=== PATIENT | female | born 1975 | race Caucasian/White ===

== ENCOUNTER 2022-02-08 08:26 | Outpatient (REF) | payer OTHER, SELFPAY ==
--- NOTE | 2022-02-08 08:31 | EMG_ITS ---
Bilateral median and ulnar motor and sensory studies were performed. Bilateral radial and sensory studies were performed and paraspinal muscles were tested. IMPRESSION: 1. Moderately severe bilateral median neuropathy across carpal tunnel. 2. Mild bilateral ulnar neuropathy across cubital tunnel. MD LIZ Shelton/JARAD / [id number]
== END 2022-02-08 08:27 | disposition home or self-care (01) ==
LOC: HO.NEURO 08:26
PROVIDERS: Visit Provider Internal Medicine
DX: G56.03 Carpal tunnel syndrome, bilateral upper limbs (principal)
CPT/HCPCS: 95886; 95911

== ENCOUNTER → 2022-04-05 11:00 | Outpatient (BNVA) | payer OTHER, SELFPAY | PROVIDERS: PCP Internal Medicine; Visit Provider Counselor Mental Health | DX: F98.8 Other specified behavioral and emotional disorders with onset usually occurring in childhood and adolescence (principal); F41.9 Anxiety disorder, unspecified; F32.A Depression, unspecified; E66.01 Morbid (severe) obesity due to excess calories | CPT/HCPCS: 90791 ==

== ENCOUNTER → 2022-04-19 14:49 | Outpatient (BNVA) | payer OTHER, SELFPAY | PROVIDERS: PCP Internal Medicine; Visit Provider Dietitian, Registered | DX: E66.01 Morbid (severe) obesity due to excess calories (principal); Z68.43 Body mass index [BMI] 50.0-59.9, adult | CPT/HCPCS: 97802 ==

== ENCOUNTER 2022-04-26 08:46 | Outpatient (REF) | payer OTHER, SELFPAY ==
--- NOTE | ~2022-04-26 | XR_ITS ---
EXAMINATION: XR CHEST CLINICAL INFORMATION: Preoperative evaluation. COMPARISON: 11/05/2017. TECHNIQUE: 2 views of the chest were obtained. FINDINGS: No significant abnormality is noted involving the heart, lungs, mediastinum, bony thorax or soft tissues. XR/XR chest 2V IMPRESSION: No acute cardiopulmonary findings. Stable chest x-ray compared to 11/05/2017.
--- NOTE | 2022-04-26 09:13 | ECG_ITS ---
Test Reason : z01.818 Blood Pressure : / mmHG Vent. Rate : 110 BPM Atrial Rate : 110 BPM P-R Int : 158 ms QRS Dur : 098 ms QT Int : 338 ms P-R-T Axes : 069 -33 068 degrees QTc Int : 457 ms Sinus tachycardia Left axis deviation Abnormal ECG When compared with ECG of 30-APR-2018 08:25, QRS axis Shifted left Heart rate has increased Referred By: Nina Beverly Electronically Signed By:ALBINO BOWLES
[2022-04-26 09:14] LABS: MANUAL DIFF FLAG NO
[2022-04-26 09:49] LABS: Basophils Absolute Auto 0.1 X10*3/uL (0.0-0.2); Basophils Percent Auto 0.5 % (0-2); Eosinophils Absolute Auto 0.3 X10*3/uL (0.0-0.4); Hematocrit 39.3 % (37.0-47.0); Hemoglobin 12.6 g/dl (12.0-16.0); Imm Gran Abs Auto 0.22 X10*3/uL (0.00-0.03); Imm Gran Pct Auto 1.5 % (0.0-0.4); Lymphocytes Absolute Auto 3.5 X10*3/uL (1.2-4.9); Lymphocytes Percent Auto 23.7 % (20-40); Mean Corpuscular HGB Conc 32.1 g/dl (31.0-35.0); Mean Corpuscular Hemoglobin 28.3 pg (27.0-33.0); Mean Corpuscular Volume 88.1 fL (80.0-98.0); Mean Platelet Volume 9.5 fL (9.4-12.3); Monocytes Absolute Auto 0.8 X10*3/uL (0.1-1.2); Monocytes Percent Auto 5.7 % (2-11); Neutrophils Absolute Auto 9.7 x10*3/uL (2.0-8.3); Neutrophils Percent Auto 66.6 % (45-73); Platelet Count 434 X10*3/uL (160-400); Red Blood Count 4.46 X10*6/uL (4.20-5.50); Red Cell Distribution Width 13.8 % (11.0-16.0); White Blood Count 14.6 X10*3/uL (4.8-10.8)
[2022-04-26 10:06] LABS: Estimated Average Glucose 235 mg/dL; Hemoglobin A1c % 9.8 %
[2022-04-26 10:10] LABS: Alanine Aminotransferase 18 U/L (0-31); Albumin Level 4.1 g/dL (3.5-5.0); Alkaline Phosphatase 111 U/L (39-117); Anion Gap 17 (12-20); Aspartate Amino Transferase 21 U/L (5-31); Bilirubin Total 0.9 mg/dL (0.0-1.0); Blood Urea Nitrogen 14 mg/dL (9-16); C Reactive Protein 3.94 mg/dL (< or = 0.50); Calcium 9.3 mg/dL (8.4-10.2); Carbon Dioxide 24 mmol/L (22-29); Chloride 97 mmol/L (96-108); Cholesterol 115 mg/dL; Estimated Glomerular Filt Rate > 60; Glucose Random 248 mg/dL (60-115); HDL Cholesterol 34 mg/dL; Iron 73 mcg/dL (30-160); LDL Cholesterol Calculated 64 mg/dl; Percent Iron Saturation 29 % (15-50); Potassium 4.3 mmol/L (3.3-5.1); Sodium 134 mmol/L (135-145); Total Iron Binding Capacity 252 mcg/dL (228-428); Total Protein 8.1 g/dL (6.5-8.0); Triglycerides 86 mg/dL; Unsaturated Iron Binding 179 ug/dL
[2022-04-26 10:38] LABS: Folate 13.5 ng/mL (> or = 4.0); Vitamin B12 356 pg/mL (200-900)
[2022-04-26 10:39] LABS: Ferritin 266 ng/mL (10-250); TSH reflex Free T4 1.12 uIU/mL (0.32-4.0); Vitamin D 25-OH Total 16.5 ng/mL (>30)
[2022-04-26 11:17] LABS: Insulin 22 uU/mL (2-29)
[2022-04-27 13:31] LABS: Calcium (PTHI) 9.3 mg/dL (8.6-10.2); PTHI 57 pg/mL (16-77)
[2022-04-30 14:06] LABS: Vitamin B1 <6 nmol/L (8-30)
[2022-04-30 19:21] LABS: Zinc 60 mcg/dL (60-130)
[2022-05-01 17:22] LABS: Vitamin A 26 mcg/dL (38-98)
== END 2022-04-26 08:47 | disposition home or self-care (01) ==
LOC: HO.LAB 08:46
PROVIDERS: PCP Internal Medicine; Visit Provider Physician Assistant
DX: Z01.818 Encounter for other preprocedural examination (principal); E11.9 Type 2 diabetes mellitus without complications; E66.01 Morbid (severe) obesity due to excess calories; E78.5 Hyperlipidemia, unspecified; G47.33 Obstructive sleep apnea (adult) (pediatric); I10 Essential (primary) hypertension; K21.9 Gastro-esophageal reflux disease without esophagitis; Z99.89 Dependence on other enabling machines and devices
CPT/HCPCS: 36415; 71046; 80053; 80061; 82306; 82607; 82728; 82746; 83036; 83525; 83540; 83970; 84425; 84443; 84590; 84630; 85025; 86140; 93005

== ENCOUNTER 2022-05-08 15:55 | Outpatient (REF) | payer OTHER, SELFPAY ==
[2022-05-10 13:03] LABS: H Pylori Breath Test Negative (Negative)
== END 2022-05-08 15:56 | disposition home or self-care (01) ==
LOC: HO.LNP 15:55
PROVIDERS: Visit Provider Physician Assistant
DX: Z01.818 Encounter for other preprocedural examination (principal)
CPT/HCPCS: 83013

== ENCOUNTER → 2022-05-09 07:21 | Outpatient (REF) | payer OTHER, SELFPAY ==
--- NOTE | 2022-05-09 07:24 | CA_ITS ---
Transthoracic Echocardiogram Patient (Last, First, Middle): Julia López, Gender: Female Date of : 1975 Age: 46 Procedure Date: 05/09/2022 Procedure Type: Transthoracic Echocardiogram Location: OP Height: 175.26 cm Weight: 160.57 kg BSA: 2.63 m2 Heart Rate: bpm BP: 115 / 70 mmHg Remnants Cutter: TO Referring MD: Nina Beverly PA-C [employer]: Chad Cheney MD Symptoms: R94.31 - Abnormal electrocardiogram [ECG] [EKG] Study Quality: Technically Difficult/Contrast ECG Rhythm: Sinus Conclusions: - 1. Normal LV systolic function with impaired relaxation filling pattern next 2. Mildly dilated left atrium 3. Mild mitral and calcification with normal cardiac valvular Doppler 4. Normal RV systolic pressure 5. No gross pericardial effusion Findings Procedure Information Contrast agent, definity, is being given per protocol without apparent complications. The quality of the study was technically difficult. The study quality is limited by patients body habitus. Left Ventricle Normal left ventricular size and systolic function. There is mildly increased left ventricular wall thickness. The visually estimated ejection fraction is between 60-65%. Spectral Doppler is indicative of an impaired relaxation filling pattern. E/E prime ratio is between 8 and 15 consistent with indeterminate filling pressures. Right Ventricle Normal right ventricular cavity size and systolic function. Atria The left atrium is mildly dilated. Interatrial shunt cannot be excluded. The right atrium is normal in size. Aortic Valve The aortic valve was not well visualized. The aortic valve structure and function is likely normal. There is no aortic valve stenosis. There is no aortic valve regurgitation. Mitral Valve There is mild anterior and posterior mitral leaflet thickening. There is mild mitral annular calcification. There is trace mitral valve regurgitation. There is no mitral valve stenosis. Pulmonic Valve The pulmonic valve was not well visualized. Tricuspid Valve Likely normal tricuspid valve structure and function. There is mild tricuspid valve regurgitation. The right ventricular systolic pressure is normal. The right ventricular systolic pressure is 27 mmHg. Normal right atrial pressure. There is no evidence of pulmonary hypertension. Great Vessels All visible segments of the aorta are normal in size. The pulmonary artery was not well visualized. Venous The inferior vena cava is normal in size and collapses greater than 50% with inspiration. Pericardium/Pleural There is no evidence of pericardial effusion. Prior Study Comparison No significant change compared to prior study dated: 04/30/2018. Measurements 2D Linear Measurements IVSd: 1.19 0.6-0.9/0.6-1.0 cm LVIDd: 4.92 3.9-5.3/4.2-5.9 cm LVIDd Index: 1.87 2.4-3.2/2.2-3.1 cm/m2 LVIDs: 3.34 2.0-3.6 cm LVPWd: 1.21 0.7-1.1 cm LA Diam: 3.50 2.7-3.8/3.0-4.0 cm LAIDs Index: 1.33 1.5-2.3 cm/m2 LV Mass: 284.05 67-162/88-224 g LV Mass Index: 108.00 43-95/49-115 g/m2 LVOT Diam: 2.20 3.0+(-)1.3 cm 2D Systolic Function EF 4C: 65.80 >55% EF 2C: 60.60 >55% EF BiP: 62.30 >55% Mitral Valve MV Pk E: 0.85 MV PK A: 0.97 MV Decel Time: 106.00 E/A: 0.90 E'Lateral: 8.92 E'Medial: 6.20 E/E' Med: 13.60 E/E' Lat: 9.50 PHT: 31.00 MVA PHT: 7.10 Decel [place]: 7.96 Aortic Valve AoV Pk Surjit: 1.35 AoV Mn Surjit: 1.01 AoV VTI: 0.25 AoV Pk Grad: 7.00 Aov Mn Grad: 4.00 HOMER Cont.VTI: 2.74 LVOT LVOT Pk Surjit: 1.05 LVOT Mn Surjit: 0.75 LVOT VTI: 0.18 LVOT Pk Grad: 4.00 LVOT Mn Grad: 3.00 LVOT Diam: 2.20 LVOT Area: 3.80 Diastolic Function MV Pk E: 0.85 MV Pk A: 0.97 E/A: 0.90 E'Medial: 6.20 E/E' Med: 13.60 E' Laterial: 8.92 E/E' Lat: 9.50 Right Ventricle TAPSE (mm): 20.70 TVS' Surjit: 13.60 Tricuspid Valve TR Pk Surjit: 2.43 TR Pk Grad: 24.00 RA Press: 3.00 RVSP: 27.00 Great Vessels Aorta Sinus of Valsalva: 3.57 2.0-3.5 cm Ao Asc: 3.20 2.1-3.4 cm Updated in Other Vendor System with Status of Final Chda Cheney MD electronically signed on 05/09/2022 5:30:32 PM with status of Final
== END ==
LOC: HO.CARD 07:21
PROVIDERS: Visit Provider Physician Assistant
DX: R94.31 Abnormal electrocardiogram [ECG] [EKG] (principal); I10 Essential (primary) hypertension
CPT/HCPCS: 36415; 83013; 93306; Q9957

== ENCOUNTER → 2022-05-16 14:35 | Outpatient (BNVA) | payer OTHER, SELFPAY | PROVIDERS: PCP Internal Medicine; Visit Provider Dietitian, Registered | DX: E66.01 Morbid (severe) obesity due to excess calories (principal); Z68.43 Body mass index [BMI] 50.0-59.9, adult | CPT/HCPCS: 97803 ==

== ENCOUNTER → 2022-05-22 07:57 | Outpatient (REF) | payer OTHER, SELFPAY ==
--- NOTE | ~2022-05-22 | NM_ITS ---
Lexiscan Myocardial perfusion study Indication: Preoperative cardiovascular evaluation Technique: The patient was brought in for a Lexiscan perfusion study on 05/22/2022 and was injected 0.4 mg of Lexiscan intravenously. Within a minute of this injection 45 mCi of sestamibi was given intravenously. Images were obtained using the SPECT gamma camera interlaced with the gating device. Images were obtained in supine position. Resting perfusion study was performed on 05/23/2022. Patient was administered 45 mCi of sestamibi intravenously at rest. Images were then obtained in supine position. Images were processed with the software and compared side to side in short axis, horizontal long axis and vertical long axis views. Total DLP 222mGy-cm. Findings: Raw acquisition reviewed. The stress perfusion study showed no significant perfusion abnormality. Both uncorrected as well as CT attenuation corrected images were reviewed. The gated study shows normal LV systolic function with calculated LVEF of 53%. LV cavity is normal in size. The gated study shows normal wall thickening and contraction of segments. Resting study shows no significant perfusion abnormality. Gating at rest reveals normal wall motion with ejection fraction at 60%. The findings are consistent with no reversible or fixed perfusion abnormality. NM/NM cardiolite stress test Impression: 1. Myocardial perfusion imaging study shows normal myocardial perfusion. No clear evidence of any ischemia or infarction. 2. Gated LVEF is 53% during stress and 60% during rest. 3. Transient ischemic dilatation not present. EKG component of the test reported separately.
--- NOTE | 2022-05-22 08:00 | CA_ITS ---
Acquisition Time: 2022-05-22 08:08:23 Total Exercise Time: 00:02:00 Test Indications: Abnormal ECG Medications: ATORVASTATIN BUPROPION DULAGUTIDE LISINOPRIL APRIMILTANT Protocol: LEXISCAN Max HR: 123 BPM 70% of Pred: 175 BPM Max BP: 124/078 mmHG Max Work Load: 1.0 METS Pharmacological stress test with Lexiscan injection, while sitting and kicking her legs, without anginal symptoms, without arrythmia, with normotensive response to injection, with nondiagnostic EKG for ischemia. In recovery she reported lightheadedness that was treated with Aminophylline 75mg IVP to reverse Lexiscan with resolution of symptom. Nuclear images pending. Test reviewed with Dr Prado. Referred By: Nina Beverly Overread By: SRUTHI WETZEL
== END ==
LOC: HO.CARD 07:57
PROVIDERS: Visit Provider Physician Assistant
DX: R94.31 Abnormal electrocardiogram [ECG] [EKG] (principal); E66.01 Morbid (severe) obesity due to excess calories; E11.9 Type 2 diabetes mellitus without complications; E78.5 Hyperlipidemia, unspecified; G47.33 Obstructive sleep apnea (adult) (pediatric); I10 Essential (primary) hypertension; K21.9 Gastro-esophageal reflux disease without esophagitis; Z99.89 Dependence on other enabling machines and devices
CPT/HCPCS: 78452; 93017; A9500; J0280; J2785

== ENCOUNTER → 2022-05-24 14:05 | Outpatient (BNVA) | payer OTHER, SELFPAY | PROVIDERS: PCP Internal Medicine; Referring Provider Internal Medicine; Visit Provider Internal Medicine Cardiovascular Disease | DX: Z01.810 Encounter for preprocedural cardiovascular examination (principal); R94.31 Abnormal electrocardiogram [ECG] [EKG] | CPT/HCPCS: 93005 ==

== ENCOUNTER → 2022-08-20 14:42 | Outpatient (BNVA) | payer OTHER, SELFPAY | PROVIDERS: PCP Internal Medicine; Visit Provider Physician Assistant | DX: Z98.84 Bariatric surgery status (principal) ==

== ENCOUNTER → 2022-09-20 16:30 | Outpatient (BNVA) | payer OTHER, SELFPAY | PROVIDERS: PCP Internal Medicine; Visit Provider Physician Assistant | DX: Z13.89 Encounter for screening for other disorder (principal) ==

== ENCOUNTER 2022-11-12 10:21 | Outpatient (REF) | payer OTHER, SELFPAY ==
--- NOTE | ~2022-11-12 | US_ITS ---
EXAMINATION: US COMPLETE ABDOMEN WITH LIVER ELASTOGRAPHY CLINICAL INFORMATION: Encounter for other preprocedural examination. COMPARISON: None available. TECHNIQUE: Real-time imaging of the abdominal viscera. Noninvasive ultrasound liver fibrosis assessment is performed using Jeff ElastPQ point quantification shear wave elastography (2D-SWE) with a C5-2 MHz transducer. Multiple elastography samples are obtained. FINDINGS: PANCREAS: The visualized pancreatic head and body have a slightly lobulated contour and are echogenic. The remainder of the pancreas is obscured from visualization by the overlying bowel gas. ABDOMINAL AORTA: The proximal, middle, and distal aortic segments are normal in caliber. INFERIOR VENA CAVA: Visualized portions are normal. LIVER: The liver demonstrates normal size, contour and increased echogenicity. No focal lesion or intrahepatic biliary duct dilatation. The right lobe measures 14.3 cm in length. The left lobe measures 10.7 cm in length. Portal flow is hepatopedal. Shear wave liver elastography median stiffness is 1.96 m/s (reference: normal median stiffness is 1.3 m/s or less). IQR/median stiffness to assess sampling precision is 0.02 (reference: good quality data set is IQR/median stiffness of 0.15 or less). GALLBLADDER: The gallbladder has been surgically removed. COMMON BILE DUCT: Normal in caliber measuring 0.5 cm in diameter. RIGHT KIDNEY: Normal. No hydronephrosis. No renal calculi or focal parenchymal lesions. The kidney measures 13.2 cm in maximum dimension. LEFT KIDNEY: Normal. No hydronephrosis. No renal calculi or focal parenchymal lesions. The kidney measures 11.8 cm in maximum dimension. SPLEEN: Normal. The spleen measures 13.1 cm in maximum dimension. FREE FLUID: None. US/US abdomen comp w elastography IMPRESSION: 1. Mild hepatic steatosis without focal lesion. 2. Cholecystectomy. 3. Liver elastography: Median liver stiffness measures 1.96 m/s corresponding to cACLD (suggestive). REFERENCE: Society of Radiologists in Ultrasound Liver Stiffness Thresholds (2020): LIVER STIFFNESS THRESHOLDS: *Liver Stiffness equal or less than 1.3 m/s: High probability of being normal. *Liver Stiffness less than 1.7 m/s: In the absence of other known clinical signs, rules out compensated advanced chronic liver disease. *Liver Stiffness 1.7-2.1 m/s: Suggestive of compensated advanced chronic liver disease but need further test for confirmation. *Liver Stiffness over 2.1 m/s: Rules in compensated advanced chronic liver disease. *Liver Stiffness over 2.4 m/s: Suggestive of clinically significant portal hypertension. QUALITY OF DATA SET: *IQR/Median value equal or less than 0.15 implies a quality data set. *IQR/Median value over 0.15 implies a poor quality data set. SIGNIFICANT CHANGE FROM PRIOR EXAM: Significant change if liver stiffness measurement is 10% or greater from prior exam. OTHER CONSIDERATIONS: The stage of liver fibrosis may be overestimated in the setting of acute hepatitis, liver inflammation, elevated liver function tests, hepatic vascular congestion, obstructive cholestasis, non-fasting state, and infiltrative diseases such as amyloidosis and lymphoma. In some patients with NAFLD, the liver stiffness thresholds for compensated advanced chronic liver disease may be lower. In causes other than viral hepatitis and NAFLD, liver stiffness thresholds are not well established.
== END 2022-11-12 10:22 | disposition home or self-care (01) ==
LOC: HO.US 10:21
PROVIDERS: PCP Internal Medicine; Visit Provider Physician Assistant
DX: Z01.818 Encounter for other preprocedural examination (principal); E66.01 Morbid (severe) obesity due to excess calories; I10 Essential (primary) hypertension; K21.9 Gastro-esophageal reflux disease without esophagitis
CPT/HCPCS: 76705; 76981

== ENCOUNTER 2022-11-13 13:00 | Outpatient (REF) | payer OTHER, SELFPAY ==
[2022-11-13 13:58] LABS: Estimated Average Glucose 166 mg/dL; Hemoglobin A1c % 7.4 %
== END 2022-11-13 13:01 | disposition home or self-care (01) ==
LOC: HO.LAB 13:00
PROVIDERS: PCP Internal Medicine; Visit Provider Physician Assistant
DX: E11.319 Type 2 diabetes mellitus with unspecified diabetic retinopathy without macular edema (principal); E66.01 Morbid (severe) obesity due to excess calories
CPT/HCPCS: 36415; 82947; 83036

== ENCOUNTER → 2022-11-26 09:30 | Outpatient (BNVA) | payer OTHER, SELFPAY | PROVIDERS: PCP Internal Medicine; Visit Provider Counselor Mental Health | DX: Z13.89 Encounter for screening for other disorder (principal) ==

== ENCOUNTER → 2022-12-03 09:00 | Outpatient (BNVA) | payer OTHER, SELFPAY | PROVIDERS: PCP Internal Medicine; Visit Provider Counselor Mental Health | DX: Z13.89 Encounter for screening for other disorder (principal) ==

== ENCOUNTER 2022-12-04 10:27 | Outpatient (REF) | payer OTHER, SELFPAY ==
--- NOTE | ~2022-12-04 | FL_ITS ---
PROCEDURE: XR FLUOROSCOPY UPPER GI WITH AIR CLINICAL INFORMATION: Obesity. Preop COMPARISON: None available. TECHNIQUE: Routine upper GI air-contrast study was performed in upright and lying position. FINDINGS: Following oral administration of thick barium and effervescent granules in upright view there is normal propagation of bolus from the oral cavity through the pharynx, esophagus into stomach without any evidence of obstruction, narrowing or stricture. On placing patient supine and prone lying the course, caliber and peristalsis of the stomach is normal. There are increased secretions in the stomach likely secondary to hyperacidity. There is a large gastroesophageal reflux without hiatal hernia. FLUOROSCOPY TIME: 1.4 minutes DOSE AREA PRODUCT: 46.442 uGy-m2 (microgray-meter squared) FL/FL upper GI w air IMPRESSION: Large gastroesophageal reflux without hiatal hernia.
== END 2022-12-04 10:28 | disposition home or self-care (01) ==
LOC: HO.XRAY 10:27
PROVIDERS: PCP Internal Medicine; Visit Provider Physician Assistant
DX: Z01.818 Encounter for other preprocedural examination (principal); E66.01 Morbid (severe) obesity due to excess calories; K21.9 Gastro-esophageal reflux disease without esophagitis; Z99.89 Dependence on other enabling machines and devices
CPT/HCPCS: 74246

== ENCOUNTER → 2022-12-10 10:05 | Outpatient (BNVA) | payer OTHER, SELFPAY | PROVIDERS: PCP Internal Medicine; Referring Provider Internal Medicine; Visit Provider Physician Assistant | DX: E11.319 Type 2 diabetes mellitus with unspecified diabetic retinopathy without macular edema (principal); E66.01 Morbid (severe) obesity due to excess calories; E11.9 Type 2 diabetes mellitus without complications ==

== ENCOUNTER → 2022-12-11 09:59 | Outpatient (BNVA) | payer OTHER, SELFPAY | PROVIDERS: PCP Internal Medicine; Visit Provider Surgery | DX: E11.319 Type 2 diabetes mellitus with unspecified diabetic retinopathy without macular edema (principal); E66.01 Morbid (severe) obesity due to excess calories; E11.9 Type 2 diabetes mellitus without complications ==

== ENCOUNTER → 2022-12-17 09:00 | Outpatient (BNVA) | payer OTHER, SELFPAY | PROVIDERS: PCP Internal Medicine; Visit Provider Counselor Mental Health ==

== ENCOUNTER → 2022-12-21 08:59 | Outpatient (BNVA) | payer OTHER, SELFPAY | PROVIDERS: PCP Internal Medicine; Visit Provider Surgery ==

== ENCOUNTER → 2022-12-24 09:00 | Outpatient (BNVA) | payer OTHER, SELFPAY | PROVIDERS: PCP Internal Medicine; Visit Provider Physician Assistant | DX: E11.319 Type 2 diabetes mellitus with unspecified diabetic retinopathy without macular edema (principal); E66.01 Morbid (severe) obesity due to excess calories; E11.9 Type 2 diabetes mellitus without complications ==

== ENCOUNTER → 2023-01-01 10:35 | Outpatient (BNVA) | payer OTHER, SELFPAY | PROVIDERS: PCP Internal Medicine; Visit Provider Surgery | DX: E11.319 Type 2 diabetes mellitus with unspecified diabetic retinopathy without macular edema (principal); E66.01 Morbid (severe) obesity due to excess calories; E11.9 Type 2 diabetes mellitus without complications; I10 Essential (primary) hypertension; E78.5 Hyperlipidemia, unspecified; G47.33 Obstructive sleep apnea (adult) (pediatric); Z99.89 Dependence on other enabling machines and devices; K21.9 Gastro-esophageal reflux disease without esophagitis ==

== ENCOUNTER → 2023-01-07 09:00 | Outpatient (BNVA) | payer OTHER, SELFPAY | PROVIDERS: PCP Internal Medicine; Visit Provider Counselor Mental Health | DX: F98.8 Other specified behavioral and emotional disorders with onset usually occurring in childhood and adolescence (principal); E66.01 Morbid (severe) obesity due to excess calories; F43.23 Adjustment disorder with mixed anxiety and depressed mood ==

== ENCOUNTER 2023-01-09 06:07 | Day surgery (SDC) | payer OTHER, SELFPAY ==
[2022-12-28 14:33] VITALS: BMI 46.5
[2023-01-01 10:22] LABS: MANUAL DIFF FLAG NO
[2023-01-01 10:55] LABS: Basophils Absolute Auto 0.1 X10*3/uL (0.0-0.2); Basophils Percent Auto 0.6 % (0-2); Eosinophils Absolute Auto 0.2 X10*3/uL (0.0-0.4); Hematocrit 44.1 % (37.0-47.0); Hemoglobin 13.8 g/dl (12.0-16.0); Imm Gran Abs Auto 0.09 X10*3/uL (0.00-0.03); Imm Gran Pct Auto 0.8 % (0.0-0.4); Lymphocytes Absolute Auto 2.8 X10*3/uL (1.2-4.9); Lymphocytes Percent Auto 25.1 % (20-40); Mean Corpuscular HGB Conc 31.3 g/dl (31.0-35.0); Mean Corpuscular Hemoglobin 27.1 pg (27.0-33.0); Mean Corpuscular Volume 86.6 fL (80.0-98.0); Mean Platelet Volume 9.2 fL (9.4-12.3); Monocytes Absolute Auto 0.6 X10*3/uL (0.1-1.2); Monocytes Percent Auto 5.5 % (2-11); Neutrophils Absolute Auto 7.4 x10*3/uL (2.0-8.3); Platelet Count 376 X10*3/uL (160-400); Red Blood Count 5.09 X10*6/uL (4.20-5.50); Red Cell Distribution Width 14.3 % (11.0-16.0); White Blood Count 11.3 X10*3/uL (4.8-10.8)
[2023-01-01 10:56] LABS: INTERNATIONAL NORM RATIO 1.1 (0.9-1.1); Prothrombin Time 12.9 SEC (10.0-13.1)
[2023-01-01 11:39] LABS: Estimated Average Glucose 148 mg/dL; Hemoglobin A1c % 6.8 %
[2023-01-01 12:31] LABS: Ferritin 192 ng/mL (10-250); TSH reflex Free T4 1.39 uIU/mL (0.32-4.0); Vitamin B12 505 pg/mL (200-900); Vitamin D 25-OH Total 23.8 ng/mL (>30)
[2023-01-01 12:43] LABS: Alanine Aminotransferase 14 U/L (0-31); Alkaline Phosphatase 85 U/L (39-117); Anion Gap 14 (12-20); Aspartate Amino Transferase 18 U/L (5-31); Bilirubin Total 0.9 mg/dL (0.0-1.0); Blood Urea Nitrogen 13 mg/dL (9-16); C Reactive Protein 2.54 mg/dL (< or = 0.50); Carbon Dioxide 28 mmol/L (22-29); Chloride 99 mmol/L (96-108); Cholesterol 101 mg/dL; Creatinine Clr Calc Pharmacy 134.3; Estimated Glomerular Filt Rate > 60; Glucose Random 141 mg/dL (60-115); HDL Cholesterol 34 mg/dL; LDL Cholesterol Calculated 53 mg/dl; Potassium 4.7 mmol/L (3.3-5.1); Sodium 136 mmol/L (135-145); Total Protein 7.9 g/dL (6.5-8.0); Triglycerides 73 mg/dL
[2023-01-02 13:39] LABS: Calcium (PTHI) 9.9 mg/dL (8.6-10.2); PTHI 32 pg/mL (16-77)
[2023-01-05 06:23] LABS: Zinc 84 mcg/dL (60-130)
[2023-01-05 15:34] LABS: Vitamin B1 <6 nmol/L (8-30)
[2023-01-06 22:19] LABS: Vitamin A 32 mcg/dL (38-98)
--- NOTE | 2023-01-08 10:00 | HO.ANESPROP2 ---
Documented by User: Brittani Reese NP 01/08/23 10:03 HPI - Anesthesia Eval Consult details Narrative: 47yo F for Gastrectomy Sleeve-EGD, Poss diaphragmatic hernia, Poss ventral hernia,Poss open. 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) Abnormal ECG (Acute) Preop cardiovascular exam (Acute) Diabetic retinopathy (Acute) Past Medical History Medical History (Updated 01/08/23 @ 10:01 by Brittani Reese NP) ADHD Anxiety and depression Diabetes mellitus Diabetic retinopathy GERD (gastroesophageal reflux disease) HTN (hypertension) with goal to be determined Hyperlipidemia Morbid obesity SOLE on CPAP Family History Family History Mother Diabetes Heart problem Father Hypertension Diabetes Surgical History Surgical History History of cholecystectomy Social History Social History Are you a primary primary care sales representative to a significant other at home: No Do you presently have visiting nurse or other home services: No Alcohol intake: never Patient Tobacco Use Status: Never used Tobacco Use of substances other than those prescribed or required for medical reasons: No Have you been hit, kicked, punched, or otherwise hurt by someone within the past year? If so, by whom?: No Are you DNR?: No Advance Directives: No Advance Directives Information Provided: Yes Advance Directives on File: No Recently lost weight without trying: No Nutrition Risks: No Nutritional Risk Patient : No FDLMP: unknown : No Poor oral hygiene: No Meds Allergies Allergy/AdvReac Type Severity Reaction Status Date / Time Penicillins Allergy Intermediate Shortness Verified 01/01/23 10:40 of Breath pt states no food allergies Allergy Unknown Unknown Uncoded 12/17/22 11:03 Home Medications Medication Instructions Recorded Confirmed Last Taken Type apremilast 30 mg tablet (Otezla) 30 mg PO BID 03/09/22 01/01/23 Unknown History bupropion HCl 300 mg 24 hr tablet, 300 mg PO DAILY 03/09/22 01/01/23 Unknown History extended release gabapentin 300 mg capsule 300 mg PO TID 03/09/22 01/01/23 Unknown History lisinopril 10 mg tablet 10 mg PO DAILY 03/09/22 01/01/23 Unknown History atorvastatin 40 mg tablet 40 mg PO DAILY 05/24/22 01/01/23 Unknown History dulaglutide 4.5 mg/0.5 mL mg subcut 05/24/22 12/24/22 Unknown History subcutaneous pen injector (Trulicity) fluoxetine 20 mg capsule 20 mg PO DAILY 05/24/22 01/01/23 Unknown History lorazepam 1 mg tablet 1 mg PO DAILY PRN Anxiety 05/24/22 01/01/23 Unknown History lisdexamfetamine 70 mg capsule 70 mg PO DAILY 11/12/22 01/01/23 Unknown History (Vyvanse) empagliflozin 10 mg tablet 10 mg PO DAILY 11/13/22 12/28/22 Unknown History (Jardiance) insulin regular hum U-500 conc 500 See Rx Instructions subcut .COMPLEX 12/24/22 01/01/23 Unknown History unit/mL(3 mL) subcut pen (Humulin R U-500 (Conc) Insulin Kwikpen) albuterol sulfate 90 mcg/actuation 2 puff inhalation QID PRN 12/28/22 01/01/23 Unknown History aerosol inhaler Shortness Of Breath Or Wheezing melatonin 10 mg tablet 10 mg PO BEDTIME PRN Insomnia 12/28/22 01/01/23 Unknown History Exam Exam Date and Time: January 08, 2023 1000 Height,Weight and Vital Signs: Height 5 ft 9 in Weight 142.882 kg Pertinent Lab Results Pertinent Lab Results: Laboratory Tests 01/01/23 01/01/23 01/01/23 10:20 10:20 10:20 WBC 11.3 H RBC 5.09 Hgb 13.8 Hct 44.1 MCV 86.6 MCH 27.1 MCHC 31.3 RDW 14.3 Plt Count 376 MPV 9.2 L Immature Gran % (Auto) 0.8 H Neut % (Auto) 66.0 Lymph % (Auto) 25.1 [place] % (Auto) 5.5 Eos % (Auto) 2.0 Baso % (Auto) 0.6 Lymph # (Auto) 2.8 [place] # (Auto) 0.6 Eos # (Auto) 0.2 Baso # (Auto) 0.1 Abs Immat Gran (auto) 0.09 H Absolute Neuts (auto) 7.4 Absolute Nucleated RBC 0.000 Nucleated RBC % (auto) 0.0 PT 12.9 INR 1.1 APTT 35.0 Sodium 136 Potassium 4.7 Chloride 99 Carbon Dioxide 28 Anion Gap 14 BUN 13 Creatinine 0.80 Estim Creat Clear Calc 134.3 Estimated GFR > 60 Random Glucose 141 H Estimat Average Glucose Hemoglobin A1c % Calcium 10.0 D Ferritin 192 Total Bilirubin 0.9 AST 18 ALT 14 Alkaline Phosphatase 85 C-Reactive Protein 2.54 H Total Protein 7.9 Albumin 4.0 Triglycerides 73 Cholesterol 101 LDL Cholesterol, Calc 53 HDL Cholesterol 34 Vitamin A Vitamin B1 Vitamin B12 505 25-OH Vitamin D Total 23.8 TSH 1.39 PTH Intact Calcium (PTH Intact) Zinc Blood Type Antibody Screen 01/01/23 01/01/23 01/01/23 10:20 10:20 10:20 WBC RBC Hgb Hct MCV MCH MCHC RDW Plt Count MPV Immature Gran % (Auto) Neut % (Auto) Lymph % (Auto) [place] % (Auto) Eos % (Auto) Baso % (Auto) Lymph # (Auto) [place] # (Auto) Eos # (Auto) Baso # (Auto) Abs Immat Gran (auto) Absolute Neuts (auto) Absolute Nucleated RBC Nucleated RBC % (auto) PT INR APTT Sodium Potassium Chloride Carbon Dioxide Anion Gap BUN Creatinine Estim Creat Clear Calc Estimated GFR Random Glucose Estimat Average Glucose 148 Hemoglobin A1c % 6.8 Calcium Ferritin Total Bilirubin AST ALT Alkaline Phosphatase C-Reactive Protein Total Protein Albumin Triglycerides Cholesterol LDL Cholesterol, Calc HDL Cholesterol Vitamin A 32 L Vitamin B1 <6 L Vitamin B12 25-OH Vitamin D Total TSH PTH Intact 32 Calcium (PTH Intact) 9.9 Zinc Blood Type Antibody Screen 01/01/23 01/01/23 10:20 10:22 WBC RBC Hgb Hct MCV MCH MCHC RDW Plt Count MPV Immature Gran % (Auto) Neut % (Auto) Lymph % (Auto) [place] % (Auto) Eos % (Auto) Baso % (Auto) Lymph # (Auto) [place] # (Auto) Eos # (Auto) Baso # (Auto) Abs Immat Gran (auto) Absolute Neuts (auto) Absolute Nucleated RBC Nucleated RBC % (auto) PT INR APTT Sodium Potassium Chloride Carbon Dioxide Anion Gap BUN Creatinine Estim Creat Clear Calc Estimated GFR Random Glucose Estimat Average Glucose Hemoglobin A1c % Calcium Ferritin Total Bilirubin AST ALT Alkaline Phosphatase C-Reactive Protein Total Protein Albumin Triglycerides Cholesterol LDL Cholesterol, Calc HDL Cholesterol Vitamin A Vitamin B1 Vitamin B12 25-OH Vitamin D Total TSH PTH Intact Calcium (PTH Intact) Zinc 84 Blood Type O Positive Antibody Screen NEGATIVE Narrative Narrative: EKG 05/2022 ?Sinus tachycardia 100 beats per minute, left axis deviation, QTC 471 milliseconds. ECHO 05/2022 Conclusions: - 1. Normal LV systolic function with impaired relaxation filling pattern next 2. Mildly dilated left atrium ? 3. Mild mitral and calcification with normal cardiac valvular? ? Doppler? 4. Normal RV systolic pressure ? 5. No gross pericardial effusion ? NM cardiolite stress test 05/2022 Impression: ? 1.? Myocardial perfusion imaging study shows normal myocardial perfusion. No clear evidence of any ischemia or infarction. 2.? Gated LVEF is 53% during stress and 60% during rest. 3. Transient ischemic dilatation not present. ? EKG component of the test reported separately. Assessment and Plan Assessment Anesthesia Assessment: Chart Reviewed Documented by User: Ranjit Wiley MD 01/09/23 08:24 [facility] Past Medical History Medical History (Updated 01/08/23 @ 10:01 by Brittani Reese NP) ADHD Anxiety and depression Diabetes mellitus Diabetic retinopathy GERD (gastroesophageal reflux disease) HTN (hypertension) with goal to be determined Hyperlipidemia Morbid obesity SOLE on CPAP Patient : No Family History Family History Mother Diabetes Heart problem Father Hypertension Diabetes Family history of problems with anesthesia: No Surgical History Surgical History History of cholecystectomy History of Problems with Anesthesia: No Social History Social History Are you a primary primary care sales representative to a significant other at home: No Do you presently have visiting nurse or other home services: No Alcohol intake: never Patient Tobacco Use Status: Never used Tobacco Use of substances other than those prescribed or required for medical reasons: No Have you been hit, kicked, punched, or otherwise hurt by someone within the past year? If so, by whom?: No Are you DNR?: No Advance Directives: No Advance Directives Information Provided: Yes Advance Directives on File: No Recently lost weight without trying: No Nutrition Risks: No Nutritional Risk Patient : No FDLMP: unknown : No Poor oral hygiene: No Meds Allergies Allergy/AdvReac Type Severity Reaction Status Date / Time Penicillins Allergy Intermediate Shortness Verified 01/01/23 10:40 of Breath pt states no food allergies Allergy Unknown Unknown Uncoded 12/17/22 11:03 Home Medications Medication Instructions Recorded Confirmed Last Taken Type apremilast 30 mg tablet (Otezla) 30 mg PO BID 03/09/22 01/01/23 Unknown History bupropion HCl 300 mg 24 hr tablet, 300 mg PO DAILY 03/09/22 01/01/23 Unknown History extended release gabapentin 300 mg capsule 300 mg PO TID 03/09/22 01/01/23 Unknown History lisinopril 10 mg tablet 10 mg PO DAILY 03/09/22 01/01/23 Unknown History atorvastatin 40 mg tablet 40 mg PO DAILY 05/24/22 01/01/23 Unknown History dulaglutide 4.5 mg/0.5 mL mg subcut 05/24/22 12/24/22 Unknown History subcutaneous pen injector (Trulicity) fluoxetine 20 mg capsule 20 mg PO DAILY 05/24/22 01/01/23 Unknown History lorazepam 1 mg tablet 1 mg PO DAILY PRN Anxiety 05/24/22 01/01/23 Unknown History lisdexamfetamine 70 mg capsule 70 mg PO DAILY 11/12/22 01/01/23 Unknown History (Vyvanse) empagliflozin 10 mg tablet 10 mg PO DAILY 11/13/22 12/28/22 Unknown History (Jardiance) insulin regular hum U-500 conc 500 See Rx Instructions subcut .COMPLEX 12/24/22 01/01/23 Unknown History unit/mL(3 mL) subcut pen (Humulin R U-500 (Conc) Insulin Kwikpen) albuterol sulfate 90 mcg/actuation 2 puff inhalation QID PRN 12/28/22 01/01/23 Unknown History aerosol inhaler Shortness Of Breath Or Wheezing melatonin 10 mg tablet 10 mg PO BEDTIME PRN Insomnia 12/28/22 01/01/23 Unknown History Exam Airway Mallampati Class: I TM Dist: >3cm Neck ROM: Full Heart: ok Lungs: ok Assessment and Plan Assessment Anesthesia Assessment: Anesthesia Plan Discussed Final Anesthetic Review Family History of Problems with Anesthesia: No History of Problems with Anesthesia: No NPO: Yes ASA Class: III Final Preanesthetic Review: No Changes in Pt Med Stat, Meds/Allgs Chart Reviewed, Consent Obtained/Reviewed and Anes Risks/Benef Reviewed Patient Risk: High Procedure Risk: Intermediate Anesthetic Plan Anesthetic Plan: GA and Agree w/ Assess. and Plan Disposition: Standard PACU
[2023-01-08 14:49] LABS: COVID-19 Test Negative (Negative); IDNOW Serial# 9DB6401D
--- NOTE | 2023-01-08 16:52 | MHC.SHP ---
Pre-Procedural Eval Section A Date of Service: 01/08/23 The patient is an INPATIENT: Yes The History & Physical has been completed within 30 days and I have reviewed it.: Yes Section B Chief Complaint: Morbid (severe) obesity due to excess calories Allergies: Allergies Allergy/AdvReac Type Severity Reaction Status Date / Time Penicillins Allergy Intermediate Shortness Verified 01/01/23 10:40 of Breath pt states no food allergies Allergy Unknown Unknown Uncoded 12/17/22 11:03 Plan I have reviewed the history and physical and performed a pertinent physical examination on my patient. No changes have occurred unless specified. Time Spent With Patient Time: Total time managing care of this patient today ____ minutes.
--- NOTE | 2023-01-08 16:53 | P.OP_ITS ---
Operative Note Operative Note Date of Service: 01/09/23 Narrative: Preop diagnosis: [Morbid obesity, obstructive sleep apnea, type 2 diabetes, hypertension, NAFLD, hyperlipidemia] Postop diagnosis: [Metastatic adenocarcinoma to the liver, possibly biliary primary to the live; left upper quadrant adhesive disease/scar tissue;, GERD and gastritis were noted on EGD] Procedure: [Diagnostic laparoscopy, lysis of adhesions, intraoperative EGD with biopsies] Surgeon: Darci Sanders MD Assist: [Katlin Pineda PA-C] Anesthesia: [GET, Marcaine, 0.5% with epi] Estimated blood loss: [3cc] Specimen: [1) liver nodules from the left lobe of the liver; EGD biopsies: Antrum and gastric body] Intraoperative findings: [1) 3 separate left liver lobe nodules ranging in size from 3-6 mm were encountered and biopsied. Frozen section demonstrated adenocarcinoma, possibly consistent with biliary primary; extensive left upper quadrant adhesions were noted requiring lysis of adhesions for 27 minutes] Indications: [The patient is a 47-year-old woman with a longstanding struggle with obesity that has been refractory to medical management. She presented to the surgical weight loss program with a BMI of 55.1/373.9 and reports her heaviest weight is 404 lb. She presented with the aforementioned comorbidities with an interest in bariatric surgery. After reviewing options and providing Education resulted in affective weight loss, the patient wanted to proceed with a laparoscopic sleeve gastrectomy, possible hiatal hernia repair, intraoperative upper endoscopy and possible ventral hernia repair. We reviewed the inherent risks of this procedure which include, but are not limited to: Bleeding that could require another operation or blood transfusion; the inherent risks of transfusion reaction infectious disease from blood transfusions; the risk of staple line leaks that could cause sepsis, multi-system organ failure and ; the risk of mesenteric or deep vein thrombosis of the lower extremities that could cause a fatal pulmonary embolism was reviewed; the risk of GERD that could require conversion to gastric bypass was discussed; the risk of recurrent hiatal hernia, especially in the setting of weight regain was reviewed. The risk of weight regain if maladaptive eating and sedentary behavior continue was discussed. The importance of proper diet and increased activity to augment surgical weight loss and the fact that no operation would result in weight loss of poor dietary decisions and sedentary behavior are resumed were discussed at length and apparently understood. The patient had the option of having an senior power plant operator present and declined this option.] Procedure: [The patient was identified in the preoperative holding area and again an operating suite 6. The patient denied interval change to her history and was placed supine on the table after confirming her identity. She was induced in general endotracheal anesthesia administered with excellent effect. A footboard was utilized and appropriate time-out performed. She was widely prepped and draped in the usual manner using chlorprep. Preemptive local was used at all trocar insertion sites. I began in the patient's left upper quadrant after raising a skin wheal, made a stab incision and placed a Veress needle without incident. An appropriate drop test was performed and a pneumoperitoneum was obtained with carbon dioxide to 15 mmHg. Preemptive local was again used in the epigastrium and the 5 mm 0 degree scope used over an Optiview trocar to access the abdomen without incident. The Veress needle was examined and it missed extensive adhesions in the left upper quadrant. Addit ional 5 mm ports to facilitate lysis of adhesions was performed over 27 minutes to demonstrate the patient's anatomy. The remaining 5 mm ports were placed without incident and the epigastric port upsized to a 12 mm. Patient was then positioned in reverse Trendelenburg and the abdomen examined. In the left lobe of the liver, a 6 mm hard, exophytic growth was noted. A smaller satellite lesion approximately 3 mm and is separate 3 mm nodule by the falciform ligament were all noted. A small 3 mm nodule was also noted in the right lobe of the liver. Given their gross morphology, concern for malignancy/neoplasia was raised and biopsies were performed with frozen section. During the time frame, dissection was begun at the esophageal fat pad which was freed up to demonstrate In communication with Dr. Lebron, the frozen section demonstrated adenocarcinoma was concerning for possible biliary primary. Given this, the bariatric procedure was aborted and the patient was returned to neutral position and the 12 mm trocar closed with a suture Passer and 0 Polysorb suture. At this point I broke scrub to perform an on-table EGD to assess for gastroesophageal or duodenal etiology to the adenocarcinoma. The Olympus 160 gastroscope was inserted per os manually without difficulty under direct vision. Bilious drainage was noted in the stomach. Z-line was at about 38 cm and irregular consistent with GERD but no hiatal hernias noted. Scope was advanced around the 2nd portion of the duodenum and the NPO Will was identified and photographed in grossly appeared normal as did the duodenum and duodenal bulb. Gastritis was noted in the antrum and body and biopsies were performed with cold forceps to assess for significant pathology. After retro flexing to examine the lesser curve, anterior, posterior gastric wall in fundus, the scope was returned to neutral, used to assess for hemostasis and the stomach deflated. The scope was then withdrawn and the remaining esophagus appeared grossly normal. Patient tolerated the procedures well and was sent to PACU in stable condition. All sponge needle instrument counts were correct x2 CEA and CA 19 9 were ordered in PACU. At the patient's request, I contacted her ex-, Corbin at [phone] to brief him a on the operation as the patient requested. Corbin noted that he was present with the patient's father in the hospital and I met with them an a consultation room; I explained the unexpected findings and need to determine a primary. His questions answered and plan to determine the primary was discussed and apparently understood.]
[2023-01-09] VITALS (13 sets, daily range): BP systolic 112–134; BP diastolic 61–73; PULSE 78–101; RESP 16; TEMP 36.3–36.6; O2SAT 97–100
[2023-01-09 06:30] LABS: UPreg QC Valid YES; Urine Pregnancy NEGATIVE (NEGATIVE)
[2023-01-09] MEDS: Aprepitant 32 MG/4.4 ML VIAL IVPUSH (06:50)
[2023-01-09] MEDS: Lactated Ringers 1,000 ML 150 ML IVCONT (06:52)
[2023-01-09 07:01] LABS: Glucose, Whole Blood 142 mg/dL (60-115)
--- NOTE | 2023-01-09 11:33 | PM.EVENT ---
Event Note Date of Service: 01/09/23 Event Note: I met with the patient in PACU and explained the unexpected findings of several small adenocarcinoma in her left liver lobe and 1 in the right. I explained that when an unexpected malignancy is encountered we do not recommend bariatric surgery but rather finding the primary malignancy since finding the cancer earlier increases the risk of survival and cure. Patient's questions seemed to be satisfactorily answered and she believes that she will be more comfortable at home. Explained about pain management and diet. I also explained that, occasionally additional testing on biopsies is required which may take longer than 1 week. She seemed understand and is cleared for discharge home. Time Spent With Patient Time: Total time managing care of this patient today ____ minutes.
[2023-01-09 11:35] LABS: Carcinoembryonic Antigen < 1.73 ng/mL
[2023-01-11 12:08] LABS: Carbohydrate Antigen 19-9 14 U/mL (<34)
== END 2023-01-09 13:05 | disposition home or self-care (01) ==
LOC: HO.SSS 06:07 → HO.SSSA 10:32 → HO.SSS 15:26
PROVIDERS: Nurse Practitioner; Physician Assistant Surgical; PCP Internal Medicine; Visit Provider Surgery
PROC: (CPT 43845; principal; 2023-01-09 07:30)
DX: E66.01 Morbid (severe) obesity due to excess calories (principal); Z68.42 Body mass index [BMI] 45.0-49.9, adult; Z53.09 Procedure and treatment not carried out because of other contraindication; D13.4 Benign neoplasm of liver; K56.50 Intestinal adhesions [bands], unspecified as to partial versus complete obstruction; K29.50 Unspecified chronic gastritis without bleeding; E78.5 Hyperlipidemia, unspecified; G47.33 Obstructive sleep apnea (adult) (pediatric); I10 Essential (primary) hypertension; E11.319 Type 2 diabetes mellitus with unspecified diabetic retinopathy without macular edema; K21.9 Gastro-esophageal reflux disease without esophagitis; K76.0 Fatty (change of) liver, not elsewhere classified; K29.70 Gastritis, unspecified, without bleeding; Z79.4 Long term (current) use of insulin; Z99.89 Dependence on other enabling machines and devices; Z88.0 Allergy status to penicillin; Z79.899 Other long term (current) drug therapy; Z90.49 Acquired absence of other specified parts of digestive tract; Z20.822 Contact with and (suspected) exposure to COVID-19
CPT/HCPCS: 43775; 47379; 43239; 49329; 36415; 80053; 80061; 81025; 82306; 82378; 82607; 82728; 82947; 83036; 83970; 84425; 84443; 84590; 84630; 85025; 85610; 85730; 86140; 86301; 86850; 86900; 86901; 87635; 88161; 88305; 88307; 88313; 88331; 88333; 88341; 88342; 88360; C9145; J0131; J1170; J1956; J2250; J2405; J3010

== ENCOUNTER → 2023-01-14 09:00 | Outpatient (BNVA) | payer OTHER, SELFPAY | PROVIDERS: PCP Internal Medicine; Visit Provider Counselor Mental Health | DX: F98.8 Other specified behavioral and emotional disorders with onset usually occurring in childhood and adolescence (principal); E66.01 Morbid (severe) obesity due to excess calories; F43.23 Adjustment disorder with mixed anxiety and depressed mood ==

== ENCOUNTER → 2023-01-17 11:10 | Outpatient (BNVA) | payer OTHER, SELFPAY | PROVIDERS: PCP Internal Medicine; Visit Provider Surgery ==

== ENCOUNTER → 2023-01-28 10:00 | Outpatient (BNVA) | payer OTHER, SELFPAY | PROVIDERS: PCP Internal Medicine; Visit Provider Counselor Mental Health | DX: F90.2 Attention-deficit hyperactivity disorder, combined type (principal); F43.20 Adjustment disorder, unspecified ==

== ENCOUNTER → 2023-02-04 10:00 | Outpatient (BNVA) | payer OTHER, SELFPAY | PROVIDERS: PCP Internal Medicine; Visit Provider Counselor Mental Health | DX: F98.8 Other specified behavioral and emotional disorders with onset usually occurring in childhood and adolescence (principal); E66.01 Morbid (severe) obesity due to excess calories; F43.23 Adjustment disorder with mixed anxiety and depressed mood ==

== ENCOUNTER 2023-02-11 11:10 | Outpatient (AMB) | payer OTHER, SELFPAY ==
--- NOTE | 2023-02-11 11:14 | A.OFFWM_ITS ---
Intake Intake Visit Reasons: VIDEO f/u Allergies Penicillins Allergy (Intermediate, Verified 01/17/23 11:40) Shortness of Breath pt states no food allergies Allergy (Unknown, Uncoded 01/14/23 10:21) Unknown [facility] Medical History (Updated 01/17/23 @ 17:15 by Cata Rinaldi MD) Adenocarcinoma determined by biopsy of liver ADHD Anxiety and depression Diabetes mellitus Diabetic retinopathy GERD (gastroesophageal reflux disease) HTN (hypertension) with goal to be determined Hyperlipidemia Morbid obesity SOLE on CPAP Surgical History History of cholecystectomy Family History Mother Diabetes Heart problem Father Hypertension Maternal Grandmother Primary cancer of bone marrow Maternal Grandfather Prostate cancer Social History Are you a primary interior plant caretaker to a significant other at home: No Do you presently have visiting nurse or other home services: No Alcohol intake: never Patient Tobacco Use Status: Never used Tobacco Behavioral Health Assessment Weight Management Therapy Therapy Notes Details -PT presents for a f/up counseling session as part of mental health support at weight management program. -PT reports she is reconsidering her decision about getting bariatric surgery. INTERVENTIONS: cognitive processing therapy. Processed doubts and factors around decision for not getting surgery. validatd and normalized feelings. Explored options and encouraged PT to share her concerns and ask about options to [facility]- Provider. RESPONSE: Engaged, involved. PLAN: continue sessions every 1-2 weeks. Presenting Concerns Referral Source MH provider from [facility]. Reason for referral Continue counseling support as part of weight-loss surgery process and due to current MH challenges. Precipitating Event Pt reports she has been adjusting to several losses in past years. In June, her dog passed and since then its been hard to cope with grief Sx. She also was w/out ADHD meds for a short period of time, then medication had to be changed and she's adjusting to a new medication. 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 We will support client with 3 main goals: 1) improve organization methods, 2)develop/engage in exercise rout ine at least 3-4 times per week and 3) Grief/adjusting to life changes. Telehealth Telehealth Location of provider rendering services: other ([facility], [place], [place]) Location of patient: address on file Patient Identification confirmed using: Name, : Yes Telehealth method: video Patient verbally consented to treatment: Yes Patient verbally consented to billing insurance company: Yes Patient informed of any privacy concerns related to visit: Yes Minutes spent on Phone/Video with Pt.: 60 Coding Level of Care Code Established Pt Tele Psytx >53 mins ([id number]) Patient Type Established Diagnoses ADHD F90.2 Attention deficit-hyperactivity disorder type: combined inattentive- hyperactive Adjustment disorder F43.22 Adjustment disorder type: with anxious mood Time Spent (min) 60
== END 2023-02-11 12:06 | disposition home or self-care (01) ==
LOC: HO.HBST 11:10
PROVIDERS: PCP Internal Medicine; Visit Provider Counselor Mental Health
DX: F90.2 Attention-deficit hyperactivity disorder, combined type (principal); F43.22 Adjustment disorder with anxiety
CPT/HCPCS: 90837

== ENCOUNTER → 2023-02-11 11:10 | Outpatient (BNVA) | payer OTHER, SELFPAY | PROVIDERS: PCP Internal Medicine; Visit Provider Counselor Mental Health | DX: F98.8 Other specified behavioral and emotional disorders with onset usually occurring in childhood and adolescence (principal); E66.01 Morbid (severe) obesity due to excess calories; F43.23 Adjustment disorder with mixed anxiety and depressed mood ==

== ENCOUNTER 2023-02-18 09:00 | Outpatient (AMB) | payer SELFPAY ==
--- NOTE | 2023-02-18 13:03 | MHC.WMTHER ---
Intake Intake Visit Reasons: VIDEO f/u Allergies Penicillins Allergy (Intermediate, Verified 01/17/23 11:40) Shortness of Breath pt states no food allergies Allergy (Unknown, Uncoded 01/14/23 10:21) Unknown [facility] Medical History (Updated 01/17/23 @ 17:15 by Cata Rinaldi MD) Adenocarcinoma determined by biopsy of liver ADHD Anxiety and depression Diabetes mellitus Diabetic retinopathy GERD (gastroesophageal reflux disease) HTN (hypertension) with goal to be determined Hyperlipidemia Morbid obesity SOLE on CPAP Surgical History History of cholecystectomy Family History Mother Diabetes Heart problem Father Hypertension Maternal Grandmother Primary cancer of bone marrow Maternal Grandfather Prostate cancer Social History Are you a primary director of healthcare systems to a significant other at home: No Do you presently have visiting nurse or other home services: No Alcohol intake: never Patient Tobacco Use Status: Never used Tobacco Behavioral Health Assessment Weight Management Therapy Therapy Notes Details -PT presents for a f/up counseling session as part of mental health support at weight management program. -PT reports she has been stressed and overwhelmed.. INTERVENTIONS: cognitive processing therapy. Discussed functioning and sources of stress. Problem solving strategies. Validated and normalized feelings. PT RESPONSE: Active, engaged. PT responded well to interventions. PLAN: continue sessions every 1-2 weeks. Presenting Concerns Referral Source MH provider from [facility]. Reason for referral Continue counseling support as part of weight-loss surgery process and due to current MH challenges. Precipitating Event Pt reports she has been adjusting to several losses in past years. In June, her dog passed and since then its been hard to cope with grief Sx. She also was w/out ADHD meds for a short period of time, then medication had to be changed and she's adjusting to a new medication. Assessment & Plan Assessment & Plan (1) ADHD: Code(s): F90.9 - Attention-deficit hyperactivity disorder, unspecified type Qualifiers: Attention deficit-hyperactivity disorder type: combined inattentive-hyperactive Qualified Code(s): F90.2 - Attention-deficit hyperactivity disorder, combined type (2) Adjustment disorder: Code(s): F43.20 - Adjustment disorder, unspecified Plan Pt will continue with weekly counseling sessions. We will support client with 3 main goals: 1) improve organization methods, 2)develop/engage in exercise routine at least 3-4 times per week and 3) Grief/adjusting to life changes. Telehealth Telehealth Location of provider rendering services: other ([facility], [place], [place]) Location of patient: address on file Patient Identification confirmed using: Name, : Yes Telehealth method: video Patient verbally consented to treatment: Yes Patient verbally consented to billing insurance company: Yes Patient informed of any privacy concerns related to visit: Yes Minutes spent on Phone/Video with Pt.: 45 Coding Level of Care Code Established Pt Tele Psytx 45 mins ([id number]) Patient Type Established Diagnoses ADHD F90.2 Attention deficit-hyperactivity disorder type: combined inattentive-hyperactive Adjustment disorder F43.20 Time Spent (min) 45 Comment 9:15-10:00am
== END 2023-02-18 13:02 | disposition home or self-care (01) ==
LOC: HO.HBST 10:45
PROVIDERS: PCP Internal Medicine; Visit Provider Counselor Mental Health
DX: F90.2 Attention-deficit hyperactivity disorder, combined type (principal); F43.20 Adjustment disorder, unspecified
CPT/HCPCS: 90834

== ENCOUNTER → 2023-02-18 09:00 | Outpatient (BNVA) | payer SELFPAY | PROVIDERS: PCP Internal Medicine; Visit Provider Counselor Mental Health | DX: F98.8 Other specified behavioral and emotional disorders with onset usually occurring in childhood and adolescence (principal); E66.01 Morbid (severe) obesity due to excess calories; F43.23 Adjustment disorder with mixed anxiety and depressed mood ==

== ENCOUNTER 2023-03-11 09:00 | Outpatient (AMB) | payer OTHER, SELFPAY ==
--- NOTE | 2023-03-13 10:21 | A.OFFWM_ITS ---
Intake Intake Visit Reasons: VIDEO f/u Allergies Penicillins Allergy (Intermediate, Verified 01/17/23 11:40) Shortness of Breath pt states no food allergies Allergy (Unknown, Uncoded 01/14/23 10:21) Unknown [facility] Medical History (Updated 01/17/23 @ 17:15 by Cata Rinaldi MD) Adenocarcinoma determined by biopsy of liver ADHD Anxiety and depression Diabetes mellitus Diabetic retinopathy GERD (gastroesophageal reflux disease) HTN (hypertension) with goal to be determined Hyperlipidemia Morbid obesity SOLE on CPAP Surgical History History of cholecystectomy Family History Mother Diabetes Heart problem Father Hypertension Maternal Grandmother Primary cancer of bone marrow Maternal Grandfather Prostate cancer Social History Are you a primary chronic care nurse to a significant other at home: No Do you presently have visiting nurse or other home services: No Alcohol intake: never Patient Tobacco Use Status: Never used Tobacco Behavioral Health Assessment Weight Management Therapy Therapy Notes Details -PT presents for a f/up counseling session -PT reports she has gained some weight and since has been out of WM-meal plan has had sugar spikes and other illness-related symptoms have been bothering her. INTERVENTIONS: Reflective listening, processed struggles/triggers. Gently confront behaviors/consequences and barriers to remain consistent. Created a coping plan and identified ways how seh can start again engaging in behaviors that will lead to achieve personal/health goals. CBT-based interventions were used. PT RESPONSE: Active, engaged, cooperative. PLAN: Pt continues feeling unsure about if bariatric surgery is the right move for her, but after she resolves insurance issues she will set up a f/up jase with [facility]-provider and discuss fears/options and create a plan. Presenting Concerns Referral Source MH provider from [facility]. Reason for referral Continue counseling support as part of weight-loss surgery process and due to current MH challenges. Precipitating Event Pt reports she has been adjusting to several losses in past years. In June, her dog passed and since then its been hard to cope with grief Sx. She also was w/out ADHD meds for a short period of time, then medication had to be changed and she's adjusting to a new medication. Assessment & Plan Assessment & Plan (1) ADHD: Code(s): F90.9 - Attention-deficit hyperactivity disorder, unspecified type Qualifiers: Attention deficit-hyperactivity disorder type: combined inattentive- hyperactive Qualified Code(s): F90.2 - Attention-deficit hyperactivity disorder, combined type (2) Adjustment disorder: Code(s): F43.20 - Adjustment disorder, unspecified Plan Pt will continue with weekly counseling sessions. We will support client with 3 main goals: 1) improve organization methods, 2)develop/engage in exercise routine at least 3-4 times per week and 3) Grief/adjusting to life changes. Telehealth Telehealth Location of provider rendering services: other ([facility], [place], [place]) Location of patient: address on file Patient Identification confirmed using: Name, : Yes Telehealth method: video Patient verbally consented to treatment: Yes Patient verbally consented to billing insurance company: Yes Patient informed of any privacy concerns related to visit: Yes Minutes spent on Phone/Video with Pt.: 45 Coding Level of Care Code Established Pt Tele Psytx 45 mins ([id number]) Patient Type Established Diagnoses ADHD F90.2 Attention deficit-hyperactivity disorder type: combined inattentive- hyperactive Adjustment disorder F43.20 Time Spent (min) 45 Comment 9:30-10:15AM.
== END 2023-03-13 10:29 | disposition home or self-care (01) ==
LOC: HO.HBST 12:04
PROVIDERS: PCP Internal Medicine; Visit Provider Counselor Mental Health
DX: F90.2 Attention-deficit hyperactivity disorder, combined type (principal); F43.20 Adjustment disorder, unspecified
CPT/HCPCS: 90834

== ENCOUNTER → 2023-03-11 09:00 | Outpatient (BNVA) | payer OTHER, SELFPAY | PROVIDERS: PCP Internal Medicine; Visit Provider Counselor Mental Health | DX: F98.8 Other specified behavioral and emotional disorders with onset usually occurring in childhood and adolescence (principal); E66.01 Morbid (severe) obesity due to excess calories; F43.23 Adjustment disorder with mixed anxiety and depressed mood ==

== ENCOUNTER 2023-03-18 09:12 | Outpatient (AMB) | payer OTHER, SELFPAY ==
--- NOTE | 2023-03-18 09:43 | A.OFFWM_ITS ---
Intake Intake Visit Reasons: VIDEO f/u Allergies Penicillins Allergy (Intermediate, Verified 03/19/23 09:55) Shortness of Breath pt states no food allergies Allergy (Unknown, Uncoded 01/14/23 10:21) Unknown [facility] Medical History (Updated 01/17/23 @ 17:15 by Cata Rinaldi MD) Adenocarcinoma determined by biopsy of liver Diabetic retinopathy Anxiety and depression GERD (gastroesophageal reflux disease) OSLE on CPAP ADHD Hyperlipidemia HTN (hypertension) with goal to be determined Diabetes mellitus Morbid obesity Surgical History History of cholecystectomy Family History Mother Diabetes Heart problem Father Hypertension Maternal Grandmother Primary cancer of bone marrow Maternal Grandfather Prostate cancer Social History Are you a primary child adolescent care to a significant other at home: No Do you presently have visiting nurse or other home services: No Alcohol intake: never Patient Tobacco Use Status: Never used Tobacco Behavioral Health Assessment Weight Management Therapy Therapy Notes Details PT presents for a f/up. PT reports been doing better with her health, sleeping better. INTERVENTION: Active listening, processed health challenges, needs and progress. Gently reflect/challenge on goals for weight-loss. Provided support with sx management. RESPONSE: Engaged, cooperative. Presenting Concerns Referral Source MH provider from [facility]. Reason for referral Continue counseling support as part of weight-loss surgery process and due to current MH challenges. Precipitating Event Pt reports she has been adjusting to several losses in past years. In June, her dog passed and since then its been hard to cope with grief Sx. She also was w/out ADHD meds for a short period of time, then medication had to be changed and she's adjusting to a new medication. Assessment & Plan Assessment & Plan (1) ADHD: Code(s): F90.9 - Attention-deficit hyperactivity disorder, unspecified type Qualifiers: Attention deficit-hyperactivity disorder type: combined inattentive- hyperactive Qualified Code(s): F90.2 - Attention-deficit hyperactivity disorder, combined type (2) Adjustment disorder: Code(s): F43.20 - Adjustment disorder, unspecified Plan Pt will continue with weekly counseling sessions. We will support client with 3 main goals: 1) improve organization methods, 2)develop/engage in exercise routine at least 3-4 times per week and 3) Grief/adjusting to life changes. Telehealth Telehealth Location of provider rendering services: other (Home office, [place], [place]) Location of patient: address on file Patient Identification confirmed using: Name, : Yes Telehealth method: video Patient verbally consented to treatment: Yes Patient verbally consented to billing insurance company: Yes Patient informed of any privacy concerns related to visit: Yes Minutes spent on Phone/Video with Pt.: 60 Coding Level of Care Code Established Pt Tele Psytx >53 mins ([id number]) Patient Type Established Diagnoses Attention deficit hyperactivity disorder (ADHD), combined type F90.2 Attention deficit-hyperactivity disorder type: combined inattentive- hyperactive Adjustment disorder F43.20 Time Spent (min) 60 Comment 9:00-10:00AM
== END 2023-03-18 11:12 | disposition home or self-care (01) ==
LOC: HO.HBST 09:12
PROVIDERS: PCP Internal Medicine; Visit Provider Counselor Mental Health
DX: F90.2 Attention-deficit hyperactivity disorder, combined type (principal); F43.20 Adjustment disorder, unspecified
CPT/HCPCS: 90837

== ENCOUNTER → 2023-03-18 09:12 | Outpatient (BNVA) | payer OTHER, SELFPAY | PROVIDERS: PCP Internal Medicine; Visit Provider Counselor Mental Health | DX: F98.8 Other specified behavioral and emotional disorders with onset usually occurring in childhood and adolescence (principal); E66.01 Morbid (severe) obesity due to excess calories; F43.23 Adjustment disorder with mixed anxiety and depressed mood ==

== ENCOUNTER 2023-03-19 09:49 | Outpatient (AMB) | payer OTHER, SELFPAY ==
--- NOTE | 2023-03-19 09:52 | A.OFFVIS_ITS ---
Intake Vital Signs 03/19/23 09:58 Height 5 ft 9 in Weight 337 lb 11.971 oz BMI 49.9 BP 112/60 Blood Pressure Location Lt brachial Position Sitting Pulse 94 Pulse Source Pulse Oximeter Intake Visit Reasons: f/u Type 2 DM Intake Note: Patient present today to follow up on Type 2 Diabetes Mellitus. 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 Random Glucose:231 mg/dl HgA1C: 6.8% 01/01/23 Candy Department Manager Required: No Accompanied by: Self / Same As Patient Allergies Penicillins Allergy (Intermediate, Verified 03/19/23 09:55) Shortness of Breath pt states no food allergies Allergy (Unknown, Uncoded 01/14/23 10:21) Unknown Medication List - Last Reconciled 03/19/23 by Jean Esparza MD acetaminophen 480 mg (15 mL) PO Q6H PRN albuterol sulfate 90 mcg/actuation 2 puffs inhalation QID PRN apremilast (Otezla) 30 mg PO BID atorvastatin 40 mg PO DAILY blood-glucose sensor (Xplore MobilityStyle Alexei 3 Sensor device) As directed change every 14 days bupropion HCl 300 mg PO DAILY dulaglutide (Trulicity) 4.5 mg subcut QWEEK fluoxetine 20 mg PO DAILY gabapentin 300 mg PO TID insulin regular hum U-500 conc (Humulin R U-500 (Conc) Insulin Kwikpen) 0 units am, 10 units pm subcutaneously if over 200; lisdexamfetamine (Vyvanse) 70 mg PO DAILY lisinopril 10 mg PO DAILY lorazepam 1 mg PO DAILY PRN melatonin 10 mg PO BEDTIME PRN HPI HPI Comments History of Present Illness Details 47 YO F who is seen in consultation for T2DM at the request of PCP. Initially diagnosed with T2DM in 2003 . previously saw endo at [facility] up to 2 yrs ago Was initially started on treatment with metformin .Was tolerated it . Took Jardiance in past and tolerated Current regimen Trulicity 4.5 mg Qwkly not taking for 2 mos Humulin U-500 insulin 20 units in AM, 20 units before dinner . Jardiance 10 mg not taking Per the CGM Alexei CGMS is active 84 % of time . Avg glucose is 205 . Variability of 39.9 The patient's blood sugars were in target 45% of the time, above target 55% of the time, and below target 0% of the time Rare Hypoglycemia Family history of T2DM in mother, sister , aunts . Has eyes checked yearly, last eye exam 1 mo ago ago , has retinopathy gets injections . Has neuropathy, not sees podiatry. Denies nephropathy, on KRISTAL/ARB. Has HLD, on statin. Denies CAD. Had diabetes education at [facility] . Going for bariatric surgery here at [facility] Medical History (Updated 01/17/23 @ 17:15 by Cata Rinaldi MD) Adenocarcinoma determined by biopsy of liver ADHD Anxiety and depression Diabetes mellitus Diabetic retinopathy GERD (gastroesophageal reflux disease) HTN (hypertension) with goal to be determined Hyperlipidemia Morbid obesity SOLE on CPAP Surgical History History of cholecystectomy Family History Mother Diabetes Heart problem Father Hypertension Maternal Grandmother Primary cancer of bone marrow Maternal Grandfather Prostate cancer Social History Are you a primary care program director to a significant other at home: No Do you presently have visiting nurse or other home services: No Alcohol intake: never Patient Tobacco Use Status: Never used Tobacco Physical Exam Vital Signs: Last Vital Signs Pulse 94 03/19/23 09:58 BP 102/60 03/19/23 09:58 BMI result Body Mass Index 49.9 Absence of Cushingoid features. Absence of acromegalic features. Neck exam reveals nl size thyroid about 15 gms. No thyroid nodules palpable. No carotid bruits present. Lungs CTA. Heart S1 S2, Reg R/R. No M/R/ G. Skin exam reveals absence of vitiligo or acanthosis nigricans. Abdominal exam reveals Soft NT/ND with NA BS. No organomegaly present. Neck Other: . Extrem Other: Visual exam of foot performed. No ulcerations or open lesions. No onchomycosis, no callouses.Pulses 2 + distally Sensation intact to monofilament exam. Vibratory sensation sensed is decreased with 128 Hz tuning fork Assessment & Plan Assessment & Plan (1) Diabetes mellitus: Code(s): E11.9 - Type 2 diabetes mellitus without complications Plan: This is a 47-year-old female with a history of type 2 diabetes being treated with Trulicity and U-500 insulin we will appears to be poor glycemic control and known microvascular complications namely retinopathy Plan is resume the Jardiance 10 mg q.d.. Will also switch Trulicity to Mounjaro 2.5 mg Q weekly and titrate as tolerated. Went over side effects of Mounjaro including but not limited to nausea, vomiting risk pancreatitis She may proceed ahead with bariatric surgery I will alert me if she does or if she experiences significant hypoglycemia so I can adjust the U-500 insulin Mounjaro 2.5 mg samples given the patient lot number [id number] . Jardiance 10 mg samples given the patient lot number [id number] expiration 05/2025 Medications: New empagliflozin (Jardiance) 10 mg PO DAILY 30 tabs 5RF tirzepatide (Mounjaro) 2.5 mg (0.5 mL) subcut QWEEK 4 weeks 2 mL 0RF Changed From insulin regular hum U-500 conc (Humulin R U-500 (Conc) Insulin Kwikpen) 0 units am, 10 units pm subcutaneously if over 200; To insulin regular hum U-500 conc (Humulin R U-500 (Conc) Insulin Kwikpen) 20 units am, 20 units pm subcutaneously if over 200; 6 mL 5RF Coding Level of Care Code Est Pt Level 4 (09237) Diagnoses Diabetes mellitus E11.9
[2023-03-19 09:58] VITALS: BP 112/60; PULSE 94; BMI 49.9
== END 2023-03-19 10:30 | disposition home or self-care (01) ==
PROVIDERS: PCP Internal Medicine; Visit Provider Internal Medicine Endocrinology, Diabetes & Metabolism
DX: E11.9 Type 2 diabetes mellitus without complications (principal)
CPT/HCPCS: 99214

== ENCOUNTER → 2023-03-19 09:49 | Outpatient (BNVA) | payer OTHER, SELFPAY | PROVIDERS: Visit Provider Internal Medicine Endocrinology, Diabetes & Metabolism ==

== ENCOUNTER 2023-04-09 11:44 | Outpatient (REF) | payer OTHER, SELFPAY ==
--- NOTE | ~2023-04-09 | MM_ITS ---
EXAMINATION: MM SCREENING DIGITAL BREAST TOMOSYNTHESIS, BILATERAL CLINICAL INFORMATION: Screening. Asymptomatic. COMPARISON: Mammography: None. Baseline exam. TECHNIQUE: Digital breast tomosynthesis is performed in both the craniocaudal and mediolateral oblique views along with computer-aided detection (CAD). Synthesized 2D images are generated from the tomosynthesis. FINDINGS: There are scattered areas of fibroglandular density (ACR BI-RADS breast composition Category b). There are bilateral benign vascular calcifications noted. There is a focus of grouped punctate calcifications in the upper slightly inner right breast, for which magnification views recommended. No additional suspicious calcifications. No suspicious masses or areas of architectural distortion. MM/MM tomosynthesis screening BI IMPRESSION: Focus of grouped calcifications right breast upper slightly inner quadrant as detailed, for which magnification views recommended. ASSESSMENT: BI-RADS BI-RADS 0 - Incomplete: Needs additional Imaging. RECOMMENDATION: 1. Additional views of the right breast 2. Radiology department staff will contact the patient for additional imaging. Additional Imaging required This examination should not preclude the clinical evaluation of a suspicious palpable abnormality.
== END 2023-04-09 11:45 | disposition home or self-care (01) ==
LOC: HO.MAMMO 11:44
PROVIDERS: Absent Provider Internal Medicine Medical Oncology; PCP Internal Medicine; Visit Provider Internal Medicine
DX: Z12.31 Encounter for screening mammogram for malignant neoplasm of breast (principal)
CPT/HCPCS: 77063; 77067

== ENCOUNTER → 2023-04-09 11:50 | Outpatient (BNV) | payer OTHER, SELFPAY | PROVIDERS: Absent Provider Internal Medicine Medical Oncology; PCP Internal Medicine; Visit Provider Radiology Diagnostic Radiology | DX: Z12.31 Encounter for screening mammogram for malignant neoplasm of breast (principal) | CPT/HCPCS: 77063; 77067 ==

== ENCOUNTER 2023-04-24 09:15 | Outpatient (AMB) | payer OTHER, SELFPAY ==
--- NOTE | 2023-04-24 09:11 | MHC.WMTHER ---
Intake Intake Visit Reasons: VIDEO F/U Allergies Penicillins Allergy (Intermediate, Verified 03/19/23 09:55) Shortness of Breath pt states no food allergies Allergy (Unknown, Uncoded 01/14/23 10:21) Unknown [facility] Medical History (Updated 04/16/23 @ 11:19 by [employer] [place]) Adenocarcinoma determined by biopsy of liver Diabetic retinopathy Anxiety and depression GERD (gastroesophageal reflux disease) SOLE on CPAP ADHD Hyperlipidemia HTN (hypertension) with goal to be determined Diabetes mellitus Morbid obesity Surgical History History of cholecystectomy Family History Mother Diabetes Heart problem Father Hypertension Maternal Grandmother Primary cancer of bone marrow Maternal Grandfather Prostate cancer Social History Are you a primary insurance healthcare representative to a significant other at home: No Do you presently have visiting nurse or other home services: No Alcohol intake: never Patient Tobacco Use Status: Never used Tobacco Behavioral Health Assessment Weight Management Therapy Therapy Notes Details PT presents for a f/up. Last jase 1 month ago. PT reports she started the gym yesterday, she continues going trough medical exams and testing. . INTERVENTION: Active listening. Processed ongoing stressors at work and with health. Worked in stress management and provided with constructive feedback for addressing issues. Used CBT approach. RESPONSE: Pt was active and engaged in session. PLAN: f/up in about 2 weeks for counseling. PT will schedule jase with [facility] provider after getting CTscan done, as the results might change her plans. Presenting Concerns Referral Source MH provider from [facility]. Reason for referral Continue counseling support as part of weight-loss surgery process and due to current MH challenges. Precipitating Event Pt reports she has been adjusting to several losses in past years. In June, her dog passed and since then its been hard to cope with grief Sx. She also was w/out ADHD meds for a short period of time, then medication had to be changed and she's adjusting to a new medication. Assessment & Plan Assessment & Plan (1) ADHD: Code(s): F90.9 - Attention-deficit hyperactivity disorder, unspecified type Qualifiers: Attention deficit-hyperactivity disorder type: combined inattentive-hyperactive Qualified Code(s): F90.2 - Attention-deficit hyperactivity disorder, combined type (2) Adjustment disorder: Code(s): F43.20 - Adjustment disorder, unspecified Plan Pt will continue with bi-weekly counseling sessions. We will support client with 3 main goals: 1) improve organization methods, 2)develop/engage in exercise routine at least 3-4 times per week and 3) Grief/adjusting to life changes. Telehealth Telehealth Location of provider rendering services: other ([place] office, [place], [place]) Location of patient: address on file Patient Identification confirmed using: Name, : Yes Telehealth method: video Patient verbally consented to treatment: Yes Patient verbally consented to billing insurance company: Yes Patient informed of any privacy concerns related to visit: Yes Minutes spent on Phone/Video with Pt.: 60 Coding Level of Care Code Established Pt Tele Psytx >53 mins (42820) Patient Type Established Diagnoses Attention deficit hyperactivity disorder (ADHD), combined type F90.2 Attention deficit-hyperactivity disorder type: combined inattentive-hyperactive Adjustment disorder F43.20 Time Spent (min) 60
== END 2023-04-24 13:59 | disposition home or self-care (01) ==
LOC: HO.HBST 09:15
PROVIDERS: PCP Internal Medicine; Visit Provider Counselor Mental Health
DX: F90.2 Attention-deficit hyperactivity disorder, combined type (principal); F43.20 Adjustment disorder, unspecified
CPT/HCPCS: 90837

== ENCOUNTER → 2023-04-24 09:15 | Outpatient (BNVA) | payer OTHER, SELFPAY | PROVIDERS: PCP Internal Medicine; Visit Provider Counselor Mental Health ==

== ENCOUNTER 2023-04-30 14:21 | Outpatient (REF) | payer OTHER, SELFPAY ==
--- NOTE | ~2023-04-30 | MM_ITS ---
EXAMINATION: MM DIAGNOSTIC DIGITAL MAMMOGRAPHY, RIGHT CLINICAL INFORMATION: Evaluate calcifications seen on baseline screening exam 04/09/2023. COMPARISON: Mammography: 04/09/2023 TECHNIQUE: Digital mammography is performed in the following views: 2-D spot magnification right CC, right ML, and second right ML projections. FINDINGS: There are scattered areas of fibroglandular density (ACR BI-RADS breast composition Category b). There is a central group of loosely grouped round and punctate calcifications just superior and medial to the nipple line. There is mild pleomorphism although they are predominantly rounded and punctate. A few linear forms are identified. There is no layering, casting, or branching forms. Anterior to this, in the superior and lateral right breast, anterior one third, there is a larger group of calcifications which have similar morphology as the smaller group. This group could potentially lie within a segmental distribution. These calcifications are indeterminant, and 2 site stereotactic biopsy is recommended. MM/MM added views RT IMPRESSION: 2 groups of calcifications as detailed in the right breast, one group is slightly medial and one group slightly anterior and lateral, for which 2 site stereotactic biopsy is recommended. Findings and recommendations discussed with the patient in detail, who appears to understand. ASSESSMENT: BI-RADS BI-RADS 4 - Suspicious finding RECOMMENDATION: Biopsy recommended
== END 2023-04-30 14:22 | disposition home or self-care (01) ==
LOC: HO.MAMMO 14:21
PROVIDERS: PCP Internal Medicine; Visit Provider Internal Medicine
DX: R92.1 Mammographic calcification found on diagnostic imaging of breast (principal)
CPT/HCPCS: 77065

== ENCOUNTER 2023-05-08 08:26 | Outpatient (AMB) | payer OTHER, SELFPAY ==
[2023-05-08 08:32] VITALS: BP 124/59; PULSE 97; BMI 49.5
--- NOTE | 2023-05-08 08:32 | A.OFFVIS_ITS ---
Intake Vital Signs 05/08/23 08:32 Height 5 ft 9 in Weight 335 lb BMI 49.5 BP 124/59 L Blood Pressure Location Lt brachial Position Sitting Pulse 97 Intake Visit Reasons: RT breast st bx X2 calcifications Intake Note: This patient presents for an assessment for right breast stereotactic biopsy consultation for calcifications , 2 sites. Patient c/o; reports no change in breast shape or size, denies breast pain or tenderness. Contracts Paralegal Required: No Accompanied by: Self / Same As Patient Allergies Penicillins Allergy (Intermediate, Verified 05/08/23 08:39) Shortness of Breath pt states no food allergies Allergy (Unknown, Uncoded 05/08/23 08:39) Unknown HPI RT breast st bx X2 calcifications HPI Details 47-year-old female, referred for right b reast calcifications. She had undergone screening mammogram last month showing these calcifications on the left breast so she was recalled for diagnostic mammogram and the showed this loosely grouped round and punctate calcifications just superior and medial to the nipple line. Anterior to this is another area in the superior lateral right breast, anterior 1/3 with a larger group of calcifications. These 2 areas calcifications are considered to be indeterminate so stereotactic biopsy of both sites have been recommended by the radiologist. She had otherwise denies any is palpable breast masses, or nipple or skin changes Her menarche was at the age of 13. She has never been . She on Mirena so she does not have any periods She had undergone an attempt at sleeve gastrectomy last January,. However, she says that there was note of a liver lesion seen at that time so the procedure was aborted. Biopsies of this liver lesion eventually turned out to be benign. [facility] Medical History (Updated 05/07/23 @ 13:43 by Ryan Prescott MD) Breast calcification, right Adenocarcinoma determined by biopsy of liver Diabetic retinopathy Anxiety and depression GERD (gastroesophageal reflux disease) SOLE on CPAP ADHD Hyperlipidemia HTN (hypertension) with goal to be determined Diabetes mellitus Morbid obesity Surgical History History of cholecystectomy Family History Mother Diabetes Heart problem Father Hypertension Maternal Grandmother Primary cancer of bone marrow Maternal Grandfather Prostate cancer Social History Are you a primary child care lead teacher to a significant other at home: No Do you presently have visiting nurse or other home services: No Alcohol intake: never Patient Tobacco Use Status: Never used Tobacco Female Reproductive History Menstrual Age of Menarche: 13 Total pregnancies: 0 Review of Systems Const Denies chills and Denies fever(s) Card Denies chest pain, Denies dyspnea and Denies dyspnea on exertion Resp Denies cough, Denies dyspnea and Denies dyspnea on exertion GI Denies hematochezia and Denies change in bowel habits Denies hematuria Musc Denies back pain and Denies limited range of motion Neuro Denies focal weakness and Denies convulsions Psych Denies depression and Denies mood swings Physical Exam Vital Signs: Last Vital Signs Pulse 97 05/08/23 08:32 BP 124/59 L 05/08/23 08:32 BMI result Body Mass Index 49.5 Const Other: Very morbidly obese General: comfortable and no acute distress Orientation/consciousness: patient oriented x3 Neck Neck: Yes no lymphadenopathy Chest Other: No palpable breast masses, no nipple or skin changes, no axillary lymphadenopathy Resp Auscultation: clear to auscultation bilaterally Cardio Rhythm: regular rhythm GI Palpation (GI): Soft to palpation, nontender and no guarding Neuro General: patient oriented x3 Assessment & Plan Assessment & Plan (1) Breast calcification, right: Code(s): R92.1 - Mammographic calcification found on diagnostic imaging of breast Plan: She has this 2 areas of calcification on the right breast considered indeterminate and stereotactic biopsy of both areas have been recommended by the radiologist. She understands the technique of this procedure. I will see her again in the office next week to discuss the path report. Orders: Orders MM stereotactic biopsy RT 05/07/23 R92.1 - Mammographic calcification found on diagnostic imaging of breast MM stereotactic biopsy ea add 05/07/23 R92.1 - Mammographic calcification found on diagnostic imaging of breast Coding Level of Care Code New Pt Level 3 (01369) Diagnoses Breast calcification, right R92.1
== END 2023-05-08 08:58 | disposition home or self-care (01) ==
PROVIDERS: PCP Internal Medicine; Referring Provider Internal Medicine; Visit Provider Surgery
DX: R92.1 Mammographic calcification found on diagnostic imaging of breast (principal)
CPT/HCPCS: 99203

== ENCOUNTER 2023-05-08 09:03 | Outpatient (REF) | payer OTHER, SELFPAY ==
--- NOTE | ~2023-05-08 | MM_ITS ---
EXAMINATION: STEREOTACTIC TOMOSYNTHESIS-GUIDED VACUUM-ASSISTED 2 SITE BREAST BIOPSY, RIGHT SPECIMEN RADIOGRAPH, RIGHT POST PROCEDURE DIGITAL MAMMOGRAM, RIGHT CLINICAL INFORMATION: 2 site stereotactic biopsy right breast for moderately suspicious group of calcifications central slightly upper slightly lateral group of calcifications (SITE B), and more anterior upper outer group of mildly suspicious loosely grouped calcifications (SITE A). COMPARISON: Correlation made with 04/30/2023 mammography and 04/09/2023 mammography. TECHNIQUE/PROCEDURE: Informed consent was obtained from the patient after discussion of the benefits, risks, and alternatives to biopsy today. Patient appeared to understand. Gave opportunity for questions. Patient signed consent form. BIOPSY TABLE: Fair Observer Affirm Prone Biopsy System. SITE A: More anterior right upper outer group of calcifications. LESION: Grouped calcifications. LOCAL ANESTHESIA: 3 mL 1% lidocaine; 7 mL 1% lidocaine with epinephrine. DERMATOTOMY: Single skin adrian dermatotomy performed. NEEDLE: Suros Eviva 9-gauge vacuum assisted core biopsy device. APPROACH: craniocaudal. TARGETING: Combination of digital breast tomosynthesis and stereotactic digital mammography used for targeting. CORES: 7. CLIP: Top hat-shaped. SPECIMEN RADIOGRAPH: Specimen radiograph is taken in separate room using digital mammography. Numerous index calcifications are in the excised cores. SITE B: More posterior right breast slightly upper slightly medial calcifications. LESION: Grouped calcifications. LOCAL ANESTHESIA: 3 mL 1% lidocaine; 7 mL 1% lidocaine with epinephrine. DERMATOTOMY: Single skin adrian dermatotomy performed. NEEDLE: Suros Eviva 9-gauge vacuum assisted core biopsy device. APPROACH: craniocaudal. TARGETING: Combination of digital breast tomosynthesis and stereotactic digital mammography used for targeting. CORES: 5. CLIP: Buckle-shaped. SPECIMEN RADIOGRAPH: Specimen radiograph is taken in separate room using digital mammography. Numerous index calcifications are in the excised cores. Nearly all calcifications were excised. POST PROCEDURE UNILATERAL DIGITAL MAMMOGRAM: The post biopsy mammogram is performed in separate room using separate digital mammography equipment from the biopsy procedure. Right CC and ML views are obtained. There are scattered areas of fibroglandular density (breast composition category: b). Both biopsy clip markers are in expected and accurate position. No evidence of clip migration. The calcifications are markedly decreased at the biopsy sites. No hematoma or complication evident. The patient tolerated the 2 site biopsy procedure well. No immediate complications. Home instructions reviewed with the patient. Final pathology results are pending. MM/MM stereotactic biopsy ea add IMPRESSION: 1. Digital tomosynthesis-guided core biopsy 2 site right breast with dual clip placement. See details above. 2. Specimen radiograph taken and post procedure mammogram. There is satisfactory and accurate positioning of both the top hat-shaped (site A) and buckle-shaped (site B) biopsy clips. No evidence of clip migration. 3. Final pathology results pending for both sites. An addendum report will be issued with pathology on both sites.
--- NOTE | ~2023-05-08 | MM_ITS ---
EXAMINATION: STEREOTACTIC TOMOSYNTHESIS-GUIDED VACUUM-ASSISTED 2 SITE BREAST BIOPSY, RIGHT SPECIMEN RADIOGRAPH, RIGHT POST PROCEDURE DIGITAL MAMMOGRAM, RIGHT CLINICAL INFORMATION: 2 site stereotactic biopsy right breast for moderately suspicious group of calcifications central slightly upper slightly lateral group of calcifications (SITE B), and more anterior upper outer group of mildly suspicious loosely grouped calcifications (SITE A). COMPARISON: Correlation made with 04/30/2023 mammography and 04/09/2023 mammography. TECHNIQUE/PROCEDURE: Informed consent was obtained from the patient after discussion of the benefits, risks, and alternatives to biopsy today. Patient appeared to understand. Gave opportunity for questions. Patient signed consent form. BIOPSY TABLE: CEDU Affirm Prone Biopsy System. SITE A: More anterior right upper outer group of calcifications. LESION: Grouped calcifications. LOCAL ANESTHESIA: 3 mL 1% lidocaine; 7 mL 1% lidocaine with epinephrine. DERMATOTOMY: Single skin adrian dermatotomy performed. NEEDLE: Suros Eviva 9-gauge vacuum assisted core biopsy device. APPROACH: craniocaudal. TARGETING: Combination of digital breast tomosynthesis and stereotactic digital mammography used for targeting. CORES: 7. CLIP: Top hat-shaped. SPECIMEN RADIOGRAPH: Specimen radiograph is taken in separate room using digital mammography. Numerous index calcifications are in the excised cores. SITE B: More posterior right breast slightly upper slightly medial calcifications. LESION: Grouped calcifications. LOCAL ANESTHESIA: 3 mL 1% lidocaine; 7 mL 1% lidocaine with epinephrine. DERMATOTOMY: Single skin adrian dermatotomy performed. NEEDLE: Suros Eviva 9-gauge vacuum assisted core biopsy device. APPROACH: craniocaudal. TARGETING: Combination of digital breast tomosynthesis and stereotactic digital mammography used for targeting. CORES: 5. CLIP: Buckle-shaped. SPECIMEN RADIOGRAPH: Specimen radiograph is taken in separate room using digital mammography. Numerous index calcifications are in the excised cores. Nearly all calcifications were excised. POST PROCEDURE UNILATERAL DIGITAL MAMMOGRAM: The post biopsy mammogram is performed in separate room using separate digital mammography equipment from the biopsy procedure. Right CC and ML views are obtained. There are scattered areas of fibroglandular density (breast composition category: b). Both biopsy clip markers are in expected and accurate position. No evidence of clip migration. The calcifications are markedly decreased at the biopsy sites. No hematoma or complication evident. The patient tolerated the 2 site biopsy procedure well. No immediate complications. Home instructions reviewed with the patient. Final pathology results are pending. MM/MM stereotactic biopsy RT IMPRESSION: 1. Digital tomosynthesis-guided core biopsy 2 site right breast with dual clip placement. See details above. 2. Specimen radiograph taken and post procedure mammogram. There is satisfactory and accurate positioning of both the top hat-shaped (site A) and buckle-shaped (site B) biopsy clips. No evidence of clip migration. 3. Final pathology results pending for both sites. An addendum report will be issued with pathology on both sites.
[2023-05-08] MEDS: Sodium Bicarbonate 8.4% 50 MEQ/50 ML VIAL 6 MEQ SUBCUT (11:23)
[2023-05-08] MEDS: Lidocaine HCl 1 % 20 ML VIAL 8 ML SUBCUT (11:24)
[2023-05-08] MEDS: Lidocaine HCl 1% PF/Epi 1:200,000 30 ML VIAL 36 ML SUBCUT (11:26)
== END 2023-05-08 09:04 | disposition home or self-care (01) ==
LOC: HO.MAMMO 09:03
PROVIDERS: Absent Provider Internal Medicine Medical Oncology; PCP Internal Medicine; Visit Provider Surgery
DX: R92.1 Mammographic calcification found on diagnostic imaging of breast (principal)
CPT/HCPCS: 19081; 19082; 88305; A4648

== ENCOUNTER → 2023-05-08 10:00 | Outpatient (BNV) | payer OTHER, SELFPAY | PROVIDERS: Absent Provider Internal Medicine Medical Oncology; PCP Internal Medicine; Visit Provider Radiology Diagnostic Radiology | DX: R92.1 Mammographic calcification found on diagnostic imaging of breast (principal) | CPT/HCPCS: 19081; 19082 ==

== ENCOUNTER 2023-05-20 09:00 | Outpatient (AMB) | payer OTHER, SELFPAY ==
--- NOTE | 2023-05-20 09:10 | MHC.WMTHER ---
Intake Intake Visit Reasons: VIDEO BH F/U Allergies Penicillins Allergy (Intermediate, Verified 05/08/23 08:39) Shortness of Breath pt states no food allergies Allergy (Unknown, Uncoded 05/08/23 08:39) Unknown [facility] Medical History (Updated 05/07/23 @ 13:43 by Ryan Prescott MD) Breast calcification, right Adenocarcinoma determined by biopsy of liver Diabetic retinopathy Anxiety and depression GERD (gastroesophageal reflux disease) SOLE on CPAP ADHD Hyperlipidemia HTN (hypertension) with goal to be determined Diabetes mellitus Morbid obesity Surgical History History of cholecystectomy Family History Mother Diabetes Heart problem Father Hypertension Maternal Grandmother Primary cancer of bone marrow Maternal Grandfather Prostate cancer Social History Are you a primary outdoor emergency care technician to a significant other at home: No Do you presently have visiting nurse or other home services: No Alcohol intake: never Patient Tobacco Use Status: Never used Tobacco Female Reproductive History Menstrual Age of Menarche: 13 Behavioral Health Assessment Weight Management Therapy Therapy Notes Details Pt presents for a follow up. Pt reports been stressed due to situations in personal life impacting her attention and overall functioning. INTERVENTIONS: Processed sources of stress, challenges with attention and other triggering events. Validated and normalized feelings. Provided with FOCUS method for ADHD Sx/management. Worked on Sx management. Supported with decision making. RESPONSE: Engaged and active. Pt responded well to intervention. PLAN: Pt is considering get back on track for bariatric surgery. F/up in a month sfter upcoming trip. Then every 2 weeks. Assessment & Plan Assessment & Plan (1) ADHD: Code(s): F90.9 - Attention-deficit hyperactivity disorder, unspecified type Qualifiers: Attention deficit-hyperactivity disorder type: combined inattentive-hyperactive Qualified Code(s): F90.2 - Attention-deficit hyperactivity disorder, combined type (2) Adjustment disorder: Code(s): F43.20 - Adjustment disorder, unspecified Plan Pt will continue with bi-weekly counseling sessions. We will support client with 3 main goals: 1) improve organization methods, 2)develop/engage in exercise routine at least 3-4 times per week and 3) Grief/adjusting to life changes. Telehealth Telehealth Location of provider rendering services: other (Home office, [place], [place]) Location of patient: address on file Patient Identification confirmed using: Name, : Yes Telehealth method: video Patient verbally consented to treatment: Yes Patient verbally consented to billing insurance company: Yes Patient informed of any privacy concerns related to visit: Yes Minutes spent on Phone/Video with Pt.: 60 Coding Level of Care Code Established Pt Tele Psytx >53 mins (36705) Patient Type Established Diagnoses Attention deficit hyperactivity disorder (ADHD), combined type F90.2 Attention deficit-hyperactivity disorder type: combined inattentive-hyperactive Adjustment disorder F43.20 Time Spent (min) 60
== END 2023-05-20 10:00 | disposition home or self-care (01) ==
LOC: HO.HBST 09:12
PROVIDERS: PCP Internal Medicine; Visit Provider Counselor Mental Health
DX: F90.2 Attention-deficit hyperactivity disorder, combined type (principal); F43.20 Adjustment disorder, unspecified
CPT/HCPCS: 90837

== ENCOUNTER → 2023-05-20 09:00 | Outpatient (BNVA) | payer OTHER, SELFPAY | PROVIDERS: PCP Internal Medicine; Visit Provider Counselor Mental Health ==

== ENCOUNTER 2023-06-24 09:00 | Outpatient (AMB) | payer OTHER, SELFPAY ==
--- NOTE | 2023-06-24 10:13 | A.OFFWM_ITS ---
Intake Intake Visit Reasons: VIDEO BH F/U Allergies Penicillins Allergy (Intermediate, Verified 05/08/23 08:39) Shortness of Breath pt states no food allergies Allergy (Unknown, Uncoded 05/08/23 08:39) Unknown [facility] Medical History (Updated 05/07/23 @ 13:43 by Ryan Prescott MD) Breast calcification, right Adenocarcinoma determined by biopsy of liver Diabetic retinopathy Anxiety and depression GERD (gastroesophageal reflux disease) SOLE on CPAP ADHD Hyperlipidemia HTN (hypertension) with goal to be determined Diabetes mellitus Morbid obesity Surgical History History of cholecystectomy Family History Mother Diabetes Heart problem Father Hypertension Maternal Grandmother Primary cancer of bone marrow Maternal Grandfather Prostate cancer Social History Are you a primary family member caretaker to a significant other at home: No Do you presently have visiting nurse or other home services: No Alcohol intake: never Patient Tobacco Use Status: Never used Tobacco Female Reproductive History Menstrual Age of Menarche: 13 Behavioral Health Assessment Weight Management Therapy Therapy Notes Details PT presents for F/up. PT has decided to continue with WMP. INTERVENTIONS: Active listening, discussed functioning and some challenges she has been dealing with around her weight and body image. Processed triggering events and responses (thoughts/feelings). Talk therapy, worked in decision making. Feedback provided. RESPONSE: Active, engaged. Pt showed insight. PLAN: Client will continue receiving support with body image challenges and to pursue weight-loss goals. She will request an Joyce with Dr. Sanders to move forward with Surgical weight-loss program. Assessment & Plan Assessment & Plan (1) ADHD: Code(s): F90.9 - Attention-deficit hyperactivity disorder, unspecified type Qualifiers: Attention deficit-hyperactivity disorder type: combined inattentive- hyperactive Qualified Code(s): F90.2 - Attention-deficit hyperactivity disorder, combined type (2) Adjustment disorder: Code(s): F43.20 - Adjustment disorder, unspecified Plan Pt will continue with bi-weekly counseling sessions. We will support client with 3 main goals: 1) improve organization methods, 2)develop/engage in exercise routine at least 3-4 times per week and 3) Grief/adjusting to life changes. Next joyce in 2 weeks. 07/08/23 at 9am, via telehealth. Telehealth Telehealth Location of provider rendering services: other (Home office, [place], [place]) Location of patient: address on file Patient Identification confirmed using: Name, : Yes Telehealth method: video Patient verbally consented to treatment: Yes Patient verbally consented to billing insurance company: Yes Patient informed of any privacy concerns related to visit: No Minutes spent on Phone/Video with Pt.: 60 Coding Level of Care Code Established Pt Tele Psytx >53 mins (30807) Patient Type Established Diagnoses Attention deficit hyperactivity disorder (ADHD), combined type F90.2 Attention deficit-hyperactivity disorder type: combined inattentive- hyperactive Adjustment disorder F43.20 Time Spent (min) 60
== END 2023-06-24 10:00 | disposition home or self-care (01) ==
LOC: HO.HBST 09:28
PROVIDERS: PCP Internal Medicine; Visit Provider Counselor Mental Health
DX: F90.2 Attention-deficit hyperactivity disorder, combined type (principal); F43.20 Adjustment disorder, unspecified
CPT/HCPCS: 90837

== ENCOUNTER → 2023-06-24 09:00 | Outpatient (BNVA) | payer OTHER, SELFPAY | PROVIDERS: PCP Internal Medicine; Visit Provider Counselor Mental Health ==

== ENCOUNTER 2023-07-02 10:19 | Outpatient (AMB) | payer OTHER, SELFPAY ==
--- NOTE | 2023-07-02 10:24 | A.OFFVIS_ITS ---
Intake Vital Signs 07/02/23 10:27 Height 5 ft 9 in Weight 335 lb 8.697 oz BMI 49.5 BP 114/74 Blood Pressure Location Rt brachial Position Sitting Pulse 93 Pulse Source Pulse Oximeter Intake Visit Reasons: f/u Type2 DM-CONFIRMED Intake Note: Patient present today to follow up on Type 2 Diabetes Mellitus. Patient receives DME supplies: Pharmacy Last Diabetic Eye exam: 09/11/2022 Last Podiatry Visit: Does not see a [facility] Random Glucose: 177 mg/dl HgA1C: 7.9% Occupational Therapy Specialist Required: No Accompanied by: Self / Same As Patient Allergies Penicillins Allergy (Intermediate, Verified 07/02/23 10:27) Shortness of Breath pt states no food allergies Allergy (Unknown, Uncoded 07/02/23 10:27) Unknown HPI HPI Comments History of Present Illness Details 48 YO F who is seen in consultation for T2DM at the request of PCP. Initially diagnosed with T2DM in 2003 . previously saw endo at [facility] up to 2 yrs ago Was initially started on treatment with metformin .Was tolerated it . Took Jardiance in past and tolerated Current regimen Mounjaro 2.5 mg Qwkly Humulin U-500 insulin 20 units in AM, 20 units before dinner not taking . Jardiance 10 mg Unfortunately, the patient did not bring her sensor or glucometer to the follow-up appointment Rare Hypoglycemia Family history of T2DM in mother, sister , aunts . Has eyes checked yearly, last eye exam 11/2022 , has retinopathy gets injections . Has neuropathy, not sees podiatry. Denies nephropathy, on KRISTAL/ARB. Has HLD, on statin. Denies CAD. Had diabetes education at [facility] . Going for bariatric surgery here at [facility] Medical History (Updated 05/07/23 @ 13:43 by Ryan Prescott MD) Breast calcification, right Adenocarcinoma determined by biopsy of liver Diabetic retinopathy Anxiety and depression GERD (gastroesophageal reflux disease) SOLE on CPAP ADHD Hyperlipidemia HTN (hypertension) with goal to be determined Diabetes mellitus Morbid obesity Surgical History History of cholecystectomy Family History Mother Diabetes Heart problem Father Hypertension Maternal Grandmother Primary cancer of bone marrow Maternal Grandfather Prostate cancer Social History Are you a primary career development coordinator/teacher to a significant other at home: No Do you presently have visiting nurse or other home services: No Alcohol intake: never Patient Tobacco Use Status: Never used Tobacco Female Reproductive History Menstrual Age of Menarche: 13 Physical Exam Vital Signs: Last Vital Signs Pulse 93 07/02/23 10:27 BP 114/74 07/02/23 10:27 BMI result Body Mass Index 49.5 Absence of Cushingoid features. Absence of acromegalic features. Neck exam reveals nl size thyroid about 15 gms. No thyroid nodules palpable. No carotid bruits present. Lungs CTA. Heart S1 S2, Reg R/R. No M/R/ G. Skin exam reveals absence of vitiligo or acanthosis nigricans. Abdominal exam reveals Soft NT/ND with NA BS. No organomegaly present. Neck Other: . Extrem Other: Visual exam of foot performed. No ulcerations or open lesions. No onchomycosis, no callouses.Pulses 2 + distally Sensation intact to monofilament exam. Vibratory sensation sensed is decreased with 128 Hz tuning fork Results AMB Hemoglobin A1c AMB Hemoglobin A1c 7.9 % Last Edit by ANN Vinson on 07/02/23 10:49 Results Reviewed Results Reviewed: Laboratory Last Values Glucose (Clinic) 177 mg/dL (60-115) H 07/02/23 10:34 Hgb A1c (Clinic) 7.9 % (4.0-6.0) H 07/02/23 10:37 Assessment & Plan Assessment & Plan (1) Diabetes mellitus: Code(s): E11.9 - Type 2 diabetes mellitus without complications Plan: This is a 48-year-old female with a history of type 2 diabetes being treated with Trulicity and U-500 insulin we will appears to be fair glycemic control and known microvascular complications namely retinopathy Plan is To increase the Mounjaro to 5 mg Qwkly She may proceed ahead with bariatric surgery I will alert me if she does or if she experiences significant hypoglycemia so I can adjust the U-500 insulin Orders: Orders AMB Hemoglobin A1c Today E11.9 - Type 2 diabetes mellitus without complications Medications: New tirzepatide (Mounjaro) 5 mg (0.5 mL) subcut QWEEK 2 mL 5RF Discontinued tirzepatide (Mounjaro) Discontinued Reason: Doctor's Order 2.5 mg (0.5 mL) subcut QWEEK 2 mL 0RF Coding Level of Care Code Est Pt Level 4 (95132) Diagnoses Diabetes mellitus E11.9
[2023-07-02 10:27] VITALS: BP 114/74; PULSE 93; BMI 49.5
[2023-07-02 10:40] LABS: Glucose, Whole Blood 177 mg/dL (60-115)
== END 2023-07-02 10:48 | disposition home or self-care (01) ==
PROVIDERS: PCP Internal Medicine; Visit Provider Internal Medicine Endocrinology, Diabetes & Metabolism
DX: E11.9 Type 2 diabetes mellitus without complications (principal)
CPT/HCPCS: 99214

== ENCOUNTER → 2023-07-02 10:19 | Outpatient (BNVA) | payer OTHER, SELFPAY | PROVIDERS: PCP Internal Medicine; Visit Provider Internal Medicine Endocrinology, Diabetes & Metabolism | DX: E11.9 Type 2 diabetes mellitus without complications (principal); Z79.4 Long term (current) use of insulin | CPT/HCPCS: 82947; 83036 ==

== ENCOUNTER 2023-07-08 09:00 | Outpatient (AMB) | payer OTHER, SELFPAY ==
--- NOTE | 2023-07-08 09:20 | MHC.WMTHER ---
Intake Intake Visit Reasons: VIDEO BH F/U Allergies Penicillins Allergy (Intermediate, Verified 07/02/23 10:27) Shortness of Breath pt states no food allergies Allergy (Unknown, Uncoded 07/02/23 10:27) Unknown [facility] Medical History (Updated 05/07/23 @ 13:43 by Ryan Prescott MD) Breast calcification, right Adenocarcinoma determined by biopsy of liver Diabetic retinopathy Anxiety and depression GERD (gastroesophageal reflux disease) SOLE on CPAP ADHD Hyperlipidemia HTN (hypertension) with goal to be determined Diabetes mellitus Morbid obesity Surgical History History of cholecystectomy Family History Mother Diabetes Heart problem Father Hypertension Maternal Grandmother Primary cancer of bone marrow Maternal Grandfather Prostate cancer Social History Are you a primary senior care specialist to a significant other at home: No Do you presently have visiting nurse or other home services: No Alcohol intake: never Patient Tobacco Use Status: Never used Tobacco Female Reproductive History Menstrual Age of Menarche: 13 Behavioral Health Assessment Weight Management Therapy Therapy Notes Details Pt presents for a F/up. INTERVENTIONS: Discussed functioning and routine. Processed recent sources of stress and concentration challenges. Used CBT-based interventions for Sx management. Provided constructive feedback around avoidance of certain anxiety-triggering events. RESPONSE: Active. Pt responded well to interventions. PLAN: f/up again in about 2 weeks. Next jase: 07/22 at 9am - VIDEO. Assessment & Plan Assessment & Plan (1) ADHD: Code(s): F90.9 - Attention-deficit hyperactivity disorder, unspecified type Qualifiers: Attention deficit-hyperactivity disorder type: combined inattentive-hyperactive Qualified Code(s): F90.2 - Attention-deficit hyperactivity disorder, combined type (2) Adjustment disorder: Code(s): F43.20 - Adjustment disorder, unspecified Plan Pt will continue with bi-weekly counseling sessions. We will support client with 3 main goals: 1) improve organization methods, 2)develop/engage in exercise routine at least 3-4 times per week and 3) Grief/adjusting to life changes. Next jase in 2 weeks. 07/22/23 at 9am, via telehealth. Telehealth Telehealth Location of provider rendering services: other (Home office, [place], [place]) Location of patient: address on file Patient Identification confirmed using: Name, : Yes Telehealth method: video Patient verbally consented to treatment: Yes Patient verbally consented to billing insurance company: Yes Patient informed of any privacy concerns related to visit: No Minutes spent on Phone/Video with Pt.: 60 Coding Level of Care Code Established Pt Tele Psytx >53 mins (40165) Patient Type Established Diagnoses Attention deficit hyperactivity disorder (ADHD), combined type F90.2 Attention deficit-hyperactivity disorder type: combined inattentive-hyperactive Adjustment disorder F43.20
== END 2023-07-08 10:00 | disposition home or self-care (01) ==
LOC: HO.HBST 09:23
PROVIDERS: PCP Internal Medicine; Visit Provider Counselor Mental Health
DX: F90.2 Attention-deficit hyperactivity disorder, combined type (principal); F43.20 Adjustment disorder, unspecified
CPT/HCPCS: 90837

== ENCOUNTER → 2023-07-08 09:00 | Outpatient (BNVA) | payer OTHER, SELFPAY | PROVIDERS: PCP Internal Medicine; Visit Provider Counselor Mental Health ==

== ENCOUNTER 2023-07-22 09:00 | Outpatient (AMB) | payer OTHER, SELFPAY ==
--- NOTE | 2023-07-22 09:29 | A.OFFWM_ITS ---
Intake Intake Visit Reasons: VIDEO BH F/U Allergies Penicillins Allergy (Intermediate, Verified 07/02/23 10:27) Shortness of Breath pt states no food allergies Allergy (Unknown, Uncoded 07/02/23 10:27) Unknown [facility] Medical History (Updated 05/07/23 @ 13:43 by Ryan Prescott MD) Breast calcification, right Adenocarcinoma determined by biopsy of liver Diabetic retinopathy Anxiety and depression GERD (gastroesophageal reflux disease) SOLE on CPAP ADHD Hyperlipidemia HTN (hypertension) with goal to be determined Diabetes mellitus Morbid obesity Surgical History History of cholecystectomy Family History Mother Diabetes Heart problem Father Hypertension Maternal Grandmother Primary cancer of bone marrow Maternal Grandfather Prostate cancer Social History Are you a primary spiritual care coordinator to a significant other at home: No Do you presently have visiting nurse or other home services: No Alcohol intake: never Patient Tobacco Use Status: Never used Tobacco Female Reproductive History Menstrual Age of Menarche: 13 Behavioral Health Assessment Weight Management Therapy Therapy Notes Details Pt presents for a F/up. 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 INTERVENTIONS: -Processed upsetting events. Completed A BC analysis (Identified triggers and responses), reviewed consequences to responses and explored possible methods to have different responses to use when same events happen. -Processed other personal events, valida stewart and normalized feelings. worked in stress management. - Used CBT strategies. Assessment & Plan Assessment & Plan (1) ADHD: Code(s): F90.9 - Attention-deficit hyperactivity disorder, unspecified type Qualifiers: Attention deficit-hyperactivity disorder type: combined inattentive- hyperactive Qualified Code(s): F90.2 - Attention-deficit hyperactivity disorder, combined type (2) Adjustment disorder: Code(s): F43.20 - Adjustment disorder, unspecified Plan Pt will continue with bi-weekly counseling sessions. We will support client with 3 main goals: 1) improve organization methods, 2)develop/engage in exercise routine at least 3-4 times per week and 3) Grief/adjusting to life changes. Next jase in 2 weeks. 08/07/2023 at 9am, via telehealth. Telehealth Telehealth Location of provider rendering services: other ([place] office, [place], [place]) Location of patient: address on file Patient Identification confirmed using: Name, : Yes Telehealth method: video Patient verbally consented to treatment: Yes Patient verbally consented to billing insurance company: Yes Patient informed of any privacy concerns related to visit: No Minutes spent on Phone/Video with Pt.: 60 Coding Level of Care Code Established Pt Tele Psytx >53 mins ([id number]) Patient Type Established Diagnoses Attention deficit hyperactivity disorder (ADHD), combined type F90.2 Attention deficit-hyperactivity disorder type: combined inattentive- hyperactive Adjustment disorder F43.20 Time Spent (min) 60
== END 2023-07-22 10:00 | disposition home or self-care (01) ==
LOC: HO.HBST 09:39
PROVIDERS: PCP Internal Medicine; Visit Provider Counselor Mental Health
DX: F90.2 Attention-deficit hyperactivity disorder, combined type (principal); F43.20 Adjustment disorder, unspecified
CPT/HCPCS: 90837

== ENCOUNTER → 2023-07-22 09:00 | Outpatient (BNVA) | payer OTHER, SELFPAY | PROVIDERS: PCP Internal Medicine; Visit Provider Counselor Mental Health ==

== ENCOUNTER 2023-08-07 09:00 | Outpatient (AMB) | payer OTHER, SELFPAY ==
--- NOTE | 2023-08-07 09:21 | MHC.WMTHER ---
Intake Intake Visit Reasons: VIDEO BH F/U Allergies Penicillins Allergy (Intermediate, Verified 08/12/23 14:00) Shortness of Breath pt states no food allergies Allergy (Unknown, Uncoded 08/12/23 14:00) Unknown [facility] Medical History (Updated 08/12/23 @ 14:08 by Charles Walsh MD) Asthma Insomnia Neuropathy Breast calcification, right Adenocarcinoma determined by biopsy of liver Diabetic retinopathy Anxiety and depression GERD (gastroesophageal reflux disease) SOLE on CPAP ADHD Hyperlipidemia HTN (hypertension) with goal to be determined Diabetes mellitus Morbid obesity Surgical History History of cholecystectomy Family History Mother Diabetes Heart problem Father Hypertension Maternal Grandmother Primary cancer of bone marrow Maternal Grandfather Prostate cancer Social History Are you a primary pet care worker to a significant other at home: No Do you presently have visiting nurse or other home services: No Alcohol intake: never Patient Tobacco Use Status: Never used Tobacco Female Reproductive History Menstrual Age of Menarche: 13 Behavioral Health Assessment Weight Management Therapy Therapy Notes Details PT presents for a follow up. INTERVENTION Discussed how patient managed holidays and family pressure around eating and interpersonal changes. Reflected on family dynamics, personal boundaries and setting limits around her commitment with weight-loss journey. Used CBT based interventions for cognitive restructuring and behavioral modification. RESPONSE: PT was open and active in session. Presenting Concerns Referral Source MH provider from [facility]. Reason for referral Continue counseling support as part of weight-loss surgery process and due to current MH challenges. Precipitating Event Pt reports she has been adjusting to several losses in past years. In June, her dog passed and since then its been hard to cope with grief Sx. She also was w/out ADHD meds for a short period of time, then medication had to be changed and she's adjusting to a new medication. Assessment & Plan Assessment & Plan (1) ADHD: Code(s): F90.9 - Attention-deficit hyperactivity disorder, unspecified type Qualifiers: Attention deficit-hyperactivity disorder type: combined inattentive-hyperactive Qualified Code(s): F90.2 - Attention-deficit hyperactivity disorder, combined type (2) Adjustment disorder: Code(s): F43.20 - Adjustment disorder, unspecified Plan Keep jase with Dr Marcano next week 08/12. Will f/up with in 2 weeks. 08/21 at 9am. Telehealth Telehealth Location of provider rendering services: other Location of patient: address on file Patient Identification confirmed using: Name, : Yes Telehealth method: video Patient verbally consented to treatment: Yes Patient verbally consented to billing insurance company: Yes Patient informed of any privacy concerns related to visit: No Minutes spent on Phone/Video with Pt.: 45 Coding Level of Care Code Established Pt Psytx 45 mins (93117) Patient Type Established Diagnoses Attention deficit hyperactivity disorder (ADHD), combined type F90.2 Attention deficit-hyperactivity disorder type: combined inattentive-hyperactive Adjustment disorder F43.20 Time Spent (min) 45
== END 2023-08-28 09:20 | disposition home or self-care (01) ==
LOC: HO.HBST 09:19
PROVIDERS: PCP Internal Medicine; Visit Provider Counselor Mental Health
DX: F90.2 Attention-deficit hyperactivity disorder, combined type (principal); F43.20 Adjustment disorder, unspecified
CPT/HCPCS: 90834

== ENCOUNTER → 2023-08-07 09:00 | Outpatient (BNVA) | payer OTHER, SELFPAY | PROVIDERS: PCP Internal Medicine; Visit Provider Counselor Mental Health ==

== ENCOUNTER 2023-08-12 08:35 | Outpatient (AMB) | payer OTHER, SELFPAY ==
--- NOTE | 2023-08-12 14:00 | MHC.OFFVISWM ---
Intake Intake Visit Reasons: TV Consult/Transfer Dr. Sanders Allergies Penicillins Allergy (Intermediate, Verified 08/12/23 14:00) Shortness of Breath pt states no food allergies Allergy (Unknown, Uncoded 08/12/23 14:00) Unknown Medication List - Last Reconciled 08/12/23 by Charles Walsh MD albuterol sulfate 90 mcg/actuation 2 puffs inhalation QID PRN atorvastatin 40 mg PO DAILY blood-glucose sensor (LetsgofordinnerStyle Alexei 3 Sensor device) USE DIRECTED AND CHANGE EVERY 14 DAYS bupropion HCl 300 mg PO DAILY cholecalciferol (vitamin D3) 125 mcg PO DAILY empagliflozin (Jardiance) 10 mg PO DAILY fluoxetine 20 mg PO DAILY gabapentin 300 mg PO TID insulin regular hum U-500 conc (Humulin R U-500 (Conc) Insulin Kwikpen) 20 units am, 20 units pm subcutaneously if over 200; lisdexamfetamine (Vyvanse) 70 mg PO DAILY lisinopril 10 mg PO DAILY lorazepam 1 mg PO DAILY PRN melatonin 10 mg PO BEDTIME PRN thiamine HCl (vitamin B1) 100 mg PO DAILY tirzepatide (Mounjaro) 5 mg (0.5 mL) subcut QWEEK vitamin A palmitate 10,000 units PO DAILY HPI TV Consult/Transfer Dr. Sanders HPI Details Start time: 1.30pm, End time: 2.30pm ?I spent 55 minutes speaking with the patient on the phone plus an additional 5 minutes reviewing and updating records for a total of 60 minutes [facility] Medical History (Updated 08/12/23 @ 14:08 by Charles Walsh MD) Asthma Insomnia Neuropathy Breast calcification, right Adenocarcinoma determined by biopsy of liver Diabetic retinopathy Anxiety and depression GERD (gastroesophageal reflux disease) SOLE on CPAP ADHD Hyperlipidemia HTN (hypertension) with goal to be determined Diabetes mellitus Morbid obesity Surgical History History of cholecystectomy Family History Mother Diabetes Heart problem Father Hypertension Maternal Grandmother Primary cancer of bone marrow Maternal Grandfather Prostate cancer Social History Are you a primary daycare provider to a significant other at home: No Do you presently have visiting nurse or other home services: No Alcohol intake: never Patient Tobacco Use Status: Never used Tobacco Female Reproductive History Menstrual Age of Menarche: 13 Assessment & Plan Assessment & Plan (1) Morbid obesity: Code(s): E66.01 - Morbid (severe) obesity due to excess calories Plan: Extensive review of multiple records. I will order the CT of the abdomen/pelvis/chest since the patient is waiting by Dr. Rinaldi's office since January to be done. 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 I will order the CT of the abdomen/pelvis/chest since the patient is waiting by Dr. Rinaldi's office since January to be done. Once this is done I will be able to give further recommendations Orders: Orders CT chest w IV con Today D13.4 - Benign neoplasm of liver CT abdomen pelvis w IV con Today D13.4 - Benign neoplasm of liver Medications: New vitamin A palmitate 10,000 units PO DAILY 90 caps 0RF E50.9 - Vitamin A deficiency, unspecified cholecalciferol (vitamin D3) 125 mcg PO DAILY 90 caps 0RF E55.9 - Vitamin D deficiency, unspecified thiamine HCl (vitamin B1) 100 mg PO DAILY 90 tabs 0RF E51.9 - Thiamine deficiency, unspecified Telehealth Telehealth Location of provider rendering services: practice address Location of patient: address on file Patient Identification confirmed using: Name, : Yes Telehealth method: voice only Patient verbally consented to treatment: Yes Patient verbally consented to billing insurance company: Yes Patient informed of any privacy concerns related to visit: Yes Minutes spent on Phone/Video with Pt.: 60 Coding Level of Care Code Tele Est Pt Level 5 (52684) Diagnoses Morbid obesity E66.01 Bile duct adenoma D13.4 Time Spent (min) 60
== END 2023-08-12 14:30 | disposition home or self-care (01) ==
LOC: HO.HBS 08:36
PROVIDERS: PCP Internal Medicine; Visit Provider Surgery
DX: E66.01 Morbid (severe) obesity due to excess calories (principal); D13.4 Benign neoplasm of liver
CPT/HCPCS: 99443

== ENCOUNTER → 2023-08-12 08:35 | Outpatient (BNVA) | payer OTHER, SELFPAY | PROVIDERS: PCP Internal Medicine; Visit Provider Surgery ==

== ENCOUNTER 2023-08-21 09:00 | Outpatient (AMB) | payer OTHER, SELFPAY ==
--- NOTE | 2023-08-21 09:49 | A.OFFWM_ITS ---
Intake Intake Visit Reasons: VIDEO BH F/U Allergies Penicillins Allergy (Intermediate, Verified 08/12/23 14:00) Shortness of Breath pt states no food allergies Allergy (Unknown, Uncoded 08/12/23 14:00) Unknown [facility] Medical History (Updated 08/12/23 @ 14:08 by Charles Walsh MD) Asthma Insomnia Neuropathy Breast calcification, right Adenocarcinoma determined by biopsy of liver Diabetic retinopathy Anxiety and depression GERD (gastroesophageal reflux disease) SOLE on CPAP ADHD Hyperlipidemia HTN (hypertension) with goal to be determined Diabetes mellitus Morbid obesity Surgical History History of cholecystectomy Family History Mother Diabetes Heart problem Father Hypertension Maternal Grandmother Primary cancer of bone marrow Maternal Grandfather Prostate cancer Social History Are you a primary patient care associate to a significant other at home: No Do you presently have visiting nurse or other home services: No Alcohol intake: never Patient Tobacco Use Status: Never used Tobacco Female Reproductive History Menstrual Age of Menarche: 13 Behavioral Health Assessment Weight Management Therapy Therapy Notes Details PT presents for a follow up. Processed her last encounter with surgeon and triggered feelings. PT reports she has been dealing with mixed feelings around the long-term changes she needs to make. Cognitive processing therapy and CBT-based interventions were used for addressing symptoms and presenting concerns. PT was active in session and responded well to interventions. today its our last visit, patient has been encouraged to seek counseling services outside to continue treatment. She has been cleared for bariatric surgery, and will be seen again if provider recommends pre-op and/or 4-6 weeks post op for support. Assessment & Plan Assessment & Plan (1) ADHD: Code(s): F90.9 - Attention-deficit hyperactivity disorder, unspecified type Qualifiers: Attention deficit-hyperactivity disorder type: combined inattentive- hyperactive Qualified Code(s): F90.2 - Attention-deficit hyperactivity disorder, combined type (2) Adjustment disorder: Code(s): F43.20 - Adjustment disorder, unspecified Plan Continue counseling services with outside provider. Will meet with me again 4-6 weeks post-op if moves forward with surgery. Telehealth Telehealth Location of provider rendering services: other Location of patient: address on file Patient Identification confirmed using: Name, : Yes Telehealth method: video Patient verbally consented to treatment: Yes Patient verbally consented to billing insurance company: Yes Patient informed of any privacy concerns related to visit: No Minutes spent on Phone/Video with Pt.: 60 Coding Level of Care Code Established Pt Tele Psytx >53 mins (70944) Patient Type Established Diagnoses Attention deficit hyperactivity disorder (ADHD), combined type F90.2 Attention deficit-hyperactivity disorder type: combined inattentive- hyperactive Adjustment disorder F43.20 Time Spent (min) 60
== END 2023-08-21 10:00 | disposition home or self-care (01) ==
LOC: HO.HBST 09:40
PROVIDERS: PCP Internal Medicine; Visit Provider Counselor Mental Health
DX: F90.2 Attention-deficit hyperactivity disorder, combined type (principal); F43.20 Adjustment disorder, unspecified
CPT/HCPCS: 90837

== ENCOUNTER → 2023-08-21 09:00 | Outpatient (BNVA) | payer OTHER, SELFPAY | PROVIDERS: PCP Internal Medicine; Visit Provider Counselor Mental Health ==

== ENCOUNTER 2023-09-03 09:52 | Outpatient (REF) | payer OTHER, SELFPAY ==
--- NOTE | ~2023-09-03 | CT_ITS ---
EXAMINATION: CT CHEST, ABDOMEN AND PELVIS WITH CONTRAST CLINICAL INFORMATION: Benign neoplasm of liver. COMPARISON: Abdominal ultrasound dated 11/12/2022. TECHNIQUE: Multidetector volumetric imaging was performed from the thoracic inlet through the pubic symphysis following administration of 85 mL of Omnipaque 350 intravenous contrast. Sagittal and coronal reformatted images were obtained on the technologist workstation. This CT examination was performed using dose optimization techniques as appropriate, variously including the following: *Automated exposure control. *Adjustment of mA and/or kV according to patient size (this includes techniques or standardized protocols for targeted exams where dose is matched to indication/reason for exam, i.e., extremities or head). *Use of iterative reconstruction technique. DLP: 1668 mGy-cm. FINDINGS: CHEST: LUNGS: The lungs are clear with no evidence of inflammation or nodules. MEDIASTINUM: The mediastinum is normal. Central vascular structures are unremarkable. There are mild coronary artery atherosclerotic calcifications. There are shotty, nonpathologically enlarged mediastinal lymph nodes. There is no sizable hilar or mediastinal lymphadenopathy. PERICARDIUM/PLEURA: There is no significant effusion. No pleural mass or thickening. CHEST WALL/AXILLA: Unremarkable. ABDOMEN/PELVIS: LIVER, GALLBLADDER, BILIARY TREE: The liver is normal in size, shape, and attenuation. No focal hepatic lesion or biliary ductal dilatation is present. The gallbladder is surgically absent. PANCREAS: Unremarkable. SPLEEN: Unremarkable. ADRENAL GLANDS: Unremarkable. KIDNEYS AND URETERS: The kidneys are normal in size, shape, and attenuation. No hydronephrosis or hydroureter or calculi seen. No perinephric stranding. BLADDER: Unremarkable. GASTROINTESTINAL TRACT: The small and large bowel are unremarkable. The appendix is unremarkable. ABDOMINAL WALL: No significant hernia is demonstrated. LYMPH NODES: Normal. VASCULAR: Unremarkable. PELVIC VISCERA: The uterus and adnexa are unremarkable. An intrauterine device is noted. OSSEOUS STRUCTURES: There is multi-level very mild thoracolumbar spondylosis. Very mild degenerative disc disease is seen at L5-S1. No acute or aggressive osseous abnormality is seen. CT/CT abdomen pelvis w IV con IMPRESSION: No significant abnormality.
[2023-09-03] MEDS: iohexoL 350 MG/ML 100 ML INFUS..BTL IV (12:36)
[2023-09-03] MEDS: Barium Sulfate Oral (Vanilla) 450 ML ORAL.SUSP 900 ML PO (12:38)
== END 2023-09-03 09:53 | disposition home or self-care (01) ==
LOC: HO.CT 09:52
PROVIDERS: PCP Internal Medicine; Visit Provider Surgery
DX: D13.4 Benign neoplasm of liver (principal)
CPT/HCPCS: 71260; 74177; Q9967

== ENCOUNTER 2024-04-14 08:00 | Outpatient (AMB) | payer OTHER, SELFPAY ==
--- NOTE | 2024-04-14 08:41 | A.OFFWM_ITS ---
Intake Intake Visit Reasons: VIDEO OP Therapy Allergies Penicillins Allergy (Intermediate, Verified 04/20/24 13:01) Shortness of Breath pt states no food allergies Allergy (Unknown, Uncoded 04/20/24 13:01) Unknown [facility] Medical History (Updated 04/28/24 @ 08:39 by Perri Bolanos [facility]) Asthma Insomnia Neuropathy Breast calcification, right Adenocarcinoma determined by biopsy of liver Diabetic retinopathy Anxiety and depression GERD (gastroesophageal reflux disease) SOLE on CPAP ADHD Hyperlipidemia HTN (hypertension) with goal to be determined Diabetes mellitus Morbid obesity Surgical History History of cholecystectomy Family History Mother Diabetes Heart problem Father Hypertension Maternal Grandmother Primary cancer of bone marrow Maternal Grandfather Prostate cancer Social History Are you a primary manager home healthcare to a significant other at home: No Do you presently have visiting nurse or other home services: No Alcohol intake: never Patient Tobacco Use Status: Never used Tobacco Female Reproductive History Menstrual Age of Menarche: 13 Behavioral Health Assessment Weight Management Therapy Therapy Notes Details PT is a 48 year old who presents to re-establish care with this provider. She was seen before as part of surgical weight loss program, now interested in only counseling services. PT has a history of ADHD, anxiety with panic attacks, and depression. Currently sees a prescriber, Manuelito CLAROS, who currently prescribed with Vyvanze 70mg, Lorazepam 1mg (1 as needed), Prozac 20mg and Wellbutrin 300mg. PT reports she has been dealing with increased Sx of ADHD as the medication has been in shortage and this is impacting her functioning in personal life and at work. On the other hand, she has been transitioning to live alone after buying a home, while also waiting for her to move to the [place], which has been a very stressful process [place]. On the other hand, client has been dealing with medical concerns as she transitioned to a new health insurance and was not able to see her providers on time which lead her to not getting refills for medications on time. Today we focused on completing initial assessment, identifying goals and needs. We discussed informed consent, notice for private practices, HIPPA and confidentiality terms. [place] a [place] basis [place] [facility] [place]. Presenting Concerns Referral Source Self-referred. Reason for referral Continue behavioral health services. Living Situation Current Living Situation Own At risk of losing current housing? No Satisfied with current living situation? No Comments PT lives alone. Social History Family history and relationship PT is , previously after being for 15 years. She has no children. She has 2 siblings. Family is in [place] Parental/Familial bulb grader obligations None. Developmental history and status PT has an adult diagnosis of ADHD. Social support Friends, family, ex- and current . Community support unknown Restoration/Spirituality Advent Cultural/Ethnic information . Born and raised in [place]. [place] in [place] since [place]. Legal Involvement and History Current or historical involvement with the legal system? None Education Highest grade completed Two master's degree, Education and Mental Health Preferred learning style Verbal, Written, Learn by doing and Visual Currently enrolled in educational program? No Interested in further educational program? 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 No Meaningful activities Crafts, Traveling, journal. Financial Situation Describe current financial situation Comfortable and Occasional struggle Financial assistance? None Service Service? No Mental Health and Addiction Treatment Current/Past substance abuse? No Current/Past addictive behavior concerns? No Psychiatric history Pt reports she was diagnosed with ADHD in 2013. She went trough psych testing and has been on Medication since then. She was in therapy [facility] for a while but stopped after a year. She sees a prescriber on a regular basis. Pt denies hx of being hospitalized for mental health, and/or any self-harm/other-harm behavior issues. Medical and Physical Health Summary0 Additional Medical History not covered in history Medical issues reported: psoriasis, diabetes, sleep apnea, neuropathy. Sexual History concerns None reported. Physical exam in the last year? Yes Pain Screening Current pain? Yes Pain in the last few months? Yes Comments back pain and foot pain. Medications Is the patient compliant with medications? Yes Does the patient have Hearn Guardian in place? Not applicable Does the patient use complimentary health approaches? Yes Trauma/Abuse History History of trauma? No Assessment & Plan Assessment & Plan (1) ADHD: Code(s): F90.9 - Attention-deficit hyperactivity disorder, unspecified type Qualifiers: Attention deficit-hyperactivity disorder type: combined inattentive- hyperactive Qualified Code(s): F90.2 - Attention-deficit hyperactivity disorder, combined type (2) Panic disorder: Code(s): F41.0 - Panic disorder [episodic paroxysmal anxiety] (3) Depression, unspecified: Code(s): F32.A - Depression, unspecified Qualifiers: Depression Type: unspecified Qualified Code(s): F32.A - Depression, unspecified Plan PT will continue counseling on a bi-weekly basis with this provider to continue mental health services. Next jase we will complete [place] plan and PHQ-9 will be implemented. Next jase: 04/28/24 at 8am. Telehealth. Telehealth Telehealth Telehealth Platform: [facility] Location of provider rendering services: other ([place] [address]) Location of patient: address on file Patient Identification confirmed using: Name, : Yes Telehealth method: video Patient verbally consented to treatment: Yes Patient verbally consented to billing insurance company: Yes Patient informed of any privacy concerns related to visit: No Minutes spent on Phone/Video with Pt.: 70 (start time: 8:00am, End time:9:10am ) Coding Level of Care Code New Pt Tele Psy Diag Casi (64495) Patient Type New Diagnoses Attention deficit hyperactivity disorder (ADHD), combined type F90.2 Attention deficit-hyperactivity disorder type: combined inattentive- hyperactive Panic disorder F41.0 Depression, unspecified depression type F32.A Depression Type: unspecified Time Spent (min) 70 Comment start time: 8:00am, End time:9:10am
== END 2024-04-14 09:00 | disposition home or self-care (01) ==
LOC: HO.HOP 08:38
PROVIDERS: PCP Internal Medicine; Visit Provider Counselor Mental Health
DX: F90.2 Attention-deficit hyperactivity disorder, combined type (principal); F41.0 Panic disorder [episodic paroxysmal anxiety]; F32.A Depression, unspecified
CPT/HCPCS: 90791

== ENCOUNTER → 2024-04-14 08:00 | Outpatient (BNVA) | payer OTHER, SELFPAY | PROVIDERS: PCP Internal Medicine; Visit Provider Counselor Mental Health ==

== ENCOUNTER 2024-04-20 12:42 | Outpatient (AMB) | payer OTHER, SELFPAY ==
--- NOTE | 2024-04-20 12:53 | MHC.OFFVIS ---
Vital Signs 04/20/24 12:54 Height 5 ft 9 in Weight 353 lb 2.888 oz BMI 52.1 Intake Visit Reasons: follow up Intake Note: Patient present today to follow up on Type 2 Diabetes Mellitus. Last Diabetic Eye exam: Within the year Last Podiatry Visit: Does not see a Chaser Tar Random Glucose: 82 mg/dl HgA1C: 9.4% 04/20/24 Interior Assemblies Developer Prover Required: No Accompanied by: Self / Same As Patient Allergies Penicillins Allergy (Intermediate, Verified 04/20/24 13:01) Shortness of Breath pt states no food allergies Allergy (Unknown, Uncoded 04/20/24 13:01) Unknown Medication List - Last Reconciled 04/20/24 by Jean Esparza MD albuterol sulfate 90 mcg/actuation 2 puffs inhalation QID PRN atorvastatin 40 mg PO DAILY blood-glucose sensor ([employer] Alexei 3 Sensor device) USE DIRECTED AND CHANGE EVERY 14 DAYS bupropion HCl XL 300 mg PO DAILY cholecalciferol (vitamin D3) 125 mcg PO DAILY empagliflozin (Jardiance) 10 mg PO DAILY fluoxetine 20 mg PO DAILY gabapentin 300 mg PO TID insulin regular hum U-500 conc (Humulin R U-500 (Conc) Insulin Kwikpen) 20 units am, 20 units pm subcutaneously if over 200; lisdexamfetamine (Vyvanse) 70 mg PO DAILY lisinopril 10 mg PO DAILY lorazepam 1 mg PO DAILY PRN melatonin 10 mg PO BEDTIME PRN minoxidil 2.5 mg PO DAILY thiamine HCl (vitamin B1) 100 mg PO DAILY tirzepatide (Mounjaro) 5 mg (0.5 mL) subcut QWEEK vitamin A palmitate 10,000 units PO DAILY HPI Comments Details: 48 YO F who is seen in consultation for T2DM at the request of PCP. Initially diagnosed with T2DM in 2003 . previously saw endo at [facility] up to 2 yrs ago Was initially started on treatment with metformin .Was tolerated it . Took Jardiance in past and tolerated Current regimen Mounjaro 5 mg Qwkly not taking Humulin U-500 insulin 20 units in AM, 20 units before dinner not taking . Jardiance 10 mg Alexei download shows she is using the sensor 58% of the time. Average glucose is 224 with G mi of 8.7% and variability 24.3%. 22% in target range with 44% hyperglycemia 34% very hyperglycemic and no hypoglycemia. Patent shows persistent hyperglycemia throughout the day No Hypoglycemia Family history of T2DM in mother, sister , aunts . Has eyes checked yearly, last eye exam 11/2022 , Needs to make appt has retinopathy gets injections . Has neuropathy, not sees podiatry. Denies nephropathy, on KRISTAL/ARB. Has HLD, on statin. Denies CAD. Had diabetes education at [facility] . Going for bariatric surgery here at [facility] Medical History (Updated 08/12/23 @ 14:08 by Charles Walsh MD) Asthma Insomnia Neuropathy Breast calcification, right Adenocarcinoma determined by biopsy of liver Diabetic retinopathy Anxiety and depression GERD (gastroesophageal reflux disease) SOLE on CPAP ADHD Hyperlipidemia HTN (hypertension) with goal to be determined Diabetes mellitus Morbid obesity Surgical History History of cholecystectomy Family History Mother Diabetes Heart problem Father Hypertension Maternal Grandmother Primary cancer of bone marrow Maternal Grandfather Prostate cancer Social History Are you a primary pulmonary care nurse to a significant other at home: No Do you presently have visiting nurse or other home services: No Alcohol intake: never Patient Tobacco Use Status: Never used Tobacco Female Reproductive History Menstrual Age of Menarche: 13 Physical Exam Vital Signs: BMI result Body Mass Index 52.1 Absence of Cushingoid features. Absence of acromegalic features. Neck exam reveals nl size thyroid about 15 gms. No thyroid nodules palpable. No carotid bruits present. Lungs CTA. Heart S1 S2, Reg R/R. No M/R/ G. Skin exam reveals absence of vitiligo or acanthosis nigricans. Abdominal exam reveals Soft NT/ND with NA BS. No organomegaly present. Neck Other: . Extrem Other: Visual exam of foot performed. No ulcerations or open lesions. No onchomycosis, no callouses.Pulses 2 + distally Sensation intact to monofilament exam. Vibratory sensation sensed is decreased with 128 Hz tuning fork Results AMB Hemoglobin A1c AMB Hemoglobin A1c 9.4 % Last Edit by ANN Vinson on 04/20/24 13:23 Results Reviewed Results Reviewed: Laboratory Last Values Glucose (Clinic) 82 mg/dL (60-115) 04/20/24 13:10 Hgb A1c (Clinic) 9.4 % (4.0-6.0) H 04/20/24 13:22 Assessment & Plan Assessment & Plan (1) Diabetes mellitus: Code(s): E11.9 - Type 2 diabetes mellitus without complications Category: Medical Plan: This is a 48-year-old female with a history of type 2 diabetes being treated with Trulicity and U-500 insulin we will appears to be fair glycemic control and known microvascular complications namely retinopathy Plan is To resume the Mounjaro and U 500 insulin at previous dosages. Patient was told to call if she was not given access to either medication. I explained to her the correlation of poor glycemic control to development and progression complications. Will check lipid profile microalbumin to creatinine ratio. We will have her follow up with Nimo Vaughan NP in 4 weeks Orders: Orders Lipid Panel Today E11.9 - Type 2 diabetes mellitus without complications Microalbumin, Random (w Creat) Today E11.9 - Type 2 diabetes mellitus without complications AMB Hemoglobin A1c Today E11.9 - Type 2 diabetes mellitus without complications Medications: Refilled insulin regular hum U-500 conc (Humulin R U-500 (Conc) Insulin Kwikpen) 20 units am, 20 units pm subcutaneously if over 200; 6 mL 5RF empagliflozin (Jardiance) 10 mg PO DAILY 30 tabs 5RF tirzepatide (Mounjaro) 5 mg (0.5 mL) subcut QWEEK 2 mL 5RF Coding Level of Care Code Est Pt Level 4 (84933) Diagnoses Diabetes mellitus E11.9
[2024-04-20 12:54] VITALS: BMI 52.1
[2024-04-20 13:16] LABS: Glucose, Whole Blood 82 mg/dL (60-115)
== END 2024-04-20 13:23 | disposition home or self-care (01) ==
PROVIDERS: PCP Internal Medicine; Visit Provider Internal Medicine Endocrinology, Diabetes & Metabolism
DX: E11.9 Type 2 diabetes mellitus without complications (principal)
CPT/HCPCS: 99214

== ENCOUNTER → 2024-04-20 12:42 | Outpatient (BNVA) | payer OTHER, SELFPAY | PROVIDERS: PCP Internal Medicine; Visit Provider Internal Medicine Endocrinology, Diabetes & Metabolism | DX: E11.9 Type 2 diabetes mellitus without complications (principal); Z79.4 Long term (current) use of insulin | CPT/HCPCS: 82947; 83036 ==

== ENCOUNTER → 2024-04-28 08:08 | Outpatient (AMB) | payer OTHER, SELFPAY ==
--- NOTE | 2024-04-28 08:44 | A.OFFWM_ITS ---
Intake Intake Visit Reasons: VIDEO OP Therapy Allergies Penicillins Allergy (Intermediate, Verified 04/20/24 13:01) Shortness of Breath pt states no food allergies Allergy (Unknown, Uncoded 04/20/24 13:01) Unknown [facility] Medical History (Updated 04/28/24 @ 08:39 by Perri Bolanos [facility]) Asthma Insomnia Neuropathy Breast calcification, right Adenocarcinoma determined by biopsy of liver Diabetic retinopathy Anxiety and depression GERD (gastroesophageal reflux disease) SOLE on CPAP ADHD Hyperlipidemia HTN (hypertension) with goal to be determined Diabetes mellitus Morbid obesity Surgical History History of cholecystectomy Family History Mother Diabetes Heart problem Father Hypertension Maternal Grandmother Primary cancer of bone marrow Maternal Grandfather Prostate cancer Social History Are you a primary skin care consultant to a significant other at home: No Do you presently have visiting nurse or other home services: No Alcohol intake: never Patient Tobacco Use Status: Never used Tobacco Female Reproductive History Menstrual Age of Menarche: 13 Behavioral Health Assessment Weight Management Therapy Therapy Notes Details PT presents for a second visit via Telehealth. Today we continued with information gathering for CA and Tx plan was formulated. PT was open, active and engaged. We processed progress since last session regarding phone calls, medication and med appointments she had to coordinate. Also discussed Sx management. Plan: continue with bi-weekly sessions. Treatment Plan Date: 04/28/2024 Safety concerns: None. Problem 1: ADHD Symptoms Impacting Work and Personal Life Description: The client is experiencing symptoms of ADHD that are affecting both their work performance and personal life. This includes difficulties with concentration, organization, and managing time effectively. Goal 1: Increase the ability to manage symptoms of ADHD so that functioning is not impaired. Objective: Client will develop and implement strategies to improve concentration and organizational skills. Measurability: Client reports a 50% reduction in ADHD symptoms affecting daily functioning as measured by self-report scales and therapist observations. Interventions: - Utilize Cognitive Behavioral Therapy ( CBT) techniques to help the client identify and challenge negative thoughts related to their ability to manage tasks. This will include homework assignments where the client tracks their thoughts and behaviors related to task management. - Implement Mindfulness-Based Cognitive Therapy (MBCT) practices to help the client stay present and focused during tasks. This will involve guided mindfulness exercises during sessions and the recommendation to practice mindfulness techniques daily. - Apply Solution-Focused Brief Therapy ( SFBT) to set specific, achievable goals for task completion. The client will work with the therapist to outline steps and strategies to accomplish these goals, with a focus on leveraging existing strengths. Problem 2: Increase in Anxiety and Panic Symptoms Description: The client is experiencing heightened anxiety and panic symptoms, which are contributing to overall distress and impacting daily life. Goal 2: Manage sources of stress by implementing a variety of anxiety management techniques. Objective: Client will identify and practice anxiety management techniques to reduce overall anxiety levels. Measurability: Client reports a 40% reduction in anxiety and panic symptoms as measured by self-report scales and therapist observations. Interventions - Apply Mindfulness-Based Stress Reducti on (MBSR) techniques to help the client manage anxiety. This will include teaching the client specific mindfulness practices and encouraging daily practice to build resilience against stress. -Use Person-Centered Therapy (PCTh) to p rovide a supportive environment where the client can explore their feelings and experiences related to anxiety. This will help the client gain insight and develop self-compassion, which can reduce anxiety. Frecuency of Treatment: Every 2 weeks. Questionnaires PHQ-9 Over the last 2 weeks, how often have you been bothered by any of the following problems? 1. Little interest or pleasure in doing things: several days 2. Feeling down, depressed, or hopeless: several days 3. Trouble falling or staying asleep, or sleeping too much: several days 4. Feeling tired or having little energy: several days 5. Poor appetite or overeating: several days 6. Feeling bad about yourself - or that you are a failure or have let yourself or your family down: several days 7. Trouble concentrating on things, such as reading the newspaper or watching television: nearly every day 8. Moving or speaking so slowly that other people could have noticed. Or the opposite - being so fidgety or restless that you have been moving around a lot more than usual: not at all 9. Thoughts that you would be better off or of hurting yourself in some way: not at all Total score: 9 Depression Screening Interpretation: Positive Depression Screening Done: Yes [id number] - PHQ-9 Billing: Yes Source: Developed by Drs. Jean Retana, Emilia Valenzuela, Fernando Dick and colleagues, with an educational judy from [employer]. Assessment & Plan Assessment & Plan (1) ADHD: Code(s): F90.9 - Attention-deficit hyperactivity disorder, unspecified type Qualifiers: Attention deficit-hyperactivity disorder type: combined inattentive- hyperactive Qualified Code(s): F90.2 - Attention-deficit hyperactivity disorder, combined type (2) Panic disorder: Code(s): F41.0 - Panic disorder [episodic paroxysmal anxiety] (3) Depression, unspecified: Code(s): F32.A - Depression, unspecified Plan Bi-weekly sessions Next jase: 05/12 at 8am, telehealth. Telehealth Telehealth Telehealth Platform: Backchat Location of provider rendering services: other ([place] [address]) Location of patient: address on file Patient Identification confirmed using: Name, : Yes Telehealth method: video Patient verbally consented to treatment: Yes Patient verbally consented to billing insurance company: Yes Patient informed of any privacy concerns related to visit: No Minutes spent on Phone/Video with Pt.: 60 (start time: 8:00am, End time:9:00am ) Coding Level of Care Code Established Pt Tele Psytx >53 mins (35433) Patient Type Established Diagnoses Attention deficit hyperactivity disorder (ADHD), combined type F90.2 Attention deficit-hyperactivity disorder type: combined inattentive- hyperactive Panic disorder F41.0 Depression, unspecified F32.A Time Spent (min) 60
== END ==
LOC: HO.HOP 08:08
PROVIDERS: PCP Internal Medicine; Visit Provider Counselor Mental Health
DX: F90.2 Attention-deficit hyperactivity disorder, combined type (principal); F41.0 Panic disorder [episodic paroxysmal anxiety]; F32.A Depression, unspecified
CPT/HCPCS: 90837

== ENCOUNTER → 2024-04-28 08:08 | Outpatient (BNVA) | payer OTHER, SELFPAY | PROVIDERS: PCP Internal Medicine; Visit Provider Counselor Mental Health ==

== ENCOUNTER → 2024-05-12 08:00 | Outpatient (AMB) | payer OTHER, SELFPAY ==
--- NOTE | 2024-05-12 08:00 | A.OFFWM_ITS ---
Intake Intake Visit Reasons: VIDEO OP Therapy Allergies Penicillins Allergy (Intermediate, Verified 04/20/24 13:01) Shortness of Breath pt states no food allergies Allergy (Unknown, Uncoded 04/20/24 13:01) Unknown [facility] Medical History (Updated 04/28/24 @ 08:39 by Perri Bolanos [facility]) Asthma Insomnia Neuropathy Breast calcification, right Adenocarcinoma determined by biopsy of liver Diabetic retinopathy Anxiety and depression GERD (gastroesophageal reflux disease) SOLE on CPAP ADHD Hyperlipidemia HTN (hypertension) with goal to be determined Diabetes mellitus Morbid obesity Surgical History History of cholecystectomy Family History Mother Diabetes Heart problem Father Hypertension Maternal Grandmother Primary cancer of bone marrow Maternal Grandfather Prostate cancer Social History Are you a primary career services assistant to a significant other at home: No Do you presently have visiting nurse or other home services: No Alcohol intake: never Patient Tobacco Use Status: Never used Tobacco Female Reproductive History Menstrual Age of Menarche: 13 Behavioral Health Assessment Weight Management Therapy Therapy Notes Details Subjective: PT reports feeling stressed due to some worries around her sister's health and recent new work-related stress. PT dealing with mild panic-like Sx Objective: PT presents for a follow up visit via Telehealth. Processed sources of stress and reflected on Sx triggered and current responses. Reflective listening and CPT implemented for Sx management. Assessment/Response: * Mental status: stressed * Risk reported/identified: None PT was open and active and responded well to modalities used. Plan: F/up in 2 weeks. Assessment & Plan Assessment & Plan (1) ADHD: Code(s): F90.9 - Attention-deficit hyperactivity disorder, unspecified type Qualifiers: Attention deficit-hyperactivity disorder type: combined inattentive- hyperactive Qualified Code(s): F90.2 - Attention-deficit hyperactivity disorder, combined type (2) Panic disorder: Code(s): F41.0 - Panic disorder [episodic paroxysmal anxiety] (3) Depression, unspecified: Code(s): F32.A - Depression, unspecified Plan Bi-weekly sessions Next jase: 05/26/24 at 8am, telehealth. Telehealth Telehealth Telehealth Platform: [employer]Pl[employer] Location of provider rendering services: other ([place] [address]) Location of patient: address on file Patient Identification confirmed using: Name, : Yes Telehealth method: video Patient verbally consented to treatment: Yes Patient verbally consented to billing insurance company: Yes Patient informed of any privacy concerns related to visit: Yes Minutes spent on Phone/Video with Pt.: 75 Coding Level of Care Code Established Pt Psytx >53 mins (92408) Patient Type Established Diagnoses Attention deficit hyperactivity disorder (ADHD), combined type F90.2 Attention deficit-hyperactivity disorder type: combined inattentive- hyperactive Panic disorder F41.0 Depression, unspecified F32.A Time Spent (min) 75 Comment Start time: 8:00am, End time: 9:15am.
== END ==
LOC: HO.HOP 08:12
PROVIDERS: PCP Internal Medicine; Visit Provider Counselor Mental Health
DX: F90.2 Attention-deficit hyperactivity disorder, combined type (principal); F41.0 Panic disorder [episodic paroxysmal anxiety]; F32.A Depression, unspecified
CPT/HCPCS: 90837

== ENCOUNTER → 2024-05-12 08:00 | Outpatient (BNVA) | payer OTHER, SELFPAY | PROVIDERS: PCP Internal Medicine; Visit Provider Counselor Mental Health ==

== ENCOUNTER 2024-05-25 12:52 | Outpatient (REF) | payer OTHER, SELFPAY ==
--- NOTE | ~2024-05-25 | MM_ITS ---
EXAMINATION: MM DIAGNOSTIC DIGITAL BREAST TOMOSYNTHESIS, BILATERAL CLINICAL INFORMATION: Six-month follow-up for histologically benign calcifications after biopsy; 2 site stereotactic biopsy 05/08/2023 right breast for benign histology group of calcifications central slightly upper slightly lateral aspect (buckle shaped clip), and right more anterior upper outer group of benign histology loosely grouped calcifications (top hat shaped clip). COMPARISON: Mammography: 04/30/2023, 04/09/2023. -Stereotactic biopsy 2 sites microcalcifications right breast 05/08/2023. (Benign) TECHNIQUE: Digital breast tomosynthesis is performed in both the craniocaudal and mediolateral oblique views along with computer-aided detection (CAD). Synthesized 2D images are generated from the tomosynthesis. In addition to standard views, 2-D spot magnification right CC x3, and right ML and 1 views were obtained. In addition, added full-field 3-D right MLO view was also obtained. FINDINGS: There are scattered areas of fibroglandular density (ACR BI-RADS breast composition Category b). Buckle shaped biopsy clip noted right breast central, slightly upper, slightly lateral region with a few scattered residual punctate calcifications. No aggressive changes or new calcifications. Top hat shaped biopsy clip noted right breast, anterior, upper outer region with a few scattered residual punctate calcifications. No aggressive changes are new calcifications. There are vascular calcifications. There are no suspicious masses, suspicious grouped calcifications, or areas of architectural distortion in either breast. The parenchymal pattern is stable from prior exams. There is no skin or axillary abnormality. MM/MM tomosynthesis diagnostic BI IMPRESSION: -There are no findings suspicious for malignancy in either breast. -2 site post stereotactic biopsy right breast shows stable scattered residual punctate calcifications with no new calcifications or aggressive changes. Findings are benign. -Recommend the patient resume routine annual screening mammography. ASSESSMENT: BI-RADS BI-RADS 2 - Benign Findings RECOMMENDATION: 1 year F/U Results were provided to the patient at time of visit by the technologist. This patient's information was entered into a reminder system with a target due date for their next mammogram. Electronically signed by: Lorenzo Rueda MD 05/25/2024 04:09 PM EDT
== END 2024-05-25 12:53 | disposition home or self-care (01) ==
LOC: HO.MAMMO 12:52
PROVIDERS: PCP Internal Medicine; Visit Provider Surgery
DX: R92.1 Mammographic calcification found on diagnostic imaging of breast (principal)
CPT/HCPCS: 77062; 77066

== ENCOUNTER → 2024-05-25 13:00 | Outpatient (BNV) | payer OTHER, SELFPAY | PROVIDERS: PCP Internal Medicine; Visit Provider Radiology Diagnostic Radiology | DX: R92.1 Mammographic calcification found on diagnostic imaging of breast (principal) | CPT/HCPCS: 77062; 77066 ==

== ENCOUNTER 2024-05-26 08:27 | Outpatient (AMB) | payer OTHER, SELFPAY ==
--- NOTE | 2024-05-26 08:30 | A.OFFWM_ITS ---
Intake Intake Visit Reasons: VIDEO OP Therapy Allergies Penicillins Allergy (Intermediate, Verified 05/26/24 10:01) Shortness of Breath pt states no food allergies Allergy (Unknown, Uncoded 05/26/24 10:01) Unknown [facility] Medical History Type 2 diabetes mellitus with retinopathy Asthma Insomnia Neuropathy Breast calcification, right Adenocarcinoma determined by biopsy of liver Diabetic retinopathy Anxiety and depression GERD (gastroesophageal reflux disease) SOLE on CPAP ADHD Hyperlipidemia HTN (hypertension) with goal to be determined Diabetes mellitus Morbid obesity Surgical History History of cholecystectomy Family History Mother Diabetes Heart problem Father Hypertension Maternal Grandmother Primary cancer of bone marrow Maternal Grandfather Prostate cancer Social History Are you a primary landcare facilitator to a significant other at home: No Do you presently have visiting nurse or other home services: No Alcohol intake: never Patient Tobacco Use Status: Never used Tobacco Female Reproductive History Menstrual Age of Menarche: 13 Behavioral Health Assessment Weight Management Therapy Therapy Notes Details Subjective: PT reports doing better this week. Denies recent Panic attacks and still dealing with preoccupation for her sister's health. Objective: PT presents for a F/up visit via Telehealth . CBT-based interventions implemented in today's session Discussed functioning and challenges. Worked in sx management. Reflective listening, Validation of feelings, constructive feedback provided. Assessment/Response: * Mental status:Stressed but not depressed. Good functioning. * Risk reported/identified: None. Active, engaged. PT responded well to interventions. Assessment & Plan Assessment & Plan (1) ADHD: Code(s): F90.9 - Attention-deficit hyperactivity disorder, unspecified type Qualifiers: Attention deficit-hyperactivity disorder type: combined inattentive- hyperactive Qualified Code(s): F90.2 - Attention-deficit hyperactivity disorder, combined type (2) Panic disorder: Code(s): F41.0 - Panic disorder [episodic paroxysmal anxiety] (3) Depression, unspecified: Code(s): F32.A - Depression, unspecified Plan Bi-weekly sessions Next jase: 06/09/24 at 8am, telehealth. Telehealth Telehealth Telehealth Platform: Networker Location of provider rendering services: other Location of patient: address on file Patient Identification confirmed using: Name, : Yes Telehealth method: voice only Patient verbally consented to treatment: Yes Patient verbally consented to billing insurance company: Yes Patient informed of any privacy concerns related to visit: Yes Minutes spent on Phone/Video with Pt.: 50 Coding Level of Care Code Established Pt Tele Psytx 45 mins (16810) Patient Type Established Diagnoses Attention deficit hyperactivity disorder (ADHD), combined type F90.2 Attention deficit-hyperactivity disorder type: combined inattentive- hyperactive Panic disorder F41.0 Depression, unspecified F32.A Time Spent (min) 50 Comment Start time: 8:10am, End time: 9:00am.
== END 2024-05-26 09:00 | disposition home or self-care (01) ==
LOC: HO.HOP 08:27
PROVIDERS: PCP Internal Medicine; Visit Provider Counselor Mental Health
DX: F90.2 Attention-deficit hyperactivity disorder, combined type (principal); F41.0 Panic disorder [episodic paroxysmal anxiety]; F32.A Depression, unspecified
CPT/HCPCS: 90834

== ENCOUNTER → 2024-05-26 08:27 | Outpatient (BNVA) | payer OTHER, SELFPAY | PROVIDERS: PCP Internal Medicine; Visit Provider Counselor Mental Health | DX: E11.319 Type 2 diabetes mellitus with unspecified diabetic retinopathy without macular edema (principal); E11.40 Type 2 diabetes mellitus with diabetic neuropathy, unspecified | CPT/HCPCS: 82947 ==

== ENCOUNTER 2024-05-26 09:59 | Outpatient (AMB) | payer OTHER, SELFPAY ==
--- NOTE | 2024-05-26 08:01 | A.OFFVIS_ITS ---
Vital Signs 05/26/24 10:02 Height 5 ft 9 in Weight 348 lb 5.286 oz BMI 51.4 BP 128/78 Blood Pressure Location Rt brachial Position Sitting Pulse 84 Pulse Source Pulse Oximeter Intake Visit Reasons: T2DM/UNABLE TO LVM Intake Note: Patient present today to follow up on Type 2 Diabetes Mellitus. Last Diabetic Eye exam: 2023 Last Podiatry Visit: Does not see a Investment Advisor Most Recent HgA1C: 9.4% 04/20/24 Random Glucose: 205 mg/dL, Today Scientific Programmer Analyst Required: No Accompanied by: Self / Same As Patient Allergies Penicillins Allergy (Intermediate, Verified 05/26/24 10:01) Shortness of Breath pt states no food allergies Allergy (Unknown, Uncoded 05/26/24 10:01) Unknown HPI Comments Details: 48 YO F who is seen in f/u for T2DM. She was last seen by Dr. Esparza on 04/20/24 at which time Mounjaro and Humulin U500 insulin were restarted. Hemoglobin A1c 04/20/2024 9.4%, 06/2023 7.9%. She will be seeing the bariatric clinic in July. She has gone through all of the preliminary work towards getting approved for bariatric in the past which was held off due to a liver workup. The workup was negative for cancer and she is ready to pursue bariatric surgery Initially diagnosed with T2DM in 2003. Was previously followed at [facility] endocrine up until . Was initially started on treatment with metformin. Current regimen: Mounjaro 5 mg Qwkly Humulin U-500 insulin 20 units in AM, 20 units before dinner . Jardiance 10 mg She reports she is only taking the insulin a few times per week as she is afraid she might go low and has had some hypoglycemia in the past on the U 500 insulin. She gives an example of taking the 20 units with a glucose of 230 and then dropping low afterwards Freestyle alexei sensor 3 average glucose: 191 14 day continuous glucose sensor report reviewed Glucose Management indicator 7.9 % TIme in ranges: Four % very high (above 250) 59 % high (181-250) 37 % in range (70-180] 0 % low (69-55) 0 % very low (below 54) 17% was Glucose variability (target <36%) Interpretation of CGMS [ ] Family history of T2DM in mother, sister, aunts. Has eyes checked yearly, last eye exam 11/2022, Needs to make appt, has contact info, has retinopathy gets injections. Has neuropathy, complaints of intermittent numbness and tingling in feet. On gabapentin. Had increased sympoms and pain off gabapentin. Denies cramping lower extremities. Does not see podiatry. No nephropathy, on KRISTAL. Last microalbumin 06/2019 20.0 01/2023 eGFR>60 Has HLD, on statin no lipid profile in EHR Denies CAD. Had diabetes education at [facility]. Going for bariatric surgery here at [facility] Medical History Type 2 diabetes mellitus with retinopathy Asthma Insomnia Neuropathy Breast calcification, right Adenocarcinoma determined by biopsy of liver Diabetic retinopathy Anxiety and depression GERD (gastroesophageal reflux disease) SOLE on CPAP ADHD Hyperlipidemia HTN (hypertension) with goal to be determined Diabetes mellitus Morbid obesity Surgical History History of cholecystectomy Family History Mother Diabetes Heart problem Father Hypertension Maternal Grandmother Primary cancer of bone marrow Maternal Grandfather Prostate cancer Social History Are you a primary landcare officer to a significant other at home: No Do you presently have visiting nurse or other home services: No Alcohol intake: never Patient Tobacco Use Status: Never used Tobacco Female Reproductive History Menstrual Age of Menarche: 13 Physical Exam Vital Signs: Last Vital Signs Pulse 84 05/26/24 10:02 BP 128/78 05/26/24 10:02 BMI result Body Mass Index 51.4 Const Other: obese.Absence of Cushingoid features. Absence of acromegalic features. Neck exam reveals nl size thyroid about 15 gms. No thyroid nodules palpable. Heart S1 S2, Reg R/R. No M/R G. Skin exam reveals absence of vitiligo or acanthosis nigricans. Visual exam of foot performed. No ulcerations or open lesions. No inter digit m aceration or fissuring. No onychomycosis, mild callous left 5th toe, skin try Sensation diminished to monofilament exam. Vibratory sensation is diminished with 128 Hz tuning fork. Office Procedures Glucose Monitoring Details Details: See [facility] [address] - Glucose monitoring, continuous-physician I&R Procedure code (CPT) selection complete Assessment & Plan Assessment & Plan (1) Type 2 diabetes mellitus with retinopathy: Code(s): E11.319 - Type 2 diabetes mellitus with unspecified diabetic retinopathy without macular edema Category: Medical Plan: 48-year-old type 2 diabetic with a retinopathy and neuropathy with poorly controlled diabetes. Freestyle Alexei 3 sensor shows a GME my of 7.9% which is down substantially from her previous over 14% when she had stopped all medications. She is fearful of U500 causing lows and is only taking this a few times per week. We will increase Mounjaro to 7.5 mg in a prescription was sent for this and also Tresiba U 220 units to be taken once daily. She was advised that when she starts a bariatric diet, if her sugars are well-controlled she may need to stop the insulin 2 days prior and see how her numbers run. She was counseled to achieve an average of 154 glucose. She will schedule an eye examination as she is overdue and has retinopathy. She declined podiatry. She was asked to have fasting blood work and urine test. Orders: Orders Comprehensive Met. Panel Today E11.319 - Type 2 diabetes mellitus with unspecified diabetic retinopathy without macular edema AMB Glucose Monitoring Today E11.319 - Type 2 diabetes mellitus with unspecified diabetic retinopathy without macular edema Medications: New tirzepatide (Mounjaro) 7.5 mg (0.5 mL) subcut QWEEK 28 days 2 mL 6RF insulin degludec (Tresiba FlexTouch U-200 insulin) 20 units (0.1 mL) subcut MONIK LY 30 days 3 mL 6RF Discontinued insulin regular hum U-500 conc (Humulin R U-500 (Conc) Insulin Kwikpen) Discontinued Reason: Doctor's Order 20 units am, 20 units pm subcutaneously if over 200; 6 mL 5RF tirzepatide (Mounjaro) Discontinued Reason: Doctor's Order 5 mg (0.5 mL) subcut QWEEK 2 mL 5RF Patient Instructions: The patient was counseled to always carry a source of sugar and on the rule of 15's: Take 3 glucose tablets and repeat again in 15 minutes if blood sugar is not in normal range. Continue to repeat every 15 minutes until blood sugar is normal. The patient was counseled to achieve a target A1C of 7% (154 avg). Fasting blood sugars should be 90-130 in the morning and less than 180 two hours after meals. Reviewed the relationship between poor diabetic control and the development of complications. Coding Level of Care Code Est Pt Level 5 (63520) Diagnoses Type 2 diabetes mellitus with retinopathy E11.319 CPT Codes Details - CPT: 31220 - Glucose monitoring, continuous-physician I&R ([id number]) Time Spent (min) 57 Comment Time spent reviewing labs/provider notes, glucose,sensor reports, face to face, chart doc
[2024-05-26 10:02] VITALS: BP 128/78; PULSE 84; BMI 51.4
[2024-05-26 10:11] LABS: Glucose, Whole Blood 205 mg/dL (60-115)
== END 2024-05-26 10:39 | disposition home or self-care (01) ==
PROVIDERS: PCP Internal Medicine; Visit Provider Nurse Practitioner Adult Health
DX: E11.319 Type 2 diabetes mellitus with unspecified diabetic retinopathy without macular edema (principal)
CPT/HCPCS: 95251; 99215; 99417

== ENCOUNTER → 2024-06-09 08:15 | Outpatient (AMB) | payer OTHER, SELFPAY ==
--- NOTE | 2024-06-09 08:00 | A.OFFWM_ITS ---
Intake Intake Visit Reasons: VIDEO OP Therapy Allergies Penicillins Allergy (Intermediate, Verified 05/26/24 10:01) Shortness of Breath pt states no food allergies Allergy (Unknown, Uncoded 05/26/24 10:01) Unknown PFSH Medical History Type 2 diabetes mellitus with retinopathy Asthma Insomnia Neuropathy Breast calcification, right Adenocarcinoma determined by biopsy of liver Diabetic retinopathy Anxiety and depression GERD (gastroesophageal reflux disease) SOLE on CPAP ADHD Hyperlipidemia HTN (hypertension) with goal to be determined Diabetes mellitus Morbid obesity Surgical History History of cholecystectomy Family History Mother Diabetes Heart problem Father Hypertension Maternal Grandmother Primary cancer of bone marrow Maternal Grandfather Prostate cancer Social History Are you a primary ocular care aide to a significant other at home: No Do you presently have visiting nurse or other home services: No Alcohol intake: never Patient Tobacco Use Status: Never used Tobacco Female Reproductive History Menstrual Age of Menarche: 13 Behavioral Health Assessment Weight Management Therapy Therapy Notes Details Subjective: PT presents dealing with conflicted feelings around interpersonal relationships. Some anxiety/stress due to family events. Objective: PT presents for a follow up visit via Telehealth. Active and reflective listening to process concerns and triggering events. CBT/CPT implemented for Sx management. Constructive feedback provided for decision making and problem solving. Assessment/Response: * Mental status: Alert, open, active, engaged. Anxious but good functioning. * Risk reported/identified: None. PT Showed insight and responded well to interventions. Modality was appropriate to current needs. Plan: Continue with bi-weekly sessions. Assessment & Plan Assessment & Plan (1) ADHD: Code(s): F90.9 - Attention-deficit hyperactivity disorder, unspecified type Qualifiers: Attention deficit-hyperactivity disorder type: combined inattentive- hyperactive Qualified Code(s): F90.2 - Attention-deficit hyperactivity disorder, combined type (2) Panic disorder: Code(s): F41.0 - Panic disorder [episodic paroxysmal anxiety] (3) Depression, unspecified: Code(s): F32.A - Depression, unspecified Plan Bi-weekly sessions Next jase: 06/23/24 at 8am, telehealth. Telehealth Telehealth Telehealth Platform: [employer] Location of provider rendering services: other ([place] [address]) Location of patient: address on file Patient Identification confirmed using: Name, : Yes Telehealth method: video Patient verbally consented to treatment: Yes Patient verbally consented to billing insurance company: Yes Patient informed of any privacy concerns related to visit: Yes Minutes spent on Phone/Video with Pt.: 60 Coding Level of Care Code Established Pt Tele Psytx >53 mins (08389) Patient Type Established Diagnoses Attention deficit hyperactivity disorder (ADHD), combined type F90.2 Attention deficit-hyperactivity disorder type: combined inattentive- hyperactive Panic disorder F41.0 Depression, unspecified F32.A Time Spent (min) 60
== END ==
LOC: HO.HOP 08:15
PROVIDERS: PCP Internal Medicine; Visit Provider Counselor Mental Health
DX: F90.2 Attention-deficit hyperactivity disorder, combined type (principal); F41.0 Panic disorder [episodic paroxysmal anxiety]; F32.A Depression, unspecified
CPT/HCPCS: 90837

== ENCOUNTER → 2024-06-23 08:13 | Outpatient (BNVA) | payer OTHER, SELFPAY | PROVIDERS: PCP Internal Medicine; Visit Provider Counselor Mental Health ==

== ENCOUNTER → 2024-06-23 08:13 | Outpatient (AMB) | payer OTHER, SELFPAY ==
--- NOTE | 2024-06-23 08:00 | A.OFFWM_ITS ---
Intake Intake Visit Reasons: VIDEO OP Therapy Allergies Penicillins Allergy (Intermediate, Verified 05/26/24 10:01) Shortness of Breath pt states no food allergies Allergy (Unknown, Uncoded 05/26/24 10:01) Unknown PFS Medical History Type 2 diabetes mellitus with retinopathy Asthma Insomnia Neuropathy Breast calcification, right Adenocarcinoma determined by biopsy of liver Diabetic retinopathy Anxiety and depression GERD (gastroesophageal reflux disease) SOLE on CPAP ADHD Hyperlipidemia HTN (hypertension) with goal to be determined Diabetes mellitus Morbid obesity Surgical History History of cholecystectomy Family History Mother Diabetes Heart problem Father Hypertension Maternal Grandmother Primary cancer of bone marrow Maternal Grandfather Prostate cancer Social History Are you a primary career development manager to a significant other at home: No Do you presently have visiting nurse or other home services: No Alcohol intake: never Patient Tobacco Use Status: Never used Tobacco Female Reproductive History Menstrual Age of Menarche: 13 Behavioral Health Assessment Weight Management Therapy Therapy Notes Details Subjective: Patient reports feeling stressed and worn-out due to her current workload. She describes feeling overwhelmed by responsibilities and pressures at work. On a positive note, the patient expresses happiness and excitement about her receiving good news and soon being able to join her in the [place]. This brings a sense of relief and catarino amidst the current stressors. Objective: PT presents for a follow up visit via Telehealth. . Patient appears engaged during the session but visibly fatigued, reflecting the stress from her workload. The patient demonstrates a mix of emotions, with moments of tension when discussing work and moments of happiness when sharing the news about her . Engaged in reflective listening to process work-related stress and explore emotional reactions to her 's situation. Explored stress management techniques, including setting boundaries at work, prioritizing tasks, and using relaxation techniques to cope with workload stress. Assessment/Response: * Mental status: anxious. mild functioning issues. * Risk reported/identified: WNL The patient is aware of the need for balance but seems to be struggling to manage her stress effectively. Assessment & Plan Assessment & Plan (1) ADHD: Code(s): F90.9 - Attention-deficit hyperactivity disorder, unspecified type Qualifiers: Attention deficit-hyperactivity disorder type: combined inattentive- hyperactive Qualified Code(s): F90.2 - Attention-deficit hyperactivity disorder, combined type (2) Panic disorder: Code(s): F41.0 - Panic disorder [episodic paroxysmal anxiety] (3) Depression, unspecified: Code(s): F32.A - Depression, unspecified Plan Encourage the patient to focus on self-care and managing expectations, especially with her 's upcoming arrival. Follow-up in 2 weeks to assess progress in stress management and discuss additional coping strategies. Next jase: 07/07/2024 at 8am, telehealth. Telehealth Telehealth Telehealth Platform: [employer] Location of provider rendering services: other ([place] [address]) Location of patient: address on file Patient Identification confirmed using: Name, : Yes Telehealth method: video Patient verbally consented to treatment: Yes Patient verbally consented to billing insurance company: Yes Patient informed of any privacy concerns related to visit: Yes Minutes spent on Phone/Video with Pt.: 60 Coding Level of Care Code Established Pt Tele Psytx >53 mins (91180) Patient Type Established Diagnoses Attention deficit hyperactivity disorder (ADHD), combined type F90.2 Attention deficit-hyperactivity disorder type: combined inattentive- hyperactive Panic disorder F41.0 Depression, unspecified F32.A Time Spent (min) 60
== END ==
LOC: HO.HOP 08:14
PROVIDERS: PCP Internal Medicine; Visit Provider Counselor Mental Health
DX: F90.2 Attention-deficit hyperactivity disorder, combined type (principal); F41.0 Panic disorder [episodic paroxysmal anxiety]; F32.A Depression, unspecified
CPT/HCPCS: 90837

== ENCOUNTER 2024-07-07 08:10 | Outpatient (AMB) | payer OTHER, SELFPAY ==
--- NOTE | 2024-07-07 08:05 | A.OFFWM_ITS ---
Intake Intake Visit Reasons: VIDEO OP Therapy Allergies Penicillins Allergy (Intermediate, Verified 05/26/24 10:01) Shortness of Breath pt states no food allergies Allergy (Unknown, Uncoded 05/26/24 10:01) Unknown [facility] Medical History Type 2 diabetes mellitus with retinopathy Asthma Insomnia Neuropathy Breast calcification, right Adenocarcinoma determined by biopsy of liver Diabetic retinopathy Anxiety and depression GERD (gastroesophageal reflux disease) SOLE on CPAP ADHD Hyperlipidemia HTN (hypertension) with goal to be determined Diabetes mellitus Morbid obesity Surgical History History of cholecystectomy Family History Mother Diabetes Heart problem Father Hypertension Maternal Grandmother Primary cancer of bone marrow Maternal Grandfather Prostate cancer Social History Are you a primary critical care paramedic to a significant other at home: No Do you presently have visiting nurse or other home services: No Alcohol intake: never Patient Tobacco Use Status: Never used Tobacco Female Reproductive History Menstrual Age of Menarche: 13 Behavioral Health Assessment Weight Management Therapy Therapy Notes Details Subjective: Client reports feeling [place] baja (low mood), experiencing a mix of tiredness and low motivation. She describes symptoms resembling burnout, feeling emotionally drained and lacking energy. The client expresses difficulty in finding the motivation to engage in daily activities and feels overwhelmed by her current state. Objective: Client presented for a follow-up session via Telehealth. Active listening was used to validate her emotional state and explore underlying thoughts contributing to her low mood. Cognitive Behavioral Therapy (CBT) techniques were applied to identify and challenge negative thinking patterns, such as feelings of inadequacy and self-doubt. Psychoeducation was provided on recognizing burnout symptoms and the importance of self-compassion in recovery. Assessment/Response: * Mental status: Client is oriented x3, alert, and presenting with low mood and fatigue. Reports mild functioning difficulties related to motivation and energy levels. * Risk reported/identified: Client is engaged in the session and responsive to interventions, though she continues to struggle with feelings of burnout and low mood. Assessment & Plan Assessment & Plan (1) ADHD: Code(s): F90.9 - Attention-deficit hyperactivity disorder, unspecified type Qualifiers: Attention deficit-hyperactivity disorder type: combined inattentive- hyperactive Qualified Code(s): F90.2 - Attention-deficit hyperactivity disorder, combined type (2) Panic disorder: Code(s): F41.0 - Panic disorder [episodic paroxysmal anxiety] (3) Depression, unspecified: Code(s): F32.A - Depression, unspecified Plan Continue using CBT to address negative thought patterns contributing to low mood and burnout. Introduce strategies for improving motivation, such as small, achievable goals and self-compassion practices. Encourage self-care routines to help mitigate burnout. Next jase: 07/21/2024 at 8am, telehealth. Telehealth Telehealth Telehealth Platform: [employer] Location of provider rendering services: other Location of patient: address on file Patient Identification confirmed using: Name, : Yes Telehealth method: video Patient verbally consented to treatment: Yes Patient verbally consented to billing insurance company: Yes Patient informed of any privacy concerns related to visit: Yes Minutes spent on Phone/Video with Pt.: 60 Coding Level of Care Code Established Pt Tele Psytx >53 mins (60096) Patient Type Established Diagnoses Attention deficit hyperactivity disorder (ADHD), combined type F90.2 Attention deficit-hyperactivity disorder type: combined inattentive- hyperactive Panic disorder F41.0 Depression, unspecified F32.A Time Spent (min) 60
--- OUTSIDE RECORDS SUMMARY | 2024-07-07 08:13 | XMS_ITS | Continuity of Care Document ---
Author Organization [facility] Address [address] [place] [address], [address] [place] [address]- Care Team Providers Care Mechanical Lead Name Role Phone John Campbell MD, Braulio Primary Care Phys ician [place] [facility] [place] Date(s): 07/31/23 - 08/30/23 [facility] [address], [address] [place] [address]- Allergies, Adverse Reactions, Alerts Substance Reaction Severity Status penicillins ?reaction Active Medications 14 day marisela reader 14 day marisela reader, See Instructions, # 1 each, Refills 0, Tot. Refills 0, Maintenance, E11.9: Fortesting glucose levels: [facility] [id number], 04/13/20 12:21:00 EDT, Compound, 175, cm, 04/13/20 8:36:00 EDT, Height Start Date: 04/13/20 Status: Ordered 14 day marisela sensor 14 day marisela sensor, See Instructions, # 2 each, Refills 11, Tot. Refills 11, Maintenance, E 11.9: for testing glucose lev els. [facility] [id number], 05/31/21 15:14:00 EDT, Compound, 175, cm, 04/03/21 16:27:00 EDT, Height Start Date: 05/31/21 Status: Ordered Adderall XR By Mouth, Daily in AM, 0 Refills, Maintenance, 07/23/16 9:32:41 Start Date: 07/23/16 Status: Ordered atorvastatin 40 mg oral tablet 1 tablet = 40 mg, By Mouth, Daily, 0 Refills, Maintenance, 04/13/20 8:44:00 EDT Start Date: 9/9/20 Status: Ordered Biotin = 5,000 mcg, By Mouth, 2 times a day, 0 Refills, Maintenance, 06/10/14 9:29:20 Start Date: 06/10/14 Status: Ordered clobetasol 0.05% topical cream 1 applicator, Topically, 2 times a day, 0 Refills, Maintenance, 05/17/16 11:15:05 Start Date: 05/17/16 Status: Ordered Fluoxetine By Mouth, 0 Refills, Maintenance, 04/13/20 8:43:00 EDT Start Date: 04/13/20 Status: Ordered folic acid 1 mg oral tablet = 1,000 mcg, By Mouth, 2 times a day, 0 Refills, Maintenance, 06/10/14 9:28:34 Start Date: 06/10/14 Status: Ordered freestyle precision renny test strips freestyle precision renny test strips, See Instructions, # 150 each, Refills 11, Tot. Refills 11, Maintenance, to check sugars 4x a day when sensor fails. E 11.9, 08/24/20 10:54:00 EST, Supply, 175, cm, 04/13/20 8:36:00 EDT, Height Start Date: 08/24/20 Status: Ordered HumuLIN R KwikPen (Concentrated) human recombinant 500 units/mL subcutaneous solution See Instructions, take upto 50 units 2x a day E 11.9 Max daily dose 120 units (allow room for titration), # 35 mL, 11 Refills, Maintenance, 04/03/21 16:57:00 EDT, [facility], 175, cm, 04/03/21 16:27:00 EDT, Height Start Date: 04/03/21 Status: Ordered Humulin R U-500 (Concentrated) Subcutaneous Infusion, 0 Refills, Maintenance, 05/17/16 11:17:43 Start Date: 05/17/16 Status: Ordered ibuprofen 800 mg oral tablet 800 mg, 1, tablet, By Mouth, 3 times a day, Refills 0, Maintenance, 09/05/17 8:31:48 Start Date: 09/05/17 Status: Ordered Liletta 52 mg intrauteral device 1 each = 52 mg, Intrauterine, Once, # 1 each, 0 Refills, Soft Stop, 07/18/16 15:22:09, Please call patient at [phone] to obtain insurance information; Needs device shipped by 07/27/16; Any questions, call office at [phone], opt 1 (attn: Solange) Start Date: 07/18/16 Status: Ordered lisinopril 10 mg oral tablet 10 mg, 1, tablet, By Mouth, Daily, Refills 0, Maintenance, 05/17/16 11:14:48 Start Date: 05/17/16 Status: Ordered LORazepam 1 mg oral tablet 1 tablet = 1 mg, By Mouth, 3 times a day, 0 Refills, Maintenance, 05/17/16 11:15:32 Start Date: 05/17/16 Status: Ordered Melatonin 5 mg oral tablet = 10 mg, By Mouth, Daily at bedtime, PRN for insomnia, # 60 tablet, 0 Refills, Maintenance, 06/10/14 9:29:58, Tablet Start Date: 06/10/14 Status: Ordered Pen [place], 31 G x 8 mm BD Ultra Fine III See Instructions, # 100 each, Refills 11, Tot. Refills 11, Maintenance, Use to inject with insulin up to 3 times a day, E11.9, 08/24/20 10:51:00 EST, Supply, 175, cm, 04/13/20 8:36:00 EDT, Height Start Date: 08/24/20 Status: Ordered Trulicity Pen 1.5 mg/0.5 mL subcutaneous solution See Instructions, INJECT 1.5 MG SUBCUTANEOUSLY EVERY WEEK, # 2 mL, 5 Refills, Maintenance, 228:34:00 EST, [facility], 175, cm, 04/03/21 16:27:00 EDT, Height Start Date: 09/08/21 Status: Ordered Vitamin D3 2000 intl units oral tablet 1 tablet = 2,000 International_Units, By Mouth, 2 times a day, 0 Refills, Maintenance, 06/10/14 9:29:02 Start Date: 06/10/14 Status: Ordered Wellbutrin XL 150 mg/24 hours oral tablet, extended release 1 tablet = 150 mg, By Mouth, Every 24 hours, 0 Refills, Maintenance, 06/14/15 14:14:56 Start Date: 06/14/15 Status: Ordered Wellbutrin XL 300 mg/24 hours oral tablet, extended release 1 tablet = 300 mg, By Mouth, Every 24 hours, 0 Refills, Maintenance, 06/14/15 14:14:48 Start Date: 06/14/15 Status: Ordered Problem List Condition Confirmation Course Effective Dates Status H ealth Status Informant Diabetes Confirmed Active Morbid obesity with BMI of 50.0-59.9, adult Confirmed Active Oligomenorrhea Confirmed Active Severe obesity Confirmed Active Social History Social History Type Response Smoking Status Never smoker entered on: 06/14/16 Sex Patient Care team information Care Team Personnel Name: Braulio Carbajal MD Position: [facility] Outreach Member Role: PCP Address: Address: [address] [place] [id number]- Name: Facundo Fisher MD Position: [facility] Renal MD Member Role: Lifetime Consulting Physician Address: Address: [address] [place] [address], [address] [place] [address]- Care Team Related Persons Name: MARICHUY EVANS Address: home [address] [place] [id number]
--- OUTSIDE RECORDS SUMMARY | 2024-07-07 08:13 | XMS_ITS | Continuity of Care Document ---
[facility] Address [address], [place] [address]- Care Team Providers Care Gin Inspector Name Role Phone John Campbell MD, Braulio Primary Care Phys ician Encounter [facility] [place] Date(s): 07/10/23 - 07/17/23 [facility] [address] [place], [place] [address] Attending Physician: Shaun Hennessy MD Referring Physician: Hilario Brown Allergies, Adverse Reactions, Alerts Substance Reaction Severity Status penicillins ?reaction Active Medications 14 day marisela reader 14 day marisela reader, See Instructions, # 1 each, Refills 0, Tot. Refills 0, Maintenance, E11.9: Fortesting glucose levels: [facility] [id number], 04/13/20 12:21:00 EDT, Compound, 175, cm, 04/13/20 8:36:00 EDT, Height Start Date: 04/13/20 Status: Ordered 14 day marisela sensor 14 day marisela sensor, See Instructions, # 2 each, Refills 11, Tot. Refills 11, Maintenance, E 11.9: for testing glucose lev els. [facility] [id number], 05/31/21 15:14:00 EDT, Compound, 175, cm, 04/03/21 16:27:00 EDT, Height Start Date: 05/31/21 Status: Ordered Adderall XR By Mouth, Daily in AM, 0 Refills, Maintenance, 07/23/16 9:32:41 Start Date: 07/23/16 Status: Ordered atorvastatin 40 mg oral tablet 1 tablet = 40 mg, By Mouth, Daily, 0 Refills, Maintenance, 09/09/20 8:44:00 EDT Start Date: 04/13/20 Status: Ordered Biotin = 5,000 mcg, By [...] mL, 11 Refills, Maintenance, 04/03/21 16:57:00 EDT, [facility], 175, cm, 04/03/21 16:27:00 [...] Stop, 07/18/16 15:22:09, Please call patient at [phone] to obtain insurance information; Needs device shipped by 07/27/16; Any questions, call office at [phone], opt 1 (attn: Solange) Start Date: 07/18/16 [...] Tablet Start Date: 06/10/14 Status: Ordered Pen [place], 31 G x 8 mm BD Ultra [...] WEEK, # 2 mL, 5 Refills, Maintenance, :34:00 EST, [facility], 175, cm, 04/03/21 16:27:00 [...] Oligomenorrhea Confirmed Active Severe obesity Confirmed Active Vital Signs Most recent to oldest [Reference Range]: 1 Height 175 cm (07/10/23 5:03 PM) Weight 151.81 kg (07/10/23 5:03 PM) Pulse Rate [55-90 bpm] 98 bpm *H* (07/10/23 5:03 PM) Body Mass Index [18.5-24.99 kg/m2] 49.57 kg/m2 *>HHI* (07/10/23 5:03 PM) Blood Pressure [90-138/55-84 mm Hg] 141/ 77mm Hg *H* (07/10/23 5:03 PM) Blood pressure sites Arm, left (07/10/23 5:03 PM) Weight Obtained Via Standing scale (07/10/23 5:03 PM) Social History Social History Type Response Smoking Status Never smoker entered on: 06/14/16 Sex Patient Care team information Care Team Personnel Name: Braulio Carbajal MD Position: [facility] Outreach Member Role: PCP Address: Address: [address] [place] [address]- Name: Facundo Fisher MD Position: [facility] Renal MD Member Role: Lifetime Consulting Physician Address: Address: [address] [place] [address], [address] [place] [address]- Care Team Related Persons Name: MARICHUY EVANS Address: home [address] [place] [id number]
--- OUTSIDE RECORDS SUMMARY | 2024-07-07 08:13 | XMS_ITS | Continuity of Care Document ---
Author Organization [facility] Address [address], [address] [address]- Care Team Providers Care Steel Erector Name Role Phone John Campbell MD, Braulio Primary Care Phys ician Encounter [facility] [place] Date(s): 07/10/23 - 08/09/23 [facility] [address], [address] [place] [address]- Attending Physician: Stephen Moffett Admitting Physician: AdmStephen saucedo Referring Physician: Admtr ArBrayan Allergies, Adverse Reactions, Alerts Substance Reaction Severity Status penicillins ?reaction Active Medications 14 day marisela reader 14 day marisela reader, See Instructions, # 1 each, Refills 0, Tot. Refills 0, Maintenance, E11.9: Fortesting glucose levels: [facility] [id number], 04/13/20 12:21:00 EDT, Compound, 175, cm, 04/13/20 8:36:00 EDT, Height Start Date: 04/13/20 Status: Ordered 14 day marisela sensor 14 day marisela sensor, See Instructions, # 2 each, Refills 11, Tot. Refills 11, Maintenance, E 11.9: for testing glucose lev els. [facility] [id number], 05/31/21 15:14:00 EDT, Compound, 175, cm, 04/03/21 16:27:00 EDT, Height Start Date: 05/31/21 Status: Ordered Adderall XR By Mouth, Daily in AM, 0 Refills, Maintenance, 07/23/16 9:32:41 Start Date: 07/23/16 Status: Ordered atorvastatin 40 mg oral tablet 1 tablet = 40 mg, By Mouth, Daily, 0 Refills, Maintenance, 04/13/20 8:44:00 EDT Start Date: 04/13/20 Status: Ordered [...] mL, 11 Refills, Maintenance, 04/03/21 16:57:00 EDT, [facility], 175, cm, 04/03/21 16:27:00 [...] Stop, 07/18/16 15:22:09, Please call patient at [phone] to obtain insurance information; Needs device shipped by 07/27/16; Any questions, call office at [phone], opt 1 (attn: Solange) Start Date: 07/18/16 [...] Tablet Start Date: 06/10/14 Status: Ordered Pen [place], 31 G x 8 mm BD Ultra [...] 2 mL, 5 Refills, Maintenance, 228:34:00 EST, [facility], 175, cm, 04/03/21 16:27:00 [...] Team Personnel Name: Braulio Carbajal MD Position: [facility] Outreach Member Role: PCP Address: Address: [address] [place] [address]- Name: Facundo Fisher MD Position: [facility] Renal MD Member Role: Lifetime Consulting Physician Address: Address: [address] [place] [address], [address] [place] [address]- Care Team Related Persons Name: MARICHUY EVANS Address: home [address] [place] [id number]
== END 2024-07-07 14:30 | disposition home or self-care (01) ==
LOC: HO.HOP 08:11
PROVIDERS: PCP Internal Medicine; Visit Provider Counselor Mental Health
DX: F90.2 Attention-deficit hyperactivity disorder, combined type (principal); F41.0 Panic disorder [episodic paroxysmal anxiety]; F32.A Depression, unspecified
CPT/HCPCS: 90837

== ENCOUNTER → 2024-07-21 08:16 | Outpatient (AMB) | payer OTHER, SELFPAY ==
--- NOTE | 2024-07-21 08:00 | A.OFFWM_ITS ---
Intake Intake Visit Reasons: VIDEO OP Therapy Allergies Penicillins Allergy (Intermediate, Verified 05/26/24 10:01) Shortness of Breath pt states no food allergies Allergy (Unknown, Uncoded 05/26/24 10:01) Unknown [facility] Medical History Type 2 diabetes mellitus with retinopathy Asthma Insomnia Neuropathy Breast calcification, right Adenocarcinoma determined by biopsy of liver Diabetic retinopathy Anxiety and depression GERD (gastroesophageal reflux disease) SOLE on CPAP ADHD Hyperlipidemia HTN (hypertension) with goal to be determined Diabetes mellitus Morbid obesity Surgical History History of cholecystectomy Family History Mother Diabetes Heart problem Father Hypertension Maternal Grandmother Primary cancer of bone marrow Maternal Grandfather Prostate cancer Social History Are you a primary progressive care nurse to a significant other at home: No Do you presently have visiting nurse or other home services: No Alcohol intake: never Patient Tobacco Use Status: Never used Tobacco Female Reproductive History Menstrual Age of Menarche: 13 Behavioral Health Assessment Weight Management Therapy Therapy Notes Details Subjective: PT reports she continues feeling tired and now more stressed. Mood is better. Feeling guilty as she missed an important work-related commitment yesterday, which is a sign of high stress. Continue dealing with work-related stress also, not feeling heard, valued. On the other hand, she has been connecting more with her spiritual practices as self-care. Objective: PT presents for a follow up counseling visit via Telehealth. . Supportive listening, processed functioning, feelings, Sx and challenges. 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 Used CPT for personal challenges and to use variety of coping skills and spiritual practices for stress-management. Assessment/Response: * Mental status: mild functioning issues due to stress. Alert, oriented X3. Anxiety, low mood. * Risk reported/identified: None. Assessment & Plan Assessment & Plan (1) ADHD: Code(s): F90.9 - Attention-deficit hyperactivity disorder, unspecified type Qualifiers: Attention deficit-hyperactivity disorder type: combined inattentive- hyperactive Qualified Code(s): F90.2 - Attention-deficit hyperactivity disorder, combined type (2) Panic disorder: Code(s): F41.0 - Panic disorder [episodic paroxysmal anxiety] (3) Depression, unspecified: Code(s): F32.A - Depression, unspecified Plan * PT will complete a DAIANA to complete a form for weight management at another facility. * Continue bi-weekly sessions. * Next jase: 08/04/2024 at 8am, Telehealth. Telehealth Telehealth Telehealth Platform: [employer] Location of provider rendering services: other Location of patient: address on file Patient Identification confirmed using: Name, : Yes Telehealth method: video Patient verbally consented to treatment: Yes Patient verbally consented to billing insurance company: Yes Patient informed of any privacy concerns related to visit: Yes Minutes spent on Phone/Video with Pt.: 60 Coding Level of Care Code Established Pt Tele Psytx >53 mins ([id number]) Patient Type Established Diagnoses Attention deficit hyperactivity disorder (ADHD), combined type F90.2 Attention deficit-hyperactivity disorder type: combined inattentive- hyperactive Panic disorder F41.0 Depression, unspecified F32.A Time Spent (min) 60 Comment Start time: 8:00 am - End time: 9:00 am.
== END ==
LOC: HO.HOP 08:16
PROVIDERS: PCP Internal Medicine; Visit Provider Counselor Mental Health
DX: F90.2 Attention-deficit hyperactivity disorder, combined type (principal); F41.0 Panic disorder [episodic paroxysmal anxiety]; F32.A Depression, unspecified
CPT/HCPCS: 90837

== ENCOUNTER 2024-08-04 08:27 | Outpatient (AMB) | payer OTHER, SELFPAY ==
--- NOTE | 2024-08-04 08:00 | A.OFFWM_ITS ---
Intake Intake Visit Reasons: VIDEO OP Therapy Allergies Penicillins Allergy (Intermediate, Verified 05/26/24 10:01) Shortness of Breath pt states no food allergies Allergy (Unknown, Uncoded 05/26/24 10:01) Unknown [facility] Medical History Type 2 diabetes mellitus with retinopathy Asthma Insomnia Neuropathy Breast calcification, right Adenocarcinoma determined by biopsy of liver Diabetic retinopathy Anxiety and depression GERD (gastroesophageal reflux disease) SOLE on CPAP ADHD Hyperlipidemia HTN (hypertension) with goal to be determined Diabetes mellitus Morbid obesity Surgical History History of cholecystectomy Family History Mother Diabetes Heart problem Father Hypertension Maternal Grandmother Primary cancer of bone marrow Maternal Grandfather Prostate cancer Social History Are you a primary special needs caregiver to a significant other at home: No Do you presently have visiting nurse or other home services: No Alcohol intake: never Patient Tobacco Use Status: Never used Tobacco Female Reproductive History Menstrual Age of Menarche: 13 Behavioral Health Assessment Weight Management Therapy Therapy Notes Details Subjective: PT reports she has been very anxious.She has been using Ativan couple times in the last 3 weeks. Feeling triggered by finances and upcoming changes in the work-place. Objective: PT presents for a telehealth F/up counseling visit. . Discussed overall functioning and processed triggers. Explored and identified the patient's negative thought patterns related to finances and workplace changes. We worked on challenging automatic thoughts of catastrophizing and [id number] thinking by reframing them into more balanced, realistic perspectives. Focused on developing healthy coping mechanisms to manage anxiety, such as limiting reliance on Ativan and using alternative strategies like journaling, physical exercise, and reaching out for support when feeling overwhelmed. Discussed strategies for managing stress related to financial concerns and upcoming workplace changes, including setting small, manageable goals and utilizing problem-solving techniques to address these stressors in a productive way. Assessment/Response: * Mental status: Anxious and stressed. Alert, oriented X3. Moderate functioning issues due to stress and attenbtion issues affecting personal life and work performance. * Risk reported/identified: None PT was open and active in session and responded well to modalities used. Assessment & Plan Assessment & Plan (1) ADHD: Code(s): F90.9 - Attention-deficit hyperactivity disorder, unspecified type Qualifiers: Attention deficit-hyperactivity disorder type: combined inattentive- hyperactive Qualified Code(s): F90.2 - Attention-deficit hyperactivity disorder, combined type (2) Panic disorder: Code(s): F41.0 - Panic disorder [episodic paroxysmal anxiety] (3) Depression, unspecified: Code(s): F32.A - Depression, unspecified Plan * Continue bi-weekly sessions. * PT agreed to utilize suggested techniques. * Next jase: 08/18/2024 at 8am, Telehealth. Telehealth Telehealth Telehealth Platform: [employer] Location of provider rendering services: other Location of patient: address on file Patient Identification confirmed using: Name, : Yes Telehealth method: video Patient verbally consented to treatment: Yes Patient verbally consented to billing insurance company: Yes Patient informed of any privacy concerns related to visit: Yes Minutes spent on Phone/Video with Pt.: 70 Coding Level of Care Code Established Pt Tele Psytx >53 mins ([id number]) Patient Type Established Diagnoses Attention deficit hyperactivity disorder (ADHD), combined type F90.2 Attention deficit-hyperactivity disorder type: combined inattentive- hyperactive Panic disorder F41.0 Depression, unspecified F32.A Time Spent (min) 70
--- OUTSIDE RECORDS SUMMARY | 2024-08-04 08:31 | XMS_ITS | Continuity of Care Document ---
Author Organization [facility] Address [address] [place] [address] Phone [phone] Social History Type Date Description Comments Sex Unknown Medical Devices Description No Information Available Encounters Description No Information Available Assessments Description No Information Available Plan of Treatment No Information Available Functional Status Description No Information Available Mental Status Description No Information Available Referrals Description No Information Available
--- OUTSIDE RECORDS SUMMARY | 2024-08-04 08:31 | XMS_ITS ---
Author Name [facility] Organization Unknown History of Medication Use Medication Directions Dispensed Refills Start Date End Date Stat Jardiance 10 mg tablet 07/09/2024 08/04/9999 active Trulicity 4.5 mg/0.5 mL subcutaneous pen injector 07/09/2024 08/04/9999 active fluoxetine 20 mg capsule 07/09/2024 08/04/9999 active bupropion HCl XL 300 mg 24 hr tablet, extended release 07/09/2024 08/04/9999 active lisinopril 10 mg tablet 07/09/2024 08/04/9999 active Mounjaro 5 mg/0.5 mL subcutaneous pen injector 07/09/2024 08/04/9999 active vitamin d3 125 mcg (5000 ut) caps 07/09/2024 08/04/9999 active Mounjaro 7.5 mg/0.5 mL subcutaneous pen injector 07/09/2024 08/04/9999 active Humulin R U-500 (Conc) Insulin Kwikpen 500 unit/mL (3 mL) subcutaneous 07/09/2024 08/04/9999 activ e vitamin A 3,000 mcg (10,000 unit) capsule 07/09/2024 08/04/9999 active minoxidil 2.5 mg tablet 07/09/2024 08/04/9999 active Tresiba FlexTouch U-200 insulin 200 unit/mL (3 mL) subcutaneous pen 07/09/2024 08/04/9999 active ibuprofen 800 mg tablet TAKE 1 TABLET BY MOUTH EVERY 6 HOURS FOR PAIN 07/09/2024 08/04/9999 active gabapentin 300 mg capsule 07/09/2024 08/04/9999 active atorvastatin 40 mg tablet 07/09/2024 08/04/9999 active Vyvanse 70 mg capsule 07/09/2024 08/04/9999 active clindamycin HCl 300 mg capsule TAKE 1 CAPSULE BY MOUTH EVERY 6 HOURS UNTIL GONE 07/09/2024 08/04/9999 active dextroamphetamine-am phetamine ER 25 mg 24hr capsule,extend release 07/09/2024 08/04/9999 active meloxicam 15 mg tablet 06/21/2024 08/04/9999 active meloxicam 15 mg tablet Take 1 tablet every day by oral route. 06/21/2024 08/04/9999 active Problems Problem Status Onset Date Problem Type Date of Resoluti on Source Osteoarthritis of left hip joint active 2024-07-07 ProblemAct [facility] Lateral epicondylitis active 2024-06-18 ProblemAct [facility]
== END 2024-08-04 09:00 | disposition home or self-care (01) ==
LOC: HO.HOP 08:27
PROVIDERS: PCP Internal Medicine; Visit Provider Counselor Mental Health
DX: F90.2 Attention-deficit hyperactivity disorder, combined type (principal); F41.0 Panic disorder [episodic paroxysmal anxiety]; F32.A Depression, unspecified
CPT/HCPCS: 90837

== ENCOUNTER 2024-08-18 08:13 | Outpatient (AMB) | payer OTHER, SELFPAY ==
--- NOTE | 2024-08-18 08:00 | MHC.WMTHER ---
Intake Intake Visit Reasons: VIDEO OP Therapy Allergies Penicillins Allergy (Intermediate, Verified 05/26/24 10:01) Shortness of Breath pt states no food allergies Allergy (Unknown, Uncoded 05/26/24 10:01) Unknown [facility] Medical History Type 2 diabetes mellitus with retinopathy Asthma Insomnia Neuropathy Breast calcification, right Adenocarcinoma determined by biopsy of liver Diabetic retinopathy Anxiety and depression GERD (gastroesophageal reflux disease) SOLE on CPAP ADHD Hyperlipidemia HTN (hypertension) with goal to be determined Diabetes mellitus Morbid obesity Surgical History History of cholecystectomy Family History Mother Diabetes Heart problem Father Hypertension Maternal Grandmother Primary cancer of bone marrow Maternal Grandfather Prostate cancer Social History Are you a primary child care centre director to a significant other at home: No Do you presently have visiting nurse or other home services: No Alcohol intake: never Patient Tobacco Use Status: Never used Tobacco Female Reproductive History Menstrual Age of Menarche: 13 Behavioral Health Assessment Weight Management Therapy Therapy Notes Details Subjective: PT presents feeling better in general. She continues moving forward with her weight-loss goals. PT today disclosed trauma-related events in childhood and Sx related as an adult. Objective: PT presents for a f/up visit via Telehealth. . Discussed functioning, routine and challenges. Used CPT tecniques to process trauma and responses. Also reflected on behavioral patterns around eating and influence in unhealthy eating choices. Behav. modification tecniques used for eating behavior and decision making. Reviewed coping skills to implement in discussed situations. Assessment/Response: Mental status: WNL Risk reported/identified: None Pt open, active and engaged. PT responded well to interventions. Assessment & Plan Assessment & Plan (1) ADHD: Code(s): F90.9 - Attention-deficit hyperactivity disorder, unspecified type Qualifiers: Attention deficit-hyperactivity disorder type: combined inattentive-hyperactive Qualified Code(s): F90.2 - Attention-deficit hyperactivity disorder, combined type (2) Panic disorder: Code(s): F41.0 - Panic disorder [episodic paroxysmal anxiety] (3) Depression, unspecified: Code(s): F32.A - Depression, unspecified Plan Continue bi-weekly sessions. Next jase: 09/01/2024 at 8am, Telehealth. Telehealth Telehealth Telehealth Platform: [employer] Location of provider rendering services: other Location of patient: address on file Patient Identification confirmed using: Name, : Yes Telehealth method: video Patient verbally consented to treatment: Yes Patient verbally consented to billing insurance company: Yes Patient informed of any privacy concerns related to visit: Yes Minutes spent on Phone/Video with Pt.: 60 Coding Level of Care Code Established Pt Tele Psytx >53 mins (93025) Patient Type Established Diagnoses Attention deficit hyperactivity disorder (ADHD), combined type F90.2 Attention deficit-hyperactivity disorder type: combined inattentive-hyperactive Panic disorder F41.0 Depression, unspecified F32.A
--- OUTSIDE RECORDS SUMMARY | 2024-08-18 08:22 | XMS_ITS | Continuity of Care Document ---
Author Organization [facility] Address [address] [place] [address] Phone [phone] Social History Type Date Description Comments Sex Unknown Medical Devices Description No Information Available Encounters Description No Information Available Assessments Description No Information Available Plan of Treatment No Information Available Functional Status Description No Information Available Mental Status Description No Information Available Referrals Description No Information Available
== END 2024-08-18 11:05 | disposition home or self-care (01) ==
LOC: HO.HOP 08:13
PROVIDERS: PCP Internal Medicine; Visit Provider Counselor Mental Health
DX: F90.2 Attention-deficit hyperactivity disorder, combined type (principal); F41.0 Panic disorder [episodic paroxysmal anxiety]; F32.A Depression, unspecified
CPT/HCPCS: 90837

== ENCOUNTER 2024-09-01 08:13 | Outpatient (AMB) | payer OTHER, SELFPAY ==
--- NOTE | 2024-09-01 08:00 | A.OFFWM_ITS ---
Intake Intake Visit Reasons: VIDEO OP Therapy Allergies Penicillins Allergy (Intermediate, Verified 05/26/24 10:01) Shortness of Breath pt states no food allergies Allergy (Unknown, Uncoded 05/26/24 10:01) Unknown [facility] Medical History Type 2 diabetes mellitus with retinopathy Asthma Insomnia Neuropathy Breast calcification, right Adenocarcinoma determined by biopsy of liver Diabetic retinopathy Anxiety and depression GERD (gastroesophageal reflux disease) SOLE on CPAP ADHD Hyperlipidemia HTN (hypertension) with goal to be determined Diabetes mellitus Morbid obesity Surgical History History of cholecystectomy Family History Mother Diabetes Heart problem Father Hypertension Maternal Grandmother Primary cancer of bone marrow Maternal Grandfather Prostate cancer Social History Are you a primary physician assistant primary care to a significant other at home: No Do you presently have visiting nurse or other home services: No Alcohol intake: never Patient Tobacco Use Status: Never used Tobacco Female Reproductive History Menstrual Age of Menarche: 13 Behavioral Health Assessment Weight Management Therapy Therapy Notes Details Subjective: The patient reports being unwell, initially starting with bronchitis and now developing pneumonia. She is also assisting her sister with medical concerns. Additionally, the patient expresses feeling conflicted due to ongoing communication issues with her family and patterns she does not resonate with. Objective: The patient presents for a follow-up visit via Telehealth. * Reflective listening was used to explore stressors and internal conflict. * We focused on family dynamics, reviewed generational and systemic patterns, and reflected on her responses, including identifying factors within and outside of her control. * [place] setting and clear, direct communication were reinforced as the patient has been actively attempting these strategies. * Cognitive Behavioral Therapy (CBT) was utilized for symptom management. Assessment/Response: * Mental status: The patient appears stressed and unwell but is functioning well. * Risk reported/identified: none The patient was active, engaged, and responded positively to the interventions provided. Assessment & Plan Assessment & Plan (1) ADHD: Code(s): F90.9 - Attention-deficit hyperactivity disorder, unspecified type Qualifiers: Attention deficit-hyperactivity disorder type: combined inattentive- hyperactive Qualified Code(s): F90.2 - Attention-deficit hyperactivity disorder, combined type (2) Panic disorder: Code(s): F41.0 - Panic disorder [episodic paroxysmal anxiety] (3) Depression, unspecified: Code(s): F32.A - Depression, unspecified Plan * Continue bi-weekly sessions. * Next jase: 09/15/2024 at 8am, Telehealth. Telehealth Telehealth Telehealth Platform: [employer] Location of provider rendering services: other Location of patient: address on file Patient Identification confirmed using: Name, : Yes Telehealth method: video Patient verbally consented to treatment: Yes Patient verbally consented to billing insurance company: Yes Patient informed of any privacy concerns related to visit: Yes Minutes spent on Phone/Video with Pt.: 60 Coding Level of Care Code Established Pt Tele Psytx >53 mins (28166) Patient Type Established Diagnoses Attention deficit hyperactivity disorder (ADHD), combined type F90.2 Attention deficit-hyperactivity disorder type: combined inattentive- hyperactive Panic disorder F41.0 Depression, unspecified F32.A Time Spent (min) 60
--- OUTSIDE RECORDS SUMMARY | 2024-09-01 08:27 | XMS_ITS | Clinical Summary ---
Author Organization [facility] Address [address] [place] [address] Phone Care Team Providers Care Baseball Glove Shaper Name Role Phone Braulio Carbajal Primary Care Provide r Allergies Active Allergy Reactions Criticality Noted Date Comments Penicillins 11/11/2012 Medications Medication Sig Dispensed Refills Start Date End Date Status FREESTYLE LANCETS MISC Use to test blood sugar 4 times a day.DX-250.00 12/30/2013 Active blood sugar diagnostic (FreeStyle Lite Strips) test strip Use to test blood sugar 4 times a day.DX-250.00 12/30/2013 Active blood-glucose meter kit Use to check blood sugar 4 times a day.DX-250.00 02/15/2014 Active NON FORMULARY Take 1 capsule by mouth 1 (one) time each day if needed (stomach cramps). 03/03/2014 Active atorvastatin (LIPITOR) 20 mg tablet Take 1 tablet (20 mg total) by mouth at bedtime. 03/03/2014 Active biotin 1 mg tablet Take by mouth. Ac tive cholecalciferol, vitamin D3, 75 mcg (3,000 unit) tablet Take by mouth. A ctive amphetamine-dextroa mphetamine (ADDERALL) 20 mg tablet Take 2 tablets (40 mg total) by mouth 1 (one) time each day. In afternoon in addition to 20mg xr In am Max Daily Amount: 40 mg Active diphenoxylate-atrop ine (LOMOTIL) 2.5-0.025 mg per tablet Take 1 tablet by mouth if needed for diarrhea. 02/15/2014 Active fluticasone propionate (FLONASE) 50 mcg/actuation nasal spray Administer 1 spray into affected nostril(s) 1 (one) time each day. 12/11/2012 Active insulin glargine (LANTUS) 100 unit/mL injection Inject 40 Units under the skin at bedtime. Active insulin lispro (HumaLOG U-100 Insulin) 100 unit/mL injection Inject 20 Units under the skin 3 (three) times a day before meals. 10/23/2014 Active LORazepam (ATIVAN) 1 mg tablet Take 1 tablet (1 mg total) by mouth every 6 (six) hours if needed. Max Daily Amount: 4 mg Active metFORMIN XR (GLUCOPHAGE-XR) 500 mg 24 hr tablet Take 1 tablet (500 mg total) by mouth 2 (two) times a day. 07/06/2014 Active omeprazole (PriLOSEC) [address] capsule Take 1 capsule (20 mg total) by mouth 1 (one) time each day. 11/11/2012 Active ondansetron (ZOFRAN) 4 mg tablet Take 1 tablet (4 mg total) by mouth every 6 (six) hours if needed for nausea. 02/15/2014 Active sertraline (ZOLOFT) 100 mg tablet Take 1 tablet (100 mg total) by mouth 2 (two) times a day. 06/28/2014 Active ergocalciferol (VITAMIN D-2) 1,250 mcg (50,000 unit) capsule Take 1 capsule (50,000 Units total) by mouth 1 (one) time per week. 12 each 07/24/2024 07/24/2025 Active Active Problems Problem Noted Date Diagnosed Date Class 3 severe obesity with serious comorbidity and body mass index (BMI) of 50.0 to 59.9 in adult 07/20/2024 HTN (hypertension) 05/22/2024 IBS (irritable bowel syndrome) 05/22/2024 ADHD (attention deficit hype ractivity disorder), combined type 08/16/2014 Sleep apnea 06/28/2014 Morbid obesity 08/11/2013 Overview (05/22/2024): BMI 52.25 on 06/05/13. Condition not found 06/05/2013 Overview (05/22/2024): Diabetes mellitus type II, uncontrolled Depression 04/05/2012 Encounters Date Type Department Care Team Description 07/20/2024 9:00 AM EST Consult Bariatric Surgery - [address] [place] [phone] Class 3 severe obesity with serious comorbidity and body mass index (BMI) of 50.0 to 59.9 in adult, unspecified obesity type ([facility]) (Primary Dx) 07/20/2024 8:35 AM EST Lab Draw Station - 175 [facility] [address] [place] [phone] Morbid obesity ([facility]) 07/08/2024 1:00 PM EST Office Visit Bariatric Surgery - [address] [place] [phone] Gosia Stoner MD Morbid obesity ([facility]) (Primary Dx); Sleep apnea, unspecified type from Last 3 Months Immunizations Name Administration Dates Next Due Tdap Tetanus diptheria acell ular pertussis (Boostrix; Adacel) 7yo and older 12/11/2012 Surgical History Surgery Date Site/Laterality Comments CHOLECYSTECTOMY 1999 PROCEDURE: HISTORICAL CHOLECYSTECTOMY Medical History Medical History Date Comments HTN (hypertension) 2011 DX:HTN (hyper tension) DM (diabetes mellitus) ([facility]) 2006 DX:DM (diabetes mellitus) ([facility]) IBS (irritable bowel syndrome) 1994 D X:IBS (irritable bowel syndrome) Depression 04/2012 DX:Depression Esophageal reflux DX:Esophageal reflux ADHD (attention deficit hype ractivity disorder), combined type 08/16/2014 DX:ADHD (attention deficit hyperactivity disorder), combined type Family History Medical History Relation Name Comments Asthma Father smoker Hypertension Father Colon cancer Maternal Grandfather Other cancer Maternal Grandmother bone Diabetes Mother Heart attack Paternal Grandfather Heart failure Paternal Grandfather Hypertension Paternal Grandfather Cataracts Paternal Grandmother Blindness Neg Hx Glaucoma Neg Hx Macular degeneration Neg Hx Strabismus Neg Hx Relation Name Status Comments Father Alive HTN Maternal Grandfather Maternal Grandmother Mother Alive Diabetes Paternal Grandfather Paternal Grandmother Alive Social History Tobacco Use Types Packs/Day Years Used Date Smoking Tobacco: Never Smokeless Tobacco: Never Alcohol Use Standard Drinks/Week Comments No 0 (1 standard drink = 0.6 oz pur e alcohol) Sex and Gender Information Value Date Recorded Sex Assigned at Female 07/01/2024 1:41 PM EST Gender Identity Female 07/01/2024 1:41 PM EST Sexual Orientation Not on file Job Start Date Occupation Industry Not on file Not on file Not on file Obstetrics History Last Filed Vital Signs Vital Sign Reading Time Taken Comments Blood Pressure 148/83 07/08/2024 1:01 PM EST Pulse 101 07/08/2024 1:01 PM EST Temperature 36.7 ??C (98.1 ??F) 07/08/2024 1:01 PM ES T Respiratory Rate - - Oxygen Saturation - - Inhaled Oxygen Concentration - - Weight 156 kg (345 lb) 07/20/2024 9:38 AM EST Height 175.3 cm (5' 9 ) 07/08/2024 1:01 PM EST Body Mass Index 50.95 07/08/2024 1:01 PM EST Plan of Treatment Health Maintenance Due Date Last Done Comments Breast Cancer Screening 1976 Diabetes: Annual Foot Exam 1986 Diabetes: Annual Retina Eye Exam 1986 Hepatitis B Vaccines (1 of 3 - 19+ 3-dose series) 1995 Cervical Cancer Screening: Pap Smear 1997 Colorectal Cancer Screening: Colonoscopy 07/03/2022 Depression Screening 07/03/2022 Hepatitis C Screening 07/03/2022 Social Influencers of Health Screening 07/03/2022 COVID-19 Vaccine ( season) 2024 07/13/2021, 09/22/2020, 09/06/2020, Additional history exists Diabetes: Annual Urine Albumin-Creatinine Ratio (uACR) 07/08/2024 02/26/2014 Diabetes: Blood Sugar Control Test (HGBA1C) 01/18/2025 07/20/2024, 02/26/2014 Diabetes: Annual GFR (Glomerular Filtration Rate) 07/20/2025 07/20/2024, 02/26/2014 Hypertension/CHF/CAD Annual BMP Blood Test 07/20/2025 07/20/2024, 02/26/2014 Cholesterol Screening (Lipid Panel) 07/20/2029 07/20/2024, 01/01/2023, 02/26/2014 DTaP,Tdap,and Td Vaccines (3 - Td or Tdap) 03/15/2032 03/15/2022, 12/11/2012 HIV Screening Completed 01/24/2022 Influenza Vaccine Completed 05/31/2024, , 07/14/2022, Additional history exists HIB Vaccines Aged Out No longer eligi ble based on patient's age to complete this topic HPV Vaccines Aged Out No longer eligi ble based on patient's age to complete this topic Hepatitis A Vaccines Aged Out No long er eligible based on patient's age to complete this topic IPV Vaccines Aged Out No longer eligi ble based on patient's age to complete this topic MMR Vaccines Aged Out No longer eligi ble based on patient's age to complete this topic Meningococcal ACWY Vaccine Aged Out N o longer eligible based on patient's age to complete this topic Pneumococcal Vaccine: Pediatrics (0 to 5 Years) and At-Risk Patients (6 to 64 Years) Aged Out No longer eligible based on patient's age to complete this topic RSV Immunization Patients Under 20 months Aged Out No longer eligible based on patient's age to complete this topic Varicella Vaccines Aged Out No longer eligible based on patient's age to complete this topic Procedures Procedure Name Priority Date/Time Associated Diagnosis Comments CBC WITH AUTO DIFFERENTIAL Routine 07/20/2024 8:33 AM EST Morbid obesity (CMS/HCC) VITAMIN D 25 HYDROXY Routine 07/20/2024 8:33 AM EST Morbid obesity (CMS/HCC) VITAMIN B12 Routine 07/20/2024 8:33 AM EST Morbid obesity (CMS/HCC) VITAMIN B1 Routine 07/20/2024 8:33 AM EST Morbid obesity (CMS/HCC) URIC ACID Routine 07/20/2024 8:33 AM EST Morbid obesity (CMS/HCC) THYROID STIMULATING HORMONE Routine 07/20/2024 8:33 AM EST Morbid obesity (CMS/HCC) MAGNESIUM Routine 07/20/2024 8:33 AM EST Morbid obesity (CMS/HCC) LIPID PANEL WITH REFLEX TO DIRECT LDL Routine 07/20/2024 8:33 AM EST Morbid obesity (CMS/HCC) IRON AND TIBC Routine 07/20/2024 8:33 AM EST Morbid obesity (CMS/HCC) INSULIN, FASTING Routine 07/20/2024 8:33 AM EST Morbid obesity (CMS/HCC) HEMOGLOBIN A1C Routine 07/20/2024 8:33 AM EST Morbid obesity (CMS/HCC) HELICOBACTER PYLORI BREATH TEST Routine 07/20/2024 8:33 AM EST Morbid obesity (CMS/HCC) FOLATE Routine 07/20/2024 8:33 AM EST Morbid obesity (CMS/HCC) FERRITIN Routine 07/20/2024 8:33 AM EST Morbid obesity (CMS/HCC) CORTISOL Routine 07/20/2024 8:33 AM EST Morbid obesity (CMS/HCC) COMPREHENSIVE METABOLIC PANEL Routine 07/20/2024 8:33 AM EST Morbid obesity (CMS/HCC) CBC AND DIFFERENTIAL Routine 07/20/2024 8:33 AM EST Morbid obesity (CMS/HCC) NICOTINE AND COTININE Routine 07/20/2024 8:33 AM EST Morbid obesity (CMS/HCC) HM URINE ALBUMIN CREATININE RATIO Routine 02/26/2014 from Last 3 Months or Most Recently Relevant to Health Maintenance Results * (ABNORMAL) Lipid panel with reflex to direct LDL (07/20/2024 8:33 AM EST) Cholesterol 179 0 - 200 mg/dL LAB CHEMISTRY METHOD 07/20/2024 11:[address] [facility] Triglycerides 89 0 - 150 mg/dL LAB CHEMISTRY METHOD 07/20/2024 11:[address] [facility] HDL 53 >=40 mg/dL LAB CHEMISTRY METHOD 07/20/2024 11:[address] [facility] LDL Calculated 108(H) 0 - 100 mg/dL LAB CHEMISTRY METHOD 07/20/2024 11:24 AM [facility] VLDL Cholesterol Francisco J 17.8 mg/dL LAB CHEMISTRY METHOD 07/20/2024 11:[address] [facility] Non HDL Chol. (LDL+VLDL) 126 <145 mg/dL LAB CHEMISTRY METHOD 07/20/2024 11:24 AM [facility] Chol/HDL Ratio 3.4 0.0 - 4.4 LAB CHEMISTRY METHOD 07/20/2024 11:24 AM [facility] Blood Venous blood specimen / Unknown Venipuncture / Unknown 07/20/2024 8:33 AM EST 07/20/2024 8:33 AM EST Gosia Stoner MD LAB BLOOD ORDER JIMENA [facility] [address] [place] [address], * Nicotine and cotinine (07/20/2024 8:33 AM EST) Nicotine <2.0 <2.0 ng/mL 07/23/2024 6:05 AM EST [facility] Cotinine <2.0 <2.0 ng/mL 07/23/2024 6:05 AM EST [facility] Comment: ?Additional Reference Ranges: ? Active Tobacco ? Passive ? Abstinence ?User ?Exposure ?? 2 Weeks and more ? Nicotine ?30 - 50 ??ng/mL ?<2 ng/mL ?<2 ng/mL Cotinine ?? 200 - 800 ng/mL ?<8 ng/mL ?<2 ng/mL Reference Ranges from: ??Clin. Chem.; ??[id number] (2002) Direct any interpretive questions to the toxicology laboratory. This is for medical use only, it is not intended for forensic use. If applicable, any drug confirmation testing reported here was developed and the performance characteristics determined by [facility]. This confirmation testing has not been cleared or approved by the FDA. The laboratory is regulated under CLIA as qualified to perform high-complexity testing. This test is used for patient testing purposes. It should not be regarded as investigational or for research. Test performed at [facility], [address] [place], [place] ??[address] ? [phone] Vida Aguilar MD, PhD - Commercial Title Examiner Blood Venous blood specimen / Unknown Venipuncture / Unknown 07/20/2024 8:33 AM EST 07/20/2024 8:33 AM EST Gosia Stoner MD LAB BLOOD ORDER JIMENA [facility] [address] [place] [address] * (ABNORMAL) CBC auto differential (07/20/2024 8:33 AM EST) [facility] Signature WBC 9.5 4.8 - 10.8 K/[facility] LAB HEMETOLOGY METHOD 07/20/2024 10:07 AM EST [facility] RBC 4.80 3.80 - 4.80 /[facility] LAB HEMETOLOGY METHOD 07/20/2024 10:07 AM [facility] Hemoglobin 13.5 11.5 - 16.0 g/dL LAB HEMETOLOGY METHOD 07/20/2024 10:07 AM [facility] Hematocrit 43.1 35.0 - 47.0 % LAB HEMETOLOGY METHOD 07/20/2024 10:07 AM [facility] MCV 89.2 79.0 - 98.0 FL LAB HEMETOLOGY METHOD 07/20/2024 10:07 AM [facility] MCH 28.0 27.0 - 32.0 pcg LAB HEMETOLOGY METHOD 07/20/2024 10:07 AM [facility] MCHC 31.3(L) 32.0 - 37.0 g/dL LAB HEMETOLOGY METHOD 07/20/2024 10:07 AM [facility] RDW 14.3 11.0 - 15.0 % LAB HEMETOLOGY METHOD 07/20/2024 10:07 AM [facility] Platelets 370 130 - 400 K/[facility] LAB HEMETOLOGY METHOD 07/20/2024 10:07 AM [facility] MPV 9.2 7.0 - 11.0 FL LAB HEMETOLOGY METHOD 07/20/2024 10:07 AM [facility] NRBC 0.0 <1.0 % LAB HEMETOLOGY METHOD 07/20/2024 10:07 AM [facility] NRBC Absolute 0.00 <0.10 K/[facility] LAB HEMETOLOGY METHOD 07/20/2024 10:07 AM [facility] Neutrophils Relative 55.9 % LAB HEMETOLOGY METHOD 07/20/2024 10:07 AM [facility] Lymphocytes Relative 32.1 % LAB HEMETOLOGY METHOD 07/20/2024 10:07 AM [facility] Monocytes Relative 6.9 % LAB HEMETOLOGY METHOD 07/20/2024 10:[address] [facility] Eosinophils Relative 2.8 % LAB HEMETOLOGY METHOD 07/20/2024 10:07 AM [facility] Basophils Relative 0.7 % LAB HEMETOLOGY METHOD 07/20/2024 10:07 AM [facility] Immature Granulocytes Relative 1.6 % LAB HEMETOLOGY METHOD 07/20/2024 10:[address] [facility] Neutrophils Absolute 5.31 1.50 - 7.00 K/mcL LAB HEMETOLOGY METHOD 07/20/2024 10:07 AM [facility] Lymphocytes Absolute 3.06 1.00 - 5.00 K/mcL LAB HEMETOLOGY METHOD 07/20/2024 10:07 AM [facility] Monocytes Absolute 0.66 0.20 - 1.00 K/mcL LAB HEMETOLOGY METHOD 07/20/2024 10:[address] [facility] Eosinophils Absolute 0.27 0.00 - 0.50 K/mcL LAB HEMETOLOGY METHOD 07/20/2024 10:07 AM [facility] Basophils Absolute 0.07 0.00 - 0.20 K/mcL LAB HEMETOLOGY METHOD 07/20/2024 10:07 AM [facility] Immature Granulocytes Absolute 0.15(H) 0.00 - 0.03 K/mcL LAB HEMETOLOGY METHOD 07/20/2024 10:07 AM [facility] Blood Venous blood specimen / Unknown Venipuncture / Unknown 07/20/2024 8:33 AM EST 07/20/2024 8:33 AM EST Gosia Stoner MD LAB BLOOD ORDER JIMENA [facility]) [facility] [address] [place] [address], [place] [phone] * (ABNORMAL) Iron and TIBC (07/20/2024 8:33 AM EST) Iron 52 40 - 150 mcg/dL LAB CHEMISTRY METHOD 07/20/2024 11:[address] [facility] TIBC 244(L) 250 - 450 mcg/dL LAB CHEMISTRY METHOD 07/20/2024 11:[address] [facility] Iron Saturation 21 15 - 50 % LAB CHEMISTRY METHOD 07/20/2024 11:[address] [facility] Blood Venous blood specimen / Unknown Venipuncture / Unknown 07/20/2024 8:33 AM EST 07/20/2024 8:33 AM EST Gosia Stoner MD LAB BLOOD ORDER JIMENA Performing Organization Address City/[facility]/ZIP Co de Phone Number [facility] [address] [place] [address], [place] [phone] * (ABNORMAL) Insulin, fasting (07/20/2024 8:33 AM EST) Pathologist [facility] Insulin 33.8(H) 3.0 - 25.0 mcIU/mL LAB CHEMISTRY METHOD 07/20/2024 10:[address] [facility] Blood Venous blood specimen / Unknown Venipuncture / Unknown 07/20/2024 8:33 AM EST 07/20/2024 8:[address] [facility] - 07/20/2024 10:40 AM EST Insulin reference range based on fasting status. ??Insulin values vary in non- fasting individuals. Gosia Stoner MD LAB BLOOD ORDER JIMENA [facility] [address] [place] [address], [place] [phone] * Helicobacter pylori breath test (07/20/2024 8:33 AM EST) Pathologist [facility] H Pylori Breath Test Negative Negative LAB CHEMISTRY METHOD 07/20/2024 2:[address] [facility] Breath Oral cavity structure / Unknown Non-blood Collection / Unknown 07/20/2024 8:33 AM EST 07/20/2024 8:33 AM EST Gosia Stoner MD LAB BODY FLUIDS AND STOOLS ORDERABLES Performing Organization Address City/[facility]/ZIP Co de Phone Number [facility] [address] [place] [address], [place] [phone] * (ABNORMAL) Vitamin D 25 hydroxy (07/20/2024 8:33 AM EST) [facility] Vit D, 25-Hydroxy 14.2(L) 30.0 - 80.0 ng/mL LAB CHEMISTRY METHOD 07/20/2024 10:[address] [facility] Blood Venous blood specimen / Unknown Venipuncture / Unknown 07/20/2024 8:33 AM EST 07/20/2024 8:33 AM EST Gosia Stoner MD LAB BLOOD ORDER JIMENA Performing Organization Address City/[facility]/[place]UST Co de Phone Number [facility] [address] [place] [address], [place] [phone] * (ABNORMAL) Uric acid (07/20/2024 8:33 AM EST) [facility] Uric Acid 2.2(L) 3.1 - 7.8 mg/dL LAB CHEMISTRY METHOD 07/20/2024 11:[address] [facility] Blood Venous blood specimen / Unknown Venipuncture / Unknown 07/20/2024 8:33 AM EST 07/20/2024 8:33 AM EST Gosia Stoner MD LAB BLOOD ORDER JIMENA [facility] [address] [place] [address], * Thyroid stimulating hormone (07/20/2024 8:33 AM EST) [facility] TSH 1.99 0.40 - 4.00 mcIU/mL LAB CHEMISTRY METHOD 07/20/2024 10:[address] [facility] Blood Venous blood specimen / Unknown Venipuncture / Unknown 07/20/2024 8:33 AM EST 07/20/2024 8:33 AM EST Gosia Stoner MD LAB BLOOD ORDER JIMENA Performing Organization Address [facility]/[place]UST Co de Phone Number [facility] [address] [place] [address], * Vitamin B1 (07/20/2024 8:33 AM EST) [facility] Vitamin B1 Whole Blood 57 38 - 122 ug/L 07/23/2024 8:04 AM EST [facility] Comment: This test was developed and the performance characteristics determined by [facility]. It has not been cleared or approved by the FDA. The laboratory is regulated under CLIA as qualified to perform high-complexity testing. This test is used for patient testing purposes. It should not be regarded as investigational or for research. Test performed at [facility], [address] , [place], [place] ??[address] ? [phone] Vida Aguilar MD, PhD - Commercial Title Examiner Blood Venous blood specimen / Unknown Venipuncture / Unknown 07/20/2024 8:33 AM EST 07/20/2024 8:33 AM EST Gosia Stoner MD LAB BLOOD ORDER JIMENA Performing Organization Address City/[facility]/ZIP Co de Phone Number [facility] [address] [place] [address] * Magnesium (07/20/2024 8:33 AM EST) Magnesium 2.2 1.9 - 2.6 mg/dL LAB CHEMISTRY METHOD 07/20/2024 10:[address] [facility] Blood Venous blood specimen / Unknown Venipuncture / Unknown 07/20/2024 8:33 AM EST 07/20/2024 8:33 AM EST Gosia Stoner MD LAB BLOOD ORDER JIMENA [facility] [address] [place] [address], [place] [phone] * (ABNORMAL) Hemoglobin A1c (07/20/2024 8:33 AM EST) [facility] Hemoglobin A1C 7.9(H) <6.5 % LAB CHEMISTRY METHOD 07/20/2024 2:[address] [facility] Mean Bld Glu Estim. 180 mg/dL LAB CHEMISTRY METHOD 07/20/2024 2:[address] [facility] Blood Venous blood specimen / Unknown Venipuncture / Unknown 07/20/2024 8:33 AM EST 07/20/2024 8:33 AM EST Gosia Stoner MD LAB BLOOD ORDER JIMENA [facility] [address] [place] [address], [place] [phone] * Folate (07/20/2024 8:33 AM EST) Pathologist [facility] Folate 8.2 2.8 - 17.0 ng/ml LAB CHEMISTRY METHOD 07/20/2024 11:[address] [facility] Blood Venous blood specimen / Unknown Venipuncture / Unknown 07/20/2024 8:33 AM EST 07/20/2024 8:33 AM EST Gosia Stoner MD LAB BLOOD ORDER JIMENA Performing Organization Address City/[facility]/ZIP Co de Phone Number [facility] [address] [place] [address], [place] [phone] * Ferritin (07/20/2024 8:33 AM EST) Ferritin 113 8 - 252 ng/mL LAB CHEMISTRY METHOD 07/20/2024 11:[address] [facility] Blood Venous blood specimen / Unknown Venipuncture / Unknown 07/20/2024 8:33 AM EST 07/20/2024 8:33 AM EST Gosia Stoner MD LAB BLOOD ORDER JIMENA Performing Organization Address City/[facility]/[place] Co de Phone Number [facility] [address] [place] [address], * Vitamin B12 (07/20/2024 8:33 AM EST) [facility] Vitamin B-12 391 250 - 900 pcg/mL LAB CHEMISTRY METHOD 07/20/2024 11:[address] [facility] Blood Venous blood specimen / Unknown Venipuncture / Unknown 07/20/2024 8:33 AM EST 07/20/2024 8:33 AM EST Gosia Stoner MD LAB BLOOD ORDER JIMENA Performing Organization Address City/[facility]/ZIP Co de Phone Number [facility] [address] [place] [address], [place] [phone] * Cortisol (07/20/2024 8:33 AM EST) Cortisol 15.1 mcg/dL LAB CHEMISTRY METHOD 07/20/2024 10:[address] [facility] Blood Venous blood specimen / Unknown Venipuncture / Unknown 07/20/2024 8:33 AM EST 07/20/2024 8:33 AM EST [facility] - 07/20/2024 10:40 AM EST CORTISOL REFERENCE RANGE ?? 8 AM SPEC: ??5.0-23.0 mcg/dL ?? 4 PM SPEC: ??3.0-16.0 mcg/dL ?? 8 PM SPEC: ??<5.0 mcg/dL Gosia Stoner MD LAB BLOOD ORDER JIMENA [facility] [address] [place] [address], * (ABNORMAL) Comprehensive metabolic panel (07/20/2024 8:33 AM EST) Sodium 136 133 - 145 mmol/L LAB CHEMISTRY METHOD 07/20/2024 11:24 AM [facility] Potassium 4.5 3.5 - 5.5 mmol/L LAB CHEMISTRY METHOD 07/20/2024 11:24 AM [facility] Chloride 100 96 - 110 mmol/L LAB CHEMISTRY METHOD 07/20/2024 11:24 AM [facility] CO2 25 21 - 32 mmol/L LAB CHEMISTRY METHOD 07/20/2024 11:24 AM [facility] Anion Gap 11 3 - 11 LAB CHEMISTRY METHOD 07/20/2024 11:24 AM [facility] Glucose 148(H) 70 - 100 mg/dL LAB CHEMISTRY METHOD 07/20/2024 11:24 AM [facility] BUN 15 5 - 25 mg/dL LAB CHEMISTRY METHOD 07/20/2024 11:24 AM [facility] Creatinine 0.71 0.50 - 1.10 mg/dL LAB CHEMISTRY METHOD 07/20/2024 11:24 AM [facility] eGFR 105 >=60 mL/min/1. 73m2 LAB CHEMISTRY METHOD 07/20/2024 11:24 AM [facility] Comment:Calculation based on the??Chronic Kidney Disease Epidemiology Collaboration (CKD-EPI) equation refit??without adjustment for race. BUN/Creatinine Ratio 21.1 LAB CHEMISTRY METHOD 07/20/2024 11:24 AM [facility] Calcium 9.7 8.5 - 10.5 mg/dL LAB CHEMISTRY METHOD 07/20/2024 11:24 AM [facility] AST (SGOT) 16 10 - 42 unit/L LAB CHEMISTRY METHOD 07/20/2024 11:24 AM [facility] ALT (SGPT) 29 10 - 60 unit/L LAB CHEMISTRY METHOD 07/20/2024 11:24 AM [facility] Alkaline Phosphatase 124(H) 42 - 121 unit/L LAB CHEMISTRY METHOD 07/20/2024 11:24 AM [facility] Total Protein 7.7 6.0 - 8.0 g/dL LAB CHEMISTRY METHOD 07/20/2024 11:24 AM [facility] Albumin 3.6 3.2 - 5.0 g/dL LAB CHEMISTRY METHOD 07/20/2024 11:24 AM [facility] [facility] Total Bilirubin 0.4 0.0 - 1.4 mg/dL LAB CHEMISTRY METHOD 07/20/2024 11:24 AM [facility] Blood Venous blood specimen / Unknown Venipuncture / Unknown 07/20/2024 8:33 AM EST 07/20/2024 8:33 AM EST Gosia Stoner MD LAB BLOOD ORDER [facility] [address] [place] [address], * Urine Albumin Creatinine Ratio (02/26/2014) Urine Albumin Creatinine Ratio Abstracted Historical Provider MD ROMÁN Kimball from Last 3 Months or Most Recently Relevant to Health Maintenance Care Teams Baseball Glove Shaper Relationship Specialty Start Date End Date Braulio Carbajal [address], [place] PCP - General Internal Medicine 03/20/22
--- OUTSIDE RECORDS SUMMARY | 2024-09-01 08:27 | XMS_ITS | Clinical Summary ---
Author Organization 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 Name Role Phone Unavailable Primary Care Provider Unavailabl e Allergies Active Allergy Reactions Criticality Noted Date Comments Penicillins Unknown 07/26/2022 Medications nitrofurantoin, macrocrystal-monoh ydrate, (Macrobid) 100 MG capsuleIndications :Frequency of urination,Cystitis 1 capsule 2 times a day x 5 days 10 capsule 07/26/20 22 Active phenazopyridine (Pyridium) 100 MG tabletIndications: Frequency of urination,Cystitis 1 tab 3 times a day x 2 days 6 tablet 07/26/20 22 Active dulaglutide (Trulicity) 1.5 MG/0.5ML solution pen-injectorIndica tions:Type 2 diabetes mellitus without complication, unspecified whether halfway insulin use ([facility]) Inject 1.5 mg under the skin 1 (one) time per week. 4 pen 11 08/17/19 23 Active albuterol 108 (90 Base) MCG/ACT inhalerIndications :Cough variant asthma Inhale 2 puffs every 4 (four) hours if needed for wheezing. 18 g 08/17/19 23 Active empagliflozin (Jardiance) 10 MGIndications:Type 2 diabetes mellitus with diabetic polyneuropathy, with long-term current use of insulin (CMS/HCC) TAKE 1 TABLET BY MOUTH EVERY DAY 90 tablet 03/01/20 23 Active dulaglutide (Trulicity) 4.5 MG/0.5ML solution pen-injector INJECT 4.5 MG SUBCUTANEOUSLY EVERY WEEK 2 mL 04/04/20 23 Active Continuous Blood Gluc Sensor (FreeStyle Alexei 2 Sensor) misc 1 Units 3 times daily. 1 each 3 03/28/20 23 Active lisinopril 10 MG tabletIndications: Primary hypertension TAKE 1 TABLET (10 MG) BY MOUTH IN THE MORNING. 90 tablet 3 08/30/19 24 Active atorvastatin (Lipitor) 40 MG tabletIndications: Mixed hyperlipidemia TAKE 1 TABLET (40 MG) BY MOUTH IN THE MORNING. 90 tablet 3 08/30/19 24 Active gabapentin (Neurontin) 300 MG capsule TAKE ONE CAPSULE BY MOUTH THREE TIMES A DAY 90 capsule 3 03/17/20 24 Active Active Problems No known active problems Social History Tobacco Use Types Packs/Day Years Used Date Smoking Tobacco: Never Passive Smoke Exposure: Never Smokeless Tobacco: Never Tobacco Cessation:Counseling Given: Not Answered Alcohol Use Standard Drinks/Week Comments Never 0 (1 standard drink = 0.6 oz pur e alcohol) Housing Stability Answer Date Recorded What is your housing situation today? I have lara pederson 05/22/[address] you li ve. Do you have problems with any of the following? None of the above 05/22/2023 Food Insecurity Answer Date Recorded Within the past 12 months, y ou worried that your food would run out before you got money to buy more: Never True 05/22/2023 Within the past 12 months,th e food you bought just didn't last and you didn't have enough money to get more: Never True Transportation Answer Date Recorded In the past 12 months, has l ack of transportation kept you from medical appts, meetings, work or from getting things needed for daily living? No 05/22/2023 Utilities Answer Date Recorded In the past 12 months, has t he [employer], gas, oil or water [employer] threatened to shut off services in your home? No 05/22/2023 Comments Unknown Sex and Gender Information Value Date Recorded Sex Assigned at Female 06/04/2022 10:29 AM EDT Legal Sex Female 10:29 AM EDT Gender Identity Female 06/04/2022 10:29 AM EDT Sexual Orientation Straight 06/04/2022 10 :29 AM EDT Last Filed Vital Signs Vital Sign Reading Time Taken Comments Blood Pressure 102/69 08/17/2022 1:59 PM EST Pulse 98 08/17/2022 1:59 PM EST Temperature 37 ??C (98.6 ??F) 08/17/2022 1:59 PM EST Respiratory Rate 20 08/17/2022 1:59 PM EST Oxygen Saturation 98% 08/17/2022 1:59 PM EST Inhaled Oxygen Concentration - - Weight 157 kg (346 lb) 08/17/2022 1:59 PM EST Height 175.3 cm (5' 9 ) 08/17/2022 1:59 PM EST Body Mass Index 51.1 08/17/2022 1:59 PM EST Plan of Treatment Health Maintenance Due Date Last Done Comments CT Colonography 1976 Colonoscopy 1976 Colorectal Cancer Screening 1976 Depression Screening 1976 FIT DNA/Cologuard 1976 FIT 1976 FOBT 1976 Sigmoidoscopy 1976 Alcohol/Substance Use Screening 1988 Family Planning (PISQ) 1991 Hepatitis B Vaccines (1 of 3 - 19+ 3-dose series) 1995 Pap Smear 1997 Cervical Cancer Screening 2006 HPV/Cotest 2006 Tobacco Screening 08/17/2023 08/17/2022 COVID-19 Vaccine ( season) 2024 07/13/2021, 09/22/2020, 09/06/2020, Additional history exists Influenza Vaccine (#1) 2024 , 07/14/2022, 07/13/2021, Additional history exists SDOH Screening 05/02/2024 05/02/2023 Mammogram 05/25/2026 05/25/2024, 04/06, 04/09/2023 Zoster Vaccines (1 of 2) 2026 Lipid Panel 01/02/2028 01/01/2023, 01/04, 02/24/2020 DTaP/Tdap/Td Vaccines (4 - Td or Tdap) 03/15/2032 03/15/2022, 12/11/2012, 08/05/2012 RSV Patients and Patients Aged 60 years or older (1 - 1-dose 75+ series) 2051 HIV Screening Completed 01/24/2022 Hepatitis C Screening Completed 01/24/2022 HIB Vaccines Aged Out No longer eligi [...] patient's age to complete this topic Meningococcal Vaccine Aged Out No gianna sumaya eligible based on patient's age to complete this topic Pneumococcal Vaccine: Pediatrics (0 to 5 Years) and At-Risk Patients (6 to 64 Years) Aged Out No longer eligible based on patient's age to complete this topic RSV under 20 months Aged Out No longe r eligible based on patient's age to complete this topic Rotavirus Vaccines Aged Out No longer eligible based on patient's age to complete this topic Procedures Procedure Name Priority Date/Time Associated Diagnosis Comments BI MAMMOGRAM DIAGNOSTIC TOMOSYNTHESIS BILATERAL Routine 05/25/2024 1:00 PM EDT LIPID PANEL, STANDARD Routine 01/01/2023 10:20 AM EDT Type 2 diabetes mellitus without complication, unspecified whether halfway insulin use (CMS/HCC) ZZZ HISTORICAL HEPATITIS C AB W/REFL TO HCV RNA, QN, PCR Routine 01/24/2022 8:19 AM EDT HIV 1/2 ANTIGEN/ANTIBODY, FOURTH GENERATION W/RFL Routine 01/24/2022 8:19 AM EDT from Last 3 Months or Most Recently Relevant to Health Maintenance Results * BI Mammogram Diagnostic Tomosynthesis Bilateral (05/25/2024 1:00 PM EDT) Anatomical Region Laterality Modality Breast Bilateral Mammography 05/25/2024 1:00 PM EDT Narrative 05/25/2024 4:12 PM EDT ? [facility] ? [address] ?[place] [address] ? Mammography Report ? Signed ? Patient: López,Glorymar ?MR#: [id number] ?? [id number] ? : 1975 ?Acct:[id number] ? Age/Sex: 48 / F ?ADM Date: 10/21/24 ? Loc: HO.MAMMO ? Attending Dr: Ryan Prescott MD ? Ordering Physician: Ryan Prescott MD ?Results: 2Ben ?? ign Findings ? Date of Service: 05/25/24 ?Follow Up: 1 Year From Orig ?? inal Mammogram ? Procedure(s): MM tomosynthesis diagnostic BI ?? Accession Number(s): [id number] ? cc: Braulio Carbajal MD; Ryan Prescott MD ? EXAMINATION: ?? MM DIAGNOSTIC DIGITAL BREAST TOMOSYNTHESIS, BILATERAL ? CLINICAL INFORMATION: ? Six-month follow-up for histologically benign calcifications after ?? biopsy; 2 site stereotactic biopsy 05/08/2023 right breast for benign ?? histology group of calcifications central slightly upper slightly ?? lateral aspect (buckle shaped clip), and right more anterior upper ?? outer group of benign histology loosely grouped calcifications (top hat ?? shaped clip). ? COMPARISON: ?? Mammography: 04/30/2023, 04/09/2023. ?? -Stereotactic biopsy 2 sites microcalcifications right breast ?? 05/08/2023. (Benign) ? TECHNIQUE: ?? Digital breast tomosynthesis is performed in both the craniocaudal and ?? mediolateral oblique views along with computer-aided detection (CAD). ?? Synthesized 2D images are generated from the tomosynthesis. In addition ?? to standard views, 2-D spot magnification right CC x3, and right ML and ?? 1 views were obtained. In addition, added full-field 3-D right MLO view ?? was also obtained. ? FINDINGS: ?? There are scattered areas of fibroglandular density (ACR BI-RADS breast ?? composition Category b). ? Buckle shaped biopsy clip noted right breast central, slightly upper, ?? slightly lateral region with a few scattered residual punctate ?? calcifications. No aggressive changes or new calcifications. ? Top hat shaped biopsy clip noted right breast, anterior, upper outer ?? region with a few scattered residual punctate calcifications. No ?? aggressive changes are new calcifications. ? There are vascular calcifications. There are no suspicious masses, ?? suspicious grouped calcifications, or areas of architectural distortion ?? in either breast. The parenchymal pattern is stable from prior exams. ?? There is no skin or axillary abnormality. ? MM/MM tomosynthesis diagnostic BI ?? IMPRESSION: ?? -There are no findings suspicious for malignancy in either breast. ? -2 site post stereotactic biopsy right breast shows stable scattered ?? residual punctate calcifications with no new calcifications or ?? aggressive changes. Findings are benign. ? -Recommend the patient resume routine annual screening mammography. ? ASSESSMENT: ? BI-RADS BI-RADS 2 - Benign Findings ? RECOMMENDATION: ?? 1 year F/U ? Results were provided to the patient at time of visit by the ?? technologist. ? This patient's information was entered into a reminder system with a ?? target due date for their next mammogram. ? Electronically signed by: ??Lorenzo Rueda MD ??05/25/2024 04:09 PM EDT RP ? Dictated By: ?Lorenzo Rueda MD ? Signed By: ?<Electronically signed by Lorenzo Rueda MD in OV> ?05/25/24 1609 ? DD/ 1300 ? TD/TT: 05/25/24 1350 ? 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 Procedure Note Tari, Dave - 05/25/2024 [place] [facility] [address] [place] [address] Mammography Report Signed Patient: Julia LópezMR#: [id number] : 1975Acct:[id number] Age/Sex: 48 / FADM Date: 05/25/24 Loc: HO.MAMMO Attending Dr: Ryan Prescott MD Ordering Physician: Ryan Prescottesults: 2Ben ign Findings Date of Service: 05/25/24Follow Up: 1 Year From Orig inal Mammogram Procedure(s): MM tomosynthesis diagnostic BI Accession Number(s): [id number] cc: Braulio Carbajal MD; Ryan Prescott MD EXAMINATION: MM DIAGNOSTIC DIGITAL BREAST TOMOSYNTHESIS, BILATERAL CLINICAL INFORMATION: Six-month follow-up for histologically benign calcifications after biopsy; 2 site stereotactic biopsy 05/08/2023 right breast for benign histology group of calcifications central slightly upper slightly lateral aspect (buckle shaped clip), and right more anterior upper outer group of benign histology loosely grouped calcifications (top hat shaped clip). COMPARISON: Mammography: 04/30/2023, 04/09/2023. -Stereotactic biopsy 2 sites microcalcifications right breast 05/08/2023. (Benign) TECHNIQUE: Digital breast tomosynthesis is performed in both the craniocaudal and mediolateral oblique views along with computer-aided detection (CAD). Synthesized 2D images are generated from the tomosynthesis. In addition to standard views, 2-D spot magnification right CC x3, and right ML and 1 views were obtained. In addition, added full-field 3-D right MLO view was also obtained. FINDINGS: There are scattered areas of fibroglandular density (ACR BI-RADS breast composition Category b). Buckle shaped biopsy clip noted right breast central, slightly upper, slightly lateral region with a few scattered residual punctate calcifications. No aggressive changes or new calcifications. Top hat shaped biopsy clip noted right breast, anterior, upper outer region with a few scattered residual punctate calcifications. No aggressive changes are new calcifications. There are vascular calcifications. There are no suspicious masses, suspicious grouped calcifications, or areas of architectural distortion in either breast. The parenchymal pattern is stable from prior exams. There is no skin or axillary abnormality. MM/MM tomosynthesis diagnostic BI IMPRESSION: -There are no findings suspicious for malignancy in either breast. -2 site post stereotactic biopsy right breast shows stable scattered residual punctate calcifications with no new calcifications or aggressive changes. Findings are benign. -Recommend the patient resume routine annual screening mammography. ASSESSMENT: BI-RADS BI-RADS 2 - Benign Findings RECOMMENDATION: 1 year F/U Results were provided to the patient at time of visit by the technologist. This patient's information was entered into a reminder system with a target due date for their next mammogram. 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: [facility] External Provider IMG BI PROCEDURES Edited Result - Final * Lipid Panel, Standard (01/01/2023 10:20 AM EDT) Triglycerides 73 mg/dL [facility] Comment:Desirable Triglyceri de: less than 150 mg/dLBorderline High Triglyceride 150-199 mg/dLHigh Triglyceride: 200-499 mg/dLVery High Triglyceride: greater than or equal to 5OO mg/dL Cholesterol 101 mg/dL [facility] Comment:Desirable Cholestero l: less than 200 mg/dLBorderline High Cholesterol: 200-239 mg/dLHigh Cholesterol: greater than 239 mg/dL LDL Cholesterol Calculated 53 mg/dl [facility] Comment:Desirable LDL: less than 100 mg/dLNear Optimal/Above Optimal LDL: 110- 129 mg/dLBorderline High LDL: 130-159 mg/dLHigh LDL: 160-189 mg/dLVery High LDL: greater than or equal to 190 mg/dL HDL Cholesterol 34 mg/dL [facility] Comment:Desirable HDL: great er than 40 mg/dL Note: This HDL assay may give artificially low results in patients with liver disease. 01/01/2023 10:2 0 AM EDT 01/01/2023 10:20 AM EDT [facility] External Provider LAB BLO OD ORDERABLES Final Result [facility] [address] [place] [address] [phone] * HEPATITIS C AB W/REFL TO HCV RNA, QN, PCR (01/24/2022 8:19 AM EDT) HEPATITIS C ANTIBODY NON-REACT SÁNCHEZ NON-REACT SÁNCHEZ [facility] INDEX 0.02 <1.00 [facility] Comment: ?? HCV antibody was non-reactive. There is no laboratory ?? evidence of HCV infection. ?? In most cases, no further action is required. However, if recent HCV exposure is suspected, a test for HCV RNA (test code 47606) is suggested. ?? For additional information please refer to http://[employer]/faq/SQO67o1 (This link is being provided for informational/ educational purposes only.) ?? 01/24/2022 8:19 AM EDT Braulio Campbell MD HISTORICAL/NON ORD ERABLE LABS Final Result Performing Organization Address City/[facility] Co de Phone Number [facility] [address] * HIV 1/2 ANTIGEN/ANTIBODY,FOURTH GENERATION W/RFL (01/24/2022 8:19 AM EDT) HIV-1/2 ANTIGEN AND ANTIBODIES, 4TH GENERATION W/ REFLEX NON-REACT SÁNCHEZ NON-REACT SÁNCHEZ [facility] Comment: HIV-1 antigen and HIV-1/HIV-2 antibodies were not detected. There is no laboratory evidence of HIV infection. ?? PLEASE NOTE: This information has been disclosed to you from records whose confidentiality may be protected by state law. ??If your state requires such protection, then the state law prohibits you from making any further disclosure of the information without the specific written consent of the person to whom it pertains, or as otherwise permitted by law. A general authorization for the release of medical or other information is NOT sufficient for this purpose. ? For additional information please refer to http://education.[employer]/faq/QVW414 (This link is being provided for informational/ educational purposes only.) ? The performance of this assay has not been clinically validated in patients less than 2 years old. ?? 01/24/2022 8:19 AM EDT Braulio Campbell MD LAB BLOOD ORDERABL ES Final Result [facility] [address] from Last 3 Months or Most Recently Relevant to Health Maintenance Insurance [employer] [place] [id number]
--- OUTSIDE RECORDS SUMMARY | 2024-09-01 08:27 | XMS_ITS | Data Portability ---
Author Organization [place] - [facility],, ADRIANA LARA MD Address [address] [address] Assessment No assessment recorded. Plan of Treatment Reminders Order Date Submit Date Provider Last Modified By Organization Details Last Modified Time Details Appointments None recorded. Lab pap test, thinprep, cervical 2014 015 [facility], Cytopathology Service, [address] [place] [address], [id number], 5 12:26:29 chlamydia sp, culture, unspecifi ed specimen [email or web address], [address] [place], [address], 5 08:24:20 NG DNA, PCR, genital 2014 015 [facility], Cytopathology Service, [address] [place] [address], [address], 5 08:24:20 test, urine 2014 015 [email or web address] 1 In-Office Order, Internal Use Only DO Not Attach Compendium DO Not Attach Compendium, Do Not Delete/merge, [id number] 5 11:43:08 pap test, thinprep, cervical 2018 019 [facility], Cytopathology Service, [address] [place] [address], [address], 9 04:32:23 fecal occult blood, stool 2018 019 [email or web address] In-Office Order, Internal Use Only DO Not Attach Compendium DO Not Attach Compendium, Do Not Delete/merge, [id number] 9 07:31:20 pap test, thinprep, cervical 2019 020 [email or web address] [facility], Cyt[facility] Service, [address] [place] [address], [id number], 0 08:59:10 fecal occult blood, stool 2019 020 [email or web address] In-Office Order, Internal Use Only DO Not Attach Compendium DO Not Attach Compendium, Do Not Delete/merge, [id number] 0 08:59:10 pap test, thinprep, cervical 2020 021 [email or web address] [facility], Cytopathology Service, [address] [place] [address], [address], 1 07:14:16 fecal occult blood, stool 2020 021 [email or web address] 1 In-Office Order, Internal Use Only DO Not Attach Compendium DO Not Attach Compendium, Do Not Delete/merge, [id number] 1 13:58:54 pap test, thinprep, cervical 2021 022 [email or web address] [facility], Cytopathology Service, [address] [place] [address], [address], 2 07:36:24 fecal occult blood, stool 2021 022 [email or web address] In-Office Order, Internal Use Only DO Not Attach Compendium DO Not Attach Compendium, Do Not Delete/merge, [id number] 2 11:34:07 Referral None recorded. Procedures None recorded. Surgeries None recorded. Imaging MAMMO, screening , digital, bilateral 2018 [facility], [address], [address], [place], [address], 0 07:25:26 MAMMO, screening , digital, bilateral 2019 020 [facility] (Mammography), [address], [place], [address], 1 07:41:40 MAMMO, screening , digital, bilateral 2020 021 [facility] Orders, [address], [address], [place], [address], 2 07:36:18 MAMMO, screening , digital, bilateral 2021 022 [facility] Orders, [address], [address], [place], [address], 4 07:16:34 Medication Orders None recorded. Patient TargetsNo targets recorded. Patient Instructions Encounter Date Encounter Id Patient Instructions Last Modified By Organization Details Last Modified Time 12/07/2014 [id number] She is here for annual exam. Her latest A1C was 10, in 06/18,? ? ? the [facility] infertility referred her to endocrinology in 06/18, she was given instructions for rescue insulin doses when her sugars are high, she is doing that now, she had an A1C drawn on 11/25/14 but has not received the results yet. She is aware that she is taking medication that she should not be taking if she becomes , is advised to use condoms until her A1C is improved and her meds are changed around to be safe in . Menses have been irregular every 4 to 6 weeks, no [id number] no for 6 weeks, check u preg, is negative. She appears to be doing well. She is advised to get 1500 mg of calcium daily into her diet and supplements combined. There is a health benefit with adequate vitamin D supplementation to at least 400 units daily, daily aerobic exercise of 30 minutes, and stress reduction. Monthly self breast exam was taught, and stressed, and is advised to call if she discovers any new mass in the breast. ? ? ? Seat belt use for herself and passengers are advised. There are significant health benefits of becoming and remainig fit, with an optimal BMI. There is a potential reduction in chronic discomfort, diminished risks of hypertension, diabetes, and heart disease with the proper weight management. With a recommended BMI there can be improved mobility as she ages. Strategies to reach and maintain her target weight were discussed in detail. Not available 12/07/2014 11:43:09 09/01/2018 [id number] She is here for annual exam. She has not been here since 2014. She was seeing [facility] but they gave up on theat and put in a Mirena 2 years ago. No menses. Her diabetes has been Bad. In 07/2016 she started a process to do bariatric surgery at [facility]. She went through all the counseling ,etc, but things fell through the cracks. She is considering going back again. she had weighted more than 400 pounds last year, she lost some weight this past year with diet and exercise but still weighs 366 pounds today. _ note from 2014: She is here for annual exam. Her latest A1C was 10, in 06/18, the [facility] infertility referred her to endocrinology in 06/18, she was given instructions for rescue insulin doses when her sugars are high, she is doing that now, she had an A1C drawn on 11/25/14 but has not received the results yet. She has scant red blood in vaginal vault. She was unaware she had any spotting. She is advised to call if this recurs. She will need to check manually in the shower. Pap is taken. She appears to be doing well. Advised to follow up with her records tech about her diabetes. She is going back to talk about weight loss surgery, also. She is advised to get 1500 mg of calcium daily into her diet and supplements combined. We discussed the benefits of adequate vitamin D supplementation to at least 400 units daily, daily aerobic exercise of 30 minutes, and stress reduction. Monthly self breast exam was taught, and stressed, and is advised to call if she discovers any new mass in the breast. Seat belt use for herself and passengers advised. The significant health benefits of becoming and remainig fit, with an optimal BMI, were also discussed. We discussed the potential reduction in chronic discomfort, the diminished risks of hypertension, diabetes, and heart disease with the proper weight management, and improved mobility as she ages. Strategies to reach and maintain her target weight wer discussed in detail, all questions answered. Not available 09/01/2018 10:07:54 09/08/2019 [id number] She is here for annual exam, her weight is stable at 367 pounds. Her was in the ICU for 4 weeks due to sepsis, he is better now though. She had a Mirena placed 3 years ago, no menses. note form 2019: She is here for annual exam. She has not been here since 2014. She was seeing [facility] but they gave up on theat and put in a Mirena 2 years ago. No menses. Her diabetes has been Bad. In 07/2016 she started a process to do bariatric surgery at [facility]. She went through all the counseling ,etc, but things fell through the cracks. She is considering going back again. she had weighted more than 400 pounds last year, she lost some weight this past year with diet and exercise but still weighs 366 pounds today. She appears to be doing well. Weight management issues discussed. She will get the date of IUD insertion at [facility] for us so that we know when it needs to be changed. She is advised to get 1500 mg of calcium daily into her diet and supplements combined. There is a health benefit with adequate vitamin D supplementation to at least 400 units daily, daily aerobic exercise of 30 minutes, and stress reduction. Monthly self breast exam was taught, and stressed, and is advised to call if she discovers any new mass in the breast. Seat belt use for herself and passengers are advised. There are significant health benefits of becoming and remainig fit, with an optimal BMI. There is a potential reduction in chronic discomfort, diminished risks of hypertension, diabetes, and heart disease with the proper weight management. With a recommended BMI there can be improved mobility as she ages. Strategies to reach and maintain her target weight were discussed in detail. [email or web address] Not available 09/08/2019 15:23:23 04/04/2021 [id number] learning about healthy weight rebecca Not available 04/04/2021 13:58:54 She is here for annual exam, weight is 391 pounds, BMI is 58.6. She had a Mirena inserted 08/2016. No menses. Her mother earlier this year due to natural causes, in [place], she is still grieving. She and her are , she wanted to go to couples counseling but he would only go in [place] and they could not find a [place] counselor. Note from 2019: She is here for annual exam, her weight is stable at 367 pounds. Her was in the ICU for 4 weeks due to sepsis, he is better now though. She had a Mirena placed 3 years ago, no menses. Note from 2019: She is here for annual exam. She has not been here since 2014. She was seeing [facility] infertility but they gave up on theat and put in a Mirena 2 years ago. No menses. Her diabetes has been Bad. In 07/2016 she started a process to do bariatric surgery at [facility]. She went through all the counseling ,etc, but things fell through the cracks. She is considering going back again. she had weighted more than 400 pounds last year, she lost some weight this past year with diet and exercise but still weighs 366 pounds today. She appears to be doing well. She and I discussed having her go back to [facility] to get back into their weight loss program, that would be a positive step forward for her, she agrees to do this. IUD is good until 08/2022. She is advised to get 1500 mg of calcium daily into her diet and supplements combined. We discussed the benefits of adequate vitamin D supplementation to at least 400 units daily, daily aerobic exercise of 30 minutes, and stress reduction. Monthly self breast exam was taught, and stressed, and is advised to call if she discovers any new mass in the breast. [email or web address] Not available 04/04/2021 14:00:20 04/17/2022 [id number] learning about healthy weight Not available 04/17/2022 10:59:33 Her weight is do wn to 357, with diet and exercise. She has bakc problems and will likely need surgery. No menses due to Mirena, placed in 08/2016, now good for 8 years. Note from 2020: She is here for annual exam, weight is 391 pounds, BMI is 58.6. She had a Mirena inserted 08/2016. No menses. Her mother earlier this year due to natural causes, in [place], she is still grieving. She and her are , she wanted to go to couples counseling but he would only go in [place] and they could not find a [place] speaking counselor. She appears to be doing well. She is overdue for mammo, she agrees to go. She is advised to get 1500 mg of calcium daily into her diet and supplements combined. We discussed the benefits of adequate vitamin D supplementation to at least 400 units daily, daily aerobic exercise of 30 minutes, and stress reduction. Monthly self breast exam was taught, and stressed, and is advised to call if she discovers any new mass in the breast. Not available 04/17/2022 10:59:31 Reason for Referral None Reported. Results Created Date Observation Date Name Description Value Unit Range Abnormal Flag Note LastModifiedBy Organization Detail LastModifiedTime 04/04/20 21 04/04/2021 fecal occul t blood , stool Occult Blood negati ve Not Available In-Office Order Internal Use Only DO Not Attach Compendium DO Not Attach Compendium, Do Not Delete/merge, [id number] 04/04/2021 13:36:07 02/04/09/08/2019 fecal occul t blood , stool Occult Blood negati ve Not Available In-Office Order Internal Use Only DO Not Attach Compendium DO Not Attach Compendium, Do Not Delete/merge, [id number] 09/08/2019 15:00:26 09/01/19 19 09/01/2018 fecal occul t blood , stool Occult Blood negati ve Not Available In-Office Order Internal Use Only DO Not Attach Compendium DO Not Attach Compendium, Do Not Delete/merge, [id number] 09/01/2018 09:30:38 12/08/19 15 12/07/2014 pregn marshal test, urine HCG negati ve Not Available In-Office Order Internal Use Only DO Not Attach Compendium DO Not Attach Compendium, Do Not Delete/merge, [id number] 12/07/2014 10:52:47 12/08/19 15 12/07/2014 gener al5ca se [id number] RESUL TS OF GEN-P ROBE APTIM A COMBO 2 ASSAY Chlam ydia: NEGAT SÁNCHEZ N. gonor rhoea e: NEGAT SÁNCHEZ GENANIRANJAN RIOS M.D., Patho logis t (Case elect martin sy chuy d 12 09 2014) CL[facility] INFOR MATIO N: LPS NEG SOURC E: ThinP rep Pap for CT/GC Gross Descr iptio n: ThinP rep Vial Recei joanne. Physi JAYSON Russ N /#[phone]/[phone] [id number] Cytop athol ogy servi carlos provi ded by [facility] at the above addre ss. Not Available [facility], Cytopathology Service [address] [facility], [place], [address], 12/09/2014 15:06:31 12/08/19 15 12/07/2014 pap, LB [id number] ThinP rep Pap, Image d: NEGAT SÁNCHEZ FOR SQUAM OUS INTRA EPITH ELIAL LESIO N AND MALMAIA CARD . Tonie Bejarano ams, CT( CP) (Case elect martin sy chuy d 12 14 2014) ADEQU ACY: Satis facto ry. Endoc ervic al/tr ansfo rmati on zone compo nent prese nt. SOURC E: ThinP rep Pap, Cervi jose, Image d CLINI JO[facility] INFOR MATIO N: HPV If Diagn osis of ASCUS . lps neg. * Cytop athol ogy servi carlos provi ded by [facility] at the above addre ss. Not Available [facility], Cytopathology Service [address] [place] [address], [address], 12/14/2014 12:26:29 09/01/19 19 09/01/2018 pap, LB [id number] ThinP rep Pap, Image d: NEGAT SÁNCHEZ FOR SQUAM OUS INTRA EPITH ELIAL LESIO N AND MALIG STEPHIE . Raya finnegan , CT( CP) (Case elect martin sy chuy d 09 02 2018) ADEQU ACY: Satis facto ry Endoc ervic al/tr ansfo rmati on zone compo nent absen t. SOURC E: ThinP rep Pap HPV IF ASCUS , Cervi jose, Image d CLINI JOSE INFOR MATIO N: HPV If Diagn osis of ASCUS . LPS 5 NEG, Z12.4 Not Available [facility], Cytopathology Service [address] [place] [address], [address], 09/02/2018 17:26:28 09/08/19 20 09/08/2019 pap, LB [id number] ThinP rep Pap, Image d: NEGAT SÁNCHEZ FOR SQUAM OUS INTRA EPITH ELIAL LESIO N AND MALIG STEPHIE . Latoya Perez a , CT( CP) (Case elect martin sy chuy d 09 10 2019) ADEQU ACY: Satis facto ry Endoc ervic al/tr ansfo rmati on zone compo nent absen t. SOURC E: ThinP rep Pap HPV IF ASCUS , Cervi jose, Image d CLINI JOSE INFOR MATIO N: HPV If Diagn osis of ASCUS . LPS NEG [Z12. 4] Not Available [facility], Cytopathology Service [address] [place], [address], 09/10/2019 13:06:44 04/04/20 21 04/04/2021 PAP1C ASE [id number] ThinP rep Pap, Image d: NEGAT SÁNCHEZ FOR SQUAM OUS INTRA EPITH ELIAL LESIO N AND MALIG STEPHIE . Raya Shah hers , CT( CP) (Case elect martin sy chuy d 04 12 2021) ADEQU ACY: Satis facto ry Endoc ervic al/tr ansfo rmati on zone compo nent absen t. SOURC E: ThinP rep Pap HPV IF ASCUS , Cervi jose, Image d CLINI JO[facility] INFOR MATIO N: HPV If Diagn osis of ASCUS . LPS 0 NEG [Z12. 4] Not Available [facility] Cytopathology Service [address] [place] [address], [address], 04/12/2021 13:55:52 04/17/2004/17/2022 PAP1C ASE [id number] ThinP rep Pap, Image d: NEGAT SÁNCHEZ FOR SQUAM OUS INTRA EPITH ELIAL LESIO N AND MALIG STEPHIE . Una Martinez il , CT( CP) (Case elect martin sy chuy d 04 22 2022) ADEQU ACY: Satis facto ry Endoc ervic al/tr ansfo rmati on zone compo nent absen t. SOURC E: ThinP rep Pap HPV IF Ascus : Refle x 16 and 18, Cervi jose, Image d CLINI [facility] INFOR MATIO N: HPV If Diagn osis of ASCUS . LMP No perio ds on IUD, LPS neg. [z01. 419] Not Available [facility], Cytopathology Service [address] [place] [address], [address], 04/23/2022 08:11:00 04/17/2004/17/2022 fecal occul t blood , stool Occult Blood negati ve Not Available In-Office Order Internal Use Only DO Not Attach Compendium DO Not Attach Compendium, Do Not Delete/merge, [id number] 04/17/2022 10:29:09 Result Notes None recorded. Problems Name Problem SNOMED Code Status Onset Date Resolution Date Notes Provider Name and Address Organization Details Recorded Time Candidal vulvovaginiti s 48769824 Active Not Available [facility] 3 03:01:06 Irritable bowel syndrome 17976247 Active Not Available [facility] 3 03:01:06 Obesity 181996115 Active Not Available [facility] 3 03:01:06 Oligoovulator y dysfunctional uterine bleeding 366762848 Active Adriana Lara MD [address], [place], [address] , [place] - [facility], 5 11:43:08 Uncontrolled type 2 diabetes mellitus 288915963 Active Not Available [facility] 3 03:01:06 Primary female infertility 2485982 Active Not Available [facility] 3 03:01:06 Pruritus of vulva 61267491 Active Not Available [facility] 3 03:01:06 Pain in pelvis 28066513 Active Adriana Lara MD [address], [place], [address] , [place] - [facility], 4 15:07:42 Glycosuria 50712255 Active Adriana Lara MD [address], [place], [address] , [place] - [facility], 4 15:07:42 Problem Notes None recorded. Procedures Surgical History Date Name Laterality Status Provider Name and Address Organization Details Recorded Time 04/05/20 20 Most Recent Mammogram completed Yashira Alonso [place] - [facility], 04/17/2022 10:36:13 08/05/19 Cholecystectomy completed Taryn Beasley [place] - [facility], 11/10/2012 13:22:27 Imaging Results None recorded. Procedure Notes None recorded. Medical Equipment None Reported. Allergies Allergen ID Allergen Name Allergen Category Reaction Reaction Severity Criticality Documentation Date Start Date Code Code System Note Provider Name and Address Organization Details Recorded Time [address] [facility] environma nt,medica tion rash Not available Not available 09/08/2019 97224 RxNorm Yashira Celeste [place] [facility], 0 14:53:01 7561 Product containin g penicilli n and antibioti c (product) medicatio n rash Not available Not available 11/10/2012 43616 05 SNOMED Taryn Beasley [place] [facility] in [facility], 3 13:11:08 Medications Name Sig Start Date Stop Date Status Note LastModified by Organization Details LastModified Time fluconazol e tab 100mg active Not Available Not Available Not Available novolog inj 100/ml 09/01 completed Not Available Not Available Not Available tramadol hcl tab 50mg active Not Available Not Available Not Available clobetasol lot 0.05% active Not Available Not Available No t Available compound drug triamcinol on oin 0.1% active Not Available Not Available Not Available triamcinol one /cerave moistur APPLY DAILY FROM NECT DOWN AFTER SHOWERS NOT TO BE USED ON FACE 09/01 completed Not Available Not Available Not Available fluconazol e tab 150mg active Not Available Not Available Not Available freestyle mis lite 09/01 completed Not Available Not Available Not Available methylphen id tab 54mg er active Not Available Not Available Not Available sertraline tab 100mg active Not Available Not Available No t Available methylphen id cap 10mg active Not Available Not Available Not Available januvia tab 100mg active Not Available Not Available No t Available naproxen tab 500mg active Not Available Not Available No t Available dexmethylp h tab 10mg active Not Available Not Available N ot Available lantus inj 100/ml 09/01 completed Not Available Not Available Not Available triamcinol on oin 0.1% active Not Available Not Available Not Available omeprazole cap 20mg active Not Available Not Available Not Available methylphen id tab 18mg er active Not Available Not Available Not Available diphen/atr op tab 2.5mg active Not Available Not Available Not Available losartan/h ct tab 100-12.5 active Not Available Not Available Not Available freestyle margarita lite 09/01 completed Not Available Not Available Not Available methylphen id tab 36mg er active Not Available Not Available Not Available lorazepam tab 1mg 09/01 completed Not Available Not Available Not Available cyclobenza ricardo 10 mg tablet TAKE 1 TABLET BY MOUTH THREE TIMES DAILY active Not Available Not Available No t Available Mirena 21 mcg/24 hr (up to 8 years) 52 mg intrauteri ne device Take by intrauter ine route. 2016 active Not Available Not Available Not Avai lable biotin 10 mg tablet 09/08 completed Not Available Not Available Not Available insulin syringe U-100 with needle 1 mL 30 gauge x 12/18 USE BY SUBCUTANE OUS ROUTE EVERY BEDTIME active Not Available Not Available No t Available fluconazol e 100 mg tablet TAKE 1 TABLET A SINGLE DOSE. REPEAT ONCE A WEEK 3 WEEKS TOTAL active Not Available Not Available No t Available atorvastat in 40 mg tablet TAKE 1 TABLET BY MOUTH EVERY DAY active Not Available Not Available No t Available metformin 500 mg tablet TAKE 2 TABLET BY MOUTH 2 TIMES A DAY,X30 DAYS 09/01 completed Not Available Not Available Not Available Vitamin B-2 100 mg tablet TOME DANIE TABLETA POR VIA ORAL DOS VECES AL LA NENA active Not Available Not Available No t Available prednisone 10 mg tablet TAKE 1 TABLET BY MOUTH EVERY DAY 04/17 completed Not Available Not Available Not Available nabumetone 750 mg tablet TAKE 1 TABLET BY MOUTH TWICE DAILY 09/01 completed Not Available Not Available Not Available Humulin R U-500 (Concentra stewart) Insulin 500 unit/mL subcutaneo us soln INJECT 30U (0.06 ML) BY SUBCUTANE OUS ROUTE 3 TIMES DAILY WITH MEALS active Not Available Not Available No t Available ibuprofen 800 mg tablet TAKE 1 TABLET BY MOUTH 3 TIMES A DAY WITH FOOD 09/01 completed Not Available Not Available Not Available tizanidine 4 mg tablet TAKE 1 TABLET EVERY 8 HOURS NEEDED NOT TO EXCEED 3 DOSES IN 24 HOURS 09/08 completed Not Available Not Available Not Available fluconazol e 150 mg tablet TAKE 1 TABLET A SINGLE DOSE active Not Available Not Available No t Available benzonatat e 200 mg capsule TAKE 1 CAPSULE BY MOUTH THREE TIMES DAILY FOR 10 DAYS 04/04 completed Not Available Not Available Not Available hydrocodon e 5 mg-acetami nophen 325 mg tablet 09/01 completed Not Available Not Available Not Available meloxicam 15 mg tablet active Not Available Not Available Not Available hydroquino ne 4 % topical cream APPLY TO DARK SPOTS 2 TIMES DAILY active Not Available Not Available No t Available ondansetro n HCl 4 mg tablet TAKE 1 TABLET BY MOUTH EVERY 6 HOURS NEEDED FOR NAUSEA active Not Available Not Available No t Available dextroamph etamine-am phetamine 10 mg tablet 09/08 completed Not Available Not Available Not Available sertraline 100 mg tablet TK 1 T PO D 09/08 completed Not Available Not Available Not Available clobetasol 0.05 % topical cream APPLY TOPICALLY 2 TIMES A DAY 09/08 completed Not Available Not Available Not Available Lantus U-100 Insulin 100 unit/mL subcutaneo us solution INJECT 30 UNITS INTO THE SKIN AT BEDTIME INCREASE BY 2 UNITS NIGHTLY UP TO 50 UNITS UNTIL SUG 09/01 completed Not Available Not Available Not Available diphenoxyl ate-atropi ne 2.5 mg-0.025 mg tablet TAKE 1 TABLET BY MOUTH NEEDED FOR DIARRHEA active Not Available Not Available No t Available triamcinol one acetonide 0.5 % topical ointment 04/04 completed Not Available Not Available Not Available methylphen idate ER 54 mg tablet,ext ended release 24 hr TOME DANIE TABLETA POR VIA ORAL TODOS LOS ORTEZ active Not Available Not Available No t Available tretinoin 0.05 % topical cream active Not Available Not Available Not Available sulfametho xazole 800 mg-trimeth oprim 160 mg tablet 09/08 completed Not Available Not Available Not Available tramadol 50 mg tablet TAKE 1 TABLET BY MOUTH EVERY 8 HOURS NEEDED FOR PAIN 04/17 completed Not Available Not Available Not Available triamcinol one acetonide 0.1 % topical cream active Not Available Not Available Not Available dexmethylp henidate 10 mg tablet TAKE 1 TABLET BY MOUTH EVERY DAY AT 4PM WITH FOOD active Not Available Not Available No t Available oxycodone- acetaminop hen 5 mg-325 mg tablet TOME 1 TABLETA CADA 8 HORAS 04/17 completed Not Available Not Available Not Available terbinafin e HCl 250 mg tablet 04/04 completed Not Available Not Available Not Available vitamin A 3,000 mcg (10,000 unit) capsule TAKE 3 CAPSULES BY MOUTH EVERY DAY 09/01 completed Not Available Not Available Not Available dextroamph etamine-am phetamine ER 20 mg 24hr capsule,ex tend release TK 1 C PO BID WITH FOOD active Not Available Not Available No t Available Humalog U-100 Insulin 100 unit/mL subcutaneo us solution INJECT 20 UNITS SUBCUTANE OUSLY 3 TIMES A DAY BEFORE MEALS 09/01 completed Not Available Not Available Not Available benzonatat e 100 mg capsule TAKE 1 CAPSULE BY MOUTH THREE TIMES DAILY FOR 10 DAYS 04/04 completed Not Available Not Available Not Available hyoscyamin e 0.125 mg disintegra ting tablet Place 1 tablet every 4 hours by sublingua l route. 09/01 completed Not Available Not Available Not Available cephalexin 500 mg capsule 09/08 completed Not Available Not Available Not Available triamcinol one acetonide 0.1 % topical ointment APPLY THIN FILM TWICE DAILY NEEDED FOR ITCHING active Not Available Not Available No t Available lisinopril 10 mg tablet TAKE 1 TABLET BY MOUTH EVERY DAY active Not Available Not Available No t Available Concerta 36 mg tablet,ext ended release Take 1 tablet every day by oral route. active Not Available Not Available No t Available betamethas one dipropiona te 0.05 % topical cream 09/08 completed Not Available Not Available Not Available gabapentin 300 mg capsule TOME 1 CAPSULA JANNIE VECES AL LA NENA active Not Available Not Available No t Available omeprazole 20 mg capsule,de layed release TOME DANIE CAPSULA POR VIA ORAL TODOS LOS ORTEZ active Not Available Not Available No t Available hydrochlor othiazide 25 mg tablet TAKE 1 TABLET BY MOUTH EVERY DAY IN THE MORNING 09/08 completed Not Available Not Available Not Available ergocalcif edilberto (vitamin D2) 1,250 mcg (50,000 unit) capsule 04/04 completed Not Available Not Available Not Available lorazepam 1 mg tablet TAKE 1 TABLET BY MOUTH EVERY DAY NEEDED FOR PANIC ATTACKS active Not Available Not Available No t Available ibuprofen 600 mg tablet TAKE 1 TABLET BY MOUTH EVERY 8 HOURS NEEDED 09/08 completed Not Available Not Available Not Available albuterol sulfate HFA 90 mcg/actuat ion aerosol inhaler INHALE 1 TO 2 PUFFS BY MOUTH EVERY 4 HOURS NEEDED FOR WHEEZING 04/04 completed Not Available Not Available Not Available dextroamph etamine-am phetamine ER 30 mg 24hr capsule,ex tend release active Not Available Not Available Not Available methylphen idate ER 18 mg tablet,ext ended release 24 hr TOME DANIE TABLETA POR VIA ORAL TODOS LOS ORTEZ active Not Available Not Available No t Available fluoxetine 20 mg capsule TK ONE C PO QAM active Not Available Not Available No t Available metformin ER 500 mg tablet,ext ended release 24 hr TAKE 2 TABLETS BY ORAL ROUTE 2 TIMES EVERY DAY WITH A MEAL 09/08 completed Not Available Not Available Not Available doxycyclin e hyclate 100 mg tablet TAKE 1 TABLET BY MOUTH TWICE DAILY FOR 10 DAYS 04/04 completed Not Available Not Available Not Available ipratropiu m bromide 21 mcg (0.03 %) nasal spray active Not Available Not Available Not Available naproxen 500 mg tablet TAKE 1 TABLET TWICE DAILY AFTER MEALS NEEDED. 09/08 completed Not Available Not Available Not Available Amphetamin e Salt Combo 10 mg tablet TAKE 1/2-1 TABLET BY MOUTH EVERY DAY AT 3 PM 09/01 completed Not Available Not Available Not Available dextroamph etamine-am phetamine ER 25 mg 24hr capsule,ex tend release TAKE 2 CAPSULES BY MOUTH EVERY MORNING active Not Available Not Available No t Available atomoxetin e 40 mg capsule 09/08 completed Not Available Not Available Not Available Novolog FlexPen U-100 Insulin aspart 100 unit/mL (3 mL) subcutaneo us INJECT UP TO 150 UNITS DIRECTED 09/01 completed Not Available Not Available Not Available ciclopirox 1 % shampoo active Not Available Not Available Not Available clobetasol 0.05 % lotion APPLY ON LESION DIRECTED active Not Available Not Available No t Available bupropion HCl XL 300 mg 24 hr tablet, extended release TAKE 1 TABLET BY MOUTH EVERY DAY IN THE MORNING active Not Available Not Available No t Available bupropion HCl XL 150 mg 24 hr tablet, extended release TK 1 T PO QAM 04/04 completed Not Available Not Available Not Available methylphen idate CD 10 mg biphasic 30-70 capsule,ex tended release TOME DANIE CAPSULA POR VIA ORAL TODOS LOS ORTEZ POR 7 ORTEZ THEN TOME 2 CAPSULAS POR VIA ORAL TODOS LOS active Not Available Not Available No t Available fluocinolo ne 0.01 % scalp oil and shower cap active Not Available Not Available Not Available losartan 100 mg-hydroch lorothiazi de 12.5 mg tablet TOME DANIE TABLETA POR VIA ORAL TODOS LOS ORTEZ active Not Available Not Available No t Available insulin admin supplies 09/01 completed Not Available Not Available Not Available folic acid 09/08 completed Not Available Not Available Not Available Kenalog active Not Available Not Avail able Not Available Lantus U-100 Insulin 09/01 completed 60 units PM Not Available Not Available Not Available BD Ultra-Fine Short Pen Needle 31 gauge x 5/16 USE TO INJECT WITH INSULIN UP TO 3 TIMES DAILY active Not Available Not Available No t Available Januvia 100 mg tablet TOME DANIE TABLETA POR VIA ORAL TODOS LOS ORTEZ active Not Available Not Available No t Available FreeStyle Lite Meter kit USE TO CHECK BLOOD SUGAR 4 TIMES A DAY.DX-25 0.00 09/01 completed Not Available Not Available Not Available Lantus Solostar U-100 Insulin 100 unit/mL (3 mL) subcutaneo us pen INJECT 60 UNIT BY SUBCUTANE OUS ROUTE EVERY BEDTIME PER INSULIN PROTOCOL E11.9 09/08 completed Not Available Not Available Not Available Humalog KwikPen (U-100) Insulin 100 unit/mL subcutaneo us INJECT 15-40 UNITS PER SLIDING SCALE 3 TIMES A DAY WITH MEALS 09/01 completed Not Available Not Available Not Available blood pressure test kit-large cuff Check blood pressure on arm as directed ONCE DAILY active Not Available Not Available No t Available BD Ultra-Fine Sheri Pen Needle 32 gauge x 5/32 USE TO GIVE INSULIN 3X A DAY. E 11.9 active Not Available Not Available No t Available dexmethylp henidate ER 40 mg capsule,ex tended release -50 TAKE 1 CAPSULE BY MOUTH EVERY DAY WITH FOOD 09/01 completed Not Available Not Available Not Available Vitamin B-1 (mononitra te) 100 mg tablet TAKE 1 TABLET BY MOUTH EVERY DAY 09/01 completed Not Available Not Available Not Available vit D3-folic acid-vit B2-B6-B12 2,000 unit-800 mcg-0.32 mg tablet 04/04 completed Not Available Not Available Not Available BD Insulin Syringe Ultra-Fine 1 mL 31 gauge x 5/16 USE BY SUBCUTANE OUS ROUTE EVERY BEDTIME active Not Available Not Available No t Available Belviq 10 mg tablet TAKE 1 TABLET BY MOUTH TWICE A DAY 09/01 completed Not Available Not Available Not Available Otezla 30 mg tablet Take 1 tablet twice a day by oral route. active Not Available Not Available No t Available Trulicity 1.5 mg/0.5 mL subcutaneo us pen injector INJECT 1.5MG UNDER THE SKIN EVERY WEEK active Not Available Not Available No t Available Trulicity 0.75 mg/0.5 mL subcutaneo us pen injector INJECT 0.75MG Q WEEK. SAME DAY Q WEEK. active Not Available Not Available No t Available FreeStyle Precision Matthew Strips TEST CUATRO VECES AL LA NENA active Not Available Not Available No t Available Humulin R U-500 (Conc) Insulin Kwikpen 500 unit/mL (3 mL) subcutaneo us INJECT 10 TO 35 UNITS THREE TIMES DAILY BEFORE MEALS PER SLIDING SCALE active Not Available Not Available No t Available baclofen 5 mg tablet TAKE 1 TABLET BY MOUTH THREE TIMES DAILY FOR 5 DAYS 04/17 completed Not Available Not Available Not Available Afluria Quad 8404-1315 (PF) 60 mcg (15 mcg x 4)/0.5 mL IM syringe active Not Available Not Available N ot Available FreeStyle Alexei 14 Day Vanderwagen FOR TESTING GLUCOSE LEVELS active Not Available Not Available No t Available FreeStyle Alexei 14 Day Sensor kit FOR TESTING GLUCOSE LEVELS active Not Available Not Available No t Available ID NOW COVID-19 Test Kit TEST DIRECTED active Not Available Not Available No t Available Trulicity 3 mg/0.5 mL subcutaneo us pen injector active Not Available Not Available Not Available Trulicity 4.5 mg/0.5 mL subcutaneo us pen injector active Not Available Not Available Not Available Vitals Date Recorded Body height Heart rate Body mass index (BMI) Body weight Systolic blood pressure Diastolic blood pressure Provider Name and Address Organization Details Last Updated DateTime 9 175.26 cm 95 /min 54.2 kg/m2 242015. 68 g 122 mm[Hg] 65 mm[Hg] Taryn Beasley MA - [facility] in [facility], 9 09:12:36 Date Recorded Body weight Body mass index (BMI) Body height Heart rate Systolic blood pressure Diastolic blood pressure Provider Name and Address Organization Details Last Updated DateTime 0 311752. 12 g 55 kg/m2 173.99 cm 110 /min 132 mm[Hg] 77 mm[Hg] Yashira Alonso MA - [facility] in [facility], 0 14:53:44 Date Recorded Body height Body temperature Body mass index (BMI) Body weight Heart rate Systolic blood pressure Diastolic blood pressure Provider Name and Address Organization Details Last Updated DateTime 1 173.99 cm 97.2 [degF] 58.6 kg/m2 908446. 34 g 104 /min 141 mm[Hg] 75 mm[Hg] Yashira Alonso MA - [facility] in [facility], 1 13:34:29 Date Recorded Body weight Body mass index (BMI) Body height Body temperature Heart rate Systolic blood pressure Diastolic blood pressure Provider Name and Address Organization Details Last Updated DateTime 2 699882. 19 g 54.3 kg/m2 172.72 cm 98.1 [degF] 93 /min 142 mm[Hg] 79 mm[Hg] Yashira Alonso MA - [facility] in [facility], 2 10:33:37 Date Recorded Body weight Heart rate Body mass index (BMI) Body height Systolic blood pressure Diastolic blood pressure Provider Name and Address Organization Details Last Updated DateTime 5 710794. 1769 g 103 /min 54.6 kg/m2 175.26 cm 119 mm[Hg] 71 mm[Hg] Yashira Alonso MA - [facility], 5 10:17:20 Social History Question Answer Notes LastModified by Organizat ion Details LastModified Time Tobacco Smoking Status Never [facility]oker Not Available [facility]07/2020 03:19:40 What Is Your Level Of Alcohol Consumption? None [id number] Information not available 06/07/2020 What Is Your Level Of Caffeine Consumption? Occasional [id number] Information not available 06/07/2020 In The 14 Days Before Symptom Onset, Have You Had Close Contact With A Laboratory-confir med COVID-19 While That Case Was Ill? No Information not available 04/04/2021 In The 14 Days Before Symptom Onset, Have You Had Close Contact With A Person Who Is Under Investigation For COVID-19 While That Person Was Ill? No Information not available 04/04/2021 Have You Been To An Area Known To Be High Risk For COVID-19? No Information not available 04/04/2021 Are You Currently Employed? Yes Information not available 04/04/2021 What Type Of Diet Are You Following? REGULAR [id number] Information not available 06/07/2020 Which Illicit Or Recreational Drugs Have You Used? None [id number] Information not available 06/07/2020 Do You Reside In Or Have You Traveled To An Area Where Ebola Virus Transmission Is Active? No [id number] Information not available 06/07/2020 Do You Or Have You Ever Used E-cigarettes Or Vape? Never Used Electronic Cigarettes [id number] Information not available 06/07/2020 Education Post Graduate Information not available 11/10/2012 What Is The Highest Grade Or Level Of School You Have Completed Or The Highest Degree You Have Received? [id number] Information not available 04/04/2021 Who Is Your Employer? [employer] 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 0 Information no t available 09/01/2018 Are There Any Guns Present In Your Home? No Information not available 04/04/2021 High Number Of Sexual Partners No Information not available 09/01/2018 To Which Gender Do You Self-identify? Female Information not available 09/01/2018 Marital Status Informatio n not available 11/10/2012 What Was The Date Of Your Most Recent Tobacco Screening? 04/04/2021 Information not available 04/04/2021 What Is Your Relationship Status? Information not available 04/04/2021 Are You Sexually Active? Yes [id number] Information not available 06/07/2020 Do You Or Have You Ever Used Smokeless Tobacco? Never Used Smokeless Tobacco [id number] Information not available 06/07/2020 How Much Tobacco Do You Smoke? No [id number] Information not available 06/07/2020 General Stress Level Medium Information not available 09/08/2019 Do You Feel Stressed (tense, Restless, Nervous, Or Anxious, Or Unable To Sleep At Night)? [id number] Information not available 04/04/2021 Do You Use Any Illicit Or Recreational Drugs? No Information not available 04/04/2021 Have You Recently (within The Last 12 Weeks, Or During A Current ) Traveled To Or Lived In A Zika-affected Area? No Information not available 09/01/2018 Do You Or Have You Ever Used Any Other Forms Of Tobacco Or Nicotine? No Information not available 04/04/2021 Sex: Female Functional Status Question Answer Note LastModified by Organization D etails LastModified Time What is your exercise level? None [id number] Information not available 06/07/2020 Mental Status None recorded. Family History Relationship Description Onset Age of this Age Resolved Age Notes LastModified by Organization Details LastModified Time Mother Diabetes mellitus previo usly record ed as Diabet es Not available 12/07/2014 10:23:46 Sister Diabetes mellitus previo usly record ed as Diabet es Not available 12/07/2014 10:23:46 Maternal Grandmother Diabetes mellitus previo usly record ed as Diabet es Not available 12/07/2014 10:23:46 Father Heart disease previo usly record ed as Heart Proble m Not available 12/07/2014 10:23:46 Father Hypertensive disorder previo usly record ed as Hypert ension Not available 12/07/2014 10:23:46 Notes:mother in jul 2020...natural causes. Medical History Condition Response Anesthesia complications N High Blood Pressure N Candidate for MyRisk panel N Kidney or Bladder Problems N Thyroid Problems N Depression Y Lung Disease N GI Problems Y Defects or Inherited Disease N Anemia N History of Ovarian Cancer N History of Breast Cancer N DON exposure N BRCA testing in past N Osteopenia N Psychiatric Illness N Anxiety Disorder Y Diabetes Y Arthritis N Headaches or Migraines Y Infertility Y Asthma Y History of Cancer N Endometriosis N Hepatitis N Heart Disease N Hypertension N Osteoporosis N Gynecological History Statement/Question Response Dysmenorrhea N Flow Light Frequency of Cycle (Q days) 30 Menses Monthly Y Duration of Flow (days) Age at Menarche 13 Current Control Method IUD Most Recent Mammogram 04/05/2020 Obstetrics History GPAL:G 0 P 0 0 0 0 Immunizations Vaccine Type Date Status Note Provider Nam e and Address Organization Details Recorded Time influenza nasal, unspecified formulation 2 completed Adriana Lara MD [address], [place], [address], [place] Orozco in [facility], 11/10/2012 13:43:51 Tdap 3 completed [place] Sexton in [facility], 12/11/2012 15:22:23 Influenza, split virus, quadrivalent, preservative 9 completed KEERTHI Sexton in [facility], 09/01/2018 09:26:24 COVID-19, mRNA, LNP-S, PF, 100 mcg/0.5mL dose or 50 mcg/0.25mL dose 1 completed [place] Ramos in [facility], 04/04/2021 13:38:30 Influenza, split virus, quadrivalent, preservative 1 completed [place]I Ramos in [facility], 04/17/2022 10:34:55 Past Encounters Encounter ID Performer Location Encounter Start Date Encounter Closed Date Diagnosis/Indication Diagnosis SNOMED-CT Code Diagnosis ICD10 Code Diagnosis Note [id number] Yashira LARA MD [address] [place] [id number] 11/10/2012 12:51:19 11/11/2012 08:37:47 [id number] MD ADRIANA Dickson MD [address] [place] [id number] 12/11/2012 15:08:24 12/12/2012 16:10:03 [id number] Taryn LARA MD [address] [place] [id number] 08/21/2013 13:33:26 08/21/2013 15:51:36 Pain in pelvis 19550985 Acute lowe r urinary tract infection 748522161 Glycosuria 50026367 [id number] Taryn Beasley ADRIANA LARA MD [address] [place] [address],[place] [id number] 11/13/2013 09:28:08 11/13/2013 13:10:39 Specialized medical examination [id number] ADRIANA LARA MD [address] [place] [address],[place] [id number] 12/07/2014 10:02:59 12/07/2014 13:34:46 Specialized medical examination 57047998 Venereal d isease screening 861170111 Oligoovula tory dysfunctional uterine bleeding [id number] MD ADRIANA Dickson MD [address] [place] [address],[place] [id number] 09/01/2018 09:04:26 09/01/2018 12:06:59 Specialized medical examination 63028955 Z01.419 Screening for malignant neoplasm of rectum 929267484 Z12.12 Screening mammography 24 936187 Z12.31 [id number] MD ADRIANA Dickson MD [address] [place] [address],[place] [address] 09/08/2019 14:46:50 09/08/2019 15:34:18 Specialized medical examination 76308272 Z01.419 Screening for malignant neoplasm of rectum 232145773 Z12.12 Screening mammography 24 682086 Z12.31 [id number] MD ADRIANA Dickson MD [address] [place] [address],[place] [id number] 04/04/2021 13:29:45 04/04/2021 14:48:20 Specialized medical examination 17573516 Z01.419 Screening for malignant neoplasm of rectum 405040226 Z12.12 Screening mammography 24 816775 Z12.31 [id number] MD ADRIANA Dickson MD [address] [place] [address],[place] [id number] 04/17/2022 10:28:03 04/17/2022 11:34:15 Specialized medical examination 49214491 Z01.419 Screening for malignant neoplasm of rectum 353711263 Z12.12 Screening mammography 24 416425 Z12.31 Health Concerns Section Related Observation LastModified by Organization Detai ls LastModified Time None Recorded Concern Status LastModified by Organization Details LastModified Time None Recorded Advance Directives Directive None Recorded Payers Encounter Date Sequence Insurance Name Policy Number Policy Fountain Covered Member ID Fountain Member ID Guarantor Name 12/07/2014 1 [facility] [id number] Glorymar López [id number] Glorymar López Colon 09/01/2018 1 [facility] [id number] Glorymar López [id number] Glorymar López Colon 09/08/2019 1 [facility] [id number] Glorymar López [id number] Glorymar López Colon 04/04/2021 1 [facility] [id number] Glorymar López [id number] Glorymar López Colon 04/17/2022 1 [facility] [id number] Glorymar López [id number] Glorymar López Colon Notes Date Note Type Note Provider Name and Address Organization Details Recorded Time 09/01/2018 text/html She is here for annual exam. She has not been here since 2014. She was seeing [facility] but they gave up on theat and put in a Mirena 2 years ago. No menses. Her diabetes has been Bad. In 07/2016 she started a process to do bariatric surgery at [facility]. She went through all the counseling ,etc, but things fell through the cracks. She is considering going back again. she had weighted more than 400 pounds last year, she lost some weight this past year with diet and exercise but still weighs 366 pounds today. _ note from 2014: She is here for annual exam. Her latest A1C was 10, in 06/18, the [facility] referred her to endocrinology in 06/18, she was given instructions for rescue insulin doses when her sugars are high, she is doing that now, she had an A1C drawn on 11/25/14 but has not received the results yet. Adriana Lara MD [address], [place], [address], [place] - [facility], 09/01/2018 10:08:27 09/08/2019 text/html She is here for annual exam, her weight is stable at 367 pounds. Her was in the ICU for 4 weeks due to sepsis, he is better now though. She had a Mirena placed 3 years ago, no menses. note form 2019: She is here for annual exam. She has not been here since 2014. She was seeing [facility] infertility but they gave up on theat and put in a Mirena 2 years ago. No menses. Her diabetes has been Bad. In 07/2016 she started a process to do bariatric surgery at [facility]. She went through all the counseling ,etc, but things fell through the cracks. She is considering going back again. she had weighted more than 400 pounds last year, she lost some weight this past year with diet and exercise but still weighs 366 pounds today. Adriana Lara MD [address], [place], [address], [place] - [facility], 09/08/2019 15:23:49 04/04/2021 text/html She is here for annual exam, weight is 391 pounds, BMI is 58.6. She had a Mirena inserted 08/2016. No menses. Her mother earlier this year due to natural causes, in [place], she is still grieving. She and her are , she wanted to go to couples counseling but he would only go in [place] and they could not find a [place] counselor. Note from 2020: She is here for annual exam, her weight is stable at 367 pounds. Her was in the ICU for 4 weeks due to sepsis, he is better now though. She had a Mirena placed 3 years ago, no menses. __ Note from 2019: She is here for annual exam. She has not been here since 2014. She was seeing [facility] infertility but they gave up on theat and put in a Mirena 2 years ago. No menses.Her diabetes has been Bad. In 07/2016 she started a process to do bariatric surgery at [facility]. She went through all the counseling ,etc, but things fell through the cracks. She is considering going back again. she had weighted more than 400 pounds last year, she lost some weight this past year with diet and exercise but still weighs 366 pounds today. Adriana Lara MD [address], [place], [address], [place] - [facility], 04/04/2021 14:00:40 04/17/2022 text/html Her weight is down to 357, with diet and exercise. She has bakc problems and will likely need surgery. No menses due to Mirena, placed in 08/2016, now good for 8 years. Note from 2020: She is here for annual exam, weight is 391 pounds, BMI is 58.6. She had a Mirena inserted 08/2016. No menses.Her mother earlier this year due to natural causes, in [place], she is still grieving.She and her are , she wanted to go to couples counseling but he would only go in [place] and they could not find a [place] speaking counselor. Adriana Lara MD [address], [place], [address], [place] - [facility], 04/17/2022 11:00:04 OBGyn Episode No OBEpisode recorded.
--- OUTSIDE RECORDS SUMMARY | 2024-09-01 08:27 | XMS_ITS ---
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 Role Phone Shiv Morgan Unavailable [phone] ALLERGIES, ADVERSE REACTIONS, ALERTS Substance Code Code System Type Reaction Severity Status Start Date End Date Penicillins RxNorm Drug allergy () 0 MEDICATIONS Medication Code Code System Start Date Stop Date Route Dosage Directions Fill Instructions atorvastatin calcium RxNorm 08/30/19 24 doxycycline hyclate 5748138 RxNorm 08/19/19 25 oral 1 albuterol sulfate 066045 RxNorm 08/19/19 25 inhalation 3 Zithromax 505703 RxNorm 5 oral 1 minoxidil RxNorm 4 benzonatate 943417 RxNorm 5 oral 1 lisinopril RxNorm 08/30/19 24 gabapentin RxNorm 03/17/20 24 fluoxetine HCl RxNorm 05/04/20 24 bupropion HCl RxNorm 05/04/20 24 Vyvanse RxNorm 04/14/20 24 Jardiance RxNorm 04/20/20 24 Tresiba FlexTouch U-200 RxNorm 024 Mounjaro RxNorm 04/20/20 24 PROBLEMS Problem Name Code Code System Start Date End Date Stat us Essential (primary) hypertension 21713111 [facility] Active Pure hypercholesterolemia, unspecified 30294271 [facility] Active Other specified diabetes mellitus 19834670 [facility] Active Depression, unspecified 03655713 [facility] Active Anxiety disorder, unspecified 50061474 [facility] Active Attention-deficit hyperactivity disorder, unspecified type 828235358 [facility] Active Pain, unspecified 63689478 [facility] Ac tive Pain, not elsewhere classified 87749843 [facility] Active Lateral epicondylitis, right elbow 722077019722844 [facility] 06/04/2024 Active Acute cough 90643209 [facility] 08/13/2024 Active Acute bronchitis, unspecified 65658684 [facility] 08/13/2024 Active Acute upper respiratory infection, unspecified 780960504 [facility] 08/19/2024 Activ e Nasal congestion 92194106 [facility] 08/19/2024 Act tanner Acute bronchospasm 81501056295478 [facility] 08/19/2024 Active Unspecified bacterial pneumonia 50219337 [facility] 08/19/2024 Active ENCOUNTERS Encounter Diagnosis Code Code System Date Stat us Nasal congestion 41496134 [facility] 08/13/2024 Active Acute cough 12536120 [facility] 08/13/2024 Active Acute bronchitis, unspecified 22590978 [facility] 08/13/19 Active IMMUNIZATIONS * None VITAL SIGNS Code Code System Vitals Name Date Value and Un its 8462-4 [facility] Blood Pressure-Diastolic 08/13/2024 83 mmHg 8480-6 [facility] Blood Pressure-Systolic 08/13/2024 1 25 mmHg 8867-4 [facility] Heart Rate 08/13/2024 106 /min 9279-1 [facility] Respiratory Rate 08/13/2024 18 /min 8310-5 [facility] Body Temperature 08/13/2024 98.3 F 23275-4 [facility] Oxygen Saturation 08/13/2024 98 % SOCIAL HISTORY * None PROCEDURES * None MEDICAL EQUIPMENT * Patient has no history of implantable devices ASSESSMENT * None TREATMENT PLAN Type Description Date MEDICATION Take 250 mg tablet 08/13/2024 MEDICATION Take 100 mg capsule 08/13/2024 APPOINTMENT If not feeling smita r in 3 day(s), please see your primary care physician. If you do not have a primary care physician, please return to this clinic. 08/13/2024 Lab Tests None GOALS * None HEALTH CONCERNS * No Health Concerns FUNCTIONAL AND COGNITIVE STATUS * None CONSULTATION NOTES * None DISCHARGE SUMMARY NOTES * None HISTORY AND PHYSICAL NOTES * Reason for visit - Illness Patient: HENNY HAYES, Sex: F (ID# [id number]) Date of : 1975 (49 years) Visit on 08/13/2024 (Log# [id number]) Historian: Self History of Present Illness: Complaint: The patient presents with a chief complaint of constant (but worse at times) cough of the chest since 9 days ago. It has the following quality: productive of sputum. Context - Initial History: The patient reports it was not the result of an injury. The patient alsoreports congestion, nasal discharge, and nasal congestion as abnormal symptoms related to the complaint. Review of Systems: The patient complains of the following recent symptoms: ENT and Mouth: nasal congestion nasal discharge Respiratory: congestion cough: See HPI Allergies: Penicillins: Drug allergy. Medications: atorvastatin calcium: atorvastatin calcium 40 mg tablet; Total Qty: 90 (ninety) Tablet; 0 refill(s); LACI; minoxidil: minoxidil 2.5 mg tablet; Total Qty: 90 (ninety) Tablet; 0 refill(s); LACI; lisinopril: lisinopril 10 mg tablet; Total Qty: 90 (ninety) Each; 0 refill(s); LACI; gabapentin: gabapentin 300 mg capsule; Total Qty: 90 (ninety) Capsule; 0 refill(s); LACI; fluoxetine HCl: fluoxetine HCl 20 mg capsule; Total Qty: 90 (ninety) Each; 0 refill(s); LACI; bupropion HCl: bupropion HCl 300 mg Tablet, Extended Release 24 hr; Total Qty: 90 (ninety) Each; 0 refill(s); LACI; Vyvanse: Vyvanse 70 mg capsule; Total Qty: 60 (sixty) Capsule; 0 refill(s); LACI; Jardiance: Jardiance 10 mg tablet; Total Qty: 30 (thirty) Tablet; 0 refill(s); LACI; Tresiba FlexTouch U-200: Tresiba FlexTouch U-200 200 unit/mL (3 mL) Insulin Pen; Total Qty: 9 (nine) Milliliter; 0 refill(s); LACI; Mounjaro: Mounjaro 5 mg/0.5 mL Pen Injector; Total Qty: 2 (two) Milliliter; 0 refill(s); LACI; Problem List: Essential (primary) hypertension (status Active) Pure hypercholesterolemia, unspecified (status Active) Other specified diabetes mellitus (status Active) Depression, unspecified (status Active) Anxiety disorder, unspecified (status Active) Attention-deficit hyperactivity disorder, unspecified type (status Active) Pain, unspecified (status Active) Pain, not elsewhere classified (status Active) Lateral epicondylitis, right elbow (status Active) Surgeries: patient specifies no surgeries Social History: Tobacco Use: denies Alcohol: denies Street / Unprescribed Drugs: denies Vitals: 05:12 PM (08/13/2024)Temperature: 98.3 ?F, Pulse: 106 BPM, BP: 125/83, Respirations: 18/min, O2 Saturation: 98%, O2 Delivery: RAFirst entered 08/13/2024 17:12 by Eliceo Davis Physical Exam: The following exam elements were documented to be abnormal: Respiratory: abnormal breath sounds on auscultation. Lung sounds: normal volume of breath sounds, vesicular breath sounds, no rales, rhonchi noted, mildrhonchi, diffusely over bilateral lung osborne, no rubs, no wheezing. The following exam elements were documented to be normal: Cardiovascular: S1, S2 noted, normal rate, regular rhythm, and no murmurs, rubs, gallop, or extra heart sounds. ENT: tympanic membranes normal bilaterally. ENT: oropharynx and tonsils without swelling, erythema, lesion, exudate. General: well developed, well nourished, and in no apparent distress. Lymph: no cervical lymphadenopathy. Respiratory: breathing effort and rate are grossly normal, speaks in full sentences. Respiratory: no increased work of breathing. Diagnoses: Nasal congestion (R09.81) Acute cough (R05.1) Acute bronchitis, unspecified (J20.9) Medication Orders: Prescribed: Zithromax 250 mg tablet; Take 1 tablet (oral) as directed on dose pack; Total Qty: 6 (six) tablet; 0 refill(s); Substitutions allowed; Earliest Fill Date: 08/13/2024ePrescribed at 5:20 PMon 08/13/2024 by IDALMIS Robledo-CPrescription sent to [facility]/pharmacy #[id number] (P: [phone] F: [phone]) [address] [place] [address], [address] Prescribed: benzonatate 100 mg capsule; Take 1 capsule (oral) 3 times per day for 7 days (PRN - Cough); Total Qty: 21 (twenty-one) capsule; 0 refill(s); Substitutions allowed; Earliest Fill Date: 08/13/2024ePrescribed at 5:20 PM on 08/13/2024 by CHANTALE RobledoCPrescription sent to [facility]/pharmacy #[id number] (P: [phone] F: [phone]) [address] [place], [address] Discharge Instructions: Nonallergic Rhinitis Cough, Adult Acute Bronchitis, Adult Plan: If not feeling better in 3 day(s), please see your primary care physician. If you do not have a primary care physician, please return to this clinic. Patient Fit for duty without restrictions. Visit discharged at 08/13/2024 5:21:30 PM by Shiv Morgan PA-C Signed electronically by Shiv Morgan PA-C on 08/13/2024 5:21:30 PM IMAGING NOTES * None LABORATORY REPORT NARRATIVE NOTES * None PATHOLOGY REPORT NARRATIVE NOTES * None PROGRESS NOTES * None
--- OUTSIDE RECORDS SUMMARY | 2024-09-01 08:27 | XMS_ITS | Data Portability ---
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 PLAN: I discussed the treatment options with the patient includin. Living with the symptoms. 2. Continued non-operative management. 3. Surgical intervention. I had a nice discussion with the patient today. I reviewed the diagnosis and prognosis of lateral epicondylitis (AKA Tennis Elbow). I explained that the first-line treatment of lateral epicondylitis is appropriate physiotherapy including epicondylar muscle strengthening exercises, mobilization, stretching, and deep friction massage. I provided the patient with a handout demonstrate these exercises. I would ask that these exercises are done at least five times per day. I am recommending prescription strength NSAID therapy to decrease the pain and inflammation associated with this condition. A prescription was sent today for Meloxicam 15 mg daily for 30 days with 2 refills. If further anti-inflammatory medication is desired, I encouraged the patient to discuss this with their primary care provider. The patient was educated today on proper use of pain medications, including alternating anti? ? ? inflammatories with antipyretics for synergistic pain relief as needed, in addition to medication limits and taking medications with food to avoid GI upset. the patient confirmed that they will discontinue taking the medication immediately if they experience any side effect and will inform the office as well. I am also recommending a prescription for outpatient physical or occupational therapy for this condition. This prescription was provided today. If first-line treatment with physiotherapy, NSAIDs, and bracing fails, a PRP injection can be considered but does incur an out of pocket expense to the patient. I explained the process by which this is done. Current evidence and my personal experience dictates that corticosteroid injections should not be used for this diagnosis as significant rebound pain and worse 1 year outcomes are a known problem with corticosteroids for lateral epicondylitis. I also explained that the natural history studies show that most cases of lateral epicondylitis resolve within 1 to 2 years if left alone entirely. In my practice, I will only offer surgery if no improvement or if symptoms worsen after 6 months to 1 year of appropriate and dedicated nonoperative treatment course exhausting therapy, tennis elbow counterforce bracing, NSAIDs, and PRP injections. I did also explain that there is some uncertainty regarding the efficacy of the surgical procedures and that there are significant risks that must be considered with any surgery. The patient demonstrated excellent understanding of this and stated that they were in agreement with the treatment plan as outlined above. I also provided them with a packet of written information on the diagnosis, prognosis, and management of this pathology. The patient may return to see me in clinic in 3 months for repeat clinical evaluation. At the conclusion of the office visit, the patient verbally acknowledged that I answered all questions satisfactorily. Thank you for this consultation ? ? ? Not available 06/18/2024 14:12:59 07/07/2024 07/07/2024 49-year-old fema le with left hip pain. History, examination and x-rays are consistent with osteoarthritis. After discussion regarding treatment options she declines the offer of physical therapy but wishes to trial an intra-articular injection of cortisone. She will be referred to interventional radiology for said injection. Follow-up in 4 months. Follow-up sooner if she fails to get satisfactory relief from this injection. If she gets no relief at all I will recommend an MRI to evaluate for avascular necrosis. This patient was seen and evaluated by Radha Gonzalez MS, PA-C in indirect conjunction with [facility] provider Clark Andino MD. He agrees with history, physical examination, tests/diagnostic imaging, and treatment plan. This document was generated using voice recognition software. As a result, there may be unintended spelling, grammatical and/or textual errors. Not available 07/07/2024 11:07:22 Plan of Treatment Reminders Order Date Submit Date Provider Last Modified By Organization Details Last Modified Time Details Appointments FOLLOW UP 2024 08:30A M Humble Avina MD Not available Not available Not available FOLLOW UP 2024 11:15A M RADHA GONZALEZ PA-C Not available Not available Not available Lab None recorded. 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 2023 024 [email or web address] Not available 06/18/2024 14:29:59 Procedures injection , hip, fluoro guidance (PROC) - Hip Cortisone Injection , Fluorosco py guided, please contact patient directly to scheduleD iagnosis: Left hip pain.Ultr asound or x-ray guided intra-art icular injection of steroid and short and/or long-acti ng anestheti c to femoral-a cetabular joint.P lease document pre and post procedure pain levels (0-10 scale). 2023 024 [email or web address] [facility], [address], [address], [place], [address], 08/13/2024 15:48:51 Surgeries None recorded. Imaging XR, elbow, 3 or more view 2023 024 [facility], [address], [address], [place], [address], 06/19/2024 16:54:16 XR, hip, unilatera l, 2 or 3 view 2023 024 [email or web address] [facility], [address], [address], [place], [address], 07/07/2024 11:51:40 Medication Orders meloxicam 15 mg tablet 2023 024 [facility], [address] [place] [address], [place], [address], 06/18/2024 14:11:51 Patient TargetsNo targets recorded. Patient Instructions Encounter Date Encounter Id Patient Instructions Last Modified By Organization Details Last Modified Time 06/18/2024 [id number] tennis elbow: exercises Not available 06/18/2024 14:11:37 Imaging: {{RIGHT* LEFT}} elbow three view radiographs including AP, oblique, and lateral views were ordered by me, obtained today, reviewed with the patient, and independently interpreted by me as demonstrating a concentrically reduced ulnohumeral joint and radiocapitellar joint without any evidence of fracture, dislocation, arthritis, calcification, joint effusion, or other acute osseous abnormalities. Essentially normal radiographic series of the {{RIGHT* LEFT}} elbow. Not available 06/18/2024 13:55:08 07/07/2024 [id number] {{2 3 4* 5 6 7 8 9} } view X-ray study obtained during today's office encounter show evidence of {{mild* moderate se pearl}} {{right left* bilat eral}} {{hip* knee}} osteoarthritis. There is joint space narrowing, subchondral sclerosis and marginal osteophytosis. Kellgren-Richi grade {{0 1 2* 3 4}}. No evidence of acute fracture or osteolytic findings. 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 Referring Physician: Oscar Avina, Orthopedic Surgery, Encounter Date: 06/18/2024 Problems Name Problem SNOMED Code Status Onset Date Resolution Date Notes Provider Name and Address Organization Details Recorded Time Lateral epicondyli tis 402782230 Active 2023 Oscar Avina MD [address], [place], [address] , [place] [facility] 14:10:53 Lateral epicondyli tis 678388166 Active 2023 Oscar Avina MD [address], [place], [address] , [place] [facility] 4 14:11:09 Osteoarthr itis of left hip joint 0133703272745 08 Active 2023 RADHA GONZALEZ PA-C [address], [place], [address] , [place] [facility] 4 11:06:02 Problem Notes None recorded. Medical Equipment None Reported. Medications Name Sig Start Date Stop Date Status Note LastModified by Organization Details LastModified Time vitamin d3 125 mcg (5000 ut) caps active Not Available Not Available Not Available vitamin d3 5,000 unit softg active Not Available Not Available Not Available b-1 100 mg tabs active Not Available Not Available Not Available atorvastatin 40 mg tablet active Not Available Not Available Not Available clindamycin HCl 300 mg capsule TAKE 1 CAPSULE BY MOUTH EVERY 6 HOURS UNTIL GONE active Not Available Not Available No t Available ibuprofen 800 mg tablet TAKE 1 TABLET BY MOUTH EVERY 6 HOURS FOR PAIN active Not Available Not Available No t Available meloxicam 15 mg tablet Take 1 tablet every day by oral route. 2023 active Not Available Not Available Not Avai lable minoxidil 2.5 mg tablet active Not Available Not Available No t Available vitamin A 3,000 mcg (10,000 unit) capsule active Not Available Not Available Not Available lisinopril 10 mg tablet active Not Available Not Available No t Available gabapentin 300 mg capsule active Not Available Not Available N ot Available fluoxetine 20 mg capsule active Not Available Not Available N ot Available dextroamphetam ine-amphetamin e ER 25 mg 24hr capsule,extend release active Not Available Not Available Not Available bupropion HCl XL 300 mg 24 hr tablet, extended release active Not Available Not Available Not Available Vyvanse 70 mg capsule active Not Available Not Available Not Available Jardiance 10 mg tablet active Not Available Not Available No t Available Tresiba FlexTouch U-200 insulin 200 unit/mL (3 mL) subcutaneous pen active Not Available Not Available Not Available Humulin R U-500 (Conc) Insulin Kwikpen 500 unit/mL (3 mL) subcutaneous active Not Available Not Available Not Available Trulicity 4.5 mg/0.5 mL subcutaneous pen injector active Not Available Not Available Not Available Mounjaro 7.5 mg/0.5 mL subcutaneous pen injector active Not Available Not Available Not Available Mounjaro 5 mg/0.5 mL subcutaneous pen injector active Not Available Not Available Not Available FreeStyle Alexei 3 Sensor device active Not Available Not Available Not Available Vitals None Recorded Social History None recorded. Functional Status None recorded. Mental Status None recorded. Family History Nothing Reported. Medical History No medical history recorded. Gynecological HistoryNo gynecological history recorded. Obstetrics History GPAL:G 0 P 0 0 0 0 Past Encounters Encounter ID Performer Location Encounter Start Date Encounter Closed Date Diagnosis/Indication Diagnosis SNOMED-CT Code Diagnosis ICD10 Code Diagnosis Note [id number] Oscar Avina MD [facility] [address] [facility] [place] [address] 06/18/2024 13:20:00 06/18/2024 14:16:30 Pain in elbow 54519262 M25.521 Lateral epicondylitis 20 6385179 M77.10 [id number] Clark Andino MD [facility] [address] [place] [address] 07/07/2024 10:17:23 07/07/2024 11:04:15 Hip pain 68290222 M25.552 Osteoarthr itis of left hip joint 0546731148 50967 M16.12 Health Concerns Section Related Observation LastModified by Organization Detai ls LastModified Time None Recorded Concern Status LastModified by Organization Details LastModified Time None Recorded Advance Directives Directive None Recorded Payers Encounter Date Sequence Insurance Name Policy Number Policy Fountain Covered Member ID Fountain Member ID Guarantor Name 06/18/2024 1 [employer] [id number] Glorymar López Colon [id number] Glorymar López-Col on 07/07/2024 1 [employer] [id number] Glorymar López Colon [id number] Glorymar López-Col on Notes Date Note Type Note Provider Name and Address Organization Details Recorded Time 06/18/2024 text/html Patient is a 49-year-old woman presenting with 1 month history of worsening right lateral elbow pain. She is previously seen by an outside urgent care was told she had tendinitis. She was primarily with off work in terms of treatment she has done topical lidocaine, topical diclofenac as well as ibuprofen with mild relief. She also has a band has been doing home exercises. She presents for evaluation regarding lateral condyle lightest and lateral pain. 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 She is nsmhc-arxa-frccdyxl . Oscar Avina MD [address], [place], [address], [place] [facility] 06/18/2024 14:13:14 07/07/2024 text/html 49-year-old fema le with chief complaint of left hip pain. She reports the onset of her symptoms nearly 1 year ago. There was no specific injury accident or trauma though she does report an incidental fall. She localizes her pain to the groin. This is the first that she is having it formally evaluated by orthopedics. She has known arthritis of the knees and has undergone cortisone injections to them in the past. She has an ongoing lateral epicondylitis for which she is taking meloxicam. She states that that is ineffective at treating her left hip pain. She states that she is recently incapable of crossing her legs and has difficulty getting socks and shoes on and off such that she has been wearing slide on footwear. There is no involvement of the midline of her lumbar spine nor any pain that radiates down the leg. RADHA GONZALEZ PA-C [address], [place], [address], [place] [facility] 07/07/2024 11:07:40 OBGyn Episode No OBEpisode recorded.
--- OUTSIDE RECORDS SUMMARY | 2024-09-01 08:28 | XMS_ITS | Clinical Summary ---
Author Organization [facility] Address [address] [place] [address] Care Team Providers Care Center Consultant Name Role Phone Braulio Lopez MD Primary Care Provider [phone] Allergies Active Allergy Reactions Criticality Noted Date Comments Penicillins 06/21/2015 Other reaction(s): ?reaction Medications Medication Sig Dispensed Refills Start Date End Date Status HUMALOG KWIKPEN 100 UNIT/ML injection 0 06/08/2015 Active LANTUS SOLOSTAR 100 UNIT/ML injection 0 06/08/2015 Active ADDERALL XR, 20MG, 20 MG 24 hr capsule 0 04/28/2015 Activ e insulin aspart (NovoLOG FLEXPEN) injection 100 units/mL Inject under the skin. 0 Active metFORMIN (GLUCOPHAGE) tablet 500 mg Take by mouth. 0 Active LORazepam (ATIVAN) 1 MG tablet Take by mouth. 0 Active buPROPion (WELLBUTRIN XL) 150 MG 24 hr tablet Take by mouth. 0 Activ e Lorcaserin HCl (BELVIQ) 10 MG TABS Take by mouth. 0 12/09/2014 A ctive clobetasol (TEMOVATE) 0.05 % cream Apply topically 2 (two) times a day. 60 g 1 06/21/2015 Active Otezla 30 MG TABS 0 11/22/2021 Active atorvastatin (LIPITOR) tablet 20 mg Take 1 tablet by mouth every night at bedtime. 0 03/03/2014 Active glucose monitoring kit (FREESTYLE) monitoring kit Use to check blood sugar 4 times a day.DX-250.00 0 02/15/2014 Active Cholecalciferol 75 MCG (3000 UT) TABS Take by mouth. 0 Ac tive Continuous Blood Gluc Sensor (FreeStyle Alexei 14 Day Sensor) MISC 0 10/19/2021 Active diphenoxylate-atropi ne (LOMOTIL) 2.5-0.025 MG per tablet Take 1 tablet by mouth. 0 02/15/2014 Active Trulicity 1.5 MG/0.5ML subcutaneous pen-injector 0 10/19/2021 Active fluticasone (FLONASE) 50 MCG/ACT nasal spray spray or apply 50 mcg inside Nose. 0 12/11/2012 Active glucose blood (FREESTYLE LITE) test strip Use to test blood sugar 4 times a day.DX-250.00 0 12/30/2013 Active Lancets (freestyle) lancets Use to test blood sugar 4 times a day.DX-250.00 0 12/30/2013 Active omeprazole (PriLOSEC) 20 MG capsule Take 1 capsule by mouth daily. 0 11/11/2012 Active ondansetron (ZOFRAN) 4 MG tablet Take 4 mg by mouth. 0 02/15/2014 Acti ve triamcinolone (KENALOG) 0.1 % cream Triamcinolone 0.1% cream 80gms with Cerave cream. Apply daily from neck down after showers. Not to be used on the face. 0 08/21/2013 Active HumuLIN R U-500 KWIKPEN 500 UNIT/ML SOPN 0 01/15/2022 Active FLUoxetine (PROzac) 10 MG capsule Take 10 mg by mouth daily. 0 Active baclofen (LIORESAL) 5 MG tablet TAKE 1 TABLET BY MOUTH THREE TIMES DAILY FOR 5 DAYS 0 01/17/2022 Active Blood Pressure Monitoring (Omron 3 Series BP Monitor) JUAN Check blood pressure on arm as directed ONCE DAILY 0 01/15/2022 Active cyclobenzaprine (FLEXERIL) 10 MG tablet Take 10 mg by mouth 3 (three) times a day. 0 02/01/2022 Active folic acid (FOLVITE) tablet 1 mg Take 1,000 mcg by mouth. 0 06/10/2014 Active ibuprofen 800 MG tablet Take 800 mg by mouth. 0 09/05/2017 Active levonorgestrel (MIRENA) 20 MCG/DAY IUD 52 mg by Intrauterine route. 0 07/18/2016 Active lisinopril (PRINIVIL,ZESTRIL) tablet 10 mg Take 10 mg by mouth. 0 05/17/2016 Ac tive Melatonin 5 MG TABS Take 10 mg by mouth. 0 06/10/2014 Active gabapentin (NEURONTIN) 300 MG capsule TOME 1 CAPSULA JANNIE VECES AL LA NENA 0 02/20/2022 Active Active Problems Problem Noted Date Diagnosed Date Lumbar radiculopathy 03/20/2022 Spinal stenosis of lumbar re gion with neurogenic claudication 03/12/2022 History of diabetes mellitus 03/12/2022 Left leg weakness 03/12/2022 Family History Medical History Relation Name Comments Arthritis Father Heart disease Father Hyperlipidemia Father Hypertension Father Arthritis Mother Cancer Mother Diabetes Mother Heart disease Mother Hyperlipidemia Mother Hypertension Mother Blood Clots Sister Clotting disorder Sister Diabetes Sister Heart disease Sister Hypertension Sister Relation Name Status Comments Father Mother Sister Social History Tobacco Use Types Packs/Day Years Used Date Smoking Tobacco: Never Smokeless Tobacco: Never Alcohol Use Standard Drinks/Week Comments No 0 (1 standard drink = 0.6 oz pur e alcohol) Sex and Gender Information Value Date Recorded Sex Assigned at Female 12/07/2021 3:54 PM EDT Gender Identity Female 12/07/2021 3:54 PM EDT Sexual Orientation Not on file Job Start Date Occupation Industry Not on file Not on file Not on file Last Filed Vital Signs Vital Sign Reading Time Taken Comments Blood Pressure 139/86 03/20/2022 1:14 PM EDT Pulse 112 03/20/2022 1:14 PM EDT Temperature 36.8 ??C (98.2 ??F) 03/20/2022 1:14 PM ED T Respiratory Rate 13 06/21/2015 9:06 AM EST Oxygen Saturation 97% 03/20/2022 1:14 PM EDT Inhaled Oxygen Concentration - - Weight 168.7 kg (372 lb) 03/20/2022 1:14 PM EDT Height 175.3 cm (5' 9 ) 03/20/2022 1:14 PM EDT Body Mass Index 54.93 03/20/2022 1:14 PM EDT Plan of Treatment Health Maintenance Due Date Last Done Comments Hepatitis B Vaccines (1 of 3 - 3-dose series) 1975 Hepatitis C Screening 1975 COVID-19 Vaccine (#1) 1976 Depression Screening 1988 BMI Counseling 1994 Preventative Health Evaluation 1994 Cervical Cancer Screening (P ap Smear) 1997 Colon Cancer Screening (Colonoscopy) 2021 DTap / Tdap / Td (2 - Td or Tdap) 12/11/2022 013 Influenza Vaccine (#1) 2024 Pneumococcal Vaccine Aged Out No long er eligible based on patient's age to complete this topic RSV Ped < 20 months Aged Out No longe r eligible based on patient's age to complete this topic Care Teams Center Consultant Relationship Specialty Start Date End Date Braulio Lopez MD [address] [place] [id number] PCP - General Internal Medicine 03/20/22
--- OUTSIDE RECORDS SUMMARY | 2024-09-01 08:28 | XMS_ITS | Encounter Summary ---
Author Organization [facility] Address [address] [place] [address] [address] [address] Care Team Providers Care Yardage Control Operator Name Role Phone Braulio Carbajal MD Primary Care Prov ider Reason for Visit * Reason Comments Med Refill Encounter Details Date Type Department Care Team (Late st Contact Info) Description 10/29/2022 Refill [facility] [address], [place] [id number] Braulio Carbajal MD [address] [place] [address] Social History Tobacco Use Types Packs/Day Years Used Date Smoking Tobacco: Never Passive Smoke Exposure: Never Smokeless Tobacco: Never Alcohol Use Standard Drinks/Week Comments Never 0 (1 standard drink = 0.6 oz pur e alcohol) Comments Unknown Sex and Gender Information Value Date Recorded Sex Assigned at Female 06/04/2022 10:29 AM EDT Legal Sex Female 10:29 AM EDT Gender Identity Female 06/04/2022 10:29 AM EDT Sexual Orientation Straight 06/04/2022 10 :29 AM EDT documented as of this encounter Plan of Treatment Not on file documented as of this encounter Visit Diagnoses Not on filedocumented in this encounter Care Teams Yardage Control Operator Relationship Specialty Start Date End Date Braulio Carbajal MD [address] [place] [address] PCP - General Internal Medicine 12/14/19 04/28/24 documented as of this encounter
--- OUTSIDE RECORDS SUMMARY | 2024-09-01 08:28 | XMS_ITS | Encounter Summary ---
Author Organization [facility] Address [address] [place] [address] Care Team Providers Care Pharmacy Technology Instructor Name Role Phone Braulio Carbajal MD Primary Care Prov ider Reason for Visit * Reason Onset Date Comments Med Refill 02/28/2023 Encounter Details Date Type Department Care Team ([facility] st Contact Info) Description 02/28/2023 Refill [facility] [address] [place] [address] Braulio Carbajal MD [address] [place] [address] Social History Tobacco Use Types Packs/Day Years [...] on filedocumented in this encounter Care Teams Pharmacy Technology Instructor Relationship Specialty Start Date End Date Braulio Carbajal MD [address] [place] [address] PCP - General Internal Medicine 12/14/19 04/28/24 documented as of this encounter
--- OUTSIDE RECORDS SUMMARY | 2024-09-01 08:28 | XMS_ITS | Clinical Summary ---
Author Organization [facility] Address [address] [place] [address] Care Team Providers Care Switchman Supervisor Name Role Phone Braulio Lopez Primary Care Provider [phone] Allergies Active Allergy Reactions Criticality Noted Date Comments Penicillins 06/21/2015 Other reaction(s): ?reaction Other reaction(s): ?reaction Medications amphetamine-dextr oamphetamine XR (Adderall XR) 20 MG 24 hr capsule Take 40 mg by mouth 1 (one) time each day in the morning 6 Active atorvastatin (LIPITOR) 40 MG tablet Take 40 mg by mouth 1 (one) time each day 2 Active FLUoxetine (PROzac) 20 MG tablet Take 20 mg by mouth 1 (one) time each day 0 Active insulin regular (HumuLIN R) 500 UNIT/ML CONCENTRATED injection Inject 60 Units under the skin twice a day 6 Active lisinopril 10 MG tablet Take 10 mg by mouth 1 (one) time each day 2 Active LORazepam (ATIVAN) 1 MG tablet Take 1 mg by mouth 3 (three) times a day if needed 2 Active Trulicity 4.5 MG/0.5ML solution pen-injector Inject 4.5 mg under the skin every 7 (seven) days 2 Active buPROPion XL (WELLBUTRIN XL) 150 MG 24 hr tablet Take 150 mg by mouth 1 (one) time each day 5 Active gabapentin (NEURONTIN) 300 MG capsule Take 300 mg by mouth in the morning and 300 mg in the evening and 300 mg before bedtime. Active Otezla 30 MG tablet Take 30 mg by mouth twice a day Active Active Problems Problem Noted Date Diagnosed Date Obstructive sleep apnea syndrome 06/30/2023 Intrauterine contraceptive device in situ 2021 Pseudohyponatremia 04/26/2022 Hypertension 04/24/2022 Psoriasis 04/24/2022 Diabetes mellitus, not otherwise specified 04/24 Proteinuria, not otherwise specified 04/24/2022 Spinal stenosis of lumbar re gion with neurogenic claudication 03/12/2022 06/30/2023 Social History Tobacco Use Types Packs/Day Years Used Date Smoking Tobacco: Never Smokeless Tobacco: Never Tobacco Cessation:Counseling Given: Not Answered Alcohol Use Standard Drinks/Week Comments Never 0 (1 standard drink = 0.6 oz pur e alcohol) Comments Unknown Sex and Gender Information Value Date Recorded Sex Assigned at Not on file Legal Sex Female 2:52 PM EDT Gender Identity Not on file Sexual Orientation Not on file Last Filed Vital Signs Vital Sign Reading Time Taken Comments Blood Pressure 116/76 04/26/2022 8:01 AM EDT Pulse 112 04/26/2022 8:01 AM EDT Temperature - - Respiratory Rate - - Oxygen Saturation 96% 04/26/2022 8:01 AM EDT Inhaled Oxygen Concentration - - Weight 164 kg (361 lb 3.2 oz) 04/26/2022 8:01 AM EDT Height 175.3 cm (5' 9 ) 04/26/2022 8:01 AM EDT Body Mass Index 53.34 04/26/2022 8:01 AM EDT Plan of Treatment Health Maintenance Due Date Last Done Comments Hepatitis B Vaccine (1 of 3 - 19+ 3-dose series) 1995 Diabetes: Hemoglobin A1C 02/01/2022 Diabetes: Ophthalmology Exam 02/01/2022 Diabetes: Pedal Pulse Checked 02/01/2022 Diabetes: Sensory Foot Exam 02/01/2022 Diabetes: Visual Foot Exam 02/01/2022 Influenza Vaccine (#1) 2024 Pneumococcal Vaccine: Pediat rics (0 to 5 Years) and At-Risk Patients (6 to 64 Years) Aged Out No longer eligible b ased on patient's age to complete this topic Care Teams Switchman Supervisor Relationship Specialty Start Date End Date Braulio Lopez PCP - General Internal Medicine 02/01/22
--- OUTSIDE RECORDS SUMMARY | 2024-09-01 08:29 | XMS_ITS ---
Author Organization [facility] Address [address] [place] [address] Care Team Providers Care High School Mathematics Teacher Name Role Phone Shiv Morgan Unavailable [phone] ALLERGIES, ADVERSE REACTIONS, ALERTS Substance Code Code System Type Reaction Severity Status Start Date End Date Penicillins RxNorm Drug allergy () 0 MEDICATIONS Medication Code Code System Start Date Stop Date Route Dosage Directions Fill Instructions atorvastatin calcium RxNorm 08/30/19 24 doxycycline hyclate 2865725 RxNorm 08/19/19 25 oral 1 albuterol sulfate 535629 RxNorm 08/19/19 25 inhalation 3 Zithromax 964260 RxNorm 5 oral 1 minoxidil RxNorm 4 benzonatate 870725 RxNorm 5 oral 1 lisinopril RxNorm 08/30/19 24 gabapentin RxNorm 03/17/20 24 fluoxetine HCl RxNorm 05/04/20 24 bupropion HCl RxNorm 05/04/20 24 Vyvanse RxNorm 04/14/20 24 Jardiance RxNorm 04/20/20 24 Tresiba FlexTouch U-200 RxNorm 024 Mounjaro RxNorm 04/20/20 24 PROBLEMS Problem Name Code Code System Start Date End Date Stat us Essential (primary) hypertension 89012811 [facility] Active Pure hypercholesterolemia, unspecified 45611138 [facility] Active Other specified diabetes mellitus 52518112 [facility] Active Depression, unspecified 75138151 [facility] Active Anxiety disorder, unspecified 86893858 [facility] Active Attention-deficit hyperactivity disorder, unspecified type 761013104 [facility] Active Pain, unspecified 24810929 [facility] Ac tive Pain, not elsewhere classified 58882634 [facility] Active Lateral epicondylitis, right elbow 043947895161765 [facility] 06/04/2024 Active Acute cough 07635542 [facility] 08/13/2024 Active Acute bronchitis, unspecified 21252484 [facility] 08/13/2024 Active Acute upper respiratory infection, unspecified 083491905 [facility] 08/19/2024 Activ e Nasal congestion 78002018 [facility] 08/19/2024 Act tanner Acute bronchospasm 40062070490684 [facility] 08/19/2024 Active Unspecified bacterial [facility] 43709741 [facility] Active ENCOUNTERS Encounter Diagnosis Code Code System Date Stat us Acute upper respiratory infe ction, unspecified 791488627 [facility] 08/19/2024 Active Nasal congestion 23009805 [facility] 08/19/2024 [facility] Ac tive Unspecified bacterial pneumonia 47691947 [facility] Active IMMUNIZATIONS * None VITAL SIGNS Code Code System Vitals Name Date Value and Un its 8462-4 [facility] Blood Pressure-Diastolic 08/19/2024 73 mmHg 8480-6 [facility] Blood Pressure-Systolic 08/19/2024 1 07 mmHg 8867-4 [facility] Heart Rate 08/19/2024 103 /min 9279-1 [facility] Respiratory Rate 08/19/2024 20 /min 8310-5 [facility] Body Temperature 08/19/2024 97.7 F 41482-4 [facility] Oxygen Saturation 08/19/2024 96 % SOCIAL HISTORY * None PROCEDURES * None RESULTS Test Code Code System Description Result Value Date Ref erence Range [facility] RSV negative 08/19/2024 negative MEDICAL EQUIPMENT * Patient has no history of implantable devices ASSESSMENT * None TREATMENT PLAN Type Description Date MEDICATION Take 2.5 mg /3 mL (0.083 %) Solu tion for Nebulization 08/19/2024 MEDICATION Take 100 mg capsule 08/19/2024 APPOINTMENT If not feeling smita r in 3 day(s), please see your primary care physician. If you do not have a primary care physician, please return to this clinic. 08/19/2024 Labs Tests Test Name Code Code System Date Nakia 2 RSV Antigen IRINA 29193 CPT 08/19 GOALS * None HEALTH CONCERNS * No Health Concerns FUNCTIONAL AND COGNITIVE STATUS * None CONSULTATION NOTES * None DISCHARGE SUMMARY NOTES * None HISTORY AND PHYSICAL NOTES * Reason for visit - Illness Patient: HENNY HAYES, Sex: F (ID# [id number]) Date of : 1975 (49 years) Visit on 08/19/2024 (Log# [id number]) Historian: Self Triage Notes: Pt reports they completed treatment, symptoms persist. History of Present Illness: 49-year-old female with stable asthma for many years reports persistent cough and occasional wheeze. Finished a Z-Williams 2 days ago and reports she was initially feeling better after the first day or 2 on the antibiotic. However her symptoms of cough have resumed. She has no fever, chest pain, or shortness of breath. She reports her symptoms feel more like an asthma exacerbation. 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 Complaint: Patient came in for a follow-up of constant (but worse at times) cough of the chest which was originally seen on 08/13/2024. Original Onset was 9 days ago. It has the following quality: nonproductive. The patient also reports congestion and nasal discharge as abnormal symptoms related to the complaint. Context - Initial History: The patient reports it was not the result of an injury. Review of Systems: The patient complains of the following recent symptoms: ENT and Mouth: nasal discharge Respiratory: congestion cough: See HPI Allergies: Penicillins: Drug allergy. Medications: atorvastatin calcium: atorvastatin calcium 40 mg tablet; Total Qty: 90 (ninety) Tablet; 0 refill(s); LACI; Zithromax: Zithromax 250 mg tablet; Take 1 tablet (oral) as directed on dose pack; Total Qty: 6 (six) tablet; 0 refill(s); Substitutions allowed; Earliest Fill Date: 08/13/2024 minoxidil: minoxidil 2.5 mg tablet; Total Qty: 90 (ninety) Tablet; 0 refill(s); LACI; benzonatate: benzonatate 100 mg capsule; Take 1 capsule (oral) 3 times per day for 7 days (PRN - Cough); Total Qty: 21 (twenty-one) capsule; 0 refill(s); Substitutions allowed; Earliest Fill Date: 08/13/2024 lisinopril: lisinopril 10 mg tablet; Total Qty: [...] Active) Lateral epicondylitis, right elbow (status Active) Nasal congestion (status Active) Acute cough (status Active) Acute bronchitis, unspecified (status Active) Surgeries: patient specifies no surgeries Social History: Tobacco Use: denies Alcohol: denies Street / Unprescribed Drugs: denies Vitals: 10:32 AM (08/19/2024)Temperature: 97.7 ?F, Pulse: 103 BPM, BP: 107/73, Respirations: 20/min, O2 Saturation: 96%, O2 Delivery: RAFirst entered 08/19/2024 10:32 by Eliceo Davis Physical Exam: The following exam elements were documented to be normal: Cardiovascular: S1, S2 noted, normal rate, regular rhythm, and no murmurs, rubs, gallop, or extra heart sounds. ENT: oropharynx and tonsils without swelling, erythema, lesion, exudate. ENT: tympanic membranes normal bilaterally. General: well developed, well nourished, and in no apparent distress. Lymph: no cervical lymphadenopathy. Respiratory: breathing effort and rate are grossly normal, speaks in full sentences. Respiratory: no increased work of breathing. Respiratory: lungs clear to auscultation bilaterally with good air movement, no stridor, crackles, rubs, or wheezing. Labs: Nakia 2 RSV Antigen IRINA Code(s): 37343 Results RSV: negative Wilb Nakia 1 ([id number]), [id number]: 1234Notes: Walk Away Mode Ordered 08/19/2024 10:41 by Shiv Morgan Completed 08/19/2024 10:43 by Eliceo Davis Reviewed 08/19/2024 11:07 by Shiv Morgan X-Rays: Study: Chest 2 views, frontal/lateral Code(s): 32175 Shielding: Transport: Ordered: 08/19/2024 10:41 by Shiv Morgan Completed: 08/19/2024 10:54 by Shiv Morgan In-Clinic Reading: infiltrate seen, linear pattern, right middle lobe. no atelectasis, normal diaphragm, no effusion, normal hilum, no pleural thickening, no pulmonary edema, no cardiomegaly, no masses, normal ribs, normal vertebrae, Readin08/19/2024 10:55 by Shiv Morgan Radiologist Impression: History: Cough-Chest: The patient presents with a chief complaint of constant (but worse at times) cough of the chest since 9 days ago. It has the following quality: nonproductive. Context - Initial History: The patient reports it was not the result of an injury. The patientalso reports congestion and nasal discharge as abnormal symptoms related to the complaint.ExaminationDescription: Chest xray, frontal and lateral viewsComparisons:None provided. FindingsThe cardiomediastinal silhouette is unremarkable.There are peribronchial markings in both lungs consistent with br onchial inflammation. No pleural effusion is noted. There is no pneumothorax present. The soft tissues and bones are unremarkable for age. IMPRESSION:There are peribronchial markings in both lungs consistent with bronchial inflammation. Over Read Generated: 08/19/2024 10:53 by Teleradiologist Specialist Over Read Received: 08/19/2024 10:53 Over Read Reviewed: 08/19/2024 12:51 by Shiv Morgan Diagnoses: Acute upper respiratory infection, unspecified (J06.9) Nasal congestion (R09.81) Acute bronchospasm (J98.01) Unspecified bacterial pneumonia (J15.9) Medication Orders: Prescribed: albuterol sulfate 2.5 mg /3 mL (0.083 %) Solution for Nebulization; Take 3 mL (inhalation) every 4 hours for 7 Days (PRN - shortness of breath or wheezing); Total Qty: 150 (one hundred and fifty) milliliter; 0 refill(s); Substitutions allowed; Earliest Fill Date: 08/19/2024ePrescribed at 11:07 AM on 08/19/2024 by IDALMIS Robledo-CPrescription sent to [facility]acy #[id number] (P: [phone] F: [phone]) [address] [place], [address] Prescribed: doxycycline hyclate 100 mg capsule; Take 1 capsule (oral) 2 times per day for 10 days; Total Qty: 20 (twenty) capsule; 0 refill(s); Substitutions allowed; Earliest Fill Date: 08/19/2024ePrescribed at 11:07 AM on 08/19/2024 by IDALMIS Robledo-[id number] (P: [phone] F: [phone]) [address] [place], [address] Discharge Instructions: Cough, Adult Nonallergic Rhinitis Bronchospasm, Adult Plan: If not feeling better in 3 day(s), please see your primary care physician. If you do not have a primary care physician, please return to this clinic. Patient Fit for duty without restrictions as of 08/24/2024. Visit discharged at 08/19/2024 11:08:41 AM by Shiv Morgan PA-C Signed electronically by Shiv Morgan PA-C on 08/19/2024 11:08:41 AM IMAGING NOTES * /Eastern History: Cough-Chest: The patient presents with a chief complaint of constant (but worse at times) cough of the chest since 9 days ago. It has the following quality: nonproductive. Context - Initial History: The patient reports it was not the result of an injury. The patient also reports congestionand nasal discharge as abnormal symptoms related to the complaint.ExaminationDescription: Chest xray, frontal and lateral viewsComparisons:None provided. FindingsThe cardiomediastinal silhouette is unremarkable.There are peribronchial markings in both lungs consistent with bronchial inflammation. No pleural effusion is noted. There is no pneumothorax present. The soft tissues and bones are unremarkable for age. IMPRESSION:There are peribronchial markings in both lungs consistent with bronchial inflammation. LABORATORY REPORT NARRATIVE NOTES * None PATHOLOGY REPORT NARRATIVE NOTES * None PROGRESS NOTES * None
--- OUTSIDE RECORDS SUMMARY | 2024-09-01 08:29 | XMS_ITS | Encounter Summary ---
Author Organization [employer] Address [address] [facility] [address] [place] [address] Care Team Providers Care Technology Intern Name Role Phone Braulio Carbajal MD Primary Care Prov ider Encounter Details Date Type Department Care Team (Late st Contact Info) Description 08/17/2022 Orders Only [facility] [address] [place] [address] Braulio Carbajal MD [address] [place] [address] Type 2 diabetes mellitus without complication, unspecified whether care home insulin use ([facility]) (Primary Dx) Social History Tobacco Use Types Packs/Day Years [...] Orientation Straight 06/04/2022 10 :29 AM EDT COVID-19 Exposure Response Date Recorded In the last 10 days, have yo u been in contact with someone who was confirmed or suspected to have Coronavirus/COVID-19? No / Unsure 08/17/2022 1:42 PM EST documented as of this encounter Plan of Treatment Not on file documented as of this encounter Procedures Procedure Name Priority Date/Time Associated Diagnosis Comments CA 19-9 Routine 01/09/2023 10:38 AM EDT Type 2 diabetes mellitus without complication, unspecified whether shingle trimmer insulin use (CMS/HCC) HEMATOXYLIN AND EOSIN STAIN Routine 01/09/2023 8:38 AM EDT Type 2 diabetes mellitus without complication, unspecified whether care home insulin use (CMS/HCC) COVID-19 ID NOW (DUPREE) Routine 01/08/2023 2:18 PM EDT Type 2 diabetes mellitus without complication, unspecified whether shingle trimmer insulin use (CMS/HCC) TYPE AND SCREEN Routine 01/01/2023 10:22 AM EDT Type 2 diabetes mellitus without complication, unspecified whether care home insulin use (CMS/HCC) VITAMIN D,25-OH,TOTAL,IA Routine 01/01/2023 10:20 AM EDT Type 2 diabetes mellitus without complication, unspecified whether shingle trimmer insulin use (CMS/HCC) TSH W/REFLEX TO FT4 Routine 01/01/2023 1 0:20 AM EDT Type 2 diabetes mellitus without complication, unspecified whether shingle trimmer insulin use (CMS/HCC) CBC WITH AUTO DIFFERENTIAL Routine 01/01/2023 10:20 AM EDT Type 2 diabetes mellitus without complication, unspecified whether care home insulin use (CMS/HCC) ZINC Routine 01/01/2023 10:20 AM EDT Type 2 diabetes mellitus without complication, unspecified whether care home insulin use (CMS/HCC) VITAMIN A Routine 01/01/2023 10:20 AM EDT Type 2 diabetes mellitus without complication, unspecified whether care home insulin use (CMS/HCC) APTT Routine 01/01/2023 10:20 AM EDT Type 2 diabetes mellitus without complication, unspecified whether shingle trimmer insulin use (CMS/HCC) PROTHROMBIN TIME-INR Routine 01/01/2023 10:20 AM EDT Type 2 diabetes mellitus without complication, unspecified whether shingle trimmer insulin use (CMS/HCC) C-REACTIVE PROTEIN Routine 01/01/2023 10 :20 AM EDT Type 2 diabetes mellitus without complication, unspecified whether care home insulin use (CMS/HCC) VITAMIN B1 Routine 01/01/2023 10:20 AM EDT Type 2 diabetes mellitus without complication, unspecified whether care home insulin use (CMS/HCC) PTH, INTACT WITHOUT CALCIUM Routine 01/01/2023 10:20 AM EDT Type 2 diabetes mellitus without complication, unspecified whether care home insulin use (CMS/HCC) HEMOGLOBIN A1C Routine 01/01/2023 10:20 AM EDT Type 2 diabetes mellitus without complication, unspecified whether shingle trimmer insulin use (CMS/HCC) FERRITIN Routine 01/01/2023 10:20 AM EDT Type 2 diabetes mellitus without complication, unspecified whether care home insulin use (CMS/HCC) VITAMIN B12 Routine 01/01/2023 10:20 AM EDT Type 2 diabetes mellitus without complication, unspecified whether care home insulin use (CMS/HCC) LIPID PANEL, STANDARD Routine 01/01/2023 10:20 AM EDT Type 2 diabetes mellitus without complication, unspecified whether shingle trimmer insulin use (CMS/HCC) COMPREHENSIVE METABOLIC PANEL Routine 01/01/2023 10:20 AM EDT Type 2 diabetes mellitus without complication, unspecified whether care home insulin use (CMS/HCC) GLUCOSE, WHOLE BLOOD Routine 11/13/2022 1:31 PM EDT Type 2 diabetes mellitus without complication, unspecified whether shingle trimmer insulin use (CMS/HCC) HEMOGLOBIN A1C Routine 11/13/2022 1:14 PM EDT Type 2 diabetes mellitus without complication, unspecified whether care home insulin use (CMS/HCC) documented in this encounter Results * CA 19-9 (01/09/2023 10:38 AM EDT) CA 19-9 14 <34 U/mL [facility] Comment:The CA19-9 result ma y be increased on average 14% - 20%,relative to results previously obtained with this methoddue to a recent calibrator adjustment made in Octobery the reagent optical manager. In the low range for thisassay (< 34 U/mL), this increase may be greater than 20%.Serially monitored results should always be used inconjunction with other diagnostic procedures, includingclinical evaluation.This test was performed using the Siemenschemiluminescent method. Values obtained fromdifferent assay methods cannot be usedinterchangeably. CA 19-9 levels, regardless ofvalue, should not be interpreted as absoluteevidence of the presence or absence of disease.THIS TEST WAS PERFORMED AT:[facility] [place] [id number] LONDONO MD 01/09/2023 10:3 8 AM EDT 01/09/2023 10:42 AM EDT [facility] External Provider LAB BLO OD ORDERABLES Final Result [facility] [address] [place] [phone] * Hematoxylin and Eosin Stain (01/09/2023 8:38 AM EDT) 01/09/2023 8:38 AM EDT 01/09/2023 8:53 AM EDT Narrative [facility] - 01/14/2023 1:28 PM EDT ----- ------- Name: Julia López ? Age/Sex: 47/F ? : 1975 Unit#: [id number] ?? Attend Dr: Darci Sanders MD ?Re01/09/23 ?Status: DEP SDC ? Location: HO.SSS ?Disch: ? ----- ------- SPEC : [id number] ? RECD: 01/09/23 ? STATUS: ??SOUT ? REQ NUM: [id number] ? PUSHPA: 01/09/23 ? SUBM DR: Darci Sanders MD ? ENTERED: ??01/09/23 ?SP TYPE: Surgical ? OTHR DR: Braulio Carbajal MD ORDERED: ??HE Stain/8, Frozen Section/2, Gross Micro L4/2, Gross Micro L5/2, TP W/FS, IHC/4, ?Add. immunos/2, CK7, Haley-3, H. pylori/2, Ki-67/3 ? Diagnosis ?? A. ??Liver, left lobe, mass, biopsy: ??Bile duct adenoma; negative for malignancy. ? B. ??Liver, left lobe, nodule, biopsy: ??Bile duct adenoma; negative for malignancy. ? C. ??Stomach, body, biopsy: ??Oxyntic mucosa with mild chronic inactive inflammation; no ?? Helicobacter organisms seen. ? D. ??Stomach, antrum, biopsy: ??Antral-type and oxyntic mucosa with mild chronic inactive ?? inflammation; no Helicobacter organisms seen. ?Clinical History Pre-Op Dx: ??Morbid (severe) obesity due to excess calories Post-Op Dx: Liver mass, adenocarcinoma ?Microscopic Description A-D. ??Microscopic sections reviewed. ??Sections from the liver lesions have fibrous tissue and hepatic parenchyma with focal proliferations of small somewhat irregularly- shaped glands comprised of benign-appearing epithelium. ??By immunohistochemistry, the lesional cells are reactive with CK7 and non-immunoreactive with GATA3; the proliferation index is quite low by Ki-67 immunostaining. ??Immunostain for H.pylori is nonreactive in C and D. ? Material Received ?? A: Mass left liver lobe ?? B: Left liver lobe nodule ?? C: Gastric body ?? D: Gastric antrum ? Gross Description Received in 4 parts. Part A: ??Received in formalin labeled Mass left liver lobe is a glistening, semitranslucent, rubbery, camp-pink, irregular tissue fragment measuring 0.35 x 0.25 x 0.2 cm. A touch prep is made and the specimen is submitted in toto for frozen section. ??The frozen section residue is submitted labeled AFS. The intraoperative diagnosis is reported to Dr. Sanders as Neoplastic tissue, favor well- differentiated adenocarcinoma by Dr. Lebron. ? CONTINUED ON NEXT PAGE ----- ------- Name: Julia López ? Age/Sex: 47/F ? : 1975 Unit#: [id number] ?? Attend Dr: Darci Sanders MD ?Re01/09/23 ?Status: DEP SDC ? Location: HO.SSS ?Disch: ? ----- ------- SPEC : [id number] ? RECD: 01/09/23 ? STATUS: ??SOUT ? REQ NUM: [id number] ? PUSHPA: 01/09/23 ? SUBM DR: Darci Sanders MD ? ENTERED: ??01/09/23 ?SP TYPE: Surgical ? OTHR DR: Braulio Carbajal MD ORDERED: ??HE Stain/8, Frozen Section/2, Gross Micro L4/2, Gross Micro L5/2, TP W/FS, IHC/4, ?Add. immunos/2, CK7, Haley-3, H. pylori/2, Ki-67/3 ? Gross Description ?(Continued) Part B: ??Received in formalin labeled ?left liver lobe nodule? is a 0.8 x 0.5 x 0.25 cm irregular portion of camp-white and camp-brown hepatic parenchyma with a 0.5 x 0.3 x 0.2 cm rubbery, pearly, camp, white-pink nodular focus suspicious for tumor. ??The specimen is bisected and entirely submitted in cassettes B1 and B2. Part C: ??Received in formalin labeled ?gastric body? are 3 glistening, semitranslucent, rubbery, camp-pink irregular tissue fragments each measuring 0.3 cm in greatest dimension which are submitted in toto in a single cassette labeled C. Part D: ??Received in formalin labeled ?gastric antrum? are 3 glistening, semitranslucent, soft, camp-pink irregular tissue fragments each measuring 0.3 cm in greatest dimension which are submitted in toto in a single cassette labeled D. CEDS This case was reviewed intradepartmentally; results were communicated to Drs. Sanders and Gentry via secure text on 01/14/2023. Special studies ordered and performed: Immunostains for H. pylori on C1 and D1. Immunostains for Ki67 on A1 and B2. ??Immunostains for CK7 and GATA3 on B2. Copies To: ?? Braulio Carbajal MD ?? [address] ?? [place] [address] ?? [phone] ?? Darci Sanders MD ?? [address] [place] [address], [address] ?? [place] [address] ?? [phone] ----- ------- Signed (signature on file) Shaun Lebron MD 01/14/23 1328 ? ----- ------- ? END OF REPORT ? us [facility] External Provider LAB BLO OD ORDERABLES Final Result [facility] [address] [place] [phone] * COVID-19 ID NOW ([employer]) (01/08/2023 2:18 PM EDT) IDNOW SERIAL# [id number] [facility] COVID-19 TEST Negative Negative [facility] COVID-19 NOTE See Note [facility] Comment: Results are for the identification of SARS-CoV2 RNA. TheSARS-CoV2 RNA is generally detectable in respiratory samplesduring the acute phase of infection. Positive results areindicative of the presence of SARS-CoV-2 RNA; clinicalcorrelation with patient history and other diagnosticinformation is necessary to determine patient infectionstatus. Positive results do not rule out bacterial infectionor co- infection with other viruses.Testing facilities within the [facility] and itsterritories are required to report all positive results tothe appropriate public health authorities.Negative results should be treated as presumptive and, ifinconsistent with clinical signs and symptoms or necessaryfor patient management, should be tested with differentauthorized or cleared molecular tests. Negative results donot preclude SARS-CoV2 RNA infection and should not be usedas the sole basis for patient management decisions. Negativeresults should be considered in the context of a patient'srecent exposures, history and the presence of clinical signsand symptoms consistent with COVID-19.This test has been authorized by the FDA under an EmergencyUse Authorization (EUA) for use by authorized laboratories.Testing performed on the [facility] ID NOW utilizing NAAT. 01/08/2023 2:18 PM EDT 01/08/2023 2:32 PM EDT [facility] Exter nal Provider LAB MOLECULAR DIAGNOSTICS ORDERABLES Final Result Performing Organization Address [facility]/ZIP Co de Phone Number [facility] [address] [place] [phone] * Type and screen (01/01/2023 10:22 AM EDT) Blood Type OP [facility] Antibody Screen NEGATIVE [facility] 01/01/2023 10:2 2 AM EDT 01/01/2023 11:04 AM EDT Narrative [facility] - 01/01/2023 11:55 AM EDT Spec expiration changed by JAMESON on 01/01/23Reason: For SURGERYNURSING:Call Blood Bank (ext. [phone]) to band patient on admission.Type and Screen in effect until 2300 on 01/09/23Witnessed by EDELMIRA [facility] External Provider LAB BLO OD BANK TEST ORDERABLES Final Result Performing Organization Address [facility] Co de Phone Number [facility] [address] [place] [phone] * (ABNORMAL) Vitamin A (01/01/2023 10:20 AM EDT) Vitamin A (Retinol) 32(A) 38 - 98 mcg/dL [facility] Comment:Vitamin supplementat ion within 24 hours prior toblood draw may affect the accuracy of the results.This test was developed and its analytical performancecharacteristics have been determined by [employer] [place]. It hasnot been cleared or approved by the U.S. Food and DrugAdministration. This assay has been validated pursuantto the CLIA regulations and is used for clinicalpurposes.THIS TEST WAS PERFORMED AT:[employer] [id number] [place] [address]VWRQOCHNICOLA BARRY MD,PHD 01/01/2023 10:2 0 AM EDT 01/01/2023 10:20 AM EDT [facility] External Provider LAB BLO OD ORDERABLES Final Result Performing Organization Address [facility] Co de Phone Number [facility] [address] [place] [phone] * (ABNORMAL) Vitamin B1 (01/01/2023 10:20 AM EDT) Vitamin B1 <6(A) 8 - 30 nmol/L [facility] Comment:Vitamin supplementat ion within 24 hours prior toblood draw may affect the accuracy of the results.This test was developed and its analytical performancecharacteristics have been determined by [employer] [place], [place]. It hasnot been cleared or approved by the U.S. Food and DrugAdministration. This assay has been validated pursuantto the CLIA regulations and is used for clinicalpurposes.THIS TEST WAS PERFORMED AT:[employer]/[id number] [place] [address]JXXRFITNICOLA BARRY MD,PHD 01/01/2023 10:2 0 AM EDT 01/01/2023 10:20 AM EDT [facility] External Provider LAB BLO OD ORDERABLES Final Result Performing Organization Address [facility] Co de Phone Number [facility] [address] [place] [phone] * Zinc (01/01/2023 10:20 AM EDT) Zinc 84 60 - 130 mcg/dL [facility] Comment:This test was develo ped and its analytical performancecharacteristics have been determined by [employer] [place], [place]. It hasnot been cleared or approved by the U.S. Food and DrugAdministration. This assay has been validated pursuantto the CLIA regulations and is used for clinicalpurposes.THIS TEST WAS PERFORMED AT:[employer] [place] [address]AWAWTMGNICOLA BARRY MD,PHD 01/01/2023 10:2 0 AM EDT 01/01/2023 10:20 AM EDT [facility] External Provider LAB BLO OD ORDERABLES Final Result Performing Organization Address [facility] Co de Phone Number [facility] [address] [place] [address] [phone] * PTH, Intact Without Calcium (01/01/2023 10:20 AM EDT) PTHI 32 16 - 77 pg/mL [facility] Comment:Interpretive Guide I ntact PTH Calcium -------Normal Parathyroid Normal NormalHypoparathyroidism Low or Low Normal LowHyperparathyroidism Primary Normal or High High Secondary High Normal or Low Tertiary High HighNon-Parathyroid Hypercalcemia Low or Low Normal High Calcium (PTHI) 9.9 8.6 - 10.2 mg/dL [facility] Comment:THIS TEST WAS PERFOR MED AT:[employer] [address] [id number] LONDONO MD 01/01/2023 10:2 0 AM EDT 01/01/2023 10:20 AM EDT [facility] External Provider LAB BLO OD ORDERABLES Final Result Performing Organization Address [facility]/ZIP Co de Phone Number [facility] [address] [place] [phone] * Lipid Panel, Standard (01/01/2023 10:20 AM EDT) Triglycerides 73 mg/dL [facility] Comment:Desirable Triglyceri de: less than 150 mg/dLBorderline High Triglyceride 150-199 mg/dLHigh Triglyceride: 200-499 mg/dLVery High Triglyceride: greater than or equal to 5OO mg/dL Cholesterol 101 mg/dL [facility] Comment:Desirable Cholestero l: less than 200 mg/dLBorderline High Cholesterol: 200-239 mg/dLHigh Cholesterol: greater than 239 mg/dL LDL Cholesterol Calculated 53 mg/dl [facility] Comment:Desirable LDL: less than 100 mg/dLNear Optimal/Above Optimal LDL: 110- 129 mg/dLBorderline High LDL: 130-159 mg/dLHigh LDL: 160-189 mg/dLVery High LDL: greater than or equal to 190 mg/dL HDL Cholesterol 34 mg/dL [facility] Comment:Desirable HDL: great er than 40 mg/dL Note: This HDL assay may give artificially low results in patients with liver disease. 01/01/2023 10:2 0 AM EDT 01/01/2023 10:20 AM EDT [facility] External Provider LAB BLO OD ORDERABLES Final Result Performing Organization Address City/[facility]/ZIP Co de Phone Number [facility] [address] [place] [phone] * (ABNORMAL) C-reactive Protein (01/01/2023 10:20 AM EDT) C Reactive Protein 2.54(H) < or = 0.50 mg/dL [facility] 01/01/2023 10:2 0 AM EDT 01/01/2023 10:20 AM EDT [facility] External Provider LAB BLO OD ORDERABLES Final Result [facility] [address] [place] [phone] * (ABNORMAL) Comprehensive Metabolic Panel (01/01/2023 10:20 AM EDT) Sodium 136 135 - 145 mmol/L [facility] Potassium 4.7 3.3 - 5.1 mmol/L [facility] Chloride 99 96 - 108 mmol/L [facility] Carbon Dioxide 28 22 - 29 mmol/L [facility] Anion Gap 14 12 - 20 [facility] Urea Nitrogen (BUN) 13 9 - 16 mg/dL [facility] Creatinine, Serum 0.80 0.5 - 1.4 mg/dL [facility] Creatinine Clr Calc Pharmacy 134.3 [facility] Comment:Provided height and weight: 175.26 cm,142.882 kg.eGFR (calculated from the MDRD study equation) and eCrCl(calculated from the Cockcroft-Gault equation) are based ondifferent parameters and may not yield comparable results.If eCrCl result is absurd, please check patient'sheight/weight. Estimated Glomerular Filt Rate >60 [facility] Comment:NOTE: For -Am erican individuals, multiply the result by 1.210.Chronic Kidney Disease: Estimated GFR < 60 mL/min/1.17j5Ptxckj Kidney Disease: Estimated GFR < 15 mL/min/1.73m2 Glucose 141(H) 60 - 115 mg/dL [facility] Calcium 10.0 8.4 - 10.2 mg/dL [facility] Bilirubin, Total 0.9 0.0 - 1.0 mg/dL [facility] Aspartate Amino Transferase 18 5 - 31 U/L [facility] Alanine Aminotransferase 14 0 - 31 U/L [facility] Total Protein 7.9 6.5 - 8.0 g/dL [facility] Albumin Level 4.0 3.5 - 5.0 g/dL [facility] Alkaline Phosphatase 85 39 - 117 U/L [facility] 01/01/2023 10:2 0 AM EDT 01/01/2023 10:20 AM EDT [facility] External Provider LAB BLO OD ORDERABLES Final Result Performing Organization Address [facility]/ZIP Co de Phone Number [facility] [address] [place] [phone] * TSH W/Reflex to FT4 (01/01/2023 10:20 AM EDT) TSH reflex Free T4 1.39 0.32 - 4.0 uIU/mL [facility] 01/01/2023 10:2 0 AM EDT 01/01/2023 10:20 AM EDT [facility] External Provider LAB BLO OD ORDERABLES Final Result Performing Organization Address [facility] de Phone Number [facility] [address] [place] [phone] * Vitamin D, 25-Hydroxy, Total, Immunoassay (01/01/2023 10:20 AM EDT) Vitamin D 25-OH Total 23.8 >30 ng/mL [facility] Comment:Health Based Referen ce Values*< 20 ng/mL Zrentfqdh15-00 ng/mL Insufficient> 30 ng/mL Sufficient*Nay HASTINGS. N Engl J Med. 2007;357:266-280Care must be taken in interpreting Vitamin D results fromdifferent laboratories and methodologies. Published datademonstrated that results from patients undergoinghemodialysis may show a negative bias when tested withvarious automated 25-OH vitamin D assays when compared toLC-MS/MS.When testing samples from patients whose predominant form ofVitamin D is Vitamin D2, such as patients receiving VitaminD2 supplementation, results that are subtherapeutic shouldbe confirmed with another method such as LC-MS/MS. 01/01/2023 10:2 0 AM EDT 01/01/2023 10:20 AM EDT [facility] External Provider LAB BLO OD ORDERABLES Final Result Performing Organization Address [facility] Co de Phone Number [facility] [address] [place] [phone] * Vitamin B12 (01/01/2023 10:20 AM EDT) Vitamin B12 505 200 - 900 pg/mL [facility] Comment:NORMAL 200-900 PG/ML INDETERMINATE 160-199 PG/ML DEFICIENT < 160 PG/ML 01/01/2023 10:2 0 AM EDT 01/01/2023 10:20 AM EDT [facility] External Provider LAB BLO OD ORDERABLES Final Result Performing Organization Address [facility] Co de Phone Number [facility] [address] [place] [phone] * Ferritin (01/01/2023 10:20 AM EDT) Ferritin 192 10 - 250 ng/mL [facility] 01/01/2023 10:2 0 AM EDT 01/01/2023 10:20 AM EDT [facility] External Provider LAB BLO OD ORDERABLES Final Result Performing Organization Address [facility] Co de Phone Number [facility] [address] [place] [phone] * Hemoglobin A1c (01/01/2023 10:20 AM EDT) Hemoglobin A1c 6.8 % [facility] Comment:Hemoglobin A1C Refer ence Range Adults: 4.8 - 6.0 % Non diabetic: < 6.0 % Goal: < 7.0 %Additional Action Suggested: > 8.0 %Note: Hemoglobin A1c results are invalid for patients with abnormal amounts of HbF. Blood transfusions may impact the HbA1c concentration in the patient sample. Estimated Average Glucose 148 mg/dL [facility] Comment:eAG = Estimated ave rage glucose which is %A1C expressed asaverage glucose, using the formula of the T7F-PeodbuxAilpvlr Glucose study (ADAG), Diabetes Care, Vol.31,#8,2007 01/01/2023 10:2 0 AM EDT 01/01/2023 10:20 AM EDT [facility] External Provider LAB BLO OD ORDERABLES Final Result Performing Organization Address [facility] de Phone Number [facility] [address] [place] [phone] * APTT (01/01/2023 10:20 AM EDT) Partial Thromboplastin Time 35.0 26.0 - 36.4 SEC [facility] 01/01/2023 10:2 0 AM EDT 01/01/2023 10:20 AM EDT [facility] External Provider LAB BLO OD ORDERABLES Final Result Performing Organization Address [facility] de Phone Number [facility] [address] [place] [phone] * Prothrombin Time-INR (01/01/2023 10:20 AM EDT) Prothrombin Time 12.9 10.0 - 13.1 SEC [facility] INTERNATIONAL NORM RATIO 1.1 0.9 - 1.1 [facility] Comment:INTERNATIONAL NORMAL IZED RATIO (INR) REFERENCE RANGES Reference RangeFor patients not on anticoagulant therapy: 0.9 - 1.1INR ranges for oral anticoagulanttherapy:For prevention and treatment of venous thrombosis and pulmonary embolism: 2.0 - 3.0For acute myocardial infarction with aspirin therapy: 2.0 - 3.0For acute myocardial infarction without aspirin therapy: 3.0 - 4.0For patients with mechanical prosthetic heart valves: 2.5 - 3.5 01/01/2023 10:2 0 AM EDT 01/01/2023 10:20 AM EDT us [facility] External Provider LAB BLO OD ORDERABLES Final Result [facility] [address] [place] [address] [phone] * (ABNORMAL) CBC auto differential (01/01/2023 10:20 AM EDT) White Blood Count 11.3(H) 4.8 - 10.8 X10*3/uL [facility] Red Blood Count 5.09 4.20 - 5.50 X10*6/uL [facility] Hemoglobin 13.8 12.0 - 16.0 g/dl [facility] Hematocrit 44.1 37.0 - 47.0 % [facility] Mean Corpuscular Volume 86.6 80.0 - 98.0 fL [facility] Mean Corpuscular Hemoglobin 27.1 27.0 - 33.0 pg [facility] Mean Corpuscular HGB Conc 31.3 31.0 - 35.0 g/dl [facility] Red Cell Distribution Width 14.3 11.0 - 16.0 % [facility] Platelet Count 376 160 - 400 X10*3/uL [facility] Mean Platelet Volume 9.2(L) 9.4 - 12.3 fL [facility] Neutrophils Percent Auto 66.0 45 - 73 % [facility] Imm Gran Pct Auto 0.8(H) 0.0 - 0.4 % [facility] Lymphocytes Percent Auto 25.1 20 - 40 % [facility] Monocytes Percent Auto 5.5 2 - 11 % [facility] Eosinophils Percent Auto 2.0 0 - 4 % [facility] Basophils Percent Auto 0.6 0 - 2 % [facility] NRBC Pct Auto 0.0 0.0 - 0.2 /100WBC [facility] Neutrophils Absolute Auto 7.4 2.0 - 8.3 x10*3/uL [facility] Imm Gran Abs Auto 0.09(H) 0.00 - 0.03 X10*3/uL [facility] Lymphocytes Absolute Auto 2.8 1.2 - 4.9 X10*3/uL [facility] Monocytes Absolute Auto 0.6 0.1 - 1.2 X10*3/uL [facility] Eosinophils Absolute Auto 0.2 0.0 - 0.4 X10*3/uL [facility] Basophils Absolute Auto 0.1 0.0 - 0.2 X10*3/uL [facility] NRBC Abs Auto 0.000 0.0 - 0.012 X10*3/uL [facility] 01/01/2023 10:2 0 AM EDT 01/01/2023 10:20 AM EDT [facility] External Provider LAB BLO OD ORDERABLES Final Result Performing Organization Address [facility]/ZIP Co de Phone Number [facility] [address] [place] [address] [phone] * (ABNORMAL) Glucose, Whole Blood (11/13/2022 1:31 PM EDT) Glucose, Whole Blood 196(H) 60 - 115 mg/dL [facility] Comment:METER #: [id number] 5Testing performed in the Endocrinology Department [address] , [address], [facility]. 11/13/2022 1:31 PM EDT 11/13/2022 1:34 PM EDT [facility] External Provider LAB BLO OD ORDERABLES Final Result Performing Organization Address [facility]/ZIP Co de Phone Number [facility] [address] [place] [address] [phone] * Hemoglobin A1c (11/13/2022 1:14 PM EDT) Hemoglobin A1c 7.4 % [facility] Comment:Hemoglobin A1C Refer ence Range Adults: 4.8 - 6.0 % Non diabetic: < 6.0 % Goal: < 7.0 %Additional Action Suggested: > 8.0 %Note: Hemoglobin A1c results are invalid for patients with abnormal amounts of HbF. Blood transfusions may impact the HbA1c concentration in the patient sample. 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
--- OUTSIDE RECORDS SUMMARY | 2024-09-01 08:29 | XMS_ITS | Encounter Summary ---
Author Organization [employer] Address [address] [facility] 7 [place] [address] Care Team Providers Care Advertiser Name Role Phone Braulio Carbajal MD Primary Care Prov ider Reason for Visit * Reason Onset Date Comments Med Refill 02/28/2023 Encounter Details Date Type Department Care Team (Late st Contact Info) Description 02/28/2023 Refill [facility] [address] [place] [address] Braulio Carbajal MD [address] [place] [phone] Mixed hyperlipidemia; Primary hypertension; Type 2 diabetes mellitus with diabetic polyneuropathy, with long-term current use of insulin (CMS/HCC) Social History Tobacco Use Types Packs/Day Years [...] documented as of this encounter Visit Diagnoses Diagnosis Mixed hyperlipidemia Primary hypertension Unspecified essential hypertension Type 2 diabetes mellitus with diabetic polyneuropathy, with long-term current use of insulin (CMS/HCC) documented in this encounter Care Teams Advertiser Relationship Specialty Start Date End Date Braulio Carbajal MD [address] [place] [phone] PCP - General Internal Medicine 12/14/19 04/28/24 documented as of this encounter
--- OUTSIDE RECORDS SUMMARY | 2024-09-01 08:29 | XMS_ITS | Encounter Summary ---
Author Organization [facility] Address [address] [place] [address] [address], [place] [address] Care Team Providers Care Loan Services Professional Name Role Phone Braulio Carbajal MD Primary Care Prov ider Reason for Visit * Reason Comments Med Refill Encounter Details Date Type Department Care Team (Late st Contact Info) Description 10/29/2022 Refill [facility] [address] [place], [place] [phone] Braulio Carbajal MD [address] [place] [address] Social History Tobacco Use Types Packs/Day Years [...] on filedocumented in this encounter Care Teams Loan Services Professional Relationship Specialty Start Date End Date Braulio Carbajal MD [address] [place] [address] PCP - General Internal Medicine 12/14/19 04/28/24 documented as of this encounter
== END 2024-09-01 10:08 | disposition home or self-care (01) ==
LOC: HO.HOP 08:13
PROVIDERS: PCP Internal Medicine; Visit Provider Counselor Mental Health
DX: F90.2 Attention-deficit hyperactivity disorder, combined type (principal); F41.0 Panic disorder [episodic paroxysmal anxiety]; F32.A Depression, unspecified
CPT/HCPCS: 90837

== ENCOUNTER 2024-09-15 08:12 | Outpatient (AMB) | payer OTHER, SELFPAY ==
--- NOTE | 2024-09-15 08:12 | MHC.WMTHER ---
Intake Intake Visit Reasons: VIDEO OP Therapy Allergies Penicillins Allergy (Intermediate, Verified 05/26/24 10:01) Shortness of Breath pt states no food allergies Allergy (Unknown, Uncoded 05/26/24 10:01) Unknown [facility] Medical History Type 2 diabetes mellitus with retinopathy Asthma Insomnia Neuropathy Breast calcification, right Adenocarcinoma determined by biopsy of liver Diabetic retinopathy Anxiety and depression GERD (gastroesophageal reflux disease) SOLE on CPAP ADHD Hyperlipidemia HTN (hypertension) with goal to be determined Diabetes mellitus Morbid obesity Surgical History History of cholecystectomy Family History Mother Diabetes Heart problem Father Hypertension Maternal Grandmother Primary cancer of bone marrow Maternal Grandfather Prostate cancer Social History Are you a primary memory care director to a significant other at home: No Do you presently have visiting nurse or other home services: No Alcohol intake: never Patient Tobacco Use Status: Never used Tobacco Female Reproductive History Menstrual Age of Menarche: 13 Behavioral Health Assessment Weight Management Therapy Therapy Notes Details Subjective: Doing better at work. Continue working towards weight-loss goals and planning for weight-loss surgery. PT reports she is working on meal planning and prevent skipping meals. Family situation is also better. Objective: PT presents for a f/up visit via Telehealth. Discussed functioning and routine Worked on organization and self-care Used CBT, reflective listening and interpersonal approach used while Constructive feedback provided. Assessment/Response: Mental status: WNL, good functioning. Risk reported/identified: None PT stable and active. She responded well to interventions. Assessment & Plan Assessment & Plan (1) ADHD: Code(s): F90.9 - Attention-deficit hyperactivity disorder, unspecified type Qualifiers: Attention deficit-hyperactivity disorder type: combined inattentive-hyperactive Qualified Code(s): F90.2 - Attention-deficit hyperactivity disorder, combined type (2) Panic disorder: Code(s): F41.0 - Panic disorder [episodic paroxysmal anxiety] (3) Depression, unspecified: Code(s): F32.A - Depression, unspecified Plan Continue bi-weekly sessions. Next jase: 09/29/2024 at 10am, Telehealth. Telehealth Telehealth Telehealth Platform: [employer] Location of provider rendering services: other Location of patient: address on file Patient Identification confirmed using: Name, : Yes Telehealth method: video Patient verbally consented to treatment: Yes Patient verbally consented to billing insurance company: Yes Patient informed of any privacy concerns related to visit: Yes Minutes spent on Phone/Video with Pt.: 60 Coding Level of Care Code Established Pt Tele Psytx >53 mins (03652) Patient Type Established Diagnoses Attention deficit hyperactivity disorder (ADHD), combined type F90.2 Attention deficit-hyperactivity disorder type: combined inattentive-hyperactive Panic disorder F41.0 Depression, unspecified F32.A Time Spent (min) 60
== END 2024-09-15 09:30 | disposition home or self-care (01) ==
LOC: HO.HOP 08:12
PROVIDERS: PCP Internal Medicine; Visit Provider Counselor Mental Health
DX: F90.2 Attention-deficit hyperactivity disorder, combined type (principal); F41.0 Panic disorder [episodic paroxysmal anxiety]; F32.A Depression, unspecified
CPT/HCPCS: 90837

== ENCOUNTER → 2024-09-15 08:12 | Outpatient (BNVA) | payer OTHER, SELFPAY | PROVIDERS: PCP Internal Medicine; Visit Provider Counselor Mental Health ==

== ENCOUNTER 2024-09-29 10:08 | Outpatient (AMB) | payer OTHER, SELFPAY ==
--- NOTE | 2024-09-29 10:00 | MHC.WMTHER ---
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 liver Diabetic retinopathy Anxiety and depression GERD (gastroesophageal reflux disease) SOLE on CPAP ADHD Hyperlipidemia HTN (hypertension) with goal to be determined Diabetes mellitus Morbid obesity Surgical History History of cholecystectomy Family History Mother Diabetes Heart problem Father Hypertension Maternal Grandmother Primary cancer of bone marrow Maternal Grandfather Prostate cancer Social History Are you a primary home care physical therapist to a significant other at home: No Do you presently have visiting nurse or other home services: No Alcohol intake: never Patient Tobacco Use Status: Never used Tobacco Female Reproductive History Menstrual Age of Menarche: 13 Behavioral Health Assessment Weight Management Therapy Therapy Notes Details Subjective: The patient presents feeling down and disappointed, emotions triggered by ongoing dynamics at her full-time job. She reports becoming more aware of her tendency to be self-critical and harsh on herself, which contributes to her feelings of being brought down. 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 Objective: The patient presents for a follow-up visit via telehealth. Reflective listening was employed to process the patient's functioning and challenges. CBT-based interventions were utilized to address burnout symptoms and to support symptom management, mindset shifts, negative self-talk, and coping skills. Assessment/Response: Mental status: Mild depressive symptoms, attentional issues, low motivation, mild functional impairment, and fatigue. Risk reported/identified: None. The patient responded well to the interventions. Despite experiencing active symptoms of depression, the patient is aware of her triggers, and no immediate risk concerns are present. Assessment & Plan Assessment & Plan (1) ADHD: Code(s): F90.9 - Attention-deficit hyperactivity disorder, unspecified type Qualifiers: Attention deficit-hyperactivity disorder type: combined inattentive-hyperactive Qualified Code(s): F90.2 - Attention-deficit hyperactivity disorder, combined type (2) Panic disorder: Code(s): F41.0 - Panic disorder [episodic paroxysmal anxiety] (3) Depression, unspecified: Code(s): F32.A - Depression, unspecified Plan Continue bi-weekly sessions. Next jase: 10/13/2024 at 8am, Telehealth. Telehealth Telehealth Telehealth Platform: [facility] Location of provider rendering services: practice address Location of patient: address on file Patient Identification confirmed using: Name, : Yes Telehealth method: video Patient verbally consented to treatment: Yes Patient verbally consented to billing insurance company: Yes Patient informed of any privacy concerns related to visit: Yes Minutes spent on Phone/Video with Pt.: 60 Coding Level of Care Code Established Pt Tele Psytx >53 mins (45285) Patient Type Established Diagnoses Attention deficit hyperactivity disorder (ADHD), combined type F90.2 Attention deficit-hyperactivity disorder type: combined inattentive-hyperactive Panic disorder F41.0 Depression, unspecified F32.A Time Spent (min) 60
--- OUTSIDE RECORDS SUMMARY | 2024-09-29 11:52 | XMS_ITS | Clinical Summary ---
Author Organization [facility] Address [address] [place] [address] Care Team Providers Care Family Service Center Director Name Role Phone Braulio Lopez Primary Care Provider [phone] Allergies Active Allergy Reactions Criticality Noted Date [...] age to complete this topic Care Teams Family Service Center Director Relationship Specialty Start Date End Date Braulio Lopez PCP - General Internal Medicine 02/01/22
--- OUTSIDE RECORDS SUMMARY | 2024-09-29 11:52 | XMS_ITS | Data Portability ---
Author Organization [place] [facility] [place] Address [address] [place] [phone] Care Team Providers Care Solar Development Engineer Name Role Phone JAVIER LANGLEY Referring Provider [phone] Assessment Encounter Date Assessment Date Assessment LastModified by Organization Details LastModified Time 06/18/2024 06/18/2024 IMPRESSION: 49-year-old klxit-ohpa-dwiaakh t woman with RIGHT lateral epicondylitis. PLAN: [...] Gonzalez MS, PA-C in indirect conjunction with [facility] provider Clark Andino MD. He agrees with history, physical examination, tests/diagnostic imaging, and treatment plan. This document was generated using voice recognition software. As a result, there may be unintended spelling, grammatical and/or textual errors. Not available 07/07/2024 11:07:22 Plan of Treatment Reminders Order Date Submit Date Provider Last Modified By Organization Details Last Modified Time Details Appointments FOLLOW UP 2024 08:45A M Humble Avina MD Not available Not [...] scale). 2023 024 [email or web address] [facility], [address], [place], [address], 08/13/2024 15:48:51 Surgeries None recorded. Imaging XR, hip, unilatera l, 2 or 3 view 2023 024 [email or web address] [facility], [address], [address], [place], [address], 07/07/2024 11:51:40 XR, elbow, 3 or more view 2023 024 [facility], [address], [address], [place], [address], 06/19/2024 16:54:16 Medication Orders meloxicam 15 mg tablet 2023 024 [facility], [address] [place] [address], [place], [address], 06/18/2024 14:11:51 Patient TargetsNo targets recorded. Patient Instructions Encounter Date Encounter Id Patient Instructions Last Modified By Organization Details Last Modified Time 06/18/2024 [id number] tennis elbow: exercises Not available 06/18/2024 14:11:37 [...] LEFT}} elbow. Not available 06/18/2024 13:55:08 07/07/2024 [id number] {{2 3 4* 5 6 7 8 [...] Organization Details Recorded Time Lateral epicondyli tis 302741827 Active 2023 Oscar Avina MD [address], [place], [address] , [place] [facility], P 14:10:53 Lateral epicondyli tis 405282688 Active 2023 Oscar Avina MD [address], [place], [address] , [place] [facility], P 4 14:11:09 Osteoarthr itis of left hip joint 6417942739116 08 Active 2023 RADHA GONZALEZ PA-C [address], [place], [address] , [place] [facility], P 4 11:06:02 Problem Notes None recorded. [...] SNOMED-CT Code Diagnosis ICD10 Code Diagnosis Note [id number] Oscar Avina MD [facility] [address] [facility] [address] [place] [address] 06/18/2024 13:20:00 06/18/2024 14:16:30 Pain in elbow 47369661 M25.521 Lateral epicondylitis 20 0383198 M77.10 [id number] Clark Andino MD [facility] [address] [place] [address] 07/07/2024 10:17:23 07/07/2024 11:04:15 Hip pain 63438804 M25.552 Osteoarthr itis of left hip joint 1494417412 86011 M16.12 Health Concerns Section Related Observation LastModified by Organization Detai ls LastModified Time None Recorded Concern Status LastModified by Organization Details LastModified Time None Recorded Advance Directives Directive None Recorded Payers Encounter Date Sequence Insurance Name Policy Number Policy Fountain Covered Member ID Fountain Member ID Guarantor Name 06/18/2024 1 [employer] [id number] Glorymar López Colon [id number] Glorymar López-Col on 07/07/2024 1 [employer] [id number] Glorymar López Colon [id number] Glorymar López-Col on Notes Date Note Type [...] 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 She is [id number] . Oscar Avina MD [address], [place], [address], [place] [facility], [facility] 06/18/2024 14:13:14 07/07/2024 text/html 49-year-old fema [...] RADHA GONZALEZ PA-C [address], [place], [address], [place] [facility], [facility] 07/07/2024 11:07:40 OBGyn Episode No OBEpisode recorded.
--- OUTSIDE RECORDS SUMMARY | 2024-09-29 11:52 | XMS_ITS | Clinical Summary ---
Author Organization [facility] Address [address] [place] [address] Care Team Providers Care Hadoop Java Developer Name Role Phone Braulio Lopez MD Primary Care Provider [phone] Allergies Active Allergy Reactions Criticality Noted Date [...] age to complete this topic Care Teams Hadoop Java Developer Relationship Specialty Start Date End Date Braulio Lopez MD [address] [place] [phone] PCP - General Internal Medicine 03/20/22
--- OUTSIDE RECORDS SUMMARY | 2024-09-29 11:52 | XMS_ITS | Encounter Summary ---
Author Organization [employer] [facility] Address [address] [place] [address] [address] Care Team Providers Care Desk Interviewer Name Role Phone Braulio Carbajal MD Primary Care Prov ider Reason for Visit * Reason Comments Med Refill Encounter Details Date Type Department Care Team (Late st Contact Info) Description 10/29/2022 Refill [facility] [address] [place], [place] [phone] Braulio Carbajal MD [address] [place] [address] Social History Tobacco Use Types Packs/Day Years [...] on filedocumented in this encounter Care Teams Desk Interviewer Relationship Specialty Start Date End Date Braulio Carbajal MD [address] [place] [address] PCP - General Internal Medicine 12/14/19 04/28/24 documented as of this encounter
--- OUTSIDE RECORDS SUMMARY | 2024-09-29 11:52 | XMS_ITS | Clinical Summary ---
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 [facility] ? [address] ?[place] [address] ? Mammography Report ? Signed ? Patient: López,Glorymar ?MR#: [id number] ?? [id number] ? : 1975 ?Acct:[id number] ? Age/Sex: 48 / F ?ADM Date: 10/21/24 ? Loc: HO.MAMMO ? Attending Dr: Ryan Prescott MD ? Ordering Physician: Ryan Prescott MD ?Results: 2Ben ?? ign Findings ? Date of Service: 05/25/24 ?Follow Up: 1 Year From Orig ?? inal Mammogram ? Procedure(s): MM tomosynthesis diagnostic BI ?? Accession Number(s): [id number] ? cc: Braulio Carbajal MD; Ryan Prescott [...] DD/ 1300 ? TD/TT: 05/25/24 1350 ? [facility] Supervisor: ? Procedure Note Tari, Image - 05/25/2024 [place] [facility]'[address] [place] [address] Mammography Report Signed Patient: Julia LópezMR#: [id number] : 1975Acct:[id number] Age/Sex: 48 / FADM Date: 05/25/24 Loc: HO.MAMMO Attending Dr: Ryan Prescott MD Ordering Physician: Ryan Prescottults: 2Ben ign Findings Date of Service: 05/25/24Follow Up: 1 Year From Orig inal Mammogram Procedure(s): MM tomosynthesis diagnostic BI Accession Number(s): [id number] cc: Braulio Carbajal MD; Ryan Prescott MD [...] 05/25/24 1609 DD/ 1300 TD/TT: 05/25/24 1350 [facility] Supervisor: [facility] External Provider IMG BI PROCEDURES Edited Result - Final * Lipid Panel, Standard (01/01/2023 10:20 AM EDT) Triglycerides 73 mg/dL [facility] Comment:Desirable Triglyceri de: less than 150 mg/dLBorderline High Triglyceride 150-199 mg/dLHigh Triglyceride: 200-499 mg/dLVery High Triglyceride: greater than or equal to 5OO mg/dL Cholesterol 101 mg/dL [facility] Comment:Desirable Cholestero l: less than 200 mg/dLBorderline High Cholesterol: 200-239 mg/dLHigh Cholesterol: greater than 239 mg/dL LDL Cholesterol Calculated 53 mg/dl [facility] Comment:Desirable LDL: less than 100 mg/dLNear Optimal/Above Optimal LDL: 110- 129 mg/dLBorderline High LDL: 130-159 mg/dLHigh LDL: 160-189 mg/dLVery High LDL: greater than or equal to 190 mg/dL HDL Cholesterol 34 mg/dL [facility] Comment:Desirable HDL: great er than 40 mg/dL Note: This HDL assay may give artificially low results in patients with liver disease. 01/01/2023 10:2 0 AM EDT 01/01/2023 10:20 AM EDT [facility] External Provider LAB BLO OD ORDERABLES Final Result [facility] [address] [place] [address] [phone] * HEPATITIS C AB W/REFL TO HCV RNA, QN, PCR (01/24/2022 8:19 AM EDT) HEPATITIS C ANTIBODY NON-REACT SÁNCHEZ NON-REACT SÁNCHEZ [facility] INDEX 0.02 <1.00 [facility] Comment: ?? HCV antibody was non-reactive. There is no laboratory ?? evidence of HCV infection. ?? In most cases, no further action is required. However, if recent HCV exposure is suspected, a test for HCV RNA (test code 60209) is suggested. ?? For additional information please refer to http://[employer].Flytenow/faq/BXF56z3 (This link is being provided for informational/ educational purposes only.) ?? 01/24/2022 8:19 AM EDT Braulio Campbell MD HISTORICAL/NON ORD ERABLE LABS Final Result Performing Organization Address City/[facility]/ZIP Co de Phone Number [facility] [address] * HIV 1/2 ANTIGEN/ANTIBODY,FOURTH GENERATION W/RFL (01/24/2022 8:19 AM EDT) HIV-1/2 ANTIGEN AND ANTIBODIES, 4TH GENERATION W/ REFLEX NON-REACT SÁNCHEZ NON-REACT SÁNCHEZ [facility] Comment: HIV-1 antigen and HIV-1/HIV-2 [...] ? For additional information please refer to http://[email or web address].Values of n/faq/WIW546 (This link is being provided for informational/ educational purposes only.) ? The performance of this assay has not been clinically validated in patients less than 2 years old. ?? 01/24/2022 8:19 AM EDT us Braulio Campbell MD LAB BLOOD ORDERABL ES Final Result [facility] [address] from Last 3 Months or Most Recently Relevant to Health Maintenance Insurance [employer] [place] [phone]
--- OUTSIDE RECORDS SUMMARY | 2024-09-29 11:52 | XMS_ITS | Clinical Summary ---
Author Organization 175 [facility] Address [address] [place] [address] Phone Care Team Providers Care Pipe Stress Engineer Name Role Phone Braulio Carbajal Primary Care Provide r Allergies Active Allergy Reactions Criticality Noted Date Comments Penicillins 11/11/2012 Medications FREESTYLE LANCETS MISC Use to test blood sugar 4 times a day.DX-250.00 4 Active blood sugar diagnostic (FreeStyle Lite Strips) test strip Use to test blood sugar 4 times a day.DX-250.00 4 Active blood-glucose meter kit Use to check blood sugar 4 times a day.DX-250.00 4 Active NON FORMULARY Take 1 capsule by mouth 1 (one) time each day if needed (stomach cramps). 4 Active atorvastatin (LIPITOR) 20 mg tablet Take 1 tablet (20 mg total) by mouth at bedtime. 4 Active biotin 1 mg tablet Take by mouth. Activ e cholecalciferol , vitamin D3, 75 mcg (3,000 unit) tablet Take by mouth. Ac tive amphetamine-dex troamphetamine (ADDERALL) 20 mg tablet Take 2 tablets (40 mg total) by mouth 1 (one) time each day. In afternoon in addition to 20mg xr In am Max Daily Amount: 40 mg Active diphenoxylate-a tropine (LOMOTIL) 2.5-0.025 mg per tablet Take 1 tablet by mouth if needed for diarrhea. 4 Active fluticasone propionate (FLONASE) 50 mcg/actuation nasal spray Administer 1 spray into affected nostril(s) 1 (one) time each day. 3 Active insulin glargine (LANTUS) 100 unit/mL injection Inject 40 Units under the skin at bedtime. Active insulin lispro (HumaLOG U-100 Insulin) 100 unit/mL injection Inject 20 Units under the skin 3 (three) times a day before meals. 5 Active LORazepam (ATIVAN) 1 mg tablet Take 1 tablet (1 mg total) by mouth every 6 (six) hours if needed. Max Daily Amount: 4 mg Active metFORMIN XR (GLUCOPHAGE-XR) 500 mg 24 hr tablet Take 1 tablet (500 mg total) by mouth 2 (two) times a day. 4 Active omeprazole (PriLOSEC) [address] capsule Take 1 capsule (20 mg total) by mouth 1 (one) time each day. 3 Active ondansetron (ZOFRAN) 4 mg tablet Take 1 tablet (4 mg total) by mouth every 6 (six) hours if needed for nausea. 4 Active sertraline (ZOLOFT) 100 mg tablet Take 1 tablet (100 mg total) by mouth 2 (two) times a day. 4 Active ergocalciferol (VITAMIN D-2) 1,250 mcg (50,000 unit) capsule Take 1 capsule (50,000 Units total) by mouth 1 (one) time per week. 12 each 4 07/24/20 25 Active Active Problems Problem Noted Date Diagnosed [...] Encounters Date Type Department Care Team Description 09/14/2024 9:30 AM EST Nutrition Bariatric Surgery - [address] [phone] Class 3 severe obesity with serious comorbidity and body mass index (BMI) of 50.0 to 59.9 in adult, unspecified obesity type (CMS/HCC) (Primary Dx) 07/20/2024 9:00 AM EST Consult Bariatric Surgery - [address] [place] [address] Class 3 severe obesity with serious comorbidity and body mass index (BMI) of 50.0 to 59.9 in adult, unspecified obesity type (CMS/HCC) (Primary Dx) 07/20/2024 8:35 AM EST Lab Draw Station - [address] [place] [address] [address] [place] [address] Morbid obesity (CMS/HCC) 07/08/2024 1:00 PM EST Office Visit Bariatric Surgery - [address] [phone] Gosia Stoner MD Morbid obesity (CMS/HCC) (Primary Dx); Sleep apnea, unspecified type from Last 3 Months Immunizations Name Administration Dates Next Due Tdap Tetanus diptheria acell ular pertussis (Boostrix; Adacel) 7yo and older 12/11/2012 Surgical History Surgery Date Site/Laterality Comments CHOLECYSTECTOMY 1999 PROCEDURE: HISTORICAL CHOLECYSTECTOMY Medical History Medical History Date Comments HTN (hypertension) 2011 DX:HTN (hyper tension) DM (diabetes mellitus) (CMS/HCC) 2006 DX:DM (diabetes mellitus) ([facility]) IBS (irritable bowel syndrome) 1993 D X:IBS (irritable bowel syndrome) Depression 04/2012 [...] Assigned at Female 07/01/2024 1:41 PM EST Legal Sex Female 1:01 PM EST Gender Identity Female 07/01/2024 1:41 PM EST Sexual Orientation Not on file Obstetrics History Last Filed Vital Signs Vital Sign Reading Time Taken Comments Blood Pressure 148/83 07/08/2024 1:01 PM EST Pulse 101 07/08/2024 1:01 PM EST Temperature 36.7 ??C (98.1 ??F) 07/08/2024 1:01 PM ES T Respiratory Rate - - Oxygen Saturation - - Inhaled Oxygen Concentration - - Weight 157 kg (346 lb) 09/14/2024 9:22 AM EST Height 175.3 cm (5' 9 ) 07/08/2024 1:01 PM EST Body Mass Index 51.1 07/08/2024 1:01 PM EST Plan of Treatment Upcoming Encounters Date Type Department Care Team (Late st Contact Info) Description 10/12/2024 10:00 AM EDT Nutrition Bariatric Surgery - [place] 175 [facility] [address] [place] [phone] Prema Wallis, RD [address] [address] Health Maintenance Due Date Last Done Comments [...] 07/20/2029 07/20/2024, 01/01/2023, 02/26/2014 DTaP,Tdap,and Td Vaccines (4 - Td or Tdap) 03/15/2032 03/15/2022, 12/11/2012, 08/05/2012 HIV Screening Completed 01/24/2022 Influenza Vaccine Completed [...] patient's age to complete this topic Meningococcal B Vacine Aged Out No lo nger eligible based on patient's age to complete [...] 8:33 AM EST Morbid obesity (CMS/HCC) INSULIN, TOTAL Routine 07/20/2024 8:33 AM EST Morbid obesity [...] mg/dL LAB CHEMISTRY METHOD 07/20/2024 11:24 AM [facility] Triglycerides 89 0 - 150 mg/dL LAB CHEMISTRY METHOD 07/20/2024 11:24 AM [facility] HDL 53 >=40 mg/dL LAB CHEMISTRY METHOD 07/20/2024 11:24 AM [facility] LDL Calculated 108(H) 0 - 100 mg/dL LAB CHEMISTRY METHOD 07/20/2024 11:24 AM [facility] VLDL Cholesterol Francisco J 17.8 mg/dL LAB CHEMISTRY METHOD 07/20/2024 11:24 AM [facility] Non HDL Chol. (LDL+VLDL) 126 <145 mg/dL LAB CHEMISTRY METHOD 07/20/2024 11:24 AM [facility] Chol/HDL Ratio 3.4 0.0 - 4.4 LAB CHEMISTRY METHOD 07/20/2024 11:24 AM [facility] Blood Venous blood specimen / Unknown Venipuncture / Unknown 07/20/2024 8:33 AM EST 07/20/2024 8:33 AM EST us Gosia Stoner MD LAB BLOOD ORDERABLES Fi nal Result [facility] [address] [place] [address], * Nicotine and cotinine (07/20/2024 8:33 AM EST) [facility] Signature Nicotine <2.0 <2.0 ng/mL 07/23/2024 6:05 AM EST [facility] Cotinine <2.0 <2.0 ng/mL 07/23/2024 6:05 AM EST [facility] Comment: ?Additional Reference Ranges: ? Active Tobacco ? Passive ? Abstinence ?User ?Exposure ?? 2 Weeks and more ? Nicotine ?30 - 50 ??ng/mL ?<2 ng/mL ?<2 ng/mL Cotinine ?? 200 - 800 ng/mL ?<8 ng/mL ?<2 ng/mL Reference Ranges from: ??Clin. Chem.; ??[id number] (2002) Direct any interpretive questions to the toxicology laboratory. This is for medical use only, it is not intended for forensic use. If applicable, any drug confirmation testing reported here was developed and the performance characteristics determined by [facility]. This confirmation testing has not been cleared or approved by the FDA. The laboratory is regulated under CLIA as qualified to perform high-complexity testing. This test is used for patient testing purposes. It should not be regarded as investigational or for research. Test performed at [facility], [facility] [address] [place], [place] ??[address] ? [phone] Vida Aguilar MD, PhD - Developer Support Engineer Blood Venous blood specimen / Unknown Venipuncture / Unknown 07/20/2024 8:33 AM EST 07/20/2024 8:33 AM EST us Gosia Stoner MD LAB BLOOD ORDERABLES Fi nal Result [place] [address] * (ABNORMAL) CBC auto differential (07/20/2024 8:33 AM EST) WBC 9.5 4.8 - 10.8 K/mcL LAB HEMETOLOGY METHOD 07/20/2024 10:07 AM [facility] RBC 4.80 3.80 - 4.80 M/mcL LAB HEMETOLOGY METHOD 07/20/2024 10:07 AM [facility] Hemoglobin 13.5 11.5 - 16.0 g/dL LAB HEMETOLOGY METHOD 07/20/2024 10:07 AM [facility] Hematocrit 43.1 35.0 - 47.0 % LAB HEMETOLOGY METHOD 07/20/2024 10:07 AM [facility] MCV 89.2 79.0 - 98.0 FL LAB HEMETOLOGY METHOD 07/20/2024 10:07 AM [facility] MCH 28.0 27.0 - 32.0 pcg LAB HEMETOLOGY METHOD 07/20/2024 10:07 AM [facility] MCHC 31.3(L) 32.0 - 37.0 g/dL LAB HEMETOLOGY METHOD 07/20/2024 10:07 AM [facility] RDW 14.3 11.0 - 15.0 % LAB HEMETOLOGY METHOD 07/20/2024 10:07 AM [facility] Platelets 370 130 - 400 K/mcL LAB HEMETOLOGY METHOD 07/20/2024 10:07 AM [facility] MPV 9.2 7.0 - 11.0 FL LAB HEMETOLOGY METHOD 07/20/2024 10:07 AM [facility] NRBC 0.0 <1.0 % LAB HEMETOLOGY METHOD 07/20/2024 10:07 AM [facility] NRBC Absolute 0.00 <0.10 K/mcL LAB HEMETOLOGY METHOD 07/20/2024 10:07 AM [facility] Neutrophils Relative 55.9 % LAB HEMETOLOGY METHOD 07/20/2024 10:07 AM [facility] Lymphocytes Relative 32.1 % LAB HEMETOLOGY METHOD 07/20/2024 10:07 AM [facility] Monocytes Relative 6.9 % LAB HEMETOLOGY METHOD 07/20/2024 10:07 AM [facility] Eosinophils Relative 2.8 % LAB HEMETOLOGY METHOD 07/20/2024 10:07 AM [facility] Basophils Relative 0.7 % LAB HEMETOLOGY METHOD 07/20/2024 10:07 AM [facility] Immature Granulocytes Relative 1.6 % LAB HEMETOLOGY METHOD 07/20/2024 10:07 AM [facility] Neutrophils Absolute 5.31 1.50 - 7.00 K/mcL LAB HEMETOLOGY METHOD 07/20/2024 10:07 AM [facility] Lymphocytes Absolute 3.06 1.00 - 5.00 K/mcL LAB HEMETOLOGY METHOD 07/20/2024 10:07 AM [facility] Monocytes Absolute 0.66 0.20 - 1.00 K/mcL LAB HEMETOLOGY METHOD 07/20/2024 10:07 AM [facility] Eosinophils Absolute 0.27 0.00 - 0.50 K/mcL LAB HEMETOLOGY METHOD 07/20/2024 10:07 AM EST [facility] Basophils Absolute 0.07 0.00 - 0.20 K/[facility] LAB HEMETOLOGY METHOD 07/20/2024 10:07 AM [facility] Immature Granulocytes Absolute 0.15(H) 0.00 - 0.03 K/[facility] LAB HEMETOLOGY METHOD 07/20/2024 10:07 AM EST [facility] Blood Venous blood specimen / Unknown Venipuncture / Unknown 07/20/2024 8:33 AM EST 07/20/2024 8:33 AM EST us Gosia Stoner MD LAB BLOOD ORDERABLES Fi nal Result Performing Organization Address [facility]/ZIP Co de Phone Number [facility] [address] [place] [address], [place] [phone] * (ABNORMAL) Iron and TIBC (07/20/2024 8:33 AM EST) Iron 52 40 - 150 mcg/dL LAB CHEMISTRY METHOD 07/20/2024 11:24 AM [facility] TIBC 244(L) 250 - 450 mcg/dL LAB CHEMISTRY METHOD 07/20/2024 11:24 AM [facility] Iron Saturation 21 15 - 50 % LAB CHEMISTRY METHOD 07/20/2024 11:24 AM [facility] Blood Venous blood specimen / Unknown Venipuncture / Unknown 07/20/2024 8:33 AM EST 07/20/2024 8:33 AM EST us Gosia Stoner MD LAB BLOOD ORDERABLES Fi nal Result Performing Organization Address [facility]/ZIP Co de Phone Number [facility] [address] [place] [address], [place] [phone] * (ABNORMAL) Insulin, fasting (07/20/2024 8:33 AM EST) Pathologist [facility] Insulin 33.8(H) 3.0 - 25.0 mcIU/mL LAB CHEMISTRY METHOD 07/20/2024 10:40 AM EST [facility] Blood Venous blood specimen / Unknown Venipuncture / Unknown 07/20/2024 8:33 AM EST 07/20/2024 8:33 AM EST Narrative [facility] - 07/20/2024 10:40 AM EST Insulin reference range based on fasting status. ??Insulin values vary in non- fasting individuals. us Gosia Stoner MD LAB BLOOD ORDERABLES Fi nal Result Performing Organization Address City/[facility]/ZIP Co de Phone Number [facility] [address] [place] [address], [place] [phone] * Helicobacter pylori breath test (07/20/2024 8:33 AM EST) [facility] H Pylori Breath Test Negative Negative LAB CHEMISTRY METHOD 07/20/2024 2:18 PM EST [facility] Breath Oral cavity structure / Unknown Non-blood Collection / Unknown 07/20/2024 8:33 AM EST 07/20/2024 8:33 AM EST us Gosia Stoner MD LAB BODY FLUIDS AND STO OLS ORDERABLES Final Result [facility] [address] [place] [address], [place] [phone] * (ABNORMAL) Vitamin D 25 hydroxy (07/20/2024 8:33 AM EST) [facility] Vit D, 25-Hydroxy 14.2(L) 30.0 - 80.0 ng/mL LAB CHEMISTRY METHOD 07/20/2024 10:38 AM EST [facility] Blood Venous blood specimen / Unknown Venipuncture / Unknown 07/20/2024 8:33 AM EST 07/20/2024 8:33 AM EST us Gosia Stoner MD LAB BLOOD ORDERABLES Fi nal Result Performing Organization Address [facility]/ZIP Co de Phone Number [facility] [address] [place] [address], [place] [phone] * (ABNORMAL) Uric acid (07/20/2024 8:33 AM EST) Uric Acid 2.2(L) 3.1 - 7.8 mg/dL LAB CHEMISTRY METHOD 07/20/2024 11:24 AM EST [facility] Blood Venous blood specimen / Unknown Venipuncture / Unknown 07/20/2024 8:33 AM EST 07/20/2024 8:33 AM EST us Gosia Stoner MD LAB BLOOD ORDERABLES Fi nal Result Performing Organization Address [facility]/ZIP Nh de Phone Number [facility] [address] [place] [address], [place] [phone] * Thyroid stimulating hormone (07/20/2024 8:33 AM EST) Pathologist [facility] TSH 1.99 0.40 - 4.00 mcIU/mL LAB CHEMISTRY METHOD 07/20/2024 10:38 AM EST [facility] Blood Venous blood specimen / Unknown Venipuncture / Unknown 07/20/2024 8:33 AM EST 07/20/2024 8:33 AM EST us Gosia Stoner MD LAB BLOOD ORDERABLES Fi nal Result Performing Organization Address City/[facility]/ZIP Co de Phone Number [facility] [address] [place] [address], [place] [phone] * Vitamin B1 (07/20/2024 8:33 AM EST) [facility] Vitamin B1 Whole Blood 57 38 - 122 ug/L 07/23/2024 8:04 AM EST [facility] Comment: This test was developed and the performance characteristics determined by [facility]. It has not been cleared or approved by the FDA. The laboratory is regulated under CLIA as qualified to perform high-complexity testing. This test is used for patient testing purposes. It should not be regarded as investigational or for research. Test performed at [facility], [address] , [place], [place] ??[address] ? [phone] Vida Aguilar MD, PhD - Developer Support Engineer Blood Venous blood specimen / Unknown Venipuncture / Unknown 07/20/2024 8:33 AM EST 07/20/2024 8:33 AM EST us Gosia Stoner MD LAB BLOOD ORDERABLES Fi nal Result [facility] [address] [place] [address] * Magnesium (07/20/2024 8:33 AM EST) [facility] Magnesium 2.2 1.9 - 2.6 mg/dL LAB CHEMISTRY METHOD 07/20/2024 10:41 AM EST [facility] Blood Venous blood specimen / Unknown Venipuncture / Unknown 07/20/2024 8:33 AM EST 07/20/2024 8:33 AM EST us Gosia Stoner MD LAB BLOOD ORDERABLES Fi nal Result [facility] [address] [place] [address], * (ABNORMAL) Hemoglobin A1c (07/20/2024 8:33 AM EST) [facility] Hemoglobin A1C 7.9(H) <6.5 % LAB CHEMISTRY METHOD 07/20/2024 2:41 PM EST [facility] Mean Bld Glu Estim. 180 mg/dL LAB CHEMISTRY METHOD 07/20/2024 2:41 PM EST [facility] Blood Venous blood specimen / Unknown Venipuncture / Unknown 07/20/2024 8:33 AM EST 07/20/2024 8:33 AM EST us Gosia Stoner MD LAB BLOOD ORDERABLES Fi nal Result [facility] [address] [place] [address], [place] [phone] * Folate (07/20/2024 8:33 AM EST) Folate 8.2 2.8 - 17.0 ng/ml LAB CHEMISTRY METHOD 07/20/2024 11:24 AM EST [facility] Blood Venous blood specimen / Unknown Venipuncture / Unknown 07/20/2024 8:33 AM EST 07/20/2024 8:33 AM EST us Gosia Stoner MD LAB BLOOD ORDERABLES Fi nal Result Performing Organization Address City/[facility]/ZIP Co de Phone Number [facility] [address] [place] [address], [place] [phone] * Ferritin (07/20/2024 8:33 AM EST) Ferritin 113 8 - 252 ng/mL LAB CHEMISTRY METHOD 07/20/2024 11:24 AM EST [facility] Blood Venous blood specimen / Unknown Venipuncture / Unknown 07/20/2024 8:33 AM EST 07/20/2024 8:33 AM EST us Gosia Stoner MD LAB BLOOD ORDERABLES Fi nal Result [facility] [address] [place] [address], [place] [phone] * Vitamin B12 (07/20/2024 8:33 AM EST) [facility] Vitamin B-12 391 250 - 900 pcg/mL LAB CHEMISTRY METHOD 07/20/2024 11:24 AM EST [facility] Blood Venous blood specimen / Unknown Venipuncture / Unknown 07/20/2024 8:33 AM EST 07/20/2024 8:33 AM EST Gosia Stoner MD LAB BLOOD ORDERABLES Fi nal Result [facility] [address] [place] [address], [place] [phone] * Cortisol (07/20/2024 8:33 AM EST) [facility] Cortisol 15.1 mcg/dL LAB CHEMISTRY METHOD 07/20/2024 10:40 AM EST [facility] Blood Venous blood specimen / Unknown Venipuncture / Unknown 07/20/2024 8:33 AM EST 07/20/2024 8:33 AM EST Narrative [facility] - 07/20/2024 10:40 AM EST CORTISOL REFERENCE RANGE ?? 8 AM SPEC: ??5.0-23.0 mcg/dL ?? 4 PM SPEC: ??3.0-16.0 mcg/dL ?? 8 PM SPEC: ??<5.0 mcg/dL Gosia Stoner MD LAB BLOOD ORDERABLES Fi nal Result [facility] [address] [place] [address], [place] [phone] * (ABNORMAL) Comprehensive metabolic panel (07/20/2024 8:33 AM EST) [facility] Sodium 136 133 - 145 mmol/L LAB CHEMISTRY METHOD 07/20/2024 11:24 AM [facility] Potassium 4.5 3.5 - 5.5 mmol/L LAB CHEMISTRY METHOD 07/20/2024 11:24 AM [facility] Chloride 100 96 - 110 mmol/L LAB CHEMISTRY METHOD 07/20/2024 11:24 AM [facility] CO2 25 21 - 32 mmol/L LAB CHEMISTRY METHOD 07/20/2024 11:24 AM [facility] Anion Gap 11 3 - 11 LAB CHEMISTRY METHOD 07/20/2024 11:24 AM [facility] Glucose 148(H) 70 - 100 mg/dL LAB CHEMISTRY METHOD 07/20/2024 11:24 AM [facility] BUN 15 5 - 25 mg/dL LAB CHEMISTRY METHOD 07/20/2024 11:24 AM [facility] Creatinine 0.71 0.50 - 1.10 mg/dL LAB CHEMISTRY METHOD 07/20/2024 11:24 AM [facility] eGFR 105 >=60 mL/min/1. 73m2 LAB CHEMISTRY METHOD 07/20/2024 11:24 AM [facility] Comment:Calculation based on the??Chronic Kidney Disease Epidemiology Collaboration (CKD-EPI) equation refit??without adjustment for race. BUN/Creatinine Ratio 21.1 LAB CHEMISTRY METHOD 07/20/2024 11:24 AM [facility] Calcium 9.7 8.5 - 10.5 mg/dL LAB CHEMISTRY METHOD 07/20/2024 11:24 AM [facility] AST (SGOT) 16 10 - 42 unit/L LAB CHEMISTRY METHOD 07/20/2024 11:24 AM [facility] ALT (SGPT) 29 10 - 60 unit/L LAB CHEMISTRY METHOD 07/20/2024 11:24 AM [facility] Alkaline Phosphatase 124(H) 42 - 121 unit/L LAB CHEMISTRY METHOD 07/20/2024 11:24 AM EST [facility] Total Protein 7.7 6.0 - 8.0 g/dL LAB CHEMISTRY METHOD 07/20/2024 11:24 AM EST [facility] Albumin 3.6 3.2 - 5.0 g/dL LAB CHEMISTRY METHOD 07/20/2024 11:24 AM EST [facility] Total Bilirubin 0.4 0.0 - 1.4 mg/dL LAB CHEMISTRY METHOD 07/20/2024 11:24 AM EST [facility] Blood Venous blood specimen / Unknown Venipuncture / Unknown 07/20/2024 8:33 AM EST 07/20/2024 8:33 AM EST Gosia Stoner MD LAB BLOOD ORDERABLES Fi nal Result [facility] [address] [place] [address], * Urine Albumin Creatinine Ratio (02/26/2014) Urine Albumin Creatinine Ratio Abstracted Historical Provider HEALTH MAINTENANCE Final Result from Last 3 Months or Most Recently Relevant to Health Maintenance Insurance [employer] Care Teams Pipe Stress Engineer Relationship Specialty Start Date End Date Braulio Carbajal [address], [place] PCP - General Internal Medicine 03/20/22
--- OUTSIDE RECORDS SUMMARY | 2024-09-29 11:52 | XMS_ITS ---
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 Name Role Phone Jeremy Saldivar [phone] ALLERGIES, ADVERSE REACTIONS, ALERTS Substance Code Code System Type Reaction Severity Status Start Date End Date Penicillins RxNorm Drug allergy () 0 MEDICATIONS Medication Code Code System Start Date Stop Date Route Dosage Directions Fill Instructions atorvastatin calcium RxNorm 08/30/19 24 doxycycline hyclate 0973562 RxNorm 08/19/19 25 oral 1 ipratropium-al buterol 9230301 RxNorm 5 inhalation 3 albuterol sulfate 141217 RxNorm 08/19/19 25 inhalation 3 prednisone 739248 RxNorm 5 oral 2 Zithromax 883558 RxNorm 5 oral 1 minoxidil RxNorm 4 benzonatate 257655 RxNorm 5 oral 1 lisinopril RxNorm 08/30/19 24 gabapentin RxNorm 03/17/20 24 albuterol sulfate 0867665 RxNorm 5 inhalation 2 fluoxetine HCl RxNorm 05/04/20 24 bupropion HCl RxNorm 05/04/20 24 Vyvanse RxNorm 04/14/20 24 Jardiance RxNorm 04/20/20 24 Tresiba FlexTouch U-200 RxNorm 024 Mounjaro RxNorm 04/20/20 24 PROBLEMS Problem Name Code Code System Start Date End Date Stat Essential (primary) hypertension 90821267 [facility] Active Pure hypercholesterolemia, unspecified 89203970 [facility] Active Other specified diabetes mellitus 06251604 [facility] Active Depression, unspecified 86952022 [facility] Active Anxiety disorder, unspecified 59092436 [facility] Active Attention-deficit hyperactivity disorder, unspecified type 658765254 [facility] Active Pain, unspecified 31235854 [facility] Ac tive Pain, not elsewhere classified 70041792 [facility] Active Lateral epicondylitis, right elbow 414533985625727 [facility] 06/04/2024 Active Acute cough 33703345 [facility] 08/13/2024 Active Acute bronchitis, unspecified 71844558 [facility] 08/13/2024 Active Acute upper respiratory infection, unspecified 843832705 [facility] 08/19/2024 Activ e Nasal congestion 77900734 [facility] 08/19/2024 Act tanner Acute bronchospasm 40716745531982 [facility] 08/19/2024 Active Unspecified bacterial pneumonia 73255394 [facility] 08/19/2024 Active Subacute cough 12053525 [facility] 09/07/[address] [facility] Active ENCOUNTERS Encounter Diagnosis Code Code System Date Stat us Subacute cough 86931022 [facility] 09/07/2024 [facility]65486382 [facility] Active Essential (primary) hypertension 78399936 [facility] 09/07 Active IMMUNIZATIONS * None VITAL SIGNS Code Code System Vitals Name Date Value and Un its 8462-4 [facility] Blood Pressure-Diastolic 09/07/2024 104 mmHg 8480-6 [facility] Blood Pressure-Systolic 09/07/2024 1 51 mmHg 8867-4 [facility] Heart Rate 09/07/2024 94 /min 9279-1 [facility] Respiratory Rate 09/07/2024 20 /min 8310-5 [facility] Body Temperature 09/07/2024 97.9 F 23264-8 [facility] Oxygen Saturation 09/07/2024 94 % SOCIAL HISTORY * None PROCEDURES * None MEDICAL EQUIPMENT * Patient has no history of implantable devices ASSESSMENT Assessment Take the prednisone as presc ribed.Use the albuterol nebulizer or inhaler every 4-6 hours as needed for cough/wheezing.The cough can sometimes take a few weeks to resolve.If you develop a fever or worsening symptoms please be reevaluated.If the cough does not resolve after 8 weeks please see your primary care doctor TREATMENT PLAN Type Description Date MEDICATION Take 90 mcg/actuation HFA Aeroso l Inhaler 09/07/2024 MEDICATION Take 0.5 mg-3 mg(2.5 mg base)/3 mL Solution for Nebulization 09/07/2024 MEDICATION Take 20 mg tablet 09/07/2024 APPOINTMENT If not feeling smita r in 3 day(s), please see your primary care physician. If you do not have a primary care physician, please return to this clinic. 09/07/2024 Lab Tests None GOALS * None HEALTH CONCERNS * No Health Concerns FUNCTIONAL AND COGNITIVE STATUS * None CONSULTATION NOTES * None DISCHARGE SUMMARY NOTES * None HISTORY AND PHYSICAL NOTES * Reason for visit - Illness Patient: HENNY CLARK, Sex: F (ID# [id number]) Date of : 1975 (49 years) Visit on 09/07/2024 (Log# [id number]) Historian: Self Triage Notes: Pt reports they completed treatment, symptoms persist. 09/07/2024 pt reports exact same thing, pt reports taking otc medicine with no help History of Present Illness: Patient here for repeat evaluation. Patient was previously evaluated for a persistent cough after reportedly being treated with azithromycin for pneumonia. She had an x-ray here that demonstrated bronchitis. Based on review of the note it seems there is clinical concern for pneumonia and therefore she was switched to doxycycline. She states she continues to have cough. She feels that she is having wheezing. No fevers chills sweats nausea vomiting diarrhea or muscle aches. Complaint: Patient came in for a follow-up of cough of the chest which was originally seen on 08/13/2024. Original Onset was 9 days ago. Their last follow-up visit for this was on 08/19/2024. It has the following quality: nonproductive. The patient also reports congestion and nasal congestion as abnormal symptoms related to the complaint. Context - Initial History: The patient reports it was not the result of an injury. Review of Systems: The patient complains of the following recent symptoms: ENT and Mouth: nasal congestion Respiratory: congestion cough: See HPI The patient denies the following recent symptoms: Constitutional: denies fever, chills Respiratory: denies wheeze, shortness of breath Allergies: Penicillins: Drug allergy. Medications: atorvastatin calcium: atorvastatin calcium 40 mg tablet; Total Qty: 90 (ninety) Tablet; 0 refill(s); LACI; doxycycline hyclate: doxycycline hyclate 100 mg capsule; Take 1 capsule (oral) 2 times per day for 10 days; Total Qty: 20 (twenty) capsule; 0 refill(s); Substitutions allowed; Earliest Fill Date: 08/19/2024 albuterol sulfate: albuterol sulfate 2.5 mg /3 mL (0.083 %) Solution for Nebulization; Take 3 mL (inhalation) every 4 hours for 7 days (PRN - shortness of breath or wheezing); Total Qty: 150 (one hundred and fifty) milliliter; 0 refill(s); Substitutions allowed; Earliest Fill Date: 08/19/2024 Zithromax: Zithromax 250 mg tablet; Take 1 [...] Active) Lateral epicondylitis, right elbow (status Active) Acute cough (status Active) Acute bronchitis, unspecified (status Active) Acute upper respiratory infection, unspecified (status Active) Nasal congestion (status Active) Acute bronchospasm (status Active) Unspecified bacterial pneumonia (status Active) Surgeries: patient specifies no surgeries Social History: Tobacco Use: denies Alcohol: denies Street / Unprescribed Drugs: denies Vitals: 02:16 PM (09/07/2024)Temperature: 97.9 ?F, Pulse: 94 BPM, BP: 157/107, Respirations: 20/min, O2 Saturation: 94%, O2 Delivery: RAFirst entered 09/07/2024 14:16 by Ike FongLast edited 09/07/2024 14:19 by Ike Fong 02:19 PM (09/07/2024)BP: 151/104First entered 09/07/2024 14:19 by Ike Irvin Physical Exam: The following exam elements were documented to be normal: General: well developed, well nourished, and in no apparent distress. General: Well appearing, no acute distress HEENT: - NC/AT - no conjunctival injection or scleral icterus CV: RRR, no mgr Lungs: Minor expiratory wheezing MSK: Moving all extremities Neuro: Awake and alert x3, no focal deficits Diagnoses: Subacute cough (R05.2) Wheezing (R06.2) Essential (primary) hypertension (I10) Medication Orders: Prescribed: albuterol sulfate 90 mcg/actuation HFA Aerosol Inhaler; Take 2 puff (inhalation) every 4 to 6 hours for 14 Days (PRN - shortness of breath or wheezing); Total Qty: 1 (one) Unspecified; 0 refill(s); Substitutions allowed; Earliest Fill Date: 09/07/2024ePrescribed at 2:28 PM on 09/07/2024y IDALMIS Shell-CPrescription [id number] (P: [phone] F: [phone]) [address] [place] [address] Prescribed: ipratropium-albuterol 0.5 mg-3 mg(2.5 mg base)/3 mL Solution for Nebulization; Take 3 mL (inhalation) every 4 hours for 15 days (PRN - Wheezing); Total Qty: 1 (one) unspecified; 0 refill(s); Substitutions allowed; Earliest Fill Date: 09/07/2024ePrescribed at 2:28 PM on 09/07/2024 by IDALMIS Shell- CPrescription [id number] (P: [phone] F: [phone]) [address] [place] [address] Prescribed: prednisone 20 mg tablet; Take 2 tablet (oral) daily for 5 days; Total Qty: 10 (ten) tablet; 0 refill(s); Substitutions allowed; Earliest Fill Date: 09/07/2024ePrescribed at 2:28 PM on 09/07/2024 by CHANTALE Shell CPrescription sent to [id number] (P: [phone] F: [phone]) [address] [place] [address] Plan: If not feeling better in 3 day(s), please see your primary care physician. If you do not have a primary care physician, please return to this clinic. Take the prednisone as prescribed. Use the albuterol nebulizer or inhaler every 4-6 hours as needed for cough/wheezing. The cough can sometimes take a few weeks to resolve. If you develop a fever or worsening symptoms please be reevaluated. If the cough does not resolve after 8 weeks please see your primary care doctor Medical Decision Making Notes: Patient likely with persistent cough in the setting of a viral bronchitis/reactive airways. Patienthas a nebulizer at home but no solution. Will send DuoNeb, albuterol inhaler that she can use when out and about if needed, and prednisone. Patient noted to be hypertensive today. Discussed need for ongoing blood pressure observations given the increase at today's visit. Will continue her current medications as at her prior visits it was more well-controlled. Visit discharged at 09/07/2024 2:28:42 PM by Jeremy Saldivar PA-C Signed electronically by Jeremy Saldivar PA-C on 09/07/2024 4:00:08 PM IMAGING NOTES * None LABORATORY REPORT NARRATIVE NOTES * None PATHOLOGY REPORT NARRATIVE NOTES * None PROGRESS NOTES * None
--- OUTSIDE RECORDS SUMMARY | 2024-09-29 11:52 | XMS_ITS | Data Portability ---
Author Organization [place] - [facility],, ADRIANA LARA MD Address [address] [address] Assessment No assessment recorded. Plan of Treatment Reminders Order Date Submit Date Provider Last Modified By Organization Details Last Modified Time Details Appointments None recorded. Lab pap test, thinprep, cervical 2021 022 [email or web address] [facility], Cytopathology Service, [address] [place] [address], [address], 2 07:36:24 fecal occult blood, stool 2021 022 [email or web address] In-Office Order, Internal Use Only DO Not Attach Compendium DO Not Attach Compendium, Do Not Delete/merge, [id number] 2 11:34:07 pap test, thinprep, cervical 2020 021 [email or web address] [facility], Cytopathology Service, [address] [place] [address], [address], 1 07:14:16 fecal occult blood, stool 2020 021 [email or web address] 1 In-Office Order, Internal Use Only DO Not Attach Compendium DO Not Attach Compendium, Do Not Delete/merge, [id number] 1 13:58:54 pap test, thinprep, cervical 2019 020 [email or web address] [facility], Cytopathology Service, [address] [place] [address], [address], 0 08:59:10 fecal occult blood, stool 2019 020 [email or web address] In-Office Order, Internal Use Only DO Not Attach Compendium DO Not Attach Compendium, Do Not Delete/merge, [id number] 0 08:59:10 pap test, thinprep, cervical 2018 019 [facility] Pathology [facility], Cytopathology Service, [address] [place] [address], [address], 9 04:32:23 fecal occult blood, stool 2018 019 [email or web address] In-Office Order, Internal Use Only DO Not Attach Compendium DO Not Attach Compendium, Do Not Delete/merge, [id number] 9 07:31:20 pap test, thinprep, cervical 2014 015 [facility] Path[facility], Cytopathology Service, [address] [place] [address], [address], 5 12:26:29 chlamydia sp, culture, unspecifi ed specimen 2014 015 [facility] Path[facility], Cytopathology Service, [address] [place] [address], [address], 5 08:24:20 NG DNA, PCR, genital 2014 015 [facility] Pathology [facility], Cytopathology Service, [address] [place] [address], [address], 5 08:24:20 test, urine 2014 015 [email or web address] 1 In-Office Order, Internal Use Only DO Not Attach Compendium DO Not Attach Compendium, Do Not Delete/merge, [id number] 5 11:43:08 Referral None recorded. Procedures None recorded. Surgeries None recorded. Imaging MAMMO, screening , digital, bilateral 2021 022 [facility] Orders, [address], [address], [place], [address], 4 07:16:34 MAMMO, screening , digital, bilateral 2020 021 [facility] Orders, [address], [address], [place], [address], 2 07:36:18 MAMMO, screening , digital, bilateral 2019 020 [facility] (Mammography), [address] [facility], [place], [address], 1 07:41:40 MAMMO, screening , digital, bilateral 2018 019 [facility] Orders, [address], [place], [address], 0 07:25:26 Medication Orders None recorded. Patient TargetsNo targets recorded. Patient Instructions Encounter Date Encounter Id Patient Instructions Last Modified By Organization Details Last Modified Time 12/07/2014 [id number] She is here for annual exam. Her [...] irregular every 4 to 6 weeks, no [id number] no for 6 weeks, check u preg, [...] in detail. Not available 12/07/2014 11:43:09 09/01/2018 [id number] She is here for annual exam. She has not been here since 2014. She was [place] [facility] [place] but they gave up on theat and put in a Mirena 2 years ago. No menses. Her diabetes has been Bad. In 07/2016 she started a process to do bariatric surgery at [facility]. She went through all the counseling [...] latest A1C was 10, in 06/18, the [facility] [place] referred her to endocrinology in 06/18, [...] well. Advised to follow up with her archives specialist about her diabetes. She is going back [...] questions answered. Not available 09/01/2018 10:07:54 09/08/2019 [id number] She is here for annual exam, her weight is stable at 367 pounds. Her was in the ICU for 4 weeks due to sepsis, he is better now though. She had a Mirena placed 3 years ago, no menses. note form 2019: She is here for annual exam. She has not been here since 2014. She was seeing [facility] [place] but they gave up on theat and put in a Mirena 2 years ago. No menses. Her diabetes has been Bad. In 07/2016 she started a process to do bariatric surgery at [facility]. She went through all the counseling [...] get the date of IUD insertion at [facility] [place] us so that we know when [...] detail. rebecca Not available 09/08/2019 15:23:23 04/04/2021 [id number] learning about healthy weight rebecca Not available 04/04/2021 13:58:54 She is here for annual exam, weight is 391 pounds, BMI is 58.6. She had a Mirena inserted 08/2016. No menses. Her mother earlier this year due to natural causes, in [place], she is still grieving. She and her are , she wanted to go to couples counseling but he would only go in [place] and they could not find a holy cross [place] speaking counselor. Note from 2019: She is [...] a process to do bariatric surgery at [facility]. She went through all the counseling ,etc, but things fell through the cracks. She is considering going back again. she had weighted more than 400 pounds last year, she lost some weight this past year with diet and exercise but still weighs 366 pounds today. She appears to be doing well. She and I discussed having her go back to [facility] to get back into their weight [...] breast. [email or web address] Not available 04/04/2021 14:00:20 04/17/2022 [id number] learning about healthy weight Not available 04/17/2022 [...] this year due to natural causes, in [place], she is still grieving. She and her are , she wanted to go to couples counseling but he would only go in [place] and they could not find a holy cross [place] speaking counselor. She appears to be doing [...] DO Not Attach Compendium, Do Not Delete/merge, [id number] 04/04/2021 13:36:07 02/04/09/08/2019 fecal occul t blood , stool Occult Blood negati ve Not Available In-Office Order Internal Use Only DO Not Attach Compendium DO Not Attach Compendium, Do Not Delete/merge, [id number] 09/08/2019 15:00:26 09/01/19 19 09/01/2018 fecal occul t blood , stool Occult Blood negati ve Not Available In-Office Order Internal Use Only DO Not Attach Compendium DO Not Attach Compendium, Do Not Delete/merge, [id number] 09/01/2018 09:30:38 12/08/19 15 12/07/2014 pregn marshal test, urine HCG negati ve Not Available In-Office Order Internal Use Only DO Not Attach Compendium DO Not Attach Compendium, Do Not Delete/merge, [id number] 12/07/2014 10:52:47 12/08/19 15 12/07/2014 gener al5ca se [email or web address] RESUL TS OF GEN-P ROBE APTIM A COMBO 2 ASSAY Chlam ydia: NEGAT SÁNCHEZ N. gonor rhoea e: NEGAT SÁNCHEZ GENANIRANJAN RIOS M.D., Patho logis t (Case elect martin sy chuy d 12 09 2014) [facility] MATIO N: LPS NEG SOURC E: ThinP rep Pap for CT/GC Gross Descr iptio n: ThinP rep Vial Recei joanne. Physi JAYSON Russ N /#[phone]/2 [id number] [phone] Cytop athol ogy servi carlos provi ded by [facility] at the above addre ss. Not Available [facility], Cytopathology Service [address] [facility], [place], [address], 12/09/2014 15:06:31 12/08/19 15 12/07/2014 pap, LB [email or web address] ThinP rep Pap, Image d: NEGAT SÁNCHEZ [...] at the above addre ss. Not Available [facility], Cytopathology Service [address] [place] [address], [address], 12/14/2014 12:26:29 09/01/19 19 09/01/2018 pap, LB [email or web address] ThinP rep Pap, Image d: NEGAT SÁNCHEZ [...] . LPS 5 NEG, Z12.4 Not Available [facility], Cytopathology Service [address] [place] [address], [address], 09/02/2018 17:26:28 09/08/19 20 09/08/2019 pap, LB [email or web address] ThinP rep Pap, Image d: NEGAT SÁNCHEZ [...] . LPS NEG [Z12. 4] Not Available [facility], Cytopathology Service [address] [place], [address], 09/10/2019 13:06:44 04/04/20 21 04/04/2021 PAP1C ASE [email or web address] ThinP rep Pap, Image d: NEGAT SÁNCHEZ [...] LPS 0 NEG [Z12. 4] Not Available [facility], Cytopathology Service [address] [place] [address], [address], 04/12/2021 13:55:52 04/17/2004/17/2022 PAP1C ASE [email or web address] ThinP rep Pap, Image d: NEGAT SÁNCHEZ [...] IUD, LPS neg. [z01. 419] Not Available [facility], Cytopathology Service [address] [place] [address], [address], 04/23/2022 08:11:00 04/17/2004/17/2022 fecal occul t blood , stool Occult Blood negati ve Not Available In-Office Order Internal Use Only DO Not Attach Compendium DO Not Attach Compendium, Do Not Delete/merge, [id number] 04/17/2022 10:29:09 Result Notes None recorded. Problems Name Problem SNOMED Code Status Onset Date Resolution Date Notes Provider Name and Address Organization Details Recorded Time Candidal vulvovaginiti s 62939239 Active Not Available [facility] 3 03:01:06 Irritable bowel syndrome 24437301 Active Not Available [facility] 3 03:01:06 Obesity 932430034 Active Not Available [facility] 3 03:01:06 Oligoovulator y dysfunctional uterine bleeding 483328210 Active Adriana Lara MD [address], [place], [address] , [place] - [facility], 5 11:43:08 Uncontrolled type 2 diabetes mellitus 023164935 Active Not Available [facility] 3 03:01:06 Primary female infertility 9262701 Active Not Available [facility] 3 03:01:06 Pruritus of vulva 58795429 Active Not Available [facility] 3 03:01:06 Pain in pelvis 76260442 Active Adriana Lara MD [address], [place], [address] , [place] - [facility], 4 15:07:42 Glycosuria 96745514 Active Adriana Lara MD [address], [place], [address] , [place] - [facility], 4 15:07:42 Problem Notes None recorded. Procedures Surgical History Date Name Laterality Status Provider Name and Address Organization Details Recorded Time 04/05/20 20 Most Recent Mammogram completed Yashira Alonso [place] - [facility], 04/17/2022 10:36:13 08/05/19 Cholecystectomy completed Taryn Beasley [place] - [facility], 11/10/2012 13:22:27 Imaging Results None recorded. Procedure Notes None recorded. Medical Equipment None Reported. Allergies Allergen ID Allergen Name Allergen Category Reaction Reaction Severity Criticality Documentation Date Start Date Code Code System Note Provider Name and Address Organization Details Recorded Time 72390 [facility] environnc nt,medica tion rash Not available Not available 09/08/2019 27287 RxNorm Yashira Celeste [place] [facility] in [facility], 0 14:53:01 7561 Product containin g penicilli n (product) medicatio n rash Not available Not available 11/10/2012 44983 8001 SNOMED Taryn Beasley [place] - [place] in [facility], 3 13:11:08 Medications Name Sig Start Date [...] henidate ER 40 mg capsule,ex tended release [id number] -50 TAKE 1 CAPSULE BY MOUTH EVERY [...] Available Not Available Not Available Afluria Quad [id number] (PF) 60 mcg (15 mcg x 4)/0.5 mL IM syringe active Not Available Not Available N ot Available FreeStyle Alexei 14 Day Maxie FOR TESTING GLUCOSE LEVELS active Not Available [...] 9 175.26 cm 95 /min 54.2 kg/m2 967903. 68 g 122 mm[Hg] 65 mm[Hg] Taryn Beasley [place] - [place] in [facility], 9 09:12:36 Date Recorded Body weight Body mass index (BMI) Body height Heart rate Systolic blood pressure Diastolic blood pressure Provider Name and Address Organization Details Last Updated DateTime 0 912733. 12 g 55 kg/m2 173.99 cm 110 /min 132 mm[Hg] 77 mm[Hg] Yashira Orozco in [facility], 0 14:53:44 Date Recorded Body height Body temperature Body mass index (BMI) Body weight Heart rate Systolic blood pressure Diastolic blood pressure Provider Name and Address Organization Details Last Updated DateTime 1 173.99 cm 97.2 [degF] 58.6 kg/m2 214742. 34 g 104 /min 141 mm[Hg] 75 mm[Hg] Yashira Orozco in [facility], 1 13:34:29 Date Recorded Body weight Body mass index (BMI) Body height Body temperature Heart rate Systolic blood pressure Diastolic blood pressure Provider Name and Address Organization Details Last Updated DateTime 2 107463. 19 g 54.3 kg/m2 172.72 cm 98.1 [degF] 93 /min 142 mm[Hg] 79 mm[Hg] Yashira Alonso [place] - [place] in [facility], 2 10:33:37 Date Recorded Body weight Heart rate Body mass index (BMI) Body height Systolic blood pressure Diastolic blood pressure Provider Name and Address Organization Details Last Updated DateTime 5 301462. 1769 g 103 /min 54.6 kg/m2 175.26 cm 119 mm[Hg] 71 mm[Hg] Yashira Alonso [place] - [place] [facility], 5 10:17:20 Social History Question Answer Notes LastModified by Organizat ion Details LastModified Time Tobacco Smoking Status Never Smoker Not Available [employer] 06/07/2020 03:19:40 What Is Your Level Of Alcohol Consumption? None [id number] Information not available 06/07/2020 What Is Your Level Of Caffeine Consumption? Occasional [id number] Information not available 06/07/2020 In The 14 [...] Type Of Diet Are You Following? REGULAR [id number] Information not available 06/07/2020 Which Illicit Or Recreational Drugs Have You Used? None [id number] Information not available 06/07/2020 Do You Reside In Or Have You Traveled To An Area Where Ebola Virus Transmission Is Active? No [id number] Information not available 06/07/2020 Do You Or Have You Ever Used E-cigarettes Or Vape? Never Used Electronic Cigarettes [id number] Information not available 06/07/2020 Education Post Graduate Information not available 11/10/2012 What Is The Highest Grade Or Level Of School You Have Completed Or The Highest Degree You Have Received? [id number] Information not available 04/04/2021 Who Is Your Employer? [employer] 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 Yes [id number] Information not available 06/07/2020 Do You Or Have You Ever Used Smokeless Tobacco? Never Used Smokeless Tobacco [id number] Information not available 06/07/2020 How Much Tobacco Do You Smoke? No [id number] Information not available 06/07/2020 General Stress Level Medium Information not available 09/08/2019 Do You Feel Stressed (tense, Restless, Nervous, Or Anxious, Or Unable To Sleep At Night)? [id number] Information not available 04/04/2021 Do You Use Any Illicit Or Recreational Drugs? No Information not available 04/04/2021 Have You Recently (within The Last 12 Weeks, Or During A Current ) Traveled To Or Lived In A Zika-affected Area? No [email or web address] Information not available 09/01/2018 Do You Or Have You Ever Used Any Other Forms Of Tobacco Or Nicotine? No Information not available 04/04/2021 Sex: Female Functional Status Question Answer Note LastModified by Organization D etails LastModified Time What is your exercise level? None [id number] Information not available 06/07/2020 Mental Status None [...] Pressure N Candidate for MyRisk panel N Thyroid Problems N Kidney or Bladder Problems N GI Problems Y Lung Disease N Depression Y Defects or Inherited Disease N History of Ovarian Cancer N Anemia N History of Breast Cancer N DON [...] MD [address], [place], [address], [place] Orozco in [facility], 11/10/2012 13:43:51 Tdap 3 completed [place] Sexton in [facility], 12/11/2012 15:22:23 Influenza, split virus, quadrivalent, preservative 9 completed [place] Sexton in [facility], 09/01/2018 09:26:24 COVID-19, mRNA, LNP-S, PF, 100 mcg/0.5mL dose or 50 mcg/0.25mL dose 1 completed [place] Ramos in [facility], 04/04/2021 13:38:30 Influenza, split virus, quadrivalent, preservative 1 completed [place] Ramos in [facility], 04/17/2022 10:34:55 Past Encounters Encounter ID Performer Location Encounter Start Date Encounter Closed Date Diagnosis/Indication Diagnosis SNOMED-CT Code Diagnosis ICD10 Code Diagnosis Note [id number] Yashira LARA MD [address] [place] [address] 11/10/2012 12:51:19 11/11/2012 08:37:47 [id number] MD ADRIANA Dickson MD [address] [place] [address] 12/11/2012 15:08:24 12/12/2012 16:10:03 [id number] Taryn LARA MD [address] [place] [address] 08/21/2013 13:33:26 08/21/2013 15:51:36 Pain in pelvis 95101282 Acute lowe r urinary tract infection 627876589 Glycosuria 75481763 [id number] Taryn Beasley ADRIANA LARA MD [address] [place] [address],[place] [address] 11/13/2013 09:28:08 11/13/2013 13:10:39 Specialized medical examination 07316539 [id number] ADRIANA LARA MD [address] [place] [address],[place] [address] 12/07/2014 10:02:59 12/07/2014 13:34:46 Specialized medical examination 10433197 Venereal d isease screening 941358832 Oligoovula tory dysfunctional uterine bleeding 015328147 [id number] MD ADRIANA Dickson MD [address] [place] [address],[place] [address] 09/01/2018 09:04:26 09/01/2018 12:06:59 Specialized medical examination 55011021 Z01.419 Screening for malignant neoplasm of rectum 000906099 Z12.12 Screening mammography 24 749125 Z12.31 [id number] MD ADRIANA Dickson MD [address] [place] [address],[place] [address] 09/08/2019 14:46:50 09/08/2019 15:34:18 Specialized medical examination 82857557 Z01.419 Screening for malignant neoplasm of rectum 885888567 Z12.12 Screening mammography 24 442358 Z12.31 [id number] MD ADRIANA Dickson MD [address] [place] [address],[place] [address] 04/04/2021 13:29:45 04/04/2021 14:48:20 Specialized medical examination 22351335 Z01.419 Screening for malignant neoplasm of rectum 249107672 Z12.12 Screening mammography 24 895504 Z12.31 [id number] MD ADRIANA Dickson MD [address] [place] [address],[place] [address] 04/17/2022 10:28:03 04/17/2022 11:34:15 Specialized medical examination 30037126 Z01.419 Screening for malignant neoplasm of rectum 549676051 Z12.12 Screening mammography 24 913421 Z12.31 Health Concerns Section Related Observation LastModified by Organization Detai ls LastModified Time None Recorded Concern Status LastModified by Organization Details LastModified Time None Recorded Advance Directives Directive None Recorded Payers Encounter Date Sequence Insurance Name Policy Number Policy Fountain Covered Member ID Fountain Member ID Guarantor Name 12/07/2014 1 [facility] [id number] Glorymar López [id number] Glorymar López Colon 09/01/2018 1 [facility] [id number] Glorymar López [id number] Glorymar López Colon 09/08/2019 1 [facility] [id number] Glorymar López [id number] Glorymar López Colon 04/04/2021 1 [facility] [id number] Glorymar López [id number] Glorymar López Colon 04/17/2022 1 [facility] [id number] Glorymar López [id number] Glorymar López Colon Notes Date Note Type Note Provider Name and Address Organization Details Recorded Time 09/01/2018 text/html She is here for annual exam. She has not been here since 2014. She was seeing [facility] [place] but they gave up on theat and put in a Mirena 2 years ago. No menses. Her diabetes has been Bad. In 07/2016 she started a process to do bariatric surgery at [facility]. She went through all the counseling [...] latest A1C was 10, in 06/18, the [facility] [place] referred her to endocrinology in 06/18, she was given instructions for rescue insulin doses when her sugars are high, she is doing that now, she had an A1C drawn on 11/25/14 but has not received the results yet. Adriana Lara MD [address], [place], [address], [place] - [facility], 09/01/2018 10:08:27 09/08/2019 text/html She is [...] a process to do bariatric surgery at [facility]. She went through all the counseling ,etc, but things fell through the cracks. She is considering going back again. she had weighted more than 400 pounds last year, she lost some weight this past year with diet and exercise but still weighs 366 pounds today. Adriana Lara MD [address] [facility],[address], [place], [address], [place] [facility], 09/08/2019 15:23:49 04/04/2021 text/html She is here for annual exam, weight is 391 pounds, BMI is 58.6. She had a Mirena inserted 08/2016. No menses. Her mother earlier this year due to natural causes, in [place], she is still grieving. She and her are , she wanted to go to couples counseling but he would only go in [place] and they could not find a holy cross [place] speaking counselor. Note from 2020: She is [...] a process to do bariatric surgery at [facility]. She went through all the counseling ,etc, but things fell through the cracks. She is considering going back again. she had weighted more than 400 pounds last year, she lost some weight this past year with diet and exercise but still weighs 366 pounds today. Adriana Lara MD [address], [place], [address], [place] [facility], 04/04/2021 14:00:40 04/17/2022 text/html Her weight [...] this year due to natural causes, in [place], she is still grieving.She and her are , she wanted to go to couples counseling but he would only go in [place] and they could not find a holy cross [place] speaking counselor. Adriana Lara MD [address], [place], [address], [place] [facility], 04/17/2022 11:00:04 OBGyn Episode No OBEpisode recorded.
--- OUTSIDE RECORDS SUMMARY | 2024-09-29 11:52 | XMS_ITS | Encounter Summary ---
Author Organization [facility] Address [address] [place] [address] Care Team Providers Care Typewriter Mechanic Name Role Phone Braulio Carbajal Primary Care Provide r Encounter Details Date Type Department Care Team (Late st Contact Info) Description 09/14/2024 9:30 AM EST Nutrition Bariatric Surgery - [address] [phone] Prema Wallis, RD [address] [phone] Class 3 severe obesity with serious comorbidity and body mass index (BMI) of 50.0 to 59.9 in adult, unspecified obesity type (CMS/HCC) (Primary Dx) Social History Tobacco Use Types [...] PM EST Sexual Orientation Not on file documented as of this encounter Last Filed Vital Signs Vital Sign Reading Time Taken Comments Blood Pressure - - Pulse - - Temperature - - Respiratory Rate - - Oxygen Saturation - - Inhaled Oxygen Concentration - - Weight 157 kg (346 lb) 09/14/2024 9:22 AM EST Height - - Body Mass Index 51.1 07/08/2024 1:01 PM EST documented in this encounter Progress Notes * Prema Wallis RD - 09/14/2024 9:30 AM EST Patient-created Goals: -Swap out more protein for breads in meal plan (eggs, shakes, cottage cheese) Prema Wallis RDN Bariatric Dietitian [facility] [email or web address] [phone] F [phone] [place] [address] [address] * Prema Wallis RD - 09/14/2024 9:30 AM EST NUTRITION FOLLOW-UP NOTE: Patient Name: Julia Segura Date of : 1975 Date of Service: 09/14/2024 SURGEON: Gosia Stoner MD DESIRED SURGERY: Gastric Sleeve CHIEF COMPLAINT: Obesity HISTORY: Julia Segura is a 49 y.o. female who presents for nutrition visit for Pre-op bariatric surgery 2nd Ht Readings from Last 1 Encounters: 07/08/24 1.753 m (69 ) Wt today: Wt Readings from Last 5 Encounters: 09/14/24 157 kg (346 lb) 07/20/24 156 kg (345 lb) 07/08/24 158 kg (349 lb) 03/20/22 (!) 169 kg (372 lb) 03/12/22 (!) 167 kg (369 lb) Body mass index is 51.1 kg/m??. Wt at initial: 349 Wt change since initial: -3 EBW = current - wt at BMI of 25: 346 170 = 176 Challenges: traveling to [place] and been since Changes since last visit: using chat GPT for diet plan. Cut down on soda EATING HABITS/DIET RECALL: Breakfast: eggs, wheat toast, protein shakes, cottage cheese Lunch: salads, soups , veggies, protein Snacks: fruit, nuts Dinner: protein and veggies Beverages: water, Dines out: No Exercise: been ill Reasons pt cannot exercise: none Nutrition diagnosis: Class Class IV obesity related to Undesirable Food Choices and Inadequate Physical Activity as evidenced by A BMI 51.1 Patient-created Goals: -Swap out more protein for breads in meal plan (eggs, shakes, cottage cheese) Literature Provided: Build a healthy plate, Goal sheets, and RD contact information Interventions: Discuss the importance of eating at least 3 meals/day and the impact on metabolism and Discussed the importance of drinking enough water Nutrition assessment: Pt is 49 y.o. Female with h/o has a past medical history of ADHD (attention deficit hyperactivity disorder), combined type (08/16/2014), Depression (04/2012), DM (diabetes mellitus) ([facility]) (2006), Esophageal reflux, HTN (hypertension) (2011), and IBS (irritable bowel syndrome) (1993). She has no past medical history of Amblyopia, unspecified, Bronchitis, not specified as acute or chronic, Macular degeneration (senile) of retina, unspecified, Nevus, non-neoplastic, Personal historyof malignant melanoma of skin, Retinal detachment with retinal defect, unspecified, Unspecified disorder of thyroid, Unspecified glaucoma(365.9), or Unspecified malignant neoplasm of skin of other and unspecified parts of face. Obesity class IV Stage of change/Barriers to understanding: Pt is motivated to make changes to diet and lifestyle and No barriers to understanding Concerns regarding considerations for bariatric surgery: Program requirements not met at this time Monitoring/Evaluation: Monitor weight, Monitor progress toward nutrition goals, and Monitor compliance with program overall Patient nutritionally ready for surgery: Yes RD to see patient for follow-up nutrition visit in 1 month Visit Time: The total time of this visit was 30 minutes of which we spent 30minutes (>50% of the time spent)in direct [id number] consultation for counseling, reviewing medical record and/or coordinating the plan as described above. Prema Wallis RD NUTRITION SERVICES documented in this encounter Plan of Treatment Upcoming Encounters Date Type Department Care Team ([facility] Contact Info) Description 10/12/2024 10:00 AM EDT Nutrition Bariatric Surgery - [address] [place] [phone] Prema [address]is [address] [phone] documented as of this encounter Visit Diagnoses Diagnosis Class 3 severe obesity with serious comorbidity and body mass index (BMI) of 50.0 to 59.9 in adult, unspecified obesity type (CMS/HCC)- Primary documented in this encounter Care Teams Typewriter Mechanic Relationship Specialty Start Date End Date Braulio Carbajal [address] [place] [address] PCP - General Internal Medicine 03/20/22 documented as of this encounter
--- OUTSIDE RECORDS SUMMARY | 2024-09-29 11:53 | XMS_ITS | Encounter Summary ---
Author Organization [employer] Address [address] [facility] [address] [place] [address] Care Team Providers Care Oiler Bander Name Role Phone Braulio Carbajal MD Primary Care Prov ider Reason for Visit * Reason Onset Date Comments Med Refill 02/28/2023 Encounter Details Date Type Department Care Team (Late st Contact Info) Description 02/28/2023 Refill [facility] MEDICINE [address] [place] [address] Braulio Carbajal MD [address] [place] [phone] Mixed hyperlipidemia; Primary hypertension; Type 2 diabetes [...] (CMS/HCC) documented in this encounter Care Teams Oiler Bander Relationship Specialty Start Date End Date Braulio Carbajal MD [address] [place] [id number] PCP - General Internal Medicine 12/14/19 04/28/24 documented as of this encounter
--- OUTSIDE RECORDS SUMMARY | 2024-09-29 11:53 | XMS_ITS | Encounter Summary ---
Author Organization [facility] Address [address] [place] [address] [address], [place] [address] Care Team Providers Care Lab Clerk Name Role Phone Braulio Carbajal MD Primary Care Prov ider Reason for Visit * Reason Comments Med Refill Encounter Details Date Type Department Care Team (Late st Contact Info) Description 10/29/2022 Refill [facility] MEDICINE [address] [place], [place] [phone] Braulio Carbajal MD [address] [place] [address] Social History Tobacco Use Types Packs/Day Years [...] on filedocumented in this encounter Care Teams Lab Clerk Relationship Specialty Start Date End Date Brualio Carbajal MD [address] [place] [address] PCP - General Internal Medicine 12/14/19 04/28/24 documented as of this encounter
--- OUTSIDE RECORDS SUMMARY | 2024-09-29 11:53 | XMS_ITS | Encounter Summary ---
Author Organization [facility] [facility] Address [address] [place] [address] Care Team Providers Care Kaiawhina Name Role Phone Braulio Carbajal MD Primary Care Prov ider Reason for Visit * Reason Onset Date Comments Med Refill 02/28/2023 Encounter Details Date Type Department Care Team ([facility] st Contact Info) Description 02/28/2023 Refill [facility] PEDS [address] [place] [address] Braulio Carbajal MD [address] [place] [address] Social History Tobacco Use Types Packs/Day Years [...] on filedocumented in this encounter Care Teams Kaiawhina Relationship Specialty Start Date End Date Braulio Carbajal MD [address] [place] [address] PCP - General Internal Medicine 12/14/19 04/28/24 documented as of this encounter
--- OUTSIDE RECORDS SUMMARY | 2024-09-29 11:53 | XMS_ITS | Encounter Summary ---
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 ([facility]) (Primary Dx) Social History Tobacco [...] 2 diabetes mellitus without complication, unspecified whether senior care insulin use (CMS/HCC) HEMATOXYLIN AND EOSIN STAIN Routine 01/09/2023 8:38 AM EDT Type 2 diabetes mellitus without complication, unspecified whether senior care insulin use (CMS/HCC) COVID-19 ID NOW (DUPREE) Routine 01/08/2023 2:18 PM EDT Type 2 diabetes mellitus without complication, 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 (CMS/HCC) TYPE AND SCREEN Routine 01/01/2023 10:22 AM EDT Type 2 diabetes mellitus without complication, unspecified whether senior care insulin use (CMS/HCC) VITAMIN D,25-OH,TOTAL,IA Routine 01/01/2023 10:20 AM EDT Type 2 diabetes mellitus without complication, unspecified whether senior care insulin use (CMS/HCC) TSH W/REFLEX TO FT4 Routine 01/01/2023 1 0:20 AM EDT Type 2 diabetes mellitus without complication, 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 (CMS/HCC) CBC WITH AUTO DIFFERENTIAL Routine 01/01/2023 10:20 AM EDT Type 2 diabetes mellitus without complication, unspecified whether senior care insulin use (CMS/HCC) ZINC Routine 01/01/2023 10:20 AM EDT Type 2 diabetes mellitus without complication, unspecified whether senior care insulin use (CMS/HCC) VITAMIN A Routine 01/01/2023 10:20 AM EDT Type 2 diabetes mellitus without complication, unspecified whether senior care insulin use (CMS/HCC) APTT Routine 01/01/2023 10:20 AM EDT Type 2 diabetes mellitus without complication, unspecified whether senior care insulin use (CMS/HCC) PROTHROMBIN TIME-INR Routine 01/01/2023 10:20 AM EDT Type 2 diabetes mellitus without complication, unspecified whether senior care insulin use (CMS/HCC) C-REACTIVE PROTEIN Routine 01/01/2023 10 :20 AM EDT Type 2 diabetes mellitus without complication, unspecified whether senior care insulin use (CMS/HCC) VITAMIN B1 Routine 01/01/2023 10:20 AM EDT Type 2 diabetes mellitus without complication, 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 (CMS/HCC) PTH, INTACT WITHOUT CALCIUM Routine 01/01/2023 10:20 AM EDT Type 2 diabetes mellitus without complication, unspecified whether senior care insulin use (CMS/HCC) HEMOGLOBIN A1C Routine 01/01/2023 10:20 AM EDT Type 2 diabetes mellitus without complication, 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 (CMS/HCC) FERRITIN Routine 01/01/2023 10:20 AM EDT Type 2 diabetes mellitus without complication, unspecified whether senior care insulin use (CMS/HCC) VITAMIN B12 Routine 01/01/2023 10:20 AM EDT Type 2 diabetes mellitus without complication, 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 (CMS/HCC) LIPID PANEL, STANDARD Routine 01/01/2023 10:20 AM EDT Type 2 diabetes mellitus without complication, unspecified whether senior care insulin use (CMS/HCC) COMPREHENSIVE METABOLIC PANEL Routine 01/01/2023 10:20 AM EDT Type 2 diabetes mellitus without complication, unspecified whether senior care insulin use (CMS/HCC) GLUCOSE, WHOLE BLOOD Routine 11/13/2022 1:31 PM EDT Type 2 diabetes mellitus without complication, unspecified whether senior care insulin use (CMS/HCC) HEMOGLOBIN A1C Routine 11/13/2022 1:14 PM EDT Type 2 diabetes mellitus without complication, unspecified whether senior care insulin use (CMS/HCC) documented in this encounter Results * CA 19-9 (01/09/2023 10:38 AM EDT) CA 19-9 14 <34 U/mL [facility] Comment:The CA19-9 result ma y be increased on average 14% - 20%,relative to results previously obtained with this methoddue to a recent calibrator adjustment made in Octobery the reagent lipcoat sprayer. In the low range for thisassay (< [...] or absence of disease.THIS TEST WAS PERFORMED AT:[employer] [place] [id number] LONDONO MD 01/09/2023 10:3 8 AM EDT 01/09/2023 10:42 AM EDT [facility] External Provider LAB BLO OD ORDERABLES Final Result [facility] [address] [place] [phone] * Hematoxylin and Eosin Stain (01/09/2023 8:38 AM EDT) 01/09/2023 8:38 AM EDT 01/09/2023 8:53 AM EDT Narrative [facility] - 01/14/2023 1:28 PM EDT ----- ------- Name: Julia López ? Age/Sex: 47/F ? : 1975 Unit#: [id number] ?? Attend Dr: Darci Sanders MD ?Re01/09/23 ?Status: DEP SDC ? Location: HO.SSS ?Disch: ? ----- ------- SPEC : [id number] ? RECD: 01/09/23 ? STATUS: ??SOUT ? REQ NUM: [id number] ? PUSHPA: 01/09/23 ? SUBM DR: Darci [...] ? Age/Sex: 47/F ? : 1975 Unit#: [id number] ?? Attend Dr: Darci Sanders MD ?Re01/09/23 ?Status: DEP SDC ? Location: HO.SSS ?Disch: ? ----- ------- SPEC : [id number] ? RECD: 01/09/23 ? STATUS: ??SOUT ? REQ NUM: [id number] ? PUSHPA: 01/09/23 ? SUBM DR: Darci [...] ?? [address] ?? [place] [address] ?? [phone] ?? Darci Sanders MD ?? [address] [place] [address], [address] ?? [place] [address] ?? [phone] ----- ------- Signed (signature on file) Shaun Lebron MD 01/14/23 1328 ? ----- ------- ? END OF REPORT ? us [facility] External Provider LAB BLO OD ORDERABLES Final Result [facility] [address] [place] [phone] [phone] * COVID-19 ID NOW ([employer]) (01/08/2023 2:18 PM EDT) IDNOW SERIAL# [id number] [facility] COVID-19 TEST Negative Negative [facility] COVID-19 NOTE See Note [facility] Comment: Results are for the identification of SARS-CoV2 RNA. TheSARS-CoV2 RNA is generally detectable in respiratory samplesduring the acute phase of infection. Positive results areindicative of the presence of SARS-CoV-2 RNA; clinicalcorrelation with patient history and other diagnosticinformation is necessary to determine patient infectionstatus. Positive results do not rule out bacterial infectionor co- infection with other viruses.Testing facilities within the [facility] and itsterritories are required to report [...] 2:18 PM EDT 01/08/2023 2:32 PM EDT [facility] Exter nal Provider LAB MOLECULAR DIAGNOSTICS ORDERABLES Final Result Performing Organization Address [facility]/ZIP Co de Phone Number [facility] [address] [place] [phone] * Type and screen (01/01/2023 10:22 AM EDT) Blood Type OP [facility] Antibody Screen NEGATIVE [facility] 01/01/2023 10:2 2 AM EDT 01/01/2023 11:04 AM EDT Narrative [facility] - 01/01/2023 11:55 AM EDT Spec expiration changed by JAMESON on 01/01/23Reason: For SURGERYNURSING:Call Blood Bank (ext. [phone]) to band patient on admission.Type and Screen in effect until 2300 on 01/09/23Witnessed by EDELMIRA [facility] External Provider LAB BLO OD BANK TEST ORDERABLES Final Result Performing Organization Address [facility] Co de Phone Number [facility] [address] [place] [phone] * (ABNORMAL) Vitamin A (01/01/2023 10:20 AM EDT) Vitamin A (Retinol) 32(A) 38 - 98 mcg/dL [facility] Comment:Vitamin supplementat ion within 24 hours prior toblood draw may affect the accuracy of the results.This test was developed and its analytical performancecharacteristics have been determined by [employer] [place]. It hasnot been cleared or approved by the U.S. Food and DrugAdministration. This assay has been validated pursuantto the CLIA regulations and is used for clinicalpurposes.THIS TEST WAS PERFORMED AT:[employer] [id number] [place] [address]LCYWWSCNICOLA BARRY MD,PHD 01/01/2023 10:2 0 AM EDT 01/01/2023 10:20 AM EDT [facility] External Provider LAB BLO OD ORDERABLES Final Result Performing Organization Address [facility] Co de Phone Number [facility] [address] [place] [phone] * (ABNORMAL) Vitamin B1 (01/01/2023 10:20 AM EDT) Vitamin B1 <6(A) 8 - 30 nmol/L [facility] Comment:Vitamin supplementat ion within 24 hours prior toblood draw may affect the accuracy of the results.This test was developed and its analytical performancecharacteristics have been determined by [employer] [place], [place]. It hasnot been cleared or approved by the U.S. Food and DrugAdministration. This assay has been validated pursuantto the CLIA regulations and is used for clinicalpurposes.THIS TEST WAS PERFORMED AT:[employer] [place] [address]KIZXMKCNICOLA BARRY MD,PHD 01/01/2023 10:2 0 AM EDT 01/01/2023 10:20 AM EDT [facility] External Provider LAB BLO OD ORDERABLES Final Result Performing Organization Address [facility] Co de Phone Number [facility] [address] [place] [phone] * Zinc (01/01/2023 10:20 AM EDT) Zinc 84 60 - 130 mcg/dL [facility] Comment:This test was develo ped and its analytical performancecharacteristics have been determined by [employer] [place], [place]. It hasnot been cleared or approved by the U.S. Food and DrugAdministration. This assay has been validated pursuantto the CLIA regulations and is used for clinicalpurposes.THIS TEST WAS PERFORMED AT:[employer]/[facility] [place] [address]DWGXTRANICOLA BARRY MD,PHD 01/01/2023 10:2 0 AM EDT 01/01/2023 10:20 AM EDT [facility] External Provider LAB BLO OD ORDERABLES Final Result Performing Organization Address [facility] Co de Phone Number [facility] [address] [place] [phone] * PTH, Intact Without Calcium (01/01/2023 10:20 AM EDT) PTHI 32 16 - 77 pg/mL [facility] Comment:Interpretive Guide I ntact PTH Calcium -------Normal Parathyroid Normal NormalHypoparathyroidism Low or Low Normal LowHyperparathyroidism Primary Normal or High High Secondary High Normal or Low Tertiary High HighNon-Parathyroid Hypercalcemia Low or Low Normal High Calcium (PTHI) 9.9 8.6 - 10.2 mg/dL [facility] Comment:THIS TEST WAS PERFOR MED AT:[employer] [address] [id number] LONDONO MD 01/01/2023 10:2 0 AM EDT 01/01/2023 10:20 AM EDT [facility] External Provider LAB BLO OD ORDERABLES Final Result Performing Organization Address [facility]/ZIP Co de Phone Number [facility] [address] [place] [phone] * Lipid Panel, Standard (01/01/2023 10:20 AM EDT) Triglycerides 73 mg/dL [facility] Comment:Desirable Triglyceri de: less than 150 mg/dLBorderline High Triglyceride 150-199 mg/dLHigh Triglyceride: 200-499 mg/dLVery High Triglyceride: greater than or equal to 5OO mg/dL Cholesterol 101 mg/dL [facility] Comment:Desirable Cholestero l: less than 200 mg/dLBorderline High Cholesterol: 200-239 mg/dLHigh Cholesterol: greater than 239 mg/dL LDL Cholesterol Calculated 53 mg/dl [facility] Comment:Desirable LDL: less than 100 mg/dLNear Optimal/Above Optimal LDL: 110- 129 mg/dLBorderline High LDL: 130-159 mg/dLHigh LDL: 160-189 mg/dLVery High LDL: greater than or equal to 190 mg/dL HDL Cholesterol 34 mg/dL [facility] Comment:Desirable HDL: great er than 40 mg/dL Note: This HDL assay may give artificially low results in patients with liver disease. 01/01/2023 10:2 0 AM EDT 01/01/2023 10:20 AM EDT [facility] External Provider LAB BLO OD ORDERABLES Final Result Performing Organization Address City/[facility]/ZIP Co de Phone Number [facility] [address] [place] [phone] * (ABNORMAL) C-reactive Protein (01/01/2023 10:20 AM EDT) C Reactive Protein 2.54(H) < or = 0.50 mg/dL [facility] 01/01/2023 10:2 0 AM EDT 01/01/2023 10:20 AM EDT [facility] External Provider LAB BLO OD ORDERABLES Final Result [facility] [address] [place] [phone] * (ABNORMAL) Comprehensive Metabolic Panel (01/01/2023 10:20 AM EDT) Sodium 136 135 - 145 mmol/L [facility] Potassium 4.7 3.3 - 5.1 mmol/L [facility] Chloride 99 96 - 108 mmol/L [facility] Carbon Dioxide 28 22 - 29 mmol/L [facility] Anion Gap 14 12 - 20 [facility] Urea Nitrogen (BUN) 13 9 - 16 mg/dL [facility] Creatinine, Serum 0.80 0.5 - 1.4 mg/dL [facility] Creatinine Clr Calc Pharmacy 134.3 [facility] Comment:Provided height and weight: 175.26 cm,142.882 kg.eGFR (calculated from the MDRD study equation) and eCrCl(calculated from the Cockcroft-Gault equation) are based ondifferent parameters and may not yield comparable results.If eCrCl result is absurd, please check patient'sheight/weight. Estimated Glomerular Filt Rate >60 [facility] Comment:NOTE: For -Am erican individuals, multiply the result by 1.210.Chronic Kidney Disease: Estimated GFR < 60 mL/min/1.25o0Tnylqi Kidney Disease: Estimated GFR < 15 mL/min/1.73m2 Glucose 141(H) 60 - 115 mg/dL [facility] Calcium 10.0 8.4 - 10.2 mg/dL [facility] Bilirubin, Total 0.9 0.0 - 1.0 mg/dL [facility] Aspartate Amino Transferase 18 5 - 31 U/L [facility] Alanine Aminotransferase 14 0 - 31 U/L [facility] Total Protein 7.9 6.5 - 8.0 g/dL [facility] Albumin Level 4.0 3.5 - 5.0 g/dL [facility] Alkaline Phosphatase 85 39 - 117 U/L [facility] 01/01/2023 10:2 0 AM EDT 01/01/2023 10:20 AM EDT [facility] External Provider LAB BLO OD ORDERABLES Final Result Performing Organization Address [facility]/ZIP Co de Phone Number [facility] [address] [place] [phone] * TSH W/Reflex to FT4 (01/01/2023 10:20 AM EDT) TSH reflex Free T4 1.39 0.32 - 4.0 uIU/mL [facility] 01/01/2023 10:2 0 AM EDT 01/01/2023 10:20 AM EDT [facility] External Provider LAB BLO OD ORDERABLES Final Result Performing Organization Address [facility] de Phone Number [facility] [address] [place] [phone] * Vitamin D, 25-Hydroxy, Total, Immunoassay (01/01/2023 10:20 AM EDT) Vitamin D 25-OH Total 23.8 >30 ng/mL [facility] Comment:Health Based Referen ce Values*< 20 ng/mL Dksaiegve82-67 ng/mL Insufficient> 30 ng/mL Sufficient*Nay HASTINGS. N [...] 0 AM EDT 01/01/2023 10:20 AM EDT [facility] External Provider LAB BLO OD ORDERABLES Final Result Performing Organization Address [facility] Co de Phone Number [facility] [address] [place] [phone] * Vitamin B12 (01/01/2023 10:20 AM EDT) Vitamin B12 505 200 - 900 pg/mL [facility] Comment:NORMAL 200-900 PG/ML INDETERMINATE 160-199 PG/ML DEFICIENT < 160 PG/ML 01/01/2023 10:2 0 AM EDT 01/01/2023 10:20 AM EDT [facility] External Provider LAB BLO OD ORDERABLES Final Result Performing Organization Address [facility] Co de Phone Number [facility] [address] [place] [phone] * Ferritin (01/01/2023 10:20 AM EDT) Ferritin 192 10 - 250 ng/mL [facility] 01/01/2023 10:2 0 AM EDT 01/01/2023 10:20 AM EDT [facility] External Provider LAB BLO OD ORDERABLES Final Result Performing Organization Address [facility] Co de Phone Number [facility] [address] [place] [phone] * Hemoglobin A1c (01/01/2023 10:20 AM EDT) Hemoglobin A1c 6.8 % [facility] Comment:Hemoglobin A1C Refer ence Range Adults: 4.8 - 6.0 % Non diabetic: < 6.0 % Goal: < 7.0 %Additional Action Suggested: > 8.0 %Note: Hemoglobin A1c results are invalid for patients with abnormal amounts of HbF. Blood transfusions may impact the HbA1c concentration in the patient sample. Estimated Average Glucose 148 mg/dL [facility] Comment:eAG = Estimated ave rage glucose which is %A1C expressed asaverage glucose, using the formula of the W0V-HmbsuokTmumnhk Glucose study (ADAG), Diabetes Care, Vol.31,#8,2007 01/01/2023 10:2 0 AM EDT 01/01/2023 10:20 AM EDT [facility] External Provider LAB BLO OD ORDERABLES Final Result Performing Organization Address [facility] de Phone Number [facility] [address] [place] [phone] * APTT (01/01/2023 10:20 AM EDT) Partial Thromboplastin Time 35.0 26.0 - 36.4 SEC [facility] 01/01/2023 10:2 0 AM EDT 01/01/2023 10:20 AM EDT [facility] External Provider LAB BLO OD ORDERABLES Final Result Performing Organization Address [facility] de Phone Number [facility] [address] [place] [phone] * Prothrombin Time-INR (01/01/2023 10:20 AM EDT) Prothrombin Time 12.9 10.0 - 13.1 SEC [facility] INTERNATIONAL NORM RATIO 1.1 0.9 - 1.1 [facility] Comment:INTERNATIONAL NORMAL IZED RATIO (INR) REFERENCE [...] AM EDT 01/01/2023 10:20 AM EDT us [facility] External Provider LAB BLO OD ORDERABLES Final Result [facility] [address] [place] [phone] * (ABNORMAL) CBC auto differential (01/01/2023 10:20 AM EDT) White Blood Count 11.3(H) 4.8 - 10.8 X10*3/uL [facility] Red Blood Count 5.09 4.20 - 5.50 X10*6/uL [facility] Hemoglobin 13.8 12.0 - 16.0 g/dl [facility] Hematocrit 44.1 37.0 - 47.0 % [facility] Mean Corpuscular Volume 86.6 80.0 - 98.0 fL [facility] Mean Corpuscular Hemoglobin 27.1 27.0 - 33.0 pg [facility] Mean Corpuscular HGB Conc 31.3 31.0 - 35.0 g/dl [facility] Red Cell Distribution Width 14.3 11.0 - 16.0 % [facility] Platelet Count 376 160 - 400 X10*3/uL [facility] Mean Platelet Volume 9.2(L) 9.4 - 12.3 fL [facility] Neutrophils Percent Auto 66.0 45 - 73 % [facility] Imm Gran Pct Auto 0.8(H) 0.0 - 0.4 % [facility] Lymphocytes Percent Auto 25.1 20 - 40 % [facility] Monocytes Percent Auto 5.5 2 - 11 % [facility] Eosinophils Percent Auto 2.0 0 - 4 % [facility] Basophils Percent Auto 0.6 0 - 2 % [facility] NRBC Pct Auto 0.0 0.0 - 0.2 /100WBC [facility] Neutrophils Absolute Auto 7.4 2.0 - 8.3 x10*3/uL [facility] Imm Gran Abs Auto 0.09(H) 0.00 - 0.03 X10*3/uL [facility] Lymphocytes Absolute Auto 2.8 1.2 - 4.9 X10*3/uL [facility] Monocytes Absolute Auto 0.6 0.1 - 1.2 X10*3/uL [facility] Eosinophils Absolute Auto 0.2 0.0 - 0.4 X10*3/uL [facility] Basophils Absolute Auto 0.1 0.0 - 0.2 X10*3/uL [facility] NRBC Abs Auto 0.000 0.0 - 0.012 X10*3/uL [facility] 01/01/2023 10:2 0 AM EDT 01/01/2023 10:20 AM EDT [facility] External Provider LAB BLO OD ORDERABLES Final Result Performing Organization Address [facility]/ZIP Co de Phone Number [facility] [address] [place] [phone] * (ABNORMAL) Glucose, Whole Blood (11/13/2022 1:31 PM EDT) Glucose, Whole Blood 196(H) 60 - 115 mg/dL [facility] Comment:METER #: [id number] 5Testing performed in the Endocrinology Department [address] , [address], [facility]. 11/13/2022 1:31 PM EDT 11/13/2022 1:34 PM EDT [facility] External Provider LAB BLO OD ORDERABLES Final Result Performing Organization Address [facility]/ZIP Co de Phone Number [facility] [address] [place] [phone] * Hemoglobin A1c (11/13/2022 1:14 PM EDT) Hemoglobin A1c 7.4 % [facility] Comment:Hemoglobin A1C Refer ence Range Adults: 4.8 - 6.0 % Non diabetic: < 6.0 % Goal: < 7.0 %Additional Action Suggested: > 8.0 %Note: Hemoglobin A1c results are invalid for patients with abnormal amounts of HbF. Blood transfusions may impact the HbA1c concentration in the patient sample. Estimated Average Glucose 166 mg/dL [facility] Comment:eAG = Estimated ave rage glucose which is %A1C expressed asaverage glucose, using the formula of the D9P-XyfrfdqKrsphjf Glucose study (ADAG), Diabetes Care, Vol.31,#8,2007 11/13/2022 1:14 PM EDT 11/13/2022 1:14 PM EDT us [facility] External Provider LAB BLO OD ORDERABLES Final Result [facility] [address] [place] [phone] documented in this encounter Visit Diagnoses Diagnosis Type 2 diabetes mellitus without complication, unspecified whether senior care insulin use ([facility])- Primary documented in this encounter Care Teams [employer] Relationship Specialty Start Date End Date Braulio Carbajal MD [address] [place] [phone] PCP - General Internal Medicine 12/14/19 04/28/24 documented as of this encounter
--- OUTSIDE RECORDS SUMMARY | 2024-09-29 11:53 | XMS_ITS | Continuity of Care Document ---
Author Organization [facility] Address [address] [facility] [address] [place] [address] Phone [phone] Social History Type Date Description Comments Sex Unknown Medical Devices Description No Information Available Encounters Description No Information Available Assessments Description No Information Available Plan of Treatment No Information Available Functional Status Description No Information Available Mental Status Description No Information Available Referrals Description No Information Available
== END 2024-09-29 11:28 | disposition home or self-care (01) ==
LOC: HO.HOP 10:08
PROVIDERS: PCP Internal Medicine; Visit Provider Counselor Mental Health
DX: F90.2 Attention-deficit hyperactivity disorder, combined type (principal); F41.0 Panic disorder [episodic paroxysmal anxiety]; F32.A Depression, unspecified
CPT/HCPCS: 90837

== ENCOUNTER → 2024-09-29 10:08 | Outpatient (BNVA) | payer OTHER, SELFPAY | PROVIDERS: PCP Internal Medicine; Visit Provider Counselor Mental Health ==

== ENCOUNTER 2024-10-13 08:11 | Outpatient (AMB) | payer OTHER, SELFPAY ==
--- NOTE | 2024-10-13 08:00 | MHC.WMTHER ---
Intake Intake Visit Reasons: VIDEO OP Therapy Allergies Penicillins Allergy (Intermediate, Verified 05/26/24 10:01) Shortness of Breath pt states no food allergies Allergy (Unknown, Uncoded 05/26/24 10:01) Unknown [facility] Medical History Type 2 diabetes mellitus with retinopathy Asthma Insomnia Neuropathy Breast calcification, right Adenocarcinoma determined by biopsy of liver Diabetic retinopathy Anxiety and depression GERD (gastroesophageal reflux disease) SOLE on CPAP ADHD Hyperlipidemia HTN (hypertension) with goal to be determined Diabetes mellitus Morbid obesity Surgical History History of cholecystectomy Family History Mother Diabetes Heart problem Father Hypertension Maternal Grandmother Primary cancer of bone marrow Maternal Grandfather Prostate cancer Social History Are you a primary animal care taker to a significant other at home: No Do you presently have visiting nurse or other home services: No Alcohol intake: never Patient Tobacco Use Status: Never used Tobacco Female Reproductive History Menstrual Age of Menarche: 13 Behavioral Health Assessment Weight Management Therapy Therapy Notes Details Subjective: The patient reports feeling generally better, but continues to experience overwhelming feelings related to her current job. 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 She has been participating in crafting classes and volunteering, which are helping her emotionally. However, she has noticed an increase in procrastination regarding self-care tasks, such as calling providers to set or change appointments and accessing services, especially with changes in her insurance. Objective: The patient presents for a follow-up visit via Telehealth. Reflective listening was utilized to process functioning, progress, and needs. We discussed recent events and scenarios that triggered stress, exploring how she has been managing them and identifying different coping strategies. A gentle challenge to her thinking and mindset was incorporated, with a focus on things she can control rather than those beyond her control. The importance of assertiveness and boundary-setting at work for her mental health was reinforced. Talk therapy and Cognitive Processing Therapy (CPT) were implemented in today's session. Assessment/Response: Mental Status: The patient demonstrates more energy and less fatigue overall. She appears euthymic, though with mild anxiety. Denies recent panic symptoms. She is oriented to person, place, and time (X3) and is alert. The patient reports occasional brain fog, during which she experiences difficulty maintaining her thoughts and may momentarily lose her train of thought. Risk Reported/Identified: Within normal limits (WNL). No suicidal or homicidal ideation reported. Assessment & Plan Assessment & Plan (1) ADHD: Code(s): F90.9 - Attention-deficit hyperactivity disorder, unspecified type Qualifiers: Attention deficit-hyperactivity disorder type: combined inattentive-hyperactive Qualified Code(s): F90.2 - Attention-deficit hyperactivity disorder, combined type (2) Panic disorder: Code(s): F41.0 - Panic disorder [episodic paroxysmal anxiety] (3) Depression, unspecified: Code(s): F32.A - Depression, unspecified Plan Continue bi-weekly sessions to monitor progress and address ongoing concerns. Next appointment: 10/27/24 at 8:00 AM via Telehealth. Telehealth Telehealth Telehealth Platform: [facility] Location of provider rendering services: practice address Location of patient: address on file Patient Identification confirmed using: Name, : Yes Telehealth method: video Patient verbally consented to treatment: Yes Patient verbally consented to billing insurance company: Yes Patient informed of any privacy concerns related to visit: Yes Minutes spent on Phone/Video with Pt.: 75 Coding Level of Care Code Established Pt Tele Psytx >53 mins (34008) Patient Type Established Diagnoses Attention deficit hyperactivity disorder (ADHD), combined type F90.2 Attention deficit-hyperactivity disorder type: combined inattentive-hyperactive Panic disorder F41.0 Depression, unspecified F32.A Time Spent (min) 75 Comment Start time: 8:00am, End time: 9:15am.
--- OUTSIDE RECORDS SUMMARY | 2024-10-13 08:39 | XMS_ITS | Encounter Summary ---
Author Organization [facility] Address [address] [place] [address] Care Team Providers Care Call Center Dispatcher Name Role Phone Braulio Carbajal Primary Care Provide r Encounter Details Date Type Department Care Team (Late st Contact Info) Description 09/14/2024 9:30 AM EST Nutrition Bariatric Surgery - [address] [phone] Prema Wallis, RD [address] [phone] Class 3 severe obesity with serious comorbidity [...] cottage cheese) Prema Wallis RDN Bariatric Dietitian [facility] [email or web address] [phone] F [phone] [place] [address] [address] * Prema Wallis [address] - [...] [phone] = 176 Challenges: traveling to [place] and been since Changes since last visit: [...] type (08/16/2014), Depression (04/2012), DM (diabetes mellitus) (CMS/HCC) (2006), Esophageal reflux, HTN (hypertension) (2011), and [...] 30minutes (>50% of the time spent)in direct [id number]-[id number] consultation for counseling, reviewing medical record and/or coordinating the plan as described above. Prema Wallis RD NUTRITION SERVICES documented in this encounter Plan of Treatment Not on file documented as of this encounter Visit Diagnoses Diagnosis Class 3 severe obesity with serious comorbidity and body mass index (BMI) of 50.0 to 59.9 in adult, unspecified obesity type ([facility])- Primary documented in this encounter Care Teams Call Center Dispatcher Relationship Specialty Start Date End Date Braulio Carbajal [address] [place], [place] PCP - General Internal Medicine 03/20/22 documented as of this encounter
--- OUTSIDE RECORDS SUMMARY | 2024-10-13 08:39 | XMS_ITS | Clinical Summary ---
Author Organization 175 [facility] Address [address] [place] [address] Phone Care Team Providers Care Material Expediter Name Role Phone Braulio Carbajal Primary Care [...] 9:30 AM EST Nutrition Bariatric Surgery - [address] [place] [phone] Class 3 severe obesity with serious comorbidity and body mass index (BMI) of 50.0 to 59.9 in adult, unspecified obesity type (CMS/HCC) (Primary Dx) 07/20/2024 9:00 AM EST Consult Bariatric Surgery - [place] 175 [facility] [address] [place] [phone] Class 3 severe obesity with serious comorbidity and body mass index (BMI) of 50.0 to 59.9 in adult, unspecified obesity type (CMS/HCC) (Primary Dx) 07/20/2024 8:35 AM EST Lab Draw Station - 175 [facility] [address] [place] [phone] Morbid obesity (CMS/HCC) from Last 3 Months Immunizations Name Administration Dates Next Due Tdap Tetanus diptheria acell ular pertussis (Boostrix; Adacel) 7yo and older 12/11/2012 Surgical History Surgery Date Site/Laterality Comments CHOLECYSTECTOMY 2000 PROCEDURE: HISTORICAL CHOLECYSTECTOMY Medical History Medical History Date Comments HTN (hypertension) 2011 DX:HTN (hyper tension) DM (diabetes mellitus) (CMS/HCC) 2006 DX:DM (diabetes mellitus) ([facility]) IBS (irritable bowel syndrome) 1993 D X:IBS [...] LAB CHEMISTRY METHOD 07/20/2024 11:24 AM EST [facility] Triglycerides 89 0 - 150 mg/dL LAB CHEMISTRY METHOD 07/20/2024 11:24 AM [facility] HDL 53 >=40 mg/dL LAB CHEMISTRY METHOD 07/20/2024 11:24 AM [facility] LDL Calculated 108(H) 0 - 100 mg/dL LAB CHEMISTRY METHOD 07/20/2024 11:24 AM [facility] VLDL Cholesterol Francisco J 17.8 mg/dL LAB CHEMISTRY METHOD 07/20/2024 11:24 AM [facility] Non HDL Chol. (LDL+VLDL) 126 <145 mg/dL LAB CHEMISTRY METHOD 07/20/2024 11:24 AM [facility] Chol/HDL Ratio 3.4 0.0 - 4.4 LAB CHEMISTRY METHOD 07/20/2024 11:24 AM [facility] Blood Venous blood specimen / Unknown Venipuncture / Unknown 07/20/2024 8:33 AM EST 07/20/2024 8:33 AM EST Gosia Stoner MD LAB BLOOD ORDERABLES Fi nal Result [facility] [address] [place] [address], * Nicotine and cotinine (07/20/2024 8:33 AM [...] ?<2 ng/mL Reference Ranges from: ??Clin. Chem.; ??[id number] (2001) Direct any interpretive questions to the toxicology laboratory. This is for medical use only, it is not intended for forensic use. If applicable, any drug confirmation testing reported here was developed and the performance characteristics determined by [facility]. This confirmation testing has not been cleared or approved by the FDA. The laboratory is regulated under CLIA as qualified to perform high-complexity testing. This test is used for patient testing purposes. It should not be regarded as investigational or for research. Test performed at [facility], [address], [place], [place] ??[address] ? [phone] Vida Aguilar MD, PhD - Soft Work Wrapper Layer And Examiner Blood Venous blood specimen / Unknown Venipuncture / Unknown 07/20/2024 8:33 AM EST 07/20/2024 8:33 AM EST us Gosia Stoner MD LAB BLOOD ORDERABLES Fi nal Result [facility] [address] [place], [place] [id number] * (ABNORMAL) CBC auto differential (07/20/2024 8:33 AM EST) [facility] WBC 9.5 4.8 - 10.8 K/mcL LAB HEMETOLOGY METHOD 07/20/2024 10:07 AM [facility] RBC 4.80 3.80 - 4.80 M/mcL LAB HEMETOLOGY METHOD 07/20/2024 10:07 AM [facility] Hemoglobin 13.5 11.5 - 16.0 g/dL LAB HEMETOLOGY METHOD 07/20/2024 10:07 AM [facility] Hematocrit 43.1 35.0 - 47.0 % LAB HEMETOLOGY METHOD 07/20/2024 10:07 AM [facility] MCV 89.2 79.0 - 98.0 FL LAB HEMETOLOGY METHOD 07/20/2024 10:07 AM [facility] MCH 28.0 27.0 - 32.0 pcg LAB HEMETOLOGY METHOD 07/20/2024 10:07 AM [facility] MCHC 31.3(L) 32.0 - 37.0 g/dL LAB HEMETOLOGY METHOD 07/20/2024 10:07 AM [facility] RDW 14.3 11.0 - 15.0 % LAB HEMETOLOGY METHOD 07/20/2024 10:07 AM [facility] Platelets 370 130 - 400 K/mcL LAB HEMETOLOGY METHOD 07/20/2024 10:07 AM [facility] MPV 9.2 7.0 - 11.0 FL LAB HEMETOLOGY METHOD 07/20/2024 10:07 AM [facility] NRBC 0.0 <1.0 % LAB HEMETOLOGY METHOD 07/20/2024 10:07 AM [facility] NRBC Absolute 0.00 <0.10 K/mcL LAB HEMETOLOGY METHOD 07/20/2024 10:07 AM [facility] Neutrophils Relative 55.9 % LAB HEMETOLOGY METHOD 07/20/2024 10:07 AM [facility] Lymphocytes Relative 32.1 % LAB HEMETOLOGY METHOD 07/20/2024 10:07 AM [facility] Monocytes Relative 6.9 % LAB HEMETOLOGY METHOD 07/20/2024 10:07 AM [facility] Eosinophils Relative 2.8 % LAB HEMETOLOGY METHOD 07/20/2024 10:07 AM [facility] Basophils Relative 0.7 % LAB HEMETOLOGY METHOD 07/20/2024 10:07 AM [facility] Immature Granulocytes Relative 1.6 % LAB HEMETOLOGY METHOD 07/20/2024 10:07 AM [facility] Neutrophils Absolute 5.31 1.50 - 7.00 K/mcL LAB HEMETOLOGY METHOD 07/20/2024 10:07 AM [facility] Lymphocytes Absolute 3.06 1.00 - 5.00 K/mcL LAB HEMETOLOGY METHOD 07/20/2024 10:07 AM [facility] Monocytes Absolute 0.66 0.20 - 1.00 K/mcL LAB HEMETOLOGY METHOD 07/20/2024 10:07 AM [facility] Eosinophils Absolute 0.27 0.00 - 0.50 K/mcL LAB HEMETOLOGY METHOD 07/20/2024 10:07 AM [facility] Basophils Absolute 0.07 0.00 - 0.20 K/mcL LAB HEMETOLOGY METHOD 07/20/2024 10:07 AM [facility] Immature Granulocytes Absolute 0.15(H) 0.00 - 0.03 K/mcL LAB HEMETOLOGY METHOD 07/20/2024 10:07 AM [facility] Blood Venous blood specimen / Unknown Venipuncture / Unknown 07/20/2024 8:33 AM EST 07/20/2024 8:33 AM EST us Gosia Stoner MD LAB BLOOD ORDERABLES Fi nal Result Performing Organization Address [facility] Co de Phone Number [facility] [address] [place] [address], [place] [phone] * (ABNORMAL) Iron and TIBC (07/20/2024 8:33 AM EST) Iron 52 40 - 150 mcg/dL LAB CHEMISTRY METHOD 07/20/2024 11:24 AM EST [facility] TIBC 244(L) 250 - 450 mcg/dL LAB CHEMISTRY METHOD 07/20/2024 11:24 AM EST [facility] Iron Saturation 21 15 - 50 % LAB CHEMISTRY METHOD 07/20/2024 11:24 AM EST [facility] Blood Venous blood specimen / Unknown Venipuncture / Unknown 07/20/2024 8:33 AM EST 07/20/2024 8:33 AM EST us Gosia Stonre MD LAB BLOOD ORDERABLES Fi nal Result Performing Organization Address [facility] de Phone Number [facility] [address] [place] [address], [place] [phone] * (ABNORMAL) Insulin, fasting (07/20/2024 8:33 AM EST) Insulin 33.8(H) 3.0 - 25.0 mcIU/mL LAB CHEMISTRY METHOD 07/20/2024 10:40 AM EST [facility] Blood Venous blood specimen / Unknown Venipuncture / Unknown 07/20/2024 8:33 AM EST 07/20/2024 8:33 AM EST Narrative [facility] - 07/20/2024 10:40 AM EST Insulin reference range based on fasting status. ??Insulin values vary in non- fasting individuals. us Gosia Stoner MD LAB BLOOD ORDERABLES Fi nal Result Performing Organization Address City/[facility]/ZIP Co de Phone Number [facility] [address] [place] [address], [place] [phone] * Helicobacter pylori breath test (07/20/2024 8:33 AM EST) Pathologist [facility] H Pylori Breath Test Negative Negative LAB CHEMISTRY METHOD 07/20/2024 2:18 PM EST [facility] Breath Oral cavity structure / Unknown Non-blood Collection / Unknown 07/20/2024 8:33 AM EST 07/20/2024 8:33 AM EST us Gosia Stoner MD LAB BODY FLUIDS AND STO OLS ORDERABLES Final Result Performing Organization Address [facility] Co de Phone Number [facility] [address] [place] [address], [place] [phone] * (ABNORMAL) Vitamin D 25 hydroxy (07/20/2024 8:33 AM EST) [facility] Vit D, 25-Hydroxy 14.2(L) 30.0 - 80.0 ng/mL LAB CHEMISTRY METHOD 07/20/2024 10:38 AM EST [facility] Blood Venous blood specimen / Unknown Venipuncture / Unknown 07/20/2024 8:33 AM EST 07/20/2024 8:33 AM EST us Gosia Stoner MD LAB BLOOD ORDERABLES Fi nal Result Performing Organization Address City/[facility]/ZIP Co de Phone Number [facility] [address] [place] [address], [place] [phone] * (ABNORMAL) Uric acid (07/20/2024 8:33 AM EST) [facility] Uric Acid 2.2(L) 3.1 - 7.8 mg/dL LAB CHEMISTRY METHOD 07/20/2024 11:24 AM EST [facility] Blood Venous blood specimen / Unknown Venipuncture / Unknown 07/20/2024 8:33 AM EST 07/20/2024 8:33 AM EST us Gosai Stoner MD LAB BLOOD ORDERABLES Fi nal Result Performing Organization Address [facility] Co de Phone Number [facility] [address] [place] [address], [place] [phone] * Thyroid stimulating hormone (07/20/2024 8:33 AM EST) Pathologist [facility] TSH 1.99 0.40 - 4.00 mcIU/mL LAB CHEMISTRY METHOD 07/20/2024 10:38 AM EST [facility] Blood Venous blood specimen / Unknown Venipuncture / Unknown 07/20/2024 8:33 AM EST 07/20/2024 8:33 AM EST us Gosia Stoner MD LAB BLOOD ORDERABLES Fi nal Result Performing Organization Address [facility] de Phone Number [facility] [address] [place] [address], [place] [phone] * Vitamin B1 (07/20/2024 8:33 AM EST) Pathologist [facility] Vitamin B1 Whole Blood 57 38 - 122 ug/L 07/23/2024 8:04 AM EST [facility] Comment: This test was developed and the performance characteristics determined by [facility]. It has not been cleared or approved by the FDA. The laboratory is regulated under CLIA as qualified to perform high-complexity testing. This test is used for patient testing purposes. It should not be regarded as investigational or for research. Test performed at [facility], [address] , [place], [place] ??[address] ? [phone] Vida Aguilar MD, PhD - Soft Work Wrapper Layer And Examiner Blood Venous blood specimen / Unknown Venipuncture / Unknown 07/20/2024 8:33 AM EST 07/20/2024 8:33 AM EST us Gosia Stoner MD LAB BLOOD ORDERABLES Fi nal Result [facility] [address] [place] [address] * Magnesium (07/20/2024 8:33 AM EST) Pathologist [facility] Magnesium 2.2 1.9 - 2.6 mg/dL LAB CHEMISTRY METHOD 07/20/2024 10:41 AM EST [facility] Blood Venous blood specimen / Unknown Venipuncture / Unknown 07/20/2024 8:33 AM EST 07/20/2024 8:33 AM EST us Gosia Stoner MD LAB BLOOD ORDERABLES Fi nal Result Performing Organization Address [facility] Co de Phone Number [facility] [address] [place] [address], [place] [phone] * (ABNORMAL) Hemoglobin A1c (07/20/2024 8:33 AM EST) [facility] Hemoglobin A1C 7.9(H) <6.5 % LAB CHEMISTRY METHOD 07/20/2024 2:41 PM EST [facility] Mean Bld Glu Estim. 180 mg/dL LAB CHEMISTRY METHOD 07/20/2024 2:41 PM EST [facility] Blood Venous blood specimen / Unknown Venipuncture / Unknown 07/20/2024 8:33 AM EST 07/20/2024 8:33 AM EST us Gosia Stoner MD LAB BLOOD ORDERABLES Fi nal Result Performing Organization Address City/[facility]/ZIP Co de Phone Number [facility] [address] [place] [address], [place] [phone] * Folate (07/20/2024 8:33 AM EST) Folate 8.2 2.8 - 17.0 ng/ml LAB CHEMISTRY METHOD 07/20/2024 11:24 AM EST [facility] Blood Venous blood specimen / Unknown Venipuncture / Unknown 07/20/2024 8:33 AM EST 07/20/2024 8:33 AM EST us Gosia Stoner MD LAB BLOOD ORDERABLES Fi nal Result [facility] [address] [place] [address], [place] [phone] * Ferritin (07/20/2024 8:33 AM EST) [facility] Ferritin 113 8 - 252 ng/mL LAB CHEMISTRY METHOD 07/20/2024 11:24 AM EST [facility] Blood Venous blood specimen / Unknown Venipuncture / Unknown 07/20/2024 8:33 AM EST 07/20/2024 8:33 AM EST us Gosia Stoner MD LAB BLOOD ORDERABLES Fi nal Result [facility] [address] [place] [address], [place] [phone] * Vitamin B12 (07/20/2024 8:33 AM EST) Pathologist [facility] Vitamin B-12 391 250 - 900 pcg/mL LAB CHEMISTRY METHOD 07/20/2024 11:24 AM EST [facility] Blood Venous blood specimen / Unknown Venipuncture / Unknown 07/20/2024 8:33 AM EST 07/20/2024 8:33 AM EST us Gosia Stoner MD LAB BLOOD ORDERABLES Fi nal Result Performing Organization Address [facility]/ZIP Co de Phone Number [facility] [address] [place] [address], * Cortisol (07/20/2024 8:33 AM EST) Cortisol 15.1 mcg/dL LAB CHEMISTRY METHOD 07/20/2024 10:40 AM EST [facility] Blood Venous blood specimen / Unknown Venipuncture / Unknown 07/20/2024 8:33 AM EST 07/20/2024 8:33 AM EST [facility] - 07/20/2024 10:40 AM EST CORTISOL REFERENCE RANGE ?? 8 AM SPEC: ??5.0-23.0 mcg/dL ?? 4 PM SPEC: ??3.0-16.0 mcg/dL ?? 8 PM SPEC: ??<5.0 mcg/dL Gosia Stoner MD LAB BLOOD ORDERABLES Fi nal Result Performing Organization Address [facility] Co de Phone Number [facility] [address] [place] [address], * (ABNORMAL) Comprehensive metabolic panel (07/20/2024 8:33 AM EST) Pathologist [facility] Sodium 136 133 - 145 mmol/L LAB CHEMISTRY METHOD 07/20/2024 11:24 AM [facility] Potassium 4.5 3.5 - 5.5 mmol/L LAB CHEMISTRY METHOD 07/20/2024 11:24 AM [facility] Chloride 100 96 - 110 mmol/L LAB CHEMISTRY METHOD 07/20/2024 11:24 AM [facility] CO2 25 21 - 32 mmol/L LAB CHEMISTRY METHOD 07/20/2024 11:24 AM [facility] Anion Gap 11 3 - 11 LAB CHEMISTRY METHOD 07/20/2024 11:24 AM [facility] Glucose 148(H) 70 - 100 mg/dL LAB CHEMISTRY METHOD 07/20/2024 11:24 AM [facility] BUN 15 5 - 25 mg/dL LAB CHEMISTRY METHOD 07/20/2024 11:24 AM [facility] Creatinine 0.71 0.50 - 1.10 mg/dL LAB CHEMISTRY METHOD 07/20/2024 11:24 AM [facility] eGFR 105 >=60 mL/min/1. 73m2 LAB CHEMISTRY METHOD 07/20/2024 11:24 AM [facility] Comment:Calculation based on the??Chronic Kidney Disease Epidemiology Collaboration (CKD-EPI) equation refit??without adjustment for race. BUN/Creatinine Ratio 21.1 LAB CHEMISTRY METHOD 07/20/2024 11:24 AM [facility] Calcium 9.7 8.5 - 10.5 mg/dL LAB CHEMISTRY METHOD 07/20/2024 11:24 AM [facility] AST (SGOT) 16 10 - 42 unit/L LAB CHEMISTRY METHOD 07/20/2024 11:24 AM [facility] ALT (SGPT) 29 10 - 60 unit/L LAB CHEMISTRY METHOD 07/20/2024 11:24 AM [facility] Alkaline Phosphatase 124(H) 42 - 121 unit/L LAB CHEMISTRY METHOD 07/20/2024 11:24 AM [facility] Total Protein 7.7 6.0 - 8.0 g/dL LAB CHEMISTRY METHOD 07/20/2024 11:24 AM [facility] Albumin 3.6 3.2 - 5.0 g/dL LAB CHEMISTRY METHOD 07/20/2024 11:24 AM [facility] Total Bilirubin 0.4 0.0 - 1.4 mg/dL LAB CHEMISTRY METHOD 07/20/2024 11:24 AM [facility] Blood Venous blood specimen / Unknown Venipuncture / Unknown 07/20/2024 8:33 AM EST 07/20/2024 8:33 AM EST Gosia Stoner MD LAB BLOOD ORDERABLES Fi nal Result [facility] ([facility]) [facility] [address] [place] [address], [place] [phone] * HM Urine Albumin Creatinine Ratio (02/26/2014) Urine Albumin Creatinine Ratio Abstracted Historical Provider HEALTH MAINTENANCE Final Result from Last 3 Months or Most Recently Relevant to Health Maintenance Insurance [employer] Care Teams Material Expediter Relationship Specialty Start Date End Date Braulio Carbajal [address] [place] [address] PCP - General Internal Medicine 03/20/22
--- OUTSIDE RECORDS SUMMARY | 2024-10-13 08:40 | XMS_ITS | Data Portability ---
Author Organization [place] [facility] Patel AONE [place] Address [address] [place] [id number] Care Team Providers Care Senior Controller Name Role Phone JAVIER LANGLEY Referring Provider [phone] Assessment Encounter Date Assessment Date Assessment LastModified by Organization Details LastModified Time 06/18/2024 06/18/2024 IMPRESSION: 49-year-old [id number] t woman with RIGHT lateral epicondylitis. PLAN: [...] Gonzalez MS, PA-C in indirect [facility] Clark Andino MD. He [...] scale). 2023 024 [email or web address] [facility], [address], [address], [place], [address], 08/13/2024 15:48:51 Surgeries None recorded. Imaging XR, hip, unilatera l, 2 or 3 view 2023 024 [email or web address] [facility], [address], [address], [place], [address], 07/07/2024 11:51:40 XR, elbow, 3 or more view 2023 024 [facility], [address], [address], [place], [address], 06/19/2024 16:54:16 Medication Orders meloxicam 15 mg tablet 2023 024 [facility], [address] [place] [address], [place], [address], 06/18/2024 14:11:51 Patient TargetsNo targets recorded. Patient Instructions Encounter Date Encounter Id Patient Instructions Last Modified By Organization Details Last Modified Time 06/18/2024 [id number] tennis elbow: exercises Not available 06/18/2024 14:11:37 [...] LEFT}} elbow. Not available 06/18/2024 13:55:08 07/07/2024 [id number] {{2 3 4* 5 6 7 8 [...] Organization Details Recorded Time Lateral epicondyli tis 767614366 Active 2023 Oscar Avina MD [address], [place], [address] , [place] [facility] 14:10:53 Lateral epicondyli tis 628543175 Active 2023 Oscar Avina MD [address], [place], [address] , [place] [facility] 4 14:11:09 Osteoarthr itis of left hip joint 8011880758482 08 Active 2023 RADHA GONZALEZ PA-C [address], [place], [address] , [place] [facility] 4 11:06:02 Problem Notes None recorded. [...] SNOMED-CT Code Diagnosis ICD10 Code Diagnosis Note [id number] Oscar Avina MD [facility] [address] [place] [address] 06/18/2024 13:20:00 06/18/2024 14:16:30 Pain in elbow 70908519 M25.521 Lateral epicondylitis 20 0963246 M77.10 [id number] Clark Andino MD [facility] [address] [place] [address] 07/07/2024 10:17:23 07/07/2024 11:04:15 Hip pain 85894726 M25.552 Osteoarthr itis of left hip joint [id number] 81040 M16.12 Health Concerns Section Related Observation LastModified by Organization Detai ls LastModified Time None Recorded Concern Status LastModified by Organization Details LastModified Time None Recorded Advance Directives Directive None Recorded Payers Encounter Date Sequence Insurance Name Policy Number Policy Fountain Covered Member ID Fountain Member ID Guarantor Name 06/18/2024 1 [employer] [id number] Glorymar López Colon [id number] Glorymar López-Col on 07/07/2024 1 [employer] [id number] Glorymar López Colon [id number] Glorymar López-Col on Notes Date Note Type [...] 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 She is [id number] . Oscar Avina MD [address], [place], [address], [place] [facility] 06/18/2024 14:13:14 07/07/2024 text/html 49-year-old fema [...] RADHA GONZALEZ PA-C [address], [place], [address], [place] [facility] 07/07/2024 11:07:40 OBGyn Episode No OBEpisode recorded.
--- OUTSIDE RECORDS SUMMARY | 2024-10-13 08:40 | XMS_ITS | Data Portability ---
Author Organization [place] - [facility],, ADRIANA LARA MD Address [address] [address] Assessment No assessment recorded. Plan of Treatment Reminders Order Date Submit Date Provider Last Modified By Organization Details Last Modified Time Details Appointments None recorded. Lab pap test, thinprep, cervical 2021 022 [email or web address] [facility], Cytopathology Service, [address] [place] [address], [address], 2 07:36:24 fecal occult blood, stool 2021 022 [email or web address] In-Office Order, Internal Use Only DO Not Attach Compendium DO Not Attach Compendium, Do Not Delete/merge, [id number] 2 11:34:07 pap test, thinprep, cervical 2020 021 [email or web address] [facility], Cytopathology Service, [address] [place] [address], [address], 1 07:14:16 fecal occult blood, stool 2020 021 [email or web address] 1 In-Office Order, Internal Use Only DO Not Attach Compendium DO Not Attach Compendium, Do Not Delete/merge, [id number] 1 13:58:54 pap test, thinprep, cervical 2019 020 [email or web address] [facility], Cytopathology Service, [address] [place] [address], [address], 0 08:59:10 fecal occult blood, stool 2019 020 [email or web address] In-Office Order, Internal Use Only DO Not Attach Compendium DO Not Attach Compendium, Do Not Delete/merge, [id number] 0 08:59:10 pap test, thinprep, cervical 2018 019 [facility], Cytopathology Service, [address] [place] [address], [address], 9 04:32:23 fecal occult blood, stool 2018 019 [email or web address] In-Office Order, Internal Use Only DO Not Attach Compendium DO Not Attach Compendium, Do Not Delete/merge, [id number] 9 07:31:20 pap test, thinprep, cervical 2014 015 [facility], Cytopathology Service, [address] [place] [address], [address], 5 12:26:29 chlamydia sp, culture, unspecifi ed specimen 2014 015 [facility], Cytopathology Service, [address] [place] [address], [address], 5 08:24:20 NG DNA, PCR, genital 2014 015 [facility], Cytopathology Service, [address] [place] [address], [address], 5 08:24:20 test, urine 2014 015 [email or web address] 1 In-Office Order, Internal Use Only DO Not Attach Compendium DO Not Attach Compendium, Do Not Delete/merge, [id number] 5 11:43:08 Referral None recorded. Procedures None recorded. Surgeries None recorded. Imaging MAMMO, screening , digital, bilateral 2021 022 [facility] Orders, [address], [address], [place], [address], 4 07:16:34 MAMMO, screening , digital, bilateral 2020 021 [facility] Orders, [address], [address], [place], [address], 2 07:36:18 MAMMO, screening , digital, bilateral 2019 020 [facility] (Mammography), [address] [facility], [place], [address], 1 07:41:40 MAMMO, screening , digital, bilateral 2018 019 [facility] Imaging Orders, [address], [place], [address], 0 07:25:26 Medication Orders None recorded. Patient TargetsNo targets recorded. Patient Instructions Encounter Date Encounter Id Patient Instructions Last Modified By Organization Details Last Modified Time 12/07/2014 [id number] She is here for annual exam. Her [...] irregular every 4 to 6 weeks, no [id number] no for 6 weeks, check u preg, [...] in detail. Not available 12/07/2014 11:43:09 09/01/2018 [id number] She is here for annual exam. She has not been here since 2014. She was seeing [facility] infertility but they gave up on theat and put in a Mirena 2 years ago. No menses. Her diabetes has been Bad. In 07/2016 she started a process to do bariatric surgery at [facility]. She went through all the counseling [...] latest A1C was 10, in 06/18, the [facility] infertility referred her to [...] well. 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 She is going back [...] questions answered. Not available 09/01/2018 10:07:54 09/08/2019 [id number] She is here for annual exam, her weight is stable at 367 pounds. Her was in the ICU for 4 weeks due to sepsis, he is better now though. She had a Mirena placed 3 years ago, no menses. note form 2019: She is here for annual exam. She has not been here since 2014. She was seeing [facility] infertility but they gave up on theat and put in a Mirena 2 years ago. No menses. Her diabetes has been Bad. In 07/2016 she started a process to do bariatric surgery at [facility]. She went through all the counseling [...] get the date of IUD insertion at [facility] for us so that [...] detail. rebecca Not available 09/08/2019 15:23:23 04/04/2021 [id number] learning about healthy weight rebecca Not available 04/04/2021 13:58:54 She is here for annual exam, weight is 391 pounds, BMI is 58.6. She had a Mirena inserted 08/2016. No menses. Her mother earlier this year due to natural causes, in [place], she is still grieving. She and her are , she wanted to go to couples counseling but he would only go in [place] and they could not find a kong[place] Hungarian speaking counselor. Note from 2019: She is [...] a process to do bariatric surgery at [facility]. She went through all the counseling ,etc, but things fell through the cracks. She is considering going back again. she had weighted more than 400 pounds last year, she lost some weight this past year with diet and exercise but still weighs 366 pounds today. She appears to be doing well. She and I discussed having her go back to [facility] to get back into their weight [...] breast. [email or web address] Not available 04/04/2021 14:00:20 04/17/2022 [id number] learning about healthy weight Not available 04/17/2022 [...] this year due to natural causes, in [place], she is still grieving. She and her are , she wanted to go to couples counseling but he would only go in [place] and they could not find a kong[place] Hungarian speaking counselor. She appears to be doing [...] DO Not Attach Compendium, Do Not Delete/merge, [id number] 04/04/2021 13:36:07 02/04/09/08/2019 fecal occul t blood , stool Occult Blood negati ve Not Available In-Office Order Internal Use Only DO Not Attach Compendium DO Not Attach Compendium, Do Not Delete/merge, [id number] 09/08/2019 15:00:26 09/01/19 19 09/01/2018 fecal occul t blood , stool Occult Blood negati ve Not Available In-Office Order Internal Use Only DO Not Attach Compendium DO Not Attach Compendium, Do Not Delete/merge, [id number] 09/01/2018 09:30:38 12/08/19 15 12/07/2014 pregn marshal test, urine HCG negati ve Not Available In-Office Order Internal Use Only DO Not Attach Compendium DO Not Attach Compendium, Do Not Delete/merge, [id number] 12/07/2014 10:52:47 12/08/19 15 12/07/2014 gener al5ca se [email or web address] RESUL TS OF GEN-P ROBE APTIM A COMBO 2 ASSAY Chlam ydia: NEGAT SÁNCHEZ N. gonor rhoea e: NEGAT SÁNCHEZ GENANIRANJAN RIOS M.D., Patho logis t (Case elect martin sy chuy d 12 09 2014) [facility] INFOR MATIO N: LPS NEG SOURC E: ThinP rep Pap for CT/GC Gross Descr iptio n: ThinP rep Vial Recei joanne. Physi JAYSON Russ N /#[phone]/2 [id number] [phone] Cytop athol ogy servi carlos provi ded by [facility] at the above addre ss. Not Available [facility], Cytopathology Service [address] [facility], [place], [address], 12/09/2014 15:06:31 12/08/19 15 12/07/2014 pap, LB [id number] ThinP rep Pap, Image d: NEGAT SÁNCHEZ [...] at the above addre ss. Not Available [facility], Cytopathology Service [address] [place] [address], [address], 12/14/2014 12:26:29 09/01/19 19 09/01/2018 pap, LB [id number] ThinP rep Pap, Image d: NEGAT SÁNCHEZ [...] . LPS 5 NEG, Z12.4 Not Available [facility], Cytopathology Service [address] [place] [address], [address], 09/02/2018 17:26:28 09/08/19 20 09/08/2019 pap, LB [id number] ThinP rep Pap, Image d: NEGAT SÁNCHEZ [...] . LPS NEG [Z12. 4] Not Available [facility], Cytopathology Service [address] [place], [address], 09/10/2019 13:06:44 04/04/20 21 04/04/2021 PAP1C ASE [id number] ThinP rep Pap, Image d: NEGAT SÁNCHEZ [...] LPS 0 NEG [Z12. 4] Not Available [facility], Cytopathology Service [address] [place] [address], [address], 04/12/2021 13:55:52 04/17/2004/17/2022 PAP1C ASE [email or web address] ThinP rep Pap, Image d: NEGAT SÁNCHEZ [...] IUD, LPS neg. [z01. 419] Not Available [facility], Cytopathology Service [address] [place] [address], [address], 04/23/2022 08:11:00 04/17/2004/17/2022 fecal occul t blood , stool Occult Blood negati ve Not Available In-Office Order Internal Use Only DO Not Attach Compendium DO Not Attach Compendium, Do Not Delete/merge, [id number] 04/17/2022 10:29:09 Result Notes None recorded. Problems Name Problem SNOMED Code Status Onset Date Resolution Date Notes Provider Name and Address Organization Details Recorded Time Candidal vulvovaginiti s 36235148 Active Not Available [facility] 3 03:01:06 Irritable bowel syndrome 75047561 Active Not Available [facility] 3 03:01:06 Obesity 285771214 Active Not Available [facility] 3 03:01:06 Oligoovulator y dysfunctional uterine bleeding 290100311 Active Adriana Lara MD [address], [place], [address] , [place] - [facility], 5 11:43:08 Uncontrolled type 2 diabetes mellitus 892117803 Active Not Available [facility] 3 03:01:06 Primary female infertility 0557967 Active Not Available [facility] 3 03:01:06 Pruritus of vulva 59464896 Active Not Available [facility] 3 03:01:06 Pain in pelvis 78874011 Active Adriana Lara MD [address], [place], [address] , [place] - [facility], 4 15:07:42 Glycosuria 74893929 Active Adriana Lara MD [address], [place], [address] , [place] - [facility], 4 15:07:42 Problem Notes None recorded. Procedures Surgical History Date Name Laterality Status Provider Name and Address Organization Details Recorded Time 04/05/20 20 Most Recent Mammogram completed Yashira Alonso [place] - [facility], 04/17/2022 10:36:13 08/05/19 Cholecystectomy completed Taryn Beasley [place] - [facility], 11/10/2012 13:22:27 Imaging Results None recorded. Procedure Notes None recorded. Medical Equipment None Reported. Allergies Allergen ID Allergen Name Allergen Category Reaction Reaction Severity Criticality Documentation Date Start Date Code Code System Note Provider Name and Address Organization Details Recorded Time 04817 [facility] environfl nt,medica tion rash Not available Not available 09/08/2019 00558 RxNorm Yashira Celeste [place] [facility] in [facility], 0 14:53:01 7561 Product containin g penicilli n (product) medicatio n rash Not available Not available 11/10/2012 79524 8001 SNOMED Taryn Beasley [place] - Ernesto in [facility], 3 13:11:08 Medications Name Sig Start Date [...] henidate ER 40 mg capsule,ex tended release [id number] -50 TAKE 1 CAPSULE BY MOUTH EVERY [...] Available Not Available Not Available Afluria Quad [id number] (PF) 60 mcg (15 mcg x 4)/0.5 mL IM syringe active Not Available Not Available N ot Available FreeStyle Alexei 14 Day [place] FOR TESTING GLUCOSE LEVELS active Not Available [...] 9 175.26 cm 95 /min 54.2 kg/m2 011320. 68 g 122 mm[Hg] 65 mm[Hg] Taryn Beasley [place] - [facility] in [facility], 9 09:12:36 Date Recorded Body weight Body mass index (BMI) Body height Heart rate Systolic blood pressure Diastolic blood pressure Provider Name and Address Organization Details Last Updated DateTime 0 206779. 12 g 55 kg/m2 173.99 cm 110 /min 132 mm[Hg] 77 mm[Hg] Yashira Orozco in [facility], 0 14:53:44 Date Recorded Body height Body temperature Body mass index (BMI) Body weight Heart rate Systolic blood pressure Diastolic blood pressure Provider Name and Address Organization Details Last Updated DateTime 1 173.99 cm 97.2 [degF] 58.6 kg/m2 918619. 34 g 104 /min 141 mm[Hg] 75 mm[Hg] Yashira Orozco in [facility], 1 13:34:29 Date Recorded Body weight Body mass index (BMI) Body height Body temperature Heart rate Systolic blood pressure Diastolic blood pressure Provider Name and Address Organization Details Last Updated DateTime 2 298896. 19 g 54.3 kg/m2 172.72 cm 98.1 [degF] 93 /min 142 mm[Hg] 79 mm[Hg] Yashira Alonso [place] - [place] in [facility], 2 10:33:37 Date Recorded Body weight Heart rate Body mass index (BMI) Body height Systolic blood pressure Diastolic blood pressure Provider Name and Address Organization Details Last Updated DateTime 5 606343. 1769 g 103 /min 54.6 kg/m2 175.26 cm 119 mm[Hg] 71 mm[Hg] Yashira Alonso [place] - [place] in [facility], 5 10:17:20 Social History Question Answer Notes LastModified by Organizat ion Details LastModified Time Tobacco Smoking Status Never Smoker Not Available [employer] 06/07/2020 03:19:40 What Is Your Level Of Alcohol Consumption? None [id number] Information not available 06/07/2020 What Is Your Level Of Caffeine Consumption? Occasional [id number] Information not available 06/07/2020 In The 14 [...] Type Of Diet Are You Following? REGULAR [id number] Information not available 06/07/2020 Which Illicit Or Recreational Drugs Have You Used? None [id number] Information not available 06/07/2020 Do You Reside In Or Have You Traveled To An Area Where Ebola Virus Transmission Is Active? No [id number] Information not available 06/07/2020 Do You Or Have You Ever Used E-cigarettes Or Vape? Never Used Electronic Cigarettes [id number] Information not available 06/07/2020 Education Post Graduate Information not available 11/10/2012 What Is The Highest Grade Or Level Of School You Have Completed Or The Highest Degree You Have Received? [id number] Information not available 04/04/2021 Who Is Your Employer? [employer] 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 Yes [id number] Information not available 06/07/2020 Do You Or Have You Ever Used Smokeless Tobacco? Never Used Smokeless Tobacco [id number] Information not available 06/07/2020 How Much Tobacco Do You Smoke? No [id number] Information not available 06/07/2020 General Stress Level Medium Information not available 09/08/2019 Do You Feel Stressed (tense, Restless, Nervous, Or Anxious, Or Unable To Sleep At Night)? [id number] Information not available 04/04/2021 Do You Use Any Illicit Or Recreational Drugs? No Information not available 04/04/2021 Have You Recently (within The Last 12 Weeks, Or During A Current ) Traveled To Or Lived In A Zika-affected Area? No [email or web address] Information not available 09/01/2018 Do You Or Have You Ever Used Any Other Forms Of Tobacco Or Nicotine? No Information not available 04/04/2021 Sex: Female Functional Status Question Answer Note LastModified by Organization D etails LastModified Time What is your exercise level? None [id number] Information not available 06/07/2020 Mental Status None [...] MD [address], [place], [address], [place] Orozco in [facility], 11/10/2012 13:43:51 Tdap 3 completed [place] Sexton in [facility], 12/11/2012 15:22:23 Influenza, split virus, quadrivalent, preservative 9 completed [place] Sexton in [facility], 09/01/2018 09:26:24 COVID-19, mRNA, LNP-S, PF, 100 mcg/0.5mL dose or 50 mcg/0.25mL dose 1 completed [place] Ramos in [facility], 04/04/2021 13:38:30 Influenza, split virus, quadrivalent, preservative 1 completed [place] Ramos in [facility], 04/17/2022 10:34:55 Past Encounters Encounter ID Performer Location Encounter Start Date Encounter Closed Date Diagnosis/Indication Diagnosis SNOMED-CT Code Diagnosis ICD10 Code Diagnosis Note [id number] Yashira LARA MD [address] [place] [address] 11/10/2012 12:51:19 11/11/2012 08:37:47 [id number] MD ADRIANA Dickson MD [address] [place] [address] 12/11/2012 15:08:24 12/12/2012 16:10:03 [id number] Taryn LARA MD [address] [place] [address] 08/21/2013 13:33:26 08/21/2013 15:51:36 Pain in pelvis 01104813 Acute lowe r urinary tract infection 844105735 Glycosuria 46019344 [id number] Taryn Beasley ADRIANA LARA MD [address] [place] [address],[place] [address] 11/13/2013 09:28:08 11/13/2013 13:10:39 Specialized medical examination 90375704 [id number] ADRIANA LARA MD [address] [place] [address],[place] [address] 12/07/2014 10:02:59 12/07/2014 13:34:46 Specialized medical examination 59478717 Venereal d isease screening 361600229 Oligoovula tory dysfunctional uterine bleeding 653817071 [id number] MD ADRIANA Dickson MD [address] [place] [address],[place] [address] 09/01/2018 09:04:26 09/01/2018 12:06:59 Specialized medical examination 76206203 Z01.419 Screening for malignant neoplasm of rectum 102925121 Z12.12 Screening mammography 24 939675 Z12.31 [id number] MD ADRIANA Dickson MD [address] [place] [address],[place] [address] 09/08/2019 14:46:50 09/08/2019 15:34:18 Specialized medical examination 27387589 Z01.419 Screening for malignant neoplasm of rectum 147422448 Z12.12 Screening mammography 24 217408 Z12.31 [id number] MD ADRIANA Dickson MD [address] [place] [address],[place] [address] 04/04/2021 13:29:45 04/04/2021 14:48:20 Specialized medical examination 33375648 Z01.419 Screening for malignant neoplasm of rectum 385406159 Z12.12 Screening mammography 24 084292 Z12.31 [id number] MD ADRIANA Dickson MD [address] [place] [address],[place] [address] 04/17/2022 10:28:03 04/17/2022 11:34:15 Specialized medical examination 31621824 Z01.419 Screening for malignant neoplasm of rectum 676316992 Z12.12 Screening mammography 24 583126 Z12.31 Health Concerns Section Related Observation LastModified by Organization Detai ls LastModified Time None Recorded Concern Status LastModified by Organization Details LastModified Time None Recorded Advance Directives Directive None Recorded Payers Encounter Date Sequence Insurance Name Policy Number Policy Fountain Covered Member ID Fountain Member ID Guarantor Name 12/07/2014 1 [facility] [id number] Glorymar López [id number] Glorymar López Colon 09/01/2018 1 [facility] [id number] Glorymar López [id number] Glorymar López Colon 09/08/2019 1 [facility] [id number] Glorymar López [id number] Glorymar López Colon 04/04/2021 1 [facility] [id number] Glorymar López [id number] Glorymar López Colon 04/17/2022 1 [facility] [id number] Glorymar López [id number] Glorymar López Colon Notes Date Note Type Note Provider Name and Address Organization Details Recorded Time 09/01/2018 text/html She is here for annual exam. She has not been here since 2014. She was seeing [facility] infertility but they gave up on theat and put in a Mirena 2 years ago. No menses. Her diabetes has been Bad. In 07/2016 she started a process to do bariatric surgery at [facility]. She went through all the counseling [...] latest A1C was 10, in 06/18, the [facility] infertility referred her to endocrinology in 06/18, she was given instructions for rescue insulin doses when her sugars are high, she is doing that now, she had an A1C drawn on 11/25/14 but has not received the results yet. Adriana Lara MD [address], [place], [address], [place] - [facility], 09/01/2018 10:08:27 09/08/2019 text/html [...] a process to do bariatric surgery at [facility]. She went through all the counseling ,etc, but things fell through the cracks. She is considering going back again. she had weighted more than 400 pounds last year, she lost some weight this past year with diet and exercise but still weighs 366 pounds today. Adriana Lara MD [address], [place], [address], [place] - [facility], 09/08/2019 15:23:49 04/04/2021 text/html She is here for annual exam, weight is 391 pounds, BMI is 58.6. She had a Mirena inserted 08/2016. No menses. Her mother earlier this year due to natural causes, in [place], she is still grieving. She and her are , she wanted to go to couples counseling but he would only go in [place] and they could not find a [place] Hungarian speaking counselor. Note from 2020: She is [...] a process to do bariatric surgery at [facility]. She went through all the counseling ,etc, but things fell through the cracks. She is considering going back again. she had weighted more than 400 pounds last year, she lost some weight this past year with diet and exercise but still weighs 366 pounds today. Adriana Lara MD [address], [place], [address], [place] - [facility], 04/04/2021 14:00:40 04/17/2022 text/html [...] this year due to natural causes, in [place], she is still grieving.She and her are , she wanted to go to couples counseling but he would only go in [place] and they could not find a [place] Hungarian speaking counselor. Adriana Lara MD [address], [place], [address], [place] - [facility], 04/17/2022 11:00:04 OBGyn Episode No OBEpisode recorded.
--- OUTSIDE RECORDS SUMMARY | 2024-10-13 08:40 | XMS_ITS | Clinical Summary ---
Author Organization [facility] Address [address] [place] [address] 7[address] [place] [address] Care Team Providers Care Copy Cutter Name Role Phone Unavailable Primary Care Provider [...] 2 diabetes mellitus without complication, unspecified whether joint terminal attack controller insulin use ([facility]) Inject 1.5 mg under the skin 1 [...] the past 12 months, has t he [employer], gas, oil or water [employer] threatened to shut off services in your [...] diabetes mellitus without complication, unspecified whether senior living insulin use (CMS/HCC) ZZZ HISTORICAL HEPATITIS C [...] EDT Narrative 05/25/2024 4:12 PM EDT ? [facility] [place] ? [address] ?[place] [address] ? Mammography Report ? Signed ? Patient: López,Glorymar ?MR#: [id number] ?? [id number] ? : 1975 ?Acct:[id number] ? Age/Sex: 48 / F ?ADM Date: 10/21/24 ? Loc: HO.MAMMO ? Attending Dr: Ryan Prescott MD ? Ordering Physician: Ryan Prescott MD ?Results: 2Ben ?? ign Findings ? Date of Service: 05/25/24 ?Follow Up: 1 Year From Orig ?? inal Mammogram ? Procedure(s): MM tomosynthesis diagnostic BI ?? Accession Number(s): [id number] ? cc: Braulio Carbajal MD; Ryan Prescott [...] DD/ 1300 ? TD/TT: 05/25/24 1350 ? Gunner Mate: ? Procedure Note Tari, Image - 05/25/2024 [facility] [place] [address] Mammography Report Signed Patient: Julia LópezMR#: [id number] : 1975Acct:[id number] Age/Sex: 48 / FADM Date: 05/25/24 Loc: HO.MAMMO Attending Dr: Ryan Prescott MD Ordering Physician: Ryan Prescottults: 2Ben ign Findings Date of Service: 05/25/24Follow Up: 1 Year From Orig inal Mammogram Procedure(s): MM tomosynthesis diagnostic BI Accession Number(s): [id number] cc: Braulio Carbajal MD; Ryan Prescott MD [...] 05/25/24 1609 DD/ 1300 TD/TT: 05/25/24 1350 Gunner Mate: [facility] External Provider IMG BI PROCEDURES Edited Result - Final * Lipid Panel, Standard (01/01/2023 10:20 AM EDT) Triglycerides 73 mg/dL [facility] Comment:Desirable Triglyceri de: less than 150 mg/dLBorderline High Triglyceride 150-199 mg/dLHigh Triglyceride: 200-499 mg/dLVery High Triglyceride: greater than or equal to 5OO mg/dL Cholesterol 101 mg/dL [facility] Comment:Desirable Cholestero l: less than 200 mg/dLBorderline High Cholesterol: 200-239 mg/dLHigh Cholesterol: greater than 239 mg/dL LDL Cholesterol Calculated 53 mg/dl [facility] Comment:Desirable LDL: less than 100 mg/dLNear Optimal/Above Optimal LDL: 110- 129 mg/dLBorderline High LDL: 130-159 mg/dLHigh LDL: 160-189 mg/dLVery High LDL: greater than or equal to 190 mg/dL HDL Cholesterol 34 mg/dL [facility] Comment:Desirable HDL: great er than 40 mg/dL Note: This HDL assay may give artificially low results in patients with liver disease. 01/01/2023 10:2 0 AM EDT 01/01/2023 10:20 AM EDT [facility] External Provider LAB BLO OD ORDERABLES Final Result [facility] [address] [place] [address] [phone] * HEPATITIS C AB W/REFL TO HCV RNA, QN, PCR (01/24/2022 8:19 AM EDT) HEPATITIS C ANTIBODY NON-REACT SÁNCHEZ NON-REACT SÁNCHEZ [facility] INDEX 0.02 <1.00 [facility] Comment: ?? HCV antibody was non-reactive. There is no laboratory ?? evidence of HCV infection. ?? In most cases, no further action is required. However, if recent HCV exposure is suspected, a test for HCV RNA (test code 97776) is suggested. ?? For additional information please refer to http://[employer]/faq/HET72i7 (This link is being provided for informational/ educational purposes only.) ?? 01/24/2022 8:19 AM EDT Braulio Campbell MD HISTORICAL/NON ORD ERABLE LABS Final Result Performing Organization Address City/[facility]/ZIP Co de Phone Number [facility] [address] * HIV 1/2 ANTIGEN/ANTIBODY,FOURTH GENERATION W/RFL (01/24/2022 8:19 AM EDT) HIV-1/2 ANTIGEN AND ANTIBODIES, 4TH GENERATION W/ REFLEX NON-REACT SÁNCHEZ NON-REACT SÁNCHEZ [facility] Comment: HIV-1 antigen and HIV-1/HIV-2 [...] ? For additional information please refer to http://education.[employer]/faq/UFU427 (This link is being provided for informational/ educational purposes only.) ? The performance of this assay has not been clinically validated in patients less than 2 years old. ?? 01/24/2022 8:19 AM EDT us Braulio Campbell MD LAB BLOOD ORDERABL ES Final Result [facility] [address] from Last 3 Months or Most Recently Relevant to Health Maintenance Insurance [employer] [place] [phone]
--- OUTSIDE RECORDS SUMMARY | 2024-10-13 08:41 | XMS_ITS | Encounter Summary ---
Author Organization [employer] Address [address] [facility] 7 [place] [address] Care Team Providers Care Systems Engineering Manager Name Role Phone Braulio Carbajal MD Primary Care Prov ider Reason for Visit * Reason Onset Date Comments Med Refill 02/28/2023 Encounter Details Date Type Department Care Team (Late st Contact Info) Description 02/28/2023 Refill [facility] [address] [place] [address] Braulio Carbajal MD [address] [place] [address] Mixed hyperlipidemia; Primary hypertension; Type 2 diabetes [...] (CMS/HCC) documented in this encounter Care Teams Systems Engineering Manager Relationship Specialty Start Date End Date Braulio Carbajal MD [address] [place] [address] PCP - General Internal Medicine 12/14/19 04/28/24 documented as of this encounter
--- OUTSIDE RECORDS SUMMARY | 2024-10-13 08:41 | XMS_ITS | Clinical Summary ---
Author Organization [facility] Address [address] [place] [address] Care Team Providers Care Cardiac Monitor Name Role Phone Braulio Lopez MD Primary Care Provider [phone] Allergies Active Allergy Reactions Criticality Noted Date [...] age to complete this topic Care Teams Cardiac Monitor Relationship Specialty Start Date End Date Braulio Lopez MD [address] [place] [phone] PCP - General Internal Medicine 03/20/22
--- OUTSIDE RECORDS SUMMARY | 2024-10-13 08:41 | XMS_ITS | Encounter Summary ---
Author Organization [facility] Address [address] [place] [address] Care Team Providers Care Desktop Support Engineer Name Role Phone Braulio Carbajal MD Primary Care Prov ider Reason for Visit * Reason Onset Date Comments Med Refill 02/28/2023 Encounter Details Date Type Department Care Team ([facility] st Contact Info) Description 02/28/2023 Refill [facility] [address] [place] [address] Braulio Carbajal MD [address] [place] [address] Social History Tobacco Use Types Packs/Day Years [...] on filedocumented in this encounter Care Teams Desktop Support Engineer Relationship Specialty Start Date End Date Braulio Carbajal MD [address] [place] [address] PCP - General Internal Medicine 12/14/19 04/28/24 documented as of this encounter
--- OUTSIDE RECORDS SUMMARY | 2024-10-13 08:41 | XMS_ITS | Clinical Summary ---
Author Organization [facility] Address [address] [place] [address] Care Team Providers Care Hand Wrapper Operator Name Role Phone Braulio Lopez Primary Care Provider [phone] Allergies Active Allergy Reactions Criticality Noted Date [...] age to complete this topic Care Teams Hand Wrapper Operator Relationship Specialty Start Date End Date Braulio Lopez PCP - General Internal Medicine 02/01/22
--- OUTSIDE RECORDS SUMMARY | 2024-10-13 08:41 | XMS_ITS | Continuity of Care Document ---
Author Organization [facility] Address [address] [facility] [address] [place] [address] Phone [phone] Social History Type Date Description Comments Sex Unknown Medical Devices Description No Information Available Encounters Description No Information Available Assessments Description No Information Available Plan of Treatment No Information Available Functional Status Description No Information Available Mental Status Description No Information Available Referrals Description No Information Available
--- OUTSIDE RECORDS SUMMARY | 2024-10-13 08:41 | XMS_ITS | Encounter Summary ---
Author Organization [facility] Address [address] [place] [address] [address] [address] Care Team Providers Care Van Helper Name Role Phone Braulio Carbajal MD Primary Care Prov ider Reason for Visit * Reason Comments Med Refill Encounter Details Date Type Department Care Team (Late st Contact Info) Description 10/29/2022 Refill [facility] MEDICINE [address] [place], [place] [phone] Braulio Carbajal MD [address] [place] [address] Social History Tobacco Use Types Packs/Day Years [...] on filedocumented in this encounter Care Teams Van Helper Relationship Specialty Start Date End Date Braulio Carbajal MD [address] [place] [address] PCP - General Internal Medicine 12/14/19 04/28/24 documented as of this encounter
--- OUTSIDE RECORDS SUMMARY | 2024-10-13 08:41 | XMS_ITS | Encounter Summary ---
Author Organization [facility] Address [address] [place] [address] [address] [address] Care Team Providers Care Cement Mason Helper Name Role Phone Braulio Carbajal MD Primary Care Prov ider Reason for Visit * Reason Comments Med Refill Encounter Details Date Type Department Care Team (Late st Contact Info) Description 10/29/2022 Refill [facility] MED[facility] [address] [place], [place] [phone] Braulio Carbajal MD [address] [place] [address] Social History Tobacco Use Types Packs/Day Years [...] on filedocumented in this encounter Care Teams Cement Mason Helper Relationship Specialty Start Date End Date Braulio Carbajal MD [address] [place] [address] PCP - General Internal Medicine 12/14/19 04/28/24 documented as of this encounter
--- OUTSIDE RECORDS SUMMARY | 2024-10-13 08:41 | XMS_ITS | Encounter Summary ---
Author Organization [employer] Address [address] [facility] [address] [place] [address] Care Team Providers Care Unemployment Inspector Name Role Phone Braulio Carbajal MD Primary Care Prov ider Encounter Details Date Type Department Care Team (Late st Contact Info) Description 08/17/2022 Orders Only [facility] [address] [place] [address] Braulio Carbajal MD [address] [place] [address] Type 2 diabetes mellitus without complication, unspecified whether manager intermediate insulin use ([facility]) (Primary Dx) Social History [...] 2 diabetes mellitus without complication, unspecified whether skilled nursing insulin use (CMS/HCC) HEMATOXYLIN AND EOSIN STAIN Routine 01/09/2023 8:38 AM EDT Type 2 diabetes mellitus without complication, unspecified whether manager intermediate insulin use (CMS/HCC) COVID-19 ID NOW (DUPREE) Routine 01/08/2023 2:18 PM EDT Type 2 diabetes mellitus without complication, unspecified whether manager intermediate insulin use (CMS/HCC) TYPE AND SCREEN Routine 01/01/2023 10:22 AM EDT Type 2 diabetes mellitus without complication, unspecified whether manager intermediate insulin use (CMS/HCC) VITAMIN D,25-OH,TOTAL,IA Routine 01/01/2023 10:20 AM EDT Type 2 diabetes mellitus without complication, unspecified whether skilled nursing insulin use (CMS/HCC) TSH W/REFLEX TO FT4 Routine 01/01/2023 1 0:20 AM EDT Type 2 diabetes mellitus without complication, unspecified whether manager intermediate insulin use (CMS/HCC) CBC WITH AUTO DIFFERENTIAL Routine 01/01/2023 10:20 AM EDT Type 2 diabetes mellitus without complication, unspecified whether manager intermediate insulin use (CMS/HCC) ZINC Routine 01/01/2023 10:20 AM EDT Type 2 diabetes mellitus without complication, unspecified whether skilled nursing insulin use (CMS/HCC) VITAMIN A Routine 01/01/2023 10:20 AM EDT Type 2 diabetes mellitus without complication, unspecified whether skilled nursing insulin use (CMS/HCC) APTT Routine 01/01/2023 10:20 AM EDT Type 2 diabetes mellitus without complication, unspecified whether skilled nursing insulin use (CMS/HCC) PROTHROMBIN TIME-INR Routine 01/01/2023 10:20 AM EDT Type 2 diabetes mellitus without complication, unspecified whether skilled nursing insulin use (CMS/HCC) C-REACTIVE PROTEIN Routine 01/01/2023 10 :20 AM EDT Type 2 diabetes mellitus without complication, unspecified whether skilled nursing insulin use (CMS/HCC) VITAMIN B1 Routine 01/01/2023 10:20 AM EDT Type 2 diabetes mellitus without complication, unspecified whether skilled nursing insulin use (CMS/HCC) PTH, INTACT WITHOUT CALCIUM Routine 01/01/2023 10:20 AM EDT Type 2 diabetes mellitus without complication, unspecified whether manager intermediate insulin use (CMS/HCC) HEMOGLOBIN A1C Routine 01/01/2023 10:20 AM EDT Type 2 diabetes mellitus without complication, unspecified whether skilled nursing insulin use (CMS/HCC) FERRITIN Routine 01/01/2023 10:20 AM EDT Type 2 diabetes mellitus without complication, unspecified whether skilled nursing insulin use (CMS/HCC) VITAMIN B12 Routine 01/01/2023 10:20 AM EDT Type 2 diabetes mellitus without complication, unspecified whether skilled nursing insulin use (CMS/HCC) LIPID PANEL, STANDARD Routine 01/01/2023 10:20 AM EDT Type 2 diabetes mellitus without complication, unspecified whether manager intermediate insulin use (CMS/HCC) COMPREHENSIVE METABOLIC PANEL Routine 01/01/2023 10:20 AM EDT Type 2 diabetes mellitus without complication, unspecified whether skilled nursing insulin use (CMS/HCC) GLUCOSE, WHOLE BLOOD Routine 11/13/2022 1:31 PM EDT Type 2 diabetes mellitus without complication, unspecified whether manager intermediate insulin use (CMS/HCC) HEMOGLOBIN A1C Routine 11/13/2022 1:14 PM EDT Type 2 diabetes mellitus without complication, unspecified whether manager intermediate insulin use (CMS/HCC) documented in this encounter Results * CA 19-9 (01/09/2023 10:38 AM EDT) CA 19-9 14 <34 U/mL [facility] Comment:The CA19-9 result ma y be increased on average 14% - 20%,relative to results previously obtained with this methoddue to a recent calibrator adjustment made in Octobery the reagent telephone maintainer. In the low range for thisassay (< [...] or absence of disease.THIS TEST WAS PERFORMED AT:[email or web address] [place] [id number] LONDONO MD 01/09/2023 10:3 8 AM EDT 01/09/2023 10:42 AM EDT [facility] External Provider LAB BLO OD ORDERABLES Final Result [facility] [address] [place] [phone] * Hematoxylin and Eosin Stain (01/09/2023 8:38 AM EDT) 01/09/2023 8:38 AM EDT 01/09/2023 8:53 AM EDT Narrative [facility] - 01/14/2023 1:28 PM EDT ----- ------- Name: Julia López ? Age/Sex: 47/F ? : 1975 Unit#: [id number] ?? Attend Dr: Darci Sanders MD ?Re01/09/23 ?Status: DEP SDC ? Location: HO.SSS ?Disch: ? ----- ------- SPEC : [id number] ? RECD: 01/09/23 ? STATUS: ??SOUT ? REQ NUM: [id number] ? PUSHPA: 01/09/23 ? SUBM DR: Darci [...] ? Age/Sex: 47/F ? : 1975 Unit#: [id number] ?? Attend Dr: Darci Sanders MD ?Re01/09/23 ?Status: DEP SDC ? Location: HO.SSS ?Disch: ? ----- ------- SPEC : [id number] ? RECD: 01/09/23 ? STATUS: ??SOUT ? REQ NUM: [id number] ? PUSHPA: 01/09/23 ? SUBM DR: Darci [...] ?? [address] ?? [place] [address] ?? [phone] ?? Darci Sanders MD ?? [address] [place] [address], [address] ?? [place] [address] ?? [phone] ----- ------- Signed (signature on file) Shaun Lebron MD 01/14/23 1328 ? ----- ------- ? END OF REPORT ? us [facility] External Provider LAB BLO OD ORDERABLES Final Result [facility] [address] [place] [address] [phone] * COVID-19 ID NOW ([employer]oc[employer]) (01/08/2023 2:18 PM EDT) IDNOW SERIAL# [id number] [facility] COVID-19 TEST Negative Negative [facility] COVID-19 NOTE See Note [facility] Comment: Results are for the identification of SARS-CoV2 RNA. TheSARS-CoV2 RNA is generally detectable in respiratory samplesduring the acute phase of infection. Positive results areindicative of the presence of SARS-CoV-2 RNA; clinicalcorrelation with patient history and other diagnosticinformation is necessary to determine patient infectionstatus. Positive results do not rule out bacterial infectionor co- infection with other viruses.Testing facilities within the [facility] and itsterritories are required to report [...] 2:18 PM EDT 01/08/2023 2:32 PM EDT [facility] Exter nal Provider LAB MOLECULAR DIAGNOSTICS ORDERABLES Final Result Performing Organization Address [facility]/ZIP Co de Phone Number [facility] [address] [place] [phone] * Type and screen (01/01/2023 10:22 AM EDT) Blood Type OP [facility] Antibody Screen NEGATIVE [facility] 01/01/2023 10:2 2 AM EDT 01/01/2023 11:04 AM EDT Narrative [facility] - 01/01/2023 11:55 AM EDT Spec expiration changed by JAMESON on 01/01/23Reason: For SURGERYNURSING:Call Blood Bank (ext. [phone]) to band patient on admission.Type and Screen in effect until 2300 on 01/09/23Witnessed by EDELMIRA [facility] External Provider LAB BLO OD BANK TEST ORDERABLES Final Result Performing Organization Address [facility] Co de Phone Number [facility] [address] [place] [phone] * (ABNORMAL) Vitamin A (01/01/2023 10:20 AM EDT) Vitamin A (Retinol) 32(A) 38 - 98 mcg/dL [facility] Comment:Vitamin supplementat ion within 24 hours prior toblood draw may affect the accuracy of the results.This test was developed and its analytical performancecharacteristics have been determined by [employer] [place]. It hasnot been cleared or approved by the U.S. Food and DrugAdministration. This assay has been validated pursuantto the CLIA regulations and is used for clinicalpurposes.THIS TEST WAS PERFORMED AT:[employer] [id number] [place] [address]KDHZPSLNICOLA BARRY MD,PHD 01/01/2023 10:2 0 AM EDT 01/01/2023 10:20 AM EDT [facility] External Provider LAB BLO OD ORDERABLES Final Result Performing Organization Address [facility] Co de Phone Number [facility] [address] [place] [phone] * (ABNORMAL) Vitamin B1 (01/01/2023 10:20 AM EDT) Vitamin B1 <6(A) 8 - 30 nmol/L [facility] Comment:Vitamin supplementat ion within 24 hours prior toblood draw may affect the accuracy of the results.This test was developed and its analytical performancecharacteristics have been determined by [employer] [place], [place]. It hasnot been cleared or approved by the U.S. Food and DrugAdministration. This assay has been validated pursuantto the CLIA regulations and is used for clinicalpurposes.THIS TEST WAS PERFORMED AT:[employer]/[id number] [place] [address]BVFMTFVNICOLA BARRY MD,PHD 01/01/2023 10:2 0 AM EDT 01/01/2023 10:20 AM EDT [facility] External Provider LAB BLO OD ORDERABLES Final Result Performing Organization Address [facility] Co de Phone Number [facility] [address] [place] [phone] * Zinc (01/01/2023 10:20 AM EDT) Zinc 84 60 - 130 mcg/dL [facility] Comment:This test was develo ped and its analytical performancecharacteristics have been determined by [employer] [place], [place]. It hasnot been cleared or approved by the U.S. Food and DrugAdministration. This assay has been validated pursuantto the CLIA regulations and is used for clinicalpurposes.THIS TEST WAS PERFORMED AT:[employer] [place] [address]UEJNUZSNICOLA BARRY MD,PHD 01/01/2023 10:2 0 AM EDT 01/01/2023 10:20 AM EDT [facility] External Provider LAB BLO OD ORDERABLES Final Result Performing Organization Address [facility] Co de Phone Number [facility] [address] [place] [address] [phone] * PTH, Intact Without Calcium (01/01/2023 10:20 AM EDT) PTHI 32 16 - 77 pg/mL [facility] Comment:Interpretive Guide I ntact PTH Calcium -------Normal Parathyroid Normal NormalHypoparathyroidism Low or Low Normal LowHyperparathyroidism Primary Normal or High High Secondary High Normal or Low Tertiary High HighNon-Parathyroid Hypercalcemia Low or Low Normal High Calcium (PTHI) 9.9 8.6 - 10.2 mg/dL [facility] Comment:THIS TEST WAS PERFOR MED AT:[employer] [address] [id number] LONDONO MD 01/01/2023 10:2 0 AM EDT 01/01/2023 10:20 AM EDT [facility] External Provider LAB BLO OD ORDERABLES Final Result Performing Organization Address [facility]/ZIP Co de Phone Number [facility] [address] [place] [phone] * Lipid Panel, Standard (01/01/2023 10:20 AM EDT) Triglycerides 73 mg/dL [facility] Comment:Desirable Triglyceri de: less than 150 mg/dLBorderline High Triglyceride 150-199 mg/dLHigh Triglyceride: 200-499 mg/dLVery High Triglyceride: greater than or equal to 5OO mg/dL Cholesterol 101 mg/dL [facility] Comment:Desirable Cholestero l: less than 200 mg/dLBorderline High Cholesterol: 200-239 mg/dLHigh Cholesterol: greater than 239 mg/dL LDL Cholesterol Calculated 53 mg/dl [facility] Comment:Desirable LDL: less than 100 mg/dLNear Optimal/Above Optimal LDL: 110- 129 mg/dLBorderline High LDL: 130-159 mg/dLHigh LDL: 160-189 mg/dLVery High LDL: greater than or equal to 190 mg/dL HDL Cholesterol 34 mg/dL [facility] Comment:Desirable HDL: great er than 40 mg/dL Note: This HDL assay may give artificially low results in patients with liver disease. 01/01/2023 10:2 0 AM EDT 01/01/2023 10:20 AM EDT [facility] External Provider LAB BLO OD ORDERABLES Final Result Performing Organization Address City/[facility]/ZIP Co de Phone Number [facility] [address] [place] [phone] * (ABNORMAL) C-reactive Protein (01/01/2023 10:20 AM EDT) C Reactive Protein 2.54(H) < or = 0.50 mg/dL [facility] 01/01/2023 10:2 0 AM EDT 01/01/2023 10:20 AM EDT [facility] External Provider LAB BLO OD ORDERABLES Final Result [facility] [address] [place] [phone] * (ABNORMAL) Comprehensive Metabolic Panel (01/01/2023 10:20 AM EDT) Sodium 136 135 - 145 mmol/L [facility] Potassium 4.7 3.3 - 5.1 mmol/L [facility] Chloride 99 96 - 108 mmol/L [facility] Carbon Dioxide 28 22 - 29 mmol/L [facility] Anion Gap 14 12 - 20 [facility] Urea Nitrogen (BUN) 13 9 - 16 mg/dL [facility] Creatinine, Serum 0.80 0.5 - 1.4 mg/dL [facility] Creatinine Clr Calc Pharmacy 134.3 [facility] Comment:Provided height and weight: 175.26 cm,142.882 kg.eGFR (calculated from the MDRD study equation) and eCrCl(calculated from the Cockcroft-Gault equation) are based ondifferent parameters and may not yield comparable results.If eCrCl result is absurd, please check patient'sheight/weight. Estimated Glomerular Filt Rate >60 [facility] Comment:NOTE: For -Am erican individuals, multiply the result by 1.210.Chronic Kidney Disease: Estimated GFR < 60 mL/min/1.04q5Tktxmb Kidney Disease: Estimated GFR < 15 mL/min/1.73m2 Glucose 141(H) 60 - 115 mg/dL [facility] Calcium 10.0 8.4 - 10.2 mg/dL [facility] Bilirubin, Total 0.9 0.0 - 1.0 mg/dL [facility] Aspartate Amino Transferase 18 5 - 31 U/L [facility] Alanine Aminotransferase 14 0 - 31 U/L [facility] Total Protein 7.9 6.5 - 8.0 g/dL [facility] Albumin Level 4.0 3.5 - 5.0 g/dL [facility] Alkaline Phosphatase 85 39 - 117 U/L [facility] 01/01/2023 10:2 0 AM EDT 01/01/2023 10:20 AM EDT [facility] External Provider LAB BLO OD ORDERABLES Final Result Performing Organization Address [facility]/ZIP Co de Phone Number [facility] [address] [place] [phone] * TSH W/Reflex to FT4 (01/01/2023 10:20 AM EDT) TSH reflex Free T4 1.39 0.32 - 4.0 uIU/mL [facility] 01/01/2023 10:2 0 AM EDT 01/01/2023 10:20 AM EDT [facility] External Provider LAB BLO OD ORDERABLES Final Result Performing Organization Address [facility] de Phone Number [facility] [address] [place] [phone] * Vitamin D, 25-Hydroxy, Total, Immunoassay (01/01/2023 10:20 AM EDT) Vitamin D 25-OH Total 23.8 >30 ng/mL [facility] Comment:Health Based Referen ce Values*< 20 ng/mL Nrhxfjlra58-61 ng/mL Insufficient> 30 ng/mL Sufficient*Nay HASTINGS. N [...] 0 AM EDT 01/01/2023 10:20 AM EDT [facility] External Provider LAB BLO OD ORDERABLES Final Result Performing Organization Address [facility] Co de Phone Number [facility] [address] [place] [phone] * Vitamin B12 (01/01/2023 10:20 AM EDT) Vitamin B12 505 200 - 900 pg/mL [facility] Comment:NORMAL 200-900 PG/ML INDETERMINATE 160-199 PG/ML DEFICIENT < 160 PG/ML 01/01/2023 10:2 0 AM EDT 01/01/2023 10:20 AM EDT [facility] External Provider LAB BLO OD ORDERABLES Final Result Performing Organization Address [facility] Co de Phone Number [facility] [address] [place] [phone] * Ferritin (01/01/2023 10:20 AM EDT) Ferritin 192 10 - 250 ng/mL [facility] 01/01/2023 10:2 0 AM EDT 01/01/2023 10:20 AM EDT [facility] External Provider LAB BLO OD ORDERABLES Final Result Performing Organization Address [facility] Co de Phone Number [facility] [address] [place] [phone] * Hemoglobin A1c (01/01/2023 10:20 AM EDT) Hemoglobin A1c 6.8 % [facility] Comment:Hemoglobin A1C Refer ence Range Adults: 4.8 - 6.0 % Non diabetic: < 6.0 % Goal: < 7.0 %Additional Action Suggested: > 8.0 %Note: Hemoglobin A1c results are invalid for patients with abnormal amounts of HbF. Blood transfusions may impact the HbA1c concentration in the patient sample. Estimated Average Glucose 148 mg/dL [facility] Comment:eAG = Estimated ave rage glucose which is %A1C expressed asaverage glucose, using the formula of the E7V-FxumsbyZsbxcql Glucose study (ADAG), Diabetes Care, Vol.31,#8,2007 01/01/2023 10:2 0 AM EDT 01/01/2023 10:20 AM EDT [facility] External Provider LAB BLO OD ORDERABLES Final Result Performing Organization Address [facility] de Phone Number [facility] [address] [place] [phone] * APTT (01/01/2023 10:20 AM EDT) Partial Thromboplastin Time 35.0 26.0 - 36.4 SEC [facility] 01/01/2023 10:2 0 AM EDT 01/01/2023 10:20 AM EDT [facility] External Provider LAB BLO OD ORDERABLES Final Result Performing Organization Address [facility] de Phone Number [facility] [address] [place] [phone] * Prothrombin Time-INR (01/01/2023 10:20 AM EDT) Prothrombin Time 12.9 10.0 - 13.1 SEC [facility] INTERNATIONAL NORM RATIO 1.1 0.9 - 1.1 [facility] Comment:INTERNATIONAL NORMAL IZED RATIO (INR) [...] AM EDT 01/01/2023 10:20 AM EDT us [facility] External Provider LAB BLO OD ORDERABLES Final Result [facility] [address] [place] [phone] * (ABNORMAL) CBC auto differential (01/01/2023 10:20 AM EDT) White Blood Count 11.3(H) 4.8 - 10.8 X10*3/uL [facility] Red Blood Count 5.09 4.20 - 5.50 X10*6/uL [facility] Hemoglobin 13.8 12.0 - 16.0 g/dl [facility] Hematocrit 44.1 37.0 - 47.0 % [facility] Mean Corpuscular Volume 86.6 80.0 - 98.0 fL [facility] Mean Corpuscular Hemoglobin 27.1 27.0 - 33.0 pg [facility] Mean Corpuscular HGB Conc 31.3 31.0 - 35.0 g/dl [facility] Red Cell Distribution Width 14.3 11.0 - 16.0 % [facility] Platelet Count 376 160 - 400 X10*3/uL [facility] Mean Platelet Volume 9.2(L) 9.4 - 12.3 fL [facility] Neutrophils Percent Auto 66.0 45 - 73 % [facility] Imm Gran Pct Auto 0.8(H) 0.0 - 0.4 % [facility] Lymphocytes Percent Auto 25.1 20 - 40 % [facility] Monocytes Percent Auto 5.5 2 - 11 % [facility] Eosinophils Percent Auto 2.0 0 - 4 % [facility] Basophils Percent Auto 0.6 0 - 2 % [facility] NRBC Pct Auto 0.0 0.0 - 0.2 /100WBC [facility] Neutrophils Absolute Auto 7.4 2.0 - 8.3 x10*3/uL [facility] Imm Gran Abs Auto 0.09(H) 0.00 - 0.03 X10*3/uL [facility] Lymphocytes Absolute Auto 2.8 1.2 - 4.9 X10*3/uL [facility] Monocytes Absolute Auto 0.6 0.1 - 1.2 X10*3/uL [facility] Eosinophils Absolute Auto 0.2 0.0 - 0.4 X10*3/uL [facility] Basophils Absolute Auto 0.1 0.0 - 0.2 X10*3/uL [facility] NRBC Abs Auto 0.000 0.0 - 0.012 X10*3/uL [facility] 01/01/2023 10:2 0 AM EDT 01/01/2023 10:20 AM EDT [facility] External Provider LAB BLO OD ORDERABLES Final Result Performing Organization Address [facility]/ZIP Co de Phone Number [facility] [address] [place] [phone] * (ABNORMAL) Glucose, Whole Blood (11/13/2022 1:31 PM EDT) Glucose, Whole Blood 196(H) 60 - 115 mg/dL [facility] Comment:METER #: [id number] 5Testing performed in the Endocrinology Department [address] , [address], [facility]. 11/13/2022 1:31 PM EDT 11/13/2022 1:34 PM EDT [facility] External Provider LAB BLO OD ORDERABLES Final Result Performing Organization Address [facility]/ZIP Co de Phone Number [facility] [address] [place] [phone] * Hemoglobin A1c (11/13/2022 1:14 PM EDT) Hemoglobin A1c 7.4 % [facility] Comment:Hemoglobin A1C Refer ence Range Adults: 4.8 - 6.0 % Non diabetic: < 6.0 % Goal: < 7.0 %Additional Action Suggested: > 8.0 %Note: Hemoglobin A1c results are invalid for patients with abnormal amounts of HbF. Blood transfusions may impact the HbA1c concentration in the patient sample. Estimated Average Glucose 166 mg/dL [facility] Comment:eAG = Estimated ave rage glucose which is %A1C expressed asaverage glucose, using the formula of the Z2T-ThfageuKsjkpds Glucose study (ADAG), Diabetes Care, Vol.31,#8,2007 11/13/2022 1:14 PM EDT 11/13/2022 1:14 PM EDT us [facility] External Provider LAB BLO OD ORDERABLES Final Result [facility] [address] [place] [phone] documented in this encounter Visit Diagnoses Diagnosis Type 2 diabetes mellitus without complication, unspecified whether skilled nursing insulin use ([facility])- Primary documented in this encounter Care Teams Unemployment Inspector Relationship Specialty Start Date End Date Braulio Carbajal MD [address] [place] [phone] PCP - General Internal Medicine 12/14/19 04/28/24 documented as of this encounter
== END 2024-10-13 09:39 | disposition home or self-care (01) ==
LOC: HO.HOP 08:11
PROVIDERS: PCP Internal Medicine; Visit Provider Counselor Mental Health
DX: F90.2 Attention-deficit hyperactivity disorder, combined type (principal); F41.0 Panic disorder [episodic paroxysmal anxiety]; F32.A Depression, unspecified
CPT/HCPCS: 90837

== ENCOUNTER 2024-10-27 08:11 | Outpatient (AMB) | payer OTHER, SELFPAY ==
--- NOTE | 2024-10-27 08:00 | A.OFFWM_ITS ---
Intake Intake Visit Reasons: VIDEO OP Therapy Allergies Penicillins Allergy (Intermediate, Verified 05/26/24 10:01) Shortness of Breath pt states no food allergies Allergy (Unknown, Uncoded 05/26/24 10:01) Unknown [facility] Medical History Type 2 diabetes mellitus with retinopathy Asthma Insomnia Neuropathy Breast calcification, right Adenocarcinoma determined by biopsy of liver Diabetic retinopathy Anxiety and depression GERD (gastroesophageal reflux disease) SOLE on CPAP ADHD Hyperlipidemia HTN (hypertension) with goal to be determined Diabetes mellitus Morbid obesity Surgical History History of cholecystectomy Family History Mother Diabetes Heart problem Father Hypertension Maternal Grandmother Primary cancer of bone marrow Maternal Grandfather Prostate cancer Social History Are you a primary healthcare management consultant to a significant other at home: No Do you presently have visiting nurse or other home services: No Alcohol intake: never Patient Tobacco Use Status: Never used Tobacco Female Reproductive History Menstrual Age of Menarche: 13 Behavioral Health Assessment Weight Management Therapy Therapy Notes Details Subjective: The patient reports feeling somehow defeated after a work meeting yesterday. She mentions feeling overwhelmed by the situation but is working on managing her emotions. Her family is doing well and is handling the stress surrounding her 's immigration process effectively. Objective: The patient presents for a follow-up visit via Telehealth. . Discussed functioning and processed latest events with work-related stress. Used CBT techniques to challenge negative thought patterns related to work stress and feelings of defeat. Identified and replaced unhelpful thoughts with more balanced perspectives. Explored mindfulness techniques to manage emotional reactions and improve present-moment awareness. Also supported with improving personal boundaries and ways to increase engagement in hobbies and pleasant activities as a way to be accountable with personal boundaries. Assessment/Response: * Mental Status: The patient is oriented to time, place, and person, with appropriate mood and affect. She reports mild anxiety related to work stress, but no signs of acute distress. Her cognitive functions appear intact, and her coping strategies are improving. * Risk Reported/Identified: None. Assessment & Plan Assessment & Plan (1) ADHD: Code(s): F90.9 - Attention-deficit hyperactivity disorder, unspecified type Qualifiers: Attention deficit-hyperactivity disorder type: combined inattentive- hyperactive Qualified Code(s): F90.2 - Attention-deficit hyperactivity disorder, combined type (2) Panic disorder: Code(s): F41.0 - Panic disorder [episodic paroxysmal anxiety] (3) Depression, unspecified: Code(s): F32.A - Depression, unspecified Plan Continue bi-weekly sessions, with ongoing focus on utilizing CBT techniques to address negative thought patterns and enhance emotional regulation. Encourage further engagement in pleasant activities and social interactions. Next jase: 11/10/2024 at 8am, Telehealth Telehealth Telehealth Telehealth Platform: [employer] Location of provider rendering services: practice address Location of patient: address on file Patient Identification confirmed using: Name, : Yes Telehealth method: video Patient verbally consented to treatment: Yes Patient verbally consented to billing insurance company: Yes Patient informed of any privacy concerns related to visit: Yes Minutes spent on Phone/Video with Pt.: 65 Coding Level of Care Code Established Pt Tele Psytx >53 mins (99102) Patient Type Established Diagnoses Attention deficit hyperactivity disorder (ADHD), combined type F90.2 Attention deficit-hyperactivity disorder type: combined inattentive- hyperactive Panic disorder F41.0 Depression, unspecified F32.A Time Spent (min) 65
--- OUTSIDE RECORDS SUMMARY | 2024-10-27 08:33 | XMS_ITS | Encounter Summary ---
Author Organization [employer] Address [address] [facility] [address] [place] [address] Care Team Providers Care Gum Dipper Name Role Phone Unavailable Primary Care Provider Unavailabl e Reason for Visit * Reason Comments Med Refill Encounter Details Date Type Department Care Team ([facility] st Contact Info) Description 10/13/2024 Refill [facility] MED & PEDS [address] [place] [address] Braulio Carbajal MD [address] [place] [address] Primary hypertension Social History Tobacco Use Types Packs/Day Years [...] the past 12 months, has t he [employer] gas, oil or water company threatened to shut off services in your [...] as of this encounter Visit Diagnoses Diagnosis Primary hypertension Unspecified essential hypertension documented in this encounter
--- OUTSIDE RECORDS SUMMARY | 2024-10-27 08:33 | XMS_ITS | Clinical Summary ---
Author Organization [address] [facility] Address [address] [place] [address] Phone Care Team Providers Care Graduation Coach Name Role Phone Braulio Carbajal Primary Care [...] 9:30 AM EST Nutrition Bariatric Surgery - [address] [place] [address] Class 3 severe obesity with serious comorbidity and body mass index (BMI) of 50.0 to 59.9 in adult, unspecified obesity type ([facility]) (Primary Dx) from Last 3 Months Immunizations Name Administration Dates Next Due Tdap Tetanus diptheria acell ular pertussis (Boostrix; Adacel) 7yo and older 12/11/2012 Surgical History Surgery Date Site/Laterality Comments CHOLECYSTECTOMY 1999 PROCEDURE: HISTORICAL CHOLECYSTECTOMY Medical History Medical History Date Comments HTN (hypertension) 2011 DX:HTN (hyper tension) DM (diabetes mellitus) (CMS/[facility]) 2006 DX:DM (diabetes mellitus) ([facility]) IBS (irritable bowel syndrome) 1993 D X:IBS [...] [employer] of Health Screening 07/03/2022 COVID-19 Vaccine () 04/05/2024 07/13/2021, 09/22/2020, 09/06/2020, Additional history exists Diabetes: [...] Procedure Name Priority Date/Time Associated Diagnosis Comments COMPREHENSIVE METABOLIC PANEL Routine 07/20/2024 8:33 AM [...] LAB CHEMISTRY METHOD 07/20/2024 11:24 AM EST [facility] Triglycerides 89 0 - 150 mg/dL LAB CHEMISTRY METHOD 07/20/2024 11:24 AM EST [facility] HDL 53 >=40 mg/dL LAB CHEMISTRY METHOD 07/20/2024 11:24 AM EST [facility] LDL Calculated 108(H) 0 - 100 mg/dL LAB CHEMISTRY METHOD 07/20/2024 11:24 AM EST [facility] VLDL Cholesterol Francisco J 17.8 mg/dL LAB CHEMISTRY METHOD 07/20/2024 11:24 AM [facility] Non HDL Chol. (LDL+VLDL) 126 <145 [...] ORDERABLES Fi nal Result Performing Organization Address [facility] Co de Phone Number [facility] [address] [place] [address], [place] [phone] * (ABNORMAL) Hemoglobin A1c (07/20/2024 8:33 AM EST) Hemoglobin A1C 7.9(H) <6.5 % LAB CHEMISTRY METHOD 07/20/2024 2:41 PM EST [facility] Mean Bld Glu Estim. 180 mg/dL LAB CHEMISTRY METHOD 07/20/2024 2:41 PM [facility] Blood Venous blood specimen / Unknown Venipuncture / Unknown 07/20/2024 8:33 AM EST 07/20/2024 8:33 AM EST us Gosia Stoner MD LAB BLOOD ORDERABLES Fi nal Result Performing Organization Address [facility]/ZIP Co de Phone Number [facility] [address] [place] [address], [place] [phone] * (ABNORMAL) Comprehensive metabolic panel (07/20/2024 8:33 [...] LAB CHEMISTRY METHOD 07/20/2024 11:24 AM EST [facility] Total Protein 7.7 6.0 - 8.0 g/dL LAB CHEMISTRY METHOD 07/20/2024 11:24 AM EST [facility] Albumin 3.6 3.2 - 5.0 g/dL LAB CHEMISTRY METHOD 07/20/2024 11:24 AM [facility] Total Bilirubin 0.4 0.0 - 1.4 mg/dL LAB CHEMISTRY METHOD 07/20/2024 11:24 AM EST [facility] Blood Venous blood specimen / Unknown Venipuncture / Unknown 07/20/2024 8:33 AM EST 07/20/2024 8:33 AM EST oGsia Stoner MD LAB BLOOD ORDERABLES Fi nal Result [facility] [address] [place] [address], * Urine Albumin Creatinine Ratio (02/26/2014) Urine Albumin Creatinine Ratio Abstracted Historical Provider HEALTH MAINTENANCE Final Result from Last 3 Months or Most Recently Relevant to Health Maintenance Insurance [employer] Care Teams Graduation Coach Relationship Specialty Start Date End Date Braulio Carbajal [address] [place], [place] PCP - General Internal Medicine 03/20/22
--- OUTSIDE RECORDS SUMMARY | 2024-10-27 08:33 | XMS_ITS | Encounter Summary ---
Author Organization [employer] Address [address] [facility] [address] [place] [address] Care Team Providers Care Vice President Of Customer Service Name Role Phone Unavailable Primary Care Provider Unavailabl e Reason for Visit * Reason Comments Med Refill Encounter Details Date Type Department Care Team ([facility] st Contact Info) Description 10/19/2024 Refill [facility] MED & PEDS [address] [place] [address] Braulio Carbajal MD [address] [place] [address] Social History Tobacco Use Types Packs/Day Years [...] the past 12 months, has t he electric, gas, oil or water company threatened to [...]
--- OUTSIDE RECORDS SUMMARY | 2024-10-27 08:34 | XMS_ITS | Clinical Summary ---
Author Organization [facility] Address [address] [place] [address] Care Team Providers Care Fur Scraper Name Role Phone Braulio Lopez Primary Care Provider [phone] Allergies Active Allergy Reactions Criticality Noted Date [...] age to complete this topic Care Teams Fur Scraper Relationship Specialty Start Date End Date Braulio Lopez PCP - General Internal Medicine 02/01/22
--- OUTSIDE RECORDS SUMMARY | 2024-10-27 08:34 | XMS_ITS | Continuity of Care Document ---
Author Organization [facility] Address [address] [facility] [address] [place] [address] Phone [phone] Social History Type Date Description Comments Sex Unknown Medical Devices Description No Information Available Encounters Description No Information Available Assessments Description No Information Available Plan of Treatment No Information Available Functional Status Description No Information Available Mental Status Description No Information Available Referrals Description No Information Available
--- OUTSIDE RECORDS SUMMARY | 2024-10-27 08:34 | XMS_ITS | Encounter Summary ---
Author Organization [employer] Address [address] [facility] [address] [place] [address] Care Team Providers Care Wire Chief Name Role Phone Braulio Carbajal MD Primary Care Prov ider Reason for Visit * Reason Onset Date Comments Med Refill 02/28/2023 Encounter Details Date Type Department Care Team (Late st Contact Info) Description 02/28/2023 Refill [facility] MEDICINE [address] [place] [address] Braulio Carbajal MD [address] [place] [id number] Mixed hyperlipidemia; Primary hypertension; Type 2 diabetes [...] (CMS/HCC) documented in this encounter Care Teams Wire Chief Relationship Specialty Start Date End Date Braulio Carbajal MD [address] [place] [id number] PCP - General Internal Medicine 12/14/19 04/28/24 documented as of this encounter
--- OUTSIDE RECORDS SUMMARY | 2024-10-27 08:34 | XMS_ITS | Encounter Summary ---
Author Organization [facility] Address [address] [place] [address] [address], [place] [address] Care Team Providers Care Construction Equipment Operator Name Role Phone Braulio Carbajal MD Primary Care Prov ider Reason for Visit * Reason Comments Med Refill Encounter Details Date Type Department Care Team (Late st Contact Info) Description 10/29/2022 Refill [facility] MEDICINE [address] [place], [place] [phone] Braulio Carbajal MD [address] [place] [address] Social History Tobacco Use Types Packs/Day Years [...] on filedocumented in this encounter Care Teams Construction Equipment Operator Relationship Specialty Start Date End Date Braulio Carbajal MD [address] [place] [address] PCP - General Internal Medicine 12/14/19 04/28/24 documented as of this encounter
--- OUTSIDE RECORDS SUMMARY | 2024-10-27 08:34 | XMS_ITS | Data Portability ---
Author Organization [place] - [facility] in [facility],, ADRIANA LARA MD Address [address] [address] Assessment No assessment recorded. Plan of Treatment Reminders Order Date Submit Date Provider Last Modified By Organization Details Last Modified Time Details Appointments None recorded. Lab pap test, thinprep, cervical 2021 022 [email or web address] [facility], Cytopathology Service, [address] [place] [address], [address], 2 07:36:24 fecal occult blood, stool 2021 022 [email or web address] In-Office Order, Internal Use Only DO Not Attach Compendium DO Not Attach Compendium, Do Not Delete/merge, [id number] 2 11:34:07 pap test, thinprep, cervical 2020 021 [email or web address] [facility], Cytopathology Service, [address] [place] [address], [address], 1 07:14:16 fecal occult blood, stool 2020 021 [email or web address] 1 In-Office Order, Internal Use Only DO Not Attach Compendium DO Not Attach Compendium, Do Not Delete/merge, [id number] 1 13:58:54 pap test, thinprep, cervical 2019 020 [email or web address] [facility], Cytopathology Service, [address] [place] [address], [address], 0 08:59:10 fecal occult blood, stool 2019 020 [email or web address] In-Office Order, Internal Use Only DO Not Attach Compendium DO Not Attach Compendium, Do Not Delete/merge, [id number] 0 08:59:10 pap test, thinprep, cervical 2018 019 [facility], Cytopathology Service, [address] [place] [address], [address], 9 04:32:23 fecal occult blood, stool 2018 019 [email or web address] In-Office Order, Internal Use Only DO Not Attach Compendium DO Not Attach Compendium, Do Not Delete/merge, [id number] 9 07:31:20 pap test, thinprep, cervical 2014 015 [facility], Cytopathology Service, [address] [place] [address], [address], 5 12:26:29 chlamydia sp, culture, unspecifi ed specimen 2014 015 [facility], Cytopathology Service, [address] [place] [address], [address], 5 08:24:20 NG DNA, PCR, genital 2014 015 [facility], Cytopathology Service, [address] [place] [address], [address], 5 08:24:20 test, urine 2014 015 [email or web address] 1 In-Office Order, Internal Use Only DO Not Attach Compendium DO Not Attach Compendium, Do Not Delete/merge, [id number] 5 11:43:08 Referral None recorded. Procedures None recorded. Surgeries None recorded. Imaging MAMMO, screening , digital, bilateral 2021 022 [facility] Orders, [address], [address], [place], [address], 4 07:16:34 MAMMO, screening , digital, bilateral 2020 021 [facility] Orders, [address], [address], [place], [address], 2 07:36:18 MAMMO, screening , digital, bilateral 2019 020 [facility] (Mammography), [address], [place], [address], 1 07:41:40 MAMMO, screening , digital, bilateral 2018 019 [facility] Orders, [address], [place], [address], 0 07:25:26 Medication Orders None recorded. Patient TargetsNo targets recorded. Patient Instructions Encounter Date Encounter Id Patient Instructions Last Modified By Organization Details Last Modified Time 12/07/2014 [id number] She is here for annual exam. Her [...] irregular every 4 to 6 weeks, no [id number] no for 6 weeks, check u preg, [...] in detail. Not available 12/07/2014 11:43:09 09/01/2018 [id number] She is here for annual exam. She has not been here since 2014. She was seeing [facility] infertility but they gave up on theat and put in a Mirena 2 years ago. No menses. Her diabetes has been Bad. In 07/2016 she started a process to do bariatric surgery at [facility]. She went through all the counseling ,etc, but things fell through the cracks. She is considering going back again. she had weighted more than 400 pounds last year, she lost some weight this past year with diet and exercise but still weighs 366 pounds today. _ note from 2014: She is here for annual exam. Her latest A1C was 10, in 06/18, the [facility] infertility referred her to endocrinology in 06/18, [...] well. Advised to follow up with her staff forester about her diabetes. She is going back [...] questions answered. Not available 09/01/2018 10:07:54 09/08/2019 [id number] She is here for annual exam, her weight is stable at 367 pounds. Her was in the ICU for 4 weeks due to sepsis, he is better now though. She had a Mirena placed 3 years ago, no menses. note form 2019: She is here for annual exam. She has not been here since 2014. She was seeing [facility] infertility but they gave up on theat and put in a Mirena 2 years ago. No menses. Her diabetes has been Bad. In 07/2016 she started a process to do bariatric surgery at [facility]. She went through all the counseling ,etc, [...] get the date of IUD insertion at [facility] for us so that we know when [...] detail. rebecca Not available 09/08/2019 15:23:23 04/04/2021 [id number] learning about healthy weight rebecca Not available 04/04/2021 13:58:54 She is here for annual exam, weight is 391 pounds, BMI is 58.6. She had a Mirena inserted 08/2016. No menses. Her mother earlier this year due to natural causes, in [place], she is still grieving. She and her are , she wanted to go to couples counseling but he would only go in [place] and they could not find a grindstone [place] speaking counselor. Note from 2019: She is [...] a process to do bariatric surgery at [facility]. She went through all the counseling ,etc, but things fell through the cracks. She is considering going back again. she had weighted more than 400 pounds last year, she lost some weight this past year with diet and exercise but still weighs 366 pounds today. She appears to be doing well. She and I discussed having her go back to [facility] to get back into their weight loss [...] breast. [email or web address] Not available 04/04/2021 14:00:20 04/17/2022 [id number] learning about healthy weight Not available 04/17/2022 [...] this year due to natural causes, in [place], she is still grieving. She and her are , she wanted to go to couples counseling but he would only go in [place] and they could not find a grindstone [place] speaking counselor. She appears to be doing [...] DO Not Attach Compendium, Do Not Delete/merge, [id number] 04/04/2021 13:36:07 02/04/09/08/2019 fecal occul t blood , stool Occult Blood negati ve Not Available In-Office Order Internal Use Only DO Not Attach Compendium DO Not Attach Compendium, Do Not Delete/merge, [id number] 09/08/2019 15:00:26 09/01/19 19 09/01/2018 fecal occul t blood , stool Occult Blood negati ve Not Available In-Office Order Internal Use Only DO Not Attach Compendium DO Not Attach Compendium, Do Not Delete/merge, [id number] 09/01/2018 09:30:38 12/08/19 15 12/07/2014 pregn marshal test, urine HCG negati ve Not Available In-Office Order Internal Use Only DO Not Attach Compendium DO Not Attach Compendium, Do Not Delete/merge, [id number] 12/07/2014 10:52:47 12/08/19 15 12/07/2014 gener al5ca se [email or web address] RESUL TS OF GEN-P ROBE APTIM A COMBO 2 ASSAY Chlam ydia: NEGAT SÁNCHEZ N. gonor rhoea e: NEGAT SÁNCHEZ GENANIRANJAN RIOS M.D., Patho logis t (Case elect martin sy chuy d 12 09 2014) CL[facility] INFOR MATIO N: LPS NEG SOURC E: ThinP rep Pap for CT/GC Gross Descr iptio n: ThinP rep Vial Recei joanne. Physi JAYSON Russ N /#[phone]/2 [phone] Cytop athol ogy servi carlos provi ded by [facility] at the above addre ss. Not Available [facility], Cytopathology Service [address], [place], [address], 12/09/2014 15:06:31 12/08/19 15 12/07/2014 pap, LB [email or web address] ThinP rep Pap, Image d: NEGAT SÁNCHEZ [...] at the above addre ss. Not Available [facility], Cytopathology Service [address] [place] [address], [address], 12/14/2014 12:26:29 09/01/19 19 09/01/2018 pap, LB [email or web address] ThinP rep Pap, Image d: NEGAT SÁNCHEZ [...] . LPS 5 NEG, Z12.4 Not Available [facility], Cytopathology Service [address] [place] [address], [address], 09/02/2018 17:26:28 09/08/19 20 09/08/2019 pap, LB [email or web address] ThinP rep Pap, Image d: NEGAT SÁNCHEZ [...] . LPS NEG [Z12. 4] Not Available [facility], Cytopathology Service [address] [place], [address], 09/10/2019 13:06:44 04/04/20 21 04/04/2021 PAP1C ASE [id number] ThinP rep Pap, Image d: NEGAT SÁNCHEZ [...] LPS 0 NEG [Z12. 4] Not Available [facility], Cytopathology Service [address] [place] [address], [address], 04/12/2021 13:55:52 04/17/2004/17/2022 PAP1C ASE [id number] ThinP rep Pap, Image d: NEGAT SÁNCHEZ [...] IUD, LPS neg. [z01. 419] Not Available [facility], Cytopathology Service [address] [place] [address], [address], 04/23/2022 08:11:00 04/17/2004/17/2022 fecal occul t blood , stool Occult Blood negati ve Not Available In-Office Order Internal Use Only DO Not Attach Compendium DO Not Attach Compendium, Do Not Delete/merge, [id number] 04/17/2022 10:29:09 Result Notes None recorded. Problems Name Problem SNOMED Code Status Onset Date Resolution Date Notes Provider Name and Address Organization Details Recorded Time Candidal vulvovaginiti s 43613209 Active Not Available [facility] 3 03:01:06 Irritable bowel syndrome 03636668 Active Not Available [facility] 3 03:01:06 Obesity 092987171 Active Not Available [facility] 3 03:01:06 Oligoovulator y dysfunctional uterine bleeding 406603135 Active Adriana Lara MD [address], [place], [address] , [place] - [facility], 5 11:43:08 Uncontrolled type 2 diabetes mellitus 668301174 Active Not Available [facility] 3 03:01:06 Primary female infertility 4439627 Active Not Available [facility] 3 03:01:06 Pruritus of vulva 07954126 Active Not Available [facility] 3 03:01:06 Pain in pelvis 90971826 Active Adriana Lara MD [address], [place], [address] , [place] - [facility], 4 15:07:42 Glycosuria 75459434 Active Adriana Lara MD [address], [place], [address] , [place] [facility], 4 15:07:42 Problem Notes None recorded. Procedures Surgical History Date Name Laterality Status Provider Name and Address Organization Details Recorded Time 04/05/20 20 Most Recent Mammogram completed Yashira Alonso [place] - [facility], 04/17/2022 10:36:13 08/05/19 Cholecystectomy completed Taryn Beasley [place] - [facility], 11/10/2012 13:22:27 Imaging Results None recorded. Procedure Notes None recorded. Medical Equipment None Reported. Allergies Allergen ID Allergen Name Allergen Category Reaction Reaction Severity Criticality Documentation Date Start Date Code Code System Note Provider Name and Address Organization Details Recorded Time 25981 [facility] environct nt,medica tion rash Not available Not available 09/08/2019 45974 RxNorm Yashira Celeste [place] [facility] in [facility], 0 14:53:01 7561 Product containin g penicilli n (product) medicatio n rash Not available Not available 11/10/2012 62862 8001 SNOMED Taryn Beasley [place] - [place] in [facility], 3 13:11:08 Medications Name Sig Start Date [...] henidate ER 40 mg capsule,ex tended release iplfflik19 -50 TAKE 1 CAPSULE BY MOUTH EVERY [...] Available Not Available Not Available Afluria Quad 8129-2060 (PF) 60 mcg (15 mcg x 4)/0.5 mL IM syringe active Not Available Not Available N ot Available FreeStyle Laexei 14 Day [place] FOR TESTING GLUCOSE LEVELS active Not Available [...] 9 175.26 cm 95 /min 54.2 kg/m2 072767. 68 g 122 mm[Hg] 65 mm[Hg] Taryn Beasley [place] - [place] in [facility], 9 09:12:36 Date Recorded Body weight Body mass index (BMI) Body height Heart rate Systolic blood pressure Diastolic blood pressure Provider Name and Address Organization Details Last Updated DateTime 0 804642. 12 g 55 kg/m2 173.99 cm 110 /min 132 mm[Hg] 77 mm[Hg] Yashira Orozco in [facility], 0 14:53:44 Date Recorded Body height Body temperature Body mass index (BMI) Body weight Heart rate Systolic blood pressure Diastolic blood pressure Provider Name and Address Organization Details Last Updated DateTime 1 173.99 cm 97.2 [degF] 58.6 kg/m2 479441. 34 g 104 /min 141 mm[Hg] 75 mm[Hg] Yashira Orozco in [facility], 1 13:34:29 Date Recorded Body weight Body mass index (BMI) Body height Body temperature Heart rate Systolic blood pressure Diastolic blood pressure Provider Name and Address Organization Details Last Updated DateTime 2 367800. 19 g 54.3 kg/m2 172.72 cm 98.1 [degF] 93 /min 142 mm[Hg] 79 mm[Hg] Yashira Alonso [place] - [place] in [facility], 2 10:33:37 Date Recorded Body weight Heart rate Body mass index (BMI) Body height Systolic blood pressure Diastolic blood pressure Provider Name and Address Organization Details Last Updated DateTime 5 299627. 1769 g 103 /min 54.6 kg/m2 175.26 cm 119 mm[Hg] 71 mm[Hg] Yashira Alonso [place] - [place] in [facility], 5 10:17:20 Social History Question Answer Notes LastModified by Organizat ion Details LastModified Time Tobacco Smoking Status Never Smoker Not Available [facility] 06/07/2020 03:19:40 What Is Your Level Of Alcohol Consumption? None [id number] Information not available 06/07/2020 What Is Your Level Of Caffeine Consumption? Occasional [id number] Information not available 06/07/2020 In The 14 [...] Type Of Diet Are You Following? REGULAR [id number] Information not available 06/07/2020 Which Illicit Or Recreational Drugs Have You Used? None [id number] Information not available 06/07/2020 Do You Reside In Or Have You Traveled To An Area Where Ebola Virus Transmission Is Active? No [id number] Information not available 06/07/2020 Do You Or Have You Ever Used E-cigarettes Or Vape? Never Used Electronic Cigarettes [id number] Information not available 06/07/2020 Education Post Graduate Information not available 11/10/2012 What Is The Highest Grade Or Level Of School You Have Completed Or The Highest Degree You Have Received? [id number] Information not available 04/04/2021 Who Is Your Employer? [employer] 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 Yes [id number] Information not available 06/07/2020 Do You Or Have You Ever Used Smokeless Tobacco? Never Used Smokeless Tobacco [id number] Information not available 06/07/2020 How Much Tobacco Do You Smoke? No [id number] Information not available 06/07/2020 General Stress Level Medium Information not available 09/08/2019 Do You Feel Stressed (tense, Restless, Nervous, Or Anxious, Or Unable To Sleep At Night)? [id number] Information not available 04/04/2021 Do You Use Any Illicit Or Recreational Drugs? No Information not available 04/04/2021 Have You Recently (within The Last 12 Weeks, Or During A Current ) Traveled To Or Lived In A Zika-affected Area? No [employer] Information not available 09/01/2018 Do You Or Have You Ever Used Any Other Forms Of Tobacco Or Nicotine? No Information not available 04/04/2021 Sex: Female Functional Status Question Answer Note LastModified by Organization D etails LastModified Time What is your exercise level? None [id number] Information not available 06/07/2020 Mental Status None [...] MD [address], [place], [address], [place] Orozco in [facility], 11/10/2012 13:43:51 Tdap 3 completed [place] Sexton in [facility], 12/11/2012 15:22:23 Influenza, split virus, quadrivalent, preservative 9 completed [place] Sexton in [facility], 09/01/2018 09:26:24 COVID-19, mRNA, LNP-S, PF, 100 mcg/0.5mL dose or 50 mcg/0.25mL dose 1 completed [place] Ramos in [facility], 04/04/2021 13:38:30 Influenza, split virus, quadrivalent, preservative 1 completed [place] in [facility], 04/17/2022 10:34:55 Past Encounters Encounter ID Performer Location Encounter Start Date Encounter Closed Date Diagnosis/Indication Diagnosis SNOMED-CT Code Diagnosis ICD10 Code Diagnosis Note [id number] Yashira LARA MD [address] [place] [address] 11/10/2012 12:51:19 11/11/2012 08:37:47 [id number] MD ADRIANA Dickson MD [address] [place] [address] 12/11/2012 15:08:24 12/12/2012 16:10:03 [id number] Taryn LARA MD [address] [place] [address] 08/21/2013 13:33:26 08/21/2013 15:51:36 Pain in pelvis 36498107 Acute lowe r urinary tract infection 269906869 Glycosuria 03955831 [id number] Taryn Beasley ADRIANA LARA MD [address] [place] [address],[place] [address] 11/13/2013 09:28:08 11/13/2013 13:10:39 Specialized medical examination 51431250 [id number] ADRIANA LARA MD [address] [place] [address],[place] [address] 12/07/2014 10:02:59 12/07/2014 13:34:46 Specialized medical examination 25703664 Venereal d isease screening 958136360 Oligoovula tory dysfunctional uterine bleeding 803421104 [id number] MD ADRIANA Dickson MD [address] [place] [address],[place] [address] 09/01/2018 09:04:26 09/01/2018 12:06:59 Specialized medical examination 05620796 Z01.419 Screening for malignant neoplasm of rectum 716586778 Z12.12 Screening mammography 24 798304 Z12.31 [id number] MD ADRIANA Dickson MD [address] [place] [address],[place] [address] 09/08/2019 14:46:50 09/08/2019 15:34:18 Specialized medical examination 03189696 Z01.419 Screening for malignant neoplasm of rectum 427212887 Z12.12 Screening mammography 24 053098 Z12.31 [id number] MD ADRIANA Dickson MD [address] [place] [address],[place] [address] 04/04/2021 13:29:45 04/04/2021 14:48:20 Specialized medical examination 52467469 Z01.419 Screening for malignant neoplasm of rectum 365367668 Z12.12 Screening mammography 24 300284 Z12.31 [id number] MD ADRIANA Dickson MD [address] [place] [address],[place] [address] 04/17/2022 10:28:03 04/17/2022 11:34:15 Specialized medical examination 32407179 Z01.419 Screening for malignant neoplasm of rectum 688575459 Z12.12 Screening mammography 24 273571 Z12.31 Health Concerns Section Related Observation LastModified by Organization Detai ls LastModified Time None Recorded Concern Status LastModified by Organization Details LastModified Time None Recorded Advance Directives Directive None Recorded Payers Encounter Date Sequence Insurance Name Policy Number Policy Fountain Covered Member ID Fountain Member ID Guarantor Name 12/07/2014 1 [facility] [id number] Glorymar López [id number] Glorymar López Colon 09/01/2018 1 [facility] [id number] Glorymar López [id number] Glorymar López Colon 09/08/2019 1 [facility] [id number] Glorymar López [id number] Glorymar López Colon 04/04/2021 1 [facility] [id number] Glorymar López [id number] Glorymar López Colon 04/17/2022 1 [facility] [id number] Glorymar López [id number] Glorymar López Colon Notes Date Note Type Note Provider Name and Address Organization Details Recorded Time 09/01/2018 text/html She is here for annual exam. She has not been here since 2014. She was seeing [facility] infertility but they gave up on theat and put in a Mirena 2 years ago. No menses. Her diabetes has been Bad. In 07/2016 she started a process to do bariatric surgery at [facility]. She went through all the counseling ,etc, but things fell through the cracks. She is considering going back again. she had weighted more than 400 pounds last year, she lost some weight this past year with diet and exercise but still weighs 366 pounds today. _ note from 2014: She is here for annual exam. Her latest A1C was 10, in 06/18, the [facility] infertility referred her to endocrinology in 06/18, she was given instructions for rescue insulin doses when her sugars are high, she is doing that now, she had an A1C drawn on 11/25/14 but has not received the results yet. Adriana Lara MD [address], [place], [address], [place] - [facility], 09/01/2018 10:08:27 09/08/2019 text/html She is here [...] a process to do bariatric surgery at [facility]. She went through all the counseling ,etc, but things fell through the cracks. She is considering going back again. she had weighted more than 400 pounds last year, she lost some weight this past year with diet and exercise but still weighs 366 pounds today. Adriana Lara MD [address], [place], [address], [place] [facility], 09/08/2019 15:23:49 04/04/2021 text/html She is here for annual exam, weight is 391 pounds, BMI is 58.6. She had a Mirena inserted 08/2016. No menses. Her mother earlier this year due to natural causes, in [place], she is still grieving. She and her are , she wanted to go to couples counseling but he would only go in [place] and they could not find a grindstone [place] speaking counselor. Note from 2020: She is [...] a process to do bariatric surgery at [facility]. She went through all the counseling ,etc, but things fell through the cracks. She is considering going back again. she had weighted more than 400 pounds last year, she lost some weight this past year with diet and exercise but still weighs 366 pounds today. Adriana Lara MD [address], [place], [address], [place] [facility], 04/04/2021 14:00:40 04/17/2022 text/html Her weight is [...] this year due to natural causes, in [place], she is still grieving.She and her are , she wanted to go to couples counseling but he would only go in [place] and they could not find a grindstone [place] speaking counselor. Adriana Lara MD [address], [place], [address], [place] [facility], 04/17/2022 11:00:04 OBGyn Episode No OBEpisode recorded.
--- OUTSIDE RECORDS SUMMARY | 2024-10-27 08:34 | XMS_ITS | Encounter Summary ---
Author Organization [facility] Address [address] [place] [address] Care Team Providers Care Loom Changer Name Role Phone Braulio Carbajal MD Primary Care Prov ider Reason for Visit * Reason Onset Date Comments Med Refill 02/28/2023 Encounter Details Date Type Department Care Team ([facility] st Contact Info) Description 02/28/2023 Refill [facility] [address] [place] [address] Braulio Carbajal MD [address] [place] [address] Social History Tobacco Use Types Packs/Day Years [...] on filedocumented in this encounter Care Teams Loom Changer Relationship Specialty Start Date End Date Braulio Carbajal MD [address] [place] [address] PCP - General Internal Medicine 12/14/19 04/28/24 documented as of this encounter
--- OUTSIDE RECORDS SUMMARY | 2024-10-27 08:34 | XMS_ITS | Encounter Summary ---
Author Organization [employer] [facility] Address [address] [place] [address] [address] [address] Care Team Providers Care Clinical Lab Scientist Name Role Phone Braulio Carbajal MD Primary Care Prov ider Reason for Visit * Reason Comments Med Refill Encounter Details Date Type Department Care Team (Late st Contact Info) Description 10/29/2022 Refill [facility] [address] [place], [place] [id number] Braulio Carbajal MD [address] [place] [address] Social History Tobacco Use Types Packs/Day Years [...] on filedocumented in this encounter Care Teams Clinical Lab Scientist Relationship Specialty Start Date End Date Braulio Carbajal MD [address] [place] [address] PCP - General Internal Medicine 12/14/19 04/28/24 documented as of this encounter
--- OUTSIDE RECORDS SUMMARY | 2024-10-27 08:34 | XMS_ITS | Data Portability ---
Author Organization [place] [facility] Address [address] [place] [id number] Care Team Providers Care Store Clerk Cashier Name Role Phone JAVIER LANGLEY Referring Provider [phone] Assessment Encounter Date Assessment Date Assessment LastModified by Organization Details LastModified Time 06/18/2024 06/18/2024 IMPRESSION: 49-year-old hnrwb-[id number] t woman with RIGHT lateral epicondylitis. PLAN: [...] Gonzalez MS, PA-C in indirect conjunction with [facility] provider Clark Andino MD. He agrees with history, physical examination, tests/diagnostic imaging, and treatment plan. This document was generated using voice recognition software. As a result, there may be unintended spelling, grammatical and/or textual errors. Not available 07/07/2024 11:07:22 Plan of Treatment Reminders Order Date Submit Date Provider Last Modified By Organization Details Last Modified Time Details Appointments FOLLOW UP 2024 11:15A M RADHA GONZALEZ [...] scale). 2023 024 [email or web address] [facility], [address], [address], [place], [address], 08/13/2024 15:48:51 Surgeries None recorded. Imaging XR, hip, unilatera l, 2 or 3 view 2023 024 [email or web address] [facility], [address], [address], [place], [address], 07/07/2024 11:51:40 XR, elbow, 3 or more view 2023 024 [facility], [address], [address], [place], [address], 06/19/2024 16:54:16 Medication Orders meloxicam 15 mg tablet [address] [facility], [address], [place], [address], 06/18/2024 14:11:51 Patient TargetsNo targets recorded. Patient Instructions Encounter Date Encounter Id Patient Instructions Last Modified By Organization Details Last Modified Time 06/18/2024 [id number] tennis elbow: exercises Not available 06/18/2024 14:11:37 [...] LEFT}} elbow. Not available 06/18/2024 13:55:08 07/07/2024 [id number] {{2 3 4* 5 6 7 8 [...] and deep friction massage. Referring Physician: Oscar vAina, Orthopedic Surgery, Encounter Date: 06/18/2024 Problems Name Problem SNOMED Code Status Onset Date Resolution Date Notes Provider Name and Address Organization Details Recorded Time Lateral epicondyli tis 824598597 Active [address], [place], [address] , [place] [facility], [facility] 4 14:10:53 Lateral epicondyli tis 057705199 Active [address], [place], [address] , [place] [facility], [facility] 4 14:11:09 Osteoarthr itis of left hip joint 3390275514617 08 Active 12/03/ 2024 RADHA GONZALEZ PA-C [address], [place], [address] , [place] [facility] 4 11:06:02 Problem Notes None recorded. [...] active Not Available Not Available Not Available doxycycline hyclate 100 mg capsule TAKE 1 CAPSULE BY MOUTH TWICE A DAY FOR 10 DAYS active Not Available Not Available No t Available ipratropium 0.5 mg-albuterol 3 mg (2.5 mg base)/3 mL nebulization soln TAKE 3 ML (INHALATI ON) EVERY 4 HOURS ( NEEDED FOR WHEEZING) FOR 15 DAYS active Not Available Not Available No t Available clindamycin HCl 300 mg capsule TAKE 1 CAPSULE BY MOUTH EVERY 6 HOURS UNTIL GONE active Not Available Not Available No t Available albuterol sulfate 2.5 mg/3 mL (0.083 %) solution for nebulization TAKE 3 ML (INHALATI ON) EVERY 4 HOURS (SHORTNES S OF BREATH OR WHEEZING) FOR 7 DAYS active Not Available Not Available No t Available azithromycin 250 mg tablet TAKE 2 TABLETS BY MOUTH TODAY, THEN TAKE 1 TABLET DAILY FOR 4 DAYS DIRECTED active Not Available Not Available No t Available ibuprofen 800 mg tablet TAKE 1 TABLET BY MOUTH EVERY 6 HOURS FOR PAIN active Not Available Not Available No t Available meloxicam 15 mg tablet Take 1 tablet every day by oral route. 2023 active Not Available Not Available Not Avai lable prednisone 20 mg tablet TAKE 2 TABLETS BY MOUTH DAILY FOR 5 DAYS active Not Available Not Available No t Available minoxidil 2.5 mg tablet active Not Available Not Available No t Available vitamin A 3,000 mcg (10,000 unit) capsule active Not Available Not Available Not Available benzonatate 100 mg capsule TAKE 1 CAPSULE BY MOUTH THREE TIMES A DAY NEEDED FOR COUGH FOR 7 DAYS active Not Available Not Available No t Available lisinopril 10 mg tablet active Not Available Not Available No t Available gabapentin 300 mg capsule active Not Available Not Available N ot Available ergocalciferol (vitamin D2) 1,250 mcg (50,000 unit) capsule active Not Available Not Available Not Available albuterol sulfate HFA 90 mcg/actuation aerosol inhaler TAKE 2 PUFF (INHALATI ON) EVERY 4 TO 6 HOURS (SHORTNES S OF BREATH OR WHEEZING) FOR 14 DAYS active Not Available Not Available No t Available fluoxetine 20 mg capsule active Not [...] SNOMED-CT Code Diagnosis ICD10 Code Diagnosis Note [id number] Oscar Avina MD [facility] [address] [place] [address] 06/18/2024 13:20:00 06/18/2024 14:16:30 Pain in elbow 04282473 M25.521 Lateral epicondylitis 20 6804054 M77.10 [id number] Clark Andino MD [facility] [address] [place] [address] 07/07/2024 10:17:23 07/07/2024 11:04:15 Hip pain 93921536 M25.552 Osteoarthr itis of left hip joint 1489222250 86906 M16.12 Health Concerns Section Related Observation LastModified by Organization Detai ls LastModified Time None Recorded Concern Status LastModified by Organization Details LastModified Time None Recorded Advance Directives Directive None Recorded Payers Encounter Date Sequence Insurance Name Policy Number Policy Fountain Covered Member ID Fountain Member ID Guarantor Name 06/18/2024 1 [employer] [id number] Glorymar López Colon [id number] Glorymar López-Col on 07/07/2024 1 [employer] [id number] Glorymar López Colon [id number] Glorymar López-Col on Notes Date Note Type [...] 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 She is [id number]-[id number] . Oscar Avina MD [address], [place], [address], [place] [facility] 06/18/2024 14:13:14 07/07/2024 text/html 49-year-old fema [...] RADHA GONZALEZ PA-C [address], [place], [address], [place] [facility], [facility] 07/07/2024 11:07:40 OBGyn Episode No OBEpisode recorded.
--- OUTSIDE RECORDS SUMMARY | 2024-10-27 08:35 | XMS_ITS | Clinical Summary ---
Author Organization [facility] Address [address] [place] [address] [address] [place] [address] Care Team Providers Care Heel Seat Sander Name Role Phone Unavailable Primary Care Provider [...] 2 diabetes mellitus without complication, unspecified whether buttermaker insulin use ([facility]) Inject 1.5 mg under the skin 1 [...] Active Active Problems No known active problems Encounters Date Type Department Care Team Description 10/19/2024 Refill [facility] [address] [place] [address] Braulio Carbajal MD 10/13/2024 Refill [facility] [address] [place] [address] Braulio Carbajal MD Primary hypertension from Last 3 Months Social History Tobacco Use Types Packs/Day Years Used Date Smoking Tobacco: Never Passive Smoke Exposure: Never Smokeless Tobacco: Never Tobacco Cessation:Counseling Given: Not Answered Alcohol Use Standard Drinks/Week Comments Never 0 (1 standard drink = 0.6 oz pur e alcohol) Housing Stability Answer Date Recorded What is your housing situation today? I have larakianna pederson 05/22/[address] you [...] SDOH Screening 05/02/2024 05/02/2023 Mammogram 05/25/2026 05/25/2024, /01/2023, 04/09/2023 Zoster Vaccines (1 of 2) 2026 [...] 2 diabetes mellitus without complication, unspecified whether mcfp insulin use (CMS/HCC) ZZZ HISTORICAL HEPATITIS C [...] EDT Narrative 05/25/2024 4:12 PM EDT ? [facility] ? [address] ?[place] [address] ? Mammography Report ? Signed ? Patient: López,Glorymar ?MR#: [id number] ?? [id number] ? : 1975 ?Acct:[id number] ? Age/Sex: 48 / F ?ADM Date: 05/25/24 ? Loc: HO.MAMMO ? Attending Dr: Ryan Prescott MD ? Ordering Physician: Ryan Prescott MD ?Results: 2Ben ?? ign Findings ? Date of Service: 05/25/24 ?Follow Up: 1 Year From Orig ?? inal Mammogram ? Procedure(s): MM tomosynthesis diagnostic BI ?? Accession Number(s): [id number] ? cc: Braulio Carbajal MD; Ryan Prescott [...] DD/ 1300 ? TD/TT: 05/25/24 1350 ? Journey Lineman: ? Procedure Note Donotuseinterpreter, Image - 05/25/2024 [facility] [address] [place] [address] Mammography Report Signed Patient: Julia LópezMR#: [id number] : 1975Acct:[id number] Age/Sex: 48 / FADM Date: 05/25/24 Loc: HO.MAMMO Attending Dr: Ryan Prescott MD Ordering Physician: Ryan Prescott MDResults: 2Ben ign Findings Date of Service: 05/25/24Follow Up: 1 Year From Orig inal Mammogram Procedure(s): MM tomosynthesis diagnostic BI Accession Number(s): [id number] cc: Braulio Carbajal MD; Ryan Prescott MD [...] 05/25/24 1609 DD/ 1300 TD/TT: 05/25/24 1350 Journey Lineman: [facility] External Provider IMG BI PROCEDURES Edited Result - Final * Lipid Panel, Standard (01/01/2023 10:20 AM EDT) Triglycerides 73 mg/dL [facility] Comment:Desirable Triglyceri de: less than 150 mg/dLBorderline High Triglyceride 150-199 mg/dLHigh Triglyceride: 200-499 mg/dLVery High Triglyceride: greater than or equal to 5OO mg/dL Cholesterol 101 mg/dL [facility] Comment:Desirable Cholestero l: less than 200 mg/dLBorderline High Cholesterol: 200-239 mg/dLHigh Cholesterol: greater than 239 mg/dL LDL Cholesterol Calculated 53 mg/dl [facility] Comment:Desirable LDL: less than 100 mg/dLNear Optimal/Above Optimal LDL: 110- 129 mg/dLBorderline High LDL: 130-159 mg/dLHigh LDL: 160-189 mg/dLVery High LDL: greater than or equal to 190 mg/dL HDL Cholesterol 34 mg/dL [facility] Comment:Desirable HDL: great er than 40 mg/dL Note: This HDL assay may give artificially low results in patients with liver disease. 01/01/2023 10:2 0 AM EDT 01/01/2023 10:20 AM EDT [facility] External Provider LAB BLO OD ORDERABLES Final Result Performing Organization Address City/[facility]/ZIP Co de Phone Number [facility] [address] [place] [address] [phone] * HEPATITIS C AB W/REFL TO HCV RNA, QN, PCR (01/24/2022 8:19 AM EDT) HEPATITIS C ANTIBODY NON-REACT S[place]NCHEZ NON-REACT SÁNCHEZ [facility] INDEX 0.02 <1.00 [facility] Comment: ?? HCV antibody was non-reactive. There is no laboratory ?? evidence of HCV infection. ?? In most cases, no further action is required. However, if recent HCV exposure is suspected, a test for HCV RNA (test code 76167) is suggested. ?? For additional information please refer to http://education.swabr/faq/FML24c8 (This link is being provided for informational/ educational purposes only.) ?? 01/24/2022 8:19 AM EDT Braulio Campbell MD HISTORICAL/NON ORD ERABLE LABS Final Result Performing Organization Address City/[facility]/ZIP Co de Phone Number [facility] [address] * HIV 1/2 ANTIGEN/ANTIBODY,FOURTH GENERATION W/RFL (01/24/2022 8:19 AM EDT) HIV-1/2 ANTIGEN AND ANTIBODIES, 4TH GENERATION W/ REFLEX NON-REACT SÁNCHEZ NON-REACT SÁNCHEZ [facility] Comment: HIV-1 antigen and HIV-1/HIV-2 [...] ? For additional information please refer to http://education.swabr/faq/VRR634 (This link is being provided for informational/ educational purposes only.) ? The performance of this assay has not been clinically validated in patients less than 2 years old. ?? 01/24/2022 8:19 AM EDT Braulio Campbell MD LAB BLOOD ORDERABL ES Final Result Performing Organization Address City/State/[facility] Co va Phone [facility] [address] from Last 3 Months or Most Recently Relevant to Health Maintenance Insurance GENERIC COMMERCIAL
--- OUTSIDE RECORDS SUMMARY | 2024-10-27 08:35 | XMS_ITS | Encounter Summary ---
Author Organization [employer] Address [address] [facility] 7t [place] [address] Care Team Providers Care Associate Publisher Name Role Phone Braulio Carbajal MD Primary Care Prov ider Encounter Details Date Type Department Care Team (Late st Contact Info) Description 08/17/2022 Orders Only [facility] [address] [place] [address] Braulio Carbajal MD [address] [place] [address] Type 2 diabetes mellitus without complication, unspecified whether predatory animal exterminator insulin use ([facility]) (Primary Dx) Social History [...] 2 diabetes mellitus without complication, unspecified whether predatory animal exterminator insulin use (CMS/HCC) COVID-19 ID NOW (DUPREE) Routine 01/08/2023 2:18 PM EDT Type 2 diabetes mellitus without complication, unspecified whether predatory animal exterminator insulin use (CMS/HCC) TYPE AND SCREEN Routine 01/01/2023 10:22 AM EDT Type 2 diabetes mellitus without complication, unspecified whether predatory animal exterminator insulin use (CMS/HCC) VITAMIN D,25-OH,TOTAL,IA Routine 01/01/2023 10:20 AM EDT Type 2 diabetes mellitus without complication, unspecified whether skilled nursing insulin use (CMS/HCC) TSH W/REFLEX TO FT4 Routine 01/01/2023 1 0:20 AM EDT Type 2 diabetes mellitus without complication, unspecified whether predatory animal exterminator insulin use (CMS/HCC) CBC WITH AUTO DIFFERENTIAL Routine 01/01/2023 10:20 AM EDT Type 2 diabetes mellitus without complication, unspecified whether predatory animal exterminator insulin use (CMS/HCC) ZINC Routine 01/01/2023 10:20 [...] 2 diabetes mellitus without complication, unspecified whether predatory animal exterminator insulin use (CMS/HCC) HEMOGLOBIN A1C Routine 01/01/2023 [...] 2 diabetes mellitus without complication, unspecified whether predatory animal exterminator insulin use (CMS/HCC) COMPREHENSIVE METABOLIC PANEL Routine 01/01/2023 10:20 AM EDT Type 2 diabetes mellitus without complication, unspecified whether skilled nursing insulin use (CMS/HCC) GLUCOSE, WHOLE BLOOD Routine 11/13/2022 1:31 PM EDT Type 2 diabetes mellitus without complication, unspecified whether predatory animal exterminator insulin use (CMS/HCC) HEMOGLOBIN A1C Routine 11/13/2022 1:14 PM EDT Type 2 diabetes mellitus without complication, unspecified whether predatory animal exterminator insulin use (CMS/HCC) documented in this encounter Results * CA 19-9 (01/09/2023 10:38 AM EDT) CA 19-9 14 <34 U/mL [facility] Comment:The CA19-9 result ma y be increased on average 14% - 20%,relative to results previously obtained with this methoddue to a recent calibrator adjustment made in Octobery the reagent senior principal software engineer. In the low range for thisassay (< [...] or absence of disease.THIS TEST WAS PERFORMED AT:[employer] [place] [id number] LONDONO MD 01/09/2023 10:3 8 AM EDT 01/09/2023 10:42 AM EDT [facility] External Provider LAB BLO OD ORDERABLES Final Result [facility] [address] [place] [phone] * Hematoxylin and Eosin Stain (01/09/2023 8:38 AM EDT) 01/09/2023 8:38 AM EDT 01/09/2023 8:53 AM EDT Narrative [facility] - 01/14/2023 1:28 PM EDT ----- ------- Name: Julia López ? Age/Sex: 47/F ? : 1975 Unit#: [id number] ?? Attend Dr: Darci Sanders MD ?Re01/09/23 ?Status: DEP SDC ? Location: HO.SSS ?Disch: ? ----- ------- SPEC : [id number] ? RECD: 01/09/23 ? STATUS: ??SOUT ? REQ NUM: [id number] ? PUSHPA: 01/09/23 ? SUBM DR: Darci [...] ? Age/Sex: 47/F ? : 1975 Unit#: [id number] ?? Attend Dr: Darci Sanders MD ?Re01/09/23 ?Status: DEP SDC ? Location: HO.SSS ?Disch: ? ----- ------- SPEC : [id number] ? RECD: 01/09/23 ? STATUS: ??SOUT ? REQ NUM: [id number] ? PUSHPA: 01/09/23 ? SUBM DR: Darci [...] ?? [address] ?? [place] [address] ?? [phone] ?? Darci Sanders MD ?? [address] [place] [address], 3[address] Floor ?? [place] [address] ?? [phone] ----- ------- Signed (signature on file) Shaun Lebron MD 01/14/23 1328 ? ----- ------- ? END OF REPORT ? us [facility] External Provider LAB BLO OD ORDERABLES Final Result [facility] [address] [place] [phone] * COVID-19 ID NOW (Your Survival) (01/08/2023 2:18 PM EDT) IDNOW SERIAL# [id number] [facility] COVID-19 TEST Negative Negative [facility] COVID-19 NOTE See Note [facility] Comment: Results are for the identification of SARS-CoV2 RNA. TheSARS-CoV2 RNA is generally detectable in respiratory samplesduring the acute phase of infection. Positive results areindicative of the presence of SARS-CoV-2 RNA; clinicalcorrelation with patient history and other diagnosticinformation is necessary to determine patient infectionstatus. Positive results do not rule out bacterial infectionor co- infection with other viruses.Testing facilities within the [facility] and itsterritories are required to report all [...] 2:18 PM EDT 01/08/2023 2:32 PM EDT [facility] Exter nal Provider LAB MOLECULAR DIAGNOSTICS ORDERABLES Final Result Performing Organization Address [facility]/ZIP Co de Phone Number [facility] [address] [place] [phone] * Type and screen (01/01/2023 10:22 AM EDT) Blood Type OP [facility] Antibody Screen NEGATIVE [facility] 01/01/2023 10:2 2 AM EDT 01/01/2023 11:04 AM EDT Narrative [facility] - 01/01/2023 11:55 AM EDT Spec expiration changed by JAMESON on 01/01/23Reason: For SURGERYNURSING:Call Blood Bank (ext. [phone]) to band patient on admission.Type and Screen in effect until 2300 on 01/09/23Witnessed by EDELMIRA [facility] External Provider LAB BLO OD BANK TEST ORDERABLES Final Result Performing Organization Address [facility] Co de Phone Number [facility] [address] [place] [phone] * (ABNORMAL) Vitamin A (01/01/2023 10:20 AM EDT) Vitamin A (Retinol) 32(A) 38 - 98 mcg/dL [facility] Comment:Vitamin supplementat ion within 24 hours prior toblood draw may affect the accuracy of the results.This test was developed and its analytical performancecharacteristics have been determined by [employer] [place]. It hasnot been cleared or approved by the U.S. Food and DrugAdministration. This assay has been validated pursuantto the CLIA regulations and is used for clinicalpurposes.THIS TEST WAS PERFORMED AT:[employer] [id number] [place] [phone] BARRY MD,PHD 01/01/2023 10:2 0 AM EDT 01/01/2023 10:20 AM EDT [facility] External Provider LAB BLO OD ORDERABLES Final Result Performing Organization Address [facility] Co de Phone Number [facility] [address] [place] [phone] * (ABNORMAL) Vitamin B1 (01/01/2023 10:20 AM EDT) Vitamin B1 <6(A) 8 - 30 nmol/L [facility] Comment:Vitamin supplementat ion within 24 hours prior toblood draw may affect the accuracy of the results.This test was developed and its analytical performancecharacteristics have been determined by [employer] [place], [place]. It hasnot been cleared or approved by the U.S. Food and DrugAdministration. This assay has been validated pursuantto the CLIA regulations and is used for clinicalpurposes.THIS TEST WAS PERFORMED AT:[id number] [place] [address]RGFKUBPNICOLA BARRY MD,PHD 01/01/2023 10:2 0 AM EDT 01/01/2023 10:20 AM EDT [facility] External Provider LAB BLO OD ORDERABLES Final Result Performing Organization Address [facility] Co de Phone Number [facility] [address] [place] [phone] * Zinc (01/01/2023 10:20 AM EDT) Zinc 84 60 - 130 mcg/dL [facility] Comment:This test was develo ped and its analytical performancecharacteristics have been determined by [employer] [place]. It hasnot been cleared or approved by the U.S. Food and DrugAdministration. This assay has been validated pursuantto the CLIA regulations and is used for clinicalpurposes.THIS TEST WAS PERFORMED AT:[employer]/[facility] [place] [address]JMWCWLNNICLOA BARRY MD,PHD 01/01/2023 10:2 0 AM EDT 01/01/2023 10:20 AM EDT [facility] External Provider LAB BLO OD ORDERABLES Final Result Performing Organization Address [facility] Co de Phone Number [facility] [address] [place] [phone] [phone] * PTH, Intact Without Calcium (01/01/2023 [...] CENTER LABS Comment:THIS TEST WAS PERFOR MED AT:[employer] [address] [id number] LONDONO MD 01/01/2023 10:2 0 AM EDT 01/01/2023 10:20 AM EDT [facility] External Provider LAB BLO OD ORDERABLES Final Result Performing Organization Address [facility]/ZIP Co de Phone Number [facility] [address] [place] [phone] * Lipid Panel, Standard (01/01/2023 10:20 AM EDT) Triglycerides 73 mg/dL [facility] Comment:Desirable Triglyceri de: less than [...] to 190 mg/dL HDL Cholesterol 34 mg/dL [facility] Comment:Desirable HDL: great er than 40 mg/dL Note: This HDL assay may give artificially low results in patients with liver disease. 01/01/2023 10:2 0 AM EDT 01/01/2023 10:20 AM EDT [facility] External Provider LAB BLO OD ORDERABLES Final Result Performing Organization Address City/[facility]/ZIP Co de Phone Number [facility] [address] [place] [phone] * (ABNORMAL) C-reactive Protein (01/01/2023 10:20 AM EDT) C Reactive Protein 2.54(H) < or = 0.50 mg/dL [facility] 01/01/2023 10:2 0 AM EDT 01/01/2023 10:20 AM EDT [facility] External Provider LAB BLO OD ORDERABLES Final Result [facility] [address] [place] [phone] * (ABNORMAL) Comprehensive Metabolic Panel (01/01/2023 [...] 1.210.Chronic Kidney Disease: Estimated GFR < 60 mL/min/1.21h7Iudvnz Kidney Disease: Estimated GFR < 15 mL/min/1.73m2 [...] 0 AM EDT 01/01/2023 10:20 AM EDT [facility] External Provider LAB BLO OD ORDERABLES Final Result Performing Organization Address [facility]/ZIP Co de Phone Number [facility] [address] [place] [phone] * TSH W/Reflex to FT4 (01/01/2023 10:20 AM EDT) TSH reflex Free T4 1.39 0.32 - 4.0 uIU/mL [facility] 01/01/2023 10:2 0 AM EDT 01/01/2023 10:20 AM EDT [facility] External Provider LAB BLO OD ORDERABLES Final Result Performing Organization Address [facility] de Phone Number [facility] [address] [place] [phone] * Vitamin D, 25-Hydroxy, Total, Immunoassay (01/01/2023 10:20 AM EDT) Vitamin D 25-OH Total 23.8 >30 ng/mL [facility] Comment:Health Based Referen ce Values*< 20 ng/mL Rdooaucoa98-29 ng/mL Insufficient> 30 ng/mL Sufficient*Nay HASTINGS. N [...] 0 AM EDT 01/01/2023 10:20 AM EDT [facility] External Provider LAB BLO OD ORDERABLES Final Result Performing Organization Address [facility] Co de Phone Number [facility] [address] [place] [phone] * Vitamin B12 (01/01/2023 10:20 AM EDT) Vitamin B12 505 200 - 900 pg/mL [facility] Comment:NORMAL 200-900 PG/ML INDETERMINATE 160-199 PG/ML DEFICIENT < 160 PG/ML 01/01/2023 10:2 0 AM EDT 01/01/2023 10:20 AM EDT [facility] External Provider LAB BLO OD ORDERABLES Final Result Performing Organization Address [facility] Co de Phone Number [facility] [address] [place] [phone] * Ferritin (01/01/2023 10:20 AM EDT) Ferritin 192 10 - 250 ng/mL [facility] 01/01/2023 10:2 0 AM EDT 01/01/2023 10:20 AM EDT [facility] External Provider LAB BLO OD ORDERABLES Final Result Performing Organization Address [facility] Co de Phone Number [facility] [address] [place] [phone] * Hemoglobin A1c (01/01/2023 10:20 AM EDT) Hemoglobin A1c 6.8 % [facility] Comment:Hemoglobin A1C Refer ence Range [...] asaverage glucose, using the formula of the R4O-OpdezgxMcqxczz Glucose study (ADAG), Diabetes Care, Vol.31,#8,2007 01/01/2023 10:2 0 AM EDT 01/01/2023 10:20 AM EDT [facility] External Provider LAB BLO OD ORDERABLES Final Result Performing Organization Address [facility] de Phone Number [facility] [address] [place] [phone] * APTT (01/01/2023 10:20 AM EDT) Partial Thromboplastin Time 35.0 26.0 - 36.4 SEC [facility] 01/01/2023 10:2 0 AM EDT 01/01/2023 10:20 AM EDT [facility] External Provider LAB BLO OD ORDERABLES Final Result Performing Organization Address [facility] de Phone Number [facility] [address] [place] [phone] * Prothrombin Time-INR (01/01/2023 10:20 AM [...] AM EDT 01/01/2023 10:20 AM EDT us [facility] External Provider LAB BLO OD ORDERABLES Final Result [facility] [address] [place] [phone] * (ABNORMAL) CBC auto [...] 0 AM EDT 01/01/2023 10:20 AM EDT [facility] External Provider LAB BLO OD ORDERABLES Final Result Performing Organization Address [facility]/ZIP Co de Phone Number [facility] [address] [place] [phone] * (ABNORMAL) Glucose, Whole Blood (11/13/2022 1:31 PM EDT) Glucose, Whole Blood 196(H) 60 - 115 mg/dL [facility] Comment:METER #: [id number] 5Testing performed in the Endocrinology Department [address] , [address], [facility]. 11/13/2022 1:31 PM EDT 11/13/2022 1:34 PM EDT [facility] External Provider LAB BLO OD ORDERABLES Final Result Performing Organization Address [facility]/ZIP Co de Phone Number [facility] [address] [place] [phone] * Hemoglobin A1c (11/13/2022 1:14 PM EDT) Hemoglobin A1c 7.4 % [facility] Comment:Hemoglobin A1C Refer ence Range [...] asaverage glucose, using the formula of the E9E-JedboqsKxlilkz Glucose study (ADAG), Diabetes Care, Vol.31,#8,2007 11/13/2022 1:14 PM EDT 11/13/2022 1:14 PM EDT us [facility] External Provider LAB BLO OD ORDERABLES Final Result [facility] [address] [place] [phone] documented in this encounter Visit Diagnoses Diagnosis Type 2 diabetes mellitus without complication, unspecified whether skilled nursing insulin use ([facility])- Primary documented in this encounter Care Teams Associate Publisher Relationship Specialty Start Date End Date Braulio Carbajal MD [address] [place] [phone] PCP - General Internal Medicine 12/14/19 04/28/24 documented as of this encounter
== END 2024-10-27 09:39 | disposition home or self-care (01) ==
LOC: HO.HOP 08:11
PROVIDERS: PCP Internal Medicine; Visit Provider Counselor Mental Health
DX: F90.2 Attention-deficit hyperactivity disorder, combined type (principal); F41.0 Panic disorder [episodic paroxysmal anxiety]; F32.A Depression, unspecified
CPT/HCPCS: 90837

== ENCOUNTER → 2024-10-27 08:11 | Outpatient (BNVA) | payer OTHER, SELFPAY | PROVIDERS: PCP Internal Medicine; Visit Provider Counselor Mental Health ==

== ENCOUNTER 2024-11-03 07:41 | Outpatient (REF) | payer OTHER, SELFPAY ==
--- OUTSIDE RECORDS SUMMARY | 2024-11-03 07:46 | XMS_ITS | Encounter Summary ---
Author Organization [employer] Address [address] [facility] 7t [place] [address] Care Team Providers Care Panel Raiser Operator Name Role Phone Unavailable Primary Care Provider Unavailabl e Reason for Visit * Reason Comments Med Refill Encounter Details Date Type Department Care Team ([facility] st Contact Info) Description 11/02/2024 Refill [facility] MED [facility] PEDS [address] [place] [address] Braulio Carbajal MD [address] [place] [address] Social History Tobacco Use Types Packs/Day Years [...]
--- OUTSIDE RECORDS SUMMARY | 2024-11-03 07:46 | XMS_ITS | Clinical Summary ---
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 ([facility]) Inject 1.5 mg under the skin 1 [...] Encounters Date Type Department Care Team Description 11/02/2024 Refill [facility] MED & PEDS [address] [place] [address] Braulio Carbajal MD 10/19/2024 Refill [facility] P[facility] [address] [place] [address] Braulio Carbajal MD 10/13/2024 Refill [facility] PED[facility] [address] [place] [address] Braulio Carbajal MD Primary hypertension from Last [...] unspecified whether senior care insulin use (CMS/HCC) ZZZ HISTORICAL HEPATITIS C [...] EDT Narrative 05/25/2024 4:12 PM EDT ? [facility] ? [address] ?[place] [address] ? Mammography Report ? Signed ? Patient: López,Glorymar ?MR#: [id number] ?? [id number] ? : 1975 ?Acct:[id number] ? Age/Sex: 48 / F ?ADM Date: 05/25/ ? Loc: HO.MAMMO ? Attending Dr: Ryan Prescott MD ? Ordering Physician: Ryan Prescott MD ?Results: 2Ben ?? ign Findings ? Date of Service: 05/25/ ?Follow Up: 1 Year From Orig ?? inal Mammogram ? Procedure(s): MM tomosynthesis diagnostic BI ?? Accession Number(s): [id number] ? cc: Braulio Carbajal MD; Ryan Prescott [...] DD/ 1300 ? TD/TT: 05/25/24 1350 ? Rn Hematology: ? Procedure Note Donfayewilmaerickter, Image - 05/25/2024 [facility] [address] [place] [address] Mammography Report Signed Patient: Yana López#: [id number] : 1975Acct:[id number] Age/Sex: 48 / FADM Date: 05/25/24 Loc: HO.MAMMO Attending Dr: Ryan Presctot MD Ordering Physician: Ryan Prescott MDResults: 2Ben ign Findings Date of Service: 05/25/24Follow Up: 1 Year From Orig inal Mammogram Procedure(s): MM tomosynthesis diagnostic BI Accession Number(s): [id number] cc: Braulio Carbajal MD; Ryan Prescott MD [...] 05/25/24 1609 DD/ 1300 TD/TT: 05/25/24 1350 Rn Hematology: [facility] External Provider IMG BI PROCEDURES Edited Result - Final * Lipid Panel, Standard (01/01/2023 10:20 AM EDT) Triglycerides 73 mg/dL [facility] Comment:Desirable Triglyceri de: less than 150 mg/dLBorderline High Triglyceride 150-199 mg/dLHigh Triglyceride: 200-499 mg/dLVery High Triglyceride: greater than or equal to 5OO mg/dL Cholesterol 101 mg/dL [facility] Comment:Desirable Cholestero l: less than 200 mg/dLBorderline High Cholesterol: 200-239 mg/dLHigh Cholesterol: greater than 239 mg/dL LDL Cholesterol Calculated 53 mg/dl [facility] Comment:Desirable LDL: less than 100 mg/dLNear Optimal/Above Optimal LDL: 110- 129 mg/dLBorderline High LDL: 130-159 mg/dLHigh LDL: 160-189 mg/dLVery High LDL: greater than or equal to 190 mg/dL HDL Cholesterol 34 mg/dL [facility] Comment:Desirable HDL: great er than 40 mg/dL Note: This HDL assay may give artificially low results in patients with liver disease. 01/01/2023 10:2 0 AM EDT 01/01/2023 10:20 AM EDT [facility] External Provider LAB BLO OD ORDERABLES Final Result Performing Organization Address [facility] Co de Phone Number [facility] [address] [place] [phone] * HEPATITIS C AB W/REFL TO HCV RNA, QN, PCR (01/24/2022 8:19 AM EDT) HEPATITIS C ANTIBODY NON-REACT [facility] NON-REACT [facility] INDEX 0.02 <1.00 [facility] Comment: ?? HCV antibody was non-reactive. There is no laboratory ?? evidence of HCV infection. ?? In most cases, no further action is required. However, if recent HCV exposure is suspected, a test for HCV RNA (test code 44610) is suggested. ?? For additional information please refer to http://education.[email or web address]/faq/DGK79u7 (This link is being provided for informational/ educational purposes only.) ?? 01/24/2022 8:19 AM EDT Braulio Campbell MD HISTORICAL/NON ORD ERABLE LABS Final Result Performing Organization Address City/[facility] Co de Phone Number [facility] [address] * HIV 1/2 ANTIGEN/ANTIBODY,FOURTH GENERATION W/RFL (01/24/2022 8:19 AM EDT) HIV-1/2 ANTIGEN AND ANTIBODIES, 4TH GENERATION W/ REFLEX NON-REACT [facility] NON-REACT [facility] Comment: HIV-1 antigen and HIV-1/HIV-2 [...] ? For additional information please refer to http://education.[email or web address]/faq/XFY087 (This link is being provided for informational/ educational purposes only.) ? The performance of this assay has not been clinically validated in patients less than 2 years old. ?? 01/24/2022 8:19 AM EDT Braulio Campbell MD LAB BLOOD ORDERABL ES Final Result [facility] [address] from Last 3 Months or Most Recently Relevant to Health Maintenance Insurance [employer]
--- OUTSIDE RECORDS SUMMARY | 2024-11-03 07:46 | XMS_ITS | Encounter Summary ---
Author Organization [email or web address] Address [address] [facility] 7t [place] [address] Care Team Providers Care House Moving Supervisor Name Role Phone Unavailable Primary Care Provider Unavailabl e Reason for Visit * Reason Comments Med Refill Encounter Details Date Type Department Care Team ([facility] st Contact Info) Description 10/13/2024 Refill [facility] & PEDS [address] [place] [address] Braulio Carbajal MD [address] [place] [address] Primary hypertension Social History Tobacco Use Types [...] the past 12 months, has t he [employer], gas, oil or water company threatened to [...]
--- OUTSIDE RECORDS SUMMARY | 2024-11-03 07:46 | XMS_ITS | Data Portability ---
Author Organization [place] [facility] [place] Address [address] [place] [id number] Care Team Providers Care Pmp Project Manager Name Role Phone JAVIER LANGLEY Referring Provider [phone] Assessment Encounter Date Assessment Date Assessment LastModified by Organization Details LastModified Time 06/18/2024 06/18/2024 IMPRESSION: 49-year-old [id number] t woman with RIGHT lateral epicondylitis. PLAN: [...] Gonzalez MS, PA-C in indirect conjunction with [facility] provider Clark Andino MD. He agrees with [...] scale). 2023 024 [email or web address] [facility], [address], [address], [place], [address], 08/13/2024 15:48:51 Surgeries None recorded. Imaging XR, hip, unilatera l, 2 or 3 view 2023 024 [email or web address] [facility], [address], [address], [place], [address], 07/07/2024 11:51:40 XR, elbow, 3 or more view 2023 024 [facility], [address], [address], [place], [address], 06/19/2024 16:54:16 Medication Orders meloxicam 15 mg tablet 2023 024 [facility], [address], [place], [address], 06/18/2024 14:11:51 Patient TargetsNo targets recorded. Patient Instructions Encounter Date Encounter Id Patient Instructions Last Modified By Organization Details Last Modified Time 06/18/2024 [id number] tennis elbow: exercises Not available 06/18/2024 14:11:37 [...] LEFT}} elbow. Not available 06/18/2024 13:55:08 07/07/2024 [id number] {{2 3 4* 5 6 7 8 [...] Organization Details Recorded Time Lateral epicondyli tis 422629997 Active [address], [place], [address] , [place] [facility], P 4 14:10:53 Lateral epicondyli tis 067720687 Active [address], [place], [address] , [place] [facility], P 4 14:11:09 Osteoarthr itis of left hip joint [id number] 08 Active 12/03/ 2024 RADHA GONZALEZ PA-C [address], [place], [address] , [place] [facility], P 4 11:06:02 Problem Notes None recorded. [...] SNOMED-CT Code Diagnosis ICD10 Code Diagnosis Note [id number] Ocsar Avina MD [facility] [address] [facility] [place] [address] 06/18/2024 13:20:00 06/18/2024 14:16:30 Pain in elbow 14041544 M25.521 Lateral epicondylitis 20 3743118 M77.10 [id number] Clark Andino MD [facility] [address] [facility] [address] [place] [address] 07/07/2024 10:17:23 07/07/2024 11:04:15 Hip pain 00499442 M25.552 Osteoarthr itis of left hip joint [id number] 91499 M16.12 Health Concerns Section Related Observation LastModified by Organization Detai ls LastModified Time None Recorded Concern Status LastModified by Organization Details LastModified Time None Recorded Advance Directives Directive None Recorded Payers Encounter Date Sequence Insurance Name Policy Number Policy Fountain Covered Member ID Fountain Member ID Guarantor Name 06/18/2024 1 [employer] [id number] Glorymar López Colon [id number] Glorymar López-Col on 07/07/2024 1 [employer] [id number] Glorymar López Colon [id number] Glorymar López-Col on Notes Date Note Type [...] 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 She is [id number] . Oscar Avina MD [address], [place], [address], [place] [facility], P 06/18/2024 14:13:14 07/07/2024 text/html 49-year-old fema [...] RADHA GONZALEZ PA-C [address], [place], [address], [place] [facility], P 07/07/2024 11:07:40 OBGyn Episode No OBEpisode recorded.
--- OUTSIDE RECORDS SUMMARY | 2024-11-03 07:46 | XMS_ITS | Clinical Summary ---
Author Organization [facility] Address [address] [place] [address] Phone Care Team Providers Care Chemical Process Analyst Name Role Phone Braulio Carbajal Primary Care [...] 9:30 AM EST Nutrition Bariatric Surgery - [address] [place] [address] Class 3 severe obesity with serious comorbidity and body mass index (BMI) of 50.0 to 59.9 in adult, unspecified obesity type ([facility]) (Primary Dx) from Last 3 Months Immunizations Name Administration Dates Next Due Tdap Tetanus diptheria acell ular pertussis (Boostrix; Adacel) 7yo and older 12/11/2012 Surgical History Surgery Date Site/Laterality Comments CHOLECYSTECTOMY 1999 PROCEDURE: HISTORICAL CHOLECYSTECTOMY Medical History Medical History Date Comments HTN (hypertension) 2011 DX:HTN (hyper tension) DM (diabetes mellitus) (CMS/[facility]) 2006 DX:DM (diabetes mellitus) ([facility]) IBS (irritable bowel syndrome) 1993 D X:IBS [...] mg/dL LAB CHEMISTRY METHOD 07/20/2024 11:24 AM [facility] Non HDL Chol. (LDL+VLDL) 126 <145 mg/dL LAB CHEMISTRY METHOD 07/20/2024 11:24 AM [facility] Chol/HDL Ratio 3.4 0.0 - 4.4 LAB CHEMISTRY METHOD 07/20/2024 11:24 AM [facility] Blood Venous blood specimen / Unknown Venipuncture / Unknown 07/20/2024 8:33 AM EST 07/20/2024 8:33 AM EST us Gosia Stoner MD LAB BLOOD ORDERABLES Fi nal Result Performing Organization Address [facility] Co de Phone Number [facility] [address] [place] [address], [place] [phone] * (ABNORMAL) Hemoglobin A1c (07/20/2024 8:33 AM EST) Hemoglobin A1C 7.9(H) <6.5 % LAB CHEMISTRY METHOD 07/20/2024 2:41 PM EST [facility] Mean Bld Glu Estim. 180 mg/dL LAB CHEMISTRY METHOD 07/20/2024 2:41 PM [facility] Blood Venous blood specimen / Unknown Venipuncture / Unknown 07/20/2024 8:33 AM EST 07/20/2024 8:33 AM EST us Gosia Stoner MD LAB BLOOD ORDERABLES Fi nal Result Performing Organization Address [facility]/ZIP Co de Phone Number [facility] [address] [place] [address], [place] [phone] * (ABNORMAL) Comprehensive metabolic panel (07/20/2024 8:33 AM EST) Sodium 136 133 - 145 mmol/L LAB CHEMISTRY METHOD 07/20/2024 11:24 AM [facility] Potassium 4.5 3.5 - 5.5 mmol/L LAB CHEMISTRY METHOD 07/20/2024 11:24 AM [facility] Chloride 100 96 - 110 mmol/L LAB CHEMISTRY METHOD 07/20/2024 11:24 AM [facility] CO2 25 21 - 32 mmol/L LAB CHEMISTRY METHOD 07/20/2024 11:24 AM [facility] Anion Gap 11 3 - 11 LAB CHEMISTRY METHOD 07/20/2024 11:24 AM [facility] Glucose 148(H) 70 - 100 mg/dL LAB CHEMISTRY METHOD 07/20/2024 11:24 AM [facility] BUN 15 5 - 25 mg/dL LAB CHEMISTRY METHOD 07/20/2024 11:24 AM [facility] Creatinine 0.71 0.50 - 1.10 mg/dL LAB CHEMISTRY METHOD 07/20/2024 11:24 AM [facility] eGFR 105 >=60 mL/min/1. 73m2 LAB CHEMISTRY METHOD 07/20/2024 11:24 AM [facility] Comment:Calculation based on the??Chronic Kidney Disease Epidemiology Collaboration (CKD-EPI) equation refit??without adjustment for race. BUN/Creatinine Ratio 21.1 LAB CHEMISTRY METHOD 07/20/2024 11:24 AM [facility] Calcium 9.7 8.5 - 10.5 mg/dL LAB CHEMISTRY METHOD 07/20/2024 11:24 AM [facility] AST (SGOT) 16 10 - 42 unit/L LAB CHEMISTRY METHOD 07/20/2024 11:24 AM [facility] ALT (SGPT) 29 10 - 60 unit/L LAB CHEMISTRY METHOD 07/20/2024 11:24 AM [facility] Alkaline Phosphatase 124(H) 42 - 121 unit/L LAB CHEMISTRY METHOD 07/20/2024 11:24 AM EST [facility] Total Protein 7.7 6.0 - 8.0 g/dL LAB CHEMISTRY METHOD 07/20/2024 11:24 AM EST [facility] Albumin 3.6 3.2 - 5.0 g/dL LAB CHEMISTRY METHOD 07/20/2024 11:24 AM [facility] Total Bilirubin 0.4 0.0 - 1.4 mg/dL LAB CHEMISTRY METHOD 07/20/2024 11:24 AM EST [facility] Blood Venous blood specimen / Unknown Venipuncture / Unknown 07/20/2024 8:33 AM EST 07/20/2024 8:33 AM EST Gosia Stoner MD LAB BLOOD ORDERABLES Fi nal Result [facility] [address] [place] [address], * Urine Albumin Creatinine Ratio (02/26/2014) Urine Albumin Creatinine Ratio Abstracted Historical Provider HEALTH MAINTENANCE Final Result from Last 3 Months or Most Recently Relevant to Health Maintenance Insurance [employer] Care Teams Chemical Process Analyst Relationship Specialty Start Date End Date Braulio Carbajal [address] [place], [place] PCP - General Internal Medicine 03/20/22
--- OUTSIDE RECORDS SUMMARY | 2024-11-03 07:46 | XMS_ITS | Data Portability ---
Author Organization [place] - [facility],, ADRIANA LARA MD Address [address] [address] Assessment No assessment recorded. Plan of Treatment Reminders Order Date Submit Date Provider Last Modified By Organization Details Last Modified Time Details Appointments None recorded. Lab pap test, thinprep, cervical 2021 022 [email or web address] [facility], Cytopathology Service, [address] [place] [address], [address], 2 07:36:24 fecal occult blood, stool 2021 022 [email or web address] In-Office Order, Internal Use Only DO Not Attach Compendium DO Not Attach Compendium, Do Not Delete/merge, [id number] 2 11:34:07 pap test, thinprep, cervical 2020 021 [email or web address] [facility], Cytopathology Service, [address] [place] [address], [address], 1 07:14:16 fecal occult blood, stool 2020 021 [email or web address] 1 In-Office Order, Internal Use Only DO Not Attach Compendium DO Not Attach Compendium, Do Not Delete/merge, [id number] 1 13:58:54 pap test, thinprep, cervical 2019 020 [email or web address] [facility], Cytopathology Service, [address] [place] [address], [address], 0 08:59:10 fecal occult blood, stool 2019 020 [email or web address] In-Office Order, Internal Use Only DO Not Attach Compendium DO Not Attach Compendium, Do Not Delete/merge, [id number] 0 08:59:10 pap test, thinprep, cervical 2018 019 [facility], Cytopathology Service, [address] [place] [address], [address], 9 04:32:23 fecal occult blood, stool 2018 019 [email or web address] In-Office Order, Internal Use Only DO Not Attach Compendium DO Not Attach Compendium, Do Not Delete/merge, [id number] 9 07:31:20 pap test, thinprep, cervical 2014 015 [facility], Cytopathology Service, [address] [place] [address], [address], 5 12:26:29 chlamydia sp, culture, unspecifi ed specimen 2014 015 [facility], Cytopathology Service, [address] [place] [address], [address], 5 08:24:20 NG DNA, PCR, genital 2014 015 [facility], Cytopathology Service, [address] [place] [address], [address], 5 08:24:20 test, urine 2014 015 [email or web address] 1 In-Office Order, Internal Use Only DO Not Attach Compendium DO Not Attach Compendium, Do Not Delete/merge, [id number] 5 11:43:08 Referral None recorded. Procedures None recorded. Surgeries None recorded. Imaging MAMMO, screening , digital, bilateral 2021 022 [facility] Orders, [address], [address], [place], [address], 4 07:16:34 MAMMO, screening , digital, bilateral 2020 021 [facility] Orders, [address], [place], [address], 2 07:36:18 MAMMO, screening , digital, bilateral 2019 020 [facility] (Mammography), [address] [facility], [place], [address], 1 07:41:40 MAMMO, screening , digital, bilateral 2018 019 [facility] Orders, [address], [place], [address], 0 07:25:26 Medication Orders None recorded. Patient TargetsNo targets recorded. Patient Instructions Encounter Date Encounter Id Patient Instructions Last Modified By Organization Details Last Modified Time 12/07/2014 [id number] She is here for annual exam. Her [...] irregular every 4 to 6 weeks, no l3vsjif no for 6 weeks, check u preg, [...] in detail. Not available 12/07/2014 11:43:09 09/01/2018 [id number] She is here for annual exam. She has not been here since 2014. She was seeing [facility] infertility but they gave up on theat and put in a Mirena 2 years ago. No menses. Her diabetes has been Bad. In 07/2016 she started a process to do bariatric surgery at [facility]. She went through all the counseling ,etc, but things fell through the cracks. She is considering going back again. she had weighted more than 400 pounds last year, she lost some weight this past year with diet and exercise but still weighs 366 pounds today. _ note from 2014: She is here for annual exam. Her latest A1C was 10, in 06/18, the [facility] infertility referred her to endocrinology in 06/18, [...] well. Advised to follow up with her rotor pilot about her diabetes. She is going back [...] questions answered. Not available 09/01/2018 10:07:54 09/08/2019 [id number] She is here for annual exam, her weight is stable at 367 pounds. Her was in the ICU for 4 weeks due to sepsis, he is better now though. She had a Mirena placed 3 years ago, no menses. note form 2019: She is here for annual exam. She has not been here since 2014. She was seeing [facility] infertility but they gave up on theat and put in a Mirena 2 years ago. No menses. Her diabetes has been Bad. In 07/2016 she started a process to do bariatric surgery at [facility]. She went through all the counseling ,etc, [...] get the date of IUD insertion at [facility] for us so that we know when [...] detail. rebecca Not available 09/08/2019 15:23:23 04/04/2021 [id number] learning about healthy weight rebecca Not available 04/04/2021 13:58:54 She is here for annual exam, weight is 391 pounds, BMI is 58.6. She had a Mirena inserted 08/2016. No menses. Her mother earlier this year due to natural causes, in [place], she is still grieving. She and her are , she wanted to go to couples counseling but he would only go in [place] and they could not find a [place] speaking counselor. Note from 2019: She is [...] a process to do bariatric surgery at [facility]. She went through all the counseling ,etc, but things fell through the cracks. She is considering going back again. she had weighted more than 400 pounds last year, she lost some weight this past year with diet and exercise but still weighs 366 pounds today. She appears to be doing well. She and I discussed having her go back to [facility] to get back into their weight loss [...] breast. [email or web address] Not available 04/04/2021 14:00:20 04/17/2022 [id number] learning about healthy weight Not available 04/17/2022 [...] this year due to natural causes, in [place], she is still grieving. She and her are , she wanted to go to couples counseling but he would only go in [place] and they could not find a [place] speaking counselor. She appears to be doing [...] DO Not Attach Compendium, Do Not Delete/merge, [id number] 04/04/2021 13:36:07 02/04/09/08/2019 fecal occul t blood , stool Occult Blood negati ve Not Available In-Office Order Internal Use Only DO Not Attach Compendium DO Not Attach Compendium, Do Not Delete/merge, [id number] 09/08/2019 15:00:26 09/01/19 19 09/01/2018 fecal occul t blood , stool Occult Blood negati ve Not Available In-Office Order Internal Use Only DO Not Attach Compendium DO Not Attach Compendium, Do Not Delete/merge, [id number] 09/01/2018 09:30:38 12/08/19 15 12/07/2014 pregn marshal test, urine HCG negati ve Not Available In-Office Order Internal Use Only DO Not Attach Compendium DO Not Attach Compendium, Do Not Delete/merge, [id number] 12/07/2014 10:52:47 12/08/19 15 12/07/2014 gener al5ca se [id number] RESUL TS OF GEN-P ROBE APTIM A COMBO 2 ASSAY Chlam ydia: NEGAT SÁNCHEZ N. gonor rhoea e: NEGAT SÁNCHEZ GENANIRANJAN RIOS M.D., Patho logis t (Case elect martin sy chuy d 12 09 2014) [facility] INFOR MATIO N: LPS NEG SOURC E: ThinP rep Pap for CT/GC Gross Descr iptio n: ThinP rep Vial Recei joanne. Physi JAYSON Russ N /#(21 1) [phone]/2 [id number] [phone] Cytop athol ogy servi carlos provi ded by [facility] at the above addre ss. Not Available [facility], Cytopathology Service [address] [facility], [place], [address], 12/09/2014 15:06:31 12/08/19 15 12/07/2014 pap, LB [id number] ThinP rep Pap, Image d: NEGAT SÁNCHEZ [...] at the above addre ss. Not Available [facility], Cytopathology Service [address] [place] [address], [address], 12/14/2014 12:26:29 09/01/19 19 09/01/2018 pap, LB [id number] ThinP rep Pap, Image d: NEGAT SÁNCHEZ [...] . LPS 5 NEG, Z12.4 Not Available [facility], Cytopathology Service [address] [place] [address], [address], 09/02/2018 17:26:28 09/08/19 20 09/08/2019 pap, LB [id number] ThinP rep Pap, Image d: NEGAT SÁNCHEZ [...] . LPS NEG [Z12. 4] Not Available [facility], Cytopathology Service [address] [place], [address], 09/10/2019 13:06:44 04/04/20 21 04/04/2021 PAP1C ASE [id number] ThinP rep Pap, Image d: NEGAT SÁNCHEZ [...] LPS 0 NEG [Z12. 4] Not Available [facility], Cytopathology Service [address] [place] [address], [address], 04/12/2021 13:55:52 04/17/2004/17/2022 PAP1C ASE [id number] ThinP rep Pap, Image d: NEGAT SÁNCHEZ [...] IUD, LPS neg. [z01. 419] Not Available [facility], Cytopathology Service [address] [place] [address], [address], 04/23/2022 08:11:00 04/17/2004/17/2022 fecal occul t blood , stool Occult Blood negati ve Not Available In-Office Order Internal Use Only DO Not Attach Compendium DO Not Attach Compendium, Do Not Delete/merge, [id number] 04/17/2022 10:29:09 Result Notes None recorded. Problems Name Problem SNOMED Code Status Onset Date Resolution Date Notes Provider Name and Address Organization Details Recorded Time Candidal vulvovaginiti s 50779634 Active Not Available [facility] 3 03:01:06 Irritable bowel syndrome 04586124 Active Not Available [facility] 3 03:01:06 Obesity 703307454 Active Not Available [facility] 3 03:01:06 Oligoovulator y dysfunctional uterine bleeding 425064713 Active Adriana Lara MD [address], [place], [address] , [place] - [facility], 5 11:43:08 Uncontrolled type 2 diabetes mellitus 964214011 Active Not Available [facility] 3 03:01:06 Primary female infertility 0829262 Active Not Available [facility] 3 03:01:06 Pruritus of vulva 66812091 Active Not Available [facility] 3 03:01:06 Pain in pelvis 80969400 Active Adriana Lara MD [address], [place], [address] , [place] - [facility], 4 15:07:42 Glycosuria 91511825 Active Adriana Lara MD [address], [place], [address] , [place] - [facility], 4 15:07:42 Problem Notes None recorded. Procedures Surgical History Date Name Laterality Status Provider Name and Address Organization Details Recorded Time 04/05/20 20 Most Recent Mammogram completed Yashira Alonso [place] - [facility], 04/17/2022 10:36:13 08/05/19 Cholecystectomy completed Taryn Beasley [place] - [facility], 11/10/2012 13:22:27 Imaging Results None recorded. Procedure Notes None recorded. Medical Equipment None Reported. Allergies Allergen ID Allergen Name Allergen Category Reaction Reaction Severity Criticality Documentation Date Start Date Code Code System Note Provider Name and Address Organization Details Recorded Time 23863 [facility] environor nt,medica tion rash Not available Not available 09/08/2019 83813 RxNorm Yashira Celeste [place] [facility] in [facility], 0 14:53:01 7561 Product containin g penicilli n (product) medicatio n rash Not available Not available 11/10/2012 52746 8001 SNOMED Taryn Beasley [place] - Ernesto in [facility], 3 13:11:08 Medications Name Sig Start [...] henidate ER 40 mg capsule,ex tended release fvnvbete50 -50 TAKE 1 CAPSULE BY MOUTH EVERY [...] Available Not Available Not Available Afluria Quad [id number] (PF) 60 mcg (15 mcg x 4)/0.5 mL IM syringe active Not Available Not Available N ot Available FreeStyle Alexei 14 Day [place] FOR TESTING GLUCOSE LEVELS active Not Available [...] 9 175.26 cm 95 /min 54.2 kg/m2 214071. 68 g 122 mm[Hg] 65 mm[Hg] Taryn Beasley [place] - [place] in [facility], 9 09:12:36 Date Recorded Body weight Body mass index (BMI) Body height Heart rate Systolic blood pressure Diastolic blood pressure Provider Name and Address Organization Details Last Updated DateTime 0 706729. 12 g 55 kg/m2 173.99 cm 110 /min 132 mm[Hg] 77 mm[Hg] Yashira Orozco in [facility], 0 14:53:44 Date Recorded Body height Body temperature Body mass index (BMI) Body weight Heart rate Systolic blood pressure Diastolic blood pressure Provider Name and Address Organization Details Last Updated DateTime 1 173.99 cm 97.2 [degF] 58.6 kg/m2 430769. 34 g 104 /min 141 mm[Hg] 75 mm[Hg] Yashira Orozco in [facility], 1 13:34:29 Date Recorded Body weight Body mass index (BMI) Body height Body temperature Heart rate Systolic blood pressure Diastolic blood pressure Provider Name and Address Organization Details Last Updated DateTime 2 513910. 19 g 54.3 kg/m2 172.72 cm 98.1 [degF] 93 /min 142 mm[Hg] 79 mm[Hg] Yashira Alonso [place] - [place] in [facility], 2 10:33:37 Date Recorded Body weight Heart rate Body mass index (BMI) Body height Systolic blood pressure Diastolic blood pressure Provider Name and Address Organization Details Last Updated DateTime 5 523775. 1769 g 103 /min 54.6 kg/m2 175.26 cm 119 mm[Hg] 71 mm[Hg] Yashira Alonso [place] - [place] in [facility], 5 10:17:20 Social History Question Answer Notes LastModified by Organizat ion Details LastModified Time Tobacco Smoking Status Never Smoker Not Available [employer] 06/07/2020 03:19:40 What Is Your Level Of Alcohol Consumption? None [id number] Information not available 06/07/2020 What Is Your Level Of Caffeine Consumption? Occasional [id number] Information not available 06/07/2020 In The 14 [...] Type Of Diet Are You Following? REGULAR [id number] Information not available 06/07/2020 Which Illicit Or Recreational Drugs Have You Used? None [id number] Information not available 06/07/2020 Do You Reside In Or Have You Traveled To An Area Where Ebola Virus Transmission Is Active? No [id number] Information not available 06/07/2020 Do You Or Have You Ever Used E-cigarettes Or Vape? Never Used Electronic Cigarettes [id number] Information not available 06/07/2020 Education Post Graduate Information not available 11/10/2012 What Is The Highest Grade Or Level Of School You Have Completed Or The Highest Degree You Have Received? CX35193-3 Information not available 04/04/2021 Who Is Your Employer? [employer] 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 Yes [id number] Information not available 06/07/2020 Do You Or Have You Ever Used Smokeless Tobacco? Never Used Smokeless Tobacco [id number] Information not available 06/07/2020 How Much Tobacco Do You Smoke? No [id number] Information not available 06/07/2020 General Stress Level Medium Information not available 09/08/2019 Do You Feel Stressed (tense, Restless, Nervous, Or Anxious, Or Unable To Sleep At Night)? HE34529-1 Information not available 04/04/2021 Do You Use Any Illicit Or Recreational Drugs? No Information not available 04/04/2021 Have You Recently (within The Last 12 Weeks, Or During A Current ) Traveled To Or Lived In A Zika-affected Area? No [employer] Information not available 09/01/2018 Do You Or Have You Ever Used Any Other Forms Of Tobacco Or Nicotine? No Information not available 04/04/2021 Sex: Female Functional Status Question Answer Note LastModified by Organization D etails LastModified Time What is your exercise level? None [id number] Information not available 06/07/2020 Mental Status None [...] MD [address], [place], [address], [place] Orozco in [facility], 11/10/2012 13:43:51 Tdap 3 completed [place] Sexton in [facility], 12/11/2012 15:22:23 Influenza, split virus, quadrivalent, preservative 9 completed [place] Sexton in [facility], 09/01/2018 09:26:24 COVID-19, mRNA, LNP-S, PF, 100 mcg/0.5mL dose or 50 mcg/0.25mL dose 1 completed [place] Ramos in [facility], 04/04/2021 13:38:30 Influenza, split virus, quadrivalent, preservative 1 completed [place] Ramos in [facility], 04/17/2022 10:34:55 Past Encounters Encounter ID Performer Location Encounter Start Date Encounter Closed Date Diagnosis/Indication Diagnosis SNOMED-CT Code Diagnosis ICD10 Code Diagnosis Note [id number] Yashira LARA MD [address] [place] [address] 11/10/2012 12:51:19 11/11/2012 08:37:47 [id number] MD ADRIANA Dickson MD [address] [place] [address] 12/11/2012 15:08:24 12/12/2012 16:10:03 [id number] Taryn LARA MD [address] [place] [address] 08/21/2013 13:33:26 08/21/2013 15:51:36 Pain in pelvis 23738428 Acute lowe r urinary tract infection 375341573 Glycosuria 61610617 [id number] Tayrn Beasley ADRIANA LARA MD [address] [place] [address],[place] [address] 11/13/2013 09:28:08 11/13/2013 13:10:39 Specialized medical examination 15513516 [id number] ADRIANA LARA MD [address] [place] [address],[place] [address] 12/07/2014 10:02:59 12/07/2014 13:34:46 Specialized medical examination 45894986 Venereal d isease screening 151338392 Oligoovula tory dysfunctional uterine bleeding 562963409 [id number] MD ADRIANA Dickson MD [address] [place] [address],[place] [address] 09/01/2018 09:04:26 09/01/2018 12:06:59 Specialized medical examination 81834202 Z01.419 Screening for malignant neoplasm of rectum 067939506 Z12.12 Screening mammography 24 598759 Z12.31 [id number] MD ADRIANA Dickson MD [address] [place] [address],[place] [address] 09/08/2019 14:46:50 09/08/2019 15:34:18 Specialized medical examination 23369631 Z01.419 Screening for malignant neoplasm of rectum 292688442 Z12.12 Screening mammography 24 384286 Z12.31 [id number] MD ADRIANA Dickson MD [address] [place] [address],[place] [address] 04/04/2021 13:29:45 04/04/2021 14:48:20 Specialized medical examination 76404978 Z01.419 Screening for malignant neoplasm of rectum 970259809 Z12.12 Screening mammography 24 254350 Z12.31 [id number] MD ADRIANA Dickson MD [address] [place] [address],[place] [address] 04/17/2022 10:28:03 04/17/2022 11:34:15 Specialized medical examination 58890903 Z01.419 Screening for malignant neoplasm of rectum 504219827 Z12.12 Screening mammography 24 461571 Z12.31 Health Concerns Section Related Observation LastModified by Organization Detai ls LastModified Time None Recorded Concern Status LastModified by Organization Details LastModified Time None Recorded Advance Directives Directive None Recorded Payers Encounter Date Sequence Insurance Name Policy Number Policy Fountain Covered Member ID Fountain Member ID Guarantor Name 12/07/2014 1 [facility] [id number] Glorymar López [id number] Glorymar López Colon 09/01/2018 1 [facility] [id number] Glorymar López [id number] Glorymar López Colon 09/08/2019 1 [facility] [id number] Glorymar López [id number] Glorymar López Colon 04/04/2021 1 [facility] [id number] Glorymar López [id number] Glorymar López Colon 04/17/2022 1 [facility] [id number] Glorymar López [id number] Glorymar López Colon Notes Date Note Type Note Provider Name and Address Organization Details Recorded Time 09/01/2018 text/html She is here for annual exam. She has not been here since 2014. She was seeing [facility] infertility but they gave up on theat and put in a Mirena 2 years ago. No menses. Her diabetes has been Bad. In 07/2016 she started a process to do bariatric surgery at [facility]. She went through all the counseling ,etc, but things fell through the cracks. She is considering going back again. she had weighted more than 400 pounds last year, she lost some weight this past year with diet and exercise but still weighs 366 pounds today. _ note from 2014: She is here for annual exam. Her latest A1C was 10, in 06/18, the [facility] infertility referred her to endocrinology in 06/18, she was given instructions for rescue insulin doses when her sugars are high, she is doing that now, she had an A1C drawn on 11/25/14 but has not received the results yet. Adriana Lara MD [address], [place], [address], [place] - [facility], 09/01/2018 10:08:27 09/08/2019 text/html She [...] a process to do bariatric surgery at [facility]. She went through all the counseling ,etc, but things fell through the cracks. She is considering going back again. she had weighted more than 400 pounds last year, she lost some weight this past year with diet and exercise but still weighs 366 pounds today. Adriana Lara MD [address], [place], [address], [place] - [facility], 09/08/2019 15:23:49 04/04/2021 text/html She is here for annual exam, weight is 391 pounds, BMI is 58.6. She had a Mirena inserted 08/2016. No menses. Her mother earlier this year due to natural causes, in [place], she is still grieving. She and her are , she wanted to go to couples counseling but he would only go in [place] and they could not find a [place] speaking counselor. Note from 2020: She is [...] a process to do bariatric surgery at [facility]. She went through all the counseling ,etc, but things fell through the cracks. She is considering going back again. she had weighted more than 400 pounds last year, she lost some weight this past year with diet and exercise but still weighs 366 pounds today. Adriana Lara MD [address], [place], [address], [place] - [facility], 04/04/2021 14:00:40 04/17/2022 text/html Her [...] this year due to natural causes, in [place], she is still grieving.She and her are , she wanted to go to couples counseling but he would only go in [place] and they could not find a [place] speaking counselor. Adriana Lara MD [address], [place], [address], [place] - [facility], 04/17/2022 11:00:04 OBGyn Episode No OBEpisode recorded.
--- OUTSIDE RECORDS SUMMARY | 2024-11-03 07:46 | XMS_ITS | Encounter Summary ---
Author Organization [employer] Address [address] [facility] [address] [place] [address] Care Team Providers Care Local Coordinator Name Role Phone Unavailable Primary Care Provider Unavailabl e Reason for Visit * Reason Comments Med Refill Encounter Details Date Type Department Care Team ([facility] st Contact Info) Description 10/19/2024 Refill [facility] PEDS [address] [place] [address] Braulio Carbajal MD [address] [place] [address] Social History Tobacco Use Types Packs/Day Years [...]
--- OUTSIDE RECORDS SUMMARY | 2024-11-03 07:47 | XMS_ITS | Clinical Summary ---
Author Organization [facility] Address [address] [place] [address] Care Team Providers Care Food Processing Plant Manager Name Role Phone Braulio Lopez MD Primary Care Provider [phone] Allergies Active Allergy Reactions Criticality Noted Date [...] age to complete this topic Care Teams Food Processing Plant Manager Relationship Specialty Start Date End Date Braulio Lopez MD [address] [place] [phone] PCP - General Internal Medicine 03/20/22
--- OUTSIDE RECORDS SUMMARY | 2024-11-03 07:47 | XMS_ITS | Encounter Summary ---
Author Organization [facility] Address [address] [place] [address] [address] [address] Care Team Providers Care Outer Diameter Grinder Tool Name Role Phone Braulio Carbajal MD Primary Care Prov ider Reason for Visit * Reason Comments Med Refill Encounter Details Date Type Department Care Team (Late st Contact Info) Description 10/29/2022 Refill [facility] [address] [place], [place] [phone] Braulio Carbajal MD [address] [place] [address] Social History Tobacco Use Types Packs/Day Years [...] on filedocumented in this encounter Care Teams Outer Diameter Grinder Tool Relationship Specialty Start Date End Date Braulio Carbajal MD [address] [place] [address] PCP - General Internal Medicine 12/14/19 04/28/24 documented as of this encounter
--- OUTSIDE RECORDS SUMMARY | 2024-11-03 07:47 | XMS_ITS | Clinical Summary ---
Author Organization [facility] Address [address] [place] [id number] Care Team Providers Care Frame Fixer Name Role Phone Braulio Lopez Primary Care Provider [phone] Allergies Active Allergy Reactions Criticality Noted Date [...] Diabetes: Visual Foot Exam 02/01/2022 Influenza Vaccine (Season Ended) 2025 Pneumococcal Vaccine: Pediat rics (0 to 5 Years) and At-Risk Patients (6 to 64 Years) Aged Out No longer eligible b ased on patient's age to complete this topic Care Teams Frame Fixer Relationship Specialty Start Date End Date Braulio Lopez PCP - General Internal Medicine 02/01/22
--- OUTSIDE RECORDS SUMMARY | 2024-11-03 07:47 | XMS_ITS | Continuity of Care Document ---
Author Organization [facility] Address [address] [place] [address] Phone [phone] Social History Type Date Description Comments Sex Unknown Medical Devices Description No Information Available Encounters Description No Information Available Assessments Description No Information Available Plan of Treatment No Information Available Functional Status Description No Information Available Mental Status Description No Information Available Referrals Description No Information Available
--- OUTSIDE RECORDS SUMMARY | 2024-11-03 07:47 | XMS_ITS | Encounter Summary ---
Author Organization [facility] Address [address] [place] [address] [address] [address] Care Team Providers Care Family Service Worker Name Role Phone Braulio Carbajal MD Primary Care Prov ider Reason for Visit * Reason Comments Med Refill Encounter Details Date Type Department Care Team (Late st Contact Info) Description 10/29/2022 Refill [facility] [address] [place], [place] [phone] Braulio Carbajal MD [address] [place] [address] Social History Tobacco Use Types Packs/Day Years [...] on filedocumented in this encounter Care Teams Family Service Worker Relationship Specialty Start Date End Date Braulio Carbajal MD [address] [place] [address] PCP - General Internal Medicine 12/14/19 04/28/24 documented as of this encounter
--- OUTSIDE RECORDS SUMMARY | 2024-11-03 07:47 | XMS_ITS | Encounter Summary ---
Author Organization [employer] Address [address] [facility] 7 [place] [address] Care Team Providers Care Sap Bpc Architect Name Role Phone Braulio Carbajal MD Primary Care Prov ider Reason for Visit * Reason Onset Date Comments Med Refill 02/28/2023 Encounter Details Date Type Department Care Team (Late st Contact Info) Description 02/28/2023 Refill [facility] [address] [place] [address] Braulio Carbajal MD [address] [place] [phone] Mixed hyperlipidemia; Primary hypertension; Type 2 diabetes [...] (CMS/HCC) documented in this encounter Care Teams Sap Bpc Architect Relationship Specialty Start Date End Date Braulio Carbajal MD [address] [place] [id number] PCP - General Internal Medicine 12/14/19 04/28/24 documented as of this encounter
--- OUTSIDE RECORDS SUMMARY | 2024-11-03 07:47 | XMS_ITS | Encounter Summary ---
Author Organization [facility] Address [address] [place] [address] Care Team Providers Care Student Services Vice President Name Role Phone Braulio Carbajal MD Primary Care Prov ider Reason for Visit * Reason Onset Date Comments Med Refill 02/28/2023 Encounter Details Date Type Department Care Team ([facility] st Contact Info) Description 02/28/2023 Refill [facility] P[facility]S [address] [place] [address] Braulio Carbajal MD [address] [place] [address] Social History Tobacco Use Types Packs/Day Years [...] on filedocumented in this encounter Care Teams Student Services Vice President Relationship Specialty Start Date End Date Braulio Carbajal MD [address] [place] [address] PCP - General Internal Medicine 12/14/19 04/28/24 documented as of this encounter
--- OUTSIDE RECORDS SUMMARY | 2024-11-03 07:47 | XMS_ITS | Encounter Summary ---
Author Organization [employer] Address [address] [facility] [address] [place] [address] Care Team Providers Care Rack Worker Name Role Phone Barulio Carbajal MD Primary Care Prov ider Encounter Details Date Type Department Care Team (Late st Contact Info) Description 08/17/2022 Orders Only [facility] MEDICINE [address] [place] [address] Braulio Carbajal MD [address] [place] [address] Type 2 diabetes mellitus without complication, unspecified whether exterminator insulin use ([facility]) (Primary Dx) Social History Tobacco [...] 2 diabetes mellitus without complication, unspecified whether exterminator insulin use (CMS/HCC) HEMATOXYLIN AND EOSIN STAIN Routine 01/09/2023 8:38 AM EDT Type 2 diabetes mellitus without complication, unspecified whether retirement insulin use (CMS/HCC) COVID-19 ID NOW (DUPREE) Routine 01/08/2023 2:18 PM EDT Type 2 diabetes mellitus without complication, unspecified whether retirement insulin use (CMS/HCC) TYPE AND SCREEN Routine 01/01/2023 10:22 AM EDT Type 2 diabetes mellitus without complication, unspecified whether exterminator insulin use (CMS/HCC) VITAMIN D,25-OH,TOTAL,IA Routine 01/01/2023 10:20 AM EDT Type 2 diabetes mellitus without complication, unspecified whether retirement insulin use (CMS/HCC) TSH W/REFLEX TO FT4 Routine 01/01/2023 1 0:20 AM EDT Type 2 diabetes mellitus without complication, unspecified whether retirement insulin use (CMS/HCC) CBC WITH AUTO DIFFERENTIAL Routine 01/01/2023 10:20 AM EDT Type 2 diabetes mellitus without complication, unspecified whether retirement insulin use (CMS/HCC) ZINC Routine 01/01/2023 10:20 AM EDT Type 2 diabetes mellitus without complication, unspecified whether exterminator insulin use (CMS/HCC) VITAMIN A Routine 01/01/2023 10:20 AM EDT Type 2 diabetes mellitus without complication, unspecified whether exterminator insulin use (CMS/HCC) APTT Routine 01/01/2023 10:20 AM EDT Type 2 diabetes mellitus without complication, unspecified whether exterminator insulin use (CMS/HCC) PROTHROMBIN TIME-INR Routine 01/01/2023 10:20 AM EDT Type 2 diabetes mellitus without complication, unspecified whether retirement insulin use (CMS/HCC) C-REACTIVE PROTEIN Routine 01/01/2023 10 :20 AM EDT Type 2 diabetes mellitus without complication, unspecified whether retirement insulin use (CMS/HCC) VITAMIN B1 Routine 01/01/2023 10:20 AM EDT Type 2 diabetes mellitus without complication, unspecified whether exterminator insulin use (CMS/HCC) PTH, INTACT WITHOUT CALCIUM Routine 01/01/2023 10:20 AM EDT Type 2 diabetes mellitus without complication, unspecified whether exterminator insulin use (CMS/HCC) HEMOGLOBIN A1C Routine 01/01/2023 10:20 AM EDT Type 2 diabetes mellitus without complication, unspecified whether retirement insulin use (CMS/HCC) FERRITIN Routine 01/01/2023 10:20 AM EDT Type 2 diabetes mellitus without complication, unspecified whether retirement insulin use (CMS/HCC) VITAMIN B12 Routine 01/01/2023 10:20 AM EDT Type 2 diabetes mellitus without complication, unspecified whether exterminator insulin use (CMS/HCC) LIPID PANEL, STANDARD Routine 01/01/2023 10:20 AM EDT Type 2 diabetes mellitus without complication, unspecified whether exterminator insulin use (CMS/HCC) COMPREHENSIVE METABOLIC PANEL Routine 01/01/2023 10:20 AM EDT Type 2 diabetes mellitus without complication, unspecified whether exterminator insulin use (CMS/HCC) GLUCOSE, WHOLE BLOOD Routine 11/13/2022 1:31 PM EDT Type 2 diabetes mellitus without complication, unspecified whether retirement insulin use (CMS/HCC) HEMOGLOBIN A1C Routine 11/13/2022 1:14 PM EDT Type 2 diabetes mellitus without complication, unspecified whether retirement insulin use (CMS/HCC) documented in this encounter Results * CA 19-9 (01/09/2023 10:38 AM EDT) CA 19-9 14 <34 U/mL [facility] Comment:The CA19-9 result ma y be increased on average 14% - 20%,relative to results previously obtained with this methoddue to a recent calibrator adjustment made in Octobery the reagent head school custodian. In the low range for thisassay (< [...] or absence of disease.THIS TEST WAS PERFORMED AT:[employer] [place] [id number] LONDONO MD 01/09/2023 10:3 8 AM EDT 01/09/2023 10:42 AM EDT [facility] External Provider LAB BLO OD ORDERABLES Final Result [facility] [address] [place] [phone] * Hematoxylin and Eosin Stain (01/09/2023 8:38 AM EDT) 01/09/2023 8:38 AM EDT 01/09/2023 8:53 AM EDT Narrative [facility] - 01/14/2023 1:28 PM EDT ----- ------- Name: Julia López ? Age/Sex: 47/F ? : 1975 Unit#: [id number] ?? Attend Dr: Darci Sanders MD ?Re01/09/23 ?Status: DEP SDC ? Location: HO.SSS ?Disch: ? ----- ------- SPEC : [id number] ? RECD: 01/09/23 ? STATUS: ??SOUT ? REQ NUM: [id number] ? PUSHPA: 01/09/23 ? SUBM DR: Darci [...] ? Age/Sex: 47/F ? : 1975 Unit#: [id number] ?? Attend Dr: Darci Sanders MD ?Re01/09/23 ?Status: DEP SDC ? Location: HO.SSS ?Disch: ? ----- ------- SPEC : [id number] ? RECD: 01/09/23 ? STATUS: ??SOUT ? REQ NUM: [id number] ? PUSHPA: 01/09/23 ? SUBM DR: Darci [...] ?? [address] ?? [place] [address] ?? [phone] ?? Darci Sanders MD ?? [address] [place] [address], [address] ?? [place] [address] ?? [phone] ----- ------- Signed (signature on file) Shaun Lebron MD 01/14/23 1328 ? ----- ------- ? END OF REPORT ? us [facility] External Provider LAB BLO OD ORDERABLES Final Result [facility] [address] [place] [address] [phone] * COVID-19 ID NOW ([employer]) (01/08/2023 2:18 PM EDT) IDNOW SERIAL# [id number] [facility] COVID-19 TEST Negative Negative [facility] COVID-19 NOTE See Note [facility] Comment: Results are for the identification of SARS-CoV2 RNA. TheSARS-CoV2 RNA is generally detectable in respiratory samplesduring the acute phase of infection. Positive results areindicative of the presence of SARS-CoV-2 RNA; clinicalcorrelation with patient history and other diagnosticinformation is necessary to determine patient infectionstatus. Positive results do not rule out bacterial infectionor co- infection with other viruses.Testing facilities within the [facility] and itsterritories are required to report [...] 2:18 PM EDT 01/08/2023 2:32 PM EDT [facility] Exter nal Provider LAB MOLECULAR DIAGNOSTICS ORDERABLES Final Result Performing Organization Address [facility]/ZIP Co de Phone Number [facility] [address] [place] [phone] * Type and screen (01/01/2023 10:22 AM EDT) Blood Type OP [facility] Antibody Screen NEGATIVE [facility] 01/01/2023 10:2 2 AM EDT 01/01/2023 11:04 AM EDT Narrative [facility] - 01/01/2023 11:55 AM EDT Spec expiration changed by JAMESON on 01/01/23Reason: For SURGERYNURSING:Call Blood Bank (ext. [phone]) to band patient on admission.Type and Screen in effect until 2300 on 01/09/23Witnessed by EDELMIRA [facility] External Provider LAB BLO OD BANK TEST ORDERABLES Final Result Performing Organization Address [facility] Co de Phone Number [facility] [address] [place] [phone] * (ABNORMAL) Vitamin A (01/01/2023 10:20 AM EDT) Vitamin A (Retinol) 32(A) 38 - 98 mcg/dL [facility] Comment:Vitamin supplementat ion within 24 hours prior toblood draw may affect the accuracy of the results.This test was developed and its analytical performancecharacteristics have been determined by [employer] [place], [place]. It hasnot been cleared or approved by the U.S. Food and DrugAdministration. This assay has been validated pursuantto the CLIA regulations and is used for clinicalpurposes.THIS TEST WAS PERFORMED AT:[employer] [id number] [place] [address]FOMPNQRNICOLA BARRY MD,PHD 01/01/2023 10:2 0 AM EDT 01/01/2023 10:20 AM EDT [facility] External Provider LAB BLO OD ORDERABLES Final Result Performing Organization Address [facility] Co de Phone Number [facility] [address] [place] [phone] * (ABNORMAL) Vitamin B1 (01/01/2023 10:20 AM EDT) Vitamin B1 <6(A) 8 - 30 nmol/L [facility] Comment:Vitamin supplementat ion within 24 hours prior toblood draw may affect the accuracy of the results.This test was developed and its analytical performancecharacteristics have been determined by [employer] [place], [place]. It hasnot been cleared or approved by the U.S. Food and DrugAdministration. This assay has been validated pursuantto the CLIA regulations and is used for clinicalpurposes.THIS TEST WAS PERFORMED AT:[employer] [id number] [place] [address]WZKIZXNNICOLA BARRY MD,PHD 01/01/2023 10:2 0 AM EDT 01/01/2023 10:20 AM EDT [facility] External Provider LAB BLO OD ORDERABLES Final Result Performing Organization Address [facility] Co de Phone Number [facility] [address] [place] [phone] * Zinc (01/01/2023 10:20 AM EDT) Zinc 84 60 - 130 mcg/dL [facility] Comment:This test was develo ped and its analytical performancecharacteristics have been determined by [employer] [place], [place]. It hasnot been cleared or approved by the U.S. Food and DrugAdministration. This assay has been validated pursuantto the CLIA regulations and is used for clinicalpurposes.THIS TEST WAS PERFORMED AT:[id number] [place] [address]BZPVHOONICOLA BARRY MD,PHD 01/01/2023 10:2 0 AM EDT 01/01/2023 10:20 AM EDT [facility] External Provider LAB BLO OD ORDERABLES Final Result Performing Organization Address [facility] Co de Phone Number [facility] [address] [place] [address] [phone] * PTH, Intact Without Calcium (01/01/2023 10:20 AM EDT) PTHI 32 16 - 77 pg/mL [facility] Comment:Interpretive Guide I ntact PTH Calcium -------Normal Parathyroid Normal NormalHypoparathyroidism Low or Low Normal LowHyperparathyroidism Primary Normal or High High Secondary High Normal or Low Tertiary High HighNon-Parathyroid Hypercalcemia Low or Low Normal High Calcium (PTHI) 9.9 8.6 - 10.2 mg/dL [facility] Comment:THIS TEST WAS PERFOR MED AT:[employer] [address] [id number] LONDONO MD 01/01/2023 10:2 0 AM EDT 01/01/2023 10:20 AM EDT [facility] External Provider LAB BLO OD ORDERABLES Final Result Performing Organization Address [facility]/ZIP Co de Phone Number [facility] [address] [place] [phone] * Lipid Panel, Standard (01/01/2023 10:20 AM EDT) Triglycerides 73 mg/dL [facility] Comment:Desirable Triglyceri de: less than 150 mg/dLBorderline High Triglyceride 150-199 mg/dLHigh Triglyceride: 200-499 mg/dLVery High Triglyceride: greater than or equal to 5OO mg/dL Cholesterol 101 mg/dL [facility] Comment:Desirable Cholestero l: less than 200 mg/dLBorderline High Cholesterol: 200-239 mg/dLHigh Cholesterol: greater than 239 mg/dL LDL Cholesterol Calculated 53 mg/dl [facility] Comment:Desirable LDL: less than 100 mg/dLNear Optimal/Above Optimal LDL: 110- 129 mg/dLBorderline High LDL: 130-159 mg/dLHigh LDL: 160-189 mg/dLVery High LDL: greater than or equal to 190 mg/dL HDL Cholesterol 34 mg/dL [facility] Comment:Desirable HDL: great er than 40 mg/dL Note: This HDL assay may give artificially low results in patients with liver disease. 01/01/2023 10:2 0 AM EDT 01/01/2023 10:20 AM EDT [facility] External Provider LAB BLO OD ORDERABLES Final Result Performing Organization Address City/[facility]/ZIP Co de Phone Number [facility] [address] [place] [phone] * (ABNORMAL) C-reactive Protein (01/01/2023 10:20 AM EDT) C Reactive Protein 2.54(H) < or = 0.50 mg/dL [facility] 01/01/2023 10:2 0 AM EDT 01/01/2023 10:20 AM EDT [facility] External Provider LAB BLO OD ORDERABLES Final Result [facility] [address] [place] [phone] * (ABNORMAL) Comprehensive Metabolic Panel (01/01/2023 10:20 AM EDT) Sodium 136 135 - 145 mmol/L [facility] Potassium 4.7 3.3 - 5.1 mmol/L [facility] Chloride 99 96 - 108 mmol/L [facility] Carbon Dioxide 28 22 - 29 mmol/L [facility] Anion Gap 14 12 - 20 [facility] Urea Nitrogen (BUN) 13 9 - 16 mg/dL [facility] Creatinine, Serum 0.80 0.5 - 1.4 mg/dL [facility] Creatinine Clr Calc Pharmacy 134.3 [facility] Comment:Provided height and weight: 175.26 cm,142.882 kg.eGFR (calculated from the MDRD study equation) and eCrCl(calculated from the Cockcroft-Gault equation) are based ondifferent parameters and may not yield comparable results.If eCrCl result is absurd, please check patient'sheight/weight. Estimated Glomerular Filt Rate >60 [facility] Comment:NOTE: For -Am erican individuals, multiply the result by 1.210.Chronic Kidney Disease: Estimated GFR < 60 mL/min/1.82y3Vvbzan Kidney Disease: Estimated GFR < 15 mL/min/1.73m2 Glucose 141(H) 60 - 115 mg/dL [facility] Calcium 10.0 8.4 - 10.2 mg/dL [facility] Bilirubin, Total 0.9 0.0 - 1.0 mg/dL [facility] Aspartate Amino Transferase 18 5 - 31 U/L [facility] Alanine Aminotransferase 14 0 - 31 U/L [facility] Total Protein 7.9 6.5 - 8.0 g/dL [facility] Albumin Level 4.0 3.5 - 5.0 g/dL [facility] Alkaline Phosphatase 85 39 - 117 U/L [facility] 01/01/2023 10:2 0 AM EDT 01/01/2023 10:20 AM EDT [facility] External Provider LAB BLO OD ORDERABLES Final Result Performing Organization Address [facility]/ZIP Co de Phone Number [facility] [address] [place] [phone] * TSH W/Reflex to FT4 (01/01/2023 10:20 AM EDT) TSH reflex Free T4 1.39 0.32 - 4.0 uIU/mL [facility] 01/01/2023 10:2 0 AM EDT 01/01/2023 10:20 AM EDT [facility] External Provider LAB BLO OD ORDERABLES Final Result Performing Organization Address [facility] de Phone Number [facility] [address] [place] [phone] * Vitamin D, 25-Hydroxy, Total, Immunoassay (01/01/2023 10:20 AM EDT) Vitamin D 25-OH Total 23.8 >30 ng/mL [facility] Comment:Health Based Referen ce Values*< 20 ng/mL Oltypfirn20-39 ng/mL Insufficient> 30 ng/mL Sufficient*Nay HASTINGS. N [...] 0 AM EDT 01/01/2023 10:20 AM EDT [facility] External Provider LAB BLO OD ORDERABLES Final Result Performing Organization Address [facility] Co de Phone Number [facility] [address] [place] [phone] * Vitamin B12 (01/01/2023 10:20 AM EDT) Vitamin B12 505 200 - 900 pg/mL [facility] Comment:NORMAL 200-900 PG/ML INDETERMINATE 160-199 PG/ML DEFICIENT < 160 PG/ML 01/01/2023 10:2 0 AM EDT 01/01/2023 10:20 AM EDT [facility] External Provider LAB BLO OD ORDERABLES Final Result Performing Organization Address [facility] Co de Phone Number [facility] [address] [place] [phone] * Ferritin (01/01/2023 10:20 AM EDT) Ferritin 192 10 - 250 ng/mL [facility] 01/01/2023 10:2 0 AM EDT 01/01/2023 10:20 AM EDT [facility] External Provider LAB BLO OD ORDERABLES Final Result Performing Organization Address [facility] Co de Phone Number [facility] [address] [place] [phone] * Hemoglobin A1c (01/01/2023 10:20 AM EDT) Hemoglobin A1c 6.8 % [facility] Comment:Hemoglobin A1C Refer ence Range Adults: 4.8 - 6.0 % Non diabetic: < 6.0 % Goal: < 7.0 %Additional Action Suggested: > 8.0 %Note: Hemoglobin A1c results are invalid for patients with abnormal amounts of HbF. Blood transfusions may impact the HbA1c concentration in the patient sample. Estimated Average Glucose 148 mg/dL [facility] Comment:eAG = Estimated ave rage glucose which is %A1C expressed asaverage glucose, using the formula of the T5W-TbdqeeiLwcxqpq Glucose study (ADAG), Diabetes Care, Vol.31,#8,2007 01/01/2023 10:2 0 AM EDT 01/01/2023 10:20 AM EDT [facility] External Provider LAB BLO OD ORDERABLES Final Result Performing Organization Address [facility] de Phone Number [facility] [address] [place] [phone] * APTT (01/01/2023 10:20 AM EDT) Partial Thromboplastin Time 35.0 26.0 - 36.4 SEC [facility] 01/01/2023 10:2 0 AM EDT 01/01/2023 10:20 AM EDT [facility] External Provider LAB BLO OD ORDERABLES Final Result Performing Organization Address [facility] de Phone Number [facility] [address] [place] [phone] * Prothrombin Time-INR (01/01/2023 10:20 AM EDT) Prothrombin Time 12.9 10.0 - 13.1 SEC [facility] INTERNATIONAL NORM RATIO 1.1 0.9 - 1.1 [facility] Comment:INTERNATIONAL NORMAL IZED RATIO (INR) [...] AM EDT 01/01/2023 10:20 AM EDT us [facility] External Provider LAB BLO OD ORDERABLES Final Result [facility] [address] [place] [phone] * (ABNORMAL) CBC auto differential (01/01/2023 10:20 AM EDT) White Blood Count 11.3(H) 4.8 - 10.8 X10*3/uL [facility] Red Blood Count 5.09 4.20 - 5.50 X10*6/uL [facility] Hemoglobin 13.8 12.0 - 16.0 g/dl [facility] Hematocrit 44.1 37.0 - 47.0 % [facility] Mean Corpuscular Volume 86.6 80.0 - 98.0 fL [facility] Mean Corpuscular Hemoglobin 27.1 27.0 - 33.0 pg [facility] Mean Corpuscular HGB Conc 31.3 31.0 - 35.0 g/dl [facility] Red Cell Distribution Width 14.3 11.0 - 16.0 % [facility] Platelet Count 376 160 - 400 X10*3/uL [facility] Mean Platelet Volume 9.2(L) 9.4 - 12.3 fL [facility] Neutrophils Percent Auto 66.0 45 - 73 % [facility] Imm Gran Pct Auto 0.8(H) 0.0 - 0.4 % [facility] Lymphocytes Percent Auto 25.1 20 - 40 % [facility] Monocytes Percent Auto 5.5 2 - 11 % [facility] Eosinophils Percent Auto 2.0 0 - 4 % [facility] Basophils Percent Auto 0.6 0 - 2 % [facility] NRBC Pct Auto 0.0 0.0 - 0.2 /100WBC [facility] Neutrophils Absolute Auto 7.4 2.0 - 8.3 x10*3/uL [facility] Imm Gran Abs Auto 0.09(H) 0.00 - 0.03 X10*3/uL [facility] Lymphocytes Absolute Auto 2.8 1.2 - 4.9 X10*3/uL [facility] Monocytes Absolute Auto 0.6 0.1 - 1.2 X10*3/uL [facility] Eosinophils Absolute Auto 0.2 0.0 - 0.4 X10*3/uL [facility] Basophils Absolute Auto 0.1 0.0 - 0.2 X10*3/uL [facility] NRBC Abs Auto 0.000 0.0 - 0.012 X10*3/uL [facility] 01/01/2023 10:2 0 AM EDT 01/01/2023 10:20 AM EDT [facility] External Provider LAB BLO OD ORDERABLES Final Result Performing Organization Address [facility]/ZIP Co de Phone Number [facility] [address] [place] [phone] * (ABNORMAL) Glucose, Whole Blood (11/13/2022 1:31 PM EDT) Glucose, Whole Blood 196(H) 60 - 115 mg/dL [facility] Comment:METER #: [id number] 5Testing performed in the Endocrinology Department [address] , [address], [facility]. 11/13/2022 1:31 PM EDT 11/13/2022 1:34 PM EDT [facility] External Provider LAB BLO OD ORDERABLES Final Result Performing Organization Address [facility]/ZIP Co de Phone Number [facility] [address] [place] [phone] * Hemoglobin A1c (11/13/2022 1:14 PM EDT) Hemoglobin A1c 7.4 % [facility] Comment:Hemoglobin A1C Refer ence Range Adults: 4.8 - 6.0 % Non diabetic: < 6.0 % Goal: < 7.0 %Additional Action Suggested: > 8.0 %Note: Hemoglobin A1c results are invalid for patients with abnormal amounts of HbF. Blood transfusions may impact the HbA1c concentration in the patient sample. Estimated Average Glucose 166 mg/dL [facility] Comment:eAG = Estimated ave rage glucose which is %A1C expressed asaverage glucose, using the formula of the I7O-VqqvjzdRpqpurb Glucose study (ADAG), Diabetes Care, Vol.31,#8,2007 11/13/2022 1:14 PM EDT 11/13/2022 1:14 PM EDT us [facility] External Provider LAB BLO OD ORDERABLES Final Result [facility] [address] [place] [phone] documented in this encounter Visit Diagnoses Diagnosis Type 2 diabetes mellitus without complication, unspecified whether retirement insulin use ([facility])- Primary documented in this encounter Care Teams Rack Worker Relationship Specialty Start Date End Date Braulio Carbajal MD [address] [place] [phone] PCP - General Internal Medicine 12/14/19 04/28/24 documented as of this encounter
[2024-11-03 10:01] LABS: Alanine Aminotransferase 18 U/L (0-31); Albumin Level 3.6 g/dL (3.5-5.0); Alkaline Phosphatase 142 U/L (39-117); Anion Gap 9 (12-20); Aspartate Amino Transferase 17 U/L (5-31); Bilirubin Total 0.3 mg/dL (0.0-1.0); Blood Urea Nitrogen 15 mg/dL (9-16); Calcium 8.9 mg/dL (8.4-10.2); Carbon Dioxide 27 mmol/L (22-29); Chloride 106 mmol/L (96-108); Cholesterol 108 mg/dL (<200); Estimated Glomerular Filt Rate > 60; Glucose Random 199 mg/dL (60-115); HDL Cholesterol 38 mg/dL (>40); LDL Cholesterol Calculated 53 mg/dL (<100); Potassium 3.7 mmol/L (3.3-5.1); Sodium 138 mmol/L (135-145); Total Protein 6.9 g/dL (6.5-8.0); Triglycerides 89 mg/dL (<150)
[2024-11-03 10:23] LABS: Creatinine Urine 113.22 mg/dL; Microalbum/Creatinine Ratio Ur 23.8 ug/mg cr (<30)
== END 2024-11-03 07:42 | disposition home or self-care (01) ==
LOC: HO.10HDL 07:41
PROVIDERS: Visit Provider Internal Medicine Endocrinology, Diabetes & Metabolism
DX: E11.9 Type 2 diabetes mellitus without complications (principal); E11.319 Type 2 diabetes mellitus with unspecified diabetic retinopathy without macular edema
CPT/HCPCS: 36415; 80053; 80061; 82043; 82570; 82947; 83036

== ENCOUNTER 2024-11-03 07:48 | Outpatient (AMB) | payer OTHER, SELFPAY ==
--- OUTSIDE RECORDS SUMMARY | 2024-11-03 07:51 | XMS_ITS | Continuity of Care Document ---
Author Organization [facility] Address [address] [place] [address] Phone [phone] Social History Type Date Description Comments Sex Unknown Medical Devices Description No Information Available Encounters Description No Information Available Assessments Description No Information Available Plan of Treatment No Information Available Functional Status Description No Information Available Mental Status Description No Information Available Referrals Description No Information Available
--- NOTE | 2024-11-03 07:59 | MHC.OFFVIS ---
Vital Signs 11/03/24 08:02 Height 5 ft 9 in Weight 354 lb 0.998 oz BMI 52.3 BP 104/74 Blood Pressure Location Rt radial Position Sitting Pulse 94 Pulse Source Pulse Oximeter Pulse Oximetry (%) 98 Oxygen Delivery Method Room Air Intake Visit Reasons: follow up, Diabetes Mellitus Intake Note: Patient present today to follow up on Type 2 Diabetes Mellitus. Last Diabetic Eye exam: 11/02/24, [facility] Last Podiatry Visit: Does not see a Area Coordinator Random Glucose: 200 mg/dl HgA1C: 8.9% 11/03/2024 Skinning Machine Feeder Required: No Accompanied by: Self / Same As Patient Allergies Penicillins Allergy (Intermediate, Verified 11/03/24 08:04) Shortness of Breath pt states no food allergies Allergy (Unknown, Uncoded 11/03/24 08:04) Unknown Medication List - Last Reconciled 11/03/24 by Jean Esparza MD albuterol sulfate 90 mcg/actuation 2 puffs inhalation QID PRN atorvastatin 40 mg PO DAILY blood-glucose sensor (U2opia Mobileyle Alexei 3 Sensor device) USE DIRECTED AND CHANGE EVERY 14 DAYS bupropion HCl XL 300 mg PO DAILY cholecalciferol (vitamin D3) 125 mcg PO DAILY empagliflozin (Jardiance) 10 mg PO DAILY fluoxetine 20 mg PO DAILY gabapentin 300 mg PO TID insulin degludec (Tresiba FlexTouch U-200 insulin) 20 units (0.1 mL) subcut DAILY 30 days lisdexamfetamine (Vyvanse) 70 mg PO DAILY lisinopril 10 mg PO DAILY lorazepam 1 mg PO DAILY PRN melatonin 10 mg PO BEDTIME PRN minoxidil 2.5 mg PO DAILY thiamine HCl (vitamin B1) 100 mg PO DAILY tirzepatide (Mounjaro) 7.5 mg (0.5 mL) subcut QWEEK 28 days vitamin A palmitate 10,000 units PO DAILY HPI Comments Details: 49 YO F who is seen in consultation for T2DM . The patient last saw Nimo Faith NP on 04/20/24 Initially diagnosed with T2DM in 2003 . previously saw endo at [facility] up to 2 yrs ago Was initially started on treatment with metformin .Was tolerated it . Took Jardiance in past and tolerated Current regimen Mounjaro 7.5 mg Qwkly on 6 mos Tresiba 20 units . Jardiance 10 mg Alexei download shows she is using the sensor 35% of the time. Average glucose is 171 with G mi of 7.4% and variability 26.9%. 63% in target range with 31% hyperglycemia 6% very hyperglycemic and no hypoglycemia. Patent shows persistent hyperglycemia throughout the day No Hypoglycemia Family history of T2DM in mother, sister , aunts . Has eyes checked yearly, last eye exam yesterday , t has retinopathy gets injections . Has neuropathy, not sees podiatry. Denies nephropathy, on KRISTAL/ARB. Has HLD, on statin. Denies CAD. Had diabetes education at [facility] . Awaiting bariatric surgery here at [facility] Medical History Type 2 diabetes mellitus with retinopathy Asthma Insomnia Neuropathy Breast calcification, right Adenocarcinoma determined by biopsy of liver Diabetic retinopathy Anxiety and depression GERD (gastroesophageal reflux disease) SOLE on CPAP ADHD Hyperlipidemia HTN (hypertension) with goal to be determined Diabetes mellitus Morbid obesity Surgical History Hx of LASIK History of cholecystectomy Family History Mother Diabetes Heart problem Father Hypertension Maternal Grandmother Primary cancer of bone marrow Maternal Grandfather Prostate cancer Social History Are you a primary neurocritical care physician to a significant other at home: No Do you presently have visiting nurse or other home services: No Alcohol intake: never Patient Tobacco Use Status: Never used Tobacco Female Reproductive History Menstrual Age of Menarche: 13 Physical Exam Vital Signs: Last Vital Signs Pulse 94 11/03/24 08:02 BP 104/74 11/03/24 08:02 Pulse Ox 98 11/03/24 08:02 Oxygen Delivery Method Room Air 11/03/24 08:02 BMI result Body Mass Index 52.3 Absence of Cushingoid features. Absence of acromegalic features. Neck exam reveals nl size thyroid about 15 gms. No thyroid nodules palpable. No carotid bruits present. Lungs CTA. Heart S1 S2, Reg R/R. No M/R/ G. Skin exam reveals absence of vitiligo or acanthosis nigricans. Abdominal exam reveals Soft NT/ND with NA BS. No organomegaly present. Neck Other: . Extrem Other: Visual exam of foot performed. No ulcerations or open lesions. No onchomycosis, no callouses.Pulses 2 + distally Sensation intact to monofilament exam. Vibratory sensation sensed is decreased with 128 Hz tuning fork Results AMB Hemoglobin A1c AMB Hemoglobin A1c 8.9 % Last Edit by ANN Vinson on 11/03/24 08:25 Assessment & Plan Assessment & Plan (1) Diabetes mellitus: Code(s): E11.9 - Type 2 diabetes mellitus without complications Category: Medical Plan: This is a 49-year-old female with a history of type 2 diabetes being treated with Mounjaro, Jardiance and Tresiba will appears to be improved but not optimal glycemic control and known microvascular complications namely retinopathy Plan is To increase Mounjaro to 10 mg Qwkly. May need addition of prandial insulin oe we have more data from Alexei. I told the patient to wear the Alexei all the time. . I explained to her the correlation of poor glycemic control to development and progression complications. Will check lipid profile microalbumin to creatinine ratio when available. We will have her follow up with Nimo Vaughan NP in 2 weeks Medications: New lisinopril 10 mg PO DAILY 30 tabs 1RF tirzepatide (Mounjaro) 10 mg (0.5 mL) subcut QWEEK 2 mL 5RF Changed From gabapentin 300 mg PO TID To gabapentin 300 mg PO TID 30 days 90 caps 1RF Coding Level of Care Code Est Pt Level 4 (28222) Diagnoses Diabetes mellitus E11.9
[2024-11-03 08:02] VITALS: BP 104/74; PULSE 94; O2SAT 98; BMI 52.3
[2024-11-03 08:22] LABS: Glucose, Whole Blood 200 mg/dL (60-115)
== END 2024-11-03 08:25 | disposition home or self-care (01) ==
LOC: HO.ENCR 07:49
PROVIDERS: PCP Internal Medicine; Visit Provider Internal Medicine Endocrinology, Diabetes & Metabolism
DX: E11.319 Type 2 diabetes mellitus with unspecified diabetic retinopathy without macular edema (principal)
CPT/HCPCS: 99214

== ENCOUNTER 2024-11-10 08:13 | Outpatient (AMB) | payer OTHER, SELFPAY ==
--- NOTE | 2024-11-10 08:00 | MHC.WMTHER ---
Intake Intake Visit Reasons: VIDEO OP Therapy Allergies Penicillins Allergy (Intermediate, Verified 12/15/24 08:34) Shortness of Breath pt states no food allergies Allergy (Unknown, Uncoded 12/15/24 08:34) Unknown [facility] Medical History (Updated 11/17/24 @ 12:28 by IDALMIS Cortes) Type 2 diabetes mellitus with retinopathy Asthma Insomnia Neuropathy Breast calcification, right Adenocarcinoma determined by biopsy of liver Diabetic retinopathy Anxiety and depression GERD (gastroesophageal reflux disease) SOLE on CPAP ADHD Hyperlipidemia HTN (hypertension) with goal to be determined Diabetes mellitus Morbid obesity Surgical History Hx of LASIK History of cholecystectomy Family History Mother Diabetes Heart problem Father Hypertension Maternal Grandmother Primary cancer of bone marrow Maternal Grandfather Prostate cancer Social History Are you a primary child care development specialist to a significant other at home: No Do you presently have visiting nurse or other home services: No Alcohol intake: never Patient Tobacco Use Status: Never used Tobacco Female Reproductive History Menstrual Age of Menarche: 13 Behavioral Health Assessment Weight Management Therapy Therapy Notes Details Subjective: PT presents feeling upset about recent situations with and ongoing challenges with her health insurance accessing care due to limited in-network providers and eye issues requiring painful treatment. On the other hand she has been stressed due to financial reasons, and has realized that she procrastinate this task due to anxiety this triggers on her. Objective: PT presents for a f/up visit via Telehealth. . Explored emotional impact of relationship stress; supported use of assertive communication. Validated frustration with healthcare access; provided psychoeducation on systemic barriers. Introduced grounding and breathing techniques to manage anxiety. Identified avoidance patterns related to financial stress; initiated small task planning. Used cognitive restructuring to challenge unhelpful thoughts fueling procrastination. Supported care coordination by identifying next steps for navigating insurance and treatment access. Assessment/Response: Mental status: stressed, some frustration, mild functioning issues. But was alert, oriented X3. Risk reported/identified: None. Assessment & Plan Assessment & Plan (1) ADHD: Code(s): F90.9 - Attention-deficit hyperactivity disorder, unspecified type Qualifiers: Attention deficit-hyperactivity disorder type: combined inattentive-hyperactive Qualified Code(s): F90.2 - Attention-deficit hyperactivity disorder, combined type (2) Panic disorder: Code(s): F41.0 - Panic disorder [episodic paroxysmal anxiety] (3) Depression, unspecified: Code(s): F32.A - Depression, unspecified Plan Continue bi-weekly sessions. Next jase: 11/25/2024 - Telehealth Telehealth Telehealth Telehealth Platform: [employer] Location of provider rendering services: other Location of patient: address on file Patient Identification confirmed using: Name, : Yes Telehealth method: video Patient verbally consented to treatment: Yes Patient verbally consented to billing insurance company: Yes Patient informed of any privacy concerns related to visit: Yes Minutes spent on Phone/Video with Pt.: 60 Coding Level of Care Code Established Pt Tele Psytx >53 mins (19479) Patient Type Established Diagnoses Attention deficit hyperactivity disorder (ADHD), combined type F90.2 Attention deficit-hyperactivity disorder type: combined inattentive-hyperactive Panic disorder F41.0 Depression, unspecified F32.A Time Spent (min) 60
--- OUTSIDE RECORDS SUMMARY | 2024-11-10 08:25 | XMS_ITS | Encounter Summary ---
Author Organization [employer] Address [address] [facility] 7[address] [place] [address] Care Team Providers Care Referral And Information Aide Name Role Phone Unavailable Primary Care Provider Unavailabl e Reason for Visit * Reason Comments Med Refill Encounter Details Date Type Department Care Team ([facility] st Contact Info) Description 10/19/2024 Refill [facility] MED & PEDS [address] [place] [address] Braulio Carbajal MD [address] [place] [address] Social History Tobacco Use Types Packs/Day Years [...]
--- OUTSIDE RECORDS SUMMARY | 2024-11-10 08:25 | XMS_ITS | Clinical Summary ---
Author Organization [address] [facility] Address [address] [place] [address] Phone Care Team Providers Care Vp Treasurer Name Role Phone Braulio Carbajal Primary Care [...] 9:30 AM EST Nutrition Bariatric Surgery - [address] [place] [address] Class 3 severe obesity with serious comorbidity and body mass index (BMI) of 50.0 to 59.9 in adult, unspecified obesity type ([facility]) (Primary Dx) from Last 3 Months Immunizations Name Administration Dates Next Due Tdap Tetanus diptheria acell ular pertussis (Boostrix; Adacel) 7yo and older 12/11/2012 Surgical History Surgery Date Site/Laterality Comments CHOLECYSTECTOMY 1999 PROCEDURE: HISTORICAL CHOLECYSTECTOMY Medical History Medical History Date Comments HTN (hypertension) 2011 DX:HTN (hyper tension) DM (diabetes mellitus) ([facility]) 2006 DX:DM (diabetes mellitus) ([facility]) IBS (irritable bowel syndrome) 1993 D X:IBS [...] age to complete this topic Meningococcal B Vaccine Aged Out No l onger eligible based on patient's age to complete [...] LAB CHEMISTRY METHOD 07/20/2024 11:24 AM EST [facility] Triglycerides 89 0 - 150 mg/dL LAB CHEMISTRY METHOD 07/20/2024 11:24 AM EST [facility] HDL 53 >=40 mg/dL LAB CHEMISTRY METHOD 07/20/2024 11:24 AM EST [facility] LDL Calculated 108(H) 0 - 100 mg/dL LAB CHEMISTRY METHOD 07/20/2024 11:24 AM EST [facility] VLDL Cholesterol Francisco J [...] ORDERABLES Fi nal Result Performing Organization Address [facility] Co de Phone Number [facility] [address] [place] [address], [place] [phone] * (ABNORMAL) Hemoglobin A1c (07/20/2024 8:33 AM EST) Hemoglobin A1C 7.9(H) <6.5 % LAB CHEMISTRY METHOD 07/20/2024 2:41 PM EST [facility] Mean Bld Glu Estim. 180 mg/dL LAB CHEMISTRY METHOD 07/20/2024 2:41 PM [facility] Blood Venous blood specimen / Unknown Venipuncture / Unknown 07/20/2024 8:33 AM EST 07/20/2024 8:33 AM EST us Gosia Stoner MD LAB BLOOD ORDERABLES Fi nal Result Performing Organization Address [facility]/ZIP Co de Phone Number [facility] [address] [place] [address], [place] [phone] * (ABNORMAL) Comprehensive metabolic panel (07/20/2024 8:33 [...] LAB CHEMISTRY METHOD 07/20/2024 11:24 AM EST [facility] Total Protein 7.7 6.0 - 8.0 g/dL LAB CHEMISTRY METHOD 07/20/2024 11:24 AM EST [facility] Albumin 3.6 3.2 - 5.0 g/dL LAB CHEMISTRY METHOD 07/20/2024 11:24 AM [facility] Total Bilirubin 0.4 0.0 - 1.4 mg/dL LAB CHEMISTRY METHOD 07/20/2024 11:24 AM EST [facility] Blood Venous blood specimen / Unknown Venipuncture / Unknown 07/20/2024 8:33 AM EST 07/20/2024 8:33 AM EST Gosia Stoner MD LAB BLOOD ORDERABLES Fi nal Result [facility] [address] [place] [address], * Urine Albumin Creatinine Ratio (02/26/2014) Urine Albumin Creatinine Ratio Abstracted Historical Provider HEALTH MAINTENANCE Final Result from Last 3 Months or Most Recently Relevant to Health Maintenance Insurance [employer] Care Teams Vp Treasurer Relationship Specialty Start Date End Date Braulio Carbajal [address] [place], [place] PCP - General Internal Medicine 03/20/22
--- OUTSIDE RECORDS SUMMARY | 2024-11-10 08:25 | XMS_ITS | Encounter Summary ---
Author Organization [employer] Address [address] [facility] 7[address] [place] [address] Care Team Providers Care Refinery Operator Vapor Recovery Unit Name Role Phone Unavailable Primary Care Provider Unavailabl e Reason for Visit * Reason Comments Med Refill Encounter Details Date Type Department Care Team ([facility] st Contact Info) Description 10/13/2024 Refill [facility] MED & PEDS [address] [place] [address] Braulio Carbajal MD [address] [place] [address] Primary hypertension Social History Tobacco Use Types [...] the past 12 months, has t he [employer], gas, oil or water company threatened to [...]
--- OUTSIDE RECORDS SUMMARY | 2024-11-10 08:26 | XMS_ITS | Clinical Summary ---
Author Organization [facility] Address [address] [place] [address] 7t [place] [address] Care Team Providers Care Ballistics Laboratory Gunsmith Name Role Phone Unavailable Primary Care Provider [...] 2 diabetes mellitus without complication, unspecified whether rodent exterminator insulin use ([facility]) Inject 1.5 mg under the skin 1 [...] Encounters Date Type Department Care Team Description 11/03/2024 Orders Only GENERIC EXTERNAL DATA DEPARTMENT Provider, Generic External Data 11/02/2024 Refill [facility] [address] [place] [address] Braulio Carbajal MD 10/19/2024 Refill [facility] [address] [place] [address] Braulio Carbajal MD 10/13/2024 Refill [facility] [address] [place] [address] Braulio Carbajal MD Primary hypertension from Last [...] Procedure Name Priority Date/Time Associated Diagnosis Comments GLUCOSE, WHOLE BLOOD Routine 11/03/2024 8:13 AM EDT BI MAMMOGRAM DIAGNOSTIC TOMOSYNTHESIS BILATERAL Routine 05/25/2024 1:00 PM EDT LIPID PANEL, STANDARD Routine 01/01/2023 10:20 AM EDT Type 2 diabetes mellitus without complication, unspecified whether longterm insulin use (CMS/HCC) ZZZ HISTORICAL HEPATITIS C AB W/REFL TO HCV RNA, QN, PCR Routine 01/24/2022 8:19 AM EDT HIV 1/2 ANTIGEN/ANTIBODY, FOURTH GENERATION W/RFL Routine 01/24/2022 8:19 AM EDT from Last 3 Months or Most Recently Relevant to Health Maintenance Results * (ABNORMAL) Glucose, Whole Blood (11/03/2024 8:13 AM EDT) Glucose, Whole Blood 200(H) 60 - 115 mg/dL [facility] Comment:METER #: [id number] 5Testing performed in the Endocrinology Department [address] , [address], [place]. 11/03/2024 8:13 AM EDT 11/03/2024 8:21 AM EDT us Generic External Data Provider LAB BLOOD ORDERAB LES Final Result Performing Organization Address City/State/[facility] Co de Phone Number [facility] [address] [place] [address] [phone] * BI Mammogram Diagnostic Tomosynthesis Bilateral (05/25/2024 1:00 PM EDT) Anatomical Region Laterality Modality Breast Bilateral Mammography 05/25/2024 1:00 PM EDT Narrative 05/25/2024 4:12 PM EDT ? [facility] [place] ? [address] [facility] ?[place] [address] ? Mammography Report ? Signed ? Patient: López,Glorymar ?MR#: [id number] ?? [id number] ? : 1975 ?Acct:[id number] ? Age/Sex: 48 / F ?ADM Date: 10/21/24 ? Loc: HO.MAMMO ? Attending Dr: Ryan Prescott MD ? Ordering Physician: Ryan Prescott MD ?Results: 2Ben ?? ign Findings ? Date of Service: 05/25/24 ?Follow Up: 1 Year From Orig ?? inal Mammogram ? Procedure(s): MM tomosynthesis diagnostic BI ?? Accession Number(s): [id number] ? cc: Braulio Carbajal MD; Ryan Prescott [...] DD/ 1300 ? TD/TT: 05/25/24 1350 ? Probation Manager: ? Procedure Note Dave Marc - 05/25/2024 [facility] [address] [place] [address] Mammography Report Signed Patient: Yana López#: [id number] : 1975Acct:[id number] Age/Sex: 48 / FADM Date: 05/25/24 Loc: [facility] Attending Dr: Ryan Prescott MD Ordering Physician: Ryan Prescott MDResults: 2Ben ign Findings Date of Service: 05/25/24Follow Up: 1 Year From Orig inal Mammogram Procedure(s): MM tomosynthesis diagnostic BI Accession Number(s): [id number] cc: Braulio Carbajal MD; Ryan Prescott MD [...] 05/25/24 1609 DD/ 1300 TD/TT: 05/25/24 1350 Probation Manager: [facility] External Provider IMG BI PROCEDURES Edited Result - Final * Lipid Panel, Standard (01/01/2023 10:20 AM EDT) Triglycerides 73 mg/dL [facility] Comment:Desirable Triglyceri de: less than 150 mg/dLBorderline High Triglyceride 150-199 mg/dLHigh Triglyceride: 200-499 mg/dLVery High Triglyceride: greater than or equal to 5OO mg/dL Cholesterol 101 mg/dL [facility] Comment:Desirable Cholestero l: less than 200 mg/dLBorderline High Cholesterol: 200-239 mg/dLHigh Cholesterol: greater than 239 mg/dL LDL Cholesterol Calculated 53 mg/dl [facility] Comment:Desirable LDL: less than 100 mg/dLNear Optimal/Above Optimal LDL: 110- 129 mg/dLBorderline High LDL: 130-159 mg/dLHigh LDL: 160-189 mg/dLVery High LDL: greater than or equal to 190 mg/dL HDL Cholesterol 34 mg/dL [facility] Comment:Desirable HDL: great er than 40 mg/dL Note: This HDL assay may give artificially low results in patients with liver disease. 01/01/2023 10:2 0 AM EDT 01/01/2023 10:20 AM EDT [facility] External Provider LAB BLO OD ORDERABLES Final Result [facility] [address] [place] [address] [phone] * HEPATITIS C AB W/REFL TO HCV RNA, QN, PCR (01/24/2022 8:19 AM EDT) HEPATITIS C ANTIBODY NON-REACT S[place]NC[place]Z NON-REACT [facility] [facility] INDEX 0.02 <1.00 [facility] Comment: ?? HCV antibody was non-reactive. There is no laboratory ?? evidence of HCV infection. ?? In most cases, no further action is required. However, if recent HCV exposure is suspected, a test for HCV RNA (test code 36661) is suggested. ?? For additional information please refer to [email or web address]/RJJ44n1 (This link is being provided for informational/ educational purposes only.) ?? 01/24/2022 8:19 AM EDT Braulio Campbell MD HISTORICAL/NON ORD ERABLE LABS Final Result Performing Organization Address [facility] Co de Phone Number [facility] [address] * HIV 1/2 ANTIGEN/ANTIBODY,FOURTH GENERATION W/RFL (01/24/2022 8:19 AM EDT) HIV-1/2 ANTIGEN AND ANTIBODIES, 4TH GENERATION W/ REFLEX NON-REACT S[place]NC[place]Z NON-REACT S[place]NC[place]Z [facility] Comment: HIV-1 antigen and HIV-1/HIV-2 [...] ? For additional information please refer to [email or web address]/TCP983 (This link is being provided for informational/ educational purposes only.) ? The performance of this assay has not been clinically validated in patients less than 2 years old. ?? 01/24/2022 8:19 AM EDT Braulio Campbell MD LAB BLOOD ORDERABL ES Final Result Performing Organization Address [facility]/ZIP Co de Phone Number [facility] [address] from Last 3 Months or Most Recently Relevant to Health Maintenance Insurance [employer] MD [place]AY[place] [id number]
--- OUTSIDE RECORDS SUMMARY | 2024-11-10 08:26 | XMS_ITS | Encounter Summary ---
Author Organization [employer] [facility] Address [address] [place] [address] [address], [place] [address] Care Team Providers Care Railways Assistant Name Role Phone Braulio Carbajal MD Primary Care Prov ider Reason for Visit * Reason Comments Med Refill Encounter Details Date Type Department Care Team (Late st Contact Info) Description 10/29/2022 Refill [facility] [address] [place], [place] [phone] Braulio Carbajal MD [address] [place] [address] Social History Tobacco Use Types Packs/Day Years [...] on filedocumented in this encounter Care Teams Railways Assistant Relationship Specialty Start Date End Date Braulio Carbajal MD [address] [place] [address] PCP - General Internal Medicine 12/14/19 04/28/24 documented as of this encounter
--- OUTSIDE RECORDS SUMMARY | 2024-11-10 08:26 | XMS_ITS | Data Portability ---
Author Organization [place] - [facility],, ADRIANA LARA MD Address [address] [address] Assessment No assessment recorded. Plan of Treatment Reminders Order Date Submit Date Provider Last Modified By Organization Details Last Modified Time Details Appointments None recorded. Lab pap test, thinprep, cervical 2021 022 [email or web address] [facility], Cytopathology Service, [address] [place] [address], [address], 2 07:36:24 fecal occult blood, stool 2021 022 [email or web address] In-Office Order, Internal Use Only DO Not Attach Compendium DO Not Attach Compendium, Do Not Delete/merge, [id number] 2 11:34:07 pap test, thinprep, cervical 2020 021 [email or web address] [facility], Cytopathology Service, [address] [place] [address], [address], 1 07:14:16 fecal occult blood, stool 2020 021 [email or web address] 1 In-Office Order, Internal Use Only DO Not Attach Compendium DO Not Attach Compendium, Do Not Delete/merge, [id number] 1 13:58:54 pap test, thinprep, cervical 2019 020 [email or web address] [facility], Cytopathology Service, [address] [place] [address], [address], 0 08:59:10 fecal occult blood, stool 2019 020 [email or web address] In-Office Order, Internal Use Only DO Not Attach Compendium DO Not Attach Compendium, Do Not Delete/merge, [id number] 0 08:59:10 pap test, thinprep, cervical 2018 019 [facility], Cytopathology Service, [address] [place] [address], [address], 9 04:32:23 fecal occult blood, stool 2018 019 [email or web address] In-Office Order, Internal Use Only DO Not Attach Compendium DO Not Attach Compendium, Do Not Delete/merge, [id number] 9 07:31:20 pap test, thinprep, cervical 2014 015 [facility], Cytopathology Service, [address] [place] [address], [address], 5 12:26:29 chlamydia sp, culture, unspecifi ed specimen 2014 015 [facility], Cytopathology Service, [address] [place] [address], [address], 5 08:24:20 NG DNA, PCR, genital 2014 015 [facility] Pathology [facility], Cytopathology Service, [address] [place] [address], [address], 5 08:24:20 test, urine 2014 015 [email or web address] 1 In-Office Order, Internal Use Only DO Not Attach Compendium DO Not Attach Compendium, Do Not Delete/merge, [id number] 5 11:43:08 Referral None recorded. Procedures None recorded. Surgeries None recorded. Imaging MAMMO, screening , digital, bilateral 2021 022 [facility] Orders, [address], [address], [place], [address], 4 07:16:34 MAMMO, screening , digital, bilateral 2020 021 [facility] Orders, [address], [address], [place], [address], 2 07:36:18 MAMMO, screening , digital, bilateral 2019 020 [facility] (Mammography), [address] [facility], [place], [address], 1 07:41:40 MAMMO, screening , digital, bilateral 2018 019 [facility] Orders, [address], [place], [address], 0 07:25:26 Medication Orders None recorded. Patient TargetsNo targets recorded. Patient Instructions Encounter Date Encounter Id Patient Instructions Last Modified By Organization Details Last Modified Time 12/07/2014 [id number] She is here for annual exam. Her [...] irregular every 4 to 6 weeks, no i4bexga no for 6 weeks, check u preg, [...] in detail. Not available 12/07/2014 11:43:09 09/01/2018 [id number] She is here for annual exam. She has not been here since 2014. She was seeing [facility] infertility but they gave up on theat and put in a Mirena 2 years ago. No menses. Her diabetes has been Bad. In 07/2016 she started a process to do bariatric surgery at [facility]. She went through all the counseling [...] latest A1C was 10, in 06/18, the [facility] infertility referred her to endocrinology in 06/18, [...] well. Advised to follow up with her bar attendant about her diabetes. She is going back [...] questions answered. Not available 09/01/2018 10:07:54 09/08/2019 [id number] She is here for annual exam, her weight is stable at 367 pounds. Her was in the ICU for 4 weeks due to sepsis, he is better now though. She had a Mirena placed 3 years ago, no menses. note form 2019: She is here for annual exam. She has not been here since 2014. She was seeing [facility] infertility but they gave up on theat and put in a Mirena 2 years ago. No menses. Her diabetes has been Bad. In 07/2016 she started a process to do bariatric surgery at [facility]. She went through all the counseling [...] get the date of IUD insertion at [facility] for us so that we know when [...] detail. rebecca Not available 09/08/2019 15:23:23 04/04/2021 [id number] learning about healthy weight rebecca Not available 04/04/2021 13:58:54 She is here for annual exam, weight is 391 pounds, BMI is 58.6. She had a Mirena inserted 08/2016. No menses. Her mother earlier this year due to natural causes, in [place], she is still grieving. She and her are , she wanted to go to couples counseling but he would only go in Irish and they could not find a tlingit & haida Irish speaking counselor. Note from 2019: She is [...] a process to do bariatric surgery at [facility]. She went through all the counseling ,etc, but things fell through the cracks. She is considering going back again. she had weighted more than 400 pounds last year, she lost some weight this past year with diet and exercise but still weighs 366 pounds today. She appears to be doing well. She and I discussed having her go back to [facility] to get back into their weight [...] breast. [email or web address] Not available 04/04/2021 14:00:20 04/17/2022 [id number] learning about healthy weight Not available 04/17/2022 [...] this year due to natural causes, in [place], she is still grieving. She and her are , she wanted to go to couples counseling but he would only go in Irish and they could not find a tlingit & haida Irish speaking counselor. She appears to be doing [...] DO Not Attach Compendium, Do Not Delete/merge, [id number] 04/04/2021 13:36:07 02/04/09/08/2019 fecal occul t blood , stool Occult Blood negati ve Not Available In-Office Order Internal Use Only DO Not Attach Compendium DO Not Attach Compendium, Do Not Delete/merge, [id number] 09/08/2019 15:00:26 09/01/19 19 09/01/2018 fecal occul t blood , stool Occult Blood negati ve Not Available In-Office Order Internal Use Only DO Not Attach Compendium DO Not Attach Compendium, Do Not Delete/merge, [id number] 09/01/2018 09:30:38 12/08/19 15 12/07/2014 pregn marshal test, urine HCG negati ve Not Available In-Office Order Internal Use Only DO Not Attach Compendium DO Not Attach Compendium, Do Not Delete/merge, [id number] 12/07/2014 10:52:47 12/08/19 15 12/07/2014 gener al5ca se [id number] RESUL TS OF GEN-P ROBE APTIM A COMBO 2 ASSAY Chlam ydia: NEGAT SÁNCHEZ N. gonor rhoea e: NEGAT SÁNCHEZ GENANIRANJAN RIOS M.D., Patho logis t (Case elect martin sy chuy d 12 09 2014) CLIN[facility] INFOR MATIO N: LPS NEG SOURC E: ThinP rep Pap for CT/GC Gross Descr iptio n: ThinP rep Vial Recei joanne. Physi JAYSON Russ N /#[phone]/2 [phone] Cytop athol ogy servi carlos provi ded by [facility] at the above addre ss. Not Available [facility], Cytopathology Service [address] [facility], [place], [address], 12/09/2014 15:06:31 12/08/19 15 12/07/2014 pap, LB [id number] ThinP rep Pap, Image d: NEGAT SÁNCHEZ [...] at the above addre ss. Not Available [facility], Cytopathology Service [address] [place] [address], [address], 12/14/2014 12:26:29 09/01/19 19 09/01/2018 pap, LB [id number] ThinP rep Pap, Image d: NEGAT SÁNCHEZ [...] . LPS 5 NEG, Z12.4 Not Available [facility], Cytopathology Service [address] [place] [address], [address], 09/02/2018 17:26:28 09/08/19 20 09/08/2019 pap, LB [id number] ThinP rep Pap, Image d: NEGAT SÁNCHEZ [...] . LPS NEG [Z12. 4] Not Available [facility], Cytopathology Service [address] [place], [address], 09/10/2019 13:06:44 04/04/20 21 04/04/2021 PAP1C ASE [id number] ThinP rep Pap, Image d: NEGAT SÁNCHEZ [...] LPS 0 NEG [Z12. 4] Not Available [facility], Cytopathology Service [address] [place] [address], [address], 04/12/2021 13:55:52 04/17/2004/17/2022 PAP1C ASE [id number] ThinP rep Pap, Image d: NEGAT SÁNCHEZ [...] IUD, LPS neg. [z01. 419] Not Available [facility], Cytopathology Service [address] [place] [address], [address], 04/23/2022 08:11:00 04/17/2004/17/2022 fecal occul t blood , stool Occult Blood negati ve Not Available In-Office Order Internal Use Only DO Not Attach Compendium DO Not Attach Compendium, Do Not Delete/merge, [id number] 04/17/2022 10:29:09 Result Notes None recorded. Problems Name Problem SNOMED Code Status Onset Date Resolution Date Notes Provider Name and Address Organization Details Recorded Time Candidal vulvovaginiti s 45908701 Active Not Available [facility] 3 03:01:06 Irritable bowel syndrome 11009558 Active Not Available [facility] 3 03:01:06 Obesity 087823134 Active Not Available [facility] 3 03:01:06 Oligoovulator y dysfunctional uterine bleeding 642991063 Active Adriana Lara MD [address], [place], [address] , [place] - [facility], 5 11:43:08 Uncontrolled type 2 diabetes mellitus 510287816 Active Not Available [facility] 3 03:01:06 Primary female infertility 9685278 Active Not Available [facility] 3 03:01:06 Pruritus of vulva 87851376 Active Not Available [facility] 3 03:01:06 Pain in pelvis 08821424 Active Adriana Lara MD [address], [place], [address] , [place] - [facility], 4 15:07:42 Glycosuria 33330840 Active Adriana Lara MD [address], [place], [address] , [place] - [facility], 4 15:07:42 Problem Notes None recorded. Procedures Surgical History Date Name Laterality Status Provider Name and Address Organization Details Recorded Time 04/05/20 20 Most Recent Mammogram completed Yashira Alonso [place] - [facility], 04/17/2022 10:36:13 08/05/19 Cholecystectomy completed Taryn Beasley [place] - [facility], 11/10/2012 13:22:27 Imaging Results None recorded. Procedure Notes None recorded. Medical Equipment None Reported. Allergies Allergen ID Allergen Name Allergen Category Reaction Reaction Severity Criticality Documentation Date Start Date Code Code System Note Provider Name and Address Organization Details Recorded Time 08052 [facility] environfl nt,medica tion rash Not available Not available 09/08/2019 89667 RxNorm Yashira Celeste [place] - [place] in [facility], 0 14:53:01 7561 Product containin g penicilli n (product) medicatio n rash Not available Not available 11/10/2012 34809 8001 SNOMED Taryn Beasley [place] - [place] in [facility], 3 13:11:08 Medications Name [...] completed Not Available Not Available Not Available freestyle [...] Available Not Available Humulin R U-500 (Concentra stewrat) Insulin 500 unit/mL subcutaneo us soln INJECT [...] henidate ER 40 mg capsule,ex tended release vjlewsaq47 -50 TAKE 1 CAPSULE BY MOUTH EVERY [...] Available Not Available Not Available Afluria Quad 1975-9660 (PF) 60 mcg (15 mcg x 4)/0.5 mL IM syringe active Not Available Not Available N ot Available FreeStyle Alexei 14 Day [place] FOR TESTING GLUCOSE LEVELS active Not Available [...] 9 175.26 cm 95 /min 54.2 kg/m2 532268. 68 g 122 mm[Hg] 65 mm[Hg] Taryn Beasley [place] - [place] in [facility], 9 09:12:36 Date Recorded Body weight Body mass index (BMI) Body height Heart rate Systolic blood pressure Diastolic blood pressure Provider Name and Address Organization Details Last Updated DateTime 0 206674. 12 g 55 kg/m2 173.99 cm 110 /min 132 mm[Hg] 77 mm[Hg] Yashira Orozco in [facility], 0 14:53:44 Date Recorded Body height Body temperature Body mass index (BMI) Body weight Heart rate Systolic blood pressure Diastolic blood pressure Provider Name and Address Organization Details Last Updated DateTime 1 173.99 cm 97.2 [degF] 58.6 kg/m2 914188. 34 g 104 /min 141 mm[Hg] 75 mm[Hg] Yashira Orozco in [facility], 1 13:34:29 Date Recorded Body weight Body mass index (BMI) Body height Body temperature Heart rate Systolic blood pressure Diastolic blood pressure Provider Name and Address Organization Details Last Updated DateTime 2 562821. 19 g 54.3 kg/m2 172.72 cm 98.1 [degF] 93 /min 142 mm[Hg] 79 mm[Hg] Yashira Alonso [place] - [facility], 2 10:33:37 Date Recorded Body weight Heart rate Body mass index (BMI) Body height Systolic blood pressure Diastolic blood pressure Provider Name and Address Organization Details Last Updated DateTime 5 846936. 1769 g 103 /min 54.6 kg/m2 175.26 cm 119 mm[Hg] 71 mm[Hg] Yashira Alonso [place] - [place] in [facility], 5 10:17:20 Social History Question Answer Notes LastModified by Organizat ion Details LastModified Time Tobacco Smoking Status Never Smoker Not Available [employer] 06/07/2020 03:19:40 What Is Your Level Of Alcohol Consumption? None [id number] Information not available 06/07/2020 What Is Your Level Of Caffeine Consumption? Occasional [id number] Information not available 06/07/2020 In The 14 [...] Type Of Diet Are You Following? REGULAR [id number] Information not available 06/07/2020 Which Illicit Or Recreational Drugs Have You Used? None [id number] Information not available 06/07/2020 Do You Reside In Or Have You Traveled To An Area Where Ebola Virus Transmission Is Active? No [id number] Information not available 06/07/2020 Do You Or Have You Ever Used E-cigarettes Or Vape? Never Used Electronic Cigarettes [id number] Information not available 06/07/2020 Education Post Graduate Information not available 11/10/2012 What Is The Highest Grade Or Level Of School You Have Completed Or The Highest Degree You Have Received? [id number] Information not available 04/04/2021 Who Is Your Employer? [employer] 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 Yes [id number] Information not available 06/07/2020 Do You Or Have You Ever Used Smokeless Tobacco? Never Used Smokeless Tobacco [id number] Information not available 06/07/2020 How Much Tobacco Do You Smoke? No [id number] Information not available 06/07/2020 General Stress Level Medium Information not available 09/08/2019 Do You Feel Stressed (tense, Restless, Nervous, Or Anxious, Or Unable To Sleep At Night)? [id number] Information not available 04/04/2021 Do You Use Any Illicit Or Recreational Drugs? No Information not available 04/04/2021 Have You Recently (within The Last 12 Weeks, Or During A Current ) Traveled To Or Lived In A Zika-affected Area? No [employer] Information not available 09/01/2018 Do You Or Have You Ever Used Any Other Forms Of Tobacco Or Nicotine? No Information not available 04/04/2021 Sex: Female Functional Status Question Answer Note LastModified by Organization D etails LastModified Time What is your exercise level? None [id number] Information not available 06/07/2020 Mental Status None [...] Problems N Kidney or Bladder Problems N Depression Y GI Problems Y Lung Disease N Defects or Inherited Disease N Anemia N [...] MD [address], [place], [address], [place] Orozco in [facility], 11/10/2012 13:43:51 Tdap 3 completed [place] Sexton in [facility], 12/11/2012 15:22:23 Influenza, split virus, quadrivalent, preservative 9 completed [place] Sexton in [facility], 09/01/2018 09:26:24 COVID-19, mRNA, LNP-S, PF, 100 mcg/0.5mL dose or 50 mcg/0.25mL dose 1 completed [place] Ramos in [facility], 04/04/2021 13:38:30 Influenza, split virus, quadrivalent, preservative 1 completed [place] Ramos in [facility], 04/17/2022 10:34:55 Past Encounters Encounter ID Performer Location Encounter Start Date Encounter Closed Date Diagnosis/Indication Diagnosis SNOMED-CT Code Diagnosis ICD10 Code Diagnosis Note [id number] Yashira LARA MD [address] [place] [address] 11/10/2012 12:51:19 11/11/2012 08:37:47 [id number] MD ADRIANA Dickson MD [address] [place] [address] 12/11/2012 15:08:24 12/12/2012 16:10:03 [id number] Taryn LARA MD [address] [place] [address] 08/21/2013 13:33:26 08/21/2013 15:51:36 Pain in pelvis 15923256 Acute lowe r urinary tract infection 980258661 Glycosuria 00728402 [id number] Taryn Beasley ADRIANA LARA MD [address] [place] [address],[place] [address] 11/13/2013 09:28:08 11/13/2013 13:10:39 Specialized medical examination 74457995 [id number] ADRIANA LARA MD [address] [place] [address],[place] [address] 12/07/2014 10:02:59 12/07/2014 13:34:46 Specialized medical examination 01576274 Venereal d isease screening 020064973 Oligoovula tory dysfunctional uterine bleeding 513927901 [id number] MD ADRIANA Dickson MD [address] [place] [address],[place] [address] 09/01/2018 09:04:26 09/01/2018 12:06:59 Specialized medical examination 52527526 Z01.419 Screening for malignant neoplasm of rectum 801273244 Z12.12 Screening mammography 24 181529 Z12.31 [id number] MD ADRIANA Dickson MD [address] [place] [address],[place] [address] 09/08/2019 14:46:50 09/08/2019 15:34:18 Specialized medical examination 84743321 Z01.419 Screening for malignant neoplasm of rectum 463640119 Z12.12 Screening mammography 24 368908 Z12.31 [id number] MD ADRIANA Dickson MD [address] [place] [address],[place] [address] 04/04/2021 13:29:45 04/04/2021 14:48:20 Specialized medical examination 78078711 Z01.419 Screening for malignant neoplasm of rectum 506565554 Z12.12 Screening mammography 24 080238 Z12.31 [id number] MD ADRIANA Dickson MD [address] [place] [address],[place] [address] 04/17/2022 10:28:03 04/17/2022 11:34:15 Specialized medical examination 85460403 Z01.419 Screening for malignant neoplasm of rectum 309914319 Z12.12 Screening mammography 24 694233 Z12.31 Health Concerns Section Related Observation LastModified by Organization Detai ls LastModified Time None Recorded Concern Status LastModified by Organization Details LastModified Time None Recorded Advance Directives Directive None Recorded Payers Encounter Date Sequence Insurance Name Policy Number Policy Fountain Covered Member ID Fountain Member ID Guarantor Name 12/07/2014 1 [facility] [id number] Glorymar López [id number] Glorymar López Colon 09/01/2018 1 [facility] [id number] Glorymar López [id number] Glorymar López Colon 09/08/2019 1 [facility] [id number] Glorymar López [id number] Glorymar López Colon 04/04/2021 1 [facility] [id number] Glorymar López [id number] Glorymar López Colon 04/17/2022 1 [facility] [id number] Glorymar López [id number] Glorymar López Colon Notes Date Note Type Note Provider Name and Address Organization Details Recorded Time 09/01/2018 text/html She is here for annual exam. She has not been here since 2014. She was seeing [facility] infertility but they gave up on theat and put in a Mirena 2 years ago. No menses. Her diabetes has been Bad. In 07/2016 she started a process to do bariatric surgery at [facility]. She went through all the counseling [...] latest A1C was 10, in 06/18, the [facility] infertility referred her to endocrinology in 06/18, she was given instructions for rescue insulin doses when her sugars are high, she is doing that now, she had an A1C drawn on 11/25/14 but has not received the results yet. Adriana Lara MD [address], [place], [address], [place] - [facility], 09/01/2018 10:08:27 09/08/2019 text/html She is [...] a process to do bariatric surgery at [facility]. She went through all the counseling ,etc, but things fell through the cracks. She is considering going back again. she had weighted more than 400 pounds last year, she lost some weight this past year with diet and exercise but still weighs 366 pounds today. Adriana Lara MD [address], [place], [address], [place] - [facility], 09/08/2019 15:23:49 04/04/2021 text/html She is here for annual exam, weight is 391 pounds, BMI is 58.6. She had a Mirena inserted 08/2016. No menses. Her mother earlier this year due to natural causes, in [place], she is still grieving. She and her are , she wanted to go to couples counseling but he would only go in Irish and they could not find a tlingit & haida Irish speaking counselor. Note from 2020: She is [...] a process to do bariatric surgery at [facility]. She went through all the counseling ,etc, but things fell through the cracks. She is considering going back again. she had weighted more than 400 pounds last year, she lost some weight this past year with diet and exercise but still weighs 366 pounds today. Adriana Lara MD [address], [place], [address], [place] - [facility], 04/04/2021 14:00:40 04/17/2022 text/html Her weight [...] this year due to natural causes, in [place], she is still grieving.She and her are , she wanted to go to couples counseling but he would only go in Irish and they could not find a tlingit & haida Irish speaking counselor. Adriana Lara MD [address], [place], [address], [place] - [facility], 04/17/2022 11:00:04 OBGyn Episode No OBEpisode recorded.
--- OUTSIDE RECORDS SUMMARY | 2024-11-10 08:26 | XMS_ITS | Encounter Summary ---
Author Organization [employer] Address [address] [place] [address] Care Team Providers Care Director Pharmaceutical Name Role Phone Unavailable Primary Care Provider Unavailabl e Reason for Visit * Reason Comments Med Refill Encounter Details Date Type Department Care Team ([facility] st Contact Info) Description 11/02/2024 Refill [facility] [address] [place] [address] Braulio Carbajal MD [address] [place] [address] Social History Tobacco Use Types Packs/Day Years [...]
--- OUTSIDE RECORDS SUMMARY | 2024-11-10 08:26 | XMS_ITS | Clinical Summary ---
Author Organization [facility] Facility Address [address] [place] [id number] Care Team Providers Care Glass Grinder Name Role Phone Braulio Lopez Primary Care Provider [phone] Allergies Active Allergy Reactions Criticality Noted Date [...] age to complete this topic Care Teams Glass Grinder Relationship Specialty Start Date End Date Braulio Lopez PCP - General Internal Medicine 02/01/22
--- OUTSIDE RECORDS SUMMARY | 2024-11-10 08:26 | XMS_ITS | Encounter Summary ---
Author Organization [employer] Address [address] [facility] [address] [place] [address] Care Team Providers Care Personal Loan Specialist Name Role Phone Braulio Carbajal MD Primary Care Prov ider Encounter Details Date Type Department Care Team (Late st Contact Info) Description 08/17/2022 Orders Only [facility] [address] [place] [address] Braulio Carbajal MD [address] [place] [address] Type 2 diabetes mellitus without complication, unspecified whether salvage determiner insulin use ([facility]) (Primary Dx) Social History Tobacco [...] 2 diabetes mellitus without complication, unspecified whether salvage determiner insulin use (CMS/HCC) HEMATOXYLIN AND EOSIN STAIN Routine 01/09/2023 8:38 AM EDT Type 2 diabetes mellitus without complication, unspecified whether senior living insulin use (CMS/HCC) COVID-19 ID NOW (DUPREE) Routine 01/08/2023 2:18 PM EDT Type 2 diabetes mellitus without complication, unspecified whether senior living insulin use (CMS/HCC) TYPE AND SCREEN Routine 01/01/2023 10:22 AM EDT Type 2 diabetes mellitus without complication, unspecified whether salvage determiner insulin use (CMS/HCC) VITAMIN D,25-OH,TOTAL,IA Routine 01/01/2023 10:20 AM EDT Type 2 diabetes mellitus without complication, unspecified whether senior living insulin use (CMS/HCC) TSH W/REFLEX TO FT4 Routine 01/01/2023 1 0:20 AM EDT Type 2 diabetes mellitus without complication, unspecified whether senior living insulin use (CMS/HCC) CBC WITH AUTO DIFFERENTIAL Routine 01/01/2023 10:20 AM EDT Type 2 diabetes mellitus without complication, unspecified whether senior living insulin use (CMS/HCC) ZINC Routine 01/01/2023 10:20 AM EDT Type 2 diabetes mellitus without complication, unspecified whether salvage determiner insulin use (CMS/HCC) VITAMIN A Routine 01/01/2023 10:20 AM EDT Type 2 diabetes mellitus without complication, unspecified whether salvage determiner insulin use (CMS/HCC) APTT Routine 01/01/2023 10:20 AM EDT Type 2 diabetes mellitus without complication, unspecified whether salvage determiner insulin use (CMS/HCC) PROTHROMBIN TIME-INR Routine 01/01/2023 10:20 AM EDT Type 2 diabetes mellitus without complication, unspecified whether senior living insulin use (CMS/HCC) C-REACTIVE PROTEIN Routine 01/01/2023 10 :20 AM EDT Type 2 diabetes mellitus without complication, unspecified whether senior living insulin use (CMS/HCC) VITAMIN B1 Routine 01/01/2023 10:20 AM EDT Type 2 diabetes mellitus without complication, unspecified whether salvage determiner insulin use (CMS/HCC) PTH, INTACT WITHOUT CALCIUM Routine 01/01/2023 10:20 AM EDT Type 2 diabetes mellitus without complication, unspecified whether salvage determiner insulin use (CMS/HCC) HEMOGLOBIN A1C Routine 01/01/2023 10:20 AM EDT Type 2 diabetes mellitus without complication, unspecified whether senior living insulin use (CMS/HCC) FERRITIN Routine 01/01/2023 10:20 AM EDT Type 2 diabetes mellitus without complication, unspecified whether senior living insulin use (CMS/HCC) VITAMIN B12 Routine 01/01/2023 10:20 AM EDT Type 2 diabetes mellitus without complication, unspecified whether salvage determiner insulin use (CMS/HCC) LIPID PANEL, STANDARD Routine 01/01/2023 10:20 AM EDT Type 2 diabetes mellitus without complication, unspecified whether salvage determiner insulin use (CMS/HCC) COMPREHENSIVE METABOLIC PANEL Routine 01/01/2023 10:20 AM EDT Type 2 diabetes mellitus without complication, unspecified whether salvage determiner insulin use (CMS/HCC) GLUCOSE, WHOLE BLOOD Routine 11/13/2022 1:31 PM EDT Type 2 diabetes mellitus without complication, unspecified whether senior living insulin use (CMS/HCC) HEMOGLOBIN A1C Routine 11/13/2022 1:14 PM EDT Type 2 diabetes mellitus without complication, unspecified whether senior living insulin use (CMS/HCC) documented in this encounter Results * CA 19-9 (01/09/2023 10:38 AM EDT) CA 19-9 14 <34 U/mL [facility] Comment:The CA19-9 result ma y be increased on average 14% - 20%,relative to results previously obtained with this methoddue to a recent calibrator adjustment made in Octobery the reagent 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 In the low range for thisassay (< [...] or absence of disease.THIS TEST WAS PERFORMED AT:[employer] [place] [id number] LONDONO MD 01/09/2023 10:3 8 AM EDT 01/09/2023 10:42 AM EDT [facility] External Provider LAB BLO OD ORDERABLES Final Result [facility] [address] [place] [phone] * Hematoxylin and Eosin Stain (01/09/2023 8:38 AM EDT) 01/09/2023 8:38 AM EDT 01/09/2023 8:53 AM EDT Narrative [facility] - 01/14/2023 1:28 PM EDT ----- ------- Name: Julia López ? Age/Sex: 47/F ? : 1975 Unit#: [id number] ?? Attend Dr: Darci Sanders MD ?Re01/09/23 ?Status: DEP SDC ? Location: HO.SSS ?Disch: ? ----- ------- SPEC : [id number] ? RECD: 01/09/23 ? STATUS: ??SOUT ? REQ NUM: [id number] ? PUSHPA: 01/09/23 ? SUBM DR: Darci [...] ? Age/Sex: 47/F ? : 1975 Unit#: [id number] ?? Attend Dr: Darci Sanders MD ?Re01/09/23 ?Status: DEP SDC ? Location: HO.SSS ?Disch: ? ----- ------- SPEC : [id number] ? RECD: 01/09/23 ? STATUS: ??SOUT ? REQ NUM: [id number] ? PUSHPA: 01/09/23 ? SUBM DR: Darci [...] ?? [address] ?? [place] [address] ?? [phone] ?? Darci Sanders MD ?? [address] [place] [address], [address] ?? [place] [address] ?? [phone] ----- ------- Signed (signature on file) Shaun Lebron MD 01/14/23 1328 ? ----- ------- ? END OF REPORT ? [facility] External Provider LAB BLO OD ORDERABLES Final Result [facility] [address] [place] [address] [phone] * COVID-19 ID NOW ([employer]) (01/08/2023 2:18 PM EDT) IDNOW SERIAL# [id number] [facility] COVID-19 TEST Negative Negative [facility] COVID-19 NOTE See Note [facility] Comment: Results are for the identification of SARS-CoV2 RNA. TheSARS-CoV2 RNA is generally detectable in respiratory samplesduring the acute phase of infection. Positive results areindicative of the presence of SARS-CoV-2 RNA; clinicalcorrelation with patient history and other diagnosticinformation is necessary to determine patient infectionstatus. Positive results do not rule out bacterial infectionor co- infection with other viruses.Testing facilities within the [facility] and itsterritories are required to report [...] 2:18 PM EDT 01/08/2023 2:32 PM EDT [facility] Exter nal Provider LAB MOLECULAR DIAGNOSTICS ORDERABLES Final Result Performing Organization Address [facility]/ZIP Co de Phone Number [facility] [address] [place] [phone] * Type and screen (01/01/2023 10:22 AM EDT) Blood Type OP [facility] Antibody Screen NEGATIVE [facility] 01/01/2023 10:2 2 AM EDT 01/01/2023 11:04 AM EDT Narrative [facility] - 01/01/2023 11:55 AM EDT Spec expiration changed by JAMESON on 01/01/23Reason: For SURGERYNURSING:Call Blood Bank (ext. [phone]) to band patient on admission.Type and Screen in effect until 2300 on 01/09/23Witnessed by EDELMIRA [facility] External Provider LAB BLO OD BANK TEST ORDERABLES Final Result Performing Organization Address [facility] Co de Phone Number [facility] [address] [place] [phone] * (ABNORMAL) Vitamin A (01/01/2023 10:20 AM EDT) Vitamin A (Retinol) 32(A) 38 - 98 mcg/dL [facility] Comment:Vitamin supplementat ion within 24 hours prior toblood draw may affect the accuracy of the results.This test was developed and its analytical performancecharacteristics have been determined by [employer] [place]. It hasnot been cleared or approved by the U.S. Food and DrugAdministration. This assay has been validated pursuantto the CLIA regulations and is used for clinicalpurposes.THIS TEST WAS PERFORMED AT:[email or web address] [place] [address]UNAOKTVNICOLA BARRY MD,PHD 01/01/2023 10:2 0 AM EDT 01/01/2023 10:20 AM EDT [facility] External Provider LAB BLO OD ORDERABLES Final Result Performing Organization Address [facility] Co de Phone Number [facility] [address] [place] [phone] * (ABNORMAL) Vitamin B1 (01/01/2023 10:20 AM EDT) Vitamin B1 <6(A) 8 - 30 nmol/L [facility] Comment:Vitamin supplementat ion within 24 hours prior toblood draw may affect the accuracy of the results.This test was developed and its analytical performancecharacteristics have been determined by [employer] [place], [place]. It hasnot been cleared or approved by the U.S. Food and DrugAdministration. This assay has been validated pursuantto the CLIA regulations and is used for clinicalpurposes.THIS TEST WAS PERFORMED AT:[email or web address] [place] [address]WVQFSEYNICOLA BARRY MD,PHD 01/01/2023 10:2 0 AM EDT 01/01/2023 10:20 AM EDT [facility] External Provider LAB BLO OD ORDERABLES Final Result Performing Organization Address [facility] Co de Phone Number [facility] [address] [place] [phone] * Zinc (01/01/2023 10:20 AM EDT) Zinc 84 60 - 130 mcg/dL [facility] Comment:This test was develo ped and its analytical performancecharacteristics have been determined by [employer] [place], [place]. It hasnot been cleared or approved by the U.S. Food and DrugAdministration. This assay has been validated pursuantto the CLIA regulations and is used for clinicalpurposes.THIS TEST WAS PERFORMED AT:[email or web address] [email or web address] [place] [address]UNLOHNINICOLA BARRY MD,PHD 01/01/2023 10:2 0 AM EDT 01/01/2023 10:20 AM EDT [facility] External Provider LAB BLO OD ORDERABLES Final Result Performing Organization Address [facility] Co de Phone Number [facility] [address] [place] [address] [phone] * PTH, Intact Without Calcium (01/01/2023 10:20 AM EDT) PTHI 32 16 - 77 pg/mL [facility] Comment:Interpretive Guide I ntact PTH Calcium -------Normal Parathyroid Normal NormalHypoparathyroidism Low or Low Normal LowHyperparathyroidism Primary Normal or High High Secondary High Normal or Low Tertiary High HighNon-Parathyroid Hypercalcemia Low or Low Normal High Calcium (PTHI) 9.9 8.6 - 10.2 mg/dL [facility] Comment:THIS TEST WAS PERFOR MED AT:[email or web address] [address] [id number] LONDONO MD 01/01/2023 10:2 0 AM EDT 01/01/2023 10:20 AM EDT [facility] External Provider LAB BLO OD ORDERABLES Final Result Performing Organization Address [facility]/ZIP Co de Phone Number [facility] [address] [place] [phone] * Lipid Panel, Standard (01/01/2023 10:20 AM EDT) Triglycerides 73 mg/dL [facility] Comment:Desirable Triglyceri de: less than 150 mg/dLBorderline High Triglyceride 150-199 mg/dLHigh Triglyceride: 200-499 mg/dLVery High Triglyceride: greater than or equal to 5OO mg/dL Cholesterol 101 mg/dL [facility] Comment:Desirable Cholestero l: less than 200 mg/dLBorderline High Cholesterol: 200-239 mg/dLHigh Cholesterol: greater than 239 mg/dL LDL Cholesterol Calculated 53 mg/dl [facility] Comment:Desirable LDL: less than 100 mg/dLNear Optimal/Above Optimal LDL: 110- 129 mg/dLBorderline High LDL: 130-159 mg/dLHigh LDL: 160-189 mg/dLVery High LDL: greater than or equal to 190 mg/dL HDL Cholesterol 34 mg/dL [facility] Comment:Desirable HDL: great er than 40 mg/dL Note: This HDL assay may give artificially low results in patients with liver disease. 01/01/2023 10:2 0 AM EDT 01/01/2023 10:20 AM EDT [facility] External Provider LAB BLO OD ORDERABLES Final Result Performing Organization Address [facility]/ZIP Co de Phone Number [facility] [address] [place] [phone] * (ABNORMAL) C-reactive Protein (01/01/2023 10:20 AM EDT) C Reactive Protein 2.54(H) < or = 0.50 mg/dL [facility] 01/01/2023 10:2 0 AM EDT 01/01/2023 10:20 AM EDT [facility] External Provider LAB BLO OD ORDERABLES Final Result [facility] [address] [place] [phone] * (ABNORMAL) Comprehensive Metabolic Panel (01/01/2023 10:20 AM EDT) Sodium 136 135 - 145 mmol/L [facility] Potassium 4.7 3.3 - 5.1 mmol/L [facility] Chloride 99 96 - 108 mmol/L [facility] Carbon Dioxide 28 22 - 29 mmol/L [facility] Anion Gap 14 12 - 20 [facility] Urea Nitrogen (BUN) 13 9 - 16 mg/dL [facility] Creatinine, Serum 0.80 0.5 - 1.4 mg/dL [facility] Creatinine Clr Calc Pharmacy 134.3 [facility] Comment:Provided height and weight: 175.26 cm,142.882 kg.eGFR (calculated from the MDRD study equation) and eCrCl(calculated from the Cockcroft-Gault equation) are based ondifferent parameters and may not yield comparable results.If eCrCl result is absurd, please check patient'sheight/weight. Estimated Glomerular Filt Rate >60 [facility] Comment:NOTE: For -Am erican individuals, multiply the result by 1.210.Chronic Kidney Disease: Estimated GFR < 60 mL/min/1.80w6Bcavul Kidney Disease: Estimated GFR < 15 mL/min/1.73m2 Glucose 141(H) 60 - 115 mg/dL [facility] Calcium 10.0 8.4 - 10.2 mg/dL [facility] Bilirubin, Total 0.9 0.0 - 1.0 mg/dL [facility] Aspartate Amino Transferase 18 5 - 31 U/L [facility] Alanine Aminotransferase 14 0 - 31 U/L [facility] Total Protein 7.9 6.5 - 8.0 g/dL [facility] Albumin Level 4.0 3.5 - 5.0 g/dL [facility] Alkaline Phosphatase 85 39 - 117 U/L [facility] 01/01/2023 10:2 0 AM EDT 01/01/2023 10:20 AM EDT [facility] External Provider LAB BLO OD ORDERABLES Final Result Performing Organization Address [facility]/ZIP Co de Phone Number [facility] [address] [place] [phone] * TSH W/Reflex to FT4 (01/01/2023 10:20 AM EDT) TSH reflex Free T4 1.39 0.32 - 4.0 uIU/mL [facility] 01/01/2023 10:2 0 AM EDT 01/01/2023 10:20 AM EDT [facility] External Provider LAB BLO OD ORDERABLES Final Result Performing Organization Address [facility] de Phone Number [facility] [address] [place] [phone] * Vitamin D, 25-Hydroxy, Total, Immunoassay (01/01/2023 10:20 AM EDT) Vitamin D 25-OH Total 23.8 >30 ng/mL [facility] Comment:Health Based Referen ce Values*< 20 ng/mL Mfcldoqnv28-17 ng/mL Insufficient> 30 ng/mL Sufficient*Nay HASTINGS. N [...] 0 AM EDT 01/01/2023 10:20 AM EDT [facility] External Provider LAB BLO OD ORDERABLES Final Result Performing Organization Address [facility] Co de Phone Number [facility] [address] [place] [phone] * Vitamin B12 (01/01/2023 10:20 AM EDT) Vitamin B12 505 200 - 900 pg/mL [facility] Comment:NORMAL 200-900 PG/ML INDETERMINATE 160-199 PG/ML DEFICIENT < 160 PG/ML 01/01/2023 10:2 0 AM EDT 01/01/2023 10:20 AM EDT [facility] External Provider LAB BLO OD ORDERABLES Final Result Performing Organization Address [facility] Co de Phone Number [facility] [address] [place] [phone] * Ferritin (01/01/2023 10:20 AM EDT) Ferritin 192 10 - 250 ng/mL [facility] 01/01/2023 10:2 0 AM EDT 01/01/2023 10:20 AM EDT [facility] External Provider LAB BLO OD ORDERABLES Final Result Performing Organization Address [facility] Co de Phone Number [facility] [address] [place] [phone] * Hemoglobin A1c (01/01/2023 10:20 AM EDT) Hemoglobin A1c 6.8 % [facility] Comment:Hemoglobin A1C Refer ence Range Adults: 4.8 - 6.0 % Non diabetic: < 6.0 % Goal: < 7.0 %Additional Action Suggested: > 8.0 %Note: Hemoglobin A1c results are invalid for patients with abnormal amounts of HbF. Blood transfusions may impact the HbA1c concentration in the patient sample. Estimated Average Glucose 148 mg/dL [facility] Comment:eAG = Estimated ave rage glucose which is %A1C expressed asaverage glucose, using the formula of the B8F-TasumlsTqspzra Glucose study (ADAG), Diabetes Care, Vol.31,#8,2007 01/01/2023 10:2 0 AM EDT 01/01/2023 10:20 AM EDT [facility] External Provider LAB BLO OD ORDERABLES Final Result Performing Organization Address [facility] de Phone Number [facility] [address] [place] [phone] * APTT (01/01/2023 10:20 AM EDT) Partial Thromboplastin Time 35.0 26.0 - 36.4 SEC [facility] 01/01/2023 10:2 0 AM EDT 01/01/2023 10:20 AM EDT [facility] External Provider LAB BLO OD ORDERABLES Final Result Performing Organization Address [facility] de Phone Number [facility] [address] [place] [phone] * Prothrombin Time-INR (01/01/2023 10:20 AM EDT) Prothrombin Time 12.9 10.0 - 13.1 SEC [facility] INTERNATIONAL NORM RATIO 1.1 0.9 - 1.1 [facility] Comment:INTERNATIONAL NORMAL IZED RATIO (INR) [...] AM EDT 01/01/2023 10:20 AM EDT [facility] External Provider LAB BLO OD ORDERABLES Final Result [facility] [address] [place] [phone] * (ABNORMAL) CBC auto differential (01/01/2023 10:20 AM EDT) White Blood Count 11.3(H) 4.8 - 10.8 X10*3/uL [facility] Red Blood Count 5.09 4.20 - 5.50 X10*6/uL [facility] Hemoglobin 13.8 12.0 - 16.0 g/dl [facility] Hematocrit 44.1 37.0 - 47.0 % [facility] Mean Corpuscular Volume 86.6 80.0 - 98.0 fL [facility] Mean Corpuscular Hemoglobin 27.1 27.0 - 33.0 pg [facility] Mean Corpuscular HGB Conc 31.3 31.0 - 35.0 g/dl [facility] Red Cell Distribution Width 14.3 11.0 - 16.0 % [facility] Platelet Count 376 160 - 400 X10*3/uL [facility] Mean Platelet Volume 9.2(L) 9.4 - 12.3 fL [facility] Neutrophils Percent Auto 66.0 45 - 73 % [facility] Imm Gran Pct Auto 0.8(H) 0.0 - 0.4 % [facility] Lymphocytes Percent Auto 25.1 20 - 40 % [facility] Monocytes Percent Auto 5.5 2 - 11 % [facility] Eosinophils Percent Auto 2.0 0 - 4 % [facility] Basophils Percent Auto 0.6 0 - 2 % [facility] NRBC Pct Auto 0.0 0.0 - 0.2 /100WBC [facility] Neutrophils Absolute Auto 7.4 2.0 - 8.3 x10*3/uL [facility] Imm Gran Abs Auto 0.09(H) 0.00 - 0.03 X10*3/uL [facility] Lymphocytes Absolute Auto 2.8 1.2 - 4.9 X10*3/uL [facility] Monocytes Absolute Auto 0.6 0.1 - 1.2 X10*3/uL [facility] Eosinophils Absolute Auto 0.2 0.0 - 0.4 X10*3/uL [facility] Basophils Absolute Auto 0.1 0.0 - 0.2 X10*3/uL [facility] NRBC Abs Auto 0.000 0.0 - 0.012 X10*3/uL [facility] 01/01/2023 10:2 0 AM EDT 01/01/2023 10:20 AM EDT [facility] External Provider LAB BLO OD ORDERABLES Final Result Performing Organization Address [facility]/ZIP Co de Phone Number [facility] [address] [place] [phone] * (ABNORMAL) Glucose, Whole Blood (11/13/2022 1:31 PM EDT) Glucose, Whole Blood 196(H) 60 - 115 mg/dL [facility] Comment:METER #: [id number] 5Testing performed in the Endocrinology Department [address] , [address], [facility]. 11/13/2022 1:31 PM EDT 11/13/2022 1:34 PM EDT [facility] External Provider LAB BLO OD ORDERABLES Final Result Performing Organization Address [facility]/ZIP Co de Phone Number [facility] [address] [place] [phone] * Hemoglobin A1c (11/13/2022 1:14 PM EDT) Hemoglobin A1c 7.4 % [facility] Comment:Hemoglobin A1C Refer ence Range Adults: 4.8 - 6.0 % Non diabetic: < 6.0 % Goal: < 7.0 %Additional Action Suggested: > 8.0 %Note: Hemoglobin A1c results are invalid for patients with abnormal amounts of HbF. Blood transfusions may impact the HbA1c concentration in the patient sample. Estimated Average Glucose 166 mg/dL [facility] Comment:eAG = Estimated ave rage glucose which is %A1C expressed asaverage glucose, using the formula of the K6P-TnttdwlArguhjm Glucose study (ADAG), Diabetes Care, Vol.31,#8,2007 11/13/2022 1:14 PM EDT 11/13/2022 1:14 PM EDT [facility] External Provider LAB BLO OD ORDERABLES Final Result [facility] [address] [place] [phone] documented in this encounter Visit Diagnoses Diagnosis Type 2 diabetes mellitus without complication, unspecified whether senior living insulin use ([facility])- Primary documented in this encounter Care Teams Personal Loan Specialist Relationship Specialty Start Date End Date Braulio Carbajal MD [address] [place] [phone] PCP - General Internal Medicine 12/14/19 04/28/24 documented as of this encounter
--- OUTSIDE RECORDS SUMMARY | 2024-11-10 08:26 | XMS_ITS | Data Portability ---
Author Organization [place] [facility] [place] Address [address] [place] [address] Care Team Providers Care Manager Science Name Role Phone JAVIER LANGLEY Referring Provider [phone] Assessment Encounter Date Assessment Date Assessment LastModified by Organization Details LastModified Time 06/18/2024 06/18/2024 IMPRESSION: 49-year-old [id number] woman with RIGHT lateral epicondylitis. PLAN: [...] Gonzalez MS, PA-C in indirect conjunction with [facility] provider Clark Andino MD. He [...] scale). 2023 024 [email or web address] [facility], [address], [address], [place], [address], 08/13/2024 15:48:51 Surgeries None recorded. Imaging XR, hip, unilatera l, 2 or 3 view 2023 024 [email or web address] [facility], [address], [address], [place], [address], 07/07/2024 11:51:40 XR, elbow, 3 or more view 2023 024 [facility], [address], [address], [place], [address], 06/19/2024 16:54:16 Medication Orders meloxicam 15 mg tablet 2023 024 [facility], [address], [place], [address], 06/18/2024 14:11:51 Patient TargetsNo targets recorded. Patient Instructions Encounter Date Encounter Id Patient Instructions Last Modified By Organization Details Last Modified Time 06/18/2024 [id number] tennis elbow: exercises Not available 06/18/2024 14:11:37 [...] LEFT}} elbow. Not available 06/18/2024 13:55:08 07/07/2024 [id number] {{2 3 4* 5 6 7 8 [...] Organization Details Recorded Time Lateral epicondyli tis 969172697 Active [address], [place], [address] , [place] [facility], P 4 14:10:53 Lateral epicondyli tis 472417021 Active [address], [place], [address] , [place] [facility], P 4 14:11:09 Osteoarthr itis of left hip joint 7232999751494 08 Active 12/03/ 2024 RADHA GONZALEZ PA-C [address], [place], [address] , [place] [facility], P 4 11:06:02 Problem Notes None recorded. [...] SNOMED-CT Code Diagnosis ICD10 Code Diagnosis Note [id number] Oscar Avina MD [facility] [address] [facility] [place] [address] 06/18/2024 13:20:00 06/18/2024 14:16:30 Pain in elbow 32559407 M25.521 Lateral epicondylitis 20 2732170 M77.10 [id number] Clark Andino MD Critical access hospital [address] [facility] [address] [place] [address] 07/07/2024 10:17:23 07/07/2024 11:04:15 Hip pain 13498723 M25.552 Osteoarthr itis of left hip joint [id number] 67772 M16.12 Health Concerns Section Related Observation LastModified by Organization Detai ls LastModified Time None Recorded Concern Status LastModified by Organization Details LastModified Time None Recorded Advance Directives Directive None Recorded Payers Encounter Date Sequence Insurance Name Policy Number Policy Fountain Covered Member ID Fountain Member ID Guarantor Name 06/18/2024 1 [employer] [id number] Glorymar López Colon [id number] Glorymar López-Col on 07/07/2024 1 [employer] [id number] Glorymar López Colon [id number] Glorymar López-Col on Notes Date Note Type [...] 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 She is [id number] . Oscar Avina MD [address], [place], [address], [place] [facility] 06/18/2024 14:13:14 07/07/2024 text/html 49-year-old fema [...] RADHA GONZALEZ PA-C [address], [place], [address], [place] [facility], [facility] 07/07/2024 11:07:40 OBGyn Episode No OBEpisode recorded.
--- OUTSIDE RECORDS SUMMARY | 2024-11-10 08:26 | XMS_ITS | Encounter Summary ---
Author Organization [employer] Address [address] [facility] 7 [place] [address] Care Team Providers Care Director Manufacturing Engineering Name Role Phone Braulio Carbajal MD Primary Care Prov ider Reason for Visit * Reason Onset Date Comments Med Refill 02/28/2023 Encounter Details Date Type Department Care Team (Late st Contact Info) Description 02/28/2023 Refill [facility] [address] [place] [address] Braulio Carbajal MD [address] [place] [address] Mixed hyperlipidemia; Primary hypertension; Type 2 diabetes [...] (CMS/HCC) documented in this encounter Care Teams Director Manufacturing Engineering Relationship Specialty Start Date End Date Braulio Carbajal MD [address] [place] [address] PCP - General Internal Medicine 12/14/19 04/28/24 documented as of this encounter
--- OUTSIDE RECORDS SUMMARY | 2024-11-10 08:26 | XMS_ITS | Continuity of Care Document ---
Author Organization [facility] Address [address] [facility] [address] [place] [address] Phone [phone] Social History Type Date Description Comments Sex Unknown Medical Devices Description No Information Available Encounters Description No Information Available Assessments Description No Information Available Plan of Treatment No Information Available Functional Status Description No Information Available Mental Status Description No Information Available Referrals Description No Information Available
--- OUTSIDE RECORDS SUMMARY | 2024-11-10 08:26 | XMS_ITS | Encounter Summary ---
Author Organization [facility] Address [address] [place] [address] Care Team Providers Care Field Operator Name Role Phone Braulio Carbajal MD Primary Care Prov ider Reason for Visit * Reason Onset Date Comments Med Refill 02/28/2023 Encounter Details Date Type Department Care Team ([facility] st Contact Info) Description 02/28/2023 Refill [facility] [address] [place] [address] Braulio Carbajal MD [address] [place] [address] Social History Tobacco Use Types Packs/Day Years [...] on filedocumented in this encounter Care Teams Field Operator Relationship Specialty Start Date End Date Braulio Carbajal MD [address] [place] [address] PCP - General Internal Medicine 12/14/19 04/28/24 documented as of this encounter
--- OUTSIDE RECORDS SUMMARY | 2024-11-10 08:26 | XMS_ITS | Encounter Summary ---
Author Organization [employer] [facility] Address [address] [place] [address] [address], [place] [address] Care Team Providers Care Stone Sawyer Name Role Phone Braulio Carbajal MD Primary Care Prov ider Reason for Visit * Reason Comments Med Refill Encounter Details Date Type Department Care Team (Late st Contact Info) Description 10/29/2022 Refill [facility] [address] [place], [place] [phone] Braulio Carbajal MD [address] [place] [address] Social History Tobacco Use Types Packs/Day Years [...] on filedocumented in this encounter Care Teams Stone Sawyer Relationship Specialty Start Date End Date Braulio Carbajal MD [address] [place] [address] PCP - General Internal Medicine 12/14/19 04/28/24 documented as of this encounter
--- OUTSIDE RECORDS SUMMARY | 2024-11-10 08:26 | XMS_ITS | Clinical Summary ---
Author Organization [facility] Address [address] [place] [address] Care Team Providers Care Commercial Designer Name Role Phone Braulio Lopez MD Primary Care Provider [phone] Allergies Active Allergy Reactions Criticality Noted Date [...] age to complete this topic Care Teams Commercial Designer Relationship Specialty Start Date End Date Braulio Lopez MD [address] [place] [address] PCP - General Internal Medicine 03/20/22
== END 2024-11-10 09:21 | disposition home or self-care (01) ==
LOC: HO.HOP 08:13
PROVIDERS: PCP Internal Medicine; Visit Provider Counselor Mental Health
DX: F90.2 Attention-deficit hyperactivity disorder, combined type (principal); F41.0 Panic disorder [episodic paroxysmal anxiety]; F32.A Depression, unspecified
CPT/HCPCS: 90837

== ENCOUNTER → 2024-11-10 08:13 | Outpatient (BNVA) | payer OTHER, SELFPAY | PROVIDERS: PCP Internal Medicine; Visit Provider Counselor Mental Health ==

== ENCOUNTER 2024-11-17 11:26 | Outpatient (AMB) | payer OTHER, SELFPAY ==
--- NOTE | 2024-11-17 11:29 | MHC.OFFVIS ---
Vital Signs 11/17/24 11:32 Height 5 ft 9 in Weight 350 lb 5.032 oz BMI 51.7 BP 104/76 Blood Pressure Location Rt radial Position Sitting Pulse 105 H Pulse Source Pulse Oximeter Pulse Oximetry (%) 98 Oxygen Delivery Method Room Air Intake Visit Reasons: T2DM Intake Note: Patient present today to follow up on Type 2 Diabetes Mellitus. Last Diabetic Eye exam: 11/02/24[facility] Last Podiatry Visit: Does not see a Mixologist Random Glucose: 239 mg/dl HgA1C: 8.9% 11/03/2024 Supervisor Machine Workers Required: No Accompanied by: Self / Same As Patient Allergies Penicillins Allergy (Intermediate, Verified 11/17/24 11:32) Shortness of Breath pt states no food allergies Allergy (Unknown, Uncoded 11/17/24 11:32) Unknown Medication List - Last Reconciled 11/17/24 by IDALMIS Cortes albuterol sulfate 90 mcg/actuation 2 puffs inhalation QID PRN atorvastatin 40 mg PO DAILY blood-glucose sensor ([employer] Alexei 3 Plus Sensor device) Apply 1 new sensor every 15 days as directed to monitor blood glucose continuously. bupropion HCl XL 300 mg PO DAILY cholecalciferol (vitamin D3) 125 mcg PO DAILY empagliflozin (Jardiance) 10 mg PO DAILY fluoxetine 20 mg PO DAILY gabapentin 300 mg PO TID 30 days insulin degludec (Tresiba FlexTouch U-200 insulin) 20 units (0.1 mL) subcut DAILY 30 days lisdexamfetamine (Vyvanse) 70 mg PO DAILY lisinopril 10 mg PO DAILY lorazepam 1 mg PO DAILY PRN melatonin 10 mg PO BEDTIME PRN minoxidil 2.5 mg PO DAILY thiamine HCl (vitamin B1) 100 mg PO DAILY tirzepatide (Mounjaro) 12.5 mg (0.5 mL) subcut QWEEK vitamin A palmitate 10,000 units PO DAILY HPI Comments Details: This is a 49-year-old female with a past medical history of type 2 diabetes, hyperlipidemia, morbid obesity, hypertension, spinal stenosis, ADHD, SOLE on CPAP, anxiety with depression and asthma presenting for diabetic management. She was diagnosed with type 2 diabetes in 2003. Current medications: Mounjaro 10 mg weekly, Tresiba 20 units every evening, Jardiance 10 mg daily. Past medications: Metformin discontinued due to GI side effects. Reviewed Alexei 3+ data Average glucose 177 CGM active 86% G ID 7.5% Glucose variability 21.8% Very high 7% High 30% Target range 63% 0% hypoglycemia. She has postprandial and overnight hyperglycemia. Denies side effects on medications. Denies hypoglycemia. She is trying to follow a lower carbohydrate diet. She is awaiting weight loss surgery at [facility]. She has to establish care with a primary care provider 1st. [facility] does not take her insurance anymore. She has an appointment with the primary care provider, but it does not until February, and she is anxious to be seen sooner. I provided her with the contact information for [facility] in [place], but I advised I can not see her in primary care due to a conflict of interest since I see here in endocrinology. Complications: She has retinopathy and neuropathy. ROS: Constitutional: No unexplained weight loss, fever, chills or night sweats. Eyes: No vision changes, blurry vision, double vision, eye pain Respiratory: No shortness of breath, cough or sputum production. Cardiovascular: No chest pain, palpitations or pedal edema Gastrointestinal: No anorexia, nausea, vomiting or diarrhea. No abdominal pain Genitourinary: No dysuria, hematuria, urinary frequency. Skin: No rash Endocrine: No cold or heat intolerance. No polyuria or polydipsia. Physical exam: Constitutional: Alert, in no distress. Head: Normocephalic. Neck: Supple, Full range of motion. No lymphadenopathy. Respiratory: Clear to auscultation. Cardiovascular: S1 S2 regular. No murmurs. Extremities: Warm and well perfused. No clubbing, cyanosis or edema. 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 Diabetic retinopathy Anxiety and depression GERD (gastroesophageal reflux disease) SOLE on CPAP ADHD Hyperlipidemia HTN (hypertension) with goal to be determined Diabetes mellitus Morbid obesity Surgical History Hx of LASIK History of cholecystectomy Family History Mother Diabetes Heart problem Father Hypertension Maternal Grandmother Primary cancer of bone marrow Maternal Grandfather Prostate cancer Social History Are you a primary long term care pharmacist to a significant other at home: No Do you presently have visiting nurse or other home services: No Alcohol intake: never Patient Tobacco Use Status: Never used Tobacco Female Reproductive History Menstrual Age of Menarche: 13 Physical Exam Vital Signs: Last Vital Signs Pulse 105 H 11/17/24 11:32 BP 104/76 11/17/24 11:32 Pulse Ox 98 11/17/24 11:32 Oxygen Delivery Method Room Air 11/17/24 11:32 BMI result Body Mass Index 51.7 Office Procedures Glucose Monitoring Details Details: see hpi 34668 - Glucose monitoring, continuous-physician I&R Procedure code (CPT) selection complete Results Reviewed Results Reviewed: Laboratory Last Values Glucose (Clinic) 239 mg/dL (60-115) H 11/17/24 11:39 Laboratory Tests 01/01/23 01/14/23 11/03/24 10:20 11:01 07:45 Plt Count 349 Creatinine 0.70 Estimated GFR > 60 Hgb A1c (Clinic) AST 17 ALT 18 Triglycerides 89 Cholesterol 108 LDL Cholesterol, Calc 53 HDL Cholesterol 38 L Vitamin B12 505 TSH 1.39 Urine Creatinine 113.22 Urine Microalbumin 27.0 Microalb/Creat Ratio 23.8 11/03/24 08:25 Plt Count Creatinine Estimated GFR Hgb A1c (Clinic) 8.9 H AST ALT Triglycerides Cholesterol LDL Cholesterol, Calc HDL Cholesterol Vitamin B12 TSH Urine Creatinine Urine Microalbumin Microalb/Creat Ratio Assessment & Plan Assessment & Plan (1) Type 2 diabetes mellitus with retinopathy: Code(s): E11.319 - Type 2 diabetes mellitus with unspecified diabetic retinopathy without macular edema Category: Medical Qualifiers: Diabetes mellitus shelter insulin use: with shelter use Plan This is a 49-year-old female with type 2 diabetes with improving glycemic control. Increase Mounjaro to 12.5 mg weekly. Continue Jardiance 10 mg daily. Continue Tresiba 20 units every evening. Diabetic diet reviewed. She is awaiting weight loss surgery at [facility]. See HPI. Reviewed treatment of hypoglycemia. Complications of diabetes reviewed with the patient. Follow up in 4 weeks for type 2 diabetes. Orders: Orders AMB Glucose Monitoring Today E11.9 - Type 2 diabetes mellitus without complications Medications: New tirzepatide (Mounjaro) 12.5 mg (0.5 mL) subcut QWEEK 2 mL 2RF blood-glucose sensor ([employer] Alexei 3 Plus Sensor device) Apply 1 new sensor every 15 days as directed to monitor blood glucose continuously. 2 ea 11RF E11.319 - Type 2 diabetes mellitus with unspecified diabetic retinopathy without macular edema Refilled empagliflozin (Jardiance) 10 mg PO DAILY 90 tabs 1RF Discontinued tirzepatide (Mounjaro) Discontinued Reason: Doctor's Order 10 mg (0.5 mL) subcut QWEEK 2 mL 5RF blood-glucose sensor (FreeStyle Alexei 3 Sensor device) Discontinued Reason: Doctor's Order USE DIRECTED AND CHANGE EVERY 14 DAYS 6 ea 4RF Patient Instructions: [phone] [facility] in [place]. You can request a new patient visit, but I cannot see you for primary care because I see you in endocrinology, and it is a conflict of interest. Increase Monjaro to 12.5 mg weekly Continue Jaridance 10 mg daily Continue Tresiba 20 units every evening Coding Level of Care Code Est Pt Level 4 (59519) Diagnoses Type 2 diabetes mellitus with retinopathy E11.319 Diabetes mellitus shelter insulin use: with director long term care use CPT Codes Details - CPT: 79839 - Glucose monitoring, continuous-physician I&R ([id number])
[2024-11-17 11:32] VITALS: BP 104/76; PULSE 105; O2SAT 98; BMI 51.7
[2024-11-17 11:43] LABS: Glucose, Whole Blood 239 mg/dL (60-115)
--- OUTSIDE RECORDS SUMMARY | 2024-11-17 14:11 | XMS_ITS | Clinical Summary ---
Author Organization [email or web address] [facility] Address [address] [place] [address] 7t [place] [address] Care Team Providers Care Nursing Education Consultant Name Role Phone Unavailable Primary Care Provider [...] 2 diabetes mellitus without complication, unspecified whether rat exterminator insulin use ([facility]) Inject 1.5 mg under the [...] Encounters Date Type Department Care Team Description 11/17/2024 Orders Only GENERIC EXTERNAL DATA DEPARTMENT Provider, Generic External Data 11/03/2024 Orders Only GENERIC EXTERNAL DATA DEPARTMENT Provider, Generic External Data 11/02/2024 Refill [facility] & P[facility]S [address] [place] [address] Braulio Carbajal MD 10/19/2024 Refill [facility] [address] [place] [address] Braulio Carbajal MD 10/13/2024 Refill [facility] [address] [place] [address] Braulio Carbajal MD Primary hypertension from Last [...] Additional history exists Influenza Vaccine (#1) 2024 3, 07/14/2022, 07/13/2021, Additional history exists SDOH Screening [...] Associated Diagnosis Comments GLUCOSE, WHOLE BLOOD Routine 11/17/2024 11:39 AM EDT GLUCOSE, WHOLE BLOOD Routine 11/03/2024 8:13 AM EDT BI MAMMOGRAM DIAGNOSTIC TOMOSYNTHESIS BILATERAL Routine 05/25/2024 1:00 PM EDT LIPID PANEL, STANDARD Routine 01/01/2023 10:20 AM EDT Type 2 diabetes mellitus without complication, unspecified whether shelter insulin use ([facility]) ZZZ HISTORICAL HEPATITIS C AB W/REFL TO HCV RNA, QN, PCR Routine 01/24/2022 8:19 AM EDT HIV 1/2 ANTIGEN/ANTIBODY, FOURTH GENERATION W/RFL Routine 01/24/2022 8:19 AM EDT from Last 3 Months or Most Recently Relevant to Health Maintenance Results * (ABNORMAL) Glucose, Whole Blood (11/17/2024 11:39 AM EDT) Only the most recent of2 resultswithin the time period is included. Glucose, Whole Blood 239(H) 60 - 115 mg/dL [facility] Comment:METER #: [id number] Testing performed in the Endocrinology Department [address] , [address], [place]. 11/17/2024 11:3 9 AM EDT 11/17/2024 11:43 AM EDT us Generic External Data Provider LAB BLOOD ORDERAB LES Final Result [facility] [address] [place] [phone] * BI Mammogram Diagnostic Tomosynthesis Bilateral (05/25/2024 1:00 PM EDT) Anatomical Region Laterality Modality Breast Bilateral Mammography 05/25/2024 1:00 PM EDT Narrative 05/25/2024 4:12 PM EDT ? [facility] [place] ? [address] [facility] ?[place] [address] ? Mammography Report ? Signed ? Patient: López,Glorymar ?MR#: [id number] ?? [id number] ? : 1975 ?Acct:[id number] ? Age/Sex: 48 / F ?ADM Date: 10/21/24 ? Loc: HO.MAMMO ? Attending Dr: Ryan Prescott MD ? Ordering Physician: Ryan Prescott MD ?Results: 2Ben ?? ign Findings ? Date of Service: 05/25/24 ?Follow Up: 1 Year From Orig ?? inal Mammogram ? Procedure(s): MM tomosynthesis diagnostic BI ?? Accession Number(s): [id number] ? cc: Braulio Carbajal MD; Ryan Prescott [...] DD/ 1300 ? TD/TT: 05/25/24 1350 ? Shoemaker Apprentice: ? Procedure Note Tari, Image - 05/25/2024 [facility] [address] [place] [address] [place] [address] Mammography Report Signed Patient: Yana López#: [id number] : 1975Acct:[id number] Age/Sex: 48 / FADM Date: 05/25/24 Loc: HO.MAMMO Attending Dr: Ryan Prescott MD Ordering Physician: Ryan Prescott MDResults: 2Ben ign Findings Date of Service: 05/25/24Follow Up: 1 Year From Orig inal Mammogram Procedure(s): MM tomosynthesis diagnostic BI Accession Number(s): [id number] cc: Braulio Carbajal MD; Ryan Prescott MD [...] 05/25/24 1609 DD/ 1300 TD/TT: 05/25/24 1350 Shoemaker Apprentice: [facility] External Provider IMG BI PROCEDURES Edited Result - Final * Lipid Panel, Standard (01/01/2023 10:20 AM EDT) Triglycerides 73 mg/dL [facility] Comment:Desirable Triglyceri de: less than 150 mg/dLBorderline High Triglyceride 150-199 mg/dLHigh Triglyceride: 200-499 mg/dLVery High Triglyceride: greater than or equal to 5OO mg/dL Cholesterol 101 mg/dL [facility] Comment:Desirable Cholestero l: less than 200 mg/dLBorderline High Cholesterol: 200-239 mg/dLHigh Cholesterol: greater than 239 mg/dL LDL Cholesterol Calculated 53 mg/dl [facility] Comment:Desirable LDL: less than 100 mg/dLNear Optimal/Above Optimal LDL: 110- 129 mg/dLBorderline High LDL: 130-159 mg/dLHigh LDL: 160-189 mg/dLVery High LDL: greater than or equal to 190 mg/dL HDL Cholesterol 34 mg/dL [facility] Comment:Desirable HDL: great er than 40 mg/dL Note: This HDL assay may give artificially low results in patients with liver disease. 01/01/2023 10:2 0 AM EDT 01/01/2023 10:20 AM EDT [facility] External Provider LAB BLO OD ORDERABLES Final Result [facility] [address] [place] [phone] * HEPATITIS C AB W/REFL TO HCV RNA, QN, PCR (01/24/2022 8:19 AM EDT) HEPATITIS C ANTIBODY NON-REACT SÁNCHEZ NON-REACT SÁNCHEZ [facility] INDEX 0.02 <1.00 [facility] Comment: ?? HCV antibody was non-reactive. There is no laboratory ?? evidence of HCV infection. ?? In most cases, no further action is required. However, if recent HCV exposure is suspected, a test for HCV RNA (test code 00290) is suggested. ?? For additional information please refer to [email or web address] (This link is being provided for informational/ educational purposes only.) ?? 01/24/2022 8:19 AM EDT Braulio Campbell MD HISTORICAL/NON ORD ERABLE LABS Final Result [facility] [address] * HIV 1/2 ANTIGEN/ANTIBODY,FOURTH GENERATION W/RFL (01/24/2022 8:19 AM EDT) HIV-1/2 ANTIGEN AND ANTIBODIES, 4TH GENERATION W/ REFLEX NON-REACT SÁNCHEZ NON-REACT SÁNCHEZ [facility] Comment: HIV-1 antigen and HIV-1/HIV-2 [...] ? For additional information please refer to [email or web address] (This link is being provided for informational/ educational purposes only.) ? The performance of this assay has not been clinically validated in patients less than 2 years old. ?? 01/24/2022 8:19 AM EDT us Braulio Campbell MD LAB BLOOD ORDERABL ES Final Result [facility] [address] [place] [address], from Last 3 Months or Most Recently Relevant to Health Maintenance Insurance [employer]IC COMMERCIAL MD TAYLA [id number]
--- OUTSIDE RECORDS SUMMARY | 2024-11-17 14:11 | XMS_ITS | Clinical Summary ---
Author Organization 175 [facility] Address [address] [place] [address] Phone Care Team Providers Care Oracle Applications Developer Name Role Phone Braulio Carbajal Primary Care [...] type 08/16/2014 Sleep apnea 06/28/2014 Morbid obesity ([facility] V24, [facility] V28) 2013 Overview (05/22/2024): BMI 52.25 on 06/05/13. Condition not found 06/05/2013 Overview (05/22/2024): Diabetes mellitus type II, uncontrolled Depression 04/05/2012 Encounters Date Type Department Care Team Description 09/14/2024 9:30 AM EST Nutrition Bariatric Surgery - [address] [place] [address] Class 3 severe obesity with serious comorbidity and body mass index (BMI) of 50.0 to 59.9 in adult, unspecified obesity type ([facility] V24, [facility] V28) (Primary Dx) from Last 3 Months Immunizations Name Administration Dates Next Due Tdap Tetanus diptheria acell ular pertussis (Boostrix; Adacel) 7yo and older 12/11/2012 Surgical History Surgery Date Site/Laterality Comments CHOLECYSTECTOMY 1999 PROCEDURE: HISTORICAL CHOLECYSTECTOMY Medical History Medical History Date Comments HTN (hypertension) 2011 DX:HTN (hyper tension) DM (diabetes mellitus) ([facility] V24, [facility] V28) 2006 DX:DM (diabetes mellitus) (H CC) IBS (irritable bowel syndrome) 1993 D X:IBS [...] Routine 07/20/2024 8:33 AM EST Morbid obesity ([facility] V24, [facility] V28) HEMOGLOBIN A1C Routine 07/20/2024 8:33 AM EST Morbid obesity ([facility] V24, [facility] V28) LIPID PANEL WITH REFLEX TO DIRECT LDL Routine 07/20/2024 8:33 AM EST Morbid obesity ([facility] V24, [facility] V28) HM URINE ALBUMIN CREATININE RATIO Routine 02/26/2014 from Last 3 Months or Most Recently Relevant to Health Maintenance Results * (ABNORMAL) Lipid panel with reflex to direct LDL (07/20/2024 8:33 AM EST) Cholesterol 179 0 - 200 mg/dL LAB CHEMISTRY METHOD 07/20/2024 11:24 AM EST [facility] Triglycerides 89 0 - 150 mg/dL LAB CHEMISTRY METHOD 07/20/2024 11:24 AM EST [facility] HDL 53 >=40 mg/dL LAB CHEMISTRY METHOD 07/20/2024 11:24 AM EST [facility] LDL Calculated 108(H) 0 - 100 mg/dL LAB CHEMISTRY METHOD 07/20/2024 11:24 AM EST [facility] VLDL Cholesterol Francisco J 17.8 mg/dL LAB CHEMISTRY METHOD 07/20/2024 11:24 AM [facility] Non HDL Chol. (LDL+VLDL) 126 <145 mg/dL LAB CHEMISTRY METHOD 07/20/2024 11:24 AM EST [facility] Chol/HDL Ratio 3.4 0.0 - 4.4 LAB CHEMISTRY METHOD 07/20/2024 11:24 AM [facility] Blood Venous blood specimen / Unknown Venipuncture / Unknown 07/20/2024 8:33 AM EST 07/20/2024 8:33 AM EST us Gosia Stoner MD LAB BLOOD ORDERABLES Fi nal Result Performing Organization Address City/[facility]/ZIP Co de Phone Number [facility] [address] [place] [address], * (ABNORMAL) Hemoglobin A1c (07/20/2024 8:33 AM EST) Hemoglobin A1C 7.9(H) <6.5 % LAB CHEMISTRY METHOD 07/20/2024 2:41 PM EST [facility] Mean Bld Glu Estim. 180 mg/dL LAB CHEMISTRY METHOD 07/20/2024 2:41 PM EST [facility] Blood Venous blood specimen / Unknown Venipuncture / Unknown 07/20/2024 8:33 AM EST 07/20/2024 8:33 AM EST us Gosia Stoner MD LAB BLOOD ORDERABLES Fi nal Result [facility] [address] [place] [address], * (ABNORMAL) Comprehensive metabolic panel (07/20/2024 8:33 AM EST) Sodium 136 133 - 145 mmol/L LAB CHEMISTRY METHOD 07/20/2024 11:24 AM [facility] Potassium 4.5 3.5 - 5.5 mmol/L LAB CHEMISTRY METHOD 07/20/2024 11:24 AM [facility] Chloride 100 96 - 110 mmol/L LAB CHEMISTRY METHOD 07/20/2024 11:24 AM [facility] CO2 25 21 - 32 mmol/L LAB CHEMISTRY METHOD 07/20/2024 11:24 AM [facility] Anion Gap 11 3 - 11 LAB CHEMISTRY METHOD 07/20/2024 11:24 AM [facility] Glucose 148(H) 70 - 100 mg/dL LAB CHEMISTRY METHOD 07/20/2024 11:24 AM [facility] BUN 15 5 - 25 mg/dL LAB CHEMISTRY METHOD 07/20/2024 11:24 AM [facility] Creatinine 0.71 0.50 - 1.10 mg/dL LAB CHEMISTRY METHOD 07/20/2024 11:24 AM [facility] eGFR 105 >=60 mL/min/1. 73m2 LAB CHEMISTRY METHOD 07/20/2024 11:24 AM [facility] Comment:Calculation based on the??Chronic Kidney Disease Epidemiology Collaboration (CKD-EPI) equation refit??without adjustment for race. BUN/Creatinine Ratio 21.1 LAB CHEMISTRY METHOD 07/20/2024 11:24 AM [facility] Calcium 9.7 8.5 - 10.5 mg/dL LAB CHEMISTRY METHOD 07/20/2024 11:24 AM [facility] AST (SGOT) 16 10 - 42 unit/L LAB CHEMISTRY METHOD 07/20/2024 11:24 AM [facility] ALT (SGPT) 29 10 - 60 unit/L LAB CHEMISTRY METHOD 07/20/2024 11:24 AM EST [facility] Alkaline Phosphatase 124(H) 42 - 121 unit/L LAB CHEMISTRY METHOD 07/20/2024 11:24 AM [facility] Total Protein 7.7 6.0 - 8.0 g/dL LAB CHEMISTRY METHOD 07/20/2024 11:24 AM EST [facility] Albumin 3.6 3.2 - 5.0 g/dL LAB CHEMISTRY METHOD 07/20/2024 11:24 AM [facility] Total Bilirubin 0.4 0.0 - 1.4 mg/dL LAB CHEMISTRY METHOD 07/20/2024 11:24 AM [facility] Blood Venous blood specimen / Unknown Venipuncture / Unknown 07/20/2024 8:33 AM EST 07/20/2024 8:33 AM EST Gosia Stoner MD LAB BLOOD ORDERABLES Fi nal Result [facility] [address] [place] [address], * Urine Albumin Creatinine Ratio (02/26/2014) Urine Albumin Creatinine Ratio Abstracted Historical Provider HEALTH MAINTENANCE Final Result from Last 3 Months or Most Recently Relevant to Health Maintenance Insurance [employer] Care Teams Oracle Applications Developer Relationship Specialty Start Date End Date Braulio Carbajal [address] [place], [place] PCP - General Internal Medicine 03/20/22
--- OUTSIDE RECORDS SUMMARY | 2024-11-17 14:11 | XMS_ITS | Encounter Summary ---
Author Organization [employer] Address [address] [facility] [address] [place] [address] Care Team Providers Care Press And Blow Machine Tender Name Role Phone Unavailable Primary Care Provider Unavailabl e Reason for Visit * Reason Comments Med Refill Encounter Details Date Type Department Care Team ([facility] st Contact Info) Description 10/13/2024 Refill [facility] [address] [place] [address] Braulio Carbajal MD [address] [place] [address] Primary hypertension Social History Tobacco Use Types [...] the past 12 months, has t he [employer] gas, oil or water company threatened to [...]
--- OUTSIDE RECORDS SUMMARY | 2024-11-17 14:11 | XMS_ITS | Clinical Summary ---
Author Organization [facility] Address [address] [place] [address] Care Team Providers Care Electrician Deck Name Role Phone Braulio Lopez MD Primary Care Provider [phone] Allergies Active Allergy Reactions Criticality Noted Date [...] age to complete this topic Care Teams Electrician Deck Relationship Specialty Start Date End Date Braulio Lopez MD [address] [place] [phone] PCP - General Internal Medicine 03/20/22
--- OUTSIDE RECORDS SUMMARY | 2024-11-17 14:11 | XMS_ITS | Encounter Summary ---
Author Organization [employer] Address [address] [facility] 7t [place] [address] Care Team Providers Care Cloth Desizing Range Operator Chief Name Role Phone Braulio Carbajal MD Primary Care Prov ider Encounter Details Date Type Department Care Team (Late st Contact Info) Description 08/17/2022 Orders Only [facility] MEDICINE [address] [place] [address] Braulio Carbajal MD [address] [place] [address] Type 2 diabetes mellitus without complication, unspecified whether salvage determiner insulin use ([facility]) (Primary Dx) Social History Tobacco Use Types [...] unspecified whether salvage determiner insulin use (CMS/HCC) COVID-19 ID NOW (DUPREE) Routine 01/08/2023 2:18 PM EDT Type 2 diabetes mellitus without complication, unspecified whether salvage determiner insulin use (CMS/HCC) TYPE AND SCREEN Routine [...] unspecified whether salvage determiner insulin use (CMS/HCC) CBC WITH AUTO DIFFERENTIAL Routine 01/01/2023 10:20 AM EDT Type 2 diabetes mellitus without complication, unspecified whether salvage determiner insulin use (CMS/HCC) ZINC Routine 01/01/2023 10:20 [...] unspecified whether senior care insulin use (CMS/HCC) PTH, INTACT WITHOUT CALCIUM Routine 01/01/2023 10:20 AM EDT Type 2 diabetes mellitus without complication, unspecified whether salvage determiner insulin use (CMS/HCC) HEMOGLOBIN A1C Routine 01/01/2023 10:20 AM EDT Type 2 diabetes mellitus without complication, unspecified whether senior care insulin use (CMS/HCC) FERRITIN Routine 01/01/2023 10:20 AM EDT Type 2 diabetes mellitus without complication, unspecified whether senior care insulin use (CMS/HCC) VITAMIN B12 Routine 01/01/2023 10:20 AM EDT Type 2 diabetes mellitus without complication, unspecified whether senior care insulin use (CMS/HCC) LIPID PANEL, STANDARD Routine [...] determiner insulin use (CMS/HCC) HEMOGLOBIN A1C Routine 11/13/2022 1:14 PM EDT Type 2 diabetes mellitus without complication, unspecified whether salvage determiner insulin use (CMS/HCC) documented in this encounter Results * CA 19-9 (01/09/2023 10:38 AM EDT) CA 19-9 14 <34 U/mL [facility] Comment:The CA19-9 result ma y be increased on average 14% - 20%,relative to results previously obtained with this methoddue to a recent calibrator adjustment made in Octobery the reagent drill press operator for metal. In the low range for thisassay (< [...] or absence of disease.THIS TEST WAS PERFORMED AT:[employer] [place] [id number] LONDONO MD 01/09/2023 10:3 8 AM EDT 01/09/2023 10:42 AM EDT [facility] External Provider LAB BLO OD ORDERABLES Final Result [facility] [address] [place] [phone] * Hematoxylin and Eosin Stain (01/09/2023 8:38 AM EDT) 01/09/2023 8:38 AM EDT 01/09/2023 8:53 AM EDT Narrative [facility] - 01/14/2023 1:28 PM EDT ----- ------- Name: Julia López ? Age/Sex: 47/F ? : 1975 Unit#: [id number] ?? Attend Dr: Darci Sanders MD ?Re01/09/23 ?Status: DEP SDC ? Location: HO.SSS ?Disch: ? ----- ------- SPEC : [id number] ? RECD: 01/09/23 ? STATUS: ??SOUT ? REQ NUM: [id number] ? PUSHPA: 01/09/23 ? SUBM DR: Darci [...] ? Age/Sex: 47/F ? : 1975 Unit#: [id number] ?? Attend Dr: Darci Sanders MD ?Re01/09/23 ?Status: DEP SDC ? Location: HO.SSS ?Disch: ? ----- ------- SPEC : [id number] ? RECD: 01/09/23 ? STATUS: ??SOUT ? REQ NUM: [id number] ? PUSHPA: 01/09/23 ? SUBM DR: Darci [...] ?? [address] ?? [place] [address] ?? [phone] ?? Darci Sanders MD ?? [address] [place] [address], 3[address] Floor ?? [place] [address] ?? [phone] ----- ------- Signed (signature on file) Shaun Lebron MD 01/14/23 1328 ? ----- ------- ? END OF REPORT ? us [facility] External Provider LAB BLO OD ORDERABLES Final Result [facility] [address] [place] [address] [phone] * COVID-19 ID NOW ([employer]) (01/08/2023 2:18 PM EDT) IDNOW SERIAL# [id number] [facility] COVID-19 TEST Negative Negative [facility] COVID-19 NOTE See Note [facility] Comment: Results are for the identification of SARS-CoV2 RNA. TheSARS-CoV2 RNA is generally detectable in respiratory samplesduring the acute phase of infection. Positive results areindicative of the presence of SARS-CoV-2 RNA; clinicalcorrelation with patient history and other diagnosticinformation is necessary to determine patient infectionstatus. Positive results do not rule out bacterial infectionor co- infection with other viruses.Testing facilities within the [facility] and itsterritories are required to report all [...] 2:18 PM EDT 01/08/2023 2:32 PM EDT [facility] Exter nal Provider LAB MOLECULAR DIAGNOSTICS ORDERABLES Final Result Performing Organization Address [facility]/ZIP Co de Phone Number [facility] [address] [place] [phone] * Type and screen (01/01/2023 10:22 AM EDT) Blood Type OP [facility] Antibody Screen NEGATIVE [facility] 01/01/2023 10:2 2 AM EDT 01/01/2023 11:04 AM EDT Narrative [facility] - 01/01/2023 11:55 AM EDT Spec expiration changed by JAMESON on 01/01/23Reason: For SURGERYNURSING:Call Blood Bank (ext. [phone]) to band patient on admission.Type and Screen in effect until 2300 on 01/09/23Witnessed by EDELMIRA [facility] External Provider LAB BLO OD BANK TEST ORDERABLES Final Result Performing Organization Address [facility] Co de Phone Number [facility] [address] [place] [phone] * (ABNORMAL) Vitamin A (01/01/2023 10:20 AM EDT) Vitamin A (Retinol) 32(A) 38 - 98 mcg/dL [facility] Comment:Vitamin supplementat ion within 24 hours prior toblood draw may affect the accuracy of the results.This test was developed and its analytical performancecharacteristics have been determined by [facility] [place]. It hasnot been cleared or approved by the U.S. Food and DrugAdministration. This assay has been validated pursuantto the CLIA regulations and is used for clinicalpurposes.THIS TEST WAS PERFORMED AT:[employer] [id number] [place] [address]QILCPLYNICOLA BARRY MD,PHD 01/01/2023 10:2 0 AM EDT 01/01/2023 10:20 AM EDT [facility] External Provider LAB BLO OD ORDERABLES Final Result Performing Organization Address [facility] Co de Phone Number [facility] [address] [place] [phone] * (ABNORMAL) Vitamin B1 (01/01/2023 10:20 AM EDT) Vitamin B1 <6(A) 8 - 30 nmol/L [facility] Comment:Vitamin supplementat ion within 24 hours prior toblood draw may affect the accuracy of the results.This test was developed and its analytical performancecharacteristics have been determined by [employer] [place], [place]. It hasnot been cleared or approved by the U.S. Food and DrugAdministration. This assay has been validated pursuantto the CLIA regulations and is used for clinicalpurposes.THIS TEST WAS PERFORMED AT:[employer] [id number] [place] [address]TUYFAYXNICOLA BARRY MD,PHD 01/01/2023 10:2 0 AM EDT 01/01/2023 10:20 AM EDT [facility] External Provider LAB BLO OD ORDERABLES Final Result Performing Organization Address [facility] Co de Phone Number [facility] [address] [place] [phone] * Zinc (01/01/2023 10:20 AM EDT) Zinc 84 60 - 130 mcg/dL [facility] Comment:This test was develo ped and its analytical performancecharacteristics have been determined by [facility] [place], [place]. It hasnot been cleared or approved by the U.S. Food and DrugAdministration. This assay has been validated pursuantto the CLIA regulations and is used for clinicalpurposes.THIS TEST WAS PERFORMED AT:[id number] [place] [address]YHCYRUUNICOLA BARRY MD,PHD 01/01/2023 10:2 0 AM EDT 01/01/2023 10:20 AM EDT [facility] External Provider LAB BLO OD ORDERABLES Final Result Performing Organization Address [facility] Co de Phone Number [facility] [address] [place] [phone] [phone] * PTH, Intact Without Calcium (01/01/2023 10:20 AM EDT) PTHI 32 16 - 77 pg/mL [facility] Comment:Interpretive Guide I ntact PTH Calcium -------Normal Parathyroid Normal NormalHypoparathyroidism Low or Low Normal LowHyperparathyroidism Primary Normal or High High Secondary High Normal or Low Tertiary High HighNon-Parathyroid Hypercalcemia Low or Low Normal High Calcium (PTHI) 9.9 8.6 - 10.2 mg/dL [facility] Comment:THIS TEST WAS PERFOR MED AT:[employer] [address] [address]EOTPQNALINI LONODNO MD 01/01/2023 10:2 0 AM EDT 01/01/2023 10:20 AM EDT [facility] External Provider LAB BLO OD ORDERABLES Final Result Performing Organization Address [facility]/ZIP Co de Phone Number [facility] [address] [place] [phone] * Lipid Panel, Standard (01/01/2023 10:20 AM EDT) Triglycerides 73 mg/dL [facility] Comment:Desirable Triglyceri de: less than 150 mg/dLBorderline High Triglyceride 150-199 mg/dLHigh Triglyceride: 200-499 mg/dLVery High Triglyceride: greater than or equal to 5OO mg/dL Cholesterol 101 mg/dL [facility] Comment:Desirable Cholestero l: less than 200 mg/dLBorderline High Cholesterol: 200-239 mg/dLHigh Cholesterol: greater than 239 mg/dL LDL Cholesterol Calculated 53 mg/dl [facility] Comment:Desirable LDL: less than 100 mg/dLNear Optimal/Above Optimal LDL: 110- 129 mg/dLBorderline High LDL: 130-159 mg/dLHigh LDL: 160-189 mg/dLVery High LDL: greater than or equal to 190 mg/dL HDL Cholesterol 34 mg/dL [facility] Comment:Desirable HDL: great er than 40 mg/dL Note: This HDL assay may give artificially low results in patients with liver disease. 01/01/2023 10:2 0 AM EDT 01/01/2023 10:20 AM EDT [facility] External Provider LAB BLO OD ORDERABLES Final Result Performing Organization Address City/[facility]/ZIP Co de Phone Number [facility] [address] [place] [phone] * (ABNORMAL) C-reactive Protein (01/01/2023 10:20 AM EDT) C Reactive Protein 2.54(H) < or = 0.50 mg/dL [facility] 01/01/2023 10:2 0 AM EDT 01/01/2023 10:20 AM EDT [facility] External Provider LAB BLO OD ORDERABLES Final Result [facility] [address] [place] [phone] * (ABNORMAL) Comprehensive Metabolic Panel (01/01/2023 10:20 AM EDT) Sodium 136 135 - 145 mmol/L [facility] Potassium 4.7 3.3 - 5.1 mmol/L [facility] Chloride 99 96 - 108 mmol/L [facility] Carbon Dioxide 28 22 - 29 mmol/L [facility] Anion Gap 14 12 - 20 [facility] Urea Nitrogen (BUN) 13 9 - 16 mg/dL [facility] Creatinine, Serum 0.80 0.5 - 1.4 mg/dL [facility] Creatinine Clr Calc Pharmacy 134.3 [facility] Comment:Provided height and weight: 175.26 cm,142.882 kg.eGFR (calculated from the MDRD study equation) and eCrCl(calculated from the Cockcroft-Gault equation) are based ondifferent parameters and may not yield comparable results.If eCrCl result is absurd, please check patient'sheight/weight. Estimated Glomerular Filt Rate >60 [facility] Comment:NOTE: For -Am erican individuals, multiply the result by 1.210.Chronic Kidney Disease: Estimated GFR < 60 mL/min/1.15y8Ttofep Kidney Disease: Estimated GFR < 15 mL/min/1.73m2 Glucose 141(H) 60 - 115 mg/dL [facility] Calcium 10.0 8.4 - 10.2 mg/dL [facility] Bilirubin, Total 0.9 0.0 - 1.0 mg/dL [facility] Aspartate Amino Transferase 18 5 - 31 U/L [facility] Alanine Aminotransferase 14 0 - 31 U/L [facility] Total Protein 7.9 6.5 - 8.0 g/dL [facility] Albumin Level 4.0 3.5 - 5.0 g/dL [facility] Alkaline Phosphatase 85 39 - 117 U/L [facility] 01/01/2023 10:2 0 AM EDT 01/01/2023 10:20 AM EDT [facility] External Provider LAB BLO OD ORDERABLES Final Result Performing Organization Address [facility]/ZIP Co de Phone Number [facility] [address] [place] [phone] * TSH W/Reflex to FT4 (01/01/2023 10:20 AM EDT) TSH reflex Free T4 1.39 0.32 - 4.0 uIU/mL [facility] 01/01/2023 10:2 0 AM EDT 01/01/2023 10:20 AM EDT [facility] External Provider LAB BLO OD ORDERABLES Final Result Performing Organization Address [facility] de Phone Number [facility] [address] [place] [phone] * Vitamin D, 25-Hydroxy, Total, Immunoassay (01/01/2023 10:20 AM EDT) Vitamin D 25-OH Total 23.8 >30 ng/mL [facility] Comment:Health Based Referen ce Values*< 20 ng/mL Qsdaroqjy32-33 ng/mL Insufficient> 30 ng/mL Sufficient*Nay HASTINGS. N [...] 0 AM EDT 01/01/2023 10:20 AM EDT [facility] External Provider LAB BLO OD ORDERABLES Final Result Performing Organization Address [facility] Co de Phone Number [facility] [address] [place] [phone] * Vitamin B12 (01/01/2023 10:20 AM EDT) Vitamin B12 505 200 - 900 pg/mL [facility] Comment:NORMAL 200-900 PG/ML INDETERMINATE 160-199 PG/ML DEFICIENT < 160 PG/ML 01/01/2023 10:2 0 AM EDT 01/01/2023 10:20 AM EDT [facility] External Provider LAB BLO OD ORDERABLES Final Result Performing Organization Address [facility] Co de Phone Number [facility] [address] [place] [phone] * Ferritin (01/01/2023 10:20 AM EDT) Ferritin 192 10 - 250 ng/mL [facility] 01/01/2023 10:2 0 AM EDT 01/01/2023 10:20 AM EDT [facility] External Provider LAB BLO OD ORDERABLES Final Result Performing Organization Address [facility] Co de Phone Number [facility] [address] [place] [phone] * Hemoglobin A1c (01/01/2023 10:20 AM EDT) Hemoglobin A1c 6.8 % [facility] Comment:Hemoglobin A1C Refer ence Range Adults: 4.8 - 6.0 % Non diabetic: < 6.0 % Goal: < 7.0 %Additional Action Suggested: > 8.0 %Note: Hemoglobin A1c results are invalid for patients with abnormal amounts of HbF. Blood transfusions may impact the HbA1c concentration in the patient sample. Estimated Average Glucose 148 mg/dL [facility] Comment:eAG = Estimated ave rage glucose which is %A1C expressed asaverage glucose, using the formula of the X0M-MqwjmtnJepkogp Glucose study (ADAG), Diabetes Care, Vol.31,#8,2007 01/01/2023 10:2 0 AM EDT 01/01/2023 10:20 AM EDT [facility] External Provider LAB BLO OD ORDERABLES Final Result Performing Organization Address [facility] de Phone Number [facility] [address] [place] [phone] * APTT (01/01/2023 10:20 AM EDT) Partial Thromboplastin Time 35.0 26.0 - 36.4 SEC [facility] 01/01/2023 10:2 0 AM EDT 01/01/2023 10:20 AM EDT [facility] External Provider LAB BLO OD ORDERABLES Final Result Performing Organization Address [facility] de Phone Number [facility] [address] [place] [phone] * Prothrombin Time-INR (01/01/2023 10:20 AM EDT) Prothrombin Time 12.9 10.0 - 13.1 SEC [facility] INTERNATIONAL NORM RATIO 1.1 0.9 - 1.1 [facility] Comment:INTERNATIONAL NORMAL IZED RATIO (INR) REFERENCE [...] AM EDT 01/01/2023 10:20 AM EDT us [facility] External Provider LAB BLO OD ORDERABLES Final Result [facility] [address] [place] [phone] * (ABNORMAL) CBC auto differential (01/01/2023 10:20 AM EDT) White Blood Count 11.3(H) 4.8 - 10.8 X10*3/uL [facility] Red Blood Count 5.09 4.20 - 5.50 X10*6/uL [facility] Hemoglobin 13.8 12.0 - 16.0 g/dl [facility] Hematocrit 44.1 37.0 - 47.0 % [facility] Mean Corpuscular Volume 86.6 80.0 - 98.0 fL [facility] Mean Corpuscular Hemoglobin 27.1 27.0 - 33.0 pg [facility] Mean Corpuscular HGB Conc 31.3 31.0 - 35.0 g/dl [facility] Red Cell Distribution Width 14.3 11.0 - 16.0 % [facility] Platelet Count 376 160 - 400 X10*3/uL [facility] Mean Platelet Volume 9.2(L) 9.4 - 12.3 fL [facility] Neutrophils Percent Auto 66.0 45 - 73 % [facility] Imm Gran Pct Auto 0.8(H) 0.0 - 0.4 % [facility] Lymphocytes Percent Auto 25.1 20 - 40 % [facility] Monocytes Percent Auto 5.5 2 - 11 % [facility] Eosinophils Percent Auto 2.0 0 - 4 % [facility] Basophils Percent Auto 0.6 0 - 2 % [facility] NRBC Pct Auto 0.0 0.0 - 0.2 /100WBC [facility] Neutrophils Absolute Auto 7.4 2.0 - 8.3 x10*3/uL [facility] Imm Gran Abs Auto 0.09(H) 0.00 - 0.03 X10*3/uL [facility] Lymphocytes Absolute Auto 2.8 1.2 - 4.9 X10*3/uL [facility] Monocytes Absolute Auto 0.6 0.1 - 1.2 X10*3/uL [facility] Eosinophils Absolute Auto 0.2 0.0 - 0.4 X10*3/uL [facility] Basophils Absolute Auto 0.1 0.0 - 0.2 X10*3/uL [facility] NRBC Abs Auto 0.000 0.0 - 0.012 X10*3/uL [facility] 01/01/2023 10:2 0 AM EDT 01/01/2023 10:20 AM EDT [facility] External Provider LAB BLO OD ORDERABLES Final Result Performing Organization Address [facility]/ZIP Co de Phone Number [facility] [address] [place] [phone] * (ABNORMAL) Glucose, Whole Blood (11/13/2022 1:31 PM EDT) Glucose, Whole Blood 196(H) 60 - 115 mg/dL [facility] Comment:METER #: [id number] 5Testing performed in the Endocrinology Department [address] , [address], [facility]. 11/13/2022 1:31 PM EDT 11/13/2022 1:34 PM EDT [facility] External Provider LAB BLO OD ORDERABLES Final Result Performing Organization Address [facility]/ZIP Co de Phone Number [facility] [address] [place] [phone] * Hemoglobin A1c (11/13/2022 1:14 PM EDT) Hemoglobin A1c 7.4 % [facility] Comment:Hemoglobin A1C Refer ence Range Adults: 4.8 - 6.0 % Non diabetic: < 6.0 % Goal: < 7.0 %Additional Action Suggested: > 8.0 %Note: Hemoglobin A1c results are invalid for patients with abnormal amounts of HbF. Blood transfusions may impact the HbA1c concentration in the patient sample. Estimated Average Glucose 166 mg/dL [facility] Comment:eAG = Estimated ave rage glucose which is %A1C expressed asaverage glucose, using the formula of the J8V-RqjxlwlZereaqn Glucose study (ADAG), Diabetes Care, Vol.31,#8,2007 11/13/2022 1:14 PM EDT 11/13/2022 1:14 PM EDT us [facility] External Provider LAB BLO OD ORDERABLES Final Result [facility] [address] [place] [phone] documented in this encounter Visit Diagnoses Diagnosis Type 2 diabetes mellitus without complication, unspecified whether senior care insulin use ([facility])- Primary documented in this encounter Care Teams Cloth Desizing Range Operator Chief Relationship Specialty Start Date End Date Braulio Carbajal MD [address] [place] [phone] PCP - General Internal Medicine 12/14/19 04/28/24 documented as of this encounter
--- OUTSIDE RECORDS SUMMARY | 2024-11-17 14:11 | XMS_ITS | Encounter Summary ---
Author Organization [facility] Address [address] [facility] [address]t [place] [address] Care Team Providers Care Book Author Name Role Phone Unavailable Primary Care Provider Unavailabl e Reason for Visit * Reason Comments Med Refill Encounter Details Date Type Department Care Team ([facility] st Contact Info) Description 10/19/2024 Refill [facility] CH[facility] MED & PEDS [address] [place] [address] Braulio Carbajal MD [address] [place] [address] Social History Tobacco Use Types Packs/Day Years [...]
--- OUTSIDE RECORDS SUMMARY | 2024-11-17 14:11 | XMS_ITS | Encounter Summary ---
Author Organization [employer] Address [address] [facility] [address] [place] [address] Care Team Providers Care Geothermal System Installer Name Role Phone Braulio Carbajal MD Primary Care Prov ider Reason for Visit * Reason Onset Date Comments Med Refill 02/28/2023 Encounter Details Date Type Department Care Team (Late st Contact Info) Description 02/28/[address] [facility] MEDICINE [address] [place] [address] Braulio Carbajal MD [address] [place] [phone] Mixed hyperlipidemia; Primary hypertension; Type 2 diabetes [...] (CMS/HCC) documented in this encounter Care Teams Geothermal System Installer Relationship Specialty Start Date End Date Braulio Carbajal MD [address] [place] [phone] PCP - General Internal Medicine 12/14/19 04/28/24 documented as of this encounter
--- OUTSIDE RECORDS SUMMARY | 2024-11-17 14:11 | XMS_ITS | Continuity of Care Document ---
Author Organization [facility] Address [address] [place] [address] Phone [phone] Social History Type Date Description Comments Sex Unknown Medical Devices Description No Information Available Encounters Description No Information Available Assessments Description No Information Available Plan of Treatment No Information Available Functional Status Description No Information Available Mental Status Description No Information Available Referrals Description No Information Available
--- OUTSIDE RECORDS SUMMARY | 2024-11-17 14:11 | XMS_ITS | Encounter Summary ---
Author Organization [employer] Address [address] [facility] [address] [place] [address] Care Team Providers Care Medtronics Technician Name Role Phone Unavailable Primary Care Provider Unavailabl e Reason for Visit * Reason Comments Med Refill Encounter Details Date Type Department Care Team ([facility] st Contact Info) Description 11/02/[address] [facility] CHC MED & PEDS [address] [place] [address] Braulio Carbajal MD [address] [place] [address] Social History Tobacco Use Types Packs/Day Years [...]
--- OUTSIDE RECORDS SUMMARY | 2024-11-17 14:11 | XMS_ITS | Encounter Summary ---
Author Organization Event [employer] [facility] Address [address] [facility] 7t [place] [address] Care Team Providers Care Life Skills Consultant Name Role Phone Unavailable Primary Care Provider Unavailabl e Encounter Details Date Type Department Care Team ([facility] st Contact Info) Description 11/17/2024 Orders Only GENERIC EXTERNAL DATA DEPARTMENT Provider, Generic External Data Social History Tobacco Use Types Packs/Day Years Used Date Smoking Tobacco: Never Passive Smoke Exposure: Never Smokeless Tobacco: Never Alcohol Use Standard Drinks/Week Comments Never 0 (1 standard drink = 0.6 oz pur e alcohol) Housing Stability Answer Date Recorded What is your housing situation today? I have lara dacia 05/22/[address] you li [...] WHOLE BLOOD Routine 11/17/2024 11:39 AM EDT documented in this encounter Results * (ABNORMAL) Glucose, Whole Blood (11/17/2024 11:39 AM EDT) Glucose, Whole Blood 239(H) 60 - 115 mg/dL [facility] Comment:METER #: [id number] Testing performed in the Endocrinology Department [address] , [address], [place]. 11/17/2024 11:3 9 AM EDT 11/17/2024 11:43 AM EDT us Generic External Data Provider LAB BLOOD ORDERAB LES Final Result [facility] [address] [place] [address] [phone] documented in this encounter Visit Diagnoses Not on filedocumented in this encounter
--- OUTSIDE RECORDS SUMMARY | 2024-11-17 14:11 | XMS_ITS | Encounter Summary ---
Author Organization [employer] [facility] Address [address] [place] [address] [address], [place] [address] Care Team Providers Care Perfusionist Name Role Phone Braulio Carbajal MD Primary Care Prov ider Reason for Visit * Reason Comments Med Refill Encounter Details Date Type Department Care Team (Late st Contact Info) Description 10/29/2022 Refill [facility] [address] [place], [place] [phone] Braulio Carbajal MD [address] [place] [address] Social History Tobacco Use Types Packs/Day Years [...] on filedocumented in this encounter Care Teams Perfusionist Relationship Specialty Start Date End Date Braulio Carbajal MD [address] [place] [address] PCP - General Internal Medicine 12/14/19 04/28/24 documented as of this encounter
--- OUTSIDE RECORDS SUMMARY | 2024-11-17 14:11 | XMS_ITS | Encounter Summary ---
Author Organization [employer] [facility] Address [address] [place] [address] Care Team Providers Care Staking Press Operator Name Role Phone Braulio Carbajal MD Primary Care Prov ider Reason for Visit * Reason Onset Date Comments Med Refill 02/28/2023 Encounter Details Date Type Department Care Team ([facility] st Contact Info) Description 02/28/2023 Refill [facility] CHC MED & PEDS [address] [place] [address] Braulio Carbajal MD [address] [place] [address] Social History Tobacco Use Types Packs/Day Years [...] on filedocumented in this encounter Care Teams Staking Press Operator Relationship Specialty Start Date End Date Braulio Carbajal MD [address] [place] [address] PCP - General Internal Medicine 12/14/19 04/28/24 documented as of this encounter
--- OUTSIDE RECORDS SUMMARY | 2024-11-17 14:11 | XMS_ITS | Clinical Summary ---
Author Organization [facility] Address [address] [place] [address] Care Team Providers Care Public Transit Trolley Driver Name Role Phone Braulio Lopez Primary Care Provider [phone] Allergies Active Allergy Reactions Criticality Noted Date [...] Influenza Vaccine (Season Ended) 2025 Pneumococcal Vaccine: Peds ( 0 to 5 Years) and At-Risk Patients (6 to 49 Years) Aged Out No longer eligible b ased on patient's age to complete this topic Care Teams Public Transit Trolley Driver Relationship Specialty Start Date End Date Braulio Lopez PCP - General Internal Medicine 02/01/22
--- OUTSIDE RECORDS SUMMARY | 2024-11-17 14:11 | XMS_ITS | Encounter Summary ---
Author Organization [employer] [facility] Address [address] [place] [address] [address] [address] Care Team Providers Care Frame Hand Name Role Phone Braulio Carbajal MD Primary Care Prov ider Reason for Visit * Reason Comments Med Refill Encounter Details Date Type Department Care Team (Late st Contact Info) Description 10/29/2022 Refill [facility] [address] [place], [place] [phone] Braulio Carbajal MD [address] [place] [address] Social History Tobacco Use Types Packs/Day Years [...] on filedocumented in this encounter Care Teams Frame Hand Relationship Specialty Start Date End Date Braulio Carbajal MD [address] [place] [address] PCP - General Internal Medicine 12/14/19 04/28/24 documented as of this encounter
== END 2024-11-17 12:13 | disposition home or self-care (01) ==
LOC: HO.ENCR 11:26
PROVIDERS: PCP Internal Medicine; Visit Provider Physician Assistant Medical
DX: E11.319 Type 2 diabetes mellitus with unspecified diabetic retinopathy without macular edema (principal)

== ENCOUNTER → 2024-11-17 11:26 | Outpatient (BNVA) | payer OTHER, SELFPAY | PROVIDERS: PCP Internal Medicine; Visit Provider Physician Assistant Medical | DX: E11.319 Type 2 diabetes mellitus with unspecified diabetic retinopathy without macular edema (principal); E78.5 Hyperlipidemia, unspecified; E66.01 Morbid (severe) obesity due to excess calories; I10 Essential (primary) hypertension; Z68.43 Body mass index [BMI] 50.0-59.9, adult | CPT/HCPCS: 82947 ==

== ENCOUNTER → 2024-11-25 08:17 | Outpatient (AMB) | payer OTHER, SELFPAY ==
--- NOTE | 2024-11-25 08:00 | A.OFFWM_ITS ---
Intake Intake Visit Reasons: VIDEO OP Therapy Allergies Penicillins Allergy (Intermediate, Verified 11/17/24 11:32) Shortness of Breath pt states no food allergies Allergy (Unknown, Uncoded 11/17/24 11:32) Unknown [facility] Medical History (Updated 11/17/24 @ 12:28 by IDALMIS Cortes) Type 2 diabetes mellitus with retinopathy Asthma Insomnia Neuropathy Breast calcification, right Adenocarcinoma determined by biopsy of liver Diabetic retinopathy Anxiety and depression GERD (gastroesophageal reflux disease) SOLE on CPAP ADHD Hyperlipidemia HTN (hypertension) with goal to be determined Diabetes mellitus Morbid obesity Surgical History Hx of LASIK History of cholecystectomy Family History Mother Diabetes Heart problem Father Hypertension Maternal Grandmother Primary cancer of bone marrow Maternal Grandfather Prostate cancer Social History Are you a primary career resource specialist to a significant other at home: No Do you presently have visiting nurse or other home services: No Alcohol intake: never Patient Tobacco Use Status: Never used Tobacco Female Reproductive History Menstrual Age of Menarche: 13 Behavioral Health Assessment Weight Management Therapy Therapy Notes Details Subjective: The patient reports ongoing frustration, which manifests as episodes of anger and irritability. This week, she experienced several emotional triggers, including being denied time off at work, car troubles, and unresolved grief rel ated to multiple significant losses (a cousin and grandmother in 2016, her mother in 2019, and her dog in 2021). She also noted that she is living alone for the first time, which has contributed to feelings of loneliness. The patient explored reasons for difficulty asking for help and expressing emotions, connecting this to past life experiences. She shared that she currently feels isolated and lacks a supportive network. Objective: The patient attended a follow-up session via Telehealth. Interventions during the session included: * Reflective listening * Discussion of daily functioning, current challenges, and needs * Use of Cognitive Processing Therapy (CPT) techniques * Implementation of problem-solving strategies * Validation and normalization of emotional experiences Assessment/Response: * Mental status: The patient appeared tearful and expressed feelings of sadness and loneliness, with symptoms suggestive of depression. * Risk reported/identified: None. Assessment & Plan Assessment & Plan (1) ADHD: Code(s): F90.9 - Attention-deficit hyperactivity disorder, unspecified type Qualifiers: Attention deficit-hyperactivity disorder type: combined inattentive- hyperactive Qualified Code(s): F90.2 - Attention-deficit hyperactivity disorder, combined type (2) Panic disorder: Code(s): F41.0 - Panic disorder [episodic paroxysmal anxiety] (3) Depression, unspecified: Code(s): F32.A - Depression, unspecified Plan The patient will follow up in two weeks, with the next appointment scheduled for December 08, 2024, at 8:00 AM via Telehealth. In the interim, the focus will be on exploring strategies to build social support and process unresolved grief. Interventions will continue to reinforce emotional expression and encourage help-seeking behaviors. The patient?s mood symptoms will be closely monitored, and any changes in emotional state or potential risk will be assessed as needed. Telehealth Telehealth Telehealth Platform: [employer] Location of provider rendering services: practice address Location of patient: address on file Patient Identification confirmed using: Name, : Yes Telehealth method: video Patient verbally consented to treatment: Yes Patient verbally consented to billing insurance company: Yes Patient informed of any privacy concerns related to visit: Yes Minutes spent on Phone/Video with Pt.: 75 Coding Level of Care Code Established Pt Tele Psytx >53 mins ([id number]) Patient Type Established Diagnoses Attention deficit hyperactivity disorder (ADHD), combined type F90.2 Attention deficit-hyperactivity disorder type: combined inattentive- hyperactive Panic disorder F41.0 Depression, unspecified F32.A Time Spent (min) 75 Comment A longer session was medically necessary to address the client's complex symptoms.
--- OUTSIDE RECORDS SUMMARY | 2024-11-25 08:31 | XMS_ITS | Encounter Summary ---
Author Organization [employer] Address [address] [facility] 7t [place] [address] Care Team Providers Care Director Of Undergraduate Admissions Name Role Phone Unavailable Primary Care Provider Unavailabl e Reason for Visit * Reason Comments Med Refill Encounter Details Date Type Department Care Team ([facility] st Contact Info) Description 10/19/2024 Refill [facility] CHC MED & PEDS [address] [place] [address] Braulio Carbajal MD [address] [place] [address] Social History Tobacco Use Types Packs/Day Years [...]
--- OUTSIDE RECORDS SUMMARY | 2024-11-25 08:31 | XMS_ITS | Encounter Summary ---
Author Organization [employer] Address [address] [facility] 7t [place] [address] Care Team Providers Care Marketing Automation Specialist Name Role Phone Unavailable Primary Care Provider Unavailabl e Reason for Visit * Reason Comments Med Refill Encounter Details Date Type Department Care Team ([facility] st Contact Info) Description 10/13/2024 Refill [facility] CHC MED & PEDS [address] [place] [address] Braulio Carbajal MD [address] [place] [address] Primary hypertension Social History Tobacco Use Types [...] the past 12 months, has t he [employer], gas, oil or water company threatened to [...]
--- OUTSIDE RECORDS SUMMARY | 2024-11-25 08:31 | XMS_ITS | Clinical Summary ---
Author Organization [facility] Address [address] [place] [address] Phone Care Team Providers Care Waiter/Waitress Cabin Class Name Role Phone Braulio Carbajal Primary Care [...] type 08/16/2014 Sleep apnea 06/28/2014 Morbid obesity ([facility] V24, [facility] V28) 2013 Overview (05/22/2024): BMI 52.25 on 06/05/13. Condition not found 06/05/2013 Overview (05/22/2024): Diabetes mellitus type II, uncontrolled Depression 04/05/2012 Encounters Date Type Department Care Team Description 09/14/2024 9:30 AM EST Nutrition Bariatric Surgery - [address] [place] [address] Class 3 severe obesity with serious comorbidity and body mass index (BMI) of 50.0 to 59.9 in adult, unspecified obesity type ([facility] V24, [facility] V28) (Primary Dx) from Last 3 Months Immunizations Name Administration Dates Next Due Tdap Tetanus diptheria acell ular pertussis (Boostrix; Adacel) 7yo and older 12/11/2012 Surgical History Surgery Date Site/Laterality Comments CHOLECYSTECTOMY 1999 PROCEDURE: HISTORICAL CHOLECYSTECTOMY Medical History Medical History Date Comments HTN (hypertension) 2011 DX:HTN (hyper tension) DM (diabetes mellitus) ([facility] V24, [facility] V28) 2006 DX:DM (diabetes mellitus) (H CC) [...] Routine 07/20/2024 8:33 AM EST Morbid obesity ([facility]/HCC V24, [facility] V28) HEMOGLOBIN A1C Routine 07/20/2024 8:33 AM EST Morbid obesity ([facility] V24, [facility] V28) LIPID PANEL WITH REFLEX TO DIRECT LDL Routine 07/20/2024 8:33 AM EST Morbid obesity ([facility] V24, [facility] V28) HM URINE ALBUMIN CREATININE RATIO Routine [...] mg/dL LAB CHEMISTRY METHOD 07/20/2024 11:24 AM [facility] Non HDL Chol. (LDL+VLDL) 126 <145 mg/dL LAB CHEMISTRY METHOD 07/20/2024 11:24 AM EST [facility] Chol/HDL Ratio 3.4 0.0 - 4.4 LAB CHEMISTRY METHOD 07/20/2024 11:24 AM [facility] Blood Venous blood specimen / Unknown Venipuncture / Unknown 07/20/2024 8:33 AM EST 07/20/2024 8:33 AM EST us Gosia Stoner MD LAB BLOOD ORDERABLES Fi nal Result Performing Organization Address City/[facility]/ZIP Co de Phone Number [facility] [address] [place] [address], * (ABNORMAL) Hemoglobin A1c (07/20/2024 8:33 AM [...] nal Result [facility] [address] [place] [address], * (ABNORMAL) Comprehensive metabolic panel (07/20/2024 8:33 AM EST) Sodium 136 133 - 145 mmol/L LAB CHEMISTRY METHOD 07/20/2024 11:24 AM [facility] Potassium 4.5 3.5 - 5.5 mmol/L LAB CHEMISTRY METHOD 07/20/2024 11:24 AM [facility] Chloride 100 96 - 110 mmol/L LAB CHEMISTRY METHOD 07/20/2024 11:24 AM [facility] CO2 25 21 - 32 mmol/L LAB CHEMISTRY METHOD 07/20/2024 11:24 AM [facility] Anion Gap 11 3 - 11 LAB CHEMISTRY METHOD 07/20/2024 11:24 AM [facility] Glucose 148(H) 70 - 100 mg/dL LAB CHEMISTRY METHOD 07/20/2024 11:24 AM [facility] BUN 15 5 - 25 mg/dL LAB CHEMISTRY METHOD 07/20/2024 11:24 AM [facility] Creatinine 0.71 0.50 - 1.10 mg/dL LAB CHEMISTRY METHOD 07/20/2024 11:24 AM [facility] eGFR 105 >=60 mL/min/1. 73m2 LAB CHEMISTRY METHOD 07/20/2024 11:24 AM [facility] Comment:Calculation based on the??Chronic Kidney Disease Epidemiology Collaboration (CKD-EPI) equation refit??without adjustment for race. BUN/Creatinine Ratio 21.1 LAB CHEMISTRY METHOD 07/20/2024 11:24 AM [facility] Calcium 9.7 8.5 - 10.5 mg/dL LAB CHEMISTRY METHOD 07/20/2024 11:24 AM [facility] AST (SGOT) 16 10 - 42 unit/L LAB CHEMISTRY METHOD 07/20/2024 11:24 AM [facility] ALT (SGPT) 29 10 - 60 unit/L LAB CHEMISTRY METHOD 07/20/2024 11:24 AM EST [facility] Alkaline Phosphatase 124(H) 42 - 121 unit/L LAB CHEMISTRY METHOD 07/20/2024 11:24 AM [facility] Total Protein 7.7 6.0 - 8.0 g/dL LAB CHEMISTRY METHOD 07/20/2024 11:24 AM EST [facility] Albumin 3.6 3.2 - 5.0 g/dL LAB CHEMISTRY METHOD 07/20/2024 11:24 AM [facility] Total Bilirubin 0.4 0.0 - 1.4 mg/dL LAB CHEMISTRY METHOD 07/20/2024 11:24 AM [facility] Blood Venous blood specimen / Unknown Venipuncture / Unknown 07/20/2024 8:33 AM EST 07/20/2024 8:33 AM EST Gosia Stoner MD LAB BLOOD ORDERABLES Fi nal Result [facility] [address] [place] [address], * Urine Albumin Creatinine Ratio (02/26/2014) Urine Albumin Creatinine Ratio Abstracted Historical Provider HEALTH MAINTENANCE Final Result from Last 3 Months or Most Recently Relevant to Health Maintenance Insurance [employer] Care Teams Waiter/Waitress Cabin Class Relationship Specialty Start Date End Date Braulio Carbajal [address] [place], [place] PCP - General Internal Medicine 03/20/22
--- OUTSIDE RECORDS SUMMARY | 2024-11-25 08:32 | XMS_ITS | Encounter Summary ---
Author Organization [email or web address] [facility] Address [address] [place] [address] [address] [address] Care Team Providers Care Ammunition Officer Name Role Phone Braulio Carbajal MD Primary Care Prov ider Reason for Visit * Reason Comments Med Refill Encounter Details Date Type Department Care Team (Late st Contact Info) Description 10/29/2022 Refill [facility] MEDICINE [address] [place], [place] [phone] Braulio Carbajal MD [address] [place] [address] Social History Tobacco Use Types Packs/Day Years [...] on filedocumented in this encounter Care Teams Ammunition Officer Relationship Specialty Start Date End Date Braulio Carbajal MD [address] [place] [address] PCP - General Internal Medicine 12/14/19 04/28/24 documented as of this encounter
--- OUTSIDE RECORDS SUMMARY | 2024-11-25 08:32 | XMS_ITS | Encounter Summary ---
Author Organization [employer] Address [address] [facility] 7 [place] [address] Care Team Providers Care Mixing Engineer Name Role Phone Braulio Carbajal MD Primary Care Prov ider Reason for Visit * Reason Onset Date Comments Med Refill 02/28/2023 Encounter Details Date Type Department Care Team (Late st Contact Info) Description 02/28/2023 Refill [facility] MEDICINE [address] [place] [address] Braulio Carbajal MD [address] [place] [address] Mixed hyperlipidemia; Primary hypertension; Type 2 diabetes [...] (CMS/HCC) documented in this encounter Care Teams Mixing Engineer Relationship Specialty Start Date End Date Braulio Carbajal MD [address] [place] [address] PCP - General Internal Medicine 12/14/19 04/28/24 documented as of this encounter
--- OUTSIDE RECORDS SUMMARY | 2024-11-25 08:32 | XMS_ITS | Encounter Summary ---
Author Organization [employer] [facility] Address [address] [place] [address], [place] [address] Care Team Providers Care Fine Arts Teacher Name Role Phone Braulio Carbajal MD Primary Care Prov ider Reason for Visit * Reason Comments Med Refill Encounter Details Date Type Department Care Team (Late st Contact Info) Description 10/29/2022 Refill [facility] MEDICINE [address] [place], [place] [phone] Braulio Carbajal MD [address] [place] [address] Social History Tobacco Use Types Packs/Day Years [...] on filedocumented in this encounter Care Teams Fine Arts Teacher Relationship Specialty Start Date End Date Braulio Carbajal MD [address] [place] [address] PCP - General Internal Medicine 12/14/19 04/28/24 documented as of this encounter
--- OUTSIDE RECORDS SUMMARY | 2024-11-25 08:32 | XMS_ITS | Clinical Summary ---
Author Organization [facility] Address [address] [place] [address] Care Team Providers Care Retail Assistant Manager Name Role Phone Braulio Lopez MD Primary Care Provider [phone] Allergies Active Allergy Reactions Criticality Noted Date [...] age to complete this topic Care Teams Retail Assistant Manager Relationship Specialty Start Date End Date Braulio Lopez MD [address] [place] [phone] PCP - General Internal Medicine 03/20/22
--- OUTSIDE RECORDS SUMMARY | 2024-11-25 08:32 | XMS_ITS | Clinical Summary ---
Author Organization [employer] [facility] Address [address] [place] [address] 7t [place] [address] Care Team Providers Care Road Grader Operator Name Role Phone Unavailable Primary Care [...] 2 diabetes mellitus without complication, unspecified whether termite control representative insulin use ([facility]) Inject 1.5 mg under the skin [...] Provider, Generic External Data 11/02/2024 Refill [facility] [address] [place] [address] Braulio Carbajal MD 10/19/2024 Refill [facility] [address] [place] [address] Braulio Carbajal MD 10/13/2024 Refill [facility] [address] [place] [address] Braulio Carbajal MD Primary hypertension from Last [...] 2 diabetes mellitus without complication, unspecified whether alf insulin use ([facility]) ZZZ HISTORICAL HEPATITIS C AB W/REFL TO [...] Whole Blood 239(H) 60 - 115 mg/dL [facility] Comment:METER #: [id number] Testing performed in the Endocrinology Department [address] , [address], [place]. 11/17/2024 11:3 9 AM EDT 11/17/2024 11:43 AM EDT us Generic External Data Provider LAB BLOOD ORDERAB LES Final Result [facility] [address] [place] [address] [phone] * BI Mammogram Diagnostic Tomosynthesis Bilateral (05/25/2024 1:00 PM EDT) Anatomical Region Laterality Modality Breast Bilateral Mammography 05/25/2024 1:00 PM EDT Narrative 05/25/2024 4:12 PM EDT ? [facility] ? [address] [facility] ?[place] [address] ? Mammography Report ? Signed ? Patient: López,Glorymar ?MR#: [id number] ?? [id number] ? : 1975 ?Acct:[id number] ? Age/Sex: 48 / F ?ADM Date: 10/21/24 ? Loc: HO.MAMMO ? Attending Dr: Ryan Prescott MD ? Ordering Physician: Ryan Prescott MD ?Results: 2Ben ?? ign Findings ? Date of Service: 05/25/24 ?Follow Up: 1 Year From Orig ?? inal Mammogram ? Procedure(s): MM tomosynthesis diagnostic BI ?? Accession Number(s): [id number] ? cc: Braulio Carbajal MD; Ryan Prescott [...] DD/ 1300 ? TD/TT: 05/25/24 1350 ? Film Librarian: ? Procedure Note Tari, Image - 05/25/2024 [facility] [address] [place] [address] [place] [address] Mammography Report Signed Patient: Yana López#: [id number] : 1975Acct:[id number] Age/Sex: 48 / FADM Date: 05/25/24 Loc: HO.MAMMO Attending Dr: Ryan Prescott MD Ordering Physician: Ryan Prescott MDResults: 2Ben ign Findings Date of Service: 05/25/24Follow Up: 1 Year From Orig inal Mammogram Procedure(s): MM tomosynthesis diagnostic BI Accession Number(s): [id number] cc: Braulio Carbajal MD; Ryan Prescott MD [...] 05/25/24 1609 DD/ 1300 TD/TT: 05/25/24 1350 Film Librarian: [facility] External Provider IMG BI PROCEDURES Edited Result - Final * Lipid Panel, Standard (01/01/2023 10:20 AM EDT) Triglycerides 73 mg/dL [facility] Comment:Desirable Triglyceri de: less than 150 mg/dLBorderline High Triglyceride 150-199 mg/dLHigh Triglyceride: 200-499 mg/dLVery High Triglyceride: greater than or equal to 5OO mg/dL Cholesterol 101 mg/dL [facility] Comment:Desirable Cholestero l: less than 200 mg/dLBorderline High Cholesterol: 200-239 mg/dLHigh Cholesterol: greater than 239 mg/dL LDL Cholesterol Calculated 53 mg/dl [facility] Comment:Desirable LDL: less than 100 mg/dLNear [...] 0 AM EDT 01/01/2023 10:20 AM EDT [facility] External Provider LAB BLO OD ORDERABLES Final Result [facility] [address] [place] [phone] * HEPATITIS C AB W/REFL TO [...] a test for HCV RNA (test code 86396) is suggested. ?? For additional information please refer to http://Cellrox.Amiato/faq/VFT76w4 (This link is being provided for informational/ educational purposes only.) ?? 01/24/2022 8:19 AM EDT Braulio Campbell MD HISTORICAL/NON ORD ERABLE LABS Final Result [facility] [address] * HIV 1/2 ANTIGEN/ANTIBODY,FOURTH GENERATION W/RFL [...] ? For additional information please refer to http://Cellrox.Amiato/faq/LMR104 (This link is being provided for informational/ educational purposes only.) ? The performance of this assay has not been clinically validated in patients less than 2 years old. ?? 01/24/2022 8:19 AM EDT us Braulio Campbell MD LAB BLOOD ORDERABL ES Final Result [facility] [address] [place] [address], from Last 3 Months or Most Recently Relevant to Health Maintenance Insurance [employer] [place] [phone]
--- OUTSIDE RECORDS SUMMARY | 2024-11-25 08:32 | XMS_ITS | Clinical Summary ---
Author Organization [facility] Address [address] [place] [address] Care Team Providers Care Medical Assistant Per Diem Name Role Phone Braulio Lopez Primary Care Provider [phone] Allergies Active Allergy Reactions Criticality Noted Date [...] age to complete this topic Care Teams Medical Assistant Per Diem Relationship Specialty Start Date End Date Braulio Lopez PCP - General Internal Medicine 02/01/22
--- OUTSIDE RECORDS SUMMARY | 2024-11-25 08:32 | XMS_ITS | Continuity of Care Document ---
Author Organization [facility] Address [address] [address] [place] [address] Phone [phone] Social History Type Date Description Comments Sex Unknown Medical Devices Description No Information Available Encounters Description No Information Available Assessments Description No Information Available Plan of Treatment No Information Available Functional Status Description No Information Available Mental Status Description No Information Available Referrals Description No Information Available
--- OUTSIDE RECORDS SUMMARY | 2024-11-25 08:32 | XMS_ITS | Encounter Summary ---
Author Organization [employer] Address [address] [facility] 7[address] [place] [address] Care Team Providers Care Design Assembler Name Role Phone Unavailable Primary Care Provider Unavailabl e Reason for Visit * Reason Comments Med Refill Encounter Details Date Type Department Care Team ([facility] st Contact Info) Description 11/02/2024 Refill [facility] [address] [place] [address] Braulio Carbajal MD [address] [place] [address] Social History Tobacco Use Types Packs/Day Years [...]
--- OUTSIDE RECORDS SUMMARY | 2024-11-25 08:32 | XMS_ITS | Encounter Summary ---
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 ([facility]) (Primary Dx) Social History [...] 2 diabetes mellitus without complication, unspecified whether usp insulin use (CMS/HCC) HEMATOXYLIN AND EOSIN STAIN Routine 01/09/2023 8:38 AM EDT Type 2 diabetes mellitus without complication, 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 (CMS/HCC) COVID-19 ID NOW (DUPREE) Routine 01/08/2023 2:18 PM EDT Type 2 diabetes mellitus without complication, 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 (CMS/HCC) TYPE AND SCREEN Routine 01/01/2023 10:22 AM EDT Type 2 diabetes mellitus without complication, 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 (CMS/HCC) VITAMIN D,25-OH,TOTAL,IA Routine 01/01/2023 10:20 AM EDT Type 2 diabetes mellitus without complication, unspecified whether usp insulin use (CMS/HCC) TSH W/REFLEX TO FT4 Routine 01/01/2023 1 0:20 AM EDT Type 2 diabetes mellitus without complication, 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 (CMS/HCC) CBC WITH AUTO DIFFERENTIAL Routine 01/01/2023 10:20 AM EDT Type 2 diabetes mellitus without complication, 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 (CMS/HCC) ZINC Routine 01/01/2023 10:20 AM EDT Type 2 diabetes mellitus without complication, unspecified whether usp insulin use (CMS/HCC) VITAMIN A Routine 01/01/2023 10:20 AM EDT Type 2 diabetes mellitus without complication, unspecified whether usp insulin use (CMS/HCC) APTT Routine 01/01/2023 10:20 AM EDT Type 2 diabetes mellitus without complication, unspecified whether usp insulin use (CMS/HCC) PROTHROMBIN TIME-INR Routine 01/01/2023 10:20 AM EDT Type 2 diabetes mellitus without complication, unspecified whether usp insulin use (CMS/HCC) C-REACTIVE PROTEIN Routine 01/01/2023 10 :20 AM EDT Type 2 diabetes mellitus without complication, unspecified whether usp insulin use (CMS/HCC) VITAMIN B1 Routine 01/01/2023 10:20 AM EDT Type 2 diabetes mellitus without complication, unspecified whether usp insulin use (CMS/HCC) PTH, INTACT WITHOUT CALCIUM Routine 01/01/2023 10:20 AM EDT Type 2 diabetes mellitus without complication, 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 (CMS/HCC) HEMOGLOBIN A1C Routine 01/01/2023 10:20 AM EDT Type 2 diabetes mellitus without complication, unspecified whether usp insulin use (CMS/HCC) FERRITIN Routine 01/01/2023 10:20 AM EDT Type 2 diabetes mellitus without complication, unspecified whether usp insulin use (CMS/HCC) VITAMIN B12 Routine 01/01/2023 10:20 AM EDT Type 2 diabetes mellitus without complication, unspecified whether usp insulin use (CMS/HCC) LIPID PANEL, STANDARD Routine 01/01/2023 10:20 AM EDT Type 2 diabetes mellitus without complication, 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 (CMS/HCC) COMPREHENSIVE METABOLIC PANEL Routine 01/01/2023 10:20 AM EDT Type 2 diabetes mellitus without complication, unspecified whether usp insulin use (CMS/HCC) GLUCOSE, WHOLE BLOOD Routine 11/13/2022 1:31 PM EDT Type 2 diabetes mellitus without complication, 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 In the low range for thisassay (< [...] or absence of disease.THIS TEST WAS PERFORMED AT:[employer] [place] [id number] LONDONO MD 01/09/2023 10:3 8 AM EDT 01/09/2023 10:42 AM EDT [facility] External Provider LAB BLO OD ORDERABLES Final Result [facility] [address] [place] [phone] * Hematoxylin and Eosin Stain (01/09/2023 8:38 AM EDT) 01/09/2023 8:38 AM EDT 01/09/2023 8:53 AM EDT Narrative [facility] - 01/14/2023 1:28 PM EDT ----- ------- Name: Julia López ? Age/Sex: 47/F ? : 1975 Unit#: [id number] ?? Attend Dr: Darci Sanders MD ?Re01/09/23 ?Status: DEP SDC ? Location: HO.SSS ?Disch: ? ----- ------- SPEC : [id number] ? RECD: 01/09/23 ? STATUS: ??SOUT ? REQ NUM: [id number] ? PUSHPA: 01/09/23 ? SUBM DR: Darci [...] ? Age/Sex: 47/F ? : 1975 Unit#: [id number] ?? Attend Dr: Darci Sanders MD ?Re01/09/23 ?Status: DEP SDC ? Location: HO.SSS ?Disch: ? ----- ------- SPEC : [id number] ? RECD: 01/09/23 ? STATUS: ??SOUT ? REQ NUM: [id number] ? PUSHPA: 01/09/23 ? SUBM DR: Darci [...] ?? [address] ?? [place] [address] ?? [phone] ?? Darci Sanders MD ?? [address] [place] [address], [address] ?? [place] [address] ?? [phone] ----- ------- Signed (signature on file) Shaun Lebron MD 01/14/23 1328 ? ----- ------- ? END OF REPORT ? us [facility] External Provider LAB BLO OD ORDERABLES Final Result [facility] [address] [place] [address] [phone] * COVID-19 ID NOW ([employer]) (01/08/2023 2:18 PM EDT) IDNOW SERIAL# [id number] [facility] COVID-19 TEST Negative Negative [facility] COVID-19 NOTE See Note [facility] Comment: Results are for the identification of SARS-CoV2 RNA. TheSARS-CoV2 RNA is generally detectable in respiratory samplesduring the acute phase of infection. Positive results areindicative of the presence of SARS-CoV-2 RNA; clinicalcorrelation with patient history and other diagnosticinformation is necessary to determine patient infectionstatus. Positive results do not rule out bacterial infectionor co- infection with other viruses.Testing facilities [facility] the [facility] and itsterritories are required to report [...] 2:18 PM EDT 01/08/2023 2:32 PM EDT [facility] Exter nal Provider LAB MOLECULAR DIAGNOSTICS ORDERABLES Final Result Performing Organization Address [facility]/ZIP Co de Phone Number [facility] [address] [place] [phone] * Type and screen (01/01/2023 10:22 AM EDT) Blood Type OP [facility] Antibody Screen NEGATIVE [facility] 01/01/2023 10:2 2 AM EDT 01/01/2023 11:04 AM EDT Narrative [facility] - 01/01/2023 11:55 AM EDT Spec expiration changed by JAMESON on 01/01/23Reason: For SURGERYNURSING:Call Blood Bank (ext. [phone]) to band patient on admission.Type and Screen in effect until 2300 on 01/09/23Witnessed by EDELMIRA [facility] External Provider LAB BLO OD BANK TEST ORDERABLES Final Result Performing Organization Address [facility] Co de Phone Number [facility] [address] [place] [phone] * (ABNORMAL) Vitamin A (01/01/2023 10:20 AM EDT) Vitamin A (Retinol) 32(A) 38 - 98 mcg/dL [facility] Comment:Vitamin supplementat ion within 24 hours prior toblood draw may affect the accuracy of the results.This test was developed and its analytical performancecharacteristics have been determined by [employer] [place]. It hasnot been cleared or approved by the U.S. Food and DrugAdministration. This assay has been validated pursuantto the CLIA regulations and is used for clinicalpurposes.THIS TEST WAS PERFORMED AT:[employer] [id number] [place] [address]KMPDJVNNICOLA BARRY MD,PHD 01/01/2023 10:2 0 AM EDT 01/01/2023 10:20 AM EDT [facility] External Provider LAB BLO OD ORDERABLES Final Result Performing Organization Address [facility] Co de Phone Number [facility] [address] [place] [phone] * (ABNORMAL) Vitamin B1 (01/01/2023 10:20 AM EDT) Vitamin B1 <6(A) 8 - 30 nmol/L [facility] Comment:Vitamin supplementat ion within 24 hours prior toblood draw may affect the accuracy of the results.This test was developed and its analytical performancecharacteristics have been determined by [employer] [place], [place]. It hasnot been cleared or approved by the U.S. Food and DrugAdministration. This assay has been validated pursuantto the CLIA regulations and is used for clinicalpurposes.THIS TEST WAS PERFORMED AT:[id number] [place] [address]SCGHCPENICOLA BARRY MD,PHD 01/01/2023 10:2 0 AM EDT 01/01/2023 10:20 AM EDT [facility] External Provider LAB BLO OD ORDERABLES Final Result Performing Organization Address [facility] Co de Phone Number [facility] [address] [place] [phone] * Zinc (01/01/2023 10:20 AM EDT) Zinc 84 60 - 130 mcg/dL [facility] Comment:This test was develo ped and its analytical performancecharacteristics have been determined by [employer] [place], [place]. It hasnot been cleared or approved by the U.S. Food and DrugAdministration. This assay has been validated pursuantto the CLIA regulations and is used for clinicalpurposes.THIS TEST WAS PERFORMED AT:[id number] [place] [address]DRXCYFGNICOLA BARRY MD,PHD 01/01/2023 10:2 0 AM EDT 01/01/2023 10:20 AM EDT [facility] External Provider LAB BLO OD ORDERABLES Final Result Performing Organization Address [facility] Co de Phone Number [facility] [address] [place] [address] [phone] * PTH, Intact Without Calcium (01/01/2023 10:20 AM EDT) PTHI 32 16 - 77 pg/mL [facility] Comment:Interpretive Guide I ntact PTH Calcium -------Normal Parathyroid Normal NormalHypoparathyroidism Low or Low Normal LowHyperparathyroidism Primary Normal or High High Secondary High Normal or Low Tertiary High HighNon-Parathyroid Hypercalcemia Low or Low Normal High Calcium (PTHI) 9.9 8.6 - 10.2 mg/dL [facility] Comment:THIS TEST WAS PERFOR MED AT:[employer] [address] [id number] LONDONO MD 01/01/2023 10:2 0 AM EDT 01/01/2023 10:20 AM EDT [facility] External Provider LAB BLO OD ORDERABLES Final Result Performing Organization Address [facility]/ZIP Co de Phone Number [facility] [address] [place] [phone] * Lipid Panel, Standard (01/01/2023 10:20 AM EDT) Triglycerides 73 mg/dL [facility] Comment:Desirable Triglyceri de: less than 150 mg/dLBorderline High Triglyceride 150-199 mg/dLHigh Triglyceride: 200-499 mg/dLVery High Triglyceride: greater than or equal to 5OO mg/dL Cholesterol 101 mg/dL [facility] Comment:Desirable Cholestero l: less than 200 mg/dLBorderline High Cholesterol: 200-239 mg/dLHigh Cholesterol: greater than 239 mg/dL LDL Cholesterol Calculated 53 mg/dl [facility] Comment:Desirable LDL: less than 100 mg/dLNear Optimal/Above Optimal LDL: 110- 129 mg/dLBorderline High LDL: 130-159 mg/dLHigh LDL: 160-189 mg/dLVery High LDL: greater than or equal to 190 mg/dL HDL Cholesterol 34 mg/dL [facility] Comment:Desirable HDL: great er than 40 mg/dL Note: This HDL assay may give artificially low results in patients with liver disease. 01/01/2023 10:2 0 AM EDT 01/01/2023 10:20 AM EDT [facility] External Provider LAB BLO OD ORDERABLES Final Result Performing Organization Address City/[facility]/ZIP Co de Phone Number [facility] [address] [place] [phone] * (ABNORMAL) C-reactive Protein (01/01/2023 10:20 AM EDT) C Reactive Protein 2.54(H) < or = 0.50 mg/dL [facility] 01/01/2023 10:2 0 AM EDT 01/01/2023 10:20 AM EDT [facility] External Provider LAB BLO OD ORDERABLES Final Result [facility] [address] [place] [address] [phone] * (ABNORMAL) Comprehensive Metabolic Panel (01/01/2023 10:20 AM EDT) Sodium 136 135 - 145 mmol/L [facility] Potassium 4.7 3.3 - 5.1 mmol/L [facility] Chloride 99 96 - 108 mmol/L [facility] Carbon Dioxide 28 22 - 29 mmol/L [facility] Anion Gap 14 12 - 20 [facility] Urea Nitrogen (BUN) 13 9 - 16 mg/dL [facility] Creatinine, Serum 0.80 0.5 - 1.4 mg/dL [facility] Creatinine Clr Calc Pharmacy 134.3 [facility] Comment:Provided height and weight: 175.26 cm,142.882 kg.eGFR (calculated from the MDRD study equation) and eCrCl(calculated from the Cockcroft-Gault equation) are based ondifferent parameters and may not yield comparable results.If eCrCl result is absurd, please check patient'sheight/weight. Estimated Glomerular Filt Rate >60 [facility] Comment:NOTE: For -Am erican individuals, multiply the result by 1.210.Chronic Kidney Disease: Estimated GFR < 60 mL/min/1.84w6Uyfemq Kidney Disease: Estimated GFR < 15 mL/min/1.73m2 Glucose 141(H) 60 - 115 mg/dL [facility] Calcium 10.0 8.4 - 10.2 mg/dL [facility] Bilirubin, Total 0.9 0.0 - 1.0 mg/dL [facility] Aspartate Amino Transferase 18 5 - 31 U/L [facility] Alanine Aminotransferase 14 0 - 31 U/L [facility] Total Protein 7.9 6.5 - 8.0 g/dL [facility] Albumin Level 4.0 3.5 - 5.0 g/dL [facility] Alkaline Phosphatase 85 39 - 117 U/L [facility] 01/01/2023 10:2 0 AM EDT 01/01/2023 10:20 AM EDT [facility] External Provider LAB BLO OD ORDERABLES Final Result Performing Organization Address [facility]/ZIP Co de Phone Number [facility] [address] [place] [phone] * TSH W/Reflex to FT4 (01/01/2023 10:20 AM EDT) TSH reflex Free T4 1.39 0.32 - 4.0 uIU/mL [facility] 01/01/2023 10:2 0 AM EDT 01/01/2023 10:20 AM EDT [facility] External Provider LAB BLO OD ORDERABLES Final Result Performing Organization Address [facility] de Phone Number [facility] [address] [place] [phone] * Vitamin D, 25-Hydroxy, Total, Immunoassay (01/01/2023 10:20 AM EDT) Vitamin D 25-OH Total 23.8 >30 ng/mL [facility] Comment:Health Based Referen ce Values*< 20 ng/mL Xcsdhcbbw49-65 ng/mL Insufficient> 30 ng/mL Sufficient*Nay HASTINGS. N [...] 0 AM EDT 01/01/2023 10:20 AM EDT [facility] External Provider LAB BLO OD ORDERABLES Final Result Performing Organization Address [facility] Co de Phone Number [facility] [address] [place] [phone] * Vitamin B12 (01/01/2023 10:20 AM EDT) Vitamin B12 505 200 - 900 pg/mL [facility] Comment:NORMAL 200-900 PG/ML INDETERMINATE 160-199 PG/ML DEFICIENT < 160 PG/ML 01/01/2023 10:2 0 AM EDT 01/01/2023 10:20 AM EDT [facility] External Provider LAB BLO OD ORDERABLES Final Result Performing Organization Address [facility] Co de Phone Number [facility] [address] [place] [phone] * Ferritin (01/01/2023 10:20 AM EDT) Ferritin 192 10 - 250 ng/mL [facility] 01/01/2023 10:2 0 AM EDT 01/01/2023 10:20 AM EDT [facility] External Provider LAB BLO OD ORDERABLES Final Result Performing Organization Address [facility] Co de Phone Number [facility] [address] [place] [phone] * Hemoglobin A1c (01/01/2023 10:20 AM EDT) Hemoglobin A1c 6.8 % [facility] Comment:Hemoglobin A1C Refer ence Range Adults: 4.8 - 6.0 % Non diabetic: < 6.0 % Goal: < 7.0 %Additional Action Suggested: > 8.0 %Note: Hemoglobin A1c results are invalid for patients with abnormal amounts of HbF. Blood transfusions may impact the HbA1c concentration in the patient sample. Estimated Average Glucose 148 mg/dL [facility] Comment:eAG = Estimated ave rage glucose which is %A1C expressed asaverage glucose, using the formula of the I4S-QdlxnfyYqmcelb Glucose study (ADAG), Diabetes Care, Vol.31,#8,2007 01/01/2023 10:2 0 AM EDT 01/01/2023 10:20 AM EDT [facility] External Provider LAB BLO OD ORDERABLES Final Result Performing Organization Address [facility] de Phone Number [facility] [address] [place] [phone] * APTT (01/01/2023 10:20 AM EDT) Partial Thromboplastin Time 35.0 26.0 - 36.4 SEC [facility] 01/01/2023 10:2 0 AM EDT 01/01/2023 10:20 AM EDT [facility] External Provider LAB BLO OD ORDERABLES Final Result Performing Organization Address [facility] de Phone Number [facility] [address] [place] [phone] * Prothrombin Time-INR (01/01/2023 10:20 AM EDT) Prothrombin Time 12.9 10.0 - 13.1 SEC [facility] INTERNATIONAL NORM RATIO 1.1 0.9 - 1.1 [facility] Comment:INTERNATIONAL NORMAL IZED RATIO [...] AM EDT 01/01/2023 10:20 AM EDT us [facility] External Provider LAB BLO OD ORDERABLES Final Result [facility] [address] [place] [phone] [phone] * (ABNORMAL) CBC auto differential (01/01/2023 10:20 AM EDT) White Blood Count 11.3(H) 4.8 - 10.8 X10*3/uL [facility] Red Blood Count 5.09 4.20 - 5.50 X10*6/uL [facility] Hemoglobin 13.8 12.0 - 16.0 g/dl [facility] Hematocrit 44.1 37.0 - 47.0 % [facility] Mean Corpuscular Volume 86.6 80.0 - 98.0 fL [facility] Mean Corpuscular Hemoglobin 27.1 27.0 - 33.0 pg [facility] Mean Corpuscular HGB Conc 31.3 31.0 - 35.0 g/dl [facility] Red Cell Distribution Width 14.3 11.0 - 16.0 % [facility] Platelet Count 376 160 - 400 X10*3/uL [facility] Mean Platelet Volume 9.2(L) 9.4 - 12.3 fL [facility] Neutrophils Percent Auto 66.0 45 - 73 % [facility] Imm Gran Pct Auto 0.8(H) 0.0 - 0.4 % [facility] Lymphocytes Percent Auto 25.1 20 - 40 % [facility] Monocytes Percent Auto 5.5 2 - 11 % [facility] Eosinophils Percent Auto 2.0 0 - 4 % [facility] Basophils Percent Auto 0.6 0 - 2 % [facility] NRBC Pct Auto 0.0 0.0 - 0.2 /100WBC [facility] Neutrophils Absolute Auto 7.4 2.0 - 8.3 x10*3/uL [facility] Imm Gran Abs Auto 0.09(H) 0.00 - 0.03 X10*3/uL [facility] Lymphocytes Absolute Auto 2.8 1.2 - 4.9 X10*3/uL [facility] Monocytes Absolute Auto 0.6 0.1 - 1.2 X10*3/uL [facility] Eosinophils Absolute Auto 0.2 0.0 - 0.4 X10*3/uL [facility] Basophils Absolute Auto 0.1 0.0 - 0.2 X10*3/uL [facility] NRBC Abs Auto 0.000 0.0 - 0.012 X10*3/uL [facility] 01/01/2023 10:2 0 AM EDT 01/01/2023 10:20 AM EDT [facility] External Provider LAB BLO OD ORDERABLES Final Result Performing Organization Address [facility]/ZIP Co de Phone Number [facility] [address] [place] [phone] * (ABNORMAL) Glucose, Whole Blood (11/13/2022 1:31 PM EDT) Glucose, Whole Blood 196(H) 60 - 115 mg/dL [facility] Comment:METER #: [id number] 5Testing performed in the Endocrinology Department [address] , [address], [facility]. 11/13/2022 1:31 PM EDT 11/13/2022 1:34 PM EDT [facility] External Provider LAB BLO OD ORDERABLES Final Result Performing Organization Address [facility]/ZIP Co de Phone Number [facility] [address] [place] [phone] * Hemoglobin A1c (11/13/2022 1:14 PM EDT) Hemoglobin A1c 7.4 % [facility] Comment:Hemoglobin A1C Refer ence Range Adults: 4.8 - 6.0 % Non diabetic: < 6.0 % Goal: < 7.0 %Additional Action Suggested: > 8.0 %Note: Hemoglobin A1c results are invalid for patients with abnormal amounts of HbF. Blood transfusions may impact the HbA1c concentration in the patient sample. Estimated Average Glucose 166 mg/dL [facility] Comment:eAG = Estimated ave rage glucose which is %A1C expressed asaverage glucose, using the formula of the M2O-PqtsxcmSrtreol Glucose study (ADAG), Diabetes Care, Vol.31,#8,2007 11/13/2022 1:14 PM EDT 11/13/2022 1:14 PM EDT us [facility] External Provider LAB BLO OD ORDERABLES Final Result [facility] [address] [place] [phone] documented in this encounter Visit Diagnoses Diagnosis Type 2 diabetes mellitus without complication, unspecified whether usp insulin use ([facility])- Primary documented in this encounter Care Teams Theatrical Agent Relationship Specialty Start Date End Date Braulio Carbajal MD [address] [place] [phone] PCP - General Internal Medicine 12/14/19 04/28/24 documented as of this encounter
--- OUTSIDE RECORDS SUMMARY | 2024-11-25 08:32 | XMS_ITS | Encounter Summary ---
Author Organization [employer] [facility] Address [address] [place] [phone] Care Team Providers Care Blender Conveyor Operator Name Role Phone Braulio Carbajal MD Primary Care Prov ider Reason for Visit * Reason Onset Date Comments Med Refill 02/28/2023 Encounter Details Date Type Department Care Team ([facility] st Contact Info) Description 02/28/2023 Refill [facility] [address] [place] [address] Braulio Carbajal MD [address] [place] [address] Social History Tobacco Use Types Packs/Day Years [...] on filedocumented in this encounter Care Teams Blender Conveyor Operator Relationship Specialty Start Date End Date Braulio Carbajal MD [address] [place] [address] PCP - General Internal Medicine 12/14/19 04/28/24 documented as of this encounter
--- OUTSIDE RECORDS SUMMARY | 2024-11-25 08:32 | XMS_ITS | Data Portability ---
Author Organization [place] - [facility],, ADRIANA LARA MD Address [address] [address] Assessment No assessment recorded. Plan of Treatment Reminders Order Date Submit Date Provider Last Modified By Organization Details Last Modified Time Details Appointments None recorded. Lab pap test, thinprep, cervical 2021 022 [email or web address] [facility], Cytopathology Service, [address] [place] [address], [address], 2 07:36:24 fecal occult blood, stool 2021 022 [email or web address] In-Office Order, Internal Use Only DO Not Attach Compendium DO Not Attach Compendium, Do Not Delete/merge, [id number] 2 11:34:07 pap test, thinprep, cervical 2020 021 [email or web address] [facility], Cytopathology Service, [address] [place] [address], [address], 1 07:14:16 fecal occult blood, stool 2020 021 [email or web address] 1 In-Office Order, Internal Use Only DO Not Attach Compendium DO Not Attach Compendium, Do Not Delete/merge, [id number] 1 13:58:54 pap test, thinprep, cervical 2019 020 [email or web address] [facility], Cytopathology Service, [address] [place] [address], [address], 0 08:59:10 fecal occult blood, stool 2019 020 [email or web address] In-Office Order, Internal Use Only DO Not Attach Compendium DO Not Attach Compendium, Do Not Delete/merge, [id number] 0 08:59:10 pap test, thinprep, cervical 2018 019 [facility], Cytopathology Service, [address] [place] [address], [address], 9 04:32:23 fecal occult blood, stool 2018 019 [email or web address] In-Office Order, Internal Use Only DO Not Attach Compendium DO Not Attach Compendium, Do Not Delete/merge, [id number] 9 07:31:20 pap test, thinprep, cervical 2014 015 [facility], Cytopathology Service, [address] [place] [address], [address], 5 12:26:29 chlamydia sp, culture, unspecifi ed specimen 2014 015 [facility], Cytopathology Service, [address] [place] [address], [address], 5 08:24:20 NG DNA, PCR, genital 2014 015 [facility], Cytopathology Service, [address] [place] [address], [address], 5 08:24:20 test, urine 2014 015 [email or web address] 1 In-Office Order, Internal Use Only DO Not Attach Compendium DO Not Attach Compendium, Do Not Delete/merge, [id number] 5 11:43:08 Referral None recorded. Procedures None recorded. Surgeries None recorded. Imaging MAMMO, screening , digital, bilateral [address] [facility], [address], [address], [place], [address], 4 07:16:34 MAMMO, screening , digital, bilateral [address] [facility] Orders, [address], [address], [place], [address], 2 07:36:18 MAMMO, screening , digital, bilateral 2019 020 [facility] (Mammography), [address], [place], [address], 1 07:41:40 MAMMO, screening , digital, bilateral [address] [facility] Orders, [address], [place], [address], 0 07:25:26 Medication Orders None recorded. Patient TargetsNo targets recorded. Patient Instructions Encounter Date Encounter Id Patient Instructions Last Modified By Organization Details Last Modified Time 12/07/2014 [id number] She is here for annual exam. Her [...] irregular every 4 to 6 weeks, no [id number] no for 6 weeks, check u preg, [...] in detail. Not available 12/07/2014 11:43:09 09/01/2018 [id number] She is here for annual exam. She has not been here since 2014. She was seeing [facility] infertility but they gave up on theat and put in a Mirena 2 years ago. No menses. Her diabetes has been Bad. In 07/2016 she started a process to do bariatric surgery at [facility]. She went through all the counseling [...] latest A1C was 10, in 06/18, the [facility] infertility referred her to [...] well. 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 She is going back [...] questions answered. Not available 09/01/2018 10:07:54 09/08/2019 [id number] She is here for annual exam, her weight is stable at 367 pounds. Her was in the ICU for 4 weeks due to sepsis, he is better now though. She had a Mirena placed 3 years ago, no menses. note form 2019: She is here for annual exam. She has not been here since 2014. She was seeing [facility] infertility but they gave up on theat and put in a Mirena 2 years ago. No menses. Her diabetes has been Bad. In 07/2016 she started a process to do bariatric surgery at [facility]. She went through all the counseling [...] get the date of IUD insertion at [facility] for us so that [...] detail. rebecca Not available 09/08/2019 15:23:23 04/04/2021 [id number] learning about healthy weight rebecca Not available 04/04/2021 13:58:54 She is here for annual exam, weight is 391 pounds, BMI is 58.6. She had a Mirena inserted 08/2016. No menses. Her mother earlier this year due to natural causes, in [place], she is still grieving. She and her are , she wanted to go to couples counseling but he would only go in [place] and they could not find a [place] speaking counselor. Note from 2019: She is [...] a process to do bariatric surgery at [facility]. She went through all the counseling ,etc, but things fell through the cracks. She is considering going back again. she had weighted more than 400 pounds last year, she lost some weight this past year with diet and exercise but still weighs 366 pounds today. She appears to be doing well. She and I discussed having her go back to [facility] to get back into their weight [...] breast. [email or web address] Not available 04/04/2021 14:00:20 04/17/2022 [id number] learning about healthy weight Not available 04/17/2022 [...] this year due to natural causes, in [place], she is still grieving. She and her are , she wanted to go to couples counseling but he would only go in [place] and they could not find a [place] speaking counselor. She appears to be doing [...] DO Not Attach Compendium, Do Not Delete/merge, [id number] 04/04/2021 13:36:07 02/04/09/08/2019 fecal occul t blood , stool Occult Blood negati ve Not Available In-Office Order Internal Use Only DO Not Attach Compendium DO Not Attach Compendium, Do Not Delete/merge, [id number] 09/08/2019 15:00:26 09/01/19 19 09/01/2018 fecal occul t blood , stool Occult Blood negati ve Not Available In-Office Order Internal Use Only DO Not Attach Compendium DO Not Attach Compendium, Do Not Delete/merge, [id number] 09/01/2018 09:30:38 12/08/19 15 12/07/2014 pregn marshal test, urine HCG negati ve Not Available In-Office Order Internal Use Only DO Not Attach Compendium DO Not Attach Compendium, Do Not Delete/merge, [id number] 12/07/2014 10:52:47 12/08/19 15 12/07/2014 gener [email or web address] se [id number] RESUL TS OF GEN-P ROBE APTIM A COMBO 2 ASSAY Chlam ydia: NEGAT SÁNCHEZ N. gonor rhoea e: NEGAT SÁNCHEZ GENANIRANJAN RIOS M.D., Patho logis t (Case elect martin sy chuy d 12 09 2014) [facility] INFOR MATIO N: LPS NEG SOURC E: ThinP rep Pap for CT/GC Gross Descr iptio n: ThinP rep Vial Recei joanne. Physi JAYSON Russ N /#[phone]/2 [phone] Cytop athol ogy servi carlos provi ded by [facility] at the above addre ss. Not Available [facility], Cytopathology Service [address], [place], [address], 12/09/2014 15:06:31 12/08/19 15 12/07/2014 pap, LB [id number] ThinP rep Pap, Image d: NEGAT SÁNCHEZ [...] at the above addre ss. Not Available [facility], Cytopathology Service [address] [place] [address], [address], 12/14/2014 12:26:29 09/01/19 19 09/01/2018 pap, LB [email or web address] ThinP rep Pap, Image d: NEGAT SÁNCHEZ [...] . LPS 5 NEG, Z12.4 Not Available [facility], Cytopathology Service [address] [place] [address], [address], 09/02/2018 17:26:28 09/08/19 20 09/08/2019 pap, LB [email or web address] ThinP rep Pap, Image d: NEGAT SÁNCHEZ [...] . LPS NEG [Z12. 4] Not Available [facility] Cytopathology Service [address] [place], [address], 09/10/2019 13:06:44 04/04/20 21 04/04/2021 PAP1C ASE [id number] ThinP rep Pap, Image d: NEGAT SÁNCHEZ [...] LPS 0 NEG [Z12. 4] Not Available [facility] Cytopathology Service [address] [place] [address], [address], 04/12/2021 13:55:52 04/17/2004/17/2022 PAP1C ASE [email or web address] ThinP rep Pap, Image d: NEGAT SÁNCHEZ [...] IUD, LPS neg. [z01. 419] Not Available [facility], Cytopathology Service [address] [place] [address], [address], 04/23/2022 08:11:00 04/17/2004/17/2022 fecal occul t blood , stool Occult Blood negati ve Not Available In-Office Order Internal Use Only DO Not Attach Compendium DO Not Attach Compendium, Do Not Delete/merge, [id number] 04/17/2022 10:29:09 Result Notes None recorded. Problems Name Problem SNOMED Code Status Onset Date Resolution Date Notes Provider Name and Address Organization Details Recorded Time Candidal vulvovaginiti s 61732752 Active Not Available [facility] 3 03:01:06 Irritable bowel syndrome 97673871 Active Not Available [facility] 3 03:01:06 Obesity 517830247 Active Not Available [facility] 3 03:01:06 Oligoovulator y dysfunctional uterine bleeding 806835866 Active Adriana Lara MD [address], [place], [address] , [place] - [facility], 5 11:43:08 Uncontrolled type 2 diabetes mellitus 970943632 Active Not Available [facility] 3 03:01:06 Primary female infertility 4209288 Active Not Available [facility] 3 03:01:06 Pruritus of vulva 39475284 Active Not Available [facility] 3 03:01:06 Pain in pelvis 04643046 Active Adriana Lara MD [address], [place], [address] , [place] - [facility], 4 15:07:42 Glycosuria 27732013 Active Adriana Lara MD [address], [place], [address] , [place] - [facility], 4 15:07:42 Problem Notes None recorded. Procedures Surgical History Date Name Laterality Status Provider Name and Address Organization Details Recorded Time 04/05/20 20 Most Recent Mammogram completed Yashira Alonso [place] - [facility], 04/17/2022 10:36:13 08/05/19 Cholecystectomy completed Taryn Beasley [place] - [facility], 11/10/2012 13:22:27 Imaging Results None recorded. Procedure Notes None recorded. Medical Equipment None Reported. Allergies Allergen ID Allergen Name Allergen Category Reaction Reaction Severity Criticality Documentation Date Start Date Code Code System Note Provider Name and Address Organization Details Recorded Time [address] [facility] environmn nt,medica tion rash Not available Not available 09/08/2019 30475 RxNorm Yashira Celeste [place] [facility] in [facility], 0 14:53:01 7561 Product containin g penicilli n (product) medicatio n rash Not available Not available 11/10/2012 95241 8001 SNOMED Taryn Beasley [place] - Ernesto in [facility], 3 13:11:08 Medications Name Sig Start Date [...] henidate ER 40 mg capsule,ex tended release [id number] -50 TAKE 1 CAPSULE BY MOUTH EVERY [...] Available Not Available Not Available Afluria Quad 2875-5271 (PF) 60 mcg (15 mcg x 4)/0.5 mL IM syringe active Not Available Not Available N ot Available FreeStyle Alexei 14 Day [place] FOR TESTING GLUCOSE LEVELS active Not Available [...] 9 175.26 cm 95 /min 54.2 kg/m2 822320. 68 g 122 mm[Hg] 65 mm[Hg] Taryn Beasley [place] - [facility] in [facility], 9 09:12:36 Date Recorded Body weight Body mass index (BMI) Body height Heart rate Systolic blood pressure Diastolic blood pressure Provider Name and Address Organization Details Last Updated DateTime 0 857125. 12 g 55 kg/m2 173.99 cm 110 /min 132 mm[Hg] 77 mm[Hg] Yashira Orozco in [facility], 0 14:53:44 Date Recorded Body height Body temperature Body mass index (BMI) Body weight Heart rate Systolic blood pressure Diastolic blood pressure Provider Name and Address Organization Details Last Updated DateTime 1 173.99 cm 97.2 [degF] 58.6 kg/m2 124842. 34 g 104 /min 141 mm[Hg] 75 mm[Hg] Yashira Orozco in [facility], 1 13:34:29 Date Recorded Body weight Body mass index (BMI) Body height Body temperature Heart rate Systolic blood pressure Diastolic blood pressure Provider Name and Address Organization Details Last Updated DateTime 2 324658. 19 g 54.3 kg/m2 172.72 cm 98.1 [degF] 93 /min 142 mm[Hg] 79 mm[Hg] Yashira Alonso [place] - [place] in [facility], 2 10:33:37 Date Recorded Body weight Heart rate Body mass index (BMI) Body height Systolic blood pressure Diastolic blood pressure Provider Name and Address Organization Details Last Updated DateTime 5 657217. 1769 g 103 /min 54.6 kg/m2 175.26 cm 119 mm[Hg] 71 mm[Hg] Yashira Alonso [place] - [place] in [facility], 5 10:17:20 Social History Question Answer Notes LastModified by Organizat ion Details LastModified Time Tobacco Smoking Status Never Smoker Not Available [employer] 06/07/2020 03:19:40 What Is Your Level Of Alcohol Consumption? None [id number] Information not available 06/07/2020 What Is Your Level Of Caffeine Consumption? Occasional [id number] Information not available 06/07/2020 In The 14 [...] Type Of Diet Are You Following? REGULAR [id number] Information not available 06/07/2020 Which Illicit Or Recreational Drugs Have You Used? None [id number] Information not available 06/07/2020 Do You Reside In Or Have You Traveled To An Area Where Ebola Virus Transmission Is Active? No [id number] Information not available 06/07/2020 Do You Or Have You Ever Used E-cigarettes Or Vape? Never Used Electronic Cigarettes [id number] Information not available 06/07/2020 Education Post Graduate Information not available 11/10/2012 What Is The Highest Grade Or Level Of School You Have Completed Or The Highest Degree You Have Received? [id number] Information not available 04/04/2021 Who Is Your Employer? [employer] 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 Yes [id number] Information not available 06/07/2020 Do You Or Have You Ever Used Smokeless Tobacco? Never Used Smokeless Tobacco [id number] Information not available 06/07/2020 How Much Tobacco Do You Smoke? No [id number] Information not available 06/07/2020 General Stress Level Medium Information not available 09/08/2019 Do You Feel Stressed (tense, Restless, Nervous, Or Anxious, Or Unable To Sleep At Night)? [id number] Information not available 04/04/2021 Do You Use Any Illicit Or Recreational Drugs? No Information not available 04/04/2021 Have You Recently (within The Last 12 Weeks, Or During A Current ) Traveled To Or Lived In A Zika-affected Area? No [employer] Information not available 09/01/2018 Do You Or Have You Ever Used Any Other Forms Of Tobacco Or Nicotine? No Information not available 04/04/2021 Sex: Female Functional Status Question Answer Note LastModified by Organization D etails LastModified Time What is your exercise level? None [id number] Information not available 06/07/2020 Mental Status None [...] MD [address], [place], [address], [place] Orozco in [facility], 11/10/2012 13:43:51 Tdap 3 completed [place] Sexton in [facility], 12/11/2012 15:22:23 Influenza, split virus, quadrivalent, preservative 9 completed [place] Sexton in [facility], 09/01/2018 09:26:24 COVID-19, mRNA, LNP-S, PF, 100 mcg/0.5mL dose or 50 mcg/0.25mL dose 1 completed [place] Ramos in [facility], 04/04/2021 13:38:30 Influenza, split virus, quadrivalent, preservative 1 completed [place] Ramos in [facility], 04/17/2022 10:34:55 Past Encounters Encounter ID Performer Location Encounter Start Date Encounter Closed Date Diagnosis/Indication Diagnosis SNOMED-CT Code Diagnosis ICD10 Code Diagnosis Note [id number] Yashira LARA MD [address] [place] [address] 11/10/2012 12:51:19 11/11/2012 08:37:47 [id number] MD ADRINAA Dickson MD [address] [place] [address] 12/11/2012 15:08:24 12/12/2012 16:10:03 [id number] Taryn LARA MD [address] [place] [address] 08/21/2013 13:33:26 08/21/2013 15:51:36 Pain in pelvis 00728062 Acute lowe r urinary tract infection 659177944 Glycosuria 29061491 [id number] Taryn Beasley ADRIANA LARA MD [address] [place] [address],[place] [address] 11/13/2013 09:28:08 11/13/2013 13:10:39 Specialized medical examination 76910009 [id number] ADRIANA LARA MD [address] [place] [address],[place] [id number] 12/07/2014 10:02:59 12/07/2014 13:34:46 Specialized medical examination 66726782 Venereal d isease screening 907814420 Oligoovula tory dysfunctional uterine bleeding 202957107 [id number] MD ADRIANA Dickson MD [address] [place] [address],[place] [address] 09/01/2018 09:04:26 09/01/2018 12:06:59 Specialized medical examination 10419674 Z01.419 Screening for malignant neoplasm of rectum 213937612 Z12.12 Screening mammography 24 126388 Z12.31 [id number] MD ADRIANA Dickson MD [address] [place] [address],[place] [address] 09/08/2019 14:46:50 09/08/2019 15:34:18 Specialized medical examination 94867961 Z01.419 Screening for malignant neoplasm of rectum 782001095 Z12.12 Screening mammography 24 308231 Z12.31 [id number] MD ADRIANA Dickson MD [address] [place] [address],[place] [address] 04/04/2021 13:29:45 04/04/2021 14:48:20 Specialized medical examination 58863091 Z01.419 Screening for malignant neoplasm of rectum 919676978 Z12.12 Screening mammography 24 896942 Z12.31 [id number] MD ADRIANA Dickson MD [address] [place] [address],[place] [address] 04/17/2022 10:28:03 04/17/2022 11:34:15 Specialized medical examination 30816592 Z01.419 Screening for malignant neoplasm of rectum 591472142 Z12.12 Screening mammography 24 766890 Z12.31 Health Concerns Section Related Observation LastModified by Organization Detai ls LastModified Time None Recorded Concern Status LastModified by Organization Details LastModified Time None Recorded Advance Directives Directive None Recorded Payers Encounter Date Sequence Insurance Name Policy Number Policy Fountain Covered Member ID Fountain Member ID Guarantor Name 12/07/2014 1 [facility] [id number] Glorymar López [id number] Glorymar López Colon 09/01/2018 1 [facility] [id number] Glorymar López [id number] Glorymar López Colon 09/08/2019 1 [facility] [id number] Glorymar López [id number] Glorymar López Colon 04/04/2021 1 [facility] [id number] Glorymar López [id number] Glorymar López Colon 04/17/2022 1 [facility] [id number] Glorymar López [id number] Glorymar López Colon Notes Date Note Type Note Provider Name and Address Organization Details Recorded Time 09/01/2018 text/html She is here for annual exam. She has not been here since 2014. She was seeing [facility] infertility but they gave up on theat and put in a Mirena 2 years ago. No menses. Her diabetes has been Bad. In 07/2016 she started a process to do bariatric surgery at [facility]. She went through all the counseling [...] latest A1C was 10, in 06/18, the [facility] infertility referred her to endocrinology in 06/18, she was given instructions for rescue insulin doses when her sugars are high, she is doing that now, she had an A1C drawn on 11/25/14 but has not received the results yet. Adriana Lara MD [address], [place], [address], [place] - [facility], 09/01/2018 10:08:27 09/08/2019 text/html [...] a process to do bariatric surgery at [facility]. She went through all the counseling ,etc, but things fell through the cracks. She is considering going back again. she had weighted more than 400 pounds last year, she lost some weight this past year with diet and exercise but still weighs 366 pounds today. Adriana Lara MD [address], [place], [address], [place] - [facility], 09/08/2019 15:23:49 04/04/2021 text/html She is here for annual exam, weight is 391 pounds, BMI is 58.6. She had a Mirena inserted 08/2016. No menses. Her mother earlier this year due to natural causes, in [place], she is still grieving. She and her are , she wanted to go to couples counseling but he would only go in [place] and they could not find a [place] speaking counselor. Note from 2020: She is [...] a process to do bariatric surgery at [facility]. She went through all the counseling ,etc, but things fell through the cracks. She is considering going back again. she had weighted more than 400 pounds last year, she lost some weight this past year with diet and exercise but still weighs 366 pounds today. Adriana Lara MD [address], [place], [address], [place] - [facility], 04/04/2021 14:00:40 04/17/2022 text/html [...] this year due to natural causes, in [place], she is still grieving.She and her are , she wanted to go to couples counseling but he would only go in [place] and they could not find a [place] speaking counselor. Adriana Lara MD [address], [place], [address], [place] - [facility], 04/17/2022 11:00:04 OBGyn Episode No OBEpisode recorded.
== END ==
LOC: HO.HOP 08:17
PROVIDERS: PCP Internal Medicine; Visit Provider Counselor Mental Health
DX: F90.2 Attention-deficit hyperactivity disorder, combined type (principal); F41.0 Panic disorder [episodic paroxysmal anxiety]; F32.A Depression, unspecified
CPT/HCPCS: 90837

== ENCOUNTER → 2024-11-25 08:17 | Outpatient (BNVA) | payer OTHER, SELFPAY | PROVIDERS: PCP Internal Medicine; Visit Provider Counselor Mental Health ==

== ENCOUNTER 2024-12-15 08:29 | Outpatient (AMB) | payer OTHER, SELFPAY ==
--- NOTE | 2024-12-15 08:31 | MHC.OFFVIS ---
Vital Signs 12/15/24 08:33 Height 5 ft 9 in Weight 344 lb 9.32 oz BMI 50.9 BP 102/72 Blood Pressure Location Rt brachial Position Sitting Pulse 95 Pulse Source Pulse Oximeter Pulse Oximetry (%) 99 Oxygen Delivery Method Room Air Intake Visit Reasons: T2DM Intake Note: Patient present today to follow up on Type 2 Diabetes Mellitus. Last Diabetic Eye exam: 11/02/24[facility] Last Podiatry Visit: Does not see a Roulette Dealer Random Glucose: 139 mg/dl HgA1C: 8.9% 11/03/2024 Lead Manufacturing Engineering Tech Required: No Accompanied by: Self / Same As Patient Allergies Penicillins Allergy (Intermediate, Verified 12/15/24 08:34) Shortness of Breath pt states no food allergies Allergy (Unknown, Uncoded 12/15/24 08:34) Unknown Medication List - Last Reconciled 12/15/24 by IDALMIS Cortes albuterol sulfate 90 mcg/actuation 2 puffs inhalation QID PRN atorvastatin 40 mg PO DAILY blood-glucose sensor (Tiempo Listo Alexei 3 Plus Sensor device) Apply 1 new sensor every 15 days as directed to monitor blood glucose continuously. bupropion HCl XL 300 mg PO DAILY cholecalciferol (vitamin D3) 125 mcg PO DAILY empagliflozin (Jardiance) 10 mg PO DAILY fluoxetine 20 mg PO DAILY gabapentin 300 mg PO TID 30 days insulin degludec (Tresiba FlexTouch U-200 insulin) 15 units subcut DAILY lisdexamfetamine (Vyvanse) 70 mg PO DAILY lisinopril 10 mg PO DAILY lorazepam 1 mg PO DAILY PRN melatonin 10 mg PO BEDTIME PRN minoxidil 2.5 mg PO DAILY thiamine HCl (vitamin B1) 100 mg PO DAILY tirzepatide (Mounjaro) 15 mg (0.5 mL) subcut QWEEK vitamin A palmitate 10,000 units PO DAILY HPI Comments Details: This is a 49-year-old female with a past medical history of type 2 diabetes, hyperlipidemia, morbid obesity, hypertension, spinal stenosis, ADHD, SOLE on CPAP, anxiety with depression and asthma presenting for diabetic management. She was diagnosed with type 2 diabetes in 2003. Current medications: Mounjaro 12.5 mg weekly, Tresiba 20 units every evening, Jardiance 10 mg daily. Past medications: Metformin discontinued due to GI side effects. I reviewed her Alexei 3+ download CGM active 91% Average glucose 157 Glucose management indicator 7.1% Glucose variability 15.7% Very high 0% High 17% Target range 83% 0% hypoglycemia. She has occasional postprandial hyperglycemia in the afternoon and evening. Patient had 1 episode of hypoglycemia. Her CGM alerted her at night that her blood sugar was in the high 60s. She had no symptoms. She did not treat it, and in 5 minutes her blood sugar was 77. She is trying to follow a lower carbohydrate diet. She is awaiting weight loss surgery at [facility]. She has to establish care with a primary care provider 1st, and she is working on this. Since increasing the dose of Mounjaro she has lost about 5-1/2 lb, and she feels a difference with her appetite. She had some nausea the 1st day after increasing the dose, but this resolved. Complications: She has retinopathy and neuropathy. ROS: Constitutional: No unexplained weight loss, fever, chills or night sweats. Eyes: No vision changes, blurry vision, double vision, eye pain Respiratory: No shortness of breath, cough or sputum production. Cardiovascular: No chest pain, palpitations or pedal edema Gastrointestinal: No anorexia, nausea, vomiting or diarrhea. No abdominal pain Genitourinary: No dysuria, hematuria, urinary frequency. Skin: Open wounds Endocrine: No cold or heat intolerance. No polyuria or polydipsia. Physical exam: Constitutional: Alert, in no distress. Head: Normocephalic. Neck: Supple, Full range of motion. No lymphadenopathy. Respiratory: Clear to auscultation. Cardiovascular: S1 S2 regular. No murmurs. Extremities: Warm and well perfused. No clubbing, cyanosis or edema. Psychiatric: Normal mood and affect [facility] Medical History (Updated 11/17/24 @ 12:28 by IDALMIS Cortes) Type 2 diabetes mellitus with retinopathy Asthma Insomnia Neuropathy Breast calcification, right Adenocarcinoma determined by biopsy of liver Diabetic retinopathy Anxiety and depression GERD (gastroesophageal reflux disease) SOLE on CPAP ADHD Hyperlipidemia HTN (hypertension) with goal to be determined Diabetes mellitus Morbid obesity Surgical History Hx of LASIK History of cholecystectomy Family History Mother Diabetes Heart problem Father Hypertension Maternal Grandmother Primary cancer of bone marrow Maternal Grandfather Prostate cancer Social History Are you a primary child day care center worker to a significant other at home: No Do you presently have visiting nurse or other home services: No Alcohol intake: never Patient Tobacco Use Status: Never used Tobacco Female Reproductive History Menstrual Age of Menarche: 13 Physical Exam Vital Signs: Last Vital Signs Pulse 95 12/15/24 08:33 BP 102/72 12/15/24 08:33 Pulse Ox 99 12/15/24 08:33 Oxygen Delivery Method Room Air 12/15/24 08:33 BMI result Body Mass Index 50.9 Office Procedures Glucose Monitoring Details Details: See [facility] [id number] - Glucose monitoring, continuous-physician I&R Procedure code (CPT) selection complete Results Reviewed Results Reviewed: Laboratory Tests 01/01/23 01/14/23 11/03/24 10:20 11:01 07:45 Plt Count 349 Creatinine 0.70 Estimated GFR > 60 Hgb A1c (Clinic) AST 17 ALT 18 Triglycerides 89 Cholesterol 108 LDL Cholesterol, Calc 53 HDL Cholesterol 38 L Vitamin B12 505 TSH 1.39 Urine Creatinine 113.22 Urine Microalbumin 27.0 Microalb/Creat Ratio 23.8 11/03/24 08:25 Plt Count Creatinine Estimated GFR Hgb A1c (Clinic) 8.9 H AST ALT Triglycerides Cholesterol LDL Cholesterol, Calc HDL Cholesterol Vitamin B12 TSH Urine Creatinine Urine Microalbumin Microalb/Creat Ratio Assessment & Plan Assessment & Plan (1) Type 2 diabetes mellitus with retinopathy: Code(s): E11.319 - Type 2 diabetes mellitus with unspecified diabetic retinopathy without macular edema Category: Medical Qualifiers: Diabetes mellitus penitentiary insulin use: with penitentiary use Plan This is a 49-year-old female with type 2 diabetes with improving glycemic control and weight loss after increasing the dose of Mounjaro. Increase Mounjaro to 15 mg weekly. Continue Jardiance 10 mg daily. She would like to try decreasing her insulin. She will decrease Tresiba 15 units every evening. If she has low sugars after adjusting the dose of Mounjaro she can decrease to 10 units every evening. Diabetic diet reviewed. She is awaiting weight loss surgery at [facility]. Reviewed treatment of hypoglycemia. She has glucose tablets. Advised patient that if her CGM alerts to a low sugar and she is asymptomatic she can check a fingerstick to confirm. Complications of diabetes reviewed with the patient. Follow up in 8 weeks for type 2 diabetes. Orders: Orders AMB Glucose Monitoring Today E11.9 - Type 2 diabetes mellitus without complications Medications: New tirzepatide (Mounjaro) 15 mg (0.5 mL) subcut QWEEK 2 mL 3RF Changed From insulin degludec (Tresiba FlexTouch U-200 insulin) 15 units subcut DAILY To insulin degludec (Tresiba FlexTouch U-200 insulin) 15 units (0.075 mL) subcut DAILY 30 days 2.25 mL 5RF Discontinued tirzepatide (Mounjaro) Discontinued Reason: Doctor's Order 12.5 mg (0.5 mL) subcut QWEEK 2 mL 2RF Coding Level of Care Code Est Pt Level 4 (87854) Diagnoses Type 2 diabetes mellitus with retinopathy E11.319 Diabetes mellitus penitentiary insulin use: with terminal supervisor use CPT Codes Details - CPT: 91212 - Glucose monitoring, continuous-physician I&R ([id number])
[2024-12-15 08:33] VITALS: BP 102/72; PULSE 95; O2SAT 99; BMI 50.9
[2024-12-15 08:42] LABS: Glucose, Whole Blood 139 mg/dL (60-115)
--- OUTSIDE RECORDS SUMMARY | 2024-12-15 08:45 | XMS_ITS | Clinical Summary ---
Author Organization [address] [facility] Address [address] [place] [address] Phone Care Team Providers Care Light Air Defense Artillery Crewmember Name Role Phone Braulio Carbajal Primary Care [...] (BMI) of 50.0 to 59.9 in adult ([facility] V24, [facility] V28) 07/20/2024 HTN (hypertension) 05/22/2024 IBS (irritable bowel syndrome) 05/22/2024 ADHD (attention deficit hype ractivity disorder), combined type 08/16/2014 Sleep apnea 06/28/2014 Morbid obesity ([facility] V24, [facility] V28) 2013 Overview (05/22/2024): BMI 52.25 on 06/05/13. Condition not found 06/05/2013 Overview (05/22/2024): Diabetes mellitus type II, uncontrolled Depression 04/05/2012 Immunizations Name Administration Dates Next Due Tdap Tetanus diptheria acell ular pertussis (Boostrix; Adacel) 7yo and older 12/11/2012 Surgical History Surgery Date Site/Laterality Comments CHOLECYSTECTOMY 1999 PROCEDURE: HISTORICAL CHOLECYSTECTOMY Medical History Medical History Date Comments HTN (hypertension) 2011 DX:HTN (hyper tension) DM (diabetes mellitus) ([facility] V24, [facility] V28) 2006 DX:DM [...] Routine 07/20/2024 8:33 AM EST Morbid obesity ([facility] V24, [facility] V28) HEMOGLOBIN A1C Routine 07/20/2024 8:33 AM EST Morbid obesity ([facility] V24, [facility] V28) LIPID PANEL WITH REFLEX TO DIRECT LDL Routine 07/20/2024 8:33 AM EST Morbid obesity ([facility] V24, [facility] V28) URINE ALBUMIN CREATININE RATIO Routine 02/26/2014 from Last 3 Months or Most Recently Relevant to Health Maintenance Results * (ABNORMAL) Lipid panel with reflex to direct LDL (07/20/2024 8:33 AM EST) Cholesterol 179 0 - 200 mg/dL LAB CHEMISTRY METHOD 07/20/2024 11:24 AM EST [facility] Triglycerides 89 0 - 150 mg/dL LAB CHEMISTRY METHOD 07/20/2024 11:24 AM EST [facility] HDL 53 >=40 mg/dL LAB CHEMISTRY METHOD 07/20/2024 11:24 AM EST [facility] LDL Calculated 108(H) 0 - 100 mg/dL LAB CHEMISTRY METHOD 07/20/2024 11:24 AM EST [facility] VLDL Cholesterol Francisco J 17.8 mg/dL LAB CHEMISTRY METHOD 07/20/2024 11:24 AM EST [facility] Non HDL Chol. (LDL+VLDL) 126 <145 mg/dL LAB CHEMISTRY METHOD 07/20/2024 11:24 AM EST [facility] Chol/HDL Ratio 3.4 0.0 - 4.4 LAB CHEMISTRY METHOD 07/20/2024 11:[address] [facility] Blood Venous blood specimen / Unknown Venipuncture / Unknown 07/20/2024 8:33 AM EST 07/20/2024 8:33 AM EST us Gosia Stoner MD LAB BLOOD ORDERABLES Fi nal Result Performing Organization Address City/[facility]/ZIP Co de Phone Number [facility] [address] [place] [address], [place] [phone] * (ABNORMAL) Hemoglobin A1c (07/20/2024 8:33 AM EST) Pathologist [facility] Hemoglobin A1C 7.9(H) <6.5 % LAB CHEMISTRY METHOD 07/20/2024 2:41 PM EST [facility] Mean Bld Glu Estim. 180 mg/dL LAB CHEMISTRY METHOD 07/20/2024 2:[address] [facility] Blood Venous blood specimen / Unknown Venipuncture / Unknown 07/20/2024 8:33 AM EST 07/20/2024 8:33 AM EST us Gosia Stoner MD LAB BLOOD ORDERABLES Fi nal Result [facility] [address] [place] [address], [place] [phone] * (ABNORMAL) Comprehensive metabolic panel (07/20/2024 8:33 AM EST) Sodium 136 133 - 145 mmol/L LAB CHEMISTRY METHOD 07/20/2024 11:24 AM EST [facility] Potassium 4.5 3.5 - 5.5 mmol/L LAB CHEMISTRY METHOD 07/20/2024 11:[address] [facility] Chloride 100 96 - 110 mmol/L LAB CHEMISTRY METHOD 07/20/2024 11:[address] [facility] CO2 25 21 - 32 mmol/L LAB CHEMISTRY METHOD 07/20/2024 11:[address] [facility] Anion Gap 11 3 - 11 LAB CHEMISTRY METHOD 07/20/2024 11:[address] [facility] Glucose 148(H) 70 - 100 mg/dL LAB CHEMISTRY METHOD 07/20/2024 11:[address] [facility] BUN 15 5 - 25 mg/dL LAB CHEMISTRY METHOD 07/20/2024 11:[address] [facility] Creatinine 0.71 0.50 - 1.10 mg/dL LAB CHEMISTRY METHOD 07/20/2024 11:[address] [facility] eGFR 105 >=60 mL/min/1. 73m2 LAB CHEMISTRY METHOD 07/20/2024 11:[address] [facility] Comment:Calculation based on the??Chronic Kidney Disease Epidemiology Collaboration (CKD-EPI) equation refit??without adjustment for race. BUN/Creatinine Ratio 21.1 LAB CHEMISTRY METHOD 07/20/2024 11:[address] [facility] Calcium 9.7 8.5 - 10.5 mg/dL LAB CHEMISTRY METHOD 07/20/2024 11:[address] [facility] AST (SGOT) 16 10 - 42 unit/L LAB CHEMISTRY METHOD 07/20/2024 11:[address] [facility] ALT (SGPT) 29 10 - 60 unit/L LAB CHEMISTRY METHOD 07/20/2024 11:[address] [facility] Alkaline Phosphatase 124(H) 42 - 121 unit/L LAB CHEMISTRY METHOD 07/20/2024 11:[address] [facility] Total Protein 7.7 6.0 - 8.0 g/dL LAB CHEMISTRY METHOD 07/20/2024 11:24 AM EST [facility] Albumin 3.6 3.2 - 5.0 g/dL LAB CHEMISTRY METHOD 07/20/2024 11:24 AM EST [facility] Total Bilirubin 0.4 0.0 - 1.4 mg/dL LAB CHEMISTRY METHOD 07/20/2024 11:24 AM EST [facility] Blood Venous blood specimen / Unknown Venipuncture / Unknown 07/20/2024 8:33 AM EST 07/20/2024 8:33 AM EST Gosia Stoner MD LAB BLOOD ORDERABLES Fi nal Result [facility] [address] [place] [address], * Urine Albumin Creatinine Ratio (02/26/2014) Urine Albumin Creatinine Ratio Abstracted Historical Provider HEALTH MAINTENANCE Final Result from Last 3 Months or Most Recently Relevant to Health Maintenance Insurance [employer] Care Teams Light Air Defense Artillery Crewmember Relationship Specialty Start Date End Date Braulio Carbajal [address] [place], [place] PCP - General Internal Medicine 03/20/22
--- OUTSIDE RECORDS SUMMARY | 2024-12-15 08:45 | XMS_ITS | Encounter Summary ---
Author Organization [facility] Address [address] [facility] [address] [place] [address] Care Team Providers Care Worm Raiser Name Role Phone Unavailable Primary Care Provider Unavailabl e Reason for Visit * Reason Comments Med Refill Encounter Details Date Type Department Care Team ([facility] st Contact Info) Description 10/19/2024 Refill [facility] [address] [place] [address] Braulio Carbajal MD [address] [place] [address] Social History Tobacco Use Types Packs/Day Years [...]
--- OUTSIDE RECORDS SUMMARY | 2024-12-15 08:45 | XMS_ITS | Encounter Summary ---
Author Organization [employer] Address [address] [facility] [address] [place] [address] Care Team Providers Care Personal Lines Appraiser Name Role Phone Unavailable Primary Care Provider Unavailabl e Reason for Visit * Reason Comments Med Refill Encounter Details Date Type Department Care Team ([facility] st Contact Info) Description 10/13/2024 Refill [facility] [address] [place] [address] rBaulio Carbajal MD [address] [place] [address] Primary hypertension Social History Tobacco Use Types [...]
--- OUTSIDE RECORDS SUMMARY | 2024-12-15 08:46 | XMS_ITS | Encounter Summary ---
Author Organization [employer] [facility] Address [address] [place] [address] [address] [address] Care Team Providers Care Kindergarten Teacher Name Role Phone Braulio Carbajal MD Primary Care Prov ider Reason for Visit * Reason Comments Med Refill Encounter Details Date Type Department Care Team (Late st Contact Info) Description 10/29/2022 Refill [facility] [address] [place] [address] Braulio Carbajal MD [address] [place] [address] Social History Tobacco Use Types Packs/Day Years [...] on filedocumented in this encounter Care Teams Kindergarten Teacher Relationship Specialty Start Date End Date Braulio Carbajal MD [address] [place] [address] PCP - General Internal Medicine 12/14/19 04/28/24 documented as of this encounter
--- OUTSIDE RECORDS SUMMARY | 2024-12-15 08:46 | XMS_ITS | Data Portability ---
Author Organization [place] [facility] [place] Address [address] [place] [id number] Care Team Providers Care Tobacco Warehouse Manager Name Role Phone JAVIER LANGLEY Referring Provider [phone] Assessment Encounter Date Assessment Date Assessment LastModified by Organization Details LastModified Time 06/18/2024 06/18/2024 IMPRESSION: 49-year-old [id number] t woman with RIGHT lateral epicondylitis. PLAN: [...] This patient was seen and evaluated by Gerard Gonzalez MS, PA-C in indirect conjunction with [facility] provider Clark Andino MD. He agrees with history, physical examination, tests/diagnostic imaging, and treatment plan. This document was generated using voice recognition software. As a result, there may be unintended spelling, grammatical and/or textual errors. Not available 07/07/2024 11:07:22 Plan of Treatment Reminders Order Date Submit Date Provider Last Modified By Organization Details Last Modified Time Details Appointments None recorded. Lab None recorded. Referral occupationa l therapist referral - tennis elbow RIGHT -epicondyla r muscle strengtheni ng exercises, mobilizatio n, stretching, and deep friction massage. 2023 024 [email or web address] Not available 4 14:29:59 Procedures injection, hip, fluoro guidance (PROC) - Hip Cortisone Injection, Fluoroscopy guided, please contact patient directly to scheduleDia gnosis: Left hip pain.Ultras ound or x-ray guided intra-artic ular injection of steroid and short and/or long-acting anesthetic to femoral-thony tabular joint.Ple ase document pre and post procedure pain levels (0-10 scale). 2023 024 [email or web address] [facility], [address] [place] [address], [address], [place], [address], 5 15:48:51 Surgeries None recorded. Imaging XR, hip, unilateral, 2 or 3 view 2023 024 [email or web address] [facility], [address], [address], [place], [address], 4 11:51:40 XR, elbow, 3 or more view 2023 024 [facility], [address], [address], [place], [address], 4 16:54:16 Medication Orders meloxicam 15 mg tablet 2023 024 [facility], [address] [facility], [place], [address], 4 14:11:51 Patient TargetsNo targets recorded. Patient Instructions Encounter Date Encounter Id Patient Instructions Last Modified By Organization Details Last Modified Time 06/18/2024 [id number] tennis elbow: exercises Not available 06/18/2024 14:11:37 [...] LEFT}} elbow. Not available 06/18/2024 13:55:08 07/07/2024 [id number] {{2 3 4* 5 6 7 8 [...] Organization Details Recorded Time Lateral epicondyli tis 547751896 Active [address], [place], [address] , [place] [facility], P 4 14:10:53 Lateral epicondyli tis 351401313 Active [address], [place], [address] , [place] [facility], P 4 14:11:09 Osteoarthr itis of left hip joint 0706804363941 08 Active [address], [place], [address] , [place] [facility], P 4 11:06:02 Problem Notes None recorded. [...] SNOMED-CT Code Diagnosis ICD10 Code Diagnosis Note [id number] Oscar Avina MD [facility] [address] [place] [address] [phone] 06/18/2024 13:20:00 06/18/2024 14:16:30 Pain of elbow region 04994104 M25.521 Lateral epicondylitis 20 1863161 M77.10 [id number] GERARD GONZALEZ PA-C [address] [place] [phone] 07/07/2024 10:17:23 07/07/2024 11:04:15 Pain of hip region 36832700 M25.552 Osteoarthr itis of left hip joint 2471191818 69176 M16.12 Health Concerns Section Related Observation LastModified by Organization Detai ls LastModified Time None Recorded Concern Status LastModified by Organization Details LastModified Time None Recorded Advance Directives Directive None Recorded Payers Encounter Date Sequence Insurance Name Policy Number Policy Fountain Covered Member ID Fountain Member ID Guarantor Name 06/18/2024 1 [employer] [id number] Glorymar López Colon [id number] Glorymar López-Col on 07/07/2024 1 [employer] [id number] Glorymar López Colon [id number] Glorymar López-Col on Notes Date Note Type [...] 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 She is [id number] . Oscar Avina MD [address], [place], [address], [place] [facility], P 06/18/2024 14:13:14 07/07/2024 text/html 49-year-old fema [...] any pain that radiates down the leg. GERARD GONZALEZ PA-C [address], [place], [address], [place] [facility], P 07/07/2024 11:07:40 OBGyn Episode No OBEpisode recorded.
--- OUTSIDE RECORDS SUMMARY | 2024-12-15 08:46 | XMS_ITS | Encounter Summary ---
Author Organization [employer] Address [address] [facility] [address] [place] [address] Care Team Providers Care Sign Manufacturer Name Role Phone Braulio Carbajal MD Primary Care Prov ider Encounter Details Date Type Department Care Team (Late st Contact Info) Description 08/17/2022 Orders Only [facility] [address] [place] [address] Braulio Carbajal MD [address] [place] [address] Type 2 diabetes mellitus without complication, unspecified whether adjunct faculty for medical terminology insulin use ([facility]) (Primary Dx) Social History Tobacco Use Types [...] 2 diabetes mellitus without complication, unspecified whether custodial insulin use (CMS/HCC) HEMATOXYLIN AND EOSIN STAIN Routine 01/09/2023 8:38 AM EDT Type 2 diabetes mellitus without complication, unspecified whether adjunct faculty for medical terminology insulin use (CMS/HCC) COVID-19 ID NOW (DUPREE) Routine 01/08/2023 2:18 PM EDT Type 2 diabetes mellitus without complication, unspecified whether adjunct faculty for medical terminology insulin use (CMS/HCC) TYPE AND SCREEN Routine 01/01/2023 10:22 AM EDT Type 2 diabetes mellitus without complication, unspecified whether adjunct faculty for medical terminology insulin use (CMS/HCC) VITAMIN D,25-OH,TOTAL,IA Routine 01/01/2023 10:20 AM EDT Type 2 diabetes mellitus without complication, unspecified whether custodial insulin use (CMS/HCC) TSH W/REFLEX TO FT4 Routine 01/01/2023 1 0:20 AM EDT Type 2 diabetes mellitus without complication, unspecified whether adjunct faculty for medical terminology insulin use (CMS/HCC) CBC WITH AUTO DIFFERENTIAL Routine 01/01/2023 10:20 AM EDT Type 2 diabetes mellitus without complication, unspecified whether adjunct faculty for medical terminology insulin use (CMS/HCC) ZINC Routine 01/01/2023 10:20 AM EDT Type 2 diabetes mellitus without complication, unspecified whether adjunct faculty for medical terminology insulin use (CMS/HCC) VITAMIN A Routine 01/01/2023 10:20 AM EDT Type 2 diabetes mellitus without complication, unspecified whether adjunct faculty for medical terminology insulin use (CMS/HCC) APTT Routine 01/01/2023 10:20 AM EDT Type 2 diabetes mellitus without complication, unspecified whether custodial insulin use (CMS/HCC) PROTHROMBIN TIME-INR Routine 01/01/2023 10:20 AM EDT Type 2 diabetes mellitus without complication, unspecified whether custodial insulin use (CMS/HCC) C-REACTIVE PROTEIN Routine 01/01/2023 10 :20 AM EDT Type 2 diabetes mellitus without complication, unspecified whether adjunct faculty for medical terminology insulin use (CMS/HCC) VITAMIN B1 Routine 01/01/2023 10:20 AM EDT Type 2 diabetes mellitus without complication, unspecified whether custodial insulin use (CMS/HCC) PTH, INTACT WITHOUT CALCIUM Routine 01/01/2023 10:20 AM EDT Type 2 diabetes mellitus without complication, unspecified whether adjunct faculty for medical terminology insulin use (CMS/HCC) HEMOGLOBIN A1C Routine 01/01/2023 10:20 AM EDT Type 2 diabetes mellitus without complication, unspecified whether custodial insulin use (CMS/HCC) FERRITIN Routine 01/01/2023 10:20 AM EDT Type 2 diabetes mellitus without complication, unspecified whether adjunct faculty for medical terminology insulin use (CMS/HCC) VITAMIN B12 Routine 01/01/2023 10:20 AM EDT Type 2 diabetes mellitus without complication, unspecified whether custodial insulin use (CMS/HCC) LIPID PANEL, STANDARD Routine 01/01/2023 10:20 AM EDT Type 2 diabetes mellitus without complication, unspecified whether custodial insulin use (CMS/HCC) COMPREHENSIVE METABOLIC PANEL Routine 01/01/2023 10:20 AM EDT Type 2 diabetes mellitus without complication, unspecified whether adjunct faculty for medical terminology insulin use (CMS/HCC) GLUCOSE, WHOLE BLOOD Routine 11/13/2022 1:31 PM EDT Type 2 diabetes mellitus without complication, unspecified whether adjunct faculty for medical terminology insulin use (CMS/HCC) HEMOGLOBIN A1C Routine 11/13/2022 1:14 PM EDT Type 2 diabetes mellitus without complication, unspecified whether custodial insulin use (CMS/HCC) documented in this encounter Results * CA 19-9 (01/09/2023 10:38 AM EDT) CA 19-9 14 <34 U/mL [facility] Comment:The CA19-9 result ma y be increased on average 14% - 20%,relative to results previously obtained with this methoddue to a recent calibrator adjustment made in Octobery the reagent field manager. In the low range for thisassay [...] or absence of disease.THIS TEST WAS PERFORMED AT:[address] [place] [id number] LONDONO MD 01/09/2023 10:3 8 AM EDT 01/09/2023 10:42 AM EDT [facility] External Provider LAB BLO OD ORDERABLES Final Result [facility] [address] [place] [phone] * Hematoxylin and Eosin Stain (01/09/2023 8:38 AM EDT) 01/09/2023 8:38 AM EDT 01/09/2023 8:53 AM EDT Narrative [facility] - 01/14/2023 1:28 PM EDT ----- ------- Name: Julia López ? Age/Sex: 47/F ? : 1975 Unit#: [id number] ?? Attend Dr: Darci Sanders MD ?Re01/09/23 ?Status: DEP SDC ? Location: HO.SSS ?Disch: ? ----- ------- SPEC : [id number] ? RECD: 01/09/23 ? STATUS: ??SOUT ? REQ NUM: [id number] ? PUSHPA: 01/09/23 ? SUBM DR: Darci [...] ? Age/Sex: 47/F ? : 1975 Unit#: [id number] ?? Attend Dr: Darci Sanders MD ?Re01/09/23 ?Status: DEP SDC ? Location: HO.SSS ?Disch: ? ----- ------- SPEC : [id number] ? RECD: 01/09/23 ? STATUS: ??SOUT ? REQ NUM: [id number] ? PUSHPA: 01/09/23 ? SUBM DR: Darci [...] ?? [address] ?? [place] [address] ?? [phone] ?? Darci Sanders MD ?? [address] [place] [address], [address] ?? [place] [address] ?? [phone] ----- ------- Signed (signature on file) Shaun Lebron MD 01/14/23 1328 ? ----- ------- ? END OF REPORT ? us [facility] External Provider LAB BLO OD ORDERABLES Final Result [facility] [address] [place] [address] [phone] * COVID-19 ID NOW (MC10) (01/08/2023 2:18 PM EDT) IDNOW SERIAL# [id number] [facility] COVID-19 TEST Negative Negative [facility] COVID-19 NOTE See Note [facility] Comment: Results are for the identification of SARS-CoV2 RNA. TheSARS-CoV2 RNA is generally detectable in respiratory samplesduring the acute phase of infection. Positive results areindicative of the presence of SARS-CoV-2 RNA; clinicalcorrelation with patient history and other diagnosticinformation is necessary to determine patient infectionstatus. Positive results do not rule out bacterial infectionor co- infection with other viruses.Testing facilities within the [facility] and itsterritories are required to report [...] use by authorized laboratories.Testing performed on the [employer] ID NOW utilizing NAAT. 01/08/2023 2:18 PM EDT 01/08/2023 2:32 PM EDT [facility] Exter nal Provider LAB MOLECULAR DIAGNOSTICS ORDERABLES Final Result Performing Organization Address City/[facility]/ZIP Co de Phone Number [facility] [address] [place] [phone] * Type and screen (01/01/2023 10:22 AM EDT) Blood Type OP [facility] Antibody Screen NEGATIVE [facility] 01/01/2023 10:2 2 AM EDT 01/01/2023 11:04 AM EDT Narrative [facility] - 01/01/2023 11:55 AM EDT Spec expiration changed by JAMESON on 01/01/23Reason: For SURGERYNURSING:Call Blood Bank (ext. [phone]) to band patient on admission.Type and Screen in effect until 2300 on 01/09/23Witnessed by EDELMIRA [facility] External Provider LAB BLO OD BANK TEST ORDERABLES Final Result Performing Organization Address [facility] Co de Phone Number [facility] [address] [place] [phone] * (ABNORMAL) Vitamin A (01/01/2023 10:20 AM EDT) Vitamin A (Retinol) 32(A) 38 - 98 mcg/dL [facility] Comment:Vitamin supplementat ion within 24 hours prior toblood draw may affect the accuracy of the results.This test was developed and its analytical performancecharacteristics have been determined by [employer] [place], [place]. It hasnot been cleared or approved by the U.S. Food and DrugAdministration. This assay has been validated pursuantto the CLIA regulations and is used for clinicalpurposes.THIS TEST WAS PERFORMED AT:[id number] [place] [address]LQOKEBNNICOLA BARRY MD,PHD 01/01/2023 10:2 0 AM EDT 01/01/2023 10:20 AM EDT [facility] External Provider LAB BLO OD ORDERABLES Final Result Performing Organization Address [facility] Co de Phone Number [facility] [address] [place] [phone] * (ABNORMAL) Vitamin B1 (01/01/2023 10:20 AM EDT) Pathologist [facility] Vitamin B1 <6(A) 8 - 30 nmol/L [facility] Comment:Vitamin supplementat ion within 24 hours prior toblood draw may affect the accuracy of the results.This test was developed and its analytical performancecharacteristics have been determined by [employer] [place], [place]. It hasnot been cleared or approved by the U.S. Food and DrugAdministration. This assay has been validated pursuantto the CLIA regulations and is used for clinicalpurposes.THIS TEST WAS PERFORMED AT:[employer]/[id number] [place] [address]TWMLVMKNICOLA BARRY MD,PHD 01/01/2023 10:2 0 AM EDT 01/01/2023 10:20 AM EDT [facility] External Provider LAB BLO OD ORDERABLES Final Result Performing Organization Address [facility] de Phone Number [facility] [address] [place] [phone] * Zinc (01/01/2023 10:20 AM EDT) Zinc 84 60 - 130 mcg/dL [facility] Comment:This test was develo ped and its analytical performancecharacteristics have been determined by [employer] [place], [place]. It hasnot been cleared or approved by the U.S. Food and DrugAdministration. This assay has been validated pursuantto the CLIA regulations and is used for clinicalpurposes.THIS TEST WAS PERFORMED AT:[employer]/[facility] [place] [address]WUGEDIANICOLA BARRY MD,PHD 01/01/2023 10:2 0 AM EDT 01/01/2023 10:20 AM EDT [facility] External Provider LAB BLO OD ORDERABLES Final Result Performing Organization Address [facility]/ZIP Co de Phone Number [facility] [address] [place] [phone] * PTH, Intact Without Calcium (01/01/2023 10:20 AM EDT) PTHI 32 16 - 77 pg/mL [facility] Comment:Interpretive Guide I ntact PTH Calcium -------Normal Parathyroid Normal NormalHypoparathyroidism Low or Low Normal LowHyperparathyroidism Primary Normal or High High Secondary High Normal or Low Tertiary High HighNon-Parathyroid Hypercalcemia Low or Low Normal High Calcium (PTHI) 9.9 8.6 - 10.2 mg/dL [facility] Comment:THIS TEST WAS PERFOR MED AT:[employer] [address] [id number] LONDONO MD 01/01/2023 10:2 0 AM EDT 01/01/2023 10:20 AM EDT [facility] External Provider LAB BLO OD ORDERABLES Final Result Performing Organization Address [facility] Co de Phone Number [facility] [address] [place] [phone] * Lipid Panel, Standard (01/01/2023 10:20 AM EDT) Triglycerides 73 mg/dL [facility] Comment:Desirable Triglyceri de: less than 150 mg/dLBorderline High Triglyceride 150-199 mg/dLHigh Triglyceride: 200-499 mg/dLVery High Triglyceride: greater than or equal to 5OO mg/dL Cholesterol 101 mg/dL [facility] Comment:Desirable Cholestero l: less than 200 mg/dLBorderline High Cholesterol: 200-239 mg/dLHigh Cholesterol: greater than 239 mg/dL LDL Cholesterol Calculated 53 mg/dl [facility] Comment:Desirable LDL: less than 100 mg/dLNear Optimal/Above Optimal LDL: 110- 129 mg/dLBorderline High LDL: 130-159 mg/dLHigh LDL: 160-189 mg/dLVery High LDL: greater than or equal to 190 mg/dL HDL Cholesterol 34 mg/dL [facility] Comment:Desirable HDL: great er than 40 mg/dL Note: This HDL assay may give artificially low results in patients with liver disease. 01/01/2023 10:2 0 AM EDT 01/01/2023 10:20 AM EDT [facility] External Provider LAB BLO OD ORDERABLES Final Result Performing Organization Address [facility]/ZIP Co de Phone Number [facility] [address] [place] [phone] * (ABNORMAL) C-reactive Protein (01/01/2023 10:20 AM EDT) C Reactive Protein 2.54(H) < or = 0.50 mg/dL [facility] 01/01/2023 10:2 0 AM EDT 01/01/2023 10:20 AM EDT [facility] External Provider LAB BLO OD ORDERABLES Final Result [facility] [address] [place] [phone] * (ABNORMAL) Comprehensive Metabolic Panel (01/01/2023 10:20 AM EDT) Sodium 136 135 - 145 mmol/L [facility] Potassium 4.7 3.3 - 5.1 mmol/L [facility] Chloride 99 96 - 108 mmol/L [facility] Carbon Dioxide 28 22 - 29 mmol/L [facility] Anion Gap 14 12 - 20 [facility] Urea Nitrogen (BUN) 13 9 - 16 mg/dL [facility] Creatinine, Serum 0.80 0.5 - 1.4 mg/dL [facility] Creatinine Clr Calc Pharmacy 134.3 [facility] Comment:Provided height and weight: 175.26 cm,142.882 kg.eGFR (calculated from the MDRD study equation) and eCrCl(calculated from the Cockcroft-Gault equation) are based ondifferent parameters and may not yield comparable results.If eCrCl result is absurd, please check patient'sheight/weight. Estimated Glomerular Filt Rate >60 [facility] Comment:NOTE: For -Am erican individuals, multiply the result by 1.210.Chronic Kidney Disease: Estimated GFR < 60 mL/min/1.10o8Lghubr Kidney Disease: Estimated GFR < 15 mL/min/1.73m2 Glucose 141(H) 60 - 115 mg/dL [facility] Calcium 10.0 8.4 - 10.2 mg/dL [facility] Bilirubin, Total 0.9 0.0 - 1.0 mg/dL [facility] Aspartate Amino Transferase 18 5 - 31 U/L [facility] Alanine Aminotransferase 14 0 - 31 U/L [facility] Total Protein 7.9 6.5 - 8.0 g/dL [facility] Albumin Level 4.0 3.5 - 5.0 g/dL [facility] Alkaline Phosphatase 85 39 - 117 U/L [facility] 01/01/2023 10:2 0 AM EDT 01/01/2023 10:20 AM EDT [facility] External Provider LAB BLO OD ORDERABLES Final Result Performing Organization Address [facility] Co de Phone Number [facility] [address] [place] [phone] * TSH W/Reflex to FT4 (01/01/2023 10:20 AM EDT) TSH reflex Free T4 1.39 0.32 - 4.0 uIU/mL [facility] 01/01/2023 10:2 0 AM EDT 01/01/2023 10:20 AM EDT [facility] External Provider LAB BLO OD ORDERABLES Final Result Performing Organization Address [facility] Phone Number [facility] [address] [place] [phone] * Vitamin D, 25-Hydroxy, Total, Immunoassay (01/01/2023 10:20 AM EDT) Vitamin D 25-OH Total 23.8 >30 ng/mL [facility] Comment:Health Based Referen ce Values*< 20 ng/mL Xrdcbxvwj05-25 ng/mL Insufficient> 30 ng/mL Sufficient*Nay HASTINGS. N [...] 0 AM EDT 01/01/2023 10:20 AM EDT [facility] External Provider LAB BLO OD ORDERABLES Final Result Performing Organization Address City/[facility]/ZIP Co de Phone Number [facility] [address] [place] [address] [phone] * Vitamin B12 (01/01/2023 10:20 AM EDT) Vitamin B12 505 200 - 900 pg/mL [facility] Comment:NORMAL 200-900 PG/ML INDETERMINATE 160-199 PG/ML DEFICIENT < 160 PG/ML 01/01/2023 10:2 0 AM EDT 01/01/2023 10:20 AM EDT [facility] External Provider LAB BLO OD ORDERABLES Final Result Performing Organization Address [facility] Co de Phone Number [facility] [address] [place] [phone] * Ferritin (01/01/2023 10:20 AM EDT) Pathologist [facility] Ferritin 192 10 - 250 ng/mL [facility] 01/01/2023 10:2 0 AM EDT 01/01/2023 10:20 AM EDT [facility] External Provider LAB BLO OD ORDERABLES Final Result Performing Organization Address [facility] Co de Phone Number [facility] [address] [place] [address] [phone] * Hemoglobin A1c (01/01/2023 10:20 AM EDT) Hemoglobin A1c 6.8 % [facility] Comment:Hemoglobin A1C Refer ence Range Adults: 4.8 - 6.0 % Non diabetic: < 6.0 % Goal: < 7.0 %Additional Action Suggested: > 8.0 %Note: Hemoglobin A1c results are invalid for patients with abnormal amounts of HbF. Blood transfusions may impact the HbA1c concentration in the patient sample. Estimated Average Glucose 148 mg/dL [facility] Comment:eAG = Estimated ave rage glucose which is %A1C expressed asaverage glucose, using the formula of the R3M-OzzfquqAdvebwl Glucose study (ADAG), Diabetes Care, Vol.31,#8,2007 01/01/2023 10:2 0 AM EDT 01/01/2023 10:20 AM EDT [facility] External Provider LAB BLO OD ORDERABLES Final Result Performing Organization Address [facility] Co de Phone Number [facility] [address] [place] [phone] * APTT (01/01/2023 10:20 AM EDT) Partial Thromboplastin Time 35.0 26.0 - 36.4 SEC [facility] 01/01/2023 10:2 0 AM EDT 01/01/2023 10:20 AM EDT [facility] External Provider LAB BLO OD ORDERABLES Final Result Performing Organization Address [facility] de Phone Number [facility] [address] [place] [phone] * Prothrombin Time-INR (01/01/2023 10:20 AM EDT) Prothrombin Time 12.9 10.0 - 13.1 SEC [facility] INTERNATIONAL NORM RATIO 1.1 0.9 - 1.1 [facility] Comment:INTERNATIONAL NORMAL IZED RATIO (INR) [...] AM EDT 01/01/2023 10:20 AM EDT us [facility] External Provider LAB BLO OD ORDERABLES Final Result [facility] [address] [place], [place] [phone] * (ABNORMAL) CBC auto differential (01/01/2023 10:20 AM EDT) White Blood Count 11.3(H) 4.8 - 10.8 X10*3/uL [facility] Red Blood Count 5.09 4.20 - 5.50 X10*6/uL [facility] Hemoglobin 13.8 12.0 - 16.0 g/dl [facility] Hematocrit 44.1 37.0 - 47.0 % [facility] Mean Corpuscular Volume 86.6 80.0 - 98.0 fL [facility] Mean Corpuscular Hemoglobin 27.1 27.0 - 33.0 pg [facility] Mean Corpuscular HGB Conc 31.3 31.0 - 35.0 g/dl [facility] Red Cell Distribution Width 14.3 11.0 - 16.0 % [facility] Platelet Count 376 160 - 400 X10*3/uL [facility] Mean Platelet Volume 9.2(L) 9.4 - 12.3 fL [facility] Neutrophils Percent Auto 66.0 45 - 73 % [facility] Imm Gran Pct Auto 0.8(H) 0.0 - 0.4 % [facility] Lymphocytes Percent Auto 25.1 20 - 40 % [facility] Monocytes Percent Auto 5.5 2 - 11 % [facility] Eosinophils Percent Auto 2.0 0 - 4 % [facility] Basophils Percent Auto 0.6 0 - 2 % [facility] NRBC Pct Auto 0.0 0.0 - 0.2 /100WBC [facility] Neutrophils Absolute Auto 7.4 2.0 - 8.3 x10*3/uL [facility] Imm Gran Abs Auto 0.09(H) 0.00 - 0.03 X10*3/uL [facility] Lymphocytes Absolute Auto 2.8 1.2 - 4.9 X10*3/uL [facility] Monocytes Absolute Auto 0.6 0.1 - 1.2 X10*3/uL [facility] Eosinophils Absolute Auto 0.2 0.0 - 0.4 X10*3/uL [facility] Basophils Absolute Auto 0.1 0.0 - 0.2 X10*3/uL [facility] NRBC Abs Auto 0.000 0.0 - 0.012 X10*3/uL [facility] 01/01/2023 10:2 0 AM EDT 01/01/2023 10:20 AM EDT [facility] External Provider LAB BLO OD ORDERABLES Final Result Performing Organization Address [facility]/ZIP Co de Phone Number [facility] [address] [place] [phone] * (ABNORMAL) Glucose, Whole Blood (11/13/2022 1:31 PM EDT) Glucose, Whole Blood 196(H) 60 - 115 mg/dL [facility] Comment:METER #: [id number] 5Testing performed in the Endocrinology Department [address] , [address], [facility]. 11/13/2022 1:31 PM EDT 11/13/2022 1:34 PM EDT [facility] External Provider LAB BLO OD ORDERABLES Final Result Performing Organization Address City/[facility]/ZIP Co de Phone Number [facility] [address] [place] [address] [phone] * Hemoglobin A1c (11/13/2022 1:14 PM EDT) Hemoglobin A1c 7.4 % [facility] Comment:Hemoglobin A1C Refer ence Range Adults: 4.8 - 6.0 % Non diabetic: < 6.0 % Goal: < 7.0 %Additional Action Suggested: > 8.0 %Note: Hemoglobin A1c results are invalid for patients with abnormal amounts of HbF. Blood transfusions may impact the HbA1c concentration in the patient sample. Estimated Average Glucose 166 mg/dL [facility] Comment:eAG = Estimated ave rage glucose which is %A1C expressed asaverage glucose, using the formula of the S8T-BljjsshLcyxoyj Glucose study (ADAG), Diabetes Care, Vol.31,#8,2007 11/13/2022 1:14 PM EDT 11/13/2022 1:14 PM EDT us [facility] External Provider LAB BLO OD ORDERABLES Final Result [facility] [address] [place] [phone] documented in this encounter Visit Diagnoses Diagnosis Type 2 diabetes mellitus without complication, unspecified whether adjunct faculty for medical terminology insulin use ([facility])- Primary documented in this encounter Care Teams Sign Manufacturer Relationship Specialty Start Date End Date Braulio Carbajal MD [address] [place] [phone] PCP - General Internal Medicine 12/14/19 04/28/24 documented as of this encounter
--- OUTSIDE RECORDS SUMMARY | 2024-12-15 08:46 | XMS_ITS | Encounter Summary ---
Author Organization [employer] Address [address] [facility] [address] [place] [address] Care Team Providers Care In Home Aide Name Role Phone Braulio Carbajal MD Primary Care Prov ider Reason for Visit * Reason Onset Date Comments Med Refill 02/28/2023 Encounter Details Date Type Department Care Team (Late st Contact Info) Description 02/28/2023 Refill [facility] [address] [place] [address] Braulio Carbajal MD [address] [place] [phone] Mixed hyperlipidemia; Primary hypertension; Type 2 diabetes [...] (CMS/HCC) documented in this encounter Care Teams In Home Aide Relationship Specialty Start Date End Date Braulio Carbajal MD [address] [place] [phone] PCP - General Internal Medicine 12/14/19 04/28/24 documented as of this encounter
--- OUTSIDE RECORDS SUMMARY | 2024-12-15 08:46 | XMS_ITS | Clinical Summary ---
Author Organization [facility] Facility Address [address] [place] [phone] Care Team Providers Care Rod Piler Name Role Phone Braulio Lopez Primary Care Provider [phone] Allergies Active Allergy Reactions Criticality Noted Date [...] age to complete this topic Care Teams Rod Piler Relationship Specialty Start Date End Date Braulio Lopez PCP - General Internal Medicine 02/01/22
--- OUTSIDE RECORDS SUMMARY | 2024-12-15 08:46 | XMS_ITS | Continuity of Care Document ---
Author Organization [facility] Address [address] [place] [address] Phone [phone] Social History Type Date Description Comments Sex Unknown Medical Devices Description No Information Available Encounters Description No Information Available Assessments Description No Information Available Plan of Treatment No Information Available Functional Status Description No Information Available Mental Status Description No Information Available Referrals Description No Information Available
--- OUTSIDE RECORDS SUMMARY | 2024-12-15 08:46 | XMS_ITS | Clinical Summary ---
Author Organization [facility] Address [address] [place] [address] Care Team Providers Care Quality Rep Name Role Phone Braulio Lopez MD Primary Care Provider [phone] Allergies Active Allergy Reactions Criticality Noted Date [...] age to complete this topic Care Teams Quality Rep Relationship Specialty Start Date End Date Braulio Lopez MD [address] [place] [id number] PCP - General Internal Medicine 03/20/22
--- OUTSIDE RECORDS SUMMARY | 2024-12-15 08:46 | XMS_ITS | Encounter Summary ---
Author Organization [employer] Address [address] [place] [address] Care Team Providers Care Handkerchief Presser Name Role Phone Unavailable Primary Care Provider Unavailabl e Reason for Visit * Reason Comments Med Refill Encounter Details Date Type Department Care Team ([facility] st Contact Info) Description 11/02/2024 Refill [facility] [address] [place] [address] Braulio Carbajal MD [address] [place] [address] Social History Tobacco Use Types Packs/Day Years [...]
--- OUTSIDE RECORDS SUMMARY | 2024-12-15 08:46 | XMS_ITS | Encounter Summary ---
Author Organization [facility] Address [address] [place] [address] [address] [address] Care Team Providers Care Public Accountant Name Role Phone Braulio Carbajal MD Primary Care Prov ider Reason for Visit * Reason Onset Date Comments Med Refill 02/28/2023 Encounter Details Date Type Department Care Team (Late st Contact Info) Description 02/28/2023 Refill [facility] [address] [place] [address] Braulio Carbajal MD [address] [place] [address] Social History Tobacco Use Types Packs/Day Years [...] on filedocumented in this encounter Care Teams Public Accountant Relationship Specialty Start Date End Date Braulio Carbajal MD [address] [place] [address] PCP - General Internal Medicine 12/14/19 04/28/24 documented as of this encounter
--- OUTSIDE RECORDS SUMMARY | 2024-12-15 08:46 | XMS_ITS | Data Portability ---
Author Organization [place] - [facility],, ADRIANA LARA MD Address [address] [address] Assessment No assessment recorded. Plan of Treatment Reminders Order Date Submit Date Provider Last Modified By Organization Details Last Modified Time Details Appointments None recorded. Lab pap test, thinprep, cervical 2021 022 [email or web address] [facility], Cytopathology Service, [address] [place] [address], [address], 2 07:36:24 fecal occult blood, stool 2021 022 [email or web address] In-Office Order, Internal Use Only DO Not Attach Compendium DO Not Attach Compendium, Do Not Delete/merge, [id number] 2 11:34:07 pap test, thinprep, cervical 2020 021 [email or web address] [facility], Cytopathology Service, [address] [place] [address], [address], 1 07:14:16 fecal occult blood, stool 2020 021 [email or web address] 1 In-Office Order, Internal Use Only DO Not Attach Compendium DO Not Attach Compendium, Do Not Delete/merge, [id number] 1 13:58:54 pap test, thinprep, cervical 2019 020 [email or web address] [facility], Cytopathology Service, [address] [place] [address], [address], 0 08:59:10 fecal occult blood, stool 2019 020 [email or web address] In-Office Order, Internal Use Only DO Not Attach Compendium DO Not Attach Compendium, Do Not Delete/merge, [id number] 0 08:59:10 pap test, thinprep, cervical 2018 019 [facility], Cytopathology Service, [address] [place] [address], [address], 9 04:32:23 fecal occult blood, stool 2018 019 [email or web address] In-Office Order, Internal Use Only DO Not Attach Compendium DO Not Attach Compendium, Do Not Delete/merge, [id number] 9 07:31:20 pap test, thinprep, cervical 2014 015 [facility], Cytopathology Service, [address] [place] [address], [address], 5 12:26:29 chlamydia sp, culture, unspecifi ed specimen 2014 015 [facility], Cytopathology Service, [address] [place] [address], [address], 5 08:24:20 NG DNA, PCR, genital 2014 015 [facility], Cytopathology Service, [address] [place] [address], [address], 5 08:24:20 test, urine 2014 015 [email or web address] 1 In-Office Order, Internal Use Only DO Not Attach Compendium DO Not Attach Compendium, Do Not Delete/merge, [id number] 5 11:43:08 Referral None recorded. Procedures None recorded. Surgeries None recorded. Imaging MAMMO, screening , digital, bilateral 2021 022 [facility], [address], [address], [place], [address], 4 07:16:34 MAMMO, screening , digital, bilateral 2020 021 [facility] Orders, [address], [address], [place], [address], 2 07:36:18 MAMMO, screening , digital, bilateral 2019 020 [facility] (Mammography), [address] [facility], [place], [address], 1 07:41:40 MAMMO, screening , digital, bilateral 2018 019 [facility] Orders, [address], [address], [place], [address], 0 07:25:26 Medication Orders None recorded. Patient TargetsNo targets recorded. Patient Instructions Encounter Date Encounter Id Patient Instructions Last Modified By Organization Details Last Modified Time 12/07/2014 [id number] She is here for annual exam. Her [...] irregular every 4 to 6 weeks, no [id number] no for 6 weeks, check u preg, [...] in detail. Not available 12/07/2014 11:43:09 09/01/2018 [id number] She is here for annual exam. She has not been here since 2014. She was seeing [facility] but they gave up on theat and put in a Mirena 2 years ago. No menses. Her diabetes has been Bad. In 07/2016 she started a process to do bariatric surgery at [facility]. She went through all the counseling [...] latest A1C was 10, in 06/18, the [facility] referred her to endocrinology in 06/18, [...] well. 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 She is going back [...] questions answered. Not available 09/01/2018 10:07:54 09/08/2019 [id number] She is here for annual exam, her weight is stable at 367 pounds. Her was in the ICU for 4 weeks due to sepsis, he is better now though. She had a Mirena placed 3 years ago, no menses. note form 2019: She is here for annual exam. She has not been here since 2014. She was seeing [facility] but they gave up on theat and put in a Mirena 2 years ago. No menses. Her diabetes has been Bad. In 07/2016 she started a process to do bariatric surgery at [facility]. She went through all the counseling [...] get the date of IUD insertion at [facility] for us so that we know when [...] detail. rebecca Not available 09/08/2019 15:23:23 04/04/2021 [id number] learning about healthy weight rebecca Not available [...] he would only go in [place] and they could not find a [place] speaking counselor. Note from 2019: She is [...] a process to do bariatric surgery at [facility]. She went through all the counseling ,etc, but things fell through the cracks. She is considering going back again. she had weighted more than 400 pounds last year, she lost some weight this past year with diet and exercise but still weighs 366 pounds today. She appears to be doing well. She and I discussed having her go back to [facility] to get back into their weight [...] breast. [email or web address] Not available 04/04/2021 14:00:20 04/17/2022 [id number] learning about healthy weight Not available 04/17/2022 [...] he would only go in [place] and they could not find a [place] speaking counselor. She appears to be doing [...] DO Not Attach Compendium, Do Not Delete/merge, [id number] 04/04/2021 13:36:07 02/04/09/08/2019 fecal occul t blood , stool Occult Blood negati ve Not Available In-Office Order Internal Use Only DO Not Attach Compendium DO Not Attach Compendium, Do Not Delete/merge, [id number] 09/08/2019 15:00:26 09/01/19 19 09/01/2018 fecal occul t blood , stool Occult Blood negati ve Not Available In-Office Order Internal Use Only DO Not Attach Compendium DO Not Attach Compendium, Do Not Delete/merge, [id number] 09/01/2018 09:30:38 12/08/19 15 12/07/2014 pregn marshal test, urine HCG negati ve Not Available In-Office Order Internal Use Only DO Not Attach Compendium DO Not Attach Compendium, Do Not Delete/merge, [id number] 12/07/2014 10:52:47 12/08/19 15 12/07/2014 gener [email or web address] se [email or web address] RESUL TS OF GEN-P ROBE APTIM A COMBO 2 ASSAY Chlam ydia: NEGAT SÁNCHEZ N. gonor rhoea e: NEGAT SÁNCHEZ GENANIRANJAN RIOS M.D., Patho logis t (Case elect martin sy chuy d 12 09 2014) [facility] INFOR MATIO N: LPS NEG SOURC E: ThinP rep Pap for CT/GC Gross Descr iptio n: ThinP rep Vial Recei joanne. Physi JAYSON Russ N /#[phone]/2 [id number] [phone] Cytop athol ogy servi carlos provi ded by [facility] at the above addre ss. Not Available [facility], Cytopathology Service [address] [facility], [place], [address], 12/09/2014 15:06:31 12/08/19 15 12/07/2014 pap, LB [email or web address] ThinP rep Pap, Image d: NEGAT SÁNCHEZ [...] at the above addre ss. Not Available [facility], Cytopathology Service [address] [place] [address], [address], 12/14/2014 12:26:29 09/01/19 19 09/01/2018 pap, LB [email or web address] ThinP rep Pap, Image d: NEGAT SÁNCHEZ [...] . LPS 5 NEG, Z12.4 Not Available [facility], Cytopathology Service [address] [place] [address], [address], 09/02/2018 17:26:28 09/08/19 20 09/08/2019 pap, LB [email or web address] ThinP rep Pap, Image d: NEGAT SÁNCHEZ [...] . LPS NEG [Z12. 4] Not Available [facility], Cytopathology Service [address] [place], [address], 09/10/2019 13:06:44 04/04/20 21 04/04/2021 PAP1C ASE [email or web address] ThinP rep Pap, Image d: NEGAT SÁNCHEZ [...] LPS 0 NEG [Z12. 4] Not Available [facility], Cytopathology Service [address] [place] [address], [address], 04/12/2021 13:55:52 04/17/2004/17/2022 PAP1C ASE [email or web address] ThinP rep Pap, Image d: NEGAT SÁNCHEZ FOR SQUAM OUS INTRA EPITH ELIAL LESIO N AND MALIG STEPHIE . Una Martinez il , CT( CP) (Case elect mratin sy chuy d 04 22 2022) ADEQU [...] IUD, LPS neg. [z01. 419] Not Available [facility], Cytopathology Service [address] [place] [address], [address], 04/23/2022 08:11:00 04/17/2004/17/2022 fecal occul t blood , stool Occult Blood negati ve Not Available In-Office Order Internal Use Only DO Not Attach Compendium DO Not Attach Compendium, Do Not Delete/merge, [id number] 04/17/2022 10:29:09 Result Notes None recorded. Problems Name Problem SNOMED Code Status Onset Date Resolution Date Notes Provider Name and Address Organization Details Recorded Time Candidal vulvovaginiti s 26693089 Active Not Available [facility] 3 03:01:06 Irritable bowel syndrome 92149460 Active Not Available [facility] 3 03:01:06 Obesity 210790284 Active Not Available [facility] 3 03:01:06 Oligoovulator y dysfunctional uterine bleeding 697948420 Active Adriana Lara MD [address], [place], [address] , [place] - [facility], 5 11:43:08 Uncontrolled type 2 diabetes mellitus 230520293 Active Not Available [facility] 3 03:01:06 Primary female infertility 1727159 Active Not Available [facility] 3 03:01:06 Pruritus of vulva 67958778 Active Not Available [facility] 3 03:01:06 Pain in pelvis 98405904 Active Adriana Lara MD [address], [place], [address] , [place] - [facility], 4 15:07:42 Glycosuria 29031619 Active Adriana Lara MD [address], [place], [address] , [place] - [facility], 4 15:07:42 Problem Notes None recorded. Procedures Surgical History Date Name Laterality Status Provider Name and Address Organization Details Recorded Time 04/05/20 20 Most Recent Mammogram completed Yashira Alonso [place] - [facility], 04/17/2022 10:36:13 08/05/19 Cholecystectomy completed Taryn Beasley [place] - [facility], 11/10/2012 13:22:27 Imaging Results None recorded. Procedure Notes None recorded. Medical Equipment None Reported. Allergies Allergen ID Allergen Name Allergen Category Reaction Reaction Severity Criticality Documentation Date Start Date Code Code System Note Provider Name and Address Organization Details Recorded Time 38[address] [facility] environfl nt,medica tion rash Not available Not available 09/08/2019 40566 RxNorm Yashira Celeste [place] [facility] in [facility], 0 14:53:01 7561 Product containin g penicilli n (product) medicatio n rash Not available Not available 11/10/2012 01060 8001 SNOMED Taryn Beasley [place] - [place] in [facility], 3 13:11:08 Medications Name Sig Start [...] t Available Januvia 100 mg tablet TOME ADNIE TABLETA POR VIA ORAL TODOS LOS ORTEZ [...] henidate ER 40 mg capsule,ex tended release [id number] -50 TAKE 1 CAPSULE BY MOUTH EVERY [...] Available Not Available Not Available Afluria Quad 0399-8583 (PF) 60 mcg (15 mcg x 4)/0.5 mL IM syringe active Not Available Not Available N ot Available FreeStyle Alexei 14 Day [place] FOR TESTING GLUCOSE LEVELS active Not Available [...] 9 175.26 cm 95 /min 54.2 kg/m2 025533. 68 g 122 mm[Hg] 65 mm[Hg] Taryn Beasley [place] - [place] in [facility], 9 09:12:36 Date Recorded Body weight Body mass index (BMI) Body height Heart rate Systolic blood pressure Diastolic blood pressure Provider Name and Address Organization Details Last Updated DateTime 0 521577. 12 g 55 kg/m2 173.99 cm 110 /min 132 mm[Hg] 77 mm[Hg] Yashira Orozco in [facility], 0 14:53:44 Date Recorded Body height Body temperature Body mass index (BMI) Body weight Heart rate Systolic blood pressure Diastolic blood pressure Provider Name and Address Organization Details Last Updated DateTime 1 173.99 cm 97.2 [degF] 58.6 kg/m2 648192. 34 g 104 /min 141 mm[Hg] 75 mm[Hg] Yashira Orozco in [facility], 1 13:34:29 Date Recorded Body weight Body mass index (BMI) Body height Body temperature Heart rate Systolic blood pressure Diastolic blood pressure Provider Name and Address Organization Details Last Updated DateTime 2 008447. 19 g 54.3 kg/m2 172.72 cm 98.1 [degF] 93 /min 142 mm[Hg] 79 mm[Hg] Yashira Alonso [place] - [place] in [facility], 2 10:33:37 Date Recorded Body weight Heart rate Body mass index (BMI) Body height Systolic blood pressure Diastolic blood pressure Provider Name and Address Organization Details Last Updated DateTime 5 569761. 1769 g 103 /min 54.6 kg/m2 175.26 cm 119 mm[Hg] 71 mm[Hg] Yashira Alonso [place] - [place] in [facility], 5 10:17:20 Social History Question Answer Notes LastModified by Organizat ion Details LastModified Time Tobacco Smoking Status Never Smoker Not Available [facility] 06/07/2020 03:19:40 What Is Your Level Of Caffeine Consumption? Occasional [id number] Information not available 06/07/2020 In The 14 [...] For COVID-19? No Information not available 04/04/2021 What Type Of Diet Are You Following? REGULAR [id number] Information not available 06/07/2020 Which Illicit Or Recreational Drugs Have You Used? None [id number] Information not available 06/07/2020 Do You Reside In Or Have You Traveled To An Area Where Ebola Virus Transmission Is Active? No [id number] Information not available 06/07/2020 Education Post Graduate Information not available 11/10/2012 What Is The Highest Grade Or Level Of School You Have Completed Or The Highest Degree You Have Received? [id number] Information not available 04/04/2021 Who Is Your Employer? [employer] Information not available 04/17/2022 How Many Days In The Past Year Have You Had A Heavy Drinking Consumption (4+ Female, 5+ Male)? 0 [employer]et[employer] Information no t available 09/01/2018 Are There Any Guns Present In Your Home? No Information not available 04/04/2021 High Number Of Sexual Partners No Information not available 09/01/2018 To Which Gender Do You Self-identify? Female Information not available 09/01/2018 Marital Status [employer] n not available 11/10/2012 What Was The Date Of Your Most Recent Tobacco Screening? 04/04/2021 Information not available 04/04/2021 What Is Your Relationship Status? Information not available 04/04/2021 Are You Sexually Active? Yes [id number] Information not available 06/07/2020 How Much Tobacco Do You Smoke? No [id number] Information not available 06/07/2020 General Stress Level Medium Information not available 09/08/2019 Have You Recently (within The Last 12 Weeks, Or During A Current ) Traveled To Or Lived In A Zika-affected Area? No Information not available 09/01/2018 Sex: Female Functional Status Question Answer Note LastModified by Organizat ion Details LastModified Time Do you use any illicit or recreational drugs? No Information not available 04/04/2021 Do you or have you ever used any other forms of tobacco or nicotine? No Information not available 04/04/2021 What is your level of alcohol consumption? None [id number] Information not available 06/07/2020 Do you or have you ever used smokeless tobacco? Never used smokeless tobacco [id number] Information not available 06/07/2020 Are you currently employed? 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 Never used electronic cigarettes [id number] Information not available 06/07/2020 What is your exercise level? None [id number] Information not available 06/07/2020 Mental Status Question Answer Note LastModified by Organization D etails LastModified Time Do you feel stressed (tense, restless, nervous, or anxious, or unable to sleep at night)? [id number] Information not available 04/04/2021 Family History Relationship Description Onset Age of [...] Adriana Lara MD [address], [place], [address], [place] Orozco in [facility], 11/10/2012 13:43:51 Tdap 3 completed [place] in [facility], 12/11/2012 15:22:23 Influenza, split virus, quadrivalent, preservative 9 completed [place] Sexton in [facility], 09/01/2018 09:26:24 COVID-19, mRNA, LNP-S, PF, 100 mcg/0.5mL dose or 50 mcg/0.25mL dose 1 completed [place] Ramos in [facility], 04/04/2021 13:38:30 Influenza, split virus, quadrivalent, preservative 1 completed [place] Ramos in [facility], 04/17/2022 10:34:55 Past Encounters Encounter ID Performer Location Encounter Start Date Encounter Closed Date Diagnosis/Indication Diagnosis SNOMED-CT Code Diagnosis ICD10 Code Diagnosis Note [id number] MD ADRIANA Dickson MD [address] [place] [address] 11/10/2012 12:51:19 11/11/2012 08:37:47 [id number] MD ADRIANA Dickson MD [address] [place] [address] 12/11/2012 15:08:24 12/12/2012 16:10:03 [id number] MD ADRIANA Dickson MD [address],[place] [address] 08/21/2013 13:33:26 08/21/2013 15:51:36 Pain in pelvis 96422889 Acute lowe r urinary tract infection 281021940 Glycosuria 72522784 [id number] MD ADRIANA Dickson MD [address] [place] [address],[place] [address] 11/13/2013 09:28:08 11/13/2013 13:10:39 Specialized medical examination 67158752 [id number] MD ADRIANA Dickson MD [address] [place] [address],[place] [address] 12/07/2014 10:02:59 12/07/2014 13:34:46 Specialized medical examination 64749919 Venereal d isease screening 981226524 Oligoovula tory dysfunctional uterine bleeding 474708920 [id number] MD ADRIANA Dickson MD [address] [place] [address],[place] [address] 09/01/2018 09:04:26 09/01/2018 12:06:59 Specialized medical examination 23492697 Z01.419 Screening for malignant neoplasm of rectum 653635288 Z12.12 Screening mammography 24 982956 Z12.31 [id number] MD ADRIANA Dickson MD [address] [place] [address],[place] [address] 09/08/2019 14:46:50 09/08/2019 15:34:18 Specialized medical examination 94586982 Z01.419 Screening for malignant neoplasm of rectum 103844878 Z12.12 Screening mammography 24 579909 Z12.31 [id number] MD ADRIANA Dickson MD [address] [place] [address],[place] [address] 04/04/2021 13:29:45 04/04/2021 14:48:20 Specialized medical examination 84474670 Z01.419 Screening for malignant neoplasm of rectum 280462974 Z12.12 Screening mammography 24 190780 Z12.31 [id number] MD ADRIANA Dickson MD [address] [facility] [address] [place] [address] 04/17/2022 10:28:03 04/17/2022 11:34:15 Specialized medical examination 15119878 Z01.419 Screening for malignant neoplasm of rectum 329598858 Z12.12 Screening mammography 24 494517 Z12.31 Health Concerns Section Related Observation LastModified by Organization Detai ls LastModified Time None Recorded Concern Status LastModified by Organization Details LastModified Time None Recorded Advance Directives Directive None Recorded Payers Encounter Date Sequence Insurance Name Policy Number Policy Fountain Covered Member ID Fountain Member ID Guarantor Name 12/07/2014 1 [facility] [id number] Glorymar López [id number] Glorymar López Colon 09/01/2018 1 [facility] [id number] Glorymar López [id number] Glorymar López Colon 09/08/2019 1 [facility] [id number] Glorymar López [id number] Glorymar López Colon 04/04/2021 1 [facility] [id number] Glorymar López [id number] Glorymar López Colon 04/17/2022 1 [facility] [id number] Glorymar López [id number] Glorymar López Colon Notes Date Note Type Note Provider Name and Address Organization Details Recorded Time 09/01/2018 text/html She is here for annual exam. She has not been here since 2014. She was seeing [facility] but they gave up on theat and put in a Mirena 2 years ago. No menses. Her diabetes has been Bad. In 07/2016 she started a process to do bariatric surgery at [facility]. She went through all the counseling [...] latest A1C was 10, in 06/18, the [facility] referred her to endocrinology in 06/18, she was given instructions for rescue insulin doses when her sugars are high, she is doing that now, she had an A1C drawn on 11/25/14 but has not received the results yet. Adriana Lara MD [address] [facility],[address], [place], [address], [place] - [facility], 09/01/2018 10:08:27 09/08/2019 text/html She is [...] a process to do bariatric surgery at [facility]. She went through all the counseling ,etc, but things fell through the cracks. She is considering going back again. she had weighted more than 400 pounds last year, she lost some weight this past year with diet and exercise but still weighs 366 pounds today. Adriana Lara MD [address] [facility],[address], [place], [address], [place] - [facility], 09/08/2019 15:23:49 04/04/2021 text/html She is here for annual exam, weight is 391 pounds, BMI is 58.6. She had a Mirena inserted 08/2016. No menses. Her mother earlier this year due to natural causes, in [place], she is still grieving. She and her are , she wanted to go to couples counseling but he would only go in [place] and they could not find a [place] speaking counselor. Note from 2020: She is here for annual exam, her weight is stable at 367 pounds. Her was in the ICU for 4 weeks due to sepsis, he is better now though. She had a Mirena placed 3 years ago, no menses. __ Note from 2018: She is here for annual exam. She has not been here since 2014. She was seeing [facility] infertility but they gave up on theat and put in a Mirena 2 years ago. No menses.Her diabetes has been Bad. In 07/2016 she started a process to do bariatric surgery at [facility]. She went through all the counseling ,etc, but things fell through the cracks. She is considering going back again. she had weighted more than 400 pounds last year, she lost some weight this past year with diet and exercise but still weighs 366 pounds today. Adriana Lara MD [address], [place], [address], [place] [facility], 04/04/2021 14:00:40 04/17/2022 text/html Her weight [...] he would only go in [place] and they could not find a [place] speaking counselor. Adriana Lara MD [address], [place], [address], [place] - [facility], 04/17/2022 11:00:04 OBGyn Episode No OBEpisode recorded.
--- OUTSIDE RECORDS SUMMARY | 2024-12-15 08:46 | XMS_ITS | Clinical Summary ---
Author Organization [employer] Address [address] [facility] 7t [place] [address] Care Team Providers Care E Merchant Name Role Phone Unavailable Primary Care Provider [...] 2 diabetes mellitus without complication, unspecified whether fdc insulin use ([facility]) Inject 1.5 mg under the [...] Encounters Date Type Department Care Team Description 12/15/2024 Orders Only GENERIC EXTERNAL DATA DEPARTMENT Provider, Generic External Data 11/17/2024 Orders Only GENERIC EXTERNAL DATA DEPARTMENT Provider, Generic External Data 11/03/2024 Orders Only GENERIC EXTERNAL DATA DEPARTMENT Provider, Generic External Data 11/02/2024 Refill [facility] [address] [place] [address] Braulio Carbajal MD 10/19/2024 Refill [facility] [address] [place] [address] Braulio Carbajal MD 10/13/2024 Refill [facility] [address] [place] [address] Braulio Carbajal MD Primary hypertension from Last [...] enough money to get more: Never True 10/ Transportation Answer Date Recorded In the past [...] Associated Diagnosis Comments GLUCOSE, WHOLE BLOOD Routine 12/15/2024 8:38 AM EDT GLUCOSE, WHOLE BLOOD Routine 11/17/2024 11:39 AM EDT GLUCOSE, WHOLE BLOOD Routine 11/03/2024 8:13 AM EDT BI MAMMOGRAM DIAGNOSTIC TOMOSYNTHESIS BILATERAL Routine 05/25/2024 1:00 PM EDT LIPID PANEL, STANDARD Routine 01/01/2023 10:20 AM EDT Type 2 diabetes mellitus without complication, unspecified whether fdc insulin use (CMS/HCC) ZZZ HISTORICAL HEPATITIS C AB W/REFL TO HCV RNA, QN, PCR Routine 01/24/2022 8:19 AM EDT HIV 1/2 ANTIGEN/ANTIBODY, FOURTH GENERATION W/RFL Routine 01/24/2022 8:19 AM EDT from Last 3 Months or Most Recently Relevant to Health Maintenance Results * (ABNORMAL) Glucose, Whole Blood (12/15/2024 8:38 AM EDT) Only the most recent of3 resultswithin the time period is included. Glucose, Whole Blood 139(H) 60 - 115 mg/dL [facility] Comment:METER #: [id number] Testing performed in the Endocrinology Department [address] , [address], [facility]. 12/15/2024 8:38 AM EDT 12/15/2024 8:42 AM EDT us Generic External Data Provider LAB BLOOD ORDERAB LES Final Result [facility] [address] [place] [address] [phone] * BI Mammogram Diagnostic Tomosynthesis Bilateral (05/25/2024 1:00 PM EDT) Anatomical Region Laterality Modality Breast Bilateral Mammography 05/25/2024 1:00 PM EDT Narrative 05/25/2024 4:12 PM EDT ? [facility] ? [address] ?[place] [address] ? Mammography Report ? Signed ? Patient: López,Glorymar ?MR#: [id number] ?? [id number] ? : 1975 ?Acct:[id number] ? Age/Sex: 48 / F ?ADM Date: 10/21/24 ? Loc: HO.MAMMO ? Attending Dr: Ryan Prescott MD ? Ordering Physician: Ryan Prescott MD ?Results: 2Ben ?? ign Findings ? Date of Service: 05/25/24 ?Follow Up: 1 Year From Orig ?? inal Mammogram ? Procedure(s): MM tomosynthesis diagnostic BI ?? Accession Number(s): [id number] ? cc: Braulio Carbajal MD; Ryan Prescott [...] DD/ 1300 ? TD/TT: 05/25/24 1350 ? School Physical Therapist: ? Procedure Note Tari, Dave - 05/25/2024 [facility] [address] [place] [address] Mammography Report Signed Patient: Ava LópezDenisse#: [id number] : 1975Acct:[id number] Age/Sex: 48 / FADM Date: 05/25/24 Loc: HO.MAMMO Attending Dr: Ryan Prescott MD Ordering Physician: Ryan Prescott MDResults: 2Ben ign Findings Date of Service: 05/25/24Follow Up: 1 Year From Orig ina Mammogram Procedure(s): MM tomosynthesis diagnostic BI Accession Number(s): [id number] cc: Braulio Carbajal MD; Ryan Prescott MD [...] 05/25/24 1609 DD/ 1300 TD/TT: 05/25/24 1350 School Physical Therapist: [facility] External Provider IMG BI PROCEDURES Edited Result - Final * Lipid Panel, Standard (01/01/2023 10:20 AM EDT) Triglycerides 73 mg/dL [facility] Comment:Desirable Triglyceri de: less than 150 mg/dLBorderline High Triglyceride 150-199 mg/dLHigh Triglyceride: 200-499 mg/dLVery High Triglyceride: greater than or equal to 5OO mg/dL Cholesterol 101 mg/dL [facility] Comment:Desirable Cholestero l: less than 200 mg/dLBorderline High Cholesterol: 200-239 mg/dLHigh Cholesterol: greater than 239 mg/dL LDL Cholesterol Calculated 53 mg/dl [facility] Comment:Desirable LDL: less than 100 mg/dLNear Optimal/Above Optimal LDL: 110- 129 mg/dLBorderline High LDL: 130-159 mg/dLHigh LDL: 160-189 mg/dLVery High LDL: greater than or equal to 190 mg/dL HDL Cholesterol 34 mg/dL [facility] Comment:Desirable HDL: great er than 40 mg/dL Note: This HDL assay may give artificially low results in patients with liver disease. 01/01/2023 10:2 0 AM EDT 01/01/2023 10:20 AM EDT [facility] External Provider LAB BLO OD ORDERABLES Final Result [facility] [address] [place] [address] [phone] * HEPATITIS C AB W/REFL TO HCV RNA, QN, PCR (01/24/2022 8:19 AM EDT) HEPATITIS C ANTIBODY NON-REACT SÁNCHEZ NON-REACT SÁNCHEZ [facility] INDEX 0.02 <1.00 [facility] Comment: ?? HCV antibody was non-reactive. There is no laboratory ?? evidence of HCV infection. ?? In most cases, no further action is required. However, if recent HCV exposure is suspected, a test for HCV RNA (test code 52702) is suggested. ?? For additional information please refer to http://[employer].NTRglobal/faq/YNN65c9 (This link is being provided for informational/ educational purposes only.) ?? 01/24/2022 8:19 AM EDT Braulio Campbell MD HISTORICAL/NON ORD ERABLE LABS Final Result [facility] [address] * HIV 1/2 ANTIGEN/ANTIBODY,FOURTH GENERATION W/RFL (01/24/2022 8:19 AM EDT) HIV-1/2 ANTIGEN AND ANTIBODIES, 4TH GENERATION W/ REFLEX NON-REACT SÁNCHEZ NON-REACT SÁNCHEZ [facility] Comment: HIV-1 antigen and [...] ? For additional information please refer to http://[employer].NTRglobal/faq/RJH829 (This link is being provided for informational/ educational purposes only.) ? The performance of this assay has not been clinically validated in patients less than 2 years old. ?? 01/24/2022 8:19 AM EDT us Braulio Campbell MD LAB BLOOD ORDERABL ES Final Result [facility] [address] from Last 3 Months or Most Recently Relevant to Health Maintenance Insurance [employer] MD [place]AYLA [id number]
--- OUTSIDE RECORDS SUMMARY | 2024-12-15 08:46 | XMS_ITS | Encounter Summary ---
Author Organization [employer] Address [address] [place] [address] Care Team Providers Care Textile Examiner Name Role Phone Unavailable Primary Care Provider Unavailabl e Encounter Details Date Type Department Care Team ([facility] st Contact Info) Description 12/15/2024 Orders Only GENERIC EXTERNAL DATA [...] WHOLE BLOOD Routine 12/15/2024 8:38 AM EDT documented in this encounter Results * (ABNORMAL) Glucose, Whole Blood (12/15/2024 8:38 AM EDT) Glucose, Whole Blood 139(H) 60 - 115 mg/dL [facility] Comment:METER #: [id number] Testing performed in the Endocrinology Department [address] , [address], [place]. 12/15/2024 8:38 AM EDT 12/15/2024 8:42 AM EDT us Generic External Data Provider LAB BLOOD ORDERAB LES Final Result [facility] [address] [place] [phone] documented in this encounter Visit Diagnoses Not on filedocumented in this encounter
--- OUTSIDE RECORDS SUMMARY | 2024-12-15 08:46 | XMS_ITS | Encounter Summary ---
Author Organization [employer] Address [address] [place] [address] [address], [place] [address] Care Team Providers Care Pbx Technician Name Role Phone Braulio Carbajal MD Primary Care Prov ider Reason for Visit * Reason Comments Med Refill Encounter Details Date Type Department Care Team (Late st Contact Info) Description 10/29/2022 Refill [facility] [address] [place] [address] Braulio Carbajal MD [address] [place] [address] Social History Tobacco Use Types Packs/Day Years [...] on filedocumented in this encounter Care Teams Pbx Technician Relationship Specialty Start Date End Date Braulio Carbajal MD [address] [place] [address] PCP - General Internal Medicine 12/14/19 04/28/24 documented as of this encounter
== END 2024-12-15 08:54 | disposition home or self-care (01) ==
LOC: HO.ENCR 08:30
PROVIDERS: PCP Internal Medicine; Visit Provider Physician Assistant Medical
DX: E11.319 Type 2 diabetes mellitus with unspecified diabetic retinopathy without macular edema (principal)

== ENCOUNTER → 2024-12-15 08:29 | Outpatient (BNVA) | payer OTHER, SELFPAY | PROVIDERS: PCP Internal Medicine; Visit Provider Physician Assistant Medical | DX: E11.319 Type 2 diabetes mellitus with unspecified diabetic retinopathy without macular edema (principal); Z79.4 Long term (current) use of insulin; Z79.84 Long term (current) use of oral hypoglycemic drugs; Z79.899 Other long term (current) drug therapy | CPT/HCPCS: 82947 ==

== ENCOUNTER 2024-12-22 08:12 | Outpatient (AMB) | payer OTHER, SELFPAY ==
--- NOTE | 2024-12-22 08:05 | A.OFFWM_ITS ---
Intake Intake Visit Reasons: VIDEO OP Therapy Allergies Penicillins Allergy (Intermediate, Verified 12/15/24 08:34) Shortness of Breath pt states no food allergies Allergy (Unknown, Uncoded 12/15/24 08:34) Unknown [facility] Medical History (Updated 11/17/24 @ 12:28 by IDALMIS Cortes) Type 2 diabetes mellitus with retinopathy Asthma Insomnia Neuropathy Breast calcification, right Adenocarcinoma determined by biopsy of liver Diabetic retinopathy Anxiety and depression GERD (gastroesophageal reflux disease) SOLE on CPAP ADHD Hyperlipidemia HTN (hypertension) with goal to be determined Diabetes mellitus Morbid obesity Surgical History Hx of LASIK History of cholecystectomy Family History Mother Diabetes Heart problem Father Hypertension Maternal Grandmother Primary cancer of bone marrow Maternal Grandfather Prostate cancer Social History Are you a primary inspector health care facilities to a significant other at home: No Do you presently have visiting nurse or other home services: No Alcohol intake: never Patient Tobacco Use Status: Never used Tobacco Female Reproductive History Menstrual Age of Menarche: 13 Behavioral Health Assessment Weight Management Therapy Therapy Notes Details Subjective: The patient reports ongoing high levels of anxiety, noting regular use of Ativan in the mornings to manage symptoms. A recent immigration-related incident involving her has been a significant stressor, contributing to emotional exhaustion. She described feeling emotionally tired of always being the ?strong, independent woman,? and expressed feelings of loneliness and a lack of support. The patient shared that her prescriber, Manuelito Christensen, has provided FMLA documentation due to burnout symptoms. Objective: Patient presented for a follow-up session via Telehealth. Using a CBT approach, we explored thought patterns linked to the patient's anxiety, including internalized beliefs about needing to remain emotionally strong. Immigration-related stress and caregiving roles were identified as parisi triggers contributing to feelings of inadequacy and isolation. Cognitive restructuring was used to challenge unhelpful thoughts and promote self- compassion. Psychoeducation was provided on chronic stress and avoidance behaviors. We practiced anxiety management techniques (e.g., grounding, thought-stopping, paced breathing) and co-developed a coping plan to reduce reliance on Ativan. The patient was encouraged to identify a support person, and behavioral activation strategies were discussed to increase emotional relief and self- efficacy and to better utilize her FMLA. . Assessment/Response: * Mental status: Mild to moderate impairment in emotional functioning noted. Affect anxious and mood congruent. Patient described herself as emotionally drained and reported difficulty concentrating and managing day-to-day stress. * Risk: No current or historical risk of suicidal ideation, self-harm, or harm to others reported. Insight appears intact; patient is engaged in treatment and motivated to improve functioning and reduce distress. Assessment & Plan Assessment & Plan (1) ADHD: Code(s): F90.9 - Attention-deficit hyperactivity disorder, unspecified type Qualifiers: Attention deficit-hyperactivity disorder type: combined inattentive- hyperactive Qualified Code(s): F90.2 - Attention-deficit hyperactivity disorder, combined type (2) Panic disorder: Code(s): F41.0 - Panic disorder [episodic paroxysmal anxiety] (3) Depression, unspecified: Code(s): F32.A - Depression, unspecified Plan Continue bi-weekly behavioral health sessions to support anxiety management and emotional processing. Homework: Patient will develop a weekly schedule incorporating rest, meaningful activities, and coping strategies discussed in session, utilizing her FMLA time to support mental health recovery. Next appointment scheduled for 01/05/2025 at 8:00 AM via Telehealth. 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
--- OUTSIDE RECORDS SUMMARY | 2024-12-22 08:19 | XMS_ITS | Encounter Summary ---
Author Organization [employer] Address [address] [facility] [address]t [place] [address] Care Team Providers Care Hi Low Truck Driver Name Role Phone Unavailable Primary Care Provider Unavailabl e Reason for Visit * Reason Comments Med Refill Encounter Details Date Type Department Care Team ([facility] st Contact Info) Description 10/19/2024 Refill [facility] [address] [place] [address] Braulio Carbajal MD [address] [place] [address] Social History Tobacco Use Types Packs/Day Years [...]
--- OUTSIDE RECORDS SUMMARY | 2024-12-22 08:19 | XMS_ITS | Encounter Summary ---
Author Organization [employer] Address [address] [facility] [address] [place] [address] Care Team Providers Care Ceramic Tile Installation Helper Name Role Phone Unavailable Primary Care Provider Unavailabl e Reason for Visit * Reason Comments Med Refill Encounter Details Date Type Department Care Team ([facility] st Contact Info) Description 10/13/2024 Refill [facility] [address] [place] [address] Braulio Carbajal MD [address] [place] [address] Primary hypertension Social History Tobacco Use Types [...]
--- OUTSIDE RECORDS SUMMARY | 2024-12-22 08:20 | XMS_ITS | Clinical Summary ---
Author Organization [facility] Address [address] [place] [address] Care Team Providers Care Special Equipment Technician Name Role Phone Braulio Lopez Primary Care Provider [phone] Allergies Active Allergy Reactions Criticality Noted Date [...] age to complete this topic Care Teams Special Equipment Technician Relationship Specialty Start Date End Date Braulio Lopez PCP - General Internal Medicine 02/01/22
--- OUTSIDE RECORDS SUMMARY | 2024-12-22 08:20 | XMS_ITS | Data Portability ---
Author Organization [place] [facility] Address [address] [place] [phone] Care Team Providers Care Take Out Waiter/Waitress Name Role Phone JAVIER LANGLEY Referring Provider [phone] Assessment Encounter Date Assessment Date Assessment LastModified by Organization Details LastModified Time 06/18/2024 06/18/2024 IMPRESSION: 49-year-old [id number] t woman with RIGHT lateral epicondylitis. PLAN: [...] Gonzalez MS, PA-C in indirect conjunction with [facility] provider Clark Andino MD. He agrees [...] scale). 2023 024 [email or web address] [facility], [address] [place] [address], [address], [place], [address], 5 15:48:51 Surgeries None recorded. Imaging XR, hip, unilateral, 2 or 3 view 2023 024 [email or web address] [facility], [address], [address], [place], [address], 4 11:51:40 XR, elbow, 3 or more view 2023 024 [facility], [address], [address], [place], [address], 4 16:54:16 Medication Orders meloxicam 15 mg tablet 2023 024 [facility], [address] [facility], [place], [address], 4 14:11:51 Patient TargetsNo targets recorded. Patient Instructions Encounter Date Encounter Id Patient Instructions Last Modified By Organization Details Last Modified Time 06/18/2024 [id number] tennis elbow: exercises Not available 06/18/2024 14:11:37 [...] LEFT}} elbow. Not available 06/18/2024 13:55:08 07/07/2024 [id number] {{2 3 4* 5 6 7 8 [...] Organization Details Recorded Time Lateral epicondyli tis 541111308 Active [address], [place], [address] , [place] [facility], P 4 14:10:53 Lateral epicondyli tis 756025149 Active [address], [place], [address] , [place] [facility], P 4 14:11:09 Osteoarthr itis of left hip joint 4308510717374 08 Active [address], [place], [address] , [place] [facility], P 4 11:06:02 Problem Notes None recorded. [...] SNOMED-CT Code Diagnosis ICD10 Code Diagnosis Note [id number] Oscar Avina MD [facility] [address] [place] [address] [phone] 06/18/2024 13:20:00 06/18/2024 14:16:30 Pain of elbow region 17999844 M25.521 Lateral epicondylitis 20 7942099 M77.10 [id number] GERARD GONZALEZ PA-C [address] [place] [phone] 07/07/2024 10:17:23 07/07/2024 11:04:15 Pain of hip region 45170637 M25.552 Osteoarthr itis of left hip joint 0430709153 70257 M16.12 Health Concerns Section Related Observation LastModified by Organization Detai ls LastModified Time None Recorded Concern Status LastModified by Organization Details LastModified Time None Recorded Advance Directives Directive None Recorded Payers Encounter Date Sequence Insurance Name Policy Number Policy Fountain Covered Member ID Fountain Member ID Guarantor Name 06/18/2024 1 [employer] [id number] Glorymar López Colon [id number] Glorymar López-Col on 07/07/2024 1 [employer] [id number] Glorymar López Colon [id number] Glorymar López-Col on Notes Date Note Type [...] 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 She is [id number] . Oscar Avina MD [address], [place], [address], [place] [facility], P 06/18/2024 14:13:14 07/07/2024 text/html 49-year-old fema [...] GERARD GONZALEZ PA-C [address], [place], [address], [place] [facility], P 07/07/2024 11:07:40 OBGyn Episode No OBEpisode recorded.
--- OUTSIDE RECORDS SUMMARY | 2024-12-22 08:20 | XMS_ITS | Data Portability ---
Author Organization [place] - [facility],, ADRIANA LARA MD Address [address] [address] Assessment No assessment recorded. Plan of Treatment Reminders Order Date Submit Date Provider Last Modified By Organization Details Last Modified Time Details Appointments None recorded. Lab pap test, thinprep, cervical 2021 022 [email or web address] [facility], Cytopathology Service, [address] [place] [address], [address], 2 07:36:24 fecal occult blood, stool 2021 022 [email or web address] In-Office Order, Internal Use Only DO Not Attach Compendium DO Not Attach Compendium, Do Not Delete/merge, [id number] 2 11:34:07 pap test, thinprep, cervical 2020 021 [email or web address] [facility], Cytopathology Service, [address] [place] [address], [address], 1 07:14:16 fecal occult blood, stool 2020 021 [email or web address] 1 In-Office Order, Internal Use Only DO Not Attach Compendium DO Not Attach Compendium, Do Not Delete/merge, [id number] 1 13:58:54 pap test, thinprep, cervical 2019 020 [email or web address] [facility], Cytopathology Service, [address] [place] [address], [address], 0 08:59:10 fecal occult blood, stool 2019 020 [email or web address] In-Office Order, Internal Use Only DO Not Attach Compendium DO Not Attach Compendium, Do Not Delete/merge, [id number] 0 08:59:10 pap test, thinprep, cervical 2018 019 [facility], Cytopathology Service, [address] [place] [address], [address], 9 04:32:23 fecal occult blood, stool 2018 019 [email or web address] In-Office Order, Internal Use Only DO Not Attach Compendium DO Not Attach Compendium, Do Not Delete/merge, [id number] 9 07:31:20 pap test, thinprep, cervical 2014 015 [facility], Cytopathology Service, [address] [place] [address], [address], 5 12:26:29 chlamydia sp, culture, unspecifi ed specimen 2014 015 [facility], Cytopathology Service, [address] [place] [address], [address], 5 08:24:20 NG DNA, PCR, genital 2014 015 [facility], Cytopathology Service, [address] [place] [address], [address], 5 08:24:20 test, urine 2014 015 [email or web address] 1 In-Office Order, Internal Use Only DO Not Attach Compendium DO Not Attach Compendium, Do Not Delete/merge, [id number] 5 11:43:08 Referral None recorded. Procedures None recorded. Surgeries None recorded. Imaging MAMMO, screening , digital, bilateral 2021 022 [facility], [address], [address], [place], [address], 4 07:16:34 MAMMO, screening , digital, bilateral 2020 021 [facility] Orders, [address], [address], [place], [address], 2 07:36:18 MAMMO, screening , digital, bilateral 2019 020 [facility] (Mammography), [address] [facility], [place], [address], 1 07:41:40 MAMMO, screening , digital, bilateral 2018 019 [facility] Orders, [address], [address], [place], [address], 0 07:25:26 Medication Orders None recorded. Patient TargetsNo targets recorded. Patient Instructions Encounter Date Encounter Id Patient Instructions Last Modified By Organization Details Last Modified Time 12/07/2014 [id number] She is here for annual exam. Her [...] irregular every 4 to 6 weeks, no a1kvuyk no for 6 weeks, check u preg, [...] in detail. Not available 12/07/2014 11:43:09 09/01/2018 [id number] She is here for annual exam. She has not been here since 2014. She was seeing [facility] but they gave up on theat and put in a Mirena 2 years ago. No menses. Her diabetes has been Bad. In 07/2016 she started a process to do bariatric surgery at [facility]. She went through all the counseling [...] latest A1C was 10, in 06/18, the [facility] infertility referred her to endocrinology in 06/18, [...] well. Advised to follow up with her truck caterer about her diabetes. She is going back [...] questions answered. Not available 09/01/2018 10:07:54 09/08/2019 [id number] She is here for annual exam, her weight is stable at 367 pounds. Her was in the ICU for 4 weeks due to sepsis, he is better now though. She had a Mirena placed 3 years ago, no menses. note form 2019: She is here for annual exam. She has not been here since 2014. She was seeing [facility] infertility but they gave up on theat and put in a Mirena 2 years ago. No menses. Her diabetes has been Bad. In 07/2016 she started a process to do bariatric surgery at [facility]. She went through all the counseling [...] get the date of IUD insertion at [facility] for us so that we know when [...] detail. rebecca Not available 09/08/2019 15:23:23 04/04/2021 [id number] learning about healthy weight rebecca Not available 04/04/2021 13:58:54 She is here for annual exam, weight is 391 pounds, BMI is 58.6. She had a Mirena inserted 08/2016. No menses. Her mother earlier this year due to natural causes, in [place], she is still grieving. She and her are , she wanted to go to couples counseling but he would only go in Portuguese and they could not find a ambler Portuguese speaking counselor. Note from 2019: She is [...] a process to do bariatric surgery at [facility]. She went through all the counseling ,etc, but things fell through the cracks. She is considering going back again. she had weighted more than 400 pounds last year, she lost some weight this past year with diet and exercise but still weighs 366 pounds today. She appears to be doing well. She and I discussed having her go back to [facility] to get back into their weight [...] breast. [email or web address] Not available 04/04/2021 14:00:20 04/17/2022 [id number] learning about healthy weight Not available 04/17/2022 [...] this year due to natural causes, in [place], she is still grieving. She and her are , she wanted to go to couples counseling but he would only go in Portuguese and they could not find a ambler Portuguese speaking counselor. She appears to be doing [...] DO Not Attach Compendium, Do Not Delete/merge, [id number] 04/04/2021 13:36:07 02/04/09/08/2019 fecal occul t blood , stool Occult Blood negati ve Not Available In-Office Order Internal Use Only DO Not Attach Compendium DO Not Attach Compendium, Do Not Delete/merge, [id number] 09/08/2019 15:00:26 09/01/19 19 09/01/2018 fecal occul t blood , stool Occult Blood negati ve Not Available In-Office Order Internal Use Only DO Not Attach Compendium DO Not Attach Compendium, Do Not Delete/merge, [id number] 09/01/2018 09:30:38 12/08/19 15 12/07/2014 pregn marshal test, urine HCG negati ve Not Available In-Office Order Internal Use Only DO Not Attach Compendium DO Not Attach Compendium, Do Not Delete/merge, [id number] 12/07/2014 10:52:47 12/08/19 15 12/07/2014 gener [email or web address] se [email or web address] RESUL TS OF GEN-P ROBE APTIM A COMBO 2 ASSAY Chlam ydia: NEGAT SÁNCHEZ N. gonor rhoea e: NEGAT SÁNCHEZ GENANIRANJAN RIOS M.D., Patho logis t (Case elect martin sy chuy d 12 09 2014) [facility] INFOR MATIO N: LPS NEG SOURC E: ThinP rep Pap for CT/GC Gross Descr iptio n: ThinP rep Vial Recei joanne. Physi JAYSON Russ N /#[phone]/2 [id number] [phone] Cytop athol ogy servi carlos provi ded by [facility] at the above addre ss. Not Available [facility], Cytopathology Service [address] [facility], [place], [address], 12/09/2014 15:06:31 12/08/19 15 12/07/2014 pap, LB [email or web address] ThinP rep Pap, Image d: NEGAT SÁNCHEZ [...] at the above addre ss. Not Available [facility], Cytopathology Service [address] [place] [address], [address], 12/14/2014 12:26:29 09/01/19 19 09/01/2018 pap, LB [email or web address] ThinP rep Pap, Image d: NEGAT SÁNCHEZ [...] . LPS 5 NEG, Z12.4 Not Available [facility], Cytopathology Service [address] [place] [address], [address], 09/02/2018 17:26:28 09/08/19 20 09/08/2019 pap, LB [email or web address] ThinP rep Pap, Image d: NEGAT SÁNCHEZ [...] . LPS NEG [Z12. 4] Not Available [facility], Cytopathology Service [address] [place], [address], 09/10/2019 13:06:44 04/04/20 21 04/04/2021 PAP1C ASE [email or web address] ThinP rep Pap, Image d: NEGAT SÁNCHEZ [...] LPS 0 NEG [Z12. 4] Not Available [facility] Cytopathology Service [address] [place] [address], [address], 04/12/2021 13:55:52 04/17/2004/17/2022 PAP1C ASE [email or web address] ThinP rep Pap, Image d: NEGAT SÁNCHEZ [...] IUD, LPS neg. [z01. 419] Not Available [facility], Cytopathology Service [address] [place] [address], [address], 04/23/2022 08:11:00 04/17/2004/17/2022 fecal occul t blood , stool Occult Blood negati ve Not Available In-Office Order Internal Use Only DO Not Attach Compendium DO Not Attach Compendium, Do Not Delete/merge, [id number] 04/17/2022 10:29:09 Result Notes None recorded. Problems Name Problem SNOMED Code Status Onset Date Resolution Date Notes Provider Name and Address Organization Details Recorded Time Candidal vulvovaginiti s 86154084 Active Not Available [facility] 3 03:01:06 Irritable bowel syndrome 99559717 Active Not Available [facility] 3 03:01:06 Obesity 151754321 Active Not Available [facility] 3 03:01:06 Oligoovulator y dysfunctional uterine bleeding 414060762 Active Adriana Lara MD [address], [place], [address] , [place] - [facility], 5 11:43:08 Uncontrolled type 2 diabetes mellitus 869740465 Active Not Available [facility] 3 03:01:06 Primary female infertility 7164177 Active Not Available [facility] 3 03:01:06 Pruritus of vulva 56933364 Active Not Available [facility] 3 03:01:06 Pain in pelvis 59526298 Active Adriana Lara MD [address], [place], [address] , [place] - [facility], 4 15:07:42 Glycosuria 37793339 Active Adriana Lara MD [address], [place], [address] , [place] - [facility], 4 15:07:42 Problem Notes None recorded. Procedures Surgical History Date Name Laterality Status Provider Name and Address Organization Details Recorded Time 04/05/20 20 Most Recent Mammogram completed Yashira Alonso [place] - [facility], 04/17/2022 10:36:13 08/05/19 Cholecystectomy completed Taryn Beasley [place] - [facility], 11/10/2012 13:22:27 Imaging Results None recorded. Procedure Notes None recorded. Medical Equipment None Reported. Allergies Allergen ID Allergen Name Allergen Category Reaction Reaction Severity Criticality Documentation Date Start Date Code Code System Note Provider Name and Address Organization Details Recorded Time 94342 [facility] environma nt,medica tion rash Not available Not available 09/08/2019 75265 RxNorm Yashira Celeste [place] [facility] in [facility], 0 14:53:01 7561 Product containin g penicilli n (product) medicatio n rash Not available Not available 11/10/2012 15753 8001 SNOMED Taryn Beasley [place] - Ernesto in [facility], 3 13:11:08 Medications Name Sig [...] POR VIA ORAL DOS VECES AL LA NNEA active Not Available Not Available No t [...] Available Not Available Not Available Afluria Quad 4999-7290 (PF) 60 mcg (15 mcg x 4)/0.5 mL IM syringe active Not Available Not Available N ot Available FreeStyle Alexei 14 Day [place] FOR TESTING GLUCOSE LEVELS active Not Available [...] 9 175.26 cm 95 /min 54.2 kg/m2 469660. 68 g 122 mm[Hg] 65 mm[Hg] Taryn Beasley [place] - [place] in [facility], 9 09:12:36 Date Recorded Body weight Body mass index (BMI) Body height Heart rate Systolic blood pressure Diastolic blood pressure Provider Name and Address Organization Details Last Updated DateTime 0 176713. 12 g 55 kg/m2 173.99 cm 110 /min 132 mm[Hg] 77 mm[Hg] Yashira Orozco in [facility], 0 14:53:44 Date Recorded Body height Body temperature Body mass index (BMI) Body weight Heart rate Systolic blood pressure Diastolic blood pressure Provider Name and Address Organization Details Last Updated DateTime 1 173.99 cm 97.2 [degF] 58.6 kg/m2 191209. 34 g 104 /min 141 mm[Hg] 75 mm[Hg] Yashira Orozco in [facility], 1 13:34:29 Date Recorded Body weight Body mass index (BMI) Body height Body temperature Heart rate Systolic blood pressure Diastolic blood pressure Provider Name and Address Organization Details Last Updated DateTime 2 218293. 19 g 54.3 kg/m2 172.72 cm 98.1 [degF] 93 /min 142 mm[Hg] 79 mm[Hg] Yashiar Alonso [place] - [place] in [facility], 2 10:33:37 Date Recorded Body weight Heart rate Body mass index (BMI) Body height Systolic blood pressure Diastolic blood pressure Provider Name and Address Organization Details Last Updated DateTime 5 409447. 1769 g 103 /min 54.6 kg/m2 175.26 cm 119 mm[Hg] 71 mm[Hg] Yashira Alonso [place] - [place] in [facility], 5 10:17:20 Social History Question Answer Notes LastModified by Organizat ion Details LastModified Time Tobacco Smoking Status Never Smoker Not Available [facility] 06/07/2020 03:19:40 What Is Your Level Of Caffeine Consumption? Occasional [id number] Information not available 06/07/2020 In The 14 [...] Type Of Diet Are You Following? REGULAR [id number] Information not available 06/07/2020 Which Illicit Or Recreational Drugs Have You Used? None [id number] Information not available 06/07/2020 Do You Reside In Or Have You Traveled To An Area Where Ebola Virus Transmission Is Active? No [id number] Information not available 06/07/2020 Education Post Graduate Information not available 11/10/2012 What Is The Highest Grade Or Level Of School You Have Completed Or The Highest Degree You Have Received? [id number] Information not available 04/04/2021 Who Is Your Employer? [employer] Information not available 04/17/2022 How Many Days In The Past Year Have You Had A Heavy Drinking Consumption (4+ Female, 5+ Male)? 0 [employer] Information no t available 09/01/2018 Are There Any Guns Present In Your Home? No Information not available 04/04/2021 High Number Of Sexual Partners No Information not available 09/01/2018 To Which Gender Do You Self-identify? Female Information not available 09/01/2018 Marital Status Ribbon Informatio n not available 11/10/2012 What Was The Date Of Your Most Recent Tobacco Screening? 04/04/2021 Information not available 04/04/2021 What Is Your Relationship Status? Information not available 04/04/2021 Are You Sexually Active? Yes [id number] Information not available 06/07/2020 How Much Tobacco Do You Smoke? No [id number] Information not available 06/07/2020 General Stress Level [...] is your level of alcohol consumption? None [id number] Information not available 06/07/2020 Do you or have you ever used smokeless tobacco? Never used smokeless tobacco [id number] Information not available 06/07/2020 Are you currently employed? 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 Never used electronic cigarettes [id number] Information not available 06/07/2020 What is your exercise level? None [id number] Information not available 06/07/2020 Mental Status Question Answer Note LastModified by Organization D etails LastModified Time Do you feel stressed (tense, restless, nervous, or anxious, or unable to sleep at night)? [id number] Information not available 04/04/2021 Family History Relationship [...] Lara MD [address], [place], [address], [place] Orozco in [facility], 11/10/2012 13:43:51 Tdap 3 completed [place] Sexton in [facility], 12/11/2012 15:22:23 Influenza, split virus, quadrivalent, preservative 9 completed [place] Sexton in [facility], 09/01/2018 09:26:24 COVID-19, mRNA, LNP-S, PF, 100 mcg/0.5mL dose or 50 mcg/0.25mL dose 1 completed [place] Ramos in [facility], 04/04/2021 13:38:30 Influenza, split virus, quadrivalent, preservative 1 completed [place] Ramos in [facility], 04/17/2022 10:34:55 Past Encounters Encounter ID Performer Location Encounter Start Date Encounter Closed Date Diagnosis/Indication Diagnosis SNOMED-CT Code Diagnosis ICD10 Code Diagnosis Note [id number] MD ADRIANA Dickson MD [address] [place] [address] 11/10/2012 12:51:19 11/11/2012 08:37:47 [id number] MD ADRIANA Dickson MD [address] [place] [address] 12/11/2012 15:08:24 12/12/2012 16:10:03 [id number] MD ADRIANA Dickson MD [address],[place] [address] 08/21/2013 13:33:26 08/21/2013 15:51:36 Pain in pelvis 47179292 Acute lowe r urinary tract infection 168860459 Glycosuria 61869607 [id number] MD ADRIANA Dickson MD [address] [place] [address],[place] [address] 11/13/2013 09:28:08 11/13/2013 13:10:39 Specialized medical examination 73749005 [id number] MD ADRIANA Dickson MD [address] [place] [address],[place] [address] 12/07/2014 10:02:59 12/07/2014 13:34:46 Specialized medical examination 58159481 Venereal d isease screening 054415986 Oligoovula tory dysfunctional uterine bleeding 518817864 [id number] MD ADRIANA Dickson MD [address] [place] [address],[place] [address] 09/01/2018 09:04:26 09/01/2018 12:06:59 Specialized medical examination 61211857 Z01.419 Screening for malignant neoplasm of rectum 137827198 Z12.12 Screening mammography 24 119939 Z12.31 [id number] MD ADRIANA Dickson MD [address] [place] [address],[place] [address] 09/08/2019 14:46:50 09/08/2019 15:34:18 Specialized medical examination 30435987 Z01.419 Screening for malignant neoplasm of rectum 002353521 Z12.12 Screening mammography 24 575457 Z12.31 [id number] MD ADRIANA Dickson MD [address] [place] [address],[place] [address] 04/04/2021 13:29:45 04/04/2021 14:48:20 Specialized medical examination 67965726 Z01.419 Screening for malignant neoplasm of rectum 128315232 Z12.12 Screening mammography 24 880154 Z12.31 [id number] MD ADRIANA Dickson MD [address] [facility] [address] [place] [address] 04/17/2022 10:28:03 04/17/2022 11:34:15 Specialized medical examination 41800999 Z01.419 Screening for malignant neoplasm of rectum 713564774 Z12.12 Screening mammography 24 316883 Z12.31 Health Concerns Section Related Observation LastModified by Organization Detai ls LastModified Time None Recorded Concern Status LastModified by Organization Details LastModified Time None Recorded Advance Directives Directive None Recorded Payers Encounter Date Sequence Insurance Name Policy Number Policy Fountain Covered Member ID Fountain Member ID Guarantor Name 12/07/2014 1 [facility] [id number] Glorymar López [id number] Glorymar López Colon 09/01/2018 1 [facility] [id number] Glorymar López [id number] Glorymar López Colon 09/08/2019 1 [facility] [id number] Glorymar López [id number] Glorymar López Colon 04/04/2021 1 [facility] [id number] Glorymar López [id number] Glorymar López Colon 04/17/2022 1 [facility] [id number] Glorymar López [id number] Glorymar López Colon Notes Date Note Type Note Provider Name and Address Organization Details Recorded Time 09/01/2018 text/html She is here for annual exam. She has not been here since 2014. She was seeing [facility] infertility but they gave up on theat and put in a Mirena 2 years ago. No menses. Her diabetes has been Bad. In 07/2016 she started a process to do bariatric surgery at [facility]. She went through all the counseling [...] latest A1C was 10, in 06/18, the [facility] infertility referred her to endocrinology in 06/18, she was given instructions for rescue insulin doses when her sugars are high, she is doing that now, she had an A1C drawn on 11/25/14 but has not received the results yet. Adriana Lara MD [address] [facility],[address], [place], [address], [place] - [facility], 09/01/2018 10:08:27 09/08/2019 [...] a process to do bariatric surgery at [facility]. She went through all the counseling ,etc, but things fell through the cracks. She is considering going back again. she had weighted more than 400 pounds last year, she lost some weight this past year with diet and exercise but still weighs 366 pounds today. Adriana Lara MD [address] [facility],[address], [place], [address], [place] - [facility], 09/08/2019 15:23:49 04/04/2021 text/html She is here for annual exam, weight is 391 pounds, BMI is 58.6. She had a Mirena inserted 08/2016. No menses. Her mother earlier this year due to natural causes, in [place], she is still grieving. She and her are , she wanted to go to couples counseling but he would only go in Portuguese and they could not find a ambler Portuguese speaking counselor. Note from 2020: She is [...] a process to do bariatric surgery at [facility]. She went through all the counseling ,etc, but things fell through the cracks. She is considering going back again. she had weighted more than 400 pounds last year, she lost some weight this past year with diet and exercise but still weighs 366 pounds today. Adriana Lara MD [address], [place], [address], [place] [facility], 04/04/2021 14:00:40 04/17/2022 [...] this year due to natural causes, in [place], she is still grieving.She and her are , she wanted to go to couples counseling but he would only go in Portuguese and they could not find a ambler Portuguese speaking counselor. Adriana Lara MD [address], [place], [address], [place] [facility], 04/17/2022 11:00:04 OBGyn Episode No OBEpisode recorded.
--- OUTSIDE RECORDS SUMMARY | 2024-12-22 08:20 | XMS_ITS | Encounter Summary ---
Author Organization [facility] Address [address] [place] [address] Care Team Providers Care Ged Tutor Name Role Phone Braulio Carbajal Primary Care Provide r Reason for Visit * Reason Comments Obesity Encounter Details Date Type Department Care Team ([facility] st Contact Info) Description 12/18/2024 8:00 AM EDT Nutrition Bariatric Surgery - [address] [address] Prema Wallis, RD 175 [facility] [place] [address] [place] [phone] Class 3 severe obesity with serious comorbidity and body mass index (BMI) of 50.0 to 59.9 in adult, unspecified obesity type (CMS/HCC V24, CMS/HCC V28) (Primary Dx) Social History Tobacco Use Types [...] Oxygen Concentration - - Weight 157 kg (347 lb) 12/18/2024 8:02 AM EDT Height - - Body Mass Index 51.24 07/08/2024 1:01 PM EST documented in this encounter Progress Notes * Prema Wallis RD - 12/18/2024 8:00 AM EDT Patient-created Goals: -Include protein with every meal/snack -Give yourself rest on first day off to rejuvenate -Mind-fullness -mary-Jeremy La, depression, anxiety, stress, diet and exercise) -Joey Roman (affirmations) Prema Wallis RDN Bariatric Dietitian [facility] [email or web address] W [phone] F [phone] 175 [facility] [address] * Prema Wallis RD - 12/18/2024 8:00 AM EDT NUTRITION FOLLOW-UP NOTE: Patient Name: Julia Segura Date of : 1975 Date of Service: 12/18/2024 SURGEON: Gosia Stoner MD DESIRED SURGERY: Gastric Sleeve -also on [facility] CHIEF COMPLAINT: Obesity HISTORY: Julia Segura is a 49 y.o. female who presents for nutrition visit for Pre-op bariatric surgery 3rd Ht Readings from Last 1 Encounters: 07/08/24 1.753 m (69 ) Wt today: Wt Readings from Last 4 Encounters: 12/18/24 157 kg (347 lb) 09/14/24 157 kg (346 lb) 07/20/24 156 kg (345 lb) 07/08/24 158 kg (349 lb) weight taken in office shows 10 lb discrepancy from scale at home Body mass index is 51.24 kg/m??. Wt at initial: 349 Wt change since initial: -1 EBW = current - wt at BMI of 25: 345 - 170 = 175 Challenges: sick with diarrhea a few days Changes since last visit: EATING HABITS/DIET RECALL: Breakfast: (8 am) coffee with splenda, skim-milk (9:30) eggs, (2-3), sometimes wheat toast, Lunch: (2 pm): broccoli, cheese Snack: apples Dinner: (9 pm): chicken breast, green beans, protein pasta with meat Beverages: water (64 oz) zero sugar Gatorade Dines out: No Exercise: not really (trying to be a little more active Reasons pt cannot exercise: none Nutrition diagnosis: Class Class IV obesity related to Inadequate Physical Activity as evidenced byA BMI 51 Patient-created Goals: -Include protein with every meal/snack -Give yourself rest on first day off to rejuvenate -Mind-fullness -mary-Jeremy La, depression, anxiety, stress, diet and exercise) -Joey Roman (affirmations) Literature Provided: Goal sheets and RD contact information Interventions: Discussed the importance of including protein with each meal and snack Nutrition assessment: Pt is 49 y.o. Female with h/o has a past medical history of ADHD (attention deficit hyperactivity disorder), combined type (08/16/2014), Depression (04/2012), DM (diabetes mellitus) (CMS/HCC V24, CMS/HCC V28) (2006), Esophageal reflux, HTN (hypertension) (2011), and [...] Program requirements not met at this time -psych -PCP Monitoring/Evaluation: Monitor weight, Monitor progress toward nutrition goals, and Monitor compliance with program overall Patient nutritionally ready for surgery: yes RD to see patient for follow-up nutrition visit in 1 month Visit Time: Total time of the visit was spent face to face in medical nutritional therapy was [address] NUTRITION SERVICES documented in this encounter Plan of Treatment Upcoming Encounters Date Type Department Care Team (Late st Contact Info) Description 01/18/2025 11:00 AM EDT Nutrition Bariatric Surgery - [place] 175 [facility] [address] [place] [address] 175 [facility] [address] [place] [address] documented as of this encounter Visit Diagnoses Diagnosis Class 3 severe obesity with serious comorbidity and body mass index (BMI) of 50.0 to 59.9 in adult, unspecified obesity type (CMS/HCC V24, CMS/HCC V28)- Primary documented in this encounter Care Teams Ged Tutor Relationship Specialty Start Date End Date Braulio Carbajal [address] [place] [address] PCP - General Internal Medicine 03/20/22 documented as of this encounter
--- OUTSIDE RECORDS SUMMARY | 2024-12-22 08:20 | XMS_ITS | Clinical Summary ---
Author Organization [facility] Address [address] [place] [address] Care Team Providers Care [employer] Principal Name Role Phone Braulio Lopez MD Primary Care Provider [phone] Allergies Active Allergy Reactions Criticality Noted Date [...] age to complete this topic Care Teams [employer] Principal Relationship Specialty Start Date End Date Braulio Lopez MD [address] [place] [phone] PCP - General Internal Medicine 03/20/22
--- OUTSIDE RECORDS SUMMARY | 2024-12-22 08:20 | XMS_ITS | Encounter Summary ---
Author Organization [employer] Address [address] [facility] [address] [place] [address] Care Team Providers Care Track Patrol Name Role Phone Unavailable Primary Care Provider Unavailabl e Reason for Visit * Reason Comments Med Refill Encounter Details Date Type Department Care Team ([facility] st Contact Info) Description 11/02/2024 Refill [facility] [address] [place] [address] Braulio Carbajal MD [address] [place] [address] Social History Tobacco Use Types Packs/Day Years [...]
--- OUTSIDE RECORDS SUMMARY | 2024-12-22 08:20 | XMS_ITS | Encounter Summary ---
Author Organization [employer] Address [address] [place] [address] Care Team Providers Care Associate Quality Engineer Name Role Phone Braulio Carbajal MD Primary Care Prov ider Reason for Visit * Reason Comments Med Refill Encounter Details Date Type Department Care Team (Late st Contact Info) Description 10/29/2022 Refill [facility] [address] [place], [place] [phone] Braulio Carbajal MD [address] [place] [address] Social History Tobacco Use Types Packs/Day Years [...] on filedocumented in this encounter Care Teams Associate Quality Engineer Relationship Specialty Start Date End Date Braulio Carbajal MD [address] [place] [address] PCP - General Internal Medicine 12/14/19 04/28/24 documented as of this encounter
--- OUTSIDE RECORDS SUMMARY | 2024-12-22 08:20 | XMS_ITS | Clinical Summary ---
Author Organization 175 [facility] Address [address] [place] [address] Phone Care Team Providers Care Employee Health Nurse Name Role Phone Braulio Carbajal Primary Care [...] (BMI) of 50.0 to 59.9 in adult ([facility] V24, [facility] V28) 12/18/2024 Class 3 severe obesity with serious comorbidity and body mass index (BMI) of 50.0 to 59.9 in adult ([facility] V24, [facility] V28) 07/20/2024 HTN (hypertension) 05/22/2024 IBS (irritable bowel syndrome) 05/22/2024 ADHD (attention deficit hype ractivity disorder), combined type 08/16/2014 Sleep apnea 06/28/2014 Morbid obesity ([facility] V24, [facility] V28) 2013 Overview (05/22/2024): BMI 52.25 on 06/05/13. Condition not found 06/05/2013 Overview (05/22/2024): Diabetes mellitus type II, uncontrolled Depression 04/05/2012 Encounters Date Type Department Care Team Description 12/18/2024 8:00 AM EDT Nutrition Bariatric Surgery - [address] [place] [address] Class 3 severe obesity with serious comorbidity and body mass index (BMI) of 50.0 to 59.9 in adult, unspecified obesity type ([facility] V24, [facility] V28) (Primary Dx) from Last 3 Months Immunizations Name Administration Dates Next Due Tdap Tetanus diptheria acell ular pertussis (Boostrix; Adacel) 7yo and older 12/11/2012 Surgical History Surgery Date Site/Laterality Comments CHOLECYSTECTOMY 1999 PROCEDURE: HISTORICAL CHOLECYSTECTOMY Medical History Medical History Date Comments HTN (hypertension) 2011 DX:HTN (hyper tension) DM (diabetes mellitus) ([facility] V24, [facility] V28) 2006 DX:DM (diabetes mellitus) [...] (347 lb) 12/18/2024 8:02 AM EDT Height 175.3 cm (5' 9 ) 07/08/2024 1:01 PM EST Body Mass Index 51.24 07/08/2024 1:01 PM EST Plan of Treatment Upcoming Encounters Date Type Department Care Team (Late st Contact Info) Description 01/18/2025 11:00 AM EDT Nutrition Bariatric Surgery - [address] [address] Prema Wallis, RD [address] [address] Health Maintenance Due Date Last [...] Routine 07/20/2024 8:33 AM EST Morbid obesity (CMS/HCC V24, CMS/[facility] V28) HEMOGLOBIN A1C Routine 07/20/2024 8:33 AM EST Morbid obesity (CMS/HCC V24, CMS/[facility] V28) LIPID PANEL WITH REFLEX TO DIRECT LDL Routine 07/20/2024 8:33 AM EST Morbid obesity (CMS/HCC V24, CMS/[facility] V28) URINE ALBUMIN CREATININE RATIO [...] 11:24 AM EST [facility] Non HDL Chol. (LDL+VLDL) 126 <145 mg/dL LAB CHEMISTRY METHOD 07/20/2024 11:24 AM EST [facility] Chol/HDL Ratio 3.4 0.0 - 4.4 LAB CHEMISTRY METHOD 07/20/2024 11:24 AM EST [facility] Blood Venous blood specimen / Unknown Venipuncture / Unknown 07/20/2024 8:33 AM EST 07/20/2024 8:33 AM EST us Gosia Stoner MD LAB BLOOD ORDERABLES Fi nal Result [facility] [address] [place] [address], * (ABNORMAL) Hemoglobin A1c (07/20/2024 8:33 AM EST) Hemoglobin A1C 7.9(H) <6.5 % LAB CHEMISTRY METHOD 07/20/2024 2:41 PM [facility] Mean Bld Glu Estim. 180 mg/dL LAB CHEMISTRY METHOD 07/20/2024 2:41 PM [facility] Blood Venous blood specimen / Unknown Venipuncture / Unknown 07/20/2024 8:33 AM EST 07/20/2024 8:33 AM EST us Gosia Stoner MD LAB BLOOD ORDERABLES Fi nal Result [facility] [address] [place] [address], * (ABNORMAL) Comprehensive metabolic panel (07/20/2024 8:33 AM EST) Sodium 136 133 - 145 mmol/L LAB CHEMISTRY METHOD 07/20/2024 11:24 AM [facility] Potassium 4.5 3.5 - 5.5 mmol/L LAB CHEMISTRY METHOD 07/20/2024 11:24 AM [facility] Chloride 100 96 - 110 mmol/L LAB CHEMISTRY METHOD 07/20/2024 11:24 AM [facility] CO2 25 21 - 32 mmol/L LAB CHEMISTRY METHOD 07/20/2024 11:24 AM [facility] Anion Gap 11 3 - 11 LAB CHEMISTRY METHOD 07/20/2024 11:24 AM [facility] Glucose 148(H) 70 - 100 mg/dL LAB CHEMISTRY METHOD 07/20/2024 11:24 AM [facility] BUN 15 5 - 25 mg/dL LAB CHEMISTRY METHOD 07/20/2024 11:24 AM [facility] Creatinine 0.71 0.50 - 1.10 mg/dL LAB CHEMISTRY METHOD 07/20/2024 11:24 AM [facility] eGFR 105 >=60 mL/min/1. 73m2 LAB CHEMISTRY METHOD 07/20/2024 11:24 AM [facility] Comment:Calculation based on the??Chronic Kidney Disease Epidemiology Collaboration (CKD-EPI) equation refit??without adjustment for race. BUN/Creatinine Ratio 21.1 LAB CHEMISTRY METHOD 07/20/2024 11:24 AM [facility] Calcium 9.7 8.5 - 10.5 mg/dL LAB CHEMISTRY METHOD 07/20/2024 11:24 AM [facility] AST (SGOT) 16 10 - 42 unit/L LAB CHEMISTRY METHOD 07/20/2024 11:24 AM [facility] ALT (SGPT) 29 10 - 60 unit/L LAB CHEMISTRY METHOD 07/20/2024 11:24 AM [facility] Alkaline Phosphatase 124(H) 42 - 121 unit/L LAB CHEMISTRY METHOD 07/20/2024 11:24 AM [facility] Total Protein 7.7 6.0 - 8.0 g/dL LAB CHEMISTRY METHOD 07/20/2024 11:24 AM [facility] Albumin 3.6 3.2 - 5.0 g/dL LAB CHEMISTRY METHOD 07/20/2024 11:24 AM [facility] Total Bilirubin 0.4 0.0 - 1.4 mg/dL LAB CHEMISTRY METHOD 07/20/2024 11:24 AM [facility] Blood Venous blood specimen / Unknown Venipuncture / Unknown 07/20/2024 8:33 AM EST 07/20/2024 8:33 AM EST us Gosia Stoner MD LAB BLOOD ORDERABLES Fi nal Result [facility] [address] [place] [address], [place] [phone] * Urine Albumin Creatinine Ratio (02/26/2014) Urine Albumin Creatinine Ratio Abstracted us Historical Provider HEALTH MAINTENANCE Final Result from Last 3 Months or Most Recently Relevant to Health Maintenance Insurance [employer] Care Teams Employee Health Nurse Relationship Specialty Start Date End Date Braulio Carbajal [address] [place], [place] PCP - General Internal Medicine 03/20/22
--- OUTSIDE RECORDS SUMMARY | 2024-12-22 08:20 | XMS_ITS | Clinical Summary ---
Author Organization [employer] Address [address] [place] [address] 7t [place] [address] Care Team Providers Care Pantry Goods Maker Name Role Phone Unavailable Primary Care Provider [...] 2 diabetes mellitus without complication, unspecified whether chcf insulin use ([facility]) Inject 1.5 mg under the [...] DEPARTMENT Provider, Generic External Data 11/02/2024 Refill [facility] [address] [place] [address] Braulio Carbajal MD 10/19/2024 Refill [facility] [address] [place] [address] Braulio Carbajal MD 10/13/2024 Refill [facility] [address] [place] [address] Braulio Carbajal MD Primary hypertension from Last [...] 1975 FIT 1975 FOBT 1975 Sigmoidoscopy 1975 Disability Screening 1976 Alcohol/Substance Use Screening 1988 Family Planning [...] 2 diabetes mellitus without complication, 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 12/15/2024 8:38 AM EDT 12/15/2024 8:42 AM EDT us Generic External Data Provider LAB BLOOD ORDERAB LES Final Result Performing Organization Address City/State/[facility] Co de Phone Number [facility] [address] [place] [phone] * BI Mammogram Diagnostic Tomosynthesis Bilateral (05/25/2024 1:00 PM EDT) Anatomical Region Laterality Modality Breast Bilateral Mammography 05/25/2024 1:00 PM EDT Narrative 05/25/2024 4:12 PM EDT ? [facility] ? [address] ?[place] [address] ? Mammography Report ? Signed ? Patient: López,Glorymar ?MR#: [id number] ?? [id number] ? : 1975 ?Acct:[id number] ? Age/Sex: 48 / F ?ADM Date: 10/21/24 ? Loc: HO.MAMMO ? Attending Dr: Ryan Prescott MD ? Ordering Physician: Ryan Prescott MD ?Results: 2Ben ?? ign Findings ? Date of Service: 05/25/24 ?Follow Up: 1 Year From Orig ?? inal Mammogram ? Procedure(s): MM tomosynthesis diagnostic BI ?? Accession Number(s): [id number] ? cc: Braulio Carbajal MD; Ryan Prescott [...] DD/ 1300 ? TD/TT: 05/25/24 1350 ? Automatic Lathe Tender: ? Procedure Note Tari, Dave - 05/25/2024 [facility] [address] [place] [address] Mammography Report Signed Patient: Julia LópezMR#: [id number] : 1975Acct:[id number] Age/Sex: 48 / FADM Date: 05/25/24 Loc: HO.MAMMO Attending Dr: Ryan Prescott MD Ordering Physician: Ryan Prescott MDResults: 2Ben ign Findings Date of Service: 05/25/24Follow Up: 1 Year From Orig inal Mammogram Procedure(s): MM tomosynthesis diagnostic BI Accession Number(s): [id number] cc: Braulio Carbajal MD; Ryan Prescott MD [...] 05/25/24 1609 DD/ 1300 TD/TT: 05/25/24 1350 Automatic Lathe Tender: [facility] External Provider IMG BI PROCEDURES Edited Result - Final * Lipid Panel, Standard (01/01/2023 10:20 AM EDT) Triglycerides 73 mg/dL [facility] Comment:Desirable Triglyceri de: less than 150 mg/dLBorderline High Triglyceride 150-199 mg/dLHigh Triglyceride: 200-499 mg/dLVery High Triglyceride: greater than or equal to 5OO mg/dL Cholesterol 101 mg/dL [facility] Comment:Desirable Cholestero l: less than 200 mg/dLBorderline High Cholesterol: 200-239 mg/dLHigh Cholesterol: greater than 239 mg/dL LDL Cholesterol Calculated 53 mg/dl [facility] Comment:Desirable LDL: less than 100 mg/dLNear Optimal/Above Optimal LDL: 110- 129 mg/dLBorderline High LDL: 130-159 mg/dLHigh LDL: 160-189 mg/dLVery High LDL: greater than or equal to 190 mg/dL HDL Cholesterol 34 mg/dL [facility] Comment:Desirable HDL: great er than 40 mg/dL Note: This HDL assay may give artificially low results in patients with liver disease. 01/01/2023 10:2 0 AM EDT 01/01/2023 10:20 AM EDT [facility] External Provider LAB BLO OD ORDERABLES Final Result [facility] [address] [place] [address] [phone] * HEPATITIS C AB W/REFL TO HCV RNA, QN, PCR (01/24/2022 8:19 AM EDT) HEPATITIS C ANTIBODY NON-REACT SÁNCHEZ NON-REACT SÁNCHEZ [facility] INDEX 0.02 <1.00 [facility] Comment: ?? HCV antibody was non-reactive. There is no laboratory ?? evidence of HCV infection. ?? In most cases, no further action is required. However, if recent HCV exposure is suspected, a test for HCV RNA (test code 26577) is suggested. ?? For additional information please refer to http://[employer].Pymetrics/faq/VMD14e1 (This link is being provided for informational/ educational purposes only.) ?? 01/24/2022 8:19 AM EDT Braulio Campbell MD HISTORICAL/NON ORD ERABLE LABS Final Result Performing Organization Address City/[facility]/ZIP Co de Phone Number [facility] [address] * HIV 1/2 ANTIGEN/ANTIBODY,FOURTH GENERATION W/RFL [...] ? For additional information please refer to http://education.[employer]/faq/QLI450 (This link is being provided for informational/ educational purposes only.) ? The performance of this assay has not been clinically validated in patients less than 2 years old. ?? 01/24/2022 8:19 AM EDT Braulio Campbell MD LAB BLOOD ORDERABL ES Final Result [facility] [address] from Last 3 Months or Most Recently Relevant to Health Maintenance Insurance [employer] [place] [phone]
--- OUTSIDE RECORDS SUMMARY | 2024-12-22 08:21 | XMS_ITS | Encounter Summary ---
Author Organization [employer] Address [address] [facility] 7 [place] [address] Care Team Providers Care Lithographers Printer Name Role Phone Braulio Carbajal MD Primary Care Prov ider Reason for Visit * Reason Onset Date Comments Med Refill 02/28/2023 Encounter Details Date Type Department Care Team (Late st Contact Info) Description 02/28/2023 Refill [facility] [address] [place] [address] Braulio Carbajal MD [address] [place] [phone] Mixed hyperlipidemia; Primary hypertension; Type 2 diabetes [...] (CMS/HCC) documented in this encounter Care Teams Lithographers Printer Relationship Specialty Start Date End Date Braulio Carbajal MD [address] [place] [address] PCP - General Internal Medicine 12/14/19 04/28/24 documented as of this encounter
--- OUTSIDE RECORDS SUMMARY | 2024-12-22 08:21 | XMS_ITS | Continuity of Care Document ---
Author Organization [facility] Address [address] [facility] [address] [place] [address] Phone [phone] Social History Type Date Description Comments Sex Unknown Medical Devices Description No Information Available Encounters Description No Information Available Assessments Description No Information Available Plan of Treatment No Information Available Functional Status Description No Information Available Mental Status Description No Information Available Referrals Description No Information Available
--- OUTSIDE RECORDS SUMMARY | 2024-12-22 08:21 | XMS_ITS | Encounter Summary ---
Author Organization [employer] Address [address] [place] [address] Care Team Providers Care Rabies Inspector Name Role Phone Braulio Carbajal MD Primary Care Prov ider Reason for Visit * Reason Comments Med Refill Encounter Details Date Type Department Care Team (Late st Contact Info) Description 10/29/2022 Refill [facility] [address] [place], [place] [phone] Braulio Carbajal MD [address] [place] [address] Social History Tobacco Use Types Packs/Day Years [...] on filedocumented in this encounter Care Teams Rabies Inspector Relationship Specialty Start Date End Date Braulio Carbajal MD [address] [place] [address] PCP - General Internal Medicine 12/14/19 04/28/24 documented as of this encounter
--- OUTSIDE RECORDS SUMMARY | 2024-12-22 08:21 | XMS_ITS | Encounter Summary ---
Author Organization [employer] Address [address] [facility] [address] [place] [address] Care Team Providers Care Manager Editorial Name Role Phone Braulio Carbajal MD Primary Care Prov ider Encounter Details Date Type Department Care Team (Late st Contact Info) Description 08/17/2022 Orders Only [facility] [address] [place] [address] Braulio Carbajal MD [address] [place] [address] Type 2 diabetes mellitus without complication, unspecified whether mcc insulin use ([facility]) (Primary Dx) Social History Tobacco Use [...] 2 diabetes mellitus without complication, unspecified whether supervisor intermediates insulin use (CMS/HCC) HEMATOXYLIN AND EOSIN STAIN Routine 01/09/2023 8:38 AM EDT Type 2 diabetes mellitus without complication, unspecified whether mcc insulin use (CMS/HCC) COVID-19 ID NOW (DUPREE) Routine 01/08/2023 2:18 PM EDT Type 2 diabetes mellitus without complication, unspecified whether supervisor intermediates insulin use (CMS/HCC) TYPE AND SCREEN Routine 01/01/2023 10:22 AM EDT Type 2 diabetes mellitus without complication, unspecified whether mcc insulin use (CMS/HCC) VITAMIN D,25-OH,TOTAL,IA Routine 01/01/2023 10:20 AM EDT Type 2 diabetes mellitus without complication, unspecified whether supervisor intermediates insulin use (CMS/HCC) TSH W/REFLEX TO FT4 Routine 01/01/2023 1 0:20 AM EDT Type 2 diabetes mellitus without complication, unspecified whether supervisor intermediates insulin use (CMS/HCC) CBC WITH AUTO DIFFERENTIAL Routine 01/01/2023 10:20 AM EDT Type 2 diabetes mellitus without complication, unspecified whether mcc insulin use (CMS/HCC) ZINC Routine 01/01/2023 10:20 AM EDT Type 2 diabetes mellitus without complication, unspecified whether mcc insulin use (CMS/HCC) VITAMIN A Routine 01/01/2023 10:20 AM EDT Type 2 diabetes mellitus without complication, unspecified whether mcc insulin use (CMS/HCC) APTT Routine 01/01/2023 10:20 AM EDT Type 2 diabetes mellitus without complication, unspecified whether supervisor intermediates insulin use (CMS/HCC) PROTHROMBIN TIME-INR Routine 01/01/2023 10:20 AM EDT Type 2 diabetes mellitus without complication, unspecified whether supervisor intermediates insulin use (CMS/HCC) C-REACTIVE PROTEIN Routine 01/01/2023 10 :20 AM EDT Type 2 diabetes mellitus without complication, unspecified whether mcc insulin use (CMS/HCC) VITAMIN B1 Routine 01/01/2023 10:20 AM EDT Type 2 diabetes mellitus without complication, unspecified whether mcc insulin use (CMS/HCC) PTH, INTACT WITHOUT CALCIUM Routine 01/01/2023 10:20 AM EDT Type 2 diabetes mellitus without complication, unspecified whether mcc insulin use (CMS/HCC) HEMOGLOBIN A1C Routine 01/01/2023 10:20 AM EDT Type 2 diabetes mellitus without complication, unspecified whether supervisor intermediates insulin use (CMS/HCC) FERRITIN Routine 01/01/2023 10:20 AM EDT Type 2 diabetes mellitus without complication, unspecified whether mcc insulin use (CMS/HCC) VITAMIN B12 Routine 01/01/2023 10:20 AM EDT Type 2 diabetes mellitus without complication, unspecified whether mcc insulin use (CMS/HCC) LIPID PANEL, STANDARD Routine 01/01/2023 10:20 AM EDT Type 2 diabetes mellitus without complication, unspecified whether supervisor intermediates insulin use (CMS/HCC) COMPREHENSIVE METABOLIC PANEL Routine 01/01/2023 10:20 AM EDT Type 2 diabetes mellitus without complication, unspecified whether mcc insulin use (CMS/HCC) GLUCOSE, WHOLE BLOOD Routine 11/13/2022 1:31 PM EDT Type 2 diabetes mellitus without complication, unspecified whether supervisor intermediates insulin use (CMS/HCC) HEMOGLOBIN A1C Routine 11/13/2022 1:14 PM EDT Type 2 diabetes mellitus without complication, unspecified whether mcc insulin use (CMS/HCC) documented in this encounter Results * CA 19-9 (01/09/2023 10:38 AM EDT) CA 19-9 14 <34 U/mL [facility] Comment:The CA19-9 result ma y be increased on average 14% - 20%,relative to results previously obtained with this methoddue to a recent calibrator adjustment made in Octobery the reagent director of quality. In the low range for thisassay (< [...] or absence of disease.THIS TEST WAS PERFORMED AT:[employer] [place] [id number] LONDONO MD 01/09/2023 10:3 8 AM EDT 01/09/2023 10:42 AM EDT [facility] External Provider LAB BLO OD ORDERABLES Final Result [facility] [address] [place] [phone] * Hematoxylin and Eosin Stain (01/09/2023 8:38 AM EDT) 01/09/2023 8:38 AM EDT 01/09/2023 8:53 AM EDT Narrative [facility] - 01/14/2023 1:28 PM EDT ----- ------- Name: Julia López ? Age/Sex: 47/F ? : 1975 Unit#: [id number] ?? Attend Dr: Darci Sanders MD ?Re01/09/23 ?Status: DEP SDC ? Location: HO.SSS ?Disch: ? ----- ------- SPEC : [id number] ? RECD: 01/09/23 ? STATUS: ??SOUT ? REQ NUM: [id number] ? PUSHPA: 01/09/23 ? SUBM DR: Darci [...] ? Age/Sex: 47/F ? : 1975 Unit#: [id number] ?? Attend Dr: Darci Sanders MD ?Re01/09/23 ?Status: DEP SDC ? Location: HO.SSS ?Disch: ? ----- ------- SPEC : [id number] ? RECD: 01/09/23 ? STATUS: ??SOUT ? REQ NUM: [id number] ? PUSHPA: 01/09/23 ? SUBM DR: Darci [...] ?? [address] ?? [place] [address] ?? [phone] ?? Darci Sanders MD ?? [address] [place] [address], [address] ?? [place] [address] ?? [phone] ----- ------- Signed (signature on file) Shaun Lebron MD 01/14/23 1328 ? ----- ------- ? END OF REPORT ? us [facility] External Provider LAB BLO OD ORDERABLES Final Result [facility] [address] [place] [address] [phone] * COVID-19 ID NOW (Strav[employer]) (01/08/2023 2:18 PM EDT) IDNOW SERIAL# [id number] [facility] COVID-19 TEST Negative Negative [facility] COVID-19 NOTE See Note [facility] Comment: Results are for the identification of SARS-CoV2 RNA. TheSARS-CoV2 RNA is generally detectable in respiratory samplesduring the acute phase of infection. Positive results areindicative of the presence of SARS-CoV-2 RNA; clinicalcorrelation with patient history and other diagnosticinformation is necessary to determine patient infectionstatus. Positive results do not rule out bacterial infectionor co- infection with other viruses.Testing facilities within the [facility] and itsterritories are required to report all [...] use by authorized laboratories.Testing performed on the [employer] ID NOW utilizing NAAT. 01/08/2023 2:18 PM EDT 01/08/2023 2:32 PM EDT [facility] Exter nal Provider LAB MOLECULAR DIAGNOSTICS ORDERABLES Final Result Performing Organization Address City/[facility]/ZIP Co de Phone Number [facility] [address] [place] [phone] * Type and screen (01/01/2023 10:22 AM EDT) Blood Type OP [facility] Antibody Screen NEGATIVE [facility] 01/01/2023 10:2 2 AM EDT 01/01/2023 11:04 AM EDT Narrative [facility] - 01/01/2023 11:55 AM EDT Spec expiration changed by JAMESON on 01/01/23Reason: For SURGERYNURSING:Call Blood Bank (ext. [phone]) to band patient on admission.Type and Screen in effect until 2300 on 01/09/23Witnessed by EDELMIRA [facility] External Provider LAB BLO OD BANK TEST ORDERABLES Final Result Performing Organization Address [facility] Co de Phone Number [facility] [address] [place] [phone] * (ABNORMAL) Vitamin A (01/01/2023 10:20 AM EDT) Vitamin A (Retinol) 32(A) 38 - 98 mcg/dL [facility] Comment:Vitamin supplementat ion within 24 hours prior toblood draw may affect the accuracy of the results.This test was developed and its analytical performancecharacteristics have been determined by [employer] [place], [place]. It hasnot been cleared or approved by the U.S. Food and DrugAdministration. This assay has been validated pursuantto the CLIA regulations and is used for clinicalpurposes.THIS TEST WAS PERFORMED AT:[employer] [id number] [place] [address]RMYRHXYNICOLA BARRY MD,PHD 01/01/2023 10:2 0 AM EDT 01/01/2023 10:20 AM EDT [facility] External Provider LAB BLO OD ORDERABLES Final Result Performing Organization Address [facility] Co de Phone Number [facility] [address] [place] [phone] * (ABNORMAL) Vitamin B1 (01/01/2023 10:20 AM EDT) Pathologist [facility] Vitamin B1 <6(A) 8 - 30 nmol/L [facility] Comment:Vitamin supplementat ion within 24 hours prior toblood draw may affect the accuracy of the results.This test was developed and its analytical performancecharacteristics have been determined by [employer] [place], [place]. It hasnot been cleared or approved by the U.S. Food and DrugAdministration. This assay has been validated pursuantto the CLIA regulations and is used for clinicalpurposes.THIS TEST WAS PERFORMED AT:[employer] [place] [address]PLKGAJUNICOLA BARRY MD,PHD 01/01/2023 10:2 0 AM EDT 01/01/2023 10:20 AM EDT [facility] External Provider LAB BLO OD ORDERABLES Final Result Performing Organization Address [facility] de Phone Number [facility] [address] [place] [phone] * Zinc (01/01/2023 10:20 AM EDT) Zinc 84 60 - 130 mcg/dL [facility] Comment:This test was develo ped and its analytical performancecharacteristics have been determined by [employer] [place], [place]. It hasnot been cleared or approved by the U.S. Food and DrugAdministration. This assay has been validated pursuantto the CLIA regulations and is used for clinicalpurposes.THIS TEST WAS PERFORMED AT:[employer] [place] [address]MHBLSITNICOLA BARRY MD,PHD 01/01/2023 10:2 0 AM EDT 01/01/2023 10:20 AM EDT [facility] External Provider LAB BLO OD ORDERABLES Final Result Performing Organization Address [facility]/ZIP Co de Phone Number [facility] [address] [place] [phone] * PTH, Intact Without Calcium (01/01/2023 10:20 AM EDT) PTHI 32 16 - 77 pg/mL [facility] Comment:Interpretive Guide I ntact PTH Calcium -------Normal Parathyroid Normal NormalHypoparathyroidism Low or Low Normal LowHyperparathyroidism Primary Normal or High High Secondary High Normal or Low Tertiary High HighNon-Parathyroid Hypercalcemia Low or Low Normal High Calcium (PTHI) 9.9 8.6 - 10.2 mg/dL [facility] Comment:THIS TEST WAS PERFOR MED AT:[employer] [address] [phone] LONDONO MD 01/01/2023 10:2 0 AM EDT 01/01/2023 10:20 AM EDT [facility] External Provider LAB BLO OD ORDERABLES Final Result Performing Organization Address [facility] Co de Phone Number [facility] [address] [place] [phone] * Lipid Panel, Standard (01/01/2023 10:20 AM EDT) Triglycerides 73 mg/dL [facility] Comment:Desirable Triglyceri de: less than 150 mg/dLBorderline High Triglyceride 150-199 mg/dLHigh Triglyceride: 200-499 mg/dLVery High Triglyceride: greater than or equal to 5OO mg/dL Cholesterol 101 mg/dL [facility] Comment:Desirable Cholestero l: less than 200 mg/dLBorderline High Cholesterol: 200-239 mg/dLHigh Cholesterol: greater than 239 mg/dL LDL Cholesterol Calculated 53 mg/dl [facility] Comment:Desirable LDL: less than 100 mg/dLNear Optimal/Above Optimal LDL: 110- 129 mg/dLBorderline High LDL: 130-159 mg/dLHigh LDL: 160-189 mg/dLVery High LDL: greater than or equal to 190 mg/dL HDL Cholesterol 34 mg/dL [facility] Comment:Desirable HDL: great er than 40 mg/dL Note: This HDL assay may give artificially low results in patients with liver disease. 01/01/2023 10:2 0 AM EDT 01/01/2023 10:20 AM EDT [facility] External Provider LAB BLO OD ORDERABLES Final Result Performing Organization Address [facility]/ZIP Co de Phone Number [facility] [address] [place] [phone] * (ABNORMAL) C-reactive Protein (01/01/2023 10:20 AM EDT) C Reactive Protein 2.54(H) < or = 0.50 mg/dL [facility] 01/01/2023 10:2 0 AM EDT 01/01/2023 10:20 AM EDT [facility] External Provider LAB BLO OD ORDERABLES Final Result [facility] [address] [place] [phone] * (ABNORMAL) Comprehensive Metabolic Panel (01/01/2023 10:20 AM EDT) Sodium 136 135 - 145 mmol/L [facility] Potassium 4.7 3.3 - 5.1 mmol/L [facility] Chloride 99 96 - 108 mmol/L [facility] Carbon Dioxide 28 22 - 29 mmol/L [facility] Anion Gap 14 12 - 20 [facility] Urea Nitrogen (BUN) 13 9 - 16 mg/dL [facility] Creatinine, Serum 0.80 0.5 - 1.4 mg/dL [facility] Creatinine Clr Calc Pharmacy 134.3 [facility] Comment:Provided height and weight: 175.26 cm,142.882 kg.eGFR (calculated from the MDRD study equation) and eCrCl(calculated from the Cockcroft-Gault equation) are based ondifferent parameters and may not yield comparable results.If eCrCl result is absurd, please check patient'sheight/weight. Estimated Glomerular Filt Rate >60 [facility] Comment:NOTE: For -Am erican individuals, multiply the result by 1.210.Chronic Kidney Disease: Estimated GFR < 60 mL/min/1.17k9Xrokqk Kidney Disease: Estimated GFR < 15 mL/min/1.73m2 Glucose 141(H) 60 - 115 mg/dL [facility] Calcium 10.0 8.4 - 10.2 mg/dL [facility] Bilirubin, Total 0.9 0.0 - 1.0 mg/dL [facility] Aspartate Amino Transferase 18 5 - 31 U/L [facility] Alanine Aminotransferase 14 0 - 31 U/L [facility] Total Protein 7.9 6.5 - 8.0 g/dL [facility] Albumin Level 4.0 3.5 - 5.0 g/dL [facility] Alkaline Phosphatase 85 39 - 117 U/L [facility] 01/01/2023 10:2 0 AM EDT 01/01/2023 10:20 AM EDT [facility] External Provider LAB BLO OD ORDERABLES Final Result Performing Organization Address [facility] Co de Phone Number [facility] [address] [place] [phone] * TSH W/Reflex to FT4 (01/01/2023 10:20 AM EDT) TSH reflex Free T4 1.39 0.32 - 4.0 uIU/mL [facility] 01/01/2023 10:2 0 AM EDT 01/01/2023 10:20 AM EDT [facility] External Provider LAB BLO OD ORDERABLES Final Result Performing Organization Address [facility] Phone Number [facility] [address] [place] [phone] * Vitamin D, 25-Hydroxy, Total, Immunoassay (01/01/2023 10:20 AM EDT) Vitamin D 25-OH Total 23.8 >30 ng/mL [facility] Comment:Health Based Referen ce Values*< 20 ng/mL Safsimpwi98-10 ng/mL Insufficient> 30 ng/mL Sufficient*Nay HASTIGNS. N Engl J Med. 2007;357:266-280Care must be [...] 0 AM EDT 01/01/2023 10:20 AM EDT [facility] External Provider LAB BLO OD ORDERABLES Final Result Performing Organization Address City/[facility]/ZIP Co de Phone Number [facility] [address] [place] [phone] * Vitamin B12 (01/01/2023 10:20 AM EDT) Vitamin B12 505 200 - 900 pg/mL [facility] Comment:NORMAL 200-900 PG/ML INDETERMINATE 160-199 PG/ML DEFICIENT < 160 PG/ML 01/01/2023 10:2 0 AM EDT 01/01/2023 10:20 AM EDT [facility] External Provider LAB BLO OD ORDERABLES Final Result Performing Organization Address [facility] Co de Phone Number [facility] [address] [place] [phone] * Ferritin (01/01/2023 10:20 AM EDT) Pathologist [facility] Ferritin 192 10 - 250 ng/mL [facility] 01/01/2023 10:2 0 AM EDT 01/01/2023 10:20 AM EDT [facility] External Provider LAB BLO OD ORDERABLES Final Result Performing Organization Address [facility] Co de Phone Number [facility] [address] [place] [phone] * Hemoglobin A1c (01/01/2023 10:20 AM EDT) Hemoglobin A1c 6.8 % [facility] Comment:Hemoglobin A1C Refer ence Range Adults: 4.8 - 6.0 % Non diabetic: < 6.0 % Goal: < 7.0 %Additional Action Suggested: > 8.0 %Note: Hemoglobin A1c results are invalid for patients with abnormal amounts of HbF. Blood transfusions may impact the HbA1c concentration in the patient sample. Estimated Average Glucose 148 mg/dL [facility] Comment:eAG = Estimated ave rage glucose which is %A1C expressed asaverage glucose, using the formula of the G3S-PiuvwxxDrovdmn Glucose study (ADAG), Diabetes Care, Vol.31,#8,2007 01/01/2023 10:2 0 AM EDT 01/01/2023 10:20 AM EDT [facility] External Provider LAB BLO OD ORDERABLES Final Result Performing Organization Address [facility] Co de Phone Number [facility] [address] [place] [phone] * APTT (01/01/2023 10:20 AM EDT) Partial Thromboplastin Time 35.0 26.0 - 36.4 SEC [facility] 01/01/2023 10:2 0 AM EDT 01/01/2023 10:20 AM EDT [facility] External Provider LAB BLO OD ORDERABLES Final Result Performing Organization Address [facility] de Phone Number [facility] [address] [place] [phone] * Prothrombin Time-INR (01/01/2023 10:20 AM EDT) Prothrombin Time 12.9 10.0 - 13.1 SEC [facility] INTERNATIONAL NORM RATIO 1.1 0.9 - 1.1 [facility] Comment:INTERNATIONAL NORMAL IZED RATIO (INR) [...] AM EDT 01/01/2023 10:20 AM EDT us [facility] External Provider LAB BLO OD ORDERABLES Final Result [facility] [address] [place], [place] [phone] * (ABNORMAL) CBC auto differential (01/01/2023 10:20 AM EDT) White Blood Count 11.3(H) 4.8 - 10.8 X10*3/uL [facility] Red Blood Count 5.09 4.20 - 5.50 X10*6/uL [facility] Hemoglobin 13.8 12.0 - 16.0 g/dl [facility] Hematocrit 44.1 37.0 - 47.0 % [facility] Mean Corpuscular Volume 86.6 80.0 - 98.0 fL [facility] Mean Corpuscular Hemoglobin 27.1 27.0 - 33.0 pg [facility] Mean Corpuscular HGB Conc 31.3 31.0 - 35.0 g/dl [facility] Red Cell Distribution Width 14.3 11.0 - 16.0 % [facility] Platelet Count 376 160 - 400 X10*3/uL [facility] Mean Platelet Volume 9.2(L) 9.4 - 12.3 fL [facility] Neutrophils Percent Auto 66.0 45 - 73 % [facility] Imm Gran Pct Auto 0.8(H) 0.0 - 0.4 % [facility] Lymphocytes Percent Auto 25.1 20 - 40 % [facility] Monocytes Percent Auto 5.5 2 - 11 % [facility] Eosinophils Percent Auto 2.0 0 - 4 % [facility] Basophils Percent Auto 0.6 0 - 2 % [facility] NRBC Pct Auto 0.0 0.0 - 0.2 /100WBC [facility] Neutrophils Absolute Auto 7.4 2.0 - 8.3 x10*3/uL [facility] Imm Gran Abs Auto 0.09(H) 0.00 - 0.03 X10*3/uL [facility] Lymphocytes Absolute Auto 2.8 1.2 - 4.9 X10*3/uL [facility] Monocytes Absolute Auto 0.6 0.1 - 1.2 X10*3/uL [facility] Eosinophils Absolute Auto 0.2 0.0 - 0.4 X10*3/uL [facility] Basophils Absolute Auto 0.1 0.0 - 0.2 X10*3/uL [facility] NRBC Abs Auto 0.000 0.0 - 0.012 X10*3/uL [facility] 01/01/2023 10:2 0 AM EDT 01/01/2023 10:20 AM EDT [facility] External Provider LAB BLO OD ORDERABLES Final Result Performing Organization Address [facility]/ZIP Co de Phone Number [facility] [address] [place] [phone] * (ABNORMAL) Glucose, Whole Blood (11/13/2022 1:31 PM EDT) Glucose, Whole Blood 196(H) 60 - 115 mg/dL [facility] Comment:METER #: [id number] 5Testing performed in the Endocrinology Department [address] , [address], [facility]. 11/13/2022 1:31 PM EDT 11/13/2022 1:34 PM EDT [facility] External Provider LAB BLO OD ORDERABLES Final Result Performing Organization Address City/[facility]/ZIP Co de Phone Number [facility] [address] [place] [phone] * Hemoglobin A1c (11/13/2022 1:14 PM EDT) Hemoglobin A1c 7.4 % [facility] Comment:Hemoglobin A1C Refer ence Range Adults: 4.8 - 6.0 % Non diabetic: < 6.0 % Goal: < 7.0 %Additional Action Suggested: > 8.0 %Note: Hemoglobin A1c results are invalid for patients with abnormal amounts of HbF. Blood transfusions may impact the HbA1c concentration in the patient sample. Estimated Average Glucose 166 mg/dL [facility] Comment:eAG = Estimated ave rage glucose which is %A1C expressed asaverage glucose, using the formula of the P1S-YhabyruJevyncx Glucose study (ADAG), Diabetes Care, Vol.31,#8,2007 11/13/2022 1:14 PM EDT 11/13/2022 1:14 PM EDT us [facility] External Provider LAB BLO OD ORDERABLES Final Result [facility] [address] [place] [phone] documented in this encounter Visit Diagnoses Diagnosis Type 2 diabetes mellitus without complication, unspecified whether supervisor intermediates insulin use ([facility])- Primary documented in this encounter Care Teams Manager Editorial Relationship Specialty Start Date End Date Braulio Carabjal MD [address] [place] [phone] PCP - General Internal Medicine 12/14/19 04/28/24 documented as of this encounter
--- OUTSIDE RECORDS SUMMARY | 2024-12-22 08:21 | XMS_ITS | Encounter Summary ---
Author Organization [employer] Address [address] [place] [phone] Care Team Providers Care Irrigation Foreman Name Role Phone Braulio Carbajal MD Primary Care Prov ider Reason for Visit * Reason Onset Date Comments Med Refill 02/28/2023 Encounter Details Date Type Department Care Team (Late st Contact Info) Description 02/28/2023 Refill [facility] [address] [place] [address] Braulio Carbajal MD [address] [place] [address] Social History Tobacco Use Types Packs/Day Years [...] on filedocumented in this encounter Care Teams Irrigation Foreman Relationship Specialty Start Date End Date Braulio Carbajal MD [address] [place] [phone] PCP - General Internal Medicine 12/14/19 04/28/24 documented as of this encounter
== END 2024-12-22 09:45 | disposition home or self-care (01) ==
LOC: HO.HOP 08:12
PROVIDERS: PCP Internal Medicine; Visit Provider Counselor Mental Health
DX: F90.2 Attention-deficit hyperactivity disorder, combined type (principal); F41.0 Panic disorder [episodic paroxysmal anxiety]; F32.A Depression, unspecified
CPT/HCPCS: 90837

== ENCOUNTER → 2024-12-22 08:12 | Outpatient (BNVA) | payer OTHER, SELFPAY | PROVIDERS: PCP Internal Medicine; Visit Provider Counselor Mental Health ==

== ENCOUNTER 2025-01-05 08:29 | Outpatient (AMB) | payer OTHER, SELFPAY ==
--- NOTE | 2025-01-05 08:05 | A.OFFWM_ITS ---
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 Diabetic retinopathy Anxiety and depression GERD (gastroesophageal reflux disease) SOLE on CPAP ADHD Hyperlipidemia HTN (hypertension) with goal to be determined Diabetes mellitus Morbid obesity Surgical History Hx of LASIK History of cholecystectomy Family History Mother Diabetes Heart problem Father Hypertension Maternal Grandmother Primary cancer of bone marrow Maternal Grandfather Prostate cancer Social History Are you a primary care specialist to a significant other at home: No Do you presently have visiting nurse or other home services: No Alcohol intake: never Patient Tobacco Use Status: Never used Tobacco Female Reproductive History Menstrual Age of Menarche: 13 Behavioral Health Assessment Weight Management Therapy Therapy Notes Details Subjective: The patient reports having a great time on vacation with her family last week, feeling able to relax and disconnect from work and other stressors. She enjoyed spending quality time with her family. However, she continues to experience stress related to her 's immigration situation. The patient also shared some challenging family experiences for which she seeks support and closure. Objective: The patient attended a follow-up visit via Telehealth. Explored activities that can help her disconnect from work and stressors. Implemented Cognitive Processing Therapy (CPT) to address and process past negative family events. Utilized reflective listening while reviewing coping skills. Assessment/Response: * Mental status: WNL * Risk reported/identified: None. Assessment & Plan Assessment & Plan (1) ADHD: Code(s): F90.9 - Attention-deficit hyperactivity disorder, unspecified type Qualifiers: Attention deficit-hyperactivity disorder type: combined inattentive- hyperactive Qualified Code(s): F90.2 - Attention-deficit hyperactivity disorder, combined type (2) Panic disorder: Code(s): F41.0 - Panic disorder [episodic paroxysmal anxiety] (3) Depression, unspecified: Code(s): F32.A - Depression, unspecified Plan Continue bi-weekly behavioral health sessions to support anxiety/stress management and emotional processing. Next appointment scheduled for 01/19/2025 at 8:00 AM via Telehealth. Telehealth [facility]health [facility] Location of provider rendering services: practice address Location of patient: address on file Patient Identification confirmed using: Name, : Yes Telehealth method: video Patient verbally consented to treatment: Yes Patient verbally consented to billing insurance company: Yes Patient informed of any privacy concerns related to visit: Yes Minutes spent on Phone/Video with Pt.: 55 Coding Level of Care Code Established Pt Tele Psytx >53 mins (24299) Patient Type Established Diagnoses Attention deficit hyperactivity disorder (ADHD), combined type F90.2 Attention deficit-hyperactivity disorder type: combined inattentive- hyperactive Panic disorder F41.0 Depression, unspecified F32.A Time Spent (min) 55
--- OUTSIDE RECORDS SUMMARY | 2025-01-05 08:47 | XMS_ITS | Encounter Summary ---
Author Organization [employer] Address [address] [place] [address] Care Team Providers Care Medical Insurance Claims Specialist Name Role Phone Unavailable Primary Care Provider Unavailabl e Reason for Visit * Reason Comments Med Refill Encounter Details Date Type Department Care Team ([facility] st Contact Info) Description 10/19/2024 Refill [facility] [address] [place] [address] Braulio Carbajal MD [address] [place] [address] Social History Tobacco Use Types Packs/Day Years [...]
== END 2025-01-05 09:39 | disposition home or self-care (01) ==
LOC: HO.HOP 08:29
PROVIDERS: PCP Internal Medicine; Visit Provider Counselor Mental Health
DX: F90.2 Attention-deficit hyperactivity disorder, combined type (principal); F41.0 Panic disorder [episodic paroxysmal anxiety]; F32.A Depression, unspecified
CPT/HCPCS: 90837

== ENCOUNTER → 2025-01-05 08:29 | Outpatient (BNVA) | payer OTHER, SELFPAY | PROVIDERS: PCP Internal Medicine; Visit Provider Counselor Mental Health ==

== ENCOUNTER 2025-01-19 08:16 | Outpatient (AMB) | payer OTHER, SELFPAY ==
--- NOTE | 2025-01-19 08:19 | A.OFFWM_ITS ---
Intake Intake Visit Reasons: VIDEO OP Therapy Allergies Penicillins Allergy (Intermediate, Verified 12/15/24 08:34) Shortness of Breath pt states no food allergies Allergy (Unknown, Uncoded 12/15/24 08:34) Unknown [facility] Medical History (Updated 11/17/24 @ 12:28 by IDALMIS Cortes) Type 2 diabetes mellitus with retinopathy Asthma Insomnia Neuropathy Breast calcification, right Adenocarcinoma determined by biopsy of liver Diabetic retinopathy Anxiety and depression GERD (gastroesophageal reflux disease) SOLE on CPAP ADHD Hyperlipidemia HTN (hypertension) with goal to be determined Diabetes mellitus Morbid obesity Surgical History Hx of LASIK History of cholecystectomy Family History Mother Diabetes Heart problem Father Hypertension Maternal Grandmother Primary cancer of bone marrow Maternal Grandfather Prostate cancer Social History Are you a primary adult caregiver to a significant other at home: No Do you presently have visiting nurse or other home services: No Alcohol intake: never Patient Tobacco Use Status: Never used Tobacco Female Reproductive History Menstrual Age of Menarche: 13 Behavioral Health Assessment Weight Management Therapy Therapy Notes Details Subjective: The patient reports an improvement in her diabetes management, noting a weight loss of 15 pounds. She is nearing readiness for her scheduled weight-loss surgery at [facility]. However, she expresses concerns about her 's immigra tion situation and is mourning the loss of the family pet. Over the past two weeks, she has experienced sleep disturbances, attributed to extended work hours and resulting overtiredness, with sleep limited to 2-4 hours per night for approximately three days. She recently had a productive meeting with upper management at work to address her needs, as she feels pressured by staffing shortages and has been unable to fully [place]. Objective: The patient attended a follow-up visit via Telehealth. During the session, we discussed her functioning and processed various situations she has encountered since the last visit. A CPT and strength-based approach was employed for problem-solving, symptom management, and reflection on self-care and boundary setting. Assessment/Response: * Mental status: WNL * Risk reported/identified: WNL. Assessment & Plan Assessment & Plan (1) ADHD: Code(s): F90.9 - Attention-deficit hyperactivity disorder, unspecified type Qualifiers: Attention deficit-hyperactivity disorder type: combined inattentive- hyperactive Qualified Code(s): F90.2 - Attention-deficit hyperactivity disorder, combined type (2) Panic disorder: Code(s): F41.0 - Panic disorder [episodic paroxysmal anxiety] (3) Depression, unspecified: Code(s): F32.A - Depression, unspecified Plan Continue bi-weekly behavioral health sessions. Next appointment scheduled for 02/02/2025 at 8:00 AM via Telehealth. Telehealth Telehealth Telehealth Platform: [facility] Location of provider rendering services: practice address Location of patient: address on file Patient Identification confirmed using: Name, : Yes Telehealth method: video Patient verbally consented to treatment: Yes Patient verbally consented to billing insurance company: Yes Patient informed of any privacy concerns related to visit: Yes Minutes spent on Phone/Video with Pt.: 60 Coding Level of Care Code Established Pt Tele Psytx >53 mins (78751) Patient Type Established Diagnoses Attention deficit hyperactivity disorder (ADHD), combined type F90.2 Attention deficit-hyperactivity disorder type: combined inattentive- hyperactive Panic disorder F41.0 Depression, unspecified F32.A Time Spent (min) 60
== END 2025-01-19 09:33 | disposition home or self-care (01) ==
LOC: HO.HOP 08:16
PROVIDERS: PCP Internal Medicine; Visit Provider Counselor Mental Health
DX: F90.2 Attention-deficit hyperactivity disorder, combined type (principal); F41.0 Panic disorder [episodic paroxysmal anxiety]; F32.A Depression, unspecified
CPT/HCPCS: 90837

== ENCOUNTER → 2025-01-19 08:16 | Outpatient (BNVA) | payer OTHER, SELFPAY | PROVIDERS: PCP Internal Medicine; Visit Provider Counselor Mental Health ==

== ENCOUNTER 2025-02-02 08:40 | Outpatient (AMB) | payer OTHER, SELFPAY ==
--- NOTE | 2025-02-02 08:05 | A.OFFWM_ITS ---
Intake Intake Visit Reasons: VIDEO OP Therapy Allergies Penicillins Allergy (Intermediate, Verified 03/16/25 13:12) Shortness of Breath pt states no food allergies Allergy (Unknown, Uncoded 03/16/25 13:12) Unknown [facility] Medical History Type 2 diabetes mellitus with retinopathy Asthma Insomnia Neuropathy Breast calcification, right Adenocarcinoma determined by biopsy of liver Diabetic retinopathy Anxiety and depression GERD (gastroesophageal reflux disease) SOLE on CPAP ADHD Hyperlipidemia HTN (hypertension) with goal to be determined Diabetes mellitus Morbid obesity Surgical History Hx of LASIK History of cholecystectomy Family History Mother Diabetes Heart problem Father Hypertension Maternal Grandmother Primary cancer of bone marrow Maternal Grandfather Prostate cancer Social History Are you a primary director of health care marketing to a significant other at home: No Do you presently have visiting nurse or other home services: No Alcohol intake: never Patient Tobacco Use Status: Never used Tobacco Female Reproductive History Menstrual Age of Menarche: 13 Behavioral Health Assessment Weight Management Therapy Therapy Notes Details Subjective: The patient reports feeling ?better today? and has been making an effort to use her time off more effectively. Despite these efforts, she continues to experience fatigue and low motivation. Objective: The patient presented for a behavioral health follow-up visit via Telehealth. During the session, we explored a range of recent events and contributing factors that may be impacting her current symptoms. Interventions focused on s ymptom management and the development of adaptive coping skills. Cognitive- behavioral therapy (CBT) techniques were utilized, including cognitive restructuring to address negative thought patterns and behavioral activation to encourage engagement in meaningful activities. The behavioral activation plan was reviewed and updated, with specific attention to identifying small, achievable goals for daily routines. Additional interventions included psychoeducation on the relationship between activity level and mood, guided problem-solving for barriers to motivation, and the introduction of brief min dfulness exercises to help manage fatigue. The patient was encouraged to track her mood and energy levels between sessions to identify patterns and triggers. Safety and risk were assessed; no concerns were identified. Assessment/Response: Mental status was within normal limits throughout the session. The patient demonstrated insight into her symptoms and was receptive to interventions. No acute risk was reported or identified. Assessment & Plan Assessment & Plan (1) ADHD: Code(s): F90.9 - Attention-deficit hyperactivity disorder, unspecified type Qualifiers: Attention deficit-hyperactivity disorder type: combined inattentive- hyperactive Qualified Code(s): F90.2 - Attention-deficit hyperactivity disorder, combined type (2) Panic disorder: Code(s): F41.0 - Panic disorder [episodic paroxysmal anxiety] (3) Depression, unspecified: Code(s): F32.A - Depression, unspecified Plan The patient will continue with bi-weekly visits to support ongoing symptom management and skill development. The next appointment is scheduled for 02/17/25 via Telehealth. Telehealth Telehealth Telehealth Platform: [email or web address] Location of provider rendering services: other (Home office. [place], [place]) Location of patient: address on file Patient Identification confirmed using: Name, : Yes Telehealth method: video Patient verbally consented to treatment: Yes Patient verbally consented to billing insurance company: Yes Patient informed of any privacy concerns related to visit: Yes Minutes spent on Phone/Video with Pt.: 60 Coding Level of Care Code Established Pt Tele Psytx >53 mins ([id number]) Patient Type Established Diagnoses Attention deficit hyperactivity disorder (ADHD), combined type F90.2 Attention deficit-hyperactivity disorder type: combined inattentive- hyperactive Panic disorder F41.0 Depression, unspecified F32.A Time Spent (min) 60
--- OUTSIDE RECORDS SUMMARY | 2025-02-02 08:46 | XMS_ITS | Data Portability ---
Author Organization [place] - [facility],, ADRIANA LARA MD Address [address] [address] Assessment No assessment recorded. Plan of Treatment Reminders Order Date Submit Date Provider Last Modified By Organization Details Last Modified Time Details Appointments None recorded. Lab pap test, thinprep, cervical 2021 022 [email or web address] [facility], Cytopathology Service, [address] [place] [address], [address], 2 07:36:24 fecal occult blood, stool 2021 022 [email or web address] In-Office Order, Internal Use Only DO Not Attach Compendium DO Not Attach Compendium, Do Not Delete/merge, [id number] 2 11:34:07 pap test, thinprep, cervical 2020 021 [email or web address] [facility], Cytopathology Service, [address] [place] [address], [address], 1 07:14:16 fecal occult blood, stool 2020 021 [email or web address] 1 In-Office Order, Internal Use Only DO Not Attach Compendium DO Not Attach Compendium, Do Not Delete/merge, [id number] 13:58:54 pap test, thinprep, cervical 2019 020 [email or web address] [facility], Cytopathology Service, [address] [place] [address], [address], 0 08:59:10 fecal occult blood, stool 2019 020 [email or web address] In-Office Order, Internal Use Only DO Not Attach Compendium DO Not Attach Compendium, Do Not Delete/merge, [id number] 0 08:59:10 pap test, thinprep, cervical 2018 019 [facility], Cytopathology Service, [address] [place] [address], [address], 9 04:32:23 fecal occult blood, stool 2018 019 [email or web address] In-Office Order, Internal Use Only DO Not Attach Compendium DO Not Attach Compendium, Do Not Delete/merge, [id number] 9 07:31:20 pap test, thinprep, cervical 2014 015 [facility], Cytopathology Service, [address] [place] [address], [address], 5 12:26:29 chlamydia sp, culture, unspecifi ed specimen 2014 015 [facility], Cytopathology Service, [address] [place] [address], [address], 5 08:24:20 NG DNA, PCR, genital 2014 015 [facility], Cytopathology Service, [address] [place] [address], [address], 5 08:24:20 test, urine 2014 015 [email or web address] 1 In-Office Order, Internal Use Only DO Not Attach Compendium DO Not Attach Compendium, Do Not Delete/merge, [id number] 5 11:43:08 Referral None recorded. Procedures None recorded. Surgeries None recorded. Imaging MAMMO, screening , digital, bilateral 2021 022 [facility] Orders, [address], [address], [place], [address], 4 07:16:34 MAMMO, screening , digital, bilateral 2020 021 [facility] Orders, [address], [address], [place], [address], 2 07:36:18 MAMMO, screening , digital, bilateral 2019 020 [facility] (Mammography), [address] [facility], [place], [address], 1 07:41:40 MAMMO, screening , digital, bilateral 2018 019 [facility] Orders, [address], [address], [place], [address], 0 07:25:26 Medication Orders None recorded. Patient TargetsNo targets recorded. Patient Instructions Encounter Date Encounter Id Patient Instructions Last Modified By Organization Details Last Modified Time 12/07/2014 [id number] She is here for annual exam. Her latest A1C was 10, in 06/18, the [facility] infertility referred her to endocrinology in 06/18, [...] irregular every 4 to 6 weeks, no m0lmikt no for 6 weeks, check u preg, [...] in detail. Not available 12/07/2014 11:43:09 09/01/2018 [id number] She is here for annual exam. She has not been here since 2014. She was seeing [facility] infertility but they gave up on theat and put in a Mirena 2 years ago. No menses. Her diabetes has been Bad. In 07/2016 she started a process to do bariatric surgery at [facility]. She went through all the [...] A1C was 10, in 06/18, the [facility] infertility referred her to endocrinology in 06/18, [...] well. Advised to follow up with her fishing reel assembler about her diabetes. She is going back [...] questions answered. Not available 09/01/2018 10:07:54 09/08/2019 [id number] She is here for annual exam, her weight is stable at 367 pounds. Her was in the ICU for 4 weeks due to sepsis, he is better now though. She had a Mirena placed 3 years ago, no menses. note form 2019: She is here for annual exam. She has not been here since 2014. She was seeing [facility] infertility but they gave up on theat and put in a Mirena 2 years ago. No menses. Her diabetes has been Bad. In 07/2016 she started a process to do bariatric surgery at [facility]. She went through all the [...] the date of IUD insertion at [facility] for us so that we know when [...] detail. rebecca Not available 09/08/2019 15:23:23 04/04/2021 [id number] learning about healthy weight [email or web address] Not available 04/04/2021 13:58:54 She is here for annual exam, weight is 391 pounds, BMI is 58.6. She had a Mirena inserted 08/2016. No menses. Her mother earlier this year due to natural causes, in [place], she is still grieving. She and her are , she wanted to go to couples counseling but he would only go in [place] and they could not find a [place] counselor. Note from 2019: She is [...] a process to do bariatric surgery at [facility]. She went through all the counseling ,etc, but things fell through the cracks. She is considering going back again. she had weighted more than 400 pounds last year, she lost some weight this past year with diet and exercise but still weighs 366 pounds today. She appears to be doing well. She and I discussed having her go back to [facility] to get back into their [...] breast. [email or web address] Not available 04/04/2021 14:00:20 04/17/2022 [id number] learning about healthy weight [email or web address] Not available 04/17/2022 10:59:33 Her weight is [...] this year due to natural causes, in [place], she is still grieving. She and her are , she wanted to go to couples counseling but he would only go in [place] and they could not find a [place] counselor. She appears to be doing [...] discovers any new mass in the breast. [email or web address] Not available 04/17/2022 10:59:31 Reason for Referral None Reported. Results Created Date Observation Date Name Description Value Unit Range Abnormal Flag Note LastModifiedBy Organization Detail LastModifiedTime 04/04/20 21 04/04/2021 fecal occul t blood , stool Occult Blood negati ve Not Available In-Office Order Internal Use Only DO Not Attach Compendium DO Not Attach Compendium, Do Not Delete/merge, [id number] 04/04/2021 13:36:07 09/08/19 20 09/08/2019 fecal occul t blood , stool Occult Blood negati ve Not Available In-Office Order Internal Use Only DO Not Attach Compendium DO Not Attach Compendium, Do Not Delete/merge, [id number] 09/08/2019 15:00:26 09/01/19 19 09/01/2018 fecal occul t blood , stool Occult Blood negati ve Not Available In-Office Order Internal Use Only DO Not Attach Compendium DO Not Attach Compendium, Do Not Delete/merge, [id number] 09/01/2018 09:30:38 12/08/19 15 12/07/2014 pregn marshal test, urine HCG negati ve Not Available In-Office Order Internal Use Only DO Not Attach Compendium DO Not Attach Compendium, Do Not Delete/merge, [id number] 12/07/2014 10:52:47 12/08/19 15 12/07/2014 gener [email or web address] se [email or web address] RESUL TS OF GEN-P ROBE APTIM A COMBO 2 ASSAY Chlam ydia: NEGAT SÁNCHEZ N. gonor rhoea e: NEGAT SÁNCHEZ GENA Camden RIOS M.D., Patho logis t (Case elect martin sy chuy d 12 09 2014) CLINI [facility] INFOR MATIO N: LPS NEG SOURC E: ThinP rep Pap for CT/GC Gross Descr iptio n: ThinP rep Vial Recei joanne. Physi JAYSON Russ N /#[phone]/[phone] [id number] [phone] Cytop athol ogy servi carlos provi ded by [facility] at the above addre ss. Not Available [facility], Cytopathology Service [address] [place], [address], 12/09/2014 15:06:31 12/08/19 15 12/07/2014 pap, LB [email or web address] ThinP rep Pap, Image d: NEGAT SÁNCHEZ FOR SQUAM OUS INTRA EPITH ELIAL LESIO N AND PREM CARD . Tonie Bejarano ams, CT( CP) [...] at the above addre ss. Not Available [facility], Cytopathology Service [address] [place] [address], [address], 12/14/2014 12:26:29 09/01/19 19 09/01/2018 pap, LB [id number] ThinP rep Pap, Image d: NEGAT SÁNCHEZ [...] . LPS 5 NEG, Z12.4 Not Available [facility], Cytopathology Service [address] [place] [address], [address], 09/02/2018 17:26:28 09/08/19 20 09/08/2019 pap, LB [email or web address] ThinP rep Pap, Image d: NEGAT SÁNCHEZ [...] . LPS NEG [Z12. 4] Not Available [facility], Cytopathology Service [address] [place], [address], 09/10/2019 13:06:44 04/04/20 21 04/04/2021 PAP1C ASE [id number] ThinP rep Pap, Image d: NEGAT SÁNCHEZ [...] LPS 0 NEG [Z12. 4] Not Available [facility], Cytopathology Service [address] [place] [address], [address], 04/12/2021 13:55:52 04/17/2004/17/2022 PAP1C ASE [id number] ThinP rep Pap, Image d: NEGAT SÁNCHEZ [...] IUD, LPS neg. [z01. 419] Not Available [facility], Cytopathology Service [address] [place] [address], [address], 04/23/2022 08:11:00 04/17/20 22 04/17/2022 fecal occul t blood , stool Occult Blood negati ve Not Available In-Office Order Internal Use Only DO Not Attach Compendium DO Not Attach Compendium, Do Not Delete/merge, [id number] 04/17/2022 10:29:09 Result Notes None recorded. Problems Name Problem SNOMED Code Status Onset Date Resolution Date Notes Provider Name and Address Organization Details Recorded Time Candidal vulvovaginiti s 53059523 Active Not Available [facility] 3 03:01:06 Irritable bowel syndrome 02447027 Active Not Available [facility] 3 03:01:06 Obesity 610600903 Active Not Available [facility] 3 03:01:06 Oligoovulator y dysfunctional uterine bleeding 137066326 Active Adriana Lara MD [address], [place], [address] , [place] - [facility], 5 11:43:08 Uncontrolled type 2 diabetes mellitus 289919915 Active Not Available [facility] 3 03:01:06 Primary female infertility 0903911 Active Not Available [facility] 3 03:01:06 Pruritus of vulva 45481818 Active Not Available [facility] 3 03:01:06 Pain in pelvis 81417867 Active Adriana Lara MD [address], [place], [address] , [place] - [facility], 4 15:07:42 Glycosuria 29846592 Active Adriana Lara MD [address], [place], [address] , [place] - [facility], 4 15:07:42 Problem Notes None recorded. Procedures Surgical History Date Name Laterality Status Provider Name and Address Organization Details Recorded Time 04/05/20 20 Most Recent Mammogram completed Yashira Alonso [place] - [facility], 04/17/2022 10:36:13 08/05/19 00 Cholecystectomy completed Taryn Beasley [place] - [facility], 11/10/2012 13:22:27 Imaging Results None recorded. Procedure Notes None recorded. Medical Equipment None Reported. Allergies Allergen ID Allergen Name Allergen Category Reaction Reaction Severity Criticality Documentation Date Start Date Code Code System Note Provider Name and Address Organization Details Recorded Time 65226 [facility] environme nt,medica tion rash Not available Not available 09/08/2019 15292 RxNorm Yashira Celeste [place] - [facility], 0 14:53:01 7561 Product containin g penicilli n (product) medicatio n rash Not available Not available 11/10/2012 23461 8001 SNOMED Taryn Beasley [place] - [facility], 3 13:11:08 Medications Name Sig Start [...] U-500 (Concentra stewart) Insulin 500 unit/mL subcutaneo soln INJECT 30U (0.06 ML) BY SUBCUTANE [...] Available Not Available Not Available Afluria Quad (PF) 60 mcg (15 mcg x 4)/0.5 mL IM syringe active Not Available Not Available N ot Available FreeStyle Alexei 14 Day Belsano FOR TESTING GLUCOSE LEVELS active Not Available [...] 9 175.26 cm 95 /min 54.2 kg/m2 229574. 68 g 122 mm[Hg] 65 mm[Hg] Taryn Beasley [place] - [facility], 9 09:12:36 Date Recorded Body weight Body mass index (BMI) Body height Heart rate Systolic blood pressure Diastolic blood pressure Provider Name and Address Organization Details Last Updated DateTime 0 910638. 12 g 55 kg/m2 173.99 cm 110 /min 132 mm[Hg] 77 mm[Hg] Yashira Tomlinson [facility], 0 14:53:44 Date Recorded Body weight Heart rate Body mass index (BMI) Body height Systolic blood pressure Diastolic blood pressure Provider Name and Address Organization Details Last Updated DateTime 5 823604. 1769 g 103 /min 54.6 kg/m2 175.26 cm 119 mm[Hg] 71 mm[Hg] Yashira Alonso [place] - [facility], 5 10:17:20 Date Recorded Body height Body temperature Body mass index (BMI) Body weight Heart rate Systolic blood pressure Diastolic blood pressure Provider Name and Address Organization Details Last Updated DateTime 1 173.99 cm 97.2 [degF] 58.6 kg/m2 652566. 34 g 104 /min 141 mm[Hg] 75 mm[Hg] Yashira Alonso [place] - [facility], 1 13:34:29 Date Recorded Body weight Body mass index (BMI) Body height Body temperature Heart rate Systolic blood pressure Diastolic blood pressure Provider Name and Address Organization Details Last Updated DateTime 2 893348. 19 g 54.3 kg/m2 172.72 cm 98.1 [degF] 93 /min 142 mm[Hg] 79 mm[Hg] Yashira Alonso [place] - [facility], 2 10:33:37 Social History Question Answer Notes LastModified by Organizat ion Details LastModified Time Tobacco Smoking Status Never Smoker Not Available [facility] 06/07/2020 03:19:40 What Is Your Level Of Caffeine Consumption? Occasional [id number] Information not available 06/07/2020 In The 14 [...] Type Of Diet Are You Following? REGULAR [id number] Information not available 06/07/2020 Which Illicit Or Recreational Drugs Have You Used? None [id number] Information not available 06/07/2020 Do You Reside In Or Have You Traveled To An Area Where Ebola Virus Transmission Is Active? No [id number] Information not available 06/07/2020 Education Post Graduate Information not available 11/10/2012 What Is The Highest Grade Or Level Of School You Have Completed Or The Highest Degree You Have Received? [id number] Information not available 04/04/2021 Who Is Your [...] Female Information not available 09/01/2018 Marital Status [employer] Informat[employer] n not available 11/10/2012 What Was The Date Of Your Most Recent Tobacco Screening? 04/04/2021 Information not available 04/04/2021 What Is Your Relationship Status? Information not available 04/04/2021 Are You Sexually Active? Yes [id number] Information not available 06/07/2020 How Much Tobacco Do You Smoke? No [id number] Information not available 06/07/2020 General Stress Level [...] is your level of alcohol consumption? None [id number] Information not available 06/07/2020 Do you or have you ever used smokeless tobacco? Never used smokeless tobacco [id number] Information not available 06/07/2020 Are you currently employed? 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 Never used electronic cigarettes [id number] Information not available 06/07/2020 What is your exercise level? None [id number] Information not available 06/07/2020 Mental Status Question Answer Note LastModified by Organization D etails LastModified Time Do you feel stressed (tense, restless, nervous, or anxious, or unable to sleep at night)? [id number] Information not available 04/04/2021 Family History Relationship [...] Lara MD [address], [place], [address], [place] Orozco in [facility], 11/10/2012 13:43:51 Tdap 3 completed [place] Sexton in [facility], 12/11/2012 15:22:23 Influenza, split virus, quadrivalent, preservative 9 completed [place] Sexton in [facility], 09/01/2018 09:26:24 COVID-19, mRNA, LNP-S, PF, 100 mcg/0.5mL dose or 50 mcg/0.25mL dose 1 completed Yashira StewartywKEERTHI suggs in [facility], 04/04/2021 13:38:30 Influenza, split virus, quadrivalent, preservative 1 completed Yashira [place] Gordillo in [facility], 04/17/2022 10:34:55 Past Encounters Encounter ID Performer Location Encounter Start Date Encounter Closed Date Diagnosis/Indication Diagnosis SNOMED-CT Code Diagnosis ICD10 Code Diagnosis Note [id number] MD ADRIANA Dickson MD [address] [place] [address] 11/10/2012 12:51:19 11/11/2012 08:37:47 [id number] MD ADRIANA Dickson MD [address] [place] [address] 12/11/2012 15:08:24 12/12/2012 16:10:03 [id number] MD ADRIANA Dickson MD [address],[place] [address] 08/21/2013 13:33:26 08/21/2013 15:51:36 Pain in pelvis 75779636 Acute lowe r urinary tract infection 477624071 Glycosuria 00413855 [id number] MD ADRIANA Dickson MD [address] [place] [address],[place] [address] 11/13/2013 09:28:08 11/13/2013 13:10:39 Specialized medical examination 25765065 [id number] MD ADRIANA Dickson MD [address] [place] [address],[place] [address] 12/07/2014 10:02:59 12/07/2014 13:34:46 Specialized medical examination 13751252 Venereal d isease screening 440680698 Oligoovula tory dysfunctional uterine bleeding 553936027 [id number] MD ADRIANA Dickson MD [address] [place] [address],[place] [address] 09/01/2018 09:04:26 09/01/2018 12:06:59 Specialized medical examination 89494662 Z01.419 Screening for malignant neoplasm of rectum 063590458 Z12.12 Screening mammography 24 916578 Z12.31 [id number] MD ADRIANA Dickson MD [address] [place] [address],[place] [address] 09/08/2019 14:46:50 09/08/2019 15:34:18 Specialized medical examination 82999708 Z01.419 Screening for malignant neoplasm of rectum 175504255 Z12.12 Screening mammography 24 066510 Z12.31 [id number] MD ADRIANA Dickson MD [address] [place] [address],[place] [address] 04/04/2021 13:29:45 04/04/2021 14:48:20 Specialized medical examination 19809304 Z01.419 Screening for malignant neoplasm of rectum 058155260 Z12.12 Screening mammography 24 105061 Z12.31 [id number] MD ADRIANA Dickson MD [address] [place] [address], [place] [address] 04/17/2022 10:28:03 04/17/2022 11:34:15 Specialized medical examination 36514893 Z01.419 Screening for malignant neoplasm of rectum 382257986 Z12.12 Screening mammography 24 795396 Z12.31 Health Concerns Section Related Observation LastModified by Organization Detai ls LastModified Time None Recorded Concern Status LastModified by Organization Details LastModified Time None Recorded Advance Directives Directive None Recorded Payers Insurance Date Sequence Insurance Name Policy Number Policy Fountain Covered Member ID Fountain Member ID Guarantor Name 09/03/2019 1 [facility] [id number] Glorymar López [id number] Glorymar López Colon 09/03/[address] [facility] [id number] Glorymar López [id number] Glorymar López Colon 09/03/[address] [facility] - CHOICE (O) [id number] Glorymar López [id number] Glorymar López Colon 04/14/2022 1 [facility] [id number] Glorymar López [id number] Glorymar López Colon 09/03/2019 1 [facility] [id number] Glory López [id number] 1 Glorymar López Colon 02/14/2023 2 [employer] [id number] Glorymar López Colon [id number] Glorymar López Colon Notes Date Note Type [...] a process to do bariatric surgery at [facility]. She went through all the counseling ,etc, but things fell through the cracks. She is considering going back again. she had weighted more than 400 pounds last year, she lost some weight this past year with diet and exercise but still weighs 366 pounds today. _ note from 2015: She is here for annual exam. Her latest A1C was 10, in 06/18, the [facility] infertility referred her to endocrinology in 06/18, she was given instructions for rescue insulin doses when her sugars are high, she is doing that now, she had an A1C drawn on 11/25/14 but has not received the results yet. Adriana Lara MD [address] [facility],[address], [place], [address], [place] - [facility], 09/01/2018 10:08:27 09/08/2019 text/html She is [...] here since 2014. She was seeing [facility] infertility but they gave up on theat and put in a Mirena 2 years ago. No menses. Her diabetes has been Bad. In 07/2016 she started a process to do bariatric surgery at [facility]. She went through all the counseling ,etc, but things fell through the cracks. She is considering going back again. she had weighted more than 400 pounds last year, she lost some weight this past year with diet and exercise but still weighs 366 pounds today. Adriana Lara MD [address], [place], [address], [place] - [facility], 09/08/2019 15:23:49 04/04/2021 text/html She is here for annual exam, weight is 391 pounds, BMI is 58.6. She had a Mirena inserted 08/2016. No menses. Her mother earlier this year due to natural causes, in [place], she is still grieving. She and her are , she wanted to go to couples counseling but he would only go in [place] and they could not find a [place] counselor. Note from 2019: She is [...] a process to do bariatric surgery at [facility]. She went through all the counseling ,etc, but things fell through the cracks. She is considering going back again. she had weighted more than 400 pounds last year, she lost some weight this past year with diet and exercise but still weighs 366 pounds today. Adriana Lara MD [address], [place], [address], [facility], 04/04/2021 14:00:40 04/17/2022 text/html Her [...] this year due to natural causes, in [place], she is still grieving.She and her are , she wanted to go to couples counseling but he would only go in [place] and they could not find a [place] counselor. Adriana Lara MD [address], [place], [address], [facility] - [facility], 04/17/2022 11:00:04 OBGyn Episode No OBEpisode recorded.
--- OUTSIDE RECORDS SUMMARY | 2025-02-02 08:46 | XMS_ITS | Clinical Summary ---
Author Organization [facility] Address [address] [place] [address] Care Team Providers Care Market Analyst Name Role Phone Braulio Lopez MD Primary Care Provider [phone] Allergies Active Allergy Reactions Criticality Noted Date [...] 112 03/20/2022 1:14 PM EDT Temperature 36.8 C (98.2 F) 03/20/2022 1:14 PM EDT Respiratory Rate 13 06/21/2015 9:06 AM EST [...] Td or Tdap) 12/11/2022 013 Influenza Vaccine (Season Ended) 2025 Pneumococcal Vaccine Aged Out No long er eligible based on patient's age to complete this topic RSV Ped < 20 months Aged Out No longe r eligible based on patient's age to complete this topic Care Teams Market Analyst Relationship Specialty Start Date End Date Braulio Lopez MD [address] [place] [address] PCP - General Internal Medicine 03/20/22
--- OUTSIDE RECORDS SUMMARY | 2025-02-02 08:46 | XMS_ITS | Encounter Summary ---
Author Organization [employer] Address [address] [facility] 7t [place] [address] Care Team Providers Care Last Pattern Grader Name Role Phone Unavailable Primary Care Provider Unavailabl e Reason for Visit * Reason Comments Med Refill Encounter Details Date Type Department Care Team ([facility] st Contact Info) Description 10/19/2024 Refill [facility] [address] [place] [address] Braulio Carbajal MD [address] [place] [address] Social History Tobacco Use Types Packs/Day Years [...]
--- OUTSIDE RECORDS SUMMARY | 2025-02-02 08:46 | XMS_ITS | Clinical Summary ---
Author Organization [facility] Facility Address [address] [place] [address] Care Team Providers Care Paper Machine Supervisor Name Role Phone Braulio Lopez Primary Care Provider [phone] Allergies Active Allergy Reactions Criticality Noted Date [...] age to complete this topic Care Teams Paper Machine Supervisor Relationship Specialty Start Date End Date Braulio Lopez PCP - General Internal Medicine 02/01/22
--- OUTSIDE RECORDS SUMMARY | 2025-02-02 08:46 | XMS_ITS | Continuity of Care Document ---
Author Organization [facility] Address [address] [facility] [address] [place] [address] Phone [phone] Social History Type Date Description Comments Sex Female Sex Unknown Medical Devices Description No Information Available Encounters Description No Information Available Assessments Description No Information Available Plan of Treatment No Information Available Functional Status Description No Information Available Mental Status Description No Information Available Referrals Description No Information Available
--- OUTSIDE RECORDS SUMMARY | 2025-02-02 08:46 | XMS_ITS | Clinical Summary ---
Author Organization 175 [facility] Address [address] [place] [address] Phone Care Team Providers Care Food Cart Attendant Name Role Phone Braulio Carbajal Primary Care [...] (BMI) of 50.0 to 59.9 in adult ([facility] V24, [facility] V28) 01/18/2025 Class 3 severe obesity with serious comorbidity and body mass index (BMI) of 50.0 to 59.9 in adult ([facility] V24, [facility] V28) 12/18/2024 Class 3 severe obesity with serious comorbidity and body mass index (BMI) of 50.0 to 59.9 in adult ([facility] V24, [facility] V28) 07/20/2024 HTN (hypertension) 05/22/2024 IBS (irritable bowel syndrome) 05/22/2024 ADHD (attention deficit hype ractivity disorder), combined type 08/16/2014 Sleep apnea 06/28/2014 Morbid obesity ([facility] V24, [facility] V28) 2013 Overview (05/22/2024): BMI 52.25 on 06/05/13. Condition not found 06/05/2013 Overview (05/22/2024): Diabetes mellitus type II, uncontrolled Depression 04/05/2012 Encounters Date Type Department Care Team Description 01/18/2025 11:00 AM EDT Nutrition Bariatric Surgery [address] [phone] Class 3 severe obesity with serious comorbidity and body mass index (BMI) of 50.0 to 59.9 in adult, unspecified obesity type ([facility] V24, [facility] V28) (Primary Dx) 12/18/2024 8:00 AM EDT Nutrition Bariatric Surgery [address] [phone] Class 3 severe obesity with serious comorbidity and body mass index (BMI) of 50.0 to 59.9 in adult, unspecified obesity type ([facility] V24, [facility] V28) (Primary Dx) from Last 3 Months Immunizations Name Administration Dates Next Due Tdap Tetanus diptheria acell ular pertussis (Boostrix; Adacel) 7yo and older 12/11/2012 Surgical History Surgery Date Site/Laterality Comments CHOLECYSTECTOMY 1999 PROCEDURE: HISTORICAL CHOLECYSTECTOMY Medical History Medical History Date Comments HTN (hypertension) 2011 DX:HTN (hyper tension) DM (diabetes mellitus) ([facility] V24, [facility] V28) 2006 DX:DM (diabetes mellitus) (H [...] 101 07/08/2024 1:01 PM EST Temperature 36.7 C (98.1 F) 07/08/2024 1:01 PM EST Respiratory Rate - - Oxygen Saturation - - Inhaled Oxygen Concentration - - Weight 154 kg (339 lb) 01/18/2025 11:09 AM EDT Height 175.3 cm (5' 9 ) 07/08/2024 1:01 PM EST Body Mass Index 50.06 07/08/2024 1:01 PM EST Plan of Treatment Upcoming Encounters Date Type Department Care Team (Late st Contact Info) Description 04/12/2025 9:00 AM EDT Nutrition Bariatric Surgery - [place] [address] [facility] [address] [place] [phone] Prema Wallis, RD 175 [facility] [address] [place] [address] Health Maintenance Due Date Last Done [...] Routine 07/20/2024 8:33 AM EST Morbid obesity ([facility] V24, [facility] V28) HEMOGLOBIN A1C Routine 07/20/2024 8:33 AM EST Morbid obesity ([facility] V24, [facility] V28) LIPID PANEL WITH REFLEX TO DIRECT LDL Routine 07/20/2024 8:33 AM EST Morbid obesity ([facility] V24, [facility] V28) HM URINE ALBUMIN CREATININE RATIO Routine 02/26/2014 from Last 3 Months or Most Recently Relevant to Health Maintenance Results * (ABNORMAL) Lipid panel with reflex to direct LDL (07/20/2024 8:33 AM EST) Cholesterol 179 0 - 200 mg/dL LAB CHEMISTRY METHOD 07/20/2024 11:24 AM [facility] Triglycerides 89 0 - 150 mg/dL LAB CHEMISTRY METHOD 07/20/2024 11:24 AM [facility] HDL 53 >=40 mg/dL LAB CHEMISTRY METHOD 07/20/2024 11:24 AM [facility] LDL Calculated 108(H) 0 - 100 mg/dL LAB CHEMISTRY METHOD 07/20/2024 11:24 AM [facility] VLDL Cholesterol Francisco J 17.8 mg/dL LAB CHEMISTRY METHOD 07/20/2024 11:24 AM [facility] Non HDL Chol. (LDL+VLDL) 126 <145 mg/dL LAB CHEMISTRY METHOD 07/20/2024 11:24 AM [facility] Chol/HDL Ratio 3.4 0.0 - 4.4 LAB CHEMISTRY METHOD 07/20/2024 11:24 AM [facility] Blood Venous blood specimen / Unknown Venipuncture / Unknown 07/20/2024 8:33 AM EST 07/20/2024 8:33 AM EST us Gosia Stoner MD LAB BLOOD ORDERABLES Fi nal Result [facility] [address] [place] [address], [place] [phone] * (ABNORMAL) Hemoglobin A1c (07/20/2024 8:33 AM EST) Pathologist [facility] Hemoglobin A1C 7.9(H) <6.5 % LAB CHEMISTRY METHOD 07/20/2024 2:[address] [facility] Mean Bld Glu Estim. 180 mg/dL LAB CHEMISTRY METHOD 07/20/2024 2:[address] [facility] Blood Venous blood specimen / Unknown Venipuncture / Unknown 07/20/2024 8:33 AM EST 07/20/2024 8:33 AM EST us Gosia Stoner MD LAB BLOOD ORDERABLES Fi nal Result [facility] [address] [place] [address], [place] [phone] * (ABNORMAL) Comprehensive metabolic panel (07/20/2024 8:33 AM EST) Pathologist [facility] Sodium 136 133 - 145 mmol/L LAB CHEMISTRY METHOD 07/20/2024 11:[address] [facility] Potassium 4.5 3.5 - 5.5 mmol/L LAB CHEMISTRY METHOD 07/20/2024 11:[address] [facility] Chloride 100 96 - 110 mmol/L LAB CHEMISTRY METHOD 07/20/2024 11:[address] [facility] CO2 25 21 - 32 mmol/L LAB CHEMISTRY METHOD 07/20/2024 11:[address] [facility] Anion Gap 11 3 - 11 LAB CHEMISTRY METHOD 07/20/2024 11:24 AM [facility] Glucose 148(H) 70 - 100 mg/dL LAB CHEMISTRY METHOD 07/20/2024 11:24 AM [facility] BUN 15 5 - 25 mg/dL LAB CHEMISTRY METHOD 07/20/2024 11:24 AM [facility] Creatinine 0.71 0.50 - 1.10 mg/dL LAB CHEMISTRY METHOD 07/20/2024 11:24 AM [facility] eGFR 105 >=60 mL/min/1. 73m2 LAB CHEMISTRY METHOD 07/20/2024 11:24 AM [facility] Comment:Calculation based on the Chronic Kidney Disease Epidemiology Collaboration (CKD-EPI) equation refit without adjustment for race. BUN/Creatinine Ratio 21.1 LAB CHEMISTRY METHOD 07/20/2024 11:24 AM [facility] Calcium 9.7 8.5 - 10.5 mg/dL LAB CHEMISTRY METHOD 07/20/2024 11:24 AM [facility] AST (SGOT) 16 10 - 42 unit/L LAB CHEMISTRY METHOD 07/20/2024 11:24 AM [facility] ALT (SGPT) 29 10 - 60 unit/L LAB CHEMISTRY METHOD 07/20/2024 11:24 AM [facility] Alkaline Phosphatase 124(H) 42 - 121 unit/L LAB CHEMISTRY METHOD 07/20/2024 11:24 AM [facility] Total Protein 7.7 6.0 - 8.0 g/dL LAB CHEMISTRY METHOD 07/20/2024 11:24 AM [facility] Albumin 3.6 3.2 - 5.0 g/dL LAB CHEMISTRY METHOD 07/20/2024 11:24 AM [facility] Total Bilirubin 0.4 0.0 - 1.4 mg/dL LAB CHEMISTRY METHOD 07/20/2024 11:24 AM [facility] Blood Venous blood specimen / Unknown Venipuncture / Unknown 07/20/2024 8:33 AM EST 07/20/2024 8:33 AM EST us Gosia Stoner MD LAB BLOOD ORDERABLES Fi nal Result [facility] [address] [place] [address], [place] [phone] * HM Urine Albumin Creatinine Ratio (02/26/2014) HM Urine Albumin Creatinine Ratio Abstracted us Historical Provider HEALTH MAINTENANCE Final Result from Last 3 Months or Most Recently Relevant to Health Maintenance Insurance [employer] Care Teams Food Cart Attendant Relationship Specialty Start Date End Date Braulio Carbajal [address] [place] [address] PCP - General Internal Medicine 03/20/22
--- OUTSIDE RECORDS SUMMARY | 2025-02-02 08:47 | XMS_ITS ---
Author Name [facility] Organization Unknown History of Medication Use Medication Directions Dispensed Refills Start Date End Date Stat us meloxicam 15 mg tablet Take 1 tablet every day by oral route. 06/18/2024 active bupropion HCl XL 300 mg 24 hr tablet, extended release active clindamycin HCl 300 mg capsule TAKE 1 CAPSULE BY MOUTH EVERY 6 HOURS UNTIL GONE active dextroamphetamine-amp hetamine ER 25 mg 24hr capsule,extend release active ibuprofen 800 mg tablet TAKE 1 TABLET BY MOUTH EVERY 6 HOURS FOR PAIN active Jardiance 10 mg tablet active Mounjaro 7.5 mg/0.5 mL subcutaneous pen injector active vitamin A 3,000 mcg (10,000 unit) capsule act tanner Problems Problem Status Onset Date Problem Type Date of Resoluti on Source Osteoarthritis of left hip joint active 2024-07-07 ProblemAct [facility] Lateral epicondylitis active 2024-06-18 ProblemAct [facility] Encounters Encounter Type Encounter Reason Primary Diagnosis Location Date Ambulatory [facility] 08/26/2024 Ambulatory [facility] 07/08/2024 Ambulatory [facility] 07/07/2024 Ambulatory [facility] 07/07/2024 Ambulatory [facility] 07/07/2024 Ambulatory [facility] 06/19/2024 Ambulatory [facility] 06/18/2024 Ambulatory [facility] 06/18/2024 Ambulatory [facility] 06/18/2024 Ambulatory [facility] 05/15/2024 Ambulatory [facility] 05/11/2024 Ambulatory [facility] 05/11/2024 Ambulatory [facility] 05/11/2024 Ambulatory [facility] 10/10/2022 Care Team Organization Name Specialty Phone Email Start Date End Da te [facility] 2024
== END 2025-02-02 09:12 | disposition home or self-care (01) ==
LOC: HO.HOP 08:40
PROVIDERS: PCP Internal Medicine; Visit Provider Counselor Mental Health
DX: F90.2 Attention-deficit hyperactivity disorder, combined type (principal); F41.0 Panic disorder [episodic paroxysmal anxiety]; F32.A Depression, unspecified
CPT/HCPCS: 90837

== ENCOUNTER 2025-02-17 08:32 | Outpatient (AMB) | payer OTHER, SELFPAY ==
--- NOTE | 2025-02-17 08:00 | A.OFFWM_ITS ---
Intake Intake Visit Reasons: VIDEO OP Therapy Allergies Penicillins Allergy (Intermediate, Verified 12/15/24 08:34) Shortness of Breath pt states no food allergies Allergy (Unknown, Uncoded 12/15/24 08:34) Unknown [facility] Medical History (Updated 11/17/24 @ 12:28 by IDALMIS Cortes) Type 2 diabetes mellitus with retinopathy Asthma Insomnia Neuropathy Breast calcification, right Adenocarcinoma determined by biopsy of liver Diabetic retinopathy Anxiety and depression GERD (gastroesophageal reflux disease) SOLE on CPAP ADHD Hyperlipidemia HTN (hypertension) with goal to be determined Diabetes mellitus Morbid obesity Surgical History Hx of LASIK History of cholecystectomy Family History Mother Diabetes Heart problem Father Hypertension Maternal Grandmother Primary cancer of bone marrow Maternal Grandfather Prostate cancer Social History Are you a primary progressive care manager to a significant other at home: No Do you presently have visiting nurse or other home services: No Alcohol intake: never Patient Tobacco Use Status: Never used Tobacco Female Reproductive History Menstrual Age of Menarche: 13 Behavioral Health Assessment Weight Management Therapy Therapy Notes Details Subjective: Patient reports improvement in several areas of functioning. She discussed ongoing family issues that continue to be a source of emotional distress and explored how these dynamics are impacting her mood. PT also reflected on recent progress in her mental health, noting that time spent with her aunt?who recently visited?had a positive effect on her mood. Additionally, she described improvements in her work performance, both during and following her visit. Today elder her return to full-time work (she worked less hours when aunt visited). Objective: PT presented for a scheduled telehealth session. She appeared alert, oriented, and engaged throughout the session. Clinical interventions provided during session included: * Reflective listening to validate experiences and emotions. * Supportive counseling to explore family-related stressors and coping strategies. * Strength-based approach to reinforce recent improvements in functioning and mood. * Psychoeducation around stress management and emotional regulation. * Motivational interviewing techniques to support her transition back to full- time work. * Guided exploration of workplace dynamics to identify supports and stressors. Assessment/Response: * Mental status: stable, WNL. * Risk reported/identified:None Assessment & Plan Assessment & Plan (1) ADHD: Code(s): F90.9 - Attention-deficit hyperactivity disorder, unspecified type Qualifiers: Attention deficit-hyperactivity disorder type: combined inattentive- hyperactive Qualified Code(s): F90.2 - Attention-deficit hyperactivity disord er, combined type (2) Panic disorder: Code(s): F41.0 - Panic disorder [episodic paroxysmal anxiety] (3) Depression, unspecified: Code(s): F32.A - Depression, unspecified Plan Continue monitoring mood and stress levels related to family and work dynamics. Encourage continued use of coping strategies discussed in session. Continue bi-weekly psychotherapy sessions. * Next appointment scheduled for 03/03/25 at 8:00 AM via Telehealth. Telehealth Telehealth Telehealth Platform: [employer] Location of provider rendering services: other (Home office. [place], [place]) Location of patient: address on file Patient Identification confirmed using: Name, : Yes Telehealth method: video Patient verbally consented to treatment: Yes Patient verbally consented to billing insurance company: Yes Patient informed of any privacy concerns related to visit: Yes Minutes spent on Phone/Video with Pt.: 75 Coding Level of Care Code Established Pt Tele Psytx >53 mins ([id number]) Patient Type Established Diagnoses Attention deficit hyperactivity disorder (ADHD), combined type F90.2 Attention deficit-hyperactivity disorder type: combined inattentive- hyperactive Panic disorder F41.0 Depression, unspecified F32.A Time Spent (min) 75
--- OUTSIDE RECORDS SUMMARY | 2025-02-17 08:37 | XMS_ITS | Clinical Summary ---
Author Organization 175 [facility] Address [address] [place] [address] Phone Care Team Providers Care Investor Relations Associate Name Role Phone Braulio Carbajal Primary Care [...] (BMI) of 50.0 to 59.9 in adult ([facility] V24, [facility] V28) 01/18/2025 Class 3 severe obesity with serious comorbidity and body mass index (BMI) of 50.0 to 59.9 in adult ([facility] V24, [facility] V28) 12/18/2024 Class 3 severe obesity with serious comorbidity and body mass index (BMI) of 50.0 to 59.9 in adult ([facility] V24, [facility] V28) 07/20/2024 HTN (hypertension) 05/22/2024 IBS (irritable bowel syndrome) 05/22/2024 ADHD (attention deficit hype ractivity disorder), combined type 08/16/2014 Sleep apnea 06/28/2014 Morbid obesity ([facility] V24, [facility] V28) 2013 Overview (05/22/2024): BMI 52.25 on 06/05/13. Condition not found 06/05/2013 Overview (05/22/2024): Diabetes mellitus type II, uncontrolled Depression 04/05/2012 Encounters Date Type Department Care Team Description 01/18/2025 11:00 AM EDT Nutrition Bariatric Surgery [address] [phone] Class 3 severe obesity with serious comorbidity and body mass index (BMI) of 50.0 to 59.9 in adult, unspecified obesity type ([facility] V24, [facility] V28) (Primary Dx) 12/18/2024 8:00 AM EDT Nutrition Bariatric Surgery [address] [phone] Class 3 severe obesity with serious comorbidity and body mass index (BMI) of 50.0 to 59.9 in adult, unspecified obesity type ([facility] V24, [facility] V28) (Primary Dx) from Last 3 Months Immunizations Name Administration Dates Next Due Tdap Tetanus diptheria acell ular pertussis (Boostrix; Adacel) 7yo and older 12/11/2012 Surgical History Surgery Date Site/Laterality Comments CHOLECYSTECTOMY 1999 PROCEDURE: HISTORICAL CHOLECYSTECTOMY Medical History Medical History Date Comments HTN (hypertension) 2011 DX:HTN (hyper tension) DM (diabetes mellitus) ([facility] V24, [facility] V28) 2006 DX:DM (diabetes mellitus) (H CC) [...] 9:00 AM EDT Nutrition Bariatric Surgery - [place] 175 [facility] [address] [place] [phone] Prema Wallis, RD 175 [facility] [address] [place] [address] Health Maintenance Due Date Last Done Comments Breast Cancer Screening 1976 Diabetes: Annual Foot Exam 1986 Diabetes: Annual Retina Eye Exam 1986 Hepatitis B Vaccines (1 of 3 - 19+ 3-dose series) 1995 Cervical Cancer Screening: Pap Smear 1997 Colorectal Cancer Screening: Colonoscopy 07/03/2022 Hepatitis C Screening 07/03/2022 Social Influencers of Health Screening 07/03/2022 COVID-19 Vaccine ( season) 2024 07/13/2021, 09/22/2020, 09/06/2020, Additional history exists Diabetes: Annual Urine Albumin-Creatinine Ratio (uACR) 07/08/2024 02/26/2014 Depression Screening 08/05/2024 Diabetes: Blood Sugar Control Test (HGBA1C) 01/18/2025 07/20/2024, 02/26/2014 Influenza Vaccine (#1) 2025 , 05/29/2023, 07/14/2022, Additional history exists Diabetes: Annual GFR (Glomerular Filtration Rate) 07/20/2025 07/20/2024, 02/26/2014 Hypertension/CHF/CAD Annual BMP Blood Test 07/20/2025 07/20/2024, 02/26/2014 Cholesterol Screening (Lipid Panel) 07/20/2029 07/20/2024, 01/01/2023, 02/26/2014 DTaP,Tdap,and Td Vaccines (4 - Td or Tdap) 03/15/2032 03/15/2022, 12/11/2012, 08/05/2012 HIV Screening Completed 01/24/2022 HIB Vaccines Aged Out [...] 49 Years) Aged Out No longer eligible based [...] 07/20/2024 8:33 AM EST Morbid obesity ([facility] V24, [facility] V28) HEMOGLOBIN A1C Routine 07/20/2024 8:33 AM EST Morbid obesity ([facility] V24, [facility] V28) LIPID PANEL WITH REFLEX TO DIRECT LDL Routine 07/20/2024 8:33 AM EST Morbid obesity ([facility] V24, [facility] V28) HM URINE ALBUMIN CREATININE RATIO Routine 02/26/2014 from Last 3 Months or Most Recently Relevant to Health Maintenance Results * (ABNORMAL) Lipid panel with reflex to direct LDL (07/20/2024 8:33 AM EST) Cholesterol 179 0 - 200 mg/dL LAB CHEMISTRY METHOD 07/20/2024 11:24 AM [facility] Triglycerides 89 0 - 150 mg/dL LAB CHEMISTRY METHOD 07/20/2024 11:24 AM [facility] HDL 53 >=40 mg/dL LAB CHEMISTRY METHOD 07/20/2024 11:24 AM [facility] LDL Calculated 108(H) [...] ORDERABLES Fi nal Result Performing Organization Address [facility]/ZIP Co de Phone Number [facility] [address] [place] [address], [place] [phone] * (ABNORMAL) Hemoglobin A1c (07/20/2024 8:33 AM EST) Pathologist [facility] Hemoglobin A1C 7.9(H) <6.5 % LAB CHEMISTRY METHOD 07/20/2024 2:41 PM EST [facility] Mean Bld Glu Estim. 180 mg/dL LAB CHEMISTRY METHOD 07/20/2024 2:41 PM EST [facility] Blood Venous blood specimen / Unknown Venipuncture / Unknown 07/20/2024 8:33 AM EST 07/20/2024 8:33 AM EST us Gosia Stoner MD LAB BLOOD ORDERABLES Fi nal Result Performing Organization Address City/[facility]/ZIP Co de Phone Number [facility] [address] [place] [address], [place] [phone] * (ABNORMAL) Comprehensive metabolic panel (07/20/2024 8:33 AM EST) Pathologist [facility] Sodium 136 133 - 145 mmol/L LAB CHEMISTRY METHOD 07/20/2024 11:24 AM EST [facility] Potassium 4.5 3.5 - 5.5 mmol/L LAB CHEMISTRY METHOD 07/20/2024 11:24 AM EST [facility] Chloride 100 96 - 110 mmol/L LAB CHEMISTRY METHOD 07/20/2024 11:24 AM EST [facility] CO2 25 21 - 32 mmol/L LAB CHEMISTRY METHOD 07/20/2024 11:24 AM EST [facility] Anion Gap 11 3 - [...] LAB BLOOD ORDERABLES Fi nal Result [facility] [address] [place] [address], * Urine Albumin Creatinine Ratio (02/26/2014) Urine Albumin Creatinine Ratio Abstracted Historical Provider HEALTH MAINTENANCE Final Result from Last 3 Months or Most Recently Relevant to Health Maintenance Insurance [employer] Care Teams Investor Relations Associate Relationship Specialty Start Date End Date Braulio Carbajal [address] [place] [address] PCP - General Internal Medicine 03/20/22
--- OUTSIDE RECORDS SUMMARY | 2025-02-17 08:37 | XMS_ITS | Encounter Summary ---
Author Organization [employer] Address [address] [facility] [address]t [place] [address] Care Team Providers Care Manager Intern Name Role Phone Unavailable Primary Care Provider Unavailabl e Reason for Visit * Reason Comments Med Refill Encounter Details Date Type Department Care Team ([facility] st Contact Info) Description 10/19/2024 Refill [facility] [address] [place] [address] Braulio Carbajal MD [address] [place] [address] Social History Tobacco Use Types Packs/Day Years [...]
--- OUTSIDE RECORDS SUMMARY | 2025-02-17 08:38 | XMS_ITS | Clinical Summary ---
Author Organization [facility] Facility Address [address] [place] [id number] Care Team Providers Care Body Worker Name Role Phone Braulio Lopez Primary Care Provider [phone] Allergies Active Allergy Reactions Criticality Noted Date [...] Visual Foot Exam 02/01/2022 Influenza Vaccine (#1) 2025 Pneumococcal Vaccine: Peds ( 0 to 5 Years) and At-Risk Patients (6 to 49 Years) Aged Out No longer eligible b ased on patient's age to complete this topic Care Teams Body Worker Relationship Specialty Start Date End Date Braulio Lopez PCP - General Internal Medicine 02/01/22
--- OUTSIDE RECORDS SUMMARY | 2025-02-17 08:38 | XMS_ITS | Continuity of Care Document ---
Author Organization [facility] Address [address] [facility] [address] [place] [address] Phone [phone] Social History Type Date Description Comments Sex Female Sex Unknown Medical Devices Description No Information Available Encounters Description No Information Available Assessments Description No Information Available Plan of Treatment No Information Available Functional Status Description No Information Available Mental Status Description No Information Available Referrals Description No Information Available
--- OUTSIDE RECORDS SUMMARY | 2025-02-17 08:38 | XMS_ITS | Clinical Summary ---
Author Organization [facility] Address [address] [place] [address] Care Team Providers Care Director Of Employer Services Name Role Phone Braulio Lopez MD Primary Care Provider [phone] Allergies Active Allergy Reactions Criticality Noted Date [...] or Tdap) 12/11/2022 013 Influenza Vaccine (#1) 2025 Pneumococcal Vaccine Aged Out No long er eligible based on patient's age to complete this topic RSV Ped < 20 months Aged Out No longe r eligible based on patient's age to complete this topic Care Teams Director Of Employer Services Relationship Specialty Start Date End Date Braulio Lopez MD [address] [place] [phone] PCP - General Internal Medicine 03/20/22
--- OUTSIDE RECORDS SUMMARY | 2025-02-17 08:38 | XMS_ITS | Data Portability ---
Author Organization [place] - [facility],, ADRIANA LARA MD Address [address] [address] Assessment No assessment recorded. Plan of Treatment Reminders Order Date Submit Date Provider Last Modified By Organization Details Last Modified Time Details Appointments None recorded. Lab pap test, thinprep, cervical 2021 022 [email or web address] [facility], Cytopathology Service, [address] [place] [address], [address], 2 07:36:24 fecal occult blood, stool 2021 022 [email or web address] In-Office Order, Internal Use Only DO Not Attach Compendium DO Not Attach Compendium, Do Not Delete/merge, [id number] 2 11:34:07 pap test, thinprep, cervical 2020 021 [email or web address] [facility], Cytopathology Service, [address] [place] [address], [address], 1 07:14:16 fecal occult blood, stool 2020 021 [email or web address] 1 In-Office Order, Internal Use Only DO Not Attach Compendium DO Not Attach Compendium, Do Not Delete/merge, [id number] 13:58:54 pap test, thinprep, cervical 2019 020 [email or web address] [facility], Cytopathology Service, [address] [place] [address], [address], 0 08:59:10 fecal occult blood, stool 2019 020 [email or web address] In-Office Order, Internal Use Only DO Not Attach Compendium DO Not Attach Compendium, Do Not Delete/merge, [id number] 0 08:59:10 pap test, thinprep, cervical 2018 019 [facility], Cytopathology Service, [address] [place] [address], [address], 9 04:32:23 fecal occult blood, stool 2018 019 [email or web address] In-Office Order, Internal Use Only DO Not Attach Compendium DO Not Attach Compendium, Do Not Delete/merge, [id number] 9 07:31:20 pap test, thinprep, cervical 2014 015 [facility], Cytopathology Service, [address] [place] [address], [address], 5 12:26:29 chlamydia sp, culture, unspecifi ed specimen 2014 015 [facility], Cytopathology Service, [address] [place] [address], [address], 5 08:24:20 NG DNA, PCR, genital 2014 015 [facility], Cytopathology Service, [address] [place] [address], [address], 5 08:24:20 test, urine 2014 015 [email or web address] 1 In-Office Order, Internal Use Only DO Not Attach Compendium DO Not Attach Compendium, Do Not Delete/merge, [id number] 5 11:43:08 Referral None recorded. Procedures None recorded. Surgeries None recorded. Imaging MAMMO, screening , digital, bilateral 2021 022 [facility], [address], [address], [place], [address], 4 07:16:34 MAMMO, screening , digital, bilateral 2020 021 [facility] Orders, [address], [address], [place], [address], 2 07:36:18 MAMMO, screening , digital, bilateral 2019 020 [facility] (Mammography), [address] [facility], [place], [address], 1 07:41:40 MAMMO, screening , digital, bilateral 2018 019 [facility] Orders, [address], [address], [place], [address], 0 07:25:26 Medication Orders None recorded. Patient TargetsNo targets recorded. Patient Instructions Encounter Date Encounter Id Patient Instructions Last Modified By Organization Details Last Modified Time 12/07/2014 [id number] She is here for annual exam. Her latest A1C was 10, in 06/18, the [facility] [place] her to endocrinology in 06/18, [...] irregular every 4 to 6 weeks, no [id number] no for 6 weeks, check u preg, [...] in detail. Not available 12/07/2014 11:43:09 09/01/2018 [id number] She is here for annual exam. She has not been here since 2014. She was seeing [facility] but they gave up on theat and put in a Mirena 2 years ago. No menses. Her diabetes has been Bad. In 07/2016 she started a process to do bariatric surgery at [facility]. She went through all the counseling ,etc, [...] A1C was 10, in 06/18, the [facility] referred her to endocrinology in 06/18, [...] well. Advised to follow up with her seam finisher about her diabetes. She is going back [...] questions answered. Not available 09/01/2018 10:07:54 09/08/2019 [id number] She is here for annual exam, her weight is stable at 367 pounds. Her was in the ICU for 4 weeks due to sepsis, he is better now though. She had a Mirena placed 3 years ago, no menses. note form 2019: She is here for annual exam. She has not been here since 2014. She was seeing [facility] but they gave up on theat and put in a Mirena 2 years ago. No menses. Her diabetes has been Bad. In 07/2016 she started a process to do bariatric surgery at [facility]. She went through all the counseling ,etc, [...] the date of IUD insertion at [facility] for us so that we know when [...] detail. rebecca Not available 09/08/2019 15:23:23 04/04/2021 [id number] learning about healthy weight rebecca Not available 04/04/2021 13:58:54 She is here for annual exam, weight is 391 pounds, BMI is 58.6. She had a Mirena inserted 08/2016. No menses. Her mother earlier this year due to natural causes, in [place], she is still grieving. She and her are , she wanted to go to couples counseling but he would only go in [place] and they could not find a [place] speaking counselor. Note from 2019: She is [...] to do bariatric surgery at [facility]. She went through all the counseling ,etc, but things fell through the cracks. She is considering going back again. she had weighted more than 400 pounds last year, she lost some weight this past year with diet and exercise but still weighs 366 pounds today. She appears to be doing well. She and I discussed having her go back to [facility] to get back into their weight loss [...] breast. [email or web address] Not available 04/04/2021 14:00:20 04/17/2022 [id number] learning about healthy weight [email or web address] Not available [...] this year due to natural causes, in [place], she is still grieving. She and her are , she wanted to go to couples counseling but he would only go in [place] and they could not find a [place] speaking counselor. She appears to be doing [...] DO Not Attach Compendium, Do Not Delete/merge, [id number] 04/04/2021 13:36:07 09/08/19 20 09/08/2019 fecal occul t blood , stool Occult Blood negati ve Not Available In-Office Order Internal Use Only DO Not Attach Compendium DO Not Attach Compendium, Do Not Delete/merge, [id number] 09/08/2019 15:00:26 09/01/19 19 09/01/2018 fecal occul t blood , stool Occult Blood negati ve Not Available In-Office Order Internal Use Only DO Not Attach Compendium DO Not Attach Compendium, Do Not Delete/merge, [id number] 09/01/2018 09:30:38 12/08/19 15 12/07/2014 pregn marshal test, urine HCG negati ve Not Available In-Office Order Internal Use Only DO Not Attach Compendium DO Not Attach Compendium, Do Not Delete/merge, [id number] 12/07/2014 10:52:47 12/08/19 15 12/07/2014 gener [email or web address] se [id number] RESUL TS OF GEN-P ROBE APTIM A COMBO 2 ASSAY Chlam ydia: NEGAT SÁNCHEZ N. gonor rhoea e: NEGAT SÁNCHEZ GENA Camden RIOS M.D., Patho logis t (Case elect martin sy chuy d 12 09 2014) [facility]FOR MATIO N: LPS NEG SOURC E: ThinP rep Pap for CT/GC Gross Descr iptio n: ThinP rep Vial Recei joanne. Physi JAYSON Russ N /#[phone]/2 [phone] Cytop athol ogy servi carlos provi ded by [facility] at the above addre ss. Not Available [facility], Cytopathology Service [address] [place], [address], 12/09/2014 15:06:31 12/08/19 15 12/07/2014 pap, LB [id number] ThinP rep Pap, Image d: NEGAT SÁNCHEZ [...] at the above addre ss. Not Available [facility], Cytopathology Service [address] [place] [address], [address], 12/14/2014 12:26:29 09/01/19 19 09/01/2018 pap, LB [id number] ThinP rep Pap, Image d: NEGAT SÁNCHEZ [...] . LPS 5 NEG, Z12.4 Not Available [facility], Cytopathology Service [address] [place] [address], [address], 09/02/2018 17:26:28 09/08/19 20 09/08/2019 pap, LB [email or web address] ThinP rep Pap, Image d: NEGAT SÁNCHEZ [...] . LPS NEG [Z12. 4] Not Available [facility], Cytopathology Service [address] [place], [address], 09/10/2019 13:06:44 04/04/20 21 04/04/2021 PAP1C ASE [email or web address] ThinP rep Pap, Image d: NEGAT SÁNCHEZ [...] LPS 0 NEG [Z12. 4] Not Available [facility], Cytopathology Service [address] [place] [address], [address], 04/12/2021 13:55:52 04/17/2004/17/2022 PAP1C ASE [id number] ThinP rep Pap, Image d: NEGAT SÁNCHEZ [...] IUD, LPS neg. [z01. 419] Not Available [facility], Cytopathology Service [address] [place] [address], [address], 04/23/2022 08:11:00 04/17/20 22 04/17/2022 fecal occul t blood , stool Occult Blood negati ve Not Available In-Office Order Internal Use Only DO Not Attach Compendium DO Not Attach Compendium, Do Not Delete/merge, [id number] 04/17/2022 10:29:09 Result Notes None recorded. Problems Name Problem SNOMED Code Status Onset Date Resolution Date Notes Provider Name and Address Organization Details Recorded Time Candidal vulvovaginiti s 17620657 Active Not Available [facility] 3 03:01:06 Irritable bowel syndrome 19186974 Active Not Available [facility] 3 03:01:06 Obesity 089960546 Active Not Available [facility] 3 03:01:06 Oligoovulator y dysfunctional uterine bleeding 242652088 Active Adriana Lara MD [address], [place], [address] , [place] - [facility], 5 11:43:08 Uncontrolled type 2 diabetes mellitus 640781558 Active Not Available [facility] 3 03:01:06 Primary female infertility 6980330 Active Not Available [facility] 3 03:01:06 Pruritus of vulva 90014945 Active Not Available [facility] 3 03:01:06 Pain in pelvis 30109902 Active Adriana Lara MD [address], [place], [address] , [place] - [facility], 4 15:07:42 Glycosuria 51366392 Active Adriana Lara MD [address], [place], [address] , [place] - [facility], 4 15:07:42 Problem Notes None recorded. Procedures Surgical History Date Name Laterality Status Provider Name and Address Organization Details Recorded Time 04/05/20 20 Most Recent Mammogram completed Yashira Alonso [place] - [facility], 04/17/2022 10:36:13 08/05/19 00 Cholecystectomy completed Taryn Beasley [place] - [facility], 11/10/2012 13:22:27 Imaging Results None recorded. Procedure Notes None recorded. Medical Equipment None Reported. Allergies Allergen ID Allergen Name Allergen Category Reaction Reaction Severity Criticality Documentation Date Start Date Code Code System Note Provider Name and Address Organization Details Recorded Time [address]09 [facility] en[facility]me nt,medica tion rash Not available Not available 09/08/2019 91176 RxNorm Yashira Celeste [place] - [facility], 0 14:53:01 7561 Product containin g penicilli n (product) medicatio n rash Not available Not available 11/10/2012 92561 8001 SNOMED Taryn Beasley [place] - [facility], 3 13:11:08 Medications Name Sig Start Date [...] N ot Available [employer] Alexei 14 Day [place] FOR TESTING GLUCOSE LEVELS active Not Available [...] Body mass index (BMI) Body weight Systolic And Diastolic Provider Name and Address Organization Details Last Updated DateTime 09/01/2018 175.26 cm 95 /min 54.2 kg/m2 635701.6 8 g 122/65 mm[Hg] Taryn Beasley [place] - [facility], 09/01/2018 09:12:36 Date Recorded Body weight Body mass index (BMI) Body height Heart rate Systolic And Diastolic Provider Name and Address Organization Details Last Updated DateTime 09/08/2019 535365.1 2 g 55 kg/m2 173.99 cm 110 /min 132/77 mm[Hg] Yashira Orozco in [facility], 09/08/2019 14:53:44 Date Recorded Body weight Heart rate Body mass index (BMI) Body height Systolic And Diastolic Provider Name and Address Organization Details Last Updated DateTime 12/07/2014 492891.1 769 g 103 /min 54.6 kg/m2 175.26 cm 119/71 mm[Hg] Yashira Orozco in [facility], 12/07/2014 10:17:20 Date Recorded Body height Body temperature Body mass index (BMI) Body weight Heart rate Systolic And Diastolic Provider Name and Address Organization Details Last Updated DateTime 1 173.99 cm 97.2 [degF] 58.6 kg/m2 503919. 34 g 104 /min 141/75 mm[Hg] Yashira Orozco in [facility], 1 13:34:29 Date Recorded Body weight Body mass index (BMI) Body height Body temperature Heart rate Systolic And Diastolic Provider Name and Address Organization Details Last Updated DateTime 2 041667. 19 g 54.3 kg/m2 172.72 cm 98.1 [degF] 93 /min 142/79 mm[Hg] Yashira Orozco in [facility], 2 10:33:37 Social History Question Answer Notes LastModified by Organizat ion Details LastModified Time Tobacco Smoking Status Never Smoker Not Available [facility] 06/07/2020 03:19:40 What Is Your Level Of Caffeine Consumption? Occasional [id number] Information not available 06/07/2020 In The 14 [...] Type Of Diet Are You Following? REGULAR [id number] Information not available 06/07/2020 Which Illicit Or Recreational Drugs Have You Used? None [id number] Information not available 06/07/2020 Do You Reside In Or Have You Traveled To An Area Where Ebola Virus Transmission Is Active? No [id number] Information not available 06/07/2020 Education Post Graduate Information not available 11/10/2012 What Is The Highest Grade Or Level Of School You Have Completed Or The Highest Degree You Have Received? [id number] Information not available 04/04/2021 Who Is Your [...] Female Information not available 09/01/2018 Marital Status [employer] not available 11/10/2012 What Was The Date Of Your Most Recent Tobacco Screening? 04/04/2021 Information not available 04/04/2021 What Is Your Relationship Status? Information not available 04/04/2021 Are You Sexually Active? Yes [id number] Information not available 06/07/2020 How Much Tobacco Do You Smoke? No [id number] Information not available 06/07/2020 General Stress Level [...] is your level of alcohol consumption? None [id number] Information not available 06/07/2020 Do you or have you ever used smokeless tobacco? Never used smokeless tobacco [id number] Information not available 06/07/2020 Are you currently employed? 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 Never used electronic cigarettes [id number] Information not available 06/07/2020 What is your exercise level? None [id number] Information not available 06/07/2020 Mental Status Question Answer Note LastModified by Organization D etails LastModified Time Do you feel stressed (tense, restless, nervous, or anxious, or unable to sleep at night)? [id number] Information not available 04/04/2021 Family History Relationship [...] Pressure N Candidate for MyRisk panel N Depression Y Lung Disease N Defects or Inherited Disease N History of Ovarian Cancer N BRCA testing in past N Anxiety Disorder Y Arthritis N Infertility Y History of Cancer N Endometriosis N Kidney or Bladder Problems N Thyroid Problems N GI Problems Y Anemia N History of Breast Cancer N DON exposure N Osteopenia N Psychiatric Illness N Diabetes Y Headaches or Migraines Y Asthma Y Hepatitis N Heart Disease N Hypertension N [...] MD [address], [place], [address], [place] Orozco in [facility], 11/10/2012 13:43:51 Tdap 3 completed [place] Sexton in [facility], 12/11/2012 15:22:23 Influenza, split virus, quadrivalent, preservative 9 completed [place] Sexton in [facility], 09/01/2018 09:26:24 COVID-19, mRNA, LNP-S, PF, 100 mcg/0.5mL dose or 50 mcg/0.25mL dose 1 completed [place] Ramos in [facility], 04/04/2021 13:38:30 Influenza, split virus, quadrivalent, preservative 1 completed [place] Ramos in [facility], 04/17/2022 10:34:55 Past Encounters Encounter ID Performer Location Encounter Start Date Encounter Closed Date Diagnosis/Indication Diagnosis SNOMED-CT Code Diagnosis ICD10 Code Diagnosis Note [id number] MD ADRIANA Dickson MD [address] [place] [address] 11/10/2012 12:51:19 11/11/2012 08:37:47 [id number] MD ADRIANA Dickson MD [address] [place] [address] 12/11/2012 15:08:24 12/12/2012 16:10:03 [id number] MD ADRIANA Dickson MD [address] [place] [address] 08/21/2013 13:33:26 08/21/2013 15:51:36 Pain in pelvis 29023694 Acute lowe r urinary tract infection 408036908 Glycosuria 67084630 [id number] MD ADRIANA Dickson MD [address] [place] [address],[place] [address] 11/13/2013 09:28:08 11/13/2013 13:10:39 Specialized medical examination 93452704 [id number] MD ADRIANA Dickson MD [address] [place] [address],[place] [address] 12/07/2014 10:02:59 12/07/2014 13:34:46 Specialized medical examination 76052848 Venereal d isease screening 896087115 Oligoovula tory dysfunctional uterine bleeding 218568518 [id number] MD ADRIANA Dickson MD [address] [place] [address],[place] [address] 09/01/2018 09:04:26 09/01/2018 12:06:59 Specialized medical examination 38871707 Z01.419 Screening for malignant neoplasm of rectum 601199443 Z12.12 Screening mammography 24 258604 Z12.31 [id number] MD ADRIANA Dickson MD [address] [place] [address],[place] [address] 09/08/2019 14:46:50 09/08/2019 15:34:18 Specialized medical examination 17277354 Z01.419 Screening for malignant neoplasm of rectum 194570195 Z12.12 Screening mammography 24 512021 Z12.31 [id number] MD ADRIANA Dickson MD [address] [place] [address],[place] [address] 04/04/2021 13:29:45 04/04/2021 14:48:20 Specialized medical examination 20968812 Z01.419 Screening for malignant neoplasm of rectum 263063938 Z12.12 Screening mammography 24 536425 Z12.31 [id number] MD ADRIANA Dickson MD [address] [place] [address],[place] [address] 04/17/2022 10:28:03 04/17/2022 11:34:15 Specialized medical examination 21425946 Z01.419 Screening for malignant neoplasm of rectum 479353327 Z12.12 Screening mammography 24 590211 Z12.31 Health Concerns Section Related Observation LastModified by Organization Detai ls LastModified Time None Recorded Concern Status LastModified by Organization Details LastModified Time None Recorded Advance Directives Directive None Recorded Payers Insurance Date Sequence Insurance Name Policy Number Policy Fountain Covered Member ID Fountain Member ID Guarantor Name 09/03/2019 1 [facility] [id number] Glorymar López [id number] Glorymar López Colon 09/03/2019 1 [facility] [id number] Glorymar López [id number] Glorymar López Colon 09/03/2019 1 [facility] (O) [id number] Glorymar López [id number] Glorymar López Colon 04/14/2022 1 [facility] [id number] Glorymar López [id number] Glorymar López Colon 09/03/2019 1 [facility] [id number] Glory López [id number] 1 Glorymar López Colon 02/14/2023 2 [employer] [id number] Glorymar López Colon [id number] Glorymar López Colon Notes Date Note Type [...] to do bariatric surgery at [facility]. She went through all the counseling ,etc, [...] A1C was 10, in 06/18, the [facility] [place] her to endocrinology in 06/18, she was given instructions for rescue insulin doses when her sugars are high, she is doing that now, she had an A1C drawn on 11/25/14 but has not received the results yet. Adriana Lara MD [address], [place], [address], [place] - [facility], 09/01/2018 10:08:27 09/08/2019 text/html She is here for annual exam, her weight is stable at 367 pounds. Her was in the ICU for 4 weeks due to sepsis, he is better now though. She had a Mirena placed 3 years ago, no menses. note form 2019: She is here for annual exam. She has not been here since 2014. She was seeing [facility] but they gave up on theat and put in a Mirena 2 years ago. No menses. Her diabetes has been Bad. In 07/2016 she started a process to do bariatric surgery at [facility]. She went through all the counseling ,etc, but things fell through the cracks. She is considering going back again. she had weighted more than 400 pounds last year, she lost some weight this past year with diet and exercise but still weighs 366 pounds today. Adriana Lara MD [address], [place], [address], [place] - [facility], 09/08/2019 15:23:49 04/04/2021 text/html She is here for annual exam, weight is 391 pounds, BMI is 58.6. She had a Mirena inserted 08/2016. No menses. Her mother earlier this year due to natural causes, in [place], she is still grieving. She and her are , she wanted to go to couples counseling but he would only go in [place] and they could not find a [place] speaking counselor. Note from 2019: She is [...] to do bariatric surgery at [facility]. She went through all the counseling ,etc, but things fell through the cracks. She is considering going back again. she had weighted more than 400 pounds last year, she lost some weight this past year with diet and exercise but still weighs 366 pounds today. Adriana Lara MD [address], [place], [address], [place] - [facility], 04/04/2021 14:00:40 04/17/2022 text/html Her weight is [...] this year due to natural causes, in [place], she is still grieving.She and her are , she wanted to go to couples counseling but he would only go in [place] and they could not find a [place] speaking counselor. Adriana Lara MD [address], [place], [address], [place] - [facility], 04/17/2022 11:00:04 OBGyn Episode No OBEpisode recorded.
== END 2025-02-17 09:24 | disposition home or self-care (01) ==
LOC: HO.HOP 08:32
PROVIDERS: PCP Internal Medicine; Visit Provider Counselor Mental Health
DX: F90.2 Attention-deficit hyperactivity disorder, combined type (principal); F41.0 Panic disorder [episodic paroxysmal anxiety]; F32.A Depression, unspecified
CPT/HCPCS: 90837

== ENCOUNTER 2025-03-03 08:17 | Outpatient (AMB) | payer OTHER, SELFPAY ==
--- NOTE | 2025-03-03 08:05 | MHC.WMTHER ---
Intake Intake Visit Reasons: VIDEO OP Therapy Allergies Penicillins Allergy (Intermediate, Verified 03/16/25 13:12) Shortness of Breath pt states no food allergies Allergy (Unknown, Uncoded 03/16/25 13:12) Unknown PFSH Medical History Type 2 diabetes mellitus with retinopathy Asthma Insomnia Neuropathy Breast calcification, right Adenocarcinoma determined by biopsy of liver Diabetic retinopathy Anxiety and depression GERD (gastroesophageal reflux disease) SOLE on CPAP ADHD Hyperlipidemia HTN (hypertension) with goal to be determined Diabetes mellitus Morbid obesity Surgical History Hx of LASIK History of cholecystectomy Family History Mother Diabetes Heart problem Father Hypertension Maternal Grandmother Primary cancer of bone marrow Maternal Grandfather Prostate cancer Social History Are you a primary pharmacy customer care specialist to a significant other at home: No Do you presently have visiting nurse or other home services: No Alcohol intake: never Patient Tobacco Use Status: Never used Tobacco Female Reproductive History Menstrual Age of Menarche: 13 Behavioral Health Assessment Weight Management Therapy Therapy Notes Details Subjective: The patient reports continued improvement in her overall well-being, noting that taking several days off has been beneficial. She describes feeling more rested and has enjoyed spending quality time with her family. 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 Objective: The patient attended her behavioral health follow-up visit via Telehealth. During the session, we discussed the positive impact of recent time off and increased family engagement on her mood and motivation. Interventions included reinforcing the importance of self-care and maintaining a balanced schedule that incorporates both rest and meaningful activities. We reviewed her progress with behavioral activation, highlighting her success in participating in family activities and managing household responsibilities. CBT-based strategies were revisited to support ongoing mood regulation, and additional coping skills were introduced to help sustain her current improvements. The patient was encouraged to continue tracking her mood and activity levels, and we collaboratively identified new enjoyable activities to integrate into her routine. Safety and risk were assessed, with no concerns identified. Assessment/Response: The patient?s mental status remains within normal limits. She appears more engaged and motivated, with improved affect and insight into the factors supporting her progress. No acute risk was reported or identified. Assessment & Plan Assessment & Plan (1) ADHD: Code(s): F90.9 - Attention-deficit hyperactivity disorder, unspecified type Qualifiers: Attention deficit-hyperactivity disorder type: combined inattentive-hyperactive Qualified Code(s): F90.2 - Attention-deficit hyperactivity disorder, combined type (2) Panic disorder: Code(s): F41.0 - Panic disorder [episodic paroxysmal anxiety] (3) Depression, unspecified: Code(s): F32.A - Depression, unspecified Plan The patient will continue with bi-weekly behavioral health visits to reinforce positive changes and support ongoing symptom management. The next appointment is scheduled for 03/16/25 via Telehealth. Telehealth Telehealth Telehealth Platform: [employer] Location of provider rendering services: other (Home office. [place], [place]) Location of patient: address on file Patient Identification confirmed using: Name, : Yes Telehealth method: video Patient verbally consented to treatment: Yes Patient verbally consented to billing insurance company: Yes Patient informed of any privacy concerns related to visit: Yes Minutes spent on Phone/Video with Pt.: 60 Coding Level of Care Code Established Pt Tele Psytx >53 mins (31937) Patient Type Established Diagnoses Attention deficit hyperactivity disorder (ADHD), combined type F90.2 Attention deficit-hyperactivity disorder type: combined inattentive-hyperactive Panic disorder F41.0 Depression, unspecified F32.A Time Spent (min) 60
--- OUTSIDE RECORDS SUMMARY | 2025-03-03 08:19 | XMS_ITS | Clinical Summary ---
Author Organization [facility] Facility Address [address] [place] [address] Care Team Providers Care Silk Screener Name Role Phone Braulio Lopez Primary Care Provider [phone] Allergies Active Allergy Reactions Criticality Noted Date [...] age to complete this topic Care Teams Silk Screener Relationship Specialty Start Date End Date Braulio Lopez PCP - General Internal Medicine 02/01/22
--- OUTSIDE RECORDS SUMMARY | 2025-03-03 08:19 | XMS_ITS | Clinical Summary ---
Author Organization [facility] Address [address] [place] [address] Phone Care Team Providers Care Prime Broker Name Role Phone Braulio Carbajal Primary Care [...] (BMI) of 50.0 to 59.9 in adult ([facility] V24, [facility] V28) 01/18/2025 Class 3 severe obesity with serious comorbidity and body mass index (BMI) of 50.0 to 59.9 in adult ([facility] V24, [facility] V28) 12/18/2024 Class 3 severe obesity with serious comorbidity and body mass index (BMI) of 50.0 to 59.9 in adult ([facility] V24, [facility] V28) 07/20/2024 HTN (hypertension) 05/22/2024 IBS (irritable bowel syndrome) 05/22/2024 ADHD (attention deficit hype ractivity disorder), combined type 08/16/2014 Sleep apnea 06/28/2014 Morbid obesity ([facility] V24, [facility] V28) 2013 Overview (05/22/2024): BMI 52.25 on 06/05/13. Condition not found 06/05/2013 Overview (05/22/2024): Diabetes mellitus type II, uncontrolled Depression 04/05/2012 Encounters Date Type Department Care Team Description 01/18/2025 11:00 AM EDT Nutrition Bariatric Surgery [address] [phone] Class 3 severe obesity with serious comorbidity and body mass index (BMI) of 50.0 to 59.9 in adult, unspecified obesity type ([facility] V24, [facility] V28) (Primary Dx) 12/18/2024 8:00 AM EDT Nutrition Bariatric Surgery [address] [phone] Class 3 severe obesity with serious comorbidity and body mass index (BMI) of 50.0 to 59.9 in adult, unspecified obesity type ([facility] V24, [facility] V28) (Primary Dx) from Last 3 Months Immunizations Name Administration Dates Next Due Tdap Tetanus diptheria acell ular pertussis (Boostrix; Adacel) 7yo and older 12/11/2012 Surgical History Surgery Date Site/Laterality Comments CHOLECYSTECTOMY 1999 PROCEDURE: HISTORICAL CHOLECYSTECTOMY Medical History Medical History Date Comments HTN (hypertension) 2011 DX:HTN (hyper tension) DM (diabetes mellitus) ([facility] V24, [facility] V28) 2006 DX:DM (diabetes mellitus) (H [...] 9:00 AM EDT Nutrition Bariatric Surgery - [place] [address] [facility] [address] [place] [phone] [address], RD [address] [facility] [address] [place] [address] Health Maintenance Due Date Last [...] Routine 07/20/2024 8:33 AM EST Morbid obesity ([facility] V24, [facility] V28) HEMOGLOBIN A1C Routine 07/20/2024 8:33 AM EST Morbid obesity ([facility] V24, [facility] V28) LIPID PANEL WITH REFLEX TO DIRECT LDL Routine 07/20/2024 8:33 AM EST Morbid obesity ([facility] V24, [facility] V28) HM URINE ALBUMIN CREATININE RATIO Routine 02/26/2014 from Last 3 Months or Most Recently Relevant to Health Maintenance Results * (ABNORMAL) Lipid panel with reflex to direct LDL (07/20/2024 8:33 AM EST) Cholesterol 179 0 - 200 mg/dL LAB CHEMISTRY METHOD 07/20/2024 11:24 AM [facility] Triglycerides 89 0 - 150 mg/dL LAB CHEMISTRY METHOD 07/20/2024 11:24 AM [facility] HDL 53 >=40 mg/dL LAB CHEMISTRY METHOD 07/20/2024 11:24 AM [facility] LDL Calculated 108(H) 0 - 100 mg/dL LAB CHEMISTRY METHOD 07/20/2024 11:24 AM [facility] VLDL Cholesterol Francisco J 17.8 mg/dL LAB CHEMISTRY METHOD 07/20/2024 11:24 AM [facility] Non HDL Chol. (LDL+VLDL) 126 <145 mg/dL LAB CHEMISTRY METHOD 07/20/2024 11:24 AM [facility] Chol/HDL Ratio 3.4 0.0 - 4.4 LAB CHEMISTRY METHOD 07/20/2024 11:24 AM [facility] Blood Venous blood specimen / Unknown Venipuncture / Unknown 07/20/2024 8:33 AM EST 07/20/2024 8:33 AM EST us Gosia Stoner MD LAB BLOOD ORDERABLES Fi nal Result Performing Organization Address [facility]/ZIP Co de Phone Number [facility] [address] [place] [address], [place] [phone] * (ABNORMAL) Hemoglobin A1c (07/20/2024 8:33 AM EST) Pathologist [facility] Hemoglobin A1C 7.9(H) <6.5 % LAB CHEMISTRY METHOD 07/20/2024 2:41 PM EST [facility] Mean Bld Glu Estim. 180 mg/dL LAB CHEMISTRY METHOD 07/20/2024 2:41 PM EST [facility] Blood Venous blood specimen / Unknown Venipuncture / Unknown 07/20/2024 8:33 AM EST 07/20/2024 8:33 AM EST us Gosia Stoner MD LAB BLOOD ORDERABLES Fi nal Result Performing Organization Address City/[facility]/ZIP Co de Phone Number [facility] [address] [place] [address], [place] [phone] * (ABNORMAL) Comprehensive metabolic panel (07/20/2024 8:33 AM EST) Pathologist [facility] Sodium 136 133 - 145 mmol/L LAB CHEMISTRY METHOD 07/20/2024 11:24 AM EST [facility] Potassium 4.5 3.5 - 5.5 mmol/L LAB CHEMISTRY METHOD 07/20/2024 11:24 AM EST [facility] Chloride 100 96 - 110 mmol/L LAB CHEMISTRY METHOD 07/20/2024 11:24 AM EST [facility] CO2 25 21 - 32 mmol/L LAB CHEMISTRY METHOD 07/20/2024 11:24 AM EST [facility] Anion Gap 11 3 - 11 LAB CHEMISTRY METHOD 07/20/2024 11:24 AM [facility] Glucose 148(H) 70 - 100 mg/dL LAB CHEMISTRY METHOD 07/20/2024 11:24 AM [facility] BUN 15 5 - 25 mg/dL LAB CHEMISTRY METHOD 07/20/2024 11:24 AM [facility] Creatinine 0.71 0.50 - 1.10 mg/dL LAB CHEMISTRY METHOD 07/20/2024 11:24 AM [facility] eGFR 105 >=60 mL/min/1. 73m2 LAB CHEMISTRY METHOD 07/20/2024 11:24 AM [facility] Comment:Calculation based on the Chronic Kidney Disease Epidemiology Collaboration (CKD-EPI) equation refit without adjustment for race. BUN/Creatinine Ratio 21.1 LAB CHEMISTRY METHOD 07/20/2024 11:24 AM [facility] Calcium 9.7 8.5 - 10.5 mg/dL LAB CHEMISTRY METHOD 07/20/2024 11:24 AM [facility] AST (SGOT) 16 10 - 42 unit/L LAB CHEMISTRY METHOD 07/20/2024 11:24 AM [facility] ALT (SGPT) 29 10 - 60 unit/L LAB CHEMISTRY METHOD 07/20/2024 11:24 AM [facility] Alkaline Phosphatase 124(H) 42 - 121 unit/L LAB CHEMISTRY METHOD 07/20/2024 11:24 AM [facility] Total Protein 7.7 6.0 - 8.0 g/dL LAB CHEMISTRY METHOD 07/20/2024 11:24 AM [facility] Albumin 3.6 3.2 - 5.0 g/dL LAB CHEMISTRY METHOD 07/20/2024 11:24 AM [facility] Total Bilirubin 0.4 0.0 - 1.4 mg/dL LAB CHEMISTRY METHOD 07/20/2024 11:24 AM [facility] Blood Venous blood specimen / Unknown Venipuncture / Unknown 07/20/2024 8:33 AM EST 07/20/2024 8:33 AM EST us Gosia Stoner MD LAB BLOOD ORDERABLES Fi nal Result [facility] ([facility]) [facility] [address] [place] [address], * Urine Albumin Creatinine Ratio (02/26/2014) Urine Albumin Creatinine Ratio Abstracted Historical Provider HEALTH MAINTENANCE Final Result from Last 3 Months or Most Recently Relevant to Health Maintenance Insurance [employer] Care Teams Prime Broker Relationship Specialty Start Date End Date Braulio Carbajal [address] [place] [address] PCP - General Internal Medicine 03/20/22
--- OUTSIDE RECORDS SUMMARY | 2025-03-03 08:19 | XMS_ITS | Encounter Summary ---
Author Organization [email or web address] Address [address] [facility] [address] [place] [address] Care Team Providers Care Apartment Community Manager Name Role Phone Unavailable Primary Care Provider Unavailabl e Reason for Visit * Reason Comments Med Refill Encounter Details Date Type Department Care Team ([facility] st Contact Info) Description 10/19/2024 Refill [facility] [address] [place] [address] Braulio Carbajal MD [address] [place] [address] Social History Tobacco Use Types Packs/Day Years [...]
--- OUTSIDE RECORDS SUMMARY | 2025-03-03 08:20 | XMS_ITS | Continuity of Care Document ---
Author Organization [facility] Address [address] [facility] [address] [place] [address] Phone [phone] Social History Type Date Description Comments Sex Female Sex Unknown Medical Devices Description No Information Available Encounters Description No Information Available Assessments Description No Information Available Plan of Treatment No Information Available Functional Status Description No Information Available Mental Status Description No Information Available Referrals Description No Information Available
--- OUTSIDE RECORDS SUMMARY | 2025-03-03 08:20 | XMS_ITS | Clinical Summary ---
Author Organization [facility] Address [address] [place] [address] Care Team Providers Care Customer Service Technician Name Role Phone Braulio Lopez MD Primary Care Provider [phone] Allergies Active Allergy Reactions Criticality Noted Date [...] age to complete this topic Care Teams Customer Service Technician Relationship Specialty Start Date End Date Braulio Lopez MD [address] [place] [phone] PCP - General Internal Medicine 03/20/22
== END 2025-03-03 09:30 | disposition home or self-care (01) ==
LOC: HO.HOP 08:17
PROVIDERS: PCP Internal Medicine; Visit Provider Counselor Mental Health
DX: F90.2 Attention-deficit hyperactivity disorder, combined type (principal); F41.0 Panic disorder [episodic paroxysmal anxiety]; F32.A Depression, unspecified
CPT/HCPCS: 90837

== ENCOUNTER 2025-03-16 08:55 | Outpatient (AMB) | payer OTHER, SELFPAY ==
--- NOTE | 2025-03-16 08:54 | MHC.WMTHER ---
Intake Intake Visit Reasons: VIDEO OP Therapy Allergies Penicillins Allergy (Intermediate, Verified 12/15/24 08:34) Shortness of Breath pt states no food allergies Allergy (Unknown, Uncoded 12/15/24 08:34) Unknown [facility] Medical History (Updated 11/17/24 @ 12:28 by IDALMIS Cortes) Type 2 diabetes mellitus with retinopathy Asthma Insomnia Neuropathy Breast calcification, right Adenocarcinoma determined by biopsy of liver Diabetic retinopathy Anxiety and depression GERD (gastroesophageal reflux disease) SOLE on CPAP ADHD Hyperlipidemia HTN (hypertension) with goal to be determined Diabetes mellitus Morbid obesity Surgical History Hx of LASIK History of cholecystectomy Family History Mother Diabetes Heart problem Father Hypertension Maternal Grandmother Primary cancer of bone marrow Maternal Grandfather Prostate cancer Social History Are you a primary career technical education instructor to a significant other at home: No Do you presently have visiting nurse or other home services: No Alcohol intake: never Patient Tobacco Use Status: Never used Tobacco Female Reproductive History Menstrual Age of Menarche: 13 Behavioral Health Assessment Weight Management Therapy Therapy Notes Details Subjective: Patient reports increased stress related to her 's immigration application, which is being submitted today. 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 Despite the stress, she reports improvement in other areas?specifically improved sleep and eating habits, steady weight loss, and ongoing preparation for weight-loss surgery. Objective: Patient presents for a follow-up session via Telehealth. She was on time, appropriately dressed, and cooperative throughout the session. CBT techniques were used to address current stressors and cognitive distortions. Cognitive restructuring was initiated to challenge inl-sx-vuldwep thinking regarding her emotional bandwidth and perceived lack of patience. Psychoeducation provided around stress response and emotional fatigue. Behavioral activation strategies explored to create time for self-care and prevent burnout. Patient engaged in identifying automatic negative thoughts and began developing alternative, more balanced responses. Assessment/Response: Mental status: stressed but denies depression. Good functioning at work. Risk reported/identified: None. Assessment & Plan Assessment & Plan (1) ADHD: Code(s): F90.9 - Attention-deficit hyperactivity disorder, unspecified type Qualifiers: Attention deficit-hyperactivity disorder type: combined inattentive-hyperactive Qualified Code(s): F90.2 - Attention-deficit hyperactivity disorder, combined type (2) Panic disorder: Code(s): F41.0 - Panic disorder [episodic paroxysmal anxiety] (3) Depression, unspecified: Code(s): F32.A - Depression, unspecified Plan Continue CBT interventions focusing on stress management, cognitive restructuring, and behavioral activation Monitor for signs of burnout related to work demands Explore additional coping skills for emotional regulation outside of work. Continue bi-weekly Telehealth sessions Next jase: 03/30/25 at 9am telehealth. Telehealth Telehealth Telehealth Platform: [employer] Location of provider rendering services: other (Home office. [place], [place]) Location of patient: address on file Patient Identification confirmed using: Name, : Yes Telehealth method: video Patient verbally consented to treatment: Yes Patient verbally consented to billing insurance company: Yes Patient informed of any privacy concerns related to visit: Yes Minutes spent on Phone/Video with Pt.: 60 Coding Level of Care Code Established Pt Tele Psytx >53 mins (77397) Patient Type Established Diagnoses Attention deficit hyperactivity disorder (ADHD), combined type F90.2 Attention deficit-hyperactivity disorder type: combined inattentive-hyperactive Panic disorder F41.0 Depression, unspecified F32.A Time Spent (min) 60 Comment Start time: 8:50- End time:9:50am
--- OUTSIDE RECORDS SUMMARY | 2025-03-16 09:20 | XMS_ITS | Clinical Summary ---
Author Organization [facility] Address [address] [place] [address] Care Team Providers Care Junior Database Administrator Name Role Phone Braulio Lopez MD Primary Care Provider [phone] Allergies Active Allergy Reactions Criticality Noted Date [...] age to complete this topic Care Teams Junior Database Administrator Relationship Specialty Start Date End Date Braulio Lopez MD [address] [place] [phone] PCP - General Internal Medicine 03/20/22
--- OUTSIDE RECORDS SUMMARY | 2025-03-16 09:20 | XMS_ITS | Clinical Summary ---
Author Organization [facility] Facility Address [address] [place] [address] Care Team Providers Care Science Interpreter Name Role Phone Braulio Lopez Primary Care Provider [phone] [phone] Allergies Active Allergy Reactions Criticality Noted Date [...] age to complete this topic Care Teams Science Interpreter Relationship Specialty Start Date End Date Braulio Lopez PCP - General Internal Medicine 02/01/22
--- OUTSIDE RECORDS SUMMARY | 2025-03-16 09:20 | XMS_ITS | Encounter Summary ---
Author Organization [employer] Address [address] [facility] [address] [place] [address] Care Team Providers Care Game Artist Name Role Phone Unavailable Primary Care Provider Unavailabl e Reason for Visit * Reason Comments Med Refill Encounter Details Date Type Department Care Team ([facility] st Contact Info) Description 10/19/2024 Refill [facility] [address] [place] [address] Braulio Carbajal MD [address] [place] [address] Social History Tobacco Use Types Packs/Day Years [...]
--- OUTSIDE RECORDS SUMMARY | 2025-03-16 09:20 | XMS_ITS | Clinical Summary ---
Author Organization [facility] Address [address] [place] [address] Phone Care Team Providers Care Rn Family Practice Name Role Phone Braulio Carbajal Primary Care [...] (BMI) of 50.0 to 59.9 in adult ([facility] V24, [facility] V28) 01/18/2025 Class 3 severe obesity with serious comorbidity and body mass index (BMI) of 50.0 to 59.9 in adult ([facility] V24, [facility] V28) 12/18/2024 Class 3 severe obesity with serious comorbidity and body mass index (BMI) of 50.0 to 59.9 in adult ([facility] V24, [facility] V28) 07/20/2024 HTN (hypertension) 05/22/2024 IBS (irritable bowel syndrome) 05/22/2024 ADHD (attention deficit hype ractivity disorder), combined type 08/16/2014 Sleep apnea 06/28/2014 Morbid obesity ([facility] V24, [facility] V28) 2013 Overview (05/22/2024): BMI 52.25 on 06/05/13. Condition not found 06/05/2013 Overview (05/22/2024): Diabetes mellitus type II, uncontrolled Depression 04/05/2012 Encounters Date Type Department Care Team Description 01/18/2025 11:00 AM EDT Nutrition Bariatric Surgery [address] [phone] Class 3 severe obesity with serious comorbidity and body mass index (BMI) of 50.0 to 59.9 in adult, unspecified obesity type ([facility] V24, [facility] V28) (Primary Dx) 12/18/2024 8:00 AM EDT Nutrition Bariatric Surgery [address] [phone] Class 3 severe obesity with serious comorbidity and body mass index (BMI) of 50.0 to 59.9 in adult, unspecified obesity type ([facility] V24, [facility] V28) (Primary Dx) from Last 3 Months Immunizations Name Administration Dates Next Due Tdap Tetanus diptheria acell ular pertussis (Boostrix; Adacel) 7yo and older 12/11/2012 Surgical History Surgery Date Site/Laterality Comments CHOLECYSTECTOMY 1999 PROCEDURE: HISTORICAL CHOLECYSTECTOMY Medical History Medical History Date Comments HTN (hypertension) 2011 DX:HTN (hyper tension) DM (diabetes mellitus) ([facility] V24, [facility] V28) 2006 DX:DM (diabetes mellitus) (H [...] 9:00 AM EDT Nutrition Bariatric Surgery - [place] [address] [facility] [address] [place] [phone] Prema Wallis, RD 175 [facility] [address] [place] [phone] Health Maintenance Due Date Last [...] Routine 07/20/2024 8:33 AM EST Morbid obesity ([facility] V24, [facility] V28) HEMOGLOBIN A1C Routine 07/20/2024 8:33 AM EST Morbid obesity ([facility] V24, [facility] V28) LIPID PANEL WITH REFLEX TO DIRECT LDL Routine 07/20/2024 8:33 AM EST Morbid obesity ([facility] V24, [facility] V28) HM URINE ALBUMIN CREATININE RATIO Routine 02/26/2014 from Last 3 Months or Most Recently Relevant to Health Maintenance Results * (ABNORMAL) Lipid panel with reflex to direct LDL (07/20/2024 8:33 AM EST) Cholesterol 179 0 - 200 mg/dL LAB CHEMISTRY METHOD 07/20/2024 11:24 AM [facility] Triglycerides 89 0 - 150 mg/dL LAB CHEMISTRY METHOD 07/20/2024 11:24 AM [facility] HDL 53 >=40 mg/dL LAB CHEMISTRY METHOD 07/20/2024 11:24 AM [facility] LDL Calculated 108(H) 0 - 100 mg/dL LAB CHEMISTRY METHOD 07/20/2024 11:24 AM [facility] VLDL Cholesterol Francisco [...] ORDERABLES Fi nal Result Performing Organization Address [facility]/ZIP Co de Phone Number [facility] [address] [place] [address], [place] [phone] * (ABNORMAL) Hemoglobin A1c (07/20/2024 8:33 AM EST) Pathologist [facility] Hemoglobin A1C 7.9(H) <6.5 % LAB CHEMISTRY METHOD 07/20/2024 2:41 PM EST [facility] Mean Bld Glu Estim. 180 mg/dL LAB CHEMISTRY METHOD 07/20/2024 2:41 PM EST [facility] Blood Venous blood specimen / Unknown Venipuncture / Unknown 07/20/2024 8:33 AM EST 07/20/2024 8:33 AM EST us Gosia Stoner MD LAB BLOOD ORDERABLES Fi nal Result Performing Organization Address City/[facility]/ZIP Co de Phone Number [facility] [address] [place] [address], [place] [phone] * (ABNORMAL) Comprehensive metabolic panel (07/20/2024 8:33 AM EST) Pathologist [facility] Sodium 136 133 - 145 mmol/L LAB [...] [facility] Comment:Calculation based on the Chronic [...] 11:24 AM [facility] Total Protein 7.7 6.0 - 8.0 g/dL LAB CHEMISTRY METHOD 07/20/2024 11:24 AM [facility] Albumin 3.6 3.2 [...] MD LAB BLOOD ORDERABLES Fi nal Result [facility] [address] [place] [address], * Urine Albumin Creatinine Ratio (02/26/2014) Urine Albumin Creatinine Ratio Abstracted Historical Provider HEALTH MAINTENANCE Final Result from Last 3 Months or Most Recently Relevant to Health Maintenance Insurance [employer] Care Teams Rn Family Practice Relationship Specialty Start Date End Date Braulio Carbajal [address] [place] [address] PCP - General Internal Medicine 03/20/22
--- OUTSIDE RECORDS SUMMARY | 2025-03-16 09:21 | XMS_ITS | Continuity of Care Document ---
Author Organization [facility] Address [address] [facility] [address] [place] [address] Phone [phone] Social History Type Date Description Comments Sex Female Sex Unknown Medical Devices Description No Information Available Encounters Description No Information Available Assessments Description No Information Available Plan of Treatment No Information Available Functional Status Description No Information Available Mental Status Description No Information Available Referrals Description No Information Available
== END 2025-03-16 10:16 | disposition home or self-care (01) ==
LOC: HO.HOP 08:55
PROVIDERS: PCP Internal Medicine; Visit Provider Counselor Mental Health
DX: F90.2 Attention-deficit hyperactivity disorder, combined type (principal); F41.0 Panic disorder [episodic paroxysmal anxiety]; F32.A Depression, unspecified
CPT/HCPCS: 90837

== ENCOUNTER → 2025-03-16 08:55 | Outpatient (BNVA) | payer OTHER, SELFPAY | PROVIDERS: PCP Internal Medicine; Visit Provider Counselor Mental Health | DX: F90.2 Attention-deficit hyperactivity disorder, combined type (principal); F41.0 Panic disorder [episodic paroxysmal anxiety]; F32.A Depression, unspecified; E11.319 Type 2 diabetes mellitus with unspecified diabetic retinopathy without macular edema; E66.01 Morbid (severe) obesity due to excess calories; E78.5 Hyperlipidemia, unspecified | CPT/HCPCS: 82947 ==

== ENCOUNTER 2025-03-16 13:04 | Outpatient (AMB) | payer OTHER, SELFPAY ==
[2025-03-16 13:11] VITALS: BP 100/60; PULSE 97; O2SAT 98; BMI 48.8
--- NOTE | 2025-03-16 13:11 | A.OFFVIS_ITS ---
Vital Signs 03/16/25 13:11 Height 5 ft 9 in Weight 330 lb 11.094 oz BMI 48.8 BP 100/60 Blood Pressure Location Rt brachial Position Sitting Pulse 97 Pulse Source Pulse Oximeter Pulse Oximetry (%) 98 Oxygen Delivery Method Room Air Intake Visit Reasons: T2DM Intake Note: Patient present today to follow up on Type 2 Diabetes Mellitus. Last Diabetic Eye exam: 11/02/24[facility] Last Podiatry Visit: Does not see a Websphere Administrator Random Glucose: 190 mg/dL Most Rencent HgA1C: 7.6%, 03/02/2025 PCP Hearing Screener Required: No Accompanied by: Self / Same As Patient Allergies Penicillins Allergy (Intermediate, Verified 03/16/25 13:12) Shortness of Breath pt states no food allergies Allergy (Unknown, Uncoded 03/16/25 13:12) Unknown Medication List - Last Reconciled 03/16/25 by IDALMIS Cortes albuterol sulfate 90 mcg/actuation 2 puffs inhalation QID PRN atorvastatin (Lipitor) 20 mg PO BEDTIME blood sugar diagnostic (FreeStyle Lite Strips) 1 strip miscellaneous BID blood-glucose sensor (FreeStyle Alexei 3 Plus Sensor device) Apply 1 new sensor every 15 days as directed to monitor blood glucose continuously. bupropion HCl XL 300 mg PO DAILY cholecalciferol (vitamin D3) 125 mcg PO DAILY empagliflozin (Jardiance) 25 mg PO QAM fluoxetine 20 mg PO DAILY gabapentin 300 mg PO TID lisdexamfetamine (Vyvanse) 70 mg PO DAILY lisinopril 10 mg PO DAILY lorazepam 1 mg PO DAILY PRN melatonin 10 mg PO BEDTIME PRN minoxidil 2.5 mg PO DAILY thiamine HCl (vitamin B1) 100 mg PO DAILY tirzepatide (Mounjaro) 15 mg (0.5 mL) subcut QWEEK vitamin A palmitate 10,000 units PO DAILY HPI Comments Details: This is a 49-year-old female with a past medical history of type 2 diabetes, hyperlipidemia, morbid obesity, hypertension, spinal stenosis, ADHD, SOLE on CPAP , anxiety with depression and asthma presenting for diabetic management. She was diagnosed with type 2 diabetes in 2003. Current medications: Mounjaro 15 mg weekly, Tresiba 15 units every evening, Jardiance 10 mg daily. She is only taking Tresiba half the days of the week. Past medications: Metformin discontinued due to GI side effects. Hemoglobin A1c 7.6% 03/02/2025. She's lost 14 pounds since her last visit. She is in the weight management program working towards bariatric surgery. Reviewed CGM data for the past 14 days CGM active 71% Average glucose 158 G SD 7.1% Glucose variability 16.1% Very high 0% High 19% Target range 81% Low 0% She has rare hyperglycemia postprandially. Complications: She has retinopathy and neuropathy. She receives intravitreal injections in both eyes every 8 weeks. Denies hypoglycemic episodes. Denies symptoms of hyperglycemia. Hyperlipidemia was previously treated with 40 mg of atorvastatin. She had no side effects, but she no longer has the prescription because she did not have a primary care provider for awhile. Recent LDL is 112. ROS: Constitutional: No unexplained weight loss, fever, chills or night sweats. Eyes: No vision changes, blurry vision, double vision, eye pain Respiratory: No shortness of breath, cough or sputum production. Cardiovascular: No chest pain, palpitations or pedal edema Gastrointestinal: No anorexia, nausea, vomiting or diarrhea. No abdominal pain Genitourinary: No dysuria, hematuria, urinary frequency. Skin: No open wounds Endocrine: No cold or heat intolerance. No polyuria or polydipsia. Physical exam: Constitutional: Alert, in no distress. Head: Normocephalic. Neck: Supple, Full range of motion. No lymphadenopathy. Respiratory: Clear to auscultation. Cardiovascular: S1 S2 regular. No murmurs. Extremities: Warm and well perfused. No clubbing, cyanosis or edema. Psychiatric: Normal mood and affect Right foot: Warm and well perfused. No clubbing, cyanosis or edema. Intact DP pulse. Very mildly decreased vibratory sensation. Intact sensation to monofilament. No open wounds. Left foot: Warm and well perfused. No clubbing, cyanosis or edema. Intact DP pulse. Very mildly decreased vibratory sensation. Intact sensation to monofilament. No open wounds. PFSH Medical History Type 2 diabetes mellitus with retinopathy Asthma Insomnia Neuropathy Breast calcification, right Adenocarcinoma determined by biopsy of liver Diabetic retinopathy Anxiety and depression GERD (gastroesophageal reflux disease) SOLE on CPAP ADHD Hyperlipidemia HTN (hypertension) with goal to be determined Diabetes mellitus Morbid obesity Surgical History Hx of LASIK History of cholecystectomy Family History Mother Diabetes Heart problem Father Hypertension Maternal Grandmother Primary cancer of bone marrow Maternal Grandfather Prostate cancer Social History Are you a primary healthcare project manager to a significant other at home: No Do you presently have visiting nurse or other home services: No Alcohol intake: never Patient Tobacco Use Status: Never used Tobacco Female Reproductive History Menstrual Age of Menarche: 13 Physical Exam Vital Signs: Last Vital Signs Pulse 97 03/16/25 13:11 BP 100/60 03/16/25 13:11 Pulse Ox 98 03/16/25 13:11 Oxygen Delivery Method Room Air 03/16/25 13:11 BMI result Body Mass Index 48.8 Office Procedures Glucose Monitoring Details Details: see [facility] [address] - Glucose monitoring, continuous-physician I&R Procedure code (CPT) selection complete Results Reviewed Results Reviewed: Laboratory Last Values Glucose (Clinic) 190 mg/dL (60-115) H 03/16/25 13:25 Laboratory Tests 01/01/23 01/14/23 11/03/24 10:20 11:01 07:45 Plt Count 349 Creatinine 0.70 Estimated GFR > 60 Hgb A1c (Clinic) AST 17 ALT 18 Triglycerides 89 Cholesterol 108 LDL Cholesterol, Calc 53 HDL Cholesterol 38 L Vitamin B12 505 TSH 1.39 Urine Creatinine 113.22 Urine Microalbumin 27.0 Microalb/Creat Ratio 23.8 11/03/24 08:25 Plt Count Creatinine Estimated GFR Hgb A1c (Clinic) 8.9 H AST ALT Triglycerides Cholesterol LDL Cholesterol, Calc HDL Cholesterol Vitamin B12 TSH Urine Creatinine Urine Microalbumin Microalb/Creat Ratio External labs 03/02/25 reviewed on patient's phone Cr 0.77 GFR 95 HDL 48 TRIG 111 LDL 112 Assessment & Plan Assessment & Plan (1) Type 2 diabetes mellitus with retinopathy: Code(s): E11.319 - Type 2 diabetes mellitus with unspecified diabetic retinopathy without macular edema Category: Medical Qualifiers: Diabetic retinopathy severity: with unspecified retinopathy severity Diabetes mellitus macular edema: macular edema presence unspecified Laterality: bilateral Diabetes mellitus terminal gauger insulin use: without snf use Qualified Code(s): E11.319 - Type 2 diabetes mellitus with unspecified diabetic retinopathy without macular edema (2) Morbid obesity: Code(s): E66.01 - Morbid (severe) obesity due to excess calories Category: Medical (3) Hyperlipidemia: Code(s): E78.5 - Hyperlipidemia, unspecified Category: Medical Plan This is a 49-year-old female with type 2 diabetes with improving glycemic control. Stop Tresiba insulin. Continue Mounjaro 15 mg once weekly. Increase Jardiance to 25 mg daily. Diabetic diet reviewed. She is in the weight management program. Reviewed treatment of hypoglycemia. She has glucose tablets. Advised patient that if her CGM alerts to a low sugar and she is asymptomatic she can check a fingerstick to confirm. Refills sent on test strips. Complications of diabetes reviewed with the patient. Please return to the lab in 10-14 days to check your kidney function. Restart atorvastatin 20 mg at bedtime. Reviewed potential side effects. Mediterranean diet recommended. Please have fasting lab work done the week before the next appointment. Follow up in 3 months for type 2 diabetes. Orders: Orders Creatinine Today E11.9 - Type 2 diabetes mellitus without complications Lipid Panel 3 Months E11.319 - Type 2 diabetes mellitus with unspecified diabetic retinopathy without macular edema, E78.5 - Hyperlipidemia, unspecified Aspartate Amino Transferase 3 Months E11.319 - Type 2 diabetes mellitus with unspecified diabetic retinopathy without macular edema Alanine Aminotransferase 3 Months E11.319 - Type 2 diabetes mellitus with unspecified diabetic retinopathy without macular edema Hemoglobin A1c 3 Months E11.319 - Type 2 diabetes mellitus with unspecified diabetic retinopathy without macular edema, R73.9 - Hyperglycemia, unspecified AMB Glucose Monitoring Today E11.9 - Type 2 diabetes mellitus without complications Medications: New atorvastatin (Lipitor) 20 mg PO BEDTIME 90 tabs 0RF blood sugar diagnostic (FreeStyle Lite Strips) 1 strip miscellaneous BID 100 strips 5RF E11.319 - Type 2 diabetes mellitus with unspecified diabetic retinopathy without macular edema empagliflozin (Jardiance) 25 mg PO QAM 90 tabs 0RF Discontinued empagliflozin (Jardiance) Discontinued Reason: Doctor's Order 10 mg PO DAILY 90 tabs 1RF insulin degludec (Tresiba FlexTouch U-200 insulin) Discontinued Reason: Doctor's Order 15 units (0.075 mL) subcut DAILY 30 days 2.25 mL 5RF Patient Instructions: Stop Tresiba insulin Continue Mounjaro 15 mg once weekly Increase Jardiance to 25 mg daily Please return to the lab in 10-14 days to check your kidney function. Please have fasting labwork done the week before the next appointment. If you experience low blood sugar, treat this by eating a chewable fruit candy like skittles or jelly beans (about 8 pieces), 4 ounces (1/2 cup) of fruit juice (not diet), 1 tablespoon of honey or 4 glucose tablets. If your blood sugar is under 50, take double the amount of one of the above. Recheck your blood sugar in 15 minutes. Coding Level of Care Code Est Pt Level 4 (40998) Diagnoses Type 2 diabetes mellitus with retinopathy of both eyes, without long-term current use of insulin, macular edema presence unspecified, unspecified retinopathy severity E11.319 Diabetic retinopathy severity: with unspecified retinopathy severity Diabetes mellitus macular edema: macular edema presence unspecified Laterality: bilateral Diabetes mellitus terminal gauger insulin use: without terminal gauger use Morbid obesity E66.01 Hyperlipidemia E78.5 CPT Codes Details - CPT: 42378 - Glucose monitoring, continuous-physician I&R ([id number])
[2025-03-16 13:29] LABS: Glucose, Whole Blood 190 mg/dL (60-115)
== END 2025-03-16 14:02 | disposition home or self-care (01) ==
PROVIDERS: PCP Family Medicine; Visit Provider Physician Assistant Medical
DX: E11.319 Type 2 diabetes mellitus with unspecified diabetic retinopathy without macular edema (principal); E66.01 Morbid (severe) obesity due to excess calories; E78.5 Hyperlipidemia, unspecified

== ENCOUNTER 2025-03-30 09:06 | Outpatient (AMB) | payer OTHER, SELFPAY ==
--- NOTE | 2025-03-30 09:00 | MHC.WMTHER ---
Intake Intake Visit Reasons: VIDEO OP Therapy Allergies Penicillins Allergy (Intermediate, Verified 03/16/25 13:12) Shortness of Breath pt states no food allergies Allergy (Unknown, Uncoded 03/16/25 13:12) Unknown PFSH Medical History Type 2 diabetes mellitus with retinopathy Asthma Insomnia Neuropathy Breast calcification, right Adenocarcinoma determined by biopsy of liver Diabetic retinopathy Anxiety and depression GERD (gastroesophageal reflux disease) SOLE on CPAP ADHD Hyperlipidemia HTN (hypertension) with goal to be determined Diabetes mellitus Morbid obesity Surgical History Hx of LASIK History of cholecystectomy Family History Mother Diabetes Heart problem Father Hypertension Maternal Grandmother Primary cancer of bone marrow Maternal Grandfather Prostate cancer Social History Are you a primary client care representative to a significant other at home: No Do you presently have visiting nurse or other home services: No Alcohol intake: never Patient Tobacco Use Status: Never used Tobacco Female Reproductive History Menstrual Age of Menarche: 13 Behavioral Health Assessment Weight Management Therapy Therapy Notes Details Subjective: The patient reports feeling very sensitive and worried recently, particularly experiencing guilt following an important meeting related to finalizing her 's immigration process. She describes this event as emotionally taxing and continues to ruminate on her role and the outcome. Despite these concerns, the patient expresses excitement about completing the necessary steps for her upcoming weight-loss surgery. She also reports increased fatigue, noting difficulty engaging in activities or accomplishing tasks on her days off, which she finds frustrating and discouraging. Objective: The patient attended a follow-up session via Telehealth, presenting as alert and appropriately engaged. During the session, the patient processed recent events involving her , with a focus on the emotional impact of the immigration meeting. Interventions included reflective listening and validation of her emotional experience. The session addressed avoidance behaviors, with the patient encouraged to identify specific situations where avoidance occurs and to explore underlying triggers. 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 Together, we explored and began to develop a behavioral activation plan, identifying small, manageable activities the patient can incorporate into her routine to combat fatigue and increase motivation. The patient was also encouraged to monitor her energy levels and mood, and to practice self-compassion. Supportive counseling was provided throughout, and the patient was encouraged to utilize grounding techniques during periods of heightened worry. Assessment/Response: Mental status: The patient is alert and oriented, with mood described as anxious and affect congruent. Thought processes are coherent and logical. No evidence of psychosis or cognitive impairment. Risk reported/identified: None. Assessment & Plan Assessment & Plan (1) ADHD: Code(s): F90.9 - Attention-deficit hyperactivity disorder, unspecified type Qualifiers: Attention deficit-hyperactivity disorder type: combined inattentive-hyperactive Qualified Code(s): F90.2 - Attention-deficit hyperactivity disorder, combined type (2) Panic disorder: Code(s): F41.0 - Panic disorder [episodic paroxysmal anxiety] (3) Depression, unspecified: Code(s): F32.A - Depression, unspecified Plan Continue bi-weekly psychotherapy sessions with a focus on behavioral activation, self-care strategies, and ongoing support for both personal and professional challenges. Patient will implement the behavioral activation plan and monitor progress. Telehealth Telehealth Telehealth Platform: InMyShow Location of provider rendering services: other (Home office. [place], [place]) Location of patient: address on file Patient Identification confirmed using: Name, : Yes Telehealth method: video Patient verbally consented to treatment: Yes Patient verbally consented to billing insurance company: Yes Patient informed of any privacy concerns related to visit: Yes Minutes spent on Phone/Video with Pt.: 60 [place] [address] Tele Psytx >53 mins Patient Type Established Diagnoses Attention deficit hyperactivity disorder (ADHD), combined type F90.2 Attention deficit-hyperactivity disorder type: combined inattentive-hyperactive Panic disorder F41.0 Depression, unspecified F32.A Time Spent (min) 60
--- OUTSIDE RECORDS SUMMARY | 2025-03-30 09:27 | XMS_ITS | Encounter Summary ---
Author Organization [employer] Address [address] [place] [id number] Care Team Providers Care Vocational Rehabilitation Consultant Name Role Phone Braulio Carbajal MD Primary Care Prov ider Reason for Visit * Reason Onset Date Comments Med Refill 02/28/2023 Encounter Details Date Type Department Care Team (Late st Contact Info) Description 02/28/[address] [facility] [address] [place] [address] Braulio Carbajal MD [address] [place] [address] Social History Tobacco Use Types Packs/Day Years [...] on filedocumented in this encounter Care Teams Vocational Rehabilitation Consultant Relationship Specialty Start Date End Date Braulio Carbajal MD [address] [place] [address] PCP - General Internal Medicine 12/14/19 04/28/24 documented as of this encounter
--- OUTSIDE RECORDS SUMMARY | 2025-03-30 09:27 | XMS_ITS | Encounter Summary ---
Author Organization [employer] Address [address] [facility] [address] [place] [address] Care Team Providers Care Tack Picker Name Role Phone Braulio Carbajal MD Primary Care Prov ider Reason for Visit * Reason Onset Date Comments Med Refill 02/28/2023 Encounter Details Date Type Department Care Team (Late st Contact Info) Description 02/28/2023 Refill [facility] [address] [place] [address] Braulio Carbajal MD [address] [place] [id number] Mixed hyperlipidemia; Primary hypertension; Type 2 diabetes [...] (CMS/HCC) documented in this encounter Care Teams Tack Picker Relationship Specialty Start Date End Date Braulio Carbajal MD [address] [place] [address] PCP - General Internal Medicine 12/14/19 04/28/24 documented as of this encounter
--- OUTSIDE RECORDS SUMMARY | 2025-03-30 09:27 | XMS_ITS | Encounter Summary ---
Author Organization [facility] [employer] Address [address] [facility] [address] [place] [address] Care Team Providers Care Player Development Manager Name Role Phone Unavailable Primary Care Provider Unavailabl e Reason for Visit * Reason Comments Med Refill Encounter Details Date Type Department Care Team ([facility] st Contact Info) Description 10/13/2024 Refill [facility] [address] [place] [address] Braulio Carbajal MD [address] [place] [address] Primary hypertension Social History Tobacco Use Types [...]
--- OUTSIDE RECORDS SUMMARY | 2025-03-30 09:27 | XMS_ITS | Encounter Summary ---
Author Organization [employer] Address [address] [place] [id number] Care Team Providers Care Optical Fabricator Name Role Phone Braulio Carbajal MD Primary Care Prov ider Reason for Visit * Reason Comments Med Refill Encounter Details Date Type Department Care Team (Late st Contact Info) Description 10/29/2022 Refill [facility] [address] [place], [place] [phone] Braulio Carbajal MD [address] [place] [address] Social History Tobacco Use Types Packs/Day Years [...] on filedocumented in this encounter Care Teams Optical Fabricator Relationship Specialty Start Date End Date Braulio Carbajal MD [address] [place] [address] PCP - General Internal Medicine 12/14/19 04/28/24 documented as of this encounter
--- OUTSIDE RECORDS SUMMARY | 2025-03-30 09:27 | XMS_ITS | Encounter Summary ---
Author Organization [employer] Address [address] [place] [id number] Care Team Providers Care Bank Compliance Officer Name Role Phone Braulio Carbajal MD Primary Care Prov ider Reason for Visit * Reason Comments Med Refill Encounter Details Date Type Department Care Team (Late st Contact Info) Description 10/29/2022 Refill [facility] [address] [place], [place] [phone] Braulio Carbajal MD [address] [place] [address] Social History Tobacco Use Types Packs/Day Years [...] on filedocumented in this encounter Care Teams Bank Compliance Officer Relationship Specialty Start Date End Date Braulio Carbajal MD [address] [place] [address] PCP - General Internal Medicine 12/14/19 04/28/24 documented as of this encounter
--- OUTSIDE RECORDS SUMMARY | 2025-03-30 09:27 | XMS_ITS | Encounter Summary ---
Author Organization [employer] Address [address] [place] [address] Care Team Providers Care Photoengraving Helper Name Role Phone Braulio Carbajal MD Primary Care Prov ider Encounter Details Date Type Department Care Team (Late st Contact Info) Description 08/17/2022 Orders Only [facility] [address] [place] [address] Braulio Carbajal MD [address] [place] [address] Type 2 diabetes mellitus without complication, unspecified whether care home insulin use ([facility]) (Primary Dx) Social History [...] unspecified whether care home insulin use (CMS/HCC) HEMATOXYLIN AND EOSIN STAIN Routine 01/09/2023 8:38 AM EDT Type 2 diabetes mellitus without complication, unspecified whether press tender long goods insulin use (CMS/HCC) COVID-19 ID NOW (DUPREE) Routine 01/08/2023 2:18 PM EDT Type 2 diabetes mellitus without complication, unspecified whether press tender long goods insulin use (CMS/HCC) TYPE AND SCREEN Routine 01/01/2023 10:22 AM EDT Type 2 diabetes mellitus without complication, unspecified whether care home insulin use (CMS/HCC) VITAMIN D,25-OH,TOTAL,IA Routine 01/01/2023 10:20 AM EDT Type 2 diabetes mellitus without complication, unspecified whether press tender long goods insulin use (CMS/HCC) TSH W/REFLEX TO FT4 Routine 01/01/2023 1 0:20 AM EDT Type 2 diabetes mellitus without complication, unspecified whether care home insulin use (CMS/HCC) CBC WITH AUTO DIFFERENTIAL [...] 2 diabetes mellitus without complication, unspecified whether press tender long goods insulin use (CMS/HCC) PROTHROMBIN TIME-INR Routine 01/01/2023 10:20 AM EDT Type 2 diabetes mellitus without complication, unspecified whether press tender long goods insulin use (CMS/HCC) C-REACTIVE PROTEIN Routine 01/01/2023 10 :20 AM EDT Type 2 diabetes mellitus without complication, unspecified whether press tender long goods insulin use (CMS/HCC) VITAMIN B1 Routine 01/01/2023 10:20 AM EDT Type 2 diabetes mellitus without complication, unspecified whether care home insulin use (CMS/HCC) PTH, INTACT WITHOUT CALCIUM Routine 01/01/2023 10:20 AM EDT Type 2 diabetes mellitus without complication, unspecified whether care home insulin use (CMS/HCC) HEMOGLOBIN A1C Routine 01/01/2023 10:20 AM EDT Type 2 diabetes mellitus without complication, unspecified whether press tender long goods insulin use (CMS/HCC) FERRITIN Routine 01/01/2023 10:20 AM EDT Type 2 diabetes mellitus without complication, unspecified whether press tender long goods insulin use (CMS/HCC) VITAMIN B12 Routine 01/01/2023 10:20 AM EDT Type 2 diabetes mellitus without complication, unspecified whether care home insulin use (CMS/HCC) LIPID PANEL, STANDARD Routine 01/01/2023 10:20 AM EDT Type 2 diabetes mellitus without complication, unspecified whether press tender long goods insulin use (CMS/HCC) COMPREHENSIVE METABOLIC PANEL Routine 01/01/2023 10:20 AM EDT Type 2 diabetes mellitus without complication, unspecified whether care home insulin use (CMS/HCC) GLUCOSE, WHOLE BLOOD Routine 11/13/2022 1:31 PM EDT Type 2 diabetes mellitus without complication, unspecified whether care home insulin use (CMS/HCC) HEMOGLOBIN A1C Routine 11/13/2022 1:14 PM EDT Type 2 diabetes mellitus without complication, unspecified whether press tender long goods insulin use (CMS/HCC) documented in this encounter Results * CA 19-9 (01/09/2023 10:38 AM EDT) CA 19-9 14 <34 U/mL [facility] Comment:The CA19-9 result ma y be increased on average 14% - 20%,relative to results previously obtained with this methoddue to a recent calibrator adjustment made in Octobery the reagent instructor physical. In the low range for thisassay (< [...] or absence of disease.THIS TEST WAS PERFORMED AT:[employer] [place] [id number] LONDONO MD 01/09/2023 10:3 8 AM EDT 01/09/2023 10:42 AM EDT [facility] External Provider LAB BLO OD ORDERABLES Final Result [facility] [address] [place] [phone] * Hematoxylin and Eosin Stain (01/09/2023 8:38 AM EDT) 01/09/2023 8:38 AM EDT 01/09/2023 8:53 AM EDT Narrative [facility] - 01/14/2023 1:28 PM EDT ----- ------- Name: Julia Lpóez Age/Sex: 47/F : 1975 [facility]#: [id number] Unit#: [id number] Attend Dr: Darci Sanders MD Re01/09/23 Status: [facility] Location: [facility] Disch: ----- ------- SPEC : [id number] RECD: 01/09/23 STATUS: HERMINIO CROCKER NUM: [id number] PUSHPA: 01/09/[address] [facility] DR: Darci Sanders MD ENTERED: 01/09/23 SP TYPE: Surgical OTHR DR: Braulio Carbajal MD ORDERED: HE Stain/8, Frozen Section/2, Gross Micro L4/2, Gross Micro L5/2, TP W/FS, IHC/4, Add. immunos/2, CK7, Haley-3, H. pylori/2, Ki-67/3 Diagnosis A. Liver, left lobe, mass, biopsy: Bile duct adenoma; negative for malignancy. B. Liver, left lobe, nodule, biopsy: Bile duct adenoma; negative for malignancy. C. Stomach, body, biopsy: Oxyntic mucosa with mild chronic inactive inflammation; no Helicobacter organisms seen. D. Stomach, antrum, biopsy: Antral-type and oxyntic mucosa with mild chronic inactive inflammation; no Helicobacter organisms seen. Clinical History Pre-Op Dx: Morbid (severe) obesity due to excess calories Post-Op Dx: Liver mass, adenocarcinoma Microscopic Description A-D. Microscopic sections reviewed. Sections from the liver lesions have fibrous tissue and hepatic parenchyma with focal proliferations of small somewhat irregularly- shaped glands comprised of benign-appearing epithelium. By immunohistochemistry, the lesional cells are reactive with CK7 and non-immunoreactive with GATA3; the proliferation index is quite low by Ki-67 immunostaining. Immunostain for H.pylori is nonreactive in C and D. Material Received A: Mass left liver lobe B: Left liver lobe nodule C: Gastric body D: Gastric antrum Gross Description Received in 4 parts. Part A: Received in formalin labeled Mass left liver lobe is a glistening, semitranslucent, rubbery, camp-pink, irregular tissue fragment measuring 0.35 x 0.25 x 0.2 cm. A touch prep is made and the specimen is submitted in toto for frozen section. The frozen section residue is submitted labeled AFS. The intraoperative diagnosis is reported to Dr. Sanders as Neoplastic tissue, favor well- differentiated adenocarcinoma by Dr. Lebron. CONTINUED ON NEXT PAGE ----- ------- Name: Julia López Age/Sex: 47/F : 1975 Unit#: [id number] Attend Dr: Darci Sanders MD Re01/09/23 Status: [facility] Location: [facility] Disch: ----- ------- SPEC : [id number] RECD: 01/09/23 STATUS: HERMINIO OBI NUM: [id number] PUSHPA: 01/09/[address] [facility] DR: Darci Sanders MD ENTERED: 01/09/23 SP TYPE: Surgical OTHR DR: Braulio Carbajal MD ORDERED: HE Stain/8, Frozen Section/2, Gross Micro L4/2, Gross Micro L5/2, TP W/FS, IHC/4, Add. immunos/2, CK7, Haley-3, H. pylori/2, Ki-67/3 Gross Description (Continued) Part B: Received in formalin labeled left liver lobe nodule is a 0.8 x 0.5 x 0.25 cm irregular portion of camp-white and camp-brown hepatic parenchyma with a 0.5 x 0.3 x 0.2 cm rubbery, pearly, camp, white-pink nodular focus suspicious for tumor. The specimen is bisected and entirely submitted in cassettes B1 and B2. Part C: Received in formalin labeled gastric body are 3 glistening, semitranslucent, rubbery, camp-pink irregular tissue fragments each measuring 0.3 cm in greatest dimension which are submitted in toto in a single cassette labeled C. Part D: Received in formalin labeled gastric antrum are 3 glistening, semitranslucent, soft, camp-pink irregular [...] Immunostains for Ki67 on A1 and B2. Immunostains for CK7 and GATA3 on B2. Copies To: Braulio Carbajal MD [address] [place] [id number] Darci Sanders MD [address] [place] [address], [address] [place] [address] ----- ------- Signed (signature on file) Shaun Lebron MD 01/14/23 1328 ----- ------- END OF REPORT [facility] External Provider LAB BLO OD ORDERABLES Final Result [facility] [address] [place] [address] [phone] * COVID-19 ID NOW (Zairge) (01/08/2023 2:18 PM EDT) IDNOW SERIAL# [id number] [facility] COVID-19 TEST Negative Negative [facility] COVID-19 NOTE See Note [facility] Comment: Results are for the identification of SARS-CoV2 RNA. TheSARS-CoV2 RNA is generally detectable in respiratory samplesduring the acute phase of infection. Positive results areindicative of the presence of SARS-CoV-2 RNA; clinicalcorrelation with patient history and other diagnosticinformation is necessary to determine patient infectionstatus. Positive results do not rule out bacterial infectionor co- infection with other viruses.Testing facilities within the [facility] and [facility] are required to report all positive results [...] use by authorized laboratories.Testing performed on the General Specific ID NOW utilizing NAAT. 01/08/2023 2:18 PM EDT 01/08/2023 2:32 PM EDT [facility] Exter nal Provider LAB MOLECULAR DIAGNOSTICS ORDERABLES Final Result Performing Organization Address City/[facility] de Phone Number [facility] [address] [place] [address] [phone] * Type and screen (01/01/2023 10:22 AM EDT) Pathologist [facility] Blood Type OP [facility] Antibody Screen NEGATIVE [facility] 01/01/2023 10:2 2 AM EDT 01/01/2023 11:04 AM EDT Narrative [facility] - 01/01/2023 11:55 AM EDT Spec expiration changed by JAMESON on 01/01/23Reason: For SURGERYNURSING:Call Blood Bank (ext. [phone]) to band patient on admission.Type and Screen in effect until 2300 on 01/09/23Witnessed by EDLEMIRA [facility] External Provider LAB BLO OD BANK TEST ORDERABLES Final Result Performing Organization Address [facility] de Phone Number [facility] [address] [place] [address] [phone] * (ABNORMAL) Vitamin A (01/01/2023 10:20 AM EDT) Pathologist [facility] Vitamin A (Retinol) 32(A) 38 - 98 mcg/dL [facility] Comment:Vitamin supplementat ion within 24 hours prior toblood draw may affect the accuracy of the results.This test was developed and its analytical performancecharacteristics have been determined by [employer], [place]. It hasnot been cleared or approved by the U.S. Food and DrugAdministration. This assay has been validated pursuantto the CLIA regulations and is used for clinicalpurposes.THIS TEST WAS PERFORMED AT:[employer] [place] [id number] BARRY MD,PHD 01/01/2023 10:2 0 AM EDT 01/01/2023 10:20 AM EDT [facility] External Provider LAB BLO OD ORDERABLES Final Result Performing Organization Address [facility] Co de Phone Number [facility] [address] [place] [phone] * (ABNORMAL) Vitamin B1 (01/01/2023 10:20 AM EDT) Vitamin B1 <6(A) 8 - 30 nmol/L [facility] Comment:Vitamin supplementat ion within 24 hours prior toblood draw may affect the accuracy of the results.This test was developed and its analytical performancecharacteristics have been determined by [employer] [facility] [place]. It hasnot been cleared or approved by the .S. Food and DrugAdministration. This assay has been validated pursuantto the CLIA regulations and is used for clinicalpurposes.THIS TEST WAS PERFORMED AT:[employer] [address] [id number] BARRY MD,PHD 01/01/2023 10:2 0 AM EDT 01/01/2023 10:20 AM EDT [facility] External Provider LAB BLO OD ORDERABLES Final Result Performing Organization Address [facility] de Phone Number [facility] [address] [place] [phone] * Zinc (01/01/2023 10:20 AM EDT) Zinc 84 60 - 130 mcg/dL [facility] Comment:This test was develo ped and its analytical performancecharacteristics have been determined by [employer] [place]. It hasnot been cleared or approved by the U.S. Food and DrugAdministration. This assay has been validated pursuantto the CLIA regulations and is used for clinicalpurposes.THIS TEST WAS PERFORMED AT:[employer] [place] [id number] BARRY MD,PHD 01/01/2023 10:2 0 AM EDT 01/01/2023 10:20 AM EDT [facility] External Provider LAB BLO OD ORDERABLES Final Result Performing Organization Address [facility] Co de Phone Number [facility] [address] [place] [address] [phone] * PTH, Intact Without Calcium (01/01/2023 10:20 AM EDT) PTHI 32 16 - 77 pg/mL [facility] Comment:Interpretive Guide I ntact PTH Calcium -------Normal Parathyroid Normal NormalHypoparathyroidism Low or Low Normal LowHyperparathyroidism Primary Normal or High High Secondary High Normal or Low Tertiary High HighNon-Parathyroid Hypercalcemia Low or Low Normal High Calcium (PTHI) 9.9 8.6 - 10.2 mg/dL [facility] Comment:THIS TEST WAS PERFOR MED AT:[facility] [place] [id number] LONDONO MD 01/01/2023 10:2 0 AM EDT 01/01/2023 10:20 AM EDT [facility] External Provider LAB BLO OD ORDERABLES Final Result Performing Organization Address [facility] Co de Phone Number [facility] [address] [place] [address] [phone] * Lipid Panel, Standard (01/01/2023 10:20 AM EDT) Triglycerides 73 mg/dL [facility] Comment:Desirable Triglyceri de: less than 150 mg/dLBorderline High Triglyceride 150-199 mg/dLHigh Triglyceride: 200-499 mg/dLVery High Triglyceride: greater than or equal to 5OO mg/dL Cholesterol 101 mg/dL [facility] Comment:Desirable Cholestero l: less than 200 mg/dLBorderline High Cholesterol: 200-239 mg/dLHigh Cholesterol: greater than 239 mg/dL LDL Cholesterol Calculated 53 mg/dl [facility] Comment:Desirable LDL: less than 100 mg/dLNear Optimal/Above Optimal LDL: 110- 129 mg/dLBorderline High LDL: 130-159 mg/dLHigh LDL: 160-189 mg/dLVery High LDL: greater than or equal to 190 mg/dL HDL Cholesterol 34 mg/dL [facility] Comment:Desirable HDL: great er than 40 mg/dL Note: This HDL assay may give artificially low results in patients with liver disease. 01/01/2023 10:2 0 AM EDT 01/01/2023 10:20 AM EDT [facility] External Provider LAB BLO OD ORDERABLES Final Result Performing Organization Address City/[facility]/ZIP Co de Phone Number [facility] [address] [place] [phone] * (ABNORMAL) C-reactive Protein (01/01/2023 10:20 AM EDT) C Reactive Protein 2.54(H) < or = 0.50 mg/dL [facility] 01/01/2023 10:2 0 AM EDT 01/01/2023 10:20 AM EDT [facility] External Provider LAB BLO OD ORDERABLES Final Result Performing Organization Address City/[facility]/ZIP Co de Phone Number [facility] [address] [place] [address] [phone] * (ABNORMAL) Comprehensive Metabolic Panel (01/01/2023 10:20 AM EDT) Sodium 136 135 - 145 mmol/L [facility] Potassium 4.7 3.3 - 5.1 mmol/L [facility] Chloride 99 96 - 108 mmol/L [facility] Carbon Dioxide 28 22 - 29 mmol/L [facility] Anion Gap 14 12 - 20 [facility] Urea Nitrogen (BUN) 13 9 - 16 mg/dL [facility] Creatinine, Serum 0.80 0.5 - 1.4 mg/dL [facility] Creatinine Clr Calc Pharmacy 134.3 [facility] Comment:Provided height and weight: 175.26 cm,142.882 kg.eGFR (calculated from the MDRD study equation) and eCrCl(calculated from the Cockcroft-Gault equation) are based ondifferent parameters and may not yield comparable results.If eCrCl result is absurd, please check patient'sheight/weight. Estimated Glomerular Filt Rate >60 [facility] Comment:NOTE: For -Am erican individuals, multiply the result by 1.210.Chronic Kidney Disease: Estimated GFR < 60 mL/min/1.35o9Hsnipw Kidney Disease: Estimated GFR < 15 mL/min/1.73m2 Glucose 141(H) 60 - 115 mg/dL [facility] Calcium 10.0 8.4 - 10.2 mg/dL [facility] Bilirubin, Total 0.9 0.0 - 1.0 mg/dL [facility] Aspartate Amino Transferase 18 5 - 31 U/L [facility] Alanine Aminotransferase 14 0 - 31 U/L [facility] Total Protein 7.9 6.5 - 8.0 g/dL [facility] Albumin Level 4.0 3.5 - 5.0 g/dL [facility] Alkaline Phosphatase 85 39 - 117 U/L [facility] 01/01/2023 10:2 0 AM EDT 01/01/2023 10:20 AM EDT [facility] External Provider LAB BLO OD ORDERABLES Final Result [facility] [address] [place] [address] [phone] * TSH W/Reflex to FT4 (01/01/2023 10:20 AM EDT) TSH reflex Free T4 1.39 0.32 - 4.0 uIU/mL [facility] 01/01/2023 10:2 0 AM EDT 01/01/2023 10:20 AM EDT [facility] External Provider LAB BLO OD ORDERABLES Final Result Performing Organization Address City/[facility]/ZIP Co de Phone Number [facility] [address] [place] [phone] * Vitamin D, 25-Hydroxy, Total, Immunoassay (01/01/2023 10:20 AM EDT) Vitamin D 25-OH Total 23.8 >30 ng/mL [facility] Comment:Health Based Referen ce Values*< 20 ng/mL Evnhuieyz10-13 ng/mL Insufficient> 30 ng/mL Sufficient*Nay HASTINGS. N [...] OD ORDERABLES Final Result Performing Organization Address [facility] Co de Phone Number [facility] [address] [place] [phone] * Vitamin B12 (01/01/2023 10:20 AM EDT) Vitamin B12 505 200 - 900 pg/mL [facility] Comment:NORMAL 200-900 PG/ML INDETERMINATE 160-199 PG/ML DEFICIENT < 160 PG/ML 01/01/2023 10:2 0 AM EDT 01/01/2023 10:20 AM EDT [facility] External Provider LAB BLO OD ORDERABLES Final Result Performing Organization Address [facility] Co de Phone Number [facility] [address] [place] [phone] * Ferritin (01/01/2023 10:20 AM EDT) Ferritin 192 10 - 250 ng/mL [facility] 01/01/2023 10:2 0 AM EDT 01/01/2023 10:20 AM EDT [facility] External Provider LAB BLO OD ORDERABLES Final Result Performing Organization Address [facility] de Phone Number [facility] [address] [place] [phone] * Hemoglobin A1c (01/01/2023 10:20 AM EDT) Hemoglobin A1c 6.8 % [facility] Comment:Hemoglobin A1C Refer ence Range Adults: 4.8 - 6.0 % Non diabetic: < 6.0 % Goal: < 7.0 %Additional Action Suggested: > 8.0 %Note: Hemoglobin A1c results are invalid for patients with abnormal amounts of HbF. Blood transfusions may impact the HbA1c concentration in the patient sample. Estimated Average Glucose 148 mg/dL [facility] Comment:eAG = Estimated ave rage glucose which is %A1C expressed asaverage glucose, using the formula of the Q3F-XqvstmqOwzugwc Glucose study (ADAG), Diabetes Care, Vol.31,#8,2007 01/01/2023 10:2 0 AM EDT 01/01/2023 10:20 AM EDT [facility] External Provider LAB BLO OD ORDERABLES Final Result Performing Organization Address [facility] de Phone Number [facility] [address] [place] [phone] * APTT (01/01/2023 10:20 AM EDT) Partial Thromboplastin Time 35.0 26.0 - 36.4 SEC [facility] 01/01/2023 10:2 0 AM EDT 01/01/2023 10:20 AM EDT [facility] External Provider LAB BLO OD ORDERABLES Final Result Performing Organization Address [facility] Phone Number [facility] [address] [place] [phone] * Prothrombin Time-INR (01/01/2023 10:20 AM EDT) [facility] Prothrombin Time 12.9 10.0 - 13.1 SEC [facility] INTERNATIONAL NORM RATIO 1.1 0.9 - 1.1 [facility] Comment:INTERNATIONAL NORMAL IZED RATIO (INR) [...] OD ORDERABLES Final Result Performing Organization Address [facility] de Phone Number [facility] [address] [place] [phone] * (ABNORMAL) CBC auto differential (01/01/2023 10:20 AM EDT) White Blood Count 11.3(H) 4.8 - 10.8 X10*3/uL [facility] Red Blood Count 5.09 4.20 - 5.50 X10*6/uL [facility] Hemoglobin 13.8 12.0 - 16.0 g/dl [facility] Hematocrit 44.1 37.0 - 47.0 % [facility] Mean Corpuscular Volume 86.6 80.0 - 98.0 fL [facility] Mean Corpuscular Hemoglobin 27.1 27.0 - 33.0 pg [facility] Mean Corpuscular HGB Conc 31.3 31.0 - 35.0 g/dl [facility] Red Cell Distribution Width 14.3 11.0 - 16.0 % [facility] Platelet Count 376 160 - 400 X10*3/uL [facility] Mean Platelet Volume 9.2(L) 9.4 - 12.3 fL [facility] Neutrophils Percent Auto 66.0 45 - 73 % [facility] Imm Gran Pct Auto 0.8(H) 0.0 - 0.4 % [facility] Lymphocytes Percent Auto 25.1 20 - 40 % [facility] Monocytes Percent Auto 5.5 2 - 11 % [facility] Eosinophils Percent Auto 2.0 0 - 4 % [facility] Basophils Percent Auto 0.6 0 - 2 % [facility] NRBC Pct Auto 0.0 0.0 - 0.2 /100WBC [facility] Neutrophils Absolute Auto 7.4 2.0 - 8.3 x10*3/uL [facility] Imm Gran Abs Auto 0.09(H) 0.00 - 0.03 X10*3/uL [facility] Lymphocytes Absolute Auto 2.8 1.2 - 4.9 X10*3/uL [facility] Monocytes Absolute Auto 0.6 0.1 - 1.2 X10*3/uL [facility] Eosinophils Absolute Auto 0.2 0.0 - 0.4 X10*3/uL [facility] Basophils Absolute Auto 0.1 0.0 - 0.2 X10*3/uL [facility] NRBC Abs Auto 0.000 0.0 - 0.012 X10*3/uL [facility] 01/01/2023 10:2 0 AM EDT 01/01/2023 10:20 AM EDT [facility] External Provider LAB BLO OD ORDERABLES Final Result Performing Organization Address [facility] de Phone Number [facility] [address] [place] [phone] * (ABNORMAL) Glucose, Whole Blood (11/13/2022 1:31 PM EDT) Glucose, Whole Blood 196(H) 60 - 115 mg/dL [facility] Comment:METER #: [id number] 5Testing performed in the Endocrinology Department [address] , [address], [facility]. 11/13/2022 1:31 PM EDT 11/13/2022 1:34 PM EDT [facility] External Provider LAB BLO OD ORDERABLES Final Result Performing Organization Address [facility] de Phone Number [facility] [address] [place] [phone] * Hemoglobin A1c (11/13/2022 1:14 PM EDT) Hemoglobin A1c 7.4 % [facility] Comment:Hemoglobin A1C Refer ence Range Adults: 4.8 - 6.0 % Non diabetic: < 6.0 % Goal: < 7.0 %Additional Action Suggested: > 8.0 %Note: Hemoglobin A1c results are invalid for patients with abnormal amounts of HbF. Blood transfusions may impact the HbA1c concentration in the patient sample. Estimated Average Glucose 166 mg/dL [facility] Comment:eAG = Estimated ave rage glucose which is %A1C expressed asaverage glucose, using the formula of the J7W-XskltdvGyyxiaa Glucose study (ADAG), Diabetes Care, Vol.31,#8,Mar. 2007 11/13/2022 1:14 PM EDT 11/13/2022 1:14 PM EDT [facility] External Provider LAB BLO OD ORDERABLES Final Result [facility] [address] [place] [address] [phone] documented in this encounter Visit Diagnoses Diagnosis Type 2 diabetes mellitus without complication, unspecified whether press tender long goods insulin use (CMS/[facility])- Primary documented in this encounter Care Teams Photoengraving Helper Relationship Specialty Start Date End Date Braulio Carbajal MD [address] [place] [phone] PCP - General Internal Medicine 12/14/19 04/28/24 documented as of this encounter
--- OUTSIDE RECORDS SUMMARY | 2025-03-30 09:27 | XMS_ITS | Clinical Summary ---
Author Organization [facility] Address [address] [place] [address] Care Team Providers Care Normalizer Name Role Phone Braulio Lopez MD Primary Care Provider [phone] Allergies Active Allergy Reactions Criticality Noted Date [...] age to complete this topic Care Teams Normalizer Relationship Specialty Start Date End Date Braulio Lopez MD [address] [place] [phone] PCP - General Internal Medicine 03/20/22
--- OUTSIDE RECORDS SUMMARY | 2025-03-30 09:27 | XMS_ITS | Clinical Summary ---
Author Organization [facility] Address [address] [place] [address] Phone Care Team Providers Care Branch Lending Manager Name Role Phone Braulio Carbajal Primary Care [...] (BMI) of 50.0 to 59.9 in adult ([facility] V24, [facility] V28) 01/18/2025 Class 3 severe obesity with serious comorbidity and body mass index (BMI) of 50.0 to 59.9 in adult ([facility] V24, [facility] V28) 12/18/2024 Class 3 severe obesity with serious comorbidity and body mass index (BMI) of 50.0 to 59.9 in adult ([facility] V24, [facility] V28) 07/20/2024 HTN (hypertension) 05/22/2024 IBS (irritable bowel syndrome) 05/22/2024 ADHD (attention deficit hype ractivity disorder), combined type 08/16/2014 Sleep apnea 06/28/2014 Morbid obesity ([facility] V24, [facility] V28) 2013 Overview (05/22/2024): BMI 52.25 on 06/05/13. Condition not found 06/05/2013 Overview (05/22/2024): Diabetes mellitus type II, uncontrolled Depression 04/05/2012 Encounters Date Type Department Care Team Description 01/18/2025 11:00 AM EDT Nutrition Bariatric Surgery - [address] [phone] Class 3 severe obesity with serious comorbidity and body mass index (BMI) of 50.0 to 59.9 in adult, unspecified obesity type ([facility] V24, [facility] V28) (Primary Dx) from Last 3 Months Immunizations Name Administration Dates Next Due Tdap Tetanus diptheria acell ular pertussis (Boostrix; Adacel) 7yo and older 12/11/2012 Surgical History Surgery Date Site/Laterality Comments CHOLECYSTECTOMY 1999 PROCEDURE: HISTORICAL CHOLECYSTECTOMY Medical History Medical History Date Comments HTN (hypertension) 2011 DX:HTN (hyper tension) DM (diabetes mellitus) ([facility] V24, [facility] V28) 2006 DX:DM (diabetes mellitus) (H CC) [...] Care Team (Late st Contact Info) Description 03/31/2025 1:30 PM EDT Office Visit Bariatric Surgery [facility] [address] [phone] Gosia Stoner MD [address] [place] [address] 04/12/2025 9:00 AM EDT Nutrition Bariatric Surgery - [place] [address] [phone] Prema Wallis, MECHE [address] [phone] Health Maintenance Due Date Last Done Comments [...] Routine 07/20/2024 8:33 AM EST Morbid obesity ([facility] V24, [facility] V28) HEMOGLOBIN A1C Routine 07/20/2024 8:33 AM EST Morbid obesity ([facility] V24, [facility] V28) LIPID PANEL WITH REFLEX TO DIRECT LDL Routine 07/20/2024 8:33 AM EST Morbid obesity ([facility] V24, [facility] V28) HM URINE ALBUMIN CREATININE RATIO [...] MD LAB BLOOD ORDERABLES Fi nal Result [facility] [address] [place] [address], [place] [phone] * (ABNORMAL) Hemoglobin A1c (07/20/2024 8:33 AM EST) Hemoglobin A1C 7.9(H) <6.5 % LAB CHEMISTRY METHOD 07/20/2024 2:41 PM EST [facility] Mean Bld Glu Estim. 180 mg/dL LAB CHEMISTRY METHOD 07/20/2024 2:41 PM EST [facility] Blood Venous blood specimen / Unknown Venipuncture / Unknown 07/20/2024 8:33 AM EST 07/20/2024 8:33 AM EST us Gosia Stoner MD LAB BLOOD ORDERABLES Fi nal Result Performing Organization Address [facility]/ZIP Co de Phone Number [facility] [address] [place] [address], [place] [phone] * (ABNORMAL) Comprehensive metabolic panel (07/20/2024 8:33 AM EST) Pathologist [facility] Sodium 136 133 - 145 mmol/L LAB CHEMISTRY METHOD 07/20/2024 11:24 AM [facility] Potassium 4.5 3.5 - 5.5 mmol/L LAB CHEMISTRY METHOD 07/20/2024 11:24 AM [facility] Chloride 100 96 - 110 mmol/L LAB CHEMISTRY METHOD 07/20/2024 11:24 AM EST [facility] CO2 25 21 - 32 mmol/L LAB CHEMISTRY METHOD 07/20/2024 11:24 AM [facility] Anion Gap 11 [...] LAB BLOOD ORDERABLES Fi nal Result [facility] [address] [place] [address], * Urine Albumin Creatinine Ratio (02/26/2014) Urine Albumin Creatinine Ratio Abstracted Historical Provider HEALTH MAINTENANCE Final Result from Last 3 Months or Most Recently Relevant to Health Maintenance Insurance [employer] Care Teams Branch Lending Manager Relationship Specialty Start Date End Date Braulio Carbajal [address] [place] [address] PCP - General Internal Medicine 03/20/22
--- OUTSIDE RECORDS SUMMARY | 2025-03-30 09:27 | XMS_ITS | Clinical Summary ---
Author Organization [facility] Address [address] [place] [address] Care Team Providers Care Residential Program Worker Name Role Phone Braulio Lopez Primary Care Provider [phone] Allergies Active Allergy Reactions Criticality Noted Date [...] age to complete this topic Care Teams Residential Program Worker Relationship Specialty Start Date End Date Braulio Lopez PCP - General Internal Medicine 02/01/22
--- OUTSIDE RECORDS SUMMARY | 2025-03-30 09:27 | XMS_ITS | Continuity of Care Document ---
Author Organization [facility] Address [address] [facility] [address] [place] [address] Phone [phone] Social History Type Date Description Comments Sex Female Sex Unknown Medical Devices Description No Information Available Encounters Description No Information Available Assessments Description No Information Available Plan of Treatment No Information Available Functional Status Description No Information Available Mental Status Description No Information Available Referrals Description No Information Available
--- OUTSIDE RECORDS SUMMARY | 2025-03-30 09:27 | XMS_ITS | Encounter Summary ---
Author Organization [facility] Address [address] [facility] [address] [place] [address] Care Team Providers Care Dormitory Supervisor Name Role Phone Unavailable Primary Care Provider Unavailabl e Reason for Visit * Reason Comments Med Refill Encounter Details Date Type Department Care Team ([facility] st Contact Info) Description 10/19/2024 Refill [facility] [address] [place] [address] Braulio Carbajal MD [address] [place] [phone] Social History Tobacco Use Types Packs/Day Years [...]
--- OUTSIDE RECORDS SUMMARY | 2025-03-30 09:27 | XMS_ITS | Clinical Summary ---
Author Organization [facility] Address [address] [place] [address] [address]t [place] [address] Care Team Providers Care Plow And Boring Machine Tender Name Role Phone Unavailable Primary [...] 2 diabetes mellitus without complication, unspecified whether long-term insulin use ([facility]) Inject 1.5 mg under [...] the past 12 months, has t he [employer], gas, oil or water company threatened to [...] 98 08/17/2022 1:59 PM EST Temperature 37 C (98.6 F) 08/17/2022 1:59 PM EST Respiratory Rate 20 [...] 2024 07/13/2021, 09/22/2020, 09/06/2020, Additional history exists SDOH Screening 05/02/2024 05/02/2023 Influenza Vaccine (#1) 2025 , 07/14/2022, 07/13/2021, Additional history exists Mammogram 05/25/2026 05/25/2024, 04/06, 04/09/2023 Zoster Vaccines [...] Years) and At-Risk Patients (6 to 49) Years Aged Out No longer eligible based on [...] 2 diabetes mellitus without complication, unspecified whether bed bug exterminator insulin use (CMS/HCC) ZZZ HISTORICAL HEPATITIS C [...] PM EDT Narrative 05/25/2024 4:12 PM EDT [facility] [address] [place], [place] [address] Mammography Report Signed Patient: Julia López MR#: [id number] : 1975 Acct:[id number] Age/Sex: 48 / F ADM Date: 05/25/24 Loc: HO.MAMMO Attending Dr: Ryan Prescott MD Ordering Physician: Ryan Prescott MD Results: 2Ben ign Findings Date of Service: 05/25/24 Follow Up: 1 Year From Orig ina Mammogram Procedure(s): MM tomosynthesis diagnostic BI Accession Number(s): [id number] cc: Braulio Carbajal MD; Ryan Prescott MD [...] 05/25/24 1609 DD/ 1300 TD/TT: 05/25/24 1350 Electric Deicer Assembler: Procedure Note Donotuseinterpreter, Image - 05/25/2024 [facility] [address] [place] [address] Mammography Report Signed Patient: Julia LópezMR#: [id number] : 1975Acct:[id number] Age/Sex: 48 / FADM Date: 05/25/24 Loc: HO.MAMMO Attending Dr: Ryan Prescott MD Ordering Physician: Ryan Prescott MDResults: 2Ben ign Findings Date of Service: 05/25/24Follow Up: 1 Year From Orig inal Mammogram Procedure(s): MM tomosynthesis diagnostic BI Accession Number(s): [id number] cc: Braulio Carbajal MD; Ryan Prescott MD [...] 05/25/24 1609 DD/ 1300 TD/TT: 05/25/24 1350 Electric Deicer Assembler: [facility] External Provider IMG BI PROCEDURES Edited Result - Final * Lipid Panel, Standard (01/01/2023 10:20 AM EDT) Triglycerides 73 mg/dL [facility] Comment:Desirable Triglyceri de: less than 150 mg/dLBorderline High Triglyceride 150-199 mg/dLHigh Triglyceride: 200-499 mg/dLVery High Triglyceride: greater than or equal to 5OO mg/dL Cholesterol 101 mg/dL [facility] Comment:Desirable Cholestero l: less than 200 mg/dLBorderline High Cholesterol: 200-239 mg/dLHigh Cholesterol: greater than 239 mg/dL LDL Cholesterol Calculated 53 mg/dl [facility] Comment:Desirable LDL: less than 100 mg/dLNear Optimal/Above Optimal LDL: 110- 129 mg/dLBorderline High LDL: 130-159 mg/dLHigh LDL: 160-189 mg/dLVery High LDL: greater than or equal to 190 mg/dL HDL Cholesterol 34 mg/dL [facility] Comment:Desirable HDL: great er than 40 mg/dL Note: This HDL assay may give artificially low results in patients with liver disease. 01/01/2023 10:2 0 AM EDT 01/01/2023 10:20 AM EDT [facility] External Provider LAB BLO OD ORDERABLES Final Result Performing Organization Address [facility] de Phone Number [facility] [address] [place] [address] [phone] * HEPATITIS C AB W/REFL TO HCV RNA, QN, PCR (01/24/2022 8:19 AM EDT) HEPATITIS C ANTIBODY NON-REACT [facility] NON-REACT [facility] INDEX 0.02 <1.00 [facility] Comment: HCV antibody was non-reactive. There is no laboratory evidence of HCV infection. In most cases, no further action is required. However, if recent HCV exposure is suspected, a test for HCV RNA (test code 56449) is suggested. For additional information please refer to http://education.[employer]/faq/PQU48w5 (This link is being provided for informational/ educational purposes only.) 01/24/2022 8:19 AM EDT Braulio Campbell MD HISTORICAL/NON ORD ERABLE LABS Final Result Performing Organization Address City/[facility]/ZIP Co de Phone Number [facility] [address] * HIV 1/2 ANTIGEN/ANTIBODY,FOURTH GENERATION W/RFL (01/24/2022 8:19 AM EDT) HIV-1/2 ANTIGEN AND ANTIBODIES, 4TH GENERATION W/ REFLEX NON-REACT [facility] NON-REACT [facility] Comment: HIV-1 antigen and HIV-1/HIV-2 antibodies were not detected. There is no laboratory evidence of HIV infection. PLEASE NOTE: This information has been disclosed to you from records whose confidentiality may be protected by state law. If your state requires such protection, then the state law prohibits you from making any further disclosure of the information without the specific written consent of the person to whom it pertains, or as otherwise permitted by law. A general authorization for the release of medical or other information is NOT sufficient for this purpose. For additional information please refer to http://education.[employer]/faq/DGU889 (This link is being provided for informational/ educational purposes only.) The performance of this assay has not been clinically validated in patients less than 2 years old. 01/24/2022 8:19 AM EDT Braulio Campbell MD LAB BLOOD ORDERABL ES Final Result [facility] [address] from Last 3 Months or Most Recently Relevant to Health Maintenance Insurance [employer] [place] [phone]
--- OUTSIDE RECORDS SUMMARY | 2025-03-30 09:27 | XMS_ITS | Encounter Summary ---
Author Organization [employer] Address [address] [facility] [address] [place] [address] Care Team Providers Care Supervisor Sawing And Assembly Name Role Phone Unavailable Primary Care Provider Unavailabl e Reason for Visit * Reason Comments Med Refill Encounter Details Date Type Department Care Team ([facility] st Contact Info) Description 11/02/2024 Refill [facility] P[facility]S [address] [place] [address] Braulio Carbajal MD [address] [place] [address] Social History Tobacco Use Types Packs/Day Years [...]
== END 2025-03-30 10:16 | disposition home or self-care (01) ==
LOC: HO.HOP 09:06
PROVIDERS: PCP Family Medicine; Visit Provider Counselor Mental Health
DX: F90.2 Attention-deficit hyperactivity disorder, combined type (principal); F41.0 Panic disorder [episodic paroxysmal anxiety]; F32.A Depression, unspecified
CPT/HCPCS: 90837

== ENCOUNTER 2025-04-20 09:48 | Outpatient (AMB) | payer OTHER, SELFPAY ==
--- NOTE | 2025-04-20 09:43 | MHC.WMTHER ---
Intake Intake Visit Reasons: VIDEO OP Therapy Allergies Penicillins Allergy (Intermediate, Verified 03/16/25 13:12) Shortness of Breath pt states no food allergies Allergy (Unknown, Uncoded 03/16/25 13:12) Unknown [facility] Medical History Type 2 diabetes mellitus with retinopathy Asthma Insomnia Neuropathy Breast calcification, right Adenocarcinoma determined by biopsy of liver Diabetic retinopathy Anxiety and depression GERD (gastroesophageal reflux disease) SOLE on CPAP ADHD Hyperlipidemia HTN (hypertension) with goal to be determined Diabetes mellitus Morbid obesity Surgical History Hx of LASIK History of cholecystectomy Family History Mother Diabetes Heart problem Father Hypertension Maternal Grandmother Primary cancer of bone marrow Maternal Grandfather Prostate cancer Social History Are you a primary childbirth and infant care teacher to a significant other at home: No Do you presently have visiting nurse or other home services: No Alcohol intake: never Patient Tobacco Use Status: Never used Tobacco Female Reproductive History Menstrual Age of Menarche: 13 Behavioral Health Assessment Weight Management Therapy Therapy Notes Details Subjective: Patient presents expressing frustration regarding ongoing challenges with her , particularly related to his immigration status. She reports feeling exhausted due to working longer hours, which has disrupted her sleep routine and eating habits. Patient notes she has not been exercising, often skips meals, and struggles with meal planning when her schedule changes. She identifies increased stress and difficulty managing her overall well-being as a result. Objective: Session focused on supportive listening to assess current functioning and coping strategies. Explored patient?s emotional response to ongoing stressors, including feelings of disconnection from her and underlying core beliefs related to not feeling loved. Discussed symptom management, communication, and assertiveness skills to help her express needs to her partner and prioritize her mental health and wellness. Reviewed practical strategies for meal preparation, improving sleep hygiene, and incorporating exercise, especially in preparation for upcoming weight-loss surgery. Patient was engaged, cooperative, and able to reflect on her experiences. Assessment/Response: Mental status: Mood is frustrated and fatigued; affect congruent with mood. Thought process logical and goal-directed. No evidence of psychosis or cognitive impairment. Risk: No suicidal or homicidal ideation, intent, or plan reported or identified. No acute safety concerns at this time. Assessment & Plan Assessment & Plan (1) ADHD: Code(s): F90.9 - Attention-deficit hyperactivity disorder, unspecified type Qualifiers: Attention deficit-hyperactivity disorder type: combined inattentive-hyperactive Qualified Code(s): F90.2 - Attention-deficit hyperactivity disorder, combined type (2) Panic disorder: Code(s): F41.0 - Panic disorder [episodic paroxysmal anxiety] (3) Depression, unspecified: Code(s): F32.A - Depression, unspecified Plan Follow up in 1 week. Next appointment: 04/27/25 at 9am. Video? Telehealth Telehealth Telehealth Platform: [employer] Location of provider rendering services: other (Home office. [place], [place]) Location of patient: address on file Patient Identification confirmed using: Name, : Yes Telehealth method: video Patient verbally consented to treatment: Yes Patient verbally consented to billing insurance company: Yes Patient informed of any privacy concerns related to visit: Yes Minutes spent on Phone/Video with Pt.: 70 Coding Level of Care Code Established Pt Tele Psytx >53 mins ([id number]) Patient Type Established Diagnoses Attention deficit hyperactivity disorder (ADHD), combined type F90.2 Attention deficit-hyperactivity disorder type: combined inattentive-hyperactive Panic disorder F41.0 Depression, unspecified F32.A Time Spent (min) 70 Comment start time: 9:40am - End time: 10:50am
--- OUTSIDE RECORDS SUMMARY | 2025-04-20 12:36 | XMS_ITS | Encounter Summary ---
Author Organization [facility] Address [address] [place] [address] Care Team Providers Care Computational Mathematician Name Role Phone Nicole Padron MD Primary Care Provider [phone] Encounter Details Date Type Department Care Team (Late st Contact Info) Description 03/02/2025 Orders Only [facility] [address] [place] [phone] Bc Buckley, [facility] [address] [place] [address] Social History Tobacco Use Types Packs/Day Years Used Date Smoking Tobacco: Never Smokeless Tobacco: Never Alcohol Use Standard Drinks/Week Comments Not Currently 0 (1 standard drink = 0.6 oz pur e alcohol) PHQ-2 Answer Date Recorded PHQ-2 Score 0 03/02/2025 Comments Unknown Sex and Gender Information Value Date Recorded Sex Assigned at Not on file Legal Sex Female 3:55 PM EDT Gender Identity Not on file Sexual Orientation Not on file Occupation Industry Job Start Date Job End Date [employer] Not on file Not on file Not on file documented as of this encounter Functional Status * Over the past 2 weeks, how often have you been bothered by any of the following problems? Question Answer Date of Assessment Author Patient Health Questionnaire-2 Score 0 02/03 9:32 AM EDT Dylon Racine * Little interest or pleasure in doing things Answer Date of Assessment Author Not at all 03/02/2025 9:32 AM EDT Courtney Osborne [place] * Feeling down, depressed, or hopeless Answer Date of Assessment Author Not at all 03/02/2025 9:32 AM EDT Tablet, L [place] * Feeling nervous, anxious, or on edge Answer Date of Assessment Author 1 03/02/2025 9:32 AM EDT Tablet, L [place] * Not being able to stop or control worrying Answer Date of Assessment Author 0 03/02/2025 9:32 AM EDT Tablet, L [place] documented as of this encounter Plan of Treatment Upcoming Encounters Date Type Department Care Team (Late st Contact Info) Description 03/07/2026 9:15 AM EDT CPE - Comprehensive Physical Exam [facility] [address] [place] [address] Bc Buckley DNP [address] [place] [address] CPE documented as of this encounter Goals Goal Patient Goal Type Associated Problems Recent Progress Patient-Stated? Author Blood Pressure < 140/90 Blood Pressure 119/79(03/02 9:52 AM EDT) No Bc Buckley DNP Note: Above is your goal for blood pressure control. You may be able to prevent, reduce or eliminate the medication required for your blood pressure by regular measurement of your blood pressure at home, since home readings are often more reliable than measurements at the doctor s office. You can also improve your blood pressure by getting regular exercise, keeping a normal weight, reducing your sodium/salt intake to 2000 mg/day, reducing caffeine and by limiting your alcohol intake. Men should limit consumption to no more than 2 drinks per day (beer, wine, or mixed drinks) and women should limit to one drink per day. Follow the DASH diet, a diet low in fat, cholesterol, red meat, and sweets. It emphasizes fruits, vegetables, and low-fat dairy foods. The DASH diet also includes whole-grain products, fish, poultry, and nuts. HEMOGLOBIN A1C % < 7 Result Component 7.6(03/02/20 10:42 AM EDT) Bc Olivier DNP Note: Above is your goal for sugar control. Your risk for future diabetic complications such as blindness and amputation can be reduced by following your diabetic diet plan, and paying careful attention to self-monitoring your blood sugar and blood pressure at home. Please plan to check your blood sugar and blood pressure at the frequency suggested, and bring these numbers with you to your next scheduled visit. If you have difficulty reaching the goals which you have set for your diabetes your PCP can refer to one of our diabetes self-management support programs. A fasting blood sugar below 120 is ideal. documented as of this encounter Procedures * Due to [place] [employer] law, this organization might not be sharing negative HIV tests. Procedure Name Priority Date/Time Associated Diagnosis Comments HEPATITIS C AB WITH REFLEX TO RNA PCR, SERUM Routine 03/02/2025 10:42 AM EDT Need for hepatitis C screening test HEMOGLOBIN A1C Routine 03/02/2025 10:42 AM EDT Type 2 diabetes mellitus without complication, with long-term current use of insulin (HCC) ALBUMIN (MICROALBUMIN), RANDOM URINE, WITH CREATININE Routine 03/02/2025 10:42 AM EDT Type 2 diabetes mellitus without complication, with long-term current use of insulin (HCC) LIPID PANEL WITH REFLEX TO DIRECT LDL Routine 03/02/2025 10:42 AM EDT Type 2 diabetes mellitus without complication, with long-term current use of insulin (HCC) BASIC METABOLIC PANEL WITH (GFR) Routine 03/02/2025 10:42 AM EDT Type 2 diabetes mellitus without complication, with long-term current use of insulin (HCC) documented in this encounter Results * Due to [place] [employer] law, this organization might not be sharing negative HIV tests. * (ABNORMAL) HEMOGLOBIN A1C (03/02/2025 10:42 AM EDT) Hemoglobin A1C 7.6(H) <5.7 % [facility] Comment: For someone without known diabetes, a hemoglobin A1c value of 6.5% or greater indicates that they may have diabetes and this should be confirmed with a follow-up test. For someone with known diabetes, a value <7% indicates that their diabetes is well controlled and a value greater than or equal to 7% indicates suboptimal control. A1c targets should be individualized based on duration of diabetes, age, comorbid conditions, and other considerations. Currently, no consensus exists regarding use of hemoglobin A1c for diagnosis of diabetes for children. Estimated Average Glucose 193 mg/dL (calc) [facility] 03/02/2025 10:4 2 AM EDT 03/02/2025 5:44 PM EDT Narrative Resulting Agency Comment [id number] Bc Buckley [facility] Final Result Performing Organization Address [facility] de Phone Number [facility] [address] [place] [address] * (ABNORMAL) LIPID PANEL WITH REFLEX TO DIRECT LDL (03/02/2025 10:42 AM EDT) Cholesterol 182 <200 mg/dL [facility] HDL Cholesterol 48(L) > OR = 50 mg/dL [facility] Triglyceride 111 <150 mg/dL [facility] LDL Cholesterol 112(H) mg/dL (calc) [facility] Comment: Reference range: <100 Desirable range <100 mg/dL for primary prevention; <70 mg/dL for patients with CHD or diabetic patients with > or = 2 CHD risk factors. LDL-C is now calculated using the Darci-Fox calculation, which is a validated novel method providing better accuracy than the Friedewald equation in the estimation of LDL-C. Darci SS et al. COY. 2013;310(19): 8997-5114 (http://education.Path.To.MediaBoost/faq/HNU449) CHOL/HDL Ratio 3.8 <5.0 (calc) [facility] Cholesterol Non-HDL 134(H) <130 mg/dL (calc) [facility] Comment: For patients with diabetes plus 1 major ASCVD risk factor, treating to a non-HDL-C goal of <100 mg/dL (LDL-C of <70 mg/dL) is considered a therapeutic option. 03/02/2025 10:4 2 AM EDT 03/02/2025 5:44 PM EDT Narrative Resulting Agency Comment [id number] Bc Buckley [facility] Final Result Performing Organization Address [facility]/State/ZIP Co de Phone Number [facility] [address] [place] [address] * ALBUMIN (MICROALBUMIN), RANDOM URINE, WITH CREATININE (03/02/2025 10:42 AM EDT) Creatinine (Urine) 85 20 - 275 mg/dL [facility] Albumin (Urine) 1.6 mg/dL [facility] Comment: Reference Range Not established Albumin/Creatinine (Urine) 19 <30 mg/g creat [facility] Comment: The ADA defines abnormalities in albumin excretion as follows: Albuminuria Category Result (mg/g creatinine) Normal to Mildly increased <30 Moderately increased 30-299 Severely increased > OR = 300 The ADA recommends that at least two of three specimens collected within a 3-6 month period be abnormal before considering a patient to be within a diagnostic category. 03/02/2025 10:4 2 AM EDT 03/02/2025 5:44 PM EDT Narrative Resulting Agency Comment [id number] Bc Buckley [facility] Final Result Performing Organization Address City/[facility] de Phone Number [facility] [address] [place] [address] * (ABNORMAL) BASIC METABOLIC PANEL WITH (GFR) (03/02/2025 10:42 AM EDT) Glucose 157(H) 65 - 99 mg/dL [facility] Comment: Fasting reference interval For someone without known diabetes, a glucose value >125 mg/dL indicates that they may have diabetes and this should be confirmed with a follow-up test. Urea Nitrogen Blood (BUN) 18 7 - 25 mg/dL [facility] Creatinine 0.77 0.50 - 0.99 mg/dL [facility] EGFR 95 > OR = 60 mL/min/1. 73m2 [facility] BUN/Creatinine Ratio SEE NOTE: 6 - 22 (calc) [facility] Comment: Not Reported: BUN and Creatinine are within reference range. Sodium 134(L) 135 - 146 mmol/L [facility] Potassium 4.5 3.5 - 5.3 mmol/L [facility] Chloride 98 98 - 110 mmol/L [facility] Carbon dioxide 28 20 - 32 mmol/L [facility] Calcium 9.6 8.6 - 10.2 mg/dL [facility] 03/02/2025 10:4 2 AM EDT 03/02/2025 5:44 PM EDT Narrative [facility] - 03/02/2025 8:48 PM EDT Please note that this estimated GFR does not include an adjustment for the patient's height or weight, and can therefore, be viewed as reliable only for patients with heights between 60 and 72 . More precise quantification using a 24-hour urine sample or height-based algorithm is recommended for patients outside of this range of height and for those individuals with more precise needs for GFR calculation. Resulting Agency Comment [id number] Bc Buckley [facility] Final Result Performing Organization Address [facility] Co de Phone Number [facility] [address] [place] [address] * HEPATITIS C AB WITH REFLEX TO RNA PCR, SERUM (03/02/2025 10:42 AM EDT) Hepatitis C virus Ab NON-REACT SÁNCHEZ NON-REACT SÁNCHEZ [facility] Comment: HCV antibody was non-reactive. There is no laboratory evidence of HCV infection. In most cases, no further action is required. However, if recent HCV exposure is suspected, a test for HCV RNA (test code 55958) is suggested. For additional information please refer to http://education.[employer]/faq/EGU08y4 (This link is being provided for informational/ educational purposes only.) 03/02/2025 10:4 2 AM EDT 03/02/2025 5:44 PM EDT Narrative Resulting Agency Comment [id number] Bc Buckley [facility] Final Result Performing Organization Address [facility] Co de Phone Number [facility] [address] [place] [address] documented in this encounter Visit Diagnoses Diagnosis Need for hepatitis C screening test Special screening examination for other specified viral diseases Type 2 diabetes mellitus without complication, with long-term current use of insulin (HCC) documented in this encounter Care Teams Computational Mathematician Relationship Specialty Start Date End Date Nicole Padron MD [address] [facility] [place] [address] PCP - General Family Medicine 10/28/24 documented as of this encounter
--- OUTSIDE RECORDS SUMMARY | 2025-04-20 12:36 | XMS_ITS | Encounter Summary ---
Author Organization [facility] Address [address] [place], [place] [id number] Care Team Providers Care Gun Perforator Name Role Phone Nicole Padron MD Primary Care Provider [phone] Reason for Visit * Reason Comments Medical Record Encounter Details Date Type Department Care Team (Late Contact Info) Description 03/23/2025 Abstract [facility] [place] [address] Unknown, Abstract Provider Social History Tobacco Use Types Packs/Day Years [...] on file documented as of this encounter Plan of Treatment Upcoming Encounters Date Type Department Care Team (Late st Contact Info) Description 03/07/2026 9:15 AM EDT CPE - Comprehensive Physical Exam [facility] [address] [place] [phone] Bc Buckley, MAXIMO [address] [place] [address] CPE documented as of this encounter Goals Goal Patient Goal Type Associated Problems Recent Progress Patient-Stated? Author Blood Pressure < 140/90 Blood Pressure 119/79(07/29 /2025 9:52 AM EDT) Bc Olivier DNP Note: Above [...] is ideal. documented as of this encounter Visit Diagnoses Not on filedocumented in this encounter Care Teams Gun Perforator Relationship Specialty Start Date End Date Nicole Padron MD [address] [place] [address] PCP - General Family Medicine 10/28/24 documented as of this encounter
--- OUTSIDE RECORDS SUMMARY | 2025-04-20 12:36 | XMS_ITS | Encounter Summary ---
Author Organization [employer] Address [address] [place] [address] Care Team Providers Care Dealer Accounts Investigator Name Role Phone Braulio Carbajal MD Primary Care Prov ider Reason for Visit * Reason Onset Date Comments Med Refill 02/28/2023 Encounter Details Date Type Department Care Team (Late st Contact Info) Description 02/28/2023 Refill [facility] CHC MED & PEDS [address] [place] [address] Braulio Carbajal MD [address] [place] [address] Social History Tobacco Use Types Packs/Day Years [...] on filedocumented in this encounter Care Teams Dealer Accounts Investigator Relationship Specialty Start Date End Date Braulio Carbajal MD [address] [place] [address] PCP - General Internal Medicine 12/14/19 04/28/24 documented as of this encounter
--- OUTSIDE RECORDS SUMMARY | 2025-04-20 12:36 | XMS_ITS | Clinical Summary ---
Author Organization [facility] Address [address] [place] [address] Care Team Providers Care Rock Room Worker Name Role Phone Braulio Lopez Primary Care Provider [phone] Allergies Active Allergy Reactions Criticality Noted Date [...] age to complete this topic Care Teams Rock Room Worker Relationship Specialty Start Date End Date Braulio Lopez PCP - General Internal Medicine 02/01/22
--- OUTSIDE RECORDS SUMMARY | 2025-04-20 12:36 | XMS_ITS | Continuity of Care Document ---
Author Organization [facility] Address [address] [facility] [address] [place] [address] Phone [phone] Social History Type Date Description Comments Sex Female Sex Unknown Medical Devices Description No Information Available Encounters Description No Information Available Assessments Description No Information Available Plan of Treatment No Information Available Functional Status Description No Information Available Mental Status Description No Information Available Referrals Description No Information Available
--- OUTSIDE RECORDS SUMMARY | 2025-04-20 12:36 | XMS_ITS | Encounter Summary ---
Author Organization [facility] Address [address] [place], [place] [phone] Care Team Providers Care Deep Fryer Assembler Name Role Phone Nicole Padron MD Primary Care Provider [phone] Reason for Visit * Reason Comments Medical Record Encounter Details Date Type Department Care Team (Late Contact Info) Description 03/23/2025 Abstract [facility] [place] [address] Unknown, Abstract Provider Social History Tobacco Use [...] AM EDT CPE - Comprehensive Physical Exam [facility] [address] [place] [phone] Bc Buckley, MAXIMO [address] [place] [address] CPE documented as of this encounter Goals [...] on filedocumented in this encounter Care Teams Deep Fryer Assembler Relationship Specialty Start Date End Date Nicole Padron MD [address] [facility] [place] [address] PCP - General Family Medicine 10/28/24 documented as of this encounter
--- OUTSIDE RECORDS SUMMARY | 2025-04-20 12:36 | XMS_ITS | Encounter Summary ---
Author Organization [employer] Address [address] [facility] 7t [place] [address] Care Team Providers Care Ship Pilot Dispatcher Name Role Phone Unavailable Primary Care Provider Unavailabl e Reason for Visit * Reason Comments Med Refill Encounter Details Date Type Department Care Team ([facility] st Contact Info) Description 10/19/[address] [facility] CHC MED & PEDS [address] [place] [address] Braulio Carbajal MD [address] [place] [address] Social History Tobacco Use Types Packs/Day Years [...]
--- OUTSIDE RECORDS SUMMARY | 2025-04-20 12:36 | XMS_ITS | Encounter Summary ---
Author Organization [facility] Address [address] [place] [address] Care Team Providers Care Machine Tool Builder Name Role Phone Nicole Padron MD Primary Care Provider Encounter Details Date Type Department Care Team (Late Contact Info) Description 03/30/2025 Orders Only [address] [phone] Nicole Padron MD [address] [place] [address] Social History Tobacco Use Types Packs/Day Years [...] AM EDT CPE - Comprehensive Physical Exam [address] [phone] Bc Buckley, MAXIMO [address] [place] [address] CPE documented as of this encounter Goals Goal Patient Goal Type Associated Problems Recent Progress Patient-Stated? Author Blood Pressure < 140/90 Blood Pressure 119/79(03/02 9:52 AM EDT) Bc Olivier DNP Note: [...] of this encounter Procedures * Due to [place] state law, this organization might not be sharing negative HIV tests. Procedure Name Priority Date/Time Associated Diagnosis Comments CULTURE, URINE, ROUTINE Routine 03/30/2025 12:26 PM EDT Dysuria URINALYSIS, COMPLETE INCLUDES DIPSTICK AND MICROSCOPIC Routine 03/30/2025 12:26 PM EDT Dysuria documented in this encounter Results * Due to [place] state law, this organization might not be sharing negative HIV tests. * (ABNORMAL) URINALYSIS, COMPLETE INCLUDES DIPSTICK AND MICROSCOPIC (03/30/2025 12:26 PM EDT) Color (Urine) YELLOW YELLOW [facility] Appearance (Urine) CLEAR CLEAR [facility] Specific gravity (Urine) 1.035 1.001 - 1.035 [facility] pH (Urine) 6.0 5.0 - 8.0 [facility] Glucose (Urine) 3+(A) NEGATIVE [facility] Bilirubin (Urine) NEGATIVE NEGATIVE [facility] Ketones (Urine) NEGATIVE NEGATIVE [facility] Hemoglobin (Urine) NEGATIVE NEGATIVE [facility] Protein (Urine) NEGATIVE NEGATIVE [facility] Nitrite (Urine) NEGATIVE NEGATIVE [facility] Leukocyte esterase (Urine) NEGATIVE NEGATIVE [facility] WBC (Urine) 6-10(A) < OR = 5 /HPF [facility] RBC (Urine Sed) NONE SEEN < OR = 2 /HPF [facility] Epithelial cells.squamous (Urine sed) 0-5 < OR = 5 /HPF [facility] Bacteria (Urine) NONE SEEN NONE SEEN /HPF [facility] Hyaline casts (Urine sed) NONE SEEN NONE SEEN /LPF [facility] Service comment 01 See Below [facility] Comment: This urine was analyzed for the presence of WBC, RBC, bacteria, casts, and other formed elements. Only those elements seen were reported. 03/30/2025 12:2 6 PM EDT 03/31/2025 1:20 AM EDT Narrative Resulting Agency Comment [id number] Nicole Padron MD LAB SAME DAY RESULT Final Result Performing Organization Address City/State/[facility] Co de Phone Number [facility] [address] [place] [address] * (ABNORMAL) CULTURE, URINE, ROUTINE (03/30/2025 12:26 PM EDT) Bacteria culture (Urine) SEE NOTE(A) [facility] Comment: CULTURE, URINE, ROUTINE Micro Number: [id number] Test Status: Final Specimen Source: Not given Specimen Quality: Adequate Result: 10,000-49,000 CFU/mL of Staphylococcus aureus 50,000-100,000 CFU/mL of Group B Streptococcus isolated Beta-hemolytic streptococci are predictably susceptible to Penicillin and other beta-lactams. Susceptibility testing not routinely performed. Please contact the laboratory within 3 days if susceptibility testing is desired. Comment: Erythromycin and clindamycin are not recommended for treatment of urinary tract infections, but clindamycin may be useful for treatment of rectovaginal colonization or infection. Any amount of group B Streptococcus in urine specimens obtained from females is a marker of genital tract colonization. If this patient is , please refer to ACOG guidelines for appropriate screening and management of women. S.aureus INT NORI CIPROFLOXACIN S <=0.5 GENTAMICIN S <=0.5 LEVOFLOXACIN S <=0.12 MOXIFLOXACIN S <=0.25 NITROFURANTOIN S <=16 OXACILLIN S 0.5 1 TETRACYCLINE R >=16 TRIMETHOPRIM/SULFA S <=10 VANCOMYCIN S <=0.5 S = Susceptible I = Intermediate R = Resistant NS = Not susceptible SDD = Susceptible Dose Dependent * = Not Tested NR = Not Reported NN = See Therapy Comments THERAPY COMMENTS Note 1: Oxacillin susceptible staphylococci are susceptible to other penicillinase-stable penicillins (e.g., methicillin, nafcillin), beta- lactam/beta-lactamase inhibitor combinations, and cephems with staphylococcal indications, including cefazolin. 03/30/2025 12:2 6 PM EDT 03/31/2025 1:20 AM EDT Narrative Resulting Agency Comment [id number] Nicole Padron MD LABORATORY Final Result Performing Organization Address City/State/[facility] Phone Number [facility] [address] [place] [address] documented in this encounter Visit Diagnoses Diagnosis Dysuria documented in this encounter Care Teams Machine Tool Builder Relationship Specialty Start Date End Date Nicole Padron MD [address] [facility] [place] [address] PCP - General Family Medicine 10/28/24 documented as of this encounter
--- OUTSIDE RECORDS SUMMARY | 2025-04-20 12:36 | XMS_ITS | Encounter Summary ---
Author Organization [employer] Address [address] [facility] 7[address] [place] [address] Care Team Providers Care Graduate Internship Name Role Phone Unavailable Primary Care Provider Unavailabl e Reason for Visit * Reason Comments Med Refill Encounter Details Date Type Department Care Team ([facility] st Contact Info) Description 10/13/2024 Refill [facility] CHC MED & PEDS [address] [place] [address] Braulio Carbajal MD [address] [place] [address] Primary hypertension Social History Tobacco Use Types [...]
--- OUTSIDE RECORDS SUMMARY | 2025-04-20 12:36 | XMS_ITS | Encounter Summary ---
Author Organization [employer] Address [address] [facility] 7 [place] [address] Care Team Providers Care Link Trainer Mechanic Name Role Phone Braulio Carbajal MD Primary Care Prov ider Reason for Visit * Reason Onset Date Comments Med Refill 02/28/2023 Encounter Details Date Type Department Care Team (Late st Contact Info) Description 02/28/2023 Refill [facility] MEDICINE [address] [place] [address] Braulio Carbajal MD [address] [place] [address] Mixed hyperlipidemia; Primary hypertension; Type 2 diabetes [...] (CMS/HCC) documented in this encounter Care Teams Link Trainer Mechanic Relationship Specialty Start Date End Date Braulio Carbajal MD [address] [place] [address] PCP - General Internal Medicine 12/14/19 04/28/24 documented as of this encounter
--- OUTSIDE RECORDS SUMMARY | 2025-04-20 12:36 | XMS_ITS | Encounter Summary ---
Author Organization [employer] Address [address] [place] [address] Care Team Providers Care Wood Milling Machine Tender Name Role Phone Braulio Carbajal MD Primary Care Prov ider Reason for Visit * Reason Comments Med Refill Encounter Details Date Type Department Care Team (Late st Contact Info) Description 10/29/2022 Refill [facility] MEDICINE [address] [place], [place] [phone] Braulio Carbajal MD [address] [place] [address] Social History Tobacco Use Types Packs/Day Years [...] on filedocumented in this encounter Care Teams Wood Milling Machine Tender Relationship Specialty Start Date End Date Braulio Carbajal MD [address] [place] [address] PCP - General Internal Medicine 12/14/19 04/28/24 documented as of this encounter
--- OUTSIDE RECORDS SUMMARY | 2025-04-20 12:36 | XMS_ITS | Encounter Summary ---
Author Organization [employer] Address [address] [facility] 7t [place] [address] Care Team Providers Care Magnetizer Name Role Phone Unavailable Primary Care Provider Unavailabl e Reason for Visit * Reason Comments Med Refill Encounter Details Date Type Department Care Team ([facility] st Contact Info) Description 11/02/2024 Refill [facility] [address] [place] [address] Braulio Carbajal MD [address] [place] [address] Social History Tobacco Use Types Packs/Day Years [...]
--- OUTSIDE RECORDS SUMMARY | 2025-04-20 12:36 | XMS_ITS | Encounter Summary ---
Author Organization [employer] Address [address] [facility] 7t [place] [address] Care Team Providers Care Instructor Physical Name Role Phone Braulio Carbajal MD Primary Care Prov ider Encounter Details Date Type Department Care Team (Late st Contact Info) Description 08/17/2022 Orders Only [facility] [address] [place] [address] Braulio Carbajal MD [address] [place] [address] Type 2 diabetes mellitus without complication, unspecified whether credit card clerk insulin use ([facility]) (Primary Dx) Social History Tobacco [...] 2 diabetes mellitus without complication, unspecified whether intermediate insulin use (CMS/HCC) HEMATOXYLIN AND EOSIN STAIN Routine 01/09/2023 8:38 AM EDT Type 2 diabetes mellitus without complication, unspecified whether intermediate insulin use (CMS/HCC) COVID-19 ID NOW (DUPREE) Routine 01/08/2023 2:18 PM EDT Type 2 diabetes mellitus without complication, unspecified whether intermediate insulin use (CMS/HCC) TYPE AND SCREEN Routine 01/01/2023 10:22 AM EDT Type 2 diabetes mellitus without complication, unspecified whether credit card clerk insulin use (CMS/HCC) VITAMIN D,25-OH,TOTAL,IA Routine 01/01/2023 10:20 AM EDT Type 2 diabetes mellitus without complication, unspecified whether credit card clerk insulin use (CMS/HCC) TSH W/REFLEX TO FT4 Routine 01/01/2023 1 0:20 AM EDT Type 2 diabetes mellitus without complication, unspecified whether credit card clerk insulin use (CMS/HCC) CBC WITH AUTO DIFFERENTIAL Routine 01/01/2023 10:20 AM EDT Type 2 diabetes mellitus without complication, unspecified whether credit card clerk insulin use (CMS/HCC) ZINC Routine 01/01/2023 10:20 AM EDT Type 2 diabetes mellitus without complication, unspecified whether intermediate insulin use (CMS/HCC) VITAMIN A Routine 01/01/2023 10:20 AM EDT Type 2 diabetes mellitus without complication, unspecified whether intermediate insulin use (CMS/HCC) APTT Routine 01/01/2023 10:20 AM EDT Type 2 diabetes mellitus without complication, unspecified whether intermediate insulin use (CMS/HCC) PROTHROMBIN TIME-INR Routine 01/01/2023 10:20 AM EDT Type 2 diabetes mellitus without complication, unspecified whether credit card clerk insulin use (CMS/HCC) C-REACTIVE PROTEIN Routine 01/01/2023 10 :20 AM EDT Type 2 diabetes mellitus without complication, unspecified whether credit card clerk insulin use (CMS/HCC) VITAMIN B1 Routine 01/01/2023 10:20 AM EDT Type 2 diabetes mellitus without complication, unspecified whether intermediate insulin use (CMS/HCC) PTH, INTACT WITHOUT CALCIUM Routine 01/01/2023 10:20 AM EDT Type 2 diabetes mellitus without complication, unspecified whether credit card clerk insulin use (CMS/HCC) HEMOGLOBIN A1C Routine 01/01/2023 10:20 AM EDT Type 2 diabetes mellitus without complication, unspecified whether credit card clerk insulin use (CMS/HCC) FERRITIN Routine 01/01/2023 10:20 AM EDT Type 2 diabetes mellitus without complication, unspecified whether credit card clerk insulin use (CMS/HCC) VITAMIN B12 Routine 01/01/2023 10:20 AM EDT Type 2 diabetes mellitus without complication, unspecified whether intermediate insulin use (CMS/HCC) LIPID PANEL, STANDARD Routine 01/01/2023 10:20 AM EDT Type 2 diabetes mellitus without complication, unspecified whether credit card clerk insulin use (CMS/HCC) COMPREHENSIVE METABOLIC PANEL Routine 01/01/2023 10:20 AM EDT Type 2 diabetes mellitus without complication, unspecified whether credit card clerk insulin use (CMS/HCC) GLUCOSE, WHOLE BLOOD Routine 11/13/2022 1:31 PM EDT Type 2 diabetes mellitus without complication, unspecified whether intermediate insulin use (CMS/HCC) HEMOGLOBIN A1C Routine 11/13/2022 1:14 PM EDT Type 2 diabetes mellitus without complication, unspecified whether credit card clerk insulin use (CMS/HCC) documented in this encounter Results * CA 19-9 (01/09/2023 10:38 AM EDT) CA 19-9 14 <34 U/mL [facility] Comment:The CA19-9 result ma y be increased on average 14% - 20%,relative to results previously obtained with this methoddue to a recent calibrator adjustment made in Octobery the reagent content writer. In the low range for thisassay (< [...] or absence of disease.THIS TEST WAS PERFORMED AT:[employer] [place] [id number] LONDONO MD 01/09/2023 10:3 8 AM EDT 01/09/2023 10:42 AM EDT [facility] External Provider LAB BLO OD ORDERABLES Final Result [facility] [address] [place] [phone] * Hematoxylin and Eosin Stain (01/09/2023 8:38 AM EDT) 01/09/2023 8:38 AM EDT 01/09/2023 8:53 AM EDT Narrative [facility] - 01/14/2023 1:28 PM EDT ----- ------- Name: Julia López Age/Sex: 47/F : 1975 [facility]#: [id number] Unit#: [id number] Attend Dr: Darci Sanders MD Re01/09/23 Status: [facility] Location: [facility] Disch: ----- ------- SPEC : [id number] RECD: 01/09/23 STATUS: HERMINIO CROCKER NUM: [id number] PUSHPA: 01/09/[address] [facility] [address]: Darci Sanders MD ENTERED: 01/09/23 SP [...] tissue, favor well- differentiated adenocarcinoma by Dr. Leborn. CONTINUED ON NEXT PAGE ----- ------- Name: Julia López Age/Sex: 47/F : 1975 Unit#: [id number] Attend Dr: Darci Sanders MD Re01/09/23 Status: [facility] Location: [facility] Disch: ----- ------- SPEC : [id number] RECD: 01/09/23 STATUS: HERMINIO OBI NUM: [id number] PUSHPA: 01/09/[address] [facility] [address]: Darci Sanders MD ENTERED: 01/09/23 SP [...] on B2. Copies To: Braulio Carbajal MD [address] [place] [id number] Darci Sanders MD [address] [place] [address], [address]rd [place] [address] ----- ------- Signed (signature on file) Shaun Lebron MD 01/14/23 1328 ----- ------- END OF REPORT [facility] External Provider LAB BLO OD ORDERABLES Final Result [facility] [address] [place] [address] [phone] * COVID-19 ID NOW ([place]) (01/08/2023 2:18 PM EDT) IDNOW SERIAL# [id number] [facility] COVID-19 TEST Negative Negative [facility] COVID-19 NOTE See Note [facility] Comment: Results are for the identification of SARS-CoV2 RNA. TheSARS-CoV2 RNA is generally detectable in respiratory samplesduring the acute phase of infection. Positive results areindicative of the presence of SARS-CoV-2 RNA; clinicalcorrelation with patient history and other diagnosticinformation is necessary to determine patient infectionstatus. Positive results do not rule out bacterial infectionor co- infection with other viruses.Testing facilities within the [facility] and [facility] are required to report all positive results [...] use by authorized laboratories.Testing performed on the Regaalo ID NOW utilizing NAAT. 01/08/2023 2:18 PM EDT 01/08/2023 2:32 PM EDT [facility] Exter nal Provider LAB MOLECULAR DIAGNOSTICS ORDERABLES Final Result Performing Organization Address City/[facility] de Phone Number [facility] [address] [place] [address] [phone] * Type and screen (01/01/2023 10:22 AM EDT) Pathologist [facility] Blood Type OP [facility] Antibody Screen NEGATIVE [facility] 01/01/2023 10:2 2 AM EDT 01/01/2023 11:04 AM EDT Narrative [facility] - 01/01/2023 11:55 AM EDT Spec expiration changed by JAMESON on 01/01/23Reason: For SURGERYNURSING:Call Blood Bank (ext. [phone]) to band patient on admission.Type and Screen in effect until 2300 on 01/09/23Witnessed by EDELMIRA us [facility] External Provider LAB BLO OD BANK TEST ORDERABLES Final Result Performing Organization Address [facility] de Phone Number [facility] [address] [place] [phone] [phone] * (ABNORMAL) Vitamin A (01/01/2023 10:20 AM EDT) Pathologist [facility] Vitamin A (Retinol) 32(A) 38 - 98 mcg/dL [facility] Comment:Vitamin supplementat ion within 24 hours prior toblood draw may affect the accuracy of the results.This test was developed and its analytical performancecharacteristics have been determined by [employer] [place], [place]. It hasnot been cleared or approved by the U.S. Food and DrugAdministration. This assay has been validated pursuantto the CLIA regulations and is used for clinicalpurposes.THIS TEST WAS PERFORMED AT:[employer] [place] [address]ZMUNZDSNICOLA BARRY MD,PHD 01/01/2023 10:2 0 AM EDT 01/01/2023 10:20 AM EDT [facility] External Provider LAB BLO OD ORDERABLES Final Result Performing Organization Address [facility] Co de Phone Number [facility] [address] [place] [phone] * (ABNORMAL) Vitamin B1 (01/01/2023 10:20 AM EDT) Vitamin B1 <6(A) 8 - 30 nmol/L [facility] Comment:Vitamin supplementat ion within 24 hours prior toblood draw may affect the accuracy of the results.This test was developed and its analytical performancecharacteristics have been determined by [facility] It hasnot been cleared or approved by the .S. Food and DrugAdministration. This assay has been validated pursuantto the CLIA regulations and is used for clinicalpurposes.THIS TEST WAS PERFORMED AT:[employer] [address] [id number] BARRY MD,PHD 01/01/2023 10:2 0 AM EDT 01/01/2023 10:20 AM EDT [facility] External Provider LAB BLO OD ORDERABLES Final Result Performing Organization Address [facility] de Phone Number [facility] [address] [place] [phone] * Zinc (01/01/2023 10:20 AM EDT) Zinc 84 60 - 130 mcg/dL [facility] Comment:This test was develo ped and its analytical performancecharacteristics have been determined by [facility]. It hasnot been cleared or approved by the U.S. Food and DrugAdministration. This assay has been validated pursuantto the CLIA regulations and is used for clinicalpurposes.THIS TEST WAS PERFORMED AT:[employer] [place] [address]UMDVRIUNICOLA BARRY MD,PHD 01/01/2023 10:2 0 AM EDT 01/01/2023 10:20 AM EDT [facility] External Provider LAB BLO OD ORDERABLES Final Result Performing Organization Address [facility] Co de Phone Number [facility] [address] [place] [phone] [phone] * PTH, Intact Without Calcium (01/01/2023 10:20 AM EDT) PTHI 32 16 - 77 pg/mL [facility] Comment:Interpretive Guide I ntact PTH Calcium -------Normal Parathyroid Normal NormalHypoparathyroidism Low or Low Normal LowHyperparathyroidism Primary Normal or High High Secondary High Normal or Low Tertiary High HighNon-Parathyroid Hypercalcemia Low or Low Normal High Calcium (PTHI) 9.9 8.6 - 10.2 mg/dL [facility] Comment:THIS TEST WAS PERFOR MED AT:[employer] [place] [id number] LONDONO MD 01/01/2023 10:2 0 AM EDT 01/01/2023 10:20 AM EDT [facility] External Provider LAB BLO OD ORDERABLES Final Result Performing Organization Address [facility] Co de Phone Number [facility] [address] [place] [address] [phone] * Lipid Panel, Standard (01/01/2023 10:20 AM EDT) Triglycerides 73 mg/dL [facility] Comment:Desirable Triglyceri de: less than 150 mg/dLBorderline High Triglyceride 150-199 mg/dLHigh Triglyceride: 200-499 mg/dLVery High Triglyceride: greater than or equal to 5OO mg/dL Cholesterol 101 mg/dL [facility] Comment:Desirable Cholestero l: less than 200 mg/dLBorderline High Cholesterol: 200-239 mg/dLHigh Cholesterol: greater than 239 mg/dL LDL Cholesterol Calculated 53 mg/dl [facility] Comment:Desirable LDL: less than 100 mg/dLNear Optimal/Above Optimal LDL: 110- 129 mg/dLBorderline High LDL: 130-159 mg/dLHigh LDL: 160-189 mg/dLVery High LDL: greater than or equal to 190 mg/dL HDL Cholesterol 34 mg/dL [facility] Comment:Desirable HDL: great er than 40 mg/dL Note: This HDL assay may give artificially low results in patients with liver disease. 01/01/2023 10:2 0 AM EDT 01/01/2023 10:20 AM EDT [facility] External Provider LAB BLO OD ORDERABLES Final Result Performing Organization Address City/[facility]/ZIP Co de Phone Number [facility] [address] [place] [phone] * (ABNORMAL) C-reactive Protein (01/01/2023 10:20 AM EDT) C Reactive Protein 2.54(H) < or = 0.50 mg/dL [facility] 01/01/2023 10:2 0 AM EDT 01/01/2023 10:20 AM EDT [facility] External Provider LAB BLO OD ORDERABLES Final Result Performing Organization Address City/[facility]/ZIP Co de Phone Number [facility] [address] [place] [address] [phone] * (ABNORMAL) Comprehensive Metabolic Panel (01/01/2023 10:20 AM EDT) Sodium 136 135 - 145 mmol/L [facility] Potassium 4.7 3.3 - 5.1 mmol/L [facility] Chloride 99 96 - 108 mmol/L [facility] Carbon Dioxide 28 22 - 29 mmol/L [facility] Anion Gap 14 12 - 20 [facility] Urea Nitrogen (BUN) 13 9 - 16 mg/dL [facility] Creatinine, Serum 0.80 0.5 - 1.4 mg/dL [facility] Creatinine Clr Calc Pharmacy 134.3 [facility] Comment:Provided height and weight: 175.26 cm,142.882 kg.eGFR (calculated from the MDRD study equation) and eCrCl(calculated from the Cockcroft-Gault equation) are based ondifferent parameters and may not yield comparable results.If eCrCl result is absurd, please check patient'sheight/weight. Estimated Glomerular Filt Rate >60 [facility] Comment:NOTE: For -Am erican individuals, multiply the result by 1.210.Chronic Kidney Disease: Estimated GFR < 60 mL/min/1.38h9Ktgvjc Kidney Disease: Estimated GFR < 15 mL/min/1.73m2 Glucose 141(H) 60 - 115 mg/dL [facility] Calcium 10.0 8.4 - 10.2 mg/dL [facility] Bilirubin, Total 0.9 0.0 - 1.0 mg/dL [facility] Aspartate Amino Transferase 18 5 - 31 U/L [facility] Alanine Aminotransferase 14 0 - 31 U/L [facility] Total Protein 7.9 6.5 - 8.0 g/dL [facility] Albumin Level 4.0 3.5 - 5.0 g/dL [facility] Alkaline Phosphatase 85 39 - 117 U/L [facility] 01/01/2023 10:2 0 AM EDT 01/01/2023 10:20 AM EDT us [facility] External Provider LAB BLO OD ORDERABLES Final Result [facility] [address] [place] [phone] [phone] * TSH W/Reflex to FT4 (01/01/2023 10:20 AM EDT) TSH reflex Free T4 1.39 0.32 - 4.0 uIU/mL [facility] 01/01/2023 10:2 0 AM EDT 01/01/2023 10:20 AM EDT [facility] External Provider LAB BLO OD ORDERABLES Final Result Performing Organization Address City/[facility]/ZIP Co de Phone Number [facility] [address] [place] [phone] * Vitamin D, 25-Hydroxy, Total, Immunoassay (01/01/2023 10:20 AM EDT) Vitamin D 25-OH Total 23.8 >30 ng/mL [facility] Comment:Health Based Referen ce Values*< 20 ng/mL Oadwstotr43-67 ng/mL Insufficient> 30 ng/mL Sufficient*Nay HASTINGS. N [...] 0 AM EDT 01/01/2023 10:20 AM EDT [facility] External Provider LAB BLO OD ORDERABLES Final Result Performing Organization Address [facility] Co de Phone Number [facility] [address] [place] [phone] * Vitamin B12 (01/01/2023 10:20 AM EDT) Vitamin B12 505 200 - 900 pg/mL [facility] Comment:NORMAL 200-900 PG/ML INDETERMINATE 160-199 PG/ML DEFICIENT < 160 PG/ML 01/01/2023 10:2 0 AM EDT 01/01/2023 10:20 AM EDT [facility] External Provider LAB BLO OD ORDERABLES Final Result Performing Organization Address [facility] Co de Phone Number [facility] [address] [place] [phone] * Ferritin (01/01/2023 10:20 AM EDT) Ferritin 192 10 - 250 ng/mL [facility] 01/01/2023 10:2 0 AM EDT 01/01/2023 10:20 AM EDT [facility] External Provider LAB BLO OD ORDERABLES Final Result Performing Organization Address [facility] de Phone Number [facility] [address] [place] [phone] * Hemoglobin A1c (01/01/2023 10:20 AM EDT) Hemoglobin A1c 6.8 % [facility] Comment:Hemoglobin A1C Refer ence Range Adults: 4.8 - 6.0 % Non diabetic: < 6.0 % Goal: < 7.0 %Additional Action Suggested: > 8.0 %Note: Hemoglobin A1c results are invalid for patients with abnormal amounts of HbF. Blood transfusions may impact the HbA1c concentration in the patient sample. Estimated Average Glucose 148 mg/dL [facility] Comment:eAG = Estimated ave rage glucose which is %A1C expressed asaverage glucose, using the formula of the K8Q-YotfnptPslooig Glucose study (ADAG), Diabetes Care, Vol.31,#8,2007 01/01/2023 10:2 0 AM EDT 01/01/2023 10:20 AM EDT [facility] External Provider LAB BLO OD ORDERABLES Final Result Performing Organization Address [facility] de Phone Number [facility] [address] [place] [phone] * APTT (01/01/2023 10:20 AM EDT) Partial Thromboplastin Time 35.0 26.0 - 36.4 SEC [facility] 01/01/2023 10:2 0 AM EDT 01/01/2023 10:20 AM EDT [facility] External Provider LAB BLO OD ORDERABLES Final Result Performing Organization Address [facility] Phone Number [facility] [address] [place] [phone] * Prothrombin Time-INR (01/01/2023 10:20 AM EDT) [facility] [address] Prothrombin Time 12.9 10.0 - 13.1 SEC [facility] INTERNATIONAL NORM RATIO 1.1 0.9 - 1.1 [facility] Comment:INTERNATIONAL NORMAL IZED RATIO (INR) [...] 0 AM EDT 01/01/2023 10:20 AM EDT [facility] External Provider LAB BLO OD ORDERABLES Final Result Performing Organization Address [facility] de Phone Number [facility] [address] [place] [phone] * (ABNORMAL) CBC auto differential (01/01/2023 10:20 AM EDT) White Blood Count 11.3(H) 4.8 - 10.8 X10*3/uL [facility] Red Blood Count 5.09 4.20 - 5.50 X10*6/uL [facility] Hemoglobin 13.8 12.0 - 16.0 g/dl [facility] Hematocrit 44.1 37.0 - 47.0 % [facility] Mean Corpuscular Volume 86.6 80.0 - 98.0 fL [facility] Mean Corpuscular Hemoglobin 27.1 27.0 - 33.0 pg [facility] Mean Corpuscular HGB Conc 31.3 31.0 - 35.0 g/dl [facility] Red Cell Distribution Width 14.3 11.0 - 16.0 % [facility] Platelet Count 376 160 - 400 X10*3/uL [facility] Mean Platelet Volume 9.2(L) 9.4 - 12.3 fL [facility] Neutrophils Percent Auto 66.0 45 - 73 % [facility] Imm Gran Pct Auto 0.8(H) 0.0 - 0.4 % [facility] Lymphocytes Percent Auto 25.1 20 - 40 % [facility] Monocytes Percent Auto 5.5 2 - 11 % [facility] Eosinophils Percent Auto 2.0 0 - 4 % [facility] Basophils Percent Auto 0.6 0 - 2 % [facility] NRBC Pct Auto 0.0 0.0 - 0.2 /100WBC [facility] Neutrophils Absolute Auto 7.4 2.0 - 8.3 x10*3/uL [facility] Imm Gran Abs Auto 0.09(H) 0.00 - 0.03 X10*3/uL [facility] Lymphocytes Absolute Auto 2.8 1.2 - 4.9 X10*3/uL [facility] Monocytes Absolute Auto 0.6 0.1 - 1.2 X10*3/uL [facility] Eosinophils Absolute Auto 0.2 0.0 - 0.4 X10*3/uL [facility] Basophils Absolute Auto 0.1 0.0 - 0.2 X10*3/uL [facility] NRBC Abs Auto 0.000 0.0 - 0.012 X10*3/uL [facility] 01/01/2023 10:2 0 AM EDT 01/01/2023 10:20 AM EDT [facility] External Provider LAB BLO OD ORDERABLES Final Result Performing Organization Address [facility] de Phone Number [facility] [address] [place] [phone] * (ABNORMAL) Glucose, Whole Blood (11/13/2022 1:31 PM EDT) Glucose, Whole Blood 196(H) 60 - 115 mg/dL [facility] Comment:METER #: [id number] 5Testing performed in the Endocrinology Department [address] , [address], [facility]. 11/13/2022 1:31 PM EDT 11/13/2022 1:34 PM EDT [facility] External Provider LAB BLO OD ORDERABLES Final Result Performing Organization Address [facility] de Phone Number [facility] [address] [place] [phone] * Hemoglobin A1c (11/13/2022 1:14 PM EDT) Hemoglobin A1c 7.4 % [facility] Comment:Hemoglobin A1C Refer ence Range Adults: 4.8 - 6.0 % Non diabetic: < 6.0 % Goal: < 7.0 %Additional Action Suggested: > 8.0 %Note: Hemoglobin A1c results are invalid for patients with abnormal amounts of HbF. Blood transfusions may impact the HbA1c concentration in the patient sample. Estimated Average Glucose 166 mg/dL [facility] Comment:eAG = Estimated ave rage glucose which is %A1C expressed asaverage glucose, using the formula of the I1Z-WzrbnmyOxuakgq Glucose study (ADAG), Diabetes Care, Vol.31,#8,Mar. 2007 11/13/2022 1:14 PM EDT 11/13/2022 1:14 PM EDT us [facility] External Provider LAB BLO OD ORDERABLES Final Result [facility] [address] [place] [phone] documented in this encounter Visit Diagnoses Diagnosis Type 2 diabetes mellitus without complication, unspecified whether credit card clerk insulin use (CMS/[facility])- Primary documented in this encounter Care Teams Instructor Physical Relationship Specialty Start Date End Date Braulio Carbajal MD [address] [place] [phone] PCP - General Internal Medicine 12/14/19 04/28/24 documented as of this encounter
--- OUTSIDE RECORDS SUMMARY | 2025-04-20 12:36 | XMS_ITS | Clinical Summary ---
Author Organization [employer] Address [address] [place] [address] [address] [place] [address] Care Team Providers Care Fundraising Assistant Name Role Phone Unavailable Primary Care Provider [...] 2 diabetes mellitus without complication, unspecified whether long term care phlebotomist insulin use ([facility]) Inject 1.5 mg under the [...] the past 12 months, has t he [employer], gas, oil or water company threatened to [...] 2006 HPV/Cotest 2006 Tobacco Screening 08/17/2023 08/17/2022 SDOH Screening 05/02/2024 05/02/2023 COVID-19 Vaccine ( season) 2025 07/13/2021, 09/22/2020, 09/06/2020, Additional history exists Influenza Vaccine (#1) 2025 , 07/14/2022, 07/13/2021, [...] 2 diabetes mellitus without complication, unspecified whether long term care phlebotomist insulin use (CMS/HCC) ZZZ HISTORICAL HEPATITIS C [...] Narrative 05/25/2024 4:12 PM EDT [facility] [address] [place], [place] [address] Mammography Report Signed Patient: Julia Lóepz MR#: [id number] : 1975 Acct:[id number] Age/Sex: 48 / F ADM Date: 05/25/24 Loc: HO.MAMMO Attending Dr: Ryan Prescott MD Ordering Physician: Ryan Prescott MD Results: 2Ben ign Findings Date of Service: 05/25/24 Follow Up: 1 Year From Orig ina Mammogram Procedure(s): MM tomosynthesis diagnostic BI Accession Number(s): [id number] cc: Braulio Carbajal MD; Ryan Prescott MD [...] 05/25/24 1609 DD/ 1300 TD/TT: 05/25/24 1350 [employer] Teacher: Procedure Note Donotuseinterpreter, Image - 05/25/2024 [facility] [address] [place] [address] Mammography Report Signed Patient: Julia LópezMR#: [id number] : 1975Acct:[id number] Age/Sex: 48 / FADM Date: 05/25/24 Loc: HO.MAMMO Attending Dr: Ryan Prescott MD Ordering Physician: Ryan Prescott MDResults: 2Ben ign Findings Date of Service: 05/25/24Follow Up: 1 Year From Orig inal Mammogram Procedure(s): MM tomosynthesis diagnostic BI Accession Number(s): [id number] cc: Braulio Carbajal MD; Ryan Prescott MD [...] 05/25/24 1609 DD/ 1300 TD/TT: 05/25/24 1350 [employer] Teacher: [facility] External Provider IMG BI PROCEDURES Edited Result - Final * Lipid Panel, Standard (01/01/2023 10:20 AM EDT) Triglycerides 73 mg/dL [facility] Comment:Desirable Triglyceri de: less than 150 mg/dLBorderline High Triglyceride 150-199 mg/dLHigh Triglyceride: 200-499 mg/dLVery High Triglyceride: greater than or equal to 5OO mg/dL Cholesterol 101 mg/dL [facility] Comment:Desirable Cholestero l: less than 200 mg/dLBorderline High Cholesterol: 200-239 mg/dLHigh Cholesterol: greater than 239 mg/dL LDL Cholesterol Calculated 53 mg/dl [facility] Comment:Desirable LDL: less than 100 mg/dLNear Optimal/Above Optimal LDL: 110- 129 mg/dLBorderline High LDL: 130-159 mg/dLHigh LDL: 160-189 mg/dLVery High LDL: greater than or equal to 190 mg/dL HDL Cholesterol 34 mg/dL [facility] Comment:Desirable HDL: great er than 40 mg/dL Note: This HDL assay may give artificially low results in patients with liver disease. 01/01/2023 10:2 0 AM EDT 01/01/2023 10:20 AM EDT [facility] External Provider LAB BLO OD ORDERABLES Final Result Performing Organization Address [facility] de Phone Number [facility] [address] [place] [address] [phone] * HEPATITIS C AB W/REFL TO [...] a test for HCV RNA (test code 45484) is suggested. For additional information please refer to http://education.[employer].afterBOT/faq/WKE79t6 (This link is being provided for informational/ educational purposes only.) 01/24/2022 8:19 AM EDT Braulio Campbell MD HISTORICAL/NON ORD ERABLE LABS Final Result Performing Organization Address City/[facility]/ZIP Co de Phone Number [facility] [address] * HIV 1/2 ANTIGEN/ANTIBODY,FOURTH GENERATION W/RFL (01/24/2022 8:19 AM EDT) HIV-1/2 ANTIGEN AND ANTIBODIES, 4TH GENERATION W/ REFLEX NON-REACT SÁNCHEZ NON-REACT SÁNCHEZ [facility] Comment: HIV-1 antigen and [...] purpose. For additional information please refer to http://education.Delivered/faq/EAV386 (This link is being provided for informational/ educational purposes only.) The performance of this assay has not been clinically validated in patients less than 2 years old. 01/24/2022 8:19 AM EDT Braulio Campbell MD LAB BLOOD ORDERABL ES Final Result [facility] [address] from Last 3 Months or Most Recently Relevant to Health Maintenance Insurance [employer] [place] [id number]
--- OUTSIDE RECORDS SUMMARY | 2025-04-20 12:36 | XMS_ITS | Clinical Summary ---
Author Organization [facility] Address [address] [place] [address] Phone Care Team Providers Care Agricultural Education Professor Name Role Phone Braulio Carbajal Primary Care [...] Active Problems Problem Noted Date Diagnosed Date Morbid obesity with BMI of 4 5.0-49.9, adult ([facility] V24, [facility] V28) 04/02/2025 Class 3 severe obesity with serious comorbidity and body mass index (BMI) of 50.0 to 59.9 in adult ([facility] V24, [facility] V28) 01/18/2025 Class 3 severe obesity with serious comorbidity and body mass index (BMI) of 50.0 to 59.9 in adult ([facility] V24, [facility] V28) 12/18/2024 Class 3 severe obesity with serious comorbidity and body mass index (BMI) of 50.0 to 59.9 in adult ([facility] V24, [facility] V28) 07/20/2024 HTN (hypertension) 05/22/2024 IBS (irritable bowel syndrome) 05/22/2024 ADHD (attention deficit hype ractivity disorder), combined type 08/16/2014 Sleep apnea 06/28/2014 Morbid obesity ([facility] V24, [facility] V28) 2013 Overview (05/22/2024): BMI 52.25 on 06/05/13. Condition not found 06/05/2013 Overview (05/22/2024): Diabetes mellitus type II, uncontrolled Depression 04/05/2012 Encounters Date Type Department Care Team Description 03/31/2025 1:30 PM EDT Office Visit Bariatric Surgery [address] [phone] Gosia Stoner MD Low vitamin D level (Primary Dx); Morbid obesity ([facility] V24, [facility] V28); Sleep apnea, unspecified type; Hypertension, unspecified type; Type 2 diabetes mellitus with obesity ([facility] V24, [facility] V28) 01/18/2025 11:00 AM EDT Nutrition Bariatric Surgery [address] [phone] Class 3 severe obesity with serious comorbidity and body mass index (BMI) of 50.0 to 59.9 in adult, unspecified obesity type ([facility] V24, [facility] V28) (Primary Dx) from Last 3 Months Immunizations Name Administration Dates Next Due Tdap Tetanus diptheria acell ular pertussis (Boostrix; Adacel) 7yo and older 12/11/2012 Surgical History Surgery Date Site/Laterality Comments CHOLECYSTECTOMY 1999 PROCEDURE: HISTORICAL CHOLECYSTECTOMY Medical History Medical History Date Comments HTN (hypertension) 2011 DX:HTN (hyper tension) DM (diabetes mellitus) ([facility] V24, [facility] V28) 2006 DX:DM (diabetes mellitus) ([facility]) [...] Reading Time Taken Comments Blood Pressure 116/76 03/31/2025 1:27 PM EDT Pulse 91 03/31/2025 1:27 PM EDT Temperature 36.7 C (98.1 F) 07/08/2024 1:01 PM EST Respiratory Rate - - Oxygen Saturation - - Inhaled Oxygen Concentration - - Weight 151 kg (333 lb 3.2 oz) 03/31/2025 1:27 PM EDT Height 175.3 cm (5' 9 ) 03/31/2025 1:27 PM EDT Body Mass Index 49.21 03/31/2025 1:27 PM EDT Plan of Treatment Scheduled Procedures Name Priority Associated Diagnoses Date/Ti me GASTRECTOMY SLEEVE ROBOT Morbid obesity with BMI of 45.0-49.9, adult ([facility] V24, [facility] V28) Health Maintenance Due Date Last Done Comments Breast Cancer Screening 1976 Diabetes: Annual Foot Exam 1986 Diabetes: Annual Retina Eye Exam 1986 Hepatitis B Vaccines (1 of 3 - 19+ 3-dose series) 1995 Pneumococcal Vaccine: Pediatrics (0 to 5 Years) and At-Risk Patients (6 to 49 Years) (1 of 2 - PCV) 1995 Cervical Cancer Screening: Pap Smear 1997 Colorectal Cancer Screening: Colonoscopy 07/03/2022 Social Influencers of Health Screening 07/03/2022 Depression Screening 08/05/2024 COVID-19 Vaccine ( season) 2025 07/13/2021, 09/22/2020, 09/06/2020, Additional history exists Influenza Vaccine (#1) 2025 , 05/29/2023, 07/14/2022, Additional history exists Diabetes: Blood Sugar Control Test (HGBA1C) 09/02/2025 03/02/2025, 07/20/2024, 02/26/2014 Diabetes: Annual Urine Albumin-Creatinine Ratio (uACR) 03/02/2026 03/02/2025, 02/26/2014 Diabetes: Annual GFR (Glomerular Filtration Rate) 03/02/2026 03/02/2025, 07/20/2024, 02/26/2014 Hypertension/CHF/CAD Annual BMP Blood Test 03/02/2026 03/02/2025, 07/20/2024, 02/26/2014 Cholesterol Screening (Lipid Panel) 03/02/2030 03/02/2025, 07/20/2024, 01/01/2023, Additional history exists DTaP,Tdap,and Td Vaccines (4 - Td or Tdap) 03/15/2032 03/15/2022, 12/11/2012, 08/05/2012 HIV Screening Completed 01/24/2022 Hepatitis C Screening Completed 03/02/2025 HIB Vaccines Aged Out No longer eligi [...] Routine 07/20/2024 8:33 AM EST Morbid obesity ([facility] V24, [facility] V28) HEMOGLOBIN A1C Routine 07/20/2024 8:33 AM EST Morbid obesity ([facility] V24, [facility] V28) LIPID PANEL WITH REFLEX TO DIRECT LDL Routine 07/20/2024 8:33 AM EST Morbid obesity ([facility] V24, [facility] V28) HM URINE ALBUMIN CREATININE RATIO Routine 02/26/2014 from Last 3 Months or Most Recently Relevant to Health Maintenance Results * (ABNORMAL) Lipid panel with reflex to direct LDL (07/20/2024 8:33 AM EST) Cholesterol 179 0 - 200 mg/dL LAB CHEMISTRY METHOD 07/20/2024 11:24 AM [facility] Triglycerides 89 0 - 150 mg/dL LAB CHEMISTRY METHOD 07/20/2024 11:24 AM [facility] HDL 53 >=40 mg/dL LAB CHEMISTRY METHOD 07/20/2024 11:24 AM [facility] LDL Calculated 108(H) 0 - 100 mg/dL LAB CHEMISTRY METHOD 07/20/2024 11:24 AM [facility] VLDL Cholesterol Francisco J 17.8 mg/dL LAB CHEMISTRY METHOD 07/20/2024 11:24 AM [facility] Non HDL Chol. (LDL+VLDL) 126 <145 mg/dL LAB CHEMISTRY METHOD 07/20/2024 11:24 AM [facility] Chol/HDL Ratio 3.4 0.0 - 4.4 LAB CHEMISTRY METHOD 07/20/2024 11:24 AM [facility] Blood Venous blood specimen / Unknown Venipuncture / Unknown 07/20/2024 8:33 AM EST 07/20/2024 8:33 AM EST us Gosia Stoner MD LAB BLOOD ORDERABLES Fi nal Result Performing Organization Address [facility]/ZIP Co de Phone Number [facility] [address] [place] [address], [place] [phone] * (ABNORMAL) Hemoglobin A1c (07/20/2024 8:33 AM [...] ORDERABLES Fi nal Result Performing Organization Address [facility]/ZIP Co de Phone Number [facility] [address] [place] [address], [place] [phone] * (ABNORMAL) Comprehensive metabolic panel (07/20/2024 8:33 AM EST) Pathologist [facility] Sodium 136 133 - 145 mmol/L LAB CHEMISTRY METHOD 07/20/2024 11:[address] [facility] Potassium 4.5 3.5 - 5.5 mmol/L LAB CHEMISTRY METHOD 07/20/2024 11:[address] [facility] Chloride 100 96 - 110 mmol/L LAB CHEMISTRY METHOD 07/20/2024 11:[address] [facility] CO2 25 21 - 32 mmol/L LAB CHEMISTRY METHOD 07/20/2024 11:24 AM [facility] Anion Gap 11 3 - 11 LAB CHEMISTRY METHOD 07/20/2024 11:24 AM [facility] Glucose 148(H) 70 - 100 mg/dL LAB CHEMISTRY METHOD 07/20/2024 11:24 AM [facility] BUN 15 5 - 25 mg/dL LAB CHEMISTRY METHOD 07/20/2024 11:24 AM [facility] Creatinine 0.71 0.50 - 1.10 mg/dL LAB CHEMISTRY METHOD 07/20/2024 11:24 AM [facility] eGFR 105 >=60 mL/min/1. 73m2 LAB CHEMISTRY METHOD 07/20/2024 11:24 AM [facility] Comment:Calculation based on the Chronic Kidney Disease Epidemiology Collaboration (CKD-EPI) equation refit without adjustment for race. BUN/Creatinine Ratio 21.1 LAB CHEMISTRY METHOD 07/20/2024 11:24 AM [facility] Calcium 9.7 8.5 - 10.5 mg/dL LAB CHEMISTRY METHOD 07/20/2024 11:24 AM [facility] AST (SGOT) 16 10 - 42 unit/L LAB CHEMISTRY METHOD 07/20/2024 11:24 AM [facility] ALT (SGPT) 29 10 - 60 unit/L LAB CHEMISTRY METHOD 07/20/2024 11:24 AM [facility] Alkaline Phosphatase 124(H) 42 - 121 unit/L LAB CHEMISTRY METHOD 07/20/2024 11:24 AM [facility] Total Protein 7.7 6.0 - 8.0 g/dL LAB CHEMISTRY METHOD 07/20/2024 11:24 AM [facility] Albumin 3.6 3.2 - 5.0 g/dL LAB CHEMISTRY METHOD 07/20/2024 11:24 AM [facility] Total Bilirubin 0.4 0.0 - 1.4 mg/dL LAB CHEMISTRY METHOD 07/20/2024 11:[address] [facility] Blood Venous blood specimen / Unknown Venipuncture / Unknown 07/20/2024 8:33 AM EST 07/20/2024 8:33 AM EST Gosia Stoner MD LAB BLOOD ORDERABLES Fi nal Result [facility] ([facility] [address] [place] [address], * Urine Albumin Creatinine Ratio (02/26/2014) Urine Albumin Creatinine Ratio Abstracted us Historical Provider HEALTH MAINTENANCE Final Result from Last 3 Months or Most Recently Relevant to Health Maintenance Insurance [employer] Care Teams Agricultural Education Professor Relationship Specialty Start Date End Date Braulio Carbajal [address], [place] PCP - General Internal Medicine 03/20/22
--- OUTSIDE RECORDS SUMMARY | 2025-04-20 12:36 | XMS_ITS | Encounter Summary ---
Author Organization [employer] Address [address] [place] [id number] Care Team Providers Care Sheet Metal Shop Foreman Name Role Phone Braulio Carbajal MD Primary Care Prov ider Reason for Visit * Reason Comments Med Refill Encounter Details Date Type Department Care Team (Late st Contact Info) Description 10/29/2022 Refill [facility] [address] [place], [place] [phone] Braulio Carbajal MD [address] [place] [address] Social History Tobacco Use Types Packs/Day Years [...] on filedocumented in this encounter Care Teams Sheet Metal Shop Foreman Relationship Specialty Start Date End Date Braulio Carbajal MD [address] [place] [address] PCP - General Internal Medicine 12/14/19 04/28/24 documented as of this encounter
--- OUTSIDE RECORDS SUMMARY | 2025-04-20 12:36 | XMS_ITS | Clinical Summary ---
Author Organization [facility] Address [address] [place] [address] Care Team Providers Care Record Center Coordinator Name Role Phone Nicole Padron MD Primary Care Provider [phone] Allergies Active Allergy Reactions Criticality Noted Date Comments Penicillins Anaphylaxis 11/11/2012 Medications Tresiba FlexTouch 200 UNIT/ML pen-injector Inject 20 Units under the skin every night. 10/19/2024 Active Fluoxetine (PROzac) 20 MG capsule Take 20 mg by mouth 1 (one) time each day. 02/11/2025 Active Continuous Glucose Sensor (FreeStyle Alexei 3 Plus Sensor) Device 1 Units. 02/11/2025 Acti ve Lisinopril (PRINIVIL,ZESTR IL) 10 MG tablet Take 10 mg by mouth 1 (one) time each day. 01/05/2025 Active Mounjaro 15 MG/0.5ML pen-injector Inject 15 mg under the skin every 7 (seven) days 02/11/2025 Active Lisdexamfetamin e Dimesylate (VYVANSE) 70 MG capsule Take 70 mg by mouth 1 (one) time each day in the morning. 01/05/2025 Active Gabapentin (NEURONTIN) 300 MG capsule Take 300 mg by mouth 3 (three) times a day. 01/05/2025 Active Minoxidil (LONITEN) 2.5 MG tablet Take 2.5 mg by mouth 1 (one) time each day. 01/05/2025 Active Jardiance 10 MG tablet Take 10 mg by mouth 1 (one) time each day. 12/01/2024 Active buPROPion ER (WELLBUTRIN XL) 300 MG 24 hr tablet Take 300 mg by mouth 1 (one) time each day. 02/11/2025 Active LORazepam (ATIVAN) 1 MG tablet Take 1 mg by mouth every 6 (six) hours if needed. Active Risankizumab-rz aa (Skyrizi Pen) 150 MG/ML auto-injector Inject 150 mg under the skin 1 (one) time. Active Nitrofurantoin Monohyd Macro (Macrobid) 100 MG capsule Take one capsule (100 mg total) by mouth 2 (two) times a day for 5 days. 10 capsule 04/02/2025 Active Active Problems Problem Noted Date Diagnosed Date Class 3 severe obesity in adult 03/02/2025 Overview (03/02/2025): 03/02/2025 following with bariatric provider through [facility] in [place]. Requesting referral. Order placed Type 2 diabetes mellitus wit hout complication, with long-term current use of insulin 03/02/2025 Anxiety and depression 03/02/2025 Overview (03/02/2025): 03/02/2025 stable on current medications. Following with outside psychiatrist Psoriasis 03/02/2025 Overview (03/02/2025): 03/02/2025 stable with Skyrizi. Follows with outside collection systems administrator HTN (hypertension) 05/22/2024 Overview (03/02/2025): 03/02/2025 stable on current medications ADHD (attention deficit hype ractivity disorder), combined type 08/16/2014 Overview (03/02/2025): 03/02/2025 stable on Vyvanse. Following with outside psychiatrist Encounters Date Type Department Care Team Description 04/06/2025 Results Follow-Up [address] [phone] Nicole Padron MD CULTURE, URINE, ROUTINE, URINALYSIS, COMPLETE INCLUDES DIPSTICK AND MICROSCOPIC 03/30/2025 Orders Only [facility] [address] Nicole Padron MD 03/23/2025 Abstract [facility] [address] [place] [address] Unknown, Abstract Provider 03/23/2025 Abstract [facility] [address] [place] [address] Unknown, Abstract Provider 03/02/2025 11:00 AM EDT Radiology [facility] [address] [place] [phone] Low back pain, unspecified back pain laterality, unspecified chronicity, unspecified whether sciatica present 03/02/2025 9:45 AM EDT CPE - Comprehensive Physical Exam [address] [address] Bc Buckley DNP Routine history and physical examination of adult (Primary Dx); Low back pain, unspecified back pain laterality, unspecified chronicity, unspecified whether sciatica present; Type 2 diabetes mellitus without complication, with long-term current use of insulin (HCC); Need for hepatitis C screening test; Obesity, unspecified class, unspecified obesity type, unspecified whether serious comorbidity present; Hypertension, unspecified type; Class 3 severe obesity in adult; ADHD (attention deficit hyperactivity disorder), combined type; Anxiety and depression; Psoriasis 03/02/2025 Results Follow-Up [address] [address] Bc Buckley DNP XRAY SPINE, LUMBOSACRAL 2 OR 3 VIEWS (DX: CHRONIC LOW BACK PAIN > 28 DAYS *NO INJURY*), HEPATITIS C AB WITH REFLEX TO RNA PCR, SERUM, BASIC METABOLIC PANEL WITH (GFR), Additional followed-up results: 3 03/02/2025 Orders Only [address] [address] Bc Buckley DNP from Last 3 Months Immunizations Immunization Administration Dates Next Due Tdap 12/11/2012 Social History Tobacco Use Types Packs/Day Years Used Date Smoking Tobacco: Never Smokeless Tobacco: Never Tobacco Cessation:Counseling Given: Not Answered Alcohol Use Standard Drinks/Week Comments Not Currently [...] Sign Reading Time Taken Comments Blood Pressure 119/79 03/02/2025 9:52 AM EDT Pulse 93 03/02/2025 9:52 AM EDT Temperature - - Respiratory Rate - - Oxygen Saturation - - Inhaled Oxygen Concentration - - Weight 150 kg (329 lb 12.8 oz) 03/02/2025 9:52 A M EDT Height 174 cm (5' 8.5 ) 03/02/2025 9:52 AM EDT Body Mass Index 49.42 03/02/2025 9:52 AM EDT Plan of Treatment Upcoming Encounters Date Type Department Care Team (Late st Contact Info) Description 03/07/2026 9:15 AM EDT CPE - Comprehensive Physical Exam [facility] [address] [place] [address] Bc Buckley, [facility] [address] [place] [address] CPE Health Maintenance Due Date Last Done Comments COVID-19 Vaccine (#1) 1981 Pap Smear 1992 Eye/Retina Exam 1994 Hep B (1 of 3 - 19+ 3-dose series) 1995 Pneumococcal (1 of 2 - PCV) 1995 Zoster (Shingrix) (1 of 2) 1995 Mammogram/Breast Imaging 2016 Colon Cancer Screening 2021 DTaP/Tdap/Td (2 - Td or Tdap) 12/11/2022 12/11/2012 Influenza (#1) 2025 HA1C 09/02/2025 03/02/2025, 07/20/2024, 07/20/2024 GFR 03/02/2026 03/02/2025, 07/20/2024 LDL Cholesterol 03/02/2026 03/02/2025, 07/20/2024, 07/20/2024 Microalbumin 03/02/2026 03/02/2025 Hepatitis C Screening Completed 03/02/2025 Physical Discontinued 03/02/2025 HPV Vaccine (No Doses Required) Completed Hep A Aged Out No longer eligi ble based on patient's age to complete this topic Hib Aged Out No longer eligi ble based on patient's age to complete this topic Meningococcal ACWY Aged Out No longer eligible based on patient's age to complete this topic Goals Goal Patient Goal Type Associated Problems [...] fasting blood sugar below 120 is ideal. Procedures * Due to [place] [employer] [facility] law, this organization might not be sharing negative HIV tests. Procedure Name Priority Date/Time Associated Diagnosis Comments URINALYSIS, COMPLETE INCLUDES DIPSTICK AND MICROSCOPIC Routine 03/30/2025 12:26 PM EDT Dysuria CULTURE, URINE, ROUTINE Routine 03/30/2025 12:26 PM EDT Dysuria XRAY SPINE, LUMBOSACRAL 2 OR 3 VIEWS (DX: CHRONIC LOW BACK PAIN > 28 DAYS *NO INJURY*) Routine 03/02/2025 11:06 AM EDT Low back pain, unspecified back pain laterality, unspecified chronicity, unspecified whether sciatica present HEMOGLOBIN A1C Routine 03/02/2025 10:42 AM EDT [...] with long-term current use of insulin (HCC) HEPATITIS C AB WITH REFLEX TO RNA PCR, SERUM Routine 03/02/2025 10:42 AM EDT Need for hepatitis C screening test from Last 3 Months Results * Due to [place] [employer] [facility] law, this organization might not be sharing negative HIV tests. * (ABNORMAL) CULTURE, URINE, ROUTINE (03/30/2025 12:26 PM EDT) Pathologist [facility] Bacteria culture (Urine) SEE NOTE(A) [facility] Comment: CULTURE, URINE, ROUTINE Micro Number: [id number] Test Status: Final Specimen Source: Not given [...] 1:20 AM EDT Narrative Resulting Agency Comment [id number] us Nicole Padron MD LABORATORY Final Result [facility] [address] [place] [address] * (ABNORMAL) URINALYSIS, COMPLETE INCLUDES DIPSTICK AND [...] 1:20 AM EDT Narrative Resulting Agency Comment [id number] Nicole Padron MD LAB SAME DAY RESULT Final Result [facility] [address] [place] [id number] * XRAY SPINE, LUMBOSACRAL 2 OR 3 VIEWS (DX: CHRONIC LOW BACK PAIN > 28 DAYS *NO INJURY*) (03/02/2025 11:06 AM EDT) Anatomical Region Laterality Modality Spine Computed Radiogr aphy Narrative 03/02/2025 12:29 PM EDT Patient History: Back Pain *No Injury* CONTRAST: 4 views lumbar spine Comparison: None provided Findings: Normal alignment. No acute fractures or dislocation. Mild disc space narrowing at L4-5 and L5-S1. Mild facet hypertrophy at L4 and L5. Significant fecal retention within the colon. Impression: No fracture. Degenerative changes within the lower lumbar spine. Diffuse fecal retention throughout the colon. Procedure Note Alok Durbin MD - 03/02/2025 Patient History: Back Pain *No Injury* CONTRAST: 4 views lumbar spine Comparison: None provided Findings: Normal alignment. No acute fractures or dislocation. Mild disc space narrowing at L4-5 and L5-S1. Mild facet hypertrophy at L4 and L5. Significant fecal retention within the colon. Impression: No fracture. Degenerative changes within the lower lumbar spine. Diffuse fecal retention throughout the colon. Bc Buckley DNP IMG XRAY NO CONTRAST ORDERAB LES Final Result * HEPATITIS C AB WITH REFLEX TO RNA PCR, SERUM (03/02/2025 10:42 AM EDT) Hepatitis C virus Ab NON-REACT SÁNCHEZ NON-REACT SÁNCHEZ [facility] Comment: HCV antibody was non-reactive. There is no laboratory evidence of HCV infection. In most cases, no further action is required. However, if recent HCV exposure is suspected, a test for HCV RNA (test code 72073) is suggested. For additional information please refer to http://education.Hashgo/faq/YWI16b4 (This link is being provided for informational/ educational purposes only.) 03/02/2025 10:4 2 AM EDT 03/02/2025 5:44 PM EDT Narrative Resulting Agency Comment [id number] Bc Buckley DNP LABORATORY Final Result [facility] [address] [place] [address] * (ABNORMAL) HEMOGLOBIN A1C (03/02/2025 10:42 AM EDT) Hemoglobin A1C 7.6(H) <5.7 % [facility] Comment: For someone without known diabetes, a [...] 5:44 PM EDT Narrative Resulting Agency Comment [id number] Bc Buckley [facility] LABORATORY Final Result Performing Organization Address City/[facility]/ZIP Co de Phone Number [facility] [address] [place] [address] * ALBUMIN (MICROALBUMIN), RANDOM URINE, WITH CREATININE [...] 5:44 PM EDT Narrative Resulting Agency Comment [id number] Bc Buckley [facility] Final Result Performing Organization Address [facility]/ZIP Co de Phone Number [facility] [address] [place] [address] * (ABNORMAL) LIPID PANEL WITH REFLEX TO [...] factors. LDL-C is now calculated using the Gely calculation, which is a validated novel method providing better accuracy than the Friedewald equation in the estimation of LDL-C. Darci LOPEZ et al. COY. 2013;310(19): 2631-1552 (http://education.Learndot.SCI Solution/faq/GQY049) CHOL/HDL Ratio 3.8 <5.0 (calc) [facility] Cholesterol Non-HDL 134(H) <130 mg/dL (calc) [facility] Comment: For patients with diabetes plus 1 major ASCVD risk factor, treating to a non-HDL-C goal of <100 mg/dL (LDL-C of <70 mg/dL) is considered a therapeutic option. 03/02/2025 10:4 2 AM EDT 03/02/2025 5:44 PM EDT Narrative Resulting Agency Comment [id number] Bc Buckley [facility] Final Result [facility] [address] [place] [address] * (ABNORMAL) BASIC METABOLIC PANEL WITH (GFR) [...] needs for GFR calculation. Resulting Agency Comment [id number] us Bc Buckley DNP LABORATORY Final Result Performing Organization Address City/State/[facility] Co de Phone Number [facility] [address] [place] [address] from Last 3 Months Insurance COMMERCIAL MD TAYLA [id number] Care Teams Record Center Coordinator Relationship Specialty Start Date End Date Nicole Padron MD [address] [facility] [place] [address] PCP - General Family Medicine 10/28/24
== END 2025-04-20 11:01 | disposition home or self-care (01) ==
LOC: HO.HOP 09:48
PROVIDERS: PCP Family Medicine; Visit Provider Counselor Mental Health
DX: F90.2 Attention-deficit hyperactivity disorder, combined type (principal); F41.0 Panic disorder [episodic paroxysmal anxiety]; F32.A Depression, unspecified
CPT/HCPCS: 90837

== ENCOUNTER 2025-04-27 09:21 | Outpatient (AMB) | payer OTHER, SELFPAY ==
--- NOTE | 2025-04-27 09:10 | A.OFFWM_ITS ---
Intake Intake Visit Reasons: VIDEO OP Therapy Allergies Penicillins Allergy (Intermediate, Verified 03/16/25 13:12) Shortness of Breath pt states no food allergies Allergy (Unknown, Uncoded 03/16/25 13:12) Unknown PFSH Medical History Type 2 diabetes mellitus with retinopathy Asthma Insomnia Neuropathy Breast calcification, right Adenocarcinoma determined by biopsy of liver Diabetic retinopathy Anxiety and depression GERD (gastroesophageal reflux disease) SOLE on CPAP ADHD Hyperlipidemia HTN (hypertension) with goal to be determined Diabetes mellitus Morbid obesity Surgical History Hx of LASIK History of cholecystectomy Family History Mother Diabetes Heart problem Father Hypertension Maternal Grandmother Primary cancer of bone marrow Maternal Grandfather Prostate cancer Social History Are you a primary home health care social worker to a significant other at home: No Do you presently have visiting nurse or other home services: No Alcohol intake: never Patient Tobacco Use Status: Never used Tobacco Female Reproductive History Menstrual Age of Menarche: 13 Behavioral Health Assessment Weight Management Therapy Therapy Notes Details Subjective: The patient reports experiencing increased stress and difficulty sleeping, which has negatively impacted her ability to wake up in the mornings. She also shared new concerns regarding her marriage and additional stressors related to her work environment. Objective: The patient presented for a follow-up visit and was engaged and communicative throughout the session. Reflective listening was used to help her process current functioning, challenges, and needs. Psychoeducation was provided on the relationship between stress, sleep hygiene, and daily functioning. Cognitive- behavioral strategies were introduced to address negative thought patterns contributing to her stress and sleep difficulties. Problem-solving techniques were discussed to help her manage marital and work-related concerns. Relaxation techniques, including guided breathing exercises, were practiced to support stress reduction. The patient was encouraged to identify and implement small, manageable changes to her evening routine to improve sleep quality. Assessment/Response: * Mental status: Mental status examination revealed the patient to be alert and oriented, with mood described as stressed but affect appropriate to content. Thought processes were logical and coherent, with no evidence of psychosis, dmitri, or severe depression. Insight and judgment were intact. * Risk reported/identified: None. Assessment & Plan Assessment & Plan (1) ADHD: Code(s): F90.9 - Attention-deficit hyperactivity disorder, unspecified type Qualifiers: Attention deficit-hyperactivity disorder type: combined inattentive- hyperactive Qualified Code(s): F90.2 - Attention-deficit hyperactivity disorder, combined type (2) Panic disorder: Code(s): F41.0 - Panic disorder [episodic paroxysmal anxiety] (3) Depression, unspecified: Code(s): F32.A - Depression, unspecified Plan The patient will continue to implement recommended coping strategies and sleep hygiene practices. Follow-up appointments will be scheduled on a bi-weekly basis to monitor progress, address ongoing concerns, and provide continued support. The patient is encouraged to reach out if symptoms worsen or if additional support is needed between sessions. * Next jase: 05/11/25 at 9am, video Telehealth Telehealth Telehealth Platform: BrightTALK Location of provider rendering services: other (Home office. [place], [place]) Location of patient: address on file Patient Identification confirmed using: Name, : Yes Telehealth method: video Patient verbally consented to treatment: Yes Patient verbally consented to billing insurance company: Yes Patient informed of any privacy concerns related to visit: Yes Minutes spent on Phone/Video with Pt.: 60 Coding Level of Care Code Established Pt Tele Psytx >53 mins (22374) Patient Type Established Diagnoses Attention deficit hyperactivity disorder (ADHD), combined type F90.2 Attention deficit-hyperactivity disorder type: combined inattentive- hyperactive Panic disorder F41.0 Depression, unspecified F32.A Time Spent (min) 60
--- OUTSIDE RECORDS SUMMARY | 2025-04-27 10:58 | XMS_ITS | Clinical Summary ---
Author Organization [facility] Address [address] [place] [id number] Care Team Providers Care Web Sizer Name Role Phone Nicole Padron MD Primary Care Provider [phone] Allergies Active Allergy Reactions Criticality Noted Date [...] (03/02/2025): 03/02/2025 following with bariatric provider through [facility] in [place]. Requesting referral. Order placed Type 2 diabetes mellitus wit hout complication, with long-term current use of insulin 03/02/2025 Anxiety and depression 03/02/2025 Overview (03/02/2025): 03/02/2025 stable on current medications. Following with outside psychiatrist Psoriasis 03/02/2025 Overview (03/02/2025): 03/02/2025 stable with Skyrizi. Follows with outside senior ux designer HTN (hypertension) 05/22/2024 Overview (03/02/2025): 03/02/2025 stable on current medications ADHD (attention deficit hype ractivity disorder), combined type 08/16/2014 Overview (03/02/2025): 03/02/2025 stable on Vyvanse. Following with outside psychiatrist Encounters Date Type Department Care Team Description 04/06/2025 Results Follow-Up [address] [address] Nicole Padron MD CULTURE, URINE, ROUTINE, URINALYSIS, COMPLETE INCLUDES DIPSTICK AND MICROSCOPIC 03/30/2025 Orders Only [facility] [address] Nicole Padron MD 03/23/2025 Abstract [facility] [address] [place] [address] Unknown, Abstract Provider 03/23/2025 Abstract [facility] [address] [place] [address] Unknown, Abstract Provider 03/02/2025 11:00 AM EDT Radiology [facility] [address] [place] [phone] Low back pain, unspecified back pain laterality, unspecified chronicity, unspecified whether sciatica present 03/02/2025 9:45 AM EDT CPE - Comprehensive Physical Exam [address] [address] Bc Buckley DNP Routine history and physical [...] Anxiety and depression; Psoriasis 03/02/2025 Results Follow-Up [address] [address] Bc Buckley DNP XRAY SPINE, LUMBOSACRAL 2 OR 3 VIEWS (DX: CHRONIC LOW BACK PAIN > 28 DAYS *NO INJURY*), HEPATITIS C AB WITH REFLEX TO RNA PCR, SERUM, BASIC METABOLIC PANEL WITH (GFR), Additional followed-up results: 3 03/02/2025 Orders Only [address] [address] Bc Buckley DNP from Last 3 Months Immunizations Immunization Administration Dates Next Due COVID-19, mRNA (Moderna Pre Fall 2022) Monovalent, 100 mcg/0.5 ml or 50 mcg/0.25 ml dose 07/13/2021,09/22/2020,08/25/2020 Influenza nasal,unspecified formulation 07/05/20 12 Influenza,injectable,MDCK, Prsrv Fr,Quad 022 Influenza,injectable,MDCK,quad,preservative 04/2021 Influenza,injectable,quad,Prsrv Fr 05/29/2023 Influenza,injectable,quad,preservative 9 Tdap 03/15/2022,12/11/2012 influenza,seasonal,trivalent ,PF (Fluzone, Fluarix, Flulaval) 05/31/2024 Social History Tobacco Use Types Packs/Day Years [...] AM EDT CPE - Comprehensive Physical Exam [facility] [place] [address] [place] [address] Bc Buckley, [facility] [address] [place] [address] CPE Health Maintenance Due Date Last Done Comments Pap Smear 1992 Eye/Retina Exam 1994 Hep B (1 of 3 - 19+ 3-dose series) 1995 Pneumococcal (1 of 2 - PCV) 1995 Zoster (Shingrix) (1 of 2) 1995 Mammogram/Breast Imaging 2016 Colon Cancer Screening 2021 COVID-19 Vaccine ( season) 2025 07/13/2021, 09/22/2020, 09/06/2020, Additional history exists Influenza (#1) 2025 05/31/2024, 05/06, 07/14/2022, Additional history exists HA1C 09/02/2025 03/02/2025, 07/05, 07/20/2024 GFR 03/02/2026 03/02/2025, 07/20/2024 LDL Cholesterol 03/02/2026 03/02/2025, 07/05, 07/20/2024 Microalbumin 03/02/2026 03/02/2025 DTaP/Tdap/Td (3 - Td or Tdap) 03/15/2032 03/15/2022, 12/11/2012 Hepatitis C Screening Completed 03/02/2025 Physical Discontinued [...] Pressure 119/79(03/02 9:52 AM EDT) No Bc Buckley, DNP Note: Above is your goal for [...] 7 Result Component 7.6(03/02/20 10:42 AM EDT) No Bc Buckley, MAXIMO Note: Above is your goal for sugar [...] 120 is ideal. Procedures * Due to [place] state law, this organization might not be [...] Last 3 Months Results * Due to [place] state law, this organization might not be sharing negative HIV tests. * (ABNORMAL) CULTURE, URINE, ROUTINE (03/30/2025 12:26 PM EDT) Bacteria culture (Urine) SEE NOTE(A) [facility] Comment: CULTURE, URINE, ROUTINE Micro Number: [id number] Test Status: Final Specimen Source: Not given [...] 1:20 AM EDT Narrative Resulting Agency Comment [id number] us Nicole Padron MD LABORATORY Final Result [facility] [address] [place] [address] * (ABNORMAL) URINALYSIS, COMPLETE INCLUDES DIPSTICK AND [...] 1:20 AM EDT Narrative Resulting Agency Comment [id number] us Nicole Padron MD LAB SAME DAY RESULT Final Result [facility] [address] [place] [address] * XRAY SPINE, LUMBOSACRAL 2 OR 3 [...] spine. Diffuse fecal retention throughout the colon. us Bc Buckley DNP IMG XRAY NO CONTRAST ORDERAB LES Final Result * HEPATITIS C AB WITH REFLEX TO RNA PCR, SERUM (03/02/2025 10:42 AM EDT) Hepatitis C virus Ab NON-REACT SÁNCHEZ NON-REACT SÁNCHEZ [facility] Comment: HCV antibody was non-reactive. There is no laboratory evidence of HCV infection. In most cases, no further action is required. However, if recent HCV exposure is suspected, a test for HCV RNA (test code 51248) is suggested. For additional information please refer to http://education.SoloPower.Essen BioScience/faq/IDF33x2 (This link is being provided for informational/ educational purposes only.) 03/02/2025 10:4 2 AM EDT 03/02/2025 5:44 PM EDT Narrative Resulting Agency Comment [id number] Bc Buckley [facility] LABORATORY Final Result Performing Organization Address [facility] de Phone Number [facility] [address] [place] [address] * (ABNORMAL) HEMOGLOBIN A1C (03/02/2025 10:42 AM [...] children. Estimated Average Glucose 193 mg/dL (calc) [facility] 03/02/2025 10:4 2 AM EDT 03/02/2025 5:44 PM EDT Narrative Resulting Agency Comment [id number] Bc Buckley [facility] LABORATORY Final Result Performing Organization Address [facility] de Phone Number [facility] [address] [place] [address] * ALBUMIN (MICROALBUMIN), RANDOM URINE, WITH CREATININE [...] 5:44 PM EDT Narrative Resulting Agency Comment [id number] Bc Buckley [facility] LABORATORY Final Result Performing Organization Address [facility] de Phone Number [facility] [address] [place] [address] * (ABNORMAL) LIPID PANEL WITH REFLEX TO [...] LDL-C. Darci SS et al. COY. 2013;310(19): 2156-6334 (http://education.fypio/faq/YFL038) CHOL/HDL Ratio 3.8 <5.0 (calc) [facility] Cholesterol Non-HDL 134(H) <130 mg/dL (calc) [facility] Comment: For patients with diabetes plus 1 major ASCVD risk factor, treating to a non-HDL-C goal of <100 mg/dL (LDL-C of <70 mg/dL) is considered a therapeutic option. 03/02/2025 10:4 2 AM EDT 03/02/2025 5:44 PM EDT Narrative Resulting Agency Comment [id number] Bc Buckley [facility] LABORATORY Final Result Performing Organization Address [facility] de Phone Number [facility] [address] [place] [address] * (ABNORMAL) BASIC METABOLIC PANEL WITH (GFR) [...] needs for GFR calculation. Resulting Agency Comment [id number] us Bc Buckley DNP LABORATORY Final Result [facility] [address] [place] [address] from Last 3 Months Insurance COMMERCIAL MD TAYLA [id number] Care Teams Web Sizer Relationship Specialty Start Date End Date Nicole Padron MD [address] [facility] [place] [address] PCP - General Family Medicine 10/28/24
--- OUTSIDE RECORDS SUMMARY | 2025-04-27 10:58 | XMS_ITS | Clinical Summary ---
Author Organization [facility] Address [address] [place] [address] Phone Care Team Providers Care Streetcar Repairer Name Role Phone Braulio Carbajal Primary Care [...] obesity with BMI of 4 5.0-49.9, adult ([facility] V24, [facility] V28) 04/02/2025 Class 3 severe obesity with serious comorbidity and body mass index (BMI) of 50.0 to 59.9 in adult ([facility] V24, [facility] V28) 01/18/2025 Class 3 severe obesity with serious comorbidity and body mass index (BMI) of 50.0 to 59.9 in adult ([facility] V24, [facility] V28) 12/18/2024 Class 3 severe obesity with serious comorbidity and body mass index (BMI) of 50.0 to 59.9 in adult ([facility] [place] [facility] [place] 07/20/2024 HTN (hypertension) 05/22/2024 IBS (irritable bowel syndrome) 05/22/2024 ADHD (attention deficit hype ractivity disorder), combined type 08/16/2014 Sleep apnea 06/28/2014 Morbid obesity ([facility] [place] [facility] [place] 2013 Overview (05/22/2024): BMI 52.25 on 06/05/13. Condition not found 06/05/2013 Overview (05/22/2024): Diabetes mellitus type II, uncontrolled Depression 04/05/2012 Encounters Date Type Department Care Team Description 03/31/2025 1:30 PM EDT Office Visit Bariatric Surgery - [address] [place] [address] Gosia Stoner MD Low vitamin D level (Primary Dx); Morbid obesity ([facility] [place], [facility] [place]); Sleep apnea, unspecified type; Hypertension, unspecified type; Type 2 diabetes mellitus with obesity ([facility] [place], [facility] [place]) from Last 3 Months Immunizations Name Administration Dates Next Due Tdap Tetanus diptheria acell ular pertussis (Boostrix; Adacel) 7yo and older 12/11/2012 Surgical History Surgery Date Site/Laterality Comments CHOLECYSTECTOMY 1999 PROCEDURE: HISTORICAL CHOLECYSTECTOMY Medical History Medical History Date Comments HTN (hypertension) 2011 DX:HTN (hyper tension) DM (diabetes mellitus) ([facility] V24, [facility] [place] 2006 DX:DM (diabetes [...] Morbid obesity with BMI of 45.0-49.9, adult ([facility] V24, [facility] V28) Health Maintenance Due Date Last [...] or Tdap) 03/15/2032 03/15/2022, 12/11/2012, 08/05/2012 RSV Immunization Adult Patients (1 - 1-dose 75+ series) 2051 HIV [...] 8:33 AM EST Morbid obesity (CMS/HCC V24, [facility] V28) HEMOGLOBIN A1C Routine 07/20/2024 8:33 AM EST Morbid obesity ([facility] V24, [facility] V28) LIPID PANEL WITH REFLEX TO DIRECT LDL Routine 07/20/2024 8:33 AM EST Morbid obesity ([facility] V24, [facility] V28) URINE ALBUMIN CREATININE RATIO Routine 02/26/2014 from Last 3 Months or Most Recently Relevant to Health Maintenance Results * (ABNORMAL) Lipid panel with reflex to direct LDL (07/20/2024 8:33 AM EST) Cholesterol 179 0 - 200 mg/dL LAB CHEMISTRY METHOD 07/20/2024 11:24 AM [facility] Triglycerides 89 0 - 150 mg/dL LAB CHEMISTRY METHOD 07/20/2024 11:24 AM [facility] HDL 53 >=40 mg/dL LAB CHEMISTRY METHOD 07/20/2024 11:24 AM [facility] LDL Calculated 108(H) 0 - 100 mg/dL LAB CHEMISTRY METHOD 07/20/2024 11:24 AM [facility] VLDL Cholesterol Francisco J 17.8 mg/dL LAB CHEMISTRY METHOD 07/20/2024 11:24 AM [facility] Non HDL Chol. (LDL+VLDL) 126 <145 mg/dL LAB CHEMISTRY METHOD 07/20/2024 11:24 AM [facility] Chol/HDL Ratio 3.4 0.0 - 4.4 LAB CHEMISTRY METHOD 07/20/2024 11:24 AM [facility] Blood Venous blood specimen / Unknown Venipuncture / Unknown 07/20/2024 8:33 AM EST 07/20/2024 8:33 AM EST Gosia Stoner MD LAB BLOOD ORDERABLES Fi nal Result Performing Organization Address [facility]/ZIP Co de Phone Number [facility] [address] [place] [address], * (ABNORMAL) Hemoglobin A1c (07/20/2024 8:33 AM EST) Pathologist [facility] Hemoglobin A1C 7.9(H) <6.5 % LAB [...] ORDERABLES Fi nal Result Performing Organization Address [facility] Co de Phone Number [facility] [address] [place] [address], [place] [phone] * (ABNORMAL) Comprehensive metabolic panel (07/20/2024 8:33 AM EST) [facility] Sodium 136 133 - 145 mmol/L LAB CHEMISTRY METHOD 07/20/2024 11:24 AM [facility] Potassium 4.5 3.5 - 5.5 mmol/L LAB CHEMISTRY METHOD 07/20/2024 11:24 AM [facility] Chloride 100 96 - 110 mmol/L LAB CHEMISTRY METHOD 07/20/2024 11:24 AM [facility] CO2 25 21 - 32 mmol/L LAB CHEMISTRY METHOD 07/20/2024 11:24 AM [facility] Anion Gap 11 3 - 11 LAB CHEMISTRY METHOD 07/20/2024 11:24 AM [facility] Glucose 148(H) 70 - 100 mg/dL LAB CHEMISTRY METHOD 07/20/2024 11:24 AM [facility] BUN 15 5 - 25 mg/dL LAB CHEMISTRY METHOD 07/20/2024 11:24 AM [facility] Creatinine 0.71 0.50 - 1.10 mg/dL LAB CHEMISTRY METHOD 07/20/2024 11:24 AM [facility] eGFR 105 >=60 mL/min/1. 73m2 LAB CHEMISTRY METHOD 07/20/2024 11:24 AM [facility] Comment:Calculation based on the Chronic Kidney Disease Epidemiology Collaboration (CKD-EPI) equation refit without adjustment for race. BUN/Creatinine Ratio 21.1 LAB CHEMISTRY METHOD 07/20/2024 11:24 AM [facility] Calcium 9.7 8.5 - 10.5 mg/dL LAB CHEMISTRY METHOD 07/20/2024 11:24 AM [facility] AST (SGOT) 16 10 - 42 unit/L LAB CHEMISTRY METHOD 07/20/2024 11:24 AM [facility] ALT (SGPT) 29 10 - 60 unit/L LAB CHEMISTRY METHOD 07/20/2024 11:24 AM [facility] Alkaline Phosphatase 124(H) 42 - 121 unit/L LAB CHEMISTRY METHOD 07/20/2024 11:24 AM [facility] Total Protein 7.7 6.0 - 8.0 g/dL LAB CHEMISTRY METHOD 07/20/2024 11:24 AM [facility] Albumin 3.6 3.2 - 5.0 g/dL LAB CHEMISTRY METHOD 07/20/2024 11:24 AM [facility] Total Bilirubin 0.4 0.0 - 1.4 mg/dL LAB CHEMISTRY METHOD 07/20/2024 11:24 AM [facility] Blood Venous blood specimen / Unknown Venipuncture / Unknown 07/20/2024 8:33 AM EST 07/20/2024 8:33 AM EST us Gosia Stoner MD LAB BLOOD ORDERABLES Fi nal Result [facility] [address] [place] [address], * Urine Albumin Creatinine Ratio (02/26/2014) Urine Albumin Creatinine Ratio Abstracted us Historical Provider HEALTH MAINTENANCE Final Result from Last 3 Months or Most Recently Relevant to Health Maintenance Insurance [employer] Care Teams Streetcar Repairer Relationship Specialty Start Date End Date Braulio Carbajal [address] [place] [address] PCP - General Internal Medicine 03/20/22
--- OUTSIDE RECORDS SUMMARY | 2025-04-27 10:58 | XMS_ITS | Encounter Summary ---
Author Organization [employer] Address [address] [facility] [address] [place] [address] Care Team Providers Care Light Adjuster Name Role Phone Unavailable Primary Care Provider Unavailabl e Reason for Visit * Reason Comments Med Refill Encounter Details Date Type Department Care Team ([facility] st Contact Info) Description 10/13/2024 Refill [facility] MED [facility] PEDS [address] [place] [address] Braulio Carbajal MD [address] [place] [address] Primary hypertension Social History Tobacco Use Types [...]
--- OUTSIDE RECORDS SUMMARY | 2025-04-27 10:58 | XMS_ITS | Encounter Summary ---
Author Organization [facility] Address [address] [place] [address] Care Team Providers Care Legal Writing Professor Name Role Phone Nicole Padron MD Primary Care Provider [phone] Encounter Details Date Type Department Care Team (Late st Contact Info) Description 03/02/2025 Orders Only [facility] [address] [place] [id number] Bc Buckley, [facility] [address] [place] [address] Social History Tobacco Use Types Packs/Day Years [...] Score 0 02/03 9:32 AM EDT Dylon Ceredo * Little interest or pleasure in doing [...] AM EDT CPE - Comprehensive Physical Exam [facility] [address] [place] [address] Bc Buckley DNP [address] [place] [address] CPE documented as of this encounter Goals [...] of this encounter Procedures * Due to [place] [employer] law, this organization might not be sharing [...] in this encounter Results * Due to [place] [employer] law, this organization might not be sharing negative HIV tests. * (ABNORMAL) HEMOGLOBIN A1C (03/02/2025 10:42 AM EDT) Hemoglobin A1C 7.6(H) <5.7 % [facility] Comment: For someone without known diabetes, a [...] 5:44 PM EDT Narrative Resulting Agency Comment [id number] Bc Buckley [facility] Final Result Performing Organization Address [facility] de Phone Number [facility] [address] [place] [address] * (ABNORMAL) LIPID PANEL WITH REFLEX TO [...] LDL-C. Darci SS et al. COY. 2013;310(19): 6240-9310 (http://education.LabDoor.Captronic Systems/faq/LKE202) CHOL/HDL Ratio 3.8 <5.0 (calc) [facility] Cholesterol Non-HDL 134(H) <130 mg/dL (calc) [facility] Comment: For patients with diabetes plus 1 major ASCVD risk factor, treating to a non-HDL-C goal of <100 mg/dL (LDL-C of <70 mg/dL) is considered a therapeutic option. 03/02/2025 10:4 2 AM EDT 03/02/2025 5:44 PM EDT Narrative Resulting Agency Comment [id number] Bc Buckley [facility] Final Result Performing Organization Address [facility]/State/ZIP Co de Phone Number [facility] [address] [place] [address] * ALBUMIN (MICROALBUMIN), RANDOM URINE, WITH CREATININE [...] 5:44 PM EDT Narrative Resulting Agency Comment [id number] Bc Buckley [facility] Final Result Performing Organization Address City/[facility] de Phone Number [facility] [address] [place] [address] * (ABNORMAL) BASIC METABOLIC PANEL WITH (GFR) [...] needs for GFR calculation. Resulting Agency Comment [id number] Bc Buckley [facility] Final Result Performing Organization Address [facility] Co de Phone Number [facility] [address] [place] [address] * HEPATITIS C AB WITH REFLEX TO RNA PCR, SERUM (03/02/2025 10:42 AM EDT) Hepatitis C virus Ab NON-REACT SÁNCHEZ NON-REACT SÁNCHEZ [facility] Comment: HCV antibody was non-reactive. There is no laboratory evidence of HCV infection. In most cases, no further action is required. However, if recent HCV exposure is suspected, a test for HCV RNA (test code 54758) is suggested. For additional information please refer to http://education.Medypal/faq/SMZ27e0 (This link is being provided for informational/ educational purposes only.) 03/02/2025 10:4 2 AM EDT 03/02/2025 5:44 PM EDT Narrative Resulting Agency Comment [id number] Bc Buckley [facility] Final Result Performing Organization Address [facility] Co de Phone Number [facility] [address] [place] [address] documented in this encounter Visit Diagnoses Diagnosis Need for hepatitis C screening test Special screening examination for other specified viral diseases Type 2 diabetes mellitus without complication, with long-term current use of insulin (HCC) documented in this encounter Care Teams Legal Writing Professor Relationship Specialty Start Date End Date iNcole Padron MD [address] [facility] [place] [address] PCP - General Family Medicine 10/28/24 documented as of this encounter
--- OUTSIDE RECORDS SUMMARY | 2025-04-27 10:58 | XMS_ITS | Encounter Summary ---
Author Organization [employer] Address [address] [facility] 7t [place] [address] Care Team Providers Care Secondary English Teacher Name Role Phone Unavailable Primary Care Provider Unavailabl e Reason for Visit * Reason Comments Med Refill Encounter Details Date Type Department Care Team ([facility] st Contact Info) Description 10/19/2024 Refill [facility] CH[facility] MED & PEDS [address] [place] [address] Braulio Carbajal MD [address] [place] [address] Social History Tobacco Use Types Packs/Day Years [...]
== END 2025-04-27 10:16 | disposition home or self-care (01) ==
LOC: HO.HOP 09:21
PROVIDERS: PCP Family Medicine; Visit Provider Counselor Mental Health
DX: F90.2 Attention-deficit hyperactivity disorder, combined type (principal); F41.0 Panic disorder [episodic paroxysmal anxiety]; F32.A Depression, unspecified
CPT/HCPCS: 90837

== ENCOUNTER 2025-05-11 08:00 | Outpatient (AMB) | payer OTHER, SELFPAY ==
--- NOTE | 2025-05-11 09:00 | MHC.WMTHER ---
Intake Intake Visit Reasons: VIDEO OP Therapy Allergies Penicillins Allergy (Intermediate, Verified 03/16/25 13:12) Shortness of Breath pt states no food allergies Allergy (Unknown, Uncoded 03/16/25 13:12) Unknown [facility] Medical History Type 2 diabetes mellitus with retinopathy Asthma Insomnia Neuropathy Breast calcification, right Adenocarcinoma determined by biopsy of liver Diabetic retinopathy Anxiety and depression GERD (gastroesophageal reflux disease) SOLE on CPAP ADHD Hyperlipidemia HTN (hypertension) with goal to be determined Diabetes mellitus Morbid obesity Surgical History Hx of LASIK History of cholecystectomy Family History Mother Diabetes Heart problem Father Hypertension Maternal Grandmother Primary cancer of bone marrow Maternal Grandfather Prostate cancer Social History Are you a primary assurance services manager health care to a significant other at home: No Do you presently have visiting nurse or other home services: No Alcohol intake: never Patient Tobacco Use Status: Never used Tobacco Female Reproductive History Menstrual Age of Menarche: 13 Behavioral Health Assessment Weight Management Therapy Therapy Notes Details Subjective: The patient has received a scheduled date for bariatric surgery on 07/16/25. She reports feeling upset due to an ongoing family situation, which continues to be a significant source of distress. Additionally, she describes recent marital difficulties, including a major conflict with her that has led her to question the stability of their relationship. 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 Objective: The patient presented for a follow-up visit via Telehealth, appearing appropriately groomed and oriented to person, place, and time. During the session, the patient was engaged and cooperative. Interventions included reflective listening to facilitate emotional processing, psychoeducation regarding stress management techniques, and exploration of coping strategies for managing anxiety related to both her personal life and exam preparation. The patient was guided through brief mindfulness exercises to address acute anxiety symptoms. Supportive counseling was provided to help her identify and challenge negative thought patterns related to her relationship and self-efficacy. The patient was encouraged to utilize journaling as a tool for emotional expression and to track mood fluctuations. Assessment/Response: Mental status: The patient is alert and oriented, with mood described as anxious and affect congruent. Thought processes are logical and goal-directed. No evidence of psychosis or cognitive impairment. Risk reported/identified: No suicidal or homicidal ideation reported. No acute safety concerns identified at this time. The patient continues to experience significant emotional distress related to family and marital issues, as well as anticipatory anxiety regarding her upcoming licensing exam and bariatric surgery. She demonstrates insight into her challenges and is receptive to therapeutic interventions. Assessment & Plan Assessment & Plan (1) ADHD: Code(s): F90.9 - Attention-deficit hyperactivity disorder, unspecified type Qualifiers: Attention deficit-hyperactivity disorder type: combined inattentive-hyperactive Qualified Code(s): F90.2 - Attention-deficit hyperactivity disorder, combined type (2) Panic disorder: Code(s): F41.0 - Panic disorder [episodic paroxysmal anxiety] (3) Depression, unspecified: Code(s): F32.A - Depression, unspecified Plan Continue supportive psychotherapy with a focus on stress management, relationship issues, and exam preparation. Patient will implement recommended coping strategies and mindfulness exercises. Follow-up appointment scheduled in two weeks on 05/25/25. Telehealth Telehealth Telehealth Platform: stickK Location of provider rendering services: other (Home office. [place], [place]) Location of patient: address on file Patient Identification confirmed using: Name, : Yes Telehealth method: video Patient verbally consented to treatment: Yes Patient verbally consented to billing insurance company: Yes Patient informed of any privacy concerns related to visit: Yes Minutes spent on Phone/Video with Pt.: 60 [place] [address] Tele Psytx >53 mins Patient Type Established Diagnoses Attention deficit hyperactivity disorder (ADHD), combined type F90.2 Attention deficit-hyperactivity disorder type: combined inattentive-hyperactive Panic disorder F41.0 Depression, unspecified F32.A Time Spent (min) 60
== END 2025-05-11 10:30 | disposition home or self-care (01) ==
LOC: HO.HOP 08:00
PROVIDERS: PCP Family Medicine; Visit Provider Counselor Mental Health
DX: F90.2 Attention-deficit hyperactivity disorder, combined type (principal); F41.0 Panic disorder [episodic paroxysmal anxiety]; F32.A Depression, unspecified
CPT/HCPCS: 90837

== ENCOUNTER 2025-05-25 09:30 | Outpatient (AMB) | payer OTHER, SELFPAY ==
--- NOTE | 2025-05-25 09:05 | A.OFFWM_ITS ---
Intake Intake Visit Reasons: VIDEO OP Therapy Allergies Penicillins Allergy (Intermediate, Verified 03/16/25 13:12) Shortness of Breath pt states no food allergies Allergy (Unknown, Uncoded 03/16/25 13:12) Unknown [facility] Medical History Type 2 diabetes mellitus with retinopathy Asthma Insomnia Neuropathy Breast calcification, right Adenocarcinoma determined by biopsy of liver Diabetic retinopathy Anxiety and depression GERD (gastroesophageal reflux disease) SOLE on CPAP ADHD Hyperlipidemia HTN (hypertension) with goal to be determined Diabetes mellitus Morbid obesity Surgical History Hx of LASIK History of cholecystectomy Family History Mother Diabetes Heart problem Father Hypertension Maternal Grandmother Primary cancer of bone marrow Maternal Grandfather Prostate cancer Social History Are you a primary medical care manager to a significant other at home: No Do you presently have visiting nurse or other home services: No Alcohol intake: never Patient Tobacco Use Status: Never used Tobacco Female Reproductive History Menstrual Age of Menarche: 13 Behavioral Health Assessment Weight Management Therapy Therapy Notes Details Subjective: 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 She has recently started a new training in trauma response, which has triggered grief symptoms related to the loss of her mother and grandmother. The patient describes difficulty with crying in public, which evokes childhood memories of being discouraged from expressing emotions. She recognizes that avoiding activities after the loss of loved ones has complicated her bereavement process. Objective: The patient attended a follow-up session via Telehealth, appearing engaged and open to discussion. During the session, cognitive behavioral therapy (CBT) interventions were utilized, including cognitive restructuring to challenge maladaptive beliefs about emotional expression and grief. The patient was guided through identifying and reframing negative automatic thoughts related to her exam performance and grief triggers. Behavioral activation strategies were introduced to encourage gradual participation in meaningful activities previously avoided due to grief. Mindfulness techniques were practiced to increase present-moment awareness and reduce emotional avoidance. Psychoeducation was provided regarding the normalcy of grief reactions and the impact of early emotional invalidation. The patient demonstrated insight into her patterns of avoidance and expressed willingness to implement coping strategies discussed. Assessment/Response: * Mental status: The patient is alert and oriented, with appropriate affect and congruent mood. Thought processes are logical and goal-directed. No evidence of psychosis or cognitive impairment. * Risk reported/identified: The patient denies suicidal or homicidal ideation, intent, or plan. No acute safety concerns identified. Assessment & Plan Assessment & Plan (1) ADHD: Code(s): F90.9 - Attention-deficit hyperactivity disorder, unspecified type Qualifiers: Attention deficit-hyperactivity disorder type: combined inattentive- hyperactive Qualified Code(s): F90.2 - Attention-deficit hyperactivity disorder, combined type (2) Panic disorder: Code(s): F41.0 - Panic disorder [episodic paroxysmal anxiety] (3) Depression, unspecified: Code(s): F32.A - Depression, unspecified Plan Continue bi-weekly sessions focusing on grief processing, CBT-based interventions for emotional regulation, and support for exam-related stress. Encourage the patient to practice coping skills between sessions and consider formal accommodation requests for future exams. * Next jase: 06/08/25 at 9am, Telehealth. Telehealth Telehealth Telehealth Platform: [employer] Location of provider rendering services: other (Home office. [place], [place]) Location of patient: address on file Patient Identification confirmed using: Name, : Yes Telehealth method: video Patient verbally consented to treatment: Yes Patient verbally consented to billing insurance company: Yes Patient informed of any privacy concerns related to visit: Yes Minutes spent on Phone/Video with Pt.: 65 [place] [id number] Tele Psytx >53 mins Patient Type Established Diagnoses Attention deficit hyperactivity disorder (ADHD), combined type F90.2 Attention deficit-hyperactivity disorder type: combined inattentive-hyperactive Panic disorder F41.0 Depression, unspecified F32.A Time Spent (min) 65
--- OUTSIDE RECORDS SUMMARY | 2025-05-25 10:41 | XMS_ITS | Encounter Summary ---
Author Organization [facility] Address [address] [place], [place] [id number] Care Team Providers Care Diesel Fleet Mechanic Name Role Phone Nicole Padron MD Primary Care Provider [phone] Reason for Visit * Reason Comments Medical Record Encounter Details Date Type Department Care Team (Late Contact Info) Description 03/23/2025 Abstract [facility] [place] [address] Unknown, Abstract Provider Social History Tobacco Use [...] AM EDT CPE - Comprehensive Physical Exam [facility] [address] [place] [phone] Bc Buckley, MAXIMO [address] [place] [address] CPE documented as of this encounter Goals [...] on filedocumented in this encounter Care Teams Diesel Fleet Mechanic Relationship Specialty Start Date End Date Nicole Padron MD [address] [facility] [address] PCP - General Family Medicine 10/28/24 documented as of this encounter
--- OUTSIDE RECORDS SUMMARY | 2025-05-25 10:41 | XMS_ITS | Encounter Summary ---
Author Organization [facility] Address [address] [place] [address] Care Team Providers Care Foundation Drill Operator Helper Name Role Phone Nicole Padron MD Primary Care Provider [phone] Encounter Details Date Type Department Care Team (Late st Contact Info) Description 03/02/2025 Orders Only [facility] [place] [address] [place] [phone] Bc Buckley, [facility] [address] [place] [address] Social History Tobacco Use Types Packs/Day Years [...] Score 0 02/03 9:32 AM EDT [place] * Little interest or pleasure in doing [...] AM EDT CPE - Comprehensive Physical Exam [facility] [place] [address] [place] [address] Bc Buckley DNP [address] [place] [address] CPE documented as of this encounter Goals [...] of this encounter Procedures * Due to [place] [employer] law, this organization might not be sharing [...] in this encounter Results * Due to [place] [employer] law, this organization might not be sharing negative HIV tests. * (ABNORMAL) HEMOGLOBIN A1C (03/02/2025 10:42 AM EDT) Hemoglobin A1C 7.6(H) <5.7 % [facility] Comment: For someone without known diabetes, a [...] 5:44 PM EDT Narrative Resulting Agency Comment [id number] Bc Buckley [facility] LABORATORY Final Result Performing Organization Address [facility] de Phone Number [facility] [address] [place] [address] * (ABNORMAL) LIPID PANEL WITH REFLEX TO [...] LDL-C. Darci SS et al. COY. 2013;310(19): 8464-4929 (http://education.[employer].Surface Tension/faq/ECS644) CHOL/HDL Ratio 3.8 <5.0 (calc) [facility] Cholesterol Non-HDL 134(H) <130 mg/dL (calc) [facility] Comment: For patients with diabetes plus 1 major ASCVD risk factor, treating to a non-HDL-C goal of <100 mg/dL (LDL-C of <70 mg/dL) is considered a therapeutic option. 03/02/2025 10:4 2 AM EDT 03/02/2025 5:44 PM EDT Narrative Resulting Agency Comment [id number] Bc Buckley [facility] LABORATORY Final Result Performing Organization Address [facility]/State/ZIP Co de Phone Number [facility] [address] [place] [address] * ALBUMIN (MICROALBUMIN), RANDOM URINE, WITH CREATININE [...] 5:44 PM EDT Narrative Resulting Agency Comment [id number] Bc Buckley [facility] LABORATORY Final Result Performing Organization Address City/[facility] de Phone Number [facility] [address] [place] [address] * (ABNORMAL) BASIC METABOLIC PANEL WITH (GFR) [...] needs for GFR calculation. Resulting Agency Comment [id number] Bc Buckley [facility] LABORATORY Final Result Performing Organization Address [facility] Co de Phone Number [facility] [address] [place] [address] * HEPATITIS C AB WITH REFLEX TO RNA PCR, SERUM (03/02/2025 10:42 AM EDT) Hepatitis C virus Ab NON-REACT SÁNCHEZ NON-REACT SÁNCHEZ [facility] Comment: HCV antibody was non-reactive. There is no laboratory evidence of HCV infection. In most cases, no further action is required. However, if recent HCV exposure is suspected, a test for HCV RNA (test code 90415) is suggested. For additional information please refer to http://education.EdCaliber/faq/JXL01i4 (This link is being provided for informational/ educational purposes only.) 03/02/2025 10:4 2 AM EDT 03/02/2025 5:44 PM EDT Narrative Resulting Agency Comment [id number] Bc Buckley [facility] LABORATORY Final Result Performing Organization Address [facility] Co de Phone Number [facility] [address] [place] [address] documented in this encounter Visit Diagnoses Diagnosis Need for hepatitis C screening test Special screening examination for other specified viral diseases Type 2 diabetes mellitus without complication, with long-term current use of insulin (HCC) documented in this encounter Care Teams Foundation Drill Operator Helper Relationship Specialty Start Date End Date Nicole Padron MD [address] [facility] [place] [address] PCP - General Family Medicine 10/28/24 documented as of this encounter
--- OUTSIDE RECORDS SUMMARY | 2025-05-25 10:41 | XMS_ITS | Encounter Summary ---
Author Organization [employer] [facility] Address [address] [facility] 7t [place] [address] Care Team Providers Care Supervisor Inspecting Name Role Phone Unavailable Primary Care Provider Unavailabl e Reason for Visit * Reason Comments Med Refill Encounter Details Date Type Department Care Team ([facility] st Contact Info) Description 10/13/2024 Refill [facility] MED & PEDS [address] [place] [address] Braulio Carbajal MD [address] [place] [address] Primary hypertension Social History Tobacco Use Types [...]
--- OUTSIDE RECORDS SUMMARY | 2025-05-25 10:41 | XMS_ITS | Encounter Summary ---
Author Organization [facility] Address [address] [place] [address] Care Team Providers Care Cleaner And Preparer Name Role Phone Nicole Padron MD Primary Care Provider [phone] Encounter Details Date Type Department Care Team (Late Contact Info) Description 03/30/2025 Orders Only [address] [phone] Nicole Padron MD [address] [place] [address] Social History Tobacco Use Types Packs/Day Years [...] AM EDT CPE - Comprehensive Physical Exam [address] [phone] Bc Buckley, MAXIMO [address] [place] [address] CPE documented as of this encounter Goals [...] of this encounter Procedures * Due to [place] state law, this organization might not be sharing negative HIV tests. Procedure Name Priority Date/Time Associated Diagnosis Comments CULTURE, URINE, ROUTINE Routine 03/30/2025 12:26 PM EDT Dysuria URINALYSIS, COMPLETE INCLUDES DIPSTICK AND MICROSCOPIC Routine 03/30/2025 12:26 PM EDT Dysuria documented in this encounter Results * Due to [place] state law, this organization might not be [...] 1:20 AM EDT Narrative Resulting Agency Comment [id number] Nicole Padron MD LAB SAME DAY RESULT Final Result Performing Organization Address City/State/[facility] Co de Phone Number [facility] [address] [place] [address] * (ABNORMAL) CULTURE, URINE, ROUTINE (03/30/2025 12:26 PM EDT) Bacteria culture (Urine) SEE NOTE(A) [facility] Comment: CULTURE, URINE, ROUTINE Micro Number: [id number] Test Status: Final Specimen Source: Not given [...] 1:20 AM EDT Narrative Resulting Agency Comment [id number] Nicole Padron MD LABORATORY Final Result Performing Organization Address City/State/[facility] Phone Number [facility] [address] [place] [address] documented in this encounter Visit Diagnoses Diagnosis Dysuria documented in this encounter Care Teams Cleaner And Preparer Relationship Specialty Start Date End Date Nicole Padron MD [address] [facility] [address] PCP - General Family Medicine 10/28/24 documented as of this encounter
--- OUTSIDE RECORDS SUMMARY | 2025-05-25 10:41 | XMS_ITS | Clinical Summary ---
Author Organization [facility] Address [address] [place] [address] Care Team Providers Care Narcotics And/Or Vice Detective Name Role Phone Braulio Lopez MD Primary Care Provider [phone] Allergies Active Allergy Reactions Criticality Noted Date [...] age to complete this topic Care Teams Narcotics And/Or Vice Detective Relationship Specialty Start Date End Date Braulio Lopez MD [address] [place] [phone] PCP - General Internal Medicine 03/20/22
--- OUTSIDE RECORDS SUMMARY | 2025-05-25 10:41 | XMS_ITS | Encounter Summary ---
Author Organization [employer] [facility] Address [address] [facility] 7t [place] [address] Care Team Providers Care Access Rep Name Role Phone Unavailable Primary Care Provider Unavailabl e Reason for Visit * Reason Comments Med Refill Encounter Details Date Type Department Care Team ([facility] st Contact Info) Description 10/19/2024 Refill [facility] MED & PEDS [address] [place] [address] Braulio Carbajal MD [address] [place] [address] Social History Tobacco Use Types Packs/Day Years [...]
--- OUTSIDE RECORDS SUMMARY | 2025-05-25 10:41 | XMS_ITS | Encounter Summary ---
Author Organization [facility] Address [address] [place] [address] Care Team Providers Care Oil Dispenser Name Role Phone Braulio Carbajal MD Primary Care Prov ider Reason for Visit * Reason Comments Med Refill Encounter Details Date Type Department Care Team (Late st Contact Info) Description 10/29/2022 Refill [facility] [address] [place], [place] [phone] Braulio Carbajal MD [address] [place] [address] Social History Tobacco Use Types Packs/Day Years [...] on filedocumented in this encounter Care Teams Oil Dispenser Relationship Specialty Start Date End Date Braulio Carbajal MD [address] [place] [address] PCP - General Internal Medicine 12/14/19 04/28/24 documented as of this encounter
--- OUTSIDE RECORDS SUMMARY | 2025-05-25 10:41 | XMS_ITS | Encounter Summary ---
Author Organization [employer] [facility] Address [address] [place] [address] Care Team Providers Care Heat Treat Worker Name Role Phone Braulio Carbajal MD Primary Care Prov ider Reason for Visit * Reason Onset Date Comments Med Refill 02/28/2023 Encounter Details Date Type Department Care Team (Late st Contact Info) Description 02/28/2023 Refill [facility] MED & PEDS [address] [place] [address] Braulio Carbajal MD [address] [place] [address] Social History Tobacco Use Types Packs/Day Years [...] on filedocumented in this encounter Care Teams Heat Treat Worker Relationship Specialty Start Date End Date Braulio Carbajal MD [address] [place] [address] PCP - General Internal Medicine 12/14/19 04/28/24 documented as of this encounter
--- OUTSIDE RECORDS SUMMARY | 2025-05-25 10:41 | XMS_ITS | Encounter Summary ---
Author Organization [facility] Address [address] [place], [place] [address] Care Team Providers Care Ems Educator Name Role Phone Nicole Pardon MD Primary Care Provider [phone] Reason for Visit * Reason Comments Medical Record Encounter Details Date Type Department Care Team (Late Contact Info) Description 03/23/2025 Abstract [facility] [place] [address] Unknown, Abstract Provider Social History Tobacco Use [...] AM EDT CPE - Comprehensive Physical Exam [facility] [address] [place] [phone] Bc Buckley, MAXIMO [address] [place] [address] CPE documented as of this encounter Goals [...] on filedocumented in this encounter Care Teams Ems Educator Relationship Specialty Start Date End Date Nicole Padron MD [address] [facility] [place] [address] PCP - General Family Medicine 10/28/24 documented as of this encounter
--- OUTSIDE RECORDS SUMMARY | 2025-05-25 10:41 | XMS_ITS | Clinical Summary ---
Author Organization [facility] Address [address] [place] [address] Care Team Providers Care Dedicated Local Truck Driver Name Role Phone Braulio Lopez Primary Care Provider [phone] Allergies Active Allergy Reactions Criticality Noted Date [...] age to complete this topic Care Teams Dedicated Local Truck Driver Relationship Specialty Start Date End Date Braulio Lopez PCP - General Internal Medicine 02/01/22
--- OUTSIDE RECORDS SUMMARY | 2025-05-25 10:41 | XMS_ITS | Encounter Summary ---
Author Organization [employer] [facility] Address [address] [facility] 7 [place] [address] Care Team Providers Care Molybdenum Steamer Operator Name Role Phone Braulio Carbajal MD Primary Care Prov ider Reason for Visit * Reason Onset Date Comments Med Refill 02/28/2023 Encounter Details Date Type Department Care Team (Late st Contact Info) Description 02/28/2023 Refill [facility] [address] [place] [address] Braulio Carbajal MD [address] [place] [address] Mixed hyperlipidemia; Primary hypertension; Type 2 diabetes mellitus with diabetic polyneuropathy, with long-term current use of insulin ([facility]/HCC) Social History Tobacco Use Types Packs/Day Years [...] polyneuropathy, with long-term current use of insulin (HCC) documented in this encounter Care Teams Molybdenum Steamer Operator Relationship Specialty Start Date End Date Braulio Carbajal MD [address] [place] [address] PCP - General Internal Medicine 12/14/19 04/28/24 documented as of this encounter
--- OUTSIDE RECORDS SUMMARY | 2025-05-25 10:41 | XMS_ITS | Encounter Summary ---
Author Organization [employer] [facility] Address [address] [place] [address] Care Team Providers Care Experimental Electronics Developer Name Role Phone Braulio Carbajal MD Primary Care Prov ider Reason for Visit * Reason Comments Med Refill Encounter Details Date Type Department Care Team (Late st Contact Info) Description 10/29/2022 Refill [facility] [address] [place], [place] [phone] Braulio Carbajal MD [address] [place] [address] Social History Tobacco Use Types Packs/Day Years [...] on filedocumented in this encounter Care Teams Experimental Electronics Developer Relationship Specialty Start Date End Date Braulio Carbajal MD [address] [place] [address] PCP - General Internal Medicine 12/14/19 04/28/24 documented as of this encounter
--- OUTSIDE RECORDS SUMMARY | 2025-05-25 10:41 | XMS_ITS | Clinical Summary ---
Author Organization [facility] Address [address] [place] [address] Care Team Providers Care Gymnastics Instructor Name Role Phone Nicole Padron MD Primary Care Provider [phone] Allergies Active Allergy Reactions Criticality Noted Date [...] day for 5 days. 10 capsule 04/02/2025 05/07/20 25 Active Problems Problem Noted Date Diagnosed Date Class 3 severe obesity in adult 03/02/2025 Overview (03/02/2025): 03/02/2025 following with bariatric provider through [facility] in [place]. Requesting referral. Order placed Type 2 diabetes mellitus wit hout complication, with long-term current use of insulin 03/02/2025 Anxiety and depression 03/02/2025 Overview (03/02/2025): 03/02/2025 stable on current medications. Following with outside psychiatrist Psoriasis 03/02/2025 Overview (03/02/2025): 03/02/2025 stable with [facility]. 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 Following with outside psychiatrist Encounters Date Type Department Care Team Description 04/06/2025 Results Follow-Up [address] [phone] Nicole Padron MD CULTURE, URINE, ROUTINE, URINALYSIS, COMPLETE INCLUDES DIPSTICK AND MICROSCOPIC 03/30/2025 Orders Only [facility] [phone] Nicole Padron MD 03/23/2025 Abstract [facility] [address] [place] [address] Unknown, Abstract Provider 03/23/2025 Abstract [facility] [address] [place] [address] Unknown, Abstract Provider 03/02/2025 11:00 AM EDT Radiology [facility] [address] [place] [phone] Low back pain, unspecified back pain laterality, unspecified chronicity, unspecified whether sciatica present 03/02/2025 9:45 AM EDT CPE - Comprehensive Physical Exam [address] [phone] Bc Buckley DNP Routine history and physical [...] Anxiety and depression; Psoriasis 03/02/2025 Results Follow-Up [address] [address] Bc Buckley DNP XRAY SPINE, LUMBOSACRAL 2 OR 3 VIEWS (DX: CHRONIC LOW BACK PAIN > 28 DAYS *NO INJURY*), HEPATITIS C AB WITH REFLEX TO RNA PCR, SERUM, BASIC METABOLIC PANEL WITH (GFR), Additional followed-up results: 3 03/02/2025 Orders Only [address] [phone] Bc Buckley DNP from Last 3 Months [...] AM EDT CPE - Comprehensive Physical Exam [facility] [address] [place] [address] Bc Buckley, [facility] [address] [place] [address] CPE Health Maintenance Due Date Last Done [...] 119/79(03/02 9:52 AM EDT) No Bc Buckley, MAXIMO Note: Above is your goal for blood [...] Result Component 7.6(03/02/20 10:42 AM EDT) Bc Olivier, MAXIMO Note: Above is your goal for [...] 120 is ideal. Procedures * Due to [place] state law, this organization might not be [...] Last 3 Months Results * Due to [place] state law, this organization might not be sharing negative HIV tests. * (ABNORMAL) CULTURE, URINE, ROUTINE (03/30/2025 12:26 PM EDT) Bacteria culture (Urine) SEE NOTE(A) [facility] Comment: CULTURE, URINE, ROUTINE Micro Number: [id number] Test Status: Final Specimen Source: Not given [...] 1:20 AM EDT Narrative Resulting Agency Comment [id number] us Nicole Padron MD LABORATORY Final Result [facility] [address] [place] [address] * (ABNORMAL) URINALYSIS, COMPLETE INCLUDES DIPSTICK AND [...] 1:20 AM EDT Narrative Resulting Agency Comment [id number] us Nicole Padron MD LAB SAME DAY RESULT Final Result [facility] [address] [place] [address] * XRAY SPINE, LUMBOSACRAL 2 OR 3 [...] a test for HCV RNA (test code 94126) is suggested. For additional information please refer to http://education.[employer].OpenBook/faq/XGP69k1 (This link is being provided for informational/ educational purposes only.) 03/02/2025 10:4 2 AM EDT 03/02/2025 5:44 PM EDT Narrative Resulting Agency Comment [id number] Bc Buckley [facility] LABORATORY Final Result Performing Organization Address [facility] de Phone Number [facility] [address] [place] [address] * (ABNORMAL) HEMOGLOBIN A1C (03/02/2025 10:42 AM [...] children. Estimated Average Glucose 193 mg/dL (calc) [facility] 03/02/2025 10:4 2 AM EDT 03/02/2025 5:44 PM EDT Narrative Resulting Agency Comment [id number] Bc Buckley [facility] LAB[facility] Final Result Performing Organization Address [facility] de Phone Number [facility] [address] [place] [address] * ALBUMIN (MICROALBUMIN), RANDOM URINE, WITH CREATININE [...] 5:44 PM EDT Narrative Resulting Agency Comment [id number] Bc Buckley [facility] Final Result Performing Organization Address [facility] de Phone Number [facility] [address] [place] [address] * (ABNORMAL) LIPID PANEL WITH REFLEX TO [...] LDL-C. Darci SS et al. COY. 2013;310(19): 8373-0390 (http://education.[facility]/faq/MXE804) CHOL/HDL Ratio 3.8 <5.0 (calc) [facility] Cholesterol Non-HDL 134(H) <130 mg/dL (calc) [facility] Comment: For patients with diabetes plus 1 major ASCVD risk factor, treating to a non-HDL-C goal of <100 mg/dL (LDL-C of <70 mg/dL) is considered a therapeutic option. 03/02/2025 10:4 2 AM EDT 03/02/2025 5:44 PM EDT Narrative Resulting Agency Comment [id number] Bc Buckley [facility] LAB[facility]ATORY Final Result Performing Organization Address [facility] de Phone Number [facility] [address] [place] [address] * (ABNORMAL) BASIC METABOLIC PANEL WITH (GFR) [...] needs for GFR calculation. Resulting Agency Comment [id number] us Bc Buckley DNP LABORATORY Final Result [facility] [address] [place] [address] from Last 3 Months Insurance COMMERCIAL MD [place] [id number] Care Teams Gymnastics Instructor Relationship Specialty Start Date End Date Nicole Padron MD [address] [facility] [place] [address] PCP - General Family Medicine 10/28/24
--- OUTSIDE RECORDS SUMMARY | 2025-05-25 10:42 | XMS_ITS | Encounter Summary ---
Author Organization [employer] Address [address] [facility] 7t [place] [address] Care Team Providers Care Ship Manager Name Role Phone Braulio Carbajal MD Primary Care Prov ider Encounter Details Date Type Department Care Team (Late st Contact Info) Description 08/17/2022 Orders Only [facility] [address] [place] [address] Braulio Carbajal MD [address] [place] [address] Type 2 diabetes mellitus without complication, unspecified whether marine oil terminal superintendent insulin use ([facility]) (Primary Dx) Social History Tobacco Use Types [...] unspecified whether care home insulin use (CMS/HCC) TYPE AND SCREEN Routine 01/01/2023 10:22 AM EDT Type 2 diabetes mellitus without complication, unspecified whether care home insulin use (CMS/HCC) VITAMIN D,25-OH,TOTAL,IA Routine 01/01/2023 10:20 AM EDT Type 2 diabetes mellitus without complication, unspecified whether care home insulin use (CMS/HCC) TSH W/REFLEX TO FT4 [...] unspecified whether care home insulin use (CMS/HCC) PROTHROMBIN TIME-INR Routine 01/01/2023 10:20 AM EDT Type 2 diabetes mellitus without complication, unspecified whether care home insulin use (CMS/HCC) C-REACTIVE PROTEIN Routine 01/01/2023 10 :20 AM EDT Type 2 diabetes mellitus without complication, unspecified whether marine oil terminal superintendent insulin use (CMS/HCC) VITAMIN B1 Routine 01/01/2023 10:20 AM EDT Type 2 diabetes mellitus without complication, unspecified whether care home insulin use (CMS/HCC) PTH, INTACT WITHOUT CALCIUM Routine 01/01/2023 10:20 AM EDT Type 2 diabetes mellitus without complication, unspecified whether care home insulin use (CMS/HCC) HEMOGLOBIN A1C Routine 01/01/2023 10:20 AM EDT Type 2 diabetes mellitus without complication, unspecified whether marine oil terminal superintendent insulin use (CMS/HCC) FERRITIN Routine 01/01/2023 10:20 AM EDT Type 2 diabetes mellitus without complication, unspecified whether marine oil terminal superintendent insulin use (CMS/HCC) VITAMIN B12 Routine 01/01/2023 10:20 AM EDT Type 2 diabetes mellitus without complication, unspecified whether care home insulin use (CMS/HCC) LIPID PANEL, STANDARD Routine 01/01/2023 10:20 AM EDT Type 2 diabetes mellitus without complication, unspecified whether marine oil terminal superintendent insulin use (CMS/HCC) COMPREHENSIVE METABOLIC PANEL Routine 01/01/2023 10:20 AM EDT Type 2 diabetes mellitus without complication, unspecified whether marine oil terminal superintendent insulin use (CMS/HCC) GLUCOSE, WHOLE BLOOD Routine 11/13/2022 1:31 PM EDT Type 2 diabetes mellitus without complication, unspecified whether marine oil terminal superintendent insulin use (CMS/HCC) HEMOGLOBIN A1C Routine 11/13/2022 1:14 PM EDT Type 2 diabetes mellitus without complication, unspecified whether marine oil terminal superintendent insulin use (CMS/HCC) documented in this encounter Results * CA 19-9 (01/09/2023 10:38 AM EDT) CA 19-9 14 <34 U/mL [facility] Comment:The CA19-9 result ma y be increased on average 14% - 20%,relative to results previously obtained with this methoddue to a recent calibrator adjustment made in Octobery the reagent surgical services manager. In the low range for thisassay [...] or absence of disease.THIS TEST WAS PERFORMED AT:[employer] [place] [id number] LONDONO MD 01/09/2023 10:3 8 AM EDT 01/09/2023 10:42 AM EDT [facility] External Provider LAB BLO OD ORDERABLES Final Result [facility] [address] [place] [phone] * Hematoxylin and Eosin Stain (01/09/2023 8:38 AM EDT) 01/09/2023 8:38 AM EDT 01/09/2023 8:53 AM EDT Narrative [facility] - 01/14/2023 1:28 PM EDT ----- ------- Name: Julia López Age/Sex: 47/F : 1975 [facility]#: [id number] Unit#: [id number] Attend Dr: Darci Sanders MD Re01/09/23 Status: [facility] Location: [facility] Disch: ----- ------- SPEC : [id number] RECD: 01/09/23 STATUS: HERMINIO CROCKER NUM: [id number] PUSHPA: 01/09/[address] [facility] [address]: Darci Sanders MD ENTERED: 01/09/23 [...] Julia López Age/Sex: 47/F : 1975 Unit#: [id number] Attend Dr: Darci Sanders MD Re01/09/23 Status: [facility] Location: [facility] Disch: ----- ------- SPEC : [id number] RECD: 01/09/23 STATUS: HERMINIO OBI NUM: [id number] PUSHPA: 01/09/[address] [facility] [address]: Darci Sanders MD ENTERED: 01/09/23 [...] on B2. Copies To: Braulio Carbajal MD [address] [place] [phone] Darci Sanders MD [address] [place] [address], 3rd [place] [address] ----- ------- Signed (signature on file) Shaun Lebron MD 01/14/23 1328 ----- ------- END OF REPORT [facility] External Provider LAB BLO OD ORDERABLES Final Result [facility] [address] [place] [phone] * COVID-19 ID NOW (OPTIMIZERx) (01/08/2023 2:18 PM EDT) IDNOW SERIAL# [id number] [facility] COVID-19 TEST Negative Negative [facility] COVID-19 NOTE See Note [facility] Comment: Results are for the identification of SARS-CoV2 RNA. TheSARS-CoV2 RNA is generally detectable in respiratory samplesduring the acute phase of infection. Positive results areindicative of the presence of SARS-CoV-2 RNA; clinicalcorrelation with patient history and other diagnosticinformation is necessary to determine patient infectionstatus. Positive results do not rule out bacterial infectionor co- infection with other viruses.Testing facilities within the [facility] and [facility]core[facility] hospitalrin[facility] hospitalies are required to report all positive [...] use by authorized laboratories.Testing performed on the Zaya ID NOW utilizing NAAT. 01/08/2023 2:18 PM EDT 01/08/2023 2:32 PM EDT [facility] Exter nal Provider LAB MOLECULAR DIAGNOSTICS ORDERABLES Final Result Performing Organization Address City/[facility] de Phone Number [facility] [address] [place] [phone] [phone] * Type and screen (01/01/2023 10:22 AM EDT) Pathologist [facility] Blood Type OP [facility] Antibody Screen NEGATIVE [facility] 01/01/2023 10:2 2 AM EDT 01/01/2023 11:04 AM EDT Narrative [facility] - 01/01/2023 11:55 AM EDT Spec expiration changed by JAMESON on 01/01/23Reason: For SURGERYNURSING:Call Blood Bank (ext. [phone]) to band patient on admission.Type and Screen in effect until 2300 on 01/09/23Witnessed by EDELMIRA us [facility] External Provider LAB BLO OD BANK TEST ORDERABLES Final Result Performing Organization Address [facility] de Phone Number [facility] [address] [place] [phone] * (ABNORMAL) Vitamin A (01/01/2023 10:20 AM EDT) Pathologist [facility] Vitamin A (Retinol) 32(A) 38 - 98 mcg/dL [facility] Comment:Vitamin supplementat ion within 24 hours prior toblood draw may affect the accuracy of the results.This test was developed and its analytical performancecharacteristics have been determined by [employer] [place], [place]. It hasnot been cleared or approved by the U.S. Food and DrugAdministration. This assay has been validated pursuantto the CLIA regulations and is used for clinicalpurposes.THIS TEST WAS PERFORMED AT:[id number] [place] [id number] BARRY MD,PHD 01/01/2023 10:2 0 AM EDT 01/01/2023 10:20 AM EDT [facility] External Provider LAB BLO OD ORDERABLES Final Result Performing Organization Address [facility] Co de Phone Number [facility] [address] [place] [phone] * (ABNORMAL) Vitamin B1 (01/01/2023 10:20 AM EDT) Vitamin B1 <6(A) 8 - 30 nmol/L [facility] Comment:Vitamin supplementat ion within 24 hours prior toblood draw may affect the accuracy of the results.This test was developed and its analytical performancecharacteristics have been determined by [employer], [place]. It hasnot been cleared or approved by the .S. Food and DrugAdministration. This assay has been validated pursuantto the CLIA regulations and is used for clinicalpurposes.THIS TEST WAS PERFORMED AT:[employer] [address] [id number] BARRY MD,PHD 01/01/2023 10:2 0 AM EDT 01/01/2023 10:20 AM EDT [facility] External Provider LAB BLO OD ORDERABLES Final Result Performing Organization Address [facility] de Phone Number [facility] [address] [place] [phone] * Zinc (01/01/2023 10:20 AM EDT) Zinc 84 60 - 130 mcg/dL [facility] Comment:This test was develo ped and its analytical performancecharacteristics have been determined by [employer]. It hasnot been cleared or approved by the U.S. Food and DrugAdministration. This assay has been validated pursuantto the CLIA regulations and is used for clinicalpurposes.THIS TEST WAS PERFORMED AT:[id number] [place] [address]EGDZMOCNICOLA BARRY MD,PHD 01/01/2023 10:2 0 AM EDT 01/01/2023 10:20 AM EDT [facility] External Provider LAB BLO OD ORDERABLES Final Result Performing Organization Address [facility] Co de Phone Number [facility] [address] [place] [phone] * PTH, Intact Without Calcium (01/01/2023 10:20 AM EDT) PTHI 32 16 - 77 pg/mL [facility] Comment:Interpretive Guide I ntact PTH Calcium -------Normal Parathyroid Normal NormalHypoparathyroidism Low or Low Normal LowHyperparathyroidism Primary Normal or High High Secondary High Normal or Low Tertiary High HighNon-Parathyroid Hypercalcemia Low or Low Normal High Calcium (PTHI) 9.9 8.6 - 10.2 mg/dL [facility] Comment:THIS TEST WAS PERFOR MED AT:[employer] [place] [id number] LONDONO MD 01/01/2023 10:2 0 AM EDT 01/01/2023 10:20 AM EDT [facility] External Provider LAB BLO OD ORDERABLES Final Result Performing Organization Address [facility] Co de Phone Number [facility] [address] [place] [phone] * Lipid Panel, Standard (01/01/2023 10:20 AM EDT) Triglycerides 73 mg/dL [facility] Comment:Desirable Triglyceri de: less than 150 mg/dLBorderline High Triglyceride 150-199 mg/dLHigh Triglyceride: 200-499 mg/dLVery High Triglyceride: greater than or equal to 5OO mg/dL Cholesterol 101 mg/dL [facility] Comment:Desirable Cholestero l: less than 200 mg/dLBorderline High Cholesterol: 200-239 mg/dLHigh Cholesterol: greater than 239 mg/dL LDL Cholesterol Calculated 53 mg/dl [facility] Comment:Desirable LDL: less than 100 mg/dLNear Optimal/Above Optimal LDL: 110- 129 mg/dLBorderline High LDL: 130-159 mg/dLHigh LDL: 160-189 mg/dLVery High LDL: greater than or equal to 190 mg/dL HDL Cholesterol 34 mg/dL [facility] Comment:Desirable HDL: great er than 40 mg/dL Note: This HDL assay may give artificially low results in patients with liver disease. 01/01/2023 10:2 0 AM EDT 01/01/2023 10:20 AM EDT [facility] External Provider LAB BLO OD ORDERABLES Final Result Performing Organization Address City/[facility]/ZIP Co de Phone Number [facility] [address] [place] [phone] * (ABNORMAL) C-reactive Protein (01/01/2023 10:20 AM EDT) C Reactive Protein 2.54(H) < or = 0.50 mg/dL [facility] 01/01/2023 10:2 0 AM EDT 01/01/2023 10:20 AM EDT [facility] External Provider LAB BLO OD ORDERABLES Final Result Performing Organization Address City/[facility]/ZIP Co de Phone Number [facility] [address] [place] [phone] * (ABNORMAL) Comprehensive Metabolic Panel (01/01/2023 10:20 AM EDT) Sodium 136 135 - 145 mmol/L [facility] Potassium 4.7 3.3 - 5.1 mmol/L [facility] Chloride 99 96 - 108 mmol/L [facility] Carbon Dioxide 28 22 - 29 mmol/L [facility] Anion Gap 14 12 - 20 [facility] Urea Nitrogen (BUN) 13 9 - 16 mg/dL [facility] Creatinine, Serum 0.80 0.5 - 1.4 mg/dL [facility] Creatinine Clr Calc Pharmacy 134.3 [facility] Comment:Provided height and weight: 175.26 cm,142.882 kg.eGFR (calculated from the MDRD study equation) and eCrCl(calculated from the Cockcroft-Gault equation) are based ondifferent parameters and may not yield comparable results.If eCrCl result is absurd, please check patient'sheight/weight. Estimated Glomerular Filt Rate >60 [facility] Comment:NOTE: For -Am erican individuals, multiply the result by 1.210.Chronic Kidney Disease: Estimated GFR < 60 mL/min/1.50a4Pvesgg Kidney Disease: Estimated GFR < 15 mL/min/1.73m2 Glucose 141(H) 60 - 115 mg/dL [facility] Calcium 10.0 8.4 - 10.2 mg/dL [facility] Bilirubin, Total 0.9 0.0 - 1.0 mg/dL [facility] Aspartate Amino Transferase 18 5 - 31 U/L [facility] Alanine Aminotransferase 14 0 - 31 U/L [facility] Total Protein 7.9 6.5 - 8.0 g/dL [facility] Albumin Level 4.0 3.5 - 5.0 g/dL [facility] Alkaline Phosphatase 85 39 - 117 U/L [facility] 01/01/2023 10:2 0 AM EDT 01/01/2023 10:20 AM EDT us [facility] External Provider LAB BLO OD ORDERABLES Final Result [facility] [address] [place] [phone] * TSH W/Reflex to FT4 (01/01/2023 10:20 AM EDT) TSH reflex Free T4 1.39 0.32 - 4.0 uIU/mL [facility] 01/01/2023 10:2 0 AM EDT 01/01/2023 10:20 AM EDT [facility] External Provider LAB BLO OD ORDERABLES Final Result Performing Organization Address City/[facility]/ZIP Co de Phone Number [facility] [address] [place] [phone] * Vitamin D, 25-Hydroxy, Total, Immunoassay (01/01/2023 10:20 AM EDT) Vitamin D 25-OH Total 23.8 >30 ng/mL [facility] Comment:Health Based Referen ce Values*< 20 ng/mL Okcrgblvo46-81 ng/mL Insufficient> 30 ng/mL Sufficient*Nay HASTINGS. N [...] 0 AM EDT 01/01/2023 10:20 AM EDT [facility] External Provider LAB BLO OD ORDERABLES Final Result Performing Organization Address [facility] Co de Phone Number [facility] [address] [place] [phone] * Vitamin B12 (01/01/2023 10:20 AM EDT) Vitamin B12 505 200 - 900 pg/mL [facility] Comment:NORMAL 200-900 PG/ML INDETERMINATE 160-199 PG/ML DEFICIENT < 160 PG/ML 01/01/2023 10:2 0 AM EDT 01/01/2023 10:20 AM EDT [facility] External Provider LAB BLO OD ORDERABLES Final Result Performing Organization Address [facility] Co de Phone Number [facility] [address] [place] [phone] * Ferritin (01/01/2023 10:20 AM EDT) Ferritin 192 10 - 250 ng/mL [facility] 01/01/2023 10:2 0 AM EDT 01/01/2023 10:20 AM EDT [facility] External Provider LAB BLO OD ORDERABLES Final Result Performing Organization Address [facility] de Phone Number [facility] [address] [place] [phone] * Hemoglobin A1c (01/01/2023 10:20 AM EDT) Hemoglobin A1c 6.8 % [facility] Comment:Hemoglobin A1C Refer ence Range Adults: 4.8 - 6.0 % Non diabetic: < 6.0 % Goal: < 7.0 %Additional Action Suggested: > 8.0 %Note: Hemoglobin A1c results are invalid for patients with abnormal amounts of HbF. Blood transfusions may impact the HbA1c concentration in the patient sample. Estimated Average Glucose 148 mg/dL [facility] Comment:eAG = Estimated ave rage glucose which is %A1C expressed asaverage glucose, using the formula of the I5Y-JzyeshfXymluqa Glucose study (ADAG), Diabetes Care, Vol.31,#8,2007 01/01/2023 10:2 0 AM EDT 01/01/2023 10:20 AM EDT [facility] External Provider LAB BLO OD ORDERABLES Final Result Performing Organization Address [facility] de Phone Number [facility] [address] [place] [phone] * APTT (01/01/2023 10:20 AM EDT) Partial Thromboplastin Time 35.0 26.0 - 36.4 SEC [facility] 01/01/2023 10:2 0 AM EDT 01/01/2023 10:20 AM EDT [facility] External Provider LAB BLO OD ORDERABLES Final Result Performing Organization Address [facility] Phone Number [facility] [address] [place] [phone] * Prothrombin Time-INR (01/01/2023 10:20 AM EDT) [facility] Prothrombin Time 12.9 10.0 - 13.1 SEC [facility] INTERNATIONAL NORM RATIO 1.1 0.9 - 1.1 [facility] Comment:INTERNATIONAL NORMAL IZED RATIO (INR) [...] 0 AM EDT 01/01/2023 10:20 AM EDT [facility] External Provider LAB BLO OD ORDERABLES Final Result Performing Organization Address [facility] de Phone Number [facility] [address] [place] [phone] * (ABNORMAL) CBC auto differential (01/01/2023 10:20 AM EDT) White Blood Count 11.3(H) 4.8 - 10.8 X10*3/uL [facility] Red Blood Count 5.09 4.20 - 5.50 X10*6/uL [facility] Hemoglobin 13.8 12.0 - 16.0 g/dl [facility] Hematocrit 44.1 37.0 - 47.0 % [facility] Mean Corpuscular Volume 86.6 80.0 - 98.0 fL [facility] Mean Corpuscular Hemoglobin 27.1 27.0 - 33.0 pg [facility] Mean Corpuscular HGB Conc 31.3 31.0 - 35.0 g/dl [facility] Red Cell Distribution Width 14.3 11.0 - 16.0 % [facility] Platelet Count 376 160 - 400 X10*3/uL [facility] Mean Platelet Volume 9.2(L) 9.4 - 12.3 fL [facility] Neutrophils Percent Auto 66.0 45 - 73 % [facility] Imm Gran Pct Auto 0.8(H) 0.0 - 0.4 % [facility] Lymphocytes Percent Auto 25.1 20 - 40 % [facility] Monocytes Percent Auto 5.5 2 - 11 % [facility] Eosinophils Percent Auto 2.0 0 - 4 % [facility] Basophils Percent Auto 0.6 0 - 2 % [facility] NRBC Pct Auto 0.0 0.0 - 0.2 /100WBC [facility] Neutrophils Absolute Auto 7.4 2.0 - 8.3 x10*3/uL [facility] Imm Gran Abs Auto 0.09(H) 0.00 - 0.03 X10*3/uL [facility] Lymphocytes Absolute Auto 2.8 1.2 - 4.9 X10*3/uL [facility] Monocytes Absolute Auto 0.6 0.1 - 1.2 X10*3/uL [facility] Eosinophils Absolute Auto 0.2 0.0 - 0.4 X10*3/uL [facility] Basophils Absolute Auto 0.1 0.0 - 0.2 X10*3/uL [facility] NRBC Abs Auto 0.000 0.0 - 0.012 X10*3/uL [facility] 01/01/2023 10:2 0 AM EDT 01/01/2023 10:20 AM EDT [facility] External Provider LAB BLO OD ORDERABLES Final Result Performing Organization Address [facility] de Phone Number [facility] [address] [place] [phone] * (ABNORMAL) Glucose, Whole Blood (11/13/2022 1:31 PM EDT) Glucose, Whole Blood 196(H) 60 - 115 mg/dL [facility] Comment:METER #: [id number] 5Testing performed in the Endocrinology Department [address] , [address], [facility]. 11/13/2022 1:31 PM EDT 11/13/2022 1:34 PM EDT [facility] External Provider LAB BLO OD ORDERABLES Final Result Performing Organization Address [facility] de Phone Number [facility] [address] [place] [phone] * Hemoglobin A1c (11/13/2022 1:14 PM EDT) Hemoglobin A1c 7.4 % [facility] Comment:Hemoglobin A1C Refer ence Range Adults: 4.8 - 6.0 % Non diabetic: < 6.0 % Goal: < 7.0 %Additional Action Suggested: > 8.0 %Note: Hemoglobin A1c results are invalid for patients with abnormal amounts of HbF. Blood transfusions may impact the HbA1c concentration in the patient sample. Estimated Average Glucose 166 mg/dL [facility] Comment:eAG = Estimated ave rage glucose which is %A1C expressed asaverage glucose, using the formula of the Q2H-LffdrguDhswdmp Glucose study (ADAG), Diabetes Care, Vol.31,#8,Mar. 2007 11/13/2022 1:14 PM EDT 11/13/2022 1:14 PM EDT us [facility] External Provider LAB BLO OD ORDERABLES Final Result [facility] [address] [place] [phone] documented in this encounter Visit Diagnoses Diagnosis Type 2 diabetes mellitus without complication, unspecified whether care home insulin use- Primary documented in this encounter Care Teams Ship Manager Relationship Specialty Start Date End Date Braulio Carbajal MD [address] [place] [phone] PCP - General Internal Medicine 12/14/19 04/28/24 documented as of this encounter
--- OUTSIDE RECORDS SUMMARY | 2025-05-25 10:42 | XMS_ITS | Encounter Summary ---
Author Organization [employer] Address [address] [facility] [address] [place] [address] Care Team Providers Care Tray Checker Name Role Phone Unavailable Primary Care Provider Unavailabl e Reason for Visit * Reason Comments Med Refill Encounter Details Date Type Department Care Team ([facility] st Contact Info) Description 11/02/[address] [facility] [address] [place] [address] Braulio Carbajal MD [address] [place] [address] Social History Tobacco Use Types Packs/Day Years [...]
--- OUTSIDE RECORDS SUMMARY | 2025-05-25 10:42 | XMS_ITS | Clinical Summary ---
Author Organization [employer] Address [address] [facility] 7t [place] [address] Care Team Providers Care Pharmacy Technician Assistant Name Role Phone Unavailable Primary Care [...] complication, unspecified whether care home insulin use Inject 1.5 mg under the skin 1 (one) time per week. 4 pen 11 08/17/19 23 Active albuterol 108 (90 Base) MCG/ACT inhalerIndications :Cough variant asthma Inhale 2 puffs every 4 (four) hours if needed for wheezing. 18 g 08/17/19 23 Active empagliflozin (Jardiance) 10 MGIndications:Type 2 diabetes mellitus with diabetic polyneuropathy, with long-term current use of insulin (HCC) TAKE 1 TABLET BY MOUTH EVERY DAY [...] your housing situation today? I have larakianna epderson 05/22/[address] you li [...] the past 12 months, has t he [employer], [place], oil or water [employer] threatened to shut off services in your [...] 2025 , 05/29/2023, 07/14/2022, Additional history exists Mammogram 05/25/2026 05/25/2024, 04/06, [...] unspecified whether care home insulin use (CMS/HCC) ZZZ HISTORICAL HEPATITIS C [...] PM EDT Narrative 05/25/2024 4:12 PM EDT [facility] [address] [place], [place] [address] Mammography Report Signed Patient: Julia López MR#: [id number] : 1975 Acct:[id number] Age/Sex: 48 / F ADM Date: 05/25/24 Loc: HO.MAMMO Attending Dr: Ryan Prescott MD Ordering Physician: Ryan Prescott MD Results: 2Ben ign Findings Date of Service: 05/25/24 Follow Up: 1 Year From Orig inal Mammogram Procedure(s): MM tomosynthesis diagnostic BI Accession Number(s): [id number] cc: Braulio Carbajal MD; Ryan Prescott MD [...] Lorenzo Rueda MD 05/25/2024 04:09 PM EDT RP Dictated By: Lorenzo Rueda MD Signed By: <Electronically signed by Lorenzo Rueda MD in OV> 05/25/24 1609 DD/ 1300 TD/TT: 05/25/24 1350 Talent Acquisition Director: Procedure Note Donotuseinterpreter, Image - 05/25/2024 [facility] [address] [place] [address] Mammography Report Signed Patient: Julia LópezMR#: [id number] : 1975Acct:[id number] Age/Sex: 48 / FADM Date: 05/25/24 Loc: HO.MAMMO Attending Dr: Ryan Prescott MD Ordering Physician: Ryan Prescottesults: 2Ben ign Findings Date of Service: 05/25/24Follow Up: 1 Year From Orig inal Mammogram Procedure(s): MM tomosynthesis diagnostic BI Accession Number(s): [id number] cc: Braulio Carbajal MD; Ryan Prescott MD [...] 05/25/24 1609 DD/ 1300 TD/TT: 05/25/24 1350 Talent Acquisition Director: us [facility] External Provider IMG BI PROCEDURES Edited Result - Final * Lipid Panel, Standard (01/01/2023 10:20 AM EDT) Triglycerides 73 mg/dL [facility] Comment:Desirable Triglyceri de: less than 150 mg/dLBorderline High Triglyceride 150-199 mg/dLHigh Triglyceride: 200-499 mg/dLVery High Triglyceride: greater than or equal to 5OO mg/dL Cholesterol 101 mg/dL [facility] Comment:Desirable Cholestero l: less than 200 mg/dLBorderline High Cholesterol: 200-239 mg/dLHigh Cholesterol: greater than 239 mg/dL LDL Cholesterol Calculated 53 mg/dl [facility] Comment:Desirable LDL: less than 100 mg/dLNear Optimal/Above Optimal LDL: 110- 129 mg/dLBorderline High LDL: 130-159 mg/dLHigh LDL: 160-189 mg/dLVery High LDL: greater than or equal to 190 mg/dL HDL Cholesterol 34 mg/dL [facility] Comment:Desirable HDL: great er than 40 mg/dL Note: This HDL assay may give artificially low results in patients with liver disease. 01/01/2023 10:2 0 AM EDT 01/01/2023 10:20 AM EDT [facility] External Provider LAB BLO OD ORDERABLES Final Result Performing Organization Address [facility] Co de Phone Number [facility] [address] [place] [address] [phone] * HEPATITIS C AB W/REFL TO HCV RNA, QN, PCR (01/24/2022 8:19 AM EDT) HEPATITIS C ANTIBODY NON-REACT SÁNCHEZ NON-REACT SÁNCHEZ [facility] INDEX 0.02 <1.00 [facility] Comment: HCV antibody was non-reactive. There is no laboratory evidence of HCV infection. In most cases, no further action is required. However, if recent HCV exposure is suspected, a test for HCV RNA (test code 34461) is suggested. For additional information please refer to http://education.[employer].[place]/faq/HWU44a1 (This link is being provided for informational/ educational purposes only.) 01/24/2022 8:19 AM EDT Braulio Campbell MD HISTORICAL/NON ORD ERABLE LABS Final Result Performing Organization Address City/[facility]/ZIP Co de Phone Number [facility] [address] * HIV 1/2 ANTIGEN/ANTIBODY,FOURTH GENERATION W/RFL (01/24/2022 8:19 AM EDT) HIV-1/2 ANTIGEN AND ANTIBODIES, 4TH GENERATION W/ REFLEX NON-REACT SÁNCHEZ NON-REACT SÁNCHEZ [facility] Comment: HIV-1 antigen and [...] purpose. For additional information please refer to http://education.[employer]/faq/IVX902 (This link is being provided for informational/ educational purposes only.) The performance of this assay has not been clinically validated in patients less than 2 years old. 01/24/2022 8:19 AM EDT us Braulio Campbell MD LAB BLOOD ORDERABL ES Final Result Performing Organization Address City/State/[facility] Co de Phone Number [facility] [address] from Last 3 Months or Most Recently Relevant to Health Maintenance Insurance [employer] MD [place]LA [phone]
== END 2025-05-25 10:19 | disposition home or self-care (01) ==
LOC: HO.HOP 09:30
PROVIDERS: PCP Family Medicine; Visit Provider Counselor Mental Health
DX: F90.2 Attention-deficit hyperactivity disorder, combined type (principal); F41.0 Panic disorder [episodic paroxysmal anxiety]; F32.A Depression, unspecified
CPT/HCPCS: 90837

== ENCOUNTER 2025-06-08 09:06 | Outpatient (AMB) | payer OTHER, SELFPAY ==
--- NOTE | 2025-06-08 09:00 | A.OFFWM_ITS ---
Intake Intake Visit Reasons: VIDEO OP Therapy Allergies Penicillins Allergy (Intermediate, Verified 03/16/25 13:12) Shortness of Breath pt states no food allergies Allergy (Unknown, Uncoded 03/16/25 13:12) Unknown [facility] Medical History Type 2 diabetes mellitus with retinopathy Asthma Insomnia Neuropathy Breast calcification, right Adenocarcinoma determined by biopsy of liver Diabetic retinopathy Anxiety and depression GERD (gastroesophageal reflux disease) SOLE on CPAP ADHD Hyperlipidemia HTN (hypertension) with goal to be determined Diabetes mellitus Morbid obesity Surgical History Hx of LASIK History of cholecystectomy Family History Mother Diabetes Heart problem Father Hypertension Maternal Grandmother Primary cancer of bone marrow Maternal Grandfather Prostate cancer Social History Are you a primary career orientation teacher to a significant other at home: No Do you presently have visiting nurse or other home services: No Alcohol intake: never Patient Tobacco Use Status: Never used Tobacco Female Reproductive History Menstrual Age of Menarche: 13 Behavioral Health Assessment Weight Management Therapy Therapy Notes Details Subjective: Patient reports feeling mildly stressed due to her father?s upcoming visit with his . She describes not being very close with her father and feeling conflicted about the visit. Patient notes increased stress eating and difficulty maintaining her usual routine, leading to feelings of disorganization. She also mentions an upcoming surgery and is in the process of preparing for it. Objective: Patient attended a behavioral health follow-up visit via Telehealth. She was engaged and able to articulate her concerns. Reflective listening was utilized throughout the session. Explored the impact of recent and anticipated routine c hanges on her sense of organization and patterns of stress eating. Provided psychoeducation and recommended the use of a ?junk journal? as a coping strategy for managing stress and emotional eating. Assessment/Response: * Mental status: Alert and oriented x3. Mood mildly anxious, affect congruent. Thought process logical and goal-directed. No evidence of psychosis or cogni tive impairment. * Risk reported/identified: Denies suicidal or homicidal ideation, intent, or plan. No acute safety concerns identified. Assessment & Plan Assessment & Plan (1) ADHD: Code(s): F90.9 - Attention-deficit hyperactivity disorder, unspecified type Qualifiers: Attention deficit-hyperactivity disorder type: combined inattentive- hyperactive Qualified Code(s): F90.2 - Attention-deficit hyperactivity disorder, combined type (2) Panic disorder: Code(s): F41.0 - Panic disorder [episodic paroxysmal anxiety] (3) Depression, unspecified: Code(s): F32.A - Depression, unspecified Plan Continue to monitor stress and coping strategies. Encourage use of junk journaling to process emotions and manage stress eating. Support patient in developing strategies to maintain routine during periods of change. * Follow-up appointment scheduled in 2 weeks: 06/22/2025 at 9:00 AM via video. Telehealth Telehealth Telehealth Platform: LessThan3 Location of provider rendering services: other (Home office. [place], [place]) Location of patient: address on file Patient Identification confirmed using: Name, : Yes Telehealth method: video Patient verbally consented to treatment: Yes Patient verbally consented to billing insurance company: Yes Patient informed of any privacy concerns related to visit: Yes Minutes spent on Phone/Video with Pt.: 70 [place] [address] Tele Psytx >53 mins Patient Type Established Diagnoses Attention deficit hyperactivity disorder (ADHD), combined type F90.2 Attention deficit-hyperactivity disorder type: combined inattentive- hyperactive Panic disorder F41.0 Depression, unspecified F32.A Time Spent (min) 70
--- OUTSIDE RECORDS SUMMARY | 2025-06-08 09:48 | XMS_ITS | Encounter Summary ---
Author Organization [employer] Address [address] [facility] 7t [place] [address] Care Team Providers Care Tool And Die Machinist Name Role Phone Unavailable Primary Care Provider Unavailabl e Reason for Visit * Reason Comments Med Refill Encounter Details Date Type Department Care Team ([facility] st Contact Info) Description 10/13/2024 Refill [facility] [address] [place] [address] Braulio Carbajal MD [address] [place] [address] Primary hypertension Social History Tobacco Use Types [...]
--- OUTSIDE RECORDS SUMMARY | 2025-06-08 09:48 | XMS_ITS | Encounter Summary ---
Author Organization [facility] Address [address] [place], [place] [id number] Care Team Providers Care Voice Network Administrator Name Role Phone Nicole Padron MD Primary Care Provider [phone] Reason for Visit * Reason Comments Medical Record Encounter Details Date Type Department Care Team (Late Contact Info) Description 03/23/2025 Abstract [facility] [place] [address] Unknown, Abstract Provider Social History Tobacco Use [...] AM EDT CPE - Comprehensive Physical Exam [facility] [address] [place] [phone] Bc Buckley, MAXIMO [address] [place] [address] CPE documented as of this encounter Goals [...] on filedocumented in this encounter Care Teams Voice Network Administrator Relationship Specialty Start Date End Date Nicole Padron MD [address] [facility] [place] [address] PCP - General Family Medicine 10/28/24 documented as of this encounter
--- OUTSIDE RECORDS SUMMARY | 2025-06-08 09:48 | XMS_ITS | Clinical Summary ---
Author Organization [address] [facility] Address [address] [place] [address] Phone Care Team Providers Care Box Spinner Name Role Phone Braulio Carbajal Primary Care [...] obesity with BMI of 4 5.0-49.9, adult ([facility] V24, [facility] V28) 04/02/2025 Class 3 severe obesity with serious comorbidity and body mass index (BMI) of 50.0 to 59.9 in adult ([facility] V24, [facility] V28) 01/18/2025 Class 3 severe obesity with serious comorbidity and body mass index (BMI) of 50.0 to 59.9 in adult ([facility] V24, [facility] V28) 12/18/2024 Class 3 severe obesity with serious comorbidity and body mass index (BMI) of 50.0 to 59.9 in adult ([facility] V24, [facility] V28) 07/20/2024 HTN (hypertension) 05/22/2024 IBS (irritable bowel syndrome) 05/22/2024 ADHD (attention deficit hype ractivity disorder), combined type 08/16/2014 Sleep apnea 06/28/2014 Morbid obesity ([facility] V24, [facility] V28) 2013 Overview (05/22/2024): BMI 52.25 on 06/05/13. Condition not found 06/05/2013 Overview (05/22/2024): Diabetes mellitus type II, uncontrolled Depression 04/05/2012 Encounters Date Type Department Care Team Description 03/31/2025 1:30 PM EDT Office Visit Bariatric Surgery - [address] [place] [phone] Gosia Stoner MD Low vitamin D level (Primary Dx); Morbid obesity ([facility] V24, [facility] V28); Sleep apnea, unspecified type; Hypertension, unspecified type; Type 2 diabetes mellitus with obesity ([facility] V24, [facility] V28) from Last 3 Months Immunizations Immunization Administration Dates Next Due Tdap Tetanus diptheria acell ular pertussis (Boostrix; Adacel) 7yo and older 12/11/2012 Surgical History Surgery Date Site/Laterality Comments CHOLECYSTECTOMY 1999 PROCEDURE: HISTORICAL CHOLECYSTECTOMY Medical History Medical History Date Comments HTN (hypertension) 2011 DX:HTN (hyper tension) DM (diabetes mellitus) ([facility] V24, [facility] V28) 2006 DX:DM (diabetes mellitus) (H CC) [...] 03/31/2025 1:27 PM EDT Plan of Treatment Upcoming Encounters Date Type Department Care Team (Late st Contact Info) Description 06/30/2025 11:00 AM EST Consult Bariatric Surgery [facility] [address] [phone] Prema aWllis, MECHE [address] [phone] 07/06/2025 10:30 AM EST Pre-Admission Testing [facility] Pre-Admission Testing [address] [place] [phone] 07/12/2025 12:45 PM EST Consult Bariatric Surgery [facility] [address] [phone] Gosia Stoner MD [address] [place] [phone] 07/16/2025 7:30 AM EST Hospital Encounter [facility] Main OR [address] [place] [phone] Gosia Stoner MD [address] [place] [phone] 07/16/2025 7:30 AM EST - 07/16/2025 10:[address] [facility] Main OR [address] [place] [phone] Gosia Stoner MD [address] [place] [phone] DAVINCI SLEEVE GASTRECTOMY [41643 (CPT )] 08/02/2025 11:00 AM EST Office Visit Bariatric Surgery - [address] [phone] Gosia Stoner MD [address] [place] [phone] 08/16/2025 11:00 AM EST Telemedicine Bariatric Surgery - [place] [address] [phone] Prema Wallis, RD [address] [phone] 09/21/2025 11:15 AM EST Office Visit Bariatric Surgery - [place] [address] [phone] Gosia Stoner MD [address] [place] [phone] Scheduled Procedures Name Priority Associated Diagnoses Date/Ti me GASTRECTOMY SLEEVE ROBOT Morbid obesity with BMI of 45.0-49.9, adult (CMS/HCC V24, CMS/HCC V28) 07/16/2025 7:30 AM EST Health Maintenance Due Date Last Done Comments Breast Cancer Screening 1976 Colorectal Cancer Screening: Colonoscopy 1976 Diabetes: Annual Foot Exam 1986 Diabetes: Annual Retina Eye Exam 1986 Hepatitis B Vaccines (1 of 3 - 19+ 3-dose series) 1995 Pneumococcal Vaccine: Pediatrics (0 to 5 Years) and At-Risk Patients (6 to 49 Years) (1 of 2 - PCV) 1995 Cervical Cancer Screening: Pap Smear 1997 Social Influencers of Health Screening 07/03/2022 Depression [...] Routine 07/20/2024 8:33 AM EST Morbid obesity ([facility] V24, [facility] V28) HEMOGLOBIN A1C Routine 07/20/2024 8:33 AM EST Morbid obesity ([facility] V24, [facility] V28) LIPID PANEL WITH REFLEX TO DIRECT LDL Routine 07/20/2024 8:33 AM EST Morbid obesity ([facility] V24, [facility] V28) URINE ALBUMIN CREATININE RATIO Routine 02/26/2014 from Last 3 Months or Most Recently Relevant to Health Maintenance Results * (ABNORMAL) Lipid panel with reflex to direct LDL (07/20/2024 8:33 AM EST) Cholesterol 179 0 - 200 mg/dL LAB CHEMISTRY METHOD 07/20/2024 11:24 AM EST [facility] Triglycerides 89 0 - 150 mg/dL LAB CHEMISTRY METHOD 07/20/2024 11:24 AM EST [facility] HDL 53 >=40 mg/dL LAB CHEMISTRY METHOD 07/20/2024 11:24 AM EST [facility] LDL Calculated 108(H) 0 - 100 mg/dL LAB CHEMISTRY METHOD 07/20/2024 11:24 AM EST [facility] VLDL Cholesterol Francisco J 17.8 mg/dL LAB CHEMISTRY METHOD 07/20/2024 11:24 AM EST [facility] Non HDL Chol. (LDL+VLDL) 126 <145 mg/dL LAB CHEMISTRY METHOD 07/20/2024 11:24 AM [facility] Chol/HDL Ratio 3.4 0.0 - 4.4 LAB CHEMISTRY METHOD 07/20/2024 11:24 AM [facility] Blood Venous blood specimen / Unknown Venipuncture / Unknown 07/20/2024 8:33 AM EST 07/20/2024 8:33 AM EST us Gosia Stoner MD LAB BLOOD ORDERABLES Fi nal Result Performing Organization Address [facility]/ZIP Co de Phone Number [facility] [address] [place] [address], [place] [phone] * (ABNORMAL) Hemoglobin A1c (07/20/2024 8:33 AM EST) Hemoglobin A1C 7.9(H) <6.5 % LAB CHEMISTRY METHOD 07/20/2024 2:41 PM EST [facility] Mean Bld Glu Estim. 180 mg/dL LAB CHEMISTRY METHOD 07/20/2024 2:41 PM EST [facility] Blood Venous blood specimen / Unknown Venipuncture / Unknown 07/20/2024 8:33 AM EST 07/20/2024 8:33 AM EST us Gosia Stoner MD LAB BLOOD ORDERABLES Fi nal Result Performing Organization Address City/[facility]/ZIP Co de Phone Number [facility] [address] [place] [address], [place] [phone] * (ABNORMAL) Comprehensive metabolic panel (07/20/2024 8:33 [...] [facility] Comment:Calculation based on the [...] 07/20/2024 11:24 AM [facility] Alkaline Phosphatase 124(H) 42 - 121 unit/L LAB CHEMISTRY METHOD 07/20/2024 11:24 AM [facility] Total Protein 7.7 6.0 - 8.0 g/dL LAB CHEMISTRY METHOD 07/20/2024 11:24 AM EST [facility] Albumin 3.6 3.2 - 5.0 g/dL LAB CHEMISTRY METHOD 07/20/2024 11:24 AM EST [facility] Total Bilirubin 0.4 0.0 - 1.4 mg/dL LAB CHEMISTRY METHOD 07/20/2024 11:24 AM EST [facility] Blood Venous blood specimen / Unknown Venipuncture / Unknown 07/20/2024 8:33 AM EST 07/20/2024 8:33 AM EST Gosia Stoner MD LAB BLOOD ORDERABLES Fi nal Result [facility] [address] [place] [address], * Urine Albumin Creatinine Ratio (02/26/2014) Urine Albumin Creatinine Ratio Abstracted Historical Provider HEALTH MAINTENANCE Final Result from Last 3 Months or Most Recently Relevant to Health Maintenance Insurance [employer] Care Teams Box Spinner Relationship Specialty Start Date End Date Braulio Carbajal [address] [place] [address] PCP - General Internal Medicine 03/20/22
--- OUTSIDE RECORDS SUMMARY | 2025-06-08 09:48 | XMS_ITS | Clinical Summary ---
Author Organization [employer] Address [address] [facility] 7t [place] [address] Care Team Providers Care Edger Saw Operator Name Role Phone Unavailable Primary Care [...] 2 diabetes mellitus without complication, unspecified whether correction insulin use Inject 1.5 mg under the [...] the past 12 months, has t he [employer], [employer], oil or water [employer] threatened to shut off services in your [...] 2 diabetes mellitus without complication, unspecified whether correction insulin use (CMS/HCC) ZZZ HISTORICAL HEPATITIS C [...] PM EDT Narrative 05/25/2024 4:12 PM EDT [facility] [address] [place], [place] [address] Mammography Report Signed Patient: Julia López MR#: [id number] : 1975 Acct:[id number] Age/Sex: 48 / F ADM Date: 05/25/24 Loc: HO.MAMMO Attending Dr: Ryan Prescott MD Ordering Physician: Ryan Prescott MD Results: 2Ben ign Findings Date of Service: 05/25/24 Follow Up: 1 Year From Orig inal Mammogram Procedure(s): MM tomosynthesis diagnostic BI Accession Number(s): [id number] cc: Braulio Carbajal MD; Ryan Prescott MD [...] their next mammogram. Electronically signed by: Lorenzo uReda MD 05/25/2024 04:09 PM EDT RP Dictated By: Lorenzo Rueda MD Signed By: <Electronically signed by Lorenzo Rueda MD in OV> 05/25/24 1609 DD/ 1300 TD/TT: 05/25/24 1350 Structural Drafter: Procedure Note Donotuseinterpreter, Image - 05/25/2024 [facility]'s [address] [place] [address] Mammography Report Signed Patient: Julia LópezMR#: [id number] : 1975Acct:[id number] Age/Sex: 48 / FADM Date: 05/25/24 Loc: HO.MAMMO Attending Dr: Ryan Prescott MD Ordering Physician: Ryan Prescottesults: 2Ben ign Findings Date of Service: 05/25/24Follow Up: 1 Year From Orig inal Mammogram Procedure(s): MM tomosynthesis diagnostic BI Accession Number(s): [id number] cc: Braulio Carbajal MD; Ryan Prescott MD [...] 05/25/24 1609 DD/ 1300 TD/TT: 05/25/24 1350 Structural Drafter: us [facility] External Provider IMG BI PROCEDURES Edited Result - Final * Lipid Panel, Standard (01/01/2023 10:20 AM EDT) Triglycerides 73 mg/dL [facility] Comment:Desirable Triglyceri de: less than 150 mg/dLBorderline High Triglyceride 150-199 mg/dLHigh Triglyceride: 200-499 mg/dLVery High Triglyceride: greater than or equal to 5OO mg/dL Cholesterol 101 mg/dL [facility] Comment:Desirable Cholestero l: less than 200 mg/dLBorderline High Cholesterol: 200-239 mg/dLHigh Cholesterol: greater than 239 mg/dL LDL Cholesterol Calculated 53 mg/dl [facility] Comment:Desirable LDL: less than 100 mg/dLNear Optimal/Above Optimal LDL: 110- 129 mg/dLBorderline High LDL: 130-159 mg/dLHigh LDL: 160-189 mg/dLVery High LDL: greater than or equal to 190 mg/dL HDL Cholesterol 34 mg/dL [facility] Comment:Desirable HDL: great er than 40 mg/dL Note: This HDL assay may give artificially low results in patients with liver disease. 01/01/2023 10:2 0 AM EDT 01/01/2023 10:20 AM EDT [facility] External Provider LAB BLO OD ORDERABLES Final Result Performing Organization Address [facility] Co de Phone Number [facility] [address] [place] [address] [phone] * HEPATITIS C AB W/REFL TO HCV RNA, QN, PCR (01/24/2022 8:19 AM EDT) HEPATITIS C ANTIBODY NON-REACT SÁNCHEZ NON-REACT SÁNHCEZ [facility] INDEX 0.02 <1.00 [facility] Comment: HCV antibody was non-reactive. There is no laboratory evidence of HCV infection. In most cases, no further action is required. However, if recent HCV exposure is suspected, a test for HCV RNA (test code 92564) is suggested. For additional information please refer to http://education.Entech Solar.MaxPreps/faq/NBA38a9 (This link is being provided for informational/ educational purposes only.) 01/24/2022 8:19 AM EDT Braulio Campbell MD HISTORICAL/NON ORD ERABLE LABS Final Result Performing Organization Address City/[facility]/ZIP Co de Phone Number [facility] [address] * HIV 1/2 ANTIGEN/ANTIBODY,FOURTH GENERATION W/RFL (01/24/2022 8:19 AM EDT) HIV-1/2 ANTIGEN AND ANTIBODIES, 4TH GENERATION W/ REFLEX NON-REACT SÁNCHEZ NON-REACT SÁNCHEZ [facility] Comment: HIV-1 antigen and HIV-1/HIV-2 [...] purpose. For additional information please refer to http://education.OffSite VISION/faq/BOV355 (This link is being provided for informational/ educational purposes only.) The performance of this assay has not been clinically validated in patients less than 2 years old. 01/24/2022 8:19 AM EDT us Braulio Campbell MD LAB BLOOD ORDERABL ES Final Result Performing Organization Address City/State/[facility] Co de Phone Number [facility] [address] from Last 3 Months or Most Recently Relevant to Health Maintenance Insurance GENERIC COMMERCIAL MD [place] [phone]
--- OUTSIDE RECORDS SUMMARY | 2025-06-08 09:48 | XMS_ITS | Encounter Summary ---
Author Organization [facility] Address [address] [place] [address] Care Team Providers Care Twist Packer Name Role Phone Nicole Padron MD Primary Care Provider [phone] Encounter Details Date Type Department Care Team (Late st Contact Info) Description 03/02/2025 Orders Only [facility] [address] [place] [phone] Bc Buckley, [facility] [address] [place] [address] Social History Tobacco Use Types Packs/Day Years [...] Score 0 02/03 9:32 AM EDT Dylon [place] * Little interest or pleasure in doing [...] Comprehensive Physical Exam [facility] [address] [place] [address] Bc Buckley DNP [address] [place] [address] CPE documented as of this encounter Goals [...] of this encounter Procedures * Due to [place] BitX law, this organization might not be sharing [...] in this encounter Results * Due to [place] BitX law, this organization might not be sharing negative HIV tests. * (ABNORMAL) HEMOGLOBIN A1C (03/02/2025 10:42 AM EDT) Hemoglobin A1C 7.6(H) <5.7 % [facility] Comment: For someone without known diabetes, a [...] 5:44 PM EDT Narrative Resulting Agency Comment [id number] Bc Buckley [facility] Final Result Performing Organization Address [facility] de Phone Number [facility] [address] [place] [address] * (ABNORMAL) LIPID PANEL WITH REFLEX TO [...] LDL-C. Darci SS et al. COY. 2013;310(19): 9666-4274 (http://education.Earth Networks.Altruja/faq/KMW563) CHOL/HDL Ratio 3.8 <5.0 (calc) [facility] Cholesterol Non-HDL 134(H) <130 mg/dL (calc) [facility] Comment: For patients with diabetes plus 1 major ASCVD risk factor, treating to a non-HDL-C goal of <100 mg/dL (LDL-C of <70 mg/dL) is considered a therapeutic option. 03/02/2025 10:4 2 AM EDT 03/02/2025 5:44 PM EDT Narrative Resulting Agency Comment [id number] Bc Buckley [facility] Final Result Performing Organization Address [facility]/State/ZIP Co de Phone Number [facility] [address] [place] [address] * ALBUMIN (MICROALBUMIN), RANDOM URINE, WITH CREATININE [...] 5:44 PM EDT Narrative Resulting Agency Comment [id number] Bc Buckley [facility] Final Result Performing Organization Address City/[facility] de Phone Number [facility] [address] [place] [address] * (ABNORMAL) BASIC METABOLIC PANEL WITH (GFR) [...] needs for GFR calculation. Resulting Agency Comment [id number] Bc Buckley [facility] Final Result Performing Organization Address [facility] Co de Phone Number [facility] [address] [place] [address] * HEPATITIS C AB WITH REFLEX TO RNA PCR, SERUM (03/02/2025 10:42 AM EDT) Hepatitis C virus Ab NON-REACT SÁNCHEZ NON-REACT SÁNCHEZ [facility] Comment: HCV antibody was non-reactive. There is no laboratory evidence of HCV infection. In most cases, no further action is required. However, if recent HCV exposure is suspected, a test for HCV RNA (test code 69393) is suggested. For additional information please refer to http://education.eCullet/faq/DYT82k3 (This link is being provided for informational/ educational purposes only.) 03/02/2025 10:4 2 AM EDT 03/02/2025 5:44 PM EDT Narrative Resulting Agency Comment [id number] Bc Buckley [facility] Final Result Performing Organization Address [facility] Co de Phone Number [facility] [address] [place] [address] documented in this encounter Visit Diagnoses Diagnosis Need for hepatitis C screening test Special screening examination for other specified viral diseases Type 2 diabetes mellitus without complication, with long-term current use of insulin (HCC) documented in this encounter Care Teams Twist Packer Relationship Specialty Start Date End Date Nicole Padron MD [address] [facility] [place] [address] PCP - General Family Medicine 10/28/24 documented as of this encounter
--- OUTSIDE RECORDS SUMMARY | 2025-06-08 09:48 | XMS_ITS | Data Portability ---
Author Organization [place] [facility] [place] Address [address] [place] [address] Care Team Providers Care Correspondence Renew Clerk Name Role Phone JAVIER LANGLEY Referring Provider [phone] Assessment Encounter Date Assessment Date Assessment LastModified by Organization Details LastModified Time 06/18/2024 06/18/2024 IMPRESSION: 49-year-old [id number] t woman with RIGHT lateral epicondylitis. PLAN: [...] proper use of pain medications, including alternating anti inflammatories with antipyretics for synergistic pain relief [...] questions satisfactorily. Thank you for this consultation [email or web address] Not available 06/18/2024 14:12:59 07/07/2024 07/07/2024 49-year-old [...] Gonzalez MS, PA-C in indirect conjunction with [facility] provider Clark Andino MD. He [...] Fluoroscopy guided, please contact patient directly to schedule Diagnosis: Left hip pain. Ultrasound or x-ray guided intra-artic ular injection of steroid and short and/or long-acting anesthetic to femoral-thony tabular joint. Please document pre and post procedure pain levels (0-10 scale). 2023 [email or web address] [facility], [address] [place] [address], [address], [place], [address], 5 15:48:51 Surgeries None recorded. Imaging XR, hip, unilateral, 2 or 3 view 2023 024 [email or web address] [facility], [address], [address], [place], [address], 4 11:51:40 XR, elbow, 3 or more view 2023 024 [facility], [address], [address], [place], [address], 4 16:54:16 Medication Orders meloxicam 15 mg tablet 2023 024 [facility], [address] [facility], [place], [address], 4 14:11:51 Patient TargetsNo targets recorded. Patient Instructions Encounter Date Encounter Id Patient Instructions Last Modified By Organization Details Last Modified Time 06/18/2024 [id number] tennis elbow: exercises Not available 06/18/2024 14:11:37 Imaging: RIGHT elbow three view radiographs including AP, oblique, and lateral views were ordered by me, obtained today, reviewed with the patient, and independently interpreted by me as demonstrating a concentrically reduced ulnohumeral joint and radiocapitellar joint without any evidence of fracture, dislocation, arthritis, calcification, joint effusion, or other acute osseous abnormalities. Essentially normal radiographic series of the RIGHT elbow. Not available 06/18/2024 13:55:08 07/07/2024 [id number] 4 view X-ray lory dy obtained during today's office encounter show evidence of mild left hip osteoarthritis. There is joint space narrowing, subchondral sclerosis and marginal osteophytosis. Kellgren-Richi grade 2. No evidence of acute fracture or osteolytic [...] Organization Details Recorded Time Lateral epicondyli tis 851933519 Active [address], [place], [address] , [place] [facility], P 4 14:10:53 Lateral epicondyli tis 691024610 Active [address], [place], [address] , [place] [facility], P 4 14:11:09 Osteoarthr itis of left hip joint 2643667966651 08 Active [address], [place], [address] , [place] [facility], P 4 11:06:02 Problem Notes None recorded. [...] Diagnosis SNOMED-CT Code Diagnosis ICD10 Code Diagnosis IMO Codes Diagnosis Note 53975 Oscar Avina MD [facility] [address] [place] [address] [address] [place] [address] 06/18/2024 13:20:00 06/18/2024 14:16:30 Pain of elbow region 01328655 M25.521 656304 Lateral epicondylitis 20 7183640 M77.10 [id number] 13112 GERARD GONZALEZ PA-C [address] [place] [phone] 07/07/2024 10:17:23 07/07/2024 11:04:15 Pain of hip region 88866375 M25.344 2630142 Osteoarthr itis of left hip joint 3753436263 09835 M16.12 [id number] Health Concerns Section Related Observation LastModified by Organization Detai ls LastModified Time None Recorded Concern Status LastModified by Organization Details LastModified Time None Recorded Advance Directives Directive None Recorded Payers Insurance Date Sequence Insurance Name Policy Number Policy Fountain Covered Member ID Fountain Member ID Guarantor Name 11/16/2024 1 [employer] [id number] Julia López Colon [id number] Julia King on Notes Date Note Type Note Provider Name and Address Organization Details Recorded Time 06/18/2024 text/html ROS as noted in the HPI Patient is a 49-year-old woman presenting with [...] 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 She is [id number] . Oscar Avina MD [address], [place], [address], [place] [facility], P 06/18/2024 14:13:14 07/07/2024 text/html 49-year-old female with chief complaint of left hip pain. [...] GERARD GONZALEZ PA-C [address], [place], [address], [place] [facility], P 07/07/2024 11:07:40 OBGyn Episode No OBEpisode recorded.
--- OUTSIDE RECORDS SUMMARY | 2025-06-08 09:48 | XMS_ITS | Encounter Summary ---
Author Organization [employer] Address [address] [facility] [address] [place] [address] Care Team Providers Care Wire Tinner Name Role Phone Unavailable Primary Care Provider Unavailabl e Reason for Visit * Reason Comments Med Refill Encounter Details Date Type Department Care Team ([facility] st Contact Info) Description 10/19/2024 Refill [facility] [address] [place] [address] Braulio Carbajal MD [address] [place] [address] Social History Tobacco Use Types Packs/Day Years [...]
--- OUTSIDE RECORDS SUMMARY | 2025-06-08 09:48 | XMS_ITS | Encounter Summary ---
Author Organization [facility] Address [address] [place], [place] [address] Care Team Providers Care Director Investor Relations Name Role Phone Nicole Padron MD Primary Care Provider [phone] Reason for Visit * Reason Comments Medical Record Encounter Details Date Type Department Care Team (Late Contact Info) Description 03/23/2025 Abstract [facility] [place] [address] Unknown, Abstract Provider Social History Tobacco Use [...] CPE - Comprehensive Physical Exam [facility] [address] [place] [phone] Bc Buckley, MAXIMO [address] [place] [address] CPE documented as of this encounter Goals [...] on filedocumented in this encounter Care Teams Director Investor Relations Relationship Specialty Start Date End Date Nicole Padron MD [address] [facility] [address] PCP - General Family Medicine 10/28/24 documented as of this encounter
--- OUTSIDE RECORDS SUMMARY | 2025-06-08 09:48 | XMS_ITS | Clinical Summary ---
Author Organization [facility] Address [address] [place] [address] Care Team Providers Care Ship Self Defense System Mk1 Operator Name Role Phone Nicole Padron MD Primary Care Provider [phone] Allergies Active Allergy Reactions Criticality Noted Date Comments Penicillins Anaphylaxis 11/11/2012 Medications Tresiba FlexTouch 200 UNIT/ML pen-injector Inject 20 Units under the skin every night. 10/19/2024 Active Fluoxetine (PROzac) 20 MG capsule Take 20 mg by mouth 1 (one) time each day. 02/11/2025 Active Continuous Glucose Sensor (FreeStyle Alexei 3 Plus Sensor) Device 1 Units. 02/11/2025 Active Lisinopril (PRINIVIL,ZESTRI L) 10 MG tablet Take 10 mg by mouth 1 (one) time each day. 01/05/2025 Active Mounjaro 15 MG/0.5ML pen-injector Inject 15 mg under the skin every 7 (seven) days 02/11/2025 Active Lisdexamfetamine Dimesylate (VYVANSE) 70 MG capsule Take 70 [...] every 6 (six) hours if needed. Active Risankizumab-rza a (Skyrizi Pen) 150 MG/ML auto-injector Inject 150 mg under the skin 1 (one) time. Active Active Problems Problem Noted Date Diagnosed Date Class 3 severe obesity in adult 03/02/2025 Overview (03/02/2025): 03/02/2025 following with bariatric provider through [facility] in [place]. Requesting referral. Order placed Type 2 diabetes mellitus wit hout complication, with long-term current use of insulin 03/02/2025 Anxiety and depression 03/02/2025 Overview (03/02/2025): 03/02/2025 stable on current medications. Following with outside psychiatrist Psoriasis 03/02/2025 Overview (03/02/2025): 03/02/2025 stable with Skyrizi. Follows with outside mechanical technologist HTN (hypertension) 05/22/2024 Overview (03/02/2025): 03/02/2025 stable on current medications ADHD (attention deficit hype ractivity disorder), combined type 08/16/2014 Overview (03/02/2025): 03/02/2025 stable on Vyvanse. Following with outside psychiatrist Encounters Date Type Department Care Team Description 04/06/2025 Results Follow-Up [address] [phone] Nicole Padron MD CULTURE, URINE, ROUTINE, URINALYSIS, COMPLETE INCLUDES DIPSTICK AND MICROSCOPIC 03/30/2025 Orders Only [address] [phone] Nicole Padron MD 03/23/[address] [address] Unknown, Abstract Provider 03/23/2025 Abstract [facility] [place] [address] Unknown, Abstract Provider from Last 3 Months Immunizations Immunization Administration [...] AM EDT CPE - Comprehensive Physical Exam [facility] [address] [place] [phone] Bc Buckley, DNP [address] [place] [address] CPE Health Maintenance Due Date Last Done [...] 120 is ideal. Procedures * Due to [place] state law, this organization might not be sharing negative HIV tests. Procedure Name Priority Date/Time Associated Diagnosis Comments URINALYSIS, COMPLETE INCLUDES DIPSTICK AND MICROSCOPIC Routine 03/30/2025 12:26 PM EDT Dysuria CULTURE, URINE, ROUTINE Routine 03/30/2025 12:26 PM EDT Dysuria BASIC METABOLIC PANEL WITH (GFR) Routine 03/02/2025 10:42 AM EDT Type 2 diabetes mellitus without complication, with long-term current use of insulin (HCC) HEPATITIS C AB WITH REFLEX TO RNA PCR, SERUM Routine 03/02/2025 10:42 AM EDT Need for hepatitis C screening test ALBUMIN (MICROALBUMIN), RANDOM URINE, WITH CREATININE Routine 03/02/2025 10:42 AM EDT Type 2 diabetes mellitus without complication, with long-term current use of insulin (HCC) HEMOGLOBIN A1C Routine 03/02/2025 10:42 AM EDT Type 2 diabetes mellitus without complication, with long-term current use of insulin (HCC) LIPID PANEL WITH REFLEX TO DIRECT LDL Routine 03/02/2025 10:42 AM EDT Type 2 diabetes mellitus without complication, with long-term current use of insulin (HCC) from Last 3 Months or Most Recently Relevant to Health Maintenance Results * Due to [place] [facility] law, this organization might not be sharing negative HIV tests. * (ABNORMAL) CULTURE, URINE, ROUTINE (03/30/2025 12:26 PM EDT) Bacteria culture (Urine) SEE NOTE(A) [facility] Comment: CULTURE, URINE, ROUTINE Micro Number: [id number] Test Status: Final Specimen Source: Not given [...] 1:20 AM EDT Narrative Resulting Agency Comment [id number] us Nicole Padron MD LABORATORY Final Result [facility] [address] [place] [address] * (ABNORMAL) URINALYSIS, COMPLETE INCLUDES DIPSTICK AND [...] 1:20 AM EDT Narrative Resulting Agency Comment [id number] Nicole Padron MD LAB SAME DAY RESULT Final Result Performing Organization Address [facility] de Phone Number [facility] [address] [place] [address] * HEPATITIS C AB WITH REFLEX TO RNA PCR, SERUM (03/02/2025 10:42 AM EDT) Hepatitis C virus Ab NON-REACT SÁNCHEZ NON-REACT SÁNCHEZ [facility] Comment: HCV antibody was non-reactive. There is no laboratory evidence of HCV infection. In most cases, no further action is required. However, if recent HCV exposure is suspected, a test for HCV RNA (test code 23160) is suggested. For additional information please refer to http://education.Capsule Tech/faq/MAX35b7 (This link is being provided for informational/ educational purposes only.) 03/02/2025 10:4 2 AM EDT 03/02/2025 5:44 PM EDT Narrative Resulting Agency Comment [id number] Bc Buckley DNP LABORATORY Final Result Performing Organization Address [facility] de Phone Number [facility] [address] [place] [address] * (ABNORMAL) HEMOGLOBIN A1C (03/02/2025 10:42 AM [...] 5:44 PM EDT Narrative Resulting Agency Comment [id number] Bc Buckley [facility] Final Result Performing Organization Address City/[facility]/ZIP Co de Phone Number [facility] [address] [place] [address] * ALBUMIN (MICROALBUMIN), RANDOM URINE, WITH CREATININE [...] 5:44 PM EDT Narrative Resulting Agency Comment [id number] Bc Buckley [facility] Final Result Performing Organization Address City/[facility]/ZIP Co de Phone Number [facility] [address] [place] [address] * (ABNORMAL) LIPID PANEL WITH REFLEX TO [...] factors. LDL-C is now calculated using the Darci-Dominique calculation, which is a validated novel method providing better accuracy than the Friedewald equation in the estimation of LDL-C. Darci LOPEZ et al. COY. 2013;310(19): 4454-5638 (http://education.Comprehend Systems.SLM Technologies/faq/OSS591) CHOL/HDL Ratio 3.8 <5.0 (calc) [facility] Cholesterol Non-HDL 134(H) <130 mg/dL (calc) [facility] Comment: For patients with diabetes plus 1 major ASCVD risk factor, treating to a non-HDL-C goal of <100 mg/dL (LDL-C of <70 mg/dL) is considered a therapeutic option. 03/02/2025 10:4 2 AM EDT 03/02/2025 5:44 PM EDT Narrative Resulting Agency Comment [id number] Bc Buckley [facility] Final Result [facility] [address] [place] [address] * (ABNORMAL) BASIC METABOLIC PANEL WITH (GFR) [...] needs for GFR calculation. Resulting Agency Comment [id number] Bc Buckley [facility] Final Result [facility] [address] [place] [address] from Last 3 Months or Most Recently Relevant to Health Maintenance Insurance COMMERCIAL MD TAYLA [id number] Care Teams Ship Self Defense System Mk1 Operator Relationship Specialty Start Date End Date Nicole Padron MD [address] [facility] [place] [address] PCP - General Family Medicine 10/28/24
--- OUTSIDE RECORDS SUMMARY | 2025-06-08 09:48 | XMS_ITS | Clinical Summary ---
Author Organization [facility] Address [address] [place] [address] Care Team Providers Care Clinical Information Systems Director Name Role Phone Braulio Lopez MD Primary Care Provider [phone] Allergies Active Allergy Reactions Criticality Noted Date [...] age to complete this topic Care Teams Clinical Information Systems Director Relationship Specialty Start Date End Date Braulio Lopez MD [address] [place] [phone] PCP - General Internal Medicine 03/20/22
--- OUTSIDE RECORDS SUMMARY | 2025-06-08 09:48 | XMS_ITS | Encounter Summary ---
Author Organization [facility] Address [address] [place] [id number] Care Team Providers Care Corduroy Cutting Supervisor Name Role Phone Nicole Padron MD Primary Care Provider [phone] Encounter Details Date Type Department Care Team (Late Contact Info) Description 03/30/2025 Orders Only [address] [id number] Nicole Padron MD [address] [place] [id number] Social History Tobacco Use Types Packs/Day Years [...] AM EDT CPE - Comprehensive Physical Exam [address] [id number] Bc Buckley, MAXIMO [address] [place] [address] CPE documented as of this encounter Goals [...] of this encounter Procedures * Due to [place] state law, this organization might not be sharing negative HIV tests. Procedure Name Priority Date/Time Associated Diagnosis Comments CULTURE, URINE, ROUTINE Routine 03/30/2025 12:26 PM EDT Dysuria URINALYSIS, COMPLETE INCLUDES DIPSTICK AND MICROSCOPIC Routine 03/30/2025 12:26 PM EDT Dysuria documented in this encounter Results * Due to [place] state law, this organization might not be [...] 1:20 AM EDT Narrative Resulting Agency Comment [id number] Nicole Padron MD LAB SAME DAY RESULT Final Result Performing Organization Address City/State/[facility] Co de Phone Number [facility] [address] [place] [address] * (ABNORMAL) CULTURE, URINE, ROUTINE (03/30/2025 12:26 PM EDT) Bacteria culture (Urine) SEE NOTE(A) [facility] Comment: CULTURE, URINE, ROUTINE Micro Number: [id number] Test Status: Final Specimen Source: Not given [...] 1:20 AM EDT Narrative Resulting Agency Comment [id number] Nicole Padron MD LABORATORY Final Result Performing Organization Address City/State/[facility] Phone Number [facility] [address] [place] [address] documented in this encounter Visit Diagnoses Diagnosis Dysuria documented in this encounter Care Teams Corduroy Cutting Supervisor Relationship Specialty Start Date End Date Nicole Padron MD [address] [facility] [address] PCP - General Family Medicine 10/28/24 documented as of this encounter
--- OUTSIDE RECORDS SUMMARY | 2025-06-08 09:48 | XMS_ITS | Encounter Summary ---
Author Organization [facility] Address [address] [place] [id number] Care Team Providers Care Supervisor Graphite Name Role Phone Braulio Carbajal MD Primary Care Prov ider Reason for Visit * Reason Comments Med Refill Encounter Details Date Type Department Care Team (Late st Contact Info) Description 10/29/[address] [facility] [address] [place], [place] [phone] Braulio Carbajal MD [address] [place] [address] Social History Tobacco Use Types Packs/Day Years [...] on filedocumented in this encounter Care Teams Supervisor Graphite Relationship Specialty Start Date End Date Braulio Carbajal MD [address] [place] [address] PCP - General Internal Medicine 12/14/19 04/28/24 documented as of this encounter
--- OUTSIDE RECORDS SUMMARY | 2025-06-08 09:48 | XMS_ITS | Encounter Summary ---
Author Organization [facility] Address [address] [facility] [address] [place] [address] Care Team Providers Care Chemical Test Engineer Name Role Phone Unavailable Primary Care Provider Unavailabl e Reason for Visit * Reason Comments Med Refill Encounter Details Date Type Department Care Team ([facility] st Contact Info) Description 11/02/2024 Refill [facility] [address] [place] [address] Braulio Carbajal MD [address] [place] [address] Social History Tobacco Use Types Packs/Day Years [...]
--- OUTSIDE RECORDS SUMMARY | 2025-06-08 09:48 | XMS_ITS | Data Portability ---
Author Organization [place] - [facility] in [facility],, ADRIANA LARA MD Address [address] [address] Assessment No assessment recorded. Plan of Treatment Reminders Order Date Submit Date Provider Last Modified By Organization Details Last Modified Time Details Appointments None recorded. Lab pap test, thinprep, cervical 2021 022 [email or web address] [facility], Cytopathology Service, [address] [place] [address], [address], 2 07:36:24 fecal occult blood, stool 2021 022 [email or web address] In-Office Order, Internal Use Only DO Not Attach Compendium DO Not Attach Compendium, Do Not Delete/merge, [id number] 2 11:34:07 pap test, thinprep, cervical 2020 021 [email or web address] [facility], Cytopathology Service, [address] [place] [address], [address], 1 07:14:16 fecal occult blood, stool 2020 021 [email or web address] 1 In-Office Order, Internal Use Only DO Not Attach Compendium DO Not Attach Compendium, Do Not Delete/merge, [id number] 13:58:54 pap test, thinprep, cervical 2019 020 [email or web address] [facility], Cytopathology Service, [address] [place] [address], [address], 0 08:59:10 fecal occult blood, stool 2019 020 [email or web address] In-Office Order, Internal Use Only DO Not Attach Compendium DO Not Attach Compendium, Do Not Delete/merge, [id number] 0 08:59:10 pap test, thinprep, cervical 2018 019 [facility], Cytopathology Service, [address] [place] [address], [address], 9 04:32:23 fecal occult blood, stool 2018 019 [email or web address] In-Office Order, Internal Use Only DO Not Attach Compendium DO Not Attach Compendium, Do Not Delete/merge, [id number] 9 07:31:20 pap test, thinprep, cervical 2014 015 [facility], Cyt[facility] Service, [address] [place] [address], [address], 5 12:26:29 chlamydia sp, culture, unspecifi ed specimen 2014 015 [facility], Cytopathology Service, [address] [place] [address], [address], 5 08:24:20 NG DNA, PCR, genital 2014 015 [facility], Cytopathology Service, [address] [place] [address], [address], 5 08:24:20 test, urine 2014 015 [email or web address] 1 In-Office Order, Internal Use Only DO Not Attach Compendium DO Not Attach Compendium, Do Not Delete/merge, [id number] 5 11:43:08 Referral None recorded. Procedures None recorded. Surgeries None recorded. Imaging MAMMO, screening , digital, bilateral 2021 022 [facility], [address], [address], [place], [address], 4 07:16:34 MAMMO, screening , digital, bilateral 2020 021 [facility] Orders, [address], [address], [place], [address], 2 07:36:18 MAMMO, screening , digital, bilateral 2019 020 [facility] (Mammography), [address] [facility], [place], [address], 1 07:41:40 MAMMO, screening , digital, bilateral 2018 019 [facility] Orders, [address], [address], [place], [address], 0 07:25:26 Medication Orders None recorded. Patient TargetsNo targets recorded. Patient Instructions Encounter Date Encounter Id Patient Instructions Last Modified By Organization Details Last Modified Time 12/07/2014 [id number] She is here for annual exam. Her latest A1C was 10, in 06/18, the [facility] infertility referred her to endocrinology in 06/18, [...] irregular every 4 to 6 weeks, no [id number] no for 6 weeks, check u preg, [...] in detail. Not available 12/07/2014 11:43:09 09/01/2018 [id number] She is here for annual exam. She has not been here since 2014. She was seeing [facility] infertility but they gave up on theat and put in a Mirena 2 years ago. No menses. Her diabetes has been Bad. In 07/2016 she started a process to do bariatric surgery at [facility]. She went through all the counseling [...] latest A1C was 10, in 06/18, the [facility] infertility referred her to endocrinology in 06/18, [...] well. Advised to follow up with her fur tanner about her diabetes. She is going back [...] questions answered. Not available 09/01/2018 10:07:54 09/08/2019 [id number] She is here for annual exam, her weight is stable at 367 pounds. Her was in the ICU for 4 weeks due to sepsis, he is better now though. She had a Mirena placed 3 years ago, no menses. note form 2019: She is here for annual exam. She has not been here since 2014. She was seeing [facility] infertility but they gave up on theat and put in a Mirena 2 years ago. No menses. Her diabetes has been Bad. In 07/2016 she started a process to do bariatric surgery at [facility]. She went through all the counseling [...] get the date of IUD insertion at [facility] for us so that we know when [...] detail. rebecca Not available 09/08/2019 15:23:23 04/04/2021 [id number] learning about healthy weight rebecca Not available 04/04/2021 13:58:54 She is here for annual exam, weight is 391 pounds, BMI is 58.6. She had a Mirena inserted 08/2016. No menses. Her mother earlier this year due to natural causes, in [place], she is still grieving. She and her are , she wanted to go to couples counseling but he would only go in [place] and they could not find a unga [place] speaking counselor. Note from 2019: She [...] process to do bariatric surgery at [facility]. She went through all the counseling ,etc, but things fell through the cracks. She is considering going back again. she had weighted more than 400 pounds last year, she lost some weight this past year with diet and exercise but still weighs 366 pounds today. She appears to be doing well. She and I discussed having her go back to [facility] to get back into their weight [...] breast. [email or web address] Not available 04/04/2021 14:00:20 04/17/2022 [id number] learning about healthy weight [email or web address] Not available [...] this year due to natural causes, in [place], she is still grieving. She and her are , she wanted to go to couples counseling but he would only go in [place] and they could not find a unga [place] speaking counselor. She appears to be [...] DO Not Attach Compendium, Do Not Delete/merge, [id number] 04/04/2021 13:36:07 09/08/19 20 09/08/2019 fecal occul t blood , stool Occult Blood negati ve Not Available In-Office Order Internal Use Only DO Not Attach Compendium DO Not Attach Compendium, Do Not Delete/merge, [id number] 09/08/2019 15:00:26 09/01/19 19 09/01/2018 fecal occul t blood , stool Occult Blood negati ve Not Available In-Office Order Internal Use Only DO Not Attach Compendium DO Not Attach Compendium, Do Not Delete/merge, [id number] 09/01/2018 09:30:38 12/08/19 15 12/07/2014 pregn marshal test, urine HCG negati ve Not Available In-Office Order Internal Use Only DO Not Attach Compendium DO Not Attach Compendium, Do Not Delete/merge, [id number] 12/07/2014 10:52:47 12/08/19 15 12/07/2014 gener [email or web address] se [id number] RESUL TS OF GEN-P ROBE APTIM A COMBO 2 ASSAY Chlam ydia: NEGAT SÁNCHEZ N. gonor rhoea e: NEGAT SÁNCHEZ GENA Camden RIOS M.D., Patho logis t (Case elect martin sy chuy d 12 09 2014) CLINI JOSE INFOR MATIO N: LPS NEG SOURC E: ThinP rep Pap for CT/GC Gross Descr iptio n: ThinP rep Vial Recei joanne. Physi JAYSON Russ N /#([phone]/2 [id number] Cytop athol ogy servi carlos provi ded by [facility] at the above addre ss. Not Available [facility], Cytopathology Service [address] [place], [address], 12/09/2014 15:06:31 12/08/19 15 12/07/2014 pap, LB [email or web address] ThinP rep Pap, Image d: NEGAT SÁNCHEZ FOR SQUAM OUS INTRA EPITH ELIAL LESIO N AND PREM CARD . Tnoie Bejarano ams, CT( CP) (Case elect martin [...] at the above addre ss. Not Available [facility], Cytopathology Service [address] [place] [address], [address], 12/14/2014 12:26:29 09/01/19 19 09/01/2018 pap, LB [email or web address] ThinP rep Pap, Image d: NEGAT SÁNCHEZ [...] . LPS 5 NEG, Z12.4 Not Available [facility], Cytopathology Service [address] [place] [address], [address], 09/02/2018 17:26:28 09/08/19 20 09/08/2019 pap, LB [email or web address] ThinP rep Pap, Image d: NEGAT SÁNCHEZ [...] . LPS NEG [Z12. 4] Not Available [facility], Cytopathology Service [address] [place], [address], 09/10/2019 13:06:44 04/04/20 21 04/04/2021 PAP1C ASE [email or web address] ThinP rep Pap, Image d: NEGAT SÁNCHEZ [...] LPS 0 NEG [Z12. 4] Not Available [facility], Cytopathology Service [address] [place] [address], [address], 04/12/2021 13:55:52 04/17/2004/17/2022 PAP1C ASE [email or web address] ThinP rep Pap, Image d: NEGAT SÁNCHEZ [...] IUD, LPS neg. [z01. 419] Not Available [facility], Cytopathology Service [address] [place] [address], [address], 04/23/2022 08:11:00 04/17/20 22 04/17/2022 fecal occul t blood , stool Occult Blood negati ve Not Available In-Office Order Internal Use Only DO Not Attach Compendium DO Not Attach Compendium, Do Not Delete/merge, [id number] 04/17/2022 10:29:09 Result Notes None recorded. Problems Name Problem SNOMED Code Status Onset Date Resolution Date Notes Provider Name and Address Organization Details Recorded Time Candidal vulvovaginiti s 97051512 Active Not Available [facility] 3 03:01:06 Irritable bowel syndrome 74790038 Active Not Available [facility] 3 03:01:06 Obesity 255013252 Active Not Available [facility] 3 03:01:06 Oligoovulator y dysfunctional uterine bleeding 905890540 Active Adriana Lara MD [address], [place], [address] , [place] - [facility], 5 11:43:08 Uncontrolled type 2 diabetes mellitus 739883456 Active Not Available [facility] 3 03:01:06 Primary female infertility 1953171 Active Not Available [facility] 3 03:01:06 Pruritus of vulva 70129651 Active Not Available [facility] 3 03:01:06 Pain in pelvis 48843676 Active Adriana Lara MD [address], [place], [address] , [place] - [facility], 4 15:07:42 Glycosuria 16587954 Active Adriana Lara MD [address], [place], [address] , [place] - [facility], 4 15:07:42 Problem Notes None recorded. Procedures Surgical History Date Name Laterality Status Provider Name and Address Organization Details Recorded Time 04/05/20 20 Most Recent Mammogram completed Yashira Alonso [place] - [facility], 04/17/2022 10:36:13 08/05/19 00 Cholecystectomy completed Taryn Beasley [place] - [facility], 11/10/2012 13:22:27 Imaging Results None recorded. Procedure Notes None recorded. Medical Equipment None Reported. Allergies Allergen ID Allergen Name Allergen Category Reaction Reaction Severity Criticality Documentation Date Start Date Code Code System Note Provider Name and Address Organization Details Recorded Time 46766 [facility] environme nt,medica tion rash Not available Not available 09/08/2019 60009 RxNorm Yashira Celeste [place] - [facility], 0 14:53:01 7561 Product containin g penicilli n (product) medicatio n rash Not available Not available 11/10/2012 90381 8001 SNOMED Taryn Beasley [place] - Ernesto in [facility], 3 13:11:08 Medications Name Sig Start [...] henidate ER 40 mg capsule,ex tended release [id number] -50 TAKE 1 CAPSULE BY MOUTH EVERY [...] N ot Available [employer] Alexei 14 Day Tichnor FOR TESTING GLUCOSE LEVELS active Not Available [...] 09/01/2018 175.26 cm 95 /min 54.2 kg/m2 125066.6 8 g 122/65 mm[Hg] Taryn Beasley [place] - [facility] in [facility], 09/01/2018 09:12:36 Date Recorded Body weight Body mass index (BMI) Body height Heart rate Systolic And Diastolic Provider Name and Address Organization Details Last Updated DateTime 09/08/2019 655778.1 2 g 55 kg/m2 173.99 cm 110 /min 132/77 mm[Hg] Yashira Orozco in [facility], 09/08/2019 14:53:44 Date Recorded Body weight Heart rate Body mass index (BMI) Body height Systolic And Diastolic Provider Name and Address Organization Details Last Updated DateTime 12/07/2014 663399.1 769 g 103 /min 54.6 kg/m2 175.26 cm 119/71 mm[Hg] Yashira Orozco in [facility], 12/07/2014 10:17:20 Date Recorded Body height Body temperature Body mass index (BMI) Body weight Heart rate Systolic And Diastolic Provider Name and Address Organization Details Last Updated DateTime 1 173.99 cm 97.2 [degF] 58.6 kg/m2 442412. 34 g 104 /min 141/75 mm[Hg] Yashira Orozco in [facility], 1 13:34:29 Date Recorded Body weight Body mass index (BMI) Body height Body temperature Heart rate Systolic And Diastolic Provider Name and Address Organization Details Last Updated DateTime 2 197717. 19 g 54.3 kg/m2 172.72 cm 98.1 [degF] 93 /min 142/79 mm[Hg] Yashira Orozco in [facility], 2 10:33:37 Social History Question Answer Notes LastModified by Organizat ion Details LastModified Time Tobacco Smoking Status Never Smoker Not Available [facility] 06/07/2020 03:19:40 What Is Your Level Of Caffeine Consumption? Occasional [id number] Information not available 06/07/2020 In The 14 [...] Type Of Diet Are You Following? REGULAR [id number] Information not available 06/07/2020 Which Illicit Or Recreational Drugs Have You Used? None [id number] Information not available 06/07/2020 Do You Reside In Or Have You Traveled To An Area Where Ebola Virus Transmission Is Active? No [id number] Information not available 06/07/2020 Education Post Graduate Information not available 11/10/2012 What Is The Highest Grade Or Level Of School You Have Completed Or The Highest Degree You Have Received? [id number] Information not available 04/04/2021 Who Is Your [...] Female Information not available 09/01/2018 Marital Status [employer] n not available 11/10/2012 What Was The Date Of Your Most Recent Tobacco Screening? 04/04/2021 Information not available 04/04/2021 What Is Your Relationship Status? Information not available 04/04/2021 Are You Sexually Active? Yes [id number] Information not available 06/07/2020 How Much Tobacco Do You Smoke? No [id number] Information not available 06/07/2020 General Stress Level [...] is your level of alcohol consumption? None [id number] Information not available 06/07/2020 Do you or have you ever used smokeless tobacco? Never used smokeless tobacco [id number] Information not available 06/07/2020 Are you currently employed? 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 Never used electronic cigarettes [id number] Information not available 06/07/2020 What is your exercise level? None [id number] Information not available 06/07/2020 Mental Status Question Answer Note LastModified by Organization D etails LastModified Time Do you feel stressed (tense, restless, nervous, or anxious, or unable to sleep at night)? [id number] Information not available 04/04/2021 Family History Relationship [...] MD [address], [place], [address], [place] Orozco in [facility], 11/10/2012 13:43:51 Tdap 3 completed KEERTIH Sexton in [facility], 12/11/2012 15:22:23 Influenza, split virus, quadrivalent, preservative 9 completed KE[place]THI Sexton in [facility], 09/01/2018 09:26:24 COVID-19, mRNA, LNP-S, PF, 100 mcg/0.5mL dose or 50 mcg/0.25mL dose 1 completed [place]I Ramos in [facility], 04/04/2021 13:38:30 Influenza, split virus, quadrivalent, preservative 1 completed [place] Ramos in [facility], 04/17/2022 10:34:55 Past Encounters Encounter ID Performer Location Encounter Start Date Encounter Closed Date Diagnosis/Indication Diagnosis SNOMED-CT Code Diagnosis ICD10 Code Diagnosis IMO Codes Diagnosis Note [id number] MD ADRIANA Dickson MD [address] [place] [address] 11/10/2012 12:51:19 11/11/2012 08:37:47 [id number] MD ADRIANA Dickson MD [address] [place] [address] 12/11/2012 15:08:24 12/12/2012 16:10:03 [id number] MD ADRIANA Dickson MD [address] [place] [address] 08/21/2013 13:33:26 08/21/2013 15:51:36 Pain in pelvis 11874002 Acute lowe r urinary tract infection 011681565 Glycosuria 67370409 [id number] MD ADRIANA Dickson MD [address] [place] [address],[place] [address] 11/13/2013 09:28:08 11/13/2013 13:10:39 Specialized medical examination 32198789 [id number] MD ADRIANA Dickson MD [address] [place] [address],[place] [address] 12/07/2014 10:02:59 12/07/2014 13:34:46 Specialized medical examination 04900940 Venereal d isease screening 067857040 Oligoovula tory dysfunctional uterine bleeding 495935897 [id number] MD ADRIANA Dickson MD [address] [place] [address],[place] [address] 09/01/2018 09:04:26 09/01/2018 12:06:59 Specialized medical examination 67148832 Z01.419 Screening for malignant neoplasm of rectum 249816330 Z12.12 Screening mammography 24 336336 Z12.31 [id number] MD ADRIANA Dickson MD [address] [place] [address],[place] [address] 09/08/2019 14:46:50 09/08/2019 15:34:18 Specialized medical examination 35264246 Z01.419 Screening for malignant neoplasm of rectum 186394165 Z12.12 Screening mammography 24 760706 Z12.31 [id number] MD ADRIANA Dickson MD [address] [place] [address],[place] [address] 04/04/2021 13:29:45 04/04/2021 14:48:20 Specialized medical examination 44091687 Z01.419 Screening for malignant neoplasm of rectum 706387004 Z12.12 Screening mammography 24 205415 Z12.31 [id number] MD ADRIANA Dickson MD [address] [place] [address],[place] [address] 04/17/2022 10:28:03 04/17/2022 11:34:15 Specialized medical examination 19217974 Z01.419 Screening for malignant neoplasm of rectum 782873476 Z12.12 Screening mammography 24 856150 Z12.31 Health Concerns Section Related Observation LastModified by Organization Detai ls LastModified Time None Recorded Concern Status LastModified by Organization Details LastModified Time None Recorded Advance Directives Directive None Recorded Payers Insurance Date Sequence Insurance Name Policy Number Policy Fountain Covered Member ID Fountain Member ID Guarantor Name 09/03/2019 1 [facility] [id number] Glorymar López [id number] Glorymar López Colon 09/03/2019 1 [facility] [place] - CHOICE [id number] Glorymar López [id number] Glorymar López Colon 09/03/2019 1 [facility] [place] - CHOICE ([id number]) [id number] Glorymar López [id number] Glorymar López Colon 04/14/2022 1 [facility] [id number] Glorymar López [id number] Glorymar López Colon 09/03/2019 1 [facility] [id number] Glory López [id number] 1 Glorymar López Colon 02/14/2023 2 Nabto [id number] Glorymar López Colon [id number] Glorymar López Colon Notes Date Note Type Note Provider Name and Address Organization Details Recorded Time 12/07/2014 text/html ROS as noted in the HPI Adriana Lara MD [address] [facility],[address], [place], [address], [place] - [facility], 12/07/2014 11:43:24 09/01/2018 text/html She is here for annual exam. She has not been here since 2014. She was seeing [facility] infertility but they gave up on theat and put in a Mirena 2 years ago. No menses. Her diabetes has been Bad. In 07/2016 she started a process to do bariatric surgery at [facility]. She went through all the counseling [...] latest A1C was 10, in 06/18, the [facility] infertility referred her to endocrinology in 06/18, she was given instructions for rescue insulin doses when her sugars are high, she is doing that now, she had an A1C drawn on 11/25/14 but has not received the results yet. Adriana Lara MD [address], [place], [address], [place] - [facility], 09/01/2018 10:08:27 09/08/2019 text/html She is here for annual exam, her weight is stable at 367 pounds. Her was in the ICU for 4 weeks due to sepsis, he is better now though. She had a Mirena placed 3 years ago, no menses. note form 2019: She is here for annual exam. She has not been here since 2014. She was seeing [facility] infertility but they gave up on theat and put in a Mirena 2 years ago. No menses. Her diabetes has been Bad. In 07/2016 she started a process to do bariatric surgery at [facility]. She went through all the counseling ,etc, but things fell through the cracks. She is considering going back again. she had weighted more than 400 pounds last year, she lost some weight this past year with diet and exercise but still weighs 366 pounds today. Adriana Lara MD [address], [place], [address], [place] [facility], 09/08/2019 15:23:49 04/04/2021 text/html She is here for annual exam, weight is 391 pounds, BMI is 58.6. She had a Mirena inserted 08/2016. No menses. Her mother earlier this year due to natural causes, in [place], she is still grieving. She and her are , she wanted to go to couples counseling but he would only go in [place] and they could not find a unga [place] speaking counselor. Note from 2019: She [...] process to do bariatric surgery at [facility]. She went through all the counseling ,etc, but things fell through the cracks. She is considering going back again. she had weighted more than 400 pounds last year, she lost some weight this past year with diet and exercise but still weighs 366 pounds today. Adriana Lara MD [address], [place], [address], [employer] - [facility], 04/04/2021 14:00:40 04/17/2022 text/html Her weight is [...] this year due to natural causes, in [place], she is still grieving.She and her are , she wanted to go to couples counseling but he would only go in [place] and they could not find a unga [place] speaking counselor. Adriana Lara MD [address], [place], [address], [place] - [facility], 04/17/2022 11:00:04 OBGyn Episode No OBEpisode recorded.
--- OUTSIDE RECORDS SUMMARY | 2025-06-08 09:48 | XMS_ITS | Clinical Summary ---
Author Organization [facility] Facility Address [address] [place] [address] Care Team Providers Care Taxicab Driver Name Role Phone Braulio Lopze Primary Care Provider [phone] Allergies Active Allergy Reactions Criticality Noted Date [...] age to complete this topic Care Teams Taxicab Driver Relationship Specialty Start Date End Date Braulio Lopez PCP - General Internal Medicine 02/01/22
--- OUTSIDE RECORDS SUMMARY | 2025-06-08 09:49 | XMS_ITS | Encounter Summary ---
Author Organization [employer] Address [address] [facility] [address] [place] [address] Care Team Providers Care Antisubmarine Weapons Officer Name Role Phone Braulio Carbajal MD Primary Care Prov ider Encounter Details Date Type Department Care Team (Late st Contact Info) Description 08/17/2022 Orders Only [facility] [address] [place] [address] Braulio Carbajal MD [address] [place] [address] Type 2 diabetes mellitus without complication, unspecified whether intermediate frame tender insulin use ([facility]) (Primary Dx) Social History Tobacco Use [...] complication, unspecified whether [facility]p insulin use (CMS/HCC) HEMATOXYLIN AND EOSIN STAIN Routine 01/09/2023 8:38 AM EDT Type 2 diabetes mellitus without complication, unspecified whether m[facility]p insulin use (CMS/HCC) COVID-19 ID NOW (DUPREE) Routine 01/08/2023 2:18 PM EDT Type 2 diabetes mellitus without complication, unspecified whether m[facility]p insulin use (CMS/HCC) TYPE AND SCREEN Routine 01/01/2023 10:22 AM EDT Type 2 diabetes mellitus without complication, unspecified whether mcfp insulin use (CMS/HCC) VITAMIN D,25-OH,TOTAL,IA Routine 01/01/2023 10:20 AM EDT Type 2 diabetes mellitus without complication, unspecified whether mcfp insulin use (CMS/HCC) TSH W/REFLEX TO FT4 Routine 01/01/2023 1 0:20 AM EDT Type 2 diabetes mellitus without complication, unspecified whether mcfp insulin use (CMS/HCC) CBC WITH AUTO DIFFERENTIAL Routine 01/01/2023 10:20 AM EDT Type 2 diabetes mellitus without complication, unspecified whether m[facility]p insulin use (CMS/HCC) ZINC Routine 01/01/2023 10:20 AM EDT Type 2 diabetes mellitus without complication, unspecified whether mcfp insulin use (CMS/HCC) VITAMIN A Routine 01/01/2023 10:20 AM EDT Type 2 diabetes mellitus without complication, unspecified whether m[facility]p insulin use (CMS/HCC) APTT Routine 01/01/2023 10:20 AM EDT Type 2 diabetes mellitus without complication, unspecified whether m[facility]p insulin use (CMS/HCC) PROTHROMBIN TIME-INR Routine 01/01/2023 10:20 AM EDT Type 2 diabetes mellitus without complication, unspecified whether mcfp insulin use (CMS/HCC) C-REACTIVE PROTEIN Routine 01/01/2023 10 :20 AM EDT Type 2 diabetes mellitus without complication, unspecified whether intermediate frame tender insulin use (CMS/HCC) VITAMIN B1 Routine 01/01/2023 10:20 AM EDT Type 2 diabetes mellitus without complication, unspecified whether mcfp insulin use (CMS/HCC) PTH, INTACT WITHOUT CALCIUM Routine 01/01/2023 10:20 AM EDT Type 2 diabetes mellitus without complication, unspecified whether m[facility]p insulin use (CMS/HCC) HEMOGLOBIN A1C Routine 01/01/2023 10:20 AM EDT Type 2 diabetes mellitus without complication, unspecified whether intermediate frame tender insulin use (CMS/HCC) FERRITIN Routine 01/01/2023 10:20 AM EDT Type 2 diabetes mellitus without complication, unspecified whether intermediate frame tender insulin use (CMS/HCC) VITAMIN B12 Routine 01/01/2023 10:20 AM EDT Type 2 diabetes mellitus without complication, unspecified whether mcfp insulin use (CMS/HCC) LIPID PANEL, STANDARD Routine 01/01/2023 10:20 AM EDT Type 2 diabetes mellitus without complication, unspecified whether intermediate frame tender insulin use (CMS/HCC) COMPREHENSIVE METABOLIC PANEL Routine 01/01/2023 10:20 AM EDT Type 2 diabetes mellitus without complication, unspecified whether intermediate frame tender insulin use (CMS/HCC) GLUCOSE, WHOLE BLOOD Routine 11/13/2022 1:31 PM EDT Type 2 diabetes mellitus without complication, unspecified whether intermediate frame tender insulin use (CMS/HCC) HEMOGLOBIN A1C Routine 11/13/2022 1:14 PM EDT Type 2 diabetes mellitus without complication, unspecified whether intermediate frame tender insulin use (CMS/HCC) documented in this encounter Results * CA 19-9 (01/09/2023 10:38 AM EDT) CA 19-9 14 <34 U/mL [facility] Comment:The CA19-9 result ma y be increased on average 14% - 20%,relative to results previously obtained with this methoddue to a recent calibrator adjustment made in Octobery the reagent superintendent oil field drilling. In the low range for thisassay (< [...] or absence of disease.THIS TEST WAS PERFORMED AT:[employer] [place] [id number] LONDONO MD 01/09/2023 10:3 8 AM EDT 01/09/2023 10:42 AM EDT [facility] External Provider LAB BLO OD ORDERABLES Final Result [facility] [address] [place] [phone] * Hematoxylin and Eosin Stain (01/09/2023 8:38 AM EDT) 01/09/2023 8:38 AM EDT 01/09/2023 8:53 AM EDT Narrative [facility] - 01/14/2023 1:28 PM EDT ----- ------- Name: Julia López Age/Sex: 47/F : 1975 [facility]#: [id number] Unit#: [id number] Attend Dr: Darci Sanders MD Re01/09/23 Status: [facility] Location: [facility] Disch: ----- ------- SPEC : [id number] RECD: 01/09/23 STATUS: HERMINIO CROCKER NUM: [id number] PUSHPA: 01/09/[address] [facility] [address]: Darci Sanders MD ENTERED: 01/09/23 SP [...] Julia López Age/Sex: 47/F : 1975 Unit#: [id number] Attend Dr: Darci Sanders MD Re01/09/23 Status: [facility] Location: [facility] Disch: ----- ------- SPEC : [id number] RECD: 01/09/23 STATUS: HERMINIO OBI NUM: [id number] PUSHPA: 01/09/[address] [facility] [address]: Darci Sanders MD ENTERED: 01/09/23 SP [...] B2. Copies To: Braulio Carbajal MD [address] [place] [phone] Darci Sanders MD [address] [place] [address], 3rd [place] [address] ----- ------- Signed (signature on file) Shaun Lebron MD 01/14/23 1328 ----- ------- END OF REPORT [facility] External Provider LAB BLO OD ORDERABLES Final Result [facility] [address] [place] [address] [phone] * COVID-19 ID NOW (Meizu) (01/08/2023 2:18 PM EDT) IDNOW SERIAL# [id number] [facility] COVID-19 TEST Negative Negative [facility] COVID-19 NOTE See Note [facility] Comment: Results are for the identification of SARS-CoV2 RNA. TheSARS-CoV2 RNA is generally detectable in respiratory samplesduring the acute phase of infection. Positive results areindicative of the presence of SARS-CoV-2 RNA; clinicalcorrelation with patient history and other diagnosticinformation is necessary to determine patient infectionstatus. Positive results do not rule out bacterial infectionor co- infection with other viruses.Testing facilities within the [facility] and [facility] are required to report [...] use by authorized laboratories.Testing performed on the [employer] NOW utilizing NAAT. 01/08/2023 2:18 PM EDT 01/08/2023 2:32 PM EDT [facility] Exter nal Provider LAB MOLECULAR DIAGNOSTICS ORDERABLES Final Result Performing Organization Address City/[facility] de Phone Number [facility] [address] [place] [address] [phone] * Type and screen (01/01/2023 10:22 AM EDT) Pathologist [facility] Blood Type OP [facility] Antibody Screen NEGATIVE [facility] 01/01/2023 10:2 2 AM EDT 01/01/2023 11:04 AM EDT Narrative [facility] - 01/01/2023 11:55 AM EDT Spec expiration changed by JAMESON on 01/01/23Reason: For SURGERYNURSING:Call Blood Bank (ext. [phone]) to band patient on admission.Type and Screen in effect until 2300 on 01/09/23Witnessed by EDELMIRA us [facility] External Provider LAB BLO OD BANK TEST ORDERABLES Final Result Performing Organization Address [facility] de Phone Number [facility] [address] [place] [address] [phone] * (ABNORMAL) Vitamin A (01/01/2023 10:20 AM EDT) Pathologist [facility] Vitamin A (Retinol) 32(A) 38 - 98 mcg/dL [facility] Comment:Vitamin supplementat ion within 24 hours prior toblood draw may affect the accuracy of the results.This test was developed and its analytical performancecharacteristics have been determined by [employer] [place], [place]. It hasnot been cleared or approved by the U.S. Food and DrugAdministration. This assay has been validated pursuantto the CLIA regulations and is used for clinicalpurposes.THIS TEST WAS PERFORMED AT:[employer] [place] [id number] BARRY MD,PHD 01/01/2023 10:2 0 AM EDT 01/01/2023 10:20 AM EDT [facility] External Provider LAB BLO OD ORDERABLES Final Result Performing Organization Address [facility] Co de Phone Number [facility] [address] [place] [phone] * (ABNORMAL) Vitamin B1 (01/01/2023 10:20 AM EDT) Vitamin B1 <6(A) 8 - 30 nmol/L [facility] Comment:Vitamin supplementat ion within 24 hours prior toblood draw may affect the accuracy of the results.This test was developed and its analytical performancecharacteristics have been determined by [employer] [place]. It hasnot been cleared or approved by the .S. Food and DrugAdministration. This assay has been validated pursuantto the CLIA regulations and is used for clinicalpurposes.THIS TEST WAS PERFORMED AT:[employer] [address] [id number] BARRY MD,PHD 01/01/2023 10:2 0 AM EDT 01/01/2023 10:20 AM EDT [facility] External Provider LAB BLO OD ORDERABLES Final Result Performing Organization Address [facility] de Phone Number [facility] [address] [place] [phone] * Zinc (01/01/2023 10:20 AM EDT) Zinc 84 60 - 130 mcg/dL [facility] Comment:This test was develo ped and its analytical performancecharacteristics have been determined by [employer] [place]. It hasnot been cleared or approved by the U.S. Food and DrugAdministration. This assay has been validated pursuantto the CLIA regulations and is used for clinicalpurposes.THIS TEST WAS PERFORMED AT:[employer] [place] [address]DJGCLQBNICOLA BARRY MD,PHD 01/01/2023 10:2 0 AM EDT 01/01/2023 10:20 AM EDT [facility] External Provider LAB BLO OD ORDERABLES Final Result Performing Organization Address [facility] Co de Phone Number [facility] [address] [place] [phone] * PTH, Intact Without Calcium (01/01/2023 10:20 AM EDT) PTHI 32 16 - 77 pg/mL [facility] Comment:Interpretive Guide I ntact PTH Calcium -------Normal Parathyroid Normal NormalHypoparathyroidism Low or Low Normal LowHyperparathyroidism Primary Normal or High High Secondary High Normal or Low Tertiary High HighNon-Parathyroid Hypercalcemia Low or Low Normal High Calcium (PTHI) 9.9 8.6 - 10.2 mg/dL [facility] Comment:THIS TEST WAS PERFOR MED AT:[employer] [place] [id number] LONDONO MD 01/01/2023 10:2 0 AM EDT 01/01/2023 10:20 AM EDT [facility] External Provider LAB BLO OD ORDERABLES Final Result Performing Organization Address [facility] Co de Phone Number [facility] [address] [place] [phone] * Lipid Panel, Standard (01/01/2023 10:20 AM EDT) Triglycerides 73 mg/dL [facility] Comment:Desirable Triglyceri de: less than 150 mg/dLBorderline High Triglyceride 150-199 mg/dLHigh Triglyceride: 200-499 mg/dLVery High Triglyceride: greater than or equal to 5OO mg/dL Cholesterol 101 mg/dL [facility] Comment:Desirable Cholestero l: less than 200 mg/dLBorderline High Cholesterol: 200-239 mg/dLHigh Cholesterol: greater than 239 mg/dL LDL Cholesterol Calculated 53 mg/dl [facility] Comment:Desirable LDL: less than 100 mg/dLNear Optimal/Above Optimal LDL: 110- 129 mg/dLBorderline High LDL: 130-159 mg/dLHigh LDL: 160-189 mg/dLVery High LDL: greater than or equal to 190 mg/dL HDL Cholesterol 34 mg/dL [facility] Comment:Desirable HDL: great er than 40 mg/dL Note: This HDL assay may give artificially low results in patients with liver disease. 01/01/2023 10:2 0 AM EDT 01/01/2023 10:20 AM EDT [facility] External Provider LAB BLO OD ORDERABLES Final Result Performing Organization Address City/[facility]/ZIP Co de Phone Number [facility] [address] [place] [phone] * (ABNORMAL) C-reactive Protein (01/01/2023 10:20 AM EDT) C Reactive Protein 2.54(H) < or = 0.50 mg/dL [facility] 01/01/2023 10:2 0 AM EDT 01/01/2023 10:20 AM EDT [facility] External Provider LAB BLO OD ORDERABLES Final Result Performing Organization Address City/[facility]/ZIP Co de Phone Number [facility] [address] [place] [phone] [phone] * (ABNORMAL) Comprehensive Metabolic Panel (01/01/2023 10:20 AM EDT) Sodium 136 135 - 145 mmol/L [facility] Potassium 4.7 3.3 - 5.1 mmol/L [facility] Chloride 99 96 - 108 mmol/L [facility] Carbon Dioxide 28 22 - 29 mmol/L [facility] Anion Gap 14 12 - 20 [facility] Urea Nitrogen (BUN) 13 9 - 16 mg/dL [facility] Creatinine, Serum 0.80 0.5 - 1.4 mg/dL [facility] Creatinine Clr Calc Pharmacy 134.3 [facility] Comment:Provided height and weight: 175.26 cm,142.882 kg.eGFR (calculated from the MDRD study equation) and eCrCl(calculated from the Cockcroft-Gault equation) are based ondifferent parameters and may not yield comparable results.If eCrCl result is absurd, please check patient'sheight/weight. Estimated Glomerular Filt Rate >60 [facility] Comment:NOTE: For -Am erican individuals, multiply the result by 1.210.Chronic Kidney Disease: Estimated GFR < 60 mL/min/1.40q7Hlwjpw Kidney Disease: Estimated GFR < 15 mL/min/1.73m2 Glucose 141(H) 60 - 115 mg/dL [facility] Calcium 10.0 8.4 - 10.2 mg/dL [facility] Bilirubin, Total 0.9 0.0 - 1.0 mg/dL [facility] Aspartate Amino Transferase 18 5 - 31 U/L [facility] Alanine Aminotransferase 14 0 - 31 U/L [facility] Total Protein 7.9 6.5 - 8.0 g/dL [facility] Albumin Level 4.0 3.5 - 5.0 g/dL [facility] Alkaline Phosphatase 85 39 - 117 U/L [facility] 01/01/2023 10:2 0 AM EDT 01/01/2023 10:20 AM EDT [facility] External Provider LAB BLO OD ORDERABLES Final Result [facility] [address] [place] [address] [phone] * TSH W/Reflex to FT4 (01/01/2023 10:20 AM EDT) TSH reflex Free T4 1.39 0.32 - 4.0 uIU/mL [facility] 01/01/2023 10:2 0 AM EDT 01/01/2023 10:20 AM EDT [facility] External Provider LAB BLO OD ORDERABLES Final Result Performing Organization Address City/[facility]/ZIP Co de Phone Number [facility] [address] [place] [phone] * Vitamin D, 25-Hydroxy, Total, Immunoassay (01/01/2023 10:20 AM EDT) Vitamin D 25-OH Total 23.8 >30 ng/mL [facility] Comment:Health Based Referen ce Values*< 20 ng/mL Zzympnhdp07-16 ng/mL Insufficient> 30 ng/mL Sufficient*Nay HASTINGS. N [...] 0 AM EDT 01/01/2023 10:20 AM EDT [facility] External Provider LAB BLO OD ORDERABLES Final Result Performing Organization Address [facility] Co de Phone Number [facility] [address] [place] [phone] * Vitamin B12 (01/01/2023 10:20 AM EDT) Vitamin B12 505 200 - 900 pg/mL [facility] Comment:NORMAL 200-900 PG/ML INDETERMINATE 160-199 PG/ML DEFICIENT < 160 PG/ML 01/01/2023 10:2 0 AM EDT 01/01/2023 10:20 AM EDT [facility] External Provider LAB BLO OD ORDERABLES Final Result Performing Organization Address [facility] Co de Phone Number [facility] [address] [place] [phone] * Ferritin (01/01/2023 10:20 AM EDT) Ferritin 192 10 - 250 ng/mL [facility] 01/01/2023 10:2 0 AM EDT 01/01/2023 10:20 AM EDT [facility] External Provider LAB BLO OD ORDERABLES Final Result Performing Organization Address [facility] de Phone Number [facility] [address] [place] [phone] * Hemoglobin A1c (01/01/2023 10:20 AM EDT) Hemoglobin A1c 6.8 % [facility] Comment:Hemoglobin A1C Refer ence Range Adults: 4.8 - 6.0 % Non diabetic: < 6.0 % Goal: < 7.0 %Additional Action Suggested: > 8.0 %Note: Hemoglobin A1c results are invalid for patients with abnormal amounts of HbF. Blood transfusions may impact the HbA1c concentration in the patient sample. Estimated Average Glucose 148 mg/dL [facility] Comment:eAG = Estimated ave rage glucose which is %A1C expressed asaverage glucose, using the formula of the L0D-ZqsdttnFzxzsun Glucose study (ADAG), Diabetes Care, Vol.31,#8,2007 01/01/2023 10:2 0 AM EDT 01/01/2023 10:20 AM EDT [facility] External Provider LAB BLO OD ORDERABLES Final Result Performing Organization Address [facility] de Phone Number [facility] [address] [place] [phone] * APTT (01/01/2023 10:20 AM EDT) Partial Thromboplastin Time 35.0 26.0 - 36.4 SEC [facility] 01/01/2023 10:2 0 AM EDT 01/01/2023 10:20 AM EDT [facility] External Provider LAB BLO OD ORDERABLES Final Result Performing Organization Address [facility] Phone Number [facility] [address] [place] [phone] * Prothrombin Time-INR (01/01/2023 10:20 AM EDT) [facility] Prothrombin Time 12.9 10.0 - 13.1 SEC [facility] INTERNATIONAL NORM RATIO 1.1 0.9 - 1.1 [facility] Comment:INTERNATIONAL NORMAL IZED RATIO (INR) REFERENCE [...] 0 AM EDT 01/01/2023 10:20 AM EDT [facility] External Provider LAB BLO OD ORDERABLES Final Result Performing Organization Address [facility] de Phone Number [facility] [address] [place] [phone] * (ABNORMAL) CBC auto differential (01/01/2023 10:20 AM EDT) White Blood Count 11.3(H) 4.8 - 10.8 X10*3/uL [facility] Red Blood Count 5.09 4.20 - 5.50 X10*6/uL [facility] Hemoglobin 13.8 12.0 - 16.0 g/dl [facility] Hematocrit 44.1 37.0 - 47.0 % [facility] Mean Corpuscular Volume 86.6 80.0 - 98.0 fL [facility] Mean Corpuscular Hemoglobin 27.1 27.0 - 33.0 pg [facility] Mean Corpuscular HGB Conc 31.3 31.0 - 35.0 g/dl [facility] Red Cell Distribution Width 14.3 11.0 - 16.0 % [facility] Platelet Count 376 160 - 400 X10*3/uL [facility] Mean Platelet Volume 9.2(L) 9.4 - 12.3 fL [facility] Neutrophils Percent Auto 66.0 45 - 73 % [facility] Imm Gran Pct Auto 0.8(H) 0.0 - 0.4 % [facility] Lymphocytes Percent Auto 25.1 20 - 40 % [facility] Monocytes Percent Auto 5.5 2 - 11 % [facility] Eosinophils Percent Auto 2.0 0 - 4 % [facility] Basophils Percent Auto 0.6 0 - 2 % [facility] NRBC Pct Auto 0.0 0.0 - 0.2 /100WBC [facility] Neutrophils Absolute Auto 7.4 2.0 - 8.3 x10*3/uL [facility] Imm Gran Abs Auto 0.09(H) 0.00 - 0.03 X10*3/uL [facility] Lymphocytes Absolute Auto 2.8 1.2 - 4.9 X10*3/uL [facility] Monocytes Absolute Auto 0.6 0.1 - 1.2 X10*3/uL [facility] Eosinophils Absolute Auto 0.2 0.0 - 0.4 X10*3/uL [facility] Basophils Absolute Auto 0.1 0.0 - 0.2 X10*3/uL [facility] NRBC Abs Auto 0.000 0.0 - 0.012 X10*3/uL [facility] 01/01/2023 10:2 0 AM EDT 01/01/2023 10:20 AM EDT [facility] External Provider LAB BLO OD ORDERABLES Final Result Performing Organization Address [facility] de Phone Number [facility] [address] [place] [phone] * (ABNORMAL) Glucose, Whole Blood (11/13/2022 1:31 PM EDT) Glucose, Whole Blood 196(H) 60 - 115 mg/dL [facility] Comment:METER #: [id number] 5Testing performed in the Endocrinology Department [address] , [address], [facility]. 11/13/2022 1:31 PM EDT 11/13/2022 1:34 PM EDT [facility] External Provider LAB BLO OD ORDERABLES Final Result Performing Organization Address [facility] de Phone Number [facility] [address] [place] [phone] * Hemoglobin A1c (11/13/2022 1:14 PM EDT) Hemoglobin A1c 7.4 % [facility] Comment:Hemoglobin A1C Refer ence Range Adults: 4.8 - 6.0 % Non diabetic: < 6.0 % Goal: < 7.0 %Additional Action Suggested: > 8.0 %Note: Hemoglobin A1c results are invalid for patients with abnormal amounts of HbF. Blood transfusions may impact the HbA1c concentration in the patient sample. Estimated Average Glucose 166 mg/dL [facility] Comment:eAG = Estimated ave rage glucose which is %A1C expressed asaverage glucose, using the formula of the M0U-TtpsbclVgdqhqn Glucose study (ADAG), Diabetes Care, Vol.31,#8,Mar. 2007 11/13/2022 1:14 PM EDT 11/13/2022 1:14 PM EDT us [facility] External Provider LAB BLO OD ORDERABLES Final Result [facility] [address] [place] [address] [phone] documented in this encounter Visit Diagnoses Diagnosis Type 2 diabetes mellitus without complication, unspecified whether mcfp insulin use- Primary documented in this encounter Care Teams Antisubmarine Weapons Officer Relationship Specialty Start Date End Date Braulio Carbajal MD [address] [place] [address] PCP - General Internal Medicine 12/14/19 04/28/24 documented as of this encounter
--- OUTSIDE RECORDS SUMMARY | 2025-06-08 09:49 | XMS_ITS | Encounter Summary ---
Author Organization [facility] Address [address] [facility] 7 [place] [address] Care Team Providers Care Echo Vasc Tech Name Role Phone Braulio Carbajal MD Primary Care Prov ider Reason for Visit * Reason Onset Date Comments Med Refill 02/28/2023 Encounter Details Date Type Department Care Team (Late st Contact Info) Description 02/28/2023 Refill [facility] [address] [place] [address] Braulio Carbajal MD [address] [place] [phone] Mixed hyperlipidemia; Primary hypertension; Type 2 diabetes mellitus with diabetic polyneuropathy, with long-term current use of insulin ([facility]/HCC) Social History Tobacco Use Types Packs/Day Years [...] (HCC) documented in this encounter Care Teams Echo Vasc Tech Relationship Specialty Start Date End Date Braulio Carbajal MD [address] [place] [address] PCP - General Internal Medicine 12/14/19 04/28/24 documented as of this encounter
--- OUTSIDE RECORDS SUMMARY | 2025-06-08 09:49 | XMS_ITS | Encounter Summary ---
Author Organization [facility] Address [address] [place] [address] Care Team Providers Care Bar Helper Name Role Phone Braulio Carbajal MD Primary Care Prov ider Reason for Visit * Reason Onset Date Comments Med Refill 02/28/2023 Encounter Details Date Type Department Care Team (Late st Contact Info) Description 02/28/2023 Refill [facility] [address] [place] [address] Braulio Carbajal MD [address] [place] [address] Social History Tobacco Use Types Packs/Day Years [...] on filedocumented in this encounter Care Teams Bar Helper Relationship Specialty Start Date End Date Braulio Carbajal MD [address] [place] [address] PCP - General Internal Medicine 12/14/19 04/28/24 documented as of this encounter
--- OUTSIDE RECORDS SUMMARY | 2025-06-08 09:49 | XMS_ITS | Encounter Summary ---
Author Organization [facility] Address [address] [place] [address] Care Team Providers Care Plush Weaver Name Role Phone Braulio Carbajal MD Primary Care Prov ider Reason for Visit * Reason Comments Med Refill Encounter Details Date Type Department Care Team (Late st Contact Info) Description 10/29/2022 Refill [facility] [address] [place], [place] [phone] Braulio Carbajal MD [address] [place] [address] Social History Tobacco Use Types Packs/Day Years [...] on filedocumented in this encounter Care Teams Plush Weaver Relationship Specialty Start Date End Date Braulio Carbajal MD [address] [place] [address] PCP - General Internal Medicine 12/14/19 04/28/24 documented as of this encounter
--- OUTSIDE RECORDS SUMMARY | 2025-06-08 09:49 | XMS_ITS | Continuity of Care Document ---
Author Organization [facility] Address [address] [facility] [address] [place] [address] Phone [phone] Social History Type Date Description Comments Sex Female Sex Unknown Medical Devices Description No Information Available Encounters Description No Information Available Assessments Description No Information Available Plan of Treatment No Information Available Functional Status Description No Information Available Mental Status Description No Information Available Referrals Description No Information Available
== END 2025-06-08 10:24 | disposition home or self-care (01) ==
LOC: HO.HOP 09:06
PROVIDERS: PCP Family Medicine; Visit Provider Counselor Mental Health
DX: F90.2 Attention-deficit hyperactivity disorder, combined type (principal); F41.0 Panic disorder [episodic paroxysmal anxiety]; F32.A Depression, unspecified
CPT/HCPCS: 90837

== ENCOUNTER 2025-06-22 09:09 | Outpatient (AMB) | payer OTHER, SELFPAY ==
--- NOTE | 2025-06-22 09:05 | A.OFFWM_ITS ---
Intake Intake Visit Reasons: VIDEO OP Therapy Allergies Penicillins Allergy (Intermediate, Verified 03/16/25 13:12) Shortness of Breath pt states no food allergies Allergy (Unknown, Uncoded 03/16/25 13:12) Unknown [facility] Medical History Type 2 diabetes mellitus with retinopathy Asthma Insomnia Neuropathy Breast calcification, right Adenocarcinoma determined by biopsy of liver Diabetic retinopathy Anxiety and depression GERD (gastroesophageal reflux disease) SOLE on CPAP ADHD Hyperlipidemia HTN (hypertension) with goal to be determined Diabetes mellitus Morbid obesity Surgical History Hx of LASIK History of cholecystectomy Family History Mother Diabetes Heart problem Father Hypertension Maternal Grandmother Primary cancer of bone marrow Maternal Grandfather Prostate cancer Social History Are you a primary lawn care technician to a significant other at home: No Do you presently have visiting nurse or other home services: No Alcohol intake: never Patient Tobacco Use Status: Never used Tobacco Female Reproductive History Menstrual Age of Menarche: 13 Behavioral Health Assessment Weight Management Therapy Therapy Notes Details Subjective: The patient reports ongoing anxiety, with some days marked by difficulty sleeping despite taking melatonin. She notes that her father recently visited, and the visit went better than she had anticipated. Objective: The patient attended a follow-up behavioral health session via telehealth. CBT- based interventions were utilized to address anxiety and sleep difficulties, including cognitive restructuring to challenge anxious thoughts and promote realistic expectations. Psychoeducation was provided on sleep hygiene strategies, such as establishing a consistent bedtime routine, limiting screen time before bed, and using relaxation techniques. The patient was encouraged to monitor her anxiety triggers and practice mindfulness exercises to manage symptoms. Supportive counseling was provided to reinforce positive experiences and adaptive coping during her father?s visit. Assessment/Response: * Mental status: Alert and oriented ?4. Appearance appropriate. Mood mildly anxious, affect congruent. Thought process logical and coherent. No evidence of psychosis. Insight and judgment intact. * Risk reported/identified: No suicidal or homicidal ideation, self-harm, or other acute safety concerns identified. Assessment & Plan Assessment & Plan (1) ADHD: Code(s): F90.9 - Attention-deficit hyperactivity disorder, unspecified type Qualifiers: Attention deficit-hyperactivity disorder type: combined inattentive- hyperactive Qualified Code(s): F90.2 - Attention-deficit hyperactivity disorder, combined type (2) Panic disorder: Code(s): F41.0 - Panic disorder [episodic paroxysmal anxiety] (3) Depression, unspecified: Code(s): F32.A - Depression, unspecified Plan Continue bi-weekly behavioral health sessions. * Next appointment scheduled for 07/06/2025 at 9:00 AM via video. Telehealth Telehealth Telehealth Platform: [employer] Location of provider rendering services: other (Home office. [place], [place]) Location of patient: address on file Patient Identification confirmed using: Name, : Yes Telehealth method: video Patient verbally consented to treatment: Yes Patient verbally consented to billing insurance company: Yes Patient informed of any privacy concerns related to visit: Yes Minutes spent on Phone/Video with Pt.: 60 [place] [address] Tele Psytx >53 mins Patient Type Established Diagnoses Attention deficit hyperactivity disorder (ADHD), combined type F90.2 Attention deficit-hyperactivity disorder type: combined inattentive- hyperactive Panic disorder F41.0 Depression, unspecified F32.A Time Spent (min) 60
--- OUTSIDE RECORDS SUMMARY | 2025-06-22 19:00 | XMS_ITS | Data Portability ---
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 PLAN: [...] Gonzalez MS, PA-C in indirect conjunction with [facility] provider Clark Andino MD. He agrees [...] stretching, and deep friction massage. 2023 024 [email or web address] Not available 14:29:59 Procedures injection, hip, fluoro guidance (PROC) - Hip Cortisone Injection, Fluoroscopy guided, please contact patient directly to schedule Diagnosis: Left hip pain. Ultrasound or x-ray guided intra-artic ular injection of steroid and short and/or long-acting anesthetic to femoral-thony tabular joint. Please document pre and post procedure pain levels (0-10 scale). 2023 024 [email or web address] Not available 5 15:48:51 Surgeries None recorded. Imaging XR, hip, unilateral, 2 or 3 view 2023 024 [email or web address] [facility], [address], [place], [address], 4 11:51:40 XR, elbow, 3 or more view 2023 024 [facility], [address], [place], [address], 4 16:54:16 Medication Orders meloxicam 15 mg tablet 2023 024 [facility], [address] [place] [address], [place], [address], 4 14:11:51 Patient TargetsNo targets recorded. Patient Instructions Encounter Date Encounter Id Patient Instructions Last Modified By Organization Details Last Modified Time 06/18/2024 [id number] tennis elbow: exercises Not available 06/18/2024 14:11:37 [...] RIGHT elbow. Not available 06/18/2024 13:55:08 07/07/2024 [id number] 4 view X-ray lory dy obtained during [...] Organization Details Recorded Time Lateral epicondyli tis 729571145 Active 2023 Oscar Avina MD [address], [place], [address] , [place] [facility], P 4 14:10:53 Lateral epicondyli tis 052941204 Active [address], [place], [address] , [place] [facility], P 4 14:11:09 Osteoarthr itis of left hip joint [id number] 08 Active [address], [place], [address] , [place] [facility], P 4 11:06:02 Problem Notes None recorded. [...] ICD10 Code Diagnosis IMO Codes Diagnosis Note [id number] Oscar Avina MD [facility] [address] [place] [address] [address] [place] [id number] 06/18/2024 13:20:00 06/18/2024 14:16:30 Pain of elbow region [id number] M25.521 [id number] Lateral epicondylitis 20 6488091 M77.10 [id number] GERARD GONZALEZ PA-C [address] [place] [id number] 07/07/2024 10:17:23 07/07/2024 11:04:15 Pain of hip region 85052715 M25.521 [id number] Osteoarthr itis of left hip joint [id number] M16.12 [id number] Health Concerns Section Related Observation LastModified by Organization Detai ls LastModified Time None Recorded Concern Status LastModified by Organization Details LastModified Time None Recorded Advance Directives Directive None Recorded Payers Insurance Date Sequence Insurance Name Policy Number Policy Fountain Covered Member ID Fountain Member ID Guarantor Name 11/16/2024 1 Language [employer] [id number] Julia López Colon [id number] Julia King on Notes Date Note Type [...] 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 She is [id number] . Oscar Avina MD [address], [place], [address], [place] [facility], P 06/18/2024 14:13:14 07/07/2024 text/html 49-year-old female [...] GERARD GONZALEZ PA-C [address], [place], [address], [place] [facility], P 07/07/2024 11:07:40 OBGyn Episode No OBEpisode recorded.
--- OUTSIDE RECORDS SUMMARY | 2025-06-22 19:01 | XMS_ITS | Data Portability ---
Author Organization [place] - [facility],, ADRIANA LARA MD Address [address] [address] Assessment No assessment recorded. Plan of Treatment Reminders Order Date Submit Date Provider Last Modified By Organization Details Last Modified Time Details Appointments None recorded. Lab pap test, thinprep, cervical 2021 022 [email or web address] [facility], Cytopathology Service, [address] [place] [address], [address], 2 07:36:24 fecal occult blood, stool 2021 022 [email or web address] In-Office Order, Internal Use Only DO Not Attach Compendium DO Not Attach Compendium, Do Not Delete/merge, [id number] 2 11:34:07 pap test, thinprep, cervical 2020 021 [email or web address] [facility], Cytopathology Service, [address] [place] [address], [address], 1 07:14:16 fecal occult blood, stool 2020 021 [email or web address] 1 In-Office Order, Internal Use Only DO Not Attach Compendium DO Not Attach Compendium, Do Not Delete/merge, [id number] 13:58:54 pap test, thinprep, cervical 2019 020 [email or web address] [facility], Cytopathology Service, [address] [place] [address], [address], 0 08:59:10 fecal occult blood, stool 2019 020 [email or web address] In-Office Order, Internal Use Only DO Not Attach Compendium DO Not Attach Compendium, Do Not Delete/merge, [id number] 0 08:59:10 pap test, thinprep, cervical [address] [facility], Cytopathology Service, [address] [place] [address], [address], 9 04:32:23 fecal occult blood, stool 2018 019 [email or web address] In-Office Order, Internal Use Only DO Not Attach Compendium DO Not Attach Compendium, Do Not Delete/merge, [id number] 9 07:31:20 pap test, thinprep, cervical [address] [facility], Cytopathology Service, [address] [place] [address], [address], 5 12:26:29 chlamydia sp, culture, unspecifi ed specimen 2014 015 [facility], Cytopathology Service, [address] [place] [address], [address], 5 08:24:20 NG DNA, PCR, genital 2014 015 [facility], Cytopathology Service, [address] [place] [address], [address], 5 08:24:20 test, urine 2014 015 [email or web address] 1 In-Office Order, Internal Use Only DO Not Attach Compendium DO Not Attach Compendium, Do Not Delete/merge, [id number] 5 11:43:08 Referral None recorded. Procedures None recorded. Surgeries None recorded. Imaging MAMMO, screening , digital, bilateral [address] [facility], [address], [address], [place], [address], 4 07:16:34 MAMMO, screening , digital, bilateral [address] [facility] Orders, [address], [address], [place], [address], 2 07:36:18 MAMMO, screening , digital, bilateral 2019 020 [facility] (Mammography), [address], [place], [address], 1 07:41:40 MAMMO, screening , digital, bilateral [address] [facility] Orders, [address], [address], [place], [address], 0 07:25:26 Medication Orders None recorded. Patient TargetsNo targets recorded. Patient Instructions Encounter Date Encounter Id Patient Instructions Last Modified By Organization Details Last Modified Time 12/07/2014 [id number] She is here for annual exam. Her latest A1C was 10, in 06/18, the [facility] referred her to endocrinology in 06/18, [...] irregular every 4 to 6 weeks, no [id number] no for 6 weeks, check u preg, [...] in detail. Not available 12/07/2014 11:43:09 09/01/2018 [id number] She is here for annual exam. She has not been here since 2014. She was seeing [facility] but they gave up on theat and put in a Mirena 2 years ago. No menses. Her diabetes has been Bad. In 07/2016 she started a process to do bariatric surgery at [facility]. She went through all the counseling ,etc, but things fell through the cracks. She is considering going back again. she had weighted more than 400 pounds last year, she lost some weight this past year with diet and exercise but still weighs 366 pounds today. _ note from 2014: She is here for annual exam. Her latest A1C was 10, in 06/18, the [facility] referred her to endocrinology in 06/18, [...] well. Advised to follow up with her leasing agent about her diabetes. She is going back [...] questions answered. Not available 09/01/2018 10:07:54 09/08/2019 [id number] She is here for annual exam, her weight is stable at 367 pounds. Her was in the ICU for 4 weeks due to sepsis, he is better now though. She had a Mirena placed 3 years ago, no menses. note form 2019: She is here for annual exam. She has not been here since 2014. She was seeing [facility] but they gave up on theat and put in a Mirena 2 years ago. No menses. Her diabetes has been Bad. In 07/2016 she started a process to do bariatric surgery at [facility]. She went through all the counseling ,etc, [...] get the date of IUD insertion at [facility] for us so that we know when [...] detail. rebecca Not available 09/08/2019 15:23:23 04/04/2021 [id number] learning about healthy weight rebecca Not available 04/04/2021 13:58:54 She is here for annual exam, weight is 391 pounds, BMI is 58.6. She had a Mirena inserted 08/2016. No menses. Her mother earlier this year due to natural causes, in [place], she is still grieving. She and her are , she wanted to go to couples counseling but he would only go in [place] and they could not find a [place] speaking counselor. Note from 2019: She is [...] a process to do bariatric surgery at [facility]. She went through all the counseling ,etc, but things fell through the cracks. She is considering going back again. she had weighted more than 400 pounds last year, she lost some weight this past year with diet and exercise but still weighs 366 pounds today. She appears to be doing well. She and I discussed having her go back to [facility] to get back into their weight loss [...] breast. [email or web address] Not available 04/04/2021 14:00:20 04/17/2022 [id number] learning about healthy weight [email or web address] Not available [...] this year due to natural causes, in [place], she is still grieving. She and her are , she wanted to go to couples counseling but he would only go in [place] and they could not find a [place] speaking counselor. She appears to be doing [...] DO Not Attach Compendium, Do Not Delete/merge, [id number] 04/04/2021 13:36:07 09/08/19 20 09/08/2019 fecal occul t blood , stool Occult Blood negati ve Not Available In-Office Order Internal Use Only DO Not Attach Compendium DO Not Attach Compendium, Do Not Delete/merge, [id number] 09/08/2019 15:00:26 09/01/19 19 09/01/2018 fecal occul t blood , stool Occult Blood negati ve Not Available In-Office Order Internal Use Only DO Not Attach Compendium DO Not Attach Compendium, Do Not Delete/merge, [id number] 09/01/2018 09:30:38 12/08/19 15 12/07/2014 pregn marshal test, urine HCG negati ve Not Available In-Office Order Internal Use Only DO Not Attach Compendium DO Not Attach Compendium, Do Not Delete/merge, [id number] 12/07/2014 10:52:47 12/08/19 15 12/07/2014 gener al5ca se [id number] RESUL TS OF GEN-P ROBE APTIM A [...] joanne. Physi JAYSON Russ N /#[phone] Cytop athol ogy servi carlos provi ded by [facility] at the above addre ss. Not Available [facility], Cytopathology Service [address] [place], [address], 12/09/2014 15:06:31 12/08/19 15 12/07/2014 pap, LB [id number] ThinP rep Pap, Image d: NEGAT SÁNCHEZ [...] at the above addre ss. Not Available [facility], Cytopathology Service [address] [place] [address], [address], 12/14/2014 12:26:29 09/01/19 19 09/01/2018 pap, LB [id number] ThinP rep Pap, Image d: NEGAT SÁNCHEZ [...] . LPS 5 NEG, Z12.4 Not Available [facility], Cytopathology Service [address] [place] [address], [address], 09/02/2018 17:26:28 09/08/19 20 09/08/2019 pap, LB [id number] ThinP rep Pap, Image d: NEGAT SÁNCHEZ [...] . LPS NEG [Z12. 4] Not Available [facility], Cytopathology Service [address] [place], [address], 09/10/2019 13:06:44 04/04/20 21 04/04/2021 PAP1C ASE [id number] ThinP rep Pap, Image d: NEGAT SÁNCHEZ FOR SQUAM OUS INTRA EPITH ELIAL LESIO N AND MALIG STEPHIE . Raya Shah hers , CT( CP) (Case elect martin ys chuy d 04 12 2021) ADEQU ACY: Satis facto ry Endoc ervic al/tr ansfo rmati on zone compo nent absen t. SOURC E: ThinP rep Pap HPV IF ASCUS , Cervi jose, Image d CLINI JOSE INFOR MATIO N: HPV If Diagn osis of ASCUS . LPS 0 NEG [Z12. 4] Not Available [facility] Cytopathology Service [address] [place] [address], [address], 04/12/2021 13:55:52 04/17/2004/17/2022 PAP1C ASE [id number] ThinP rep Pap, Image d: NEGAT SÁNCHEZ [...] IUD, LPS neg. [z01. 419] Not Available [facility], Cytopathology Service [address] [place] [address], [address], 04/23/2022 08:11:00 04/17/20 22 04/17/2022 fecal occul t blood , stool Occult Blood negati ve Not Available In-Office Order Internal Use Only DO Not Attach Compendium DO Not Attach Compendium, Do Not Delete/merge, [id number] 04/17/2022 10:29:09 Result Notes None recorded. Problems Name Problem SNOMED Code Status Onset Date Resolution Date Notes Provider Name and Address Organization Details Recorded Time Candidal vulvovaginiti s 69496490 Active Not Available [facility] 3 03:01:06 Irritable bowel syndrome 14243611 Active Not Available [facility] 3 03:01:06 Obesity 734916406 Active Not Available [facility] 3 03:01:06 Oligoovulator y dysfunctional uterine bleeding 359682080 Active Adriana Lara MD [address], [place], [address] , [place] - [facility], 5 11:43:08 Uncontrolled type 2 diabetes mellitus 857487736 Active Not Available [facility] 3 03:01:06 Primary female infertility 0525789 Active Not Available [facility] 3 03:01:06 Pruritus of vulva 94821707 Active Not Available [facility] 3 03:01:06 Pain in pelvis 15813447 Active Adriana Lara MD [address], [place], [address] , [place] - [facility], 4 15:07:42 Glycosuria 79241937 Active Adriana Lara MD [address], [place], [address] , [place] - [facility], 4 15:07:42 Problem Notes None recorded. Procedures Surgical History Date Name Laterality Status Provider Name and Address Organization Details Recorded Time 04/05/20 20 Most Recent Mammogram completed Yashira Alonso [place] - [facility], 04/17/2022 10:36:13 08/05/19 00 Cholecystectomy completed Taryn Beasley [place] - [facility], 11/10/2012 13:22:27 Imaging Results None recorded. Procedure Notes None recorded. Medical Equipment None Reported. Allergies Allergen ID Allergen Name Allergen Category Reaction Reaction Severity Criticality Documentation Date Start Date Code Code System Note Provider Name and Address Organization Details Recorded Time 03349 [facility] environme nt,medica tion rash Not available Not available 09/08/2019 78268 RxNorm Yashira Celeste [place] - [facility], 0 14:53:01 7561 Product containin g penicilli n (product) medicatio n rash Not available Not available 11/10/2012 96655 8001 SNOMED Taryn Beasley [place] - [facility] in [facility], 3 13:11:08 Medications Name Sig Start [...] henidate ER 40 mg capsule,ex tended release [id number] -50 TAKE 1 CAPSULE BY MOUTH EVERY [...] Precision Matthew Strips TEST CUATRO VECES AL AL NENA active Not Available Not Available No [...] N ot Available [employer] Alexei 14 Day [place] FOR TESTING GLUCOSE LEVELS active Not Available [...] 09/01/2018 175.26 cm 95 /min 54.2 kg/m2 348263.6 8 g 122/65 mm[Hg] Taryn Beasley [place] - [facility], 09/01/2018 09:12:36 Date Recorded Body weight Body mass index (BMI) Body height Heart rate Systolic And Diastolic Provider Name and Address Organization Details Last Updated DateTime 09/08/2019 585586.1 2 g 55 kg/m2 173.99 cm 110 /min 132/77 mm[Hg] Yashira Orozco in [facility], 09/08/2019 14:53:44 Date Recorded Body weight Heart rate Body mass index (BMI) Body height Systolic And Diastolic Provider Name and Address Organization Details Last Updated DateTime 12/07/2014 994043.1 769 g 103 /min 54.6 kg/m2 175.26 cm 119/71 mm[Hg] Yashira Orozco in [facility], 12/07/2014 10:17:20 Date Recorded Body height Body temperature Body mass index (BMI) Body weight Heart rate Systolic And Diastolic Provider Name and Address Organization Details Last Updated DateTime 1 173.99 cm 97.2 [degF] 58.6 kg/m2 702890. 34 g 104 /min 141/75 mm[Hg] Yashira Orozco in [facility], 1 13:34:29 Date Recorded Body weight Body mass index (BMI) Body height Body temperature Heart rate Systolic And Diastolic Provider Name and Address Organization Details Last Updated DateTime 2 737683. 19 g 54.3 kg/m2 172.72 cm 98.1 [degF] 93 /min 142/79 mm[Hg] Yashira Orozco in [facility], 2 10:33:37 Social History Question Answer Notes LastModified by Organizat ion Details LastModified Time Tobacco Smoking Status Never Smoker Not Available [facility] 06/07/2020 03:19:40 What Is Your Level Of Caffeine Consumption? Occasional [id number] Information not available 06/07/2020 In The 14 [...] Type Of Diet Are You Following? REGULAR [id number] Information not available 06/07/2020 Which Illicit Or Recreational Drugs Have You Used? None [id number] Information not available 06/07/2020 Do You Reside In Or Have You Traveled To An Area Where Ebola Virus Transmission Is Active? No [id number] Information not available 06/07/2020 Education Post Graduate Information not available 11/10/2012 What Is The Highest Grade Or Level Of School You Have Completed Or The Highest Degree You Have Received? [id number] Information not available 04/04/2021 Who Is Your [...] Female Information not available 09/01/2018 Marital Status [employer] not available 11/10/2012 What Was The Date Of Your Most Recent Tobacco Screening? 04/04/2021 Information not available 04/04/2021 What Is Your Relationship Status? Information not available 04/04/2021 Are You Sexually Active? Yes [id number] Information not available 06/07/2020 How Much Tobacco Do You Smoke? No [id number] Information not available 06/07/2020 General Stress Level [...] is your level of alcohol consumption? None [id number] Information not available 06/07/2020 Do you or have you ever used smokeless tobacco? Never used smokeless tobacco [id number] Information not available 06/07/2020 Are you currently employed? 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 Never used electronic cigarettes [id number] Information not available 06/07/2020 What is your exercise level? None [id number] Information not available 06/07/2020 Mental Status Question Answer Note LastModified by Organization D etails LastModified Time Do you feel stressed (tense, restless, nervous, or anxious, or unable to sleep at night)? [id number] Information not available 04/04/2021 Family History Relationship [...] MD [address], [place], [address], [place] Orozco in [facility], 11/10/2012 13:43:51 Tdap 3 completed [place] Sexton in [facility], 12/11/2012 15:22:23 Influenza, split virus, quadrivalent, preservative 9 completed [place] Sexton in [facility], 09/01/2018 09:26:24 COVID-19, mRNA, LNP-S, PF, 100 mcg/0.5mL dose or 50 mcg/0.25mL dose 1 completed [place] Ramos in [facility], 04/04/2021 13:38:30 Influenza, split virus, quadrivalent, preservative 1 completed [place] Ramos in [facility], 04/17/2022 10:34:55 Past Encounters Encounter ID Performer Location Encounter Start Date Encounter Closed Date Diagnosis/Indication Diagnosis SNOMED-CT Code Diagnosis ICD10 Code Diagnosis IMO Codes Diagnosis Note [id number] MD ADRIANA Dickson MD [address] [place] [address] 11/10/2012 12:51:19 11/11/2012 08:37:47 [id number] MD ADRIANA Dickson MD [address] [place] [address] 12/11/2012 15:08:24 12/12/2012 16:10:03 [id number] MD ADRIANA Dickson MD [address] [place] [address] 08/21/2013 13:33:26 08/21/2013 15:51:36 Pain in pelvis 68083350 Acute lowe r urinary tract infection 889089628 Glycosuria 17722727 [id number] MD ADRIANA Dickson MD [address] [place] [address],[place] [address] 11/13/2013 09:28:08 11/13/2013 13:10:39 Specialized medical examination 53894090 [id number] MD ADRIANA Dickson MD [address] [place] [address],[place] [address] 12/07/2014 10:02:59 12/07/2014 13:34:46 Specialized medical examination 25720633 Venereal d isease screening 697280987 Oligoovula tory dysfunctional uterine bleeding 734958108 [id number] MD ADRIANA Dickson MD [address] [place] [address],[place] [address] 09/01/2018 09:04:26 09/01/2018 12:06:59 Specialized medical examination 11964622 Z01.419 Screening for malignant neoplasm of rectum 816704670 Z12.12 Screening mammography 24 148734 Z12.31 [id number] MD ADRIANA Dickson MD [address] [place] [address],[place] [address] 09/08/2019 14:46:50 09/08/2019 15:34:18 Specialized medical examination 82905457 Z01.419 Screening for malignant neoplasm of rectum 133534861 Z12.12 Screening mammography 24 310277 Z12.31 [id number] MD ADRIANA Dickson MD [address] [place] [address],[place] [address] 04/04/2021 13:29:45 04/04/2021 14:48:20 Specialized medical examination 04817677 Z01.419 Screening for malignant neoplasm of rectum 363967524 Z12.12 Screening mammography 24 886055 Z12.31 [id number] MD ADRIANA Dickson MD [address] [place] [address],[place] [address] 04/17/2022 10:28:03 04/17/2022 11:34:15 Specialized medical examination 68723512 Z01.419 Screening for malignant neoplasm of rectum 749331501 Z12.12 Screening mammography 24 216527 Z12.31 Health Concerns Section Related Observation LastModified by Organization Detai ls LastModified Time None Recorded Concern Status LastModified by Organization Details LastModified Time None Recorded Advance Directives Directive None Recorded Payers Insurance Date Sequence Insurance Name Policy Number Policy Fountain Covered Member ID Fountain Member ID Guarantor Name 09/03/2019 1 [facility] [id number] Glorymar López [id number] Glorymar López Colon 09/03/2019 1 [facility] [id number] Glorymar López [id number] Glorymar López Colon 09/03/2019 1 [facility] - CHO[facility] (O) [id number] Glorymar López [id number] Glorymar López Colon 04/14/2022 1 [facility] [id number] Glorymar López [id number] Glorymar López Colon 09/03/2019 1 [facility] [id number] Glory López [id number] 1 Glorymar López Colon 02/14/2023 2 [employer] [id number] Glorymar López Colon [id number] Glorymar López Colon Notes Date Note Type Note Provider Name and Address Organization Details Recorded Time 12/07/2014 text/html ROS as noted in the HPI Adriana Lara MD [address] [facility],[address], [place], [address], [place] - [facility], 12/07/2014 11:43:24 09/01/2018 text/html She is here for annual exam. She has not been here since 2014. She was seeing [facility] infertility but they gave up on theat and put in a Mirena 2 years ago. No menses. Her diabetes has been Bad. In 07/2016 she started a process to do bariatric surgery at [facility]. She went through all the counseling ,etc, but things fell through the cracks. She is considering going back again. she had weighted more than 400 pounds last year, she lost some weight this past year with diet and exercise but still weighs 366 pounds today. _ note from 2015: She is here for annual exam. Her latest A1C was 10, in 06/18, the [facility] referred her to endocrinology in 06/18, she was given instructions for rescue insulin doses when her sugars are high, she is doing that now, she had an A1C drawn on 11/25/14 but has not received the results yet. Adriana Lara MD [address], [place], [address], [place] - [facility], [...] been here since 2014. She was seeing [facility] but they gave up on theat and put in a Mirena 2 years ago. No menses. Her diabetes has been Bad. In 07/2016 she started a process to do bariatric surgery at [facility]. She went through all the counseling ,etc, but things fell through the cracks. She is considering going back again. she had weighted more than 400 pounds last year, she lost some weight this past year with diet and exercise but still weighs 366 pounds today. Adriana Laar MD [address], [place], [address], [place] - [facility], 09/08/2019 15:23:49 04/04/2021 text/html She is here for annual exam, weight is 391 pounds, BMI is 58.6. She had a Mirena inserted 08/2016. No menses. Her mother earlier this year due to natural causes, in [place], she is still grieving. She and her are , she wanted to go to couples counseling but he would only go in [place] and they could not find a [place] speaking counselor. Note from 2019: She is [...] a process to do bariatric surgery at [facility]. She went through all the counseling ,etc, but things fell through the cracks. She is considering going back again. she had weighted more than 400 pounds last year, she lost some weight this past year with diet and exercise but still weighs 366 pounds today. Adriana Lara MD [address], [place], [address], [place] [facility], 04/04/2021 14:00:40 04/17/2022 text/html Her weight [...] this year due to natural causes, in [place], she is still grieving.She and her are , she wanted to go to couples counseling but he would only go in [place] and they could not find a [place] speaking counselor. Adriana Lara MD [address], [place], [address], [place] - [facility], 04/17/2022 11:00:04 OBGyn Episode No OBEpisode recorded.
== END 2025-06-22 10:17 | disposition home or self-care (01) ==
LOC: HO.HOP 09:09
PROVIDERS: PCP Family Medicine; Visit Provider Counselor Mental Health
DX: F90.2 Attention-deficit hyperactivity disorder, combined type (principal); F41.0 Panic disorder [episodic paroxysmal anxiety]; F32.A Depression, unspecified
CPT/HCPCS: 90837

== ENCOUNTER 2025-07-06 09:06 | Outpatient (AMB) | payer OTHER, SELFPAY ==
--- NOTE | 2025-07-06 09:07 | MHC.WMTHER ---
Intake Intake Visit Reasons: VIDEO OP Therapy Allergies Penicillins Allergy (Intermediate, Verified 03/16/25 13:12) Shortness of Breath pt states no food allergies Allergy (Unknown, Uncoded 03/16/25 13:12) Unknown [facility] Medical History Type 2 diabetes mellitus with retinopathy Asthma Insomnia Neuropathy Breast calcification, right Adenocarcinoma determined by biopsy of liver Diabetic retinopathy Anxiety and depression GERD (gastroesophageal reflux disease) SOLE on CPAP ADHD Hyperlipidemia HTN (hypertension) with goal to be determined Diabetes mellitus Morbid obesity Surgical History Hx of LASIK History of cholecystectomy Family History Mother Diabetes Heart problem Father Hypertension Maternal Grandmother Primary cancer of bone marrow Maternal Grandfather Prostate cancer Social History Are you a primary care transition coordinator to a significant other at home: No Do you presently have visiting nurse or other home services: No Alcohol intake: never Patient Tobacco Use Status: Never used Tobacco Female Reproductive History Menstrual Age of Menarche: 13 Behavioral Health Assessment Weight Management Therapy Therapy Notes Details Subjective: The patient reports increased tension, sleep disturbances, and heightened appetite. She has recently started the pre-bariatric diet in preparation for her upcoming bariatric surgery scheduled for 07/16/25 at [facility]. She is hoping to take 4?6 weeks off post-operatively. The patient expresses difficulty maintaining an organized meal schedule and feels her eating patterns are somewhat erratic. She describes her work environment as stressful, though she notes that her personal life has improved and is currently more stable. Objective: During today?s session, the patient?s current stressors, sleep issues, and appetite changes were explored in depth. Cognitive-behavioral interventions were implemented, including psychoeducation on the relationship between stress, sleep, and appetite dysregulation. The patient was guided through cognitive restructuring exercises to identify and challenge unhelpful thoughts contributing to her tension and disorganization. Behavioral activation strategies were introduced, focusing on establishing a consistent bedtime routine and scheduling regular, balanced meals to support her pre-bariatric diet. Problem-solving techniques were used to address barriers to meal planning and to develop practical strategies for managing work-related stress. Relaxation techniques, such as diaphragmatic breathing and brief mindfulness exercises, were practiced in session to help manage acute anxiety and promote better sleep hygiene. The patient was receptive to these interventions and expressed motivation to implement the discussed strategies. Assessment/Response: Mental status: Alert, oriented, and appropriately groomed. Mood described as ?tense but hopeful.? Affect congruent. Thought process logical and goal-directed. No suicidal or homicidal ideation. No evidence of psychosis. Insight and judgment intact. Risk reported/identified: No current safety concerns or risk behaviors identified. Assessment & Plan Assessment & Plan (1) ADHD: Code(s): F90.9 - Attention-deficit hyperactivity disorder, unspecified type Qualifiers: Attention deficit-hyperactivity disorder type: combined inattentive-hyperactive Qualified Code(s): F90.2 - Attention-deficit hyperactivity disorder, combined type (2) Panic disorder: Code(s): F41.0 - Panic disorder [episodic paroxysmal anxiety] (3) Depression, unspecified: Code(s): F32.A - Depression, unspecified Plan Continue behavioral health support with a focus on stress management, sleep hygiene, and meal planning as the patient prepares for bariatric surgery. Follow-up scheduled in 4 weeks due to provider absence, with the next appointment set for 08/03/25 at 9am via video. Telehealth Telehealth [facility] Location of provider rendering services: other (Home office. [place], [place]) Location of patient: address on file Patient Identification confirmed using: Name, : Yes Telehealth method: video Patient verbally consented to treatment: Yes Patient verbally consented to billing insurance company: Yes Patient informed of any privacy concerns related to visit: Yes Minutes spent on Phone/Video with Pt.: 60 [place] [id number] Tele Psytx >53 mins Patient Type Established Diagnoses Attention deficit hyperactivity disorder (ADHD), combined type F90.2 Attention deficit-hyperactivity disorder type: combined inattentive-hyperactive Panic disorder F41.0 Depression, unspecified F32.A Time Spent (min) 60 Comment start time: 9:00am, end time: 10:00am
--- OUTSIDE RECORDS SUMMARY | 2025-07-06 09:30 | XMS_ITS | Encounter Summary ---
Author Organization [facility] Address [address] [place], [place] [id number] Care Team Providers Care Wine And Spirits Clerk Name Role Phone Nicole Padron MD Primary Care Provider [phone] Reason for Visit * Reason Comments Medical Record Encounter Details Date Type Department Care Team (Late Contact Info) Description 03/23/2025 Abstract [facility] [place] [address] Unknown, Abstract Provider Social History Tobacco Use [...] AM EDT CPE - Comprehensive Physical Exam [facility] [place] [address] [place] [phone] Bc Buckley, MAXIMO [address] [place] [address] CPE documented as of this encounter Goals [...] on filedocumented in this encounter Care Teams Wine And Spirits Clerk Relationship Specialty Start Date End Date Nicole Padron MD [address] [place] [address] PCP - General Family Medicine 10/28/24 documented as of this encounter
--- OUTSIDE RECORDS SUMMARY | 2025-07-06 09:30 | XMS_ITS | Encounter Summary ---
Author Organization [employer] [facility] [employer] Address [address] [facility] [address] [place] [address] Care Team Providers Care Casserole Preparer Name Role Phone Unavailable Primary Care Provider Unavailabl e Reason for Visit * Reason Comments Med Refill Encounter Details Date Type Department Care Team ([facility] st Contact Info) Description 10/13/2024 Refill [facility] [address] [place] [address] Braulio Carbajal MD [address] [place] [address] Primary hypertension Social History Tobacco Use Types [...]
--- OUTSIDE RECORDS SUMMARY | 2025-07-06 09:30 | XMS_ITS | Encounter Summary ---
Author Organization [facility] Address [address] [place] [address] Care Team Providers Care Ethnographic Materials Conservator Name Role Phone Nicole Padron MD Primary Care Provider [phone] Encounter Details Date Type Department Care Team (Late Contact Info) Description 03/30/2025 Orders Only [address] [phone] Nicole Padron MD [address] [place] [id number] Social History Tobacco Use Types Packs/Day Years [...] AM EDT CPE - Comprehensive Physical Exam [address] [phone] Bc Buckley, MAXIMO [address] [place] [address] CPE documented as of this encounter Goals Goal Patient Goal Type Associated Problems Recent Progress Patient-Stated? Author Blood Pressure < 140/90 Blood Pressure 119/79(03/02 9:52 AM EDT) cB Olivier DNP Note: Above is your goal [...] of this encounter Procedures * Due to [place] state law, this organization might not be sharing negative HIV tests. Procedure Name Priority Date/Time Associated Diagnosis Comments CULTURE, URINE, ROUTINE Routine 03/30/2025 12:26 PM EDT Dysuria URINALYSIS, COMPLETE INCLUDES DIPSTICK AND MICROSCOPIC Routine 03/30/2025 12:26 PM EDT Dysuria documented in this encounter Results * Due to [place] state law, this organization might not be [...] 1:20 AM EDT Narrative Resulting Agency Comment [id number] Nicole Padron MD LAB SAME DAY RESULT Final Result Performing Organization Address City/State/[facility] Co de Phone Number [facility] [address] [place] [address] * (ABNORMAL) CULTURE, URINE, ROUTINE (03/30/2025 12:26 PM EDT) Bacteria culture (Urine) SEE NOTE(A) [facility] Comment: CULTURE, URINE, ROUTINE Micro Number: [id number] Test Status: Final Specimen Source: Not given [...] 1:20 AM EDT Narrative Resulting Agency Comment [id number] Nicole Padron MD LABORATORY Final Result Performing Organization Address City/State/[facility] Phone Number [facility] [address] [place] [address] documented in this encounter Visit Diagnoses Diagnosis Dysuria documented in this encounter Care Teams Ethnographic Materials Conservator Relationship Specialty Start Date End Date Nicole Padron MD [address] [facility] [address] PCP - General Family Medicine 10/28/24 documented as of this encounter
--- OUTSIDE RECORDS SUMMARY | 2025-07-06 09:30 | XMS_ITS | Clinical Summary ---
Author Organization [address] [facility] Address [address] [place] [address] Phone Care Team Providers Care Construction Sales Representative Name Role Phone Braulio Carbajal Primary Care Provide r Allergies Active Allergy Reactions Criticality Noted Date Comments Penicillins 11/11/2012 Medications FREESTYLE LANCETS MISC Use to test blood sugar 4 times a day.DX-250.00 12/31/19 14 Active blood sugar diagnostic (FreeStyle Lite Strips) test strip Use to test blood sugar 4 times a day.DX-250.00 12/31/19 14 Active blood-glucose meter kit Use to check blood sugar 4 times a day.DX-250.00 02/16/20 14 Active atorvastatin (LIPITOR) 20 mg tablet Take 1 tablet (20 mg total) by mouth at bedtime. 03/03/20 14 Active cholecalcifero l, vitamin D3, 75 mcg (3,000 unit) tablet Take by mouth. Ac tive amphetamine-de xtroamphetamin e (ADDERALL) 20 mg tablet Take 2 tablets (40 mg total) by mouth 1 (one) time each day. In afternoon in addition to 20mg xr In am Max Daily Amount: 40 mg Active fluticasone propionate (FLONASE) 50 mcg/actuation nasal spray Administer 1 spray into affected nostril(s) 1 (one) time each day. 12/12/19 13 Active LORazepam (ATIVAN) 1 mg tablet Take 1 tablet (1 mg total) by mouth every 6 (six) hours if needed. Max Daily Amount: 4 mg Active omeprazole (PriLOSEC) [address] capsule Take 1 capsule (20 mg total) by mouth 1 (one) time each day. 11/12/19 13 Active ondansetron (ZOFRAN) 4 mg tablet Take 1 tablet (4 mg total) by mouth every 6 (six) hours if needed for nausea. 02/16/20 14 Active ergocalciferol (VITAMIN D-2) 1,250 mcg (50,000 unit) capsule Take 1 capsule (50,000 Units total) by mouth 1 (one) time per week. 12 each 07/24/20 24 025 Active buPROPion XL (WELLBUTRIN XL) 150 mg 24 hr tablet Take 1 tablet (150 mg total) by mouth 1 (one) time each day. Do not crush, chew, or split. Active FLUoxetine (PROzac) 20 mg capsule Take 1 capsule (20 mg total) by mouth 1 (one) time each day. Active Mounjaro 15 mg/0.5 mL injection 03/22/20 25 Active NON FORMULARY Take 1 capsule by mouth 1 (one) time each day if needed (stomach cramps). 03/03/20 14 025 Discontinued biotin 1 mg tablet Take by mouth. 025 Discontinued diphenoxylate- atropine (LOMOTIL) 2.5-0.025 mg per tablet Take 1 tablet by mouth if needed for diarrhea. 02/16/20 14 025 Discontinued insulin glargine (LANTUS) 100 unit/mL injection Inject 40 Units under the skin at bedtime. 025 Discontinued insulin lispro (HumaLOG U-100 Insulin) 100 unit/mL injection Inject 20 Units under the skin 3 (three) times a day before meals. 10/24/19 15 025 Discontinued metFORMIN XR (GLUCOPHAGE-XR ) 500 mg 24 hr tablet Take 1 tablet (500 mg total) by mouth 2 (two) times a day. 07/06/20 14 025 Discontinued sertraline (ZOLOFT) 100 mg tablet Take 1 tablet (100 mg total) by mouth 2 (two) times a day. 06/28/20 14 025 Discontinued Active Problems Problem Noted Date Diagnosed Date Morbid obesity with BMI of 4 5.0-49.9, adult ([facility] V24, [facility] V28) 04/02/2025 Class 3 severe obesity with serious comorbidity and body mass index (BMI) of 50.0 to 59.9 in adult ([facility] V24, [facility] V28) 01/18/2025 Class 3 severe obesity with serious comorbidity and body mass index (BMI) of 50.0 to 59.9 in adult ([facility] V24, [facility] V28) 12/18/2024 Class 3 severe obesity with serious comorbidity and body mass index (BMI) of 50.0 to 59.9 in adult ([facility] V24, [facility] V28) 07/20/2024 HTN (hypertension) 05/22/2024 IBS (irritable bowel syndrome) 05/22/2024 ADHD (attention deficit hype ractivity disorder), combined type 08/16/2014 Sleep apnea 06/28/2014 Morbid obesity ([facility] V24, [facility] V28) 2013 Overview (05/22/2024): BMI 52.25 on 06/05/13. Condition not found 06/05/2013 Overview (05/22/2024): Diabetes mellitus type II, uncontrolled Depression 04/05/2012 Encounters Date Type Department Care Team Description 06/30/2025 11:00 AM EST Consult Bariatric Surgery - [address] [phone] Class 3 severe obesity with serious comorbidity and body mass index (BMI) of 45.0 to 49.9 in adult, unspecified obesity type ([facility] V24, [facility] V28) (Primary Dx) from Last 3 Months Immunizations Immunization Administration Dates Next Due Tdap Tetanus diptheria acell ular pertussis (Boostrix; Adacel) 7yo and older 12/11/2012 Surgical History Surgery Date Site/Laterality Comments CHOLECYSTECTOMY 1999 PROCEDURE: HISTORICAL CHOLECYSTECTOMY Medical History Medical History Date Comments HTN (hypertension) 2011 DX:HTN (hyper tension) DM (diabetes mellitus) ([facility] V24, [facility] V28) 2006 DX:DM (diabetes mellitus) (H CC) IBS (irritable bowel syndrome) 1994 D X:IBS (irritable bowel syndrome) Depression 04/2012 DX:Depression Esophageal reflux DX:Esophageal reflux ADHD (attention deficit hype ractivity disorder), combined type 08/16/2014 DX:ADHD (attention deficit hyperactivity disorder), combined type Hyperlipidemia Anxiety Liver disease Cholelithiasis Sleep apnea Family History Medical History Relation Name Comments [...] - Inhaled Oxygen Concentration - - Weight 147 kg (324 lb) 06/30/2025 11:07 AM EST Height 175.3 cm (5' 9 ) 2025 1:00 PM EST Body Mass Index 47.85 2025 1:00 PM EST Plan of Treatment Upcoming Encounters Date Type Department Care Team (Late st Contact Info) Description 07/06/2025 10:30 AM EST Pre-Admission Testing [facility] Pre-Admission Testing [address] [place] [address] 07/12/2025 12:45 PM EST Consult Bariatric Surgery - [place] [address] [phone] Gosia Stoner MD [address] [place] [phone] 07/16/2025 9:00 AM EST Hospital Encounter [facility] Main OR [address] [place] [phone] Gosia Stoner MD [address] [place] [address] 07/16/2025 9:00 AM EST - 07/16/2025 11:30 AM EST Surgery [facility] Main OR [address] [place] [phone] Gosia Stoner MD [address] [place] [phone] DAVINCI SLEEVE GASTRECTOMY [16744 (CPT )] 08/02/2025 11:00 AM EST Office Visit Bariatric Surgery [facility] [address] [phone] Gosia Stoner MD [address] [place] [phone] 08/16/2025 11:00 AM EST Telemedicine Bariatric Surgery [facility] [address] [phone] Prema Wallis, RD [address] [phone] 09/21/2025 11:15 AM EST Office Visit Bariatric Surgery [facility] [address] [phone] Gosia Stoner MD [address] [place] [phone] Scheduled Procedures Name Priority Associated Diagnoses Date/Ti me GASTRECTOMY SLEEVE ROBOT Morbid obesity with BMI of 45.0-49.9, adult ([facility] V24, [facility] V28) 07/16/2025 9:00 AM EST Health Maintenance Due Date Last [...] 2025 07/13/2021, 09/22/2020, 09/06/2020, Additional history exists Diabetes: Blood Sugar Control [...] Completed 01/24/2022 Hepatitis C Screening Completed 03/02/2025 Influenza Vaccine Completed 06/12/2025, , 05/29/2023, Additional history exists HIB Vaccines Aged Out [...] Type Associated Problems Recent Progress Patient-Stated? Author Autoeris stewart Goal Care Plan Autogenerated Problem No Gosia Stoner MD Procedures Procedure Name Priority Date/Time Associated Diagnosis Comments COMPREHENSIVE METABOLIC PANEL Routine 07/20/2024 8:33 AM EST Morbid obesity ([facility] V24, [facility] V28) HEMOGLOBIN A1C Routine 07/20/2024 8:33 AM EST Morbid obesity ([facility] V24, [facility] V28) LIPID PANEL WITH REFLEX TO DIRECT LDL Routine 07/20/2024 8:33 AM EST Morbid obesity ([facility] V24, [facility] V28) HM URINE ALBUMIN CREATININE RATIO Routine 02/26/2014 from Last 3 Months or Most Recently Relevant to Health Maintenance Results * (ABNORMAL) Lipid panel with reflex to direct LDL (07/20/2024 8:33 AM EST) Cholesterol 179 0 - 200 mg/dL LAB CHEMISTRY METHOD 07/20/2024 11:24 AM EST [facility] Triglycerides 89 0 - 150 mg/dL LAB CHEMISTRY METHOD 07/20/2024 11:24 AM EST [facility] HDL 53 >=40 mg/dL LAB CHEMISTRY METHOD 07/20/2024 11:24 AM EST [facility] LDL Calculated 108(H) 0 - 100 mg/dL LAB CHEMISTRY METHOD 07/20/2024 11:24 AM EST [facility] VLDL Cholesterol Francisco J 17.8 mg/dL LAB CHEMISTRY METHOD 07/20/2024 11:[address] [facility] Non HDL Chol. (LDL+VLDL) 126 <145 mg/dL LAB CHEMISTRY METHOD 07/20/2024 11:24 AM EST [facility] Chol/HDL Ratio 3.4 0.0 - 4.4 LAB CHEMISTRY METHOD 07/20/2024 11:[address] [facility] Blood Venous blood specimen / Unknown Venipuncture / Unknown 07/20/2024 8:33 AM EST 07/20/2024 8:33 AM EST us Gosia Stoner MD LAB BLOOD ORDERABLES Fi nal Result Performing Organization Address City/[facility]/ZIP Co de Phone Number [facility] [address] [place] [address], * (ABNORMAL) Hemoglobin A1c (07/20/2024 8:33 AM EST) Hemoglobin A1C 7.9(H) <6.5 % LAB CHEMISTRY METHOD 07/20/2024 2:41 PM EST [facility] Mean Bld Glu Estim. 180 mg/dL LAB CHEMISTRY METHOD 07/20/2024 2:41 PM EST [facility] Blood Venous blood specimen / Unknown Venipuncture / Unknown 07/20/2024 8:33 AM EST 07/20/2024 8:33 AM EST us Gosia Stoner MD LAB BLOOD ORDERABLES Fi nal Result [facility] [address] [place] [address], * (ABNORMAL) Comprehensive metabolic panel (07/20/2024 8:33 AM EST) Sodium 136 133 - 145 mmol/L LAB CHEMISTRY METHOD 07/20/2024 11:[address] [facility] Potassium 4.5 3.5 [...] [facility] Comment:Calculation based on the Chronic [...] LAB CHEMISTRY METHOD 07/20/2024 11:24 AM EST [facility] Albumin 3.6 3.2 - 5.0 g/dL LAB CHEMISTRY METHOD 07/20/2024 11:[address] [facility] Total Bilirubin 0.4 0.0 - 1.4 mg/dL LAB CHEMISTRY METHOD 07/20/2024 11:[address] [facility] Blood Venous blood specimen / Unknown Venipuncture / Unknown 07/20/2024 8:33 AM EST 07/20/2024 8:33 AM EST Gosia Stoner MD LAB BLOOD ORDERABLES Fi nal Result [facility] [address] [place] [address], * HM Urine Albumin Creatinine Ratio (02/26/2014) Urine Albumin Creatinine Ratio Abstracted Historical Provider HEALTH MAINTENANCE Final Result from Last 3 Months or Most Recently Relevant to Health Maintenance Additional Health Concerns Active Problems Noted Date Diagnosed Date Autogenerated Problem 06/17/2025 Insurance [employer] Care Teams Construction Sales Representative Relationship Specialty Start Date End Date Braulio Carbajal [address] [place], [place] PCP - General Internal Medicine 03/20/22
--- OUTSIDE RECORDS SUMMARY | 2025-07-06 09:30 | XMS_ITS | Data Portability ---
Author Organization [place] [facility] [place] Address [address] [place] [address] Care Team Providers Care Security Operations Manager Name Role Phone JAVIER LANGLEY Referring Provider [phone] Assessment Encounter Date Assessment Date Assessment LastModified by Organization Details LastModified Time 06/18/2024 06/18/2024 IMPRESSION: 49-year-old buyyi-qycm-yzlspcq t woman with RIGHT lateral epicondylitis. PLAN: [...] Gonzalez MS, PA-C in indirect conjunction with [facility] provider Clark Andino MD. He [...] massage. 2023 024 [email or web address] Not available 14:29:59 Procedures injection, hip, fluoro guidance (PROC) - Hip Cortisone Injection, Fluoroscopy guided, please contact patient directly to schedule Diagnosis: Left hip pain. Ultrasound or x-ray guided intra-artic ular injection of steroid and short and/or long-acting anesthetic to femoral-thony tabular joint. Please document pre and post procedure pain levels (0-10 scale). 2023 024 [email or web address] [facility], [address] [place] [address], [address], 5 15:48:51 Surgeries None recorded. Imaging XR, hip, unilateral, 2 or 3 view 2023 024 [email or web address] [facility], [address], [place], [address], 4 11:51:40 XR, elbow, 3 or more view 2023 024 [facility], [address], [place], [address], 4 16:54:16 Medication Orders meloxicam 15 mg tablet 2023 024 [facility], [address] [place] [address], [place], [address], 4 14:11:51 Patient TargetsNo targets recorded. Patient Instructions Encounter Date Encounter Id Patient Instructions Last Modified By Organization Details Last Modified Time 06/18/2024 [id number] tennis elbow: exercises Not available 06/18/2024 14:11:37 [...] RIGHT elbow. Not available 06/18/2024 13:55:08 07/07/2024 [id number] 4 view X-ray lory dy obtained during [...] Organization Details Recorded Time Lateral epicondyli tis 934009248 Active [address], [place], [address] , [place] [facility], P 4 14:10:53 Lateral epicondyli tis 429230970 Active [address], [place], [address] , [place] [facility], P 4 14:11:09 Osteoarthr itis of left hip joint 3785552240307 08 Active 2023 GERRAD GONZALEZ PA-C [address], [place], [address] , [place] [facility], P 4 11:06:02 Problem Notes None recorded. [...] ICD10 Code Diagnosis IMO Codes Diagnosis Note [id number] Oscar Avina MD [facility] [address] [place] [address] [address] [place] [address] 06/18/2024 13:20:00 06/18/2024 14:16:30 Pain of elbow region 87648477 M25.521 [id number] Lateral epicondylitis 20 6475570 M77.10 [id number] 25224 GERARD GONZALEZ PA-C [address] [place] [address] 07/07/2024 10:17:23 07/07/2024 11:04:15 Pain of hip region 66136968 M25.039 [id number] Osteoarthr itis of left hip joint 9538153501 69054 M16.12 [id number] Health Concerns Section Related Observation LastModified by Organization Detai ls LastModified Time None Recorded Concern Status LastModified by Organization Details LastModified Time None Recorded Advance Directives Directive None Recorded Payers Insurance Date Sequence Insurance Name Policy Number Policy Fountain Covered Member ID Fountain Member ID Guarantor Name 11/16/2024 1 Dormir [id number] Julia Mena [id number] Julia King on Notes Date Note Type [...] 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 She is [id number] . Oscar Avina MD [address], [place], [address], [place] [facility], P 06/18/2024 14:13:14 07/07/2024 text/html 49-year-old female [...] GERARD GONZALEZ PA-C [address], [place], [address], [place] [facility], P 07/07/2024 11:07:40 OBGyn Episode No OBEpisode recorded.
--- OUTSIDE RECORDS SUMMARY | 2025-07-06 09:30 | XMS_ITS | Encounter Summary ---
Author Organization [facility] Address [address] [place] [address] Care Team Providers Care Filler Wiper Name Role Phone Nicole Padron MD Primary Care Provider Encounter Details Date Type Department Care Team (Late st Contact Info) Description 03/02/2025 Orders Only [facility] [address] [place] [phone] Bc Buckley, [facility] [address] [place] [address] Social History Tobacco Use Types Packs/Day Years [...] as of this encounter Functional Status * PHQ-2 Severity Assessment Answer Date of Assessment Author Negative 03/02/2025 9:32 AM EDT Tablet, [place] * TROY-2 Severity Assessment Answer Date of Assessment Author Negative 03/02/2025 9:32 AM EDT Tablet, [place] * AUDIT-C Assessment Answer Date of Assessment Author Negative 03/02/2025 9:32 AM EDT Tablet, [place] * TROY-2 Severity Score Answer Date of Assessment Author 1 03/02/2025 9:32 AM EDT Tablet, [place] * PTSD Score Answer Date of Assessment Author 0 03/02/2025 9:32 AM EDT Tablet, [place] * Have you had nightmares about the event(s) or thought about the event(s) when you did not want to? Answer Date of Assessment Author 0 03/02/2025 9:32 AM EDT Tablet, [place] * Have you tried hard not to think about the event(s) or went out of your way to avoid situations that reminded you of the event(s)? Answer Date of Assessment Author 0 03/02/2025 9:32 AM EDT Tablet, [place] * Have you been constantly on guard, watchful, or easily startled? Answer Date of Assessment Author 0 03/02/2025 9:32 AM EDT Tablet, [place] * Have you felt numb or detached from people, activities, or your surroundings? Answer Date of Assessment Author 0 03/02/2025 9:32 AM EDT Tablet, [place] * Have you felt guilty or unable to stop blaming yourself or others for the event(s) or any problems the event(s) may have caused? Answer Date of Assessment Author 0 03/02/2025 9:32 AM EDT Tablet, [place] * Have you ever experienced this kind of event? Answer Date of Assessment Author 1 03/02/2025 9:32 AM EDT Tablet, [place] * How often do you have a drink containing alcohol? Answer Date of Assessment Author 0 03/02/2025 9:32 AM EDT Tablet, [place] * AUDIT-C Score (Female or Male 65+) Answer Date of Assessment Author 0 03/02/2025 9:32 AM EDT Tablet, [place] * MYCHART AUDIT-C Q1 SCORE FEMALE OR MALE 65+ (Range 0-4) Answer Date of Assessment Author 0 03/02/2025 9:32 AM EDT Tablet, [place] * Drug Use Pre-Screening (SQSTDU) Score Answer Date of Assessment Author 0 03/02/2025 9:32 AM EDT Tablet, [place] * PTSD Pre-Screening Score Answer Date of Assessment Author 1 03/02/2025 9:32 AM EDT Tablet, [place] * How many times in the past year have you used an illegal/recreational drug (including cannabis/marijuana), or a prescription medication for non-medical reasons? Answer Date of Assessment Author 0 03/02/2025 9:32 AM EDT Tablet, [place] * Over the past 2 weeks, how often have you been bothered by any of the following problems? Question Answer Date of Assessment Author Patient Health Questionnaire-2 Score 0 02/03 9:32 AM EDT Tablet, [place] * Little interest or pleasure in doing things Answer Date of Assessment Author Not at all 03/02/2025 9:32 AM EDT Tablet, [place] * Feeling down, depressed, or hopeless [...] 9:32 AM EDT Tablet, [place] * Over the past 2 weeks, how often have you been bothered by any of the following problems? Question Answer Date of Assessment Author Patient Health Questionnaire-2 Score 0 02/03 9:32 AM EDT Tablet, [place] * Little interest or pleasure in doing things Answer Date of Assessment Author Not at all 03/02/2025 9:32 AM EDT Tablet, [place] * Feeling down, depressed, or hopeless [...] AM EDT CPE - Comprehensive Physical Exam [facility] [address] [place] [address] Bc Buckley DNP [address] [place] [address] CPE documented as of this encounter Goals [...] of this encounter Procedures * Due to [place] state law, [...] in this encounter Results * Due to [place] state law, this organization might not be sharing negative HIV tests. * (ABNORMAL) HEMOGLOBIN A1C (03/02/2025 10:42 AM EDT) Hemoglobin A1C 7.6(H) <5.7 % [facility] Comment: For someone without known diabetes, [...] 5:44 PM EDT Narrative Resulting Agency Comment [id number] Bc Buckley [facility] Final Result Performing Organization Address City/[facility]/ZIP Co de Phone Number [facility] [address] [place] [address] * (ABNORMAL) LIPID PANEL WITH REFLEX TO [...] LDL-C. Darci LOPEZ et al. COY. 2013;310(19): 1099-6461 (http://education.Force10 Networks/faq/MNS736) CHOL/HDL Ratio 3.8 <5.0 (calc) [facility] Cholesterol Non-HDL 134(H) <130 mg/dL (calc) [facility] Comment: For patients with diabetes plus 1 major ASCVD risk factor, treating to a non-HDL-C goal of <100 mg/dL (LDL-C of <70 mg/dL) is considered a therapeutic option. 03/02/2025 10:4 2 AM EDT 03/02/2025 5:44 PM EDT Narrative Resulting Agency Comment [id number] Bc Buckley [facility] Final Result Performing Organization Address City/[facility]/ZIP Co de Phone Number [facility] [address] [place] [address] * ALBUMIN (MICROALBUMIN), RANDOM URINE, WITH CREATININE [...] 5:44 PM EDT Narrative Resulting Agency Comment [id number] Bc Buckley [facility] Final Result [facility] [address] [place] [address] * (ABNORMAL) BASIC METABOLIC PANEL WITH (GFR) [...] needs for GFR calculation. Resulting Agency Comment [id number] Bc Buckley [facility] Final Result Performing Organization Address [facility] Co de Phone Number [facility] [address] [place] [address] * HEPATITIS C AB WITH REFLEX TO RNA PCR, SERUM (03/02/2025 10:42 AM EDT) Hepatitis C virus Ab NON-REACT SÁNCHEZ NON-REACT SÁNCHEZ [facility] Comment: HCV antibody was non-reactive. There is no laboratory evidence of HCV infection. In most cases, no further action is required. However, if recent HCV exposure is suspected, a test for HCV RNA (test code 43801) is suggested. For additional information please refer to http://education.Trupanion/faq/VQE04z1 (This link is being provided for informational/ educational purposes only.) 03/02/2025 10:4 2 AM EDT 03/02/2025 5:44 PM EDT Narrative Resulting Agency Comment [id number] Bc Buckley [facility] Final Result Performing Organization Address [facility] de Phone Number [facility] [address] [place] [address] documented in this encounter Visit Diagnoses Diagnosis Need for hepatitis C screening test Special screening examination for other specified viral diseases Type 2 diabetes mellitus without complication, with long-term current use of insulin (HCC) documented in this encounter Care Teams Filler Wiper Relationship Specialty Start Date End Date Nicole Padron MD [address] [facility] [address] PCP - General Family Medicine 10/28/24 documented as of this encounter
--- OUTSIDE RECORDS SUMMARY | 2025-07-06 09:30 | XMS_ITS | Encounter Summary ---
Author Organization [employer] Address [address] [facility] 7t [place] [address] Care Team Providers Care Transportation Security Screener Name Role Phone Unavailable Primary Care Provider Unavailabl e Reason for Visit * Reason Comments Med Refill Encounter Details Date Type Department Care Team ([facility] st Contact Info) Description 11/02/2024 Refill [facility] [address] [place] [address] Braulio Carbajal MD [address] [place] [address] Social History Tobacco Use Types Packs/Day Years [...]
--- OUTSIDE RECORDS SUMMARY | 2025-07-06 09:30 | XMS_ITS | Clinical Summary ---
Author Organization [facility] Address [address] [place] [address] Care Team Providers Care Clarifier Name Role Phone Nicole Padron MD Primary Care Provider [phone] Allergies Active Allergy Reactions Criticality Noted Date [...] (03/02/2025): 03/02/2025 following with bariatric provider through [facility] in [place]. Requesting referral. Order placed Type 2 diabetes mellitus wit hout complication, with long-term current use of insulin 03/02/2025 Anxiety and depression 03/02/2025 Overview (03/02/2025): 03/02/2025 stable on current medications. Following with outside psychiatrist Psoriasis 03/02/2025 Overview (03/02/2025): 03/02/2025 stable with Skyri[facility]. 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 Following with outside psychiatrist Encounters Date Type Department Care Team Description 04/06/2025 Results Follow-Up [facility] [address] [place] [address] Nicole Padron MD CULTURE, URINE, ROUTINE, URINALYSIS, COMPLETE INCLUDES DIPSTICK AND MICROSCOPIC from Last 3 Months Immunizations Immunization Administration Dates Next Due COVID-19, mRNA (Moderna Pre Fall 2022) Monovalent, 100 mcg/0.5 ml or 50 mcg/0.25 ml dose 07/13/2021,09/22/2020,08/25/2020 Influenza nasal,unspecified formulation 12/01/20 12 Influenza,MDCK,trivalent,PF (Flucelvax) 06/12/20 Influenza,injectable,MDCK, Prsrv Fr,Quad 022 Influenza,injectable,MDCK,quad,preservative 04/2021 Influenza,injectable,quad,Prsrv [...] AM EDT CPE - Comprehensive Physical Exam [facility] [address] [place] [address] Bc Buckley, [facility] [address] [place] [address] CPE Health Maintenance Due Date Last Done Comments Pap Smear 1992 Eye/Retina Exam 1994 Hep B (1 of 3 - 19+ 3-dose series) 1995 Pneumococcal (1 of 2 - PCV) 1995 Zoster (Shingrix) (1 of 2) 1995 Mammogram/Breast Imaging 2016 Colon Cancer Screening 2021 COVID-19 Vaccine ( season) 2025 07/13/2021, 09/22/2020, 09/06/2020, Additional history exists HA1C 09/02/2025 03/02/2025, 07/05, 07/20/2024 GFR 03/02/2026 03/02/2025, 07/20/2024 LDL Cholesterol 03/02/2026 03/02/2025, 07/05, 07/20/2024 Microalbumin 03/02/2026 03/02/2025 DTaP/Tdap/Td (3 - Td or Tdap) 03/15/2032 03/15/2022, 12/11/2012 Hepatitis C Screening Completed 03/02/2025 Physical Discontinued 03/02/2025 Influenza Completed 06/12/2025, 05/06, 05/29/2023, Additional history exists HPV Vaccine (No Doses Required) Completed Hep [...] 120 is ideal. Procedures * Due to [place] state law, this organization might not be sharing negative HIV tests. Procedure Name Priority Date/Time Associated Diagnosis Comments BASIC METABOLIC PANEL WITH (GFR) Routine 03/02/2025 [...] to Health Maintenance Results * Due to [place] state law, this organization might not be sharing negative HIV tests. * HEPATITIS C AB WITH REFLEX TO RNA PCR, SERUM (03/02/2025 10:42 AM EDT) Hepatitis C virus Ab NON-REACT SÁNCHEZ NON-REACT SÁNCHEZ [facility] Comment: HCV antibody was non-reactive. There is no laboratory evidence of HCV infection. In most cases, no further action is required. However, if recent HCV exposure is suspected, a test for HCV RNA (test code 02625) is suggested. For additional information please refer to http://education.Navmii/faq/KZG61d6 (This link is being provided for informational/ educational purposes only.) 03/02/2025 10:4 2 AM EDT 03/02/2025 5:44 PM EDT Narrative Resulting Agency Comment [id number] [facility] Final Result [facility] [address] [place] [address] * (ABNORMAL) HEMOGLOBIN A1C (03/02/2025 10:42 AM [...] 5:44 PM EDT Narrative Resulting Agency Comment [id number] [facility] Final Result Performing Organization Address City/[facility]/ZIP Co de Phone Number [facility] [address] [place] [address] * ALBUMIN (MICROALBUMIN), RANDOM URINE, WITH CREATININE [...] 5:44 PM EDT Narrative Resulting Agency Comment [id number] B[address] [facility] Final Result Performing Organization Address [facility] Co de Phone Number [facility] [address] [place] [address] * (ABNORMAL) LIPID PANEL WITH REFLEX TO [...] LDL-C. Darci LOPEZ et al. COY. 2013;310(19): 0029-3110 (http://education.Play It Gaming.GirlsAskGuys.com/faq/BWW666) CHOL/HDL Ratio 3.8 <5.0 (calc) [facility] Cholesterol Non-HDL 134(H) <130 mg/dL (calc) [facility] Comment: For patients with diabetes plus 1 major ASCVD risk factor, treating to a non-HDL-C goal of <100 mg/dL (LDL-C of <70 mg/dL) is considered a therapeutic option. 03/02/2025 10:4 2 AM EDT 03/02/2025 5:44 PM EDT Narrative Resulting Agency Comment [id number] Bc Buckley [facility] Final Result [facility] [address] [place] [address] * (ABNORMAL) BASIC METABOLIC PANEL WITH (GFR) (03/02/2025 10:42 AM EDT) Pathologist [facility] Glucose 157(H) 65 - 99 mg/dL [facility] [...] needs for GFR calculation. Resulting Agency Comment [id number] Bc Buckley DNP LABORATORY Final Result [facility] [address] [place] [address] from Last 3 Months or Most Recently Relevant to Health Maintenance Insurance COMMERCIAL MD TAYLA [id number] Care Teams Clarifier Relationship Specialty Start Date End Date Nicole Padron MD [address] [facility] [place] [address] PCP - General Family Medicine 10/28/24
--- OUTSIDE RECORDS SUMMARY | 2025-07-06 09:30 | XMS_ITS | Clinical Summary ---
Author Organization [employer] Address [address] [facility] 7t [place] [address] Care Team Providers Care Child Support Case Officer Name Role Phone Unavailable Primary Care Provider [...] 2 diabetes mellitus without complication, unspecified whether detention insulin use Inject 1.5 mg under the [...] the past 12 months, has t he [email or web address], Where Was it Filmed, oil or water [employer] threatened to shut off services in your [...] 2025 07/13/2021, 09/22/2020, 09/06/2020, Additional history exists Mammogram 05/25/2026 05/25/2024, 04/06, 04/09/2023 Zoster Vaccines (1 of 2) 2026 Lipid Panel 01/02/2028 01/01/2023, 01/04, 02/24/2020 DTaP/Tdap/Td Vaccines (4 - Td or Tdap) 03/15/2032 03/15/2022, 12/11/2012, 08/05/2012 RSV Patients and Patients Aged 60 years or older (1 - 1-dose 75+ series) 2051 HIV Screening Completed 01/24/2022 Hepatitis C Screening Completed 01/24/2022 Influenza Vaccine Completed 06/12/2025, , 05/29/2023, Additional [...] 2 diabetes mellitus without complication, unspecified whether detention insulin use (CMS/HCC) ZZZ HISTORICAL HEPATITIS C [...] PM EDT Narrative 05/25/2024 4:12 PM EDT [facility] [address] [place], [place] [address] Mammography Report Signed Patient: Julia López MR#: [id number] : 1975 Acct:[id number] Age/Sex: 48 / F ADM Date: 05/25/24 Loc: HO.MAMMO Attending Dr: Ryan Prescott MD Ordering Physician: Ryan Prescott MD Results: 2Ben ign Findings Date of Service: 05/25/24 Follow Up: 1 Year From Orig inal Mammogram Procedure(s): MM tomosynthesis diagnostic BI Accession Number(s): [id number] cc: Braulio Carbajal MD; Ryan Prescott MD [...] Rueda MD 05/25/2024 04:09 PM EDT RP Workstation: [facility] Dictated By: Lorenzo Rueda MD Signed By: <Electronically signed by Lorenzo Rueda MD in OV> 05/25/24 1609 DD/ 1300 TD/TT: 05/25/24 1350 Ncr Operator: Procedure Note Donotuseinterpreter, Image - 05/25/2024 [facility] [address] [place] [address] Mammography Report Signed Patient: Yana López#: [id number] : 1975Acct:[id number] Age/Sex: 48 / FADM Date: 05/25/24 Loc: HO.MAMMO Attending Dr: Ryan Prescott MD Ordering Physician: Ryan Prescottesults: 2Ben ign Findings Date of Service: 05/25/24Follow Up: 1 Year From Orig inal Mammogram Procedure(s): MM tomosynthesis diagnostic BI Accession Number(s): [id number] cc: Braulio Carbajal MD; Ryan Prescott MD [...] 05/25/24 1609 DD/ 1300 TD/TT: 05/25/24 1350 Ncr Operator: [facility] External Provider IMG BI PROCEDURES Edited Result - Final * Lipid Panel, Standard (01/01/2023 10:20 AM EDT) Triglycerides 73 mg/dL [facility] Comment:Desirable Triglyceri de: less than 150 mg/dLBorderline High Triglyceride 150-199 mg/dLHigh Triglyceride: 200-499 mg/dLVery High Triglyceride: greater than or equal to 5OO mg/dL Cholesterol 101 mg/dL [facility] Comment:Desirable Cholestero l: less than 200 mg/dLBorderline High Cholesterol: 200-239 mg/dLHigh Cholesterol: greater than 239 mg/dL LDL Cholesterol Calculated 53 mg/dl [facility] Comment:Desirable LDL: less than 100 mg/dLNear Optimal/Above Optimal LDL: 110- 129 mg/dLBorderline High LDL: 130-159 mg/dLHigh LDL: 160-189 mg/dLVery High LDL: greater than or equal to 190 mg/dL HDL Cholesterol 34 mg/dL [facility] Comment:Desirable HDL: great er than 40 mg/dL Note: This HDL assay may give artificially low results in patients with liver disease. 01/01/2023 10:2 0 AM EDT 01/01/2023 10:20 AM EDT [facility] External Provider LAB BLO OD ORDERABLES Final Result Performing Organization Address [facility]/ZIP Co de Phone Number [facility] [address] [place] [address] [phone] * HEPATITIS C AB W/REFL TO HCV RNA, QN, PCR (01/24/2022 8:19 AM EDT) HEPATITIS C ANTIBODY NON-REACT SÁNCHEZ NON-REACT SÁNCHEZ [facility] INDEX 0.02 <1.00 [facility] Comment: HCV antibody was non-reactive. There is no laboratory evidence of HCV infection. In most cases, no further action is required. However, if recent HCV exposure is suspected, a test for HCV RNA (test code 96535) is suggested. For additional information please refer to http://education.Debitos.Polybiotics/faq/AUB61i8 (This link is being provided for informational/ educational purposes only.) 01/24/2022 8:19 AM EDT Braulio Campbell MD HISTORICAL/NON ORD ERABLE LABS Final Result [facility] [address] * HIV 1/2 ANTIGEN/ANTIBODY,FOURTH GENERATION [...] purpose. For additional information please refer to http://education.SocialSci/faq/UJO507 (This link is being provided for informational/ educational purposes only.) The performance of this assay has not been clinically validated in patients less than 2 years old. 01/24/2022 8:19 AM EDT Braulio Campbell MD LAB BLOOD ORDERABL ES Final Result [facility] [address] from Last 3 Months or Most Recently Relevant to Health Maintenance Insurance GENERIC COMMERCIAL MD [place] [id number]
--- OUTSIDE RECORDS SUMMARY | 2025-07-06 09:30 | XMS_ITS | Data Portability ---
Author Organization [place] - [facility],, ADRIANA LARA MD Address [address] [address] Assessment No assessment recorded. Plan of Treatment Reminders Order Date Submit Date Provider Last Modified By Organization Details Last Modified Time Details Appointments None recorded. Lab pap test, thinprep, cervical 2021 022 [email or web address] [facility], Cytopathology Service, [address] [place] [address], [address], 2 07:36:24 fecal occult blood, stool 2021 022 [email or web address] In-Office Order, Internal Use Only DO Not Attach Compendium DO Not Attach Compendium, Do Not Delete/merge, [id number] 2 11:34:07 pap test, thinprep, cervical 2020 021 [email or web address] [facility], Cytopathology Service, [address] [place] [address], [address], 1 07:14:16 fecal occult blood, stool 2020 021 [email or web address] 1 In-Office Order, Internal Use Only DO Not Attach Compendium DO Not Attach Compendium, Do Not Delete/merge, [id number] 13:58:54 pap test, thinprep, cervical 2019 020 [email or web address] [facility], Cytopathology Service, [address] [place] [address], [address], 0 08:59:10 fecal occult blood, stool 2019 020 [email or web address] In-Office Order, Internal Use Only DO Not Attach Compendium DO Not Attach Compendium, Do Not Delete/merge, [id number] 0 08:59:10 pap test, thinprep, cervical 2018 019 [facility], Cytopathology Service, [address] [place] [address], [address], 9 04:32:23 fecal occult blood, stool 2018 019 [email or web address] In-Office Order, Internal Use Only DO Not Attach Compendium DO Not Attach Compendium, Do Not Delete/merge, [id number] 9 07:31:20 pap test, thinprep, cervical 2014 015 [facility], Cytopathology Service, [address] [place] [address], [address], 5 12:26:29 chlamydia sp, culture, unspecifi ed specimen 2014 015 [facility], Cytopathology Service, [address] [place] [address], [address], 5 08:24:20 NG DNA, PCR, genital 2014 015 [facility], Cytopathology Service, [address] [place] [address], [address], 5 08:24:20 test, urine 2014 015 [email or web address] 1 In-Office Order, Internal Use Only DO Not Attach Compendium DO Not Attach Compendium, Do Not Delete/merge, [id number] 5 11:43:08 Referral None recorded. Procedures None recorded. Surgeries None recorded. Imaging MAMMO, screening , digital, bilateral 2021 022 [facility] Orders, [address], [address], [place], [address], 4 07:16:34 MAMMO, screening , digital, bilateral 2020 021 [facility] Orders, [address], [address], [place], [address], 2 07:36:18 MAMMO, screening , digital, bilateral 2019 020 [facility] (Mammography), [address], [place], [address], 1 07:41:40 MAMMO, screening , digital, bilateral 2018 019 [facility] Orders, [address], [address], [place], [address], 0 07:25:26 Medication Orders None recorded. Patient TargetsNo targets recorded. Patient Instructions Encounter Date Encounter Id Patient Instructions Last Modified By Organization Details Last Modified Time 12/07/2014 [id number] She is here for annual exam. Her latest A1C was 10, in 06/18, the [facility] [place] referred her to endocrinology in 06/18, [...] irregular every 4 to 6 weeks, no [id number] no for 6 weeks, check u preg, [...] in detail. Not available 12/07/2014 11:43:09 09/01/2018 [id number] She is here for annual exam. She has not been here since 2014. She was seeing [facility] but they gave up on theat and put in a Mirena 2 years ago. No menses. Her diabetes has been Bad. In 07/2016 she started a process to do bariatric surgery at [facility]. She went through all the counseling [...] latest A1C was 10, in 06/18, the [facility] referred her to endocrinology in 06/18, [...] well. Advised to follow up with her financial counselor about her diabetes. She is going back [...] questions answered. Not available 09/01/2018 10:07:54 09/08/2019 [id number] She is here for annual exam, her weight is stable at 367 pounds. Her was in the ICU for 4 weeks due to sepsis, he is better now though. She had a Mirena placed 3 years ago, no menses. note form 2019: She is here for annual exam. She has not been here since 2014. She was seeing [facility] but they gave up on theat and put in a Mirena 2 years ago. No menses. Her diabetes has been Bad. In 07/2016 she started a process to do bariatric surgery at [facility]. She went through all the counseling [...] get the date of IUD insertion at [facility] for us so that we know when [...] detail. rebecca Not available 09/08/2019 15:23:23 04/04/2021 [id number] learning about healthy weight rebecca Not available 04/04/2021 13:58:54 She is here for annual exam, weight is 391 pounds, BMI is 58.6. She had a Mirena inserted 08/2016. No menses. Her mother earlier this year due to natural causes, in [place], she is still grieving. She and her are , she wanted to go to couples counseling but he would only go in [place] and they could not find a [place] speaking counselor. Note from 2019: She is [...] a process to do bariatric surgery at [facility]. She went through all the counseling ,etc, but things fell through the cracks. She is considering going back again. she had weighted more than 400 pounds last year, she lost some weight this past year with diet and exercise but still weighs 366 pounds today. She appears to be doing well. She and I discussed having her go back to [facility] to get back into their weight [...] breast. [email or web address] Not available 04/04/2021 14:00:20 04/17/2022 [id number] learning about healthy weight [email or web address] Not available [...] this year due to natural causes, in [place], she is still grieving. She and her are , she wanted to go to couples counseling but he would only go in [place] and they could not find a [place] speaking counselor. She appears to be doing [...] DO Not Attach Compendium, Do Not Delete/merge, [id number] 04/04/2021 13:36:07 09/08/19 20 09/08/2019 fecal occul t blood , stool Occult Blood negati ve Not Available In-Office Order Internal Use Only DO Not Attach Compendium DO Not Attach Compendium, Do Not Delete/merge, [id number] 09/08/2019 15:00:26 09/01/19 19 09/01/2018 fecal occul t blood , stool Occult Blood negati ve Not Available In-Office Order Internal Use Only DO Not Attach Compendium DO Not Attach Compendium, Do Not Delete/merge, [id number] 09/01/2018 09:30:38 12/08/19 15 12/07/2014 pregn marshal test, urine HCG negati ve Not Available In-Office Order Internal Use Only DO Not Attach Compendium DO Not Attach Compendium, Do Not Delete/merge, [id number] 12/07/2014 10:52:47 12/08/19 15 12/07/2014 gener [email or web address] se [email or web address] RESUL TS OF GEN-P ROBE APTIM A COMBO 2 ASSAY Chlam ydia: NEGAT SÁNCHEZ N. gonor rhoea e: NEGAT SÁNCHEZ GENA Camden RIOS M.D., Patho logis t (Case elect martin sy chuy d 12 09 2014) CLINI JOSE INFOR MATIO N: LPS NEG SOURC E: ThinP rep Pap for CT/GC Gross Descr iptio n: ThinP rep Vial Recei joanne. Physi JAYSON Russ N /#[phone]/2 [id number] [phone] Cytop athol ogy servi carlos provi ded by [facility] at the above addre ss. Not Available [facility], Cytopathology Service [address] [place], [address], 12/09/2014 15:06:31 12/08/19 15 12/07/2014 pap, LB [email or web address] ThinP rep Pap, Image d: NEGAT SÁNCHEZ [...] at the above addre ss. Not Available [facility], Cytopathology Service [address] [place] [address], [address], 12/14/2014 12:26:29 09/01/19 19 09/01/2018 pap, LB [email or web address] ThinP rep Pap, Image d: NEGAT SÁNCHEZ [...] . LPS 5 NEG, Z12.4 Not Available [facility], Cytopathology Service [address] [place] [address], [address], 09/02/2018 17:26:28 09/08/19 20 09/08/2019 pap, LB [email or web address] ThinP rep Pap, Image d: NEGAT SÁNCHEZ [...] . LPS NEG [Z12. 4] Not Available [facility], Cytopathology Service [address] [place], [address], 09/10/2019 13:06:44 04/04/20 21 04/04/2021 PAP1C ASE [email or web address] ThinP rep Pap, Image d: NEGAT SÁNCHEZ [...] LPS 0 NEG [Z12. 4] Not Available [facility], Cytopathology Service [address] [place] [address], [address], 04/12/2021 13:55:52 04/17/2004/17/2022 PAP1C ASE [email or web address] ThinP rep Pap, Image d: NEGAT SÁNCHEZ [...] IUD, LPS neg. [z01. 419] Not Available [facility], Cytopathology Service [address] [place] [address], [address], 04/23/2022 08:11:00 04/17/20 22 04/17/2022 fecal occul t blood , stool Occult Blood negati ve Not Available In-Office Order Internal Use Only DO Not Attach Compendium DO Not Attach Compendium, Do Not Delete/merge, [id number] 04/17/2022 10:29:09 Result Notes None recorded. Problems Name Problem SNOMED Code Status Onset Date Resolution Date Notes Provider Name and Address Organization Details Recorded Time Candidal vulvovaginiti s 60479150 Active Not Available [facility] 3 03:01:06 Irritable bowel syndrome 87208101 Active Not Available [facility] 3 03:01:06 Obesity 671206175 Active Not Available [facility] 3 03:01:06 Oligoovulator y dysfunctional uterine bleeding 763310444 Active Adriana Lara MD [address], [place], [address] , [place] - [facility], 5 11:43:08 Uncontrolled type 2 diabetes mellitus 813625058 Active Not Available [facility] 3 03:01:06 Primary female infertility 0034587 Active Not Available [facility] 3 03:01:06 Pruritus of vulva 59461890 Active Not Available [facility] 3 03:01:06 Pain in pelvis 38477139 Active Adriana Lara MD [address], [place], [address] , [place] - [facility], 4 15:07:42 Glycosuria 68963270 Active Adriana Lara MD [address], [place], [address] , [place] - [facility], 4 15:07:42 Problem Notes None recorded. Procedures Surgical History Date Name Laterality Status Provider Name and Address Organization Details Recorded Time 04/05/20 20 Most Recent Mammogram completed Yashira Alonso [place] - [facility], 04/17/2022 10:36:13 08/05/19 00 Cholecystectomy completed Taryn Beasley [place] - [facility], 11/10/2012 13:22:27 Imaging Results None recorded. Procedure Notes None recorded. Medical Equipment None Reported. Allergies Allergen ID Allergen Name Allergen Category Reaction Reaction Severity Criticality Documentation Date Start Date Code Code System Note Provider Name and Address Organization Details Recorded Time [address] [facility] environms nt,medica tion rash Not available Not available 09/08/2019 81703 RxNorm Yashira Celeste [place] [facility], 0 14:53:01 7561 Product containin g penicilli n (product) medicatio n rash Not available Not available 11/10/2012 94132 8001 SNOMED Taryn Beasley [place] - [...] Available Not Available No t Available triamcinol on oin 0.1% active Not Available Not Available Not Available losartan/h ct tab 100-12.5 active Not Available Not Available Not Available methylphen id tab 36mg er active Not Available Not Available Not Available lorazepam tab 1mg 09/01 completed Not Available Not Available Not Available tramadol hcl tab 50mg active Not Available Not Available Not Available fluconazol e tab 150mg active Not Available Not Available Not Available freestyle mis lite 09/01 completed Not Available Not Available Not Available dexmethylp h tab 10mg active Not Available Not Available N ot Available lantus inj 100/ml 09/01 completed Not Available Not Available Not Available omeprazole [...] henidate ER 40 mg capsule,ex tended release [id number] -50 TAKE 1 CAPSULE BY MOUTH EVERY [...] N ot Available FreeStyle Alexei 14 Day Celeste FOR TESTING GLUCOSE LEVELS active Not Available [...] 09/01/2018 175.26 cm 95 /min 54.2 kg/m2 707047.6 8 g 122/65 mm[Hg] Taryn Beasley [place] - [facility], 09/01/2018 09:12:36 Date Recorded Body weight Body mass index (BMI) Body height Heart rate Systolic And Diastolic Provider Name and Address Organization Details Last Updated DateTime 09/08/2019 351830.1 2 g 55 kg/m2 173.99 cm 110 /min 132/77 mm[Hg] Yashira Orozco in [facility], 09/08/2019 14:53:44 Date Recorded Body weight Heart rate Body mass index (BMI) Body height Systolic And Diastolic Provider Name and Address Organization Details Last Updated DateTime 12/07/2014 879933.1 769 g 103 /min 54.6 kg/m2 175.26 cm 119/71 mm[Hg] Yashira Orozco in [facility], 12/07/2014 10:17:20 Date Recorded Body height Body temperature Body mass index (BMI) Body weight Heart rate Systolic And Diastolic Provider Name and Address Organization Details Last Updated DateTime 1 173.99 cm 97.2 [degF] 58.6 kg/m2 931855. 34 g 104 /min 141/75 mm[Hg] Yashira Orozco in [facility], 1 13:34:29 Date Recorded Body weight Body mass index (BMI) Body height Body temperature Heart rate Systolic And Diastolic Provider Name and Address Organization Details Last Updated DateTime 2 202327. 19 g 54.3 kg/m2 172.72 cm 98.1 [degF] 93 /min 142/79 mm[Hg] Yashira Orozco in [facility], 2 10:33:37 Social History Question Answer Notes LastModified by Organizat ion Details LastModified Time Tobacco Smoking Status Never Smoker Not Available [facility] 06/07/2020 03:19:40 What Is Your Level Of Caffeine Consumption? Occasional [id number] Information not available 06/07/2020 In The 14 [...] Type Of Diet Are You Following? REGULAR [id number] Information not available 06/07/2020 Which Illicit Or Recreational Drugs Have You Used? None [id number] Information not available 06/07/2020 Do You Reside In Or Have You Traveled To An Area Where Ebola Virus Transmission Is Active? No [id number] Information not available 06/07/2020 Education Post Graduate Information not available 11/10/2012 What Is The Highest Grade Or Level Of School You Have Completed Or The Highest Degree You Have Received? [id number] Information not available 04/04/2021 Who Is Your [...] Female Information not available 09/01/2018 Marital Status [email or web address] Informat[employer] n not available 11/10/2012 What Was The Date Of Your Most Recent Tobacco Screening? 04/04/2021 Information not available 04/04/2021 What Is Your Relationship Status? Information not available 04/04/2021 Are You Sexually Active? Yes [id number] Information not available 06/07/2020 How Much Tobacco Do You Smoke? No [id number] Information not available 06/07/2020 General Stress Level [...] is your level of alcohol consumption? None [id number] Information not available 06/07/2020 Do you or have you ever used smokeless tobacco? Never used smokeless tobacco [id number] Information not available 06/07/2020 Are you currently employed? 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 Never used electronic cigarettes [id number] Information not available 06/07/2020 What is your exercise level? None [id number] Information not available 06/07/2020 Mental Status Question Answer Note LastModified by Organization D etails LastModified Time Do you feel stressed (tense, restless, nervous, or anxious, or unable to sleep at night)? [id number] Information not available 04/04/2021 Family History Relationship [...] MD [address], [place], [address], [place] Orozco in [facility], 11/10/2012 13:43:51 Tdap 3 completed [place] Sexton in [facility], 12/11/2012 [...] ICD10 Code Diagnosis IMO Codes Diagnosis Note [id number] MD ADRIANA Dickson MD [address] [place] [address] 11/10/2012 12:51:19 11/11/2012 08:37:47 [id number] MD ADRIANA Dickson MD [address] [place] [address] 12/11/2012 15:08:24 12/12/2012 16:10:03 [id number] MD ADRIANA Dickson MD [address] [place] [address] 08/21/2013 13:33:26 08/21/2013 15:51:36 Pain in pelvis 35292356 Acute lowe r urinary tract infection 631116637 Glycosuria 01108443 [id number] MD ADRIANA Dickson MD [address] [place] [address],[place] [address] 11/13/2013 09:28:08 11/13/2013 13:10:39 Specialized medical examination 17195318 [id number] MD ADRIANA Dickson MD [address] [place] [address],[place] [address] 12/07/2014 10:02:59 12/07/2014 13:34:46 Specialized medical examination 81902647 Venereal d isease screening 168494262 Oligoovula tory dysfunctional uterine bleeding 316338965 [id number] MD ADRIANA Dickson MD [address] [place] [address],[place] [address] 09/01/2018 09:04:26 09/01/2018 12:06:59 Specialized medical examination 66946437 Z01.419 Screening for malignant neoplasm of rectum 401815465 Z12.12 Screening mammography 24 712255 Z12.31 [id number] MD ADRIANA Dickson MD [address] [place] [address],[place] [address] 09/08/2019 14:46:50 09/08/2019 15:34:18 Specialized medical examination 18342859 Z01.419 Screening for malignant neoplasm of rectum 444241560 Z12.12 Screening mammography 24 837294 Z12.31 [id number] MD ADRIANA Dickson MD [address] [place] [address],[place] [address] 04/04/2021 13:29:45 04/04/2021 14:48:20 Specialized medical examination 07318413 Z01.419 Screening for malignant neoplasm of rectum 450079489 Z12.12 Screening mammography 24 985850 Z12.31 [id number] MD ADRIANA Dickson MD [address] [place] [address],[place] [address] 04/17/2022 10:28:03 04/17/2022 11:34:15 Specialized medical examination 42787642 Z01.419 Screening for malignant neoplasm of rectum 689385485 Z12.12 Screening mammography 24 286328 Z12.31 Health Concerns Section Related Observation LastModified by Organization Detai ls LastModified Time None Recorded Concern Status LastModified by Organization Details LastModified Time None Recorded Advance Directives Directive None Recorded Payers Insurance Date Sequence Insurance Name Policy Number Policy Fountain Covered Member ID Fountain Member ID Guarantor Name 09/03/2019 1 [facility] [id number] Glorymar López [id number] Glorymar López Colon 09/03/2019 1 [facility] CHO[facility] [id number] Glorymar López [id number] Glorymar López Colon 09/03/2019 1 [facility] - CHO[facility] (O) [id number] Glorymar López [id number] Glorymar López Colon 04/14/2022 1 [facility] [id number] Glorymar López [id number] Glorymar López Colon 09/03/2019 1 [facility] [id number] Glory López [id number] Glorymar López Colon 02/14/2023 2 [employer] [id number] Glorymar López Colon [id number] Glorymar López Colon Notes Date Note Type Note Provider Name and Address Organization Details Recorded Time 12/07/2014 text/html ROS as noted in the HPI Adriana Lara MD [address] [facility],[address], [place], [address], [place] - [facility], 12/07/2014 11:43:24 09/01/2018 text/html She is here for annual exam. She has not been here since 2014. She was seeing [facility] infertility but they gave up on theat and put in a Mirena 2 years ago. No menses. Her diabetes has been Bad. In 07/2016 she started a process to do bariatric surgery at [facility]. She went through all the counseling [...] latest A1C was 10, in 06/18, the [facility] referred her to endocrinology in 06/18, she was given instructions for rescue insulin doses when her sugars are high, she is doing that now, she had an A1C drawn on 11/25/14 but has not received the results yet. Adriana Lara MD [address], [place], [address], [place] - [facility], [...] been here since 2014. She was seeing [facility] but they gave up on theat and put in a Mirena 2 years ago. No menses. Her diabetes has been Bad. In 07/2016 she started a process to do bariatric surgery at [facility]. She went through all the counseling ,etc, but things fell through the cracks. She is considering going back again. she had weighted more than 400 pounds last year, she lost some weight this past year with diet and exercise but still weighs 366 pounds today. Adriana Lara MD [address], [place], [address], [place] - [facility], 09/08/2019 15:23:49 04/04/2021 text/html She is here for annual exam, weight is 391 pounds, BMI is 58.6. She had a Mirena inserted 08/2016. No menses. Her mother earlier this year due to natural causes, in [place], she is still grieving. She and her are , she wanted to go to couples counseling but he would only go in [place] and they could not find a [place] speaking counselor. Note from 2019: She is [...] a process to do bariatric surgery at [facility]. She went through all the counseling ,etc, but things fell through the cracks. She is considering going back again. she had weighted more than 400 pounds last year, she lost some weight this past year with diet and exercise but still weighs 366 pounds today. Adriana Lara MD [address], [place], [address], [employer] - [facility], 04/04/2021 14:00:40 04/17/2022 text/html Her weight is [...] this year due to natural causes, in [place], she is still grieving.She and her are , she wanted to go to couples counseling but he would only go in [place] and they could not find a [place] speaking counselor. Adriana Lara MD [address], [place], [address], [place] - [facility], 04/17/2022 11:00:04 OBGyn Episode No OBEpisode recorded.
--- OUTSIDE RECORDS SUMMARY | 2025-07-06 09:30 | XMS_ITS | Encounter Summary ---
Author Organization [employer] Address [address] [facility] [address] [place] [address] Care Team Providers Care Physiognomist Name Role Phone Unavailable Primary Care Provider Unavailabl e Reason for Visit * Reason Comments Med Refill Encounter Details Date Type Department Care Team ([facility] st Contact Info) Description 10/19/2024 Refill [facility] [address] [place] [address] Braulio Carbajal MD [address] [place] [address] Social History Tobacco Use Types Packs/Day Years [...]
--- OUTSIDE RECORDS SUMMARY | 2025-07-06 09:30 | XMS_ITS | Encounter Summary ---
Author Organization [facility] Address [address] [place], [place] [id number] Care Team Providers Care Liquid Floor And Wall Applier Name Role Phone Nicole Padron MD Primary Care Provider [phone] Reason for Visit * Reason Comments Medical Record Encounter Details Date Type Department Care Team (Late Contact Info) Description 03/23/2025 Abstract [facility] [place] [address] Unknown, Abstract Provider Social History Tobacco Use [...] AM EDT CPE - Comprehensive Physical Exam [facility] [address] [place] [id number] Bc Buckley, MAXIMO [address] [place] [address] CPE documented as of this encounter Goals [...] on filedocumented in this encounter Care Teams Liquid Floor And Wall Applier Relationship Specialty Start Date End Date Nicole Padron MD [address] [facility] [place] [address] PCP - General Family Medicine 10/28/24 documented as of this encounter
--- OUTSIDE RECORDS SUMMARY | 2025-07-06 09:31 | XMS_ITS | Encounter Summary ---
Author Organization [employer] [facility] [employer] Address [address] [place] [id number] Care Team Providers Care Granulizing Machine Operator Name Role Phone Braulio Carbajal MD Primary Care Prov ider Reason for Visit * Reason Comments Med Refill Encounter Details Date Type Department Care Team (Late st Contact Info) Description 10/29/2022 Refill [facility] [address], [place] [phone] Braulio Carbajal MD [address] [place] [address] Social History Tobacco Use Types Packs/Day Years [...] on filedocumented in this encounter Care Teams Granulizing Machine Operator Relationship Specialty Start Date End Date Braulio Carbajal MD [address] [place] [address] PCP - General Internal Medicine 12/14/19 04/28/24 documented as of this encounter
--- OUTSIDE RECORDS SUMMARY | 2025-07-06 09:31 | XMS_ITS | Encounter Summary ---
Author Organization [employer] Address [address] [facility] [address] [place] [address] Care Team Providers Care Service Restorer Emergency Name Role Phone Braulio Carbajal MD Primary Care Prov ider Encounter Details Date Type Department Care Team (Late st Contact Info) Description 08/17/2022 Orders Only [facility] MEDICINE [address] [place] [phone] Braulio Carbajal MD [address] [place] [address] Type 2 diabetes mellitus without complication, unspecified whether ferry terminal agent insulin use ([facility]) (Primary Dx) Social History Tobacco [...] without complication, unspecified whether shelter insulin use (CMS/HCC) HEMATOXYLIN AND EOSIN STAIN Routine 01/09/2023 8:38 AM EDT Type 2 diabetes mellitus without complication, unspecified whether shelter insulin use (CMS/HCC) COVID-19 ID NOW (DUPREE) Routine 01/08/2023 2:18 PM EDT Type 2 diabetes mellitus without complication, unspecified whether shelter insulin use (CMS/HCC) TYPE AND SCREEN Routine 01/01/2023 10:22 AM EDT Type 2 diabetes mellitus without complication, unspecified whether shelter insulin use (CMS/HCC) VITAMIN D,25-OH,TOTAL,IA Routine 01/01/2023 10:20 AM EDT Type 2 diabetes mellitus without complication, unspecified whether shelter insulin use (CMS/HCC) TSH W/REFLEX TO FT4 Routine 01/01/2023 1 0:20 AM EDT Type 2 diabetes mellitus without complication, unspecified whether shelter insulin use (CMS/HCC) CBC WITH AUTO DIFFERENTIAL Routine 01/01/2023 10:20 AM EDT Type 2 diabetes mellitus without complication, unspecified whether shelter insulin use (CMS/HCC) ZINC Routine 01/01/2023 10:20 AM EDT Type 2 diabetes mellitus without complication, unspecified whether shelter insulin use (CMS/HCC) VITAMIN A Routine 01/01/2023 10:20 AM EDT Type 2 diabetes mellitus without complication, unspecified whether shelter insulin use (CMS/HCC) APTT Routine 01/01/2023 10:20 AM EDT Type 2 diabetes mellitus without complication, unspecified whether shelter insulin use (CMS/HCC) PROTHROMBIN TIME-INR Routine 01/01/2023 10:20 AM EDT Type 2 diabetes mellitus without complication, unspecified whether shelter insulin use (CMS/HCC) C-REACTIVE PROTEIN Routine 01/01/2023 10 :20 AM EDT Type 2 diabetes mellitus without complication, unspecified whether ferry terminal agent insulin use (CMS/HCC) VITAMIN B1 Routine 01/01/2023 10:20 AM EDT Type 2 diabetes mellitus without complication, unspecified whether shelter insulin use (CMS/HCC) PTH, INTACT WITHOUT CALCIUM Routine 01/01/2023 10:20 AM EDT Type 2 diabetes mellitus without complication, unspecified whether shelter insulin use (CMS/HCC) HEMOGLOBIN A1C Routine 01/01/2023 10:20 AM EDT Type 2 diabetes mellitus without complication, unspecified whether ferry terminal agent insulin use (CMS/HCC) FERRITIN Routine 01/01/2023 10:20 AM EDT Type 2 diabetes mellitus without complication, unspecified whether ferry terminal agent insulin use (CMS/HCC) VITAMIN B12 Routine 01/01/2023 10:20 AM EDT Type 2 diabetes mellitus without complication, unspecified whether shelter insulin use (CMS/HCC) LIPID PANEL, STANDARD Routine 01/01/2023 10:20 AM EDT Type 2 diabetes mellitus without complication, unspecified whether ferry terminal agent insulin use (CMS/HCC) COMPREHENSIVE METABOLIC PANEL Routine 01/01/2023 10:20 AM EDT Type 2 diabetes mellitus without complication, unspecified whether ferry terminal agent insulin use (CMS/HCC) GLUCOSE, WHOLE BLOOD Routine 11/13/2022 1:31 PM EDT Type 2 diabetes mellitus without complication, unspecified whether ferry terminal agent insulin use (CMS/HCC) HEMOGLOBIN A1C Routine 11/13/2022 1:14 PM EDT Type 2 diabetes mellitus without complication, unspecified whether ferry terminal agent insulin use (CMS/HCC) documented in this encounter Results * CA 19-9 (01/09/2023 10:38 AM EDT) CA 19-9 14 <34 U/mL [facility] Comment:The CA19-9 result ma y be increased on average 14% - 20%,relative to results previously obtained with this methoddue to a recent calibrator adjustment made in Octobery the reagent e business project manager. In the low range for thisassay [...] or absence of disease.THIS TEST WAS PERFORMED AT:[id number] [place] [id number] LONDONO MD 01/09/2023 10:3 8 AM EDT 01/09/2023 10:42 AM EDT [facility] External Provider LAB BLO OD ORDERABLES Final Result [facility] [address] [place] [phone] * Hematoxylin and Eosin Stain (01/09/2023 8:38 AM EDT) 01/09/2023 8:38 AM EDT 01/09/2023 8:53 AM EDT Narrative [facility] - 01/14/2023 1:28 PM EDT ----- ------- Name: Julia López Age/Sex: 47/F : 1975 [facility]#: [id number] Unit#: [id number] Attend Dr: Darci Sanders MD Re01/09/23 Status: [facility] Location: [facility] Disch: ----- ------- SPEC : [id number] RECD: 01/09/23 STATUS: HERMINIO CROCKER NUM: [id number] PUSHPA: 01/09/23 [facility] DR: Darci Sanders MD ENTERED: 01/09/23 SP [...] Julia López Age/Sex: 47/F : 1975 Unit#: [id number] Attend Dr: Darci Sanders MD Re01/09/23 Status: [facility] Location: [facility] Disch: ----- ------- SPEC : [id number] RECD: 01/09/23 STATUS: HERMINIO OBI NUM: [id number] PUSHPA: 01/09/23 [facility] DR: Darci Sanders MD ENTERED: 01/09/23 SP [...] on B2. Copies To: Braulio Carbajal MD [address] [place] [phone] Darci Sanders MD [address] [place] [address], 3rd [place] [address] ----- ------- Signed (signature on file) Shaun Lebron MD 01/14/23 1328 ----- ------- END OF REPORT [facility] External Provider LAB BLO OD ORDERABLES Final Result [facility] [address] [place] [address] [phone] * COVID-19 ID NOW (Xcalia) (01/08/2023 2:18 PM EDT) IDNOW SERIAL# [id number] [facility] COVID-19 TEST Negative Negative [facility] COVID-19 NOTE See Note [facility] Comment: Results are for the identification of SARS-CoV2 RNA. TheSARS-CoV2 RNA is generally detectable in respiratory samplesduring the acute phase of infection. Positive results areindicative of the presence of SARS-CoV-2 RNA; clinicalcorrelation with patient history and other diagnosticinformation is necessary to determine patient infectionstatus. Positive results do not rule out bacterial infectionor co- infection with other viruses.Testing facilities within the [facility] and [facility] are required to report all [...] use by authorized laboratories.Testing performed on the 100Plus ID NOW utilizing NAAT. 01/08/2023 2:18 PM EDT 01/08/2023 2:32 PM EDT [facility] Exter nal Provider LAB MOLECULAR DIAGNOSTICS ORDERABLES Final Result Performing Organization Address City/[facility] de Phone Number [facility] [address] [place] [phone] [phone] * Type and screen (01/01/2023 10:22 AM EDT) Pathologist [facility] Blood Type OP [facility] Antibody Screen NEGATIVE [facility] 01/01/2023 10:2 2 AM EDT 01/01/2023 11:04 AM EDT Narrative [facility] - 01/01/2023 11:55 AM EDT Spec expiration changed by JAMESON on 01/01/23Reason: For SURGERYNURSING:Call Blood Bank (ext. [phone]) to band patient on admission.Type and Screen in effect until 2300 on 01/09/23Witnessed by EDELMIRA us [facility] External Provider LAB BLO OD BANK TEST ORDERABLES Final Result Performing Organization Address [facility] de Phone Number [facility] [address] [place] [phone] [phone] * (ABNORMAL) Vitamin A (01/01/2023 10:20 AM EDT) Pathologist [facility] Vitamin A (Retinol) 32(A) 38 - 98 mcg/dL [facility] Comment:Vitamin supplementat ion within 24 hours prior toblood draw may affect the accuracy of the results.This test was developed and its analytical performancecharacteristics have been determined by [employer] [place], [place]. It hasnot been cleared or approved by the U.S. Food and DrugAdministration. This assay has been validated pursuantto the CLIA regulations and is used for clinicalpurposes.THIS TEST WAS PERFORMED AT:[employer]/[facility] [place] [address]EHMBXVDNICOLA BARRY MD,PHD 01/01/2023 10:2 0 AM EDT 01/01/2023 10:20 AM EDT [facility] External Provider LAB BLO OD ORDERABLES Final Result Performing Organization Address [facility] [[email or web address]] Co de Phone Number [facility] [address] [place] [phone] * (ABNORMAL) Vitamin B1 (01/01/2023 10:20 AM EDT) Vitamin B1 <6(A) 8 - 30 nmol/L [facility] Comment:Vitamin supplementat ion within 24 hours prior toblood draw may affect the accuracy of the results.This test was developed and its analytical performancecharacteristics have been determined by [place]. It hasnot been cleared or approved by the .S. Food and DrugAdministration. This assay has been validated pursuantto the CLIA regulations and is used for clinicalpurposes.THIS TEST WAS PERFORMED AT:[email or web address] [address] [address]IAUTQMZNICOLA BARRY MD,PHD 01/01/2023 10:2 0 AM EDT 01/01/2023 10:20 AM EDT [facility] External Provider LAB BLO OD ORDERABLES Final Result Performing Organization Address [facility] de Phone Number [facility] [address] [place] [phone] * Zinc (01/01/2023 10:20 AM EDT) Zinc 84 60 - 130 mcg/dL [facility] Comment:This test was develo ped and its analytical performancecharacteristics have been determined by [place]. It hasnot been cleared or approved by the U.S. Food and DrugAdministration. This assay has been validated pursuantto the CLIA regulations and is used for clinicalpurposes.THIS TEST WAS PERFORMED AT:[id number] [place] [address]WTPREWWNICOLA BARRY MD,PHD 01/01/2023 10:2 0 AM EDT 01/01/2023 10:20 AM EDT [facility] External Provider LAB BLO OD ORDERABLES Final Result Performing Organization Address [facility] [[email or web address]] Co de Phone Number [facility] [address] [place] [address] [phone] * PTH, Intact Without Calcium (01/01/2023 10:20 AM EDT) PTHI 32 16 - 77 pg/mL [facility] Comment:Interpretive Guide I ntact PTH Calcium -------Normal Parathyroid Normal NormalHypoparathyroidism Low or Low Normal LowHyperparathyroidism Primary Normal or High High Secondary High Normal or Low Tertiary High HighNon-Parathyroid Hypercalcemia Low or Low Normal High Calcium (PTHI) 9.9 8.6 - 10.2 mg/dL [facility] Comment:THIS TEST WAS PERFOR MED AT:[id number] [place] [id number] LONDONO MD 01/01/2023 10:2 0 AM EDT 01/01/2023 10:20 AM EDT [facility] External Provider LAB BLO OD ORDERABLES Final Result Performing Organization Address [facility] [[email or web address]] Co de Phone Number [facility] [address] [place] [address] [phone] * Lipid Panel, Standard (01/01/2023 10:20 AM EDT) Triglycerides 73 mg/dL [facility] Comment:Desirable Triglyceri de: less than 150 mg/dLBorderline High Triglyceride 150-199 mg/dLHigh Triglyceride: 200-499 mg/dLVery High Triglyceride: greater than or equal to 5OO mg/dL Cholesterol 101 mg/dL [facility] Comment:Desirable Cholestero l: less than 200 mg/dLBorderline High Cholesterol: 200-239 mg/dLHigh Cholesterol: greater than 239 mg/dL LDL Cholesterol Calculated 53 mg/dl [facility] Comment:Desirable LDL: less than 100 mg/dLNear Optimal/Above Optimal LDL: 110- 129 mg/dLBorderline High LDL: 130-159 mg/dLHigh LDL: 160-189 mg/dLVery High LDL: greater than or equal to 190 mg/dL HDL Cholesterol 34 mg/dL [facility] Comment:Desirable HDL: great er than 40 mg/dL Note: This HDL assay may give artificially low results in patients with liver disease. 01/01/2023 10:2 0 AM EDT 01/01/2023 10:20 AM EDT [facility] External Provider LAB BLO OD ORDERABLES Final Result Performing Organization Address City/[facility]/ZIP Co de Phone Number [facility] [address] [place] [phone] * (ABNORMAL) C-reactive Protein (01/01/2023 10:20 AM EDT) C Reactive Protein 2.54(H) < or = 0.50 mg/dL [facility] 01/01/2023 10:2 0 AM EDT 01/01/2023 10:20 AM EDT [facility] External Provider LAB BLO OD ORDERABLES Final Result Performing Organization Address City/[facility]/ZIP Co de Phone Number [facility] [address] [place] [phone] * (ABNORMAL) Comprehensive Metabolic Panel (01/01/2023 10:20 AM EDT) Sodium 136 135 - 145 mmol/L [facility] Potassium 4.7 3.3 - 5.1 mmol/L [facility] Chloride 99 96 - 108 mmol/L [facility] Carbon Dioxide 28 22 - 29 mmol/L [facility] Anion Gap 14 12 - 20 [facility] Urea Nitrogen (BUN) 13 9 - 16 mg/dL [facility] Creatinine, Serum 0.80 0.5 - 1.4 mg/dL [facility] Creatinine Clr Calc Pharmacy 134.3 [facility] Comment:Provided height and weight: 175.26 cm,142.882 kg.eGFR (calculated from the MDRD study equation) and eCrCl(calculated from the Cockcroft-Gault equation) are based ondifferent parameters and may not yield comparable results.If eCrCl result is absurd, please check patient'sheight/weight. Estimated Glomerular Filt Rate >60 [facility] Comment:NOTE: For -Am erican individuals, multiply the result by 1.210.Chronic Kidney Disease: Estimated GFR < 60 mL/min/1.45q2Whwoyi Kidney Disease: Estimated GFR < 15 mL/min/1.73m2 Glucose 141(H) 60 - 115 mg/dL [facility] Calcium 10.0 8.4 - 10.2 mg/dL [facility] Bilirubin, Total 0.9 0.0 - 1.0 mg/dL [facility] Aspartate Amino Transferase 18 5 - 31 U/L [facility] Alanine Aminotransferase 14 0 - 31 U/L [facility] Total Protein 7.9 6.5 - 8.0 g/dL [facility] Albumin Level 4.0 3.5 - 5.0 g/dL [facility] Alkaline Phosphatase 85 39 - 117 U/L [facility] 01/01/2023 10:2 0 AM EDT 01/01/2023 10:20 AM EDT us [facility] External Provider LAB BLO OD ORDERABLES Final Result [facility] [address] [place] [phone] * TSH W/Reflex to FT4 (01/01/2023 10:20 AM EDT) TSH reflex Free T4 1.39 0.32 - 4.0 uIU/mL [facility] 01/01/2023 10:2 0 AM EDT 01/01/2023 10:20 AM EDT [facility] External Provider LAB BLO OD ORDERABLES Final Result Performing Organization Address City/[facility]/ZIP Co de Phone Number [facility] [address] [place] [phone] * Vitamin D, 25-Hydroxy, Total, Immunoassay (01/01/2023 10:20 AM EDT) Vitamin D 25-OH Total 23.8 >30 ng/mL [facility] Comment:Health Based Referen ce Values*< 20 ng/mL Ooocpvnxj47-90 ng/mL Insufficient> 30 ng/mL Sufficient*Nay HASTINGS. N [...] 0 AM EDT 01/01/2023 10:20 AM EDT [facility] External Provider LAB BLO OD ORDERABLES Final Result Performing Organization Address [facility] [[email or web address]] Co de Phone Number [facility] [address] [place] [phone] * Vitamin B12 (01/01/2023 10:20 AM EDT) Vitamin B12 505 200 - 900 pg/mL [facility] Comment:NORMAL 200-900 PG/ML INDETERMINATE 160-199 PG/ML DEFICIENT < 160 PG/ML 01/01/2023 10:2 0 AM EDT 01/01/2023 10:20 AM EDT [facility] External Provider LAB BLO OD ORDERABLES Final Result Performing Organization Address [facility] [[email or web address]] Co de Phone Number [facility] [address] [place] [phone] * Ferritin (01/01/2023 10:20 AM EDT) Ferritin 192 10 - 250 ng/mL [facility] 01/01/2023 10:2 0 AM EDT 01/01/2023 10:20 AM EDT [facility] External Provider LAB BLO OD ORDERABLES Final Result Performing Organization Address [facility] de Phone Number [facility] [address] [place] [phone] * Hemoglobin A1c (01/01/2023 10:20 AM EDT) Hemoglobin A1c 6.8 % [facility] Comment:Hemoglobin A1C Refer ence Range Adults: 4.8 - 6.0 % Non diabetic: < 6.0 % Goal: < 7.0 %Additional Action Suggested: > 8.0 %Note: Hemoglobin A1c results are invalid for patients with abnormal amounts of HbF. Blood transfusions may impact the HbA1c concentration in the patient sample. Estimated Average Glucose 148 mg/dL [facility] Comment:eAG = Estimated ave rage glucose which is %A1C expressed asaverage glucose, using the formula of the B5V-KqweteyLplwvcz Glucose study (ADAG), Diabetes Care, Vol.31,#8,2007 01/01/2023 10:2 0 AM EDT 01/01/2023 10:20 AM EDT [facility] External Provider LAB BLO OD ORDERABLES Final Result Performing Organization Address [facility] de Phone Number [facility] [address] [place] [phone] * APTT (01/01/2023 10:20 AM EDT) Partial Thromboplastin Time 35.0 26.0 - 36.4 SEC [facility] 01/01/2023 10:2 0 AM EDT 01/01/2023 10:20 AM EDT [facility] External Provider LAB BLO OD ORDERABLES Final Result Performing Organization Address [facility] Phone Number [facility] [address] [place] [phone] * Prothrombin Time-INR (01/01/2023 10:20 AM EDT) [facility] Prothrombin Time 12.9 10.0 - 13.1 SEC [facility] INTERNATIONAL NORM RATIO 1.1 0.9 - 1.1 [facility] Comment:INTERNATIONAL NORMAL IZED RATIO (INR) [...] 0 AM EDT 01/01/2023 10:20 AM EDT [facility] External Provider LAB BLO OD ORDERABLES Final Result Performing Organization Address [facility] de Phone Number [facility] [address] [place] [phone] * (ABNORMAL) CBC auto differential (01/01/2023 10:20 AM EDT) White Blood Count 11.3(H) 4.8 - 10.8 X10*3/uL [facility] Red Blood Count 5.09 4.20 - 5.50 X10*6/uL [facility] Hemoglobin 13.8 12.0 - 16.0 g/dl [facility] Hematocrit 44.1 37.0 - 47.0 % [facility] Mean Corpuscular Volume 86.6 80.0 - 98.0 fL [facility] Mean Corpuscular Hemoglobin 27.1 27.0 - 33.0 pg [facility] Mean Corpuscular HGB Conc 31.3 31.0 - 35.0 g/dl [facility] Red Cell Distribution Width 14.3 11.0 - 16.0 % [facility] Platelet Count 376 160 - 400 X10*3/uL [facility] Mean Platelet Volume 9.2(L) 9.4 - 12.3 fL [facility] Neutrophils Percent Auto 66.0 45 - 73 % [facility] Imm Gran Pct Auto 0.8(H) 0.0 - 0.4 % [facility] Lymphocytes Percent Auto 25.1 20 - 40 % [facility] Monocytes Percent Auto 5.5 2 - 11 % [facility] Eosinophils Percent Auto 2.0 0 - 4 % [facility] Basophils Percent Auto 0.6 0 - 2 % [facility] NRBC Pct Auto 0.0 0.0 - 0.2 /100WBC [facility] Neutrophils Absolute Auto 7.4 2.0 - 8.3 x10*3/uL [facility] Imm Gran Abs Auto 0.09(H) 0.00 - 0.03 X10*3/uL [facility] Lymphocytes Absolute Auto 2.8 1.2 - 4.9 X10*3/uL [facility] Monocytes Absolute Auto 0.6 0.1 - 1.2 X10*3/uL [facility] Eosinophils Absolute Auto 0.2 0.0 - 0.4 X10*3/uL [facility] Basophils Absolute Auto 0.1 0.0 - 0.2 X10*3/uL [facility] NRBC Abs Auto 0.000 0.0 - 0.012 X10*3/uL [facility] 01/01/2023 10:2 0 AM EDT 01/01/2023 10:20 AM EDT [facility] External Provider LAB BLO OD ORDERABLES Final Result Performing Organization Address [facility] de Phone Number [facility] [address] [place] [phone] * (ABNORMAL) Glucose, Whole Blood (11/13/2022 1:31 PM EDT) Glucose, Whole Blood 196(H) 60 - 115 mg/dL [facility] Comment:METER #: [id number] 5Testing performed in the Endocrinology Department [address] , [address], [facility]. 11/13/2022 1:31 PM EDT 11/13/2022 1:34 PM EDT [facility] External Provider LAB BLO OD ORDERABLES Final Result Performing Organization Address [facility] de Phone Number [facility] [address] [place] [phone] * Hemoglobin A1c (11/13/2022 1:14 PM EDT) Hemoglobin A1c 7.4 % [facility] Comment:Hemoglobin A1C Refer ence Range Adults: 4.8 - 6.0 % Non diabetic: < 6.0 % Goal: < 7.0 %Additional Action Suggested: > 8.0 %Note: Hemoglobin A1c results are invalid for patients with abnormal amounts of HbF. Blood transfusions may impact the HbA1c concentration in the patient sample. Estimated Average Glucose 166 mg/dL [facility] Comment:eAG = Estimated ave rage glucose which is %A1C expressed asaverage glucose, using the formula of the E3V-QzrzesqJqmrhjb Glucose study (ADAG), Diabetes Care, Vol.31,#8,Mar. 2007 11/13/2022 1:14 PM EDT 11/13/2022 1:14 PM EDT us [facility] External Provider LAB BLO OD ORDERABLES Final Result [facility] [address] [place] [phone] documented in this encounter Visit Diagnoses Diagnosis Type 2 diabetes mellitus without complication, unspecified whether shelter insulin use- Primary documented in this encounter Care Teams Service Restorer Emergency Relationship Specialty Start Date End Date Braulio Carbajal MD [address] [place] [phone] PCP - General Internal Medicine 12/14/19 04/28/24 documented as of this encounter
--- OUTSIDE RECORDS SUMMARY | 2025-07-06 09:31 | XMS_ITS | Encounter Summary ---
Author Organization [employer] Address [address] [place] [phone] Care Team Providers Care Firebrick Layer Name Role Phone Braulio Carbajal MD Primary Care Prov ider Reason for Visit * Reason Comments Med Refill Encounter Details Date Type Department Care Team (Late st Contact Info) Description 10/29/2022 Refill [facility] [address], [place] [phone] Braulio Carbajal MD [address] [place] [phone] Social History Tobacco Use Types Packs/Day Years [...] on filedocumented in this encounter Care Teams Firebrick Layer Relationship Specialty Start Date End Date Braulio Carbajal MD [address] [place] [phone] PCP - General Internal Medicine 12/14/19 04/28/24 documented as of this encounter
--- OUTSIDE RECORDS SUMMARY | 2025-07-06 09:31 | XMS_ITS | Encounter Summary ---
Author Organization [employer] Address [address] [place] [address] Care Team Providers Care Nurse Practical Name Role Phone Braulio Carbajal MD Primary Care Prov ider Reason for Visit * Reason Onset Date Comments Med Refill 02/28/2023 Encounter Details Date Type Department Care Team (Late st Contact Info) Description 02/28/2023 Refill [facility] MED & PEDS [address] [place] [address] Braulio Carbajal MD [address] [place] [address] Social History Tobacco Use Types Packs/Day Years [...] on filedocumented in this encounter Care Teams Nurse Practical Relationship Specialty Start Date End Date Braulio Carbajal MD [address] [place] [address] PCP - General Internal Medicine 12/14/19 04/28/24 documented as of this encounter
--- OUTSIDE RECORDS SUMMARY | 2025-07-06 09:31 | XMS_ITS | Continuity of Care Document ---
Author Organization [facility] Address [address] [facility] [address] [place] [address] Phone [phone] Social History Type Date Description Comments Sex Female Sex Unknown Medical Devices Description No Information Available Encounters Description No Information Available Assessments Description No Information Available Plan of Treatment No Information Available Functional Status Description No Information Available Mental Status Description No Information Available Referrals Description No Information Available
--- OUTSIDE RECORDS SUMMARY | 2025-07-06 09:31 | XMS_ITS | Clinical Summary ---
Author Organization [facility] Address [address] [place] [address] Care Team Providers Care Cabinetmaker Helper Name Role Phone Braulio Lopez MD Primary Care Provider [phone] Allergies Active Allergy Reactions Criticality Noted Date [...] age to complete this topic Care Teams Cabinetmaker Helper Relationship Specialty Start Date End Date Braulio Lopez MD [address] [place] [phone] PCP - General Internal Medicine 03/20/22
--- OUTSIDE RECORDS SUMMARY | 2025-07-06 09:31 | XMS_ITS | Encounter Summary ---
Author Organization [employer] Address [address] [facility] 7 [place] [address] Care Team Providers Care Mental Health Social Worker Name Role Phone Braulio Carbajal MD Primary Care Prov ider Reason for Visit * Reason Onset Date Comments Med Refill 02/28/2023 Encounter Details Date Type Department Care Team (Late st Contact Info) Description 02/28/[address] [facility] [address] [place] [address] Braulio Carbajal MD [address] [place] [address] Mixed hyperlipidemia; Primary hypertension; Type 2 diabetes mellitus with diabetic polyneuropathy, with long-term current use of insulin ([facility]/HCC) Social History Tobacco Use Types Packs/Day [...] (HCC) documented in this encounter Care Teams Mental Health Social Worker Relationship Specialty Start Date End Date Braulio Carbajal MD [address] [place] [id number] PCP - General Internal Medicine 12/14/19 04/28/24 documented as of this encounter
== END 2025-07-06 10:13 | disposition home or self-care (01) ==
LOC: HO.HOP 09:06
PROVIDERS: PCP Family Medicine; Visit Provider Counselor Mental Health
DX: F90.2 Attention-deficit hyperactivity disorder, combined type (principal); F41.0 Panic disorder [episodic paroxysmal anxiety]; F32.A Depression, unspecified
CPT/HCPCS: 90837

== ENCOUNTER 2025-07-14 08:28 | Outpatient (REF) | payer OTHER, SELFPAY ==
--- NOTE | 2025-07-14 08:30 | EMG_ITS ---
Chief complaint: Chronic bilateral hand numbness EMG by Dr. Hardy 02/08/2022 showed bilateral Carpal Tunnel Syndrome and bilateral ulnar neuropathy at the elbow. Reason for referral: Evaluate for Carpal Tunnel Syndrome and ulnar neuropathy Referred by: Bc RAYGOZA Procedure done: Bilateral upper extremities NCS/EMG Precautions and/or limitations: None The limb temperature was monitored continuously and remained between 32-36 degrees C during the performance of the NCS. Ulnar motor NCS was performed with moderate elbow flexion between 70-90 degrees, with across-elbow distance of 10 cm. Nerve Conduction Studies Anti Sensory Summary Table ?Stim Site NR Onset (ms) Norm Onset (ms) Peak (ms) Norm Peak (ms) O-P Amp (?V) Norm O-P Amp Site1 Site2 Delta-0 (ms) Dist (cm) Surjit (m/s) Norm Surjit (m/s) Left Median Anti Sensory (2nd Digit) Wrist ? 4.9 6.1 <3.6 7.5 >10 Wrist 2nd Digit 4.9 14.0 29 Right Median Anti Sensory (2nd Digit) Wrist ? 5.8 7.1 <3.6 3.2 >10 Wrist 2nd Digit 5.8 14.0 24 Right Radial Anti Sensory (Thumb) Forearm ? 1.6 2.3 <3.1 13.8 Forearm Thumb 1.6 0.0 Left Ulnar Anti Sensory (5th Digit) Wrist ? 2.7 3.2 <3.7 17.5 >15.0 Wrist 5th Digit 2.7 14.0 52 Right Ulnar Anti Sensory (5th Digit) Wrist ? 2.5 3.1 <3.7 10.1 >15.0 Wrist 5th Digit 2.5 14.0 56 Motor Summary Table ?Stim Site NR Onset (ms) Norm Onset (ms) O-P Amp (mV) Norm O-P Amp iAmp (mV) Amp (1st) (%) Site1 Site2 Delta-0 (ms) Dist (cm) Surjit (m/s) Norm Surjit (m/s) Left Median Motor (Abd Poll Brev) Wrist ? 6.3 <3.9 6.9 >4.5 8.4 100.0 Elbow Wrist 4.2 20.5 49 >45 Elbow ? 10.5 6.5 7.9 94.2 Right Median Motor (Abd Poll Brev) Wrist ? 6.7 <3.9 8.6 >4.5 10.6 100.0 Elbow Wrist 4.6 21.0 46 >45 Elbow ? 11.3 7.2 9.0 83.7 Left Ulnar Motor (Abd Dig Minimi) Wrist ? 2.8 <3.0 8.0 >5 8.8 100.0 B Elbow Wrist 3.5 18.0 51 >45 B Elbow ? 6.3 7.1 7.6 88.8 A Elbow B Elbow 1.9 10.0 53 >45 A Elbow ? 8.2 6.6 6.9 82.5 Right Ulnar Motor (Abd Dig Minimi) Wrist ? 2.7 <3.0 11.4 >5 12.5 100.0 B Elbow Wrist 3.6 19.0 53 >45 B Elbow ? 6.3 10.7 12.1 93.9 A Elbow B Elbow 1.5 10.0 67 >45 A Elbow ? 7.8 10.6 12.0 93.0 EMG ?Side Muscle Nerve Root Ins Act Fibs Psw Amp Dur Poly Recrt Int Pat Comment Right 1stDorInt Ulnar C8-T1 Nml Nml Nml Nml Nml 0 Nml Complete Right FlexCarpiUln Ulnar C8,T1 Nml Nml Nml Nml Nml 0 Nml Complete Right Biceps Musculocut C5-6 Nml Nml Nml Nml Nml 0 Nml Complete Right Triceps Radial C6-7-8 Nml Nml Nml Nml Nml 0 Nml Complete Right Deltoid Axillary C5-6 Nml Nml Nml Nml Nml 0 Nml Complete Left 1stDorInt Ulnar C8-T1 Nml Nml Nml Nml Nml 0 Nml Complete Left FlexCarpiUln Ulnar C8,T1 Nml Nml Nml Nml Nml 0 Nml Complete Left Biceps Musculocut C5-6 Nml Nml Nml Nml Nml 0 Nml Complete Left Triceps Radial C6-7-8 Nml Nml Nml Nml Nml 0 Nml Complete Left Deltoid Axillary C5-6 Nml Nml Nml Nml Nml 0 Nml Complete FINDINGS: Bilateral median motor nerves showed prolonged distal latency, normal amplitude and normal conduction velocity. Bilateral median sensory nerves showed small amplitude and prolonged peak latency. All other nerves tested were within normal. Concentric needle EMG was performed in selected muscles of the bilateral upper extremities. Study did not reveal signs of electric abnormalities as shown in the table above. IMPRESSION: 1. This is an abnormal study. 2. There is electrodiagnostic evidence for bilateral moderate-severe median neuropathy at the wrist, consistent with carpal tunnel syndrome. 3. There is no electrodiagnostic evidence for ulnar neuropathy, brachial plexopathy, or cervical radiculopathy. Clinical comment: Similar findings of Carpal Tunnel Syndrome bilateral compared to 2021. No signs of ulnar neuropathy seen on today's study. Thank you for your kind referral. Ramona Santiago MD, ELIECER Board Certified, [place] Board of Physical Medicine and Rehabilitation (ABPMR) Board Certified, [place] Board of Electrodiagnostic Medicine (ABEM) CODIN [phone] x 2 extremities MTDD
== END 2025-07-14 08:29 | disposition home or self-care (01) ==
LOC: HO.NEURO 08:28
PROVIDERS: PCP Family Medicine
DX: R20.0 Anesthesia of skin (principal); R20.2 Paresthesia of skin
CPT/HCPCS: 95886; 95911

== ENCOUNTER → 2025-07-14 08:30 | Outpatient (BNV) | payer OTHER, SELFPAY | PROVIDERS: PCP Family Medicine; Visit Provider Physical Medicine & Rehabilitation | DX: G56.03 Carpal tunnel syndrome, bilateral upper limbs (principal); R20.0 Anesthesia of skin | CPT/HCPCS: 95886; 95911 ==

== ENCOUNTER 2025-07-27 15:43 | Outpatient (AMB) | payer OTHER, SELFPAY ==
[2025-07-27 16:00] VITALS: BP 108/60; PULSE 85; O2SAT 96; BMI 44.9
--- NOTE | 2025-07-27 16:00 | A.OFFVIS_ITS ---
Vital Signs 07/27/25 16:00 Height 5 ft 9 in Weight 304 lb 3.806 oz BMI 44.9 BP 108/60 Blood Pressure Location Rt brachial Position Sitting Pulse 85 Pulse Source Pulse Oximeter Pulse Oximetry (%) 96 Oxygen Delivery Method Room Air Intake Visit Reasons: Type II DM Intake Note: Patient present today to follow up on Type 2 Diabetes Mellitus: Patient under went Robotic Laparoscopic Sleeve Gastrectomy at [facility] on 07/16/2025: Last Diabetic Eye exam: 11/02/24[facility] Last Podiatry Visit: Does not see a User Experience Team Lead Most Recent HgA1C: 7.2%, 07/27/2025 Random Glucose: 139 mg/dL Leadite Worker Required: No Accompanied by: Mother Allergies Penicillins Allergy (Intermediate, Verified 07/27/25 16:19) Shortness of Breath pt states no food allergies Allergy (Unknown, Uncoded 07/27/25 16:19) Unknown HPI Comments Details: This is a 50-year-old female with a past medical history of type 2 diabetes, hyperlipidemia, morbid obesity, hypertension, spinal stenosis, ADHD, SOLE on CPAP, anxiety with depression and asthma presenting for diabetic management. She was diagnosed with type 2 diabetes in 2003. Previously on Tresiba, Jardiance and Mounjaro. Tresiba was discontinued after her last visit. Mounjaro discontinued a week prior to gastric sleeve 07/16/2025. Jardiance was discontinued after the procedure. Past medications: Metformin discontinued due to GI side effects. Hemoglobin A1c 7.2%. Gastric sleeve 07/16/2025. Since I last saw the patient she lost 26 lb. She reports losing 14 lb following surgery. I reviewed her sensor data from July 13 to July 26. She is concerned because she has noticed her blood sugars are gradually increasing off of her medications. Right now she is on a limited diet, but she will be introducing more foods this Saturday. G IL 6.9% Glucose variability 19.4% Very high 0% High 11% Target range 89% 0% hypoglycemia My interpretation is the patient has glycemic control throughout 24 hours with occasional hyperglycemia in the morning and mid day and nocturnally. Complications: She has retinopathy and neuropathy. She receives intravitreal injections in both eyes every 8 weeks. Denies hypoglycemic episodes. Denies symptoms of hyperglycemia. Hyperlipidemia was previously treated with atorvastatin. She has been off of the medication for about a month because she ran out of it. Patient says that she contacted her surgeon's office this morning and called a few days ago because 1 of the laparoscopic incisions has not closed. The other incisions are closed. It is not painful around the site of the incision. It is not becoming red or swollen. There is no discharge. She denies fevers or chills. ROS: Constitutional: No unexplained weight loss, fever, chills or night sweats. Respiratory: No shortness of breath, cough or sputum production. Cardiovascular: No chest pain Gastrointestinal: No anorexia, nausea, vomiting or diarrhea. No abdominal pain Skin: see HPI Endocrine: No cold or heat intolerance. No polyuria or polydipsia. Physical exam: Constitutional: Alert, in no distress. Neck: Supple, Full range of motion. No lymphadenopathy. Respiratory: Clear to auscultation. Cardiovascular: S1 S2 regular. No murmurs. Extremities: Warm and well perfused. No clubbing, cyanosis or edema. Skin: There is dehiscence of the small laparoscopic incision on the right lower abdomen. The other incisions are closed. There is no discharge from the incision or bleeding. There is no edema or erythema. [facility] Medical History (Updated 07/27/25 @ 16:37 by IDALMIS Cortes) Type 2 diabetes mellitus with retinopathy Asthma Insomnia Neuropathy Breast calcification, right Adenocarcinoma determined by biopsy of liver Diabetic retinopathy Anxiety and depression GERD (gastroesophageal reflux disease) SOLE on CPAP ADHD Hyperlipidemia HTN (hypertension) with goal to be determined Diabetes mellitus Morbid obesity Surgical History (Updated 07/27/25 @ 16:23 by ANN Miles) History of sleeve gastrectomy Hx of LASIK History of cholecystectomy Family History Mother Diabetes Heart problem Father Hypertension Maternal Grandmother Primary cancer of bone marrow Maternal Grandfather Prostate cancer Social History Are you a primary outdoor emergency care technician to a significant other at home: No Do you presently have visiting nurse or other home services: No Alcohol intake: never Patient Tobacco Use Status: Never used Tobacco Female Reproductive History Menstrual Age of Menarche: 13 Physical Exam Vital Signs: Last Vital Signs Pulse 85 07/27/25 16:00 BP 108/60 07/27/25 16:00 Pulse Ox 96 07/27/25 16:00 Oxygen Delivery Method Room Air 07/27/25 16:00 BMI result Body Mass Index 44.9 Results AMB Hemoglobin A1c AMB Hemoglobin A1c 7.2 % Last Edit by ANN Miles on 07/27/25 16:26 Results Reviewed Results Reviewed: Laboratory Last Values Glucose (Clinic) 139 mg/dL (60-115) H 07/27/25 16:06 Hgb A1c (Clinic) 7.2 % (4.0-6.0) H 07/27/25 16:24 Laboratory Tests 01/01/23 01/14/23 11/03/24 10:20 11:01 07:45 Plt Count 349 Creatinine 0.70 Estimated GFR > 60 Hgb A1c (Clinic) AST 17 ALT 18 Triglycerides 89 Cholesterol 108 LDL Cholesterol, Calc 53 HDL Cholesterol 38 L Vitamin B12 505 TSH 1.39 Urine Creatinine 113.22 Urine Microalbumin 27.0 Microalb/Creat Ratio 23.8 11/03/24 08:25 Plt Count Creatinine Estimated GFR Hgb A1c (Clinic) 8.9 H AST ALT Triglycerides Cholesterol LDL Cholesterol, Calc HDL Cholesterol Vitamin B12 TSH Urine Creatinine Urine Microalbumin Microalb/Creat Ratio External labs 03/02/25 reviewed on patient's phone Cr 0.77 GFR 95 HDL 48 TRIG 111 LDL 112 Assessment & Plan Assessment & Plan (1) Type 2 diabetes mellitus with retinopathy: Code(s): E11.319 - Type 2 diabetes mellitus with unspecified diabetic retinopathy without macular edema Category: Medical Qualifiers: Diabetes mellitus terminal make up operator insulin use: without terminal make up operator use Diabetes mellitus macular edema: macular edema presence unspecified Diabetic retinopathy severity: with unspecified retinopathy severity Laterality: bilateral Qu alified Code(s): E11.319 - Type 2 diabetes mellitus with unspecified diabetic retinopathy without macular edema (2) Morbid obesity: Code(s): E66.01 - Morbid (severe) obesity due to excess calories Category: Medical (3) Hyperlipidemia: Code(s): E78.5 - Hyperlipidemia, unspecified Category: Medical Qualifiers: Hyperlipidemia type: pure hypercholesterolemia Qualified Code(s): E78.00 - Pure hypercholesterolemia, unspecified (4) Wound dehiscence: Code(s): T81.30XA - Disruption of wound, unspecified, initial encounter Plan This is a 50-year-old female with type 2 diabetes . Restart Mounjaro 2.5 mg weekly. Side effects and administration reviewed. Diabetic diet reviewed. She is following a diet per weight loss management. Reviewed treatment of hypoglycemia. She has glucose tablets. Advised patient that if her CGM alerts to a low sugar and she is asymptomatic she can check a fingerstick to confirm. She will have lab work done prior to her next visit including lipid profile to see if she needs to restart atorvastatin. Patient was advised to call her general surgeon's office again today regarding concern about wound dehiscence. Patient can follow prompts to speak to on-call provider if necessary. Advised patient to go to the ER if she develops redness, increased pain, discharge, fevers, chills, swelling. Follow up in 4-6 weeks for diabetes. Orders: Orders AMB Hemoglobin A1c Today E11.319 - Type 2 diabetes mellitus with unspecified diabetic retinopathy without macular edema Alanine Aminotransferase Today E11.319 - Type 2 diabetes mellitus with unspecified diabetic retinopathy without macular edema, I10 - Essential (primary) hypertension, R79.89 - Other specified abnormal findings of blood chemistry Aspartate Amino Transferase Today E11.319 - Type 2 diabetes mellitus with unspecified diabetic retinopathy without macular edema, I10 - Essential (primary) hypertension Microalbumin, Random (w Creat) Today E11.319 - Type 2 diabetes mellitus with unspecified diabetic retinopathy without macular edema, E11.9 - Type 2 diabetes mellitus without complications, I10 - Essential (primary) hypertension Lipid Panel Today E11.319 - Type 2 diabetes mellitus with unspecified diabetic retinopathy without macular edema, E78.5 - Hyperlipidemia, unspecified, I10 - Essential (primary) hypertension Creatinine Today E11.319 - Type 2 diabetes mellitus with unspecified diabetic retinopathy without macular edema, E11.9 - Type 2 diabetes mellitus without complications, I10 - Essential (primary) hypertension Medications: New tirzepatide (Mounjaro) for 4 weeks 2.5 mg (0.5 mL) subcut QWEEK 2 mL 1RF Discontinued tirzepatide (Mounjaro) Discontinued Reason: Doctor's Order INJECT 15 MG (0.5 ML) SUBCUTANEOUSLY EVERY WEEK 2 mL 3RF atorvastatin Discontinued Reason: Doctor's Order 20 mg PO BEDTIME 90 tabs 1RF empagliflozin (Jardiance) Discontinued Reason: Doctor's Order 25 mg PO QAM 90 tabs 0RF Coding Level of Care Code Est Pt Level 4 (03088) Add On Problem Visit Only Diagnoses Type 2 diabetes mellitus with retinopathy of both eyes, without long-term c urrent use of insulin, macular edema presence unspecified, unspecified retinopathy severity E11.319 Diabetes mellitus terminal make up operator insulin use: without terminal make up operator use Diabetes mellitus macular edema: macular edema presence unspecified Diabetic retinopathy severity: with unspecified retinopathy severity Laterality: bilateral Morbid obesity E66.01 Pure hypercholesterolemia E78.00 Hyperlipidemia type: pure hypercholesterolemia Wound dehiscence T81.30XA
[2025-07-27 16:10] LABS: Glucose, Whole Blood 139 mg/dL (60-115)
--- OUTSIDE RECORDS SUMMARY | 2025-07-27 16:44 | XMS_ITS | Encounter Summary ---
Author Organization [employer] Address [address] [facility] 7t [place] [address] Care Team Providers Care Manager Floor Name Role Phone Unavailable Primary Care Provider Unavailabl e Reason for Visit * Reason Comments Med Refill Encounter Details Date Type Department Care Team ([facility] st Contact Info) Description 10/13/2024 Refill [facility] PEDS [address] [place] [address] Braulio Carbajal MD [address] [place] [address] Primary hypertension Social History Tobacco Use Types [...]
--- OUTSIDE RECORDS SUMMARY | 2025-07-27 16:44 | XMS_ITS | Encounter Summary ---
Author Organization [employer] Address [address] [facility] 7t [place] [address] Care Team Providers Care Utility Agent Name Role Phone Unavailable Primary Care Provider Unavailabl e Reason for Visit * Reason Comments Med Refill Encounter Details Date Type Department Care Team ([facility] st Contact Info) Description 10/19/[address] [facility]S [address] [place] [address] Braulio Carbajal MD [address] [place] [address] Social History Tobacco Use Types Packs/Day Years [...]
--- OUTSIDE RECORDS SUMMARY | 2025-07-27 16:44 | XMS_ITS | Encounter Summary ---
Author Organization [facility] Address [address] [place] [address] Care Team Providers Care Sales Professional Bilingual Name Role Phone Nicole Padron MD Primary Care Provider [phone] Encounter Details Date Type Department Care Team (Late Contact Info) Description 03/02/2025 Orders Only [address] [phone] Bc Buckley DNP [address] [place] [address] Social History Tobacco Use Types Packs/Day Years [...] Encounters Date Type Department Care Team (Late Contact Info) Description 03/07/2026 9:15 AM EDT CPE - Comprehensive Physical Exam [address] [phone] Bc Buckley DNP [address] [place] [address] CPE documented as of this encounter Goals Goal Patient Goal Type Associated Problems Recent Progress Patient-Stated? Author HEMOGLOBIN A1C % < 7 Result Component [...] of this encounter Procedures * Due to [place] law, this organization might not be sharing [...] in this encounter Results * Due to [place] law, this organization might not be sharing [...] 5:44 PM EDT Narrative Resulting Agency Comment [id number] Bc Buckley [facility] Final Result [facility] [address] [place] [address] * (ABNORMAL) LIPID PANEL WITH REFLEX TO [...] LDL-C. Darci LOPEZ et al. COY. 2013;310(19): 5925-5213 (http://education.Zoom.ReefEdge/faq/MEP442) CHOL/HDL Ratio 3.8 <5.0 (calc) [facility] Cholesterol Non-HDL 134(H) <130 mg/dL (calc) [facility] Comment: For patients with diabetes plus 1 major ASCVD risk factor, treating to a non-HDL-C goal of <100 mg/dL (LDL-C of <70 mg/dL) is considered a therapeutic option. 03/02/2025 10:4 2 AM EDT 03/02/2025 5:44 PM EDT Narrative Resulting Agency Comment [id number] Bc Buckley [facility] Final Result Performing Organization Address [facility] de Phone Number [facility] [address] [place] [address] * ALBUMIN (MICROALBUMIN), RANDOM URINE, WITH CREATININE [...] 5:44 PM EDT Narrative Resulting Agency Comment [id number] Bc Buckley [facility] Final Result Performing Organization Address [facility] de Phone Number [facility] [address] [place] [address] * (ABNORMAL) BASIC METABOLIC PANEL WITH (GFR) [...] needs for GFR calculation. Resulting Agency Comment [id number] Bc Buckley [facility] Final Result Performing Organization Address [facility] de Phone Number [facility] [address] [place] [address] * HEPATITIS C AB WITH REFLEX TO RNA PCR, SERUM (03/02/2025 10:42 AM EDT) Hepatitis C virus Ab NON-REACT SÁNCHEZ NON-REACT SÁNCHEZ [facility] Comment: HCV antibody was non-reactive. There is no laboratory evidence of HCV infection. In most cases, no further action is required. However, if recent HCV exposure is suspected, a test for HCV RNA (test code 55214) is suggested. For additional information please refer to http://education.Siriona.ReefEdge/faq/SCP37v3 (This link is being provided for informational/ educational purposes only.) 03/02/2025 10:4 2 AM EDT 03/02/2025 5:44 PM EDT Narrative Resulting Agency Comment [id number] Bc Buckley [facility] Final Result Performing Organization Address [facility] Co de Phone Number [facility] [address] [place] [address] documented in this encounter Visit Diagnoses Diagnosis Need for hepatitis C screening test Special screening examination for other specified viral diseases Type 2 diabetes mellitus without complication, with long-term current use of insulin (HCC) documented in this encounter Care Teams Sales Professional Bilingual Relationship Specialty Start Date End Date Nicole Padron MD [address] [facility] [place] [address] PCP - General Family Medicine 10/28/24 documented as of this encounter
--- OUTSIDE RECORDS SUMMARY | 2025-07-27 16:45 | XMS_ITS | Encounter Summary ---
Author Organization [facility] Address [address] [place], [place] [id number] Care Team Providers Care Traverse Rod Assembler Name Role Phone Nicole Padron MD Primary Care Provider [phone] Reason for Visit * Reason Comments Medical Record Encounter Details Date Type Department Care Team (Late Contact Info) Description 03/23/2025 Abstract [facility] [place] [phone] Unknown, Abstract Provider Social History Tobacco Use [...] AM EDT CPE - Comprehensive Physical Exam [facility] [address] [place] [phone] Bc Buckley, [facility] [address] [place] [address] CPE documented as of this encounter Goals [...] on filedocumented in this encounter Care Teams Traverse Rod Assembler Relationship Specialty Start Date End Date Nicole Padron MD [address] [facility] [place] [address] PCP - General Family Medicine 10/28/24 documented as of this encounter
--- OUTSIDE RECORDS SUMMARY | 2025-07-27 16:45 | XMS_ITS | Encounter Summary ---
Author Organization [employer] Address [address] [facility] 7 [place] [address] Care Team Providers Care Formula Mixer Name Role Phone Braulio Carbajal MD Primary Care Prov ider Reason for Visit * Reason Onset Date Comments Med Refill 02/28/2023 Encounter Details Date Type Department Care Team (Late st Contact Info) Description 02/28/2023 Refill [facility] [address] [place] [address] Braulio Carbajal MD [address] [place] [phone] Mixed hyperlipidemia; Primary hypertension; Type 2 diabetes mellitus with diabetic polyneuropathy, with long-term current use of insulin ([facility]/HCC) Social History Tobacco Use Types Packs/Day [...] (HCC) documented in this encounter Care Teams Formula Mixer Relationship Specialty Start Date End Date Braulio Carbajal MD [address] [place] [address] PCP - General Internal Medicine 12/14/19 04/28/24 documented as of this encounter
--- OUTSIDE RECORDS SUMMARY | 2025-07-27 16:45 | XMS_ITS | Data Portability ---
Author Organization [place] - [facility],, ADRIANA LARA MD Address [address] [address] Assessment No assessment recorded. Plan of Treatment Reminders Order Date Submit Date Provider Last Modified By Organization Details Last Modified Time Details Appointments None recorded. Lab pap test, thinprep, cervical 2021 022 [email or web address] [facility], Cytopathology Service, [address] [place] [address], [address], 2 07:36:24 fecal occult blood, stool 2021 022 [email or web address] In-Office Order, Internal Use Only DO Not Attach Compendium DO Not Attach Compendium, Do Not Delete/merge, [id number] 2 11:34:07 pap test, thinprep, cervical 2020 021 [email or web address] [facility], Cytopathology Service, [address] [place] [address], [address], 1 07:14:16 fecal occult blood, stool 2020 021 [email or web address] 1 In-Office Order, Internal Use Only DO Not Attach Compendium DO Not Attach Compendium, Do Not Delete/merge, [id number] 13:58:54 pap test, thinprep, cervical 2019 020 [email or web address] [facility], Cytopathology Service, [address] [place] [address], [address], 0 08:59:10 fecal occult blood, stool 2019 020 [email or web address] In-Office Order, Internal Use Only DO Not Attach Compendium DO Not Attach Compendium, Do Not Delete/merge, [id number] 0 08:59:10 pap test, thinprep, cervical 2018 019 [facility], Cytopathology Service, [address] [place] [address], [address], 9 04:32:23 fecal occult blood, stool 2018 019 [email or web address] In-Office Order, Internal Use Only DO Not Attach Compendium DO Not Attach Compendium, Do Not Delete/merge, [id number] 9 07:31:20 pap test, thinprep, cervical 2014 015 [facility] Pathology [facility], Cytopathology Service, [address] [place] [address], [address], 5 12:26:29 chlamydia sp, culture, unspecifi ed specimen 2014 015 [facility] Pathology [facility], Cytopathology Service, [address] [place] [address], [address], 5 08:24:20 NG DNA, PCR, genital 2014 015 [facility] Pathology [facility], Cytopathology Service, [address] [place] [address], [address], 5 08:24:20 test, urine 2014 015 [email or web address] 1 In-Office Order, Internal Use Only DO Not Attach Compendium DO Not Attach Compendium, Do Not Delete/merge, [id number] 5 11:43:08 Referral None recorded. Procedures None recorded. Surgeries None recorded. Imaging MAMMO, screening , digital, bilateral 2021 022 [facility] Orders, [address], [address], [place], [address], 4 07:16:34 MAMMO, screening , digital, bilateral 2020 021 [facility] Orders, [address], [address], [place], [address], 2 07:36:18 MAMMO, screening , digital, bilateral 2019 020 [facility] (Mammography), [address] [facility], [place], [address], 1 07:41:40 MAMMO, screening , digital, bilateral 2018 019 [facility] Orders, [address], [address], [place], [address], 0 07:25:26 Medication Orders None recorded. Patient TargetsNo targets recorded. Patient Instructions Encounter Date Encounter Id Patient Instructions Last Modified By Organization Details Last Modified Time 12/07/2014 [id number] She is here for annual exam. Her latest A1C was 10, in 06/18, the [facility] infertility referred her to [...] irregular every 4 to 6 weeks, no o6zdlce no for 6 weeks, check u preg, [...] in detail. Not available 12/07/2014 11:43:09 09/01/2018 [id number] She is here for annual exam. She has not been here since 2014. She was seeing [facility] infertility but they gave [...] latest A1C was 10, in 06/18, the [facility] infertility referred her to [...] well. Advised to follow up with her fitness/wellness director about her diabetes. She is going back [...] questions answered. Not available 09/01/2018 10:07:54 09/08/2019 [id number] She is here for annual exam, her weight is stable at 367 pounds. Her was in the ICU for 4 weeks due to sepsis, he is better now though. She had a Mirena placed 3 years ago, no menses. note form 2019: She is here for annual exam. She has not been here since 2014. She was seeing [facility] infertility but they gave [...] get the date of IUD insertion at [facility] for us so that [...] detail. rebecca Not available 09/08/2019 15:23:23 04/04/2021 [id number] learning about healthy weight rebecca Not available [...] counseling but he would only go in [place] and they could not find a [place] speaking counselor. Note from 2019: She is [...] breast. [email or web address] Not available 04/04/2021 14:00:20 04/17/2022 [id number] learning about healthy weight [email or web address] Not available [...] counseling but he would only go in [place] and they could not find a [place] speaking counselor. She appears to be doing [...] DO Not Attach Compendium, Do Not Delete/merge, [id number] 04/04/2021 13:36:07 09/08/19 20 09/08/2019 fecal occul t blood , stool Occult Blood negati ve Not Available In-Office Order Internal Use Only DO Not Attach Compendium DO Not Attach Compendium, Do Not Delete/merge, [id number] 09/08/2019 15:00:26 09/01/19 19 09/01/2018 fecal occul t blood , stool Occult Blood negati ve Not Available In-Office Order Internal Use Only DO Not Attach Compendium DO Not Attach Compendium, Do Not Delete/merge, [id number] 09/01/2018 09:30:38 12/08/19 15 12/07/2014 pregn marshal test, urine HCG negati ve Not Available In-Office Order Internal Use Only DO Not Attach Compendium DO Not Attach Compendium, Do Not Delete/merge, [id number] 12/07/2014 10:52:47 12/08/19 15 12/07/2014 gener al5ca se [email or web address] RESUL TS OF GEN-P ROBE APTIM A COMBO 2 ASSAY Chlam ydia: NEGAT SÁNCHEZ N. gonor rhoea e: NEGAT SÁNCHEZ GENA Camden RIOS M.D., Patho logis t (Case elect martin sy chuy d 12 09 2014) CLINI [facility] INFOR MATIO N: LPS NEG SOURC E: ThinP rep Pap for CT/GC Gross Descr iptio n: ThinP rep Vial Recei joanne. Physi JAYSON Russ N /#[phone]/2 [phone] 9 Cytop athol ogy servi carlos provi ded by [facility] at the above addre ss. Not Available [facility], Cytopathology Service [address] [place], [address], 12/09/2014 15:06:31 12/08/19 15 12/07/2014 pap, LB [email or web address] ThinP rep Pap, Image d: NEGAT SÁNCHEZ [...] at the above addre ss. Not Available [facility], Cytopathology Service [address] [place] [address], [address], 12/14/2014 12:26:29 09/01/19 19 09/01/2018 pap, LB [email or web address] ThinP rep Pap, Image d: NEGAT SÁNCHEZ [...] . LPS 5 NEG, Z12.4 Not Available [facility], Cytopathology Service [address] [place] [address], [address], 09/02/2018 17:26:28 09/08/19 20 09/08/2019 pap, LB [email or web address] ThinP rep Pap, Image d: NEGAT SÁNCHEZ [...] . LPS NEG [Z12. 4] Not Available [facility], Cytopathology Service [address] [place], [address], 09/10/2019 13:06:44 04/04/20 21 04/04/2021 PAP1C ASE [email or web address] ThinP rep Pap, Image d: NEGAT SÁNCHEZ [...] LPS 0 NEG [Z12. 4] Not Available [facility], Cytopathology Service [address] [place] [address], [address], 04/12/2021 13:55:52 04/17/2004/17/2022 PAP1C ASE [email or web address] ThinP rep Pap, Image d: NEGAT SÁNCHEZ [...] IUD, LPS neg. [z01. 419] Not Available [facility], Cytopathology Service [address] [place] [address], [address], 04/23/2022 08:11:00 04/17/20 22 04/17/2022 fecal occul t blood , stool Occult Blood negati ve Not Available In-Office Order Internal Use Only DO Not Attach Compendium DO Not Attach Compendium, Do Not Delete/merge, [id number] 04/17/2022 10:29:09 Result Notes None recorded. Problems Name Problem SNOMED Code Status Onset Date Resolution Date Notes Provider Name and Address Organization Details Recorded Time Candidal vulvovaginiti s 18254451 Active Not Available [facility] 3 03:01:06 Irritable bowel syndrome 25693678 Active Not Available [facility] 3 03:01:06 Obesity 222199508 Active Not Available [facility] 3 03:01:06 Oligoovulator y dysfunctional uterine bleeding 641545167 Active Adriana Lara MD [address], [place], [address] , [place] - [facility], 5 11:43:08 Uncontrolled type 2 diabetes mellitus 878054250 Active Not Available [facility] 3 03:01:06 Primary female infertility 1689379 Active Not Available [facility] 3 03:01:06 Pruritus of vulva 28081269 Active Not Available [facility] 3 03:01:06 Pain in pelvis 97663311 Active Adriana Lara MD [address], [place], [address] , [place] - [facility], 4 15:07:42 Glycosuria 75439762 Active Adriana Lara MD [address], [place], [address] , [place] - [facility], 4 15:07:42 Problem Notes None recorded. Procedures Surgical History Date Name Laterality Status Provider Name and Address Organization Details Recorded Time 04/05/20 20 Most Recent Mammogram completed Yashira Alonso [place] - [facility], 04/17/2022 10:36:13 08/05/19 00 Cholecystectomy completed Taryn Beasley [place] - [facility], 11/10/2012 13:22:27 Imaging Results None recorded. Procedure Notes None recorded. Medical Equipment None Reported. Allergies Allergen ID Allergen Name Allergen Category Reaction Reaction Severity Criticality Documentation Date Start Date Code Code System Note Provider Name and Address Organization Details Recorded Time [address] [facility] environme nt,medica tion rash Not available Not available 09/08/2019 32197 RxNorm Yashira Celeste [place] - [facility], 0 14:53:01 7561 Product containin g penicilli n (product) medicatio n rash Not available Not available 11/10/2012 80127 8001 SNOMED Taryn Beasley [place] awrd - Ernesto in [facility], 3 13:11:08 Medications Name Sig Start [...] tab 100mg active Not Available Not Available N ot Available methylphen id cap 10mg active Not [...] henidate ER 40 mg capsule,ex tended release [id number] -50 TAKE 1 CAPSULE BY MOUTH EVERY [...] N ot Available [employer] Alexei 14 Day [place] FOR TESTING GLUCOSE LEVELS active Not Available [...] 09/01/2018 175.26 cm 95 /min 54.2 kg/m2 542277.6 8 g 122/65 mm[Hg] Taryn Beasley [place] - [facility], 09/01/2018 09:12:36 Date Recorded Body weight Body mass index (BMI) Body height Heart rate Systolic And Diastolic Provider Name and Address Organization Details Last Updated DateTime 09/08/2019 962114.1 2 g 55 kg/m2 173.99 cm 110 /min 132/77 mm[Hg] Yashira Orozco in [facility], 09/08/2019 14:53:44 Date Recorded Body weight Heart rate Body mass index (BMI) Body height Systolic And Diastolic Provider Name and Address Organization Details Last Updated DateTime 12/07/2014 969965.1 769 g 103 /min 54.6 kg/m2 175.26 cm 119/71 mm[Hg] Yashira Orozco in [facility], 12/07/2014 10:17:20 Date Recorded Body height Body temperature Body mass index (BMI) Body weight Heart rate Systolic And Diastolic Provider Name and Address Organization Details Last Updated DateTime 1 173.99 cm 97.2 [degF] 58.6 kg/m2 867376. 34 g 104 /min 141/75 mm[Hg] Yashira Orozco in [facility], 1 13:34:29 Date Recorded Body weight Body mass index (BMI) Body height Body temperature Heart rate Systolic And Diastolic Provider Name and Address Organization Details Last Updated DateTime 2 764219. 19 g 54.3 kg/m2 172.72 cm 98.1 [degF] 93 /min 142/79 mm[Hg] Yashira Orozco in [facility], 2 10:33:37 Social History Question Answer Notes LastModified by Organizat ion Details LastModified Time Tobacco Smoking Status Never Smoker Not Available [facility] 06/07/2020 03:19:40 What Is Your Level Of Caffeine Consumption? Occasional [id number] Information not available 06/07/2020 In The 14 [...] Type Of Diet Are You Following? REGULAR [id number] Information not available 06/07/2020 Which Illicit Or Recreational Drugs Have You Used? None [id number] Information not available 06/07/2020 Do You Reside In Or Have You Traveled To An Area Where Ebola Virus Transmission Is Active? No [id number] Information not available 06/07/2020 Education Post Graduate Information not available 11/10/2012 What Is The Highest Grade Or Level Of School You Have Completed Or The Highest Degree You Have Received? [id number] Information not available 04/04/2021 Who Is Your [...] Female Information not available 09/01/2018 Marital Status [employer] not available 11/10/2012 What Was The Date Of Your Most Recent Tobacco Screening? 04/04/2021 Information not available 04/04/2021 What Is Your Relationship Status? Information not available 04/04/2021 Are You Sexually Active? Yes [id number] Information not available 06/07/2020 How Much Tobacco Do You Smoke? No [id number] Information not available 06/07/2020 General Stress Level [...] is your level of alcohol consumption? None [id number] Information not available 06/07/2020 Do you or have you ever used smokeless tobacco? Never used smokeless tobacco [id number] Information not available 06/07/2020 Are you currently employed? 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 Never used electronic cigarettes [id number] Information not available 06/07/2020 What is your exercise level? None [id number] Information not available 06/07/2020 Mental Status Question Answer Note LastModified by Organization D etails LastModified Time Do you feel stressed (tense, restless, nervous, or anxious, or unable to sleep at night)? [id number] Information not available 04/04/2021 Family History Relationship [...] MD [address], [place], [address], [place] Orozco in [facility], 11/10/2012 13:43:51 Tdap 3 completed [place] Sexton in [facility], 12/11/2012 15:22:23 Influenza, split virus, quadrivalent, preservative 9 completed [place] Sexton in [facility], 09/01/2018 09:26:24 COVID-19, mRNA, LNP-S, PF, 100 mcg/0.5mL dose or 50 mcg/0.25mL dose 1 completed [place] Ramos in [facility], 04/04/2021 13:38:30 Influenza, split virus, quadrivalent, preservative 1 completed [place] Ramos in [facility], 04/17/2022 10:34:55 Past Encounters Encounter ID Performer Location Encounter Start Date Encounter Closed Date Diagnosis/Indication Diagnosis SNOMED-CT Code Diagnosis ICD10 Code Diagnosis IMO Codes Diagnosis Note [id number] MD ADRIANA Dickson MD [address] [place] [id number] 11/10/2012 12:51:19 11/11/2012 08:37:47 [id number] MD ADRIANA Dickson MD [address] [place] [id number] 12/11/2012 15:08:24 12/12/2012 16:10:03 [id number] MD ADRIANA Dickson MD [address] [place] [id number] 08/21/2013 13:33:26 08/21/2013 15:51:36 Pain in pelvis 66831244 Acute lowe r urinary tract infection 695967461 Glycosuria 66713310 [id number] MD ADRIANA Dickson MD [address] [place] [address],[place] [id number] 11/13/2013 09:28:08 11/13/2013 13:10:39 Specialized medical examination 13670020 [id number] MD ADRIANA Dickson MD [address] [place] [address],[place] [id number] 12/07/2014 10:02:59 12/07/2014 13:34:46 Specialized medical examination 92612999 Venereal d isease screening 437994250 Oligoovula tory dysfunctional uterine bleeding 754302227 [id number] MD ADRIANA Dickson MD [address] [place] [address],[place] [id number] 09/01/2018 09:04:26 09/01/2018 12:06:59 Specialized medical examination 77594519 Z01.419 Screening for malignant neoplasm of rectum 400550880 Z12.12 Screening mammography 24 222210 Z12.31 [id number] MD ADRIANA Dickson MD [address] [place] [address],[place] [id number] 09/08/2019 14:46:50 09/08/2019 15:34:18 Specialized medical examination 11127849 Z01.419 Screening for malignant neoplasm of rectum 697108863 Z12.12 Screening mammography 24 783678 Z12.31 [id number] MD ADRIANA Dickson MD [address] [place] [address],[place] [id number] 04/04/2021 13:29:45 04/04/2021 14:48:20 Specialized medical examination 64822719 Z01.419 Screening for malignant neoplasm of rectum 178293439 Z12.12 Screening mammography 24 230596 Z12.31 [id number] MD ADRIANA Dickson MD [address] [place] [address],[place] [id number] 04/17/2022 10:28:03 04/17/2022 11:34:15 Specialized medical examination 63859953 Z01.419 Screening for malignant neoplasm of rectum 837154545 Z12.12 Screening mammography 24 228972 Z12.31 Health Concerns Section Related Observation LastModified by Organization Detai ls LastModified Time None Recorded Concern Status LastModified by Organization Details LastModified Time None Recorded Advance Directives Directive None Recorded Payers Insurance Date Sequence Insurance Name Policy Number Policy Fountain Covered Member ID Fountain Member ID Guarantor Name 09/03/2019 1 [facility] [id number] Glorymar López [id number] Glorymar López Colon 09/03/2019 1 [facility] CHO[facility] [id number] Glorymar López [id number] Glorymar López Colon 09/03/2019 1 [facility] - CHO[facility] (O) [id number] Glorymar López [id number] Glorymar López Colon 04/14/2022 1 [facility] [id number] Glorymar López [id number] Glorymar Lóepz Colon 09/03/2019 1 [facility] [id number] Glory López [id number] Glorymar López Colon 02/14/2023 2 [employer] [id number] Glorymar López Colon [id number] Glorymar López Colon Notes Date Note Type Note Provider Name and Address Organization Details Recorded Time 12/07/2014 text/html ROS as noted in the HPI Adriana Lara MD [address] [facility],[address], [place], [address], [place] - [facility], [...] latest A1C was 10, in 06/18, the [facility] infertility referred her to endocrinology in 06/18, she was given instructions for rescue insulin doses when her sugars are high, she is doing that now, she had an A1C drawn on 11/25/14 but has not received the results yet. Adriana Lara MD [address], [place], [address], [place] - [facility], [...] been here since 2014. She was seeing [facility] infertility but they gave [...] MD [address], [place], [address], [place] [facility], [...] counseling but he would only go in [place] and they could not find a [place] speaking counselor. Note from 2019: She is [...] MD [address], [place], [address], [employer] - [facility], 04/04/2021 14:00:40 04/17/2022 text/html Her weight [...] counseling but he would only go in [place] and they could not find a [place] speaking counselor. Adriaan Lara MD [address], [place], [address], [place] [facility], 04/17/2022 11:00:04 OBGyn Episode No OBEpisode recorded.
--- OUTSIDE RECORDS SUMMARY | 2025-07-27 16:45 | XMS_ITS | Encounter Summary ---
Author Organization [employer] Address [address] [place] [address] Care Team Providers Care Sales And Training Specialist Name Role Phone Braulio Carbajal MD Primary Care Prov ider Reason for Visit * Reason Comments Med Refill Encounter Details Date Type Department Care Team (Late st Contact Info) Description 10/29/2022 Refill [facility] [address] [place], [place] [phone] Braulio Carbajal MD [address] [place] [address] Social History Tobacco Use Types Packs/Day Years [...] on filedocumented in this encounter Care Teams Sales And Training Specialist Relationship Specialty Start Date End Date Braulio Carbajal MD [address] [place] [address] PCP - General Internal Medicine 12/14/19 04/28/24 documented as of this encounter
--- OUTSIDE RECORDS SUMMARY | 2025-07-27 16:45 | XMS_ITS | Encounter Summary ---
Author Organization [employer] Address [address] [facility] 7t [place] [address] Care Team Providers Care Egg Candler Name Role Phone Unavailable Primary Care Provider Unavailabl e Reason for Visit * Reason Comments Med Refill Encounter Details Date Type Department Care Team ([facility] st Contact Info) Description 11/02/2024 Refill [facility] [address] [place] [address] Braulio Carbajal MD [address] [place] [address] Social History Tobacco Use Types Packs/Day Years [...]
--- OUTSIDE RECORDS SUMMARY | 2025-07-27 16:45 | XMS_ITS | Clinical Summary ---
Author Organization [employer] [facility] Prior to 01/02/[address] [place] [address] Care Team Providers Care Air Dispatcher Name Role Phone Braulio Lopez MD Primary Care Provider [phone] Allergies Active Allergy Reactions Criticality Noted Date [...] age to complete this topic Care Teams Air Dispatcher Relationship Specialty Start Date End Date Braulio Lopez MD [address] [place] [address] PCP - General Internal Medicine 03/20/22
--- OUTSIDE RECORDS SUMMARY | 2025-07-27 16:45 | XMS_ITS | Encounter Summary ---
Author Organization [employer] Address [address] [place] [address] Care Team Providers Care Data Technical Lead Name Role Phone Braulio Carbajal MD Primary Care Prov ider Reason for Visit * Reason Comments Med Refill Encounter Details Date Type Department Care Team (Late st Contact Info) Description 10/29/2022 Refill [facility] MEDICINE [address] [place], [place] [phone] Braulio Carbajal MD [address] [place] [address] Social History Tobacco Use Types Packs/Day Years [...] on filedocumented in this encounter Care Teams Data Technical Lead Relationship Specialty Start Date End Date Braulio Carbajal MD [address] [place] [address] PCP - General Internal Medicine 12/14/19 04/28/24 documented as of this encounter
--- OUTSIDE RECORDS SUMMARY | 2025-07-27 16:45 | XMS_ITS | Clinical Summary ---
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 03/03/20 14 Active cholecalcifero l, vitamin D3, 75 mcg (3,000 unit) tablet Take by mouth. Active LORazepam (ATIVAN) 1 mg tablet Take 1 tablet (1 mg total) by mouth every 6 (six) hours if needed. Max Daily Amount: 4 mg Active buPROPion XL (WELLBUTRIN XL) 150 mg 24 hr tablet Take 1 tablet (150 mg total) by mouth 1 (one) time each day. Do not crush, chew, or split. Active FLUoxetine (PROzac) 20 mg capsule Take 1 capsule (20 mg total) by mouth 1 (one) time each day. Active lisdexamfetami ne (VYVANSE) 70 mg capsule Take 1 capsule (70 mg total) by mouth 1 (one) time each day in the morning. Active acetaminophen (TYLENOL) 500 mg tablet Take 2 tablets (1,000 mg total) by mouth every 8 (eight) hours. 180 tablet 07/12/20 25 Active pantoprazole (PROTONIX) 40 mg EC tablet Take 1 tablet (40 mg total) by mouth 1 (one) time each day before breakfast. Do not crush, chew, or split. 30 each 2 07/12/20 25 026 Active simethicone (MYLICON) 80 mg chewable tablet Chew 1 tablet (80 mg total) every 6 (six) hours if needed for flatulence. 30 tablet 07/12/20 25 026 Active polyethylene glycol (MIRALAX) 17 gram packet Take 17 g by mouth 1 (one) time each day. 510 g 07/12/20 25 026 Active wheat dextrin 3 gram/3.5 gram powder in packet Take 1 packet by mouth 1 (one) time each day. 30 packet 07/12/20 25 Active minoxidiL (LONITEN) 2.5 mg tablet Take 1 tablet (2.5 mg total) by mouth 1 (one) time each day. Active gabapentin (NEURONTIN) 300 mg capsule Take 2 capsules (600 mg total) by mouth at bedtime. Active oxyCODONE (ROXICODONE) 5 mg immediate release tablet Take 1 tablet (5 mg total) by mouth every 6 (six) hours if needed for severe pain. Max Daily Amount: 20 mg 8 tablet 07/17/20 25 Active FREESTYLE LANCETS MISC Use to test blood sugar 4 times a day.DX-250.00 12/31/19 14 025 Discontinued blood sugar diagnostic (FreeStyle Lite Strips) test strip Use to test blood sugar 4 times a day.DX-250.00 12/31/19 14 025 Discontinued blood-glucose meter kit Use to check blood sugar 4 times a day.DX-250.00 02/16/20 14 025 Discontinued amphetamine-de xtroamphetamin e (ADDERALL) 20 mg tablet Take 2 tablets (40 mg total) by mouth 1 (one) time each day. In afternoon in addition to 20mg xr In am Max Daily Amount: 40 mg 025 Discontinued fluticasone propionate (FLONASE) 50 mcg/actuation nasal spray Administer 1 spray into affected nostril(s) 1 (one) time each day. 12/12/19 13 025 Discontinued omeprazole (PriLOSEC) [address] capsule Take 1 capsule (20 mg total) by mouth 1 (one) time each day. 11/12/19 13 025 Discontinued(St op Taking at Discharge) ondansetron (ZOFRAN) 4 mg tablet Take 1 tablet (4 mg total) by mouth every 6 (six) hours if needed for nausea. 02/16/20 14 025 Discontinued ergocalciferol (VITAMIN D-2) 1,250 mcg (50,000 unit) capsule Take 1 capsule (50,000 Units total) by mouth 1 (one) time per week. 12 each 07/24/20 24 025 Discontinued Mounjaro 15 mg/0.5 mL injection 03/22/20 25 025 Discontinued(St op Taking at Discharge) empagliflozin (Jardiance) 25 mg tablet Take 1 tablet (25 mg total) by mouth 1 (one) time each day. 025 Discontinued(St op Taking at Discharge) risankizumab-r zaa (SKYRIZI SUBQ) Inject under the skin. 025 Discontinued(St op Taking at Discharge) ondansetron (ZOFRAN) 4 mg tablet Take 1 tablet (4 mg total) by mouth every 8 (eight) hours if needed for nausea or vomiting for up to 7 days. 21 tablet 07/12/20 25 025 Active Problems Problem Noted Date Diagnosed Date Morbid obesity with BMI of 45.0-49.9, adult 03/06 Class 3 severe obesity with serious comorbidity and body mass index (BMI) of 50.0 to 59.9 in adult 01/18/2025 Class 3 severe obesity with serious comorbidity and body mass index (BMI) of 50.0 to 59.9 in adult 12/18/2024 Class 3 severe obesity with serious [...] Encounters Date Type Department Care Team Description 07/16/2025 9:00 AM EST - 07/16/2025 11:[address] [facility] OR [address] [place] [phone] Gosia Stoner MD DAVINCI SLEEVE GASTRECTOMY [16220 (CPT )] 07/16/2025 8:54 AM EST Anesthesia Event [facility] OR [address] [place] [phone] Allan Silver DO Pierce, Trudy A, PENELOPE 07/16/2025 6:10 AM EST - 07/17/2025 1:30 PM EST Hospital Encounter [facility] Surgical Unit [address] [place] [phone] Gosia Stoner MD Morbid obesity with BMI of 45.0-49.9, adult (CMS/HCC V24, CMS/HCC V28) Discharge Disposition: Home or Self Care 07/12/2025 12:45 PM EST Consult Bariatric Surgery - [address] [phone] Gosia Stoner MD Class 3 severe obesity with serious comorbidity and body mass index (BMI) of 45.0 to 49.9 in adult, unspecified obesity type (CMS/HCC V24, CMS/HCC V28) (Primary Dx); Sleep apnea, unspecified type; Preop examination 07/12/2025 12:20 PM EST Lab Draw Station - 175 [facility] [address] [phone] Drug therapy (Primary Dx); Psoriasis vulgaris 07/06/2025 10:59 AM EST - 07/06/2025 11:59 PM EST Hospital Encounter [facility] Xray [address] [place] [phone] Discharge Disposition: Home or Self Care 06/30/2025 11:00 AM EST Consult Bariatric Surgery - [address] [place] [address] Class 3 severe obesity with serious comorbidity and body mass index (BMI) of 45.0 to 49.9 in adult, unspecified obesity type ([facility] V24, [facility] V28) (Primary Dx) from Last 3 Months Immunizations Immunization Administration Dates Next Due Tdap Tetanus diptheria acell ular pertussis (Boostrix; Adacel) 7yo and older 12/11/2012 Surgical History Surgery Date Site/Laterality Comments CHOLECYSTECTOMY 1999 PROCEDURE: HISTORICAL CHOLECYSTECTOMY Medical History Medical History Date Comments HTN (hypertension) 2011 DX:HTN (hyper tension) DM (diabetes mellitus) ([facility] V24, [facility] V28) 2006 DX:DM (diabetes mellitus) (H [...] drink = 0.6 oz pur e alcohol) Interpersonal Safety Answer Date Record ed Physical Abuse Unrecognized value 07/16/2025 Verbal Abuse Unrecognized value 07/16/2025 Comments Unknown Sex and Gender Information Value Date Recorded Sex Assigned at Female 07/01/2024 1:41 PM EST Legal Sex Female 1:01 PM EST Gender Identity Female 07/01/2024 1:41 PM EST Sexual Orientation Not on file Last Filed Vital Signs Vital Sign Reading Time Taken Comments Blood Pressure 119/65 07/17/2025 8:06 AM EST Pulse 77 07/17/2025 8:06 AM EST Temperature 36.2 C (97.1 F) 07/17/2025 8:06 AM EST Respiratory Rate 16 07/17/2025 8:06 AM EST Oxygen Saturation 100% 07/17/2025 8:06 AM EST Inhaled Oxygen Concentration - - Weight 147 kg (324 lb 1.6 oz) 07/16/2025 2:06 PM EST Height 175.3 cm (5' 9.02 ) 07/16/2025 6:56 AM ES T Body Mass Index 47.84 07/16/2025 6:56 AM EST Plan of Treatment Upcoming Encounters Date Type Department Care Team (Late st Contact Info) Description 08/02/2025 11:00 AM EST Office Visit Bariatric Surgery [address] [phone] Gosia Stoner MD [address] [place] [phone] 08/16/2025 11:00 AM EST Telemedicine Bariatric Surgery [facility] [address] [phone] rPema Wallis, RD [address] [phone] 09/21/2025 11:15 AM EST Office Visit Bariatric Surgery [address] [phone] Gosia Stoner MD [address] [place] [phone] Health Maintenance Due Date Last Done Comments Breast Cancer Screening 1976 Colorectal Cancer Screening: Colonoscopy 1976 Drug Screen 1976 Non-Opioid Controlled Substance Agreement 1976 Diabetes: Annual Foot Exam 1986 Diabetes: [...] 02/26/2014 Diabetes: Annual GFR (Glomerular Filtration Rate) 07/17/2026 07/17/2025, 07/06/2025, 03/02/2025, Additional history exists Hypertension/CHF/CAD Annual BMP Blood Test 07/17/2026 07/17/2025, 07/06/2025, 03/02/2025, Additional history exists Cholesterol Screening (Lipid Panel) 03/02/2030 03/02/2025, 07/20/2024, [...] Procedure Name Priority Date/Time Associated Diagnosis Comments POCT GLUCOSE BLOOD Routine 07/17/2025 11 :14 AM EST POCT GLUCOSE BLOOD Routine 07/17/2025 8: 07 AM EST CBC WITH AUTO DIFFERENTIAL Routine 07/17/2025 6:01 AM EST CBC AND DIFFERENTIAL Routine 07/17/2025 6:01 AM EST BASIC METABOLIC PANEL Routine 07/17/2025 6:01 AM EST MAGNESIUM Routine 07/17/2025 6:01 AM EST PHOSPHORUS Routine 07/17/2025 6:01 AM EST POCT GLUCOSE BLOOD Routine 07/16/2025 7: 54 PM EST POCT GLUCOSE BLOOD Routine 07/16/2025 4: 11 PM EST POCT GLUCOSE BLOOD Routine 07/16/2025 12 :47 PM EST POCT GLUCOSE BLOOD Routine 07/16/2025 11 :56 AM EST OXYGEN THERAPY, ADULT Routine 07/16/2025 11:06 AM EST TISSUE EXAM Routine 07/16/2025 10:47 AM EST Morbid obesity with BMI of 45.0-49.9, adult (CMS/HCC V24, CMS/HCC V28) TH AN ENDOTRACHEAL(NO CHARGE) Routine 07/16/2025 9:21 AM EST AK LAP SURGICAL GASTRIC RESTRICTIVE PROCEDURE LONGITUDINAL GASTRECTOMY 07/16/2025 8:53 AM EST Morbid obesity with BMI of 45.0-49.9, adult (CMS/HCC V24, CMS/HCC V28) Case Notes 23 HR BED Special Needs 23 hour bed/6 TIME CHANGE VIA PHONE W/ LAUREN JOLLEY POCT GLUCOSE BLOOD Routine 07/16/2025 6: 57 AM EST INTERFERON GAMMA INTERPRETATION Routine 07/12/2025 12:23 PM EST Drug therapy Psoriasis vulgaris INTERFERON GAMMA ANTIGEN 2 Routine 07/12/2025 12:23 PM EST Drug therapy Psoriasis vulgaris INTERFERON GAMMA ANTIGEN 1 Routine 07/12/2025 12:23 PM EST Drug therapy Psoriasis vulgaris INTERFERON GAMMA MITOGEN Routine 07/12/2025 12:23 PM EST Drug therapy Psoriasis vulgaris INTERFERON GAMMA NIL Routine 07/12/2025 12:23 PM EST Drug therapy Psoriasis vulgaris INTERFERON GAMMA FOR TB, QUALITATIVE Routine 07/12/2025 12:23 PM EST Drug therapy Psoriasis vulgaris XR CHEST 2 VIEWS Routine 07/06/2025 11:0 9 AM EST Morbid obesity with BMI of 45.0-49.9, adult (CMS/HCC V24, CMS/HCC V28) ECG 12-LEAD Routine 07/06/2025 10:53 AM EST Morbid obesity with BMI of 45.0-49.9, adult (CMS/HCC V24, CMS/HCC V28) RECHECK ABORH Routine 07/06/2025 10:44 AM EST Morbid obesity with BMI of 45.0-49.9, adult (CMS/HCC V24, CMS/HCC V28) CBC WITH AUTO DIFFERENTIAL Routine 07/06/2025 10:44 AM EST Morbid obesity with BMI of 45.0-49.9, adult (CMS/HCC V24, CMS/HCC V28) CBC AND DIFFERENTIAL Routine 07/06/2025 10:44 AM EST Morbid obesity with BMI of 45.0-49.9, adult (CMS/HCC V24, CMS/HCC V28) COMPREHENSIVE METABOLIC PANEL Routine 07/06/2025 10:44 AM EST Morbid obesity with BMI of 45.0-49.9, adult ([facility] V24, [facility] V28) TYPE AND SCREEN Routine 07/06/2025 10:44 AM EST Morbid obesity with BMI of 45.0-49.9, adult ([facility] V24, [facility] V28) HEMOGLOBIN A1C Routine 07/20/2024 8:33 AM EST Morbid obesity ([facility] V24, [facility] V28) LIPID PANEL WITH REFLEX TO DIRECT LDL Routine 07/20/2024 8:33 AM EST Morbid obesity ([facility] V24, [facility] V28) HM URINE ALBUMIN CREATININE RATIO Routine 02/26/2014 from Last 3 Months or Most Recently Relevant to Health Maintenance Results * (ABNORMAL) POCT Glucose, blood (07/17/2025 11:14 AM EST) Only the most recent of7 resultswithin the time period is included. Pathologist [facility] Glucose POCT 125(H) 70 - 100 mg/dL 07/17/2025 11:14 AM EST [facility] Blood Capillary blood specimen / Unknown 07/17/2025 11:14 AM EST 07/17/2025 11:15 AM EST us Gosia Stoner MD LAB POINT OF CA RE TEST DOCKED DEVICE UNSOLICITED RESULTS Final Result [facility]) [facility] [address] [place] [address], [place] [phone] * (ABNORMAL) CBC auto differential (07/17/2025 6:01 AM EST) Only the most recent of2 resultswithin the time period is included. WBC 10.7 4.8 - 10.8 K/[facility] LAB HEMETOLOGY METHOD 07/17/2025 7:09 AM [facility] RBC 4.50 3.80 - 4.80 M/mcL LAB HEMETOLOGY METHOD 07/17/2025 7:09 AM [facility] Hemoglobin 12.6 11.5 - 16.0 g/dL LAB HEMETOLOGY METHOD 07/17/2025 7:09 AM [facility] Hematocrit 39.2 35.0 - 47.0 % LAB HEMETOLOGY METHOD 07/17/2025 7:09 AM [facility] MCV 86.3 79.0 - 98.0 FL LAB HEMETOLOGY METHOD 07/17/2025 7:09 AM [facility] MCH 27.8 27.0 - 32.0 pcg LAB HEMETOLOGY METHOD 07/17/2025 7:09 AM [facility] MCHC 32.1 32.0 - 37.0 g/dL LAB HEMETOLOGY METHOD 07/17/2025 7:09 AM [facility] RDW 13.9 11.0 - 15.0 % LAB HEMETOLOGY METHOD 07/17/2025 7:09 AM [facility] Platelets 294 130 - 400 K/mcL LAB HEMETOLOGY METHOD 07/17/2025 7:09 AM [facility] MPV 9.1 7.0 - 11.0 FL LAB HEMETOLOGY METHOD 07/17/2025 7:09 AM [facility] NRBC 0.0 <1.0 % LAB HEMETOLOGY METHOD 07/17/2025 7:09 AM [facility] NRBC Absolute 0.00 <0.10 K/mcL LAB HEMETOLOGY METHOD 07/17/2025 7:09 AM [facility] Neutrophils Relative 74.7 % LAB HEMETOLOGY METHOD 07/17/2025 7:09 AM [facility] Lymphocytes Relative 18.9 % LAB HEMETOLOGY METHOD 07/17/2025 7:09 AM [facility] Monocytes Relative 5.0 % LAB HEMETOLOGY METHOD 07/17/2025 7:09 AM [facility] Eosinophils Relative 0.2 % LAB HEMETOLOGY METHOD 07/17/2025 7:09 AM [facility] Basophils Relative 0.5 % LAB HEMETOLOGY METHOD 07/17/2025 7:09 AM [facility] Immature Granulocytes Relative 0.7 % LAB HEMETOLOGY METHOD 07/17/2025 7:09 AM [facility] Neutrophils Absolute 8.00(H) 1.50 - 7.00 K/mcL LAB HEMETOLOGY METHOD 07/17/2025 7:09 AM [facility] Lymphocytes Absolute 2.02 1.00 - 5.00 K/mcL LAB HEMETOLOGY METHOD 07/17/2025 7:09 AM [facility] Monocytes Absolute 0.53 0.20 - 1.00 K/mcL LAB HEMETOLOGY METHOD 07/17/2025 7:09 AM [facility] Eosinophils Absolute 0.02 0.00 - 0.50 K/mcL LAB HEMETOLOGY METHOD 07/17/2025 7:09 AM [facility] Basophils Absolute 0.05 0.00 - 0.20 K/mcL LAB HEMETOLOGY METHOD 07/17/2025 7:09 AM [facility] Immature Granulocytes Absolute 0.07(H) 0.00 - 0.03 K/mcL LAB HEMETOLOGY METHOD 07/17/2025 7:09 AM [facility] Blood Venous blood specimen / Unknown Venipuncture / Unknown 07/17/2025 6:01 AM EST 07/17/2025 6:16 AM EST us Elyse RAYGOZA LAB BLOOD ORDERABLES Fin al Result [facility] [address] [place] [address], [place] [phone] * Phosphorus (07/17/2025 6:01 AM EST) Pathologist [facility] Phosphorus 3.6 2.5 - 4.5 mg/dL 07/17/2025 7:23 AM EST [facility] Blood Venous blood specimen / Unknown Venipuncture / Unknown 07/17/2025 6:01 AM EST 07/17/2025 6:16 AM EST Elyse RAYGOZA LAB BLOOD ORDERABLES Fin al Result Performing Organization Address [facility]/ZIP Co de Phone Number [facility] [address] [place] [address], [place] [phone] * Magnesium (07/17/2025 6:01 AM EST) Pathologist [facility] Magnesium 2.1 1.9 - 2.6 mg/dL 07/17/2025 7:22 AM EST [facility] Blood Venous blood specimen / Unknown Venipuncture / Unknown 07/17/2025 6:01 AM EST 07/17/2025 6:16 AM EST Elyse RAYGOZA LAB BLOOD ORDERABLES Fin al Result Performing Organization Address [facility]/ZIP Co de Phone Number [facility] [address] [place] [address], [place] [phone] * Basic metabolic panel (07/17/2025 6:01 AM EST) Sodium 136 133 - 145 mmol/L 07/17/2025 7:21 AM EST [facility] Potassium 4.5 3.5 - 5.5 mmol/L 07/17/2025 7:21 AM EST [facility] Chloride 99 96 - 110 mmol/L 07/17/2025 7:21 AM [facility] CO2 27 21 - 32 mmol/L 07/17/2025 7:21 AM [facility] Anion Gap 10 3 - 11 07/17/2025 7:21 AM [facility] Glucose 98 70 - 100 mg/dL 07/17/2025 7:21 AM [facility] BUN 16 5 - 25 mg/dL 07/17/2025 7:21 AM [facility] Creatinine 0.67 0.50 - 1.10 mg/dL 07/17/2025 7:21 AM [facility] eGFR 107 >=60 mL/min/1. 73m2 07/17/2025 7:21 AM [facility] Comment:Calculation based on the Chronic Kidney Disease Epidemiology Collaboration (CKD-EPI) equation refit without adjustment for race. BUN/Creatinine Ratio 23.9 07/17/2025 7:21 AM [facility] Calcium 8.7 8.5 - 10.5 mg/dL 07/17/2025 7:21 AM [facility] Blood Venous blood specimen / Unknown Venipuncture / Unknown 07/17/2025 6:01 AM EST 07/17/2025 6:16 AM EST us Elyse RAYGOZA LAB BLOOD ORDERABLES Fin al Result [facility] [address] [place] [address], * Tissue exam (07/16/2025 10:47 AM EST) Final Diagnosis A. Stomach, partial stomach, sleeve gastrectomy: - Portion of stomach with no specific pathologic changes. 07/19/2025 4:18 PM EST [facility] at 1618 EST Gross Description A. Stomach, partial stomach: Labeled stomach . Received in formalin is a 21 x 4.5 x 3 cm portion of stomach with an irregular staple line. The serosa is camp-pink, smooth and glistening with minimal attached adipose tissue. The gastric lumen contains bloody mucoid material. The mucosa is camp-pink to red, with unremarkable rugal folds. The wall (muscularis) is uniform in thickness and averages 0.2 cm. The margin adjacent to the staple lines is inked black. Resistor Tester sections are submitted in one cassette, including a perpendicular section to the margin and random stomach, three pieces. ALEKSANDR 07/19/2025 4:18 PM EST [facility] Disclaimer Unless otherwise specified, all tissue is 10% NB formalin fixed and paraffin embedded. 07/19/2025 4:18 PM EST [facility] Tissue Stomach structure / Unknown 07/16/2025 10:47 AM EST 07/16/2025 11:36 AM EST us Gosia Stoner MD LAB PATHOLOGY ORDERABLE S Final Result [facility]) [facility] [address] [place] [address], * TH AN ENDOTRACHEAL(NO CHARGE) (07/16/2025 9:21 AM EST) Narrative Lima Marx CRNA - 07/16/2025 9:21 AM EST Lima Marx CRNA 07/16/2025 9:22 AM General Information and Staff Patient location during procedure: OR Performed by: Lima Marx CRNA Authorized by: Allan Silver DO Intubation Additional Comments Gauze bite block placed. Difficult airway Reason: elective Final Airway Details Successful airway: ETT Successful intubation technique: direct laryngoscopy Blade: Esteban Blade size: #3 Cormack-Lehane Classification: grade I - full view of glottis Placement verified by: chest auscultation and capnometry Measured from: lips Final airway type: endotracheal airway Indications and Patient Condition Indications for airway management: anesthesia Preoxygenated: yesSoft Tissue Damage: No Dentition Unchanged: Yes Patient position: ramp Mask difficulty assessment: 1 - vent by mask Allan Silver DO ANESTHESIA ORDERABLES Final Result * Interferon gamma interpretation (07/12/2025 12:23 PM EST) [facility] Signature Quantiferon Plus Interpretation Negative Negative LAB CHEMISTRY METHOD 07/13/2025 10:55 AM EST [facility] Blood Venous blood specimen / Unknown Venipuncture / Unknown 07/12/2025 12:23 PM EST 07/12/2025 12:23 PM EST Giselle RAYGOZA LAB BLOOD ORDERABLES Final Result Performing Organization Address City/[facility]/ZIP Co de Phone Number [facility] [address] [place] [address], * Interferon gamma antigen 2 (07/12/2025 12:23 PM EST) Blood Venous blood specimen / Unknown Venipuncture / Unknown 07/12/2025 12:23 PM EST 07/12/2025 12:23 PM EST Giselle RAYGOZA LAB BLOOD ORDERABLES Final Result Performing Organization Address City/[facility]/ZIP Co de Phone Number [facility] [address] [place] [address], [place] [phone] * Interferon gamma antigen 1 (07/12/2025 12:23 PM EST) Blood Venous blood specimen / Unknown Venipuncture / Unknown 07/12/2025 12:23 PM EST 07/12/2025 12:23 PM EST Giselle RAYGOZA LAB BLOOD ORDERABLES Final Result Performing Organization Address City/[facility]/ZIP Co de Phone Number [facility] [address] [place] [address], [place] [phone] * Interferon gamma mitogen (07/12/2025 12:23 PM EST) Blood Venous blood specimen / Unknown Venipuncture / Unknown 07/12/2025 12:23 PM EST 07/12/2025 12:23 PM EST [facility]LOOD ORDERABLES Final Result Performing Organization Address [facility] Co de Phone Number [facility] [address] [place] [address], * Interferon gamma NIL (07/12/2025 12:23 PM EST) Blood Venous blood specimen / Unknown Venipuncture / Unknown 07/12/2025 12:23 PM EST 07/12/2025 12:23 PM EST [facility] LAB BLOOD ORDERABLES Final Result Performing Organization Address [facility] Phone Number [facility] [address] [place] [address], * XR Chest 2 Views (07/06/2025 11:09 AM EST) Anatomical Region Laterality Modality Body Radiographic Lary ging 07/06/2025 11:3 0 AM EST Impressions 07/06/2025 11:31 AM EST Normal examination. Code 83479 -------- FINAL REPORT -------- Dictated By: Steven Woods Dictated Date: 07/06/2025 11:30 ET Assigned Physician: Steven Woods Reviewed and Electronically Signed By: Steven Woods Signed Date: 07/06/2025 11:31 ET Workstation ID: [id number] Transcribed By: Self Edit Transcribed Date: 07/06/2025 11:30 ET Narrative 07/06/2025 11:31 AM EST HISTORY: The patient is a 50-year-old female undergoing evaluation prior to bariatric surgery. FINDINGS: PA and lateral radiographs of the chest demonstrate normal appearance of the bony structures. The cardiac and mediastinal contours are within normal limits. The lungs and costophrenic angles are clear. Procedure Note Steven Woods MD - 07/06/2025 HISTORY: The patient is a 50-year-old female undergoing evaluation priorto bariatric surgery. FINDINGS: PA and lateral radiographs of the chest demonstrate normalappearance of the bony structures. The cardiac and mediastinal contoursare within normal limits. The lungs and costophrenic angles are clear. IMPRESSION: Normal examination. Code 65243 -------- FINAL REPORT -------- Dictated By: Steven Woods Dictated Date: 07/06/2025 11:30 ET Assigned Physician: Steven Woods Reviewed and Electronically Signed By: Steven Woods Signed Date: 07/06/2025 11:31 ET Workstation ID: [id number] Transcribed By: Self Edit Transcribed Date: 07/06/2025 11:30 ET Gosia Stoner MD IMG XR PROCEDURES Final Result * ECG 12 lead (07/06/2025 10:53 AM EST) Ventricular Rate ECG 91 BPM GEMUSE Atrial Rate 91 BPM GEMUSE P-R Interval 176 ms GEMUSE QRS Duration 98 ms GEMUSE Q-T Interval 366 ms GEMUSE QTc 450 ms GEMUSE P Wave [place] 36 degrees GEMUSE R [place] -18 degrees GEMUSE T [place] 40 degrees GEMUSE ECG Interpretation Normal sinus rhythm Low voltage QRS Borderline ECG No previous ECGs available Confirmed by SUNNY DANIEL ([id number]) on 07/06/2025 7:07:46 PM GEMUSE 07/06/2025 10:5 3 AM EST 07/06/2025 7:07 PM EST Gosia Stoner MD ECG ORDERABLES Final R esult GEMUSE * Recheck blood typing (07/06/2025 10:44 AM EST) ABO Group O 07/06/2025 1:02 PM EST [facility] Rh Type Positive 07/06/2025 1:02 PM EST [facility] Blood Venous blood specimen / Unknown Venipuncture / Unknown 07/06/2025 10:44 AM EST 07/06/2025 11:39 AM EST us Gosia Stoner MD LAB BLOOD BANK TEST ORD ERABLES Final Result Performing Organization Address City/[facility]/ZIP Co de Phone Number [facility] [address] [place] [address], [place] [phone] * Type and screen (07/06/2025 10:44 AM EST) ABO Group O 07/06/2025 12:40 PM EST [facility] Rh Type Positive 07/06/2025 12:40 PM EST [facility] Antibody Screen Negative 07/06/2025 12:40 PM EST [facility] Blood Venous blood specimen / Unknown Venipuncture / Unknown 07/06/2025 10:44 AM EST 07/06/2025 11:39 AM EST us Gosia Stoner MD LAB BLOOD BANK TEST ORD ERABLES Final Result Performing Organization Address City/[facility]/ZIP Co de Phone Number [facility] [address] [place] [address], [place] [phone] * (ABNORMAL) CMP (07/06/2025 10:44 AM EST) Sodium 135 133 - 145 mmol/L 07/06/2025 12:40 PM EST [facility] Potassium 4.4 3.5 - 5.5 mmol/L 07/06/2025 12:40 PM EST [facility] Chloride 96 96 - 110 mmol/L 07/06/2025 12:40 PM EST [facility] CO2 28 21 - 32 mmol/L 07/06/2025 12:40 PM EST [facility] Anion Gap 11 3 - 11 07/06/2025 12:40 PM [facility] Glucose 177(H) 70 - 100 mg/dL 07/06/2025 12:40 PM [facility] BUN 15 5 - 25 mg/dL 07/06/2025 12:40 PM [facility] Creatinine 0.98 0.50 - 1.10 mg/dL 07/06/2025 12:40 PM [facility] eGFR 71 >=60 mL/min/1. 73m2 07/06/2025 12:40 PM [facility] Comment:Calculation based on the Chronic Kidney Disease Epidemiology Collaboration (CKD-EPI) equation refit without adjustment for race. BUN/Creatinine Ratio 15.3 07/06/2025 12:40 PM [facility] Calcium 8.9 8.5 - 10.5 mg/dL 07/06/2025 12:40 PM [facility] AST (SGOT) 26 10 - 42 unit/L 07/06/2025 12:40 PM [facility] ALT (SGPT) 22 10 - 60 unit/L 07/06/2025 12:40 PM [facility] Alkaline Phosphatase 129(H) 42 - 121 unit/L 07/06/2025 12:40 PM [facility] Total Protein 7.7 6.0 - 8.0 g/dL 07/06/2025 12:40 PM [facility] Albumin 4.4 3.2 - 5.0 g/dL 07/06/2025 12:40 PM [facility] Total Bilirubin 0.6 0.0 - 1.4 mg/dL 07/06/2025 12:40 PM [facility] Blood Venous blood specimen / Unknown Venipuncture / Unknown 07/06/2025 10:44 AM EST 07/06/2025 11:39 AM EST us Gosia Stoner MD LAB BLOOD ORDERABLES Fi nal Result [facility] [address] [place] [address], [place] [phone] * (ABNORMAL) Lipid panel with reflex to direct LDL (07/20/2024 8:33 AM EST) Cholesterol 179 0 - 200 mg/dL LAB CHEMISTRY METHOD 07/20/2024 11:24 AM EST [facility] Triglycerides 89 0 - 150 mg/dL LAB CHEMISTRY METHOD 07/20/2024 11:24 AM EST [facility] HDL 53 >=40 mg/dL LAB CHEMISTRY METHOD 07/20/2024 11:24 AM [facility] LDL Calculated 108(H) 0 - 100 mg/dL LAB CHEMISTRY METHOD 07/20/2024 11:24 AM EST [facility] VLDL Cholesterol Francisco J 17.8 mg/dL LAB CHEMISTRY METHOD 07/20/2024 11:24 AM EST [facility] Non HDL Chol. (LDL+VLDL) 126 <145 mg/dL LAB CHEMISTRY METHOD 07/20/2024 11:24 AM [facility] Chol/HDL Ratio 3.4 0.0 - 4.4 LAB CHEMISTRY METHOD 07/20/2024 11:24 AM [facility] Blood Venous blood specimen / Unknown Venipuncture / Unknown 07/20/2024 8:33 AM EST 07/20/2024 8:33 AM EST us Gosia Stoner MD LAB BLOOD ORDERABLES Fi nal Result [facility] [address] [place] [address], [place] [phone] * (ABNORMAL) Hemoglobin A1c (07/20/2024 8:33 AM [...] [facility] [address] [place] [address], [place] [phone] * HM Urine Albumin Creatinine Ratio (02/26/2014) Pathologist [facility]ly [facility] Urine Albumin Creatinine Ratio Abstracted Historical Provider HEALTH MAINTENANCE Final Result from Last 3 Months or Most Recently Relevant to Health Maintenance Insurance [employer] Advance Directives * Full Code - Default (Latest Code Status on File) Date Activated Date Inactivated Comments 07/16/2025 6:54 AM 07/17/2025 3:54 PM This is or alberta is used when code status has not been discussed with the patient, or code status is otherwise unknown/unconfirmed To update the patient's code status, place a code status order. Do not modify or discontinue any currently active code status orders. Care Teams Numerical Control Machine Machinist Relationship Specialty Start Date End Date Nicole Padron PA [address] [facility] [place] [address] PCP - General Family Medicine 07/16/25
--- OUTSIDE RECORDS SUMMARY | 2025-07-27 16:45 | XMS_ITS | Encounter Summary ---
Author Organization [email or web address] Address [address] [place] [address] Care Team Providers Care Injection Wax Molder Name Role Phone Braulio Carbajal MD Primary Care Prov ider Reason for Visit * Reason Onset Date Comments Med Refill 02/28/2023 Encounter Details Date Type Department Care Team (Late st Contact Info) Description 02/28/2023 Refill [facility] [address] [place] [address] Braulio Carbajal MD [address] [place] [address] Social History Tobacco Use Types Packs/Day Years [...] on filedocumented in this encounter Care Teams Injection Wax Molder Relationship Specialty Start Date End Date Braulio Carbajal MD [address] [place] [address] PCP - General Internal Medicine 12/14/19 04/28/24 documented as of this encounter
--- OUTSIDE RECORDS SUMMARY | 2025-07-27 16:45 | XMS_ITS | Encounter Summary ---
Author Organization [facility] Address [address] [place] [address] Care Team Providers Care Medical Records Secretary Name Role Phone Nicole Padron MD Primary Care Provider [phone] Encounter Details Date Type Department Care Team (Late Contact Info) Description 03/30/2025 Orders Only [address] [phone] Nicole Padron MD [address] [place] [id number] Social History Tobacco Use Types Packs/Day Years [...] AM EDT CPE - Comprehensive Physical Exam [address] [phone] Bc Buckley, MAXIMO [address] [place] [address] CPE documented as of this encounter Goals Goal Patient Goal Type Associated Problems Recent Progress Patient-Stated? Author HEMOGLOBIN A1C % < 7 Result Component 7.6(03/02/20 10:42 AM EDT) No Bc Buckley DNP Note: [...] of this encounter Procedures * Due to [place] [employer] law, this organization might not be sharing negative HIV tests. Procedure Name Priority Date/Time Associated Diagnosis Comments CULTURE, URINE, ROUTINE Routine 03/30/2025 12:26 PM EDT Dysuria URINALYSIS, COMPLETE INCLUDES DIPSTICK AND MICROSCOPIC Routine 03/30/2025 12:26 PM EDT Dysuria documented in this encounter Results * Due to [place] [employer] law, this organization might not be sharing [...] 1:20 AM EDT Narrative Resulting Agency Comment [id number] Nicole Padron MD LAB SAME DAY RESULT Final Result [facility] [address] [place] [address] * (ABNORMAL) CULTURE, URINE, ROUTINE (03/30/2025 12:26 PM EDT) Bacteria culture (Urine) SEE NOTE(A) [facility] Comment: CULTURE, URINE, ROUTINE Micro Number: [id number] Test Status: Final Specimen Source: Not given [...] 1:20 AM EDT Narrative Resulting Agency Comment [id number] Nicole Padron MD LABORATORY Final Result [email or web address] [address] [place] [address] documented in this encounter Visit Diagnoses Diagnosis Dysuria documented in this encounter Care Teams Medical Records Secretary Relationship Specialty Start Date End Date Nicole Padron MD [address] [facility] [place] [address] PCP - General Family Medicine 10/28/24 documented as of this encounter
--- OUTSIDE RECORDS SUMMARY | 2025-07-27 16:45 | XMS_ITS | Encounter Summary ---
Author Organization [employer] Address [address] [facility] [address] [place] [address] Care Team Providers Care Mogul Operator Name Role Phone Braulio Carbajal MD Primary Care Prov ider Encounter Details Date Type Department Care Team (Late st Contact Info) Description 08/17/2022 Orders Only [facility] [address] [place] [address] Braulio Carbajal MD [address] [place] [address] Type 2 diabetes mellitus without complication, unspecified whether chcf insulin use ([facility]) (Primary Dx) Social History Tobacco Use [...] 2 diabetes mellitus without complication, unspecified whether terminal carman insulin use (CMS/HCC) HEMATOXYLIN AND EOSIN STAIN Routine 01/09/2023 8:38 AM EDT Type 2 diabetes mellitus without complication, unspecified whether chcf insulin use (CMS/HCC) COVID-19 ID NOW (DUPREE) Routine 01/08/2023 2:18 PM EDT Type 2 diabetes mellitus without complication, unspecified whether terminal carman insulin use (CMS/HCC) TYPE AND SCREEN Routine 01/01/2023 10:22 AM EDT Type 2 diabetes mellitus without complication, unspecified whether chcf insulin use (CMS/HCC) VITAMIN D,25-OH,TOTAL,IA Routine 01/01/2023 10:20 AM EDT Type 2 diabetes mellitus without complication, unspecified whether chcf insulin use (CMS/HCC) TSH W/REFLEX TO FT4 Routine 01/01/2023 1 0:20 AM EDT Type 2 diabetes mellitus without complication, unspecified whether terminal carman insulin use (CMS/HCC) CBC WITH AUTO DIFFERENTIAL Routine 01/01/2023 10:20 AM EDT Type 2 diabetes mellitus without complication, unspecified whether chcf insulin use (CMS/HCC) ZINC Routine 01/01/2023 10:20 AM EDT Type 2 diabetes mellitus without complication, unspecified whether terminal carman insulin use (CMS/HCC) VITAMIN A Routine 01/01/2023 10:20 AM EDT Type 2 diabetes mellitus without complication, unspecified whether terminal carman insulin use (CMS/HCC) APTT Routine 01/01/2023 10:20 AM EDT Type 2 diabetes mellitus without complication, unspecified whether chcf insulin use (CMS/HCC) PROTHROMBIN TIME-INR Routine 01/01/2023 10:20 AM EDT Type 2 diabetes mellitus without complication, unspecified whether terminal carman insulin use (CMS/HCC) C-REACTIVE PROTEIN Routine 01/01/2023 10 :20 AM EDT Type 2 diabetes mellitus without complication, unspecified whether terminal carman insulin use (CMS/HCC) VITAMIN B1 Routine 01/01/2023 10:20 AM EDT Type 2 diabetes mellitus without complication, unspecified whether chcf insulin use (CMS/HCC) PTH, INTACT WITHOUT CALCIUM Routine 01/01/2023 10:20 AM EDT Type 2 diabetes mellitus without complication, unspecified whether terminal carman insulin use (CMS/HCC) HEMOGLOBIN A1C Routine 01/01/2023 10:20 AM EDT Type 2 diabetes mellitus without complication, unspecified whether terminal carman insulin use (CMS/HCC) FERRITIN Routine 01/01/2023 10:20 AM EDT Type 2 diabetes mellitus without complication, unspecified whether terminal carman insulin use (CMS/HCC) VITAMIN B12 Routine 01/01/2023 10:20 AM EDT Type 2 diabetes mellitus without complication, unspecified whether terminal carman insulin use (CMS/HCC) LIPID PANEL, STANDARD Routine 01/01/2023 10:20 AM EDT Type 2 diabetes mellitus without complication, unspecified whether chcf insulin use (CMS/HCC) COMPREHENSIVE METABOLIC PANEL Routine 01/01/2023 10:20 AM EDT Type 2 diabetes mellitus without complication, unspecified whether chcf insulin use (CMS/HCC) GLUCOSE, WHOLE BLOOD Routine 11/13/2022 1:31 PM EDT Type 2 diabetes mellitus without complication, unspecified whether chcf insulin use (CMS/HCC) HEMOGLOBIN A1C Routine 11/13/2022 1:14 PM EDT Type 2 diabetes mellitus without complication, unspecified whether chcf insulin use (CMS/HCC) documented in this encounter Results * CA 19-9 (01/09/2023 10:38 AM EDT) CA 19-9 14 <34 U/mL [facility] Comment:The CA19-9 result ma y be increased on average 14% - 20%,relative to results previously obtained with this methoddue to a recent calibrator adjustment made in Octobery the reagent adobe block maker. In the low range for thisassay (< [...] or absence of disease.THIS TEST WAS PERFORMED AT:[email or web address] [place] [id number] LONDONO MD 01/09/2023 10:3 8 AM EDT 01/09/2023 10:42 AM EDT [facility] External Provider LAB BLO OD ORDERABLES Final Result [facility] [address] [place] [phone] * Hematoxylin and Eosin Stain (01/09/2023 8:38 AM EDT) 01/09/2023 8:38 AM EDT 01/09/2023 8:53 AM EDT Narrative [facility] - 01/14/2023 1:28 PM EDT ----- ------- Name: Julia López Age/Sex: 47/F : 1975 [facility]#: [id number] Unit#: [id number] Attend Dr: Darci Sanders MD Re01/09/23 Status: [facility] Location: [facility] Disch: ----- ------- SPEC : [id number] RECD: 01/09/23 STATUS: HERMINIO CROCKER NUM: [id number] PUSHPA: 01/09/[address] [facility] [address]: Darci Sanders MD ENTERED: 01/09/23 [...] Julia López Age/Sex: 47/F : 1975 Unit#: [id number] Attend Dr: Darci Sanders MD Re01/09/23 Status: [facility] Location: [facility] Disch: ----- ------- SPEC : [id number] RECD: 01/09/23 STATUS: HERMINIO OBI NUM: [id number] PUSHPA: 01/09/[address] [facility] [address]: Darci Sanders MD ENTERED: 01/09/23 [...] on B2. Copies To: Braulio Carbajal MD [address] [place] [phone] Darci Sanders MD [address] [place] [address], [address] [place] [address] ----- ------- Signed (signature on file) Shaun Lebron MD 01/14/23 1328 ----- ------- END OF REPORT [facility] External Provider LAB BLO OD ORDERABLES Final Result [facility] [address] [place] [phone] * COVID-19 ID NOW (Fitmo) (01/08/2023 2:18 PM EDT) IDNOW SERIAL# [id number] [facility] COVID-19 TEST [...] infection with other viruses.Testing facilities [facility] the [facility] are required to report all positive [...] use by authorized laboratories.Testing performed on the [employer] ID NOW utilizing NAAT. 01/08/2023 2:18 PM EDT 01/08/2023 2:32 PM EDT [facility] Exter nal Provider LAB MOLECULAR DIAGNOSTICS ORDERABLES Final Result Performing Organization Address City/[facility] de Phone Number [facility] [address] [place] [phone] * Type and screen (01/01/2023 10:22 AM EDT) Pathologist [facility] [place] Blood Type OP [facility] Antibody Screen NEGATIVE [facility] 01/01/2023 10:2 2 AM EDT 01/01/2023 11:04 AM EDT Narrative [facility] - 01/01/2023 11:55 AM EDT Spec expiration changed by JAMESON on 01/01/23Reason: For SURGERYNURSING:Call Blood Bank (ext. [phone]) to band patient on admission.Type and Screen in effect until 2300 on 01/09/23Witnessed by EDELMIRA us [facility] External Provider LAB BLO OD BANK TEST ORDERABLES Final Result Performing Organization Address [facility] de Phone Number [facility] [address] [place] [phone] * (ABNORMAL) Vitamin A (01/01/2023 10:20 AM EDT) Pathologist [facility] [place] Vitamin A (Retinol) 32(A) 38 - 98 mcg/dL [facility] Comment:Vitamin supplementat ion within 24 hours prior toblood draw may affect the accuracy of the results.This test was developed and its analytical performancecharacteristics have been determined by [employer] [place], [place]. It hasnot been cleared or approved by the U.S. Food and DrugAdministration. This assay has been validated pursuantto the CLIA regulations and is used for clinicalpurposes.THIS TEST WAS PERFORMED AT:[employer] [place] [phone] BARRY MD,PHD 01/01/2023 10:2 0 AM EDT 01/01/2023 10:20 AM EDT [facility] External Provider LAB BLO OD ORDERABLES Final Result Performing Organization Address [facility] Co de Phone Number [facility] [address] [place] [phone] * (ABNORMAL) Vitamin B1 (01/01/2023 10:20 AM EDT) Vitamin B1 <6(A) 8 - 30 nmol/L [facility] Comment:Vitamin supplementat ion within 24 hours prior toblood draw may affect the accuracy of the results.This test was developed and its analytical performancecharacteristics have been determined by [place], [place]. It hasnot been cleared or approved by the .S. Food and DrugAdministration. This assay has been validated pursuantto the CLIA regulations and is used for clinicalpurposes.THIS TEST WAS PERFORMED AT:[employer] [address] [id number] BARRY MD,PHD 01/01/2023 10:2 0 AM EDT 01/01/2023 10:20 AM EDT [facility] External Provider LAB BLO OD ORDERABLES Final Result Performing Organization Address [facility] de Phone Number [facility] [address] [place] [phone] * Zinc (01/01/2023 10:20 AM EDT) Zinc 84 60 - 130 mcg/dL [facility] Comment:This test was develo ped and its analytical performancecharacteristics have been determined by [place], [place]. It hasnot been cleared or approved by the U.S. Food and DrugAdministration. This assay has been validated pursuantto the CLIA regulations and is used for clinicalpurposes.THIS TEST WAS PERFORMED AT:[employer] [facility] [place] [address]UDBDFULNICOLA BARRY MD,PHD 01/01/2023 10:2 0 AM EDT 01/01/2023 10:20 AM EDT [facility] External Provider LAB BLO OD ORDERABLES Final Result Performing Organization Address [facility] Co de Phone Number [facility] [address] [place] [phone] * PTH, Intact Without Calcium (01/01/2023 10:20 AM EDT) PTHI 32 16 - 77 pg/mL [facility] Comment:Interpretive Guide I ntact PTH Calcium -------Normal Parathyroid Normal NormalHypoparathyroidism Low or Low Normal LowHyperparathyroidism Primary Normal or High High Secondary High Normal or Low Tertiary High HighNon-Parathyroid Hypercalcemia Low or Low Normal High Calcium (PTHI) 9.9 8.6 - 10.2 mg/dL [facility] Comment:THIS TEST WAS PERFOR MED AT:[email or web address] [place] [id number] LONDONO MD 01/01/2023 10:2 0 AM EDT 01/01/2023 10:20 AM EDT [facility] External Provider LAB BLO OD ORDERABLES Final Result Performing Organization Address [facility] Co de Phone Number [facility] [address] [place] [phone] * Lipid Panel, Standard (01/01/2023 10:20 AM EDT) Triglycerides 73 mg/dL [facility] Comment:Desirable Triglyceri de: less than 150 mg/dLBorderline High Triglyceride 150-199 mg/dLHigh Triglyceride: 200-499 mg/dLVery High Triglyceride: greater than or equal to 5OO mg/dL Cholesterol 101 mg/dL [facility] Comment:Desirable Cholestero l: less than 200 mg/dLBorderline High Cholesterol: 200-239 mg/dLHigh Cholesterol: greater than 239 mg/dL LDL Cholesterol Calculated 53 mg/dl [facility] Comment:Desirable LDL: less than 100 mg/dLNear Optimal/Above Optimal LDL: 110- 129 mg/dLBorderline High LDL: 130-159 mg/dLHigh LDL: 160-189 mg/dLVery High LDL: greater than or equal to 190 mg/dL HDL Cholesterol 34 mg/dL [facility] Comment:Desirable HDL: great er than 40 mg/dL Note: This HDL assay may give artificially low results in patients with liver disease. 01/01/2023 10:2 0 AM EDT 01/01/2023 10:20 AM EDT [facility] External Provider LAB BLO OD ORDERABLES Final Result Performing Organization Address City/[facility]/ZIP Co de Phone Number [facility] [address] [place] [phone] * (ABNORMAL) C-reactive Protein (01/01/2023 10:20 AM EDT) C Reactive Protein 2.54(H) < or = 0.50 mg/dL [facility] 01/01/2023 10:2 0 AM EDT 01/01/2023 10:20 AM EDT [facility] External Provider LAB BLO OD ORDERABLES Final Result Performing Organization Address City/[facility]/ZIP Co de Phone Number [facility] [address] [place] [phone] * (ABNORMAL) Comprehensive Metabolic Panel (01/01/2023 10:20 AM EDT) Sodium 136 135 - 145 mmol/L [facility] Potassium 4.7 3.3 - 5.1 mmol/L [facility] Chloride 99 96 - 108 mmol/L [facility] Carbon Dioxide 28 22 - 29 mmol/L [facility] Anion Gap 14 12 - 20 [facility] Urea Nitrogen (BUN) 13 9 - 16 mg/dL [facility] Creatinine, Serum 0.80 0.5 - 1.4 mg/dL [facility] Creatinine Clr Calc Pharmacy 134.3 [facility] Comment:Provided height and weight: 175.26 cm,142.882 kg.eGFR (calculated from the MDRD study equation) and eCrCl(calculated from the Cockcroft-Gault equation) are based ondifferent parameters and may not yield comparable results.If eCrCl result is absurd, please check patient'sheight/weight. Estimated Glomerular Filt Rate >60 [facility] Comment:NOTE: For -Am erican individuals, multiply the result by 1.210.Chronic Kidney Disease: Estimated GFR < 60 mL/min/1.79r8Nsyuwg Kidney Disease: Estimated GFR < 15 mL/min/1.73m2 Glucose 141(H) 60 - 115 mg/dL [facility] Calcium 10.0 8.4 - 10.2 mg/dL [facility] Bilirubin, Total 0.9 0.0 - 1.0 mg/dL [facility] Aspartate Amino Transferase 18 5 - 31 U/L [facility] Alanine Aminotransferase 14 0 - 31 U/L [facility] Total Protein 7.9 6.5 - 8.0 g/dL [facility] Albumin Level 4.0 3.5 - 5.0 g/dL [facility] Alkaline Phosphatase 85 39 - 117 U/L [facility] 01/01/2023 10:2 0 AM EDT 01/01/2023 10:20 AM EDT [facility] External Provider LAB BLO OD ORDERABLES Final Result [facility] [address] [place] [phone] * TSH W/Reflex to FT4 (01/01/2023 10:20 AM EDT) TSH reflex Free T4 1.39 0.32 - 4.0 uIU/mL [facility] 01/01/2023 10:2 0 AM EDT 01/01/2023 10:20 AM EDT [facility] External Provider LAB BLO OD ORDERABLES Final Result Performing Organization Address City/[facility]/ZIP Co de Phone Number [facility] [address] [place] [phone] * Vitamin D, 25-Hydroxy, Total, Immunoassay (01/01/2023 10:20 AM EDT) Vitamin D 25-OH Total 23.8 >30 ng/mL [facility] Comment:Health Based Referen ce Values*< 20 ng/mL Uydvogiml50-37 ng/mL Insufficient> 30 ng/mL Sufficient*Nay HASTINGS. N [...] 0 AM EDT 01/01/2023 10:20 AM EDT [facility] External Provider LAB BLO OD ORDERABLES Final Result Performing Organization Address [facility] Co de Phone Number [facility] [address] [place] [phone] * Vitamin B12 (01/01/2023 10:20 AM EDT) Vitamin B12 505 200 - 900 pg/mL [facility] Comment:NORMAL 200-900 PG/ML INDETERMINATE 160-199 PG/ML DEFICIENT < 160 PG/ML 01/01/2023 10:2 0 AM EDT 01/01/2023 10:20 AM EDT [facility] External Provider LAB BLO OD ORDERABLES Final Result Performing Organization Address [facility] Co de Phone Number [facility] [address] [place] [phone] * Ferritin (01/01/2023 10:20 AM EDT) Ferritin 192 10 - 250 ng/mL [facility] 01/01/2023 10:2 0 AM EDT 01/01/2023 10:20 AM EDT [facility] External Provider LAB BLO OD ORDERABLES Final Result Performing Organization Address [facility] de Phone Number [facility] [address] [place] [phone] * Hemoglobin A1c (01/01/2023 10:20 AM EDT) Hemoglobin A1c 6.8 % [facility] Comment:Hemoglobin A1C Refer ence Range Adults: 4.8 - 6.0 % Non diabetic: < 6.0 % Goal: < 7.0 %Additional Action Suggested: > 8.0 %Note: Hemoglobin A1c results are invalid for patients with abnormal amounts of HbF. Blood transfusions may impact the HbA1c concentration in the patient sample. Estimated Average Glucose 148 mg/dL [facility] Comment:eAG = Estimated ave rage glucose which is %A1C expressed asaverage glucose, using the formula of the O1O-OyamcmxDdovvic Glucose study (ADAG), Diabetes Care, Vol.31,#8,2007 01/01/2023 10:2 0 AM EDT 01/01/2023 10:20 AM EDT [facility] External Provider LAB BLO OD ORDERABLES Final Result Performing Organization Address [facility] de Phone Number [facility] [address] [place] [phone] * APTT (01/01/2023 10:20 AM EDT) Partial Thromboplastin Time 35.0 26.0 - 36.4 SEC [facility] 01/01/2023 10:2 0 AM EDT 01/01/2023 10:20 AM EDT [facility] External Provider LAB BLO OD ORDERABLES Final Result Performing Organization Address [facility] Phone Number [facility] [address] [place] [phone] * Prothrombin Time-INR (01/01/2023 10:20 AM EDT) [facility] Prothrombin Time 12.9 10.0 - 13.1 SEC [facility] INTERNATIONAL NORM RATIO 1.1 0.9 - 1.1 [facility] Comment:INTERNATIONAL NORMAL IZED RATIO (INR) [...] 0 AM EDT 01/01/2023 10:20 AM EDT [facility] External Provider LAB BLO OD ORDERABLES Final Result Performing Organization Address [facility] de Phone Number [facility] [address] [place] [phone] * (ABNORMAL) CBC auto differential (01/01/2023 10:20 AM EDT) White Blood Count 11.3(H) 4.8 - 10.8 X10*3/uL [facility] Red Blood Count 5.09 4.20 - 5.50 X10*6/uL [facility] Hemoglobin 13.8 12.0 - 16.0 g/dl [facility] Hematocrit 44.1 37.0 - 47.0 % [facility] Mean Corpuscular Volume 86.6 80.0 - 98.0 fL [facility] Mean Corpuscular Hemoglobin 27.1 27.0 - 33.0 pg [facility] Mean Corpuscular HGB Conc 31.3 31.0 - 35.0 g/dl [facility] Red Cell Distribution Width 14.3 11.0 - 16.0 % [facility] Platelet Count 376 160 - 400 X10*3/uL [facility] Mean Platelet Volume 9.2(L) 9.4 - 12.3 fL [facility] Neutrophils Percent Auto 66.0 45 - 73 % [facility] Imm Gran Pct Auto 0.8(H) 0.0 - 0.4 % [facility] Lymphocytes Percent Auto 25.1 20 - 40 % [facility] Monocytes Percent Auto 5.5 2 - 11 % [facility] Eosinophils Percent Auto 2.0 0 - 4 % [facility] Basophils Percent Auto 0.6 0 - 2 % [facility] NRBC Pct Auto 0.0 0.0 - 0.2 /100WBC [facility] Neutrophils Absolute Auto 7.4 2.0 - 8.3 x10*3/uL [facility] Imm Gran Abs Auto 0.09(H) 0.00 - 0.03 X10*3/uL [facility] Lymphocytes Absolute Auto 2.8 1.2 - 4.9 X10*3/uL [facility] Monocytes Absolute Auto 0.6 0.1 - 1.2 X10*3/uL [facility] Eosinophils Absolute Auto 0.2 0.0 - 0.4 X10*3/uL [facility] Basophils Absolute Auto 0.1 0.0 - 0.2 X10*3/uL [facility] NRBC Abs Auto 0.000 0.0 - 0.012 X10*3/uL [facility] 01/01/2023 10:2 0 AM EDT 01/01/2023 10:20 AM EDT [facility] External Provider LAB BLO OD ORDERABLES Final Result Performing Organization Address [facility] de Phone Number [facility] [address] [place] [phone] * (ABNORMAL) Glucose, Whole Blood (11/13/2022 1:31 PM EDT) Glucose, Whole Blood 196(H) 60 - 115 mg/dL [facility] Comment:METER #: [id number] 5Testing performed in the Endocrinology Department [address] , [address], [facility]. 11/13/2022 1:31 PM EDT 11/13/2022 1:34 PM EDT [facility] External Provider LAB BLO OD ORDERABLES Final Result Performing Organization Address [facility] de Phone Number [facility] [address] [place] [phone] * Hemoglobin A1c (11/13/2022 1:14 PM EDT) Hemoglobin A1c 7.4 % [facility] Comment:Hemoglobin A1C Refer ence Range Adults: 4.8 - 6.0 % Non diabetic: < 6.0 % Goal: < 7.0 %Additional Action Suggested: > 8.0 %Note: Hemoglobin A1c results are invalid for patients with abnormal amounts of HbF. Blood transfusions may impact the HbA1c concentration in the patient sample. Estimated Average Glucose 166 mg/dL [facility] Comment:eAG = Estimated ave rage glucose which is %A1C expressed asaverage glucose, using the formula of the R4Z-GlmfeqjBjapwhu Glucose study (ADAG), Diabetes Care, Vol.31,#8,Mar. 2007 11/13/2022 1:14 PM EDT 11/13/2022 1:14 PM EDT [facility] External Provider LAB BLO OD ORDERABLES Final Result [facility] [address] [place] [phone] documented in this encounter Visit Diagnoses Diagnosis Type 2 diabetes mellitus without complication, unspecified whether terminal carman insulin use- Primary documented in this encounter Care Teams Mogul Operator Relationship Specialty Start Date End Date Braulio Carbajal MD [address] [place] [phone] PCP - General Internal Medicine 12/14/19 04/28/24 documented as of this encounter
--- OUTSIDE RECORDS SUMMARY | 2025-07-27 16:45 | XMS_ITS | Continuity of Care Document ---
Author Organization [facility] Address [address] [facility] [address] [place] [address] Phone [phone] Social History Type Date Description Comments Sex Female Sex Unknown Medical Devices Description No Information Available Encounters Description No Information Available Assessments Description No Information Available Plan of Treatment No Information Available Functional Status Description No Information Available Mental Status Description No Information Available Referrals Description No Information Available
--- OUTSIDE RECORDS SUMMARY | 2025-07-27 16:45 | XMS_ITS | Clinical Summary ---
Author Organization [employer] Address [address] [facility] 7[address] [place] [address] Care Team Providers Care Medical Laboratory Scientist Name Role Phone Unavailable Primary Care Provider [...] whether joint terminal attack controller insulin use Inject 1.5 mg under the [...] the past 12 months, has t he Obeo, KDS, oil or water [employer] threatened to shut off services in your [...] whether joint terminal attack controller insulin use (CMS/HCC) ZZZ HISTORICAL HEPATITIS C [...] PM EDT Narrative 05/25/2024 4:12 PM EDT [facility] [address] [place], [place] [address] Mammography Report Signed Patient: Julia López MR#: [id number] : 1975 Acct:[id number] Age/Sex: 48 / F ADM Date: 05/25/24 Loc: HO.MAMMO Attending Dr: Ryan Prescott MD Ordering Physician: Ryan Prescott MD Results: 2Ben ign Findings Date of Service: 05/25/24 Follow Up: 1 Year From Orig inal Mammogram Procedure(s): MM tomosynthesis diagnostic BI Accession Number(s): [id number] cc: Braulio Carbajal MD; Ryan Prescott MD [...] MD 05/25/2024 04:09 PM EDT RP Workstation: [employer] Dictated By: Lorenzo Rueda MD Signed By: <Electronically signed by Lorenzo Rueda MD in OV> 05/25/24 1609 DD/ 1300 TD/TT: 05/25/24 1350 Clinical Quality Analyst: Procedure Note Donotuseinterpreter, Image - 05/25/2024 [facility] [address] [place] [address] Mammography Report Signed Patient: Yana López#: [id number] : 1975Acct:[id number] Age/Sex: 48 / FADM Date: 05/25/24 Loc: HO.MAMMO Attending Dr: Ryan Prescott MD Ordering Physician: Ryan Prescottesults: 2Ben ign Findings Date of Service: 05/25/24Follow Up: 1 Year From Orig inal Mammogram Procedure(s): MM tomosynthesis diagnostic BI Accession Number(s): [id number] cc: Braulio Carbajal MD; Ryan Prescott MD [...] 05/25/24 1609 DD/ 1300 TD/TT: 05/25/24 1350 Clinical Quality Analyst: [facility] External Provider IMG BI PROCEDURES Edited Result - Final * Lipid Panel, Standard (01/01/2023 10:20 AM EDT) Triglycerides 73 mg/dL [facility] Comment:Desirable Triglyceri de: less than 150 mg/dLBorderline High Triglyceride 150-199 mg/dLHigh Triglyceride: 200-499 mg/dLVery High Triglyceride: greater than or equal to 5OO mg/dL Cholesterol 101 mg/dL [facility] Comment:Desirable Cholestero l: less than 200 mg/dLBorderline High Cholesterol: 200-239 mg/dLHigh Cholesterol: greater than 239 mg/dL LDL Cholesterol Calculated 53 mg/dl [facility] Comment:Desirable LDL: less than 100 mg/dLNear Optimal/Above Optimal LDL: 110- 129 mg/dLBorderline High LDL: 130-159 mg/dLHigh LDL: 160-189 mg/dLVery High LDL: greater than or equal to 190 mg/dL HDL Cholesterol 34 mg/dL [facility] Comment:Desirable HDL: great er than 40 mg/dL Note: This HDL assay may give artificially low results in patients with liver disease. 01/01/2023 10:2 0 AM EDT 01/01/2023 10:20 AM EDT [facility] External Provider LAB BLO OD ORDERABLES Final Result Performing Organization Address [facility]/ZIP Co de Phone Number [facility] [address] [place] [address] [phone] * HEPATITIS C AB W/REFL TO HCV RNA, QN, PCR (01/24/2022 8:19 AM EDT) HEPATITIS C ANTIBODY NON-REACT SÁNCHEZ NON-REACT SÁNCHEZ [facility] INDEX 0.02 <1.00 [facility] Comment: HCV antibody was non-reactive. There is no laboratory evidence of HCV infection. In most cases, no further action is required. However, if recent HCV exposure is suspected, a test for HCV RNA (test code 74753) is suggested. For additional information please refer to http://education.MyHealthTeams.Spins.FM/faq/VAJ34o3 (This link is being provided for informational/ educational purposes only.) 01/24/2022 8:19 AM EDT Braulio Campbell MD HISTORICAL/NON ORD ERABLE LABS Final Result [facility] [address] * HIV 1/2 ANTIGEN/ANTIBODY,FOURTH GENERATION [...] purpose. For additional information please refer to http://education.AlleyWatch/faq/OMI053 (This link is being provided for informational/ educational purposes only.) The performance of this assay has not been clinically validated in patients less than 2 years old. 01/24/2022 8:19 AM EDT Braulio Campbell MD LAB BLOOD ORDERABL ES Final Result [facility] [address] from Last 3 Months or Most Recently Relevant to Health Maintenance Insurance GENERIC COMMERCIAL MD TAYLA [id number]
--- OUTSIDE RECORDS SUMMARY | 2025-07-27 16:45 | XMS_ITS | Clinical Summary ---
Author Organization [facility] Address [address] [place] [address] Care Team Providers Care Edge Banding Off Bearer Name Role Phone Nicole Padron MD Primary Care Provider [phone] Allergies Active Allergy Reactions Criticality Noted Date [...] (03/02/2025): 03/02/2025 following with bariatric provider through [facility] [place]. Requesting referral. Order placed Type 2 diabetes mellitus wit hout complication, with long-term current use of insulin 03/02/2025 Anxiety and depression 03/02/2025 Overview (03/02/2025): 03/02/2025 stable on current medications. Following with outside psychiatrist Psoriasis 03/02/2025 Overview (03/02/2025): 03/02/2025 stable with Skyri[facility]. Follows with outside engineering group manager HTN (hypertension) 05/22/2024 Overview (03/02/2025): 03/02/2025 stable on current medications ADHD (attention deficit hype ractivity disorder), combined type 08/16/2014 Overview (03/02/2025): 03/02/2025 stable on Vyvanse. Following with outside psychiatrist Immunizations Immunization Administration Dates Next Due COVID-19, mRNA (Moderna Pre Fall 2022) Monovalent, 100 mcg/0.5 ml or 50 mcg/0.25 ml dose 07/13/2021,09/22/2020,08/25/2020 Influenza nasal,unspecified formulation 07/05/20 12 Influenza,MDCK,trivalent,PF (Flucelvax) 06/12/20 25 Influenza,injectable,MDCK, Prsrv Fr,Quad 022 Influenza,injectable,MDCK,quad,preservative 04/2021 Influenza,injectable,quad,Prsrv [...] AM EDT CPE - Comprehensive Physical Exam [facility] [address] [place] [phone] Bc Buckley, [facility] [address] [place] [address] CPE Health Maintenance Due Date Last Done Comments Pap Smear 1992 Eye/Retina Exam 1994 Hep B (1 of 3 - 19+ 3-dose series) 1995 Pneumococcal (1 of 2 - PCV) 1995 Zoster (Shingrix) (1 of 2) 1995 Mammogram/Breast Imaging 2016 Colon Cancer Screening 2021 COVID-19 Vaccine ( season) 2025 07/13/2021, 09/22/2020, 09/06/2020, Additional history exists HA1C 09/02/2025 03/02/2025, 07/05, 07/20/2024 LDL Cholesterol 03/02/2026 03/02/2025, 07/05, 07/20/2024 Microalbumin 03/02/2026 03/02/2025 GFR 07/06/2026 07/06/2025, 02/03, 07/20/2024 DTaP/Tdap/Td (3 - Td or Tdap) 03/15/2032 03/15/2022, 12/11/2012 Hepatitis C Screening Completed 03/02/2025 Physical Discontinued 03/02/2025 Influenza Completed 06/12/2025, 05/06, 05/29/2023, Additional history exists Chest Imaging Discontinued 07/06/2025, 07/06/2025 HPV Vaccine (No Doses Required) Completed Hep [...] 7.6(03/02/20 10:42 AM EDT) No Bc Buckley, DNP Note: [...] 120 is ideal. Procedures * Due to [place] state law, this organization might not be [...] to Health Maintenance Results * Due to [place] state law, this organization might not be sharing negative HIV tests. * HEPATITIS C AB WITH REFLEX TO RNA PCR, SERUM (03/02/2025 10:42 AM EDT) Hepatitis C virus Ab NON-REACT SÁNCHEZ NON-REACT SÁNCHEZ [facility] Comment: HCV antibody was non-reactive. There is no laboratory evidence of HCV infection. In most cases, no further action is required. However, if recent HCV exposure is suspected, a test for HCV RNA (test code 77311) is suggested. For additional information please refer to http://education.Quryon, Inc..3TIER/faq/ZYT21i4 (This link is being provided for informational/ educational purposes only.) 03/02/2025 10:4 2 AM EDT 03/02/2025 5:44 PM EDT Narrative Resulting Agency Comment [id number] Bc Buckley DNP LABORATORY Final Result [facility] [address] [place] [address] * (ABNORMAL) HEMOGLOBIN A1C (03/02/2025 10:42 AM [...] 5:44 PM EDT Narrative Resulting Agency Comment [id number] Bc Buckley [facility] Final Result Performing Organization Address [facility] de Phone Number [facility] [address] [place] [address] * ALBUMIN (MICROALBUMIN), RANDOM URINE, WITH CREATININE (03/02/2025 10:42 AM EDT) Creatinine (Urine) 85 20 - 275 mg/dL [facility] Albumin (Urine) 1.6 mg/dL [facility] Comment: Reference Range Not established [...] 5:44 PM EDT Narrative Resulting Agency Comment [id number] Bc Buckley [facility] Final Result [facility] [address] [place] [address] * (ABNORMAL) LIPID PANEL WITH REFLEX TO [...] LDL-C. Darci SS et al. COY. 2013;310(19): 6059-5272 (http://education.CoreXchange/faq/CNY606) CHOL/HDL Ratio 3.8 <5.0 (calc) [facility] Cholesterol Non-HDL 134(H) <130 mg/dL (calc) [facility] Comment: For patients with diabetes plus 1 major ASCVD risk factor, treating to a non-HDL-C goal of <100 mg/dL (LDL-C of <70 mg/dL) is considered a therapeutic option. 03/02/2025 10:4 2 AM EDT 03/02/2025 5:44 PM EDT Narrative Resulting Agency Comment [id number] Bc Buckley [facility] Final Result [facility] [address] [place] [address] * (ABNORMAL) BASIC METABOLIC PANEL WITH (GFR) [...] [facility] BUN/Creatinine Ratio SEE NOTE: 6 (calc) [facility] Comment: Not Reported: BUN [...] needs for GFR calculation. Resulting Agency Comment [id number] Bc Buckley DNP LABORATORY Final Result [facility] [address] [place] [address] from Last 3 Months or Most Recently Relevant to Health Maintenance Insurance COMMERCIAL MD TAYLA [id number] Care Teams Edge Banding Off Bearer Relationship Specialty Start Date End Date Nicole Padron MD [address] [facility] [[email or web address] [place] [address] PCP - General Family Medicine 10/28/24
--- OUTSIDE RECORDS SUMMARY | 2025-07-27 16:45 | XMS_ITS | Data Portability ---
Author Organization [place] [facility] Patel AONE Funk Address [address] [place] [address] Care Team Providers Care Mrb Engineer Name Role Phone JAVIER LANGLEY Referring Provider [phone] Assessment Encounter Date Assessment Date Assessment LastModified by Organization Details LastModified Time 06/18/2024 06/18/2024 IMPRESSION: 49-year-old [id number] t woman with RIGHT lateral epicondylitis. PLAN: [...] Gonzalez MS, PA-C in indirect conjunction with [facility] provider Clark Andino MD. He agrees with [...] scale). 2023 024 [email or web address] [facility], [address] [place] [address], [address], 5 15:48:51 Surgeries None recorded. Imaging XR, hip, unilateral, 2 or 3 view 2023 024 [email or web address] [facility], [address], [place], [address], 4 11:51:40 XR, elbow, 3 or more view 2023 024 [facility], [address], [place], [address], 4 16:54:16 Medication Orders meloxicam 15 mg tablet 2023 024 [facility], [address] [place] [address], [place], [address], 4 14:11:51 Patient TargetsNo targets recorded. Patient Instructions Encounter Date Encounter Id Patient Instructions Last Modified By Organization Details Last Modified Time 06/18/2024 [id number] tennis elbow: exercises Not available 06/18/2024 14:11:37 [...] RIGHT elbow. Not available 06/18/2024 13:55:08 07/07/2024 [id number] 4 view X-ray lory dy obtained during [...] Organization Details Recorded Time Lateral epicondyli tis 989755626 Active [address], [place], [address] , [place] [facility], P 4 14:10:53 Lateral epicondyli tis 993922844 Active [address], [place], [address] , [place] [facility], [facility] 4 14:11:09 Osteoarthr itis of left hip joint 8013442090831 08 Active 2023 GERARD GONZALEZ PA-C [address], [place], [address] , [place] [facility], [facility] 4 11:06:02 Problem Notes None recorded. [...] ICD10 Code Diagnosis IMO Codes Diagnosis Note [id number] Oscar Avina MD [facility] [address] [place] [address] [address] [place] [address] 06/18/2024 13:20:00 06/18/2024 14:16:30 Pain of elbow region 86565756 M25.521 [id number] Lateral epicondylitis 20 1084554 M77.10 [id number] GERARD GONZALEZ PA-C [address] [place] [address] 07/07/2024 10:17:23 07/07/2024 11:04:15 Pain of hip region 47008783 M25.606 [id number] Osteoarthr itis of left hip joint 9720784749 66275 M16.12 [id number] Health Concerns Section Related Observation LastModified by Organization Detai ls LastModified Time None Recorded Concern Status LastModified by Organization Details LastModified Time None Recorded Advance Directives Directive None Recorded Payers Insurance Date Sequence Insurance Name Policy Number Policy Fountain Covered Member ID Fountain Member ID Guarantor Name 11/16/2024 1 [employer] [id number] Julia Mena [id number] Julia King on Notes Date Note Type [...] 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 She is [id number] . Oscar Avina MD [address], [place], [address], [place] [facility] 06/18/2024 14:13:14 07/07/2024 text/html 49-year-old female [...] GERARD GONZALEZ PA-C [address], [place], [address], [place] [facility] 07/07/2024 11:07:40 OBGyn Episode No OBEpisode recorded.
--- OUTSIDE RECORDS SUMMARY | 2025-07-27 16:45 | XMS_ITS | Encounter Summary ---
Author Organization [facility] Address [address] [place], [place] [address] Care Team Providers Care Secondary School Special Ed Teacher Name Role Phone Nicole Padron MD Primary Care Provider [phone] Reason for Visit * Reason Comments Medical Record Encounter Details Date Type Department Care Team (Late Contact Info) Description 03/23/2025 Abstract [facility] [place] [phone] Unknown, Abstract Provider Social History Tobacco Use [...] AM EDT CPE - Comprehensive Physical Exam [facility] [place] [address] [place] [phone] Bc Buckley, [facility] [address] [place] [address] CPE documented as of this encounter Goals [...] on filedocumented in this encounter Care Teams [employer] Special Ed Teacher Relationship Specialty Start Date End Date Nicole Padron MD [address] [facility] [place] [address] PCP - General Family Medicine 10/28/24 documented as of this encounter
== END 2025-07-27 16:30 | disposition home or self-care (01) ==
LOC: HO.ENCR 15:43
PROVIDERS: PCP Family Medicine; Visit Provider Physician Assistant Medical
DX: E11.319 Type 2 diabetes mellitus with unspecified diabetic retinopathy without macular edema (principal); E66.01 Morbid (severe) obesity due to excess calories; E78.00 Pure hypercholesterolemia, unspecified; T81.30XA Disruption of wound, unspecified, initial encounter

== ENCOUNTER → 2025-07-27 15:43 | Outpatient (BNVA) | payer OTHER, SELFPAY | PROVIDERS: PCP Family Medicine; Visit Provider Physician Assistant Medical | DX: E11.319 Type 2 diabetes mellitus with unspecified diabetic retinopathy without macular edema (principal); E66.01 Morbid (severe) obesity due to excess calories; Z68.41 Body mass index [BMI] 40.0-44.9, adult; E78.00 Pure hypercholesterolemia, unspecified; Z98.84 Bariatric surgery status; T81.31XA Disruption of external operation (surgical) wound, not elsewhere classified, initial encounter; Z79.85 Long-term (current) use of injectable non-insulin antidiabetic drugs; Z13.89 Encounter for screening for other disorder | CPT/HCPCS: 82947; 83036 ==

== ENCOUNTER 2025-08-03 09:09 | Outpatient (AMB) | payer OTHER, SELFPAY ==
--- OUTSIDE RECORDS SUMMARY | 2025-08-02 11:00 | XMS_ITS | Encounter Summary ---
Author Organization [facility] Address [address] [place] [address] Care Team Providers Care Compressor Assembler Name Role Phone Nicole Padron Primary Care Provider [phone] Reason for Visit * Reason Comments Post-op Visit Sleeve 07/16 Encounter Details Date Type Department Care Team ([facility] st Contact Info) Description 08/02/2025 11:00 AM EST Office Visit Bariatric Surgery - [address] [place] [phone] Gosia Stoner MD [address] [place] [phone] Social History Tobacco Use Types Packs/Day Years [...] Sign Reading Time Taken Comments Blood Pressure 96/67 08/02/2025 11:15 AM EST Pulse 96 08/02/2025 11:15 AM EST Temperature 36.9 C (98.5 F) 08/02/2025 11:15 AM EST Respiratory Rate - - Oxygen Saturation - - Inhaled Oxygen Concentration - - Weight 138 kg (305 lb) 08/02/2025 11:15 AM EST Height 177.8 cm (5' 10 ) 08/02/2025 11:15 AM EST Body Mass Index 43.76 08/02/2025 11:15 AM EST documented in this encounter Plan of Treatment Upcoming Encounters Date Type Department Care Team (Late st Contact Info) Description 08/16/2025 11:00 AM EST Telemedicine Bariatric Surgery - [address] [address] Prema Wallis, RD [address] [address] 09/15/2025 11:15 AM EST Office Visit Bariatric Surgery [address] [address] Gosia Stoner MD [address] [place] [address] documented as of this encounter Visit Diagnoses Not on filedocumented in this encounter Care Teams Compressor Assembler Relationship Specialty Start Date End Date Nicole Padron PA [address] [place] [address] PCP - General Family Medicine 07/16/25 documented as of this encounter
--- NOTE | 2025-08-03 09:00 | MHC.WMTHER ---
Intake Intake Visit Reasons: VIDEO OP Therapy Allergies Penicillins Allergy (Intermediate, Verified 07/27/25 16:19) Shortness of Breath pt states no food allergies Allergy (Unknown, Uncoded 07/27/25 16:19) Unknown [facility] Medical History (Updated 07/27/25 @ 16:37 by IDALMIS Cortes) Type 2 diabetes mellitus with retinopathy Asthma Insomnia Neuropathy Breast calcification, right Adenocarcinoma determined by biopsy of liver Diabetic retinopathy Anxiety and depression GERD (gastroesophageal reflux disease) SOLE on CPAP ADHD Hyperlipidemia HTN (hypertension) with goal to be determined Diabetes mellitus Morbid obesity Surgical History (Updated 07/27/25 @ 16:23 by ANN Miles) History of sleeve gastrectomy Hx of LASIK History of cholecystectomy Family History Mother Diabetes Heart problem Father Hypertension Maternal Grandmother Primary cancer of bone marrow Maternal Grandfather Prostate cancer Social History Are you a primary healthcare advisory services manager to a significant other at home: No Do you presently have visiting nurse or other home services: No Alcohol intake: never Patient Tobacco Use Status: Never used Tobacco Female Reproductive History Menstrual Age of Menarche: 13 Behavioral Health Assessment Weight Management Therapy Therapy Notes Details Subjective: Client reports bariatric surgery on July 16, 2025, with a 20 lb weight loss to date. She describes a persistent ?flat mood? and notes increased emotional sensitivity today due to the anniversary of her mother?s passing. Client endorses elevated stress related to finances and reports difficulty maintaining routines, particularly engaging in regular exercise. Objective: During session, CBT-based interventions were implemented, including guided identification of automatic thoughts related to grief, body image changes, and financial stress, followed by cognitive restructuring to challenge ssi-ij-[id number] and catastrophizing patterns. Behavioral activation strategies were introduced to support mood and post-surgical adjustment, with emphasis on breaking exercise goals into small, achievable steps. Psychoeducation was provided on the relationship between grief anniversaries, mood flattening, and physiological changes post-bariatric surgery. Coping skills for acute emotional distress were practiced, including paced breathing and grounding, and problem-solving techniques were applied to identify one concrete, short-term financial stress management action. Assessment/Response: Client presents with depressive symptoms characterized by low/flat mood, grief-related emotional sensitivity, and stress related to finances and lifestyle adjustment following bariatric surgery. Symptoms appear situational and adjustment-related, compounded by anniversary grief. Client was receptive to interventions, demonstrated ability to reframe maladaptive thoughts with support, and verbalized understanding of behavioral activation strategies. Mental status: Alert and oriented ?4; mood ?flat?; affect constricted; thought content appropriate; no delusions or hallucinations; memory and concentration grossly intact. Risk reported/identified: none. Assessment & Plan Assessment & Plan (1) ADHD: Code(s): F90.9 - Attention-deficit hyperactivity disorder, unspecified type Qualifiers: Attention deficit-hyperactivity disorder type: combined inattentive-hyperactive Qualified Code(s): F90.2 - Attention-deficit hyperactivity disorder, combined type (2) Panic disorder: Code(s): F41.0 - Panic disorder [episodic paroxysmal anxiety] (3) Depression, unspecified: Code(s): F32.A - Depression, unspecified Plan F/up in 1 week with focus on CBT for mood regulation, grief processing, and post-surgical adjustment. Client will practice one brief, scheduled physical activity before next session and track mood/thoughts related to grief and financial stress. Next appointment:?August 10, 2025, at 11:00 AM. Telehealth Telehealth Telehealth Platform: [employer] Location of provider rendering services: other (Home office. [place], [place]) Location of patient: address on file Patient Identification confirmed using: Name, : Yes Telehealth method: video Patient verbally consented to treatment: Yes Patient verbally consented to billing insurance company: Yes Patient informed of any privacy concerns related to visit: Yes Minutes spent on Phone/Video with Pt.: 60 [place] [address] Tele Psytx >53 mins Patient Type Established Diagnoses Attention deficit hyperactivity disorder (ADHD), combined type F90.2 Attention deficit-hyperactivity disorder type: combined inattentive-hyperactive Panic disorder F41.0 Depression, unspecified F32.A Time Spent (min) 60
--- OUTSIDE RECORDS SUMMARY | 2025-08-03 11:29 | XMS_ITS | Clinical Summary ---
Author Organization 175 [facility] Address [address] [place] [address] Phone Care Team Providers Care Tablet Machine Operator Name Role Phone Nicole Padron Primary Care Provider [phone] Allergies Active Allergy Reactions Criticality Noted Date [...] Encounters Date Type Department Care Team Description 08/02/2025 11:00 AM EST Office Visit Bariatric Surgery - [place] [address] [address] Gosia Stoner MD 07/16/2025 9:00 AM EST - 07/16/2025 11:30 AM EST Surgery [facility] Main OR [address] [place] [address] Gosia Stoner MD DAVINCI SLEEVE GASTRECTOMY [[id number] (CPT )] 07/16/2025 8:54 AM EST Anesthesia Event [facility] Main OR [address] [place] [address] Allan Silver DO Pierce, Trudy A, PENELOPE 07/16/2025 6:10 AM EST - 07/17/2025 1:30 PM EST Hospital Encounter [facility] Medical Surgical Unit [address] [place] [address] Gosia Stoner MD Morbid obesity with BMI of 45.0-49.9, adult (CMS/HCC V24, CMS/[facility] V28) Discharge Disposition: Home or Self Care 07/12/2025 12:45 PM EST Consult Bariatric Surgery - [address] [address] Gosia Stoner MD Class 3 severe obesity with serious comorbidity and body mass index (BMI) of 45.0 to 49.9 in adult, unspecified obesity type (CMS/HCC V24, CMS/HCC V28) (Primary Dx); Sleep apnea, unspecified type; Preop examination 07/12/2025 12:20 PM EST Lab Draw Station - 175 [facility] [address] [address] Drug therapy (Primary Dx); Psoriasis vulgaris 07/06/2025 10:59 AM EST - 07/06/2025 11:59 PM EST Hospital Encounter [facility] Xray [address] [place] [address] Discharge Disposition: Home or Self Care 06/30/2025 11:00 AM EST Consult Bariatric Surgery - [place] 175 [facility] [address] [place] [address] Prema Wallis, MECHE Class 3 severe obesity with serious comorbidity and body mass index (BMI) of 45.0 to 49.9 in adult, unspecified obesity type ([facility] V24, [facility] V28) (Primary Dx) from Last 3 Months Immunizations Immunization Administration Dates Next Due Tdap Tetanus diptheria acell ular pertussis (Boostrix; Adacel) 7yo and older 12/11/2012 Surgical History Surgery Date Site/Laterality Comments CHOLECYSTECTOMY 1999 PROCEDURE: HISTORICAL CHOLECYSTECTOMY Medical History Medical History Date Comments HTN (hypertension) 2011 DX:HTN (hyper tension) DM (diabetes mellitus) ([facility]/ [facility] V24, [facility] V28) 2006 DX:DM (diabetes mellitus) (H CC) [...] F) 08/02/2025 11:15 AM EST Respiratory Rate 16 07/17/2025 8:06 AM EST Oxygen Saturation 100% 07/17/2025 8:06 AM EST Inhaled Oxygen Concentration - - Weight 138 kg (305 lb) 08/02/2025 11:15 AM EST Height 177.8 cm (5' 10 ) 08/02/2025 11:15 AM EST Body Mass Index 43.76 08/02/2025 11:15 AM EST Plan of Treatment Upcoming Encounters Date Type Department Care Team (Late st Contact Info) Description 08/16/2025 11:00 AM EST Telemedicine Bariatric Surgery [address] [address] Prema Wallis, MECHE [address] [address] 09/15/2025 11:15 AM EST Office Visit Bariatric Surgery [address] [address] Gosia Stoner MD [address] [place] [address] Health Maintenance Due Date Last Done Comments [...] ENDOTRACHEAL(NO CHARGE) Routine 07/16/2025 9:21 AM EST [place] LAP SURGICAL GASTRIC RESTRICTIVE PROCEDURE LONGITUDINAL GASTRECTOMY 07/16/2025 8:53 AM EST Morbid obesity with BMI of 45.0-49.9, adult (CMS/HCC V24, CMS/HCC V28) Case Notes 23 HR BED Special Needs 23 hour bed11/6 TIME CHANGE VIA PHONE W/ LAUREN JT POCT GLUCOSE BLOOD Routine 07/16/2025 6: 57 [...] of 45.0-49.9, adult (CMS/HCC V24, CMS/HCC V28) TYPE AND SCREEN Routine 07/06/2025 10:44 AM EST Morbid obesity with BMI of 45.0-49.9, adult ([facility] V24, [facility] V28) HEMOGLOBIN A1C Routine 07/20/2024 8:33 AM EST Morbid obesity ([facility] V24, [facility] V28) LIPID PANEL WITH REFLEX TO DIRECT LDL Routine 07/20/2024 8:33 AM EST Morbid obesity ([facility] V24, [facility] V28) HM URINE ALBUMIN CREATININE RATIO Routine 02/26/2014 from Last 3 Months or Most Recently Relevant to Health Maintenance Results * (ABNORMAL) POCT Glucose, blood (07/17/2025 11:14 AM EST) Only the most recent of7 resultswithin the time period is included. Pathologist [facility] Glucose POCT 125(H) 70 - 100 mg/dL 07/17/2025 11:14 AM EST [facility] Blood Capillary blood specimen / Unknown 07/17/2025 11:14 AM EST 07/17/2025 11:15 AM EST us Gosia Stoner MD LAB POINT OF CA RE TEST DOCKED DEVICE UNSOLICITED RESULTS Final Result [facility] [address] [place] [address], * (ABNORMAL) CBC auto differential (07/17/2025 6:01 AM EST) Only the most recent of2 resultswithin the time period is included. WBC 10.7 4.8 - 10.8 K/[facility] LAB HEMETOLOGY METHOD 07/17/2025 7:09 AM EST [facility] RBC 4.50 3.80 - 4.80 M/[facility] LAB HEMETOLOGY METHOD 07/17/2025 7:09 AM [facility] Hemoglobin 12.6 11.5 - 16.0 g/dL LAB HEMETOLOGY METHOD 07/17/2025 7:09 AM [facility] Hematocrit 39.2 35.0 - 47.0 % LAB HEMETOLOGY METHOD 07/17/2025 7:09 AM [facility] MCV 86.3 79.0 - 98.0 FL LAB HEMETOLOGY METHOD 07/17/2025 7:09 AM [facility] MCH 27.8 27.0 - 32.0 pcg LAB HEMETOLOGY METHOD 07/17/2025 7:09 AM [facility] MCHC 32.1 32.0 - 37.0 g/dL LAB HEMETOLOGY METHOD 07/17/2025 7:09 AM [facility] RDW 13.9 11.0 - 15.0 % LAB HEMETOLOGY METHOD 07/17/2025 7:09 AM [facility] Platelets 294 130 - 400 K/mcL LAB HEMETOLOGY METHOD 07/17/2025 7:09 AM [facility] MPV 9.1 7.0 - 11.0 FL LAB HEMETOLOGY METHOD 07/17/2025 7:09 AM [facility] NRBC 0.0 <1.0 % LAB HEMETOLOGY METHOD 07/17/2025 7:09 AM [facility] NRBC Absolute 0.00 <0.10 K/mcL LAB HEMETOLOGY METHOD 07/17/2025 7:09 AM [facility] Neutrophils Relative 74.7 % LAB HEMETOLOGY METHOD 07/17/2025 7:09 AM [facility] Lymphocytes Relative 18.9 % LAB HEMETOLOGY METHOD 07/17/2025 7:09 AM [facility] Monocytes Relative 5.0 % LAB HEMETOLOGY METHOD 07/17/2025 7:09 AM [facility] Eosinophils Relative 0.2 % LAB HEMETOLOGY METHOD 07/17/2025 7:09 AM [facility] Basophils Relative 0.5 % LAB HEMETOLOGY METHOD 07/17/2025 7:09 AM [facility] Immature Granulocytes Relative 0.7 % LAB HEMETOLOGY METHOD 07/17/2025 7:09 AM EST [facility] Neutrophils Absolute 8.00(H) 1.50 - 7.00 K/mcL LAB HEMETOLOGY METHOD 07/17/2025 7:09 AM [facility] Lymphocytes Absolute 2.02 1.00 - 5.00 K/mcL LAB HEMETOLOGY METHOD 07/17/2025 7:09 AM [facility] Monocytes Absolute 0.53 0.20 - 1.00 K/mcL LAB HEMETOLOGY METHOD 07/17/2025 7:09 AM [facility] Eosinophils Absolute 0.02 0.00 - 0.50 K/mcL LAB HEMETOLOGY METHOD 07/17/2025 7:09 AM [facility] Basophils Absolute 0.05 0.00 - 0.20 K/mcL LAB HEMETOLOGY METHOD 07/17/2025 7:09 AM [facility] Immature Granulocytes Absolute 0.07(H) 0.00 - 0.03 K/mcL LAB HEMETOLOGY METHOD 07/17/2025 7:09 AM [facility] Blood Venous blood specimen / Unknown Venipuncture / Unknown 07/17/2025 6:01 AM EST 07/17/2025 6:16 AM EST us Elyse RAYGOZA LAB BLOOD ORDERABLES Fin al Result [facility] [address] [place] [address], * Phosphorus (07/17/2025 6:01 AM EST) Phosphorus 3.6 2.5 - 4.5 mg/dL 07/17/2025 7:23 AM EST [facility] Blood Venous blood specimen / Unknown Venipuncture / Unknown 07/17/2025 6:01 AM EST 07/17/2025 6:16 AM EST Elyse RAYGOZA LAB BLOOD ORDERABLES Fin al Result Performing Organization Address City/[facility]/ZIP Co de Phone Number [facility] [address] [place] [address], [place] [phone] * Magnesium (07/17/2025 6:01 AM EST) Pathologist [facility] Magnesium 2.1 1.9 - 2.6 mg/dL 07/17/2025 7:22 AM EST [facility] Blood Venous blood specimen / Unknown Venipuncture / Unknown 07/17/2025 6:01 AM EST 07/17/2025 6:16 AM EST Elyse RAYGOZA LAB BLOOD ORDERABLES Fin al Result Performing Organization Address City/[facility]/ZIP Co de Phone Number [facility] [address] [place] [address], [place] [phone] * Basic metabolic panel (07/17/2025 6:01 AM EST) Pathologist [facility] Sodium 136 133 - 145 mmol/L 07/17/2025 7:21 AM EST [facility] Potassium 4.5 3.5 - 5.5 mmol/L 07/17/2025 7:21 AM EST [facility] Chloride 99 96 - 110 mmol/L 07/17/2025 7:21 AM EST [facility] CO2 27 21 - 32 mmol/L 07/17/2025 7:21 AM [facility] Anion Gap 10 3 - 11 07/17/2025 7:21 AM [facility] Glucose 98 70 - 100 mg/dL 07/17/2025 7:21 AM [facility] BUN 16 5 - 25 mg/dL 07/17/2025 7:21 AM [facility] Creatinine 0.67 0.50 - 1.10 mg/dL 07/17/2025 7:21 AM [facility] eGFR 107 >=60 mL/min/1. 73m2 07/17/2025 7:21 AM [facility] Comment:Calculation based on the Chronic Kidney Disease Epidemiology Collaboration (CKD-EPI) equation refit without adjustment for race. BUN/Creatinine Ratio 23.9 07/17/2025 7:21 AM [facility] Calcium 8.7 8.5 - 10.5 mg/dL 07/17/2025 7:21 AM [facility] Blood Venous blood specimen / Unknown Venipuncture / Unknown 07/17/2025 6:01 AM EST 07/17/2025 6:16 AM EST Elyse RAYGOZA LAB BLOOD ORDERABLES Fin al Result [facility] [address] [place] [address], * Tissue exam (07/16/2025 10:47 AM EST) Final Diagnosis A. Stomach, partial stomach, sleeve gastrectomy: - Portion of stomach with no specific pathologic changes. 07/19/2025 4:18 PM [facility] at 1618 EST Gross Description A. [...] to the staple lines is inked black. [employer] sections are submitted in one cassette, including a perpendicular section to the margin and random stomach, three pieces. ALEKSANDR 07/19/2025 4:18 PM EST [facility] Disclaimer Unless otherwise specified, all tissue is 10% NB formalin fixed and paraffin embedded. 07/19/2025 4:18 PM EST [facility] Tissue Stomach structure / Unknown 07/16/2025 10:47 AM EST 07/16/2025 11:36 AM EST Gosia Stoner MD LAB PATHOLOGY ORDERABLE S Final Result [facility] [address] [place] [address], [place] [phone] * TH AN ENDOTRACHEAL(NO CHARGE) (07/16/2025 9:21 AM EST) Narrative Lima Marx CRNA - 07/16/2025 9:21 AM EST Lima Marx CRNA 07/16/2025 9:22 AM General Information and Staff Patient location during procedure: OR Performed by: Lima Maxr CRNA Authorized by: Allan Silver DO Intubation [...] difficulty assessment: 1 - vent by mask us Allan Korobkov DO ANESTHESIA ORDERABLES Final Result * Interferon gamma interpretation (07/12/2025 12:23 PM EST) [facility] Signature Quantiferon Plus Interpretation Negative Negative LAB CHEMISTRY METHOD 07/13/2025 10:55 AM EST [facility] Blood Venous blood specimen / Unknown Venipuncture / Unknown 07/12/2025 12:23 PM EST 07/12/2025 12:23 PM EST [facility] BLOOD ORDERABLES Final Result [facility] [address] [place] [address], [place] [phone] * Interferon gamma antigen 2 (07/12/2025 12:23 PM EST) Blood Venous blood specimen / Unknown Venipuncture / Unknown 07/12/2025 12:23 PM EST 07/12/2025 12:23 PM EST [facility] LAB BLOOD ORDERABLES Final Result [facility] [address] [place] [address], [place] [phone] * Interferon gamma antigen 1 (07/12/2025 12:23 PM EST) Blood Venous blood specimen / Unknown Venipuncture / Unknown 07/12/2025 12:23 PM EST 07/12/2025 12:23 PM EST [facility] LAB BLOOD ORDERABLES Final Result [facility] [address] [place] [address], [place] [phone] * Interferon gamma mitogen (07/12/2025 12:23 PM EST) Blood Venous blood specimen / Unknown Venipuncture / Unknown 07/12/2025 12:23 PM EST 07/12/2025 12:23 PM EST [facility] BLOOD ORDERABLES Final Result Performing Organization Address City/[facility] Co de Phone Number [facility] [address] [place] [address], * Interferon gamma NIL (07/12/2025 12:23 PM EST) Blood Venous blood specimen / Unknown Venipuncture / Unknown 07/12/2025 12:23 PM EST 07/12/2025 12:23 PM EST [facility] LAB BLOOD ORDERABLES Final Result Performing Organization Address [facility] de Phone Number [facility] [address] [place] [address], * XR Chest 2 Views (07/06/2025 11:09 AM EST) Anatomical Region Laterality Modality Body Radiographic Lary ging 07/06/2025 11:3 0 AM EST Impressions 07/06/2025 11:31 AM EST Normal examination. Code 15581 -------- FINAL REPORT -------- Dictated By: Steven Woods Dictated Date: 07/06/2025 11:30 ET Assigned Physician: Steven Woods Reviewed and Electronically Signed By: Steven Woods Signed Date: 07/06/2025 11:31 ET Workstation ID: [id number] Transcribed By: Self Edit Transcribed Date: 07/06/2025 [...] angles are clear. IMPRESSION: Normal examination. Code 19790 -------- FINAL REPORT -------- Dictated By: Steven Woods Dictated Date: 07/06/2025 11:30 ET Assigned Physician: Steven Woods Reviewed and Electronically Signed By: Steven Woods Signed Date: 07/06/2025 11:31 ET Workstation ID: [id number] Transcribed By: Self Edit Transcribed Date: 07/06/2025 11:30 ET Gosia Stoner MD IMG XR PROCEDURES Final Result * ECG 12 lead (07/06/2025 10:53 AM EST) Ventricular Rate ECG 91 BPM GEMUSE Atrial Rate 91 BPM GEMUSE P-R Interval 176 ms GEMUSE QRS Duration 98 ms GEMUSE Q-T Interval 366 ms GEMUSE QTc 450 ms GEMUSE P Wave Wilder 36 degrees GEMUSE R Wilder -18 degrees GEMUSE T Wilder 40 degrees GEMUSE ECG Interpretation Normal sinus rhythm Low voltage QRS Borderline ECG No previous ECGs available Confirmed by SUNNY DANIEL ([id number]) on 07/06/2025 7:07:46 PM GEMUSE 07/06/2025 10:5 3 AM EST 07/06/2025 7:07 PM EST Gosia Stoner MD ECG ORDERABLES Final R esult GEMUSE * Recheck blood typing (07/06/2025 10:44 AM EST) ABO Group O 07/06/2025 1:02 PM EST [facility] Rh Type Positive 07/06/2025 1:02 PM EST [facility] Blood Venous blood specimen / Unknown Venipuncture / Unknown 07/06/2025 10:44 AM EST 07/06/2025 11:39 AM EST us Gosia Stoner MD LAB BLOOD BANK TEST ORD ERABLES Final Result [facility] [address] [place] [address], [place] [phone] * Type and screen (07/06/2025 10:44 AM EST) ABO Group O 07/06/2025 12:40 PM EST [facility] Rh Type Positive 07/06/2025 12:40 PM EST [facility] Antibody Screen Negative 07/06/2025 12:40 PM EST [facility] Blood Venous blood specimen / Unknown Venipuncture / Unknown 07/06/2025 10:44 AM EST 07/06/2025 11:39 AM EST us Gosia Stoner MD LAB BLOOD BANK TEST ORD ERABLES Final Result [facility] [address] [place] [address], [place] [phone] * (ABNORMAL) CMP (07/06/2025 10:44 AM EST) Sodium 135 133 - 145 mmol/L 07/06/2025 12:40 PM [facility] Potassium 4.4 3.5 - 5.5 mmol/L 07/06/2025 12:40 PM [facility] Chloride 96 96 - 110 mmol/L 07/06/2025 12:40 PM [facility] CO2 28 21 - 32 mmol/L 07/06/2025 12:40 PM [facility] Anion Gap 11 3 - 11 07/06/2025 12:40 PM [facility] Glucose 177(H) 70 - 100 mg/dL 07/06/2025 12:40 PM [facility] BUN 15 5 - 25 mg/dL 07/06/2025 12:40 PM [facility] Creatinine 0.98 0.50 - 1.10 mg/dL 07/06/2025 12:40 PM [facility] eGFR 71 >=60 mL/min/1. 73m2 07/06/2025 12:40 PM [facility] Comment:Calculation based on the Chronic Kidney Disease Epidemiology Collaboration (CKD-EPI) equation refit without adjustment for race. BUN/Creatinine Ratio 15.3 07/06/2025 12:40 PM [facility] Calcium 8.9 8.5 - 10.5 mg/dL 07/06/2025 12:40 PM [facility] AST (SGOT) 26 10 - 42 unit/L 07/06/2025 12:40 PM [facility] ALT (SGPT) 22 10 - 60 unit/L 07/06/2025 12:40 PM [facility] Alkaline Phosphatase 129(H) 42 - 121 unit/L 07/06/2025 12:40 PM [facility] Total Protein 7.7 6.0 - 8.0 g/dL 07/06/2025 12:40 PM [facility] Albumin 4.4 3.2 - 5.0 g/dL 07/06/2025 12:40 PM [facility] Total Bilirubin 0.6 0.0 - 1.4 mg/dL 07/06/2025 12:40 PM [facility] Blood Venous blood specimen / Unknown Venipuncture / Unknown 07/06/2025 10:44 AM EST 07/06/2025 11:39 AM EST Gosia Stoner MD LAB BLOOD ORDERABLES Fi nal Result [facility] [address] [place] [address], [place] [phone] * (ABNORMAL) Lipid panel with reflex to direct LDL (07/20/2024 8:33 AM EST) Cholesterol 179 0 - 200 mg/dL LAB CHEMISTRY METHOD 07/20/2024 11:24 AM EST [facility] Triglycerides 89 0 - 150 mg/dL LAB CHEMISTRY METHOD 07/20/2024 11:24 AM EST [facility] HDL 53 >=40 mg/dL LAB CHEMISTRY METHOD 07/20/2024 11:24 AM EST [facility] LDL Calculated 108(H) 0 - 100 mg/dL LAB CHEMISTRY METHOD 07/20/2024 11:24 AM EST [facility] VLDL Cholesterol Francisco J 17.8 mg/dL LAB CHEMISTRY METHOD 07/20/2024 11:24 AM EST [facility] Non HDL Chol. (LDL+VLDL) 126 <145 mg/dL LAB CHEMISTRY METHOD 07/20/2024 11:24 AM EST [facility] Chol/HDL Ratio 3.4 0.0 - 4.4 LAB CHEMISTRY METHOD 07/20/2024 11:24 AM [facility] Blood Venous blood specimen / Unknown Venipuncture / Unknown 07/20/2024 8:33 AM EST 07/20/2024 8:33 AM EST us Gosia Stoner MD LAB BLOOD ORDERABLES Fi nal Result [facility] [address] [place] [address], [place] [phone] * (ABNORMAL) Hemoglobin A1c (07/20/2024 8:33 AM EST) Hemoglobin A1C 7.9(H) <6.5 % LAB CHEMISTRY METHOD 07/20/2024 2:41 PM EST [facility] Mean Bld Glu Estim. 180 mg/dL LAB CHEMISTRY METHOD 07/20/2024 2:41 PM EST [facility] Blood Venous blood specimen / Unknown Venipuncture / Unknown 07/20/2024 8:33 AM EST 07/20/2024 8:33 AM EST Gosia Stoner MD LAB BLOOD ORDERABLES Fi nal Result [facility] [address] [place] [address], [place] [phone] * Urine Albumin Creatinine Ratio (02/26/2014) Urine [...] currently active code status orders. Care Teams Tablet Machine Operator Relationship Specialty Start Date End Date Nicole Padron PA [address] [facility] [place] [address] PCP - General Family Medicine 07/16/25
--- OUTSIDE RECORDS SUMMARY | 2025-08-03 11:29 | XMS_ITS | Clinical Summary ---
Author Organization [employer] Address [address] [facility] [address] [place] [address] Care Team Providers Care Post Doc Fellowship Name Role Phone Unavailable Primary Care Provider [...] unspecified whether termite control representative insulin use Inject 1.5 mg under the [...] the past 12 months, has t he [employer], oil or water [employer] threatened to shut off services in your [...] unspecified whether termite control representative insulin use (CMS/HCC) ZZZ HISTORICAL HEPATITIS C [...] PM EDT Narrative 05/25/2024 4:12 PM EDT [facility] [address] [place], [place] [address] Mammography Report Signed Patient: Julia López MR#: [id number] : 1975 Acct:[id number] Age/Sex: 48 / F ADM Date: 05/25/24 Loc: HO.MAMMO Attending Dr: Ryan Prescott MD Ordering Physician: Ryan Presoctt MD Results: 2Ben ign Findings Date of Service: 05/25/24 Follow Up: 1 Year From Orig inal Mammogram Procedure(s): MM tomosynthesis diagnostic BI Accession Number(s): [id number] cc: Braulio Carbajal MD; Ryan Prescott MD [...] MD 05/25/2024 04:09 PM EDT RP Workstation: [id number] Dictated By: Lorenzo Rueda MD Signed By: <Electronically signed by Lorenzo Rueda MD in OV> 05/25/24 1609 DD/ 1300 TD/TT: 05/25/24 1350 Stroke Coordinator: Procedure Note Donotuseinterpreter, Image - 05/25/2024 [facility] [address] [place] [address] Mammography Report Signed Patient: Yana López#: [id number] : 1975Acct:[id number] Age/Sex: 48 / FADM Date: 05/25/24 Loc: HO.MAMMO Attending Dr: Ryan Prescott MD Ordering Physician: Ryan Prescottesults: 2Ben ign Findings Date of Service: 05/25/24Follow Up: 1 Year From Orig inal Mammogram Procedure(s): MM tomosynthesis diagnostic BI Accession Number(s): [id number] cc: Braulio Carbajal MD; Ryan Prescott MD [...] 05/25/24 1609 DD/ 1300 TD/TT: 05/25/24 1350 Stroke Coordinator: [facility] External Provider IMG BI PROCEDURES Edited Result - Final * Lipid Panel, Standard (01/01/2023 10:20 AM EDT) Triglycerides 73 mg/dL [facility] Comment:Desirable Triglyceri de: less than 150 mg/dLBorderline High Triglyceride 150-199 mg/dLHigh Triglyceride: 200-499 mg/dLVery High Triglyceride: greater than or equal to 5OO mg/dL Cholesterol 101 mg/dL [facility] Comment:Desirable Cholestero l: less than 200 mg/dLBorderline High Cholesterol: 200-239 mg/dLHigh Cholesterol: greater than 239 mg/dL LDL Cholesterol Calculated 53 mg/dl [facility] Comment:Desirable LDL: less than 100 mg/dLNear Optimal/Above Optimal LDL: 110- 129 mg/dLBorderline High LDL: 130-159 mg/dLHigh LDL: 160-189 mg/dLVery High LDL: greater than or equal to 190 mg/dL HDL Cholesterol 34 mg/dL [facility] Comment:Desirable HDL: great er than 40 mg/dL Note: This HDL assay may give artificially low results in patients with liver disease. 01/01/2023 10:2 0 AM EDT 01/01/2023 10:20 AM EDT [facility] External Provider LAB BLO OD ORDERABLES Final Result Performing Organization Address [facility]/ZIP Co de Phone Number [facility] [address] [place] [address] [phone] * HEPATITIS C AB W/REFL TO HCV RNA, QN, PCR (01/24/2022 8:19 AM EDT) HEPATITIS C ANTIBODY NON-REACT SÁNCHEZ NON-REACT SÁNCHEZ [facility] INDEX 0.02 <1.00 [facility] Comment: HCV antibody was non-reactive. There is no laboratory evidence of HCV infection. In most cases, no further action is required. However, if recent HCV exposure is suspected, a test for HCV RNA (test code 39236) is suggested. For additional information please refer to http://education.[employer].Paxer/faq/UME74b6 (This link is being provided for informational/ educational purposes only.) 01/24/2022 8:19 AM EDT Braulio Campbell MD HISTORICAL/NON ORD ERABLE LABS Final Result [facility] [address] * HIV 1/2 ANTIGEN/ANTIBODY,FOURTH GENERATION W/RFL [...] purpose. For additional information please refer to http://education.24Symbols/faq/DYW868 (This link is being provided for informational/ educational purposes only.) The performance of this assay has not been clinically validated in patients less than 2 years old. 01/24/2022 8:19 AM EDT Braulio Campbell MD LAB BLOOD ORDERABL ES Final Result [facility] [address] from Last 3 Months or Most Recently Relevant to Health Maintenance Insurance [employer]ER[employer] MD [place] [phone]
--- OUTSIDE RECORDS SUMMARY | 2025-08-03 11:29 | XMS_ITS | Clinical Summary ---
Author Organization [facility] Address [address] [place] [address] Care Team Providers Care Supervisor Packing Name Role Phone Nicole Padron MD Primary Care Provider [phone] Allergies Active Allergy Reactions Criticality Noted Date [...] (03/02/2025): 03/02/2025 following with bariatric provider through [facility] in [place]. Requesting referral. Order placed Type 2 diabetes mellitus wit hout complication, with long-term current use of insulin 03/02/2025 Anxiety and depression 03/02/2025 Overview (03/02/2025): 03/02/2025 stable on current medications. Following with outside psychiatrist Psoriasis 03/02/2025 Overview (03/02/2025): 03/02/2025 stable with [facility]. 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 Following with outside psychiatrist Immunizations Immunization Administration Dates Next Due COVID-19, mRNA (Moderna Pre Fall 2022) Monovalent, 100 mcg/0.5 ml or 50 mcg/0.25 ml dose 07/13/2021,09/22/2020,09/06/2020,2020 Influenza nasal,unspecified formulation 07/05/2012 Influenza,MDCK,trivalent,PF (Flucelvax) 06/12/2025 Influenza,injectable,MDCK, P rsrv Fr,Quad 07/14/2022 Influenza,injectable,MDCK,qu ad,preser vative 07/13/2021 Influenza,injectable,quad,Prsrv Fr 05/29/2023 Influenza,injectable,quad,pr eservativ e 08/18/2018 Tdap 03/15/2022,12/11/2012,08/05/2012 influenza,seasonal,trivalent ,PF (Fluzone, Fluarix, Flulaval) 05/31/2024 Social [...] AM EDT CPE - Comprehensive Physical Exam [facility] [address] [place] [phone] Bc Buckley, [facility] [address] [place] [address] CPE Health Maintenance Due Date Last Done Comments Pap Smear 1992 Eye/Retina Exam 1994 Hep B (1 of 3 - 19+ 3-dose series) 1995 Pneumococcal (1 of 2 - PCV) 1995 Zoster (Shingrix) (1 of 2) 1995 Colon Cancer Screening 2021 Mammogram/Breast Imaging 04/09/2024 04/09/2023 COVID-19 Vaccine ( season) 2025 07/13/2021, 09/22/2020, 09/06/2020, Additional history exists HA1C 09/02/2025 03/02/2025, 07/05, 07/20/2024, Additional history exists LDL Cholesterol 03/02/2026 03/02/2025, 07/05, 07/20/2024, Additional history exists Microalbumin 03/02/2026 03/02/2025 GFR 07/17/2026 07/17/2025, 09/2024, 03/02/2025, Additional history exists DTaP/Tdap/Td (4 - Td or Tdap) 03/15/2032 03/15/2022, 12/11/2012, 08/05/2012 Hepatitis C Screening Completed 03/02/2025 Physical Discontinued [...] 120 is ideal. Procedures * Due to [place] state law, this organization might not be [...] to Health Maintenance Results * Due to [place] [employer] law, this organization might not be sharing negative HIV tests. * HEPATITIS C AB WITH REFLEX TO RNA PCR, SERUM (03/02/2025 10:42 AM EDT) Hepatitis C virus Ab NON-REACT SÁNCHEZ NON-REACT SÁNCHEZ [facility] Comment: HCV antibody was non-reactive. There is no laboratory evidence of HCV infection. In most cases, no further action is required. However, if recent HCV exposure is suspected, a test for HCV RNA (test code 52630) is suggested. For additional information please refer to http://education.Lucky Sort/faq/RFX84d5 (This link is being provided for informational/ educational purposes only.) 03/02/2025 10:4 2 AM EDT 03/02/2025 5:44 PM EDT Narrative Resulting Agency Comment [id number] Bc Buckley [facility] Final Result Performing Organization Address [facility] de Phone Number [facility] [address] [place] [address] * (ABNORMAL) HEMOGLOBIN A1C (03/02/2025 10:42 AM [...] 5:44 PM EDT Narrative Resulting Agency Comment [id number] Bc Buckley [facility] Final Result Performing Organization Address [facility] de Phone Number [facility] [address] [place] [address] * ALBUMIN (MICROALBUMIN), RANDOM URINE, WITH CREATININE (03/02/2025 10:42 AM EDT) Creatinine (Urine) 85 20 - 275 mg/dL [facility] Albumin (Urine) 1.6 mg/dL [facility] Comment: Reference Range Not established [...] 5:44 PM EDT Narrative Resulting Agency Comment [id number] Bc Buckley [facility] Final Result Performing Organization Address [facility] de Phone Number [facility] [address] [place] [address] * (ABNORMAL) LIPID PANEL WITH REFLEX TO [...] LDL-C. Darci SS et al. COY. 2013;310(19): 0475-7932 (http://education.Apriva/faq/LZT630) CHOL/HDL Ratio 3.8 <5.0 (calc) [facility] Cholesterol Non-HDL 134(H) <130 mg/dL (calc) [facility] Comment: For patients with diabetes plus 1 major ASCVD risk factor, treating to a non-HDL-C goal of <100 mg/dL (LDL-C of <70 mg/dL) is considered a therapeutic option. 03/02/2025 10:4 2 AM EDT 03/02/2025 5:44 PM EDT Narrative Resulting Agency Comment [id number] Bc Buckley [facility] Final Result Performing Organization Address [facility] Co de Phone Number [facility] [address] [place] [address] * (ABNORMAL) BASIC METABOLIC PANEL WITH (GFR) [...] needs for GFR calculation. Resulting Agency Comment [id number] Bc Buckley [facility] Final Result [facility] [address] [place] [address] from Last 3 Months or Most Recently Relevant to Health Maintenance Insurance COMMERCIAL Care Teams Supervisor Packing Relationship Specialty Start Date End Date Nicole Padron MD [address] [facility] [place] [address] PCP - General Family Medicine 10/28/24
--- OUTSIDE RECORDS SUMMARY | 2025-08-03 11:29 | XMS_ITS | Encounter Summary ---
Author Organization [employer] Address [address] [facility] [address] [place] [address] Care Team Providers Care Resp Therapist Name Role Phone Unavailable Primary Care Provider Unavailabl e Reason for Visit * Reason Comments Med Refill Encounter Details Date Type Department Care Team ([facility] st Contact Info) Description 11/02/2024 Refill [facility] MED & PEDS [address] [place] [address] Braulio Carbajal MD [address] [place] [address] Social History Tobacco Use Types Packs/Day Years [...]
--- OUTSIDE RECORDS SUMMARY | 2025-08-03 11:29 | XMS_ITS | Encounter Summary ---
Author Organization [employer] Address [address] [facility] [address] [place] [address] Care Team Providers Care Design Studio Consultant Name Role Phone Unavailable Primary Care Provider Unavailabl e Reason for Visit * Reason Comments Med Refill Encounter Details Date Type Department Care Team ([facility] st Contact Info) Description 10/13/2024 Refill [facility] CHC MED & PEDS [address] [place] [address] Braulio Carbajal MD [address] [place] [address] Primary hypertension Social History Tobacco Use Types [...]
--- OUTSIDE RECORDS SUMMARY | 2025-08-03 11:29 | XMS_ITS | Encounter Summary ---
Author Organization [employer] Address [address] [facility] 7[address] [place] [address] Care Team Providers Care Host/Hostess Restaurant Name Role Phone Unavailable Primary Care Provider Unavailabl e Reason for Visit * Reason Comments Med Refill Encounter Details Date Type Department Care Team ([facility] st Contact Info) Description 10/19/2024 Refill [facility] CHC MED & PEDS [address] [place] [address] Braulio Carbajal MD [address] [place] [address] Social History Tobacco Use Types Packs/Day Years [...]
--- OUTSIDE RECORDS SUMMARY | 2025-08-03 11:30 | XMS_ITS | Clinical Summary ---
Author Organization [facility] Address [address] [place] [address] Care Team Providers Care Tire Repairman Name Role Phone Braulio Lopez Primary Care Provider [phone] Allergies Active Allergy Reactions Criticality Noted Date [...] Foot Exam 02/01/2022 Influenza Vaccine (#1) 2025 Colorectal Cancer Screening: Annual FOBT 2025 Colorectal Cancer Screening: Colonoscopy 2025 Colorectal Cancer Screening: Sigmoidoscopy 2025 Pneumococcal Vaccine: Peds ( 0 to 5 Years) and At-Risk Patients (6 to 49 Years) Aged Out No longer eligible b ased on patient's age to complete this topic Care Teams Tire Repairman Relationship Specialty Start Date End Date Braulio Lopez: [phone] PCP - General Internal Medicine 02/01/22
--- OUTSIDE RECORDS SUMMARY | 2025-08-03 11:30 | XMS_ITS | Encounter Summary ---
Author Organization [employer] Address [address] [place] [address] Care Team Providers Care Funeral Greeter Name Role Phone Braulio Carbajal MD Primary Care Prov ider Reason for Visit * Reason Onset Date Comments Med Refill 02/28/2023 Encounter Details Date Type Department Care Team (Late st Contact Info) Description 02/28/2023 Refill [facility] CHC MED & PEDS [address] [place] [address] Braulio Carbajal MD [address] [place] [address] Social History Tobacco Use Types Packs/Day Years [...] on filedocumented in this encounter Care Teams Funeral Greeter Relationship Specialty Start Date End Date Braulio Carbajal MD [address] [place] [address] PCP - General Internal Medicine 12/14/19 04/28/24 documented as of this encounter
--- OUTSIDE RECORDS SUMMARY | 2025-08-03 11:30 | XMS_ITS | Encounter Summary ---
Author Organization [facility] Address [address] [place], [place] [id number] Care Team Providers Care Cut Plug Packer Name Role Phone Nicole Padron MD Primary Care Provider [phone] Reason for Visit * Reason Comments Medical Record Encounter Details Date Type Department Care Team (Late Contact Info) Description 03/23/2025 Abstract [facility] [place] [phone] Unknown, Abstract Provider Social History Tobacco Use [...] - Comprehensive Physical Exam [facility] [place] [address] [place] [phone] Bc Buckley, [facility] [address] [place] [address] CPE documented as of this encounter Goals [...] on filedocumented in this encounter Care Teams Cut Plug Packer Relationship Specialty Start Date End Date Nicole Padron MD [address] [facility] [place] [address] PCP - General Family Medicine 10/28/24 documented as of this encounter
--- OUTSIDE RECORDS SUMMARY | 2025-08-03 11:30 | XMS_ITS | Encounter Summary ---
Author Organization [employer] Address [address] [place] [phone] Care Team Providers Care Panelboard Assembler Name Role Phone Braulio Carbajal MD Primary Care Prov ider Reason for Visit * Reason Comments Med Refill Encounter Details Date Type Department Care Team (Late st Contact Info) Description 10/29/2022 Refill [facility] [address] [place], [place] [phone] Braulio Carbajal MD [address] [place] [address] Social History Tobacco Use Types Packs/Day Years [...] on filedocumented in this encounter Care Teams Panelboard Assembler Relationship Specialty Start Date End Date Braulio Carbajal MD [address] [place] [address] PCP - General Internal Medicine 12/14/19 04/28/24 documented as of this encounter
--- OUTSIDE RECORDS SUMMARY | 2025-08-03 11:30 | XMS_ITS | Encounter Summary ---
Author Organization [employer] Address [address] [facility] [address] [place] [address] Care Team Providers Care Bus Analyst Name Role Phone Braulio Carbajal MD Primary Care Prov ider Reason for Visit * Reason Onset Date Comments Med Refill 02/28/2023 Encounter Details Date Type Department Care Team (Late st Contact Info) Description 02/28/2023 Refill [facility] [address] [place] [address] Braulio Carbajal MD [address] [place] [phone] Mixed hyperlipidemia; Primary hypertension; Type 2 diabetes mellitus with diabetic polyneuropathy, with long-term current use of insulin ([facility]/HCC) Social History Tobacco Use Types Packs/Day Years [...] (HCC) documented in this encounter Care Teams Bus Analyst Relationship Specialty Start Date End Date Braulio Carbajal MD [address] [place] [address] PCP - General Internal Medicine 12/14/19 04/28/24 documented as of this encounter
--- OUTSIDE RECORDS SUMMARY | 2025-08-03 11:30 | XMS_ITS | Encounter Summary ---
Author Organization [employer] Address [address] [place] [address] Care Team Providers Care Shell Press Operator Name Role Phone Braulio Carbajal MD Primary Care Prov ider Reason for Visit * Reason Comments Med Refill Encounter Details Date Type Department Care Team (Late st Contact Info) Description 10/29/2022 Refill [facility] [address] [place], [place] [phone] Braulio Carbajal MD [address] [place] [address] Social History Tobacco Use Types Packs/Day Years [...] on filedocumented in this encounter Care Teams Shell Press Operator Relationship Specialty Start Date End Date Braulio Carbajal MD [address] [place] [address] PCP - General Internal Medicine 12/14/19 04/28/24 documented as of this encounter
--- OUTSIDE RECORDS SUMMARY | 2025-08-03 11:30 | XMS_ITS | Clinical Summary ---
Author Organization [facility] Prior to 01/02/[address] [place] [address] Care Team Providers Care Hydraulic Specialist Name Role Phone Braulio Lopez MD Primary Care Provider [phone] Allergies Active Allergy Reactions Criticality Noted Date [...] age to complete this topic Care Teams Hydraulic Specialist Relationship Specialty Start Date End Date Braulio Lopez MD [address] [place] [phone] PCP - General Internal Medicine 03/20/22
--- OUTSIDE RECORDS SUMMARY | 2025-08-03 11:30 | XMS_ITS | Encounter Summary ---
Author Organization [facility] Address [address] [place], [place] [phone] Care Team Providers Care Senior Biostatistician/Group Leader Name Role Phone Nicole Padron MD Primary Care Provider [phone] Reason for Visit * Reason Comments Medical Record Encounter Details Date Type Department Care Team (Late Contact Info) Description 03/23/2025 Abstract [facility] [place] [phone] Unknown, Abstract Provider Social History Tobacco Use [...] AM EDT CPE - Comprehensive Physical Exam [facility] [address] [place] [phone] Bc Buckley, [facility] [address] [place] [address] CPE documented as of this encounter Goals [...] on filedocumented in this encounter Care Teams Senior Biostatistician/Group Leader Relationship Specialty Start Date End Date Nicole Padron MD [address] [facility] [place] [address] PCP - General Family Medicine 10/28/24 documented as of this encounter
--- OUTSIDE RECORDS SUMMARY | 2025-08-03 11:30 | XMS_ITS | Encounter Summary ---
Author Organization [employer] Address [address] [facility] 7[address] [place] [address] Care Team Providers Care [employer] Former Name Role Phone Braulio Carbajal MD Primary Care Prov ider Encounter Details Date Type Department Care Team (Late st Contact Info) Description 08/17/2022 Orders Only [facility] [address] [place] [address] Braulio Carbajal MD [address] [place] [address] Type 2 diabetes mellitus without complication, unspecified whether mcc insulin use ([facility]) (Primary Dx) Social History Tobacco Use Types [...] 2 diabetes mellitus without complication, unspecified whether extermination inspector insulin use (CMS/HCC) HEMATOXYLIN AND EOSIN STAIN Routine 01/09/2023 8:38 AM EDT Type 2 diabetes mellitus without complication, unspecified whether mcc insulin use (CMS/HCC) COVID-19 ID NOW (DUPREE) Routine 01/08/2023 2:18 PM EDT Type 2 diabetes mellitus without complication, unspecified whether extermination inspector insulin use (CMS/HCC) TYPE AND SCREEN Routine 01/01/2023 10:22 AM EDT Type 2 diabetes mellitus without complication, unspecified whether mcc insulin use (CMS/HCC) VITAMIN D,25-OH,TOTAL,IA Routine 01/01/2023 10:20 AM EDT Type 2 diabetes mellitus without complication, unspecified whether mcc insulin use (CMS/HCC) TSH W/REFLEX TO FT4 Routine 01/01/2023 1 0:20 AM EDT Type 2 diabetes mellitus without complication, unspecified whether extermination inspector insulin use (CMS/HCC) CBC WITH AUTO DIFFERENTIAL Routine 01/01/2023 10:20 AM EDT Type 2 diabetes mellitus without complication, unspecified whether mcc insulin use (CMS/HCC) ZINC Routine 01/01/2023 10:20 AM EDT Type 2 diabetes mellitus without complication, unspecified whether extermination inspector insulin use (CMS/HCC) VITAMIN A Routine 01/01/2023 10:20 AM EDT Type 2 diabetes mellitus without complication, unspecified whether extermination inspector insulin use (CMS/HCC) APTT Routine 01/01/2023 10:20 AM EDT Type 2 diabetes mellitus without complication, unspecified whether mcc insulin use (CMS/HCC) PROTHROMBIN TIME-INR Routine 01/01/2023 10:20 AM EDT Type 2 diabetes mellitus without complication, unspecified whether extermination inspector insulin use (CMS/HCC) C-REACTIVE PROTEIN Routine 01/01/2023 10 :20 AM EDT Type 2 diabetes mellitus without complication, unspecified whether extermination inspector insulin use (CMS/HCC) VITAMIN B1 Routine 01/01/2023 10:20 AM EDT Type 2 diabetes mellitus without complication, unspecified whether mcc insulin use (CMS/HCC) PTH, INTACT WITHOUT CALCIUM Routine 01/01/2023 10:20 AM EDT Type 2 diabetes mellitus without complication, unspecified whether extermination inspector insulin use (CMS/HCC) HEMOGLOBIN A1C Routine 01/01/2023 10:20 AM EDT Type 2 diabetes mellitus without complication, unspecified whether extermination inspector insulin use (CMS/HCC) FERRITIN Routine 01/01/2023 10:20 AM EDT Type 2 diabetes mellitus without complication, unspecified whether extermination inspector insulin use (CMS/HCC) VITAMIN B12 Routine 01/01/2023 10:20 AM EDT Type 2 diabetes mellitus without complication, unspecified whether extermination inspector insulin use (CMS/HCC) LIPID PANEL, STANDARD Routine 01/01/2023 10:20 AM EDT Type 2 diabetes mellitus without complication, unspecified whether mcc insulin use (CMS/HCC) COMPREHENSIVE METABOLIC PANEL Routine 01/01/2023 10:20 AM EDT Type 2 diabetes mellitus without complication, unspecified whether mcc insulin use (CMS/HCC) GLUCOSE, WHOLE BLOOD Routine 11/13/2022 1:31 PM EDT Type 2 diabetes mellitus without complication, unspecified whether mcc insulin use (CMS/HCC) HEMOGLOBIN A1C Routine 11/13/2022 1:14 PM EDT Type 2 diabetes mellitus without complication, unspecified whether mcc insulin use (CMS/HCC) documented in this encounter Results * CA 19-9 (01/09/2023 10:38 AM EDT) CA 19-9 14 <34 U/mL [facility] Comment:The CA19-9 result ma y be increased on average 14% - 20%,relative to results previously obtained with this methoddue to a recent calibrator adjustment made in Octobery the reagent tie puller. In the low range for thisassay (< [...] or absence of disease.THIS TEST WAS PERFORMED AT:[employer] [place] [id number] LONDONO MD 01/09/2023 10:3 8 AM EDT 01/09/2023 10:42 AM EDT [facility] BLO OD ORDERABLES Final Result [facility] [address] [place] [phone] * Hematoxylin and Eosin Stain (01/09/2023 8:38 AM EDT) 01/09/2023 8:38 AM EDT 01/09/2023 8:53 AM EDT Narrative [facility] - 01/14/2023 1:28 PM EDT ----- ------- Name: Julia López Age/Sex: 47/F : 1975 [facility]#: [id number] Unit#: [id number] Attend Dr: Darci Sanders MD Re01/09/23 Status: [facility] Location: [facility] Disch: ----- ------- SPEC : [id number] RECD: 01/09/23 STATUS: HERMINIO CROCKER NUM: [id number] PUSHPA: 01/09/23 [facility] DR: Darci Sanders MD ENTERED: 01/09/23 SP TYPE: Surgical OTHR DR: Braulio aCrbajal MD ORDERED: HE Stain/8, Frozen Section/2, Gross [...] Julia López Age/Sex: 47/F : 1975 Unit#: [id number] Attend Dr: Darci Sanders MD Re01/09/23 Status: [facility] Location: [facility] Disch: ----- ------- SPEC : [id number] RECD: 01/09/23 STATUS: HERMINIO OBI NUM: [id number] PUSHPA: 01/09/23 [facility] DR: Darci Sanders MD ENTERED: 01/09/23 [...] on B2. Copies To: Braulio Carbajal MD [address] [place] [id number] Darci Sanders MD [address] [place] [address], [address] [place] [address] ----- ------- Signed (signature on file) Shaun Lebron MD 01/14/23 1328 ----- ------- END OF REPORT [facility] BLO OD ORDERABLES Final Result [facility] [address] [place] [address] [phone] * COVID-19 ID NOW ([place]) (01/08/2023 2:18 PM EDT) IDNOW SERIAL# [id number] [facility] COVID-19 TEST Negative Negative [facility] COVID-19 NOTE See Note [facility] Comment: Results are for the identification of SARS-CoV2 RNA. TheSARS-CoV2 RNA is generally detectable in respiratory samplesduring the acute phase of infection. Positive results areindicative of the presence of SARS-CoV-2 RNA; clinicalcorrelation with patient history and other diagnosticinformation is necessary to determine patient infectionstatus. Positive results do not rule out bacterial infectionor co- infection with other viruses.Testing facilities within the [facility] and [facility] are required to report all positive [...] use by authorized laboratories.Testing performed on the [employer] ID NOW utilizing NAAT. 01/08/2023 2:18 PM EDT 01/08/2023 2:32 PM EDT [facility] LAB MOLECULAR DIAGNOSTICS ORDERABLES Final Result Performing Organization Address City/[facility] de Phone Number [facility] [address] [place] [address] [phone] * Type and screen (01/01/2023 10:22 AM EDT) Pathologist [facility] Blood Type OP [facility] Antibody Screen NEGATIVE [facility] 01/01/2023 10:2 2 AM EDT 01/01/2023 11:04 AM EDT Narrative [facility] - 01/01/2023 11:55 AM EDT Spec expiration changed by JAMESON on 01/01/23Reason: For SURGERYNURSING:Call Blood Bank (ext. [phone]) to band patient on admission.Type and Screen in effect until 2300 on 01/09/23Witnessed by EDELMIRA us [facility] External Provider LAB BLO OD BANK TEST ORDERABLES Final Result Performing Organization Address [facility] de Phone Number [facility] [address] [place] [phone] * (ABNORMAL) Vitamin A (01/01/2023 10:20 AM EDT) Pathologist [facility] Vitamin A (Retinol) 32(A) 38 - 98 mcg/dL [facility] Comment:Vitamin supplementat ion within 24 hours prior toblood draw may affect the accuracy of the results.This test was developed and its analytical performancecharacteristics have been determined by [employer] [place], [place]. It hasnot been cleared or approved by the U.S. Food and DrugAdministration. This assay has been validated pursuantto the CLIA regulations and is used for clinicalpurposes.THIS TEST WAS PERFORMED AT:[id number] [place] [id number] BARRY MD,PHD 01/01/2023 10:2 0 AM EDT 01/01/2023 10:20 AM EDT [facility] BLO OD ORDERABLES Final Result Performing Organization Address [facility] Co de Phone Number [facility] [address] [place] [phone] * (ABNORMAL) Vitamin B1 (01/01/2023 10:20 AM EDT) Vitamin B1 <6(A) 8 - 30 nmol/L [facility] Comment:Vitamin supplementat ion within 24 hours prior toblood draw may affect the accuracy of the results.This test was developed and its analytical performancecharacteristics have been determined by [employer] [facility]. It hasnot been cleared or approved by the .S. Food and DrugAdministration. This assay has been validated pursuantto the CLIA regulations and is used for clinicalpurposes.THIS TEST WAS PERFORMED AT:[employer] [address] [id number] BARRY MD,PHD 01/01/2023 10:2 0 AM EDT 01/01/2023 10:20 AM EDT [facility] LAB BLO OD ORDERABLES Final Result Performing Organization Address [facility] de Phone Number [facility] [address] [place] [phone] * Zinc (01/01/2023 10:20 AM EDT) Zinc 84 60 - 130 mcg/dL [facility] Comment:This test was develo ped and its analytical performancecharacteristics have been determined by [facility] [facility]. It hasnot been cleared or approved by the U.S. Food and DrugAdministration. This assay has been validated pursuantto the CLIA regulations and is used for clinicalpurposes.THIS TEST WAS PERFORMED AT:[id number] [place] [id number] BARRY MD,PHD 01/01/2023 10:2 0 AM EDT 01/01/2023 10:20 AM EDT [facility] LAB BLO OD ORDERABLES Final Result Performing Organization Address [facility] Co de Phone Number [facility] [address] [place] [address] [phone] * PTH, Intact Without Calcium (01/01/2023 10:20 AM EDT) PTHI 32 16 - 77 pg/mL [facility] Comment:Interpretive Guide I ntact PTH Calcium -------Normal Parathyroid Normal NormalHypoparathyroidism Low or Low Normal LowHyperparathyroidism Primary Normal or High High Secondary High Normal or Low Tertiary High HighNon-Parathyroid Hypercalcemia Low or Low Normal High Calcium (PTHI) 9.9 8.6 - 10.2 mg/dL [facility] Comment:THIS TEST WAS PERFOR MED AT:[employer] [place] [id number] LONDONO MD 01/01/2023 10:2 0 AM EDT 01/01/2023 10:20 AM EDT [facility] LAB BLO OD ORDERABLES Final Result Performing Organization Address [facility] Co de Phone Number [facility] [address] [place] [address] [phone] * Lipid Panel, Standard (01/01/2023 10:20 AM EDT) Triglycerides 73 mg/dL [facility] Comment:Desirable Triglyceri de: less than 150 mg/dLBorderline High Triglyceride 150-199 mg/dLHigh Triglyceride: 200-499 mg/dLVery High Triglyceride: greater than or equal to 5OO mg/dL Cholesterol 101 mg/dL [facility] Comment:Desirable Cholestero l: less than 200 mg/dLBorderline High Cholesterol: 200-239 mg/dLHigh Cholesterol: greater than 239 mg/dL LDL Cholesterol Calculated 53 mg/dl [facility] Comment:Desirable LDL: less than 100 mg/dLNear Optimal/Above Optimal LDL: 110- 129 mg/dLBorderline High LDL: 130-159 mg/dLHigh LDL: 160-189 mg/dLVery High LDL: greater than or equal to 190 mg/dL HDL Cholesterol 34 mg/dL [facility] Comment:Desirable HDL: great er than 40 mg/dL Note: This HDL assay may give artificially low results in patients with liver disease. 01/01/2023 10:2 0 AM EDT 01/01/2023 10:20 AM EDT [facility] BLO OD ORDERABLES Final Result Performing Organization Address City/[facility]/ZIP Co de Phone Number [facility] [address] [place] [phone] * (ABNORMAL) C-reactive Protein (01/01/2023 10:20 AM EDT) C Reactive Protein 2.54(H) < or = 0.50 mg/dL [facility] 01/01/2023 10:2 0 AM EDT 01/01/2023 10:20 AM EDT [facility] LAB BLO OD ORDERABLES Final Result Performing Organization Address City/[facility]/ZIP Co de Phone Number [facility] [address] [place] [phone] [phone] * (ABNORMAL) Comprehensive Metabolic Panel (01/01/2023 10:20 AM EDT) Sodium 136 135 - 145 mmol/L [facility] Potassium 4.7 3.3 - 5.1 mmol/L [facility] Chloride 99 96 - 108 mmol/L [facility] Carbon Dioxide 28 22 - 29 mmol/L [facility] Anion Gap 14 12 - 20 [facility] Urea Nitrogen (BUN) 13 9 - 16 mg/dL [facility] Creatinine, Serum 0.80 0.5 - 1.4 mg/dL [facility] Creatinine Clr Calc Pharmacy 134.3 [facility] Comment:Provided height and weight: 175.26 cm,142.882 kg.eGFR (calculated from the MDRD study equation) and eCrCl(calculated from the Cockcroft-Gault equation) are based ondifferent parameters and may not yield comparable results.If eCrCl result is absurd, please check patient'sheight/weight. Estimated Glomerular Filt Rate >60 [facility] Comment:NOTE: For -Am erican individuals, multiply the result by 1.210.Chronic Kidney Disease: Estimated GFR < 60 mL/min/1.17c9Ydxini Kidney Disease: Estimated GFR < 15 mL/min/1.73m2 Glucose 141(H) 60 - 115 mg/dL [facility] Calcium 10.0 8.4 - 10.2 mg/dL [facility] Bilirubin, Total 0.9 0.0 - 1.0 mg/dL [facility] Aspartate Amino Transferase 18 5 - 31 U/L [facility] Alanine Aminotransferase 14 0 - 31 U/L [facility] Total Protein 7.9 6.5 - 8.0 g/dL [facility] Albumin Level 4.0 3.5 - 5.0 g/dL [facility] Alkaline Phosphatase 85 39 - 117 U/L [facility] 01/01/2023 10:2 0 AM EDT 01/01/2023 10:20 AM EDT us [facility] External Provider LAB BLO OD ORDERABLES Final Result [facility] [address] [place] [address] [phone] * TSH W/Reflex to FT4 (01/01/2023 10:20 AM EDT) TSH reflex Free T4 1.39 0.32 - 4.0 uIU/mL [facility] 01/01/2023 10:2 0 AM EDT 01/01/2023 10:20 AM EDT [facility] LAB BLO OD ORDERABLES Final Result Performing Organization Address City/[facility]/ZIP Co de Phone Number [facility] [address] [place] [phone] * Vitamin D, 25-Hydroxy, Total, Immunoassay (01/01/2023 10:20 AM EDT) Vitamin D 25-OH Total 23.8 >30 ng/mL [facility] Comment:Health Based Referen ce Values*< 20 ng/mL Zjmldsyhk25-26 ng/mL Insufficient> 30 ng/mL Sufficient*Nay HASTINGS. N [...] 0 AM EDT 01/01/2023 10:20 AM EDT [facility] BLO OD ORDERABLES Final Result Performing Organization Address [facility] Co de Phone Number [facility] [address] [place] [phone] * Vitamin B12 (01/01/2023 10:20 AM EDT) Vitamin B12 505 200 - 900 pg/mL [facility] Comment:NORMAL 200-900 PG/ML INDETERMINATE 160-199 PG/ML DEFICIENT < 160 PG/ML 01/01/2023 10:2 0 AM EDT 01/01/2023 10:20 AM EDT [facility] LAB BLO OD ORDERABLES Final Result Performing Organization Address [facility] Co de Phone Number [facility] [address] [place] [phone] * Ferritin (01/01/2023 10:20 AM EDT) Ferritin 192 10 - 250 ng/mL [facility] 01/01/2023 10:2 0 AM EDT 01/01/2023 10:20 AM EDT [facility] BLO OD ORDERABLES Final Result Performing Organization Address [facility] de Phone Number [facility] [address] [place] [phone] * Hemoglobin A1c (01/01/2023 10:20 AM EDT) Hemoglobin A1c 6.8 % [facility] Comment:Hemoglobin A1C Refer ence Range Adults: 4.8 - 6.0 % Non diabetic: < 6.0 % Goal: < 7.0 %Additional Action Suggested: > 8.0 %Note: Hemoglobin A1c results are invalid for patients with abnormal amounts of HbF. Blood transfusions may impact the HbA1c concentration in the patient sample. Estimated Average Glucose 148 mg/dL [facility] Comment:eAG = Estimated ave rage glucose which is %A1C expressed asaverage glucose, using the formula of the E9N-KgarbvpCuhwbrd Glucose study (ADAG), Diabetes Care, Vol.31,#8,2007 01/01/2023 10:2 0 AM EDT 01/01/2023 10:20 AM EDT [facility] LAB BLO OD ORDERABLES Final Result Performing Organization Address [facility] de Phone Number [facility] [address] [place] [phone] * APTT (01/01/2023 10:20 AM EDT) Partial Thromboplastin Time 35.0 26.0 - 36.4 SEC [facility] 01/01/2023 10:2 0 AM EDT 01/01/2023 10:20 AM EDT [facility] LAB BLO OD ORDERABLES Final Result Performing Organization Address [facility] Phone Number [facility] [address] [place] [phone] * Prothrombin Time-INR (01/01/2023 10:20 AM EDT) [facility] Prothrombin Time 12.9 10.0 - 13.1 SEC [facility] INTERNATIONAL NORM RATIO 1.1 0.9 - 1.1 [facility] Comment:INTERNATIONAL NORMAL IZED RATIO (INR) [...] 0 AM EDT 01/01/2023 10:20 AM EDT [facility] BLO OD ORDERABLES Final Result Performing Organization Address [facility] de Phone Number [facility] [address] [place] [phone] * (ABNORMAL) CBC auto differential (01/01/2023 10:20 AM EDT) White Blood Count 11.3(H) 4.8 - 10.8 X10*3/uL [facility] Red Blood Count 5.09 4.20 - 5.50 X10*6/uL [facility] Hemoglobin 13.8 12.0 - 16.0 g/dl [facility] Hematocrit 44.1 37.0 - 47.0 % [facility] Mean Corpuscular Volume 86.6 80.0 - 98.0 fL [facility] Mean Corpuscular Hemoglobin 27.1 27.0 - 33.0 pg [facility] Mean Corpuscular HGB Conc 31.3 31.0 - 35.0 g/dl [facility] Red Cell Distribution Width 14.3 11.0 - 16.0 % [facility] Platelet Count 376 160 - 400 X10*3/uL [facility] Mean Platelet Volume 9.2(L) 9.4 - 12.3 fL [facility] Neutrophils Percent Auto 66.0 45 - 73 % [facility] Imm Gran Pct Auto 0.8(H) 0.0 - 0.4 % [facility] Lymphocytes Percent Auto 25.1 20 - 40 % [facility] Monocytes Percent Auto 5.5 2 - 11 % [facility] Eosinophils Percent Auto 2.0 0 - 4 % [facility] Basophils Percent Auto 0.6 0 - 2 % [facility] NRBC Pct Auto 0.0 0.0 - 0.2 /100WBC [facility] Neutrophils Absolute Auto 7.4 2.0 - 8.3 x10*3/uL [facility] Imm Gran Abs Auto 0.09(H) 0.00 - 0.03 X10*3/uL [facility] Lymphocytes Absolute Auto 2.8 1.2 - 4.9 X10*3/uL [facility] Monocytes Absolute Auto 0.6 0.1 - 1.2 X10*3/uL [facility] Eosinophils Absolute Auto 0.2 0.0 - 0.4 X10*3/uL [facility] Basophils Absolute Auto 0.1 0.0 - 0.2 X10*3/uL [facility] NRBC Abs Auto 0.000 0.0 - 0.012 X10*3/uL [facility] 01/01/2023 10:2 0 AM EDT 01/01/2023 10:20 AM EDT [facility] LAB BLO OD ORDERABLES Final Result Performing Organization Address [facility] de Phone Number [facility] [address] [place] [phone] * (ABNORMAL) Glucose, Whole Blood (11/13/2022 1:31 PM EDT) Glucose, Whole Blood 196(H) 60 - 115 mg/dL [facility] Comment:METER #: [id number] 5Testing performed in the Endocrinology Department [address] , [address], [facility]. 11/13/2022 1:31 PM EDT 11/13/2022 1:34 PM EDT [facility] LAB BLO OD ORDERABLES Final Result Performing Organization Address [facility] de Phone Number [facility] [address] [place] [phone] * Hemoglobin A1c (11/13/2022 1:14 PM EDT) Hemoglobin A1c 7.4 % [facility] Comment:Hemoglobin A1C Refer ence Range Adults: 4.8 - 6.0 % Non diabetic: < 6.0 % Goal: < 7.0 %Additional Action Suggested: > 8.0 %Note: Hemoglobin A1c results are invalid for patients with abnormal amounts of HbF. Blood transfusions may impact the HbA1c concentration in the patient sample. Estimated Average Glucose 166 mg/dL [facility] Comment:eAG = Estimated ave rage glucose which is %A1C expressed asaverage glucose, using the formula of the X7O-OmnddrkHnmcdgn Glucose study (ADAG), Diabetes Care, Vol.31,#8,Mar. 2007 11/13/2022 1:14 PM EDT 11/13/2022 1:14 PM EDT us [facility] External Provider LAB BLO OD ORDERABLES Final Result [facility] [address] [place] [phone] documented in this encounter Visit Diagnoses Diagnosis Type 2 diabetes mellitus without complication, unspecified whether extermination inspector insulin use- Primary documented in this encounter Care Teams [employer] Former Relationship Specialty Start Date End Date Braulio Carbajal MD [address] [place] [phone] PCP - General Internal Medicine 12/14/19 04/28/24 documented as of this encounter
--- OUTSIDE RECORDS SUMMARY | 2025-08-03 11:30 | XMS_ITS | Encounter Summary ---
Author Organization [facility] Address [address] [place] [address] Care Team Providers Care Deputy K 9 Name Role Phone Nicole Padron MD Primary Care Provider [phone] Encounter Details Date Type Department Care Team (Late Contact Info) Description 03/02/2025 Orders Only [address] [phone] Bc Buckley DNP [address] [place] [address] Social History Tobacco Use Types Packs/Day Years [...] AM EDT CPE - Comprehensive Physical Exam [address] [phone] Bc Buckley DNP [address] [place] [address] CPE documented as of this encounter Goals [...] this encounter Procedures * Due to [place] Davia law, this organization might not be sharing [...] this encounter Results * Due to [place] Dav[place] law, this organization might not be sharing [...] 5:44 PM EDT Narrative Resulting Agency Comment [id number] [facility] Final Result [facility] [address] [place] [address] * (ABNORMAL) LIPID PANEL WITH REFLEX TO [...] LDL-C. Darci LOPEZ et al. COY. 2013;310(19): 3693-0473 (http://education.[employer].Kadriana/faq/GBA025) CHOL/HDL Ratio 3.8 <5.0 (calc) [facility] Cholesterol Non-HDL 134(H) <130 mg/dL (calc) [facility] Comment: For patients with diabetes plus 1 major ASCVD risk factor, treating to a non-HDL-C goal of <100 mg/dL (LDL-C of <70 mg/dL) is considered a therapeutic option. 03/02/2025 10:4 2 AM EDT 03/02/2025 5:44 PM EDT Narrative Resulting Agency Comment [id number] Bc Buckley [facility] Final Result Performing Organization Address [facility] de Phone Number [facility] [address] [place] [address] * ALBUMIN (MICROALBUMIN), RANDOM URINE, WITH CREATININE [...] 5:44 PM EDT Narrative Resulting Agency Comment [id number] [facility] Final Result Performing Organization Address [facility] de Phone Number [facility] [address] [place] [address] * (ABNORMAL) BASIC METABOLIC PANEL WITH (GFR) [...] needs for GFR calculation. Resulting Agency Comment [id number] Bc Buckley [facility] Final Result Performing Organization Address [facility] de Phone Number [facility] [address] [place] [address] * HEPATITIS C AB WITH REFLEX TO RNA PCR, SERUM (03/02/2025 10:42 AM EDT) Hepatitis C virus Ab NON-REACT SÁNCHEZ NON-REACT SÁNCHEZ [facility] Comment: HCV antibody was non-reactive. There is no laboratory evidence of HCV infection. In most cases, no further action is required. However, if recent HCV exposure is suspected, a test for HCV RNA (test code 65164) is suggested. For additional information please refer to http://education.[employer].Kadriana/faq/KAY52j6 (This link is being provided for informational/ educational purposes only.) 03/02/2025 10:4 2 AM EDT 03/02/2025 5:44 PM EDT Narrative Resulting Agency Comment [id number] B[address] [facility] Final Result Performing Organization Address [facility] Co de Phone Number [facility] [address] [place] [address] documented in this encounter Visit Diagnoses Diagnosis Need for hepatitis C screening test Special screening examination for other specified viral diseases Type 2 diabetes mellitus without complication, with long-term current use of insulin (HCC) documented in this encounter Care Teams Deputy K 9 Relationship Specialty Start Date End Date Nicole Padron MD [address] [facility] [place] [place] [address] PCP - General Family Medicine 10/28/24 documented as of this encounter
--- OUTSIDE RECORDS SUMMARY | 2025-08-03 11:30 | XMS_ITS | Encounter Summary ---
Author Organization [facility] Address [address] [place] [address] Care Team Providers Care Segment Assembler Name Role Phone Nicole Padron MD Primary Care Provider [phone] Encounter Details Date Type Department Care Team (Late Contact Info) Description 03/30/2025 Orders Only [address] [phone] Nicole Padron MD [address] [place] [address] Social History Tobacco Use Types Packs/Day Years [...] AM EDT CPE - Comprehensive Physical Exam [address] [phone] Bc Buckley, MAXIMO [address] [place] [address] CPE documented as of this encounter Goals [...] of this encounter Procedures * Due to [place] [employer] law, this organization might not be sharing negative HIV tests. Procedure Name Priority Date/Time Associated Diagnosis Comments CULTURE, URINE, ROUTINE Routine 03/30/2025 12:26 PM EDT Dysuria URINALYSIS, COMPLETE INCLUDES DIPSTICK AND MICROSCOPIC Routine 03/30/2025 12:26 PM EDT Dysuria documented in this encounter Results * Due to [place] [employer] law, this organization might not be sharing [...] 1:20 AM EDT Narrative Resulting Agency Comment [id number] Nicole Padron MD LAB SAME DAY RESULT Final Result [facility] [address] [place] [address] * (ABNORMAL) CULTURE, URINE, ROUTINE (03/30/2025 12:26 PM EDT) Bacteria culture (Urine) SEE NOTE(A) [facility] Comment: CULTURE, URINE, ROUTINE Micro Number: [id number] Test Status: Final Specimen Source: Not given [...] 1:20 AM EDT Narrative Resulting Agency Comment [id number] Nicole Padron MD LABORATORY Final Result [facility] [address] [place] [address] documented in this encounter Visit Diagnoses Diagnosis Dysuria documented in this encounter Care Teams Segment Assembler Relationship Specialty Start Date End Date Nicole Padron MD [address] [facility] [place] [address] PCP - General Family Medicine 10/28/24 documented as of this encounter
--- OUTSIDE RECORDS SUMMARY | 2025-08-03 11:30 | XMS_ITS | Continuity of Care Document ---
Author Organization [facility] Address [address] [place] [address] Phone [phone] Social History Type Date Description Comments Sex Female Sex Unknown Medical Devices Description No Information Available Encounters Description No Information Available Assessments Description No Information Available Plan of Treatment No Information Available Functional Status Description No Information Available Mental Status Description No Information Available Referrals Description No Information Available
== END 2025-08-03 10:12 | disposition home or self-care (01) ==
LOC: HO.HOP 09:09
PROVIDERS: PCP Family Medicine; Visit Provider Counselor Mental Health
DX: F90.2 Attention-deficit hyperactivity disorder, combined type (principal); F41.0 Panic disorder [episodic paroxysmal anxiety]; F32.A Depression, unspecified
CPT/HCPCS: 90837